=== PATIENT | male | born 1995 | race African-American/Black ===

== ENCOUNTER 2019-12-06 05:30 | Emergency (ER) | payer MEDICAID, SELFPAY ==
[2019-12-06 05:31] VITALS: BP 141/84; PULSE 118; RESP 20; TEMP 36.5; O2SAT 97; BMI 19.8
--- NOTE | 2019-12-06 05:32 | ED.VIS.GEN ---
History of Present Illness Chief Complaint: Overdose Informant: Patient Narrative: Stated he accidentally overdosed on a Percocet 30 he was given 2 doses of Narcan for agonal respirations. He then woke up and was combative. Brought in for further evaluation. Denies any other illicit drug use. Denies any alcohol usage. He is apologetic. Current severity is resolved. That was severe however. Past Medical History Primary Care Physician: NOT,DEFINED [Primary Care Provider] - Prior records reviewed: Yes Past Medical History: - - Reviewed Surgical History: - - Reviewed Alcohol: None Drugs: - - Occasional Percocet Review of Systems General: Denies: Chills, Fever, Sweats Eyes: Denies: Visual changes - bilaterally, Diplopia ENT: Denies: Rhinorrhea, Sore throat Cardiovascular: Denies: Chest pain, Palpitations Respiratory: Denies: Dyspnea, Cough, Dyspnea on exertion Gastrointestinal: Denies: Abdominal pain, Nausea, Vomiting, Diarrhea, Melena, Hematochezia Genitourinary: Denies: Dysuria, Hematuria, Frequency Musculoskeletal: Denies: Back pain, Extremity Pain Skin: Denies: Rash, Wounds Neurological: Denies: Headache, Weakness, Numbness Physical Exam General: Well nourished, Well developed, No Acute Distress Head: Normocephalic, Atraumatic Eyes: Perrl, EOMI ENT: Moist mucous membranes, No rhinorrhea Neck: Supple, Nontender Cardiovascular: Regular rate, No murmurs, Tachycardia Respiratory: No distress, CTA bilaterally, Chest nontender Abdomen: Soft, Nontender, Nondistended, Normal bowel sounds Back: Nontender, Normal Inspection Extremities: Nontender, No edema Skin: Normal color, No rash Neurological: Alert, Oriented x3, Cranial nerves II-XII grossly intact, Normal Strength, Normal Sensation Psychological: Normal affect, Normal Mood Diagnostic/Tx/Re-eval - Medical Decision Making Can reverses narcotic overdose. He will be monitored and discharged upon sobriety ED Disposition - Plan for ED Patient: Disposition: Home or Assisted Living Diagnosis: Narcotic overdose Instructions: ED Overdose Opiate Referrals: [facility] [STAFF PHYSICIAN] -
[2019-12-06 05:36] VITALS: RESP 18
[2019-12-06 05:55] VITALS: O2SAT 92
--- NOTE | 2019-12-06 05:55 | ED.RN ---
PT TELLS RN THAT HE HASN'T TAKEN ANY MEDIATIONS ONE MINUTE THEN STATES HE DIDN'T MEAN TO DO IT.
[2019-12-06 07:51] VITALS: BP 110/69; PULSE 107; RESP 18; O2SAT 95
[2019-12-06 09:18] VITALS: BP 108/62; PULSE 101; RESP 18; O2SAT 96
--- NOTE | 2019-12-06 10:53 | ED.RN ---
TALKED WITH PT MOTHER ON THE PHONE. SHE WILL BE ENROUTE TO FRONT CLERK-PT AWAKE DRINKING A POP
[2019-12-06 11:25] VITALS: BP 98/42; PULSE 100; RESP 18; O2SAT 100
== END 2019-12-06 11:27 | disposition home or self-care (01) ==
LOC: ED 10:59
PROVIDERS: Emergency Provider Emergency Medicine
DX: T40.2X1A Poisoning by other opioids, accidental (unintentional), initial encounter (principal); Y92.9 Unspecified place or not applicable
CPT/HCPCS: 99285; J7030; A4216

== ENCOUNTER → 2020-02-01 20:57 | Emergency (ER) | payer MEDICAID, SELFPAY ==
[2020-02-01 20:57] VITALS: BP 156/100; PULSE 116; RESP 28; TEMP 36.4; O2SAT 99; BMI 19.1
--- NOTE | 2020-02-01 21:02 | ED.DCSUM_ITS ---
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 Location: Unknown Current Severity: Mild Maximum Severity: Severe Worsened by: Ejected illicit drugs Relieved by: Improved with Narcan Associated Symptoms: Patient has shakes Narrative: Patient is 24-year-old male who admits to IV drug use for approximate 1 year. He denies history of HIV. He has been administered Narcan 3 times prior to today. He denies headache. Eyes visual, ocular auditory symptoms. Nuys neck pain. He denies history of rheumatic fever, heart murmur or SBE. He denies any infection at injection sites. He denies nausea, vomiting diarrhea. He was offered detox/help. He states he would think about it. Prior similar symptoms: Yes Recent Illness/Hospitalization: Yes - Past Medical History (1) Opiate abuse, continuous Status: Acute Past Medical History - Allergies and Home Meds Allergies/Adverse Reactions: Allergies No Known Allergies Allergy (Verified 02/01/20 21:03) Primary Care Physician: Care Physician,No Primary [Primary Care Provider] - Prior records reviewed: Yes Surgical History: no surgical history, - - Reviewed Lives: Alone Smoking Status: Current every day smoker Drugs: Heroin Review of Systems General: Reports: Chills, Malaise. Denies: Fever, Subjective, Sweats, Weight loss Eyes: Denies: Visual changes - bilaterally, Blurred Vision - bilaterally ENT: Denies: Rhinorrhea, Sore throat Cardiovascular: Denies: Chest pain, Palpitations Respiratory: Denies: Dyspnea, Cough, Dyspnea on exertion Gastrointestinal: Reports: Abdominal pain, Nausea. Denies: Vomiting, Diarrhea Genitourinary: Denies: Dysuria, Hematuria, Frequency Musculoskeletal: Denies: Myalgias, Arthralgias, Neck pain, Back pain, Swelling, Extremity Pain Skin: Denies: Rash, Wounds Neurological: Denies: Headache, Weakness Hematologic: Denies: Easy bruising, Easy bleeding Physical Exam Inital Vital Signs reviewed: Yes General: Well nourished, Well developed, - - Patient is restless. Head: Normocephalic, Atraumatic Eyes: Perrl, EOMI. Negative for: Pale conjunctiva, Scleral icterus ENT: Moist mucous membranes, Sinus tenderness Neck: Supple, Nontender, No lymphadenopathy Cardiovascular: Regular rate, Regular rhythm, No murmurs, Normal S1 Respiratory: No distress, CTA bilaterally, Chest nontender Rectal: Deferred Back: Nontender, Normal Inspection Extremities: Nontender, No edema Skin: Normal color, No rash Neurological: Alert, Oriented x3, Cranial nerves II-XII grossly intact, Normal Strength, Normal Sensation Psychological: Agitated Diagnostic/Tx/Re-eval - Medical Decision Making We will observe patient for 60 minutes. He will placed on the monitor. Will discuss outpatient treatment versus inpatient treatment if he is willing. I was informed by nursing staff his respirations decreased to 5. Verbal order was given for additional dose of Narcan. He did not desaturate. Will observe for an additional hour. Job either Patient was reassessed at 2310. Respiratory rate is 16. Pulse ox 100%. He was asleep. He awoke with gentle tactile stimulus. He declined detox. We will give him [facility]. ED Disposition - Plan for ED Patient: Disposition: Home or Assisted Living Diagnosis: Opiate or related narcotic overdose Instructions: ED Abuse Narcotic, ED Overdose Opiate Referrals: Care Physician,No Primary [Primary Care Provider] - [facility] [STAFF PHYSICIAN] - As soon as possible
--- NOTE | 2020-02-01 21:15 | ED.RN ---
MOTHER CALLED PER PT REQUEST, PT GAVE THIS RN PERMISSION TO TELL MOTHER REASON FOR VISIT.
[2020-02-01] MEDS: Naloxone 2 MG/2 ML Syringe NS (21:50)
== END | disposition home or self-care (01) ==
LOC: ED 23:15
PROVIDERS: Emergency Provider Emergency Medicine
DX: T40.601A Poisoning by unspecified narcotics, accidental (unintentional), initial encounter (principal); R10.9 Unspecified abdominal pain; R11.0 Nausea; Y92.9 Unspecified place or not applicable; F17.200 Nicotine dependence, unspecified, uncomplicated
CPT/HCPCS: 99283; 99285

== ENCOUNTER 2020-02-26 22:22 | Inpatient (IN) | payer MEDICAID, SELFPAY ==
[2020-02-01 20:57] VITALS: BMI 19.1
[2020-02-26 22:23] VITALS: BP 135/95; PULSE 150; RESP 15; TEMP 36.3; O2SAT 100; BMI 19.9
[2020-02-26 22:55] VITALS: BP 123/81; PULSE 143; RESP 20; TEMP 37.5; O2SAT 100
[2020-02-26] MEDS: 0.9% Normal Saline 1,000 ML 999 ML IV (23:00)
[2020-02-26] MEDS: Acetaminophen 325 MG Tablet 650 MG PO (23:10)
[2020-02-26 23:33] LABS: Absolute Lymphocyte Count 2.94 X10^3/uL (0.83-4.51); Absolute Neutrophil Count 8.4 X10^3/uL (2.0-7.7); Basophil# 0.02 X10^3/uL; Basophil% 0.2 % (0-1); Eosinophil# 0.09 X10^3/uL; Eosinophils% 0.7 % (0-5); Hemoglobin 11.4 g/dL (13.0-16.5); Lymphocyte # 2.94 X10^3/ul (4.0); Lymphocyte % 23.8 % (19-41); Mean Corp Hgb Conc 31.7 g/dL (32-36); Mean Corpuscular Hgb 26.7 pg (27.0-32.0); Mean Corpuscular Volume 84.3 fL (80-94); Monocyte# 0.75 X10^3/uL; Monocyte% 6.1 % (0-10); NRBC Flagged by Analyzer 0 % (0-5); Neutrophil # 8.42 X10^3/uL (2.7-7.7); Neutrophil % 68.1 % (47-70); Platelet Count 347 K/mm3 (150-450); RBC Distribution Width CV 13.6 % (11.6-14.6); RBC Distribution Width SD 42.3 fl (35.1-43.9); Red Blood Count 4.27 M/mm3 (4.6-6.2); White Blood Count 12.4 K/mm3 (4.4-11.0)
[2020-02-26 23:35] LABS: ALB/GLOB Ratio 0.6 RATIO (0.9-2.4); AST(SGOT) 13 U/L (15-37); Alanine Aminotransfer ALT/SGPT 25 U/L (16-61); Albumin, Serum 3.2 g/dL (3.2-5.0); Alkaline Phosphatase 108 U/L (45-117); Anion Gap 7 (5-15); BUN 12 mg/dL (7-18); BUN/Creat Ratio 10.9 RATIO (10-20); Calcium,Total 9.3 mg/dL (8.5-10.1); Chloride 99 mmol/L (98-107); EST Glomerular Filtration Rate 87 mL/min (>60); Est Glom Filt Rate - Afr Amer 105 mL/min (>60); Estimated Creatinine Clearance 89.69 ml/min; Globulin 5.1 g/dL (2.2-4.2); Glucose 129 mg/dL (74-106); Potassium 3.6 mmol/L (3.5-5.1); Protein, Total 8.3 g/dL (6.4-8.2); Sodium Level 136 mmol/L (136-145)
[2020-02-26 23:38] LABS: Lactic Acid 1.6 mmol/L (0.4-1.9)
[2020-02-26] MEDS: Vancomycin IV 1,000 MG/200 ML BAG 200 MG IV (23:51)
[2020-02-26] MEDS: HYDROmorphone 1 MG/ML Syringe IV (23:51)
[2020-02-26 23:53] VITALS: BP 126/84; PULSE 122; RESP 17; RESP 18; TEMP 37.3; O2SAT 100; O2SAT 98
[2020-02-27] VITALS (19 sets, daily range): BP systolic 91–139; BP diastolic 51–99; PULSE 64–122; RESP 14–18; TEMP 36.5–37.4; O2SAT 98–100; BMI 18.7; BMI 18.8
[2020-02-27 00:01] LABS: Prothrombin Time (Protime)PT. 13.1 SECONDS (11.7-14.9)
[2020-02-27 00:02] LABS: Partial Thromboplast Time 30.4 Seconds (24.1-36.2)
--- NOTE | 2020-02-27 00:10 | ED.DCSUM_ITS ---
History of Present Illness Chief Complaint: Abscess Narrative: Patient presenting for evaluation secondary to a right forearm abscess. Patient does have a history of IV drug abuse. Patient states that he does not inject into his right arm as he is right-handed. Patient's last injection was couple days ago. He states that over the course of the last 3 days or so he has developed an abscess on the volar portion of his right forearm. Swelling is progressively gotten worse, now it is associated with moderate pain. Pain is worse with palpation and movement. Sharp. He denies any constitutional symptoms such as fever. He denies any chest pain. Denies any shortness of breath. Review of systems otherwise negative. Past Medical History - Allergies and Home Meds Allergies/Adverse Reactions: Allergies No Known Allergies Allergy (Verified 02/26/20 22:25) Primary Care Physician: Care Physician,No Primary [Primary Care Provider] - Prior records reviewed: Yes Past Medical History: - - History of IV drug abuse Surgical History: no surgical history, - - Reviewed Lives: With Family Smoking Status: Current every day smoker Alcohol: Occasional Drugs: Heroin Review of Systems All systems negative except as indicated General: Denies: Chills, Fever, Sweats Eyes: Denies: Visual changes - bilaterally, Diplopia ENT: Denies: Rhinorrhea, Sore throat Cardiovascular: Denies: Chest pain, Palpitations Respiratory: Denies: Dyspnea, Cough, Dyspnea on exertion Gastrointestinal: Denies: Abdominal pain, Nausea, Vomiting, Diarrhea, Melena, Hematochezia Genitourinary: Denies: Dysuria, Hematuria, Frequency Musculoskeletal: Denies: Back pain, Extremity Pain Skin: Reports: - - Abscess and rash on the right forearm Neurological: Denies: Headache, Weakness, Numbness Physical Exam Vital Signs/Narrative: Vital Signs Temp Pulse Resp BP Pulse Ox 02/27/20 00:06 99.1 F 02/26/20 23:53 99.1 F 122 H 18 126/84 H 100 02/26/20 22:55 99.5 F H 143 H 20 H 123/81 H 100 02/26/20 22:23 97.4 F L 150 H 15 135/95 H 100 Inital Vital Signs reviewed: Yes Right Forearm: - - Examination of the right forearm shows a sizable area of fluctuance over the radial portion of the mid forearm with surrounding erythema. No lymphangitic streaking. Tenderness is noted in the area. Induration surrounding the fluctuance is noted. No subcutaneous emphysema. Normal range of motion Right Hand: - - Bilaterally no evidence of splinter hemorrhages, [place] nodes, or [place] lesions General: Well nourished, Well developed Head: Normocephalic, Atraumatic Eyes: Perrl, EOMI ENT: No Trauma, Moist Mucous Membranes Neck: Nontender, Full ROM Cardiovascular: Regular rhythm, Tachycardia, Murmur, - - 1 out of 6 systolic flow murmur noted. 2+ radial pulses. Respiratory: No distress, CTA bilaterally, Chest nontender Abdomen: Soft, Nontender, Nondistended, Normal bowel sounds Skin: Normal color Neurological: Alert, Oriented x3, Cranial nerves II-XII grossly intact, Normal Strength, Normal Sensation Psychological: Normal affect Diagnostic/Tx/Re-eval Laboratory Data 02/26/20 02/26/20 02/26/20 23:00 23:00 23:00 WBC 12.4 H RBC 4.27 L Hgb 11.4 L Hct 36.0 L MCV 84.3 MCH 26.7 L MCHC 31.7 L RDW Std Deviation 42.3 RDW Coeff of Sohail 13.6 Plt Count 347 MPV 10.0 Immature Gran % (Auto) 1.100 H Neut % (Auto) 68.1 Lymph % (Auto) 23.8 Fisher % (Auto) 6.1 Eos % (Auto) 0.7 Baso % (Auto) 0.2 Absolute Neuts (auto) 8.4 H Absolute Lymphs (auto) 2.94 Nucleated RBC % 0 PT INR APTT Sodium 136 Potassium 3.6 Chloride 99 Carbon Dioxide 30.0 Anion Gap 7 BUN 12 Creatinine 1.10 Estim Creat Clear Calc 89.69 Est GFR (MDRD) Af Amer 105 Est GFR (MDRD) Non-Af 87 BUN/Creatinine Ratio 10.9 Glucose 129 H Lactic Acid 1.6 Calcium 9.3 Total Bilirubin 0.20 AST 13 L ALT 25 Alkaline Phosphatase 108 Total Protein 8.3 H Albumin 3.2 Globulin 5.1 H Albumin/Globulin Ratio 0.6 L 02/26/20 23:37 WBC RBC Hgb Hct MCV MCH MCHC RDW Std Deviation RDW Coeff of Sohail Plt Count MPV Immature Gran % (Auto) Neut % (Auto) Lymph % (Auto) Fisher % (Auto) Eos % (Auto) Baso % (Auto) Absolute Neuts (auto) Absolute Lymphs (auto) Nucleated RBC % PT 13.1 INR 1.0 APTT 30.4 Sodium Potassium Chloride Carbon Dioxide Anion Gap BUN Creatinine Estim Creat Clear Calc Est GFR (MDRD) Af Amer Est GFR (MDRD) Non-Af BUN/Creatinine Ratio Glucose Lactic Acid Calcium Total Bilirubin AST ALT Alkaline Phosphatase Total Protein Albumin Globulin Albumin/Globulin Ratio - Medical Decision Making Patient presented secondary to a forearm abscess. He was profoundly tachycardic and likely septic, I was concerned for the possibility of bacteremia and possibly even endocarditis given his flow murmur, so a total of 3 blood cultures were obtained prior to the patient receiving vancomycin. Fluids and Tylenol were also ordered. Blood pressure remained stable, heart rate did decrease to the 120s. Lactic acid was negative white count was elevated 12. Patient's forearm was superficially incised and drained as noted in the procedure note. Patient will be admitted for further treatment of sepsis and potential further washout of the forearm. Procedures Procedure(s): Patient was consented for incision and drainage of the right forearm. The area was prepped with chlorhexidine was draped in sterile fashion. A total of 15 cc of 1% lidocaine was used in a field block and good anesthesia was obtained. A cruciate incision was made over top of the greatest area of fluctuance using care to not probe too deeply with the 11 blade. Copious amounts of purulent material were then expressed. Loculations were gently broken with hemostats. Wound was held open and irrigated with hemostats, and then absorbent dressing was placed over top. Patient tolerated this with minimal difficulty. ED Disposition - Plan for ED Patient: Disposition: Acute Care Hospital [facility] Diagnosis: Sepsis, Abscess of right forearm, IV drug abuse
--- NOTE | 2020-02-27 00:47 | PCM.HP.STD ---
Problem List (1) Abscess of right forearm Status: Acute (2) IV drug abuse Status: Acute (3) Sepsis Status: Acute (4) Opiate abuse, continuous Status: Acute History of Present Illness Date of Admission: 02/27/20 Chief Complaint: right forearm swelling The patient is a 24 year old M with a significant history of IV drug use and tobacco abuse who presents to the emergency department with swelling of his right forearm. His swelling developed about 2 to 3 days ago; and it has progressively been worsening. Associated with symptoms is pain around the swelling. He denies any fever or chills. At emergency department patient had an incision and drainage of the swelling. Past Medical History Medical History: Medical History (Last Reviewed 02/27/20 @ 01:[address] Edwin Lala MD) IV drug user (Acute) F19.90 Allergies No Known Allergies Allergy (Verified 02/26/20 22:25) Home Medications: Ambulatory Orders Medication Instructions Recorded NK 12/06/19 Surgical History: herniorrhaphy, - Lives: With Family Smoking Status: Current every day smoker Tobacco Use: Cigarettes Alcohol: Occasional Drugs: Heroin - *Family History Maternal History Items: - - Denies knowledge of maternal medical history Paternal History Items: - - Denies knowledge of paternal medical history Review of Systems Constitutional: Denies: Chills, Fever, Weight Change HEENT: Denies: Head Aches, Sinus Congestion, Sinus Drainage Cardiovascular: Denies: Chest Pain, Palpitations Respiratory: Denies: Cough, Shortness of breath at rest, Sputum production Gastrointestinal: Denies: Abdominal Pain, Nausea, Vomiting Genitourinary: Denies: Dysuria Musculoskeletal: Denies: Joint Pain, Joint Tenderness Skin: Denies: Rash, Wounds Neurological: Denies: Numbness, Tingling, Focal weakness Psychiatric: Denies: Anxiety, Depression, Homicidal Ideations, Suicidal Ideations Hematologic/ Lymphatic: Denies: Easy Bruising, Easy Bleeding VTE Information - Inpt Only VTE Present on Admission: No VTE Mechan Device Prophylaxis: None VTE Pharm Prophylaxis ordered?: No Reason prophylaxis not ordered:: Treatment Not Indicated - Low risk encourage ambulate. Patient Problems: Active and Suspected Problems Opiate abuse, continuous (Acute) Sepsis (Acute) Abscess of right forearm (Acute) IV drug abuse (Acute) - Physical Exam Vitals/I&O's: Vital Signs Temp Pulse Resp BP Pulse Ox 99.1 F 122 H 15 126/84 H 100 02/27/20 00:17 02/27/20 00:17 02/27/20 00:17 02/27/20 00:17 02/27/20 00:17 Oxygen Delivery Method Room Air Weight: 61.235 kg Body Mass Index (BMI) 19.9 Intake and Output for Last 24 Hours 02/25/20 02/26/20 02/27/20 23:59 23:59 23:59 Intake Total 1000 / 1000 Balance 1000 / 1000 General: Alert, Oriented x3, Cooperative HEENT: Atraumatic, PERRLA, EOMI, Normocephalic Neck: Supple, No JVD, Negative Carotid Bruits Lungs: Clear to auscultation, Normal air movement, No rhonchi, No wheeze, No rales Cardiovascular: Regular rate, No murmurs Abdomen: Bowel Sounds Present, Soft, Non Tender Extremities: No edema, Capillary Refill Less than 3 Seconds, - - Abscess to right forearm with Sanguinous drainage; tender. Skin: No rashes, No breakdown Musculoskeletal: No Tenderness to Palpation of Joints or Extremities Neurological: Cranial nerves II-XII grossly intact Psych/Mental Status: Normal Affect, Appropriate Laboratory Results 02/26/20 23:00: WBC 12.4 H, RBC 4.27 L, Hgb 11.4 L, Hct 36.0 L, MCV 84.3, MCH 26.7 L, MCHC 31.7 L, RDW Std Deviation 42.3, RDW Coeff of Sohail 13.6, Plt Count 347, MPV 10.0, Immature Gran % (Auto) 1.100 H, Neut % (Auto) 68.1, Lymph % (Auto) 23.8, [place] % (Auto) 6.1, Eos % (Auto) 0.7, Baso % (Auto) 0.2, Absolute Neuts (auto) 8.4 H, Absolute Lymphs (auto) 2.94, Nucleated RBC % 0 02/26/20 23:00: Sodium 136, Potassium 3.6, Chloride 99, Carbon Dioxide 30.0, Anion Gap 7, BUN 12, Creatinine 1.10, Estim Creat Clear Calc 89.69, Est GFR (MDRD) Af Amer 105, Est GFR (MDRD) Non-Af 87, BUN/Creatinine Ratio 10.9, Glucose 129 H, Calcium 9.3, Total Bilirubin 0.20, AST 13 L, ALT 25, Alkaline Phosphatase 108, Total Protein 8.3 H, Albumin 3.2, Globulin 5.1 H, Albumin/Globulin Ratio 0.6 L 02/26/20 23:00: Lactic Acid 1.6 02/26/20 23:37: PT 13.1, INR 1.0, APTT 30.4 Assessment/Plan All Active Problems Opiate abuse, continuous (Acute) Sepsis (Acute) Abscess of right forearm (Acute) IV drug abuse (Acute) IV drug user (Acute) Sepsis secondary to right forearm abscess Abscess was I&Ded at emergency department. However patient may need a further surgical intervention of the area. Will order CT of right forearm. Vancomycin was given at the emergency department. Will start patient on vancomycin and cefazolin Blood culture obtained at the emergency department; follow Up follow-up Gram stain and wound culture of drainage from abscess. Lactic acid was normal. Trend CBC and BMP. Plastic surgery consult. Heart murmur ED doc reported murmur on examination. Likely a flow murmur in the setting of tachycardia. However in the setting of IV drug use echocardiogram ordered. Blood culture x3 was obtained in the emergency department. IV drug use Patient shoots heroin in methamphetamine. Declined Subutex for heroin withdrawal. Tobacco abuse Counseled Declined nicotine patch DVT prophylaxis Encouraged to ambulate. Inpatient E&M: 75502 Init Hosp L3
--- NOTE | 2020-02-27 01:15 | ECHOD_ITS ---
Reason For Study: Murmur, R/O Endocarditis Procedure This was a 2D Doppler, Color Flow transthoracic echocardiogram. Exam performed portable in patient room. Left Ventricle Normal LV size. Left ventricular systolic function is lower limits of normal. The estimated ejection fraction is 53 %. No regional wall motion abnormalities noted. Right Ventricle Normal RV size. Normal systolic function. Atria Normal left atrium. Normal right atrium. Mitral Valve Normal mitral valve. Tricuspid Valve Normal tricuspid valve. Trivial tricuspid valve insufficiency. Aortic Valve Normal aortic valve. Trisinus/trileaflet aortic valve. Pulmonic Valve Normal pulmonic valve. Great Vessels Normal aortic root. The pulmonary artery is normal size. Normal inferior vena cava. Pericardium/Pleural No pericardial effusion. MMode/2D Measurements & Calculations LVIDd: 4.3 cm IVSd: 1.0 cm Ao root diam: 2.5 cm LVIDs: 2.7 cm LVPWd: 1.2 cm LA dimension: 2.7 cm RVDd: 3.5 cm FS: 36.5 % LAV(MOD-sp4): 26.3 ml LA A4 area: 12.8 cm2 RA A4 area: 13.3 cm2 Time Measurements MV dec time: 0.26 sec Doppler Measurements & Calculations MV E max bharath: 87.6 cm/sec Lat Peak E' Bharath: 16.9 cm/sec Med Peak E' Bharath: 11.4 cm/sec MV A max bharath: 65.7 cm/sec E/E' lat: 5.2 E/E' med: 7.7 MV E/A: 1.3 MV V2 max: 128.8 cm/sec MV P1/2t max bharath: 128.8 cm/sec Ao V2 max: 165.2 cm/sec MV max P.6 mmHg MV P1/2t: 75.5 msec Ao max P.9 mmHg MV V2 mean: 55.9 cm/sec MV dec slope: 499.4 cm/sec2 MV mean P.6 mmHg MVA(P1/2t): 2.9 cm2 MV V2 VTI: 35.1 cm LV V1 max: 143.4 cm/sec PA V2 max: 97.3 cm/sec LV V1 max P.2 mmHg Interpretation Summary Normal LV size. Left ventricular systolic function is lower limits of normal. The estimated ejection fraction is 53 %. Structurally normal valves. There is no evidence of a mass or vegetation. This does not rule out endocarditis. Ordering Physician: Edwin Lala Referring Physician: Edwin Lala Performed By: Vincent Wagoner RCS
--- NOTE | 2020-02-27 01:15 | CT_ITS ---
HISTORY: MID RT FOREARM CELLULITIS VS ABSCESS,PAIN RT FOREARM X 2-3 DAYSHX:HEP C,IV DRUG USE TECHNIQUE: CT of the right forearm was performed without and with 100 mL Isovue-370 contrast. 2D reformats were performed by the technologist. Number of images including paperwork: [phone]. A radiation dose optimization technique was used for this scan. COMPARISON: None FINDINGS: BONES: No acute fracture. JOINTS: No subluxation. SOFT TISSUES: Diffuse soft tissue edema. Rim-enhancing fluid collection with overlying skin defect is noted in the soft tissues of the mid forearm along the radial aspect measuring 4 x 1.7 x 3.8 cm with overlying skin defect. Adjacent skin thickening and stranding. FOREIGN BODY: No radiopaque foreign body. CT/Extremity Upper W/WO Contrast IMPRESSION: Rim-enhancing fluid collection in the radial aspect of the midforearm concerning for abscess. Surrounding skin thickening and stranding consistent with cellulitis. Diffuse soft tissue edema elsewhere in the right forearm. Individualized dose optimization techniques were used for this CT. at 0505 Reported and signed by: Sonia Bedoya MD Electronically Signed: Sonia Bedoya MD at 5:05 EST Tel , Service support ,
[2020-02-27] MEDS: 0.9% Normal Saline 1,000 ML 75 ML IV (01:40)
[2020-02-27] MEDS: Cefazolin 2 GM in 0.9% Normal Saline 100 ML IV ×4 (01:41→22:20)
--- NOTE | 2020-02-27 01:51 | PCM.RX.CS ---
Consult Pharmacy has been consulted to manage selected antiobiotic: Vancomycin Type of Consult: New start Suspected Infection: Sepsis Labs: Sodium 136 mmol/L (136-145) 02/26/20 23:00 Potassium 3.6 mmol/L (3.5-5.1) 02/26/20 23:00 Chloride 99 mmol/L (98-107) 02/26/20 23:00 Carbon Dioxide 30.0 mmol/L (21.0-32.0) 02/26/20 23:00 Anion Gap 7 (5-15) 02/26/20 23:00 BUN 12 mg/dL (7-18) 02/26/20 23:00 Creatinine 1.10 mg/dL (0.70-1.30) 02/26/20 23:00 Est GFR (MDRD) Af Amer 105 mL/min (>60) 02/26/20 23:00 Est GFR (MDRD) Non-Af 87 mL/min (>60) 02/26/20 23:00 BUN/Creatinine Ratio 10.9 RATIO (10-20) 02/26/20 23:00 Glucose 129 mg/dL (74-106) H 02/26/20 23:00 Estimated Creatinine Clearance: 84.36 Goal Trough: 10-15 mcg/mL Pharmacy Plan for Drug Dosing: Pharmacy Service will continue to monitor and adjust dosing as required. Medications Vancomycin HCl 750 mg/ Sodium (Chloride) 265 mls @ 250 mls/hr IV Q12H LAURA Discontinued Medications Vancomycin IV Pharmacy to Dose (1 ea/ Sodium Chloride) 500 mls @ 250 mls/hr IV X1 PRN; Protocol PRN Reason: Rx to Dose Follow-Up Labs: Trough Vancomycin Labs to be done on [date and time ordered]: 02/27 @ 1136
[2020-02-27 05:33] LABS: Absolute Lymphocyte Count 2.73 X10^3/uL (0.83-4.51); Absolute Neutrophil Count 6.9 X10^3/uL (2.0-7.7); Basophil# 0.02 X10^3/uL; Basophil% 0.2 % (0-1); Eosinophil# 0.14 X10^3/uL; Eosinophils% 1.3 % (0-5); Hematocrit 33.9 % (40-54); Hemoglobin 10.8 g/dL (13.0-16.5); Lymphocyte # 2.73 X10^3/ul (4.0); Lymphocyte % 25.6 % (19-41); Mean Corp Hgb Conc 31.9 g/dL (32-36); Mean Corpuscular Hgb 27.3 pg (27.0-32.0); Mean Corpuscular Volume 85.8 fL (80-94); Mean Platelet Vol. 10.1 fl (6.2-12.0); Monocyte# 0.83 X10^3/uL; Monocyte% 7.8 % (0-10); NRBC Flagged by Analyzer 0 % (0-5); Neutrophil # 6.91 X10^3/uL (2.7-7.7); Neutrophil % 64.7 % (47-70); Platelet Count 296 K/mm3 (150-450); RBC Distribution Width CV 13.6 % (11.6-14.6); RBC Distribution Width SD 43.2 fl (35.1-43.9); Red Blood Count 3.95 M/mm3 (4.6-6.2); White Blood Count 10.7 K/mm3 (4.4-11.0)
[2020-02-27 05:59] LABS: Anion Gap 6 (5-15); BUN 9 mg/dL (7-18); BUN/Creat Ratio 10.6 RATIO (10-20); Calcium,Total 8.4 mg/dL (8.5-10.1); Chloride 102 mmol/L (98-107); Creatinine, Serum 0.85 mg/dL (0.70-1.30); EST Glomerular Filtration Rate 117 mL/min (>60); Est Glom Filt Rate - Afr Amer 141 mL/min (>60); Estimated Creatinine Clearance 109.18 ml/min; Glucose 95 mg/dL (74-106); Potassium 3.9 mmol/L (3.5-5.1); Sodium Level 134 mmol/L (136-145)
--- NOTE | 2020-02-27 07:35 | PCM.PN.BLA ---
Progress Note 24-year-old male with past medical history of IV drug use, nicotine dependence who was admitted with right forearm swelling and found to have an abscess. CT of the upper extremity showed a rim-enhancing fluid collection in the radial aspect of the midforearm concerning for abscess Patient's vitals has been stable No fevers. WBC count improved from 12.4-10.7 On IV vancomycin and cefazolin Going for surgery today. STROKE Vital Signs/Narrative: Vital Signs Pulse 02/27/20 04:17 101 H
--- NOTE | 2020-02-27 09:18 | PCM.CONS.GEN ---
Reason for Consult Date of Consultation: 02/27/20 Reason for Consultation: IV drug abuse abscess right volar radial mid forearm. REFERRING PHYSICIAN: Dr. Lala. RADIOTELEGRAPHIST: Dr. Valerio. History of Present Illness: The patient is a 24 year old M with a significant history of IV drug use and tobacco abuse who presents to the emergency department with increased pain and swelling of his right forearm. His swelling developed about 2 to 3 days ago; and it has progressively been worsening. He denies any fever or chills. Patient is right hand dominant. In the ED, an incision and drainage was performed. He was placed on Vancomycin and Cefazolin. A CT was done which showed rim-enhancing fluid collection in the radial aspect of the midforearm concerning for abscess. Surrounding skin thickening and stranding consistent with cellulitis. Diffuse soft tissue edema elsewhere in the right forearm. I was asked to evaluate this patient for surgical options for treatment. Past Medical History Past Medical History (Chronic Problems): Chronic Problems Smoker (Chronic) Medical History: Medical History (Last Reviewed 02/27/20 @ 01:[address] Edwin Lala MD) IV drug user (Acute) F19.90 Allergies No Known Allergies Allergy (Verified 02/27/20 01:48) Home Medications: Ambulatory Orders Medication Instructions Recorded NK 12/06/19 Surgical History: herniorrhaphy, - Lives: With Family Smoking Status: Current every day smoker Tobacco Use: Cigarettes Alcohol: Occasional Drugs: Heroin, - - Methamphetamine - *Family History Maternal History Items: - - Denies knowledge of maternal medical history Paternal History Items: - - Denies knowledge of paternal medical history Review of Systems Comment: Constitutional: Denies: Chills, Fever, Weight Change. HEENT: Denies: Head Aches, Sinus Congestion, Sinus Drainage. Cardiovascular: Denies: Chest Pain, Palpitations. Respiratory: Denies: Cough, Shortness of breath at rest, Sputum production. Gastrointestinal: Denies: Abdominal Pain, Nausea, Vomiting. Genitourinary: Denies: Dysuria. Musculoskeletal: Denies: Joint Pain, Joint Tenderness. Skin: Denies: Rash, Wounds. Neurological: Denies: Numbness, Tingling, Focal weakness. Psychiatric: Denies: Anxiety, Depression, Homicidal Ideations, Suicidal Ideations. Hematologic/ Lymphatic: Denies: Easy Bruising, Easy Bleeding Patient Problems: Active and Suspected Problems Opiate abuse, continuous (Acute) Sepsis (Acute) Abscess of right forearm (Acute) IV drug abuse (Acute) - Physical Exam Vitals/I&O's: General: Alert, Oriented x3, Cooperative HEENT: PERRLA, EOMI. Neck: Supple, Nontender. No cervical adenopathy. Lungs: Clear to auscultation. Cardiovascular: Regular rate, regular rhythm. Abdomen: Soft, Nondistended. Extremities: Mild swelling right forearm. On the volar radial aspect mid right forearm is an area of induration and tenderness. Previous I&D noted. Purulent drainage noted. Measures 5 x 6 cm. No sensory deficits in his fingers. Radial pulses are palpable. No axillary adenopathy. Fingers are warm with good capillary refill. Patient is right hand dominant. Neurological: Cranial nerves II-XII grossly intact Psych/Mental Status: Normal Affect, Appropriate Vital Signs Temp Pulse Resp BP Pulse Ox 97.7 F L 105 H 16 91/63 100 02/27/20 08:02 02/27/20 08:30 02/27/20 08:02 02/27/20 08:02 02/27/20 08:02 Oxygen Delivery Method Room Air Weight: 126 lb 15.78 oz Body Mass Index (BMI) 18.7 Intake and Output for Last 24 Hours 02/25/20 02/26/20 02/27/20 23:59 23:59 23:59 Intake Total 1833.75 / 1833.75 Balance 1833.75 / 1833.75 Laboratory Results 02/26/20 23:00: WBC 12.4 H, RBC 4.27 L, Hgb 11.4 L, Hct 36.0 L, MCV 84.3, MCH 26.7 L, MCHC 31.7 L, RDW Std Deviation 42.3, RDW Coeff of Sohail 13.6, Plt Count 347, MPV 10.0, Immature Gran % (Auto) 1.100 H, Neut % (Auto) 68.1, Lymph % (Auto) 23.8, [place] % (Auto) 6.1, Eos % (Auto) 0.7, Baso % (Auto) 0.2, Absolute Neuts (auto) 8.4 H, Absolute Lymphs (auto) 2.94, Nucleated RBC % 0 02/26/20 23:00: Sodium 136, Potassium 3.6, Chloride 99, Carbon Dioxide 30.0, Anion Gap 7, BUN 12, Creatinine 1.10, Estim Creat Clear Calc 89.69, Est GFR (MDRD) Af Amer 105, Est GFR (MDRD) Non-Af 87, BUN/Creatinine Ratio 10.9, Glucose 129 H, Calcium 9.3, Total Bilirubin 0.20, AST 13 L, ALT 25, Alkaline Phosphatase 108, Total Protein 8.3 H, Albumin 3.2, Globulin 5.1 H, Albumin/Globulin Ratio 0.6 L 02/26/20 23:00: Lactic Acid 1.6 02/26/20 23:37: PT 13.1, INR 1.0, APTT 30.4 02/27/20 04:55: WBC 10.7, RBC 3.95 L, Hgb 10.8 L, Hct 33.9 L, MCV 85.8, MCH 27.3, MCHC 31.9 L, RDW Std Deviation 43.2, RDW Coeff of Sohail 13.6, Plt Count 296, MPV 10.1, Immature Gran % (Auto) 0.400, Neut % (Auto) 64.7, Lymph % (Auto) 25.6, [place] % (Auto) 7.8, Eos % (Auto) 1.3, Baso % (Auto) 0.2, Absolute Neuts (auto) 6.9, Absolute Lymphs (auto) 2.73, Nucleated RBC % 0 02/27/20 04:55: Sodium 134 L, Potassium 3.9, Chloride 102, Carbon Dioxide 26.0, Anion Gap 6, BUN 9, Creatinine 0.85, Estim Creat Clear Calc 109.18, Est GFR (MDRD) Af Amer 141, Est GFR (MDRD) Non-Af 117, BUN/Creatinine Ratio 10.6, Glucose 95, Calcium 8.4 L Diagnostic Data Upper Extremity CT 02/27/20 01:15 IMPRESSION: Rim-enhancing fluid collection in the radial aspect of the midforearm concerning for abscess. Surrounding skin thickening and stranding consistent with cellulitis. Diffuse soft tissue edema elsewhere in the right forearm. Individualized dose optimization techniques were used for this CT. at 0505 Reported and signed by: Sonia Bedoya MD Electronically Signed: Sonia Bedoya MD at 5:05 EST Tel , Service support , Current Medications Acetaminophen (Acetaminophen 325 Mg Tablet) 650 mg PO Q6H PRN PRN PRN Reason: Pain Score 1-10/Temp > 100.7 F Sodium Chloride () 1,000 mls @ 75 mls/hr IV .[id number] LAURA Stop: 02/27/20 14:34 Last Infusion: 02/27/20 05:59 Dose: 75 mls/hr Documented by: Vancomycin IV Pharmacy to Dose (1 ea/ Sodium Chloride) 500 mls @ 250 mls/hr IV X1 PRN; Protocol PRN Reason: Rx to Dose Cefazolin Sodium 2 gm/ Sodium (Chloride) 110 mls @ 150 mls/hr IV Q8 LAURA Last Infusion: 02/27/20 05:59 Dose: Infused Documented by: Sodium Chloride () 250 mls @ 15 mls/hr IV .[id number] PRN PRN Reason: Saline Flush Sodium Chloride () 250 mls @ 15 mls/hr IV .[id number] PRN PRN Reason: Additional IVPB Infusion Vancomycin HCl (Vancomycin) 1,000 mg in 200 mls @ 200 mls/hr IV Q12H LAURA Melatonin (Melatonin 3 Mg Tablet) 3 mg PO QHS PRN PRN PRN Reason: INSOMNIA Nutritional Formula (Lactose Free) (Ensure Enlive 120 Ml Liquid) 120 ml PO 4X/DAY [facility] Last Admin: 02/27/20 08:04 Dose: Not Given Documented by: Ondansetron HCl (Ondansetron 4 Mg/2 Ml Vial) 4 mg IV Q8H PRN PRN PRN Reason: NAUSEA/VOMITING Sodium Chloride (0.9% Saline Lock 10 Ml Syringe) 10 - 40 ml IV UD PRN PRN Reason: SALINE FLUSH Assessment/Plan All Active Problems Methamphetamine abuse (Acute) Opiate abuse, continuous (Acute) Sepsis (Acute) Abscess of right forearm (Acute) IV drug abuse (Acute) IV drug user (Acute) 1. IV drug abuse abscess right volar radial mid forearm. 2. IV drug abuse with Heroin and Methamphetamine. 3. Opiate abuse. 4. IV drug user. 5. Sepsis. 6. Smoker. CT reviewed. Presence of an abscess right forearm. There may be muscle involvement. Continue Vancomycin and Cefazolin. Recommend operative intervention urgently today with surgical preparation right volar radial mid forearm with incision and drainage and excisional debridement IV drug abuse abscess. Will send tissue to Pathology for analysis and to Microbiology for culture. A positive culture will necessitate antibiotic therapy. With possible muscle involvement, there is concern about a possible necrotizing process. And he is right hand dominant. Surgery will be done under general anesthesia. Will leave the wound open and proceed with postop wound care with the VAC. After discharge will followup at the Wound Center. If there is a plateau in the healing process, can proceed with delayed closure with skin grafting. Anticipate increased metabolic demands from the infection. Will check a Prealbumin and encourage nutritional supplementation with protein to help the healing process. Patient understands that if the surgery is delayed 1-2 days, there is increased risk of a necrotizing process with muscle involvement that would increase the risk of stiffness and functional issues in his right hand and extremity which would be problematic since he is right hand dominant. Patient was informed of the risks and complications of the procedure including alternatives to surgery. These were discussed with the patient personally. Patient voices understanding and wishes to proceed. Some of the risks and complications that were discussed included but were not inclusive of failure to diagnose including symptom relief, pain, infection, numbness, stiffness, loss of digit, RSD (CRPS), need for further surgery, contracture, and wound healing problems. Encouraged patient to stop smoking as it may have deleterious effects on wound healing. Procedure Criteria Procedure Type: Elective COVID Risk Discussion: The surgeon/proceduralist and patient have discussed in detail the risk of exposure to and/or potential harm posed by the COVID-19 virus with having a surgery/procedure at this time versus the risk of delaying the surgery/procedure. It is not possible to know either the risk of delaying the surgery or procedure or chance of getting an infection with perfect accuracy, but a joint decision was made between the patient and the surgeon/proceduralist to proceed at this time with the scheduled surgery/procedure as indicated on the consent form. Inpatient E&M: 21198 Init Hosp L3 - -57 Modifier ICD-10 - L02.413, F19.10, F11.10, F15.10, F19.90, A41.9, F17.200
--- NOTE | 2020-02-27 09:55 | CASEMGMT ---
CANDELARIO HAWLEY Face to Face with patient for initial transition planning/care coordination assessment. RN MARLEEN introduced self and role at [facility]. Patient lying in bed, alert and oriented. Patient willing to participate in assessment and is able to answer all questions appropriately. Care providers, pharmacy, and demographics verified. Patient wishes to discharge home, will monitor for need for HHC pending wound care. Patient states he has no further needs or concerns at this time. CM to follow for discharge planning needs that may arise. PCP: No PCP, list provided to patient Specialists: None Preferred Pharmacy: [facility] Insurance: [facility] Prescription Benefit: yes Living Will/HPOA: none LNOK: Mother Living Arrangements: Patient lives with mother in a 2 story home with bed and bath on first floor. Patient states he is independent at home. Transportation: mother DME/HHC: patient denies DME or previous HHC. Disposition Plan: Patient to discharge home with family support and follow-up plans in place. Will monitor for need for HHC. Marleen MALLORY, RN, CM
--- NOTE | 2020-02-27 10:34 | CASEMGMT ---
Social work Note Pt has history of IV drug use. SW in to speak with pt. SW introduced self and role at [facility]. Pt is alert and orientated x3. Pt confirms the he uses drugs. Per H+P, pt uses heroin and meth. Pt states that he stopped using about 3 days ago. SW offered resources to pt. Pt denied. Pt states that he is already linked up with [facility]. Pt denied any MH history. Pt denied additional needs or concerns at this time. Marleen Paulson VIDEO SOFTWARE ENGINEER, WEBFED OFFSET PRESS OPERATOR
[2020-02-27] MEDS: Vancomycin IV 1,000 MG/200 ML BAG 200 MG IV ×2 (12:00→23:56)
--- NOTE | 2020-02-27 12:00 | ABS_PTH ---
PATIENT: MIKEY ROCHE LOC: MS3 U#:[id number] AGE/SX: 24/M ROOM: MS311 RE02/27/[address]: Dr. Rosalia Farah MD : 1995 BED: 1 DIS: 02/29/2020 SPEC #: [id number] RECD: 02/27/20 13:14 STATUS: ELAYNE KIM #: [id number] ARIADNA: 02/27/20 12:[address]: Sebastian Valerio DEPT: SURGICAL PATHOLOGY RECD BY: Anirudh Whitney ENTERED: 02/28/20 08:42 SP TYPE: Abscess OTHR DR: MD Dr. Edwin Bailey MD No Primary Care Phys Tissues: Skin of forearm, NOS Procedures: Special Stain Group I Surgery Specimen Level III AFB Stain (control) GMS Stain (control) HEADER OPERATION: Surgical preparation right forearm with incision and drainage PRE-OP DIAGNOSIS: Abscess of right forearm TISSUE SUBMITTED: Right forearm abscess MICROSCOPIC DIAGNOSIS Right forearm abscess: Pieces of skin with underlying tissue with acute and chronic inflammation and abscess formation. Special stains for acid fast bacilli and fungi are negative for organisms; matched controls are appropriate. XUAN:monica 02/29/20 MICROSCOPIC DESCRIPTION Slides are reviewed. GROSS DESCRIPTION Received in fixative is one container labeled with the patient's name and designated right forearm abscess. The specimen consists of two pieces of skin with underlying tissue measuring 5.5 x 2.5 x 2.5 cm and 11 x 1 cm and up to 1 cm in thickness. Sections do not reveal any mass lesion. Hydrometer Calibrator sections are submitted in two cassettes. / XUAN:monica 02/28/20 TC:2 CPT: 37631,25755
--- NOTE | 2020-02-27 12:19 | PCM.OPRPT ---
Report of Operation Date of Procedure: 02/27/20 Pre-Operative Diagnosis: 1. IV drug abuse abscess right volar radial mid forearm. 2. IV drug abuse with Heroin and Methamphetamine. 3. Opiate abuse. 4. IV drug user. 5. Sepsis. 6. Smoker. Post-Operative Diagnosis: Same. Surgery/Procedure Performed:: Surgical preparation right volar radial mid forearm with incision and drainage and excisional debridement IV drug abuse abscess (44 cm2). Description of Surgical Findings:: The patient is a 24 year old M with a significant history of IV drug use and tobacco abuse who presents to the emergency department with increased pain and swelling of his right forearm. His swelling developed about 2 to 3 days ago; and it has progressively been worsening. He denies any fever or chills. Patient is right hand dominant. In the ED, an incision and drainage was performed. He was placed on Vancomycin and Cefazolin. A CT was done which showed rim-enhancing fluid collection in the radial aspect of the midforearm concerning for abscess. Surrounding skin thickening and stranding consistent with cellulitis. Diffuse soft tissue edema elsewhere in the right forearm. I was asked to evaluate this patient for surgical options for treatment. Recommend operative intervention urgently today. Patient understands that if the surgery is delayed 1-2 days, there is increased risk of a necrotizing process with muscle involvement that would increase the risk of stiffness and functional issues in his right hand and extremity which would be problematic since he is right hand dominant. Patient was informed of the risks and complications of the procedure including alternatives to surgery. These were discussed with the patient personally. Patient voices understanding and wishes to proceed. Some of the risks and complications that were discussed included but were not inclusive of failure to diagnose including symptom relief, pain, infection, numbness, stiffness, loss of digit, RSD (CRPS), need for further surgery, contracture, and wound healing problems. Encouraged patient to stop smoking as it may have deleterious effects on wound healing. Size of defect right volar radial mid forearm - 8 x 5.5 x 1 cm. folder operator: None Type of Anesthesia:: General Specimen's removed: 1. IV drug abuse abscess right volar radial mid forearm to Pathology and Microbiology. 2. MRSA Wound DNA by PCR. Drains: None. Estimated Blood Loss (mL): 50 ml. Description of Procedure: Patient was taken to OR in supine position and was placed under general anesthesia. A tourniquet was placed. Will elevate it if there are bleeding issues. The right upper extremity was prepped and draped in the usual fashion. SCD's were placed for DVT prophylaxis. Perioperative antibiotics were given intravenously. For the procedure, I wore an N95 mask and wore proper eyewear protection. Using xylocaine with epinephrine, the abscess was infiltrated to help with postoperative pain relief. Using a scalpel, an incision was made around this abscess down into the subcutaneous tissue. Pus was seen. It was thickened. A lot of induration and fat necrosis was present. The infection extended down to the muscle and involved the muscle. Some of the muscle was excised and debrided along with the induration and fat necrosis. I palpated deep to the muscle and no additional pus was noted deep to the muscle. The muscles involved with the excisional debridement were the flexor carpi radialis and brachioradialis muscles. Tissue that was debrided was sent to Pathology for analysis and to Microbiology for culture. A positive culture will necessitate antibiotic therapy. A MRSA Wound DNA by PCR was also done. The wound was irrigated with saline. Hemostasis was obtained with electrocautery. The tourniquet did not need to be elevated as there were no bleeding issues during the surgery. The size of the defect after incision and drainage and excisional debridement was 8 x 5.5 x 1 cm or 44 cm2. The wound was dressed with Mepitel nonadherent dressing followed by Betadine gauze. This was followed by dry Kerlix gauze and ABD pads and a compression pretty wrap. Patient tolerated the procedure well and was sent to PACU in satisfactory condition. Patient will be sent upstairs for continued postop care. The VAC will be applied tomorrow. After discharge, he will followup at the Wound Center. Range of motion exercises will be encouraged to minimize stiffness. OT may be needed if stiffness develops for range of motion exercises, strengthening, and edema management. He will keep his right arm elevated during the initial postoperative period. If there is a plateau in the healing process, can proceed with delayed closure with skin grafting. Grafts/Implants Used: None. - Complications None. - Admit VTE Documentation VTE Present on Admission: No VTE Mechan Device Prophylaxis: SCD's VTE Pharm Prophylaxis ordered?: No Surgery Charges CPT - 42305 ICD-10 - S51.801A, L02.413, F19.10, F11.10, F15.10, F19.90, A41.9, F17.200 74905 L02.413, F19.10, F11.10, F15.10, F19.90, S51.801A, A41.9, F17.200
[2020-02-27 14:36] LABS: M R Staph aureus DNA By PCR Negative (Negative); Probe Check PASS; Specimen Processing Control PASS; Staph aureus DNA By PCR NEGATIVE (Negative)
[2020-02-28] VITALS (8 sets, daily range): BP systolic 107–131; BP diastolic 62–74; PULSE 69–92; RESP 16; TEMP 36.7–37.2; O2SAT 99–100
[2020-02-28] MEDS: Cefazolin 2 GM in 0.9% Normal Saline 100 ML IV ×3 (05:25→20:29)
[2020-02-28 07:31] LABS: Hematocrit 37.7 % (40-54); Hemoglobin 11.8 g/dL (13.0-16.5); Mean Corp Hgb Conc 31.3 g/dL (32-36); Mean Corpuscular Hgb 26.4 pg (27.0-32.0); Mean Corpuscular Volume 84.3 fL (80-94); Mean Platelet Vol. 10.1 fl (6.2-12.0); Platelet Count 338 K/mm3 (150-450); RBC Distribution Width CV 13.6 % (11.6-14.6); RBC Distribution Width SD 42.3 fl (35.1-43.9); Red Blood Count 4.47 M/mm3 (4.6-6.2); White Blood Count 6.4 K/mm3 (4.4-11.0)
[2020-02-28 08:00] LABS: Anion Gap 6 (5-15); BUN 8 mg/dL (7-18); BUN/Creat Ratio 9.5 RATIO (10-20); Calcium,Total 9.2 mg/dL (8.5-10.1); Chloride 105 mmol/L (98-107); Creatinine, Serum 0.85 mg/dL (0.70-1.30); EST Glomerular Filtration Rate 118 mL/min (>60); Est Glom Filt Rate - Afr Amer 142 mL/min (>60); Estimated Creatinine Clearance 109.18 ml/min; Glucose 96 mg/dL (74-106); Potassium 3.9 mmol/L (3.5-5.1); Prealbumin 9.8 mg/dL (20.0-40.0); Sodium Level 139 mmol/L (136-145)
--- NOTE | 2020-02-28 10:21 | NURSING ---
Pts GF called in requesting information on when patient would be released. Pt was not listed as a contact. Spoke with Sam who stated it was ok to give her information. GF updated on patients condition.
--- NOTE | 2020-02-28 11:01 | NURSING ---
wound photo: right arm
[2020-02-28] MEDS: Vancomycin IV 1,000 MG/200 ML BAG 200 MG IV (12:14)
[2020-02-28 12:24] LABS: Vancomycin, Trough Level 5.3 ug/mL (5.0-15.0)
[2020-02-28] MEDS: Acetaminophen 325 MG Tablet 650 MG PO (12:38)
[2020-02-28] MEDS: hydrOXYzine PAM 25 MG Capsule 50 MG PO ×2 (12:38→20:26)
--- NOTE | 2020-02-28 13:15 | CASEMGMT ---
RN CM updated by wound nurse that patient will need HHC at discharge for wound vac. RN CM in to discuss options with patient and agreeable to [facility]. RN MARLEEN sent referral to [facility] and awaiting call back.
--- NOTE | 2020-02-28 13:18 | PCM.RX.CS ---
Consult Pharmacy has been consulted to manage selected antiobiotic: Vancomycin Type of Consult: Follow-up Labs: Sodium 139 mmol/L (136-145) 02/28/20 07:00 Potassium 3.9 mmol/L (3.5-5.1) 02/28/20 07:00 Chloride 105 mmol/L (98-107) 02/28/20 07:00 Carbon Dioxide 28.0 mmol/L (21.0-32.0) 02/28/20 07:00 Anion Gap 6 (5-15) 02/28/20 07:00 BUN 8 mg/dL (7-18) 02/28/20 07:00 Creatinine 0.85 mg/dL (0.70-1.30) 02/28/20 07:00 Est GFR (MDRD) Af Amer 142 mL/min (>60) 02/28/20 07:00 Est GFR (MDRD) Non-Af 118 mL/min (>60) 02/28/20 07:00 BUN/Creatinine Ratio 9.5 RATIO (10-20) L 02/28/20 07:00 Glucose 96 mg/dL (74-106) 02/28/20 07:00 Vancomycin Trough 5.3 ug/mL (5.0-15.0) 02/28/20 11:48 Microbiology: Microbiology 02/27/20 12:27 Wound Abcess - Arm Right Gram Stain - Final 02/27/20 12:27 Wound Abcess - Arm Right Wound Culture - Preliminary No growth-Final to follow 02/26/20 23:48 Wound Abcess - Right Forearm Gram Stain - Final 02/26/20 23:48 Wound Abcess - Right Forearm Wound Culture - Preliminary Streptococcus group A 02/27/20 10:20 Mucosa - Nose SARS-CoV-2 Antigen (Rapid) - Final Goal Trough: 10-15 mcg/mL Pharmacy Plan for Drug Dosing: VANCOMYCIN LEVEL RECEIVED Current Vancomycin Dose: 1000mg IV Q12hr Number of Doses Received: 4 (3 prior to trough draw) Vancomycin Level: 5.3 Hours Since Last Dose:12 hr Renal Function: 0.85 Renal Function Trend: stable Lab/Micro: WCx = strep (no sens yet) Vancomycin Plan/Comments: Patient trough resulted in a value of 5.3 (drawn ~12hrs from last administered dose). Goal trough is 10-15. Will increase dose frequency and start Vancomycin 1000mg IV Q8hr. Trough draw prior to 4th dose of new regimen. Pending Level: 02/29/20 @1930 Pharmacy Service will continue to monitor and adjust dosing as required.
--- NOTE | 2020-02-28 14:38 | PCM.PN.HOSP ---
Patient Problems: Active and Suspected Problems Opiate abuse, continuous (Acute) Sepsis (Acute) Abscess of right forearm (Acute) IV drug abuse (Acute) Reason for Visit: Follow-up on right forearm abscess Subjective: Patient was seen and examined. No acute events. Denies fever or chills. Rest of ROS is negative. Vitals/I&O's: Vital Signs Temp Pulse Resp BP Pulse Ox 98.2 F 92 16 131/74 H 100 02/28/20 12:30 02/28/20 11:35 02/28/20 12:30 02/28/20 12:30 02/28/20 12:30 Oxygen Delivery Method Room Air Weight: 57.6 kg Body Mass Index (BMI) 18.7 Intake and Output for Last 24 Hours 02/26/20 02/27/20 02/28/20 23:59 23:59 23:59 Intake Total 3990.00 / 3990.00 710 / 710 Output Total 1800 / 1800 800 / 800 Balance 2190.00 / 2190.00 -90 / -90 General: Alert, Oriented x3, Cooperative, No apparent distress HEENT: Atraumatic, PERRLA, EOMI Neck: Supple Lungs: Clear to auscultation, Normal air movement Cardiovascular: Regular rate, Regular Rhythm, Normal S1, Normal S2, No murmurs Abdomen: Bowel Sounds Present, Soft, Non Tender, Non-Distended, No Hepato-splenomegaly Extremities: No edema, Tenderness - in RLE, dressing is intact, able to move his fingers, sensation is intact Skin: No rashes Musculoskeletal: No Tenderness to Palpation of Joints or Extremities Lymphatic: No Cervical, Supraclavicular, or Inguinal Adenopathy Neurological: Cranial nerves II-XII grossly intact, Neuro grossly intact Psych/Mental Status: Normal Affect, Appropriate Microbiology Past 72 Hours 02/27/20 12:27 Wound Abcess - Arm Right Gram Stain - Final 02/27/20 12:27 Wound Abcess - Arm Right Wound Culture - Preliminary No growth-Final to follow 02/26/20 23:48 Wound Abcess - Right Forearm Gram Stain - Final 02/26/20 23:48 Wound Abcess - Right Forearm Wound Culture - Preliminary Streptococcus group A 02/27/20 10:20 Mucosa - Nose SARS-CoV-2 Antigen (Rapid) - Final Laboratory Results 02/28/20 07:00: WBC 6.4, RBC 4.47 L, Hgb 11.8 L, Hct 37.7 L, MCV 84.3, MCH 26.4 L, MCHC 31.3 L, RDW Std Deviation 42.3, RDW Coeff of Sohail 13.6, Plt Count 338, MPV 10.1 02/28/20 07:00: Sodium 139, Potassium 3.9, Chloride 105, Carbon Dioxide 28.0, Anion Gap 6, BUN 8, Creatinine 0.85, Estim Creat Clear Calc 109.18, Est GFR (MDRD) Af Amer 142, Est GFR (MDRD) Non-Af 118, BUN/Creatinine Ratio 9.5 L, Glucose 96, Calcium 9.2, Prealbumin 9.8 L 02/28/20 11:48: Vancomycin Trough 5.3 Current Medications Acetaminophen (Acetaminophen 325 Mg Tablet) 650 mg PO Q6H PRN PRN PRN Reason: Pain Score 1-10/Temp > 100.7 F Last Admin: 02/28/20 12:38 Dose: 650 mg Documented by: Clonidine (Clonidine Hcl 0.1 Mg Tablet) 0.1 mg PO Q8H PRN PRN PRN Reason: RESTLESSNESS Dicyclomine HCl (Dicyclomine 10 Mg Capsule) 20 mg PO Q6H PRN PRN PRN Reason: Abdominal Discomfort Gabapentin (Gabapentin 300 Mg Capsule) 300 mg PO Q8H PRN PRN PRN Reason: moderate to severe anxiety Hydroxyzine Pamoate (Hydroxyzine Shandra 25 Mg Capsule) 50 mg PO Q6H PRN PRN PRN Reason: mild anxiety Last Admin: 02/28/20 12:38 Dose: 50 mg Documented by: Vancomycin IV Pharmacy to Dose (1 ea/ Sodium Chloride) 500 mls @ 250 mls/hr IV X1 PRN; Protocol PRN Reason: Rx to Dose Cefazolin Sodium 2 gm/ Sodium (Chloride) 110 mls @ 150 mls/hr IV Q8 [facility] Last Infusion: 02/28/20 06:15 Dose: Infused Documented by: Sodium Chloride () 250 mls @ 15 mls/hr IV .[id number] PRN PRN Reason: Saline Flush Sodium Chloride () 250 mls @ 15 mls/hr IV .[id number] PRN PRN Reason: Additional IVPB Infusion Vancomycin HCl (Vancomycin) 1,000 mg in 200 mls @ 200 mls/hr IV Q8H [facility] Loperamide HCl (Loperamide 2 Mg Capsule) 2 mg PO Q4H PRN PRN PRN Reason: LOOSE STOOLS Melatonin (Melatonin 3 Mg Tablet) 3 mg PO QHS PRN PRN PRN Reason: INSOMNIA Methocarbamol (Methocarbamol 750 Mg Tablet) 1,500 mg PO Q6H PRN PRN PRN Reason: MUSCLE SPASM Nutritional Formula (Lactose Free) (Ensure Enlive 120 Ml Liquid) 120 ml PO 4X/DAY [facility] Last Admin: 02/28/20 08:44 Dose: 120 ml Documented by: Ondansetron HCl (Ondansetron 4 Mg/2 Ml Vial) 4 mg IV Q8H PRN PRN PRN Reason: NAUSEA/VOMITING Ondansetron HCl (Ondansetron 8 Mg Tablet) 8 mg PO Q8H PRN PRN PRN Reason: NAUSEA Oxycodone HCl (Oxycodone 5 Mg Tablet) 10 mg PO Q4H PRN PRN PRN Reason: Pain Score 6-10 Sodium Chloride (0.9% Saline Lock 10 Ml Syringe) 10 - 40 ml IV UD PRN PRN Reason: SALINE FLUSH Trazodone HCl (Trazodone 100 Mg Tablet) 100 mg PO QHS PRN PRN PRN Reason: INSOMNIA STROKE Vital Signs/Narrative: Vital Signs Temp Pulse Resp BP Pulse Ox 02/28/20 12:30 98.2 F 16 131/74 H 100 02/28/20 11:35 92 Medical Necessity - Tobacco Use Smoking Status: Current every day smoker Tobacco Use: Cigarettes Assessment/Plan All Active Problems Open wound of right forearm with complication (Acute) Methamphetamine abuse (Acute) Opiate abuse, continuous (Acute) Sepsis (Acute) Abscess of right forearm (Acute) IV drug abuse (Acute) IV drug user (Acute) 1. Sepsis secondary to right forearm abscess, status post I&D on 02/27/20 Wound cultures so far growing strep group B MRSA PCR negative. IV vancomycin and cefazolin Discontinue vancomycin, add Flagyl to cefazolin ID consult, continue on wound recommendation per plastic surgery 2. Polysubstance use disorder, advised to quit Would not start patient on buprenorphine taper because he is not ready to quit Continue on opioid withdrawal as needed medications 3. Nicotine dependence, on replacement 4. DVT prophylaxis with early ambulation Inpatient E&M: [id number] Subs Hosp L2
--- NOTE | 2020-02-28 14:39 | CASEMGMT ---
RN CM received call back from [facility] and they are able to accept the patient. CM will continue to follow this patient and plan for a safe discharge.
--- NOTE | 2020-02-28 15:45 | NURSING ---
home wound VAC approved. Had talked with Dr Valerio. probable discharge this evening. Carole, charge attendant aware that home VAC is in office with proof of delivery form for patient to sign and be faxed to [facility].
[2020-02-28] MEDS: metroNIDAZOLE 500 MG/100 ML BAG 100 MG IV ×2 (16:05→22:39)
--- NOTE | 2020-02-28 17:31 | PN.SURG_ITS ---
Patient Problems: Active and Suspected Problems Opiate abuse, continuous (Acute) Sepsis (Acute) Abscess of right forearm (Acute) IV drug abuse (Acute) Subjective: Postop #1 Patient is resting comfortably. VAC applied today. - Physical Exam Vitals/I&O's: Vital Signs Temp Pulse Resp BP Pulse Ox 98.0 F 84 16 128/72 H 100 02/28/20 15:02 02/28/20 15:02 02/28/20 15:02 02/28/20 15:02 02/28/20 15:02 Oxygen Delivery Method Room Air Weight: 126 lb 15.78 oz Body Mass Index (BMI) 18.7 Intake and Output for Last 24 Hours 02/26/20 02/27/20 02/28/20 23:59 23:59 23:59 Intake Total 3990.00 / 3990.00 1120 / 1120 Output Total 1800 / 1800 800 / 800 Balance 2190.00 / 2190.00 320 / 320 General: Alert, Oriented x3 HEENT: PERRLA, EOMI Oral: Moist Mucosa Neck: Supple Abdomen: Soft, Non-Distended Extremities: Edema - mild edema right upper extremity., Peripheral Pulses Normal, - - has good range of motion of his fingers right hand. Skin: Ulcer/ Wound - right forearm wound is stable. No active bleeding note. No residual infection noted. VAC applied. Neurological: Cranial nerves II-XII grossly intact Psych/Mental Status: Normal Affect, Appropriate Microbiology Past 72 Hours 02/27/20 12:27 Wound Abcess - Arm Right Gram Stain - Final 02/27/20 12:27 Wound Abcess - Arm Right Wound Culture - Preliminary No growth-Final to follow 02/26/20 23:48 Wound Abcess - Right Forearm Gram Stain - Final 02/26/20 23:48 Wound Abcess - Right Forearm Wound Culture - Preliminary Streptococcus group A 02/27/20 10:20 Mucosa - Nose SARS-CoV-2 Antigen (Rapid) - Final Laboratory Results 02/28/20 07:00: WBC 6.4, RBC 4.47 L, Hgb 11.8 L, Hct 37.7 L, MCV 84.3, MCH 26.4 L, MCHC 31.3 L, RDW Std Deviation 42.3, RDW Coeff of Sohail 13.6, Plt Count 338, MPV 10.1 02/28/20 07:00: Sodium 139, Potassium 3.9, Chloride 105, Carbon Dioxide 28.0, Anion Gap 6, BUN 8, Creatinine 0.85, Estim Creat Clear Calc 109.18, Est GFR (MDRD) Af Amer 142, Est GFR (MDRD) Non-Af 118, BUN/Creatinine Ratio 9.5 L, Glucose 96, Calcium 9.2, Prealbumin 9.8 L 02/28/20 11:48: Vancomycin Trough 5.3 Current Medications Acetaminophen (Acetaminophen 325 Mg Tablet) 650 mg PO Q6H PRN PRN PRN Reason: Pain Score 1-10/Temp > 100.7 F Last Admin: 02/28/20 12:38 Dose: 650 mg Documented by: Clonidine (Clonidine Hcl 0.1 Mg Tablet) 0.1 mg PO Q8H PRN PRN PRN Reason: RESTLESSNESS Dicyclomine HCl (Dicyclomine 10 Mg Capsule) 20 mg PO Q6H PRN PRN PRN Reason: Abdominal Discomfort Gabapentin (Gabapentin 300 Mg Capsule) 300 mg PO Q8H PRN PRN PRN Reason: moderate to severe anxiety Hydroxyzine Pamoate (Hydroxyzine Shandra 25 Mg Capsule) 50 mg PO Q6H PRN PRN PRN Reason: mild anxiety Last Admin: 02/28/20 12:38 Dose: 50 mg Documented by: Cefazolin Sodium 2 gm/ Sodium (Chloride) 110 mls @ 150 mls/hr IV Q8 [facility] Last Infusion: 02/28/20 16:05 Dose: Infused Documented by: Sodium Chloride () 250 mls @ 15 mls/hr IV .[id number] PRN PRN Reason: Saline Flush Sodium Chloride () 250 mls @ 15 mls/hr IV .[id number] PRN PRN Reason: Additional IVPB Infusion Metronidazole (Flagyl) 500 mg in 100 mls @ 100 mls/hr IV Q8 [facility] Last Infusion: 02/28/20 17:16 Dose: Infused Documented by: Loperamide HCl (Loperamide 2 Mg Capsule) 2 mg PO Q4H PRN PRN PRN Reason: LOOSE STOOLS Melatonin (Melatonin 3 Mg Tablet) 3 mg PO QHS PRN PRN PRN Reason: INSOMNIA Methocarbamol (Methocarbamol 750 Mg Tablet) 1,500 mg PO Q6H PRN PRN PRN Reason: MUSCLE SPASM Nutritional Formula (Lactose Free) (Ensure Enlive 120 Ml Liquid) 120 ml PO 4X/DAY [facility] Last Admin: 02/28/20 17:17 Dose: Not Given Documented by: Ondansetron HCl (Ondansetron 4 Mg/2 Ml Vial) 4 mg IV Q8H PRN PRN PRN Reason: NAUSEA/VOMITING Ondansetron HCl (Ondansetron 8 Mg Tablet) 8 mg PO Q8H PRN PRN PRN Reason: NAUSEA Oxycodone HCl (Oxycodone 5 Mg Tablet) 10 mg PO Q4H PRN PRN PRN Reason: Pain Score 6-10 Sodium Chloride (0.9% Saline Lock 10 Ml Syringe) 10 - 40 ml IV UD PRN PRN Reason: SALINE FLUSH Trazodone HCl (Trazodone 100 Mg Tablet) 100 mg PO QHS PRN PRN PRN Reason: INSOMNIA Medical Necessity - Tobacco Use Smoking Status: Current every day smoker Tobacco Use: Cigarettes Assessment/Plan All Active Problems Open wound of right forearm with complication (Acute) Methamphetamine abuse (Acute) Opiate abuse, continuous (Acute) Sepsis (Acute) Abscess of right forearm (Acute) IV drug abuse (Acute) IV drug user (Acute) 1. IV drug abuse abscess right volar radial mid forearm. 2. IV drug abuse with Heroin and Methamphetamine. 3. Opiate abuse. 4. IV drug user. 5. Sepsis. 6. Smoker. Right forearm wound stable. No active bleeding noted. VAC applied. Wound culture shows Streptococcus Group A. Continue Cefazolin. The Vancomycin was stopped. Continue Vancomycin and Cefazolin. Prealbumin was 9.8. Encourage nutritional supplementation with protein to help the healing process. After discharge will followup at the Wound Center. If there is a plateau in the healing process, can proceed with delayed closure with skin grafting. Encouraged patient to stop smoking as it may have deleterious effects on wound healing.
[2020-02-28] MEDS: MELATONIN 3 MG TABLET PO (20:26)
[2020-02-28] MEDS: traZODone 100 MG Tablet PO (20:26)
[2020-02-29] MEDS: Cefazolin 2 GM in 0.9% Normal Saline 100 ML IV (05:01)
[2020-02-29 05:06] VITALS: BP 107/64; PULSE 61; RESP 16; TEMP 36.7; O2SAT 98
[2020-02-29] MEDS: metroNIDAZOLE 500 MG/100 ML BAG 100 MG IV (06:25)
[2020-02-29 08:25] VITALS: PULSE 68
[2020-02-29 08:57] VITALS: BP 121/71; PULSE 94; RESP 14; TEMP 37; O2SAT 100
[2020-02-29 09:15] VITALS: O2SAT 100
--- NOTE | 2020-02-29 12:55 | NURSING ---
Dr. Lindsey cortexted to see what time he is coming up as pt is been anxiously waiting to go home and does not want to stay any longer.
--- NOTE | 2020-02-29 13:09 | PCM.DC ---
- Discharge Diagnoses Current Active Problems: Current Active and Chronic Problems Opiate abuse, continuous (Acute) Sepsis (Acute) Abscess of right forearm (Acute) IV drug abuse (Acute) Reason(s) for Visit for Discharge Instructions: Right forearm abscess You will use the following diet at home:: Regular Your food should be the consistency of: Regular Your liquids should be the consistency of: Regular/Thin Discharge Activity: Return to Normal Activity Additional Instructions: You are being discharged home with home health. You will have a wound vac to right forearm at 150 mmHg continuous suction. Dressing changes three(3) times a day. You are to complete antibiotics as prescribed. Continue to do range of motion to your right upper extremity, to prevent contractures. Follow-up with wound center and Dr. Valerio on 03/10/20. Allergies/Adverse Reactions: Allergies No Known Allergies Allergy (Verified 02/27/20 01:48) Medications to take at Discharge Amoxicillin 875 mg PO BID #14 tab 02/29/20 The following prescriptions were given: Amoxicillin 875 mg PO BID #14 tab Transmission Status: Received by [facility] Primary Care Physician: Care Physician,No Primary [Primary Care Provider] - Please follow up with your Primary Care Physician in: within 2 weeks Test Results: Test results from this visit will be discussed in further detail at your follow-up appointment, if applicable. Please Follow Up With: Clinic,Wound When: in 03/10/[address] Valerio Proposed Discharge Date: 02/29/20
[2020-02-29 13:29] VITALS: BP 124/84; PULSE 97; RESP 18; TEMP 36.7; O2SAT 100
--- NOTE | 2020-02-29 13:33 | PN.SURG_ITS ---
Patient Problems: Active and Suspected Problems Open wound of right forearm with complication (Acute) Opiate abuse, continuous (Acute) Sepsis (Acute) Abscess of right forearm (Acute) IV drug abuse (Acute) Subjective: post op day #2 Patient sitting up in bed. Anxious to be discharged home. - Physical Exam Vitals/I&O's: Vital Signs Temp Pulse Resp BP Pulse Ox 98.1 F 97 18 124/84 H 100 02/29/20 13:29 02/29/20 13:29 02/29/20 13:29 02/29/20 13:29 02/29/20 13:29 Oxygen Delivery Method Room Air Weight: 126 lb 15.78 oz Body Mass Index (BMI) 18.7 Intake and Output for Last 24 Hours 02/27/20 02/28/20 02/29/20 23:59 23:59 23:59 Intake Total 3990.00 / 3990.00 1330 / 1330 300.5 / 300.5 Output Total 1800 / 1800 800 / 800 Balance 2190.00 / 2190.00 530 / 530 300.5 / 300.5 General: Alert, Oriented x3, Cooperative HEENT: Atraumatic Oral: Moist Mucosa Lungs: Clear to auscultation, Normal air movement Cardiovascular: Regular rate, Regular Rhythm Abdomen: Bowel Sounds Present, Soft Extremities: Capillary Refill Less than 3 Seconds, Edema, Peripheral Pulses Normal Skin: Ulcer/ Wound - Right volar forearm ulcer stable, no active bleeding. Wound VAC dressing in place. Musculoskeletal: No Tenderness to Palpation of Joints or Extremities Neurological: Cranial nerves II-XII grossly intact Psych/Mental Status: Normal Affect, Appropriate Microbiology Past 72 Hours 02/26/20 23:48 Wound Abcess - Right Forearm Gram Stain - Final 02/26/20 23:48 Wound Abcess - Right Forearm Wound Culture - Final Streptococcus group A 02/27/20 12:27 Wound Abcess - Arm Right Gram Stain - Final 02/27/20 12:27 Wound Abcess - Arm Right Wound Culture - Preliminary No growth-Final to follow 02/27/20 12:27 Wound Abcess - Arm Right Anaerobic Culture - Preliminary No growth in 48 hours. 02/26/20 23:37 Blood Culture (Wb)#3 - Anticubital Left Blood Culture - Preliminary No growth in 48 hours. 02/26/20 23:00 Blood Culture (Wb) - Anticubital Left Blood Culture - Preliminary No growth in 48 hours. 02/26/20 22:55 Blood Culture (Wb) - Anticubital Left Blood Culture - Preliminary No growth in 48 hours. 02/27/20 10:20 Mucosa - Nose SARS-CoV-2 Antigen (Rapid) - Final Current Medications Acetaminophen (Acetaminophen 325 Mg Tablet) 650 mg PO Q6H PRN PRN PRN Reason: Pain Score 1-10/Temp > 100.7 F Last Admin: 02/28/20 12:38 Dose: 650 mg Documented by: Clonidine (Clonidine Hcl 0.1 Mg Tablet) 0.1 mg PO Q8H PRN PRN PRN Reason: RESTLESSNESS Dicyclomine HCl (Dicyclomine 10 Mg Capsule) 20 mg PO Q6H PRN PRN PRN Reason: Abdominal Discomfort Gabapentin (Gabapentin 300 Mg Capsule) 300 mg PO Q8H PRN PRN PRN Reason: moderate to severe anxiety Hydroxyzine Pamoate (Hydroxyzine Shandra 25 Mg Capsule) 50 mg PO Q6H PRN PRN PRN Reason: mild anxiety Last Admin: 02/28/20 20:26 Dose: 50 mg Documented by: Cefazolin Sodium 2 gm/ Sodium (Chloride) 110 mls @ 150 mls/hr IV Q8 [facility] Last Infusion: 02/29/20 05:45 Dose: Infused Documented by: Sodium Chloride () 250 mls @ 15 mls/hr IV .[id number] PRN PRN Reason: Saline Flush Last Infusion: 02/29/20 07:25 Dose: 15 mls/hr Documented by: Sodium Chloride () 250 mls @ 15 mls/hr IV .[id number] PRN PRN Reason: Additional IVPB Infusion Metronidazole (Flagyl) 500 mg in 100 mls @ 100 mls/hr IV Q8 [facility] Last Infusion: 02/29/20 07:25 Dose: Infused Documented by: Loperamide HCl (Loperamide 2 Mg Capsule) 2 mg PO Q4H PRN PRN PRN Reason: LOOSE STOOLS Melatonin (Melatonin 3 Mg Tablet) 3 mg PO QHS PRN PRN PRN Reason: INSOMNIA Last Admin: 02/28/20 20:26 Dose: 3 mg Documented by: Methocarbamol (Methocarbamol 750 Mg Tablet) 1,500 mg PO Q6H PRN PRN PRN Reason: MUSCLE SPASM Ondansetron HCl (Ondansetron 4 Mg/2 Ml Vial) 4 mg IV Q8H PRN PRN PRN Reason: NAUSEA/VOMITING Ondansetron HCl (Ondansetron 8 Mg Tablet) 8 mg PO Q8H PRN PRN PRN Reason: NAUSEA Oxycodone HCl (Oxycodone 5 Mg Tablet) 10 mg PO Q4H PRN PRN PRN Reason: Pain Score 6-10 Sodium Chloride (0.9% Saline Lock 10 Ml Syringe) 10 - 40 ml IV UD PRN PRN Reason: SALINE FLUSH Trazodone HCl (Trazodone 100 Mg Tablet) 100 mg PO QHS PRN PRN PRN Reason: INSOMNIA Last Admin: 02/28/20 20:26 Dose: 100 mg Documented by: Medical Necessity - Tobacco Use Smoking Status: Current every day smoker Tobacco Use: Cigarettes Assessment/Plan All Active Problems Open wound of right forearm with complication (Acute) Methamphetamine abuse (Acute) Opiate abuse, continuous (Acute) Sepsis (Acute) Abscess of right forearm (Acute) IV drug abuse (Acute) IV drug user (Acute) 1. IV drug abuse abscess right volar radial mid forearm. 2. IV drug abuse with Heroin and Methamphetamine. 3. Opiate abuse. 4. IV drug user. 5. Sepsis. 6. Smoker. Right forearm wound stable. No active bleeding noted. VAC applied yesterday. Wound culture shows Streptococcus Group A, being discharged today on Amoxicillin. Prealbumin was 9.8 from yesterday. Encourage nutritional supplementation with protein to help the healing process. After discharge will followup at the Wound Center. If there is a plateau in the healing process, can proceed with delayed closure with skin grafting. Encouraged patient to stop smoking as it may have deleterious effects on wound healing. Plan for discharge to home today.
--- NOTE | 2020-02-29 13:33 | PCM.HP.ID ---
Problem List (1) Open wound of right forearm with complication Status: Acute Reason for Consult: arm abscess Consulted by: Dr. Farah History of Present Illness: The patient is a 24 year old M with IVDU, meth and heroin, does share needles, reports neg for hiv and hepatitis 2 months ago while in group home. Does not lick needles. About 4-5 days ago, developed progressive pain, redness, and swelling of R forearm. No drainage, mild fever, no n/v/d. Is right handed. Came to ED, started on abx, taken to OR by Dr. Valerio 02/27/20. On cefazolin, wound vac in place, wants to leave the hospital urgently. Full ROS performed and neg except as noted above. - Medical History Past Medical History (Chronic Problems): Chronic Problems Smoker (Chronic) Allergies/Adverse Reactions: Allergies No Known Allergies Allergy (Verified 02/27/20 01:48) Home Medications: Ambulatory Orders Medication Instructions Recorded Amoxicillin 875 mg PO BID #14 tab 02/29/20 - Social History Drug Use: heroin Vital Signs Temp Pulse Resp BP Pulse Ox 98.1 F 97 18 124/84 H 100 02/29/20 13:29 02/29/20 13:29 02/29/20 13:29 02/29/20 13:29 02/29/20 13:29 Oxygen Delivery Method Room Air Weight: 57.6 kg Body Mass Index (BMI) 18.7 Microbiology Past 72 Hours 02/26/20 23:48 Gram Stain - Final Wound Abcess - Right Forearm Wound Culture - Final Streptococcus group A 02/27/20 12:27 Gram Stain - Final Wound Abcess - Arm Right Wound Culture - Preliminary No growth-Final to follow Anaerobic Culture - Preliminary No growth in 48 hours. 02/26/20 23:37 Blood Culture - Preliminary Blood Culture (Wb)#3 - Anticubital Left No growth in 48 hours. 02/26/20 23:00 Blood Culture - Preliminary Blood Culture (Wb) - Anticubital Left No growth in 48 hours. 02/26/20 22:55 Blood Culture - Preliminary Blood Culture (Wb) - Anticubital Left No growth in 48 hours. 02/27/20 10:20 SARS-CoV-2 Antigen (Rapid) - Final Mucosa - Nose - Other Studies Radiology: [] reviewed Other Studies: [] Route of nutrition/ use of supplements: [] Nutritional Intake: [] IV Site: [] Sullivan Catheter: [] - Physical Exam General: Alert, Oriented x3, Cooperative, No apparent distress HEENT: Atraumatic, PERRLA, EOMI Neck: Supple, No Nodes Lungs: Clear to auscultation, Normal air movement Cardiovascular: Regular rate, Regular Rhythm Abdomen: Soft, Non Tender, Non-Distended Extremities: No edema Skin: Ulcer/ Wound - reviewed photo IV Site: Peripheral, without redness Musculoskeletal: No Tenderness to Palpation of Joints or Extremities Neurological: Cranial nerves II-XII grossly intact - Assessment/Plan Antibiotics: [] Assessment/Plan: [] Active and Suspected Problems Opiate abuse, continuous (Acute) Sepsis (Acute) Abscess of right forearm (Acute) IV drug abuse (Acute) GAS R forearm abscess due to IVDU - now s/p I&D and wound vac by Dr. Valerio 02/27/20. On cefazolin. Counseled re need to stop drug use, stop sharing needles. Risks include infection and . Ok for d/c on amox for one more week. Wrote rx. Will follow as needed, thank you, d/w primary team
--- NOTE | 2020-03-01 08:56 | DS.PCM_ITS ---
Discharge Date and Diagnosis - Problem List Patient Problems: Active and Suspected Problems Open wound of right forearm with complication (Acute) Opiate abuse, continuous (Acute) Sepsis (Acute) Abscess of right forearm (Acute) IV drug abuse (Acute) Date of Admission: 02/27/20 Date of Discharge: 02/29/20 - Primary Discharge Diagnosis Acute Problems: Active Problems Sepsis secondary to right forearm group A streptococcal abscess, status post I&D on 02/27/20. Polysubstance use disorder Nicotine dependence - Secondary Discharge Diagnosis Chronic Problems: Chronic Problems Smoker (Chronic) Hospital Course and Treatment Imaging Results: Clinical Impression(s) from Imaging Studies Upper Extremity CT 02/27/20 01:15 IMPRESSION: Rim-enhancing fluid collection in the radial aspect of the midforearm concerning for abscess. Surrounding skin thickening and stranding consistent with cellulitis. Diffuse soft tissue edema elsewhere in the right forearm. Individualized dose optimization techniques were used for this CT. 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 He had denied any fever or chills. Patient had an I&D of the swelling done in the ED. His white cell count was 12.4. Not have a temperature. CT scan of the right upper extremity showed rim- enhancing fluid collection in the radial aspect of the midforearm concerning for abscess with surrounding skin thickening and stranding consistent with cellulitis. He was started on IV vancomycin and cefazolin. When his MRSA PCR came back negative, IV vancomycin was discontinued and Flagyl was added to his medication. Plastic surgery was consulted and patient underwent I & D and excisional debridement on 02/27/20. Patient was monitored subsequently and had a wound VAC placed on 03/09/20. Wound RN was following. Intraoperative wound cultures grew Streptococcus group A. He was discharged on amoxicillin for 1 week. He was counseled highly to quit using drugs. He will be followed up with home health. He will follow-up in the wound center with Dr. Valerio on 03/10/20. Patient Problems: Active and Suspected Problems Open wound of right forearm with complication (Acute) Opiate abuse, continuous (Acute) Sepsis (Acute) Abscess of right forearm (Acute) IV drug abuse (Acute) Subjective: The day of discharge, patient was seen and examined. Denied any fever or chills. No acute events overnight. He had a wound VAC placed. He will be going home with home health and wound vac in place. Objective: Physical exam: General: Alert, Oriented x3, Cooperative, No apparent distress HEENT: Atraumatic, PERRLA, EOMI Neck: Supple Lungs: Clear to auscultation, Normal air movement Cardiovascular: Regular rate, Regular Rhythm, Normal S1, Normal S2, No murmurs Abdomen: Bowel Sounds Present, Soft, Non Tender, Non-Distended, No Hepato- splenomegaly Extremities: No edema, Tenderness - in RLE, dressing is intact, able to move his fingers, sensation is intact, wound vac on Skin: No rashes Musculoskeletal: No Tenderness to Palpation of Joints or Extremities Lymphatic: No Cervical, Supraclavicular, or Inguinal Adenopathy Neurological: Cranial nerves II-XII grossly intact, Neuro grossly intact Psych/Mental Status: Normal Affect, Appropriate - Physical Exam Vitals/I&O's: Vital Signs Temp Pulse Resp BP Pulse Ox 98.1 F 97 18 124/84 H 100 02/29/20 13:29 02/29/20 13:29 02/29/20 13:29 02/29/20 13:29 02/29/20 13:29 Oxygen Delivery Method Room Air Weight: 57.6 kg Body Mass Index (BMI) 18.7 Intake and Output for Last 24 Hours 02/28/20 02/29/20 03/01/20 23:59 23:59 23:59 Intake Total 1330 / 1330 393.25 / 393.25 Output Total 800 / 800 Balance 530 / 530 393.25 / 393.25 Microbiology Past 72 Hours 02/27/20 12:27 Wound Abcess - Arm Right Gram Stain - Final 02/27/20 12:27 Wound Abcess - Arm Right Wound Culture - Final No growth aerobically. 02/27/20 12:27 Wound Abcess - Arm Right Anaerobic Culture - Preliminary No growth in 48 hours. 02/26/20 23:48 Wound Abcess - Right Forearm Gram Stain - Final 02/26/20 23:48 Wound Abcess - Right Forearm Wound Culture - Final Streptococcus group A 02/26/20 23:37 Blood Culture (Wb)#3 - Anticubital Left Blood Culture - Preliminary No growth in 48 hours. 02/26/20 23:00 Blood Culture (Wb) - Anticubital Left Blood Culture - Preliminary No growth in 48 hours. 02/26/20 22:55 Blood Culture (Wb) - Anticubital Left Blood Culture - Prel iminary No growth in 48 hours. 02/27/20 10:20 Mucosa - Nose SARS-CoV-2 Antigen (Rapid) - Final Discharge Diet: No Restrictions Discharge Activity: Return to Normal Activity Home Medications: Medications to take at Discharge Amoxicillin 875 mg PO BID #14 tab 02/29/20 Following Prescriptions Were Given to Patient: Amoxicillin 875 mg PO BID #14 tab Transmission Status: Received by [facility] Primary Care Physician: Care Physician,No Primary [Primary Care Provider] - Please follow up with your Primary Care Physician in: within 2 weeks Please Follow Up With: Clinic,Wound When: in 03/10/[address] Valerio Disposition: Home with Home Health Minutes spent on discharge:: 50 Patient Condition:: Stable Medical Necessity - Tobacco Use Smoking Status: Current every day smoker Tobacco Use: Cigarettes Meaningful Use Info Meaningful Use Diagnoses (Choose all that apply): None applicable Inpatient E&M: 81645 Disch Hosp
== END 2020-02-29 13:45 | disposition home or self-care (01) | DRG 364 ==
LOC: ED 02-27 00:17 → MS3 02-27 00:22
PROVIDERS: Surgery; Admitting Provider Hospitalist; Emergency Provider Emergency Medicine; Referring Provider Hospitalist; Visit Provider Internal Medicine
PROC: 0H9DXZZ Drainage of Right Lower Arm Skin, External Approach (ICD-10-PCS; principal; 2020-02-27 11:50)
DX: L02.413 Cutaneous abscess of right upper limb (principal); L03.113 Cellulitis of right upper limb; R01.1 Cardiac murmur, unspecified; F11.10 Opioid abuse, uncomplicated; F15.10 Other stimulant abuse, uncomplicated; F17.210 Nicotine dependence, cigarettes, uncomplicated
CPT/HCPCS: 10060; 36415; 73202; 80048; 80053; 80202; 83605; 84134; 85025; 85027; 85610; 85730; 87040; 87070; 87075; 87077; 87102; 87205; 87206; 87426; 87640; 88304; 88305; 88312; 93306; 97802; 99285; J7030; J7050; Q9967; A4216; J2405

== ENCOUNTER 2020-03-23 23:39 | Inpatient (IN) | payer MEDICAID, SELFPAY ==
[2020-02-27 01:25] VITALS: BMI 18.7
[2020-03-23 23:39] VITALS: BP 123/69; PULSE 148; RESP 25; TEMP 36.1; O2SAT 73; BMI 20.2
--- NOTE | 2020-03-23 23:40 | ED.DCSUM_ITS ---
History of Present Illness Chief Complaint: Overdose Informant: Patient Narrative: 24-year-old male with past medical history of opiate abuse presents with concern for overdose. Patient brought in by EMS after being called to their home by friends for altered mentation. Patient found to be extremely confused and lethargic with concern for respiratory depression. Patient was given 1 mg of IV Narcan and return to baseline. Patient has no complaints at this time. Does admit to injecting heroin. Denies any headache, vision change, chest pain, shortness of breath, nausea, vomiting, abdominal pain, fever, chills, cough. Past Medical History - Allergies and Home Meds Allergies/Adverse Reactions: Allergies No Known Allergies Allergy (Verified 02/27/20 01:48) Prior records reviewed: Yes Past Medical History: None Surgical History: herniorrhaphy, - Lives: With Family Smoking Status: Current every day smoker Alcohol: None Drugs: None - Family History Maternal Family History: Reports: - - Denies knowledge of maternal medical history Paternal Family History: Reports: - - Denies knowledge of paternal medical history Review of Systems General: Denies: Chills, Fever, Sweats Eyes: Denies: Visual changes - bilaterally, Diplopia ENT: Denies: Rhinorrhea, Sore throat Cardiovascular: Denies: Chest pain, Palpitations Respiratory: Denies: Dyspnea, Cough, Dyspnea on exertion Gastrointestinal: Denies: Abdominal pain, Nausea, Vomiting, Diarrhea, Melena, Hematochezia Genitourinary: Denies: Dysuria, Hematuria, Frequency Musculoskeletal: Denies: Back pain, Extremity Pain Skin: Denies: Rash, Wounds Neurological: Denies: Headache, Weakness, Numbness Physical Exam Inital Vital Signs reviewed: Yes General: Well nourished, Well developed, No Acute Distress Head: Normocephalic, Atraumatic Eyes: Perrl, EOMI ENT: Moist mucous membranes, No rhinorrhea Neck: Supple, Nontender Cardiovascular: Regular rate, Regular rhythm, No murmurs Respiratory: No distress, CTA bilaterally, Chest nontender Abdomen: Soft, Nontender, Nondistended, Normal bowel sounds Back: Nontender, Normal Inspection Extremities: Nontender, No edema Skin: Normal color, No rash Neurological: Alert, Oriented x3, Cranial nerves II-XII grossly intact, Normal Strength, Normal Sensation Psychological: Normal affect, Normal Mood Diagnostic/Tx/Re-eval Chest X-Ray - ED: 1 View, Read by ED Physician, Read by Radiologist, - - Non- cardiogenic pulmonary edema. Clinical Impression(s) from Imaging Studies Chest X-Ray 03/23/20 23:45 IMPRESSION: Diffuse bilateral airspace disease compatible with pulmonary edema, pneumonia, or some combination thereof. As correlated with the clinical history, noncardiogenic pulmonary edema is likely. at 0102 Reported and signed by: Michael Browne MD Electronically Signed: Michael Browne, at 1:01 EST Tel , Service support , Laboratory Data 03/23/20 03/23/20 03/23/20 23:50 23:50 23:50 WBC 14.5 H RBC 4.79 Hgb 13.1 Hct 41.6 MCV 86.8 MCH 27.3 MCHC 31.5 L RDW Std Deviation 46.8 H RDW Coeff of Sohail 14.7 H Plt Count 323 MPV 9.8 Immature Gran % (Auto) 0.300 Neut % (Auto) 82.2 H Lymph % (Auto) 13.3 L [place] % (Auto) 4.0 Eos % (Auto) 0.1 Baso % (Auto) 0.1 Absolute Neuts (auto) 12.0 H Absolute Lymphs (auto) 1.93 Nucleated RBC % 0 Sodium 140 Potassium 3.9 Chloride 104 Carbon Dioxide 25.0 Anion Gap 11 BUN 14 Creatinine 1.39 H Estim Creat Clear Calc 70.01 Est GFR (MDRD) Af Amer 80 Est GFR (MDRD) Non-Af 66 BUN/Creatinine Ratio 10.1 Glucose 125 H Calcium 9.2 Total Bilirubin 0.30 AST 82 H ALT 95 H Alkaline Phosphatase 141 H Troponin I < 0.015 Total Protein 8.1 Albumin 3.5 Globulin 4.6 H Albumin/Globulin Ratio 0.8 L Ethyl Alcohol < 3.0 - Rhythm Strip Rhythm Strip: Sinus Tach Ectopy: None - EKG Initial EKG Interpretation: Sinus Tachycardia - Sinus tachycardia at 132 bpm. [place] interval 158 ms. QTC of [address] changes. - Medical Decision Making Patient with signs and symptoms of acute opiate withdrawal upon arrival. Found to be significantly hypoxemic at 75% on room air. Placed on nonrebreather. Chest x-ray concerning for noncardiogenic pulmonary edema. Concerned this is secondary to Narcan administration given the patient's overdose history. Patient was given Unasyn with concern for possible aspiration as well. Patient given 40 mg of IV Lasix. Placed on noninvasive ventilation. Other lab work shows a leukocytosis. Blood cultures were drawn and are currently pending. Patient does not need acute airway intervention at this time. Patient maintaining oxygen saturation above 95% on BiPAP. Patient good urine output. Spoke with hospitalist who is agreeable with admitting patient to the intensive care unit. Patient in critical but stable condition. Impression: 1. Acute hypoxic respiratory failure 2. Noncardiogenic pulmonary edema 3. Opiate overdose 4. Tachycardia 5. Acute renal insufficiency 6. Transaminitis - Critical Care Time Critical care time (excluding procedures): 30-74 minutes, Discussing w/Patient &/or Family/Offal Icer Poultry, Discussing w/Consultants, Arranging Admission or Transfer, Performing Direct Patient Care at Bedside ED Disposition - Plan for ED Patient: Disposition: Acute Care [facility]
--- NOTE | 2020-03-23 23:45 | RAD_ITS ---
HISTORY: HYPOXIA S/P HEROIN OVERDOSE EXAMINATION/TECHNIQUE: XR Chest 1 View: Portable upright COMPARISON: None FINDINGS: Cardiac telemetry leads in place. Diffuse bilateral airspace opacities representing edema, infiltrates, or combination thereof. Normal heart size. No pneumothorax or pleural effusion. Biapical pleural thickening, worse on the left, compatible with scarring. RAD/Chest 1 View (Portable) IMPRESSION: Diffuse bilateral airspace disease compatible with pulmonary edema, pneumonia, or some combination thereof. As correlated with the clinical history, noncardiogenic pulmonary edema is likely. at 0102 Reported and signed by: Michael Browne MD Electronically Signed: Michael Browne, at 1:01 EST Tel , Service support ,
[2020-03-23 23:56] LABS: Absolute Lymphocyte Count 1.93 X10^3/uL (0.83-4.51); Basophil# 0.01 X10^3/uL; Basophil% 0.1 % (0-1); Eosinophil# 0.02 X10^3/uL; Eosinophils% 0.1 % (0-5); Hematocrit 41.6 % (40-54); Hemoglobin 13.1 g/dL (13.0-16.5); Lymphocyte # 1.93 X10^3/ul (4.0); Lymphocyte % 13.3 % (19-41); Mean Corp Hgb Conc 31.5 g/dL (32-36); Mean Corpuscular Hgb 27.3 pg (27.0-32.0); Mean Corpuscular Volume 86.8 fL (80-94); Mean Platelet Vol. 9.8 fl (6.2-12.0); Monocyte# 0.58 X10^3/uL; NRBC Flagged by Analyzer 0 % (0-5); Neutrophil # 11.95 X10^3/uL (2.7-7.7); Neutrophil % 82.2 % (47-70); Platelet Count 323 K/mm3 (150-450); RBC Distribution Width CV 14.7 % (11.6-14.6); RBC Distribution Width SD 46.8 fl (35.1-43.9); Red Blood Count 4.79 M/mm3 (4.6-6.2); White Blood Count 14.5 K/mm3 (4.4-11.0)
[2020-03-24] VITALS (39 sets, daily range): BP systolic 96–154; BP diastolic 48–104; PULSE 87–145; RESP 11–24; TEMP 36.2–37.2; O2SAT 91–100; BMI 18.6; BMI 18.7
[2020-03-24 00:14] LABS: ALB/GLOB Ratio 0.8 RATIO (0.9-2.4); AST(SGOT) 82 U/L (15-37); Alanine Aminotransfer ALT/SGPT 95 U/L (16-61); Albumin, Serum 3.5 g/dL (3.2-5.0); Alkaline Phosphatase 141 U/L (45-117); Anion Gap 11 (5-15); BUN 14 mg/dL (7-18); BUN/Creat Ratio 10.1 RATIO (10-20); Calcium,Total 9.2 mg/dL (8.5-10.1); Chloride 104 mmol/L (98-107); Creatinine, Serum 1.39 mg/dL (0.70-1.30); EST Glomerular Filtration Rate 66 mL/min (>60); Est Glom Filt Rate - Afr Amer 80 mL/min (>60); Estimated Creatinine Clearance 70.01 ml/min; Globulin 4.6 g/dL (2.2-4.2); Glucose 125 mg/dL (74-106); Potassium 3.9 mmol/L (3.5-5.1); Protein, Total 8.1 g/dL (6.4-8.2); Sodium Level 140 mmol/L (136-145)
[2020-03-24 00:18] LABS: Alcohol, Blood (Medical)-Serum < 3.0 mg/dL
[2020-03-24] MEDS: Ondansetron 4 MG/2 ML Vial IV (00:41)
[2020-03-24] MEDS: Furosemide 40 MG/4 ML Vial IV ×2 (00:51→05:13)
[2020-03-24] MEDS: Nitroglycerin (INPATIENT USE) 0.4 MG TAB.SUBL SUBLINGUAL (01:00)
--- NOTE | 2020-03-24 01:11 | ED.RN ---
hold nitro drip for now.
[2020-03-24 01:15] LABS: Blood Gas Specimen Type VEN; O2 Delivery Device NRB; VBG BASE EXCESS 3 mmol/L (-1.0-3.5); VBG Bicarbonate 29 mmol/L (22-26); VBG PO2 99 mmHg (25-40); VBG SO2 97 % (50-70); VBG TCO2 30 mmol/L (23-33); VBG pCO2 54.6 mmHg (41-51); VBG pH 7.33 (7.32-7.42)
[2020-03-24 01:40] LABS: Allen Test Positive; Base Excess 3 mmol/L (-2 to +2); Bicarbonate 28.9 mmol/L (22-26); Blood Gas Specimen Type ART; FI02 40; O2 Delivery Device BiPAP; PEEP 8; PO2 103 mmHG (75-100); RR 12; SITE R Brach; SO2 97 % (95-99); Total Carbon Dioxide 31 mmol/L; pCO2 55.5 mmHg (35-45); pH 7.33 (7.35-7.45)
[2020-03-24 01:43] LABS: Amphetamine Urine VISTA POSITIVE (<1000 ng/mL); Barbiturate Urine VISTA NEGATIVE (< 200 ng/mL); Benzodiazepine Urine VISTA NEGATIVE (< 200 ng/mL); Cocaine Urine VISTA NEGATIVE (< 300 ng/mL); Ecstacy Urine VISTA POSITIVE (< 500 ng/mL); Methadone Urine VISTA NEGATIVE (< 300 ng/mL); PCP Urine VISTA NEGATIVE (< 25 ng/mL); THC Urine VISTA POSITIVE (< 50 ng/mL); Vista UDS pH Range 5
--- NOTE | 2020-03-24 02:01 | ED.RN ---
charles peoples and pt updated mother on his status and admission.
--- NOTE | 2020-03-24 02:16 | ED.RN ---
REPORT CALLED TO JULIANNE IN ICU.
--- NOTE | 2020-03-24 02:18 | HP.PCM_ITS ---
Problem List (1) Heroin overdose Status: Acute (2) Methamphetamine abuse Status: Chronic (3) Smoker Status: Chronic (4) Opiate abuse, continuous Status: Acute (5) IV drug abuse Status: Acute (6) IV drug user Status: Acute History of Present Illness Date of Admission: 03/24/20 Chief Complaint: Overdose The patient is a 24 year old M with a significant history of IV drug use and tobacco abuse who presents to the emergency department with overdose. Patient is a heroin IV drug user. Per emergent department doctor EMS was called by friends for altered mental status. Patient was found to be lethargic and there was concern for respiratory depression. He was given Narcan by paramedics. At the time of examination patient was on BiPAP and lethargic so he could not provide history. Past Medical History Past Medical History (Chronic Problems): Chronic Problems Methamphetamine abuse (Chronic) Smoker (Chronic) Medical History: Medical History (Last Reviewed 02/27/20 @ 01:[address] Edwin Lala MD) IV drug user (Acute) F19.90 Allergies No Known Allergies Allergy (Verified 02/27/20 01:48) Home Medications: Ambulatory Orders Medication Instructions Recorded NK 03/24/20 Surgical History: herniorrhaphy, - Lives: With Family Smoking Status: Current every day smoker Tobacco Use: Cigarettes Alcohol: None Drugs: None - *Family History Maternal History Items: - - Denies knowledge of maternal medical history Paternal History Items: - - Denies knowledge of paternal medical history Review of Systems Unable to obtain accurate/complete ROS d/t: Patient with mask on and disoriented. VTE Information - Inpt Only VTE Present on Admission: No VTE Mechan Device Prophylaxis: None VTE Pharm Prophylaxis ordered?: Yes Patient Problems: Active and Suspected Problems Heroin overdose (Acute) Opiate abuse, continuous (Acute) IV drug abuse (Acute) IV drug user (Acute) - Physical Exam Vitals/I&O's: Vital Signs Temp Pulse Resp BP Pulse Ox 97.1 F L 121 H 19 H 131/84 H 97 03/24/20 02:00 03/24/20 02:00 03/24/20 02:00 03/24/20 02:00 03/24/20 02:00 Oxygen Flow Rate (L/min) 15 Oxygen Delivery Method Bi-pap Weight: 60.4 kg Body Mass Index (BMI) 20.2 Intake and Output for Last 24 Hours 03/22/20 03/23/20 03/24/20 23:59 23:59 23:59 Intake Total 112 / 112 Output Total 1000 / 1000 Balance -888 / -888 General: Disoriented, Lethargic HEENT: Atraumatic, Normocephalic Neck: Supple, Trachea Midline Lungs: Clear to auscultation, Normal air movement Cardiovascular: Regular rate, Normal S1, Normal S2 Abdomen: Bowel Sounds Present, Soft, Non Tender Extremities: No edema, Capillary Refill Less than 3 Seconds Skin: No rashes, No breakdown Musculoskeletal: No Tenderness to Palpation of Joints or Extremities Neurological: - - Patient was not following commands to appropriately examined cranial nerves. Psych/Mental Status: Normal Affect, Appropriate Laboratory Results 03/23/20 23:50: WBC 14.5 H, RBC 4.79, Hgb 13.1, Hct 41.6, MCV 86.8, MCH 27.3, MCHC 31.5 L, RDW Std Deviation 46.8 H, RDW Coeff of Sohail 14.7 H, Plt Count 323, MPV 9.8, Immature Gran % (Auto) 0.300, Neut % (Auto) 82.2 H, Lymph % (Auto) 13.3 L, [place] % (Auto) 4.0, Eos % (Auto) 0.1, Baso % (Auto) 0.1, Absolute Neuts (auto) 12.0 H, Absolute Lymphs (auto) 1.93, Nucleated RBC % 0 03/23/20 23:50: Sodium 140, Potassium 3.9, Chloride 104, Carbon Dioxide 25.0, Anion Gap 11, BUN 14, Creatinine 1.39 H, Estim Creat Clear Calc 70.01, Est GFR (MDRD) Af Amer 80, Est GFR (MDRD) Non-Af 66, BUN/Creatinine Ratio 10.1, Glucose 125 H, Calcium 9.2, Total Bilirubin 0.30, AST 82 H, ALT 95 H, Alkaline Phosphatase 141 H, Troponin I < 0.015, Total Protein 8.1, Albumin 3.5, Globulin 4.6 H, Albumin/Globulin Ratio 0.8 L 03/23/20 23:50: Ethyl Alcohol < 3.0 03/24/20 01:05: Urine Opiates Screen POSITIVE H, Urine Methadone Screen NEGATIVE, Ur Barbiturates Screen NEGATIVE, Ur Phencyclidine Scrn NEGATIVE, Ur Amphetamines Screen POSITIVE H, U Methamphetamin-MDMA POSITIVE H, U Benzodiazepines Scrn NEGATIVE, Urine Cocaine Screen NEGATIVE, U Cannabinoids Screen POSITIVE H, Ur Drug Screen Comment 03/24/20 01:11: Specimen Type ANGELA, VBG pH 7.33, VBG pO2 99 H, VBG HCO3 29 H, VBG Total CO2 30, VBG O2 Sat (Calc) 97 H, VBG Base Excess 3, POC Mix VBG pCO2 Pt Tmp 54.6 H, O2 Delivery Device NRB, Liter Flow 15.0 03/24/20 01:35: Specimen Type ART, Sample Site R Brach, pH 7.33 L, Bicarbonate Actual 28.9 H, Total CO2 31, Base Excess 3 H, O2 Saturation 97, O2 % 40, ABG pCO2 55.5 H, ABG pO2 103 H, Leonardo Test Positive, Respiration Rate 12, O2 Delivery Device BiPAP, POC PEEP 8 Current Medications Nitroglycerin/Dextrose () 250 mls @ 6 mls/hr CONT INF .[id number] FOR[facility], [facility]; Protocol Last Admin: 03/24/20 01:47 Dose: Not Given Documented by: Sodium Chloride () 250 mls @ 15 mls/hr IV .[id number] PRN PRN Reason: Saline Flush Sodium Chloride () 250 mls @ 15 mls/hr IV .[id number] PRN PRN Reason: Additional IVPB Infusion Sodium Chloride (0.9% Saline Lock 10 Ml Syringe) 10 - 40 ml IV UD PRN PRN Reason: SALINE FLUSH Assessment/Plan All Active Problems Heroin overdose (Acute) Opiate abuse, continuous (Acute) IV drug abuse (Acute) IV drug user (Acute) Acute respiratory failure Likely secondary to drug overdose. Placed on BiPAP at emergency department. Continue patient on BiPAP and admit to intensive care unit. Configuration Management Specialist consult. Drug overdose Urine drug screen was positive for opiates; methamphetamines and cannabinoids. Continue on BiPAP. Educate when appropriate. Flash pulmonary edema/aspiration pneumonia. Pressure chest x-ray by radiologist: Diffuse bilateral airspace disease compatible pulmonary edema, pneumonia or some combination thereof. Actual chest x-ray was independently interpreted. I agree with radiologist interpretation. Lasix was given at emergency department. Repeat additional 40 mg IV Lasix in a.m. check BMP. And assess further needs of Lasix. Potassium 10 mEq was ordered but patient was too lethargic to take anything by mouth. Trend BMP. Cardiogram on 02/27/2020 showed estimated EF of 53%. Echo cardiogram at that time was done to rule out endocarditis. Patient was covered with Unasyn for possible aspiration pneumonia. Unasyn continued. TAMIE On presentation his creatinine was 1.39. Baseline creatinine is normal. His creatinine improved with IV Lasix. Trend BMP. Repeat Lasix in a.m.. Consider further Lasix dose. Levator liver enzymes Check acute hepatitis panel Ultrasound of liver ordered. Tobacco abuse Counseled when appropriate DVT prophylaxis Subcutaneous Lovenox. Inpatient E&M: [id number] Init Hosp L3
[2020-03-24 03:01] LABS: Absolute Lymphocyte Count 1.17 X10^3/uL (0.83-4.51); Absolute Neutrophil Count 13.3 X10^3/uL (2.0-7.7); Basophil# 0.02 X10^3/uL; Basophil% 0.1 % (0-1); Hemoglobin 12.5 g/dL (13.0-16.5); Lymphocyte # 1.17 X10^3/ul (4.0); Lymphocyte % 7.7 % (19-41); Mean Corp Hgb Conc 32.1 g/dL (32-36); Mean Corpuscular Hgb 27.3 pg (27.0-32.0); Mean Corpuscular Volume 85.2 fL (80-94); Mean Platelet Vol. 9.7 fl (6.2-12.0); Monocyte# 0.74 X10^3/uL; Monocyte% 4.8 % (0-10); NRBC Flagged by Analyzer 0 % (0-5); Neutrophil # 13.28 X10^3/uL (2.7-7.7); Neutrophil % 86.9 % (47-70); Platelet Count 266 K/mm3 (150-450); RBC Distribution Width CV 14.7 % (11.6-14.6); RBC Distribution Width SD 45.2 fl (35.1-43.9); Red Blood Count 4.58 M/mm3 (4.6-6.2); White Blood Count 15.3 K/mm3 (4.4-11.0)
[2020-03-24 03:04] LABS: BNP,B-Type NATRIURETIC PEPTIDE 2.5 pg/mL (0-100)
[2020-03-24 03:18] LABS: ALB/GLOB Ratio 0.8 RATIO (0.9-2.4); AST(SGOT) 70 U/L (15-37); Alanine Aminotransfer ALT/SGPT 90 U/L (16-61); Albumin, Serum 3.3 g/dL (3.2-5.0); Alkaline Phosphatase 109 U/L (45-117); Anion Gap 4 (5-15); BUN 16 mg/dL (7-18); BUN/Creat Ratio 14.4 RATIO (10-20); Calcium,Total 8.8 mg/dL (8.5-10.1); Chloride 102 mmol/L (98-107); Creatinine, Serum 1.11 mg/dL (0.70-1.30); EST Glomerular Filtration Rate 86 mL/min (>60); Est Glom Filt Rate - Afr Amer 104 mL/min (>60); Estimated Creatinine Clearance 83.22 ml/min; Globulin 4.3 g/dL (2.2-4.2); Glucose 113 mg/dL (74-106); Protein, Total 7.6 g/dL (6.4-8.2); Sodium Level 136 mmol/L (136-145)
[2020-03-24] MEDS: 0.9% Saline Lock 10 ML Syringe IV (05:13)
--- NOTE | 2020-03-24 05:55 | US_ITS ---
STUDY: ABDOMINAL ULTRASOUND - RIGHT UPPER QUADRANT REASON FOR VISIT: Male, 24 years old abnormal LABS TECHNIQUE: Ultrasound evaluation of the right upper quadrant was performed with real-time and static sadler-scale imaging. TECHNICAL QUALITY: Adequate. COMPARISON: None. FINDINGS: Liver: The liver measures 15.4 cm. There is normal echogenicity of the liver. The bile ducts are within normal limits. There is hepatic color flow. The direction of portal flow is hepatopetal. There is no demonstrated mass lesion. Gallbladder: Normal distended gallbladder. The gallbladder wall measures 2.7 mm. There is a negative sonographic Kaur''s sign. There is no pericholecystic fluid. There are no gallstones. Common Bile Duct (C.B.D.): The common bile duct measures 4 mm. Pancreas: The pancreas is obscured by bowel gas. Right Kidney: Normal size of the right kidney. The right kidney measures 10.7 cm. Normal renal cortex. The right cortex measures 1.5 cm. There is no demonstrated renal mass or cyst. There is no right hydronephrosis. US/Liver IMPRESSION: Normal right upper quadrant ultrasound examination. Electronically Signed: Siria Dockery, at 13:14 EST Tel , Service support ,
--- NOTE | 2020-03-24 09:55 | ECHOL_ITS ---
Reason For Study: CHF, R/O ENDOCARDITIS Procedure This was a limited 2D transthoracic echocardiogram. Exam performed portable in ICU/CCU. Left Ventricle Normal LV size. Left ventricular systolic function is normal. The estimated ejection fraction is 60 %. No regional wall motion abnormalities noted. Right Ventricle Normal RV size. Normal systolic function. Atria Normal left atrium. Normal right atrium. Mitral Valve Normal mitral valve. Trivial mitral valve insufficiency. Tricuspid Valve Normal tricuspid valve. Mild to moderate (1-2+) tricuspid valve insufficiency. Pulmonary artery systolic pressure is 50 mmHg. Moderate pulmonary hypertension. Aortic Valve Normal aortic valve. Trisinus/trileaflet aortic valve. Pulmonic Valve Normal pulmonic valve. Great Vessels Normal aortic root. The pulmonary artery is normal size. Normal inferior vena cava. Pericardium/Pleural No pericardial effusion. MMode/2D Measurements & Calculations LVIDd: 4.4 cm IVSd: 0.90 cm LVAd ap4: 25.9 cm2 LVIDs: 2.8 cm LVPWd: 0.91 cm EDV(MOD-sp4): 76.7 ml FS: 36.8 % EDV(sp4-el): 78.2 ml LVAs ap4: 13.9 cm2 ESV(MOD-sp4): 28.6 ml ESV(sp4-el): 28.9 ml EF(MOD-sp4): 62.8 % EF(sp4-el): 63.0 % SV(MOD-sp4): 48.2 ml SV(sp4-el): 49.3 ml Doppler Measurements & Calculations TR max rolando: 341.2 cm/sec TR max P.6 mmHg Interpretation Summary Normal LV size. Left ventricular systolic function is normal. The estimated ejection fraction is 60 %. Pulmonary artery systolic pressure is 50 mmHg. Moderate pulmonary hypertension. There is no evidence of a mass or vegetation. This does not rule out endocarditis. Ordering Physician: Jarad Dela Cruz Performed By: Rebekah Wilkinson RDCS
--- NOTE | 2020-03-24 10:45 | CON.PCM_ITS ---
Problem List (1) Acute respiratory failure with hypoxia Status: Acute (2) Heroin overdose Status: Acute Qualifiers: Encounter type: initial encounter Injury intent: accidental or unintentional Qualified Code(s): T40.1X1A - Poisoning by heroin, accidental (unintentional), initial encounter (3) Open wound of right forearm with complication Status: Inactive (4) Methamphetamine abuse Status: Chronic (5) Opiate abuse, continuous Status: Acute (6) Sepsis Status: Inactive (7) IV drug abuse Status: Acute Reason for Consult Date of Consultation: 03/24/20 Reason for Consultation: Respiratory failure History of Present Illness: The patient is a 24 year old M with past medical history listed below, who presented to [facility] on 03/23/2020 secondary to concerns for overdose. Patient reportedly had EMS called on him by friends secondary to altered mentation. Patient was found confused and lethargic. Patient was given 1 mg of Narcan with improvement. Patient reportedly admitted to ER physicians that he was injecting heroin, but had no other complaints at that time. Patient has had multiple admissions to the ED recently and is left AMA several times. Patient reportedly was saturating 75% on room air and was placed on nonrebreather. In the ER, patient was noted to be hypoxic. Patient had a chest x-ray concerning for pulmonary edema. Patient was also given Unasyn for possible aspiration, along with 40 mg of Lasix. Patient was placed on BiPAP therapy. Laboratory work-up showed a significant leukocytosis of 14.5 with elevated creatinine of 1.39, slightly elevated liver enzymes and a negative alcohol level. Cultures were obtained and patient was admitted to the intensive care unit for further evaluation. Since being in the intensive care unit, patient has received an additional dose of Lasix therapy. Patient's BiPAP was down to 30% this morning on my evaluation. Patient does have a liver ultrasound currently pending, in addition to an echocardiogram. Patient is not cooperative with providing any additional history at this time, so review of systems could not be completed. Past Medical History Past Medical History (Chronic Problems): Chronic Problems Methamphetamine abuse (Chronic) Smoker (Chronic) Medical History: Medical History (Last Reviewed 02/27/20 @ 01:[address] Edwin Lala MD) IV drug user (Acute) F19.90 Allergies No Known Allergies Allergy (Verified 02/27/20 01:48) Home Medications: Ambulatory Orders Medication Instructions Recorded NK 12/07/20 Surgical History: herniorrhaphy, - Lives: With Family Smoking Status: Current every day smoker Tobacco Use: Cigarettes Alcohol: None Drugs: None - *Family History Maternal History Items: - - Denies knowledge of maternal medical history Paternal History Items: - - Denies knowledge of paternal medical history Review of Systems Unable to obtain accurate/complete ROS d/t: Patient cooperation Patient Problems: Active and Suspected Problems Heroin overdose (Acute) Opiate abuse, continuous (Acute) IV drug abuse (Acute) IV drug user (Acute) Objective: Chest x-ray showed bilateral alveolar infiltrates throughout both lung sandoval. Patient did have an echocardiogram completed last month that showed an EF of 53% with no significant valvular abnormalities or vegetations noted. Pathology of right forearm was consistent with abscess and this eventually grew Streptococcus group A. Blood cultures have not been positive in the past and no fungus was noted on pathology. - Physical Exam Vitals/I&O's: Vital Signs Temp Pulse Resp BP Pulse Ox 36.3 C L 103 H 16 116/72 94 03/24/20 08:00 03/24/20 10:00 03/24/20 10:00 03/24/20 10:00 03/24/20 10:00 Oxygen Flow Rate (L/min) 4 Oxygen Delivery Method Bi-pap Weight: 57.334 kg Body Mass Index (BMI) 18.6 Intake and Output for Last 24 Hours 03/22/20 03/23/20 03/24/20 23:59 23:59 23:59 Intake Total 224 / 224 Output Total 1550 / 1550 Balance -1326 / -1326 General: Alert, No apparent distress - On BiPAP, - - Thin build. HEENT: Atraumatic, PERRLA, EOMI, Normocephalic, - - Scleral injection without icterus Oral: No Gingival or Mucosal Lesions/ Ulcerations, Dry Mucosa Neck: Supple, No JVD, No Nodes, Trachea Midline Lungs: No rhonchi, No wheeze, No rales, Diminished, - - Symmetric expansion. Cardiovascular: Normal S1, Normal S2, No murmurs, No rub noted, No Gallop, Tachycardic Abdomen: Bowel Sounds Present, Soft, Non Tender, Non-Distended Extremities: No clubbing, No cyanosis, No edema, - - No splinter hemorrhages noted. Skin: Ulcer/ Wound - Right forearm Musculoskeletal: No Tenderness to Palpation of Joints or Extremities Lymphatic: No Cervical, Supraclavicular, or Inguinal Adenopathy Neurological: Cranial nerves II-XII grossly intact, Neuro grossly intact, Motor Exam 5/5 strength throughout Psych/Mental Status: Flat Affect Microbiology Past 72 Hours 03/24/20 06:30 Mucosa - Nasopharyngeal SARS-CoV-2 Antigen (Rapid) - Final Laboratory Results 03/23/20 23:50: WBC 14.5 H, RBC 4.79, Hgb 13.1, Hct 41.6, MCV 86.8, MCH 27.3, MCHC 31.5 L, RDW Std Deviation 46.8 H, RDW Coeff of Sohail 14.7 H, Plt Count 323, MPV 9.8, Immature Gran % (Auto) 0.300, Neut % (Auto) 82.2 H, Lymph % (Auto) 13.3 L, Hardy % (Auto) 4.0, Eos % (Auto) 0.1, Baso % (Auto) 0.1, Absolute Neuts (auto) 12.0 H, Absolute Lymphs (auto) 1.93, Nucleated RBC % 0 03/23/20 23:50: Sodium 140, Potassium 3.9, Chloride 104, Carbon Dioxide 25.0, Anion Gap 11, BUN 14, Creatinine 1.39 H, Estim Creat Clear Calc 70.01, Est GFR (MDRD) Af Amer 80, Est GFR (MDRD) Non-Af 66, BUN/Creatinine Ratio 10.1, Glucose 125 H, Calcium 9.2, Total Bilirubin 0.30, AST 82 H, ALT 95 H, Alkaline Phosphatase 141 H, Troponin I < 0.015, Total Protein 8.1, Albumin 3.5, Globulin 4.6 H, Albumin/Globulin Ratio 0.8 L 03/23/20 23:50: Ethyl Alcohol < 3.0 03/23/20 23:50: B-Natriuretic Peptide 2.5 03/24/20 01:05: Urine Opiates Screen POSITIVE H, Urine Methadone Screen NEGATIVE, Ur Barbiturates Screen NEGATIVE, Ur Phencyclidine Scrn NEGATIVE, Ur Amphetamines Screen POSITIVE H, U Methamphetamin-MDMA POSITIVE H, U Benzodiazepines Scrn NEGATIVE, Urine Cocaine Screen NEGATIVE, U Cannabinoids Screen POSITIVE H, Ur Drug Screen Comment 03/24/20 01:11: Specimen Type ANGELA, VBG pH 7.33, VBG pO2 99 H, VBG HCO3 29 H, VBG Total CO2 30, VBG O2 Sat (Calc) 97 H, VBG Base Excess 3, POC Mix VBG pCO2 Pt Tmp 54.6 H, O2 Delivery Device NRB, Liter Flow 15.0 03/24/20 01:35: Specimen Type ART, Sample Site R Brach, pH 7.33 L, Bicarbonate Actual 28.9 H, Total CO2 31, Base Excess 3 H, O2 Saturation 97, O2 % 40, ABG pCO2 55.5 H, ABG pO2 103 H, Leonardo Test Positive, Respiration Rate 12, O2 Delivery Device BiPAP, POC PEEP 8 03/24/20 03:00: WBC 15.3 H, RBC 4.58 L, Hgb 12.5 L, Hct 39.0 L, MCV 85.2, MCH 27.3, MCHC 32.1, RDW Std Deviation 45.2 H, RDW Coeff of Sohail 14.7 H, Plt Count 266, MPV 9.7, Immature Gran % (Auto) 0.500, Neut % (Auto) 86.9 H, Lymph % (Auto) 7.7 L, Hardy % (Auto) 4.8, Eos % (Auto) 0.0, Baso % (Auto) 0.1, Absolute Neuts (auto) 13.3 H, Absolute Lymphs (auto) 1.17, Nucleated RBC % 0 03/24/20 03:00: Sodium 136, Potassium 4.0, Chloride 102, Carbon Dioxide 30.0, Anion Gap 4 L, BUN 16, Creatinine 1.11, Estim Creat Clear Calc 83.22, Est GFR (MDRD) Af Amer 104, Est GFR (MDRD) Non-Af 86, BUN/Creatinine Ratio 14.4, Glucose 113 H, Calcium 8.8, Total Bilirubin 0.30, AST 70 H, ALT 90 H, Alkaline Phosphatase 109, Total Protein 7.6, Albumin 3.3, Globulin 4.3 H, Albumin/Globu gianluca Ratio 0.8 L 03/24/20 04:30: Hepatitis A IgM Ab Pending, Hep Bs Antigen Pending, Hep B Core IgM Ab Pending, Hepatitis C Ab (EIA) Pending Current Medications Heparin Sodium (Porcine) (Heparin Injection (Vial) 5,000 Unit/Ml Vial) 5,000 unit SC Q12 LAURA Sodium Chloride () 250 mls @ 15 mls/hr IV .[id number] PRN PRN Reason: Saline Flush Sodium Chloride () 250 mls @ 15 mls/hr IV .[id number] PRN PRN Reason: Additional IVPB Infusion Ampicillin Sodium/Sulbactam (Sodium 3 gm/ Sodium Chloride) 112 mls @ 150 mls/hr IV Q6 LAURA Last Infusion: 03/24/20 06:13 Dose: Infused Documented by: Sodium Chloride (0.9% Saline Lock 10 Ml Syringe) 10 - 40 ml IV UD PRN PRN Reason: SALINE FLUSH Last Admin: 03/24/20 05:13 Dose: 40 ml Documented by: Clinical Impression(s) from Imaging Studies Chest X-Ray 03/23/20 23:45 IMPRESSION: Diffuse bilateral airspace disease compatible with pulmonary edema, pneumonia, or some combination thereof. As correlated with the clinical history, noncardiogenic pulmonary edema is likely. at 0102 Reported and signed by: Michael Browne MD Electronically Signed: Michael Browne, at 1:01 EST Tel , Service support , Assessment/Plan Active and Suspected Problems Heroin overdose (Acute) Opiate abuse, continuous (Acute) IV drug abuse (Acute) IV drug user (Acute) RECOMMENDATIONS: 1. Attempt discontinuation of BiPAP therapy 2. Limited echocardiogram to evaluate for endocarditis 3. Continue empiric antibiotics for possible aspiration 4. Wound nurse to evaluate right forearm 5. Await diagnostic studies IMPRESSIONS: 1. Acute hypoxemic respiratory failure secondary to flash pulmonary edema with possible element of aspiration Patient's chest imaging is not suggestive of aspiration alone. Patient may have noncardiogenic pulmonary edema secondary to Narcan. Patient has been responsive to positive pressure and Lasix therapy. Patient did have an echocardiogram in February showing a relatively preserved ejection fraction of 53%. Patient had responded to Narcan and admitted to heroin. However, pulmonary edema from mitral regurgitation would be a concern. Patient does have an open wound that could lead to bacteremia. Will obtain a limited echocardiogram for vegetation. If patient's blood cultures are positive, eval uation by YESSENIA may be necessary. Patient does have a smoking history, but does not appear to have significant emphysema or hyperinflation on chest x-ray. We will continue with empiric antibiotics for now. 2. Illicit drug use/acute kidney injury Patient has tested positive for opiates, methamphetamines and cannabinoids. Patient reportedly has been in the ER multiple times and left AMA. Social work is aware and will attempt to meet with him before he tries to leave. 3. Acute kidney injury Patient appears to have responded to Lasix therapy. Clinical suspicion for an element of ATN secondary to hypoxia. Continue to monitor renal function. No indication for renal replacement therapy at this time. 4. Thin build/elevated liver enzymes/tobacco abuse/poor cooperation Complicates care, management, recovery and prognosis. Elevated liver enzymes may be secondary to illicit drugs, acute hepatitis or hepatic congestion. No bleeding complications have been noted at this time. These can be reevaluated in the future. Liver ultrasound has been ordered. Inpatient E&M: 12603 Init Hosp L3
--- NOTE | 2020-03-24 11:34 | CASEMGMT ---
Addendum entered by Fanny Pisano 03/24/20 14:39: SW attempted to see pt again this afternoon, pt is still sleeping and not easily waking, woke briefly, looked at SW, shut eyes. SW will attempt to speak w/pt again tomorrow. NADIA Nixon Original Note: SW participated in ICU rounds. SW attempted to speak w/patient, however he fell asleep multiple times during the conversation. Pt did confirm he is still living with his mother. When asked, pt shook head in regard to following up with [facility]. Pt also shook head in regard to wanting to harm himself. SW called [facility], as pt was set up with them for home health care on last admission. Sandy at [facility]([phone]) confirms pt is still current with them. SW will continue to follow, will attempt to speak w/pt again later today vs tomorrow regarding substance abuse and possible referral to [facility]. NADIA Nixon
--- NOTE | 2020-03-24 13:13 | NURSING ---
wound photo: right forearm
[2020-03-25] VITALS (12 sets, daily range): BP systolic 108–129; BP diastolic 71–90; PULSE 68–95; RESP 10–22; TEMP 36.8–37; O2SAT 98–100
[2020-03-25] MEDS: Heparin Injection (Vial) 5,000 UNIT/ML VIAL 5000 UNIT SC (00:52)
[2020-03-25 04:03] LABS: Absolute Neutrophil Count 5.3 X10^3/uL (2.0-7.7); Basophil# 0.02 X10^3/uL; Basophil% 0.2 % (0-1); Eosinophil# 0.21 X10^3/uL; Eosinophils% 2.2 % (0-5); Hematocrit 36.2 % (40-54); Hemoglobin 11.4 g/dL (13.0-16.5); Lymphocyte % 35.1 % (19-41); Mean Corp Hgb Conc 31.5 g/dL (32-36); Mean Corpuscular Hgb 26.8 pg (27.0-32.0); Mean Platelet Vol. 9.6 fl (6.2-12.0); Monocyte# 0.58 X10^3/uL; Monocyte% 6.2 % (0-10); NRBC Flagged by Analyzer 0 % (0-5); Neutrophil # 5.27 X10^3/uL (2.7-7.7); Platelet Count 266 K/mm3 (150-450); RBC Distribution Width CV 14.7 % (11.6-14.6); RBC Distribution Width SD 45.9 fl (35.1-43.9); Red Blood Count 4.26 M/mm3 (4.6-6.2); White Blood Count 9.4 K/mm3 (4.4-11.0)
[2020-03-25 04:20] LABS: ALB/GLOB Ratio 0.7 RATIO (0.9-2.4); AST(SGOT) 52 U/L (15-37); Alanine Aminotransfer ALT/SGPT 74 U/L (16-61); Albumin, Serum 3.1 g/dL (3.2-5.0); Alkaline Phosphatase 87 U/L (45-117); Anion Gap 3 (5-15); BUN 15 mg/dL (7-18); BUN/Creat Ratio 16.8 RATIO (10-20); Calcium,Total 9.1 mg/dL (8.5-10.1); Chloride 102 mmol/L (98-107); EST Glomerular Filtration Rate 110 mL/min (>60); Est Glom Filt Rate - Afr Amer 133 mL/min (>60); Estimated Creatinine Clearance 102.63 ml/min; Globulin 4.3 g/dL (2.2-4.2); Glucose 85 mg/dL (74-106); Potassium 3.4 mmol/L (3.5-5.1); Protein, Total 7.4 g/dL (6.4-8.2); Sodium Level 138 mmol/L (136-145)
[2020-03-25] MEDS: 0.9% Saline Lock 10 ML Syringe IV (05:45)
--- NOTE | 2020-03-25 07:06 | PN_ITS ---
Subjective: Patient did well overnight. No acute issues were reported. Patient has been off of BiPAP for most of the evening. No pressors have been required for hypotension. Patient is not reporting any pain or shortness of breath at this time. Objective: Liver ultrasound was within normal limits. Limited echo showed no vegetation, but elevated pulmonary artery pressure of 50 mmHg with preserved ejection fraction of 60%. General: Alert, Oriented x3, Cooperative, No apparent distress, - - Thin build. HEENT: Atraumatic, PERRLA, EOMI, Normocephalic, - - No scleral icterus or injection noted Oral: Moist Mucosa, No Gingival or Mucosal Lesions/ Ulcerations Neck: Supple, No JVD, No Nodes, Trachea Midline Lungs: Clear to auscultation, Normal air movement, No rhonchi, No wheeze, No rales, - - Symmetric expansion. No dullness to percussion. Cardiovascular: Regular rate, Regular Rhythm, Normal S1, Normal S2, No murmurs, No rub noted, No Gallop Abdomen: Bowel Sounds Present, Soft, Non Tender, Non-Distended, Obese Extremities: No clubbing, No cyanosis, No edema, Capillary Refill Less than 3 Seconds Skin: - - No change from previous Musculoskeletal: No Tenderness to Palpation of Joints or Extremities Lymphatic: No Cervical, Supraclavicular, or Inguinal Adenopathy Neurological: Cranial nerves II-XII grossly intact, Neuro grossly intact, Motor Exam 5/5 strength throughout Psych/Mental Status: Alert and oriented to time, place, person, mood and affect Vital Signs Temp Pulse Resp BP Pulse Ox 36.8 C 71 20 H 115/89 H 99 03/25/20 04:00 03/25/20 06:00 03/25/20 06:00 03/25/20 06:00 03/25/20 06:00 Oxygen Flow Rate (L/min) 4 Oxygen Delivery Method Room Air Weight: 57.334 kg Body Mass Index (BMI) 18.6 Intake and Output for Last 24 Hours 03/23/20 03/24/20 03/25/20 23:59 23:59 23:59 Intake Total 1048 / 1098 212 / 212 Output Total 1999 / 1999 325 / 325 Balance -952 / -902 -113 / -113 Labs (Last 48 Hours) 03/23/20 03/23/20 03/23/20 23:50 23:50 23:50 WBC 14.5 H RBC 4.79 Hgb 13.1 Hct 41.6 MCV 86.8 MCH 27.3 MCHC 31.5 L RDW Std Deviation 46.8 H RDW Coeff of Sohail 14.7 H Plt Count 323 MPV 9.8 Immature Gran % (Auto) 0.300 Neut % (Auto) 82.2 H Lymph % (Auto) 13.3 L [place] % (Auto) 4.0 Eos % (Auto) 0.1 Baso % (Auto) 0.1 Absolute Neuts (auto) 12.0 H Absolute Lymphs (auto) 1.93 Nucleated RBC % 0 Specimen Type Sample Site pH Bicarbonate Actual Total CO2 Base Excess O2 Saturation O2 % ABG pCO2 ABG pO2 Loenardo Test VBG pH VBG pO2 VBG HCO3 VBG Total CO2 VBG O2 Sat (Calc) VBG Base Excess POC Mix VBG pCO2 Pt Tmp Respiration Rate O2 Delivery Device Liter Flow POC PEEP Sodium 140 Potassium 3.9 Chloride 104 Carbon Dioxide 25.0 Anion Gap 11 BUN 14 Creatinine 1.39 H Estim Creat Clear Calc 70.01 Est GFR (MDRD) Af Amer 80 Est GFR (MDRD) Non-Af 66 BUN/Creatinine Ratio 10.1 Glucose 125 H Calcium 9.2 Total Bilirubin 0.30 AST 82 H ALT 95 H Alkaline Phosphatase 141 H Troponin I < 0.015 B-Natriuretic Peptide Total Protein 8.1 Albumin 3.5 Globulin 4.6 H Albumin/Globulin Ratio 0.8 L Urine Opiates Screen Urine Methadone Screen Ur Barbiturates Screen Ur Phencyclidine Scrn Ur Amphetamines Screen U Methamphetamin-MDMA U Benzodiazepines Scrn Urine Cocaine Screen U Cannabinoids Screen Ur Drug Screen Comment Ethyl Alcohol < 3.0 Hepatitis A IgM Ab Hep Bs Antigen Hep B Core IgM Ab Hepatitis C Ab (EIA) 03/23/20 03/24/20 03/24/20 23:50 01:05 01:11 WBC RBC Hgb Hct MCV MCH MCHC RDW Std Deviation RDW Coeff of Sohail Plt Count MPV Immature Gran % (Auto) Neut % (Auto) Lymph % (Auto) [place] % (Auto) Eos % (Auto) Baso % (Auto) Absolute Neuts (auto) Absolute Lymphs (auto) Nucleated RBC % Specimen Type ANGELA Sample Site pH Bicarbonate Actual Total CO2 Base Excess O2 Saturation O2 % ABG pCO2 ABG pO2 Leonardo Test VBG pH 7.33 VBG pO2 99 H VBG HCO3 29 H VBG Total CO2 30 VBG O2 Sat (Calc) 97 H VBG Base Excess 3 POC Mix VBG pCO2 Pt Tmp 54.6 H Respiration Rate O2 Delivery Device NRB Liter Flow 15.0 POC PEEP Sodium Potassium Chloride Carbon Dioxide Anion Gap BUN Creatinine Estim Creat Clear Calc Est GFR (MDRD) Af Amer Est GFR (MDRD) Non-Af BUN/Creatinine Ratio Glucose Calcium Total Bilirubin AST ALT Alkaline Phosphatase Troponin I B-Natriuretic Peptide 2.5 Total Protein Albumin Globulin Albumin/Globulin Ratio Urine Opiates Screen POSITIVE H Urine Methadone Screen NEGATIVE Ur Barbiturates Screen NEGATIVE Ur Phencyclidine Scrn NEGATIVE Ur Amphetamines Screen POSITIVE H U Methamphetamin-MDMA POSITIVE H U Benzodiazepines Scrn NEGATIVE Urine Cocaine Screen NEGATIVE U Cannabinoids Screen POSITIVE H Ur Drug Screen Comment Ethyl Alcohol Hepatitis A IgM Ab Hep Bs Antigen Hep B Core IgM Ab Hepatitis C Ab (EIA) 03/24/20 03/24/20 03/24/20 01:35 03:00 03:00 WBC 15.3 H RBC 4.58 L Hgb 12.5 L Hct 39.0 L MCV 85.2 MCH 27.3 MCHC 32.1 RDW Std Deviation 45.2 H RDW Coeff of Sohail 14.7 H Plt Count 266 MPV 9.7 Immature Gran % (Auto) 0.500 Neut % (Auto) 86.9 H Lymph % (Auto) 7.7 L [place] % (Auto) 4.8 Eos % (Auto) 0.0 Baso % (Auto) 0.1 Absolute Neuts (auto) 13.3 H Absolute Lymphs (auto) 1.17 Nucleated RBC % 0 Specimen Type ART Sample Site R Brach pH 7.33 L Bicarbonate Actual 28.9 H Total CO2 31 Base Excess 3 H O2 Saturation 97 O2 % 40 ABG pCO2 55.5 H ABG pO2 103 H Leonardo Test Positive VBG pH VBG pO2 VBG HCO3 VBG Total CO2 VBG O2 Sat (Calc) VBG Base Excess POC Mix VBG pCO2 Pt Tmp Respiration Rate 12 O2 Delivery Device BiPAP Liter Flow POC PEEP 8 Sodium 136 Potassium 4.0 Chloride 102 Carbon Dioxide 30.0 Anion Gap 4 L BUN 16 Creatinine 1.11 Estim Creat Clear Calc 83.22 Est GFR (MDRD) Af Amer 104 Est GFR (MDRD) Non-Af 86 BUN/Creatinine Ratio 14.4 Glucose 113 H Calcium 8.8 Total Bilirubin 0.30 AST 70 H ALT 90 H Alkaline Phosphatase 109 Troponin I B-Natriuretic Peptide Total Protein 7.6 Albumin 3.3 Globulin 4.3 H Albumin/Globulin Ratio 0.8 L Urine Opiates Screen Urine Methadone Screen Ur Barbiturates Screen Ur Phencyclidine Scrn Ur Amphetamines Screen U Methamphetamin-MDMA U Benzodiazepines Scrn Urine Cocaine Screen U Cannabinoids Screen Ur Drug Screen Comment Ethyl Alcohol Hepatitis A IgM Ab Hep Bs Antigen Hep B Core IgM Ab Hepatitis C Ab (EIA) 03/24/20 03/25/20 03/25/20 04:30 04:00 04:00 WBC 9.4 RBC 4.26 L Hgb 11.4 L Hct 36.2 L MCV 85.0 MCH 26.8 L MCHC 31.5 L RDW Std Deviation 45.9 H RDW Coeff of Sohail 14.7 H Plt Count 266 MPV 9.6 Immature Gran % (Auto) 0.300 Neut % (Auto) 56.0 Lymph % (Auto) 35.1 [place] % (Auto) 6.2 Eos % (Auto) 2.2 Baso % (Auto) 0.2 Absolute Neuts (auto) 5.3 Absolute Lymphs (auto) 3.30 Nucleated RBC % 0 Specimen Type Sample Site pH Bicarbonate Actual Total CO2 Base Excess O2 Saturation O2 % ABG pCO2 ABG pO2 Leonardo Test VBG pH VBG pO2 VBG HCO3 VBG Total CO2 VBG O2 Sat (Calc) VBG Base Excess POC Mix VBG pCO2 Pt Tmp Respiration Rate O2 Delivery Device Liter Flow POC PEEP Sodium 138 Potassium 3.4 L Chloride 102 Carbon Dioxide 33.0 H Anion Gap 3 L BUN 15 Creatinine 0.90 Estim Creat Clear Calc 102.63 Est GFR (MDRD) Af Amer 133 Est GFR (MDRD) Non-Af 110 BUN/Creatinine Ratio 16.8 Glucose 85 Calcium 9.1 Total Bilirubin 0.60 AST 52 H ALT 74 H Alkaline Phosphatase 87 Troponin I B-Natriuretic Peptide Total Protein 7.4 Albumin 3.1 L Globulin 4.3 H Albumin/Globulin Ratio 0.7 L Urine Opiates Screen Urine Methadone Screen Ur Barbiturates Screen Ur Phencyclidine Scrn Ur Amphetamines Screen U Methamphetamin-MDMA U Benzodiazepines Scrn Urine Cocaine Screen U Cannabinoids Screen Ur Drug Screen Comment Ethyl Alcohol Hepatitis A IgM Ab Pending Hep Bs Antigen Pending Hep B Core IgM Ab Pending Hepatitis C Ab (EIA) Pending Microbiology 03/24/20 06:30 Mucosa - Nasopharyngeal SARS-CoV-2 Antigen (Rapid) - Final Clinical Impression(s) from Imaging Studies Liver Ultrasound 03/24/20 05:55 IMPRESSION: Normal right upper quadrant ultrasound examination. Electronically Signed: Siria Dockery, at 13:14 EST Tel , Service support , Medical Necessity - Tobacco Use Smoking Status: Current every day smoker Tobacco Use: Cigarettes Assessment/Plan All Active Problems Heroin overdose (Acute) Acute respiratory failure with hypoxia (Acute) Opiate abuse, continuous (Acute) IV drug abuse (Acute) IV drug user (Acute) RECOMMENDATIONS: 1. Walking oximetry prior to discharge 2. Obtain discharge wound recommendations 3. Transition to p.o. antibiotics and treat for 10 days 4. Okay to discharge from a pulmonary/critical care perspective 5. Hemodynamically stable on room air. Will sign off from a critical care perspective IMPRESSIONS: 1. Acute hypoxemic respiratory failure secondary to flash pulmonary edema with possible element of aspiration Patient's chest imaging is not suggestive of aspiration alone. Patient may have noncardiogenic pulmonary edema secondary to Narcan. Patient has been responsive to positive pressure and Lasix therapy. Patient did have an echocardiogram in February showing a relatively preserved ejection fraction of 53%. Patient had responded to Narcan and admitted to heroin. Echocardiogram does not show any endocarditis. Patient does have pulmonary hypertension, but this may be secondary to illicit drug use. Patient was advised on cessation, but appears precontemplative. Likely okay to transition to p.o. antibiotics and complete a 10-day course. 2. Illicit drug use/acute kidney injury Patient has tested positive for opiates, methamphetamines and cannabinoids. Patient reportedly has been in the ER multiple times and left AMA. Renal function has normalized. 3. Acute kidney injury Patient appears to have responded to Lasix therapy. Clinical suspicion for an element of ATN secondary to hypoxia. Continue to monitor renal function. No indication for renal replacement therapy at this time. 4. Thin build/elevated liver enzymes/tobacco abuse/poor cooperation Complicates care, management, recovery and prognosis. Elevated liver enzymes may be secondary to illicit drugs, acute hepatitis or hepatic congestion. No bleeding complications have been noted at this time. Inpatient E&M: 40985 Subs Hosp L2
--- NOTE | 2020-03-25 10:19 | CASEMGMT ---
RN CM Note: anticipate discharge today for patient. Wound orders included in packet for home health- same as in hospital per wound nurse. Will fax packet when dc order and instructions are available. Consuelo SAMPSONN RN ACM
--- NOTE | 2020-03-25 10:52 | DCINST_ITS ---
- Discharge Diagnoses Current Active Problems: Current Active and Chronic Problems Heroin overdose (Acute) Acute respiratory failure with hypoxia (Acute) Methamphetamine abuse (Chronic) Smoker (Chronic) Opiate abuse, continuous (Acute) IV drug abuse (Acute) IV drug user (Acute) You will use the following diet at home:: Regular Your food should be the consistency of: Regular Discharge Activity: Return to Normal Activity Weight Bearing Status: Full weight bearing Call your doctor if you observe: Fever of 101 or Higher, Shortness of breath, Dizziness, Fainting spells, Chest pain, Increased palpitations (irregular h eartbeat), Uncontrolled pain Additional Instructions: Please follow-up with the [facility] program. Allergies/Adverse Reactions: Allergies No Known Allergies Allergy (Verified 02/27/20 01:48) Medications to take at Discharge Amox/Clavulanate Tablet [Augmentin Tablet] 875 mg PO Q12H #14 tab 03/25/20 Fluoxetine HCl 20 mg PO DAILY #30 tab 03/25/20 The following prescriptions were given: Amox/Clavulanate Tablet [Augmentin Tablet] 875 mg PO Q12H #14 tab Prescription Printed Fluoxetine HCl 20 mg PO DAILY #30 tab Prescription Printed Primary Care Physician: Care Physician,No Primary [Primary Care Provider] - Please follow up with your Primary Care Physician in: 1 week. Test Results: Test results from this visit will be discussed in further detail at your follow- up appointment, if applicable.
--- NOTE | 2020-03-25 10:53 | PCM.DC.SUM ---
Discharge Date and Diagnosis - Problem List Patient Problems: Active and Suspected Problems (Last Reviewed 02/27/20 @ 01:[address] Edwin Lala MD) Heroin overdose (Acute) Acute respiratory failure with hypoxia (Acute) Date of Admission: 03/24/20 Date of Discharge: 03/25/20 - Primary Discharge Diagnosis Acute Problems: Active Problems #1 acute hypoxic respiratory failure due to acute flash pulmonary edema. #2 multidrug overdose. #3 acute kidney injury. #4 suspected depression. - Secondary Discharge Diagnosis Chronic Problems: Chronic Problems Methamphetamine abuse (Chronic) Smoker (Chronic) Hospital Course and Treatment Imaging Results: Clinical Impression(s) from Imaging Studies Chest X-Ray 03/23/20 23:45 IMPRESSION: Diffuse bilateral airspace disease compatible with pulmonary edema, pneumonia, or some combination thereof. As correlated with the clinical history, noncardiogenic pulmonary edema is likely. at 0102 Reported and signed by: Michael Browne MD Electronically Signed: Michael Browne, at 1:01 EST Tel , Service support , Liver Ultrasound 03/24/20 05:55 IMPRESSION: Normal right upper quadrant ultrasound examination. Electronically Signed: Siria Dockery at 13:14 EST Tel , Service support , Consultations 03/24/20 06:12 Consult: Onc/Wound/hydro generation supervisor Routine Comment: Dr. Dela Cruz, critical care. Operations: - - s/p I&D of right volar radial mid forearm with excisional debridement of IV drug abuse abscess on 02/27/20 Procedures: 2-D Echocardiogram, EKG Summary of Care Provided: Patient seen and examined on the day of discharge and appeared to be stable to be discharged home. He has no more shortness of breath. He is fully alert and oriented x3. He has been on room air, other vital signs are stable. The patient is a 24 year old M presented to the emergency room because of drug overdose. He was brought by EMS after they being called by patient's friends for other mental status. Patient was found to be very confused and lethargic and he was given 1 mg of IV Narcan and he returned back to his baseline. Patient admitted using IV heroin. His initial routine blood work revealed leukocytosis and creatinine of 1.39. LFT revealed slight elevated liver transaminases. His urine drug screen was positive for opioids, amphetamines, methamphetamines and cannabinoids. Blood alcohol level was less than 3. Chest x-ray revealed diffuse bilateral airspace disease compatible with flash pulmonary edema. COVID-19 antigen were negative. Patient was treated with IV Lasix for diuresis as well as BiPAP. 2D echocardiogram revealed normal LV size and function, ejection fraction was 60%, revealed moderate pulmonary hypertension. With IV Lasix, his kidney function is improved and back to normal. He was able to come off BiPAP and he remained stable on room air. He was found to have right forearm cellulitis with chronic wound. Patient was treated with IV Unasyn. His WBC is down back to normal and he remained afebrile. Patient for the concerned that he has been depressed but he denied any suicidal ideations or intentions. Patient discharged home in a stable medical condition, discharged on Augmentin twice daily for 7 days, discharged on fluoxetine 20 mg p.o. daily for depression, plan to follow-up with [facility] as outpatient, recommended to find a primary care physician and follow-up with him/her in 1 week. Patient Problems: Active and Suspected Problems (Last Reviewed 02/27/20 @ 01:[address] Edwin Lala MD) Heroin overdose (Acute) Acute respiratory failure with hypoxia (Acute) - Physical Exam Vitals/I&O's: Vital Signs Temp Pulse Resp BP Pulse Ox 98.3 F 72 21 H 117/71 100 03/25/20 08:00 03/25/20 09:00 03/25/20 09:00 03/25/20 09:00 03/25/20 10:18 Oxygen Flow Rate (L/min) 4 Oxygen Delivery Method Room Air Weight: 126 lb 6.4 oz Body Mass Index (BMI) 18.6 Intake and Output for Last 24 Hours 03/23/20 03/24/20 03/25/20 23:59 23:59 23:59 Intake Total 1048 / 1098 452 / 452 Output Total 1999 325 / 325 Balance -952 / -902 127 / 127 General: Alert, Oriented x3, Cooperative, No apparent distress HEENT: Atraumatic, PERRLA, EOMI, Normocephalic Oral: Moist Mucosa, No Gingival or Mucosal Lesions/ Ulcerations Neck: Supple, No JVD, Negative Carotid Bruits, Trachea Midline, Thyroid Normal Size and Texture Lungs: Clear to auscultation, Normal air movement, No rhonchi, No wheeze, No rales Cardiovascular: Regular rate, Regular Rhythm, Normal S1, Normal S2, No murmurs Abdomen: Bowel Sounds Present, Soft, Non Tender, Non-Distended, No Hepato-splenomegaly Extremities: No clubbing, No cyanosis, No edema Skin: No rashes, No breakdown Lymphatic: No Cervical, Supraclavicular, or Inguinal Adenopathy Neurological: Cranial nerves II-XII grossly intact, Neuro grossly intact Psych/Mental Status: Flat Affect Microbiology Past 72 Hours 03/24/20 06:30 Mucosa - Nasopharyngeal SARS-CoV-2 Antigen (Rapid) - Final Laboratory Results 03/25/20 04:00: WBC 9.4, RBC 4.26 L, Hgb 11.4 L, Hct 36.2 L, MCV 85.0, MCH 26.8 L, MCHC 31.5 L, RDW Std Deviation 45.9 H, RDW Coeff of Sohail 14.7 H, Plt Count 266, MPV 9.6, Immature Gran % (Auto) 0.300, Neut % (Auto) 56.0, Lymph % (Auto) 35.1, Dodge % (Auto) 6.2, Eos % (Auto) 2.2, Baso % (Auto) 0.2, Absolute Neuts (auto) 5.3, Absolute Lymphs (auto) 3.30, Nucleated RBC % 0 03/25/20 04:00: Sodium 138, Potassium 3.4 L, Chloride 102, Carbon Dioxide 33.0 H, Anion Gap 3 L, BUN 15, Creatinine 0.90, Estim Creat Clear Calc 102.63, Est GFR (MDRD) Af Amer 133, Est GFR (MDRD) Non-Af 110, BUN/Creatinine Ratio 16.8, Glucose 85, Calcium 9.1, Total Bilirubin 0.60, AST 52 H, ALT 74 H, Alkaline Phosphatase 87, Total Protein 7.4, Albumin 3.1 L, Globulin 4.3 H, Albumin/Globulin Ratio 0.7 L Current Medications Heparin Sodium (Porcine) (Heparin Injection (Vial) 5,000 Unit/Ml Vial) 5,000 unit SC Q12 [facility] Last Admin: 03/25/20 00:52 Dose: 5,000 unit Documented by: Sodium Chloride () 250 mls @ 15 mls/hr IV .[id number] PRN PRN Reason: Saline Flush Sodium Chloride () 250 mls @ 15 mls/hr IV .[id number] PRN PRN Reason: Additional IVPB Infusion Ampicillin Sodium/Sulbactam (Sodium 3 gm/ Sodium Chloride) 112 mls @ 150 mls/hr IV Q6 [facility] Last Admin: 03/25/20 05:44 Dose: 150 mls/hr Documented by: Nutritional Formula (Nutritional Supplement (Zachariah) Packet) 1 packet PO BIDCM [facility] Sodium Chloride (0.9% Saline Lock 10 Ml Syringe) 10 - 40 ml IV UD PRN PRN Reason: SALINE FLUSH Last Admin: 03/25/20 05:45 Dose: 10 ml Documented by: Discharge Activity: Return to Normal Activity Weight Bearing Status: Full weight bearing Call your doctor if you observe: Fever of 101 or Higher, Shortness of breath, Dizziness, Fainting spells, Chest pain, Increased palpitations (irregular heartbeat), Uncontrolled pain Home Medications: Medications to take at Discharge Amox/Clavulanate Tablet [Augmentin Tablet] 875 mg PO Q12H #14 tab 03/25/20 Fluoxetine HCl 20 mg PO DAILY #30 tab 03/25/20 Following Prescriptions Were Given to Patient: Amox/Clavulanate Tablet [Augmentin Tablet] 875 mg PO Q12H #14 tab Prescription Printed Fluoxetine HCl 20 mg PO DAILY #30 tab Prescription Printed Primary Care Physician: Care Physician,No Primary [Primary Care Provider] - Please follow up with your Primary Care Physician in: 1 week. Disposition: Home Minutes spent on discharge:: 28 Patient Condition:: Stable Medical Necessity - Tobacco Use Smoking Status: Current every day smoker Tobacco Use: Cigarettes Meaningful Use Info Meaningful Use Diagnoses (Choose all that apply): None applicable Inpatient E&M: 59081 [facility]
[2020-03-25 12:08] LABS: HEPATITIS B SURFACE AG Negative (Negative); Hepatitis A IgM Antibody Negative (Negative); Hepatitis B Core AB IgM Negative (Negative)
--- NOTE | 2020-03-25 13:00 | CASEMGMT ---
SW did meet w/pt this morning when pt was here, about 10:30am. Pt more alert, oriented, able to speak w/SW today. Pt confirmed has no PCP, confirmed does still have home care for his arm through [facility]. Pt uses [facility] in [place] normally for scripts, but for this hospitalization used the hospital pharmacy so able to have meds when he leaves. Pt plans to return to his mother's home in [place] at discharge. Pt fully independent with all ADLS. Pt agreeable to appointment at [facility], does not have transportation. SW explained he can get transport through his insurance. SW called [facility], set up an appt for 04/01 at 12pm, set up transport through [employer]. SW gave pt the information on the appointment and transportation. SW spoke w/pt about this overdose. Pt states it was not intentional, was not trying to harm or kill himself. Pt does state has depression however and was trying to make the pain stop. Pt states being in [place] is not good for him and makes him more depressed, he has bad memories here. Pt did not elaborate. Pt denies being suicidal, denies wishing was or would not wake up. Pt states wants to live, has a son who will be born in the next few months, and wants to be there for his son when he is born. Pt plans when he leaves here to stay with his mom in [place]. We completed a safety plan, and pt identified his mother, brother, and girlfriend Belle all as supports to him and people he can call if he is in distress. Pt given a copy of the safety plan, it has the suicide hotline and the local crisis number on it as well. Pt agreeable to SW calling his mother and speaking w/her about the safety plan and appt at [facility]. SW called pt's mother, told her about the safety plan and the appointment at [facility]. SW offered support to pt's mother. No further needs, pt home with mother today with appt at [facility] and safety plan in place. NADIA Nixon
[2020-03-25 13:20] LABS: Hep C Antibodies >11.0 s/co ratio (0.0-0.9)
--- NOTE | 2020-03-25 14:26 | CASEMGMT ---
CANDELARIO CM Note: discharge instructions and summary faxed to N for resumption of care. Consuelo MALLORY RN ACM
== END 2020-03-25 12:15 | disposition home or self-care (01) | DRG 816 ==
LOC: ED 03-24 00:06 → ICU 03-24 02:06
PROVIDERS: Admitting Provider Hospitalist; Emergency Provider Emergency Medicine; Visit Provider Hospitalist
DX: T40.1X1A Poisoning by heroin, accidental (unintentional), initial encounter (principal); J96.01 Acute respiratory failure with hypoxia; J81.1 Chronic pulmonary edema; Y92.9 Unspecified place or not applicable; N17.9 Acute kidney failure, unspecified; F32.9 Major depressive disorder, single episode, unspecified; L03.113 Cellulitis of right upper limb; F15.10 Other stimulant abuse, uncomplicated; F11.10 Opioid abuse, uncomplicated; F12.90 Cannabis use, unspecified, uncomplicated; I27.20 Pulmonary hypertension, unspecified; F17.210 Nicotine dependence, cigarettes, uncomplicated
CPT/HCPCS: 36600; 71045; 76705; 80053; 80074; 80307; 80320; 82803; 83880; 84484; 85025; 87040; 87426; 93005; 93308; 94002; 99285; A4216; G0480; J0295; J1940; J2405

== ENCOUNTER 2022-07-13 04:20 | Emergency (ER) | payer MEDICAID, SELFPAY ==
[2022-07-13 04:21] VITALS: BP 152/107; PULSE 125; RESP 20; TEMP 36.2; O2SAT 96; BMI 18.9
--- NOTE | 2022-07-13 04:37 | RAD_ITS ---
EXAM: XR RIGHT HAND COMPLETE, 3 OR MORE VIEWS CLINICAL INDICATION: ? FB ? FB TECHNIQUE: Frontal, lateral and oblique views of the right hand. This report was created using Sencha report generation technology. COMPARISON: None. FINDINGS: BONES/JOINTS: There is degenerative arthrosis of the distal interphalangeal joint of the fifth finger. No acute fracture. No subluxation. Normal alignment. No sclerotic or destructive changes observed. SOFT TISSUES: There is posterior soft tissue swelling. There is a 1.3 cm curvilinear metallic density overlying soft tissues lateral and posterior to the third metacarpal head. RAD/Hand Min 3 Views IMPRESSION: 1.3 cm curvilinear metallic foreign body in soft tissues posterior and lateral to the third metacarpal head. Electronically Signed: Dayron Pereira MD at 5:45 EDT Reading Location ID and State: [facility] / [place] , Service support ,
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
[2022-07-13] MEDS: Cephalexin 250 MG Capsule 500 MG PO (06:09)
[2022-07-13] MEDS: Lidocaine 2% /Epi 1:100 (20ml) 20 ML VIAL INFILT (06:11)
[2022-07-13 06:12] VITALS: BP 140/89; PULSE 97; RESP 18; O2SAT 99
== END 2022-07-13 06:12 | disposition home or self-care (01) ==
PROVIDERS: Emergency Provider Emergency Medicine; Visit Provider Emergency Medicine
DX: S60.551A Superficial foreign body of right hand, initial encounter (principal); F19.19 Other psychoactive substance abuse with unspecified psychoactive substance-induced disorder; F17.210 Nicotine dependence, cigarettes, uncomplicated; W26.8XXA Contact with other sharp object(s), not elsewhere classified, initial encounter; W45.8XXA Other foreign body or object entering through skin, initial encounter
CPT/HCPCS: 10120; 73130; 99283

== ENCOUNTER 2024-11-11 01:55 | Emergency (ER) | payer MEDICAID, SELFPAY ==
[2024-11-11 01:56] VITALS: BP 153/69; PULSE 70; RESP 24; TEMP 36.1; O2SAT 70; BMI 18.8
--- NOTE | 2024-11-11 02:05 | CT_ITS ---
PROCEDURE: CTA CHEST W/WO CONTRAST 11/11/2024 REASON FOR EXAM: HEMOPTYSIS, HYPOXIA TECHNIQUE: CTA CHEST W/WO CONTRAST Multiplanar Sagittal and Coronal images were obtained. CONTRAST: Isovue 370 VOLUME: 96 mL One or more dose reduction techniques were used (e.g., Automated exposure control, adjustment of the mA and/or kV according to patient size, use of iterative reconstruction technique). RADIATION DOSE SUMMARY: CTDlvol: 27 mGy DLP: 276 mGycm COMPARISON: Chest x-ray 10/11/2023 FINDINGS: Unremarkable base of neck and axilla. Thoracic spine scoliosis. Normal esophagus. Mildly enlarged heart status post tricuspid valve replacement. No aortic dissection. No pulmonary embolism. Calcified mediastinal and right hilar lymph nodes. 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 On the right, there is a lower lobe aneurysm, image 115, measuring 1.7 cm. Central airways are patent. Mild biapical bullous/blebs. On the left, multifocal areas of airspace disease, some of which represents atelectasis. Additional areas of airspace infection or hemorrhage, particularly the anterior half of the left upper lobe, series 2, image 180. On the right, multiple areas of rounded airspace disease including the right lower lobe, image 89, measuring up to 4.1 cm. There are areas of cavitation in several of these rounded airspace foci.. There is a tiny right effusion. No pneumothorax. No acute upper abdominal findings. Status post median sternotomy with incomplete sternal healing. Left-sided cardiac device. 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 Bilateral areas of airspace disease, some of which may represent airspace hemor rhage. There are cavitary changes in 2 right lung regions of rounded airspace disease. No pulmonary thromboembolism. No dissection. Reading Location: [place] [id number]
--- NOTE | 2024-11-11 02:05 | EKG12_ITS ---
Test Reason : DYSRHYTHMIA Blood Pressure : */* mmHG Vent. Rate : 70 BPM Atrial Rate : 70 BPM P-R Int : 408 ms QRS Dur : 164 ms QT Int : 440 ms P-R-T Axes : 49 -64 100 degrees QTcB Int : 475 ms Atrial-sensed ventricular-paced rhythm with prolonged AV conduction Abnormal ECG Confirmed by LEONARD COLBERT, AMOS ([id number]), managing editor KESHAWN TIWARI ([id number]) on 11/12/2024 8:28:08 AM Referred By: Confirmed By: AMOS VALLE MD
--- OUTSIDE RECORDS SUMMARY | 2024-11-11 02:09 | XMS RPT_ITS | CCD ---
Author Organization [place] [facility] Care Team Providers Care Hospital Recruiter Name Role Phone PHYSICIAN, NONE Primary Care Physician Unavailab vianney CHIRINOS MD, DR ZAFAR Primary Care Physician TERRY COLBERT, JONY Huitron Attending Unavail able CANDIS COLBERT, DR ZAFAR Primary Care Unavailable CANDIS COLBERT, DR ZAFAR Primary Care Unavailable KELSEY JACKSON DO Attending Unavailable ALEXANDRIA COLBERT, DR KATY Pritchard Attending Collins CHIRINOS MD, DR ZAFAR Primary Care Unavailable CANDIS COLBERT, DR ZAFAR Primary Care Unavailable RAVEN NOLAN DO Attending Unavailable RHONDA JAVIER DO Consulting Unavailjasmin PERRIN MD, CASEY Admitting Unavailable ALEXANDRIA COLBERT, DR KATY Pritchard Consulting Collins WESTFALL MD, DR TANYA ZHOU Consulting Boyd DOMINIQUE MD, CARLIE Consulting Unavailable BRIDGET COLBERT, DR KAUR Consulting SOLOMON Cevallos MD Consulting Unavailable Unavailable Primary Care Provider Unavailjasmin e Unavailable Primary Care Provider UnavailMELISSA Brice Referring Unavailable Raphael COLBERT, Richy Grant Unavailable Sherie Zepeda Attending Unavailable Care Physician, No Primary Primary Care Unava ilable PHYSICIAN, PATIENT UNSURE Primary Care Physician Unavailable Omero Contrerasing NurseToño Unavailable ANURAG Burleson DO Attending Unavailable CANDIS COLBERT, DR ZAFAR Primary Care Unavailable ANURAG TRUJILLO DO Attending Unavailable PHYSICIAN, PATIENT UNSURE Primary Care OJSEP Jain MD Admitting Unavailable PHYSICIAN, PATIENT UNSURE Primary Care KIKA Chisholm MD Consulting Unavailable KIKA MESSINA MD Attending Unavailable KWAME LAMBERT DO Consulting Unavailable BRIDGET COLBERT, DR KAUR Consulting Collins CRABTREE MD, NICKS, JERRELL Consulting Unavailjasmin DALE MD, YORDAN Jay Consulting Unavailab Ana Maria COLBERT, SCAR Sneed Consulting Unavailable MAHSA CHONG DO Consulting Unavailable ALEXX HUYNH, DR PARSON Consulting Collins OLGUIN MD, CHINO Padilla Consulting Unavailable PHYSICIAN, PATIENT UNSURE Primary Care KIKA Chisholm MD Attending Unavailable Allergies Allergy Classification Reported Allergen(s) Allergy Type Date of Onset Reaction(s) Facility (1 source) ALLERGIES NOT ON FILE; Translations: [ALLERGIES NOT ON FILE] Propensity to adverse reactions (disorder) [facility] Repository Medications Current Medications Medication Drug Class(es) Dates Sig (Normalized) Sig (Original) acetaminophen 325 mg oral capsule (20 sources) Start: 11-01-2024 take 1 capsule by mouth every six hours Tylenol 325 mg oral capsule Dose : 650 mg =, Oral, q6h, 0 Refill(s) Start Date: 11/01/24 Status: Ordered Repeat number: 1 Start: 06-13-2023 take 2 tablets by mo uth every six hours as needed acetaminophen (TYLENOL) 325 mg tablet Take 2 tablets by mouth every 6 hours as needed (mild to moderate pain). 06/13/2023 Active Start: 06-09-2023 take 2 tablets by mo uth every six hours acetaminophen (TYLENOL) 325 mg tablet Take 2 tablets by mouth every 6 hours. 0 06/09/2023 Active Start: 05-10-2022 Tylenol 325 mg oral capsule Dose : 650 mg =, Oral, q4h, PRN Pain, scale 1-3, 0 Refill(s) Start Date: 05/10/22 Status: Ordered Comment on above: Take 2 tablets by mo uth every 6 hours. Take 2 tablets by mo uth every 6 hours as needed (mild to moderate pain). amoxicillin 875 mg / clavulanate 125 mg oral tablet (1 source) Penicillin-class Antibacterial Start: 0 take 875 mg by mouth every twelve hours Amoxicillin-Pot Clavulanate Active 875 MG PO Q12H March 25, 2020 1:00am aspirin 81 mg chewable tablet (19 sources) Platelet Aggregation Inhibitor, Nonsteroidal Anti-inflammatory Drug Start: 07-17-202 5 aspirin 81 mg oral tablet, chewable Dose : 81 mg = 1 tab(s), Oral, qDayM, 0 Refill(s) Start Date: 11/01/24 Status: Ordered Repeat number: 1 Start: 06-10-2023 take 1 tablet by isa th once daily aspirin 81 mg chewable tablet Take 1 tablet by mouth once daily. 06/10/2023 Active Comment on above: Take 1 tablet by isa th once daily. benzonatate 100 mg oral capsule (2 sources) Non-narcotic Antitussive Start: 11-01-2024 End: 11-15-2024 Tessalon Perles 100 mg oral capsule Dose : 200 mg = 2 cap(s), Oral, TID, X 14 day(s), # 84 cap(s), 0 Refill(s), 11/15/24 11:50:00 AM EDT, Pharmacy: [facility], 180, cm, 09/22/24 12:54:00 EDT, Height, kg, 09/22/24 12:54:00 EDT, Dosing Weight Start Date: 11/01/24 Stop Date: 11/15/24 Status: Ordered Quantity: 84.0 Unit: cap(s) Repeat number: 1 cephalexin 500 mg oral capsule (3 sources) Cephalosporin Antibacterial Start: 11-01-2024 End: 01-30-2025 cephalexin 500 mg oral capsule Dose : 500 mg = 1 cap(s), Oral, TID, X 90 day(s), # 270 cap(s), 0 Refill(s), 01/30/25 11:56:00 AM EDT, Pharmacy: [facility], 180, cm, 09/22/24 12:54:00 EDT, Height, 55.2, kg, 09/22/24 12:54:00 EDT, Dosing Weight Start Date: 11/01/24 Stop Date: 01/30/25 Status: Ordered Quantity: 270.0 Unit: cap(s) Repeat number: 1 Start: 07-13-2022 take 500 mg by mouth three times daily Cephalexin Active 500 MG PO THREE TIMES A DAY 05 11July 13, 2022 12:00am cyclobenzaprine hydrochloride 10 mg oral tablet (1 source) Muscle Relaxant Start: 04-06-2022 End: 04-13-2022 cyclobenzaprine 10 mg oral tablet Dose : 10 mg = 1 tab(s), Oral, TID, PRN As needed for muscle pain and spasm, X 7 day(s), # 21 tab(s), 0 Refill(s), 04/13/22 9:26:00 EST Start Date: 04/06/22 Stop Date: 04/13/22 Status: Ordered docusate sodium 50 mg / sennosides, group home 8.6 mg oral tablet (17 sources) Start: 06-09-2023 take 1 tablet by mouth every twelve hours as needed senna-docusate (SENNA-S) 8.6-50 mg per tablet Take 1 tablet by mouth two times a day as needed. 06/09/2023 Active Comment on above: Take 1 tablet by [facility] two times a day as needed. ergocalciferol 1.25 mg oral capsule (17 sources) Provitamin D2 Compound Start: 06-14-2023 take 1 capsule by mouth every week ergocalciferol 50,000 unit capsule (VITAMIN D2, DRISDOL) Take 1 capsule by mouth one time a week. 06/14/2023 Active Start: 06-14-2023 [facility] 1 [facility] ergocalciferol 50,000 unit capsule (VITAMIN D2, DRISDOL) Take 1 capsule by mouth one time a week. 0 06/14/2023 Active Comment on above: Take 1 capsule by [facility] one time a week. erythromycin 0.005 mg/mg ophthalmic ointment (1 source) Macrolide, Macrolide Antimicrobial Start: 01-15-20 End: 01-20-20 erythromycin 0.5% ophthalmic ointment Dose = 1 kendrick, Eye, left, QID, 1 kendrick = 0.5 inch, X 5 day(s), # 3.5 gram(s), 0 Refill(s) Start Date: 01/14/23 Stop Date: 01/19/23 Status: Ordered FLUoxetine 20 mg oral tablet (1 source) Serotonin Reuptake Inhibitor Start: 03-25-20 take 20 mg by mouth once daily Fluoxetine Active 20 MG PO DAILY March 25, 2020 1:00am furosemide 40 mg oral tablet (2 sources) Loop Diuretic Start: 11-02-19 End: 11-09-19 Lasix 40 mg oral tablet Dose : 40 mg = 1 tab(s), Oral, qDay, # 7 tab(s), 0 Refill(s), Pharmacy: [facility], 180, cm, 09/22/24 12:54:00 EDT, Height, kg, 09/22/24 12:54:00 EDT, Dosing Weight Start Date: 11/01/24 Stop Date: 11/08/24 Status: Ordered Quantity: 7.0 Unit: tab(s) Repeat number: 1 glecaprevir 100 mg / pibrentasvir 40 mg oral tablet (16 sources) Start: 05-12-19 End: 08-08-19 take 3 tablets by mouth once daily at mealtime glecaprevir-pibrenta svir (MAVYRET) 100-40 mg tablet Take 3 tablets by mouth once daily. Take with food. 84 tablet 1 06/10/2023 08/08/2023 Active Comment on above: [facility] 3 tablets [facility]. Take with food. Take 3 tablets by mo [facility] once daily. You will be meeting with 06/21/23. They will provide direction to you as to when to start this medication. Lopressor 25mg--USE metoprolol tartrate 25 mg oral tablet (1 source) Start: 05-04-19 Lopressor 25mg--USE metoprolol tartrate 25 mg oral tablet Dose : 25 mg = 1 tab(s), Oral, qHS Start Date: 05/04/22 Status: Ordered melatonin 3 mg oral tablet (17 sources) Start: 06-09-19 take 1 tablet by mouth once daily at bedtime melatonin 3 mg tablet Take 1 tablet by mouth daily at bedtime. 06/09/2023 Active Comment on above: Take 1 tablet by [facility] daily at bedtime. 24 hr metoprolol succinate 25 mg extended release oral tablet (20 sources) beta-Adrenergic Leidy Start: 06-10-19 take 1 tablet by mouth once daily metoprolol succinate ER (TOPROL XL) 25 mg 24 hr tablet Take 1 tablet by mouth once daily. 06/10/2023 Active Start: 05-07-2023 End: 05-07-2023 metoprolol tartrate (Lopress or) Start: 05/07/23 5:00:00 PM EST, Dose = 25 mg, = 1 tab(s), Oral, 0, 05/06/23 7:12:00 EST Start Date: 05/07/23 Stop Date: 05/07/23 Status: Completed Start: 05-07-2023 End: 05-07-2023 metoprolol tartrate (Lopress or) Start: 05/07/23 8:00:00 AM EST, Dose = 25 mg, = 1 tab(s), Oral, 0, 05/06/23 7:12:00 EST Start Date: 05/07/23 Stop Date: 05/07/23 Status: Completed Start: 05-06-2023 End: 05-06-2023 metoprolol tartrate (Lopress or) Start: 05/06/23 5:00:00 PM EST, Dose = 25 mg, = 1 tab(s), Oral, 0, 05/06/23 7:12:00 EST Start Date: 05/06/23 Stop Date: 05/06/23 Status: Completed Start: 05-09-2022 End: 05-09-2022 Metoprolol Tartrate 25 mg or al tablet Start: 05/09/22 22:00:00 EST, Dose = 25 mg, = 1 tab(s), Oral, 0, 05/04/22 23:56:00 EST Start Date: 05/09/22 Stop Date: 05/09/22 Status: Completed Start: 05-08-2022 End: 05-08-2022 Metoprolol Tartrate 25 mg or al tablet Start: 05/08/22 22:00:00 EST, Dose = 25 mg, = 1 tab(s), Oral, 0, 05/04/22 23:56:00 EST Start Date: 05/08/22 Stop Date: 05/08/22 Status: Completed Start: 05-07-2022 End: 05-07-2022 Metoprolol Tartrate 25 mg or al tablet Start: 05/07/22 22:00:00 EST, Dose = 25 mg, = 1 tab(s), Oral, 0, 05/04/22 23:56:00 EST Start Date: 05/07/22 Stop Date: 05/07/22 Status: Completed Comment on above: Take 1 tablet by isa th once daily. midodrine hydrochloride 5 mg oral tablet (2 sources) alpha-Adrenergic Agonist Start: 5 End: 5 midodrine 5 mg oral tablet Dose : 5 mg = 1 tab(s), Oral, TID, # 42 tab(s), 0 Refill(s), Pharmacy: [facility], 180, cm, 09/22/24 12:54:00 EDT, Height, kg, 09/22/24 12:54:00 EDT, Dosing Weight Start Date: 11/01/24 Stop Date: 11/15/24 Status: Ordered Quantity: 42.0 Unit: tab(s) Repeat number: 1 MULTIVITAMIN-FERROUS FUMARATE-FOLIC ACID 18 MG-400 MCG TABLET (17 sources) Start: 4 take 1 tablet by mouth once daily at breakfast MULTIVITAMIN-CEDRIC US FUMARATE-FOLIC ACID 18 MG-400 MCG TABLET Take 1 tablet by mouth daily with breakfast. 06/10/2023 Active Start: 06-10-2023 take 1 tablet by isa th once daily at breakfast MULTIVITAMIN-FERROUS FUMARATE-FOLIC ACID 18 MG-400 MCG TABLET Take 1 tablet by mouth daily with breakfast. 0 06/10/2023 Active Comment on above: Take 1 tablet by isa th daily with breakfast. nafcillin 100 mg/ml injectable solution (2 sources) Penicillin-class Antibacterial Start: 05-10-2022 End: 05-30-2022 nafcillin 10 g injection See Instructions, 12gm and 500 mL normal saline continuous infusion, treatment continues until 05/30/2022, # 1 EA, 0 Refill(s), 05/30/22 8:34:00 EST, 55 Start Date: 05/10/22 Stop Date: 05/30/22 Status: Ordered Start: 04-21-2022 End: 06-02-2022 nafcillin 2 g injection Dose : 2 gram(s) =, IV Piggyback, q4hr, 0 Refill(s), 53.8 Start Date: 04/21/22 Stop Date: 06/02/22 Status: Ordered naproxen 250 mg oral tablet (2 sources) Nonsteroidal Anti-inflammatory Drug Start: 06-09-2023 End: 06-23-2023 take 1 tablet by mouth twice daily at mealtime naproxen (NAPROSYN) 250 mg tablet Take 1 tablet by mouth two times a day with meals for 14 days. 28 tablet 0 06/09/2023 06/23/2023 Active Start: 04-06-2022 End: 04-13-2022 naproxen 500 mg oral tablet Dose : 500 mg = 1 tab(s), Oral, BID, PRN As needed for pain, X 7 day(s), # 14 tab(s), 0 Refill(s), 04/13/22 9:25:00 EST Start Date: 04/06/22 Stop Date: 04/13/22 Status: Ordered Comment on above: Take 1 tablet by isa th two times a day with meals for 14 days. 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, redo TVR using #27 CE MagnaEase, insertion of permanent epicardial wires 10/02/2024 Acute pain, 180, cm, 09/22/24 12:54:00 EDT, Height, 55.2, kg, 09/22/24 12:54:00 EDT, Dosing Weight Start Date: 11/01/24 Stop Date: 11/08/24 Status: Ordered Quantity: 105.0 Unit: mL Repeat number: 1 Indications: Pain, unspecified; Rheumatic tricuspid valve disease, unspecified; Start: 06-09-2023 End: 06-16-2023 take 1 tablet by mouth every six hours as needed for pain oxyCODONE IR (ROXICODONE) 5 mg immediate release tablet Indications: Infective endocarditis of tricuspid valve Take 1 tablet by mouth every 6 hours as needed for pain for up to 7 days. 28 tablet 0 06/09/2023 06/16/2023 Active Comment on above: Take 1 tablet by isa th every 6 hours as needed for pain for up to 7 days. pantoprazole 20 mg delayed release oral tablet ( sources) Proton Pump Inhibitor Start: 06-10-19 take 1 tablet by mouth once daily in the morning pantoprazole DR (PROTONIX) 20 mg tablet Take 1 tablet by mouth daily at 6 am. 06/10/2023 Active Comment on above: Take 1 tablet by isa th daily at 6 am. perflutren lipid microspheres 1.3 mL in NaCl (PF) 0.9% 10 mL injection (DEFINITY) (3 sources) Start: 06-09-19 End: 06-16-19 perflutren lipid microspheres 1.3 mL in NaCl (PF) 0.9% 10 mL injection (DEFINITY) potassium chloride 20 meq oral tablet (2 sources) Start: 11-02-19 End: 11-09-19 potassium chloride 20 mEq oral tablet, extended release Dose : 20 mEq = 1 tab(s), Oral, qDay, # 7 tab(s), 0 Refill(s), Pharmacy: [facility], 180, cm, 09/22/24 12:54:00 EDT, Height, kg, 09/22/24 12:54:00 EDT, Dosing Weight Start Date: 11/01/24 Stop Date: 11/08/24 Status: Ordered Quantity: 7.0 Unit: tab(s) Repeat number: 1 125 ml sodium chloride 9 mg/ml prefilled syringe (3 sources) Start: 06-09-19 End: 06-16-19 sodium chloride 0.9 % (flush) 10 mL (BD POSIFLUSH) spironolactone 25 mg oral tablet (17 sources) Aldosterone Antagonist Start: 06-10-19 take 0.5 tablet by mouth once daily spironolactone (ALDACTONE) 25 mg tablet Take 0.5 tablets by mouth once daily. 06/10/2023 Active Comment on above: Take 0.5 tablets by mouth once daily. torsemide 20 mg oral tablet (17 sources) Loop Diuretic Start: 06-14-19 take 1 tablet by mouth once daily torsemide (DEMADEX) 20 mg tablet Take 1 tablet by mouth once daily. Patient should start on June 14, 2023. 06/14/2023 Active Start: 06-10-2023 take 2 tablets by mo [facility] once daily torsemide (DEMADEX) 20 mg tablet Take 2 tablets by mouth once daily. Hold for systolic blood pressure of 95 and below 0 06/10/2023 Active Comment on above: [facility] 2 tablets [facility]. Hold for systolic blood pressure of 95 and below Take 1 tablet by [facility] once daily. Patient should start on June 14, 2023. 200 ml vancomycin 5 mg/ml injection (10 sources) Glycopeptide Antibacterial Start: End: take 1 g intravenously every twelve hours vancomycin (VANCOCIN) 1 gram/200 mL in D5W Inject 200 mL intravenously every 12 hours for 18 days. 7200 mL 0 06/09/2023 06/27/2023 Active Comment on above: Inject 200 mL intrav enously every 12 hours for 18 days. Completed/Discontinued Medications Medication Drug Class(es) Dates Sig (Normalized) Sig (Original) ferrous sulfate 140 mg extended release oral tablet (4 sources) Start: 06-10-2023 take 1 tablet by mouth once daily ferrous sulfate (SLOW FE) 140 mg (45 mg iron) TbER Take 1 tablet by mouth once daily. 0 06/10/2023 Active Comment on above: Take 1 tablet by [facility] once daily. naloxone hydrochloride 40 mg/ml nasal spray (4 sources) Opioid Antagonist Start: 05-22-2024 Narcan 4 mg/0.1 mL nasal spray Dose : 4 mg = 1 spray(s), Intranasal, AsDirected, PRN see pharmacy notes, may repeat every 2 to 3 minutes until patient responds, # 2 EA, 0 Refill(s), Accidental drug overdose Start Date: 05/22/24 Status: Ordered Quantity: 2.0 Unit: EA Repeat number: 1 Indications: Poisoning by unspecified drugs, medicaments and biological substances, accidental (unintentional), initial encounter; 2 ml ondansetron 2 mg/ml injection (1 source) Serotonin-3 Receptor Antagonist Start: 06-09-2023 take 4 mg intravenously every six hours as needed ondansetron, PF, (ZOFRAN) 4 mg/2 mL soln Inject 4 mg intravenously every 6 hours as needed for nausea/vomiting. 0 06/09/2023 Active Comment on above: Inject 4 mg intraven ously every 6 hours as needed for nausea/vomiting. Problems Active Problems Problem Classification Problem Date Documented Date Episodic/Chronic Acute and unspecified renal failure (2 sources) Acute renal failure syndrome; Translations: [Acute kidney failure, unspecified] Onset: 09-22-2024 Episodic Acute posthemorrhagic anemia (6 sources) Acute posthemorrhagic anemia; Translations: [Acute posthemorrhagic anemia] Onset: 09-22-2024 Episodic Adjustment disorders (19 sources) Adjustment disorder with mixed anxiety and depressed mood; Translations: [Adjustment disorder with mixed anxiety and depressed mood] Onset: 05-09-2023 05-30-2023 Chronic Bacterial infection; unspecified site (20 sources) Bacteremia; Translations: [Bacteremia] Onset: 04-17-2022 Episodic Cardiac arrest and ventricular fibrillation (5 sources) Cardiac arrest; Translations: [Cardiac arrest, cause unspecified] Onset: 09-22-2024 Chronic Cardiac dysrhythmias (3 sources) Unspecified atrial fibrillation; Translations: [Unspecified atrial flutter] Onset: 09-22-2024 Chronic Cardiac dysrhythmias (7 sources) Tachyarrhythmia ; Translations: [Tachycardia, unspecified] Onset: 09-22-2024 Episodic Chronic obstructive pulmonary disease and bronchiectasis (1 source) Pulmonary emphysema; Translations: [Other emphysema] Chronic Coagulation and hemorrhagic disorders (6 sources) Thrombocytopenic disorder; Translations: [Thrombocytopenia, unspecified] Onset: 09-22-2024 Chronic Complication of device; implant or graft (2 sources) Infection and inflammatory reaction due to cardiac valve prosthesis, initial encounter; Translations: [Stenosis of other cardiac prosthetic devices, implants and grafts, initial encounter] Onset: 09-22-2024 Episodic Conduction disorders (2 sources) Atrioventricular block, complete; Translations: [Other right bundle-branch block] Onset: 09-22-2024 Chronic Congestive heart failure; nonhypertensive (17 sources) Acute right-sided heart failure; Translations: [Acute right heart failure] Onset: 06-06-2023 06-06-2023 Chronic Crushing injury or internal injury (1 source) Injury of liver; Translations: [Unspecified injury of liver, initial encounter] Episodic Deficiency and other anemia (17 sources) Anemia of chronic disease; Translations: [Anemia in other chronic diseases classified elsewhere] Onset: 06-06-2023 06-06-2023 Chronic Deficiency and other anemia (1 source) Iron deficiency anemia; Translations: [Iron deficiency anemia, unspecified] Episodic Deficiency and other anemia (6 sources) Anemia; Translations: [Anemia, unspecified] Onset: 09-22-2024 Episodic Deficiency and other anemia (2 sources) Anemia, unspecified; Translations: [Anemia, unspecified] Onset: 09-22-2024 Episodic Diabetes mellitus without complication (7 sources) Hyperglycemia; Translations: [Hyperglycemia, unspecified] Onset: 05-30-2023 Resolved: 06-02-2023 Episodic Diseases of white blood cells (1 source) Leukocytosis; Translations: [Elevated white blood cell count, unspecified] Chronic Disorders of teeth and jaw (2 sources) Loss of teeth due to extraction 10-04-2024 Chronic Disorders of teeth and jaw (20 sources) Dental caries; Translations: [Dental caries, unspecified] Onset: 05-17-2023 05-17-2023 Episodic Fever of unknown origin (1 source) Fever; Translations: [Fever, unspecified] Episodic Fluid and electrolyte disorders (5 sources) Hypo-osmolality and or hyponatremia; Translations: [Hypo-osmolality and hyponatremia] Onset: 09-22-2024 Episodic Heart valve disorders (14 sources) Rheumatic disease of tricuspid valve; Translations: [Rheumatic tricuspid valve disease, unspecified] Onset: 04-17-2022 Chronic Hepatitis (20 sources) Chronic viral hepatitis C; Translations: [Chronic hepatitis C] Onset: 05-08-2023 Chronic Hepatitis (4 sources) Viral hepatitis C; Translations: [Unspecified viral hepatitis C without hepatic coma] Onset: 04-17-2022 Episodic Inflammation; infection of eye (except that caused by tuberculosis or sexually transmitteddisease) (1 source) External hordeolum; Translations: [Hordeolum externum unspecified eye, unspecified eyelid] Onset: 01-14-2023 Episodic Lymphadenitis (3 sources) Lymphadenopathy; Translations: [Enlarged lymph nodes, unspecified] Onset: 09-22-2024 Episodic Nonspecific chest pain (1 source) Chest pain; Translations: [Chest pain, unspecified] Onset: 05-05-2022 Episodic Nutritional deficiencies (20 sources) Malnutrition (calorie); Translations: [Moderate protein-calorie malnutrition] Onset: 05-27-2023 05-30-2023 Chronic Open wounds of extremities (1 source) Open wound of forearm with complication; Translations: [Unspecified open wound of right forearm, initial encounter] 03-25-2020 Episodic Other aftercare (1 source) Surgical follow-up; Translations: [Encounter for follow-up examination after completed treatment for conditions other than malignant neoplasm] 06-21-2023 Episodic Other circulatory disease (1 source) Low blood pressure; Translations: [Hypotension, unspecified] Episodic Other [employer] infection and poliomyelitis (1 source) Spinal cord abscess; 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] Episodic Other connective tissue disease (1 source) Pain in right foot; Translations: [Pain in right foot] Onset: 09-22-2024 Episodic Other connective tissue disease (1 source) Pain in left foot; Translations: [Pain in left foot] Onset: 09-22-2024 Episodic Other infections; including parasitic (1 source) H/O: infectious disease; Translations: [Personal history of other infectious and parasitic diseases] Episodic Other liver diseases (1 source) Inflammatory disease of liver; Translations: [Inflammatory liver disease, unspecified] Chronic Other liver diseases (2 sources) Increased aspartate transaminase level; Translations: [Elevation of levels of liver transaminase levels] Onset: 05-01-2023 Episodic Other liver diseases (1 source) Hepatosplenomegaly; Translations: [Hepatomegaly with splenomegaly, not elsewhere classified] Episodic Other liver diseases (1 source) Acute and subacute hepatic failure without coma; Translations: [Acute and subacute hepatic failure without coma] Onset: 09-22-2024 Episodic Other liver diseases (1 source) Hepatomegaly with splenomegaly, not elsewhere classified; Translations: [Hepatomegaly with splenomegaly, not elsewhere classified] Onset: 09-22-2024 Episodic Other lower respiratory disease (1 source) Abnormal findings on diagnostic imaging of lung; Translations: [Other nonspecific abnormal finding of lung field] Episodic Other lower respiratory disease (1 source) Tachypnea; Translations: [Tachypnea, not elsewhere classified] Episodic Other lower respiratory disease (2 sources) Respiratory tract hemorrhage; Translations: [Hemorrhage from other sites in respiratory passages] Onset: 10-10-2024 Episodic Other lower respiratory disease (1 source) Hemoptysis; Translations: [Hemoptysis] Episodic Other lower respiratory disease (2 sources) Hemorrhage from other sites in respiratory passages; Translations: [Hemorrhage from other sites in respiratory passages] Onset: 09-22-2024 Episodic Other lower respiratory disease (1 source) Hemoptysis; Translations: [Hemoptysis] Onset: 09-22-2024 Episodic Other nervous system disorders (1 source) Metabolic encephalopathy; Translations: [Metabolic encephalopathy] Chronic Other nervous system disorders (1 source) Metabolic encephalopathy; Translations: [Metabolic encephalopathy] Onset: 09-22-2024 Chronic Other nervous system disorders (1 source) Slurred speech; Translations: [Slurred speech] Onset: 09-22-2024 Episodic Barb-; endo-; and myocarditis; cardiomyopathy (except that caused by tuberculosis or sexually transmitted disease) (9 sources) Valvular endocarditis 04-17-2022 Chronic Barb-; endo-; and myocarditis; cardiomyopathy (except that caused by tuberculosis or sexually transmitted disease) (20 sources) Infective endocarditis; Translations: [Acute and subacute infective endocarditis] Onset: 05-08-2023 Episodic Pleurisy; pneumothorax; pulmonary collapse (20 sources) Pleural effusion; Translations: [Pleural effusion, not elsewhere classified] Onset: 05-05-2022 Episodic Poisoning by other medications and drugs (4 sources) Poisoning by unspecified narcotics, accidental (unintentional), initial encounter; Translations: [Overdose of opiate] Onset: 11-13-2021 Episodic Pulmonary heart disease (20 sources) Other pulmonary embolism without acute cor pulmonale; Translations: [Septic pulmonary embolism] Onset: 04-29-2023 Episodic Residual codes; unclassified (3 sources) Tobacco user; Translations: [Tobacco use] Onset: 04-17-2022 Episodic Residual codes; unclassified (1 source) Pain; Translations: [Pain, unspecified] Onset: 11-01-2024 Episodic Residual codes; unclassified (1 source) Tobacco use; Translations: [Tobacco use] Onset: 09-22-2024 Episodic Residual codes; unclassified (1 source) Pain, unspecified; Translations: [Pain, unspecified] Onset: 09-22-2024 Episodic Respiratory failure; insufficiency; arrest (adult) (3 sources) Acute respiratory failure; Translations: [Acute respiratory failure with hypoxia] Onset: 09-22-2024 03-24-2020 Episodic Septicemia (except in labor) (8 sources) Sepsis; Translations: [Sepsis, unspecified organism] Onset: 05-01-2023 Episodic Shock (2 sources) Septic shock; Translations: [Severe sepsis with septic shock] Onset: 09-22-2024 Episodic Skin and subcutaneous tissue infections (1 source) Abscess of right forearm; Translations: [Cutaneous abscess of right upper limb] 03-25-2020 Episodic Substance-related disorders (20 sources) Psychoactive substance abuse; Translations: [Other psychoactive substance abuse, uncomplicated] Onset: 04-17-2022 Chronic Superficial injury; contusion (1 source) Foreign body in hand; Translations: [Superficial foreign body of right hand, initial encounter] 07-13-2022 Episodic Unclassified (1 source) Acidosis, unspecified; Translations: [Acidosis, unspecified] Onset: 09-22-2024 Unclassified (1 source) Other pericardial effusion (noninflammatory); Translations: [Other pericardial effusion (noninflammatory)] Onset: 09-22-2024 Past or Other Problems Problem Classification Problem Date Documented Da te Episodic/Chronic Administrative/social admission (18 sources) Patient encounter status; Translations: [Persons encountering health services in other specified circumstances] Onset: 06-01-2023 06-02-2023 Episodic Nutritional deficiencies (17 sources) Iron deficiency; Translations: [Iron deficiency] Onset: 06-07-2023 06-07-2023 Episodic Other aftercare (19 sources) Long-term current use of 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; 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] Onset: 06-01-2023 06-01-2023 Episodic Other nervous system disorders (19 sources) Postoperative pain ; Translations: [Other acute postprocedural pain] Onset: 05-30-2023 05-30-2023 Episodic Phlebitis; thrombophlebitis and thromboembolism (20 sources) Venous thrombosis; Translations: [Acute embolism and thrombosis of other specified veins] Onset: 06-03-2023 06-03-2023 Episodic Residual codes; unclassified (17 sources) History of intravenous drug abuse; Translations: [Personal history of other specified conditions] Onset: 05-16-2023 05-27-2023 Episodic Residual codes; unclassified (17 sources) Problem with continuity of care; Translations: [Problem with continuity of care] Onset: 06-06-2023 06-10-2023 Episodic Residual codes; unclassified (4 sources) History of tricuspid valve repair; Translations: [Other specified postprocedural states] Onset: 08-09-2023 08-09-2023 Episodic Respiratory failure; insufficiency; arrest (adult) (5 sources) Ventilator finding; Translations: [Dependence on respirator [ventilator] status] Onset: 05-30-2023 Resolved: 06-01-2023 05-30-2023 Chronic Spondylosis; intervertebral disc disorders; other back problems (20 sources) Backache; Translations: [Dorsalgia, unspecified] Onset: 05-01-2023 Episodic Substance-related disorders (20 sources) Heroin overdose; Translations: [Poisoning by heroin, accidental (unintentional), initial encounter] Onset: 05-09-2023 03-24-2020 Episodic Unclassified (1 source) Recreational drug user; 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 Proteinuria)CKD 2 Kidney damage with mild loss 60-89 of kidney functionCKD 3a Mild to moderate loss of kidney 45-59 functionCKD 3b Moderate to severe loss of 30-44 of kindey function CKD 4 Severe loss of kidney function 15-29CKD 5 Kidney failure <15Note: (go live 2024) the eGFR calculation was updated to the KD-EPI creatinine equation without a race factor to calculate theeGFR results. Performed By: #### B MP, GFR ####[address] [address] BMPon 11-07-2024 BUN/Creatinine Ratio 20.5 ratio Normal 10.0-22.[address] [facility] Comment on above: Performed By: #### B MP, GFR ####[address] [address] Calcium [Mass/Vol] 10.1 mg/dL Normal 8.7-10.4 [facility] Comment on above: Performed By: #### B MP, GFR ####[address] [address] Chloride [Moles/Vol] 102 mmol/L Normal 98-[address] [facility] Comment on above: Performed By: #### B MP, GFR ####[address] [address] CO2 [Moles/Vol] 27 mmol/L Normal 22-32 [facility] Comment on above: Performed By: #### B MP, GFR ####[address] [address] Creatinine [Mass/Vol] 0.83 mg/dL Normal 0.60-1.[address] [facility] Comment on above: Result Comment: Test ing performed on [employer] analyzer using enzymatic creatinine methodology. Performed By: #### B MP, GFR ####[address] [address] Electrolyte Balance 11.0 mEq/L Normal 4.0-15.0 [facility] Comment on above: Performed By: #### B MP, GFR ####[address] [address] Glucose [Mass/Vol] 94 mg/dL Normal 70-110 [facility] Comment on above: Performed By: #### B MP, GFR ####[address] [address] Potassium [Moles/Vol] 4.2 mmol/L Normal 3.5-5.[address] [facility] Comment on above: Performed By: #### B MP, GFR ####[address] [address] Sodium [Moles/Vol] 140 mmol/L Normal 136-145 [facility] Comment on above: Performed By: #### B MP, GFR ####[address] [address] Urea nitrogen [Mass/Vol] 17.0 mg/dL Normal 8.0-22.0 [facility] Comment on above: Performed By: #### B MP, GFR ####[facility] [place] [address] LABORATORYOrdered By: SYSTEM SYSTEM on 11-07-2024 Calcium [Mass/Vol] 10.1 mg/dL Normal 8.7 - 10. 4 mg/dL AH ADM SS Chloride [Moles/Vol] 102 mmol/L Normal 98 - 11 0 mEq/L AH ADM SS CO2 [Moles/Vol] 27 mmol/L Normal 22 - 32 mEq/L AH ADM SS Creatinine [Mass/Vol] 0.83 mg/dL Normal 0.60 - 1.40 mg/dL AH ADM SS Comment on above: Interpretive Data: T esting performed on [employer] analyzer using enzymatic creatinine methodology. Electrolyte Balance 11.0 mEq/L Normal 4.0 - 15 .0 mEq/L AH ADM SS Estimated Glomerular Filtration Rate ml/min/1.73sqm Invalid Interpretation Code Chemistry S Comment on above: Interpretive Data: Stages of Chronic Kidney Disease (CKD) Stage Description eGFR(ml/min/1.73 sq.m.) CKD 1 Normal kidney function or >=90 normal kindney function with possible kidney damage (ex. Proteinuria) CKD 2 Kidney damage with mild loss 60-89 of kidney function CKD 3a Mild to moderate loss of kidney 45-59 function CKD 3b Moderate to severe loss of 30-44 of kindey function CKD 4 Severe loss of kidney function 15-29 CKD 5 Kidney failure <15 Note: (go live 2024) the eGFR calculation was updated to the 2020 CKD-EPI creatinine equation without a race factor to calculate the eGFR results. Glucose [Mass/Vol] 94 mg/dL Normal 70 - 110 mg/dL ADM SS Potassium [Moles/Vol] 4.2 mmol/L Normal 3.5 - 5.0 mEq/L ADM SS Sodium [Moles/Vol] 140 mmol/L Normal 136 - 145 mEq/L ADM SS Urea nitrogen [Mass/Vol] 17.0 mg/dL Normal 8.0 - 22.0 mg/dL ADM SS Urea nitrogen/Creatinine [Mass ratio] 20.5 ratio Normal 10.0 - 22.0 ratio AH ADM SS CFUNGBon 11-06-2024 CFUNGB Normal [facility] .Auto Diffon 10-31-2024 Basophil, Absolute 0.0 10 3/mcL Normal 0.0-0.[address] [facility] Comment on above: Performed By: #### B MP, GFR, ANEU, CBC, ADIFF ####[address] [address] Basophils/100 WBC (Bld) 0.5 % Normal 0.0-2.5 [facility] Comment on above: Performed By: #### B MP, GFR, ANEU, CBC, ADIFF ####[address] [address] Eosinophil, Absolute 0.1 10 3/mcL Normal 0.0-0.7 [facility] Comment on above: Performed By: #### B MP, GFR, ANEU, CBC, ADIFF ####[address] [address] Eosinophils/100 WBC (Bld) 1.3 % Normal 0.0-6.0 [facility] Comment on above: Performed By: #### B MP, GFR, ANEU, CBC, ADIFF ####[address] [address] Lymphocyte, Absolute 2.0 10 3/mcL Normal 0.9-4.3 [facility] Comment on above: Performed By: #### B MP, GFR, ANEU, CBC, ADIFF ####[address] [address] Lymphocytes/100 WBC (Bld) 24.4 % Normal 20.0-40.0 [facility] Comment on above: Performed By: #### B MP, GFR, ANEU, CBC, ADIFF ####[address] [address] Monocyte, Absolute 0.5 10 3/mcL Normal 0.1-1.[address] [facility] Comment on above: Performed By: #### B MP, GFR, ANEU, CBC, ADIFF ####[address] [address] Monocytes/100 WBC (Bld) 5.8 % Normal 2.0-13.0 [facility] Comment on above: Performed By: #### B MP, GFR, ANEU, CBC, ADIFF ####[address] [address] Neutrophils/100 WBC (Bld) 68.0 % Normal 50.0-75.0 [facility] Comment on above: Performed By: #### B MP, GFR, ANEU, CBC, ADIFF ####[place] [address] .GFRon 10-31-2024 Estimated Glomerular Filtration Rate 120 ml/min/1.73sqm Normal [facility] Comment on above: Result Comment: Stag es of Chronic Kidney Disease (CKD)Stage Description eGFR(ml/min/1.73 sq.m.)CKD 1 Normal kidney function or >=90 normal kindney function with possible kidney damage (ex. Proteinuria)CKD 2 Kidney damage with mild loss 60-89 of kidney functionCKD 3a Mild to moderate loss of kidney 45-59 functionCKD 3b Moderate to severe loss of 30-44 of kindey function CKD 4 Severe loss of kidney function 15-29CKD 5 Kidney failure <15Note: (go live 2024) the eGFR calculation was updated to the KD-EPI creatinine equation without a race factor to calculate theeGFR results. Performed By: #### B MP, GFR, ANEU, CBC, ADIFF ####[place] [address] .NEUABSon 10-31-2024 Neutrophil, Absolute 5.5 10 3/mcL Normal 2.3-8.1 [facility] Comment on above: Performed By: #### B MP, GFR, ANEU, CBC, ADIFF ####[place] [id number] BMPon 10-31-2024 BUN/Creatinine Ratio 20.9 ratio Normal 10.0-22.[address] [facility] Comment on above: Performed By: #### B MP, GFR, ANEU, CBC, ADIFF ####[place] [address] Calcium [Mass/Vol] 9.9 mg/dL Normal 8.7-10.4 [facility] Comment on above: Performed By: #### B MP, GFR, ANEU, CBC, ADIFF ####[place] [address] Chloride [Moles/Vol] 102 mmol/L Normal 98-[address] [facility] Comment on above: Performed By: #### B MP, GFR, ANEU, CBC, ADIFF ####[address] [address] CO2 [Moles/Vol] 26 mmol/L Normal 22-32 [facility] Comment on above: Performed By: #### B MP, GFR, ANEU, CBC, ADIFF ####[address] [address] Creatinine [Mass/Vol] 0.86 mg/dL Normal 0.60-1.[address] [facility] Comment on above: Result Comment: Test ing performed on [employer] analyzer using enzymatic creatinine methodology. Performed By: #### B MP, GFR, ANEU, CBC, ADIFF ####[address] [address] Electrolyte Balance 11.0 mEq/L Normal 4.0-15.0 [facility] Comment on above: Performed By: #### B MP, GFR, ANEU, CBC, ADIFF ####[address] [address] Glucose [Mass/Vol] 84 mg/dL Normal 70-110 [facility] Comment on above: Performed By: #### B MP, GFR, ANEU, CBC, ADIFF ####[address] [address] Potassium [Moles/Vol] 4.1 mmol/L Normal 3.5-5.[address] [facility] Comment on above: Performed By: #### B MP, GFR, ANEU, CBC, ADIFF ####[address] [address] Sodium [Moles/Vol] 139 mmol/L Normal 136-145 [facility] Comment on above: Performed By: #### B MP, GFR, ANEU, CBC, ADIFF ####[address] [address] Urea nitrogen [Mass/Vol] 18.0 mg/dL Normal 8.0-22.0 [facility] Comment on above: Performed By: #### B MP, GFR, ANEU, CBC, ADIFF ####[place] [address] CBCon 10-31-2024 Erythrocyte distribution width (RBC) [Ratio] 18.3 % High 11.5-15.5 [facility] Comment on above: Performed By: #### B MP, GFR, ANEU, CBC, ADIFF ####[place] [address] Hematocrit (Bld) [Volume fraction] 27.3 % Low 40.0-52.0 [facility] Comment on above: Performed By: #### B MP, GFR, ANEU, CBC, ADIFF ####[place] [address] Hgb 9.0 G/dL Low 13.0-17.5 [facility] Comment on above: Performed By: #### B MP, GFR, ANEU, CBC, ADIFF ####[place] [address] MCH (RBC) [Entitic mass] 28.9 pg Normal 27.0-33.0 [facility] Comment on above: Performed By: #### B MP, GFR, ANEU, CBC, ADIFF ####[place] [address] MCHC 33.2 G/dL Normal 32.0-36.0 [facility] Comment on above: Performed By: #### B MP, GFR, ANEU, CBC, ADIFF ####[place] [address] MCV (RBC) [Entitic vol] 87.1 fL Normal 81.0-100.0 [facility] Comment on above: Performed By: #### B MP, GFR, ANEU, CBC, ADIFF ####[place] [address] Platelet 291 10 3/mcL Normal 150-450 [facility] Comment on above: Performed By: #### B MP, GFR, ANEU, CBC, ADIFF ####[place] [address] Platelet mean volume (Bld) [Entitic vol] 7.5 fL Normal 6.4-10.5 [facility] Comment on above: Performed By: #### B MP, GFR, ANEU, CBC, ADIFF ####[place] [id number] [place] [address] RBC 3.13 10 6/mcL Low 4.50-6.00 [facility] Comment on above: Performed By: #### B MP, GFR, ANEU, CBC, ADIFF ####[place] [id number] [place] [address] WBC 8.1 10 3/mcL Normal 4.5-10.8 [facility] Comment on above: Performed By: #### B MP, GFR, ANEU, CBC, ADIFF ####[address] [address] LABORATORYOrdered By: SYSTEM SYSTEM on 10-31-2024 Basophils (Bld) [#/Vol] 0.0 103/mcL Normal 0.0 - 0.3 10^3/mcL Workflow SS Basophils/100 WBC (Bld) 0.5 % Normal 0.0 - 2.5 % Workflow SS Calcium [Mass/Vol] 9.9 mg/dL Normal 8.7 - 10. 4 mg/dL ADM SS Chloride [Moles/Vol] 102 mmol/L Normal 98 - 11 0 mEq/L ADM SS CO2 [Moles/Vol] 26 mmol/L Normal 22 - 32 mEq/L ADM SS Creatinine [Mass/Vol] 0.86 mg/dL Normal 0.60 - 1.40 mg/dL ADM SS Comment on above: Interpretive Data: T esting performed on [employer] analyzer using enzymatic creatinine methodology. Electrolyte Balance 11.0 mEq/L Normal 4.0 - 15 .0 mEq/L ADM SS Eosinophils (Bld) [#/Vol] 0.1 103/mcL Normal 0.0 - 0.7 10^3/mcL AH Workflow SS Eosinophils/100 WBC (Bld) 1.3 % Normal 0.0 - 6.0 % AH Workflow SS Erythrocyte distribution width (RBC) [Ratio] 18.3 % High 11.5 - 15.5 % AH Workflow SS Estimated Glomerular Filtration Rate 120 ml/min/1.73sqm Invalid Interpretation Code AH ADM SS Comment on above: Interpretive Data: Stages of Chronic Kidney Disease (CKD) Stage Description eGFR(ml/min/1.73 sq.m.) CKD 1 Normal kidney function or >=90 normal kindney function with possible kidney damage (ex. Proteinuria) CKD 2 Kidney damage with mild loss 60-89 of kidney function CKD 3a Mild to moderate loss of kidney 45-59 function CKD 3b Moderate to severe loss of 30-44 of kindey function CKD 4 Severe loss of kidney function 15-29 CKD 5 Kidney failure <15 Note: (go live 2024) the eGFR calculation was updated to the 2020 CKD-EPI creatinine equation without a race factor to calculate the eGFR results. Glucose [Mass/Vol] 84 mg/dL Normal 70 - 110 mg/dL AH ADM SS Hematocrit (Bld) [Volume fraction] 27.3 % Low 40.0 - 52.0 % AH Workflow SS Hemoglobin (Bld) [Mass/Vol] 9.0 G/dL Low 13.0 - 17.5 G/dL AH Workflow SS Lymphocytes (Bld) [#/Vol] 2.0 103/mcL Normal 0.9 - 4.3 10^3/mcL AH Workflow SS Lymphocytes/100 WBC (Bld) 24.4 % Normal 20.0 - 40.0 % AH Workflow SS MCH (RBC) [Entitic mass] 28.9 pg Normal 27.0 - 33.0 pg AH Workflow SS MCHC 33.2 G/dL Normal 32.0 - 36.0 G/dL AH Workflow SS MCV (RBC) [Entitic vol] 87.1 fL Normal 81.0 - 100.0 fL AH Workflow SS Monocytes (Bld) [#/Vol] 0.5 103/mcL Normal 0.1 - 1.4 10^3/mcL AH Workflow SS Monocytes/100 WBC (Bld) 5.8 % Normal 2.0 - 13.0 % AH Workflow SS Neutrophils (Bld) [#/Vol] 5.5 103/mcL Normal 2.3 - 8.1 10^3/mcL AH Workflow SS Neutrophils/100 WBC (Bld) 68.0 % Normal 50.0 - 75.0 % AH Workflow SS Platelet mean volume (Bld) [Entitic vol] 7.5 fL Normal 6.4 - 10.5 fL AH Workflow SS Platelets (Bld) [#/Vol] 291 103/mcL Normal 150 - 450 10^3/mcL Workflow SS Potassium [Moles/Vol] 4.1 mmol/L Normal 3.5 - 5.0 mEq/L ADM SS RBC (Bld) [#/Vol] 3.13 106/mcL Low 4.50 - 6.00 10^6/mcL AH Workflow SS Sodium [Moles/Vol] 139 mmol/L Normal 136 - 145 mEq/L ADM SS Urea nitrogen [Mass/Vol] 18.0 mg/dL Normal 8.0 - 22.0 mg/dL ADM SS Urea nitrogen/Creatinine [Mass ratio] 20.9 ratio Normal 10.0 - 22.0 ratio ADM SS WBC (Bld) [#/Vol] 8.1 103/mcL Normal 4.5 - 10.8 10^3/mcL Workflow SS CFUNGon 10-30-2024 CFUNG Normal [facility] XR CHEST 1 VIEWon 10-30-2024 XR CHEST 1 VIEW Normal [facility] .Auto Diffon 10-29-2024 Basophil, Absolute 0.1 10 3/mcL Normal 0.0-0.[address] [facility] Comment on above: Performed By: #### B MP, GFR, ADIFF, CBC, ANEU ####[address] [address] Eosinophil, Absolute 0.1 10 3/mcL Normal 0.0-0.7 [facility] Comment on above: Performed By: #### B MP, GFR, ADIFF, CBC, ANEU ####[address] [address] Lymphocyte, Absolute 1.9 10 3/mcL Normal 0.9-4.3 [facility] Comment on above: Performed By: #### B MP, GFR, ADIFF, CBC, ANEU ####[address] [address] Monocyte, Absolute 0.4 10 3/mcL Normal 0.1-1.[address] [facility] Comment on above: Performed By: #### B MP, GFR, ADIFF, CBC, ANEU ####[address] [address] .Auto DiffOrdered By: SYSTEM SYSTEM on 10-29-2024 Basophils/100 WBC (Bld) 0.8 % Normal 0.0-2.5 A H Workflow SS Comment on above: Performed By: #### B MP, GFR, ADIFF, CBC, ANEU ####[address] [address] Eosinophils/100 WBC (Bld) 1.3 % Normal 0.0-6.0 AH Workflow SS Comment on above: Performed By: #### B MP, GFR, ADIFF, CBC, ANEU ####[address] [address] Lymphocytes/100 WBC (Bld) 24.9 % Normal 20.0-40.0 AH Workflow SS Comment on above: Performed By: #### B MP, GFR, ADIFF, CBC, ANEU ####[address] [address] Monocytes/100 WBC (Bld) 5.9 % Normal 2.0-13.0 A H Workflow SS Comment on above: Performed By: #### B MP, GFR, ADIFF, CBC, ANEU ####[address] [address] Neutrophils/100 WBC (Bld) 67.1 % Normal 50.0-75.0 AH Workflow SS Comment on above: Performed By: #### B MP, GFR, ADIFF, CBC, ANEU ####[address] [address] .GFROrdered By: SYSTEM Movity on 10-29-2024 Estimated Glomerular Filtration Rate 114 ml/min/1.73sqm Normal AH ADM SS Comment on above: Interpretive Data: Stages of Chronic Kidney Disease (CKD) Stage Description eGFR(ml/min/1.73 sq.m.) CKD 1 Normal kidney function or >=90 normal kindney function with possible kidney damage (ex. Proteinuria) CKD 2 Kidney damage with mild loss 60-89 of kidney function CKD 3a Mild to moderate loss of kidney 45-59 function CKD 3b Moderate to severe loss of 30-44 of kindey function CKD 4 Severe loss of kidney function 15-29 CKD 5 Kidney failure <15 Note: (go live 2024) the eGFR calculation was updated to the 2020 CKD-EPI creatinine equation without a race factor to calculate the eGFR results. Result Comment: Stag es of Chronic Kidney Disease (CKD)Stage Description eGFR(ml/min/1.73 sq.m.)CKD 1 Normal kidney function or >=90 normal kindney function with possible kidney damage (ex. Proteinuria)CKD 2 Kidney damage with mild loss 60-89 of kidney functionCKD 3a Mild to moderate loss of kidney 45-59 functionCKD 3b Moderate to severe loss of 30-44 of kindey function CKD 4 Severe loss of kidney function 15-29CKD 5 Kidney failure <15Note: (go live 2024) the eGFR calculation was updated to the KD-EPI creatinine equation without a race factor to calculate theeGFR results. Performed By: #### B MP, GFR, ADIFF, CBC, ANEU ####[place] [address] .NEUABSon 10-29-2024 Neutrophil, Absolute 5.0 10 3/mcL Normal 2.3-8.1 [facility] Comment on above: Performed By: #### B MP, GFR, ADIFF, CBC, ANEU ####[place] [address] BGon 10-29-2024 Base excess Calc (Bld) [Moles/Vol] 0.1 mmol/L Normal [facility] Comment on above: Performed By: #### B G ####[place] [address] CO2 [Moles/Vol] 24.7 mmol/L Normal 22.0-30.0 [facility] Comment on above: Performed By: #### B G ####[place] [address] HCO3 (Bld) [Moles/Vol] 23.7 mmol/L Normal 21.0-29.0 [facility] Comment on above: Performed By: #### B G ####[place] [id number] Oxygen (Bld) [Partial pressure] 69.5 mm[Hg] Low 74.0-108.0 [facility] Comment on above: Performed By: #### B G ####[place] [address] Oxygen saturation in Blood 94.1 % Normal 92.0-96.0 [facility] Comment on above: Performed By: #### B G ####[place] [address] pCO2 34.5 mmHg Normal 32.0-46.0 [facility] Comment on above: Performed By: #### B G ####[place] [address] pH (Bld) 7.454 [pH] Normal 7.380-7.46 0 [facility] Comment on above: Performed By: #### B G ####[place] [address] BMPon 10-29-2024 BUN/Creatinine Ratio 20.4 ratio Normal 10.0-22.[address] [facility] Comment on above: Performed By: #### B MP, GFR, ADIFF, CBC, ANEU ####[place] [address] BMPOrdered By: SYSTEM SYSTEM on 10-29-2024 Calcium [Mass/Vol] 9.4 mg/dL Normal 8.7-10.4 ADM SS Comment on above: Performed By: #### B MP, GFR, ADIFF, CBC, ANEU ####[place] [address] Chloride [Moles/Vol] 103 mmol/L Normal 98-110 AH A DM SS Comment on above: Performed By: #### B MP, GFR, ADIFF, CBC, ANEU ####[place] [address] CO2 [Moles/Vol] 26 mmol/L Normal 22-32 AH ADM SS Comment on above: Performed By: #### B MP, GFR, ADIFF, CBC, ANEU ####[place] [address] Creatinine [Mass/Vol] 0.93 mg/dL Normal 0.60-1.40 ADM SS Comment on above: Interpretive Data: T esting performed on [employer] CH analyzer using enzymatic creatinine methodology. Result Comment: Test ing performed on [employer] CH analyzer using enzymatic creatinine methodology. Performed By: #### B MP, GFR, ADIFF, CBC, ANEU ####[address] [address] Electrolyte Balance 11.0 mEq/L Normal 4.0-15.0 AH AD M SS Comment on above: Performed By: #### B MP, GFR, ADIFF, CBC, ANEU ####[address] [address] Glucose [Mass/Vol] 79 mg/dL Normal 70-110 AH ADM SS Comment on above: Performed By: #### B MP, GFR, ADIFF, CBC, ANEU ####[place] [address] Potassium [Moles/Vol] 4.4 mmol/L Normal 3.5-5.0 AH ADM SS Comment on above: Performed By: #### B MP, GFR, ADIFF, CBC, ANEU ####[place] [address] Sodium [Moles/Vol] 140 mmol/L Normal 136-145 AH ADM SS Comment on above: Performed By: #### B MP, GFR, ADIFF, CBC, ANEU ####[place] [address] Urea nitrogen [Mass/Vol] 19.0 mg/dL Normal 8.0-22.0 AH ADM SS Comment on above: Performed By: #### B MP, GFR, ADIFF, CBC, ANEU ####[place] [address] CBCOrdered By: SYSTEM SYSTEM on 10-29-2024 Erythrocyte distribution width (RBC) [Ratio] 18.7 % High 11.5-15.5 AH Workflow SS Comment on above: Performed By: #### B MP, GFR, ADIFF, CBC, ANEU ####[address] [address] Hematocrit (Bld) [Volume fraction] 25.8 % Low 40.0-52.0 AH Workflow SS Comment on above: Performed By: #### B MP, GFR, ADIFF, CBC, ANEU ####[address] [address] MCH (RBC) [Entitic mass] 28.5 pg Normal 27.0-33.0 AH Workflow SS Comment on above: Performed By: #### B MP, GFR, ADIFF, CBC, ANEU ####[place] [address] MCHC 32.9 G/dL Normal 32.0-36.0 AH Workflow SS Comment on above: Performed By: #### B MP, GFR, ADIFF, CBC, ANEU ####[place] [address] MCV (RBC) [Entitic vol] 86.8 fL Normal 81.0-100.0 A H Workflow SS Comment on above: Performed By: #### B MP, GFR, ADIFF, CBC, ANEU ####[place] [address] Platelet mean volume (Bld) [Entitic vol] 7.4 fL Normal 6.4-10.5 AH Workflow SS Comment on above: Performed By: #### B MP, GFR, ADIFF, CBC, ANEU ####[place] [address] CBCon 10-29-2024 Hgb 8.5 G/dL Low 13.0-17.5 [facility] Comment on above: Performed By: #### B MP, GFR, ADIFF, CBC, ANEU ####[place] [address] Platelet 294 10 3/mcL Normal 150-450 [facility] Comment on above: Performed By: #### B MP, GFR, ADIFF, CBC, ANEU ####[place] [address] RBC 2.97 10 6/mcL Low 4.50-6.00 [facility] Comment on above: Performed By: #### B MP, GFR, ADIFF, CBC, ANEU ####[place] [address] WBC 7.5 10 3/mcL Normal 4.5-10.8 [facility] Comment on above: Performed By: #### B MP, GFR, ADIFF, CBC, ANEU ####[place] [address] CFUNGBon 07-14-2025 CFUNGB Normal [facility] LABORATORYOrdered By: Lisa Riggs on 10-29-2024 CO2 [Moles/Vol] 24.7 mmol/L Normal 22.0 - 30.0 mmol/L Main Rapid Comm SS HCO3 (Bld) [Moles/Vol] 23.7 mmol/L Normal 21.0 - 29.0 mmol/L Main Rapid Comm SS Oxygen (Bld) [Partial pressure] 69.5 mm[Hg] Low 74.0 - 108.0 mm Hg Main Rapid Comm SS pCO2 34.5 mm[Hg] Normal 32.0 - 46.0 mm Hg Main Rapid Comm SS pH (Bld) 7.454 [pH] Normal 7.380 - 7.460 Main Rapid Comm SS Sodium [Moles/Vol] 0.1 mmol/L Invalid Interpretation Code Main Rapid Comm SS LABORATORYOrdered By: SYSTEM SYSTEM on 10-29-2024 Basophils (Bld) [#/Vol] 0.1 103/mcL Normal 0.0 - 0.3 10^3/mcL Workflow SS Eosinophils (Bld) [#/Vol] 0.1 103/mcL Normal 0.0 - 0.7 10^3/mcL Workflow SS Hemoglobin (Bld) [Mass/Vol] 8.5 G/dL Low 13.0 - 17.5 G/dL Workflow SS Lymphocytes (Bld) [#/Vol] 1.9 103/mcL Normal 0.9 - 4.3 10^3/mcL Workflow SS Monocytes (Bld) [#/Vol] 0.4 103/mcL Normal 0.1 - 1.4 10^3/mcL Workflow SS Neutrophils (Bld) [#/Vol] 5.0 103/mcL Normal 2.3 - 8.1 10^3/mcL Workflow SS Platelets (Bld) [#/Vol] 294 103/mcL Normal 150 - 450 10^3/mcL Workflow SS RBC (Bld) [#/Vol] 2.97 106/mcL Low 4.50 - 6.00 10^6/mcL AH Workflow SS Urea nitrogen/Creatinine [Mass ratio] 20.4 ratio Normal 10.0 - 22.0 ratio ADM SS WBC (Bld) [#/Vol] 7.5 103/mcL Normal 4.5 - 10.8 10^3/mcL AH Workflow SS XR CHEST 1 VIEWon 10-29-2024 XR CHEST 1 VIEW Normal [facility] .GFRon 10-28-2024 GFR/1.73 sq M.predicted among non-blacks MDRD (S/P/Bld) [Vol rate/Area] mL/min/{1.73_m2} Normal [facility] Comment on above: Result Comment: Stag es of Chronic Kidney Disease (CKD)Stage Description eGFR(ml/min/1.73 sq.m.)CKD 1 Normal kidney function or >=90 normal kindney function with possible kidney damage (ex. Proteinuria)CKD 2 Kidney damage with mild loss 60-89 of kidney functionCKD 3a Mild to moderate loss of kidney 45-59 functionCKD 3b Moderate to severe loss of 30-44 of kindey function CKD 4 Severe loss of kidney function 15-29CKD 5 Kidney failure <15Note: (go live 2024) the eGFR calculation was updated to the KD-EPI creatinine equation without a race factor to calculate theeGFR results. Performed By: #### B MP, GFR ####[address] [address] BMPon 10-28-2024 BUN/Creatinine Ratio 21.0 ratio Normal 10.0-22.[address] [facility] Comment on above: Performed By: #### B MP, GFR ####[address] [address] Calcium [Mass/Vol] 9.5 mg/dL Normal 8.7-10.4 [facility] Comment on above: Performed By: #### B MP, GFR ####[address] [address] Chloride [Moles/Vol] 103 mmol/L Normal 98-[address] [facility] Comment on above: Performed By: #### B MP, GFR ####[address] [address] CO2 [Moles/Vol] 27 mmol/L Normal 22-32 [facility] Comment on above: Performed By: #### B MP, GFR ####[address] [address] Creatinine [Mass/Vol] 0.81 mg/dL Normal 0.60-1.[address] [facility] Comment on above: Result Comment: Test ing performed on [employer] analyzer using enzymatic creatinine methodology. Performed By: #### B MP, GFR ####[place] [address] Electrolyte Balance 8.0 mEq/L Normal 4.0-15.0 [facility] Comment on above: Performed By: #### B MP, GFR ####[address] [address] Glucose [Mass/Vol] 83 mg/dL Normal 70-110 [facility] Comment on above: Performed By: #### B MP, GFR ####[place] [address] Potassium [Moles/Vol] 4.3 mmol/L Normal 3.5-5.[address] [facility] Comment on above: Performed By: #### B MP, GFR ####[place] [address] Sodium [Moles/Vol] 138 mmol/L Normal 136-145 [facility] Comment on above: Performed By: #### B MP, GFR ####[place] [address] Urea nitrogen [Mass/Vol] 17.0 mg/dL Normal 8.0-22.0 [facility] Comment on above: Performed By: #### B MP, GFR ####[place] [address] LABORATORYOrdered By: SYSTEM SYSTEM on 10-28-2024 Calcium [Mass/Vol] 9.5 mg/dL Normal 8.7 - 10. 4 mg/dL ADM SS Chloride [Moles/Vol] 103 mmol/L Normal 98 - 11 0 mEq/L AH ADM SS CO2 [Moles/Vol] 27 mmol/L Normal 22 - 32 mEq/L AH ADM SS Creatinine [Mass/Vol] 0.81 mg/dL Normal 0.60 - 1.40 mg/dL ADM SS Comment on above: Interpretive Data: T esting performed on [employer] analyzer using enzymatic creatinine methodology. Electrolyte Balance 8.0 mEq/L Normal 4.0 - 15 .0 mEq/L AH ADM SS Estimated Glomerular Filtration Rate ml/min/1.73sqm Invalid Interpretation Code AH ADM SS Comment on above: Interpretive Data: Stages of Chronic Kidney Disease (CKD) Stage Description eGFR(ml/min/1.73 sq.m.) CKD 1 Normal kidney function or >=90 normal kindney function with possible kidney damage (ex. Proteinuria) CKD 2 Kidney damage with mild loss 60-89 of kidney function CKD 3a Mild to moderate loss of kidney 45-59 function CKD 3b Moderate to severe loss of 30-44 of kindey function CKD 4 Severe loss of kidney function 15-29 CKD 5 Kidney failure <15 Note: (go live 2024) the eGFR calculation was updated to the 2020 CKD-EPI creatinine equation without a race factor to calculate the eGFR results. Glucose [Mass/Vol] 83 mg/dL Normal 70 - 110 mg/dL AH ADM SS Potassium [Moles/Vol] 4.3 mmol/L Normal 3.5 - 5.0 mEq/L AH ADM SS Sodium [Moles/Vol] 138 mmol/L Normal 136 - 145 mEq/L AH ADM SS Urea nitrogen [Mass/Vol] 17.0 mg/dL Normal 8.0 - 22.0 mg/dL AH ADM SS Urea nitrogen/Creatinine [Mass ratio] 21.0 ratio Normal 10.0 - 22.0 ratio AH ADM SS XR CHEST 1 VIEWon 10-28-2024 XR CHEST 1 VIEW Normal [facility] .GFRon 10-26-2024 GFR/1.73 sq M.predicted among non-blacks MDRD (S/P/Bld) [Vol rate/Area] mL/min/{1.73_m2} Normal [facility] Comment on above: Result Comment: Stag es of Chronic Kidney Disease (CKD)Stage Description eGFR(ml/min/1.73 sq.m.)CKD 1 Normal kidney function or >=90 normal kindney function with possible kidney damage (ex. Proteinuria)CKD 2 Kidney damage with mild loss 60-89 of kidney functionCKD 3a Mild to moderate loss of kidney 45-59 functionCKD 3b Moderate to severe loss of 30-44 of kindey function CKD 4 Severe loss of kidney function 15-29CKD 5 Kidney failure <15Note: (go live 2024) the eGFR calculation was updated to the KD-EPI creatinine equation without a race factor to calculate theeGFR results. Performed By: #### B MP, GFR ####[address] [address] BMPon 10-26-2024 BUN/Creatinine Ratio 24.1 ratio High 10.0-22.[address] [facility] Comment on above: Performed By: #### B MP, GFR ####[place] [id number] Calcium [Mass/Vol] 9.4 mg/dL Normal 8.7-10.4 [facility] Comment on above: Performed By: #### B MP, GFR ####[place] [id number] Chloride [Moles/Vol] 102 mmol/L Normal 98-[address] [facility] Comment on above: Performed By: #### B MP, GFR ####[place] [id number] CO2 [Moles/Vol] 26 mmol/L Normal 22-32 [facility] Comment on above: Performed By: #### B MP, GFR ####[place] [address] Creatinine [Mass/Vol] 0.79 mg/dL Normal 0.60-1.[address] [facility] Comment on above: Result Comment: Test ing performed on [employer] analyzer using enzymatic creatinine methodology. Performed By: #### B MP, GFR ####[place] [address] Electrolyte Balance 12.0 mEq/L Normal 4.0-15.0 [facility] Comment on above: Performed By: #### B MP, GFR ####[place] [id number] Glucose [Mass/Vol] 81 mg/dL Normal 70-110 [facility] Comment on above: Performed By: #### B MP, GFR ####[place] [id number] Potassium [Moles/Vol] 4.4 mmol/L Normal 3.5-5.[address] [facility] Comment on above: Performed By: #### B MP, GFR ####[address] [address] Sodium [Moles/Vol] 140 mmol/L Normal 136-145 [facility] Comment on above: Performed By: #### B MP, GFR ####[address] [address] Urea nitrogen [Mass/Vol] 19.0 mg/dL Normal 8.0-22.0 [facility] Comment on above: Performed By: #### B MP, GFR ####[address] [address] .GFRon 10-24-2024 GFR/1.73 sq M.predicted among non-blacks MDRD (S/P/Bld) [Vol rate/Area] mL/min/{1.73_m2} Normal [facility] Comment on above: Result Comment: Stag es of Chronic Kidney Disease (CKD)Stage Description eGFR(ml/min/1.73 sq.m.)CKD 1 Normal kidney function or >=90 normal kindney function with possible kidney damage (ex. Proteinuria)CKD 2 Kidney damage with mild loss 60-89 of kidney functionCKD 3a Mild to moderate loss of kidney 45-59 functionCKD 3b Moderate to severe loss of 30-44 of kindey function CKD 4 Severe loss of kidney function 15-29CKD 5 Kidney failure <15Note: (go live 2024) the eGFR calculation was updated to the KD-EPI creatinine equation without a race factor to calculate theeGFR results. Performed By: #### G FR, BMP ####[address] [address] BMPon 10-24-2024 BUN/Creatinine Ratio 28.1 ratio High 10.0-22.[address] [facility] Comment on above: Performed By: #### G FR, BMP ####[address] [address] Calcium [Mass/Vol] 9.6 mg/dL Normal 8.7-10.4 [facility] Comment on above: Performed By: #### G FR, BMP ####[address] [address] Chloride [Moles/Vol] 101 mmol/L Normal 98-[address] [facility] Comment on above: Performed By: #### Mack SIERRA, BMP ####[address] [address] CO2 [Moles/Vol] 28 mmol/L Normal 22-32 [facility] Comment on above: Performed By: #### Mack SIERRA, BMP ####[address] [address] Creatinine [Mass/Vol] 0.64 mg/dL Normal 0.60-1.[address] [facility] Comment on above: Result Comment: Test ing performed on [employer] analyzer using enzymatic creatinine methodology. Performed By: #### Mack SIERRA, BMP ####[place] [address] Electrolyte Balance 9.0 mEq/L Normal 4.0-15.0 [facility] Comment on above: Performed By: #### Mack SIERRA, BMP ####[place] [address] Glucose [Mass/Vol] 85 mg/dL Normal 70-110 [facility] Comment on above: Performed By: #### Mack SIERRA, BMP ####[place] [address] Potassium [Moles/Vol] 4.2 mmol/L Normal 3.5-5.[address] [facility] Comment on above: Performed By: #### Mack SIERRA, BMP ####[place] [address] Sodium [Moles/Vol] 138 mmol/L Normal 136-145 [facility] Comment on above: Performed By: #### Mack SIERRA, BMP ####[address] [address] Urea nitrogen [Mass/Vol] 18.0 mg/dL Normal 8.0-22.0 [facility] Comment on above: Performed By: #### Mack SIERRA, BMP ####[address] [address] .GFRon 10-22-2024 GFR/1.73 sq M.predicted among non-blacks MDRD (S/P/Bld) [Vol rate/Area] mL/min/{1.73_m2} Normal [facility] Comment on above: Result Comment: Stag es of Chronic Kidney Disease (CKD)Stage Description eGFR(ml/min/1.73 sq.m.)CKD 1 Normal kidney function or >=90 normal kindney function with possible kidney damage (ex. Proteinuria)CKD 2 Kidney damage with mild loss 60-89 of kidney functionCKD 3a Mild to moderate loss of kidney 45-59 functionCKD 3b Moderate to severe loss of 30-44 of kindey function CKD 4 Severe loss of kidney function 15-29CKD 5 Kidney failure <15Note: (go live 2024) the eGFR calculation was updated to the KD-EPI creatinine equation without a race factor to calculate theeGFR results. Performed By: #### B MP, GFR ####[address] [address] BMPon 10-22-2024 BUN/Creatinine Ratio 21.1 ratio Normal 10.0-22.[address] [facility] Comment on above: Performed By: #### B MP, GFR ####[address] [address] Calcium [Mass/Vol] 9.3 mg/dL Normal 8.7-10.4 [facility] Comment on above: Performed By: #### B MP, GFR ####[address] [address] Chloride [Moles/Vol] 100 mmol/L Normal 98-[address] [facility] Comment on above: Performed By: #### B MP, GFR ####[address] [address] CO2 [Moles/Vol] 27 mmol/L Normal 22-32 [facility] Comment on above: Performed By: #### B MP, GFR ####[address] [address] Creatinine [Mass/Vol] 0.71 mg/dL Normal 0.60-1.[address] [facility] Comment on above: Result Comment: Test ing performed on [employer] analyzer using enzymatic creatinine methodology. Performed By: #### B MP, GFR ####[address] [address] Electrolyte Balance 10.0 mEq/L Normal 4.0-15.0 [facility] Comment on above: Performed By: #### B MP, GFR ####[address] [address] Glucose [Mass/Vol] 82 mg/dL Normal 70-110 [facility] Comment on above: Performed By: #### B MP, GFR ####[address] [address] Potassium [Moles/Vol] 4.9 mmol/L Normal 3.5-5.[address] [facility] Comment on above: Performed By: #### B MP, GFR ####[place] [address] Sodium [Moles/Vol] 137 mmol/L Normal 136-145 [facility] Comment on above: Performed By: #### B MP, GFR ####[place] [address] Urea nitrogen [Mass/Vol] 15.0 mg/dL Normal 8.0-22.0 [facility] Comment on above: Performed By: #### B MP, GFR ####[address] [address] CFUNGBon 10-22-2024 CFUNGB Normal [facility] XR CHEST 1 VIEWon 10-22-2024 XR CHEST 1 VIEW Normal [facility] .Auto Diffon 10-20-2024 Basophil, Absolute 0.0 10 3/mcL Normal 0.0-0.[address] [facility] Comment on above: Performed By: #### A DON WILKINSON, CBC ####[address] [address] Basophils/100 WBC (Bld) 0.7 % Normal 0.0-2.5 [facility] Comment on above: Performed By: #### A DON WILKINSON, CBC ####[address] [address] Eosinophil, Absolute 0.1 10 3/mcL Normal 0.0-0.7 [facility] Comment on above: Performed By: #### A DON WILKINSON, CBC ####[facility] [place] [address] Eosinophils/100 WBC (Bld) 1.1 % Normal 0.0-6.0 [facility] Comment on above: Performed By: #### A DON WILKINSON, CBC ####[facility] [place] [address] Lymphocyte, Absolute 1.6 10 3/mcL Normal 0.9-4.3 [facility] Comment on above: Performed By: #### A DON WILKINSON, CBC ####[address] [address] Lymphocytes/100 WBC (Bld) 21.0 % Normal 20.0-40.0 [facility] Comment on above: Performed By: #### A DON WILKINSON, CBC ####[address] [address] Monocyte, Absolute 0.7 10 3/mcL Normal 0.1-1.[address] [facility] Comment on above: Performed By: #### A DON WILKINSON, CBC ####[address] [address] Monocytes/100 WBC (Bld) 8.6 % Normal 2.0-13.0 [facility] Comment on above: Performed By: #### A DON WILKINSON, CBC ####[address] [address] Neutrophils/100 WBC (Bld) 68.6 % Normal 50.0-75.0 [facility] Comment on above: Performed By: #### A DON WILKINSON, CBC ####[address] [address] .GFRon 10-20-2024 GFR/1.73 sq M.predicted among non-blacks MDRD (S/P/Bld) [Vol rate/Area] mL/min/{1.73_m2} Normal [facility] Comment on above: Result Comment: Stag es of Chronic Kidney Disease (CKD)Stage Description eGFR(ml/min/1.73 sq.m.)CKD 1 Normal kidney function or >=90 normal kindney function with possible kidney damage (ex. Proteinuria)CKD 2 Kidney damage with mild loss 60-89 of kidney functionCKD 3a Mild to moderate loss of kidney 45-59 functionCKD 3b Moderate to severe loss of 30-44 of kindey function CKD 4 Severe loss of kidney function 15-29CKD 5 Kidney failure <15Note: (go live 2024) the eGFR calculation was updated to the KD-EPI creatinine equation without a race factor to calculate theeGFR results. Performed By: #### G FR, BMP ####[place] [address] .NEUABSon 10-20-2024 Neutrophil, Absolute 5.2 10 3/mcL Normal 2.3-8.1 [facility] Comment on above: Performed By: #### A DON WILKINSON, CBC ####[place] [address] BMPon 10-20-2024 BUN/Creatinine Ratio 22.9 ratio High 10.0-22.[address] [facility] Comment on above: Performed By: #### G FR, BMP ####[place] [address] Calcium [Mass/Vol] 9.3 mg/dL Normal 8.7-10.4 [facility] Comment on above: Performed By: #### G FR, BMP ####[place] [address] Chloride [Moles/Vol] 98 mmol/L Normal 98-[address] [facility] Comment on above: Performed By: #### G FR, BMP ####[place] [id number] CO2 [Moles/Vol] 27 mmol/L Normal 22-32 [facility] Comment on above: Performed By: #### G FR, BMP ####[place] [id number] Creatinine [Mass/Vol] 0.70 mg/dL Normal 0.60-1.[address] [facility] Comment on above: Result Comment: Test ing performed on [employer] analyzer using enzymatic creatinine methodology. Performed By: #### G FR, BMP ####[place] [address] Electrolyte Balance 10.0 mEq/L Normal 4.0-15.0 [facility] Comment on above: Performed By: #### Mack SIERRA, BMP ####[place] [address] Glucose [Mass/Vol] 97 mg/dL Normal 70-110 [facility] Comment on above: Performed By: #### Mack SIERRA, BMP ####[place] [address] Potassium [Moles/Vol] 4.6 mmol/L Normal 3.5-5.[address] [facility] Comment on above: Performed By: #### Mack SIERRA, BMP ####[place] [address] Sodium [Moles/Vol] 135 mmol/L Low 136-145 [facility] Comment on above: Performed By: #### Mack SIERRA, BMP ####[place] [address] Urea nitrogen [Mass/Vol] 16.0 mg/dL Normal 8.0-22.0 [facility] Comment on above: Performed By: #### Mack SIERRA, BMP ####[place] [address] CBCon 10-20-2024 Erythrocyte distribution width (RBC) [Ratio] 18.4 % High 11.5-15.5 [facility] Comment on above: Performed By: #### A DON WILKINSON, CBC ####[place] [address] Hematocrit (Bld) [Volume fraction] 27.7 % Low 40.0-52.0 [facility] Comment on above: Performed By: #### A DON WILKINSON, CBC ####[place] [address] Hgb 9.2 G/dL Low 13.0-17.5 [facility] Comment on above: Performed By: #### A DON WILKINSON, CBC ####[place] [address] MCH (RBC) [Entitic mass] 28.5 pg Normal 27.0-33.0 [facility] Comment on above: Performed By: #### A DON WILKINSON, CBC ####[place] [address] MCHC 33.1 G/dL Normal 32.0-36.0 [facility] Comment on above: Performed By: #### A DON WILKINSON, CBC ####[place] [address] MCV (RBC) [Entitic vol] 86.1 fL Normal 81.0-100.0 [facility] Comment on above: Performed By: #### A DON WILKINSON, CBC ####[place] [address] Platelet 369 10 3/mcL Normal 150-450 [facility] Comment on above: Performed By: #### A DON WILKINSON, CBC ####[place] [address] Platelet mean volume (Bld) [Entitic vol] 8.3 fL Normal 6.4-10.5 [facility] Comment on above: Performed By: #### A DON WILKINSON, CBC ####[place] [address] RBC 3.22 10 6/mcL Low 4.50-6.00 [facility] Comment on above: Performed By: #### A DON WILKINSON, CBC ####[place] [address] WBC 7.6 10 3/mcL Normal 4.5-10.8 [facility] Comment on above: Performed By: #### A DON WILKINSON, CBC ####[place] [address] LABORATORYOrdered By: SYSTEM SYSTEM on 10-20-2024 Basophils (Bld) [#/Vol] 0.0 103/mcL Normal 0.0 - 0.3 10^3/mcL AH Workflow SS Basophils/100 WBC (Bld) 0.7 % Normal 0.0 - 2.5 % AH Workflow SS Eosinophils (Bld) [#/Vol] 0.1 103/mcL Normal 0.0 - 0.7 10^3/mcL AH Workflow SS Eosinophils/100 WBC (Bld) 1.1 % Normal 0.0 - 6.0 % AH Workflow SS Erythrocyte distribution width (RBC) [Ratio] 18.4 % High 11.5 - 15.5 % AH Workflow SS Hematocrit (Bld) [Volume fraction] 27.7 % Low 40.0 - 52.0 % AH Workflow SS Hemoglobin (Bld) [Mass/Vol] 9.2 G/dL Low 13.0 - 17.5 G/dL AH Workflow SS Lymphocytes (Bld) [#/Vol] 1.6 103/mcL Normal 0.9 - 4.3 10^3/mcL AH Workflow SS Lymphocytes/100 WBC (Bld) 21.0 % Normal 20.0 - 40.0 % AH Workflow SS MCH (RBC) [Entitic mass] 28.5 pg Normal 27.0 - 33.0 pg AH Workflow SS MCHC 33.1 G/dL Normal 32.0 - 36.0 G/dL AH Workflow SS MCV (RBC) [Entitic vol] 86.1 fL Normal 81.0 - 100.0 fL AH Workflow SS Monocytes (Bld) [#/Vol] 0.7 103/mcL Normal 0.1 - 1.4 10^3/mcL AH Workflow SS Monocytes/100 WBC (Bld) 8.6 % Normal 2.0 - 13.0 % AH Workflow SS Neutrophils (Bld) [#/Vol] 5.2 103/mcL Normal 2.3 - 8.1 10^3/mcL AH Workflow SS Neutrophils/100 WBC (Bld) 68.6 % Normal 50.0 - 75.0 % AH Workflow SS Platelet mean volume (Bld) [Entitic vol] 8.3 fL Normal 6.4 - 10.5 fL AH Workflow SS Platelets (Bld) [#/Vol] 369 103/mcL Normal 150 - 450 10^3/mcL AH Workflow SS RBC (Bld) [#/Vol] 3.22 106/mcL Low 4.50 - 6.00 10^6/mcL AH Workflow SS WBC (Bld) [#/Vol] 7.6 103/mcL Normal 4.5 - 10.8 10^3/mcL AH Workflow SS XR CHEST 1 VIEWon 10-20-2024 XR CHEST 1 VIEW Normal [facility] .Auto Diff10-18-2024 Basophil, Absolute 0.0 10 3/mcL Normal 0.0-0.[address] [facility] Comment on above: Performed By: #### A DON WILKINSON, CBC ####[address] [address] Basophils/100 WBC (Bld) 0.6 % Normal 0.0-2.5 [facility] Comment on above: Performed By: #### A DON WILKINSON, CBC ####[address] [address] Eosinophil, Absolute 0.1 10 3/mcL Normal 0.0-0.7 [facility] Comment on above: Performed By: #### A DON WILKINSON, CBC ####[address] [address] Eosinophils/100 WBC (Bld) 1.1 % Normal 0.0-6.0 [facility] Comment on above: Performed By: #### A DON WILKINSON, CBC ####[address] [address] Lymphocyte, Absolute 1.7 10 3/mcL Normal 0.9-4.3 [facility] Comment on above: Performed By: #### A DON WILKINSON, CBC ####[address] [address] Lymphocytes/100 WBC (Bld) 20.7 % Normal 20.0-40.0 [facility] Comment on above: Performed By: #### A DON WILKINSON, CBC ####[address] [address] Monocyte, Absolute 0.7 10 3/mcL Normal 0.1-1.[address] [facility] Comment on above: Performed By: #### A MINHDON, CBC ####[address] [address] Monocytes/100 WBC (Bld) 8.1 % Normal 2.0-13.0 [facility] Comment on above: Performed By: #### A DON WILKINSON, CBC ####[address] [address] Neutrophils/100 WBC (Bld) 69.5 % Normal 50.0-75.0 [facility] Comment on above: Performed By: #### A DON WILKINSON, CBC ####[place] [address] .GFRon 10-18-2024 GFR/1.73 sq M.predicted among non-blacks MDRD (S/P/Bld) [Vol rate/Area] mL/min/{1.73_m2} Normal [facility] Comment on above: Result Comment: Stag es of Chronic Kidney Disease (CKD)Stage Description eGFR(ml/min/1.73 sq.m.)CKD 1 Normal kidney function or >=90 normal kindney function with possible kidney damage (ex. Proteinuria)CKD 2 Kidney damage with mild loss 60-89 of kidney functionCKD 3a Mild to moderate loss of kidney 45-59 functionCKD 3b Moderate to severe loss of 30-44 of kindey function CKD 4 Severe loss of kidney function 15-29CKD 5 Kidney failure <15Note: (go live 2024) the eGFR calculation was updated to the KD-EPI creatinine equation without a race factor to calculate theeGFR results. Performed By: #### Mack SIERRA BMP ####[place] [address] .NEUABSon 10-18-2024 Neutrophil, Absolute 5.8 10 3/mcL Normal 2.3-8.1 [facility] Comment on above: Performed By: #### A DON WILKINSON, CBC ####[place] [address] BMPon 10-18-2024 BUN/Creatinine Ratio 22.7 ratio High 10.0-22.[address] [facility] Comment on above: Performed By: #### Mack SIERRA, BMP ####[place] [address] Calcium [Mass/Vol] 9.5 mg/dL Normal 8.7-10.4 [facility] Comment on above: Performed By: #### Mack SIERRA, BMP ####[place] [address] Chloride [Moles/Vol] 98 mmol/L Normal 98-[address] [facility] Comment on above: Performed By: #### G FR, BMP ####[address] [address] CO2 [Moles/Vol] 29 mmol/L Normal 22-32 [facility] Comment on above: Performed By: #### G FR, BMP ####[address] [address] Creatinine [Mass/Vol] 0.75 mg/dL Normal 0.60-1.[address] [facility] Comment on above: Result Comment: Test ing performed on [employer] analyzer using enzymatic creatinine methodology. Performed By: #### G FR, BMP ####[place] [address] Electrolyte Balance 6.0 mEq/L Normal 4.0-15.0 [facility] Comment on above: Performed By: #### G FR, BMP ####[place] [address] Glucose [Mass/Vol] 95 mg/dL Normal 70-110 [facility] Comment on above: Performed By: #### G FR, BMP ####[place] [address] Potassium [Moles/Vol] 4.7 mmol/L Normal 3.5-5.[address] [facility] Comment on above: Performed By: #### G FR, BMP ####[place] [address] Sodium [Moles/Vol] 133 mmol/L Low 136-145 [facility] Comment on above: Performed By: #### G FR, BMP ####[place] [address] Urea nitrogen [Mass/Vol] 17.0 mg/dL Normal 8.0-22.0 [facility] Comment on above: Performed By: #### G FR, BMP ####[address] [address] CBCon 10-18-2024 Erythrocyte distribution width (RBC) [Ratio] 18.4 % High 11.5-15.5 [facility] Comment on above: Performed By: #### A DON WILKINSON, CBC ####[place] [address] Hematocrit (Bld) [Volume fraction] 29.5 % Low 40.0-52.0 [facility] Comment on above: Performed By: #### A DON WILKINSON, CBC ####[place] [address] Hgb 10.0 G/dL Low 13.0-17.5 [facility] Comment on above: Performed By: #### A DON WILKINSON, CBC ####[place] [address] MCH (RBC) [Entitic mass] 29.1 pg Normal 27.0-33.0 [facility] Comment on above: Performed By: #### A DON WILKINSON, CBC ####[place] [address] MCHC 34.1 G/dL Normal 32.0-36.0 [facility] Comment on above: Performed By: #### A DON WILKINSON, CBC ####[place] [address] MCV (RBC) [Entitic vol] 85.6 fL Normal 81.0-100.0 [facility] Comment on above: Performed By: #### A DON WILKINSON, CBC ####[place] [address] Platelet 411 10 3/mcL Normal 150-450 [facility] Comment on above: Performed By: #### A DON WILKINSON, CBC ####[place] [address] Platelet mean volume (Bld) [Entitic vol] 8.4 fL Normal 6.4-10.5 [facility] Comment on above: Performed By: #### A DON WILKINSON, CBC ####[place] [address] RBC 3.44 10 6/mcL Low 4.50-6.00 [facility] Comment on above: Performed By: #### A DON WILKINSON, CBC ####[place] [id number] WBC 8.3 10 3/mcL Normal 4.5-10.8 [facility] Comment on above: Performed By: #### A MINH, JAHIFF, CBC ####[address] [address] .Auto Diffon 10-16-2024 Basophil, Absolute 0.1 10 3/mcL Normal 0.0-0.[address] [facility] Comment on above: Performed By: #### C BC, BMP, ADIFF, GFR, ANEU ####[address] [address] Basophils/100 WBC (Bld) 0.6 % Normal 0.0-2.5 [facility] Comment on above: Performed By: #### C BC, BMP, ADIFF, GFR, ANEU ####[address] [address] Eosinophil, Absolute 0.1 10 3/mcL Normal 0.0-0.7 [facility] Comment on above: Performed By: #### C BC, BMP, ADIFF, GFR, ANEU ####[address] [address] Eosinophils/100 WBC (Bld) 1.0 % Normal 0.0-6.0 [facility] Comment on above: Performed By: #### C BC, BMP, ADIFF, GFR, ANEU ####[address] [address] Lymphocyte, Absolute 1.7 10 3/mcL Normal 0.9-4.3 [facility] Comment on above: Performed By: #### C BC, BMP, ADIFF, GFR, ANEU ####[address] [address] Lymphocytes/100 WBC (Bld) 17.8 % Low 20.0-40.0 [facility] Comment on above: Performed By: #### C BC, BMP, ADIFF, GFR, ANEU ####[address] [address] Monocyte, Absolute 0.7 10 3/mcL Normal 0.1-1.[address] [facility] Comment on above: Performed By: #### C BC, BMP, ADIFF, GFR, ANEU ####[facility] [place] [address] Monocytes/100 WBC (Bld) 7.4 % Normal 2.0-13.0 [facility] Comment on above: Performed By: #### C BC, BMP, ADIFF, GFR, ANEU ####[place] [id number] [address] [place] [address] Neutrophils/100 WBC (Bld) 73.2 % Normal 50.0-75.0 [facility] Comment on above: Performed By: #### C BC, BMP, ADIFF, GFR, ANEU ####[address] [address] .GFRon 10-16-2024 GFR/1.73 sq M.predicted among non-blacks MDRD (S/P/Bld) [Vol rate/Area] mL/min/{1.73_m2} Normal [facility] Comment on above: Result Comment: Stag es of Chronic Kidney Disease (CKD)Stage Description eGFR(ml/min/1.73 sq.m.)CKD 1 Normal kidney function or >=90 normal kindney function with possible kidney damage (ex. Proteinuria)CKD 2 Kidney damage with mild loss 60-89 of kidney functionCKD 3a Mild to moderate loss of kidney 45-59 functionCKD 3b Moderate to severe loss of 30-44 of kindey function CKD 4 Severe loss of kidney function 15-29CKD 5 Kidney failure <15Note: (go live 2024) the eGFR calculation was updated to the KD-EPI creatinine equation without a race factor to calculate theeGFR results. Performed By: #### C BC, BMP, ADIFF, GFR, ANEU ####[place] [id number] [address] [place] [address] .NEUABSon 10-16-2024 Neutrophil, Absolute 7.0 10 3/mcL Normal 2.3-8.1 [facility] Comment on above: Performed By: #### C BC, BMP, ADIFF, GFR, ANEU ####[address] [address] BMPon 10-16-2024 BUN/Creatinine Ratio 15.7 ratio Normal 10.0-22.[address] [facility] Comment on above: Performed By: #### C BC, BMP, ADIFF, GFR, ANEU ####[address] [address] Calcium [Mass/Vol] 9.3 mg/dL Normal 8.7-10.4 [facility] Comment on above: Performed By: #### C BC, BMP, ADIFF, GFR, ANEU ####[place] [phone] Chloride [Moles/Vol] 99 mmol/L Normal 98-[address] [facility] Comment on above: Performed By: #### C BC, BMP, ADIFF, GFR, ANEU ####[place] [phone] CO2 [Moles/Vol] 27 mmol/L Normal 22-32 [facility] Comment on above: Performed By: #### C BC, BMP, ADIFF, GFR, ANEU ####[place] [address] Creatinine [Mass/Vol] 0.70 mg/dL Normal 0.60-1.[address] [facility] Comment on above: Result Comment: Test ing performed on [employer] analyzer using enzymatic creatinine methodology. Performed By: #### C BC, BMP, ADIFF, GFR, ANEU ####[address] [address] Electrolyte Balance 11.0 mEq/L Normal 4.0-15.0 [facility] Comment on above: Performed By: #### C BC, BMP, ADIFF, GFR, ANEU ####[address] [address] Glucose [Mass/Vol] 92 mg/dL Normal 70-110 [facility] Comment on above: Performed By: #### C BC, BMP, ADIFF, GFR, ANEU ####[place] [phone] Potassium [Moles/Vol] 4.4 mmol/L Normal 3.5-5.[address] [facility] Comment on above: Performed By: #### C BC, BMP, ADIFF, GFR, ANEU ####[place] [address] Sodium [Moles/Vol] 137 mmol/L Normal 136-145 [facility] Comment on above: Performed By: #### C BC, BMP, ADIFF, GFR, ANEU ####[place] [address] Urea nitrogen [Mass/Vol] 11.0 mg/dL Normal 8.0-22.0 [facility] Comment on above: Performed By: #### C BC, BMP, ADIFF, GFR, ANEU ####[place] [address] CBCon 10-16-2024 Erythrocyte distribution width (RBC) [Ratio] 18.0 % High 11.5-15.5 [facility] Comment on above: Performed By: #### C BC, BMP, ADIFF, GFR, ANEU ####[place] [address] Hematocrit (Bld) [Volume fraction] 30.4 % Low 40.0-52.0 [facility] Comment on above: Performed By: #### C BC, BMP, ADIFF, GFR, ANEU ####[place] [address] Hgb 10.3 G/dL Low 13.0-17.5 [facility] Comment on above: Performed By: #### C BC, BMP, ADIFF, GFR, ANEU ####[place] [address] MCH (RBC) [Entitic mass] 28.7 pg Normal 27.0-33.0 [facility] Comment on above: Performed By: #### C BC, BMP, ADIFF, GFR, ANEU ####[place] [address] MCHC 33.7 G/dL Normal 32.0-36.0 [facility] Comment on above: Performed By: #### C BC, BMP, ADIFF, GFR, ANEU ####[place] [address] MCV (RBC) [Entitic vol] 85.1 fL Normal 81.0-100.0 [facility] Comment on above: Performed By: #### C BC, BMP, ADIFF, GFR, ANEU ####[address] [address] Platelet 344 10 3/mcL Normal 150-450 [facility] Comment on above: Performed By: #### C BC, BMP, ADIFF, GFR, ANEU ####[address] [address] Platelet mean volume (Bld) [Entitic vol] 8.7 fL Normal 6.4-10.5 [facility] Comment on above: Performed By: #### C BC, BMP, ADIFF, GFR, ANEU ####[address] [address] RBC 3.57 10 6/mcL Low 4.50-6.00 [facility] Comment on above: Performed By: #### C BC, BMP, ADIFF, GFR, ANEU ####[place] [address] WBC 9.5 10 3/mcL Normal 4.5-10.8 [facility] Comment on above: Performed By: #### C BC, BMP, ADIFF, GFR, ANEU ####[place] [address] XR CHEST 1 VIEWon 10-16-2024 XR CHEST 1 VIEW Normal [facility] .Auto Diffon 10-15-2024 Basophil, Absolute 0.1 10 3/mcL Normal 0.0-0.[address] [facility] Comment on above: Performed By: #### A DIFF, BMP, ANEU, CBC, GFR ####[address] [address] Basophils/100 WBC (Bld) 0.7 % Normal 0.0-2.5 [facility] Comment on above: Performed By: #### A DIFF, BMP, ANEU, CBC, GFR ####[address] [address] Eosinophil, Absolute 0.1 10 3/mcL Normal 0.0-0.7 [facility] Comment on above: Performed By: #### A DIFF, BMP, ANEU, CBC, GFR ####[address] [address] Eosinophils/100 WBC (Bld) 0.9 % Normal 0.0-6.0 [facility] Comment on above: Performed By: #### A DIFF, BMP, ANEU, CBC, GFR ####[address] [address] Lymphocyte, Absolute 1.8 10 3/mcL Normal 0.9-4.3 [facility] Comment on above: Performed By: #### A DIFF, BMP, ANEU, CBC, GFR ####[address] [address] Lymphocytes/100 WBC (Bld) 18.1 % Low 20.0-40.0 [facility] Comment on above: Performed By: #### A DIFF, BMP, ANEU, CBC, GFR ####[address] [address] Monocyte, Absolute 0.7 10 3/mcL Normal 0.1-1.[address] [facility] Comment on above: Performed By: #### A DIFF, BMP, ANEU, CBC, GFR ####[address] [address] Monocytes/100 WBC (Bld) 7.6 % Normal 2.0-13.0 [facility] Comment on above: Performed By: #### A DIFF, BMP, ANEU, CBC, GFR ####[address] [address] Neutrophils/100 WBC (Bld) 72.7 % Normal 50.0-75.0 [facility] Comment on above: Performed By: #### A DIFF, BMP, ANEU, CBC, GFR ####[address] [address] .GFRon 10-15-2024 GFR/1.73 sq M.predicted among non-blacks MDRD (S/P/Bld) [Vol rate/Area] mL/min/{1.73_m2} Normal [facility] Comment on above: Result Comment: Stag es of Chronic Kidney Disease (CKD)Stage Description eGFR(ml/min/1.73 sq.m.)CKD 1 Normal kidney function or >=90 normal kindney function with possible kidney damage (ex. Proteinuria)CKD 2 Kidney damage with mild loss 60-89 of kidney functionCKD 3a Mild to moderate loss of kidney 45-59 functionCKD 3b Moderate to severe loss of 30-44 of kindey function CKD 4 Severe loss of kidney function 15-29CKD 5 Kidney failure <15Note: (go live 2024) the eGFR calculation was updated to the KD-EPI creatinine equation without a race factor to calculate theeGFR results. Performed By: #### A DIFF, BMP, ANEU, CBC, GFR ####[address] [address] .NEUABSon 10-15-2024 Neutrophil, Absolute 7.1 10 3/mcL Normal 2.3-8.1 [facility] Comment on above: Performed By: #### A DIFF, BMP, ANEU, CBC, GFR ####[address] [address] BMPon 10-15-2024 BUN/Creatinine Ratio 12.1 ratio Normal 10.0-22.[address] [facility] Comment on above: Performed By: #### A DIFF, BMP, ANEU, CBC, GFR ####[address] [address] Calcium [Mass/Vol] 8.9 mg/dL Normal 8.7-10.4 [facility] Comment on above: Performed By: #### A DIFF, BMP, ANEU, CBC, GFR ####[address] [address] Chloride [Moles/Vol] 102 mmol/L Normal 98-[address] [facility] Comment on above: Performed By: #### A DIFF, BMP, ANEU, CBC, GFR ####[address] [address] CO2 [Moles/Vol] 29 mmol/L Normal 22-32 [facility] Comment on above: Performed By: #### A DIFF, BMP, ANEU, CBC, GFR ####[address] [address] Creatinine [Mass/Vol] 0.66 mg/dL Normal 0.60-1.[address] [facility] Comment on above: Result Comment: Test ing performed on [employer] analyzer using enzymatic creatinine methodology. Performed By: #### A DIFF, BMP, ANEU, CBC, GFR ####[place] [address] Electrolyte Balance 7.0 mEq/L Normal 4.0-15.0 [facility] Comment on above: Performed By: #### A DIFF, BMP, ANEU, CBC, GFR ####[place] [address] Glucose [Mass/Vol] 96 mg/dL Normal 70-110 [facility] Comment on above: Performed By: #### A DIFF, BMP, ANEU, CBC, GFR ####[place] [address] Potassium [Moles/Vol] 4.5 mmol/L Normal 3.5-5.[address] [facility] Comment on above: Performed By: #### A DIFF, BMP, ANEU, CBC, GFR ####[place] [address] Sodium [Moles/Vol] 138 mmol/L Normal 136-145 [facility] Comment on above: Performed By: #### A DIFF, BMP, ANEU, CBC, GFR ####[place] [address] Urea nitrogen [Mass/Vol] 8.0 mg/dL Normal 8.0-22.0 [facility] Comment on above: Performed By: #### A DIFF, BMP, ANEU, CBC, GFR ####[place] [address] CBCon 10-15-2024 Erythrocyte distribution width (RBC) [Ratio] 18.5 % High 11.5-15.5 [facility] Comment on above: Performed By: #### A DIFF, BMP, ANEU, CBC, GFR ####[place] [address] Hematocrit (Bld) [Volume fraction] 30.7 % Low 40.0-52.0 [facility] Comment on above: Performed By: #### A DIFF, BMP, ANEU, CBC, GFR ####[address] [address] Hgb 10.3 G/dL Low 13.0-17.5 [facility] Comment on above: Performed By: #### A DIFF, BMP, ANEU, CBC, GFR ####[place] [address] MCH (RBC) [Entitic mass] 28.7 pg Normal 27.0-33.0 [facility] Comment on above: Performed By: #### A DIFF, BMP, ANEU, CBC, GFR ####[place] [address] MCHC 33.4 G/dL Normal 32.0-36.0 [facility] Comment on above: Performed By: #### A DIFF, BMP, ANEU, CBC, GFR ####[place] [address] MCV (RBC) [Entitic vol] 85.7 fL Normal 81.0-100.0 [facility] Comment on above: Performed By: #### A DIFF, BMP, ANEU, CBC, GFR ####[place] [address] Platelet 314 10 3/mcL Normal 150-450 [facility] Comment on above: Performed By: #### A DIFF, BMP, ANEU, CBC, GFR ####[place] [address] Platelet mean volume (Bld) [Entitic vol] 8.8 fL Normal 6.4-10.5 [facility] Comment on above: Performed By: #### A DIFF, BMP, ANEU, CBC, GFR ####[place] [address] RBC 3.58 10 6/mcL Low 4.50-6.00 [facility] Comment on above: Performed By: #### A DIFF, BMP, ANEU, CBC, GFR ####[place] [address] WBC 9.7 10 3/mcL Normal 4.5-10.8 [facility] Comment on above: Performed By: #### A DIFF, BMP, ANEU, CBC, GFR ####[place] [address] HCQPCRon 10-15-2024 HCV Test Info Comment Normal [facility] Comment on above: Result Comment: The quantitative range of this assay is 15 IU/mL to 100million IU/mL.Performed At: [facility] [id number] Sparks MD Ph:[phone] Performed By: #### [id number] ####[place] [address] Hep C Qn Not detected Normal [facility] Comment on above: Performed By: #### 5 [id number] ####[place] [address] XR CHEST 1 VIEWon 10-15-2024 XR CHEST 1 VIEW Normal [facility] .GFRon 10-14-2024 GFR/1.73 sq M.predicted among non-blacks MDRD (S/P/Bld) [Vol rate/Area] mL/min/{1.73_m2} Normal [facility] Comment on above: Result Comment: Stag es of Chronic Kidney Disease (CKD)Stage Description eGFR(ml/min/1.73 sq.m.)CKD 1 Normal kidney function or >=90 normal kindney function with possible kidney damage (ex. Proteinuria)CKD 2 Kidney damage with mild loss 60-89 of kidney functionCKD 3a Mild to moderate loss of kidney 45-59 functionCKD 3b Moderate to severe loss of 30-44 of kindey function CKD 4 Severe loss of kidney function 15-29CKD 5 Kidney failure <15Note: (go live 2024) the eGFR calculation was updated to the KD-EPI creatinine equation without a race factor to calculate theeGFR results. Performed By: #### C BC, CMP, GFR, DIFF, MORPH ####[place] [address] .Manual Diffon 10-14-2024 Bands 1.0 % Normal 0.0-5.0 [facility] Comment on above: Performed By: #### C BC, CMP, GFR, DIFF, MORPH ####[place] [address] Basophil %, Manual 0.0 % Normal 0.0-2.5 [facility] Comment on above: Performed By: #### C BC, CMP, GFR, DIFF, MORPH ####[address] [address] Basophil, Abs Manual 0.0 10 3/mcL Normal 0.0-0.3 [facility] Comment on above: Performed By: #### C BC, CMP, GFR, DIFF, MORPH ####[address] [address] Eosinophil %, Manual 0.0 % Normal 0.0-6.[address] [facility] Comment on above: Performed By: #### C BC, CMP, GFR, DIFF, MORPH ####[place] [phone] Eosinophil, Abs Manual 0.0 10 3/mcL Normal 0.0-0.7 [facility] Comment on above: Performed By: #### C BC, CMP, GFR, DIFF, MORPH ####[place] [phone] Lymphocyte %, Manual 11.0 % Low 20.0-40.[address] [facility] Comment on above: Performed By: #### C BC, CMP, GFR, DIFF, MORPH ####[address] [address] Lymphocyte, Abs Manual 1.2 10 3/mcL Normal 0.9-4.3 [facility] Comment on above: Performed By: #### C BC, CMP, GFR, DIFF, MORPH ####[place] [phone] Metamyelocyte 1.0 % Normal [facility] Comment on above: Performed By: #### C BC, CMP, GFR, DIFF, MORPH ####[place] [address] Monocyte %, Manual 8.0 % Normal 2.0-13.0 [facility] Comment on above: Performed By: #### C BC, CMP, GFR, DIFF, MORPH ####[place] [phone] Monocyte, Abs Manual 0.8 10 3/mcL Normal 0.1-1.4 [facility] Comment on above: Performed By: #### C BC, CMP, GFR, DIFF, MORPH ####[place] [address] Neutrophil %, Manual 79.0 % High 50.0-75.[address] [facility] Comment on above: Performed By: #### C BC, CMP, GFR, DIFF, MORPH ####[place] [address] Neutrophil, Abs Manual 8.4 10 3/mcL High 2.3-8.1 [facility] Comment on above: Performed By: #### C BC, CMP, GFR, DIFF, MORPH ####[place] [address] Nucleated RBC 0.0 /100 WBC Normal [facility] Comment on above: Performed By: #### C BC, CMP, GFR, DIFF, MORPH ####[place] [address] .Morphon 10-14-2024 Platelet Estimate Normal Normal [facility] Comment on above: Performed By: #### C BC, CMP, GFR, DIFF, MORPH ####[place] [address] RBC morphology finding Nom (Bld) Normal Normal [facility] Comment on above: Performed By: #### C BC, CMP, GFR, DIFF, MORPH ####[place] [address] CBCon 10-14-2024 Erythrocyte distribution width (RBC) [Ratio] 18.5 % High 11.5-15.5 [facility] Comment on above: Performed By: #### C BC, CMP, GFR, DIFF, MORPH ####[place] [address] Hematocrit (Bld) [Volume fraction] 29.0 % Low 40.0-52.0 [facility] Comment on above: Performed By: #### C BC, CMP, GFR, DIFF, MORPH ####[place] [address] Hgb 9.8 G/dL Low 13.0-17.5 [facility] Comment on above: Performed By: #### C BC, CMP, GFR, DIFF, MORPH ####[place] [address] MCH (RBC) [Entitic mass] 28.8 pg Normal 27.0-33.0 [facility] Comment on above: Performed By: #### C BC, CMP, GFR, DIFF, MORPH ####[place] [address] MCHC 33.9 G/dL Normal 32.0-36.0 [facility] Comment on above: Performed By: #### C BC, CMP, GFR, DIFF, MORPH ####[place] [address] MCV (RBC) [Entitic vol] 85.0 fL Normal 81.0-100.0 [facility] Comment on above: Performed By: #### C BC, CMP, GFR, DIFF, MORPH ####[place] [address] Platelet 274 10 3/mcL Normal 150-450 [facility] Comment on above: Performed By: #### C BC, CMP, GFR, DIFF, MORPH ####[place] [address] Platelet mean volume (Bld) [Entitic vol] 8.7 fL Normal 6.4-10.5 [facility] Comment on above: Performed By: #### C BC, CMP, GFR, DIFF, MORPH ####[place] [address] RBC 3.42 10 6/mcL Low 4.50-6.00 [facility] Comment on above: Performed By: #### C BC, CMP, GFR, DIFF, MORPH ####[place] [address] WBC 10.5 10 3/mcL Normal 4.5-10.8 [facility] Comment on above: Performed By: #### C BC, CMP, GFR, DIFF, MORPH ####[place] [address] CMPon 10-14-2024 Albumin Level 2.2 G/dL Low 3.2-4.8 [facility] Comment on above: Performed By: #### C BC, CMP, GFR, DIFF, MORPH ####[place] [phone] Albumin/Globulin [Mass ratio] 0.4 {ratio} Low 0.9-1.6 [facility] Comment on above: Performed By: #### C BC, CMP, GFR, DIFF, MORPH ####[place] [phone] ALP [Catalytic activity/Vol] 93 U/L Normal 38-126 [facility] Comment on above: Performed By: #### C BC, CMP, GFR, DIFF, MORPH ####[place] [address] ALT/SGPT <7 Low 12-55 [facility] Comment on above: Performed By: #### C BC, CMP, GFR, DIFF, MORPH ####[place] [address] AST [Catalytic activity/Vol] 27 U/L Normal 8-34 [facility] Comment on above: Performed By: #### C BC, CMP, GFR, DIFF, MORPH ####[place] [address] Bili Total 1.00 mg/dL Normal 0.20-1.20 [facility] Comment on above: Result Comment: Use of this assay is not recommended for patients undergoing treatment with eltrombopag due to the potential for falsely elevated results. Performed By: #### C BC, CMP, GFR, DIFF, MORPH ####[place] [address] BUN/Creatinine Ratio 17.7 ratio Normal 10.0-22.[address] [facility] Comment on above: Performed By: #### C BC, CMP, GFR, DIFF, MORPH ####[place] [address] Calcium [Mass/Vol] 8.2 mg/dL Low 8.7-10.4 [facility] Comment on above: Performed By: #### C BC, CMP, GFR, DIFF, MORPH ####[address] [address] Chloride [Moles/Vol] 101 mmol/L Normal 98-[address] [facility] Comment on above: Performed By: #### C BC, CMP, GFR, DIFF, MORPH ####[address] [address] CO2 [Moles/Vol] 29 mmol/L Normal 22-32 [facility] Comment on above: Performed By: #### C BC, CMP, GFR, DIFF, MORPH ####[place] [address] Creatinine [Mass/Vol] 0.62 mg/dL Normal 0.60-1.[address] [facility] Comment on above: Result Comment: Test ing performed on [employer] analyzer using enzymatic creatinine methodology. Performed By: #### C BC, CMP, GFR, DIFF, MORPH ####[place] [address] Electrolyte Balance 8.0 mEq/L Normal 4.0-15.0 [facility] Comment on above: Performed By: #### C BC, CMP, GFR, DIFF, MORPH ####[place] [id number] Globulin 5.1 G/dL High 2.5-4.2 [facility] Comment on above: Performed By: #### C BC, CMP, GFR, DIFF, MORPH ####[place] [id number] Glucose [Mass/Vol] 109 mg/dL Normal 70-110 [facility] Comment on above: Performed By: #### C BC, CMP, GFR, DIFF, MORPH ####[place] [id number] Potassium [Moles/Vol] 3.9 mmol/L Normal 3.5-5.[address] [facility] Comment on above: Performed By: #### C BC, CMP, GFR, DIFF, MORPH ####[place] [phone] Sodium [Moles/Vol] 138 mmol/L Normal 136-145 [facility] Comment on above: Performed By: #### C BC, CMP, GFR, DIFF, MORPH ####[facility] [place] [id number] Total Protein 7.3 G/dL Normal 5.7-8.2 [facility] Comment on above: Performed By: #### C BC, CMP, GFR, DIFF, MORPH ####[address] [address] Urea nitrogen [Mass/Vol] 11.0 mg/dL Normal 8.0-22.0 [facility] Comment on above: Performed By: #### C BC, CMP, GFR, DIFF, MORPH ####[address] [address] Michi 10-14-2024 Potassium [Moles/Vol] 4.1 mmol/L Normal 3.5-5.[address] [facility] Comment on above: Performed By: #### K ####[place] [address] LABORATORYOrdered By: SYSTEM SYSTEM on 10-14-2024 Albumin BCP dye [Mass/Vol] 2.2 G/dL Low 3.2 - 4.8 G/dL ADM SS Albumin/Globulin [Mass ratio] 0.4 {ratio} Low 0.9 - 1.6 ratio ADM SS ALP [Catalytic activity/Vol] 93 U/L Normal 38 - 126 U/L ADM SS ALT No additional P-5'-P [Catalytic activity/Vol] U/L 1 Low 12 - 55 U/L ADM SS AST [Catalytic activity/Vol] 27 U/L Normal 8 - 34 U/L ADM SS Band form neutrophils/100 WBC (Bld) 1.0 % Normal 0.0 - 5.0 % Workflow SS Basophils (Bld) [#/Vol] 0.0 103/mcL Normal 0.0 - 0.3 10^3/mcL Workflow SS Basophils/100 WBC (Bld) 0.0 % Normal 0.0 - 2.5 % Workflow SS Bilirubin [Mass/Vol] 1.00 mg/dL Normal 0.20 - 1.20 mg/dL ADM SS Comment on above: Interpretive Data: U se of this assay is not recommended for patients undergoing treatment with eltrombopag due to the potential for falsely elevated results. Eosinophils (Bld) [#/Vol] 0.0 103/mcL Normal 0.0 - 0.7 10^3/mcL AH Workflow SS Eosinophils/100 WBC (Bld) 0.0 % Normal 0.0 - 6.0 % AH Workflow SS Globulin 5.1 G/dL High 2.5 - 4.2 G/dL AH ADM SS Lymphocytes (Bld) [#/Vol] 1.2 103/mcL Normal 0.9 - 4.3 10^3/mcL AH Workflow SS Lymphocytes/100 WBC (Bld) 11.0 % Low 20.0 - 40.0 % AH Workflow SS Metamyelocytes/100 WBC (Bld) 1.0 % Invalid Interpretation Code Workflow SS Monocytes (Bld) [#/Vol] 0.8 103/mcL Normal 0.1 - 1.4 10^3/mcL AH Workflow SS Monocytes/100 WBC (Bld) 8.0 % Normal 2.0 - 13.0 % AH Workflow SS Neutrophils (Bld) [#/Vol] 8.4 103/mcL High 2.3 - 8.1 10^3/mcL AH Workflow SS Neutrophils/100 WBC (Bld) 79.0 % High 50.0 - 75.0 % Workflow SS Nucleated RBC 0.0 /100 WBC Invalid Interpretation Code Workflow SS Platelets LM Ql (Bld) Normal *NA* (10/14/24 3:39 AM) Invalid Interpretation Code Workflow SS Protein [Mass/Vol] 7.3 G/dL Normal 5.7 - 8.2 G/dL ADM SS RBC morphology finding Nom (Bld) Normal *NA* (10/14/24 3:39 AM) Invalid Interpretation Code Workflow SS XR CHEST 1 VIEWon 10-14-2024 XR CHEST 1 VIEW Normal [facility] .Auto Diffon 10-13-2024 Basophil, Absolute 0.1 10 3/mcL Normal 0.0-0.[address] [facility] Comment on above: Performed By: #### A DIFF, GFR, BMP, CBC, ANEU ####[facility] [place] [address] Basophils/100 WBC (Bld) 0.8 % Normal 0.0-2.5 [facility] Comment on above: Performed By: #### A DIFF, GFR, BMP, CBC, ANEU ####[address] [address] Eosinophil, Absolute 0.1 10 3/mcL Normal 0.0-0.7 [facility] Comment on above: Performed By: #### A DIFF, GFR, BMP, CBC, ANEU ####[address] [address] Eosinophils/100 WBC (Bld) 0.7 % Normal 0.0-6.0 [facility] Comment on above: Performed By: #### A DIFF, GFR, BMP, CBC, ANEU ####[address] [address] Lymphocyte, Absolute 1.1 10 3/mcL Normal 0.9-4.3 [facility] Comment on above: Performed By: #### A DIFF, GFR, BMP, CBC, ANEU ####[address] [address] Lymphocytes/100 WBC (Bld) 11.3 % Low 20.0-40.0 [facility] Comment on above: Performed By: #### A DIFF, GFR, BMP, CBC, ANEU ####[address] [address] Monocyte, Absolute 0.6 10 3/mcL Normal 0.1-1.[address] [facility] Comment on above: Performed By: #### A DIFF, GFR, BMP, CBC, ANEU ####[address] [address] Monocytes/100 WBC (Bld) 6.4 % Normal 2.0-13.0 [facility] Comment on above: Performed By: #### A DIFF, GFR, BMP, CBC, ANEU ####[address] [address] Neutrophils/100 WBC (Bld) 80.8 % High 50.0-75.0 [facility] Comment on above: Performed By: #### A DIFF, GFR, BMP, CBC, ANEU ####[address] [address] .GFRon 10-13-2024 GFR/1.73 sq M.predicted among non-blacks MDRD (S/P/Bld) [Vol rate/Area] mL/min/{1.73_m2} Normal [facility] Comment on above: Result Comment: Stag es of Chronic Kidney Disease (CKD)Stage Description eGFR(ml/min/1.73 sq.m.)CKD 1 Normal kidney function or >=90 normal kindney function with possible kidney damage (ex. Proteinuria)CKD 2 Kidney damage with mild loss 60-89 of kidney functionCKD 3a Mild to moderate loss of kidney 45-59 functionCKD 3b Moderate to severe loss of 30-44 of kindey function CKD 4 Severe loss of kidney function 15-29CKD 5 Kidney failure <15Note: (go live 2024) the eGFR calculation was updated to the KD-EPI creatinine equation without a race factor to calculate theeGFR results. Performed By: #### A DIFF, GFR, BMP, CBC, ANEU ####[address] [address] .NEUABSon 10-13-2024 Neutrophil, Absolute 7.7 10 3/mcL Normal 2.3-8.1 [facility] Comment on above: Performed By: #### A DIFF, GFR, BMP, CBC, ANEU ####[address] [address] BMPon 10-13-2024 BUN/Creatinine Ratio 21.7 ratio Normal 10.0-22.[address] [facility] Comment on above: Performed By: #### A DIFF, GFR, BMP, CBC, ANEU ####[address] [address] Calcium [Mass/Vol] 8.4 mg/dL Low 8.7-10.4 [facility] Comment on above: Performed By: #### A DIFF, GFR, BMP, CBC, ANEU ####[address] [address] Chloride [Moles/Vol] 103 mmol/L Normal 98-[address] [facility] Comment on above: Performed By: #### A DIFF, GFR, BMP, CBC, ANEU ####[address] [address] CO2 [Moles/Vol] 29 mmol/L Normal 22-32 [facility] Comment on above: Performed By: #### A DIFF, GFR, BMP, CBC, ANEU ####[place] [address] Creatinine [Mass/Vol] 0.69 mg/dL Normal 0.60-1.[address] [facility] Comment on above: Result Comment: Test ing performed on [employer] analyzer using enzymatic creatinine methodology. Performed By: #### A DIFF, GFR, BMP, CBC, ANEU ####[place] [address] Electrolyte Balance 8.0 mEq/L Normal 4.0-15.0 [facility] Comment on above: Performed By: #### A DIFF, GFR, BMP, CBC, ANEU ####[place] [address] Glucose [Mass/Vol] 92 mg/dL Normal 70-110 [facility] Comment on above: Performed By: #### A DIFF, GFR, BMP, CBC, ANEU ####[place] [address] Potassium [Moles/Vol] 4.0 mmol/L Normal 3.5-5.[address] [facility] Comment on above: Performed By: #### A DIFF, GFR, BMP, CBC, ANEU ####[place] [address] Sodium [Moles/Vol] 140 mmol/L Normal 136-145 [facility] Comment on above: Performed By: #### A DIFF, GFR, BMP, CBC, ANEU ####[place] [address] Urea nitrogen [Mass/Vol] 15.0 mg/dL Normal 8.0-22.0 [facility] Comment on above: Performed By: #### A DIFF, GFR, BMP, CBC, ANEU ####[place] [address] CBCon 10-13-2024 Erythrocyte distribution width (RBC) [Ratio] 19.1 % High 11.5-15.5 [facility] Comment on above: Performed By: #### A DIFF, GFR, BMP, CBC, ANEU ####[address] [address] Hematocrit (Bld) [Volume fraction] 28.7 % Low 40.0-52.0 [facility] Comment on above: Performed By: #### A DIFF, GFR, BMP, CBC, ANEU ####[place] [address] Hgb 9.7 G/dL Low 13.0-17.5 [facility] Comment on above: Performed By: #### A DIFF, GFR, BMP, CBC, ANEU ####[place] [address] MCH (RBC) [Entitic mass] 28.9 pg Normal 27.0-33.0 [facility] Comment on above: Performed By: #### A DIFF, GFR, BMP, CBC, ANEU ####[place] [address] MCHC 33.7 G/dL Normal 32.0-36.0 [facility] Comment on above: Performed By: #### A DIFF, GFR, BMP, CBC, ANEU ####[place] [address] MCV (RBC) [Entitic vol] 85.5 fL Normal 81.0-100.0 [facility] Comment on above: Performed By: #### A DIFF, GFR, BMP, CBC, ANEU ####[place] [address] Platelet 221 10 3/mcL Normal 150-450 [facility] Comment on above: Performed By: #### A DIFF, GFR, BMP, CBC, ANEU ####[place] [address] Platelet mean volume (Bld) [Entitic vol] 8.9 fL Normal 6.4-10.5 [facility] Comment on above: Performed By: #### A DIFF, GFR, BMP, CBC, ANEU ####[place] [address] RBC 3.36 10 6/mcL Low 4.50-6.00 [facility] Comment on above: Performed By: #### A DIFF, GFR, BMP, CBC, ANEU ####[address] [address] WBC 9.6 10 3/mcL Normal 4.5-10.8 [facility] Comment on above: Performed By: #### A DIFF, GFR, BMP, CBC, ANEU ####[address] [address] XR CHEST 1 VIEWon 10-13-2024 XR CHEST 1 VIEW Normal [facility] XR CHEST 1 VIEW Normal [facility] .Auto Diffon 10-12-2024 Basophil, Absolute 0.1 10 3/mcL Normal 0.0-0.[address] [facility] Comment on above: Performed By: #### B MP, ADIFF, GFR, CBC, ANEU ####[address] [address] Basophils/100 WBC (Bld) 1.4 % Normal 0.0-2.5 [facility] Comment on above: Performed By: #### B MP, ADIFF, GFR, CBC, ANEU ####[address] [address] Eosinophil, Absolute 0.1 10 3/mcL Normal 0.0-0.7 [facility] Comment on above: Performed By: #### B MP, ADIFF, GFR, CBC, ANEU ####[address] [address] Eosinophils/100 WBC (Bld) 0.8 % Normal 0.0-6.0 [facility] Comment on above: Performed By: #### B MP, ADIFF, GFR, CBC, ANEU ####[address] [address] Lymphocyte, Absolute 1.1 10 3/mcL Normal 0.9-4.3 [facility] Comment on above: Performed By: #### B MP, ADIFF, GFR, CBC, ANEU ####[address] [address] Lymphocytes/100 WBC (Bld) 13.9 % Low 20.0-40.0 [facility] Comment on above: Performed By: #### B MP, ADIFF, GFR, CBC, ANEU ####[address] [address] Monocyte, Absolute 0.6 10 3/mcL Normal 0.1-1.[address] [facility] Comment on above: Performed By: #### B MP, ADIFF, GFR, CBC, ANEU ####[address] [address] Monocytes/100 WBC (Bld) 7.1 % Normal 2.0-13.0 [facility] Comment on above: Performed By: #### B MP, ADIFF, GFR, CBC, ANEU ####[address] [address] Neutrophils/100 WBC (Bld) 76.8 % High 50.0-75.0 [facility] Comment on above: Performed By: #### B MP, ADIFF, GFR, CBC, ANEU ####[address] [address] .GFRon 10-12-2024 GFR/1.73 sq M.predicted among non-blacks MDRD (S/P/Bld) [Vol rate/Area] mL/min/{1.73_m2} [facility]IN Comment on above: Result Comment: Stag es of Chronic Kidney Disease (CKD)Stage Description eGFR(ml/min/1.73 sq.m.)CKD 1 Normal kidney function or >=90 normal kindney function with possible kidney damage (ex. Proteinuria)CKD 2 Kidney damage with mild loss 60-89 of kidney functionCKD 3a Mild to moderate loss of kidney 45-59 functionCKD 3b Moderate to severe loss of 30-44 of kindey function CKD 4 Severe loss of kidney function 15-29CKD 5 Kidney failure <15Note: (go live 2024) the eGFR calculation was updated to the KD-EPI creatinine equation without a race factor to calculate theeGFR results. Performed By: #### G FR, BMP ####[address] [address] GFR/1.73 sq M.predicted among non-blacks MDRD (S/P/Bld) [Vol rate/Area] mL/min/{1.73_m2} [facility] Comment on above: Result Comment: Stag es of Chronic Kidney Disease (CKD)Stage Description eGFR(ml/min/1.73 sq.m.)CKD 1 Normal kidney function or >=90 normal kindney function with possible kidney damage (ex. Proteinuria)CKD 2 Kidney damage with mild loss 60-89 of kidney functionCKD 3a Mild to moderate loss of kidney 45-59 functionCKD 3b Moderate to severe loss of 30-44 of kindey function CKD 4 Severe loss of kidney function 15-29CKD 5 Kidney failure <15Note: (go live 2024) the eGFR calculation was updated to the KD-EPI creatinine equation without a race factor to calculate theeGFR results. Performed By: #### B MP, ADIFF, GFR, CBC, ANEU ####[place] [address] .NEUABSon 10-12-2024 Neutrophil, Absolute 6.0 10 3/mcL Normal 2.3-8.1 [facility] Comment on above: Performed By: #### B MP, ADIFF, GFR, CBC, ANEU ####[place] [address] BGon 10-12-2024 Base excess Calc (Bld) [Moles/Vol] 0.2 mmol/L Normal [facility] Comment on above: Performed By: #### B G ####[place] [address] CO2 [Moles/Vol] 25.9 mmol/L Normal 22.0-30.0 [facility] Comment on above: Performed By: #### B G ####[place] [address] HCO3 (Bld) [Moles/Vol] 24.7 mmol/L Normal 21.0-29.0 [facility] Comment on above: Performed By: #### B G ####[place] [id number] Oxygen (Bld) [Partial pressure] 141.2 mm[Hg] High 74.0-108.0 [facility] Comment on above: Performed By: #### B G ####[place] [address] Oxygen saturation in Blood 98.9 % High 92.0-96.0 [facility] Comment on above: Performed By: #### B G ####[place] [address] pCO2 39.3 mmHg Normal 32.0-46.0 [facility] Comment on above: Performed By: #### B G ####[place] [address] pH (Bld) 7.416 [pH] Normal 7.380-7.46 0 [facility] Comment on above: Performed By: #### B G ####[place] [address] BMPon 10-12-2024 BUN/Creatinine Ratio 22.2 ratio High 10.0-22.[address] [facility] Comment on above: Performed By: #### G FR, BMP ####[place] [address] Calcium [Mass/Vol] 8.3 mg/dL Low 8.7-10.4 [facility] Comment on above: Performed By: #### G FR, BMP ####[place] [address] Chloride [Moles/Vol] 104 mmol/L Normal 98-[address] [facility] Comment on above: Performed By: #### G FR, BMP ####[place] [address] CO2 [Moles/Vol] 27 mmol/L Normal 22-32 [facility] Comment on above: Performed By: #### G FR, BMP ####[place] [address] Creatinine [Mass/Vol] 0.63 mg/dL Normal 0.60-1.[address] [facility] Comment on above: Result Comment: Test ing performed on [employer] analyzer using enzymatic creatinine methodology. Performed By: #### G FR, BMP ####[place] [address] Electrolyte Balance 10.0 mEq/L Normal 4.0-15.0 [facility] Comment on above: Performed By: #### G FR, BMP ####[address] [address] Glucose [Mass/Vol] 64 mg/dL Low 70-110 [facility] Comment on above: Performed By: #### G FR, BMP ####[address] [address] Potassium [Moles/Vol] 4.3 mmol/L Normal 3.5-5.[address] [facility] Comment on above: Performed By: #### G FR, BMP ####[address] [address] Sodium [Moles/Vol] 141 mmol/L Normal 136-145 [facility] Comment on above: Performed By: #### Mack SIERRA, BMP ####[place] [address] Urea nitrogen [Mass/Vol] 14.0 mg/dL Normal 8.0-22.0 [facility] Comment on above: Performed By: #### Mack FR, BMP ####[place] [address] BUN/Creatinine Ratio 19.4 ratio Normal 10.0-22.[address] [facility] Comment on above: Performed By: #### B MP, ADIFF, GFR, CBC, ANEU ####[place] [address] Calcium [Mass/Vol] 8.0 mg/dL Low 8.7-10.4 [facility] Comment on above: Performed By: #### B MP, ADIFF, GFR, CBC, ANEU ####[address] [address] Chloride [Moles/Vol] 104 mmol/L Normal 98-[address] [facility] Comment on above: Performed By: #### B MP, ADIFF, GFR, CBC, ANEU ####[address] [address] CO2 [Moles/Vol] 24 mmol/L Normal 22-32 [facility] Comment on above: Performed By: #### B MP, ADIFF, GFR, CBC, ANEU ####[address] [address] Creatinine [Mass/Vol] 0.62 mg/dL Normal 0.60-1.[address] [facility] Comment on above: Result Comment: Test ing performed on [employer] analyzer using enzymatic creatinine methodology. Performed By: #### B MP, ADIFF, GFR, CBC, ANEU ####[place] [address] Electrolyte Balance 11.0 mEq/L Normal 4.0-15.0 [facility] Comment on above: Performed By: #### B MP, ADIFF, GFR, CBC, ANEU ####[place] [address] Glucose [Mass/Vol] 58 mg/dL Low 70-110 [facility] Comment on above: Performed By: #### B MP, ADIFF, GFR, CBC, ANEU ####[place] [address] Potassium [Moles/Vol] 3.8 mmol/L Normal 3.5-5.[address] [facility] Comment on above: Performed By: #### B MP, ADIFF, GFR, CBC, ANEU ####[place] [address] Sodium [Moles/Vol] 139 mmol/L Normal 136-145 [facility] Comment on above: Performed By: #### B MP, ADIFF, GFR, CBC, ANEU ####[place] [address] Urea nitrogen [Mass/Vol] 12.0 mg/dL Normal 8.0-22.0 [facility] Comment on above: Performed By: #### B MP, ADIFF, GFR, CBC, ANEU ####[place] [address] CBCon 10-12-2024 Erythrocyte distribution width (RBC) [Ratio] 20.5 % High 11.5-15.5 [facility] Comment on above: Performed By: #### B MP, ADIFF, GFR, CBC, ANEU ####[place] [address] Hematocrit (Bld) [Volume fraction] 25.1 % Low 40.0-52.0 [facility] Comment on above: Performed By: #### B MP, ADIFF, GFR, CBC, ANEU ####[place] [address] Hgb 8.7 G/dL Low 13.0-17.5 [facility] Comment on above: Performed By: #### B MP, ADIFF, GFR, CBC, ANEU ####[place] [address] MCH (RBC) [Entitic mass] 30.4 pg Normal 27.0-33.0 [facility] Comment on above: Performed By: #### B MP, ADIFF, GFR, CBC, ANEU ####[place] [address] MCHC 34.8 G/dL Normal 32.0-36.0 [facility] Comment on above: Performed By: #### B MP, ADIFF, GFR, CBC, ANEU ####[place] [address] MCV (RBC) [Entitic vol] 87.2 fL Normal 81.0-100.0 [facility] Comment on above: Performed By: #### B MP, ADIFF, GFR, CBC, ANEU ####[place] [address] Platelet 158 10 3/mcL Normal 150-450 [facility] Comment on above: Performed By: #### B MP, ADIFF, GFR, CBC, ANEU ####[place] [address] Platelet mean volume (Bld) [Entitic vol] 9.3 fL Normal 6.4-10.5 [facility] Comment on above: Performed By: #### B MP, ADIFF, GFR, CBC, ANEU ####[place] [address] RBC 2.87 10 6/mcL Low 4.50-6.00 [facility] Comment on above: Performed By: #### B MP, ADIFF, GFR, CBC, ANEU ####[place] [address] WBC 7.8 10 3/mcL Normal 4.5-10.8 [facility] Comment on above: Performed By: #### B MP, ADIFF, GFR, CBC, ANEU ####[place] [address] GENTTon 10-12-2024 LDose Gentamicin:(trough) See eMAR Normal [facility] Comment on above: Performed By: #### G ENTT ####[place] [address] Gentamicin Tr <0.5 Normal 0.0-2.0 [facility] Comment on above: Performed By: #### G ENTT ####[place] [address] HHon 10-12-2024 Hematocrit (Bld) [Volume fraction] 27.0 % Low 40.0-52.0 [facility] Comment on above: Performed By: #### M G, ####[place] [address] Hgb 9.1 G/dL Low 13.0-17.5 [facility] Comment on above: Performed By: #### M G, ####[place] [address] IR EMBOLIZATION ANY METHODon 10-12-2024 IR EMBOLIZATION ANY METHOD Normal [facility] LABORATORYOrdered By: SYSTEM SYSTEM on 10-12-2024 Magnesium [Mass/Vol] 2.0 mg/dL Normal 1.6 - 2 .4 mg/dL ADM SS Gentamicin trough [Mass/Vol] mcg/mL Normal 0.0 - 2.0 mcg/mL AH ADM SS Magnesium [Mass/Vol] 1.5 mg/dL Low 1.6 - 2 .4 mg/dL ADM SS LABORATORYOrdered By: LABCOR P CONTRIBUTOR_SYSTEM on 10-12-2024 HCV Test Info () Comment Invalid Interpretation Code AH Sendouts SS Comment on above: Result Comment: The quantitative range of this assay is 15 IU/mL to 100 million IU/mL. Performed At: [facility] [id number] Javed Sparks MD Ph:[phone] Hep C Qn (LC) Not detected Invalid Interpretation Code AH Sendouts SS LABORATORYOrdered By: Cecelia Chris on 10-12-2024 CO2 [Moles/Vol] 25.9 mmol/L Normal 22.0 - 30.0 mmol/L Main Rapid Comm SS HCO3 (Bld) [Moles/Vol] 24.7 mmol/L Normal 21.0 - 29.0 mmol/L AH Main Rapid Comm SS Oxygen (Bld) [Partial pressure] 141.2 mm[Hg] High 74.0 - 108.0 mm Hg AH Main Rapid Comm SS pCO2 39.3 mm[Hg] Normal 32.0 - 46.0 mm Hg AH Main Rapid Comm SS pH (Bld) 7.416 [pH] Normal 7.380 - 7.460 Main Rapid Comm SS Sodium [Moles/Vol] 0.2 mmol/L Invalid Interpretation Code Main Rapid Comm SS LABORATORYOrdered By: Chelsey merrill on 10-12-2024 LDose Gentamicin:(trough) See eMAR (10/12/24 8:15 AM) Normal Chemistry S LABORATORYOrdered By: Demetria Perez on 10-12-2024 RBC Product Ready RBC Ready for Pickup (10/12/24 7:33 AM) Normal BB Manual SS MGon 10-12-2024 Magnesium [Mass/Vol] 2.0 mg/dL Normal 1.6-2.[address] [facility] Comment on above: Performed By: #### M G, ####[address] [address] Magnesium [Mass/Vol] 1.5 mg/dL Low 1.6-2.[address] [facility] Comment on above: Performed By: #### M G ####[address] [address] RBC (Product)on 10-12-2024 RBC Product Ready RBC Ready for Pickup Normal [facility] Comment on above: Performed By: #### R BCP ####[address] [address] XR CHEST 1 VIEWon 10-12-2024 XR CHEST 1 VIEW Normal [facility] .Auto Diffon 10-11-2024 Basophil, Absolute 0.1 10 3/mcL Normal 0.0-0.[address] [facility] Comment on above: Performed By: #### A DIFF, ANEU, BMP, GFR, CBC ####[address] [address] Basophils/100 WBC (Bld) 0.7 % Normal 0.0-2.5 [facility] Comment on above: Performed By: #### A DIFF, ANEU, BMP, GFR, CBC ####[address] [address] Eosinophil, Absolute 0.0 10 3/mcL Normal 0.0-0.7 [facility] Comment on above: Performed By: #### A DIFF, ANEU, BMP, GFR, CBC ####[address] [address] Eosinophils/100 WBC (Bld) 0.5 % Normal 0.0-6.0 [facility] Comment on above: Performed By: #### A DIFF, ANEU, BMP, GFR, CBC ####[address] [address] Lymphocyte, Absolute 0.9 10 3/mcL Normal 0.9-4.3 [facility] Comment on above: Performed By: #### A DIFF, ANEU, BMP, GFR, CBC ####[address] [address] Lymphocytes/100 WBC (Bld) 10.9 % Low 20.0-40.0 [facility] Comment on above: Performed By: #### A DIFF, ANEU, BMP, GFR, CBC ####[address] [address] Monocyte, Absolute 0.5 10 3/mcL Normal 0.1-1.[address] [facility] Comment on above: Performed By: #### A DIFF, ANEU, BMP, GFR, CBC ####[address] [address] Monocytes/100 WBC (Bld) 6.1 % Normal 2.0-13.0 [facility] Comment on above: Performed By: #### A DIFF, ANEU, BMP, GFR, CBC ####[address] [address] Neutrophils/100 WBC (Bld) 81.8 % High 50.0-75.0 [facility] Comment on above: Performed By: #### A DIFF, ANEU, BMP, GFR, CBC ####[address] [address] Basophil, Absolute 0.1 10 3/mcL Normal 0.0-0.[address] [facility] Comment on above: Performed By: #### A MINH, CBC, GFR, CMP, ADIFF ####[address] [address] Basophils/100 WBC (Bld) 1.2 % Normal 0.0-2.5 [facility] Comment on above: Performed By: #### A MINH, CBC, GFR, CMP, ADIFF ####[address] [address] Eosinophil, Absolute 0.1 10 3/mcL Normal 0.0-0.7 [facility] Comment on above: Performed By: #### A MINH, CBC, GFR, CMP, ADIFF ####[address] [address] Eosinophils/100 WBC (Bld) 0.6 % Normal 0.0-6.0 [facility] Comment on above: Performed By: #### A MINH, CBC, GFR, CMP, ADIFF ####[address] [address] Lymphocyte, Absolute 1.7 10 3/mcL Normal 0.9-4.3 [facility] Comment on above: Performed By: #### A MINH, CBC, GFR, CMP, ADIFF ####[address] [address] Lymphocytes/100 WBC (Bld) 18.7 % Low 20.0-40.0 [facility] Comment on above: Performed By: #### A MINH, CBC, GFR, CMP, ADIFF ####[address] [address] Monocyte, Absolute 0.5 10 3/mcL Normal 0.1-1.[address] [facility] Comment on above: Performed By: #### A MINH, CBC, GFR, CMP, ADIFF ####[place] [id number] [place] [address] Monocytes/100 WBC (Bld) 6.0 % Normal 2.0-13.0 [facility] Comment on above: Performed By: #### A MINH, CBC, GFR, CMP, ADIFF ####[place] [id number] [place] [address] Neutrophils/100 WBC (Bld) 73.5 % Normal 50.0-75.0 [facility] Comment on above: Performed By: #### A MINH, CBC, GFR, CMP, ADIFF ####[address] [address] .GFRon 10-11-2024 GFR/1.73 sq M.predicted among non-blacks MDRD (S/P/Bld) [Vol rate/Area] mL/min/{1.73_m2} [facility] MAIN Comment on above: Result Comment: Stag es of Chronic Kidney Disease (CKD)Stage Description eGFR(ml/min/1.73 sq.m.)CKD 1 Normal kidney function or >=90 normal kindney function with possible kidney damage (ex. Proteinuria)CKD 2 Kidney damage with mild loss 60-89 of kidney functionCKD 3a Mild to moderate loss of kidney 45-59 functionCKD 3b Moderate to severe loss of 30-44 of kindey function CKD 4 Severe loss of kidney function 15-29CKD 5 Kidney failure <15Note: (go live 2024) the eGFR calculation was updated to the KD-EPI creatinine equation without a race factor to calculate theeGFR results. Performed By: #### A DIFF, ANEU, BMP, GFR, CBC ####[address] [address] GFR/1.73 sq M.predicted among non-blacks MDRD (S/P/Bld) [Vol rate/Area] mL/min/{1.73_m2} [facility] MAIN Comment on above: Result Comment: Stag es of Chronic Kidney Disease (CKD)Stage Description eGFR(ml/min/1.73 sq.m.)CKD 1 Normal kidney function or >=90 normal kindney function with possible kidney damage (ex. Proteinuria)CKD 2 Kidney damage with mild loss 60-89 of kidney functionCKD 3a Mild to moderate loss of kidney 45-59 functionCKD 3b Moderate to severe loss of 30-44 of kindey function CKD 4 Severe loss of kidney function 15-29CKD 5 Kidney failure <15Note: (go live 2024) the eGFR calculation was updated to the KD-EPI creatinine equation without a race factor to calculate theeGFR results. Performed By: #### A MINH, CBC, GFR, CMP, ADIFF ####[place] [address] .NEUABSon 10-11-2024 Neutrophil, Absolute 7.0 10 3/mcL Normal 2.3-8.1 [facility] Comment on above: Performed By: #### A DIFF, ANEU, BMP, GFR, CBC ####[place] [address] Neutrophil, Absolute 6.7 10 3/mcL Normal 2.3-8.1 [facility] Comment on above: Performed By: #### A MINH, CBC, GFR, CMP, ADIFF ####[place] [address] BGon 10-11-2024 Base excess Calc (Bld) [Moles/Vol] 2.9 mmol/L Normal [facility] Comment on above: Performed By: #### B G ####[place] [address] CO2 [Moles/Vol] 27.5 mmol/L Normal 22.0-30.0 [facility] Comment on above: Performed By: #### B G ####[place] [id number] HCO3 (Bld) [Moles/Vol] 26.4 mmol/L Normal 21.0-29.0 [facility] Comment on above: Performed By: #### B G ####[place] [address] Oxygen (Bld) [Partial pressure] 140.7 mm[Hg] High 74.0-108.0 [facility] Comment on above: Performed By: #### B G ####[address] [address] Oxygen saturation in Blood 99.3 % High 92.0-96.0 [facility] Comment on above: Performed By: #### B G ####[address] [address] pCO2 35.6 mmHg Normal 32.0-46.0 [facility] Comment on above: Performed By: #### B G ####[address] [address] pH (Bld) 7.488 [pH] High 7.380-7.46 0 [facility] Comment on above: Performed By: #### B G ####[place] [address] Base excess Calc (Bld) [Moles/Vol] 0.7 mmol/L Normal [facility] Comment on above: Performed By: #### B G ####[place] [address] CO2 [Moles/Vol] 26.7 mmol/L Normal 22.0-30.0 [facility] Comment on above: Performed By: #### B G ####[place] [address] HCO3 (Bld) [Moles/Vol] 25.5 mmol/L Normal 21.0-29.0 [facility] Comment on above: Performed By: #### B G ####[place] [phone] Oxygen (Bld) [Partial pressure] 102.9 mm[Hg] Normal 74.0-108.0 [facility] Comment on above: Performed By: #### B G ####[place] [address] Oxygen saturation in Blood 97.5 % High 92.0-96.0 [facility] Comment on above: Performed By: #### B G ####[address] [address] pCO2 41.4 mmHg Normal 32.0-46.0 [facility] Comment on above: Performed By: #### B G ####[address] [address] pH (Bld) 7.407 [pH] Normal 7.380-7.46 0 [facility] Comment on above: Performed By: #### B G ####[place] [address] Base excess Calc (Bld) [Moles/Vol] 3.8 mmol/L Normal [facility] Comment on above: Performed By: #### B G ####[place] [address] CO2 [Moles/Vol] 30.6 mmol/L High 22.0-30.0 [facility] Comment on above: Performed By: #### B G ####[place] [address] HCO3 (Bld) [Moles/Vol] 29.1 mmol/L High 21.0-29.0 [facility] Comment on above: Performed By: #### B G ####[place] [address] Oxygen (Bld) [Partial pressure] 166.1 mm[Hg] High 74.0-108.0 [facility] Comment on above: Performed By: #### Perry G ####[place] [address] Oxygen saturation in Blood 99.0 % High 92.0-96.0 [facility] Comment on above: Performed By: #### B G ####[place] [address] pCO2 47.9 mmHg High 32.0-46.0 [facility] Comment on above: Performed By: #### B G ####[place] [id number] pH (Bld) 7.402 [pH] Normal 7.380-7.46 0 [facility] Comment on above: Performed By: #### B G ####[place] [address] Base excess Calc (Bld) [Moles/Vol] 5.7 mmol/L Normal [facility] Comment on above: Performed By: #### B G ####[address] [address] CO2 [Moles/Vol] 32.0 mmol/L High 22.0-30.0 [facility] Comment on above: Performed By: #### B G ####[address] [address] HCO3 (Bld) [Moles/Vol] 30.5 mmol/L High 21.0-29.0 [facility] Comment on above: Performed By: #### B G ####[address] [address] Oxygen (Bld) [Partial pressure] 188.3 mm[Hg] High 74.0-108.0 [facility] Comment on above: Performed By: #### B G ####[place] [address] Oxygen saturation in Blood 99.3 % High 92.0-96.0 [facility] Comment on above: Performed By: #### B G ####[address] [address] pCO2 46.1 mmHg High 32.0-46.0 [facility] Comment on above: Performed By: #### B G ####[address] [address] pH (Bld) 7.439 [pH] Normal 7.380-7.46 0 [facility] Comment on above: Performed By: #### B G ####[address] [address] Base excess Calc (Bld) [Moles/Vol] 4.0 mmol/L Normal [facility] Comment on above: Performed By: #### B G ####[address] [address] CO2 [Moles/Vol] 26.8 mmol/L Normal 22.0-30.0 [facility] Comment on above: Performed By: #### B G ####[address] [address] HCO3 (Bld) [Moles/Vol] 25.9 mmol/L Normal 21.0-29.0 [facility] Comment on above: Performed By: #### B G ####[place] [phone] Oxygen (Bld) [Partial pressure] 149.7 mm[Hg] High 74.0-108.0 [facility] Comment on above: Performed By: #### B G ####[place] [phone] Oxygen saturation in Blood 99.2 % High 92.0-96.0 [facility] Comment on above: Performed By: #### B G ####[address] [address] pCO2 29.3 mmHg Low 32.0-46.0 [facility] Comment on above: Performed By: #### B G ####[place] [address] pH (Bld) 7.564 [pH] High 7.380-7.46 0 [facility] Comment on above: Performed By: #### B G ####[address] [address] Base excess Calc (Bld) [Moles/Vol] 4.3 mmol/L Normal [facility] Comment on above: Performed By: #### B G ####[place] [address] CO2 [Moles/Vol] 27.2 mmol/L Normal 22.0-30.0 [facility] Comment on above: Performed By: #### B G ####[address] [address] HCO3 (Bld) [Moles/Vol] 26.3 mmol/L Normal 21.0-29.0 [facility] Comment on above: Performed By: #### B G ####[address] [address] Oxygen (Bld) [Partial pressure] 185.3 mm[Hg] High 74.0-108.0 [facility] Comment on above: Performed By: #### B G ####[address] [place] [address] Oxygen saturation in Blood 99.5 % High 92.0-96.0 [facility] Comment on above: Performed By: #### B G ####[address] [address] pCO2 29.8 mmHg Low 32.0-46.0 [facility] Comment on above: Performed By: #### B G ####[address] [address] pH (Bld) 7.564 [pH] High 7.380-7.46 0 [facility] Comment on above: Performed By: #### B G ####[place] [address] Base excess Calc (Bld) [Moles/Vol] 4.1 mmol/L Normal [facility] Comment on above: Performed By: #### B G ####[place] [address] CO2 [Moles/Vol] 27.8 mmol/L Normal 22.0-30.0 [facility] Comment on above: Performed By: #### B G ####[place] [address] HCO3 (Bld) [Moles/Vol] 26.8 mmol/L Normal 21.0-29.0 [facility] Comment on above: Performed By: #### B G ####[place] [phone] Oxygen (Bld) [Partial pressure] 174.8 mm[Hg] High 74.0-108.0 [facility] Comment on above: Performed By: #### B G ####[place] [address] Oxygen saturation in Blood 99.5 % High 92.0-96.0 [facility] Comment on above: Performed By: #### B G ####[address] [address] pCO2 32.8 mmHg Normal 32.0-46.0 [facility] Comment on above: Performed By: #### B G ####[address] [address] pH (Bld) 7.530 [pH] High 7.380-7.46 0 [facility] Comment on above: Performed By: #### B G ####[address] [address] BMPon 10-11-2024 BUN/Creatinine Ratio 16.4 ratio Normal 10.0-22.[address] [facility] Comment on above: Performed By: #### A DIFF, ANEU, BMP, GFR, CBC ####[place] [address] Calcium [Mass/Vol] 8.3 mg/dL Low 8.7-10.4 [facility] Comment on above: Performed By: #### A DIFF, ANEU, BMP, GFR, CBC ####[place] [address] Chloride [Moles/Vol] 102 mmol/L Normal 98-[address] [facility] Comment on above: Performed By: #### A DIFF, ANEU, BMP, GFR, CBC ####[place] [address] CO2 [Moles/Vol] 28 mmol/L Normal 22-32 [facility] Comment on above: Performed By: #### A DIFF, ANEU, BMP, GFR, CBC ####[place] [address] Creatinine [Mass/Vol] 0.61 mg/dL Normal 0.60-1.[address] [facility] Comment on above: Result Comment: Test ing performed on [employer] analyzer using enzymatic creatinine methodology. Performed By: #### A DIFF, ANEU, BMP, GFR, CBC ####[place] [address] Electrolyte Balance 11.0 mEq/L Normal 4.0-15.0 [facility] Comment on above: Performed By: #### A DIFF, ANEU, BMP, GFR, CBC ####[address] [address] Glucose [Mass/Vol] 72 mg/dL Normal 70-110 [facility] Comment on above: Performed By: #### A DIFF, ANEU, BMP, GFR, CBC ####[place] [address] Potassium [Moles/Vol] 3.5 mmol/L Normal 3.5-5.[address] [facility] Comment on above: Performed By: #### A DIFF, ANEU, BMP, GFR, CBC ####[place] [address] Sodium [Moles/Vol] 141 mmol/L Normal 136-145 [facility] Comment on above: Performed By: #### A DIFF, ANEU, BMP, GFR, CBC ####[place] [address] Urea nitrogen [Mass/Vol] 10.0 mg/dL Normal 8.0-22.0 [facility] Comment on above: Performed By: #### A DIFF, ANEU, BMP, GFR, CBC ####[place] [address] CBCon 10-11-2024 Erythrocyte distribution width (RBC) [Ratio] 19.3 % High 11.5-15.5 [facility] Comment on above: Performed By: #### A DIFF, ANEU, BMP, GFR, CBC ####[place] [address] Hematocrit (Bld) [Volume fraction] 26.5 % Low 40.0-52.0 [facility] Comment on above: Performed By: #### A DIFF, ANEU, BMP, GFR, CBC ####[place] [address] Hgb 8.9 G/dL Low 13.0-17.5 [facility] Comment on above: Performed By: #### A DIFF, ANEU, BMP, GFR, CBC ####[place] [address] MCH (RBC) [Entitic mass] 28.7 pg Normal 27.0-33.0 [facility] Comment on above: Performed By: #### A DIFF, ANEU, BMP, GFR, CBC ####[place] [address] MCHC 33.6 G/dL Normal 32.0-36.0 [facility] Comment on above: Performed By: #### A DIFF, ANEU, BMP, GFR, CBC ####[place] [address] MCV (RBC) [Entitic vol] 85.4 fL Normal 81.0-100.0 [facility] Comment on above: Performed By: #### A DIFF, ANEU, BMP, GFR, CBC ####[place] [address] Platelet 163 10 3/mcL Normal 150-450 [facility] Comment on above: Performed By: #### A DIFF, ANEU, BMP, GFR, CBC ####[place] [address] Platelet mean volume (Bld) [Entitic vol] 8.7 fL Normal 6.4-10.5 [facility] Comment on above: Performed By: #### A DIFF, ANEU, BMP, GFR, CBC ####[place] [address] RBC 3.11 10 6/mcL Low 4.50-6.00 [facility] Comment on above: Performed By: #### A DIFF, ANEU, BMP, GFR, CBC ####[place] [address] WBC 8.6 10 3/mcL Normal 4.5-10.8 [facility] Comment on above: Performed By: #### A DIFF, ANEU, BMP, GFR, CBC ####[place] [address] Erythrocyte distribution width (RBC) [Ratio] 18.9 % High 11.5-15.5 [facility] Comment on above: Performed By: #### A MINH, CBC, GFR, CMP, ADIFF ####[place] [address] Hematocrit (Bld) [Volume fraction] 27.9 % Low 40.0-52.0 [facility] Comment on above: Performed By: #### A MINH, CBC, GFR, CMP, ADIFF ####[place] [address] Hgb 9.3 G/dL Low 13.0-17.5 [facility] Comment on above: Performed By: #### A MINH, CBC, GFR, CMP, ADIFF ####[place] [address] MCH (RBC) [Entitic mass] 28.3 pg Normal 27.0-33.0 [facility] Comment on above: Performed By: #### A MINH, CBC, GFR, CMP, ADIFF ####[place] [address] MCHC 33.4 G/dL Normal 32.0-36.0 [facility] Comment on above: Performed By: #### A MINH, CBC, GFR, CMP, ADIFF ####[place] [address] MCV (RBC) [Entitic vol] 84.7 fL Normal 81.0-100.0 [facility] Comment on above: Performed By: #### A MINH, CBC, GFR, CMP, ADIFF ####[place] [address] Platelet 163 10 3/mcL Normal 150-450 [facility] Comment on above: Performed By: #### A MINH, CBC, GFR, CMP, ADIFF ####[place] [address] Platelet mean volume (Bld) [Entitic vol] 8.7 fL Normal 6.4-10.5 [facility] Comment on above: Performed By: #### A MINH, CBC, GFR, CMP, ADIFF ####[place] [address] RBC 3.29 10 6/mcL Low 4.50-6.00 [facility] Comment on above: Performed By: #### A MINH, CBC, GFR, CMP, ADIFF ####[place] [address] WBC 9.1 10 3/mcL Normal 4.5-10.8 [facility] Comment on above: Performed By: #### A MINH, CBC, GFR, CMP, ADIFF ####[place] [address] CMPon 10-11-2024 Albumin Level 2.0 G/dL Low 3.2-4.8 [facility] Comment on above: Performed By: #### A MINH, CBC, GFR, CMP, ADIFF ####[place] [address] Albumin/Globulin [Mass ratio] 0.4 {ratio} Low 0.9-1.6 [facility] Comment on above: Performed By: #### A MINH, CBC, GFR, CMP, ADIFF ####[place] [id number] ALP [Catalytic activity/Vol] 80 U/L Normal 38-126 [facility] Comment on above: Performed By: #### A MINH, CBC, GFR, CMP, ADIFF ####[place] [address] ALT/SGPT <8 Low 12-55 [facility] Comment on above: Performed By: #### A MINH, CBC, GFR, CMP, ADIFF ####[place] [address] AST [Catalytic activity/Vol] 35 U/L High 8-34 [facility] Comment on above: Performed By: #### A MINH, CBC, GFR, CMP, ADIFF ####[place] [address] Bili Total 1.10 mg/dL Normal 0.20-1.20 [facility] Comment on above: Result Comment: Use of this assay is not recommended for patients undergoing treatment with eltrombopag due to the potential for falsely elevated results. Performed By: #### A MINH, CBC, GFR, CMP, ADIFF ####[place] [address] BUN/Creatinine Ratio 13.3 ratio Normal 10.0-22.[address] [facility] Comment on above: Performed By: #### A MINH, CBC, GFR, CMP, ADIFF ####[place] [id number] Calcium [Mass/Vol] 7.9 mg/dL Low 8.7-10.4 [facility] Comment on above: Performed By: #### A MINH, CBC, GFR, CMP, ADIFF ####[address] [address] Chloride [Moles/Vol] 103 mmol/L Normal 98-[address] [facility] Comment on above: Performed By: #### A MINH, CBC, GFR, CMP, ADIFF ####[address] [address] CO2 [Moles/Vol] 28 mmol/L Normal 22-32 [facility] Comment on above: Performed By: #### A MINH, CBC, GFR, CMP, ADIFF ####[address] [address] Creatinine [Mass/Vol] 0.60 mg/dL Normal 0.60-1.[address] [facility] Comment on above: Result Comment: Test ing performed on [employer] analyzer using enzymatic creatinine methodology. Performed By: #### A MINH, CBC, GFR, CMP, ADIFF ####[address] [address] Electrolyte Balance 9.0 mEq/L Normal 4.0-15.0 [facility] Comment on above: Performed By: #### A MINH, CBC, GFR, CMP, ADIFF ####[address] [address] Globulin 4.6 G/dL High 2.5-4.2 [facility] Comment on above: Performed By: #### A MINH, CBC, GFR, CMP, ADIFF ####[address] [address] Glucose [Mass/Vol] 78 mg/dL Normal 70-110 [facility] Comment on above: Performed By: #### A MINH, CBC, GFR, CMP, ADIFF ####[address] [address] Potassium [Moles/Vol] 3.8 mmol/L Normal 3.5-5.[address] [facility] Comment on above: Result Comment: Spec imen slightly hemolyzed. Performed By: #### A MINH, CBC, GFR, CMP, ADIFF ####[address] [address] Sodium [Moles/Vol] 140 mmol/L Normal 136-145 [facility] Comment on above: Performed By: #### A MINH, CBC, GFR, CMP, ADIFF ####[place] [address] Total Protein 6.6 G/dL Normal 5.7-8.2 [facility] Comment on above: Performed By: #### A MINH, CBC, GFR, CMP, ADIFF ####[place] [address] Urea nitrogen [Mass/Vol] 8.0 mg/dL Normal 8.0-22.0 [facility] Comment on above: Performed By: #### A MINH, CBC, GFR, CMP, ADIFF ####[place] [address] IR EMBOLIZATION ANY METHODon 10-11-2024 IR EMBOLIZATION ANY METHOD Normal [facility] Michi 10-11-2024 Potassium [Moles/Vol] 3.9 mmol/L Normal 3.5-5.[address] [facility] Comment on above: Performed By: #### K ####[place] [address] Potassium [Moles/Vol] 3.9 mmol/L Normal 3.5-5.[address] [facility] Comment on above: Performed By: #### K ####[place] [address] LABORATORYOrdered By: Chhaya Spicer on 10-11-2024 CO2 [Moles/Vol] 27.5 mmol/L Normal 22.0 - 30.0 mmol/L [facility] HCO3 (Bld) [Moles/Vol] 26.4 mmol/L Normal 21.0 - 29.0 mmol/L AH [facility] Oxygen (Bld) [Partial pressure] 140.7 mm[Hg] High 74.0 - 108.0 mm Hg AH [facility] pCO2 35.6 mm[Hg] Normal 32.0 - 46.0 mm Hg AH [facility] pH (Bld) 7.488 [pH] High 7.380 - 7.460 AH [facility] Sodium [Moles/Vol] 2.9 mmol/L Invalid Interpretation Code Main Rapid [facility] SS LABORATORYOrdered By: SYSTEM SYSTEM on 10-11-2024 Albumin BCP dye [Mass/Vol] 2.0 G/dL Low 3.2 - 4.8 G/dL AH ADM SS Albumin/Globulin [Mass ratio] 0.4 {ratio} Low 0.9 - 1.6 ratio AH ADM SS ALP [Catalytic activity/Vol] 80 U/L Normal 38 - 126 U/L ADM SS ALT No additional P-5'-P [Catalytic activity/Vol] U/L 1 Low 12 - 55 U/L AH ADM SS AST [Catalytic activity/Vol] 35 U/L High 8 - 34 U/L ADM SS Bilirubin [Mass/Vol] 1.10 mg/dL Normal 0.20 - 1.20 mg/dL ADM SS Comment on above: Interpretive Data: U se of this assay is not recommended for patients undergoing treatment with eltrombopag due to the potential for falsely elevated results. Globulin 4.6 G/dL High 2.5 - 4.2 G/dL ADM SS Protein [Mass/Vol] 6.6 G/dL Normal 5.7 - 8.2 G/dL ADM SS XR CHEST 1 VIEWon 10-11-2024 XR CHEST 1 VIEW Normal [facility] .Auto Diffon 10-10-2024 Basophil, Absolute 0.1 10 3/mcL Normal 0.0-0.[address] [facility] Comment on above: Performed By: #### C BC, MG, ANEU, ADIFF ####[place] [id number] [place] [address] Basophils/100 WBC (Bld) 0.9 % Normal 0.0-2.5 [facility] Comment on above: Performed By: #### C BC, MG, ANEU, ADIFF ####[facility] [place] [address] Eosinophil, Absolute 0.1 10 3/mcL Normal 0.0-0.7 [facility] Comment on above: Performed By: #### C BC, MG, ANEU, ADIFF ####[place] [id number] [place] [address] Eosinophils/100 WBC (Bld) 1.0 % Normal 0.0-6.0 [facility] Comment on above: Performed By: #### C BC, MG, ANEU, ADIFF ####[address] [address] Lymphocyte, Absolute 2.1 10 3/mcL Normal 0.9-4.3 [facility] Comment on above: Performed By: #### C BC, MG, ANEU, ADIFF ####[address] [address] Lymphocytes/100 WBC (Bld) 23.8 % Normal 20.0-40.0 [facility] Comment on above: Performed By: #### C BC, MG, ANEU, ADIFF ####[address] [address] Monocyte, Absolute 0.7 10 3/mcL Normal 0.1-1.[address] [facility] Comment on above: Performed By: #### C BC, MG, ANEU, ADIFF ####[address] [address] Monocytes/100 WBC (Bld) 8.6 % Normal 2.0-13.0 [facility] Comment on above: Performed By: #### C BC, MG, ANEU, ADIFF ####[address] [address] Neutrophils/100 WBC (Bld) 65.7 % Normal 50.0-75.0 [facility] Comment on above: Performed By: #### C BC, MG, ANEU, ADIFF ####[address] [address] .GFRon 10-10-2024 GFR/1.73 sq M.predicted among non-blacks MDRD (S/P/Bld) [Vol rate/Area] mL/min/{1.73_m2} Normal [facility] Comment on above: Result Comment: Stag es of Chronic Kidney Disease (CKD)Stage Description eGFR(ml/min/1.73 sq.m.)CKD 1 Normal kidney function or >=90 normal kindney function with possible kidney damage (ex. Proteinuria)CKD 2 Kidney damage with mild loss 60-89 of kidney functionCKD 3a Mild to moderate loss of kidney 45-59 functionCKD 3b Moderate to severe loss of 30-44 of kindey function CKD 4 Severe loss of kidney function 15-29CKD 5 Kidney failure <15Note: (go live 2024) the eGFR calculation was updated to the KD-EPI creatinine equation without a race factor to calculate theeGFR results. Performed By: #### B MP, GFR ####[place] [address] .NEUABSon 10-10-2024 Neutrophil, Absolute 5.7 10 3/mcL Normal 2.3-8.1 [facility] Comment on above: Performed By: #### C BC, MG, ANEU, ADIFF ####[place] [address] BGon 10-10-2024 Base excess Calc (Bld) [Moles/Vol] -7.0000 mmol/L Normal [facility] Comment on above: Performed By: #### B G ####[place] [address] CO2 [Moles/Vol] 22.3 mmol/L Normal 22.0-30.0 [facility] Comment on above: Performed By: #### B G ####[place] [address] HCO3 (Bld) [Moles/Vol] 20.7 mmol/L Low 21.0-29.0 [facility] Comment on above: Performed By: #### B G ####[place] [address] Oxygen (Bld) [Partial pressure] 134.3 mm[Hg] High 74.0-108.0 [facility] Comment on above: Performed By: #### B G ####[place] [address] Oxygen saturation in Blood 98.4 % High 92.0-96.0 [facility] Comment on above: Performed By: #### B G ####[place] [place] [address] pCO2 51.5 mmHg High 32.0-46.0 [facility] Comment on above: Performed By: #### B G ####[address] [address] pH (Bld) 7.222 [pH] Low 7.380-7.46 0 [facility] Comment on above: Performed By: #### B G ####[address] [address] Base excess Calc (Bld) [Moles/Vol] -1.3000 mmol/L Normal [facility] Comment on above: Performed By: #### B G ####[address] [address] CO2 [Moles/Vol] 25.3 mmol/L Normal 22.0-30.0 [facility] Comment on above: Performed By: #### B G ####[place] [id number] HCO3 (Bld) [Moles/Vol] 24.0 mmol/L Normal 21.0-29.0 [facility] Comment on above: Performed By: #### B G ####[address] [address] Oxygen (Bld) [Partial pressure] 142.1 mm[Hg] High 74.0-108.0 [facility] Comment on above: Performed By: #### B G ####[place] [id number] Oxygen saturation in Blood 99.0 % High 92.0-96.0 [facility] Comment on above: Performed By: #### B G ####[address] [address] pCO2 42.3 mmHg Normal 32.0-46.0 [facility] Comment on above: Performed By: #### B G ####[address] [address] pH (Bld) 7.371 [pH] Low 7.380-7.46 0 [facility] Comment on above: Performed By: #### B G ####[address] [address] Base excess Calc (Bld) [Moles/Vol] 2.3 mmol/L Normal [facility] Comment on above: Performed By: #### B G ####[address] [address] CO2 [Moles/Vol] 27.5 mmol/L Normal 22.0-30.0 [facility] Comment on above: Performed By: #### B G ####[address] [address] HCO3 (Bld) [Moles/Vol] 26.3 mmol/L Normal 21.0-29.0 [facility] Comment on above: Performed By: #### B G ####[place] [phone] Oxygen (Bld) [Partial pressure] 161.9 mm[Hg] High 74.0-108.0 [facility] Comment on above: Performed By: #### B G ####[place] [address] Oxygen saturation in Blood 99.5 % High 92.0-96.0 [facility] Comment on above: Performed By: #### B G ####[place] [id number] pCO2 38.5 mmHg Normal 32.0-46.0 [facility] Comment on above: Performed By: #### B G ####[address] [address] pH (Bld) 7.453 [pH] Normal 7.380-7.46 0 [facility] Comment on above: Performed By: #### B G ####[address] [address] Base excess Calc (Bld) [Moles/Vol] 1.1 mmol/L Normal [facility] Comment on above: Performed By: #### B G ####[address] [address] CO2 [Moles/Vol] 26.1 mmol/L Normal 22.0-30.0 [facility] Comment on above: Performed By: #### B G ####[address] [address] HCO3 (Bld) [Moles/Vol] 25.0 mmol/L Normal 21.0-29.0 [facility] Comment on above: Performed By: #### B G ####[place] [address] Oxygen (Bld) [Partial pressure] 129.4 mm[Hg] High 74.0-108.0 [facility] Comment on above: Performed By: #### B G ####[place] [address] Oxygen saturation in Blood 99.1 % High 92.0-96.0 [facility] Comment on above: Performed By: #### B G ####[place] [address] pCO2 36.0 mmHg Normal 32.0-46.0 [facility] Comment on above: Performed By: #### B G ####[place] [address] pH (Bld) 7.459 [pH] Normal 7.380-7.46 0 [facility] Comment on above: Performed By: #### B G ####[place] [address] BMPon 10-10-2024 BUN/Creatinine Ratio 13.8 ratio Normal 10.0-22.[address] [facility] Comment on above: Performed By: #### B MP, GFR ####[place] [address] Calcium [Mass/Vol] 8.2 mg/dL Low 8.7-10.4 [facility] Comment on above: Performed By: #### B MP, GFR ####[place] [phone] Chloride [Moles/Vol] 106 mmol/L Normal 98-[address] [facility] Comment on above: Performed By: #### B MP, GFR ####[place] [phone] CO2 [Moles/Vol] 25 mmol/L Normal 22-32 [facility] Comment on above: Performed By: #### B MP, GFR ####[place] [address] Creatinine [Mass/Vol] 0.65 mg/dL Normal 0.60-1.[address] [facility] Comment on above: Result Comment: Test ing performed on [employer] analyzer using enzymatic creatinine methodology. Performed By: #### B MP, GFR ####[place] [address] Electrolyte Balance 10.0 mEq/L Normal 4.0-15.0 [facility] Comment on above: Performed By: #### B MP, GFR ####[place] [address] Glucose [Mass/Vol] 89 mg/dL Normal 70-110 [facility] Comment on above: Performed By: #### B MP, GFR ####[place] [address] Potassium [Moles/Vol] 4.0 mmol/L Normal 3.5-5.[address] [facility] Comment on above: Performed By: #### B MP, GFR ####[place] [address] Sodium [Moles/Vol] 141 mmol/L Normal 136-145 [facility] Comment on above: Performed By: #### B MP, GFR ####[place] [address] Urea nitrogen [Mass/Vol] 9.0 mg/dL Normal 8.0-22.0 [facility] Comment on above: Performed By: #### B MP, GFR ####[place] [address] CBCon 10-10-2024 Erythrocyte distribution width (RBC) [Ratio] 22.5 % High 11.5-15.5 [facility] Comment on above: Performed By: #### C BC, MG, ANEU, ADIFF ####[place] [address] Hematocrit (Bld) [Volume fraction] 22.0 % Low 40.0-52.0 [facility] Comment on above: Performed By: #### C BC, MG, ANEU, ADIFF ####[address] [address] Hgb 7.4 G/dL Low 13.0-17.5 [facility] Comment on above: Performed By: #### C BC, MG, ANEU, ADIFF ####[address] [address] MCH (RBC) [Entitic mass] 29.0 pg Normal 27.0-33.0 [facility] Comment on above: Performed By: #### C BC, MG, ANEU, ADIFF ####[address] [address] MCHC 33.6 G/dL Normal 32.0-36.0 [facility] Comment on above: Performed By: #### C BC, MG, ANEU, ADIFF ####[place] [address] MCV (RBC) [Entitic vol] 86.3 fL Normal 81.0-100.0 [facility] Comment on above: Performed By: #### C BC, MG, ANEU, ADIFF ####[place] [address] Platelet 246 10 3/mcL Normal 150-450 [facility] Comment on above: Performed By: #### C BC, MG, ANEU, ADIFF ####[place] [address] Platelet mean volume (Bld) [Entitic vol] 8.5 fL Normal 6.4-10.5 [facility] Comment on above: Performed By: #### C BC, MG, ANEU, ADIFF ####[place] [id number] RBC 2.55 10 6/mcL Low 4.50-6.00 [facility] Comment on above: Performed By: #### C BC, MG, ANEU, ADIFF ####[address] [address] WBC 8.7 10 3/mcL Normal 4.5-10.8 [facility] Comment on above: Performed By: #### C BC, MG, ANEU, ADIFF ####[place] [address] HHon 10-10-2024 Hematocrit (Bld) [Volume fraction] 30.7 % Low 40.0-52.0 [facility] Comment on above: Performed By: #### H H ####[place] [address] Hgb 9.8 G/dL Low 13.0-17.5 [facility] Comment on above: Performed By: #### H H ####[place] [address] Hematocrit (Bld) [Volume fraction] 24.3 % Low 40.0-52.0 [facility] Comment on above: Performed By: #### H H ####[place] [address] Hgb 7.9 G/dL Low 13.0-17.5 [facility] Comment on above: Performed By: #### H H ####[place] [address] Michi 10-10-2024 Potassium [Moles/Vol] 3.7 mmol/L Normal 3.5-5.[address] [facility] Comment on above: Performed By: #### K , MG ####[place] [address] LABORATORYOrdered By: Chyna Browne on 10-10-2024 RBC Product Ready RBC Ready for Pickup (10/10/24 9:04 PM) Normal AH BB Manual SS LABORATORYOrdered By: Anup Rocha on 10-10-2024 RBC Product Ready RBC Ready for Pickup (10/10/24 2:06 PM) Normal AH BB Manual SS LABORATORYOrdered By: Etta Manley on 10-10-2024 Glucose [Mass/Vol] 104 mg/dL Normal 70 - 110 mg/dL [facility] Glucose [Mass/Vol] 80 mg/dL Normal 70 - 110 mg/dL [facility] Glucose [Mass/Vol] 76 mg/dL Normal 70 - 110 mg/dL [facility] LABORATORYOrdered By: SYSTEM SYSTEM on 10-10-2024 Magnesium [Mass/Vol] 2.0 mg/dL Normal 1.6 - 2 .4 mg/dL AH ADM SS MGon 10-10-2024 Magnesium [Mass/Vol] 2.0 mg/dL Normal 1.6-2.[address] [facility] Comment on above: Performed By: #### C BC, MG, ANEU, ADIFF ####[place] [address] Magnesium [Mass/Vol] 1.5 mg/dL Low 1.6-2.[address] [facility] Comment on above: Performed By: #### K , MG ####[place] [address] RBC (Product)on 10-10-2024 RBC Product Ready RBC Ready for [facility] Comment on above: Performed By: #### R BCP ####[place] [address] RBC Product Ready RBC Ready for [facility] MAIN Comment on above: Performed By: #### R BCP ####[place] [address] RBC Product Ready RBC Ready for [facility] MAIN Comment on above: Performed By: #### R BCP ####[place] [address] XR CHEST 1 VIEWon 10-10-2024 XR CHEST 1 VIEW Normal [facility] XR CHEST 1 VIEW Normal [facility] XR CHEST 1 VIEW Normal [facility] XR ENTERIC TUBE PLACEMENTon 10-10-2024 XR ENTERIC TUBE PLACEMENT Normal [facility] .Auto Diffon 10-09-2024 Basophil, Absolute 0.1 10 3/mcL Normal 0.0-0.[address] [facility] Comment on above: Performed By: #### C MP, ABSGEL, CBC, APTT, ANEU, GFR, ADIFF, PRO, ABOGEL, FIB ####[place] [address] Basophils/100 WBC (Bld) 0.6 % Normal 0.0-2.5 [facility] Comment on above: Performed By: #### C MP, ABSGEL, CBC, APTT, ANEU, GFR, ADIFF, PRO, ABOGEL, FIB ####[address] [address] Eosinophil, Absolute 0.1 10 3/mcL Normal 0.0-0.7 [facility] Comment on above: Performed By: #### C MP, ABSGEL, CBC, APTT, ANEU, GFR, ADIFF, PRO, ABOGEL, FIB ####[address] [address] Eosinophils/100 WBC (Bld) 0.6 % Normal 0.0-6.0 [facility] Comment on above: Performed By: #### C MP, ABSGEL, CBC, APTT, ANEU, GFR, ADIFF, PRO, ABOGEL, FIB ####[address] [address] Lymphocyte, Absolute 2.5 10 3/mcL Normal 0.9-4.3 [facility] Comment on above: Performed By: #### C MP, ABSGEL, CBC, APTT, ANEU, GFR, ADIFF, PRO, ABOGEL, FIB ####[address] [address] Lymphocytes/100 WBC (Bld) 20.5 % Normal 20.0-40.0 [facility] Comment on above: Performed By: #### C MP, ABSGEL, CBC, APTT, ANEU, GFR, ADIFF, PRO, ABOGEL, FIB ####[address] [address] Monocyte, Absolute 0.9 10 3/mcL Normal 0.1-1.[address] [facility] Comment on above: Performed By: #### C MP, ABSGEL, CBC, APTT, ANEU, GFR, ADIFF, PRO, ABOGEL, FIB ####[address] [address] Monocytes/100 WBC (Bld) 7.6 % Normal 2.0-13.0 [facility] Comment on above: Performed By: #### C MP, ABSGEL, CBC, APTT, ANEU, GFR, ADIFF, PRO, ABOGEL, FIB ####[address] [address] Neutrophils/100 WBC (Bld) 70.7 % Normal 50.0-75.0 [facility] Comment on above: Performed By: #### C MP, ABSGEL, CBC, APTT, ANEU, GFR, ADIFF, PRO, ABOGEL, FIB ####[address] [address] Basophil, Absolute 0.0 10 3/mcL Normal 0.0-0.[address] [facility] Comment on above: Performed By: #### A DIFF, CBC, PRO, ANEU, BMP, GFR ####[address] [address] Basophils/100 WBC (Bld) 0.6 % Normal 0.0-2.5 [facility] Comment on above: Performed By: #### A DIFF, CBC, PRO, ANEU, BMP, GFR ####[address] [address] Eosinophil, Absolute 0.0 10 3/mcL Normal 0.0-0.7 [facility] Comment on above: Performed By: #### A DIFF, CBC, PRO, ANEU, BMP, GFR ####[address] [address] Eosinophils/100 WBC (Bld) 0.5 % Normal 0.0-6.0 [facility] Comment on above: Performed By: #### A DIFF, CBC, PRO, ANEU, BMP, GFR ####[address] [address] Lymphocyte, Absolute 1.2 10 3/mcL Normal 0.9-4.3 [facility] Comment on above: Performed By: #### A DIFF, CBC, PRO, ANEU, BMP, GFR ####[address] [address] Lymphocytes/100 WBC (Bld) 16.7 % Low 20.0-40.0 [facility] Comment on above: Performed By: #### A DIFF, CBC, PRO, ANEU, BMP, GFR ####[address] [address] Monocyte, Absolute 0.5 10 3/mcL Normal 0.1-1.[address] [facility] Comment on above: Performed By: #### A DIFF, CBC, PRO, ANEU, BMP, GFR ####[address] [address] Monocytes/100 WBC (Bld) 7.4 % Normal 2.0-13.0 [facility] Comment on above: Performed By: #### A DIFF, CBC, PRO, ANEU, BMP, GFR ####[address] [address] Neutrophils/100 WBC (Bld) 74.8 % Normal 50.0-75.0 [facility] Comment on above: Performed By: #### A DIFF, CBC, PRO, ANEU, BMP, GFR ####[address] [address] .GFRon 10-09-2024 GFR/1.73 sq M.predicted among non-blacks MDRD (S/P/Bld) [Vol rate/Area] mL/min/{1.73_m2} [facility] MAIN Comment on above: Result Comment: Stag es of Chronic Kidney Disease (CKD)Stage Description eGFR(ml/min/1.73 sq.m.)CKD 1 Normal kidney function or >=90 normal kindney function with possible kidney damage (ex. Proteinuria)CKD 2 Kidney damage with mild loss 60-89 of kidney functionCKD 3a Mild to moderate loss of kidney 45-59 functionCKD 3b Moderate to severe loss of 30-44 of kindey function CKD 4 Severe loss of kidney function 15-29CKD 5 Kidney failure <15Note: (go live 2024) the eGFR calculation was updated to the KD-EPI creatinine equation without a race factor to calculate theeGFR results. Performed By: #### C MP, ABSGEL, CBC, APTT, ANEU, GFR, ADIFF, PRO, ABOGEL, FIB ####[address] [address] GFR/1.73 sq M.predicted among non-blacks MDRD (S/P/Bld) [Vol rate/Area] mL/min/{1.73_m2} [facility] MAIN Comment on above: Result Comment: Stag es of Chronic Kidney Disease (CKD)Stage Description eGFR(ml/min/1.73 sq.m.)CKD 1 Normal kidney function or >=90 normal kindney function with possible kidney damage (ex. Proteinuria)CKD 2 Kidney damage with mild loss 60-89 of kidney functionCKD 3a Mild to moderate loss of kidney 45-59 functionCKD 3b Moderate to severe loss of 30-44 of kindey function CKD 4 Severe loss of kidney function 15-29CKD 5 Kidney failure <15Note: (go live 2024) the eGFR calculation was updated to the KD-EPI creatinine equation without a race factor to calculate theeGFR results. Performed By: #### A DIFF, CBC, PRO, ANEU, BMP, GFR ####[place] [address] .NEUABSon 10-09-2024 Neutrophil, Absolute 8.6 10 3/mcL High 2.3-8.1 [facility]IN Comment on above: Performed By: #### C MP, ABSGEL, CBC, APTT, ANEU, GFR, ADIFF, PRO, ABOGEL, FIB ####[place] [address] Neutrophil, Absolute 5.5 10 3/mcL Normal 2.3-8.1 [facility] Comment on above: Performed By: #### A DIFF, CBC, PRO, ANEU, BMP, GFR ####[place] [address] ABO/Rh (Gel)on 10-09-2024 ABO/Rh Interp Positive Invalid Interpretation Code [facility] Comment on above: Performed By: #### C MP, ABSGEL, CBC, APTT, ANEU, GFR, ADIFF, PRO, ABOGEL, FIB ####[place] [address] ABS (Gel)on 10-09-2024 ABSC Interp (Gel) Negative Normal [facility] Comment on above: Performed By: #### C MP, ABSGEL, CBC, APTT, ANEU, GFR, ADIFF, PRO, ABOGEL, FIB ####[place] [address] APTTon 10-09-2024 aPTT Coag (Bld) [Time] 38.9 s High 25.0-35.0 [facility] MAIN Comment on above: Result Comment: For Heparin anticoagulation therapy, the recommendedtherapeutic range is: 54-77 seconds (APTT Correlationwith Anti-Xa therapeutic range of 0.3-0.7 units/ml).PLEASE REFERENCE THE PHARMACY PROTOCOL FOR DOSING. Performed By: #### C MP, ABSGEL, CBC, APTT, ANEU, GFR, ADIFF, PRO, ABOGEL, FIB ####[address] [address] BGon 10-09-2024 Base excess Calc (Bld) [Moles/Vol] 0.5 mmol/L Normal [facility] Comment on above: Performed By: #### B G ####[place] [address] CO2 [Moles/Vol] 24.7 mmol/L Normal 22.0-30.0 [facility] Comment on above: Performed By: #### B G ####[place] [address] HCO3 (Bld) [Moles/Vol] 23.7 mmol/L Normal 21.0-29.0 [facility] Comment on above: Performed By: #### B G ####[place] [address] Oxygen (Bld) [Partial pressure] 176.5 mm[Hg] High 74.0-108.0 [facility] Comment on above: Performed By: #### B G ####[place] [id number] Oxygen saturation in Blood 99.6 % High 92.0-96.0 [facility] Comment on above: Performed By: #### B G ####[place] [id number] pCO2 31.8 mmHg Low 32.0-46.0 [facility] Comment on above: Performed By: #### B G ####[place] [phone] pH (Bld) 7.490 [pH] High 7.380-7.46 0 [facility] Comment on above: Performed By: #### B G ####[address] [address] Base excess Calc (Bld) [Moles/Vol] 0.4 mmol/L Normal [facility] Comment on above: Performed By: #### B G ####[address] [address] CO2 [Moles/Vol] 26.0 mmol/L Normal 22.0-30.0 [facility] Comment on above: Performed By: #### B G ####[place] [id number] HCO3 (Bld) [Moles/Vol] 24.8 mmol/L Normal 21.0-29.0 [facility] Comment on above: Performed By: #### B G ####[place] [phone] Oxygen (Bld) [Partial pressure] 264.5 mm[Hg] High 74.0-108.0 [facility] Comment on above: Performed By: #### B G ####[place] [address] Oxygen saturation in Blood 100.0 % High 92.0-96.0 [facility] Comment on above: Performed By: #### B G ####[place] [address] pCO2 39.0 mmHg Normal 32.0-46.0 [facility] Comment on above: Performed By: #### B G ####[address] [address] pH (Bld) 7.421 [pH] Normal 7.380-7.46 0 [facility] Comment on above: Performed By: #### B G ####[address] [address] Base excess Calc (Bld) [Moles/Vol] -1.8000 mmol/L Normal [facility] Comment on above: Performed By: #### B G ####[place] [id number] CO2 [Moles/Vol] 26.1 mmol/L Normal 22.0-30.0 [facility] Comment on above: Performed By: #### B G ####[place] [address] HCO3 (Bld) [Moles/Vol] 24.5 mmol/L Normal 21.0-29.0 [facility] Comment on above: Performed By: #### B G ####[place] [address] Oxygen (Bld) [Partial pressure] 261.8 mm[Hg] High 74.0-108.0 [facility] Comment on above: Performed By: #### B G ####[place] [address] Oxygen saturation in Blood 99.8 % High 92.0-96.0 [facility] Comment on above: Performed By: #### B G ####[place] [address] pCO2 49.3 mmHg High 32.0-46.0 [facility] Comment on above: Performed By: #### B G ####[place] [address] pH (Bld) 7.315 [pH] Low 7.380-7.46 0 [facility] Comment on above: Performed By: #### B G ####[place] [address] BMPon 10-09-2024 BUN/Creatinine Ratio 16.9 ratio Normal 10.0-22.[address] [facility] MAIN Comment on above: Performed By: #### A DIFF, CBC, PRO, ANEU, BMP, GFR ####[place] [address] Calcium [Mass/Vol] 8.3 mg/dL Low 8.7-10.4 [facility] Comment on above: Performed By: #### A DIFF, CBC, PRO, ANEU, BMP, GFR ####[place] [address] Chloride [Moles/Vol] 101 mmol/L Normal 98-[address] [facility] MA[facility] Comment on above: Performed By: #### A DIFF, CBC, PRO, ANEU, BMP, GFR ####[address] [address] CO2 [Moles/Vol] 29 mmol/L Normal 22-32 [facility] Comment on above: Performed By: #### A DIFF, CBC, PRO, ANEU, BMP, GFR ####[address] [address] Creatinine [Mass/Vol] 0.71 mg/dL Normal 0.60-1.[address] [facility] MAIN Comment on above: Result Comment: Test ing performed on [employer] analyzer using enzymatic creatinine methodology. Performed By: #### A DIFF, CBC, PRO, ANEU, BMP, GFR ####[address] [address] Electrolyte Balance 7.0 mEq/L Normal 4.0-15.0 [facility] MAIN Comment on above: Performed By: #### A DIFF, CBC, PRO, ANEU, BMP, GFR ####[address] [address] Glucose [Mass/Vol] 124 mg/dL High 70-110 [facility] Comment on above: Performed By: #### A DIFF, CBC, PRO, ANEU, BMP, GFR ####[address] [address] Potassium [Moles/Vol] 4.5 mmol/L Normal 3.5-5.[address] [facility] Comment on above: Performed By: #### A DIFF, CBC, PRO, ANEU, BMP, GFR ####[address] [address] Sodium [Moles/Vol] 137 mmol/L Normal 136-145 [facility] Comment on above: Performed By: #### A DIFF, CBC, PRO, ANEU, BMP, GFR ####[address] [address] Urea nitrogen [Mass/Vol] 12.0 mg/dL Normal 8.0-22.0 [facility] Comment on above: Performed By: #### A DIFF, CBC, PRO, ANEU, BMP, GFR ####[address] [address] CBCon 10-09-2024 Erythrocyte distribution width (RBC) [Ratio] 23.2 % High 11.5-15.5 [facility] Comment on above: Performed By: #### C MP, ABSGEL, CBC, APTT, ANEU, GFR, ADIFF, PRO, ABOGEL, FIB ####[place] [address] Hematocrit (Bld) [Volume fraction] 26.8 % Low 40.0-52.0 [facility] Comment on above: Performed By: #### C MP, ABSGEL, CBC, APTT, ANEU, GFR, ADIFF, PRO, ABOGEL, FIB ####[place] [address] Hgb 8.9 G/dL Low 13.0-17.5 [facility] Comment on above: Performed By: #### C MP, ABSGEL, CBC, APTT, ANEU, GFR, ADIFF, PRO, ABOGEL, FIB ####[place] [address] MCH (RBC) [Entitic mass] 28.6 pg Normal 27.0-33.0 [facility] Comment on above: Performed By: #### C MP, ABSGEL, CBC, APTT, ANEU, GFR, ADIFF, PRO, ABOGEL, FIB ####[place] [address] MCHC 33.1 G/dL Normal 32.0-36.0 [facility] Comment on above: Performed By: #### C MP, ABSGEL, CBC, APTT, ANEU, GFR, ADIFF, PRO, ABOGEL, FIB ####[place] [address] MCV (RBC) [Entitic vol] 86.5 fL Normal 81.0-100.0 [facility] Comment on above: Performed By: #### C MP, ABSGEL, CBC, APTT, ANEU, GFR, ADIFF, PRO, ABOGEL, FIB ####[place] [address] Platelet 308 10 3/mcL Normal 150-450 [facility] Comment on above: Performed By: #### C MP, ABSGEL, CBC, APTT, ANEU, GFR, ADIFF, PRO, ABOGEL, FIB ####[place] [address] Platelet mean volume (Bld) [Entitic vol] 8.8 fL Normal 6.4-10.5 [facility] Comment on above: Performed By: #### C MP, ABSGEL, CBC, APTT, ANEU, GFR, ADIFF, PRO, ABOGEL, FIB ####[place] [address] RBC 3.10 10 6/mcL Low 4.50-6.00 [facility] Comment on above: Performed By: #### C MP, ABSGEL, CBC, APTT, ANEU, GFR, ADIFF, PRO, ABOGEL, FIB ####[place] [address] WBC 12.1 10 3/mcL High 4.5-10.8 [facility] Comment on above: Performed By: #### C MP, ABSGEL, CBC, APTT, ANEU, GFR, ADIFF, PRO, ABOGEL, FIB ####[place] [address] Erythrocyte distribution width (RBC) [Ratio] 23.6 % High 11.5-15.5 [facility] Comment on above: Performed By: #### A DIFF, CBC, PRO, ANEU, BMP, GFR ####[place] [address] Hematocrit (Bld) [Volume fraction] 24.6 % Low 40.0-52.0 [facility] Comment on above: Performed By: #### A DIFF, CBC, PRO, ANEU, BMP, GFR ####[place] [address] Hgb 8.2 G/dL Low 13.0-17.5 [facility] Comment on above: Performed By: #### A DIFF, CBC, PRO, ANEU, BMP, GFR ####[address] [place], [place] [address] MCH (RBC) [Entitic mass] 28.8 pg Normal 27.0-33.0 [facility] Comment on above: Performed By: #### A DIFF, CBC, PRO, ANEU, BMP, GFR ####[address] [address] MCHC 33.2 G/dL Normal 32.0-36.0 [facility] Comment on above: Performed By: #### A DIFF, CBC, PRO, ANEU, BMP, GFR ####[place] [address] MCV (RBC) [Entitic vol] 86.9 fL Normal 81.0-100.0 [facility] Comment on above: Performed By: #### A DIFF, CBC, PRO, ANEU, BMP, GFR ####[place] [address] Platelet 195 10 3/mcL Normal 150-450 [facility] Comment on above: Performed By: #### A DIFF, CBC, PRO, ANEU, BMP, GFR ####[place] [address] Platelet mean volume (Bld) [Entitic vol] 8.6 fL Normal 6.4-10.5 [facility] Comment on above: Performed By: #### A DIFF, CBC, PRO, ANEU, BMP, GFR ####[place] [address] RBC 2.83 10 6/mcL Low 4.50-6.00 [facility] Comment on above: Performed By: #### A DIFF, CBC, PRO, ANEU, BMP, GFR ####[place] [id number] WBC 7.4 10 3/mcL Normal 4.5-10.8 [facility] Comment on above: Performed By: #### A DIFF, CBC, PRO, ANEU, BMP, GFR ####[place] [address] CMEDon 10-09-2024 CMED Normal [facility] CMPon 10-09-2024 Albumin Level 2.1 G/dL Low 3.2-4.8 [facility] Comment on above: Performed By: #### C MP, ABSGEL, CBC, APTT, ANEU, GFR, ADIFF, PRO, ABOGEL, FIB ####[place] [address] Albumin/Globulin [Mass ratio] 0.4 {ratio} Low 0.9-1.6 [facility] Comment on above: Performed By: #### C MP, ABSGEL, CBC, APTT, ANEU, GFR, ADIFF, PRO, ABOGEL, FIB ####[place] [address] ALP [Catalytic activity/Vol] 101 U/L Normal 38-126 [facility] Comment on above: Performed By: #### C MP, ABSGEL, CBC, APTT, ANEU, GFR, ADIFF, PRO, ABOGEL, FIB ####[place] [address] ALT/SGPT <7 Low 12-55 [facility] Comment on above: Performed By: #### C MP, ABSGEL, CBC, APTT, ANEU, GFR, ADIFF, PRO, ABOGEL, FIB ####[place] [id number] AST [Catalytic activity/Vol] 26 U/L Normal 8-34 [facility] Comment on above: Performed By: #### C MP, ABSGEL, CBC, APTT, ANEU, GFR, ADIFF, PRO, ABOGEL, FIB ####[place] [id number] Bili Total 1.30 mg/dL High 0.20-1.20 [facility] Comment on above: Result Comment: Use of this assay is not recommended for patients undergoing treatment with eltrombopag due to the potential for falsely elevated results. Performed By: #### C MP, ABSGEL, CBC, APTT, ANEU, GFR, ADIFF, PRO, ABOGEL, FIB ####[place] [address] BUN/Creatinine Ratio 13.5 ratio Normal 10.0-22.[address] [facility] Comment on above: Performed By: #### C MP, ABSGEL, CBC, APTT, ANEU, GFR, ADIFF, PRO, ABOGEL, FIB ####[address] [address] Calcium [Mass/Vol] 8.3 mg/dL Low 8.7-10.4 [facility] Comment on above: Performed By: #### C MP, ABSGEL, CBC, APTT, ANEU, GFR, ADIFF, PRO, ABOGEL, FIB ####[place] [phone] Chloride [Moles/Vol] 98 mmol/L Normal 98-[address] [facility] Comment on above: Performed By: #### C MP, ABSGEL, CBC, APTT, ANEU, GFR, ADIFF, PRO, ABOGEL, FIB ####[place] [phone] CO2 [Moles/Vol] 25 mmol/L Normal 22-32 [facility] Comment on above: Performed By: #### C MP, ABSGEL, CBC, APTT, ANEU, GFR, ADIFF, PRO, ABOGEL, FIB ####[place] [phone] Creatinine [Mass/Vol] 0.74 mg/dL Normal 0.60-1.[address] [facility] Comment on above: Result Comment: Test ing performed on [employer] analyzer using enzymatic creatinine methodology. Performed By: #### C MP, ABSGEL, CBC, APTT, ANEU, GFR, ADIFF, PRO, ABOGEL, FIB ####[place] [phone] Electrolyte Balance 12.0 mEq/L Normal 4.0-15.0 [facility] Comment on above: Performed By: #### C MP, ABSGEL, CBC, APTT, ANEU, GFR, ADIFF, PRO, ABOGEL, FIB ####[place] [phone] Globulin 5.7 G/dL High 2.5-4.2 [facility] Comment on above: Performed By: #### C MP, ABSGEL, CBC, APTT, ANEU, GFR, ADIFF, PRO, ABOGEL, FIB ####[place] [phone] Glucose [Mass/Vol] 172 mg/dL High 70-110 [facility] Comment on above: Performed By: #### C MP, ABSGEL, CBC, APTT, ANEU, GFR, ADIFF, PRO, ABOGEL, FIB ####[place] [address] Potassium [Moles/Vol] 4.8 mmol/L Normal 3.5-5.[address] [facility] Comment on above: Performed By: #### C MP, ABSGEL, CBC, APTT, ANEU, GFR, ADIFF, PRO, ABOGEL, FIB ####[place] [address] Sodium [Moles/Vol] 135 mmol/L Low 136-145 [facility] Comment on above: Performed By: #### C MP, ABSGEL, CBC, APTT, ANEU, GFR, ADIFF, PRO, ABOGEL, FIB ####[place] [address] Total Protein 7.8 G/dL Normal 5.7-8.2 [facility] Comment on above: Performed By: #### C MP, ABSGEL, CBC, APTT, ANEU, GFR, ADIFF, PRO, ABOGEL, FIB ####[place] [address] Urea nitrogen [Mass/Vol] 10.0 mg/dL Normal 8.0-22.0 [facility] Comment on above: Performed By: #### C MP, ABSGEL, CBC, APTT, ANEU, GFR, ADIFF, PRO, ABOGEL, FIB ####[address] [address] [address] ANGIOGRAPHY CHEST W/CONTR Ladi 10-09-2024 CT ANGIOGRAPHY CHEST W/CONTRAST Normal [facility] CTISSon 10-09-2024 CTISS Normal [facility] DRUGSon 10-09-2024 Acetaminophen [Mass/Vol] ug/mL Low 10.0-20.0 [facility] Comment on above: Performed By: #### D RUGS ####[place] [address] Ethanol Level <10.0 Normal [facility] Comment on above: Performed By: #### Coby RUGS ####[place] [address] Salicylate Lvl (ds) <3.0 Low 10.0-25.0 [facility] Comment on above: Performed By: #### Coby RUGS ####[place] [address] Serum Drugs screened: See Below Normal [facility] Comment on above: Result Comment: This drug screen is a presumptive screening only. No confirmation will be performed unless requested.Drugs included in the serum drug screen are: ThresholdEthanol 10.0 mg/dLSalicylate 2.0 mg/dlAcetaminophen 2.0 mcg/mLTesting has been performed FOR MEDICAL PURPOSES ONLY. Performed By: #### Coby WALLISS ####[place] [address] DRUGUon 10-09-2024 Amphetamine (u) Negative Normal Negative [facility] Comment on above: Performed By: #### Coby RUGU ####[place] [address] Barbiturate (u) Negative Normal [facility] Comment on above: Performed By: #### Coby RUGU ####[place] [address] Benzodiazepine (u) Negative Normal Negative [facility] Comment on above: Performed By: #### Coby RUGU ####[place] [address] Cannabinoid (u) Negative Normal Negative [facility] Comment on above: Performed By: #### Coby RUGU ####[place] [address] Cocaine Ql (U) Negative Normal Negative [facility] Comment on above: Performed By: #### Coby RUGU ####[place] [address] Fentanyl (u) Negative Normal [facility] Comment on above: Result Comment: Test ing has been performed FOR MEDICAL PURPOSES ONLY. Performed By: #### Coby RUGU ####[place] [address] Methadone Ql (U) Negative Normal Negative [facility] Comment on above: Performed By: #### D RUGU ####[address] [address] Opiate (u) Negative Normal Negative [facility] Comment on above: Performed By: #### D RUGU ####[address] [address] Oxycodone (u) Positive Abnormal Negative [facility] Comment on above: Result Comment: Test ing has been performed FOR MEDICAL PURPOSES ONLY. Performed By: #### D RUGU ####[place] [address] PCP (u) Negative Normal Negative [facility] Comment on above: Performed By: #### D RUGU ####[place] [address] Propoxyphene (u) Negative Normal Negative [facility] Comment on above: Performed By: #### Coby RUGU ####[place] [address] U pH Drug Scrn 7.0 Normal 5.0-8.0 [facility] Comment on above: Performed By: #### Coby RUGU ####[place] [address] Urine Drugs screened: See Below Normal [facility] Comment on above: Result Comment: This drug screen is a presumptive screening only.No confirmation will be performed unless requested.Drugs screened include: ThresholdAmphetamines/Methamphetamines 1,000 ng/mLBarbiturates 200 ng/mLBenzodiazepine metabolites 200 ng/mLCannabinoids (THC metabolites) 50 ng/mLBenzoylecognine (Cocaine metab) 300 ng/mLOpiates 300 ng/mLPhencyclidine (PCP) 25 ng/mLMethadone 300 ng/mLPropoxyphene 300 ng/mLFentanyl 1.0 ng/mLOxycodone 100 ng/mLTesting has been performed FOR MEDICAL PURPOSES ONLY. Performed By: #### D RUGU ####[place] [address] FIBon 10-09-2024 Fibrinogen >700 High 250-560 [facility] Comment on above: Performed By: #### C MP, ABSGEL, CBC, APTT, ANEU, GFR, ADIFF, PRO, ABOGEL, FIB ####[place] [id number] [address] [place], [place] [id number] [facility] 10-09-2024 LDose Gentamicin:(trough) See eMAR Normal [facility] Comment on above: Performed By: #### G ENTT ####[place] [address] Gentamicin Tr 0.7 mcg/mL Normal 0.0-2.0 [facility] Comment on above: Performed By: #### G ENTT ####[place] [address] LABORATORYOrdered By: Chhaya Spicer on 10-09-2024 Acetaminophen [Mass/Vol] mcg/mL Low 10.0 - 20.0 mcg/mL ADM SS Ethanol [Mass/Vol] mg/dL Invalid Interpretation Code ADM SS Salicylates [Mass/Vol] mg/dL Low 10.0 - 25.0 mg/dL AH ADM SS Serum Drugs screened: See Below 25 (10/09/24 9:10 PM) Normal Chemistry S Comment on above: Interpretive Data: T his drug screen is a presumptive screening only. No confirmation will be performed unless requested. Drugs included in the serum drug screen are: Threshold Ethanol 10.0 mg/dL Salicylate 2.0 mg/dl Acetaminophen 2.0 mcg/mL Testing has been performed FOR MEDICAL PURPOSES ONLY. Amphetamines Screen Ql (U) Negative *NA* (10/09/24 7:33 PM) Invalid Interpretation Code Negative AH ADM SS Barbiturates Screen Ql (U) Negative *NA* (10/09/24 7:33 PM) Invalid Interpretation Code Negative AH ADM SS Benzodiazepines Ql (U) Negative *NA* (10/09/24 7:33 PM) Invalid Interpretation Code Negative AH ADM SS Benzoylecgonine Screen Ql (U) Negative *NA* (10/09/24 7:33 PM) Invalid Interpretation Code Negative AH ADM SS Cannabinoids Screen Ql (U) Negative *NA* (10/09/24 7:33 PM) Invalid Interpretation Code Negative AH ADM SS fentaNYL Screen Ql (U) Negative 1 *NA* (10/09/24 7:33 PM) Invalid Interpretation Code Negative AH ADM SS Comment on above: Interpretive Data: T esting has been performed FOR MEDICAL PURPOSES ONLY. Methadone Screen Ql (U) Negative *NA* (10/09/24 7:33 PM) Invalid Interpretation Code Negative AH ADM SS Opiates Screen Ql (U) Negative *NA* (10/09/24 7:33 PM) Invalid Interpretation Code Negative AH ADM SS oxyCODONE Ql (U) Positive 2 *ABN* (10/09/24 7:33 PM) Invalid Interpretation Code Negative AH ADM SS Comment on above: Interpretive Data: T esting has been performed FOR MEDICAL PURPOSES ONLY. pH (U) 7.0 [pH] Normal 5.0 - 8.0 AH Chemistry S Phencyclidine Ql (U) Negative *NA* (10/09/24 7:33 PM) Invalid Interpretation Code Negative AH ADM SS Propoxyphene Screen Ql (U) Negative *NA* (10/09/24 7:33 PM) Invalid Interpretation Code Negative ADM SS Urine Drugs screened: See Below 26 (10/09/24 7:33 PM) Normal Chemistry S Comment on above: Interpretive Data: T his drug screen is a presumptive screening only. No confirmation will be performed unless requested. Drugs screened include: Threshold Amphetamines/Methamphetamines 1,000 ng/mL Barbiturates 200 ng/mL Benzodiazepine metabolites 200 ng/mL Cannabinoids (THC metabolites) 50 ng/mL Benzoylecognine (Cocaine metab) 300 ng/mL Opiates 300 ng/mL Phencyclidine (PCP) 25 ng/mL Methadone 300 ng/mL Propoxyphene 300 ng/mL Fentanyl 1.0 ng/mL Oxycodone 100 ng/mL Testing has been performed FOR MEDICAL PURPOSES ONLY. LABORATORYOrdered By: SYSTEM SYSTEM on 10-09-2024 Lactate [Moles/Vol] 1.4 mmol/L Normal 0.5 - 2. 2 mmol/L AH ADM SS Albumin BCP dye [Mass/Vol] 2.1 G/dL Low 3.2 - 4.8 G/dL AH ADM SS Albumin/Globulin [Mass ratio] 0.4 {ratio} Low 0.9 - 1.6 ratio AH ADM SS ALP [Catalytic activity/Vol] 101 U/L Normal 38 - 126 U/L AH ADM SS ALT No additional P-5'-P [Catalytic activity/Vol] U/L 1 Low 12 - 55 U/L ADM SS aPTT Coag (Bld) [Time] 38.9 s High 25.0 - 35.0 seconds [facility] SS Comment on above: Interpretive Data: F or Heparin anticoagulation therapy, the recommended therapeutic range is: 54-77 seconds (APTT Correlation with Anti-Xa therapeutic range of 0.3-0.7 units/ml). PLEASE REFERENCE THE PHARMACY PROTOCOL FOR DOSING. AST [Catalytic activity/Vol] 26 U/L Normal 8 - 34 U/L ADM SS Bilirubin [Mass/Vol] 1.30 mg/dL High 0.20 - 1.20 mg/dL ADM Comment on above: Interpretive Data: U se of this assay is not recommended for patients undergoing treatment with eltrombopag due to the potential for falsely elevated results. Fibrinogen mg/dL High 250 - 560 mg/dL [facility] SS Globulin 5.7 G/dL High 2.5 - 4.2 G/dL ADM SS Protein [Mass/Vol] 7.8 G/dL Normal 5.7 - 8.2 G/dL ADM SS PT Coag (PPP) [Time] 14.9 s High 9.0 - 1 4.4 seconds [facility] Comment on above: Interpretive Data: E ffective 10/31/07, Protime results may be affected by some antibiotics (i.e. Ciprofloxacin, Azithromycin, Bactrim) which may potentiate the action of oral anticoagulants, with further increases in Protime/INR. PT International Ratio 1.3 ratio Invalid Interpretation Code [facility] Comment on above: Interpretive Data: Valeriy mccoy [employer] (CHEST, 1991, 102:312S-25S) recommended therapeutic range for oral anticoagulant therapy is: LOW RISK: Prophylaxis of venous thrombosis INR: 2.0-3.0 Treatment of pulmonary embolism 2.0-3.0 Prevention of systemic embolism 2.0-3.0 HIGH RISK: Mechanical prosthetic valves 2.5-3.5 Gentamicin trough [Mass/Vol] 0.7 mcg/mL Normal 0.0 - 2.0 mcg/mL ADM SS PT Coag (PPP) [Time] 14.5 s High 9.0 - 1 4.4 seconds [facility] Comment on above: Interpretive Data: E ffective 10/31/07, Protime results may be affected by some antibiotics (i.e. Ciprofloxacin, Azithromycin, Bactrim) which may potentiate the action of oral anticoagulants, with further increases in Protime/INR. PT International Ratio 1.3 ratio Invalid Interpretation Code [facility] SS Comment on above: Interpretive Data: [employer]iy mccoy [employer] (CHEST, 1991, 102:312S-25S) recommended therapeutic range for oral anticoagulant therapy is: LOW RISK: Prophylaxis of venous thrombosis INR: 2.0-3.0 Treatment of pulmonary embolism 2.0-3.0 Prevention of systemic embolism 2.0-3.0 HIGH RISK: Mechanical prosthetic valves 2.5-3.5 LABORATORYOrdered By: Lalito Rodas on 10-09-2024 ABO and Rh group Nom (Bld) Blood group O Rh(D) positive Invalid Interpretation Code BB Auto SS Blood group antibody screen Ql Negative ABSC (10/09/24 6:19 PM) Normal BB Auto SS LABORATORYOrdered By: Chelsey merrill on 10-09-2024 LDose Gentamicin:(trough) See eMAR (10/09/24 9:53 AM) Normal Chemistry S LACon 10-09-2024 Lactic Acid Lvl 1.4 mmol/L Normal 0.5-2.2 [facility] Comment on above: Performed By: #### L ####[place] [address] Laboratory - Microbiology an d Antimicrobial susceptibilityOrdered By: [facility]CRO[facility] on 10-09-2024 Bacteria identified Cx Nom (Bld) Culture has been received in lab and is no growth to date. Culture will be held for four weeks. [facility] Bacteria identified Cx Nom (Bld) Culture has been received in lab and is no growth to date. Culture will be held for four weeks. [facility] PROon 10-09-2024 INR Coag (PPP) [Relative time] 1.3 {INR} Normal [facility] Comment on above: Result Comment: [employer] (CHEST, 1991, 102:312S-25S)recommended therapeutic range for oral anticoagulant therapy is:LOW RISK: Prophylaxis of venous thrombosis INR: 2.0-3.0 Treatment of pulmonary embolism 2.0-3.0 Prevention of systemic embolism 2.0-3.0HIGH RISK: Mechanical prosthetic valves 2.5-3.5 Performed By: #### C MP, ABSGEL, CBC, APTT, ANEU, GFR, ADIFF, PRO, ABOGEL, FIB ####[address] [address] PT Coag (PPP) [Time] 14.9 s High 9.0-14.[address] [facility] Comment on above: Result Comment: Effe ctive 10/31/07, Protime results may be affected by some antibiotics (i.e. Ciprofloxacin, Azithromycin, Bactrim) which may potentiate the action of oral anticoagulants, with further increases in Protime/INR. Performed By: #### C MP, ABSGEL, CBC, APTT, ANEU, GFR, ADIFF, PRO, ABOGEL, FIB ####[address] [address] INR Coag (PPP) [Relative time] 1.3 {INR} Normal [facility] Comment on above: Order Comment: order ed secondary to warfarin order Result Comment: [employer] (CHEST, 1992, 102:312S-25S)recommended therapeutic range for oral anticoagulant therapy is:LOW RISK: Prophylaxis of venous thrombosis INR: 2.0-3.0 Treatment of pulmonary embolism 2.0-3.0 Prevention of systemic embolism 2.0-3.0HIGH RISK: Mechanical prosthetic valves 2.5-3.5 Performed By: #### A DIFF, CBC, PRO, ANEU, BMP, GFR ####[address] [address] PT Coag (PPP) [Time] 14.5 s High 9.0-14.[address] [facility] Comment on above: Order Comment: order ed secondary to warfarin order Result Comment: Effe ctive 10/31/07, Protime results may be affected by some antibiotics (i.e. Ciprofloxacin, Azithromycin, Bactrim) which may potentiate the action of oral anticoagulants, with further increases in Protime/INR. Performed By: #### A DIFF, CBC, PRO, ANEU, BMP, GFR ####[address] [address] XR CHEST 1 VIEWon 10-09-2024 XR CHEST 1 VIEW Normal [facility] XR CHEST 1 VIEW Normal [facility] .Auto Diffon 10-08-2024 Basophil, Absolute 0.1 10 3/mcL Normal 0.0-0.[address] [facility] Comment on above: Performed By: #### B MP, PRO, GFR, MORPH, CBC, ANEU, ADIFF ####[address] [address] Basophils/100 WBC (Bld) 0.7 % Normal 0.0-2.5 [facility] Comment on above: Performed By: #### B MP, PRO, GFR, MORPH, CBC, ANEU, ADIFF ####[address] [address] Eosinophil, Absolute 0.0 10 3/mcL Normal 0.0-0.7 [facility] Comment on above: Performed By: #### B MP, PRO, GFR, MORPH, CBC, ANEU, ADIFF ####[address] [address] Eosinophils/100 WBC (Bld) 0.3 % Normal 0.0-6.0 [facility] Comment on above: Performed By: #### B MP, PRO, GFR, MORPH, CBC, ANEU, ADIFF ####[address] [address] Lymphocyte, Absolute 1.7 10 3/mcL Normal 0.9-4.3 [facility] Comment on above: Performed By: #### B MP, PRO, GFR, MORPH, CBC, ANEU, ADIFF ####[address] [address] Lymphocytes/100 WBC (Bld) 16.6 % Low 20.0-40.0 [facility] Comment on above: Performed By: #### B MP, PRO, GFR, MORPH, CBC, ANEU, ADIFF ####[address] [address] Monocyte, Absolute 0.8 10 3/mcL Normal 0.1-1.[address] [facility] Comment on above: Performed By: #### B MP, PRO, GFR, MORPH, CBC, ANEU, ADIFF ####[place] [id number] [address] [place] [address] Monocytes/100 WBC (Bld) 8.4 % Normal 2.0-13.0 [facility] Comment on above: Performed By: #### B MP, PRO, GFR, MORPH, CBC, ANEU, ADIFF ####[place] [id number] [address] [place] [address] Neutrophils/100 WBC (Bld) 74.0 % Normal 50.0-75.0 [facility] Comment on above: Performed By: #### B MP, PRO, GFR, MORPH, CBC, ANEU, ADIFF ####[address] [address] .GFRon 10-08-2024 GFR/1.73 sq M.predicted among non-blacks MDRD (S/P/Bld) [Vol rate/Area] mL/min/{1.73_m2} Normal [facility] Comment on above: Result Comment: Stag es of Chronic Kidney Disease (CKD)Stage Description eGFR(ml/min/1.73 sq.m.)CKD 1 Normal kidney function or >=90 normal kindney function with possible kidney damage (ex. Proteinuria)CKD 2 Kidney damage with mild loss 60-89 of kidney functionCKD 3a Mild to moderate loss of kidney 45-59 functionCKD 3b Moderate to severe loss of 30-44 of kindey function CKD 4 Severe loss of kidney function 15-29CKD 5 Kidney failure <15Note: (go live 2024) the eGFR calculation was updated to the KD-EPI creatinine equation without a race factor to calculate theeGFR results. Performed By: #### B MP, PRO, GFR, MORPH, CBC, ANEU, ADIFF ####[place] [id number] [address] [place] [address] .Morphon 10-08-2024 Anisocytosis Ql (Bld) 2+ Normal [facility] Comment on above: Performed By: #### B MP, PRO, GFR, MORPH, CBC, ANEU, ADIFF ####[place] [id number] [place] [address] Platelet Estimate Normal Normal [facility] Comment on above: Performed By: #### B MP, PRO, GFR, MORPH, CBC, ANEU, ADIFF ####[address] [address] .NEUABSon 10-08-2024 Neutrophil, Absolute 7.5 10 3/mcL Normal 2.3-8.1 [facility] Comment on above: Performed By: #### B MP, PRO, GFR, MORPH, CBC, ANEU, ADIFF ####[place] [id number] BMPon 10-08-2024 BUN/Creatinine Ratio 10.9 ratio Normal 10.0-22.[address] [facility] Comment on above: Performed By: #### B MP, PRO, GFR, MORPH, CBC, ANEU, ADIFF ####[place] [address] Calcium [Mass/Vol] 8.5 mg/dL Low 8.7-10.4 [facility] Comment on above: Performed By: #### B MP, PRO, GFR, MORPH, CBC, ANEU, ADIFF ####[place] [address] Chloride [Moles/Vol] 100 mmol/L Normal 98-[address] [facility] Comment on above: Performed By: #### B MP, PRO, GFR, MORPH, CBC, ANEU, ADIFF ####[place] [address] CO2 [Moles/Vol] 25 mmol/L Normal 22-32 [facility] Comment on above: Performed By: #### B MP, PRO, GFR, MORPH, CBC, ANEU, ADIFF ####[place] [address] Creatinine [Mass/Vol] 0.64 mg/dL Normal 0.60-1.[address] [facility] Comment on above: Result Comment: Test ing performed on [employer] analyzer using enzymatic creatinine methodology. Performed By: #### B MP, PRO, GFR, MORPH, CBC, ANEU, ADIFF ####[place] [address] Electrolyte Balance 11.0 mEq/L Normal 4.0-15.0 [facility] Comment on above: Performed By: #### B MP, PRO, GFR, MORPH, CBC, ANEU, ADIFF ####[place] [address] Glucose [Mass/Vol] 110 mg/dL Normal 70-110 [facility] Comment on above: Performed By: #### B MP, PRO, GFR, MORPH, CBC, ANEU, ADIFF ####[place] [id number] Potassium [Moles/Vol] 4.5 mmol/L Normal 3.5-5.[address] [facility] Comment on above: Performed By: #### B MP, PRO, GFR, MORPH, CBC, ANEU, ADIFF ####[place] [address] Sodium [Moles/Vol] 136 mmol/L Normal 136-145 [facility] Comment on above: Performed By: #### B MP, PRO, GFR, MORPH, CBC, ANEU, ADIFF ####[place] [address] Urea nitrogen [Mass/Vol] 7.0 mg/dL Low 8.0-22.0 [facility] Comment on above: Performed By: #### B MP, PRO, GFR, MORPH, CBC, ANEU, ADIFF ####[place] [address] CBCon 10-08-2024 Erythrocyte distribution width (RBC) [Ratio] 24.4 % High 11.5-15.5 [facility] Comment on above: Performed By: #### B MP, PRO, GFR, MORPH, CBC, ANEU, ADIFF ####[place] [address] Hematocrit (Bld) [Volume fraction] 28.2 % Low 40.0-52.0 [facility] Comment on above: Performed By: #### B MP, PRO, GFR, MORPH, CBC, ANEU, ADIFF ####[place] [address] Hgb 9.4 G/dL Low 13.0-17.5 [facility] Comment on above: Performed By: #### B MP, PRO, GFR, MORPH, CBC, ANEU, ADIFF ####[place] [address] MCH (RBC) [Entitic mass] 28.8 pg Normal 27.0-33.0 [facility] Comment on above: Performed By: #### B MP, PRO, GFR, MORPH, CBC, ANEU, ADIFF ####[place] [address] MCHC 33.3 G/dL Normal 32.0-36.0 [facility] Comment on above: Performed By: #### B MP, PRO, GFR, MORPH, CBC, ANEU, ADIFF ####[place] [address] MCV (RBC) [Entitic vol] 86.6 fL Normal 81.0-100.0 [facility] Comment on above: Performed By: #### B MP, PRO, GFR, MORPH, CBC, ANEU, ADIFF ####[place] [address] Platelet 270 10 3/mcL Normal 150-450 [facility] Comment on above: Performed By: #### B MP, PRO, GFR, MORPH, CBC, ANEU, ADIFF ####[place] [address] Platelet mean volume (Bld) [Entitic vol] 8.9 fL Normal 6.4-10.5 [facility] Comment on above: Performed By: #### B MP, PRO, GFR, MORPH, CBC, ANEU, ADIFF ####[place] [address] RBC 3.26 10 6/mcL Low 4.50-6.00 [facility] Comment on above: Performed By: #### B MP, PRO, GFR, MORPH, CBC, ANEU, ADIFF ####[place] [address] WBC 10.1 10 3/mcL Normal 4.5-10.8 [facility] Comment on above: Performed By: #### B MP, PRO, GFR, MORPH, CBC, ANEU, ADIFF ####[place] [address] LABORATORYOrdered By: SYSTEM SYSTEM on 10-08-2024 Anisocytosis Ql (Bld) 2+ *NA* (10/08/24 6:25 AM) Invalid Interpretation Code Workflow SS Platelets LM Ql (Bld) Normal *NA* (10/08/24 6:25 AM) Invalid Interpretation Code AH Workflow SS PT Coag (PPP) [Time] 16.2 s High 9.0 - 1 4.4 seconds [facility] SS Comment on above: Interpretive Data: E ffective 10/31/07, Protime results may be affected by some antibiotics (i.e. Ciprofloxacin, Azithromycin, Bactrim) which may potentiate the action of oral anticoagulants, with further increases in Protime/INR. PT International Ratio 1.4 ratio Invalid Interpretation Code [facility] Comment on above: Interpretive Data: Valeriy mccoy [employer] (CHEST, 1992, 102:312S-25S) recommended therapeutic range for oral anticoagulant therapy is: LOW RISK: Prophylaxis of venous thrombosis INR: 2.0-3.0 Treatment of pulmonary embolism 2.0-3.0 Prevention of systemic embolism 2.0-3.0 HIGH RISK: Mechanical prosthetic valves 2.5-3.5 PROon 10-08-2024 INR Coag (PPP) [Relative time] 1.4 {INR} Normal [facility] Comment on above: Order Comment: order ed secondary to warfarin order Result Comment: [employer] (CHEST, 1991, 102:312S-25S)recommended therapeutic range for oral anticoagulant therapy is:LOW RISK: Prophylaxis of venous thrombosis INR: 2.0-3.0 Treatment of pulmonary embolism 2.0-3.0 Prevention of systemic embolism 2.0-3.0HIGH RISK: Mechanical prosthetic valves 2.5-3.5 Performed By: #### B MP, PRO, GFR, MORPH, CBC, ANEU, ADIFF ####[place] [address] PT Coag (PPP) [Time] 16.2 s High 9.0-14.[address] [facility] Comment on above: Order Comment: order ed secondary to warfarin order Result Comment: Effe ctive 10/31/07, Protime results may be affected by some antibiotics (i.e. Ciprofloxacin, Azithromycin, Bactrim) which may potentiate the action of oral anticoagulants, with further increases in Protime/INR. Performed By: #### B MP, PRO, GFR, MORPH, CBC, ANEU, ADIFF ####[address] [address] XR CHEST 1 VIEWon 10-08-2024 XR CHEST 1 VIEW Normal [facility] .Auto Diffon 10-07-2024 Basophil, Absolute 0.0 10 3/mcL Normal 0.0-0.[address] [facility] Comment on above: Performed By: #### G FR, ANEU, ADIFF, BMP, CBC, PRO, MORPH ####[place] [address] Basophils/100 WBC (Bld) 0.4 % Normal 0.0-2.5 [facility] Comment on above: Performed By: #### G FR, ANEU, ADIFF, BMP, CBC, PRO, MORPH ####[place] [address] Eosinophil, Absolute 0.0 10 3/mcL Normal 0.0-0.7 [facility] Comment on above: Performed By: #### G FR, ANEU, ADIFF, BMP, CBC, PRO, MORPH ####[place] [address] Eosinophils/100 WBC (Bld) 0.3 % Normal 0.0-6.0 [facility] Comment on above: Performed By: #### G FR, ANEU, ADIFF, BMP, CBC, PRO, MORPH ####[address] [address] Lymphocyte, Absolute 1.5 10 3/mcL Normal 0.9-4.3 [facility] Comment on above: Performed By: #### G FR, ANEU, ADIFF, BMP, CBC, PRO, MORPH ####[address] [address] Lymphocytes/100 WBC (Bld) 14.8 % Low 20.0-40.0 [facility] Comment on above: Performed By: #### G FR, ANEU, ADIFF, BMP, CBC, PRO, MORPH ####[address] [address] Monocyte, Absolute 1.0 10 3/mcL Normal 0.1-1.[address] [facility] Comment on above: Performed By: #### G FR, ANEU, ADIFF, BMP, CBC, PRO, MORPH ####[place] [id number] [place] [address] Monocytes/100 WBC (Bld) 9.2 % Normal 2.0-13.0 [facility] Comment on above: Performed By: #### G FR, ANEU, ADIFF, BMP, CBC, PRO, MORPH ####[address] [address] Neutrophils/100 WBC (Bld) 75.3 % High 50.0-75.0 [facility] Comment on above: Performed By: #### G FR, ANEU, ADIFF, BMP, CBC, PRO, MORPH ####[place] [address] .GFRon 10-07-2024 GFR/1.73 sq M.predicted among non-blacks MDRD (S/P/Bld) [Vol rate/Area] mL/min/{1.73_m2} Normal [facility] Comment on above: Result Comment: Stag es of Chronic Kidney Disease (CKD)Stage Description eGFR(ml/min/1.73 sq.m.)CKD 1 Normal kidney function or >=90 normal kindney function with possible kidney damage (ex. Proteinuria)CKD 2 Kidney damage with mild loss 60-89 of kidney functionCKD 3a Mild to moderate loss of kidney 45-59 functionCKD 3b Moderate to severe loss of 30-44 of kindey function CKD 4 Severe loss of kidney function 15-29CKD 5 Kidney failure <15Note: (go live 2024) the eGFR calculation was updated to the KD-EPI creatinine equation without a race factor to calculate theeGFR results. Performed By: #### G FR, ANEU, ADIFF, BMP, CBC, PRO, MORPH ####[address] [address] .Morphon 10-07-2024 Anisocytosis Ql (Bld) 2+ Normal [facility] Comment on above: Performed By: #### G FR, ANEU, ADIFF, BMP, CBC, PRO, MORPH ####[place] [id number] [place] [address] Ovalocytes 1+ Normal [facility] Comment on above: Performed By: #### G FR, ANEU, ADIFF, BMP, CBC, PRO, MORPH ####[address] [address] Platelet Estimate Normal Normal [facility] Comment on above: Performed By: #### G FR, ANEU, ADIFF, BMP, CBC, PRO, MORPH ####[place] [address] Poik 1+ Normal [facility] Comment on above: Performed By: #### G FR, ANEU, ADIFF, BMP, CBC, PRO, MORPH ####[place] [address] .NEUABSon 10-07-2024 Neutrophil, Absolute 7.8 10 3/mcL Normal 2.3-8.1 [facility] Comment on above: Performed By: #### G FR, ANEU, ADIFF, BMP, CBC, PRO, MORPH ####[place] [address] BMPon 10-07-2024 BUN/Creatinine Ratio 17.5 ratio Normal 10.0-22.[address] [facility] Comment on above: Performed By: #### G FR, ANEU, ADIFF, BMP, CBC, PRO, MORPH ####[place] [address] Calcium [Mass/Vol] 8.0 mg/dL Low 8.7-10.4 [facility] Comment on above: Performed By: #### G FR, ANEU, ADIFF, BMP, CBC, PRO, MORPH ####[place] [address] Chloride [Moles/Vol] 100 mmol/L Normal 98-[address] [facility] Comment on above: Performed By: #### G FR, ANEU, ADIFF, BMP, CBC, PRO, MORPH ####[place] [address] CO2 [Moles/Vol] 27 mmol/L Normal 22-32 [facility] Comment on above: Performed By: #### G FR, ANEU, ADIFF, BMP, CBC, PRO, MORPH ####[place] [address] Creatinine [Mass/Vol] 0.63 mg/dL Normal 0.60-1.[address] [facility] Comment on above: Result Comment: Test ing performed on [employer] analyzer using enzymatic creatinine methodology. Performed By: #### G FR, ANEU, ADIFF, BMP, CBC, PRO, MORPH ####[place] [address] Electrolyte Balance 8.0 mEq/L Normal 4.0-15.0 [facility] Comment on above: Performed By: #### G FR, ANEU, ADIFF, BMP, CBC, PRO, MORPH ####[place] [address] Glucose [Mass/Vol] 125 mg/dL High 70-110 [facility] Comment on above: Performed By: #### G FR, ANEU, ADIFF, BMP, CBC, PRO, MORPH ####[place] [address] Potassium [Moles/Vol] 3.7 mmol/L Normal 3.5-5.[address] [facility] Comment on above: Performed By: #### G FR, ANEU, ADIFF, BMP, CBC, PRO, MORPH ####[place] [address] Sodium [Moles/Vol] 135 mmol/L Low 136-145 [facility] Comment on above: Performed By: #### G FR, ANEU, ADIFF, BMP, CBC, PRO, MORPH ####[place] [address] Urea nitrogen [Mass/Vol] 11.0 mg/dL Normal 8.0-22.0 [facility] Comment on above: Performed By: #### G FR, ANEU, ADIFF, BMP, CBC, PRO, MORPH ####[place] [address] CBCon 10-07-2024 Erythrocyte distribution width (RBC) [Ratio] 25.0 % High 11.5-15.5 [facility] Comment on above: Performed By: #### G FR, ANEU, ADIFF, BMP, CBC, PRO, MORPH ####[place] [address] Hematocrit (Bld) [Volume fraction] 28.9 % Low 40.0-52.0 [facility] Comment on above: Performed By: #### G FR, ANEU, ADIFF, BMP, CBC, PRO, MORPH ####[place] [address] Hgb 9.7 G/dL Low 13.0-17.5 [facility] Comment on above: Performed By: #### G FR, ANEU, ADIFF, BMP, CBC, PRO, MORPH ####[place] [address] MCH (RBC) [Entitic mass] 28.6 pg Normal 27.0-33.0 [facility] Comment on above: Performed By: #### G FR, ANEU, ADIFF, BMP, CBC, PRO, MORPH ####[place] [address] MCHC 33.5 G/dL Normal 32.0-36.0 [facility] Comment on above: Performed By: #### G FR, ANEU, ADIFF, BMP, CBC, PRO, MORPH ####[place] [address] MCV (RBC) [Entitic vol] 85.4 fL Normal 81.0-100.0 [facility] Comment on above: Performed By: #### G FR, ANEU, ADIFF, BMP, CBC, PRO, MORPH ####[place] [address] Platelet 249 10 3/mcL Normal 150-450 [facility] Comment on above: Performed By: #### G FR, ANEU, ADIFF, BMP, CBC, PRO, MORPH ####[place] [address] Platelet mean volume (Bld) [Entitic vol] 9.0 fL Normal 6.4-10.5 [facility] Comment on above: Performed By: #### G FR, ANEU, ADIFF, BMP, CBC, PRO, MORPH ####[facility] [place] [address] RBC 3.39 10 6/mcL Low 4.50-6.00 [facility] Comment on above: Performed By: #### G FR, ANEU, ADIFF, BMP, CBC, PRO, MORPH ####[facility] [place] [address] WBC 10.4 10 3/mcL Normal 4.5-10.8 [facility] Comment on above: Performed By: #### G FR, ANEU, ADIFF, BMP, CBC, PRO, MORPH ####[place] [id number] [place] [address] LABORATORYOrdered By: SYSTEM SYSTEM on 10-07-2024 Anisocytosis Ql (Bld) 2+ *NA* (10/07/24 4:28 AM) Invalid Interpretation Code AH Workflow SS Ovalocytes LM Ql (Bld) 1+ *NA* (10/07/24 4:28 AM) Invalid Interpretation Code AH Workflow SS Platelets LM Ql (Bld) Normal *NA* (10/07/24 4:28 AM) Invalid Interpretation Code AH Workflow SS Poikilocytosis LM Ql (Bld) 1+ *NA* (10/07/24 4:28 AM) Invalid Interpretation Code AH Workflow SS PROon 10-07-2024 INR Coag (PPP) [Relative time] 1.5 {INR} Normal [facility] Comment on above: Order Comment: order ed secondary to warfarin order Result Comment: [employer] (CHEST, 1992, 102:312S-25S)recommended therapeutic range for oral anticoagulant therapy is:LOW RISK: Prophylaxis of venous thrombosis INR: 2.0-3.0 Treatment of pulmonary embolism 2.0-3.0 Prevention of systemic embolism 2.0-3.0HIGH RISK: Mechanical prosthetic valves 2.5-3.5 Performed By: #### G FR, ANEU, ADIFF, BMP, CBC, PRO, MORPH ####[facility] [place] [phone] PT Coag (PPP) [Time] 17.7 s High 9.0-14.[address] [facility] Comment on above: Order Comment: order ed secondary to warfarin order Result Comment: Effe ctive 10/31/07, Protime results may be affected by some antibiotics (i.e. Ciprofloxacin, Azithromycin, Bactrim) which may potentiate the action of oral anticoagulants, with further increases in Protime/INR. Performed By: #### G FR, ANEU, ADIFF, BMP, CBC, PRO, MORPH ####[address] [address] XR CHEST 1 VIEWon 10-07-2024 XR CHEST 1 VIEW Normal [facility] .Auto Diffon 10-06-2024 Basophil, Absolute 0.1 10 3/mcL Normal 0.0-0.[address] [facility] Comment on above: Performed By: #### A MINH, GFR, CMP, CBC, MORPH, ADIFF ####[address] [address] Basophils/100 WBC (Bld) 0.5 % Normal 0.0-2.5 [facility] Comment on above: Performed By: #### A MINH, GFR, CMP, CBC, MORPH, ADIFF ####[address] [address] Eosinophil, Absolute 0.0 10 3/mcL Normal 0.0-0.7 [facility] Comment on above: Performed By: #### A MINH, GFR, CMP, CBC, MORPH, ADIFF ####[address] [address] Eosinophils/100 WBC (Bld) 0.1 % Normal 0.0-6.0 [facility] Comment on above: Performed By: #### A MINH, GFR, CMP, CBC, MORPH, ADIFF ####[address] [address] Lymphocyte, Absolute 1.5 10 3/mcL Normal 0.9-4.3 [facility] Comment on above: Performed By: #### A MINH, GFR, CMP, CBC, MORPH, ADIFF ####[address] [address] Lymphocytes/100 WBC (Bld) 13.3 % Low 20.0-40.0 [facility] Comment on above: Performed By: #### A MINH, GFR, CMP, CBC, MORPH, ADIFF ####[facility] [place] [address] Monocyte, Absolute 0.7 10 3/mcL Normal 0.1-1.[address] [facility] Comment on above: Performed By: #### A MINH, GFR, CMP, CBC, MORPH, ADIFF ####[place] [id number] [place] [address] Monocytes/100 WBC (Bld) 6.2 % Normal 2.0-13.0 [facility] Comment on above: Performed By: #### A MINH, GFR, CMP, CBC, MORPH, ADIFF ####[place] [id number] [place] [address] Neutrophils/100 WBC (Bld) 79.9 % High 50.0-75.0 [facility] Comment on above: Performed By: #### A MINH, GFR, CMP, CBC, MORPH, ADIFF ####[address] [address] .GFRon 10-06-2024 GFR/1.73 sq M.predicted among non-blacks MDRD (S/P/Bld) [Vol rate/Area] mL/min/{1.73_m2} [facility] Comment on above: Result Comment: Stag es of Chronic Kidney Disease (CKD)Stage Description eGFR(ml/min/1.73 sq.m.)CKD 1 Normal kidney function or >=90 normal kindney function with possible kidney damage (ex. Proteinuria)CKD 2 Kidney damage with mild loss 60-89 of kidney functionCKD 3a Mild to moderate loss of kidney 45-59 functionCKD 3b Moderate to severe loss of 30-44 of kindey function CKD 4 Severe loss of kidney function 15-29CKD 5 Kidney failure <15Note: (go live 2024) the eGFR calculation was updated to the KD-EPI creatinine equation without a race factor to calculate theeGFR results. Performed By: #### A MINH, GFR, CMP, CBC, MORPH, ADIFF ####[place] [id number] [place] [address] .Morphon 10-06-2024 Anisocytosis Ql (Bld) 2+ Normal [facility] Comment on above: Performed By: #### A MINH, GFR, CMP, CBC, MORPH, ADIFF ####[place] [address] Ovalocytes 1+ Normal [facility] Comment on above: Performed By: #### A MINH, GFR, CMP, CBC, MORPH, ADIFF ####[place] [address] Platelet Estimate Normal [facility] Comment on above: Performed By: #### A MINH, GFR, CMP, CBC, MORPH, ADIFF ####[place] [address] Poik 1+ Normal [facility] Comment on above: Performed By: #### A MNIH, GFR, CMP, CBC, MORPH, ADIFF ####[place] [address] .NEUABSon 10-06-2024 Neutrophil, Absolute 9.0 10 3/mcL High 2.3-8.1 [facility] Comment on above: Performed By: #### A MINH, GFR, CMP, CBC, MORPH, ADIFF ####[place] [address] CBCon 10-06-2024 Erythrocyte distribution width (RBC) [Ratio] 26.4 % High 11.5-15.5 [facility] Comment on above: Performed By: #### A MINH, GFR, CMP, CBC, MORPH, ADIFF ####[place] [address] Hematocrit (Bld) [Volume fraction] 29.8 % Low 40.0-52.0 [facility] Comment on above: Performed By: #### A MINH, GFR, CMP, CBC, MORPH, ADIFF ####[place] [address] Hgb 10.1 G/dL Low 13.0-17.5 [facility] Comment on above: Performed By: #### A MINH, GFR, CMP, CBC, MORPH, ADIFF ####[place] [address] MCH (RBC) [Entitic mass] 29.0 pg Normal 27.0-33.0 [facility] Comment on above: Performed By: #### A MINH, GFR, CMP, CBC, MORPH, ADIFF ####[place] [address] MCHC 33.9 G/dL Normal 32.0-36.0 [facility] Comment on above: Performed By: #### A MINH, GFR, CMP, CBC, MORPH, ADIFF ####[place] [address] MCV (RBC) [Entitic vol] 85.6 fL Normal 81.0-100.0 [facility] Comment on above: Performed By: #### A MINH, GFR, CMP, CBC, MORPH, ADIFF ####[place] [address] Platelet 254 10 3/mcL Normal 150-450 [facility] Comment on above: Performed By: #### A MINH, GFR, CMP, CBC, MORPH, ADIFF ####[place] [address] Platelet mean volume (Bld) [Entitic vol] 8.8 fL Normal 6.4-10.5 [facility] Comment on above: Performed By: #### A MINH, GFR, CMP, CBC, MORPH, ADIFF ####[place] [address] RBC 3.48 10 6/mcL Low 4.50-6.00 [facility] Comment on above: Performed By: #### A MINH, GFR, CMP, CBC, MORPH, ADIFF ####[place] [address] WBC 11.2 10 3/mcL High 4.5-10.8 [facility] Comment on above: Performed By: #### A MINH, GFR, CMP, CBC, MORPH, ADIFF ####[place] [address] CMPon 10-06-2024 Albumin Level 2.0 G/dL Low 3.2-4.8 [facility] Comment on above: Performed By: #### A MINH, GFR, CMP, CBC, MORPH, ADIFF ####[place] [phone] Albumin/Globulin [Mass ratio] 0.5 {ratio} Low 0.9-1.6 [facility] Comment on above: Performed By: #### A MINH, GFR, CMP, CBC, MORPH, ADIFF ####[address] [address] ALP [Catalytic activity/Vol] 115 U/L Normal 38-126 [facility] Comment on above: Performed By: #### A MINH, GFR, CMP, CBC, MORPH, ADIFF ####[place] [phone] ALT/SGPT <8 Low 12-55 [facility] Comment on above: Performed By: #### A MINH, GFR, CMP, CBC, MORPH, ADIFF ####[place] [phone] AST [Catalytic activity/Vol] 34 U/L Normal 8-34 [facility] Comment on above: Performed By: #### A MINH, GFR, CMP, CBC, MORPH, ADIFF ####[place] [phone] Bili Total 2.00 mg/dL High 0.20-1.20 [facility] Comment on above: Result Comment: Use of this assay is not recommended for patients undergoing treatment with eltrombopag due to the potential for falsely elevated results. Performed By: #### A MINH, GFR, CMP, CBC, MORPH, ADIFF ####[place] [address] BUN/Creatinine Ratio 16.2 ratio Normal 10.0-22.[address] [facility] Comment on above: Performed By: #### A MINH, GFR, CMP, CBC, MORPH, ADIFF ####[place] [phone] Calcium [Mass/Vol] 7.6 mg/dL Low 8.7-10.4 [facility] Comment on above: Performed By: #### A MINH, GFR, CMP, CBC, MORPH, ADIFF ####[address] [address] Chloride [Moles/Vol] 101 mmol/L Normal 98-[address] [facility] Comment on above: Performed By: #### A MINH, GFR, CMP, CBC, MORPH, ADIFF ####[address] [address] CO2 [Moles/Vol] 25 mmol/L Normal 22-32 [facility] Comment on above: Performed By: #### A MINH, GFR, CMP, CBC, MORPH, ADIFF ####[address] [address] Creatinine [Mass/Vol] 0.68 mg/dL Normal 0.60-1.[address] [facility] Comment on above: Result Comment: Test ing performed on [employer] analyzer using enzymatic creatinine methodology. Performed By: #### A MINH, GFR, CMP, CBC, MORPH, ADIFF ####[place] [phone] Electrolyte Balance 9.0 mEq/L Normal 4.0-15.0 [facility] Comment on above: Performed By: #### A MINH, GFR, CMP, CBC, MORPH, ADIFF ####[address] [address] Globulin 4.3 G/dL High 2.5-4.2 [facility] Comment on above: Performed By: #### A MINH, GFR, CMP, CBC, MORPH, ADIFF ####[address] [address] Glucose [Mass/Vol] 135 mg/dL High 70-110 [facility] Comment on above: Performed By: #### A MINH, GFR, CMP, CBC, MORPH, ADIFF ####[address] [address] Potassium [Moles/Vol] 3.9 mmol/L Normal 3.5-5.[address] [facility] Comment on above: Performed By: #### A MINH, GFR, CMP, CBC, MORPH, ADIFF ####[address] [address] Sodium [Moles/Vol] 135 mmol/L Low 136-145 [facility] Comment on above: Performed By: #### A MINH, GFR, CMP, CBC, MORPH, ADIFF ####[place] [id number] [place] [address] Total Protein 6.3 G/dL Normal 5.7-8.2 [facility] Comment on above: Performed By: #### A MINH, GFR, CMP, CBC, MORPH, ADIFF ####[place] [id number] [place] [address] Urea nitrogen [Mass/Vol] 11.0 mg/dL Normal 8.0-22.0 [facility] Comment on above: Performed By: #### A MINH, GFR, CMP, CBC, MORPH, ADIFF ####[place] [address] LABORATORYOrdered By: SYSTEM SYSTEM on 10-06-2024 Anisocytosis Ql (Bld) 2+ *NA* (10/06/24 5:40 AM) Invalid Interpretation Code AH Workflow SS Ovalocytes LM Ql (Bld) 1+ *NA* (10/06/24 5:40 AM) Invalid Interpretation Code AH Workflow SS Poikilocytosis LM Ql (Bld) 1+ *NA* (10/06/24 5:40 AM) Invalid Interpretation Code AH Workflow SS PROon 10-06-2024 INR Coag (PPP) [Relative time] 1.6 {INR} Normal [facility] Comment on above: Order Comment: recol lect - qns - 10/06/2024 06:23:53 EDT Result Comment: [employer] (CHEST, 1992, 102:312S-25S)recommended therapeutic range for oral anticoagulant therapy is:LOW RISK: Prophylaxis of venous thrombosis INR: 2.0-3.0 Treatment of pulmonary embolism 2.0-3.0 Prevention of systemic embolism 2.0-3.0HIGH RISK: Mechanical prosthetic valves 2.5-3.5 Performed By: #### P RO ####[place] [address] PT Coag (PPP) [Time] 18.0 s High 9.0-14.[address] [facility] Comment on above: Order Comment: recol lect - qns - 10/06/2024 06:23:53 EDT Result Comment: Effe ctive 10/31/07, Protime results may be affected by some antibiotics (i.e. Ciprofloxacin, Azithromycin, Bactrim) which may potentiate the action of oral anticoagulants, with further increases in Protime/INR. Performed By: #### P RO ####[address] [address] XR CHEST 2 VIEWSon XR CHEST 2 VIEWS Normal [facility] .Auto Diffon 10-05-2024 Basophil, Absolute 0.1 10 3/mcL Normal 0.0-0.[address] [facility] Comment on above: Performed By: #### C BC, ADIFF, BMP, ANEU, GFR, MG ####[address] [address] Basophils/100 WBC (Bld) 0.8 % Normal 0.0-2.5 [facility] Comment on above: Performed By: #### C BC, ADIFF, BMP, ANEU, GFR, MG ####[place] [address] Eosinophil, Absolute 0.0 10 3/mcL Normal 0.0-0.7 [facility] Comment on above: Performed By: #### C BC, ADIFF, BMP, ANEU, GFR, MG ####[address] [address] Eosinophils/100 WBC (Bld) 0.1 % Normal 0.0-6.0 [facility] Comment on above: Performed By: #### C BC, ADIFF, BMP, ANEU, GFR, MG ####[address] [address] Lymphocyte, Absolute 1.4 10 3/mcL Normal 0.9-4.3 [facility] Comment on above: Performed By: #### C BC, ADIFF, BMP, ANEU, GFR, MG ####[address] [address] Lymphocytes/100 WBC (Bld) 9.0 % Low 20.0-40.0 [facility] Comment on above: Performed By: #### C BC, ADIFF, BMP, ANEU, GFR, MG ####[place] [id number] [place] [address] Monocyte, Absolute 0.9 10 3/mcL Normal 0.1-1.[address] [facility] Comment on above: Performed By: #### C BC, ADIFF, BMP, ANEU, GFR, MG ####[place] [id number] [place] [id number] Monocytes/100 WBC (Bld) 5.9 % Normal 2.0-13.0 [facility] Comment on above: Performed By: #### C BC, ADIFF, BMP, ANEU, GFR, MG ####[address] [id number] Neutrophils/100 WBC (Bld) 84.2 % High 50.0-75.0 [facility] Comment on above: Performed By: #### C BC, ADIFF, BMP, ANEU, GFR, MG ####[address] [address] .GFRon 10-05-2024 GFR/1.73 sq M.predicted among non-blacks MDRD (S/P/Bld) [Vol rate/Area] mL/min/{1.73_m2} Normal [facility] Comment on above: Result Comment: Stag es of Chronic Kidney Disease (CKD)Stage Description eGFR(ml/min/1.73 sq.m.)CKD 1 Normal kidney function or >=90 normal kindney function with possible kidney damage (ex. Proteinuria)CKD 2 Kidney damage with mild loss 60-89 of kidney functionCKD 3a Mild to moderate loss of kidney 45-59 functionCKD 3b Moderate to severe loss of 30-44 of kindey function CKD 4 Severe loss of kidney function 15-29CKD 5 Kidney failure <15Note: (go live 2024) the eGFR calculation was updated to the KD-EPI creatinine equation without a race factor to calculate theeGFR results. Performed By: #### C BC, ADIFF, BMP, ANEU, GFR, MG ####[address] [id number] .NEUABSon 10-05-2024 Neutrophil, Absolute 12.9 10 3/mcL High 2.3-8.1 [facility] Comment on above: Performed By: #### C BC, ADIFF, BMP, ANEU, GFR, MG ####[address] [address] BMPon 10-05-2024 BUN/Creatinine Ratio 18.3 ratio Normal 10.0-22.[address] [facility] Comment on above: Performed By: #### C BC, ADIFF, BMP, ANEU, GFR, MG ####[place] [address] Calcium [Mass/Vol] 7.6 mg/dL Low 8.7-10.4 [facility] Comment on above: Performed By: #### C BC, ADIFF, BMP, ANEU, GFR, MG ####[place] [address] Chloride [Moles/Vol] 105 mmol/L Normal 98-[address] [facility] Comment on above: Performed By: #### C BC, ADIFF, BMP, ANEU, GFR, MG ####[place] [address] CO2 [Moles/Vol] 24 mmol/L Normal 22-32 [facility] Comment on above: Performed By: #### C BC, ADIFF, BMP, ANEU, GFR, MG ####[place] [address] Creatinine [Mass/Vol] 0.71 mg/dL Normal 0.60-1.[address] [facility] Comment on above: Result Comment: Test ing performed on [employer] analyzer using enzymatic creatinine methodology. Performed By: #### C BC, ADIFF, BMP, ANEU, GFR, MG ####[place] [address] Electrolyte Balance 5.0 mEq/L Normal 4.0-15.0 [facility] Comment on above: Performed By: #### C BC, ADIFF, BMP, ANEU, GFR, MG ####[place] [address] Glucose [Mass/Vol] 127 mg/dL High 70-110 [facility] Comment on above: Performed By: #### C BC, ADIFF, BMP, ANEU, GFR, MG ####[place] [address] Potassium [Moles/Vol] 3.8 mmol/L Normal 3.5-5.[address] [facility] Comment on above: Performed By: #### C BC, ADIFF, BMP, ANEU, GFR, MG ####[place] [address] Sodium [Moles/Vol] 134 mmol/L Low 136-145 [facility] Comment on above: Performed By: #### C BC, ADIFF, BMP, ANEU, GFR, MG ####[place] [address] Urea nitrogen [Mass/Vol] 13.0 mg/dL Normal 8.0-22.0 [facility] Comment on above: Performed By: #### C BC, ADIFF, BMP, ANEU, GFR, MG ####[place] [address] CBCon 10-05-2024 Erythrocyte distribution width (RBC) [Ratio] 24.9 % High 11.5-15.5 [facility] Comment on above: Performed By: #### C BC, ADIFF, BMP, ANEU, GFR, MG ####[place] [address] Hematocrit (Bld) [Volume fraction] 32.0 % Low 40.0-52.0 [facility] Comment on above: Performed By: #### C BC, ADIFF, BMP, ANEU, GFR, MG ####[place] [address] Hgb 10.7 G/dL Low 13.0-17.5 [facility] Comment on above: Performed By: #### C BC, ADIFF, BMP, ANEU, GFR, MG ####[place] [address] MCH (RBC) [Entitic mass] 28.7 pg Normal 27.0-33.0 [facility] Comment on above: Performed By: #### C BC, ADIFF, BMP, ANEU, GFR, MG ####[place] [address] MCHC 33.4 G/dL Normal 32.0-36.0 [facility] Comment on above: Performed By: #### C BC, ADIFF, BMP, ANEU, GFR, MG ####[place] [address] MCV (RBC) [Entitic vol] 85.9 fL Normal 81.0-100.0 [facility] Comment on above: Performed By: #### C BC, ADIFF, BMP, ANEU, GFR, MG ####[place] [address] Platelet 242 10 3/mcL Normal 150-450 [facility] Comment on above: Performed By: #### C BC, ADIFF, BMP, ANEU, GFR, MG ####[place] [address] Platelet mean volume (Bld) [Entitic vol] 9.3 fL Normal 6.4-10.5 [facility] Comment on above: Performed By: #### C BC, ADIFF, BMP, ANEU, GFR, MG ####[place] [address] RBC 3.73 10 6/mcL Low 4.50-6.00 [facility] Comment on above: Performed By: #### C BC, ADIFF, BMP, ANEU, GFR, MG ####[place] [address] WBC 15.3 10 3/mcL High 4.5-10.8 [facility] Comment on above: Performed By: #### C BC, ADIFF, BMP, ANEU, GFR, MG ####[place] [address] Michi 10-05-2024 Potassium [Moles/Vol] 4.4 mmol/L Normal 3.5-5.[address] [facility] Comment on above: Performed By: #### K ####[place] [address] MGon 10-05-2024 Magnesium [Mass/Vol] 1.7 mg/dL Normal 1.6-2.[address] [facility] Comment on above: Performed By: #### C BC, ADIFF, BMP, ANEU, GFR, MG ####[address] [address] XR CHEST 1 VIEWon 10-05-2024 XR CHEST 1 VIEW Normal [facility] XR CHEST 1 VIEW Normal [facility] .Auto Diffon 10-04-2024 Basophil, Absolute 0.1 10 3/mcL Normal 0.0-0.[address] [facility] Comment on above: Performed By: #### A DIFF, ANEU, GFR, CBC, CMP ####[address] [address] Basophils/100 WBC (Bld) 0.4 % Normal 0.0-2.5 [facility] Comment on above: Performed By: #### A DIFF, ANEU, GFR, CBC, CMP ####[address] [address] Eosinophil, Absolute 0.1 10 3/mcL Normal 0.0-0.7 [facility] Comment on above: Performed By: #### A DIFF, ANEU, GFR, CBC, CMP ####[address] [address] Eosinophils/100 WBC (Bld) 0.3 % Normal 0.0-6.0 [facility] Comment on above: Performed By: #### A DIFF, ANEU, GFR, CBC, CMP ####[address] [address] Lymphocyte, Absolute 1.9 10 3/mcL Normal 0.9-4.3 [facility] Comment on above: Performed By: #### A DIFF, ANEU, GFR, CBC, CMP ####[address] [address] Lymphocytes/100 WBC (Bld) 10.4 % Low 20.0-40.0 [facility] Comment on above: Performed By: #### A DIFF, ANEU, GFR, CBC, CMP ####[address] [address] Monocyte, Absolute 0.8 10 3/mcL Normal 0.1-1.[address] [facility] Comment on above: Performed By: #### A DIFF, ANEU, GFR, CBC, CMP ####[address] [address] Monocytes/100 WBC (Bld) 4.5 % Normal 2.0-13.0 [facility] Comment on above: Performed By: #### A DIFF, ANEU, GFR, CBC, CMP ####[address] [address] Neutrophils/100 WBC (Bld) 84.4 % High 50.0-75.0 [facility] Comment on above: Performed By: #### A DIFF, ANEU, GFR, CBC, CMP ####[address] [address] Basophil, Absolute 0.2 10 3/mcL Normal 0.0-0.[address] [facility] Comment on above: Performed By: #### A MINH, GFR, CMP, ADIFF, CBC ####[address] [address] Basophils/100 WBC (Bld) 1.0 % Normal 0.0-2.5 [facility] Comment on above: Performed By: #### A MINH, GFR, CMP, ADIFF, CBC ####[address] [address] Eosinophil, Absolute 0.0 10 3/mcL Normal 0.0-0.7 [facility] Comment on above: Performed By: #### A MINH, GFR, CMP, ADIFF, CBC ####[address] [address] Eosinophils/100 WBC (Bld) 0.3 % Normal 0.0-6.0 [facility] Comment on above: Performed By: #### A MINH, GFR, CMP, ADIFF, CBC ####[address] [address] Lymphocyte, Absolute 1.2 10 3/mcL Normal 0.9-4.3 [facility] Comment on above: Performed By: #### A MINH, GFR, CMP, ADIFF, CBC ####[address] [address] Lymphocytes/100 WBC (Bld) 7.9 % Low 20.0-40.0 [facility] Comment on above: Performed By: #### A MINH, GFR, CMP, ADIFF, CBC ####[address] [address] Monocyte, Absolute 0.9 10 3/mcL Normal 0.1-1.[address] [facility] Comment on above: Performed By: #### A MINH, GFR, CMP, ADIFF, CBC ####[address] [address] Monocytes/100 WBC (Bld) 5.6 % Normal 2.0-13.0 [facility] Comment on above: Performed By: #### A MINH, GFR, CMP, ADIFF, CBC ####[address] [address] Neutrophils/100 WBC (Bld) 85.2 % High 50.0-75.0 [facility] Comment on above: Performed By: #### A MINH, GFR, CMP, ADIFF, CBC ####[address] [address] .GFRon 10-04-2024 GFR/1.73 sq M.predicted among non-blacks MDRD (S/P/Bld) [Vol rate/Area] mL/min/{1.73_m2} [facility] Comment on above: Result Comment: Stag es of Chronic Kidney Disease (CKD)Stage Description eGFR(ml/min/1.73 sq.m.)CKD 1 Normal kidney function or >=90 normal kindney function with possible kidney damage (ex. Proteinuria)CKD 2 Kidney damage with mild loss 60-89 of kidney functionCKD 3a Mild to moderate loss of kidney 45-59 functionCKD 3b Moderate to severe loss of 30-44 of kindey function CKD 4 Severe loss of kidney function 15-29CKD 5 Kidney failure <15Note: (go live 2024) the eGFR calculation was updated to the KD-EPI creatinine equation without a race factor to calculate theeGFR results. Performed By: #### A DIFF, ANEU, GFR, CBC, CMP ####[address] [address] GFR/1.73 sq M.predicted among non-blacks MDRD (S/P/Bld) [Vol rate/Area] mL/min/{1.73_m2} Normal [facility] Comment on above: Result Comment: Stag es of Chronic Kidney Disease (CKD)Stage Description eGFR(ml/min/1.73 sq.m.)CKD 1 Normal kidney function or >=90 normal kindney function with possible kidney damage (ex. Proteinuria)CKD 2 Kidney damage with mild loss 60-89 of kidney functionCKD 3a Mild to moderate loss of kidney 45-59 functionCKD 3b Moderate to severe loss of 30-44 of kindey function CKD 4 Severe loss of kidney function 15-29CKD 5 Kidney failure <15Note: (go live 2024) the eGFR calculation was updated to the KD-EPI creatinine equation without a race factor to calculate theeGFR results. Performed By: #### A MINH, GFR, CMP, ADIFF, CBC ####[place] [address] .NEUABSon 10-04-2024 Neutrophil, Absolute 15.4 10 3/mcL High 2.3-8.1 [facility] Comment on above: Performed By: #### A DIFF, ANEU, GFR, CBC, CMP ####[place] [address] Neutrophil, Absolute 13.3 10 3/mcL High 2.3-8.1 [facility] Comment on above: Performed By: #### A MINH, GFR, CMP, ADIFF, CBC ####[place] [address] BGon 10-04-2024 Base excess Calc (Bld) [Moles/Vol] -0.5000 mmol/L Normal [facility] Comment on above: Performed By: #### B G ####[place] [address] CO2 [Moles/Vol] 23.0 mmol/L Normal 22.0-30.0 [facility] Comment on above: Performed By: #### B G ####[place] [address] HCO3 (Bld) [Moles/Vol] 22.1 mmol/L Normal 21.0-29.0 [facility] Comment on above: Performed By: #### B G ####[place] [phone] Oxygen (Bld) [Partial pressure] 110.0 mm[Hg] High 74.0-108.0 [facility] Comment on above: Performed By: #### B G ####[place] [address] Oxygen saturation in Blood 98.4 % High 92.0-96.0 [facility] Comment on above: Performed By: #### B G ####[address] [address] pCO2 29.9 mmHg Low 32.0-46.0 [facility] Comment on above: Performed By: #### B G ####[place] [id number] pH (Bld) 7.487 [pH] High 7.380-7.46 0 [facility] Comment on above: Performed By: #### B G ####[address] [address] Base excess Calc (Bld) [Moles/Vol] -3.6000 mmol/L Normal [facility] Comment on above: Performed By: #### B G ####[place] [id number] CO2 [Moles/Vol] 19.8 mmol/L Low 22.0-30.0 [facility] Comment on above: Performed By: #### B G ####[address] [address] HCO3 (Bld) [Moles/Vol] 18.9 mmol/L Low 21.0-29.0 [facility] Comment on above: Performed By: #### B G ####[address] [address] Oxygen (Bld) [Partial pressure] 91.1 mm[Hg] Normal 74.0-108.0 [facility] Comment on above: Performed By: #### B G ####[place] [address] Oxygen saturation in Blood 97.3 % High 92.0-96.0 [facility] Comment on above: Performed By: #### B G ####[place] [address] pCO2 27.0 mmHg Low 32.0-46.0 [facility] Comment on above: Performed By: #### B G ####[place] [address] pH (Bld) 7.464 [pH] High 7.380-7.46 0 [facility] Comment on above: Performed By: #### B G ####[place] [address] CAIONon 10-04-2024 Calcium Ionized 1.11 mmol/L Low 1.12-1.32 [facility] Comment on above: Performed By: #### C AION ####[place] [address] CBCon 10-04-2024 Erythrocyte distribution width (RBC) [Ratio] 22.2 % High 11.5-15.5 [facility] Comment on above: Performed By: #### A DIFF, ANEU, GFR, CBC, CMP ####[place] [address] Hematocrit (Bld) [Volume fraction] 32.2 % Low 40.0-52.0 [facility] Comment on above: Performed By: #### A DIFF, ANEU, GFR, CBC, CMP ####[place] [address] Hgb 10.7 G/dL Low 13.0-17.5 [facility] Comment on above: Performed By: #### A DIFF, ANEU, GFR, CBC, CMP ####[place] [address] MCH (RBC) [Entitic mass] 28.3 pg Normal 27.0-33.0 [facility] Comment on above: Performed By: #### A DIFF, ANEU, GFR, CBC, CMP ####[place] [address] MCHC 33.3 G/dL Normal 32.0-36.0 [facility] Comment on above: Performed By: #### A DIFF, ANEU, GFR, CBC, CMP ####[place] [address] MCV (RBC) [Entitic vol] 85.0 fL Normal 81.0-100.0 [facility] Comment on above: Performed By: #### A DIFF, ANEU, GFR, CBC, CMP ####[place] [address] Platelet 253 10 3/mcL Normal 150-450 [facility] Comment on above: Performed By: #### A DIFF, ANEU, GFR, CBC, CMP ####[place] [address] Platelet mean volume (Bld) [Entitic vol] 9.5 fL Normal 6.4-10.5 [facility] Comment on above: Performed By: #### A DIFF, ANEU, GFR, CBC, CMP ####[place] [address] RBC 3.79 10 6/mcL Low 4.50-6.00 [facility] Comment on above: Performed By: #### A DIFF, ANEU, GFR, CBC, CMP ####[place] [address] WBC 18.3 10 3/mcL High 4.5-10.8 [facility] Comment on above: Performed By: #### A DIFF, ANEU, GFR, CBC, CMP ####[place] [address] Erythrocyte distribution width (RBC) [Ratio] 20.9 % High 11.5-15.5 [facility] Comment on above: Performed By: #### A MINH, GFR, CMP, ADIFF, CBC ####[place] [address] Hematocrit (Bld) [Volume fraction] 32.0 % Low 40.0-52.0 [facility] Comment on above: Performed By: #### A MINH, GFR, CMP, ADIFF, CBC ####[address] [address] Hgb 10.5 G/dL Low 13.0-17.5 [facility] Comment on above: Performed By: #### A MINH, GFR, CMP, ADIFF, CBC ####[place] [address] MCH (RBC) [Entitic mass] 28.3 pg Normal 27.0-33.0 [facility] Comment on above: Performed By: #### A MINH, GFR, CMP, ADIFF, CBC ####[place] [address] MCHC 32.9 G/dL Normal 32.0-36.0 [facility] Comment on above: Performed By: #### A MINH, GFR, CMP, ADIFF, CBC ####[place] [address] MCV (RBC) [Entitic vol] 86.1 fL Normal 81.0-100.0 [facility] Comment on above: Performed By: #### A MINH, GFR, CMP, ADIFF, CBC ####[place] [address] Platelet 180 10 3/mcL Normal 150-450 [facility] Comment on above: Performed By: #### A MINH, GFR, CMP, ADIFF, CBC ####[place] [address] Platelet mean volume (Bld) [Entitic vol] 10.2 fL Normal 6.4-10.5 [facility] Comment on above: Performed By: #### A MINH, GFR, CMP, ADIFF, CBC ####[place] [address] RBC 3.72 10 6/mcL Low 4.50-6.00 [facility] Comment on above: Performed By: #### A MINH, GFR, CMP, ADIFF, CBC ####[place] [address] WBC 15.6 10 3/mcL High 4.5-10.8 [facility] Comment on above: Performed By: #### A MINH, GFR, CMP, ADIFF, CBC ####[address] [address] CBLon 10-04-2024 CBL Normal [facility] CMPon 10-04-2024 Albumin Level 2.1 G/dL Low 3.2-4.8 [facility] Comment on above: Performed By: #### A DIFF, ANEU, GFR, CBC, CMP ####[place] [address] Albumin/Globulin [Mass ratio] 0.5 {ratio} Low 0.9-1.6 [facility] Comment on above: Performed By: #### A DIFF, ANEU, GFR, CBC, CMP ####[place] [address] ALP [Catalytic activity/Vol] 110 U/L Normal 38-126 [facility] Comment on above: Performed By: #### A DIFF, ANEU, GFR, CBC, CMP ####[place] [address] ALT/SGPT <7 Low 12-55 [facility] Comment on above: Performed By: #### A DIFF, ANEU, GFR, CBC, CMP ####[place] [address] AST [Catalytic activity/Vol] 39 U/L High 8-34 [facility] Comment on above: Performed By: #### A DIFF, ANEU, GFR, CBC, CMP ####[place] [address] Bili Total 2.30 mg/dL High 0.20-1.20 [facility] Comment on above: Result Comment: Use of this assay is not recommended for patients undergoing treatment with eltrombopag due to the potential for falsely elevated results. Performed By: #### A DIFF, ANEU, GFR, CBC, CMP ####[place] [address] BUN/Creatinine Ratio 23.0 ratio High 10.0-22.[address] [facility] Comment on above: Performed By: #### A DIFF, ANEU, GFR, CBC, CMP ####[place] [address] Calcium [Mass/Vol] 7.6 mg/dL Low 8.7-10.4 [facility] Comment on above: Performed By: #### A DIFF, ANEU, GFR, CBC, CMP ####[place] [phone] Chloride [Moles/Vol] 106 mmol/L Normal 98-[address] [facility] Comment on above: Performed By: #### A DIFF, ANEU, GFR, CBC, CMP ####[place] [phone] CO2 [Moles/Vol] 20 mmol/L Low 22-32 [facility] Comment on above: Performed By: #### A DIFF, ANEU, GFR, CBC, CMP ####[place] [address] Creatinine [Mass/Vol] 0.74 mg/dL Normal 0.60-1.[address] [facility] Comment on above: Result Comment: Test ing performed on [employer] analyzer using enzymatic creatinine methodology. Performed By: #### A DIFF, ANEU, GFR, CBC, CMP ####[place] [address] Electrolyte Balance 11.0 mEq/L Normal 4.0-15.0 [facility] Comment on above: Performed By: #### A DIFF, ANEU, GFR, CBC, CMP ####[place] [phone] Globulin 4.0 G/dL Normal 2.5-4.2 [facility] Comment on above: Performed By: #### A DIFF, ANEU, GFR, CBC, CMP ####[place] [address] Glucose [Mass/Vol] 106 mg/dL Normal 70-110 [facility] Comment on above: Performed By: #### A DIFF, ANEU, GFR, CBC, CMP ####[place] [address] Potassium [Moles/Vol] 4.3 mmol/L Normal 3.5-5.[address] [facility] Comment on above: Performed By: #### A DIFF, ANEU, GFR, CBC, CMP ####[address] [address] Sodium [Moles/Vol] 137 mmol/L Normal 136-145 [facility] Comment on above: Performed By: #### A DIFF, ANEU, GFR, CBC, CMP ####[address] [address] Total Protein 6.1 G/dL Normal 5.7-8.2 [facility] Comment on above: Performed By: #### A DIFF, ANEU, GFR, CBC, CMP ####[place] [phone] Urea nitrogen [Mass/Vol] 17.0 mg/dL Normal 8.0-22.0 [facility] Comment on above: Performed By: #### A DIFF, ANEU, GFR, CBC, CMP ####[place] [address] Albumin Level 2.1 G/dL Low 3.2-4.8 [facility] Comment on above: Performed By: #### A MINH, GFR, CMP, ADIFF, CBC ####[place] [phone] Albumin/Globulin [Mass ratio] 0.6 {ratio} Low 0.9-1.6 [facility] Comment on above: Performed By: #### A MINH, GFR, CMP, ADIFF, CBC ####[address] [address] ALP [Catalytic activity/Vol] 114 U/L Normal 38-126 [facility] Comment on above: Performed By: #### A MINH, GFR, CMP, ADIFF, CBC ####[address] [address] ALT/SGPT <8 Low 12-55 [facility] Comment on above: Performed By: #### A MINH, GFR, CMP, ADIFF, CBC ####[address] [address] AST [Catalytic activity/Vol] 51 U/L High 8-34 [facility] Comment on above: Performed By: #### A MINH, GFR, CMP, ADIFF, CBC ####[address] [address] Bili Total 2.00 mg/dL High 0.20-1.20 [facility] Comment on above: Result Comment: Use of this assay is not recommended for patients undergoing treatment with eltrombopag due to the potential for falsely elevated results. Performed By: #### A MINH, GFR, CMP, ADIFF, CBC ####[place] [address] BUN/Creatinine Ratio 29.5 ratio High 10.0-22.[address] [facility] Comment on above: Performed By: #### A MINH, GFR, CMP, ADIFF, CBC ####[place] [address] Calcium [Mass/Vol] 7.6 mg/dL Low 8.7-10.4 [facility] Comment on above: Performed By: #### A MINH, GFR, CMP, ADIFF, CBC ####[place] [address] Chloride [Moles/Vol] 108 mmol/L Normal 98-[address] [facility] Comment on above: Performed By: #### A MINH, GFR, CMP, ADIFF, CBC ####[place] [address] CO2 [Moles/Vol] 23 mmol/L Normal 22-32 [facility] Comment on above: Performed By: #### A MINH, GFR, CMP, ADIFF, CBC ####[place] [address] Creatinine [Mass/Vol] 0.78 mg/dL Normal 0.60-1.[address] [facility] Comment on above: Result Comment: Test ing performed on [employer] analyzer using enzymatic creatinine methodology. Performed By: #### A MINH, GFR, CMP, ADIFF, CBC ####[place] [address] Electrolyte Balance 7.0 mEq/L Normal 4.0-15.0 [facility] Comment on above: Performed By: #### A MINH, GFR, CMP, ADIFF, CBC ####[place] [phone] Globulin 3.8 G/dL Normal 2.5-4.2 [facility] Comment on above: Performed By: #### A MINH, GFR, CMP, ADIFF, CBC ####[address] [address] Glucose [Mass/Vol] 134 mg/dL High 70-110 [facility] Comment on above: Performed By: #### A MINH, GFR, CMP, ADIFF, CBC ####[address] [address] Potassium [Moles/Vol] 3.3 mmol/L Low 3.5-5.[address] [facility] Comment on above: Performed By: #### A MINH, GFR, CMP, ADIFF, CBC ####[address] [address] Sodium [Moles/Vol] 138 mmol/L Normal 136-145 [facility] Comment on above: Performed By: #### A MINH, GFR, CMP, ADIFF, CBC ####[address] [address] Total Protein 5.9 G/dL Normal 5.7-8.2 [facility] Comment on above: Performed By: #### A MINH, GFR, CMP, ADIFF, CBC ####[address] [address] Urea nitrogen [Mass/Vol] 23.0 mg/dL High 8.0-22.0 [facility] Comment on above: Performed By: #### A MINH, GFR, CMP, ADIFF, CBC ####[address] [address] Final Surgical Pathology Rep [facility] 10-04-2024 Final Surgical Pathology Report Normal [facility] Final Surgical Pathology Report Event Display: SP Gross All parts labelled with patient name and [id number] Received in formalin labelled right groin lymph nodes Are 2 portions of yellow-busby to sadler soft tissue possible lymph nodes measuring 2.5 x 2 x 1 cm and 2.4 x 1.6 x 1.3 cm. Each portion of lymph node is bisected longitudinally. A1 A2 1 possible lymph node bisected, A3 A4 1 possible lymph node bisected. TS-4 Domingo Sethi, Pathologists' Harvest Worker (ASCP) Performed by TRACY VILLANUEVA MD:VERIFY; Authored Date: [facility] Final Surgical Pathology Report Event Display: SP Micro The microscopic examination is performed, except in the case of Gross Only. TRACY HAINES MD:VERIFY; Authored Date: [facility] Final Surgical Pathology Report Event Display: SP Specimen ARIGHT GROIN LYMPH NODES TRACY HAINES MD:VERIFY; Authored Date: [id number] [facility] Final Surgical Pathology Report Event Display: SP Disclaimer If ancillary studies were utilized, the following Laboratory Developed Test (LDT) disclaimer will apply: Under CLIA requirements, [facility] is qualified to perform high complexity testing. For all ancillary stains, positive and negative controls stain appropriately. Performance characteristics of immunohistochemical and chromogenic in-situ hybridization tests have been determined by [facility]. These tests are used for clinical purposes, They should not be regarded as investigational or for research. TRACY HAINES MD:VERIFY; Authored Date: [id number] [facility] Final Surgical Pathology Report Event Display: SP Signature Pathology Report verified by [facility] TRACY HAINES Sign out Date: 10/04/2024 11:27 Performing Lab: [facility], [address] [place] [address] Pathology Dept TRACY HAINES MD:VERIFY; Authored Date: [id number] [facility] Final Surgical Pathology Report Event Display: SP Dx RIGHT GROIN LYMPH NODES: - 2 LYMPH NODES WITH REACTIVE LYMPHOID HYPERPLASIA - NEGATIVE FOR MALIGNANCY TRACY HAINES MD:VERIFY; Authored Date: [id number] [facility] Michi 10-04-2024 Potassium [Moles/Vol] 4.7 mmol/L Normal 3.5-5.[address] [facility] Comment on above: Performed By: #### K ####[address] [address] Potassium [Moles/Vol] 3.9 mmol/L Normal 3.5-5.[address] [facility] Comment on above: Performed By: #### K ####[address] [address] LABORATORYOrdered By: Cecile Canseco on 10-04-2024 Blood Glucose Testing Reason Routine (10/04/24 9:56 PM) [facility] LABORATORYOrdered By: Olinda aldridge on 10-04-2024 Blood Glucose Testing Reason Routine (10/04/24 11:19 AM) [facility] Blood Glucose Testing Reason Routine (10/04/24 8:05 AM) [facility] LABORATORYOrdered By: Lisa Riggs on 10-04-2024 Calcium Ionized 1.11 mmol/L Low 1.12 - 1.32 mmol/L Main Rapid Comm SS MGon 10-04-2024 Magnesium [Mass/Vol] 1.4 mg/dL Low 1.6-2.[address] [facility] MAIN Comment on above: Performed By: #### M G ####[address] [address] XR CHEST 1 VIEWon 10-04-2024 XR CHEST 1 VIEW Normal [facility] XR CHEST 1 VIEW Normal [facility] XR CHEST 1 VIEW Normal [facility] .Auto Diffon 10-03-2024 Basophil, Absolute 0.0 10 3/mcL Normal 0.0-0.[address] [facility] Comment on above: Performed By: #### C BC, GFR, ADIFF, CMP, ANEU ####[address] [address] Basophils/100 WBC (Bld) 0.2 % Normal 0.0-2.5 [facility] Comment on above: Performed By: #### C BC, GFR, ADIFF, CMP, ANEU ####[address] [address] Eosinophil, Absolute 0.0 10 3/mcL Normal 0.0-0.7 [facility] Comment on above: Performed By: #### C BC, GFR, ADIFF, CMP, ANEU ####[address] [address] Eosinophils/100 WBC (Bld) 0.3 % Normal 0.0-6.0 [facility] Comment on above: Performed By: #### C BC, GFR, ADIFF, CMP, ANEU ####[address] [address] Lymphocyte, Absolute 1.0 10 3/mcL Normal 0.9-4.3 [facility] Comment on above: Performed By: #### C BC, GFR, ADIFF, CMP, ANEU ####[address] [address] Lymphocytes/100 WBC (Bld) 14.9 % Low 20.0-40.0 [facility] Comment on above: Performed By: #### C BC, GFR, ADIFF, CMP, ANEU ####[address] [address] Monocyte, Absolute 0.4 10 3/mcL Normal 0.1-1.[address] [facility] Comment on above: Performed By: #### C BC, GFR, ADIFF, CMP, ANEU ####[address] [address] Monocytes/100 WBC (Bld) 5.9 % Normal 2.0-13.0 [facility] Comment on above: Performed By: #### C BC, GFR, ADIFF, CMP, ANEU ####[address] [address] Neutrophils/100 WBC (Bld) 78.7 % High 50.0-75.0 [facility] Comment on above: Performed By: #### C BC, GFR, ADIFF, CMP, ANEU ####[address] [address] .GFRon 06-18-2025 GFR/1.73 sq M.predicted among non-blacks MDRD (S/P/Bld) [Vol rate/Area] mL/min/{1.73_m2} [facility] MAIN Comment on above: Result Comment: Stag es of Chronic Kidney Disease (CKD)Stage Description eGFR(ml/min/1.73 sq.m.)CKD 1 Normal kidney function or >=90 normal kindney function with possible kidney damage (ex. Proteinuria)CKD 2 Kidney damage with mild loss 60-89 of kidney functionCKD 3a Mild to moderate loss of kidney 45-59 functionCKD 3b Moderate to severe loss of 30-44 of kindey function CKD 4 Severe loss of kidney function 15-29CKD 5 Kidney failure <15Note: ( live 05/22/2024) the eGFR calculation was updated to the KD-EPI creatinine equation without a race factor to calculate theeGFR results. Performed By: #### B MP, GFR ####[place] [address] Estimated Glomerular Filtration Rate 115 ml/min/1.73sqm Normal [facility] MAIN Comment on above: Result Comment: Stag es of Chronic Kidney Disease (CKD)Stage Description eGFR(ml/min/1.73 sq.m.)CKD 1 Normal kidney function or >=90 normal kindney function with possible kidney damage (ex. Proteinuria)CKD 2 Kidney damage with mild loss 60-89 of kidney functionCKD 3a Mild to moderate loss of kidney 45-59 functionCKD 3b Moderate to severe loss of 30-44 of kindey function CKD 4 Severe loss of kidney function 15-29CKD 5 Kidney failure <15Note: ( live 05/22/2024) the eGFR calculation was updated to the KD-EPI creatinine equation without a race factor to calculate theeGFR results. Performed By: #### C BC, GFR, ADIFF, CMP, ANEU ####[place] [address] .NEUABSon 10-03-2024 Neutrophil, Absolute 5.1 10 3/mcL Normal 2.3-8.1 [facility] MAIN Comment on above: Performed By: #### C BC, GFR, ADIFF, CMP, ANEU ####[place] [id number] BGon 10-03-2024 Base excess Calc (Bld) [Moles/Vol] -2.6000 mmol/L Normal [facility] Comment on above: Performed By: #### H GBRUPA HCTOR, BG ####[address] [address] CO2 [Moles/Vol] 22.6 mmol/L Normal 22.0-30.0 [facility] Comment on above: Performed By: #### H GBRUPA HCTOR, BG ####[place] [address] HCO3 (Bld) [Moles/Vol] 21.5 mmol/L Normal 21.0-29.0 [facility] Comment on above: Performed By: #### H GBRUPA HCTOR, BG ####[place] [address] Oxygen (Bld) [Partial pressure] 163.3 mm[Hg] High 74.0-108.0 [facility] Comment on above: Performed By: #### H GBRUPA HCTOR, BG ####[place] [address] Oxygen saturation in Blood 99.0 % High 92.0-96.0 [facility] Comment on above: Performed By: #### H GBRUPA HCTOR, BG ####[place] [address] pCO2 34.3 mmHg Normal 32.0-46.0 [facility] Comment on above: Performed By: #### H GBRUPA HCTOR, BG ####[place] [phone] pH (Bld) 7.416 [pH] Normal 7.380-7.46 0 [facility] Comment on above: Performed By: #### H GBRUPA HCTOR, BG ####[place] [phone] Base excess Calc (Bld) [Moles/Vol] -2.3000 mmol/L Normal [facility] Comment on above: Performed By: #### B G ####[address] [address] CO2 [Moles/Vol] 23.7 mmol/L Normal 22.0-30.0 [facility] Comment on above: Performed By: #### B G ####[address] [address] HCO3 (Bld) [Moles/Vol] 22.5 mmol/L Normal 21.0-29.0 [facility] Comment on above: Performed By: #### B G ####[place] [phone] Oxygen (Bld) [Partial pressure] 115.7 mm[Hg] High 74.0-108.0 [facility] Comment on above: Performed By: #### B G ####[place] [phone] Oxygen saturation in Blood 98.2 % High 92.0-96.0 [facility] Comment on above: Performed By: #### B G ####[place] [phone] pCO2 38.4 mmHg Normal 32.0-46.0 [facility] Comment on above: Performed By: #### B G ####[address] [address] pH (Bld) 7.386 [pH] Normal 7.380-7.46 0 [facility] Comment on above: Performed By: #### B G ####[address] [address] Base excess Calc (Bld) [Moles/Vol] -0.4000 mmol/L Normal [facility] Comment on above: Performed By: #### B G ####[address] [address] CO2 [Moles/Vol] 24.0 mmol/L Normal 22.0-30.0 [facility] Comment on above: Performed By: #### B G ####[address] [address] HCO3 (Bld) [Moles/Vol] 23.0 mmol/L Normal 21.0-29.0 [facility] Comment on above: Performed By: #### B G ####[address] [address] Oxygen (Bld) [Partial pressure] 275.2 mm[Hg] High 74.0-108.0 [facility] Comment on above: Performed By: #### B G ####[address] [address] Oxygen saturation in Blood 99.8 % High 92.0-96.0 [facility] Comment on above: Performed By: #### B G ####[address] [address] pCO2 32.1 mmHg Normal 32.0-46.0 [facility] Comment on above: Performed By: #### B G ####[address] [address] pH (Bld) 7.473 [pH] High 7.380-7.46 0 [facility] Comment on above: Performed By: #### B G ####[address] [address] Base excess Calc (Bld) [Moles/Vol] -1.5000 mmol/L Normal [facility] Comment on above: Performed By: #### B G ####[address] [address] CO2 [Moles/Vol] 23.0 mmol/L Normal 22.0-30.0 [facility] Comment on above: Performed By: #### B G ####[address] [address] HCO3 (Bld) [Moles/Vol] 22.1 mmol/L Normal 21.0-29.0 [facility] Comment on above: Performed By: #### B G ####[address] [address] Oxygen (Bld) [Partial pressure] 167.8 mm[Hg] High 74.0-108.0 [facility] Comment on above: Performed By: #### B G ####[place] [phone] Oxygen saturation in Blood 99.3 % High 92.0-96.0 [facility] Comment on above: Performed By: #### B G ####[address] [address] pCO2 31.8 mmHg Low 32.0-46.0 [facility] Comment on above: Performed By: #### B G ####[place] [address] pH (Bld) 7.459 [pH] Normal 7.380-7.46 0 [facility] Comment on above: Performed By: #### B G ####[address] [address] BMPon 10-03-2024 BUN/Creatinine Ratio 28.6 ratio High 10.0-22.[address] [facility] Comment on above: Order Comment: Call results to Dr. Messina Performed By: #### B MP, GFR ####[place] [address] Calcium [Mass/Vol] 8.0 mg/dL Low 8.7-10.4 [facility] MA[facility] Comment on above: Order Comment: Call results to Dr. Messina Performed By: #### B MP, GFR ####[place] [phone] Chloride [Moles/Vol] 108 mmol/L Normal 98-[address] [facility] Comment on above: Order Comment: Call results to Dr. Messina Performed By: #### B MP, GFR ####[place] [phone] CO2 [Moles/Vol] 22 mmol/L Normal 22-32 [facility] Comment on above: Order Comment: Call results to Dr. Messina Performed By: #### B MP, GFR ####[place] [phone] Creatinine [Mass/Vol] 0.84 mg/dL Normal 0.60-1.[address] [facility] MAIN Comment on above: Order Comment: Call results to Dr. Messina Result Comment: Test ing performed on [employer] analyzer using enzymatic creatinine methodology. Performed By: #### B MP, GFR ####[address] [address] Electrolyte Balance 10.0 mEq/L Normal 4.0-15.0 [facility] MAIN Comment on above: Order Comment: Call results to Dr. Messina Performed By: #### B MP, GFR ####[address] [address] Glucose [Mass/Vol] 158 mg/dL High 70-110 [facility] MA[facility] Comment on above: Order Comment: Call results to Dr. Messina Performed By: #### B MP, GFR ####[address] [address] Potassium [Moles/Vol] 3.9 mmol/L Normal 3.5-5.[address] [facility] Comment on above: Order Comment: Call results to Dr. Messina Performed By: #### B MP, GFR ####[place] [address] Sodium [Moles/Vol] 140 mmol/L Normal 136-145 [facility] Comment on above: Order Comment: Call results to Dr. Messina Performed By: #### B MP, GFR ####[place] [address] Urea nitrogen [Mass/Vol] 24.0 mg/dL High 8.0-22.0 [facility] Comment on above: Order Comment: Call results to Dr. Messina Performed By: #### B MP, GFR ####[address] [address] CAFon 10-03-2024 CAF Normal [facility] CBCon 10-03-2024 Erythrocyte distribution width (RBC) [Ratio] 19.3 % High 11.5-15.5 [facility] Comment on above: Performed By: #### C BC, GFR, ADIFF, CMP, ANEU ####[place] [address] Hematocrit (Bld) [Volume fraction] 21.6 % Low 40.0-52.0 [facility] Comment on above: Performed By: #### C BC, GFR, ADIFF, CMP, ANEU ####[address] [address] Hgb 7.2 G/dL Low 13.0-17.5 [facility] Comment on above: Performed By: #### C BC, GFR, ADIFF, CMP, ANEU ####[place] [address] MCH (RBC) [Entitic mass] 27.7 pg Normal 27.0-33.0 [facility] Comment on above: Performed By: #### C BC, GFR, ADIFF, CMP, ANEU ####[place] [address] MCHC 33.1 G/dL Normal 32.0-36.0 [facility] Comment on above: Performed By: #### C BC, GFR, ADIFF, CMP, ANEU ####[place] [address] MCV (RBC) [Entitic vol] 83.6 fL Normal 81.0-100.0 [facility] Comment on above: Performed By: #### C BC, GFR, ADIFF, CMP, ANEU ####[place] [address] Platelet 51 10 3/mcL Low 150-450 [facility] Comment on above: Performed By: #### C BC, GFR, ADIFF, CMP, ANEU ####[place] [address] Platelet mean volume (Bld) [Entitic vol] 10.2 fL Normal 6.4-10.5 [facility] Comment on above: Performed By: #### C BC, GFR, ADIFF, CMP, ANEU ####[place] [address] RBC 2.59 10 6/mcL Low 4.50-6.00 [facility] Comment on above: Performed By: #### C BC, GFR, ADIFF, CMP, ANEU ####[place] [address] WBC 6.4 10 3/mcL Normal 4.5-10.8 [facility] Comment on above: Performed By: #### C BC, GFR, ADIFF, CMP, ANEU ####[place] [phone] CMPon 10-03-2024 Albumin Level 2.4 G/dL Low 3.2-4.8 [facility] Comment on above: Performed By: #### C BC, GFR, ADIFF, CMP, ANEU ####[place] [address] Albumin/Globulin [Mass ratio] 0.8 {ratio} Low 0.9-1.6 [facility] Comment on above: Performed By: #### C BC, GFR, ADIFF, CMP, ANEU ####[place] [address] ALP [Catalytic activity/Vol] 62 U/L Normal 38-126 [facility] Comment on above: Performed By: #### C BC, GFR, ADIFF, CMP, ANEU ####[place] [address] ALT [Catalytic activity/Vol] 11 U/L Low 12-55 [facility] Comment on above: Performed By: #### C BC, GFR, ADIFF, CMP, ANEU ####[place] [address] AST [Catalytic activity/Vol] 64 U/L High 8-34 [facility] Comment on above: Performed By: #### C BC, GFR, ADIFF, CMP, ANEU ####[place] [address] Bili Total 2.60 mg/dL High 0.20-1.20 [facility] Comment on above: Result Comment: Use of this assay is not recommended for patients undergoing treatment with eltrombopag due to the potential for falsely elevated results. Performed By: #### C BC, GFR, ADIFF, CMP, ANEU ####[place] [address] BUN/Creatinine Ratio 27.2 ratio High 10.0-22.[address] [facility] Comment on above: Performed By: #### C BC, GFR, ADIFF, CMP, ANEU ####[place] [address] Calcium [Mass/Vol] 7.5 mg/dL Low 8.7-10.4 [facility] Comment on above: Performed By: #### C BC, GFR, ADIFF, CMP, ANEU ####[address] [address] Chloride [Moles/Vol] 110 mmol/L Normal 98-[address] [facility] Comment on above: Performed By: #### C BC, GFR, ADIFF, CMP, ANEU ####[address] [address] CO2 [Moles/Vol] 26 mmol/L Normal 22-32 [facility] Comment on above: Performed By: #### C BC, GFR, ADIFF, CMP, ANEU ####[place] [phone] Creatinine [Mass/Vol] 0.92 mg/dL Normal 0.60-1.[address] [facility] Comment on above: Result Comment: Test ing performed on [employer] analyzer using enzymatic creatinine methodology. Performed By: #### C BC, GFR, ADIFF, CMP, ANEU ####[address] [address] Electrolyte Balance 7.0 mEq/L Normal 4.0-15.0 [facility] Comment on above: Performed By: #### C BC, GFR, ADIFF, CMP, ANEU ####[address] [address] Globulin 3.0 G/dL Normal 2.5-4.2 [facility] Comment on above: Performed By: #### C BC, GFR, ADIFF, CMP, ANEU ####[address] [address] Glucose [Mass/Vol] 114 mg/dL High 70-110 [facility] Comment on above: Performed By: #### C BC, GFR, ADIFF, CMP, ANEU ####[address] [address] Potassium [Moles/Vol] 3.6 mmol/L Normal 3.5-5.[address] [facility] Comment on above: Performed By: #### C BC, GFR, ADIFF, CMP, ANEU ####[place] [address] Sodium [Moles/Vol] 143 mmol/L Normal 136-145 [facility] Comment on above: Performed By: #### C BC, GFR, ADIFF, CMP, ANEU ####[place] [address] Total Protein 5.4 G/dL Low 5.7-8.2 [facility] Comment on above: Performed By: #### C BC, GFR, ADIFF, CMP, ANEU ####[place] [address] Urea nitrogen [Mass/Vol] 25.0 mg/dL High 8.0-22.0 [facility] Comment on above: Performed By: #### C BC, GFR, ADIFF, CMP, ANEU ####[place] [address] HCTORon 10-03-2024 Hematocrit (Bld) [Volume fraction] 26.0 % Low 42.0-52.0 [facility] Comment on above: Performed By: #### H GBOR, HCTOR, BG ####[place] [address] HGBORon 10-03-2024 Hemoglobin OR 8.7 G/dL Low 13.0-17.5 [facility] Comment on above: Performed By: #### H GBOR, HCTOR, BG ####[place] [address] HHon 10-03-2024 Hematocrit (Bld) [Volume fraction] 21.6 % Low 40.0-52.0 [facility] Comment on above: Performed By: #### H H ####[place] [address] Hgb 7.1 G/dL Low 13.0-17.5 [facility] Comment on above: Performed By: #### H H ####[place] [address] Michi 10-03-2024 Potassium [Moles/Vol] 3.3 mmol/L Low 3.5-5.[address] [facility] Comment on above: Performed By: #### M Mack, K ####[place] [address] Potassium [Moles/Vol] 4.0 mmol/L Normal 3.5-5.[address] [facility] Comment on above: Performed By: #### K ####[place] [address] LABORATORYOrdered By: Reba Sanchez on 10-03-2024 Hematocrit (Bld) [Volume fraction] 26.0 % Low 42.0 - 52.0 % Chemistry S Hemoglobin OR 8.7 G/dL Low 13.0 - 17.5 G/dL Chemistry S MGon 10-03-2024 Magnesium [Mass/Vol] 2.4 mg/dL Normal 1.6-2.[address] [facility] Comment on above: Performed By: #### Nedra Giron ####[place] [address] Magnesium [Mass/Vol] 1.4 mg/dL Low 1.6-2.[address] [facility] Comment on above: Performed By: #### M Mack, K ####[place] [address] XR CHEST 1 VIEWon 10-03-2024 XR CHEST 1 VIEW Normal [facility] .Auto Diffon 10-02-2024 Basophil, Absolute 0.0 10 3/mcL Normal 0.0-0.[address] [facility] Comment on above: Performed By: #### A DIFF, MORPH, ANEU, CBC, TEGCK ####[address] [address] Basophils/100 WBC (Bld) 0.3 % Normal 0.0-2.5 [facility] Comment on above: Performed By: #### A DIFF, MORPH, ANEU, CBC, TEGCK ####[address] [address] Eosinophil, Absolute 0.0 10 3/mcL Normal 0.0-0.7 [facility] Comment on above: Performed By: #### A DIFF, MORPH, ANEU, CBC, TEGCK ####[address] [address] Eosinophils/100 WBC (Bld) 0.2 % Normal 0.0-6.0 [facility] Comment on above: Performed By: #### A DIFF, MORPH, ANEU, CBC, TEGCK ####[address] [address] Lymphocyte, Absolute 0.8 10 3/mcL Low 0.9-4.3 [facility] Comment on above: Performed By: #### A DIFF, MORPH, ANEU, CBC, TEGCK ####[address] [address] Lymphocytes/100 WBC (Bld) 11.9 % Low 20.0-40.0 [facility] Comment on above: Performed By: #### A DIFF, MORPH, ANEU, CBC, TEGCK ####[address] [address] Monocyte, Absolute 0.4 10 3/mcL Normal 0.1-1.[address] [facility] Comment on above: Performed By: #### A DIFF, MORPH, ANEU, CBC, TEGCK ####[address] [address] Monocytes/100 WBC (Bld) 5.3 % Normal 2.0-13.0 [facility] Comment on above: Performed By: #### A DIFF, MORPH, ANEU, CBC, TEGCK ####[address] [address] Neutrophils/100 WBC (Bld) 82.3 % High 50.0-75.0 [facility] Comment on above: Performed By: #### A DIFF, MORPH, ANEU, CBC, TEGCK ####[address] [address] Basophil, Absolute 0.0 10 3/mcL Normal 0.0-0.[address] [facility] Comment on above: Performed By: #### A MINH, CBC, ADIFF, TEGCK ####[address] [address] Basophils/100 WBC (Bld) 0.1 % Normal 0.0-2.5 [facility] Comment on above: Performed By: #### A MINH, CBC, ADIFF, TEGCK ####[address] [address] Eosinophil, Absolute 0.0 10 3/mcL Normal 0.0-0.7 [facility] Comment on above: Performed By: #### A MINH, CBC, ADIFF, TEGCK ####[address] [address] Eosinophils/100 WBC (Bld) 0.0 % Normal 0.0-6.0 [facility] Comment on above: Performed By: #### A MINH, CBC, ADIFF, TEGCK ####[address] [address] Lymphocyte, Absolute 0.8 10 3/mcL Low 0.9-4.3 [facility] Comment on above: Performed By: #### A MINH, CBC, ADIFF, TEGCK ####[address] [address] Lymphocytes/100 WBC (Bld) 6.5 % Low 20.0-40.0 [facility] Comment on above: Performed By: #### A MINH, CBC, ADIFF, TEGCK ####[address] [address] Monocyte, Absolute 0.6 10 3/mcL Normal 0.1-1.[address] [facility] Comment on above: Performed By: #### A MINH, CBC, ADIFF, TEGCK ####[address] [address] Monocytes/100 WBC (Bld) 5.0 % Normal 2.0-13.0 [facility] Comment on above: Performed By: #### A MINH, CBC, ADIFF, TEGCK ####[address] [address] Neutrophils/100 WBC (Bld) 88.4 % High 50.0-75.0 [facility] Comment on above: Performed By: #### A MINH, CBC, ADIFF, TEGCK ####[address] [address] Basophil, Absolute 0.0 10 3/mcL Normal 0.0-0.[address] [facility] Comment on above: Performed By: #### A MINH, ADIFF, CAION, BMP, CBC, GFR, PHOS, MG ####[address] [address] Basophils/100 WBC (Bld) 0.2 % Normal 0.0-2.5 [facility] Comment on above: Performed By: #### A MINH, ADIFF, CAION, BMP, CBC, GFR, PHOS, MG ####[address] [address] Eosinophil, Absolute 0.0 10 3/mcL Normal 0.0-0.7 [facility] Comment on above: Performed By: #### A MINH, ADIFF, CAION, BMP, CBC, GFR, PHOS, MG ####[address] [address] Eosinophils/100 WBC (Bld) 0.1 % Normal 0.0-6.0 [facility] Comment on above: Performed By: #### A MINH, ADIFF, CAION, BMP, CBC, GFR, PHOS, MG ####[address] [address] Lymphocyte, Absolute 1.1 10 3/mcL Normal 0.9-4.3 [facility] Comment on above: Performed By: #### A MINH, ADIFF, CAION, BMP, CBC, GFR, PHOS, MG ####[address] [address] Lymphocytes/100 WBC (Bld) 6.7 % Low 20.0-40.0 [facility] Comment on above: Performed By: #### A MINH, ADIFF, CAION, BMP, CBC, GFR, PHOS, MG ####[address] [address] Monocyte, Absolute 0.8 10 3/mcL Normal 0.1-1.[address] [facility] Comment on above: Performed By: #### A MINH, ADIFF, CAION, BMP, CBC, GFR, PHOS, MG ####[address] [address] Monocytes/100 WBC (Bld) 4.4 % Normal 2.0-13.0 [facility] Comment on above: Performed By: #### A MINH, ADIFF, CAION, BMP, CBC, GFR, PHOS, MG ####[address] [address] Neutrophils/100 WBC (Bld) 88.6 % High 50.0-75.0 [facility] Comment on above: Performed By: #### A MINH, ADIFF, CAION, BMP, CBC, GFR, PHOS, MG ####[address] [address] Basophil, Absolute 0.0 10 3/mcL Normal 0.0-0.[address] [facility] Comment on above: Performed By: #### G FR, CBC, MORPH, CMP, MG, ANEU, ADIFF ####[address] [address] Basophils/100 WBC (Bld) 0.3 % Normal 0.0-2.5 [facility] Comment on above: Performed By: #### G FR, CBC, MORPH, CMP, MG, ANEU, ADIFF ####[address] [address] Eosinophil, Absolute 0.0 10 3/mcL Normal 0.0-0.7 [facility] Comment on above: Performed By: #### G FR, CBC, MORPH, CMP, MG, ANEU, ADIFF ####[address] [address] Eosinophils/100 WBC (Bld) 0.3 % Normal 0.0-6.0 [facility] Comment on above: Performed By: #### G FR, CBC, MORPH, CMP, MG, ANEU, ADIFF ####[address] [address] Lymphocyte, Absolute 0.9 10 3/mcL Normal 0.9-4.3 [facility] Comment on above: Performed By: #### G FR, CBC, MORPH, CMP, MG, ANEU, ADIFF ####[address] [address] Lymphocytes/100 WBC (Bld) 6.7 % Low 20.0-40.0 [facility] Comment on above: Performed By: #### G FR, CBC, MORPH, CMP, MG, ANEU, ADIFF ####[place] [id number] [place] [id number] Monocyte, Absolute 0.4 10 3/mcL Normal 0.1-1.[address] [facility] Comment on above: Performed By: #### G FR, CBC, MORPH, CMP, MG, ANEU, ADIFF ####[place] [id number] [place] [id number] Monocytes/100 WBC (Bld) 2.9 % Normal 2.0-13.0 [facility] Comment on above: Performed By: #### G FR, CBC, MORPH, CMP, MG, ANEU, ADIFF ####[place] [id number] [place] [address] Neutrophils/100 WBC (Bld) 89.8 % High 50.0-75.0 [facility] Comment on above: Performed By: #### G FR, CBC, MORPH, CMP, MG, ANEU, ADIFF ####[address] [address] .GFRon 10-02-2024 Estimated Glomerular Filtration Rate 114 ml/min/1.73sqm [facility] Comment on above: Result Comment: Stag es of Chronic Kidney Disease (CKD)Stage Description eGFR(ml/min/1.73 sq.m.)CKD 1 Normal kidney function or >=90 normal kindney function with possible kidney damage (ex. Proteinuria)CKD 2 Kidney damage with mild loss 60-89 of kidney functionCKD 3a Mild to moderate loss of kidney 45-59 functionCKD 3b Moderate to severe loss of 30-44 of kindey function CKD 4 Severe loss of kidney function 15-29CKD 5 Kidney failure <15Note: (go live 2024) the eGFR calculation was updated to the KD-EPI creatinine equation without a race factor to calculate theeGFR results. Performed By: #### B MP, GFR ####[address] [address] Estimated Glomerular Filtration Rate 119 ml/min/1.73sqm [facility] MAIN Comment on above: Result Comment: Stag es of Chronic Kidney Disease (CKD)Stage Description eGFR(ml/min/1.73 sq.m.)CKD 1 Normal kidney function or >=90 normal kindney function with possible kidney damage (ex. Proteinuria)CKD 2 Kidney damage with mild loss 60-89 of kidney functionCKD 3a Mild to moderate loss of kidney 45-59 functionCKD 3b Moderate to severe loss of 30-44 of kindey function CKD 4 Severe loss of kidney function 15-29CKD 5 Kidney failure <15Note: ( live 05/22/2024) the eGFR calculation was updated to the KD-EPI creatinine equation without a race factor to calculate theeGFR results. Performed By: #### A MINH, ADIFF, CAION, BMP, CBC, GFR, PHOS, MG ####[address] [address] GFR/1.73 sq M.predicted among non-blacks MDRD (S/P/Bld) [Vol rate/Area] mL/min/{1.73_m2} [facility] MAIN Comment on above: Result Comment: Stag es of Chronic Kidney Disease (CKD)Stage Description eGFR(ml/min/1.73 sq.m.)CKD 1 Normal kidney function or >=90 normal kindney function with possible kidney damage (ex. Proteinuria)CKD 2 Kidney damage with mild loss 60-89 of kidney functionCKD 3a Mild to moderate loss of kidney 45-59 functionCKD 3b Moderate to severe loss of 30-44 of kindey function CKD 4 Severe loss of kidney function 15-29CKD 5 Kidney failure <15Note: ( live 05/22/2024) the eGFR calculation was updated to the KD-EPI creatinine equation without a race factor to calculate theeGFR results. Performed By: #### G FR, CBC, MORPH, CMP, MG, ANEU, ADIFF ####[address] [address] .Morphon 10-02-2024 Anisocytosis Ql (Bld) 1+ Normal [facility] MAIN Comment on above: Performed By: #### A DIFF, MORPH, ANEU, CBC, TEGCK ####[address] [address] Ovalocytes 1+ Normal [facility] MAIN Comment on above: Performed By: #### A DIFF, MORPH, ANEU, CBC, TEGCK ####[place] [address] Platelet Estimate Grt Decreased Normal [facility] MAIN Comment on above: Performed By: #### A DIFF, MORPH, ANEU, CBC, TEGCK ####[place] [address] Poik 1+ Normal [facility] MAIN Comment on above: Performed By: #### A DIFF, MORPH, ANEU, CBC, TEGCK ####[place] [address] Polychrom 1+ Normal [facility] MAIN Comment on above: Performed By: #### A DIFF, MORPH, ANEU, CBC, TEGCK ####[place] [address] Anisocytosis Ql (Bld) 1+ Normal [facility] MAIN Comment on above: Performed By: #### G FR, CBC, MORPH, CMP, MG, ANEU, ADIFF ####[place] [address] Platelet Estimate Decreased [facility] MAIN Comment on above: Performed By: #### G FR, CBC, MORPH, CMP, MG, ANEU, ADIFF ####[place] [address] Polychrom 1+ [facility] MAIN Comment on above: Performed By: #### G FR, CBC, MORPH, CMP, MG, ANEU, ADIFF ####[place] [address] .NEUABSon 10-02-2024 Neutrophil, Absolute 5.7 10 3/mcL Normal 2.3-8.1 [facility] MAIN Comment on above: Performed By: #### A DIFF, MORPH, ANEU, CBC, TEGCK ####[place] [address] Neutrophil, Absolute 10.8 10 3/mcL High 2.3-8.1 [facility] MAIN Comment on above: Performed By: #### A MINH, CBC, ADIFF, TEGCK ####[place] [id number] Neutrophil, Absolute 15.2 10 3/mcL High 2.3-8.1 [facility] MAIN Comment on above: Performed By: #### A MINH, ADIFF, CAION, BMP, CBC, GFR, PHOS, MG ####[place] [id number] Neutrophil, Absolute 12.2 10 3/mcL High 2.3-8.1 [facility] MAIN Comment on above: Performed By: #### G FR, CBC, MORPH, CMP, MG, ANEU, ADIFF ####[place] [address] APTTon 10-02-2024 aPTT Coag (Bld) [Time] 37.6 s High 25.0-35.0 [facility] MAIN Comment on above: Result Comment: For Heparin anticoagulation therapy, the recommendedtherapeutic range is: 54-77 seconds (APTT Correlationwith Anti-Xa therapeutic range of 0.3-0.7 units/ml).PLEASE REFERENCE THE PHARMACY PROTOCOL FOR DOSING. Performed By: #### P RO, FIB, APTT ####[place] [address] BGon 10-02-2024 Base excess Calc (Bld) [Moles/Vol] -0.3000 mmol/L Normal [facility] MAIN Comment on above: Performed By: #### B G ####[place] [address] CO2 [Moles/Vol] 25.1 mmol/L Normal 22.0-30.0 [facility] MAIN Comment on above: Performed By: #### B G ####[place] [address] HCO3 (Bld) [Moles/Vol] 24.0 mmol/L Normal 21.0-29.0 [facility] MAIN Comment on above: Performed By: #### B G ####[place] [address] Oxygen (Bld) [Partial pressure] 167.2 mm[Hg] High 74.0-108.0 [facility] MAIN Comment on above: Performed By: #### B G ####[place] [address] Oxygen saturation in Blood 99.1 % High 92.0-96.0 [facility] MAIN Comment on above: Performed By: #### B G ####[address] [address] pCO2 37.2 mmHg Normal 32.0-46.0 [facility] MAIN Comment on above: Performed By: #### B G ####[place] [phone] pH (Bld) 7.427 [pH] Normal 7.380-7.46 0 [facility] MAIN Comment on above: Performed By: #### Perry G ####[place] [address] Base excess Calc (Bld) [Moles/Vol] -2.5000 mmol/L Normal [facility] MAIN Comment on above: Performed By: #### Perry G ####[place] [address] CO2 [Moles/Vol] 22.7 mmol/L Normal 22.0-30.0 [facility] MAIN Comment on above: Performed By: #### Perry G ####[place] [address] HCO3 (Bld) [Moles/Vol] 21.6 mmol/L Normal 21.0-29.0 [facility] MAIN Comment on above: Performed By: #### Perry G ####[place] [address] Oxygen (Bld) [Partial pressure] 190.7 mm[Hg] High 74.0-108.0 [facility] MAIN Comment on above: Performed By: #### B G ####[place] [address] Oxygen saturation in Blood 99.4 % High 92.0-96.0 [facility] MAIN Comment on above: Performed By: #### Perry G ####[place] [phone] pCO2 34.6 mmHg Normal 32.0-46.0 [facility] MAIN Comment on above: Performed By: #### Perry G ####[address] [address] pH (Bld) 7.414 [pH] Normal 7.380-7.46 0 [facility] MAIN Comment on above: Performed By: #### B G ####[address] [address] Base excess Calc (Bld) [Moles/Vol] -0.5000 mmol/L Normal [facility] MAIN Comment on above: Performed By: #### B G ####[place] [phone] CO2 [Moles/Vol] 25.9 mmol/L Normal 22.0-30.0 [facility] MAIN Comment on above: Performed By: #### B G ####[place] [address] HCO3 (Bld) [Moles/Vol] 24.6 mmol/L Normal 21.0-29.0 [facility] MAIN Comment on above: Performed By: #### B G ####[place] [address] Oxygen (Bld) [Partial pressure] 318.1 mm[Hg] High 74.0-108.0 [facility] MAIN Comment on above: Performed By: #### B G ####[place] [address] Oxygen saturation in Blood 99.4 % High 92.0-96.0 [facility] MAIN Comment on above: Performed By: #### B G ####[place] [address] pCO2 42.4 mmHg Normal 32.0-46.0 [facility] MAIN Comment on above: Performed By: #### B G ####[address] [address] pH (Bld) 7.382 [pH] Normal 7.380-7.46 0 [facility] MAIN Comment on above: Performed By: #### B G ####[place] [phone] BGRPon 10-02-2024 Base Excess - POC -4.7 mmol/L Normal [facility] MAIN Comment on above: Performed By: #### C JOSH, GLURP, HGBRP, HCTRP, BGRP, CLRP, KRP, NARP ####[place] [phone] CO2 [Moles/Vol] 22.6 mmol/L Normal 22.0-30.0 [facility] MAIN Comment on above: Performed By: #### C JOSH, GLURP, HGBRP, HCTRP, BGRP, CLRP, KRP, NARP ####[place] [address] HCO3 (Bld) [Moles/Vol] 21.3 mmol/L Normal 21.0-29.0 [facility] MAIN Comment on above: Performed By: #### C JOSH, GLURP, HGBRP, HCTRP, BGRP, CLRP, KRP, NARP ####[place] [address] Oxygen saturation in Blood 99.7 % High 92.0-96.0 [facility] MAIN Comment on above: Performed By: #### C JOSH, GLURP, HGBRP, HCTRP, BGRP, CLRP, KRP, NARP ####[place] [address] PCO2 - POC 43.1 mmHg Normal 32.0-46.0 [facility] MAIN Comment on above: Performed By: #### C JOSH, GLURP, HGBRP, HCTRP, BGRP, CLRP, KRP, NARP ####[place] [address] pH (poct) - POC 7.311 Low 7.380-7.46 0 [facility] MAIN Comment on above: Performed By: #### C JOSH, GLURP, HGBRP, HCTRP, BGRP, CLRP, KRP, NARP ####[place] [phone] PO2 - POC 441.2 mmHg High 74.0-108.0 [facility] MAIN Comment on above: Performed By: #### C JOSH, GLURP, HGBRP, HCTRP, BGRP, CLRP, KRP, NARP ####[address] [address] Base Excess - POC -2.9 mmol/L Normal [facility] MAIN Comment on above: Performed By: #### K RP, HCTRP, NARP, CARP, CLRP, GLURP, BGRP, HGBRP ####[address] [address] CO2 [Moles/Vol] 24.3 mmol/L Normal 22.0-30.0 [facility] MAIN Comment on above: Performed By: #### K RP, HCTRP, NARP, CARP, CLRP, GLURP, BGRP, HGBRP ####[place] [phone] HCO3 (Bld) [Moles/Vol] 22.9 mmol/L Normal 21.0-29.0 [facility] MAIN Comment on above: Performed By: #### K RP, HCTRP, NARP, CARP, CLRP, GLURP, BGRP, HGBRP ####[place] [address] Oxygen saturation in Blood 99.6 % High 92.0-96.0 [facility] MA[facility] Comment on above: Performed By: #### K RP, HCTRP, NARP, CARP, CLRP, GLURP, BGRP, HGBRP ####[place] [phone] PCO2 - POC 45.0 mmHg Normal 32.0-46.0 [facility] MAIN Comment on above: Performed By: #### K RP, HCTRP, NARP, CARP, CLRP, GLURP, BGRP, HGBRP ####[place] [phone] pH (poct) - POC 7.325 Low 7.380-7.46 0 [facility] MAIN Comment on above: Performed By: #### K RP, HCTRP, NARP, CARP, CLRP, GLURP, BGRP, HGBRP ####[place] [phone] PO2 - POC 377.2 mmHg High 74.0-108.0 [facility] MAIN Comment on above: Performed By: #### K RP, HCTRP, NARP, CARP, CLRP, GLURP, BGRP, HGBRP ####[place] [phone] Base Excess - POC -3.3 mmol/L Normal [facility] MAIN Comment on above: Performed By: #### K RP, BGRP, CLRP, GLURP, HCTRP, NARP, HGBRP, CARP ####[place] [phone] CO2 [Moles/Vol] 23.9 mmol/L Normal 22.0-30.0 [facility] MAIN Comment on above: Performed By: #### K RP, BGRP, CLRP, GLURP, HCTRP, NARP, HGBRP, CARP ####[place] [phone] HCO3 (Bld) [Moles/Vol] 22.5 mmol/L Normal 21.0-29.0 [facility] MAIN Comment on above: Performed By: #### K RP, BGRP, CLRP, GLURP, HCTRP, NARP, HGBRP, CARP ####[place] [address] Oxygen saturation in Blood 99.6 % High 92.0-96.0 [facility] MAIN Comment on above: Performed By: #### K RP, BGRP, CLRP, GLURP, HCTRP, NARP, HGBRP, CARP ####[place] [address] PCO2 - POC 44.7 mmHg Normal 32.0-46.0 [facility] MAIN Comment on above: Performed By: #### K RP, BGRP, CLRP, GLURP, HCTRP, NARP, HGBRP, CARP ####[place] [phone] pH (poct) - POC 7.320 Low 7.380-7.46 0 [facility] MAIN Comment on above: Performed By: #### K RP, BGRP, CLRP, GLURP, HCTRP, NARP, HGBRP, CARP ####[place] [phone] PO2 - POC 494.7 mmHg High 74.0-108.0 [facility] MAIN Comment on above: Performed By: #### K RP, BGRP, CLRP, GLURP, HCTRP, NARP, HGBRP, CARP ####[place] [phone] Base Excess - POC -2.1 mmol/L Normal [facility] MAIN Comment on above: Performed By: #### H GBRP, KRP, GLURP, HCTRP, NARP, CLRP, CARP, BGRP ####[place] [phone] CO2 [Moles/Vol] 23.7 mmol/L Normal 22.0-30.0 [facility] MAIN Comment on above: Performed By: #### H GBRP, KRP, GLURP, HCTRP, NARP, CLRP, CARP, BGRP ####[place] [address] HCO3 (Bld) [Moles/Vol] 22.6 mmol/L Normal 21.0-29.0 [facility] MAIN Comment on above: Performed By: #### H GBRP, KRP, GLURP, HCTRP, NARP, CLRP, CARP, BGRP ####[place] [address] Oxygen saturation in Blood 99.7 % High 92.0-96.0 [facility] MA[facility] Comment on above: Performed By: #### H GBRP, KRP, GLURP, HCTRP, NARP, CLRP, CARP, BGRP ####[place] [address] PCO2 - POC 37.6 mmHg Normal 32.0-46.0 [facility] MA[facility] Comment on above: Performed By: #### H GBRP, KRP, GLURP, HCTRP, NARP, CLRP, CARP, BGRP ####[place] [phone] pH (poct) - POC 7.396 Normal 7.380-7.46 0 [facility] MAIN Comment on above: Performed By: #### H GBRP, KRP, GLURP, HCTRP, NARP, CLRP, CARP, BGRP ####[place] [address] PO2 - POC 507.3 mmHg High 74.0-108.0 [facility] MA[facility] Comment on above: Performed By: #### H GBRP, KRP, GLURP, HCTRP, NARP, CLRP, CARP, BGRP ####[place] [address] Base Excess - POC -0.6 mmol/L Normal [facility] MAIN Comment on above: Performed By: #### C JOSH, HCTRP, CLRP, BGRP, KRP, HGBRP, GLURP, NARP ####[place] [address] CO2 [Moles/Vol] 24.0 mmol/L Normal 22.0-30.0 [facility] MA[facility] Comment on above: Performed By: #### C JOSH, HCTRP, CLRP, BGRP, KRP, HGBRP, GLURP, NARP ####[place] [address] HCO3 (Bld) [Moles/Vol] 23.0 mmol/L Normal 21.0-29.0 [facility] MAIN Comment on above: Performed By: #### C JOSH, HCTRP, CLRP, BGRP, KRP, HGBRP, GLURP, NARP ####[place] [address] Oxygen saturation in Blood 99.7 % High 92.0-96.0 [facility] Comment on above: Performed By: #### C JOSH, HCTRP, CLRP, BGRP, KRP, HGBRP, GLURP, NARP ####[place] [address] PCO2 - POC 32.7 mmHg Normal 32.0-46.0 [facility] MA[facility] Comment on above: Performed By: #### C JOSH, HCTRP, CLRP, BGRP, KRP, HGBRP, GLURP, NARP ####[place] [address] pH (poct) - POC 7.465 High 7.380-7.46 0 [facility] MA[facility] Comment on above: Performed By: #### C JOSH, HCTRP, CLRP, BGRP, KRP, HGBRP, GLURP, NARP ####[place] [phone] PO2 - POC 524.6 mmHg High 74.0-108.0 [facility] MA[facility] Comment on above: Performed By: #### C JOSH, HCTRP, CLRP, BGRP, KRP, HGBRP, GLURP, NARP ####[place] [address] Base Excess - POC -1.6 mmol/L Normal [facility] MAIN Comment on above: Performed By: #### C JOSH, CLRP, KRP, HGBRP, NARP, BGRP, GLURP, HCTRP ####[place] [phone] CO2 [Moles/Vol] 24.3 mmol/L Normal 22.0-30.0 [facility] Comment on above: Performed By: #### C JOSH, CLRP, KRP, HGBRP, NARP, BGRP, GLURP, HCTRP ####[place] [phone] HCO3 (Bld) [Moles/Vol] 23.1 mmol/L Normal 21.0-29.0 [facility] Comment on above: Performed By: #### C JOSH, CLRP, KRP, HGBRP, NARP, BGRP, GLURP, HCTRP ####[place] [address] Oxygen saturation in Blood 99.7 % High 92.0-96.0 [facility] Comment on above: Performed By: #### C JOSH, CLRP, KRP, HGBRP, NARP, BGRP, GLURP, HCTRP ####[place] [address] PCO2 - POC 38.2 mmHg Normal 32.0-46.0 [facility] Comment on above: Performed By: #### C JOSH, CLRP, KRP, HGBRP, NARP, BGRP, GLURP, HCTRP ####[place] [phone] pH (poct) - POC 7.399 Normal 7.380-7.46 0 [facility] Comment on above: Performed By: #### C JOSH, CLRP, KRP, HGBRP, NARP, BGRP, GLURP, HCTRP ####[place] [address] PO2 - POC 511.0 mmHg High 74.0-108.0 [facility] Comment on above: Performed By: #### C JOSH, CLRP, KRP, HGBRP, NARP, BGRP, GLURP, HCTRP ####[place] [phone] Base Excess - POC -4.9 mmol/L Normal [facility] MA[facility] Comment on above: Performed By: #### G LURP, CLRP, BGRP, KRP, CARP, HGBRP, NARP, HCTRP ####[address] [address] CO2 [Moles/Vol] 23.8 mmol/L Normal 22.0-30.0 [facility] Comment on above: Performed By: #### G LURP, CLRP, BGRP, KRP, CARP, HGBRP, NARP, HCTRP ####[place] [phone] HCO3 (Bld) [Moles/Vol] 22.2 mmol/L Normal 21.0-29.0 [facility] Comment on above: Performed By: #### G LURP, CLRP, BGRP, KRP, CARP, HGBRP, NARP, HCTRP ####[place] [phone] Oxygen saturation in Blood 94.3 % Normal 92.0-96.0 [facility] Comment on above: Performed By: #### G LURP, CLRP, BGRP, KRP, CARP, HGBRP, NARP, HCTRP ####[place] [phone] PCO2 - POC 50.8 mmHg High 32.0-46.0 [facility] Comment on above: Performed By: #### G LURP, CLRP, BGRP, KRP, CARP, HGBRP, NARP, HCTRP ####[place] [phone] pH (poct) - POC 7.259 Low 7.380-7.46 0 [facility] Comment on above: Performed By: #### G LURP, CLRP, BGRP, KRP, CARP, HGBRP, NARP, HCTRP ####[place] [address] PO2 - POC 87.7 mmHg Normal 74.0-108.0 [facility] Comment on above: Performed By: #### G LURP, CLRP, BGRP, KRP, CARP, HGBRP, NARP, HCTRP ####[place] [phone] Base Excess - POC -6.2 mmol/L Normal [facility] Comment on above: Performed By: #### C JOSH, GLURP, BGRP, HCTRP, NARP, CLRP, HGBRP, KRP ####[address] [address] CO2 [Moles/Vol] 22.1 mmol/L Normal 22.0-30.0 [facility] Comment on above: Performed By: #### C JOSH, GLURP, BGRP, HCTRP, NARP, CLRP, HGBRP, KRP ####[place] [phone] HCO3 (Bld) [Moles/Vol] 20.7 mmol/L Low 21.0-29.0 [facility] Comment on above: Performed By: #### C JOSH, GLURP, BGRP, HCTRP, NARP, CLRP, HGBRP, KRP ####[place] [address] Oxygen saturation in Blood 92.8 % Normal 92.0-96.0 [facility] Comment on above: Performed By: #### C JOSH, GLURP, BGRP, HCTRP, NARP, CLRP, HGBRP, KRP ####[place] [address] PCO2 - POC 46.6 mmHg High 32.0-46.0 [facility] Comment on above: Performed By: #### C JOSH, GLURP, BGRP, HCTRP, NARP, CLRP, HGBRP, KRP ####[place] [address] pH (poct) - POC 7.265 Low 7.380-7.46 0 [facility] Comment on above: Performed By: #### C JOSH, GLURP, BGRP, HCTRP, NARP, CLRP, HGBRP, KRP ####[place] [address] PO2 - POC 80.4 mmHg Normal 74.0-108.0 [facility] Comment on above: Performed By: #### C JOSH, GLURP, BGRP, HCTRP, NARP, CLRP, HGBRP, KRP ####[place] [address] BMPon 10-02-2024 BUN/Creatinine Ratio 20.4 ratio Normal 10.0-22.[address] [facility] Comment on above: Performed By: #### B MP, GFR ####[place] [address] Calcium [Mass/Vol] 7.3 mg/dL Low 8.7-10.4 [facility] Comment on above: Performed By: #### B MP, GFR ####[place] [phone] Chloride [Moles/Vol] 108 mmol/L Normal 98-[address] [facility] Comment on above: Performed By: #### B MP, GFR ####[place] [phone] CO2 [Moles/Vol] 24 mmol/L Normal 22-32 [facility] Comment on above: Performed By: #### B MP, GFR ####[address] [address] Creatinine [Mass/Vol] 0.93 mg/dL Normal 0.60-1.[address] [facility] Comment on above: Result Comment: Test ing performed on [employer] analyzer using enzymatic creatinine methodology. Performed By: #### B MP, GFR ####[address] [address] Electrolyte Balance 12.0 mEq/L Normal 4.0-15.0 [facility] Comment on above: Performed By: #### B MP, GFR ####[address] [address] Glucose [Mass/Vol] 113 mg/dL High 70-110 [facility] Comment on above: Performed By: #### B MP, GFR ####[address] [address] Potassium [Moles/Vol] 3.7 mmol/L Normal 3.5-5.[address] [facility] Comment on above: Performed By: #### B MP, GFR ####[address] [address] Sodium [Moles/Vol] 144 mmol/L Normal 136-145 [facility] Comment on above: Performed By: #### B MP, GFR ####[address] [address] Urea nitrogen [Mass/Vol] 19.0 mg/dL Normal 8.0-22.0 [facility] Comment on above: Performed By: #### B MP, GFR ####[address] [address] BUN/Creatinine Ratio 22.7 ratio High 10.0-22.[address] [facility] Comment on above: Performed By: #### A MINH, DON, MARI, BMP, CBC, GFR, PHOS, MG ####[address] [address] Calcium [Mass/Vol] 7.3 mg/dL Low 8.7-10.4 [facility] Comment on above: Performed By: #### A MINH, ADIFF, CAION, BMP, CBC, GFR, PHOS, MG ####[address] [address] Chloride [Moles/Vol] 107 mmol/L Normal 98-[address] [facility] Comment on above: Performed By: #### A MINH, ADIFF, CAION, BMP, CBC, GFR, PHOS, MG ####[address] [address] CO2 [Moles/Vol] 24 mmol/L Normal 22-32 [facility] Comment on above: Performed By: #### A MINH, ADIFF, CAION, BMP, CBC, GFR, PHOS, MG ####[place] [phone] Creatinine [Mass/Vol] 0.88 mg/dL Normal 0.60-1.[address] [facility] Comment on above: Result Comment: Test ing performed on [employer] analyzer using enzymatic creatinine methodology. Performed By: #### A MINH, ADIFF, CAION, BMP, CBC, GFR, PHOS, MG ####[address] [address] Electrolyte Balance 14.0 mEq/L Normal 4.0-15.0 [facility] Comment on above: Performed By: #### A MINH, ADIFF, CAION, BMP, CBC, GFR, PHOS, MG ####[address] [address] Glucose [Mass/Vol] 98 mg/dL Normal 70-110 [facility] Comment on above: Performed By: #### A MINH, ADIFF, CAION, BMP, CBC, GFR, PHOS, MG ####[address] [address] Potassium [Moles/Vol] 4.0 mmol/L Normal 3.5-5.[address] [facility] Comment on above: Performed By: #### A MINH, ADIFF, CAION, BMP, CBC, GFR, PHOS, MG ####[address] [address] Sodium [Moles/Vol] 145 mmol/L Normal 136-145 [facility] Comment on above: Performed By: #### A MINH, ADIFF, CAION, BMP, CBC, GFR, PHOS, MG ####[place] [address] Urea nitrogen [Mass/Vol] 20.0 mg/dL Normal 8.0-22.0 [facility] Comment on above: Performed By: #### A MINH, ADIFF, CAION, BMP, CBC, GFR, PHOS, MG ####[place] [address] CAIONon 10-02-2024 Calcium Ionized 1.03 mmol/L Low 1.12-1.32 [facility] Comment on above: Performed By: #### A MINH, ADIFF, CAION, BMP, CBC, GFR, PHOS, MG ####[place] [address] CARPon 10-02-2024 Ionized Calcium - POC 1.10 mmol/L Low 1.12-1.32 [facility] Comment on above: Performed By: #### C JOSH, GLURP, HGBRP, HCTRP, BGRP, CLRP, KRP, NARP ####[place] [address] Ionized Calcium - POC 0.98 mmol/L Low 1.12-1.32 [facility] Comment on above: Performed By: #### K RP, HCTRP, NARP, CARP, CLRP, GLURP, BGRP, HGBRP ####[place] [address] Ionized Calcium - POC 0.99 mmol/L Low 1.12-1.32 [facility] Comment on above: Performed By: #### K RP, BGRP, CLRP, GLURP, HCTRP, NARP, HGBRP, CARP ####[place] [address] Ionized Calcium - POC 0.93 mmol/L Low 1.12-1.32 [facility] Comment on above: Performed By: #### H GBRP, KRP, GLURP, HCTRP, NARP, CLRP, CARP, BGRP ####[place] [address] Ionized Calcium - POC 0.96 mmol/L Low 1.12-1.32 [facility] Comment on above: Performed By: #### C JOSH, HCTRP, CLRP, BGRP, KRP, HGBRP, GLURP, NARP ####[place] [address] Ionized Calcium - POC 0.97 mmol/L Low 1.12-1.32 [facility] Comment on above: Performed By: #### C JOSH, CLRP, KRP, HGBRP, NARP, BGRP, GLURP, HCTRP ####[place] [address] Ionized Calcium - POC 1.03 mmol/L Low 1.12-1.32 [facility] Comment on above: Performed By: #### G LURP, CLRP, BGRP, KRP, CARP, HGBRP, NARP, HCTRP ####[place] [address] Ionized Calcium - POC 1.04 mmol/L Low 1.12-1.32 [facility] Comment on above: Performed By: #### C JOSH, GLURP, BGRP, HCTRP, NARP, CLRP, HGBRP, KRP ####[place] [address] CBCon 10-02-2024 Platelet 46 10 3/mcL Low 150-450 [facility] Comment on above: Performed By: #### A DIFF, MORPH, ANEU, CBC, TEGCK ####[place] [address] Platelet mean volume (Bld) [Entitic vol] 9.2 fL Normal 6.4-10.5 [facility] Comment on above: Performed By: #### A DIFF, MORPH, ANEU, CBC, TEGCK ####[place] [address] Erythrocyte distribution width (RBC) [Ratio] 19.2 % High 11.5-15.5 [facility] Comment on above: Performed By: #### A DIFF, MORPH, ANEU, CBC, TEGCK ####[place] [address] Hematocrit (Bld) [Volume fraction] 21.4 % Low 40.0-52.0 [facility] [facility] Comment on above: Performed By: #### A DIFF, MORPH, ANEU, CBC, TEGCK ####[place] [address] Hgb 7.1 G/dL Low 13.0-17.5 [facility] Comment on above: Performed By: #### A DIFF, MORPH, ANEU, CBC, TEGCK ####[place] [address] MCH (RBC) [Entitic mass] 27.6 pg Normal 27.0-33.0 [facility] Comment on above: Performed By: #### A DIFF, MORPH, ANEU, CBC, TEGCK ####[place] [address] MCHC 33.1 G/dL Normal 32.0-36.0 [facility] Comment on above: Performed By: #### A DIFF, MORPH, ANEU, CBC, TEGCK ####[place] [address] MCV (RBC) [Entitic vol] 83.5 fL Normal 81.0-100.0 [facility] Comment on above: Performed By: #### A DIFF, MORPH, ANEU, CBC, TEGCK ####[place] [address] RBC 2.57 10 6/mcL Low 4.50-6.00 [facility] Comment on above: Performed By: #### A DIFF, MORPH, ANEU, CBC, TEGCK ####[place] [address] WBC 6.9 10 3/mcL Normal 4.5-10.8 [facility] Comment on above: Performed By: #### A DIFF, MORPH, ANEU, CBC, TEGCK ####[place] [address] Erythrocyte distribution width (RBC) [Ratio] 20.2 % High 11.5-15.5 [facility] Comment on above: Performed By: #### A MINH, CBC, ADIFF, TEGCK ####[place] [address] Hematocrit (Bld) [Volume fraction] 19.8 % Low 40.0-52.0 [facility] Comment on above: Performed By: #### A MINH, CBC, ADIFF, TEGCK ####[place] [address] Hgb 6.4 G/dL Critically abnormal 13.0-17.5 [facility] Comment on above: Performed By: #### A MINH, CBC, ADIFF, TEGCK ####[place] [address] MCH (RBC) [Entitic mass] 27.0 pg Normal 27.0-33.0 [facility] Comment on above: Performed By: #### A MINH, CBC, ADIFF, TEGCK ####[place] [address] MCHC 32.3 G/dL Normal 32.0-36.0 [facility] Comment on above: Performed By: #### A MINH, CBC, ADIFF, TEGCK ####[place] [address] MCV (RBC) [Entitic vol] 83.3 fL Normal 81.0-100.0 [facility] Comment on above: Performed By: #### A MINH, CBC, ADIFF, TEGCK ####[place] [address] Platelet 54 10 3/mcL Low 150-450 [facility] Comment on above: Performed By: #### A MINH, CBC, ADIFF, TEGCK ####[place] [address] Platelet mean volume (Bld) [Entitic vol] 8.4 fL Normal 6.4-10.5 [facility] Comment on above: Performed By: #### A MINH, CBC, ADIFF, TEGCK ####[place] [address] RBC 2.37 10 6/mcL Low 4.50-6.00 [facility] Comment on above: Performed By: #### A MINH, CBC, ADIFF, TEGCK ####[place] [address] WBC 12.2 10 3/mcL High 4.5-10.8 [facility] Comment on above: Performed By: #### A MINH, CBC, ADIFF, TEGCK ####[place] [address] Erythrocyte distribution width (RBC) [Ratio] 19.3 % High 11.5-15.5 [facility] Comment on above: Performed By: #### A MINH, ADIFF, CAION, BMP, CBC, GFR, PHOS, MG ####[place] [address] Hematocrit (Bld) [Volume fraction] 26.7 % Low 40.0-52.0 [facility] Comment on above: Performed By: #### A MINH, ADIFF, CAION, BMP, CBC, GFR, PHOS, MG ####[place] [address] Hgb 8.5 G/dL Low 13.0-17.5 [facility] Comment on above: Performed By: #### A MINH, ADIFF, CAION, BMP, CBC, GFR, PHOS, MG ####[place] [address] MCH (RBC) [Entitic mass] 27.1 pg Normal 27.0-33.0 [facility] Comment on above: Performed By: #### A MINH, ADIFF, CAION, BMP, CBC, GFR, PHOS, MG ####[place] [address] MCHC 31.9 G/dL Low 32.0-36.0 [facility] Comment on above: Performed By: #### A MINH, ADIFF, CAION, BMP, CBC, GFR, PHOS, MG ####[place] [address] MCV (RBC) [Entitic vol] 85.1 fL Normal 81.0-100.0 [facility] Comment on above: Performed By: #### A MINH, ADIFF, CAION, BMP, CBC, GFR, PHOS, MG ####[address] [address] Platelet 72 10 3/mcL Low 150-450 [facility] Comment on above: Performed By: #### A MINH, ADIFF, CAION, BMP, CBC, GFR, PHOS, MG ####[address] [address] Platelet mean volume (Bld) [Entitic vol] 8.3 fL Normal 6.4-10.5 [facility] Comment on above: Performed By: #### A MINH, ADIFF, CAION, BMP, CBC, GFR, PHOS, MG ####[address] [address] RBC 3.14 10 6/mcL Low 4.50-6.00 [facility] Comment on above: Performed By: #### A MINH, ADIFF, CAION, BMP, CBC, GFR, PHOS, MG ####[address] [address] WBC 17.2 10 3/mcL High 4.5-10.8 [facility] Comment on above: Performed By: #### A MINH, ADIFF, CAION, BMP, CBC, GFR, PHOS, MG ####[address] [address] Platelet 54 10 3/mcL Low 150-450 [facility] Comment on above: Performed By: #### G FR, CBC, MORPH, CMP, MG, ANEU, ADIFF ####[address] [address] Platelet mean volume (Bld) [Entitic vol] 12.1 fL High 6.4-10.5 [facility] Comment on above: Performed By: #### G FR, CBC, MORPH, CMP, MG, ANEU, ADIFF ####[place] [address] Erythrocyte distribution width (RBC) [Ratio] 20.2 % High 11.5-15.5 [facility] Comment on above: Performed By: #### G FR, CBC, MORPH, CMP, MG, ANEU, ADIFF ####[place] [address] Hematocrit (Bld) [Volume fraction] 35.2 % Low 40.0-52.0 [facility] Comment on above: Performed By: #### G FR, CBC, MORPH, CMP, MG, ANEU, ADIFF ####[place] [address] Hgb 11.3 G/dL Low 13.0-17.5 [facility] Comment on above: Performed By: #### G FR, CBC, MORPH, CMP, MG, ANEU, ADIFF ####[place] [address] MCH (RBC) [Entitic mass] 27.3 pg Normal 27.0-33.0 [facility] Comment on above: Performed By: #### G FR, CBC, MORPH, CMP, MG, ANEU, ADIFF ####[place] [address] MCHC 32.1 G/dL Normal 32.0-36.0 [facility] Comment on above: Performed By: #### G FR, CBC, MORPH, CMP, MG, ANEU, ADIFF ####[place] [address] MCV (RBC) [Entitic vol] 85.0 fL Normal 81.0-100.0 [facility] Comment on above: Performed By: #### G FR, CBC, MORPH, CMP, MG, ANEU, ADIFF ####[place] [address] RBC 4.15 10 6/mcL Low 4.50-6.00 [facility] Comment on above: Performed By: #### G FR, CBC, MORPH, CMP, MG, ANEU, ADIFF ####[place] [address] WBC 13.6 10 3/mcL High 4.5-10.8 [facility] Comment on above: Performed By: #### G FR, CBC, MORPH, CMP, MG, ANEU, ADIFF ####[address] [address] CLRPon 10-02-2024 Chloride [Moles/Vol] 109 mmol/L Normal -[address] [place] [address] MAIN Comment on above: Performed By: #### C JOSH, GLURP, HGBRP, HCTRP, BGRP, CLRP, KRP, NARP ####[address] [address] Chloride [Moles/Vol] 108 mmol/L Normal 98-[address] [place] [address] MAIN Comment on above: Performed By: #### K RP, HCTRP, NARP, CARP, CLRP, GLURP, BGRP, HGBRP ####[address] [address] Chloride [Moles/Vol] 107 mmol/L Normal -[address] [place] [address] MAIN Comment on above: Performed By: #### K RP, BGRP, CLRP, GLURP, HCTRP, NARP, HGBRP, CARP ####[address] [address] Chloride [Moles/Vol] 109 mmol/L Normal [address] [place] [address] MAIN Comment on above: Performed By: #### H GBRP, KRP, GLURP, HCTRP, NARP, CLRP, CARP, BGRP ####[address] [address] Chloride [Moles/Vol] 106 mmol/L Normal 98-[address] [place] [address] MAIN Comment on above: Performed By: #### C JOSH, HCTRP, CLRP, BGRP, KRP, HGBRP, GLURP, NARP ####[address] [address] Chloride [Moles/Vol] 105 mmol/L Normal -[address] [place] [address] MAIN Comment on above: Performed By: #### C JOSH, CLRP, KRP, HGBRP, NARP, BGRP, GLURP, HCTRP ####[address] [address] Chloride [Moles/Vol] 107 mmol/L Normal 98-[address] [facility] Comment on above: Performed By: #### G LURP, CLRP, BGRP, KRP, CARP, HGBRP, NARP, HCTRP ####[address] [address] Chloride [Moles/Vol] 106 mmol/L Normal 98-[address] [facility] Comment on above: Performed By: #### C JOSH, GLURP, BGRP, HCTRP, NARP, CLRP, HGBRP, KRP ####[address] [address] CMPon 10-02-2024 Albumin Level 1.6 G/dL Low 3.2-4.8 [facility] Comment on above: Performed By: #### G FR, CBC, MORPH, CMP, MG, ANEU, ADIFF ####[address] [address] Albumin/Globulin [Mass ratio] 0.3 {ratio} Low 0.9-1.6 [facility] Comment on above: Performed By: #### G FR, CBC, MORPH, CMP, MG, ANEU, ADIFF ####[address] [address] ALP [Catalytic activity/Vol] 123 U/L Normal 38-126 [facility] Comment on above: Performed By: #### G FR, CBC, MORPH, CMP, MG, ANEU, ADIFF ####[address] [address] ALT [Catalytic activity/Vol] 40 U/L Normal 12-55 [facility] Comment on above: Performed By: #### G FR, CBC, MORPH, CMP, MG, ANEU, ADIFF ####[address] [address] AST [Catalytic activity/Vol] 111 U/L High 8-34 [facility] Comment on above: Performed By: #### G FR, CBC, MORPH, CMP, MG, ANEU, ADIFF ####[address] [address] Bili Total 2.30 mg/dL High 0.20-1.20 [facility] Comment on above: Result Comment: Use of this assay is not recommended for patients undergoing treatment with eltrombopag due to the potential for falsely elevated results. Performed By: #### G FR, CBC, MORPH, CMP, MG, ANEU, ADIFF ####[place] [address] BUN/Creatinine Ratio 19.5 ratio Normal 10.0-22.[address] [facility] Comment on above: Performed By: #### G FR, CBC, MORPH, CMP, MG, ANEU, ADIFF ####[place] [address] Calcium [Mass/Vol] 7.8 mg/dL Low 8.7-10.4 [facility] Comment on above: Performed By: #### G FR, CBC, MORPH, CMP, MG, ANEU, ADIFF ####[place] [address] Chloride [Moles/Vol] 106 mmol/L Normal 98-[address] [facility] Comment on above: Performed By: #### G FR, CBC, MORPH, CMP, MG, ANEU, ADIFF ####[place] [address] CO2 [Moles/Vol] 22 mmol/L Normal 22-32 [facility] Comment on above: Performed By: #### G FR, CBC, MORPH, CMP, MG, ANEU, ADIFF ####[place] [address] Creatinine [Mass/Vol] 0.77 mg/dL Normal 0.60-1.[address] [facility] Comment on above: Result Comment: Test ing performed on [employer] analyzer using enzymatic creatinine methodology. Performed By: #### G FR, CBC, MORPH, CMP, MG, ANEU, ADIFF ####[place] [address] Electrolyte Balance 11.0 mEq/L Normal 4.0-15.0 [facility] Comment on above: Performed By: #### G FR, CBC, MORPH, CMP, MG, ANEU, ADIFF ####[place] [id number] Globulin 5.6 G/dL High 2.5-4.2 [facility] Comment on above: Performed By: #### G FR, CBC, MORPH, CMP, MG, ANEU, ADIFF ####[address] [address] Glucose [Mass/Vol] 104 mg/dL Normal 70-110 [facility] Comment on above: Performed By: #### G FR, CBC, MORPH, CMP, MG, ANEU, ADIFF ####[place] [id number] Potassium [Moles/Vol] 3.0 mmol/L Low 3.5-5.[address] [facility] Comment on above: Performed By: #### G FR, CBC, MORPH, CMP, MG, ANEU, ADIFF ####[address] [address] Sodium [Moles/Vol] 139 mmol/L Normal 136-145 [facility] Comment on above: Performed By: #### G FR, CBC, MORPH, CMP, MG, ANEU, ADIFF ####[place] [address] Total Protein 7.2 G/dL Normal 5.7-8.2 [facility] Comment on above: Performed By: #### G FR, CBC, MORPH, CMP, MG, ANEU, ADIFF ####[place] [id number] Urea nitrogen [Mass/Vol] 15.0 mg/dL Normal 8.0-22.0 [facility] Comment on above: Performed By: #### G FR, CBC, MORPH, CMP, MG, ANEU, ADIFF ####[address] [address] Cryo (Product)on 10-02-2024 Cryo Product Ready Cryo Ready for Pickup Normal [facility] Comment on above: Performed By: #### C AUDELIA ####[address] [address] FIBon 10-02-2024 Fibrinogen 261 mg/dL Normal 250-560 [facility] Comment on above: Performed By: #### P RO, FIB, APTT ####[address] [address] GLURPon 10-02-2024 Glucose [Mass/Vol] 94 mg/dL Normal 70-110 [facility] Comment on above: Performed By: #### C JOSH, GLURP, HGBRP, HCTRP, BGRP, CLRP, KRP, NARP ####[address] [address] Glucose [Mass/Vol] 122 mg/dL High 70-110 [facility] Comment on above: Performed By: #### K RP, HCTRP, NARP, CARP, CLRP, GLURP, BGRP, HGBRP ####[address] [address] Glucose [Mass/Vol] 117 mg/dL High 70-110 [facility] Comment on above: Performed By: #### K RP, BGRP, CLRP, GLURP, HCTRP, NARP, HGBRP, CARP ####[address] [address] Glucose [Mass/Vol] 102 mg/dL Normal 70-110 [facility] Comment on above: Performed By: #### H GBRP, KRP, GLURP, HCTRP, NARP, CLRP, CARP, BGRP ####[address] [address] Glucose [Mass/Vol] 98 mg/dL Normal 70-110 [facility] Comment on above: Performed By: #### C JOSH, HCTRP, CLRP, BGRP, KRP, HGBRP, GLURP, NARP ####[address] [address] Glucose [Mass/Vol] 99 mg/dL Normal 70-110 [facility] Comment on above: Performed By: #### C JOSH, CLRP, KRP, HGBRP, NARP, BGRP, GLURP, HCTRP ####[address] [address] Glucose [Mass/Vol] 104 mg/dL Normal 70-110 [facility] Comment on above: Performed By: #### G LURP, CLRP, BGRP, KRP, CARP, HGBRP, NARP, HCTRP ####[address] [address] Glucose [Mass/Vol] 111 mg/dL High 70-110 [facility] Comment on above: Performed By: #### C JOSH, GLURP, BGRP, HCTRP, NARP, CLRP, HGBRP, KRP ####[address] [address] HCTRPon 10-02-2024 Hematocrit (Bld) [Volume fraction] 25.0 % Low 42.0-52.0 [facility] Comment on above: Performed By: #### C JOSH, GLURP, HGBRP, HCTRP, BGRP, CLRP, KRP, NARP ####[place] [address] Hematocrit (Bld) [Volume fraction] 19.0 % Low 42.0-52.0 [facility] Comment on above: Performed By: #### K RP, HCTRP, NARP, CARP, CLRP, GLURP, BGRP, HGBRP ####[place] [phone] Hematocrit (Bld) [Volume fraction] 20.0 % Low 42.0-52.0 [facility] Comment on above: Performed By: #### K RP, BGRP, CLRP, GLURP, HCTRP, NARP, HGBRP, CARP ####[address] [address] Hematocrit (Bld) [Volume fraction] 20.0 % Low 42.0-52.0 [facility] Comment on above: Performed By: #### H GBRP, KRP, GLURP, HCTRP, NARP, CLRP, CARP, BGRP ####[place] [phone] Hematocrit (Bld) [Volume fraction] 21.0 % Low 42.0-52.0 [facility] Comment on above: Performed By: #### C JOSH, HCTRP, CLRP, BGRP, KRP, HGBRP, GLURP, NARP ####[place] [address] Hematocrit (Bld) [Volume fraction] 23.0 % Low 42.0-52.0 [facility] Comment on above: Performed By: #### C JOSH, CLRP, KRP, HGBRP, NARP, BGRP, GLURP, HCTRP ####[place] [address] Hematocrit (Bld) [Volume fraction] 31.0 % Low 42.0-52.0 [facility] Comment on above: Performed By: #### G LURP, CLRP, BGRP, KRP, CARP, HGBRP, NARP, HCTRP ####[place] [address] Hematocrit (Bld) [Volume fraction] 32.0 % Low 42.0-52.0 [facility] Comment on above: Performed By: #### C JOSH, GLURP, BGRP, HCTRP, NARP, CLRP, HGBRP, KRP ####[place] [address] HGBRPon 10-02-2024 Hemoglobin (POC) 8.5 G/dL Low 13.0-17.5 [facility] Comment on above: Performed By: #### C JOSH, GLURP, HGBRP, HCTRP, BGRP, CLRP, KRP, NARP ####[place] [address] Hemoglobin (POC) 6.5 G/dL Critically abnormal 13.0-17.5 [facility] Comment on above: Performed By: #### K RP, HCTRP, NARP, CARP, CLRP, GLURP, BGRP, HGBRP ####[place] [address] Hemoglobin (POC) 6.7 G/dL Critically abnormal 13.0-17.5 [facility] Comment on above: Performed By: #### K RP, BGRP, CLRP, GLURP, HCTRP, NARP, HGBRP, CARP ####[place] [address] Hemoglobin (POC) 6.8 G/dL Critically abnormal 13.0-17.5 [facility] Comment on above: Performed By: #### H GBRP, KRP, GLURP, HCTRP, NARP, CLRP, CARP, BGRP ####[place] [address] Hemoglobin (POC) 7.3 G/dL Low 13.0-17.5 [facility] Comment on above: Performed By: #### C JOSH, HCTRP, CLRP, BGRP, KRP, HGBRP, GLURP, NARP ####[place] [address] Hemoglobin (POC) 7.7 G/dL Low 13.0-17.5 [facility] Comment on above: Performed By: #### C JOSH, CLRP, KRP, HGBRP, NARP, BGRP, GLURP, HCTRP ####[place] [address] Hemoglobin (POC) 10.6 G/dL Low 13.0-17.5 [facility] Comment on above: Performed By: #### G LURP, CLRP, BGRP, KRP, CARP, HGBRP, NARP, HCTRP ####[place] [address] Hemoglobin (POC) 10.8 G/dL Low 13.0-17.5 [facility] Comment on above: Performed By: #### C JOSH, GLURP, BGRP, HCTRP, NARP, CLRP, HGBRP, KRP ####[address] [address] KRPon 10-02-2024 Potassium [Moles/Vol] 3.3 mmol/L Low 3.5-5.0 [facility] Comment on above: Performed By: #### C JOSH, GLURP, HGBRP, HCTRP, BGRP, CLRP, KRP, NARP ####[place] [address] Potassium [Moles/Vol] 3.6 mmol/L Normal 3.5-5.0 [facility] Comment on above: Performed By: #### K RP, HCTRP, NARP, CARP, CLRP, GLURP, BGRP, HGBRP ####[address] [address] Potassium [Moles/Vol] 3.8 mmol/L Normal 3.5-5.[address] [facility] Comment on above: Performed By: #### K RP, BGRP, CLRP, GLURP, HCTRP, NARP, HGBRP, CARP ####[address] [address] Potassium [Moles/Vol] 3.7 mmol/L Normal 3.5-5.[address] [facility] Comment on above: Performed By: #### H GBRP, KRP, GLURP, HCTRP, NARP, CLRP, CARP, BGRP ####[address] [address] Potassium [Moles/Vol] 3.1 mmol/L Low 3.5-5.[address] [facility] Comment on above: Performed By: #### C JOSH, HCTRP, CLRP, BGRP, KRP, HGBRP, GLURP, NARP ####[address] [address] Potassium [Moles/Vol] 3.0 mmol/L Low 3.5-5.[address] [facility] Comment on above: Performed By: #### C JOSH, CLRP, KRP, HGBRP, NARP, BGRP, GLURP, HCTRP ####[address] [address] Potassium [Moles/Vol] 3.4 mmol/L Low 3.5-5.[address] [facility] Comment on above: Performed By: #### G LURP, CLRP, BGRP, KRP, CARP, HGBRP, NARP, HCTRP ####[address] [address] Potassium [Moles/Vol] 3.4 mmol/L Low 3.5-5.[address] [facility] Comment on above: Performed By: #### C JOSH, GLURP, BGRP, HCTRP, NARP, CLRP, HGBRP, KRP ####[place] [id number] [address] [place] [address] LABORATORYOrdered By: Yoon Calvo on 10-02-2024 Clot angle TEG (Bld) [Angle] 62.8 degrees Normal 53.0 - 72.0 degrees TEG Subsection Clot formation TEG (Bld) [Time] 2.3 minute(s) Normal 1.0 - 3.0 minute(s) TEG Subsection Clot lysis estimate TEG (Bld) [%] NT Invalid Interpretation Code 0.0 - 8.0 AH TEG Subsection Clot strength TEG (Bld) [Energy/Area] 52.3 mm Normal 50.0 - 70.0 mm TEG Subsection Clotting time TEG (Bld) 5.4 minute(s) Normal 5.0 - 10.0 minute(s) AH TEG Subsection LABORATORYOrdered By: SYSTEM SYSTEM on 10-02-2024 Ovalocytes LM Ql (Bld) 1+ *NA* (10/02/24 9:47 PM) Invalid Interpretation Code AH Workflow SS Poikilocytosis LM Ql (Bld) 1+ *NA* (10/02/24 9:47 PM) Invalid Interpretation Code AH Workflow SS Polychromasia LM Ql (Bld) 1+ *NA* (10/02/24 9:47 PM) Invalid Interpretation Code AH Workflow SS aPTT Coag (Bld) [Time] 37.6 s High 25.0 - 35.0 seconds AH [facility] SS Comment on above: Interpretive Data: F or Heparin anticoagulation therapy, the recommended therapeutic range is: 54-77 seconds (APTT Correlation with Anti-Xa therapeutic range of 0.3-0.7 units/ml). PLEASE REFERENCE THE PHARMACY PROTOCOL FOR DOSING. Fibrinogen 261 mg/dL Normal 250 - 560 mg/dL AH [facility] SS Phosphate [Mass/Vol] 6.4 mg/dL High 2.4 - 5 .1 mg/dL AH ADM SS Chloride [Moles/Vol] 109 mmol/L Normal 98 - 11 0 mEq/L AH Rapid [facility] SS CO2 [Moles/Vol] 22.6 mmol/L Normal 22.0 - 30.0 mmol/L AH Rapid Comm SS Glucose [Mass/Vol] 94 mg/dL Normal 70 - 110 mg/dL [facility] SS HCO3 (Bld) [Moles/Vol] 21.3 mmol/L Normal 21.0 - 29.0 mmol/L [facility] SS Hematocrit (Bld) [Volume fraction] 25.0 % Low 42.0 - 52.0 % Rapid [facility] SS Hemoglobin (POC) 8.5 G/dL Low 13.0 - 17.5 G/dL Rapid [facility] SS Ionized Calcium - POC 1.10 mmol/L Low 1.12 - 1.32 mmol/L Rapid [facility] SS Oxygen saturation in Blood 99.7 % High 92.0 - 96.0 % Rapid Comm SS PCO2 - POC 43.1 mm[Hg] Normal 32.0 - 46.0 mm Hg Rapid [facility] SS pH (Bld) 7.311 [pH] Low 7.380 - 7.460 Rapid [facility] SS PO2 - POC 441.2 mm[Hg] High 74.0 - 108.0 mm Hg Rapid [facility] SS Potassium [Moles/Vol] 3.3 mmol/L Low 3.5 - 5.0 mEq/L [facility] SS Sodium [Moles/Vol] -4.7000 mmol/L Invalid Interpretation Code Rapid [facility] SS Sodium [Moles/Vol] 138 mmol/L Normal 136 - 145 mEq/L [facility] SS Chloride [Moles/Vol] 108 mmol/L Normal 98 - 11 0 mEq/L [facility] SS CO2 [Moles/Vol] 24.3 mmol/L Normal 22.0 - 30.0 mmol/L Rapid [facility] SS Glucose [Mass/Vol] 122 mg/dL High 70 - 110 mg/dL [facility] SS HCO3 (Bld) [Moles/Vol] 22.9 mmol/L Normal 21.0 - 29.0 mmol/L Rapid [facility] SS Hematocrit (Bld) [Volume fraction] 19.0 % Low 42.0 - 52.0 % Rapid [facility] SS Hemoglobin (POC) 6.5 G/dL Invalid Interpretation Code 13.0 - 17.5 G/dL Rapid [facility] SS Ionized Calcium - POC 0.98 mmol/L Low 1.12 - 1.32 mmol/L Rapid [facility] SS Oxygen saturation in Blood 99.6 % High 92.0 - 96.0 % Rapid [facility] SS PCO2 - POC 45.0 mm[Hg] Normal 32.0 - 46.0 mm Hg AH Rapid Comm SS pH (Bld) 7.325 [pH] Low 7.380 - 7.460 AH Rapid Comm SS PO2 - POC 377.2 mm[Hg] High 74.0 - 108.0 mm Hg AH Rapid Comm SS Potassium [Moles/Vol] 3.6 mmol/L Normal 3.5 - 5.0 mEq/L AH Rapid Comm SS Sodium [Moles/Vol] -2.9000 mmol/L Invalid Interpretation Code Rapid [facility] SS Sodium [Moles/Vol] 137 mmol/L Normal 136 - 145 mEq/L AH Rapid Comm SS Chloride [Moles/Vol] 107 mmol/L Normal 98 - 11 0 mEq/L Rapid [facility] SS CO2 [Moles/Vol] 23.9 mmol/L Normal 22.0 - 30.0 mmol/L Rapid [facility] SS Glucose [Mass/Vol] 117 mg/dL High 70 - 110 mg/dL Rapid [facility] SS HCO3 (Bld) [Moles/Vol] 22.5 mmol/L Normal 21.0 - 29.0 mmol/L Rapid [facility] SS Hematocrit (Bld) [Volume fraction] 20.0 % Low 42.0 - 52.0 % Rapid [facility] SS Hemoglobin (POC) 6.7 G/dL Invalid Interpretation Code 13.0 - 17.5 G/dL Rapid [facility] SS Ionized Calcium - POC 0.99 mmol/L Low 1.12 - 1.32 mmol/L Rapid [facility] SS Oxygen saturation in Blood 99.6 % High 92.0 - 96.0 % Rapid [facility] SS PCO2 - POC 44.7 mm[Hg] Normal 32.0 - 46.0 mm Hg Rapid [facility] SS pH (Bld) 7.320 [pH] Low 7.380 - 7.460 Rapid [facility] SS PO2 - POC 494.7 mm[Hg] High 74.0 - 108.0 mm Hg Rapid [facility] SS Potassium [Moles/Vol] 3.8 mmol/L Normal 3.5 - 5.0 mEq/L Rapid [facility] SS Sodium [Moles/Vol] -3.3000 mmol/L Invalid Interpretation Code Rapid [facility] SS Sodium [Moles/Vol] 137 mmol/L Normal 136 - 145 mEq/L Rapid [facility] SS Polychromasia LM Ql (Bld) 1+ *NA* (10/02/24 4:39 AM) Invalid Interpretation Code AH Workflow SS LABORATORYOrdered By: Dolly Whitmore on 10-02-2024 Cryo Product Ready Cryo Ready for Picku p (10/02/24 5:25 PM) Normal BB Manual SS LABORATORYOrdered By: Todd De Luna on 10-02-2024 Platelet Product Ready Platelet Ready fo r Pickup (10/02/24 4:56 PM) Normal BB Manual SS Clot angle TEG (Bld) [Angle] 51.2 degrees Low 53.0 - 72.0 degrees TEG Subsection Clot formation TEG (Bld) [Time] 3.2 minute(s) High 1.0 - 3.0 minute(s) TEG Subsection Clot lysis estimate TEG (Bld) [%] n/a Invalid Interpretation Code 0.0 - 8.0 TEG Subsection Clot strength TEG (Bld) [Energy/Area] 48.8 mm Low 50.0 - 70.0 mm TEG Subsection Clotting time TEG (Bld) 7.2 minute(s) Normal 5.0 - 10.0 minute(s) TEG Subsection LABORATORYOrdered By: Chelsey merrill on 10-02-2024 Calcium Ionized 1.03 mmol/L Low 1.12 - 1.32 mmol/L Main Rapid Comm SS LABORATORYOrdered By: Demetria Perez on 10-02-2024 Platelet Product Ready Platelet Ready fo r Pickup (10/02/24 11:32 AM) Normal BB Manual SS LABORATORYOrdered By: Anup Rocha on 10-02-2024 Platelet Product Ready Platelet Ready fo r Pickup (10/02/24 10:42 AM) Normal BB Manual SS MGon 10-02-2024 Magnesium [Mass/Vol] 1.8 mg/dL Normal 1.6-2.[address] [facility] Comment on above: Performed By: #### A MINH, ADIFF, CAION, BMP, CBC, GFR, PHOS, MG ####[address] [address] Magnesium [Mass/Vol] 1.4 mg/dL Low 1.6-2.[address] [facility] Comment on above: Performed By: #### G FR, CBC, MORPH, CMP, MG, ANEU, ADIFF ####[address] [address] NARPon 10-02-2024 Sodium [Moles/Vol] 138 mmol/L Normal 136-145 [facility] Comment on above: Performed By: #### C JOSH, GLURP, HGBRP, HCTRP, BGRP, CLRP, KRP, NARP ####[address] [address] Sodium [Moles/Vol] 137 mmol/L Normal 136-[address] [place] [address] MAIN Comment on above: Performed By: #### K RP, HCTRP, NARP, CARP, CLRP, GLURP, BGRP, HGBRP ####[address] [address] Sodium [Moles/Vol] 137 mmol/L Normal [address] [place] [address] MAIN Comment on above: Performed By: #### K RP, BGRP, CLRP, GLURP, HCTRP, NARP, HGBRP, CARP ####[address] [address] Sodium [Moles/Vol] 137 mmol/L Normal [address] [place] [address] MAIN Comment on above: Performed By: #### H GBRP, KRP, GLURP, HCTRP, NARP, CLRP, CARP, BGRP ####[address] [address] Sodium [Moles/Vol] 137 mmol/L Normal [address] [place] [address] MAIN Comment on above: Performed By: #### C JOHS, HCTRP, CLRP, BGRP, KRP, HGBRP, GLURP, NARP ####[address] [address] Sodium [Moles/Vol] 138 mmol/L Normal [address] [place] [address] MAIN Comment on above: Performed By: #### C JOSH, CLRP, KRP, HGBRP, NARP, BGRP, GLURP, HCTRP ####[address] [address] Sodium [Moles/Vol] 138 mmol/L Normal 136-145 [facility] MAIN Comment on above: Performed By: #### G LURP, CLRP, BGRP, KRP, CARP, HGBRP, NARP, HCTRP ####[facility] [place] [address] Sodium [Moles/Vol] 138 mmol/L Normal 136-145 [facility] MAIN Comment on above: Performed By: #### C JOSH, GLURP, BGRP, HCTRP, NARP, CLRP, HGBRP, KRP ####[facility] [place] [address] No Panel Informationon 10-02 AFS Acid Fast Smear from Concentrated Specimen: Negative [facility] Culture Fungus No fungus isolated i n 4 weeks. [facility] FUNSM No fungal elements observed by calcofluor white stain. [facility] Culture Tissue No aerobes or anaero bes isolated at 7 days. [facility] GS No organisms seen. [facility] No Panel InformationOrdered By: Remy Ta on 10-02-2024 [facility] Culture No aerobes or anthony erobes isolated at 7 days. [facility] PHOSon 10-02-2024 Phosphate [Mass/Vol] 6.4 mg/dL High 2.4-5.[address] [facility] MAIN Comment on above: Performed By: #### A MINH, ADIFF, CAION, BMP, CBC, GFR, PHOS, MG ####[facility] [place] [id number] PROon 10-02-2024 INR Coag (PPP) [Relative time] 1.6 {INR} Normal [facility] MAIN Comment on above: Result Comment: [employer] (CHEST, 1992, 102:312S-25S)recommended therapeutic range for oral anticoagulant therapy is:LOW RISK: Prophylaxis of venous thrombosis INR: 2.0-3.0 Treatment of pulmonary embolism 2.0-3.0 Prevention of systemic embolism 2.0-3.0HIGH RISK: Mechanical prosthetic valves 2.5-3.5 Performed By: #### P RO, FIB, APTT ####[place] [address] PT Coag (PPP) [Time] 18.9 s High 9.0-14.[address] [facility] MAIN Comment on above: Result Comment: Effe ctive 10/31/07, Protime results may be affected by some antibiotics (i.e. Ciprofloxacin, Azithromycin, Bactrim) which may potentiate the action of oral anticoagulants, with further increases in Protime/INR. Performed By: #### P RO, FIB, APTT ####[place] [address] Platelet (Product)on 025 Platelet Product Ready Not Done [facility] MAIN Comment on above: Performed By: #### R BCP, PLTP ####[place] [address] Platelet Product Ready Platelet Ready fo r [facility] MAIN Comment on above: Performed By: #### P LTP ####[place] [address] Platelet Product Ready Platelet Ready fo r [facility] MAIN Comment on above: Performed By: #### P LTP ####[place] [address] Platelet Product Ready Platelet Ready fo r [facility] MAIN Comment on above: Performed By: #### P LTP ####[place] [address] Platelet Product Ready Platelet Ready fo r [facility] MAIN Comment on above: Order Comment: Pleas e transfuse in CVOR receiving area, the morning of 10/02/2024. Performed By: #### P LTP ####[place] [address] RBC (Product)on 10-02-2024 RBC Product Ready RBC Ready for [facility] MAIN Comment on above: Performed By: #### R BCP ####[place] [address] RBC Product Ready RBC Ready for [facility] MAIN Comment on above: Performed By: #### R BCP ####[place] [address] RBC Product Ready RBC Ready for Pickup Normal [facility] MAIN Comment on above: Performed By: #### R BCP, PLTP ####[place] [address] TEGCKon 10-02-2024 Angle TEG 62.8 degrees Normal 53.0-72.0 [facility] MAIN Comment on above: Performed By: #### A DIFF, MORPH, ANEU, CBC, TEGCK ####[place] [address] K TEG 2.3 minutes Normal 1.0-3.0 [facility] MAIN Comment on above: Performed By: #### A DIFF, MORPH, ANEU, CBC, TEGCK ####[place] [address] LY30 Lysis TEG NT Normal 0.0-8.0 [facility] MAIN Comment on above: Performed By: #### A DIFF, MORPH, ANEU, CBC, TEGCK ####[place] [address] MA Max Clot TEG 52.3 mm Normal 50.0-70.0 [facility] MAIN Comment on above: Performed By: #### A DIFF, MORPH, ANEU, CBC, TEGCK ####[place] [address] R TEG 5.4 minutes Normal 5.0-10.0 [facility] MAIN Comment on above: Performed By: #### A DIFF, MORPH, ANEU, CBC, TEGCK ####[place] [address] Angle TEG 51.2 degrees Low 53.0-72.0 [facility] MAIN Comment on above: Performed By: #### A MINH, CBC, ADIFF, TEGCK ####[place] [address] K TEG 3.2 minutes High 1.0-3.0 [facility] MAIN Comment on above: Performed By: #### A MINH, CBC, ADIFF, TEGCK ####[place] [address] LY30 Lysis TEG n/a Normal 0.0-8.0 [facility] MAIN Comment on above: Performed By: #### A MINH, CBC, ADIFF, TEGCK ####[address] [address] [place] Max Clot TEG 48.8 mm Low 50.0-70.0 [facility] MAIN Comment on above: Performed By: #### A MINH, CBC, ADIFF, TEGCK ####[address] [address] R TEG 7.2 minutes Normal 5.0-10.0 [facility] MAIN Comment on above: Performed By: #### A MINH, CBC, ADIFF, TEGCK ####[address] [address] XR CHEST 1 VIEWon 10-02-2024 XR CHEST 1 VIEW Normal [facility] XR CHEST 1 VIEW Normal [facility] XR CHEST 1 VIEW Normal [facility] .Auto Diffon 10-01-2024 Basophil, Absolute 0.1 10 3/mcL Normal 0.0-0.[address] [facility] MAIN Comment on above: Performed By: #### M ORPH, CBC, BMP, ADIFF, GFR, ANEU ####[address] [address] Basophils/100 WBC (Bld) 0.9 % Normal 0.0-2.5 [facility] MAIN Comment on above: Performed By: #### M ORPH, CBC, BMP, ADIFF, GFR, ANEU ####[address] [address] Eosinophil, Absolute 0.0 10 3/mcL Normal 0.0-0.7 [facility] MAIN Comment on above: Performed By: #### M ORPH, CBC, BMP, ADIFF, GFR, ANEU ####[address] [address] Eosinophils/100 WBC (Bld) 0.1 % Normal 0.0-6.0 [facility] MAIN Comment on above: Performed By: #### M ORPH, CBC, BMP, ADIFF, GFR, ANEU ####[address] [address] Lymphocyte, Absolute 1.3 10 3/mcL Normal 0.9-4.3 [facility] MAIN Comment on above: Performed By: #### M ORPH, CBC, BMP, ADIFF, GFR, ANEU ####[address] [address] Lymphocytes/100 WBC (Bld) 9.1 % Low 20.0-40.0 [facility] MAIN Comment on above: Performed By: #### M ORPH, CBC, BMP, ADIFF, GFR, ANEU ####[address] [address] Monocyte, Absolute 0.6 10 3/mcL Normal 0.1-1.[address] [facility] MAIN Comment on above: Performed By: #### M ORPH, CBC, BMP, ADIFF, GFR, ANEU ####[address] [address] Monocytes/100 WBC (Bld) 4.1 % Normal 2.0-13.0 [facility] MAIN Comment on above: Performed By: #### M ORPH, CBC, BMP, ADIFF, GFR, ANEU ####[address] [address] Neutrophils/100 WBC (Bld) 85.8 % High 50.0-75.0 [facility] MAIN Comment on above: Performed By: #### M ORPH, CBC, BMP, ADIFF, GFR, ANEU ####[address] [address] .GFRon 10-01-2024 Estimated Glomerular Filtration Rate 119 ml/min/1.73sqm Normal [facility] MAIN Comment on above: Result Comment: Stag es of Chronic Kidney Disease (CKD)Stage Description eGFR(ml/min/1.73 sq.m.)CKD 1 Normal kidney function or >=90 normal kindney function with possible kidney damage (ex. Proteinuria)CKD 2 Kidney damage with mild loss 60-89 of kidney functionCKD 3a Mild to moderate loss of kidney 45-59 functionCKD 3b Moderate to severe loss of 30-44 of kindey function CKD 4 Severe loss of kidney function 15-29CKD 5 Kidney failure <15Note: (go live 2024) the eGFR calculation was updated to the KD-EPI creatinine equation without a race factor to calculate theeGFR results. Performed By: #### M ORPH, CBC, BMP, ADIFF, GFR, ANEU ####[place] [address] .Morphon 10-01-2024 Anisocytosis Ql (Bld) 1+ Normal [facility] MAIN Comment on above: Performed By: #### M ORPH, CBC, BMP, ADIFF, GFR, ANEU ####[place] [address] Platelet Estimate Grt Decreased Normal [facility] MAIN Comment on above: Performed By: #### M ORPH, CBC, BMP, ADIFF, GFR, ANEU ####[place] [address] Polychrom 1+ Normal [facility] MAIN Comment on above: Performed By: #### M ORPH, CBC, BMP, ADIFF, GFR, ANEU ####[place] [address] .NEUABSon 10-01-2024 Neutrophil, Absolute 12.6 10 3/mcL High 2.3-8.1 [facility] MAIN Comment on above: Performed By: #### M ORPH, CBC, BMP, ADIFF, GFR, ANEU ####[place] [address] ABO/Rh (Gel)on 10-01-2024 ABO/Rh Interp Positive Invalid Interpretation Code [facility] MAIN Comment on above: Performed By: #### ELSY TAPIA ####[place] [address] ABS (Gel)on 10-01-2024 ABSC Interp (Gel) Negative [facility] MAIN Comment on above: Performed By: #### ELSY TAPIA ####[place] [address] APTTon 10-01-2024 aPTT Coag (Bld) [Time] 31.5 s Normal 25.0-35.0 [facility] MAIN Comment on above: Result Comment: For Heparin anticoagulation therapy, the recommendedtherapeutic range is: 54-77 seconds (APTT Correlationwith Anti-Xa therapeutic range of 0.3-0.7 units/ml).PLEASE REFERENCE THE PHARMACY PROTOCOL FOR DOSING. Performed By: #### A PTT, PLT, FIB, PRO ####[address] 10-01-2024 Base excess Calc (Bld) [Moles/Vol] -1.6000 mmol/L Normal [facility] MAIN Comment on above: Performed By: #### B G ####[place] [address] CO2 [Moles/Vol] 20.8 mmol/L Low 22.0-30.0 [facility] MAIN Comment on above: Performed By: #### B G ####[place] [address] HCO3 (Bld) [Moles/Vol] 20.1 mmol/L Low 21.0-29.0 [facility] MAIN Comment on above: Performed By: #### B G ####[place] [address] Oxygen (Bld) [Partial pressure] 50.7 mm[Hg] Low 74.0-108.0 [facility] MAIN Comment on above: Performed By: #### B G ####[place] [address] Oxygen saturation in Blood 88.5 % Low 92.0-96.0 [facility] MAIN Comment on above: Performed By: #### B G ####[place] [address] pCO2 23.1 mmHg Low 32.0-46.0 [facility] MAIN Comment on above: Performed By: #### B G ####[place] [address] pH (Bld) 7.557 [pH] High 7.380-7.46 0 [facility] MAIN Comment on above: Performed By: #### B G ####[address] 10-01-2024 BUN/Creatinine Ratio 30.3 ratio High 10.0-22.[address] [facility] MAIN Comment on above: Performed By: #### M ORPH, CBC, BMP, ADIFF, GFR, ANEU ####[address] [address] Calcium [Mass/Vol] 7.5 mg/dL Low 8.7-10.4 [facility] MAIN Comment on above: Performed By: #### M ORPH, CBC, BMP, ADIFF, GFR, ANEU ####[address] [address] Chloride [Moles/Vol] 110 mmol/L Normal 98-[address] [facility] MAIN Comment on above: Performed By: #### M ORPH, CBC, BMP, ADIFF, GFR, ANEU ####[address] [address] CO2 [Moles/Vol] 22 mmol/L Normal 22-32 [facility] MAIN Comment on above: Performed By: #### M ORPH, CBC, BMP, ADIFF, GFR, ANEU ####[place] [id number] Creatinine [Mass/Vol] 0.89 mg/dL Normal 0.60-1.[address] [facility] MAIN Comment on above: Result Comment: Test ing performed on [employer] analyzer using enzymatic creatinine methodology. Performed By: #### M ORPH, CBC, BMP, ADIFF, GFR, ANEU ####[address] [address] Electrolyte Balance 12.0 mEq/L Normal 4.0-15.0 [facility] MAIN Comment on above: Performed By: #### M ORPH, CBC, BMP, ADIFF, GFR, ANEU ####[address] [address] Glucose [Mass/Vol] 112 mg/dL High 70-110 [facility] MAIN Comment on above: Performed By: #### M ORPH, CBC, BMP, ADIFF, GFR, ANEU ####[address] [address] Potassium [Moles/Vol] 3.9 mmol/L Normal 3.5-5.[address] [facility] MAIN Comment on above: Performed By: #### M ORPH, CBC, BMP, ADIFF, GFR, ANEU ####[place] [address] Sodium [Moles/Vol] 144 mmol/L Normal 136-145 [facility] MAIN Comment on above: Performed By: #### M ORPH, CBC, BMP, ADIFF, GFR, ANEU ####[place] [address] Urea nitrogen [Mass/Vol] 27.0 mg/dL High 8.0-22.0 [facility] MAIN Comment on above: Performed By: #### M ORPH, CBC, BMP, ADIFF, GFR, ANEU ####[place] [address] CBCon 10-01-2024 Platelet 42 10 3/mcL Low 150-450 [facility] MAIN Comment on above: Performed By: #### M ORPH, CBC, BMP, ADIFF, GFR, ANEU ####[place] [address] Platelet mean volume (Bld) [Entitic vol] 10.4 fL Normal 6.4-10.5 [facility] MAIN Comment on above: Performed By: #### M ORPH, CBC, BMP, ADIFF, GFR, ANEU ####[place] [address] Erythrocyte distribution width (RBC) [Ratio] 16.6 % High 11.5-15.5 [facility] MAIN Comment on above: Performed By: #### M ORPH, CBC, BMP, ADIFF, GFR, ANEU ####[place] [address] Hematocrit (Bld) [Volume fraction] 22.3 % Low 40.0-52.0 [facility] MAIN Comment on above: Performed By: #### M ORPH, CBC, BMP, ADIFF, GFR, ANEU ####[place] [address] Hgb 7.3 G/dL Low 13.0-17.5 [facility] MAIN Comment on above: Performed By: #### M ORPH, CBC, BMP, ADIFF, GFR, ANEU ####[place] [address] MCH (RBC) [Entitic mass] 27.9 pg Normal 27.0-33.0 [facility] MAIN Comment on above: Performed By: #### M ORPH, CBC, BMP, ADIFF, GFR, ANEU ####[place] [address] MCHC 32.5 G/dL Normal 32.0-36.0 [facility] MAIN Comment on above: Performed By: #### M ORPH, CBC, BMP, ADIFF, GFR, ANEU ####[place] [address] MCV (RBC) [Entitic vol] 85.7 fL Normal 81.0-100.0 [facility] MAIN Comment on above: Performed By: #### M ORPH, CBC, BMP, ADIFF, GFR, ANEU ####[place] [address] RBC 2.60 10 6/mcL Low 4.50-6.00 [facility] MAIN Comment on above: Performed By: #### M ORPH, CBC, BMP, ADIFF, GFR, ANEU ####[place] [address] WBC 14.7 10 3/mcL High 4.5-10.8 [facility] MAIN Comment on above: Performed By: #### M ORPH, CBC, BMP, ADIFF, GFR, ANEU ####[place] [address] FIBon 10-01-2024 Fibrinogen 421 mg/dL Normal 250-560 [facility] MAIN Comment on above: Performed By: #### A PTT, PLT, FIB, PRO ####[place] [address] LABORATORYOrdered By: Ros hayward on 10-01-2024 ABO and Rh group Nom (Bld) Blood group O Rh(D) positive Invalid Interpretation Code AH BB Auto SS Blood group antibody screen Ql Negative ABSC (10/01/24 6:22 PM) Normal AH BB Auto SS LABORATORYOrdered By: SYSTEM SYSTEM on 10-01-2024 aPTT Coag (Bld) [Time] 31.5 s Normal 25.0 - 35.0 seconds AH [facility] SS Comment on above: Interpretive Data: F or Heparin anticoagulation therapy, the recommended therapeutic range is: 54-77 seconds (APTT Correlation with Anti-Xa therapeutic range of 0.3-0.7 units/ml). PLEASE REFERENCE THE PHARMACY PROTOCOL FOR DOSING. Fibrinogen 421 mg/dL Normal 250 - 560 mg/dL AH [facility] SS Polychromasia LM Ql (Bld) 1+ *NA* (10/01/24 8:21 AM) Invalid Interpretation Code AH Workflow SS PLTon 10-01-2024 Platelet 62 10 3/mcL Low 150-450 [facility] MAIN Comment on above: Performed By: #### A PTT, PLT, FIB, PRO ####[place] [address] PROon 10-01-2024 INR Coag (PPP) [Relative time] 1.7 {INR} Normal [facility] MAIN Comment on above: Result Comment: [employer] (CHEST, 1991, 102:312S-25S)recommended therapeutic range for oral anticoagulant therapy is:LOW RISK: Prophylaxis of venous thrombosis INR: 2.0-3.0 Treatment of pulmonary embolism 2.0-3.0 Prevention of systemic embolism 2.0-3.0HIGH RISK: Mechanical prosthetic valves 2.5-3.5 Performed By: #### A PTT, PLT, FIB, PRO ####[place] [address] PT Coag (PPP) [Time] 19.9 s High 9.0-14.[address] [facility] MAIN Comment on above: Result Comment: Effe ctive 10/31/07, Protime results may be affected by some antibiotics (i.e. Ciprofloxacin, Azithromycin, Bactrim) which may potentiate the action of oral anticoagulants, with further increases in Protime/INR. Performed By: #### A PTT, PLT, FIB, PRO ####[place] [address] RBC (Product)on 10-01-2024 RBC Product Ready RBC Ready for Pickup Normal [facility] MAIN Comment on above: Performed By: #### R BCP ####[place] [address] .GFRon 09-30-2024 Estimated Glomerular Filtration Rate 110 ml/min/1.73sqm Normal [facility] MAIN Comment on above: Result Comment: Stag es of Chronic Kidney Disease (CKD)Stage Description eGFR(ml/min/1.73 sq.m.)CKD 1 Normal kidney function or >=90 normal kindney function with possible kidney damage (ex. Proteinuria)CKD 2 Kidney damage with mild loss 60-89 of kidney functionCKD 3a Mild to moderate loss of kidney 45-59 functionCKD 3b Moderate to severe loss of 30-44 of kindey function CKD 4 Severe loss of kidney function 15-29CKD 5 Kidney failure <15Note: (go live 2024) the eGFR calculation was updated to the KD-EPI creatinine equation without a race factor to calculate theeGFR results. Performed By: #### C BC, MORPH, DIFF, CMP, MG, GFR ####[place] [address] .Manual Diffon 09-30-2024 Basophil %, Manual 0.0 % Normal 0.0-2.5 [facility] MAIN Comment on above: Performed By: #### C BC, MORPH, DIFF, CMP, MG, GFR ####[place] [address] Basophil, Abs Manual 0.0 10 3/mcL Normal 0.0-0.3 [facility] MAIN Comment on above: Performed By: #### C BC, MORPH, DIFF, CMP, MG, GFR ####[place] [address] Eosinophil %, Manual 0.0 % Normal 0.0-6.[address] [facility] MAIN Comment on above: Performed By: #### C BC, MORPH, DIFF, CMP, MG, GFR ####[place] [address] Eosinophil, Abs Manual 0.0 10 3/mcL Normal 0.0-0.7 [facility] MAIN Comment on above: Performed By: #### C BC, MORPH, DIFF, CMP, MG, GFR ####[place] [address] Lymphocyte %, Manual 6.0 % Low 20.0-40.[address] [facility] MAIN Comment on above: Performed By: #### C BC, MORPH, DIFF, CMP, MG, GFR ####[address] [address] Lymphocyte, Abs Manual 0.9 10 3/mcL Normal 0.9-4.3 [facility] MAIN Comment on above: Performed By: #### C BC, MORPH, DIFF, CMP, MG, GFR ####[place] [phone] Monocyte %, Manual 2.0 % Normal 2.0-13.0 [facility] MAIN Comment on above: Performed By: #### C BC, MORPH, DIFF, CMP, MG, GFR ####[address] [address] Monocyte, Abs Manual 0.3 10 3/mcL Normal 0.1-1.4 [facility] MAIN Comment on above: Performed By: #### C BC, MORPH, DIFF, CMP, MG, GFR ####[place] [id number] Neutrophil %, Manual 92.0 % High 50.0-75.[address] [facility] MAIN Comment on above: Performed By: #### C BC, MORPH, DIFF, CMP, MG, GFR ####[address] [address] Neutrophil, Abs Manual 13.9 10 3/mcL High 2.3-8.1 [facility] MAIN Comment on above: Performed By: #### C BC, MORPH, DIFF, CMP, MG, GFR ####[place] [phone] Nucleated RBC 3.0 /100 WBC Normal [facility] MAIN Comment on above: Performed By: #### C BC, MORPH, DIFF, CMP, MG, GFR ####[place] [phone] .Morphon 09-30-2024 Anisocytosis Ql (Bld) 1+ Normal [facility] MAIN Comment on above: Performed By: #### C BC, MORPH, DIFF, CMP, MG, GFR ####[place] [phone] Large Platelets Few Normal [facility] MAIN Comment on above: Performed By: #### C BC, MORPH, DIFF, CMP, MG, GFR ####[place] [address] Platelet Estimate Decreased Normal [facility] MAIN Comment on above: Performed By: #### C BC, MORPH, DIFF, CMP, MG, GFR ####[place] [phone] Polychrom 1+ Normal [facility] MAIN Comment on above: Performed By: #### C BC, MORPH, DIFF, CMP, MG, GFR ####[place] [address] BGon 09-30-2024 Base excess Calc (Bld) [Moles/Vol] -1.1000 mmol/L Normal [facility] MAIN Comment on above: Order Comment: Pre-o p assessment Performed By: #### B G ####[place] [address] CO2 [Moles/Vol] 23.2 mmol/L Normal 22.0-30.0 [facility] MAIN Comment on above: Order Comment: Pre-o p assessment Performed By: #### B G ####[place] [address] HCO3 (Bld) [Moles/Vol] 22.2 mmol/L Normal 21.0-29.0 [facility] MAIN Comment on above: Order Comment: Pre-o p assessment Performed By: #### B G ####[place] [address] Oxygen (Bld) [Partial pressure] 20.5 mm[Hg] Critically abnormal 74.0-108.0 [facility] MAIN Comment on above: Order Comment: Pre-o p assessment Performed By: #### B G ####[place] [address] Oxygen saturation in Blood 29.0 % Low 92.0-96.0 [facility] MAIN Comment on above: Order Comment: Pre-o p assessment Performed By: #### B G ####[place] [address] pCO2 31.2 mmHg Low 32.0-46.0 [facility] MAIN Comment on above: Order Comment: Pre-o p assessment Performed By: #### B G ####[place] [address] pH (Bld) 7.471 [pH] High 7.380-7.46 0 [facility] MAIN Comment on above: Order Comment: Pre-o p assessment Performed By: #### B G ####[place] [address] CBCon 09-30-2024 Platelet 74 10 3/mcL Low 150-450 [facility] MAIN Comment on above: Performed By: #### C BC, MORPH, DIFF, CMP, MG, GFR ####[place] [address] Platelet mean volume (Bld) [Entitic vol] 11.4 fL High 6.4-10.5 [facility] MAIN Comment on above: Performed By: #### C BC, MORPH, DIFF, CMP, MG, GFR ####[place] [address] Erythrocyte distribution width (RBC) [Ratio] 16.7 % High 11.5-15.5 [facility] MAIN Comment on above: Performed By: #### C BC, MORPH, DIFF, CMP, MG, GFR ####[place] [address] Hematocrit (Bld) [Volume fraction] 25.8 % Low 40.0-52.0 [facility] MAIN Comment on above: Performed By: #### C BC, MORPH, DIFF, CMP, MG, GFR ####[place] [address] Hgb 8.1 G/dL Low 13.0-17.5 [facility] MAIN Comment on above: Performed By: #### C BC, MORPH, DIFF, CMP, MG, GFR ####[place] [address] MCH (RBC) [Entitic mass] 27.4 pg Normal 27.0-33.0 [facility] Comment on above: Performed By: #### C BC, MORPH, DIFF, CMP, MG, GFR ####[place] [address] MCHC 31.5 G/dL Low 32.0-36.0 [facility] Comment on above: Performed By: #### C BC, MORPH, DIFF, CMP, MG, GFR ####[place] [address] MCV (RBC) [Entitic vol] 87.0 fL Normal 81.0-100.0 [facility] Comment on above: Performed By: #### C BC, MORPH, DIFF, CMP, MG, GFR ####[place] [address] RBC 2.97 10 6/mcL Low 4.50-6.00 [facility] Comment on above: Performed By: #### C BC, MORPH, DIFF, CMP, MG, GFR ####[place] [address] WBC 15.1 10 3/mcL High 4.5-10.8 [facility] Comment on above: Performed By: #### C BC, MORPH, DIFF, CMP, MG, GFR ####[place] [address] CMPon 09-30-2024 Albumin Level 1.7 G/dL Low 3.2-4.8 [facility] Comment on above: Performed By: #### C BC, MORPH, DIFF, CMP, MG, GFR ####[place] [address] Albumin/Globulin [Mass ratio] 0.3 {ratio} Low 0.9-1.6 [facility] Comment on above: Performed By: #### C BC, MORPH, DIFF, CMP, MG, GFR ####[place] [address] ALP [Catalytic activity/Vol] 125 U/L Normal 38-126 [facility] Comment on above: Performed By: #### C BC, MORPH, DIFF, CMP, MG, GFR ####[place] [address] ALT [Catalytic activity/Vol] 57 U/L High 12-55 [facility] Comment on above: Performed By: #### C BC, MORPH, DIFF, CMP, MG, GFR ####[address] [id number] AST [Catalytic activity/Vol] 164 U/L High 8-34 [facility] Comment on above: Performed By: #### C BC, MORPH, DIFF, CMP, MG, GFR ####[address] [address] [address] Bili Total 2.50 mg/dL High 0.20-1.20 [facility] Comment on above: Result Comment: Use of this assay is not recommended for patients undergoing treatment with eltrombopag due to the potential for falsely elevated results. Performed By: #### C BC, MORPH, DIFF, CMP, MG, GFR ####[address] [address] BUN/Creatinine Ratio 34.4 ratio High 10.0-22.[address] [facility] Comment on above: Performed By: #### C BC, MORPH, DIFF, CMP, MG, GFR ####[address] [address] Calcium [Mass/Vol] 7.9 mg/dL Low 8.7-10.4 [facility] Comment on above: Performed By: #### C BC, MORPH, DIFF, CMP, MG, GFR ####[address] [address] Chloride [Moles/Vol] 112 mmol/L High 98-[address] [facility] Comment on above: Performed By: #### C BC, MORPH, DIFF, CMP, MG, GFR ####[address] [address] CO2 [Moles/Vol] 21 mmol/L Low 22-32 [facility] Comment on above: Performed By: #### C BC, MORPH, DIFF, CMP, MG, GFR ####[address] [address] Creatinine [Mass/Vol] 0.96 mg/dL Normal 0.60-1.[address] [facility] Comment on above: Result Comment: Test ing performed on [employer] analyzer using enzymatic creatinine methodology. Performed By: #### C BC, MORPH, DIFF, CMP, MG, GFR ####[place] [id number] Electrolyte Balance 15.0 mEq/L Normal 4.0-15.0 [facility] Comment on above: Performed By: #### C BC, MORPH, DIFF, CMP, MG, GFR ####[address] [address] Globulin 6.2 G/dL High 2.5-4.2 [facility] Comment on above: Performed By: #### C BC, MORPH, DIFF, CMP, MG, GFR ####[place] [address] Glucose [Mass/Vol] 154 mg/dL High 70-110 [facility] Comment on above: Performed By: #### C BC, MORPH, DIFF, CMP, MG, GFR ####[place] [address] Potassium [Moles/Vol] 3.1 mmol/L Low 3.5-5.[address] [facility] Comment on above: Result Comment: Spec imen slightly hemolyzed. Performed By: #### C BC, MORPH, DIFF, CMP, MG, GFR ####[place] [address] Sodium [Moles/Vol] 148 mmol/L High 136-145 [facility] Comment on above: Performed By: #### C BC, MORPH, DIFF, CMP, MG, GFR ####[place] [address] Total Protein 7.9 G/dL Normal 5.7-8.2 [facility] Comment on above: Performed By: #### C BC, MORPH, DIFF, CMP, MG, GFR ####[place] [address] Urea nitrogen [Mass/Vol] 33.0 mg/dL High 8.0-22.0 [facility] Comment on above: Performed By: #### C BC, MORPH, DIFF, CMP, MG, GFR ####[place] [address] LABORATORYOrdered By: Anabel Polk on 09-30-2024 Blood Glucose Interventions Administered agent to decrease blood sugar (09/30/24 3:09 PM) [facility] LABORATORYOrdered By: SYSTEM SYSTEM on 09-30-2024 Basophils (Bld) [#/Vol] 0.0 103/mcL Normal 0.0 - 0.3 10^3/mcL Workflow SS Basophils/100 WBC (Bld) 0.0 % Normal 0.0 - 2.5 % AH Workflow SS Eosinophils (Bld) [#/Vol] 0.0 103/mcL Normal 0.0 - 0.7 10^3/mcL Workflow SS Eosinophils/100 WBC (Bld) 0.0 % Normal 0.0 - 6.0 % Workflow SS Large Platelets Few *NA* (09/30/24 7:23 AM) Invalid Interpretation Code Workflow SS Lymphocytes (Bld) [#/Vol] 0.9 103/mcL Normal 0.9 - 4.3 10^3/mcL Workflow SS Lymphocytes/100 WBC (Bld) 6.0 % Low 20.0 - 40.0 % AH Workflow SS Monocytes (Bld) [#/Vol] 0.3 103/mcL Normal 0.1 - 1.4 10^3/mcL Workflow SS Monocytes/100 WBC (Bld) 2.0 % Normal 2.0 - 13.0 % AH Workflow SS Neutrophils (Bld) [#/Vol] 13.9 103/mcL High 2.3 - 8.1 10^3/mcL Workflow SS Neutrophils/100 WBC (Bld) 92.0 % High 50.0 - 75.0 % Workflow SS Nucleated RBC 3.0 /100 WBC Invalid Interpretation Code Workflow SS MGon 09-30-2024 Magnesium [Mass/Vol] 1.9 mg/dL Normal 1.6-2.[address] [facility] Comment on above: Performed By: #### C BC, MORPH, DIFF, CMP, MG, GFR ####[facility] [place] [address] .GFRon 09-29-2024 Estimated Glomerular Filtration Rate 67 ml/min/1.73sqm Normal [facility] Comment on above: Result Comment: Stag es of Chronic Kidney Disease (CKD)Stage Description eGFR(ml/min/1.73 sq.m.)CKD 1 Normal kidney function or >=90 normal kindney function with possible kidney damage (ex. Proteinuria)CKD 2 Kidney damage with mild loss 60-89 of kidney functionCKD 3a Mild to moderate loss of kidney 45-59 functionCKD 3b Moderate to severe loss of 30-44 of kindey function CKD 4 Severe loss of kidney function 15-29CKD 5 Kidney failure <15Note: (go live 2024) the eGFR calculation was updated to the KD-EPI creatinine equation without a race factor to calculate theeGFR results. Performed By: #### G FR, MG, CBC, DIFF, MORPH, A1C, CMP ####[place] [address] .Manual Diffon 09-29-2024 Basophil %, Manual 0.0 % Normal 0.0-2.5 [facility] Comment on above: Performed By: #### G FR, MG, CBC, DIFF, MORPH, A1C, CMP ####[place] [address] Basophil, Abs Manual 0.0 10 3/mcL Normal 0.0-0.3 [facility] Comment on above: Performed By: #### G FR, MG, CBC, DIFF, MORPH, A1C, CMP ####[place] [address] Eosinophil %, Manual 0.0 % Normal 0.0-6.[address] [facility] Comment on above: Performed By: #### G FR, MG, CBC, DIFF, MORPH, A1C, CMP ####[place] [address] Eosinophil, Abs Manual 0.0 10 3/mcL Normal 0.0-0.7 [facility] Comment on above: Performed By: #### G FR, MG, CBC, DIFF, MORPH, A1C, CMP ####[place] [address] Lymphocyte %, Manual 2.0 % Low 20.0-40.[address] [facility] Comment on above: Performed By: #### G FR, MG, CBC, DIFF, MORPH, A1C, CMP ####[address] [address] Lymphocyte, Abs Manual 0.3 10 3/mcL Low 0.9-4.3 [facility] Comment on above: Performed By: #### G FR, MG, CBC, DIFF, MORPH, A1C, CMP ####[address] [address] Metamyelocyte 1.0 % Normal [facility] Comment on above: Performed By: #### G FR, MG, CBC, DIFF, MORPH, A1C, CMP ####[address] [address] Monocyte %, Manual 0.0 % Low 2.0-13.0 [facility] Comment on above: Performed By: #### G FR, MG, CBC, DIFF, MORPH, A1C, CMP ####[place] [address] Monocyte, Abs Manual 0.0 10 3/mcL Low 0.1-1.4 [facility] Comment on above: Performed By: #### G FR, MG, CBC, DIFF, MORPH, A1C, CMP ####[place] [address] Neutrophil %, Manual 97.0 % High 50.0-75.[address] [facility] Comment on above: Performed By: #### G FR, MG, CBC, DIFF, MORPH, A1C, CMP ####[address] [address] Neutrophil, Abs Manual 13.6 10 3/mcL High 2.3-8.1 [facility] Comment on above: Performed By: #### G FR, MG, CBC, DIFF, MORPH, A1C, CMP ####[place] [address] Nucleated RBC 3.0 /100 WBC Normal [facility] Comment on above: Performed By: #### G FR, MG, CBC, DIFF, MORPH, A1C, CMP ####[place] [address] .Morphon 09-29-2024 Anisocytosis Ql (Bld) 1+ Normal [facility] Comment on above: Performed By: #### G FR, MG, CBC, DIFF, MORPH, A1C, CMP ####[place] [address] Platelet Estimate Decreased Normal [facility] Comment on above: Performed By: #### G FR, MG, CBC, DIFF, MORPH, A1C, CMP ####[place] [address] Poik 1+ Normal [facility] Comment on above: Performed By: #### G FR, MG, CBC, DIFF, MORPH, A1C, CMP ####[place] [address] Polychrom 1+ Normal [facility] Comment on above: Performed By: #### G FR, MG, CBC, DIFF, MORPH, A1C, CMP ####[place] [address] Target Cell 1+ Normal [facility] Comment on above: Performed By: #### G FR, MG, CBC, DIFF, MORPH, A1C, CMP ####[place] [address] A1Con 09-29-2024 Glucose [Mass/Vol] 131 mg/dL Normal [facility] Comment on above: Result Comment: Brooke mated Average Glucose calculated by equation ((28.7xA1C)-46.7)Estimated average glucose (eAG) is a calculated value from Hemoglobin A1C and is security representative of the average blood glucose level in the last 2-3 month period.Normal range: less than 114 mg/dL Performed By: #### G FR, MG, CBC, DIFF, MORPH, A1C, CMP ####[place] [address] HbA1c (Bld) [Mass fraction] 6.2 % High 4.0-6.0 [facility] Comment on above: Performed By: #### G FR, MG, CBC, DIFF, MORPH, A1C, CMP ####[place] [address] CBCon 09-29-2024 Platelet 61 10 3/mcL Low 150-450 [facility] Comment on above: Performed By: #### G FR, MG, CBC, DIFF, MORPH, A1C, CMP ####[place] [address] Platelet mean volume (Bld) [Entitic vol] 11.6 fL High 6.4-10.5 [facility] Comment on above: Performed By: #### G FR, MG, CBC, DIFF, MORPH, A1C, CMP ####[place] [address] WBC 14.0 10 3/mcL High 4.5-10.8 [facility] Comment on above: Performed By: #### G FR, MG, CBC, DIFF, MORPH, A1C, CMP ####[place] [address] Erythrocyte distribution width (RBC) [Ratio] 16.6 % High 11.5-15.5 [facility] Comment on above: Performed By: #### G FR, MG, CBC, DIFF, MORPH, A1C, CMP ####[place] [address] Hematocrit (Bld) [Volume fraction] 22.1 % Low 40.0-52.0 [facility] Comment on above: Performed By: #### G FR, MG, CBC, DIFF, MORPH, A1C, CMP ####[place] [address] Hgb 7.2 G/dL Low 13.0-17.5 [facility] Comment on above: Performed By: #### G FR, MG, CBC, DIFF, MORPH, A1C, CMP ####[place] [address] MCH (RBC) [Entitic mass] 26.8 pg Low 27.0-33.0 [facility] Comment on above: Performed By: #### G FR, MG, CBC, DIFF, MORPH, A1C, CMP ####[place] [address] MCHC 32.4 G/dL Normal 32.0-36.0 [facility] Comment on above: Performed By: #### G FR, MG, CBC, DIFF, MORPH, A1C, CMP ####[address] [place], [place] [address] MCV (RBC) [Entitic vol] 82.7 fL Normal 81.0-100.0 [facility] Comment on above: Performed By: #### G FR, MG, CBC, DIFF, MORPH, A1C, CMP ####[facility] [place] [address] RBC 2.68 10 6/mcL Low 4.50-6.00 [facility] Comment on above: Performed By: #### G FR, MG, CBC, DIFF, MORPH, A1C, CMP ####[facility] [place] [address] CBLon 09-29-2024 CBL Normal [facility] CBL Normal [facility] CMPon 09-29-2024 Albumin Level 1.5 G/dL Low 3.2-4.8 [facility] Comment on above: Order Comment: vrb- called critical K to CANDELARIO Burr 09/29/2024 04:55:17 EDT SAS Performed By: #### G FR, MG, CBC, DIFF, MORPH, A1C, CMP ####[address] [address] Albumin/Globulin [Mass ratio] 0.3 {ratio} Low 0.9-1.6 [facility] Comment on above: Order Comment: vrb- called critical K to CANDELARIO Burr 09/29/2024 04:55:17 EDT SAS Performed By: #### G FR, MG, CBC, DIFF, MORPH, A1C, CMP ####[address] [address] ALP [Catalytic activity/Vol] 95 U/L Normal 38-126 [facility] Comment on above: Order Comment: vrb- called critical K to CANDELARIO Burr 09/29/2024 04:55:17 EDT SAS Performed By: #### G FR, MG, CBC, DIFF, MORPH, A1C, CMP ####[place] [id number] [address] [place] [address] ALT [Catalytic activity/Vol] 93 U/L High 12-55 [facility] Comment on above: Order Comment: vrb- called critical K to CANDELARIO Burr 09/29/2024 04:55:17 EDT SAS Performed By: #### G FR, MG, CBC, DIFF, MORPH, A1C, CMP ####[place] [id number] [place] [address] AST [Catalytic activity/Vol] 246 U/L High 8-34 [facility] Comment on above: Order Comment: vrb- called critical K to CANDELARIO Burr 09/29/2024 04:55:17 EDT SAS Performed By: #### G FR, MG, CBC, DIFF, MORPH, A1C, CMP ####[address] [address] Bili Total 2.70 mg/dL High 0.20-1.20 [facility] Comment on above: Order Comment: vrb- called critical K to CANDELARIO Burr 09/29/2024 04:55:17 EDT SAS Result Comment: Use of this assay is not recommended for patients undergoing treatment with eltrombopag due to the potential for falsely elevated results. Performed By: #### G FR, MG, CBC, DIFF, MORPH, A1C, CMP ####[address] [address] BUN/Creatinine Ratio 45.1 ratio High 10.0-22.[address] [facility] Comment on above: Order Comment: vrb- called critical K to CANDELARIO Burr 09/29/2024 04:55:17 EDT SAS Performed By: #### G FR, MG, CBC, DIFF, MORPH, A1C, CMP ####[address] [address] Calcium [Mass/Vol] 7.8 mg/dL Low 8.7-10.4 [facility] Comment on above: Order Comment: vrb- called critical K to CANDELARIO Burr 09/29/2024 04:55:17 EDT SAS Performed By: #### G FR, MG, CBC, DIFF, MORPH, A1C, CMP ####[place] [id number] [place] [address] Chloride [Moles/Vol] 118 mmol/L High 98-[address] [facility] Comment on above: Order Comment: vrb- called critical K to CANDELARIO Burr 09/29/2024 04:55:17 EDT SAS Performed By: #### G FR, MG, CBC, DIFF, MORPH, A1C, CMP ####[address] [address] CO2 [Moles/Vol] 24 mmol/L Normal 22-32 [facility] Comment on above: Order Comment: vrb- called critical K to CANDELARIO Burr 09/29/2024 04:55:17 EDT SAS Performed By: #### G FR, MG, CBC, DIFF, MORPH, A1C, CMP ####[address] [address] Creatinine [Mass/Vol] 1.44 mg/dL High 0.60-1.[address] [facility] Comment on above: Order Comment: vrb- called critical K to CANDELARIO Burr 09/29/2024 04:55:17 EDT SAS Result Comment: Test ing performed on [employer] analyzer using enzymatic creatinine methodology. Performed By: #### G FR, MG, CBC, DIFF, MORPH, A1C, CMP ####[address] [address] Electrolyte Balance 14.0 mEq/L Normal 4.0-15.0 [facility] Comment on above: Order Comment: vrb- called critical K to CANDELARIO Burr 09/29/2024 04:55:17 EDT SAS Performed By: #### G FR, MG, CBC, DIFF, MORPH, A1C, CMP ####[address] [address] Globulin 5.6 G/dL High 2.5-4.2 [facility] Comment on above: Order Comment: vrb- called critical K to CANDELARIO Burr 09/29/2024 04:55:17 EDT SAS Performed By: #### G FR, MG, CBC, DIFF, MORPH, A1C, CMP ####[address] [address] Glucose [Mass/Vol] 142 mg/dL High 70-110 [facility] Comment on above: Order Comment: vrb- called critical K to CANDELARIO Burr 09/29/2024 04:55:17 EDT SAS Performed By: #### G FR, MG, CBC, DIFF, MORPH, A1C, CMP ####[address] [address] Sodium [Moles/Vol] 156 mmol/L High 136-145 [facility] Comment on above: Order Comment: vrb- called critical K to CANDELARIO Burr 09/29/2024 04:55:17 EDT SAS Performed By: #### G FR, MG, CBC, DIFF, MORPH, A1C, CMP ####[address] [address] Total Protein 7.1 G/dL Normal 5.7-8.2 [facility] Comment on above: Order Comment: vrb- called critical K to CANDELARIO Burr 09/29/2024 04:55:17 EDT SAS Performed By: #### G FR, MG, CBC, DIFF, MORPH, A1C, CMP ####[place] [address] Urea nitrogen [Mass/Vol] 65.0 mg/dL High 8.0-22.0 [facility] Comment on above: Order Comment: vrb- called critical K to CANDELARIO Burr 09/29/2024 04:55:17 EDT SAS Performed By: #### G FR, MG, CBC, DIFF, MORPH, A1C, CMP ####[address] [address] Potassium [Moles/Vol] 2.7 mmol/L Critically abnormal 3.5-5.0 [facility] Comment on above: Order Comment: vrb- called critical K to CANDELARIO Burr 09/29/2024 04:55:17 EDT SAS Performed By: #### G FR, MG, CBC, DIFF, MORPH, A1C, CMP ####[address] [address] [address] MAXILLOFACIAL W/O CONTRAS Ton 09-29-2024 CT MAXILLOFACIAL W/O CONTRAST Normal [facility] CT THORAX W/O CONTRASTon CT THORAX W/O CONTRAST Normal [facility] Michi 09-29-2024 Potassium [Moles/Vol] 3.3 mmol/L Low 3.5-5.[address] [facility] Comment on above: Performed By: #### K ####[place] [id number] [place] [address] LABORATORYOrdered By: SYSTEM SYSTEM on 09-29-2024 Basophils (Bld) [#/Vol] 0.0 103/mcL Normal 0.0 - 0.3 10^3/mcL AH Workflow SS Basophils/100 WBC (Bld) 0.0 % Normal 0.0 - 2.5 % AH Workflow SS Eosinophils (Bld) [#/Vol] 0.0 103/mcL Normal 0.0 - 0.7 10^3/mcL AH Workflow SS Eosinophils/100 WBC (Bld) 0.0 % Normal 0.0 - 6.0 % AH Workflow SS Glucose [Mass/Vol] 131 mg/dL Invalid Interpretation Code AH Auto Chem SS Comment on above: Interpretive Data: E stimated average glucose (eAG) is a calculated value from Hemoglobin A1C and is security representative of the average blood glucose level in the last 2-3 month period. Normal range: less than 114 mg/dL HbA1c (Bld) [Mass fraction] 6.2 % High 4.0 - 6.0 % AH Auto Chem SS Lymphocytes (Bld) [#/Vol] 0.3 103/mcL Low 0.9 - 4.3 10^3/mcL AH Workflow SS Lymphocytes/100 WBC (Bld) 2.0 % Low 20.0 - 40.0 % AH Workflow SS Metamyelocytes/100 WBC (Bld) 1.0 % Invalid Interpretation Code AH Workflow SS Monocytes (Bld) [#/Vol] 0.0 103/mcL Low 0.1 - 1.4 10^3/mcL AH Workflow SS Monocytes/100 WBC (Bld) 0.0 % Low 2.0 - 13.0 % AH Workflow SS Neutrophils (Bld) [#/Vol] 13.6 103/mcL High 2.3 - 8.1 10^3/mcL AH Workflow SS Neutrophils/100 WBC (Bld) 97.0 % High 50.0 - 75.0 % AH Workflow SS Nucleated RBC 3.0 /100 WBC Invalid Interpretation Code AH Workflow SS Target cells LM Ql (Bld) 1+ *NA* (09/29/24 3:52 AM) Invalid Interpretation Code AH Workflow SS Laboratory - Microbiology an d Antimicrobial susceptibilityOrdered By: Hermelinda Baez on 09-29-2024 Bacteria identified Cx Nom (Bld) Blood Culture with fungus: No growth at 4 weeks. [facility] MGon 09-29-2024 Magnesium [Mass/Vol] 2.4 mg/dL Normal 1.6-2.[address] [facility] Comment on above: Performed By: #### G FR, MG, CBC, DIFF, MORPH, A1C, CMP ####[address] [address] No Panel Informationon 09-29 Microscopic examination of blood, culture Blood Culture: No Growth at 5 days. [facility] .GFRon 09-28-2024 Estimated Glomerular Filtration Rate 46 ml/min/1.73sqm Normal [facility] Comment on above: Result Comment: Stag es of Chronic Kidney Disease (CKD)Stage Description eGFR(ml/min/1.73 sq.m.)CKD 1 Normal kidney function or >=90 normal kindney function with possible kidney damage (ex. Proteinuria)CKD 2 Kidney damage with mild loss 60-89 of kidney functionCKD 3a Mild to moderate loss of kidney 45-59 functionCKD 3b Moderate to severe loss of 30-44 of kindey function CKD 4 Severe loss of kidney function 15-29CKD 5 Kidney failure <15Note: (go live 2024) the eGFR calculation was updated to the KD-EPI creatinine equation without a race factor to calculate theeGFR results. Performed By: #### G FR, CBC, MORPH, MG, DIFF, CMP, CK ####[place] [id number] [place] [address] .Manual Diffon 09-28-2024 Bands 2.0 % Normal 0.0-5.0 [facility] Comment on above: Performed By: #### G FR, CBC, MORPH, MG, DIFF, CMP, CK ####[place] [id number] [place] [address] Basophil %, Manual 0.0 % Normal 0.0-2.5 [facility] Comment on above: Performed By: #### G FR, CBC, MORPH, MG, DIFF, CMP, CK ####[address] [address] Basophil, Abs Manual 0.0 10 3/mcL Normal 0.0-0.3 [facility] Comment on above: Performed By: #### G FR, CBC, MORPH, MG, DIFF, CMP, CK ####[address] [address] Eosinophil %, Manual 0.0 % Normal 0.0-6.[address] [facility] Comment on above: Performed By: #### G FR, CBC, MORPH, MG, DIFF, CMP, CK ####[address] [address] Eosinophil, Abs Manual 0.0 10 3/mcL Normal 0.0-0.7 [facility] Comment on above: Performed By: #### G FR, CBC, MORPH, MG, DIFF, CMP, CK ####[address] [address] Lymphocyte %, Manual 6.0 % Low 20.0-40.[address] [facility] Comment on above: Performed By: #### G FR, CBC, MORPH, MG, DIFF, CMP, CK ####[address] [address] Lymphocyte, Abs Manual 1.2 10 3/mcL Normal 0.9-4.3 [facility] Comment on above: Performed By: #### G FR, CBC, MORPH, MG, DIFF, CMP, CK ####[address] [address] Monocyte %, Manual 5.0 % Normal 2.0-13.0 [facility] Comment on above: Performed By: #### G FR, CBC, MORPH, MG, DIFF, CMP, CK ####[address] [address] Monocyte, Abs Manual 1.0 10 3/mcL Normal 0.1-1.4 [facility] Comment on above: Performed By: #### G FR, CBC, MORPH, MG, DIFF, CMP, CK ####[address] [address] Neutrophil %, Manual 87.0 % High 50.0-75.[address] [facility] Comment on above: Performed By: #### G FR, CBC, MORPH, MG, DIFF, CMP, CK ####[place] [address] Neutrophil, Abs Manual 18.0 10 3/mcL High 2.3-8.1 [facility] Comment on above: Performed By: #### G FR, CBC, MORPH, MG, DIFF, CMP, CK ####[place] [address] Nucleated RBC 5.0 /100 WBC [facility] Comment on above: Performed By: #### G FR, CBC, MORPH, MG, DIFF, CMP, CK ####[place] [address] .Morphon 09-28-2024 Anisocytosis Ql (Bld) 1+ Normal [facility] Comment on above: Performed By: #### G FR, CBC, MORPH, MG, DIFF, CMP, CK ####[place] [address] Ovalocytes 1+ [facility] Comment on above: Performed By: #### G FR, CBC, MORPH, MG, DIFF, CMP, CK ####[place] [address] Platelet Estimate Decreased Normal [facility] Comment on above: Performed By: #### G FR, CBC, MORPH, MG, DIFF, CMP, CK ####[place] [address] Poik 1+ [facility] Comment on above: Performed By: #### G FR, CBC, MORPH, MG, DIFF, CMP, CK ####[place] [address] Polychrom 1+ [facility] Comment on above: Performed By: #### G FR, CBC, MORPH, MG, DIFF, CMP, CK ####[place] [address] Target Cell 1+ [facility] Comment on above: Performed By: #### G FR, CBC, MORPH, MG, DIFF, CMP, CK ####[address] [address] BGon 09-28-2024 Base excess Calc (Bld) [Moles/Vol] 0.3 mmol/L Normal [facility] Comment on above: Performed By: #### B G ####[place] [id number] CO2 [Moles/Vol] 24.1 mmol/L Normal 22.0-30.0 [facility] MAIN Comment on above: Performed By: #### B G ####[place] [id number] HCO3 (Bld) [Moles/Vol] 23.2 mmol/L Normal 21.0-29.0 [facility] MAIN Comment on above: Performed By: #### B G ####[place] [address] Oxygen (Bld) [Partial pressure] 115.4 mm[Hg] High 74.0-108.0 [facility] MAIN Comment on above: Performed By: #### B G ####[place] [address] Oxygen saturation in Blood 98.3 % High 92.0-96.0 [facility] MAIN Comment on above: Performed By: #### B G ####[place] [address] pCO2 29.9 mmHg Low 32.0-46.0 [facility] MAIN Comment on above: Performed By: #### B G ####[place] [id number] pH (Bld) 7.507 [pH] High 7.380-7.46 0 [facility] MAIN Comment on above: Performed By: #### B G ####[place] [id number] Base excess Calc (Bld) [Moles/Vol] -2.1000 mmol/L Normal [facility] MAIN Comment on above: Performed By: #### B G ####[place] [id number] CO2 [Moles/Vol] 22.3 mmol/L Normal 22.0-30.0 [facility] MAIN Comment on above: Performed By: #### B G ####[place] [address] HCO3 (Bld) [Moles/Vol] 21.4 mmol/L Normal 21.0-29.0 [facility] MAIN Comment on above: Performed By: #### B G ####[place] [address] Oxygen (Bld) [Partial pressure] 139.4 mm[Hg] High 74.0-108.0 [facility] MAIN Comment on above: Performed By: #### B G ####[place] [address] Oxygen saturation in Blood 99.1 % High 92.0-96.0 [facility] MA[facility] Comment on above: Performed By: #### B G ####[place] [address] pCO2 31.1 mmHg Low 32.0-46.0 [facility] MA[facility] Comment on above: Performed By: #### B G ####[place] [address] pH (Bld) 7.455 [pH] Normal 7.380-7.46 0 [facility] MAIN Comment on above: Performed By: #### B G ####[place] [address] CBCon 09-28-2024 WBC 20.2 10 3/mcL High 4.5-10.8 [facility] MAIN Comment on above: Performed By: #### G FR, CBC, MORPH, MG, DIFF, CMP, CK ####[place] [address] Platelet 80 10 3/mcL Low 150-450 [facility] MAIN Comment on above: Performed By: #### G FR, CBC, MORPH, MG, DIFF, CMP, CK ####[place] [address] Platelet mean volume (Bld) [Entitic vol] 11.4 fL High 6.4-10.5 [facility] MAIN Comment on above: Performed By: #### G FR, CBC, MORPH, MG, DIFF, CMP, CK ####[place] [address] Erythrocyte distribution width (RBC) [Ratio] 16.9 % High 11.5-15.5 [facility] Comment on above: Performed By: #### G FR, CBC, MORPH, MG, DIFF, CMP, CK ####[place] [address] Hematocrit (Bld) [Volume fraction] 23.8 % Low 40.0-52.0 [facility] Comment on above: Performed By: #### G FR, CBC, MORPH, MG, DIFF, CMP, CK ####[place] [address] Hgb 7.9 G/dL Low 13.0-17.5 [facility] Comment on above: Performed By: #### G FR, CBC, MORPH, MG, DIFF, CMP, CK ####[place] [address] MCH (RBC) [Entitic mass] 26.8 pg Low 27.0-33.0 [facility] Comment on above: Performed By: #### G FR, CBC, MORPH, MG, DIFF, CMP, CK ####[place] [address] MCHC 33.1 G/dL Normal 32.0-36.0 [facility] Comment on above: Performed By: #### G FR, CBC, MORPH, MG, DIFF, CMP, CK ####[place] [address] MCV (RBC) [Entitic vol] 81.0 fL Normal 81.0-100.0 [facility] Comment on above: Performed By: #### G FR, CBC, MORPH, MG, DIFF, CMP, CK ####[place] [address] RBC 2.94 10 6/mcL Low 4.50-6.00 [facility] Comment on above: Performed By: #### G FR, CBC, MORPH, MG, DIFF, CMP, CK ####[address] [address] CBLon 09-28-2024 CBL Normal [facility] CBL Normal [facility] CBL Normal [facility] CKon 09-28-2024 CK [Catalytic activity/Vol] 716 U/L High 7-185 [facility] Comment on above: Performed By: #### G FR, CBC, MORPH, MG, DIFF, CMP, CK ####[place] [address] CMPon 09-28-2024 Albumin Level 1.5 G/dL Low 3.2-4.8 [facility] Comment on above: Performed By: #### G FR, CBC, MORPH, MG, DIFF, CMP, CK ####[place] [address] Albumin/Globulin [Mass ratio] 0.2 {ratio} Low 0.9-1.6 [facility] Comment on above: Performed By: #### G FR, CBC, MORPH, MG, DIFF, CMP, CK ####[place] [address] ALP [Catalytic activity/Vol] 115 U/L Normal 38-126 [facility] Comment on above: Performed By: #### G FR, CBC, MORPH, MG, DIFF, CMP, CK ####[place] [address] ALT [Catalytic activity/Vol] 239 U/L High 12-55 [facility] Comment on above: Performed By: #### G FR, CBC, MORPH, MG, DIFF, CMP, CK ####[place] [address] AST [Catalytic activity/Vol] 603 U/L High 8-34 [facility] Comment on above: Performed By: #### G FR, CBC, MORPH, MG, DIFF, CMP, CK ####[place] [address] Bili Total 5.50 mg/dL High 0.20-1.20 [facility] Comment on above: Result Comment: Use of this assay is not recommended for patients undergoing treatment with eltrombopag due to the potential for falsely elevated results. Performed By: #### G FR, CBC, MORPH, MG, DIFF, CMP, CK ####[place] [address] BUN/Creatinine Ratio 39.1 ratio High 10.0-22.[address] [facility] Comment on above: Performed By: #### G FR, CBC, MORPH, MG, DIFF, CMP, CK ####[place] [address] Calcium [Mass/Vol] 7.5 mg/dL Low 8.7-10.4 [facility] Comment on above: Performed By: #### G FR, CBC, MORPH, MG, DIFF, CMP, CK ####[place] [address] Chloride [Moles/Vol] 116 mmol/L High 98-[address] [facility] Comment on above: Performed By: #### G FR, CBC, MORPH, MG, DIFF, CMP, CK ####[place] [address] CO2 [Moles/Vol] 23 mmol/L Normal 22-32 [facility] Comment on above: Performed By: #### G FR, CBC, MORPH, MG, DIFF, CMP, CK ####[place] [address] Creatinine [Mass/Vol] 1.97 mg/dL High 0.60-1.[address] [facility] Comment on above: Result Comment: Test ing performed on [employer] analyzer using enzymatic creatinine methodology. Performed By: #### G FR, CBC, MORPH, MG, DIFF, CMP, CK ####[place] [address] Electrolyte Balance 12.0 mEq/L Normal 4.0-15.0 [facility] Comment on above: Performed By: #### G FR, CBC, MORPH, MG, DIFF, CMP, CK ####[place] [address] Globulin 6.1 G/dL High 2.5-4.2 [facility] Comment on above: Performed By: #### G FR, CBC, MORPH, MG, DIFF, CMP, CK ####[place] [id number] [address] [place] [id number] Glucose [Mass/Vol] 201 mg/dL High 70-110 [facility] Comment on above: Performed By: #### G FR, CBC, MORPH, MG, DIFF, CMP, CK ####[address] [address] Potassium [Moles/Vol] 3.9 mmol/L Normal 3.5-5.[address] [facility] Comment on above: Performed By: #### G FR, CBC, MORPH, MG, DIFF, CMP, CK ####[address] [address] Sodium [Moles/Vol] 151 mmol/L High 136-145 [facility] Comment on above: Performed By: #### G FR, CBC, MORPH, MG, DIFF, CMP, CK ####[address] [address] Total Protein 7.6 G/dL Normal 5.7-8.2 [facility] Comment on above: Performed By: #### G FR, CBC, MORPH, MG, DIFF, CMP, CK ####[address] [address] Urea nitrogen [Mass/Vol] 77.0 mg/dL High 8.0-22.0 [facility] Comment on above: Performed By: #### G FR, CBC, MORPH, MG, DIFF, CMP, CK ####[address] [address] CRESPon 09-28-2024 CRESP Normal [facility] LABORATORYOrdered By: SYSTEM SYSTEM on 09-28-2024 Band form neutrophils/100 WBC (Bld) 2.0 % Normal 0.0 - 5.0 % AH Workflow SS CK [Catalytic activity/Vol] 716 U/L High 7 - 185 U/L AH ADM SS Target cells LM Ql (Bld) 1+ *NA* (09/28/24 3:03 AM) Invalid Interpretation Code AH Workflow SS MGon 09-28-2024 Magnesium [Mass/Vol] 2.9 mg/dL High 1.6-2.[address] [facility] Comment on above: Performed By: #### G FR, CBC, MORPH, MG, DIFF, CMP, CK ####[place] [address] US ABDOMEN LIMITEDon 025 US ABDOMEN LIMITED Normal [facility] XR CHEST 1 VIEWon 09-28-2024 XR CHEST 1 VIEW Normal [facility] .GFRon 09-27-2024 Estimated Glomerular Filtration Rate 47 ml/min/1.73sqm Normal [facility] Comment on above: Result Comment: Stag es of Chronic Kidney Disease (CKD)Stage Description eGFR(ml/min/1.73 sq.m.)CKD 1 Normal kidney function or >=90 normal kindney function with possible kidney damage (ex. Proteinuria)CKD 2 Kidney damage with mild loss 60-89 of kidney functionCKD 3a Mild to moderate loss of kidney 45-59 functionCKD 3b Moderate to severe loss of 30-44 of kindey function CKD 4 Severe loss of kidney function 15-29CKD 5 Kidney failure <15Note: (go live 2024) the eGFR calculation was updated to the KD-EPI creatinine equation without a race factor to calculate theeGFR results. Performed By: #### C MP, MG, MORPH, GFR, DIFF, CBC ####[place] [address] .Manual Diffon 09-27-2024 Bands 2.0 % Normal 0.0-5.0 [facility] Comment on above: Performed By: #### C MP, MG, MORPH, GFR, DIFF, CBC ####[place] [address] Basophil %, Manual 0.0 % Normal 0.0-2.5 [facility] Comment on above: Performed By: #### C MP, MG, MORPH, GFR, DIFF, CBC ####[place] [address] Basophil, Abs Manual 0.0 10 3/mcL Normal 0.0-0.3 [facility] Comment on above: Performed By: #### C MP, MG, MORPH, GFR, DIFF, CBC ####[place] [address] Eosinophil %, Manual 0.0 % Normal 0.0-6.[address] [facility] Comment on above: Performed By: #### C MP, MG, MORPH, GFR, DIFF, CBC ####[address] [address] Eosinophil, Abs Manual 0.0 10 3/mcL Normal 0.0-0.7 [facility] Comment on above: Performed By: #### C MP, MG, MORPH, GFR, DIFF, CBC ####[place] [address] Lymphocyte %, Manual 5.0 % Low 20.0-40.[address] [facility] Comment on above: Performed By: #### C MP, MG, MORPH, GFR, DIFF, CBC ####[place] [address] Lymphocyte, Abs Manual 1.1 10 3/mcL Normal 0.9-4.3 [facility] Comment on above: Performed By: #### C MP, MG, MORPH, GFR, DIFF, CBC ####[place] [address] Metamyelocyte 1.0 % Normal [facility] Comment on above: Performed By: #### C MP, MG, MORPH, GFR, DIFF, CBC ####[place] [address] Monocyte %, Manual 4.0 % Normal 2.0-13.0 [facility] Comment on above: Performed By: #### C MP, MG, MORPH, GFR, DIFF, CBC ####[place] [id number] Monocyte, Abs Manual 0.9 10 3/mcL Normal 0.1-1.4 [facility] Comment on above: Performed By: #### C MP, MG, MORPH, GFR, DIFF, CBC ####[place] [address] Neutrophil %, Manual 88.0 % High 50.0-75.[address] [facility] Comment on above: Performed By: #### C MP, MG, MORPH, GFR, DIFF, CBC ####[place] [id number] Neutrophil, Abs Manual 20.2 10 3/mcL High 2.3-8.1 [facility] Comment on above: Performed By: #### C MP, MG, MORPH, GFR, DIFF, CBC ####[place] [address] Nucleated RBC 5.0 /100 WBC Normal [facility] Comment on above: Performed By: #### C MP, MG, MORPH, GFR, DIFF, CBC ####[place] [address] .Morphon 09-27-2024 Anisocytosis Ql (Bld) 1+ Normal [facility] Comment on above: Performed By: #### C MP, MG, MORPH, GFR, DIFF, CBC ####[place] [address] Platelet Estimate Slt Decreased Normal [facility] Comment on above: Performed By: #### C MP, MG, MORPH, GFR, DIFF, CBC ####[place] [address] Polychrom 1+ Normal [facility] Comment on above: Performed By: #### C MP, MG, MORPH, GFR, DIFF, CBC ####[place] [address] BGon 09-27-2024 Base excess Calc (Bld) [Moles/Vol] -1.5000 mmol/L Normal [facility] Comment on above: Performed By: #### B G ####[place] [address] CO2 [Moles/Vol] 22.7 mmol/L Normal 22.0-30.0 [facility] Comment on above: Performed By: #### B G ####[place] [address] HCO3 (Bld) [Moles/Vol] 21.8 mmol/L Normal 21.0-29.0 [facility] Comment on above: Performed By: #### B G ####[place] [address] Oxygen (Bld) [Partial pressure] 171.5 mm[Hg] High 74.0-108.0 [facility] Comment on above: Performed By: #### B G ####[place] [address] Oxygen saturation in Blood 99.4 % High 92.0-96.0 [facility] Comment on above: Performed By: #### B G ####[place] [id number] pCO2 31.8 mmHg Low 32.0-46.0 [facility] Comment on above: Performed By: #### B G ####[place] [address] pH (Bld) 7.453 [pH] Normal 7.380-7.46 0 [facility] Comment on above: Performed By: #### B G ####[place] [address] CBCon 09-27-2024 WBC 22.4 10 3/mcL High 4.5-10.8 [facility] Comment on above: Order Comment: Speci men clotted. Recollect. Performed By: #### C MP, MG, MORPH, GFR, DIFF, CBC ####[place] [address] Erythrocyte distribution width (RBC) [Ratio] 16.5 % High 11.5-15.5 [facility] Comment on above: Order Comment: Speci men clotted. Recollect. Performed By: #### C MP, MG, MORPH, GFR, DIFF, CBC ####[place] [address] Hematocrit (Bld) [Volume fraction] 27.0 % Low 40.0-52.0 [facility] Comment on above: Order Comment: Speci men clotted. Recollect. Performed By: #### C MP, MG, MORPH, GFR, DIFF, CBC ####[place] [address] Hgb 8.8 G/dL Low 13.0-17.5 [facility] Comment on above: Order Comment: Speci men clotted. Recollect. Performed By: #### C MP, MG, MORPH, GFR, DIFF, CBC ####[place] [address] MCH (RBC) [Entitic mass] 26.2 pg Low 27.0-33.0 [facility] Comment on above: Order Comment: Speci men clotted. Recollect. Performed By: #### C MP, MG, MORPH, GFR, DIFF, CBC ####[place] [address] MCHC 32.7 G/dL Normal 32.0-36.0 [facility] Comment on above: Order Comment: Speci men clotted. Recollect. Performed By: #### C MP, MG, MORPH, GFR, DIFF, CBC ####[place] [address] MCV (RBC) [Entitic vol] 80.1 fL Low 81.0-100.0 [facility] Comment on above: Order Comment: Speci men clotted. Recollect. Performed By: #### C MP, MG, MORPH, GFR, DIFF, CBC ####[place] [address] Platelet 106 10 3/mcL Low 150-450 [facility] Comment on above: Order Comment: Speci men clotted. Recollect. Result Comment: Plat elet results confirmed. Specimen was checked for clot Performed By: #### C MP, MG, MORPH, GFR, DIFF, CBC ####[place] [address] Platelet mean volume (Bld) [Entitic vol] 10.8 fL High 6.4-10.5 [facility] Comment on above: Order Comment: Speci men clotted. Recollect. Performed By: #### C MP, MG, MORPH, GFR, DIFF, CBC ####[place] [address] RBC 3.37 10 6/mcL Low 4.50-6.00 [facility] Comment on above: Order Comment: Speci men clotted. Recollect. Performed By: #### C MP, MG, MORPH, GFR, DIFF, CBC ####[place] [address] CBLon 09-27-2024 CBL Normal [facility] CKon 09-27-2024 CK [Catalytic activity/Vol] 1261 U/L High 7-185 [facility] Comment on above: Performed By: #### C K ####[address] [address] CMPon 09-27-2024 Albumin Level 1.4 G/dL Low 3.2-4.8 [facility] Comment on above: Performed By: #### C MP, MG, MORPH, GFR, DIFF, CBC ####[address] [address] Albumin/Globulin [Mass ratio] 0.2 {ratio} Low 0.9-1.6 [facility] Comment on above: Performed By: #### C MP, MG, MORPH, GFR, DIFF, CBC ####[place] [address] ALP [Catalytic activity/Vol] 137 U/L High 38-126 [facility] Comment on above: Performed By: #### C MP, MG, MORPH, GFR, DIFF, CBC ####[address] [address] ALT [Catalytic activity/Vol] 333 U/L High 12-55 [facility] Comment on above: Performed By: #### C MP, MG, MORPH, GFR, DIFF, CBC ####[address] [address] AST [Catalytic activity/Vol] 994 U/L High 8-34 [facility] Comment on above: Performed By: #### C MP, MG, MORPH, GFR, DIFF, CBC ####[address] [address] Bili Total 7.70 mg/dL High 0.20-1.20 [facility] Comment on above: Result Comment: Use of this assay is not recommended for patients undergoing treatment with eltrombopag due to the potential for falsely elevated results. Performed By: #### C MP, MG, MORPH, GFR, DIFF, CBC ####[place] [address] BUN/Creatinine Ratio 43.8 ratio High 10.0-22.[address] [facility] Comment on above: Performed By: #### C MP, MG, MORPH, GFR, DIFF, CBC ####[place] [address] Calcium [Mass/Vol] 7.2 mg/dL Low 8.7-10.4 [facility] Comment on above: Performed By: #### C MP, MG, MORPH, GFR, DIFF, CBC ####[place] [address] Chloride [Moles/Vol] 115 mmol/L High 98-[address] [facility] Comment on above: Performed By: #### C MP, MG, MORPH, GFR, DIFF, CBC ####[place] [address] CO2 [Moles/Vol] 24 mmol/L Normal 22-32 [facility] Comment on above: Performed By: #### C MP, MG, MORPH, GFR, DIFF, CBC ####[place] [address] Creatinine [Mass/Vol] 1.94 mg/dL High 0.60-1.[address] [facility] Comment on above: Result Comment: Test ing performed on [employer] analyzer using enzymatic creatinine methodology. Performed By: #### C MP, MG, MORPH, GFR, DIFF, CBC ####[place] [address] Electrolyte Balance 11.0 mEq/L Normal 4.0-15.0 [facility] Comment on above: Performed By: #### C MP, MG, MORPH, GFR, DIFF, CBC ####[place] [address] Globulin 6.1 G/dL High 2.5-4.2 [facility] Comment on above: Performed By: #### C MP, MG, MORPH, GFR, DIFF, CBC ####[place] [address] Glucose [Mass/Vol] 180 mg/dL High 70-110 [facility] Comment on above: Performed By: #### C MP, MG, MORPH, GFR, DIFF, CBC ####[place] [address] Potassium [Moles/Vol] 4.5 mmol/L Normal 3.5-5.[address] [facility] Comment on above: Performed By: #### C MP, MG, MORPH, GFR, DIFF, CBC ####[place] [address] Sodium [Moles/Vol] 150 mmol/L High 136-145 [facility] Comment on above: Performed By: #### C MP, MG, MORPH, GFR, DIFF, CBC ####[place] [address] Total Protein 7.5 G/dL Normal 5.7-8.2 [facility] Comment on above: Performed By: #### C MP, MG, MORPH, GFR, DIFF, CBC ####[place] [address] Urea nitrogen [Mass/Vol] 85.0 mg/dL High 8.0-22.0 [facility] Comment on above: Performed By: #### C MP, MG, MORPH, GFR, DIFF, CBC ####[place] [address] CRESPon 09-27-2024 CRESP [facility] HCQPCRon 09-27-2024 HCV Test Info Comment [facility] Comment on above: Result Comment: The quantitative range of this assay is 15 IU/mL to 100million IU/mL.Performed At: [facility] [id number] Sparks MD Ph:[phone] Performed By: #### C MP, HEPAC, MG, [id number], RPR, CBC, MORPH, HIV, GFR, DIFF ####[place] [address] Hep C Qn Not detected [facility] Comment on above: Performed By: #### C MP, HEPAC, [place], [id number], RPR, CBC, MORPH, HIV, GFR, DIFF ####[place] [address] LABORATORYOrdered By: SYSTEM SYSTEM on 09-27-2024 Band form neutrophils/100 WBC (Bld) 2.0 % Normal 0.0 - 5.0 % AH Workflow SS Metamyelocytes/100 WBC (Bld) 1.0 % Invalid Interpretation Code AH Workflow SS CK [Catalytic activity/Vol] 1261 U/L High 7 - 185 U/L AH ADM SS Lactate [Moles/Vol] 2.3 mmol/L High 0.5 - 2. 2 mmol/L AH ADM SS Lactate [Moles/Vol] 1.8 mmol/L Normal 0.5 - 2. 2 mmol/L AH ADM SS LACon 09-27-2024 Lactic Acid Lvl 2.3 mmol/L High 0.5-2.2 [facility] Comment on above: Performed By: #### L AC ####[place] [address] Lactic Acid Lvl 1.8 mmol/L Normal 0.5-2.2 [facility] Comment on above: Performed By: #### L AC ####[place] [address] MGon 09-27-2024 Magnesium [Mass/Vol] 3.3 mg/dL High 1.6-2.[address] [facility] Comment on above: Performed By: #### C MP, MG, MORPH, GFR, DIFF, CBC ####[place] [address] No Panel Informationon 09-27 GSAER Gram Positive Cocci in [facility] GSANA Gram Positive Cocci in [facility] Microscopic examination of blood, culture Staphylococcus aureus Isolated from aerobe and anaerobe bottles. Refer to previous culture for susceptibility. [id number] [facility] XR CHEST 1 VIEWon 09-27-2024 XR CHEST 1 VIEW [facility] .GFRon 09-26-2024 Estimated Glomerular Filtration Rate 46 ml/min/1.73sqm [facility] Comment on above: Result Comment: Stag es of Chronic Kidney Disease (CKD)Stage Description eGFR(ml/min/1.73 sq.m.)CKD 1 Normal kidney function or >=90 normal kindney function with possible kidney damage (ex. Proteinuria)CKD 2 Kidney damage with mild loss 60-89 of kidney functionCKD 3a Mild to moderate loss of kidney 45-59 functionCKD 3b Moderate to severe loss of 30-44 of kindey function CKD 4 Severe loss of kidney function 15-29CKD 5 Kidney failure <15Note: (go live 2024) the eGFR calculation was updated to the KD-EPI creatinine equation without a race factor to calculate theeGFR results. Performed By: #### C MP, HEPAC, MG, [id number], RPR, CBC, MORPH, HIV, GFR, DIFF ####[place] [address] .Manual Diffon 09-26-2024 Basophil %, Manual 0.0 % Normal 0.0-2.5 [facility] Comment on above: Performed By: #### C MP, HEPAC, MG, [id number], RPR, CBC, MORPH, HIV, GFR, DIFF ####[place] [address] Basophil, Abs Manual 0.0 10 3/mcL Normal 0.0-0.3 [facility] Comment on above: Performed By: #### C MP, HEPAC, MG, [id number], RPR, CBC, MORPH, HIV, GFR, DIFF ####[place] [address] Eosinophil %, Manual 0.0 % Normal 0.0-6.[address] [facility] Comment on above: Performed By: #### C MP, HEPAC, MG, [id number], RPR, CBC, MORPH, HIV, GFR, DIFF ####[place] [address] Eosinophil, Abs Manual 0.0 10 3/mcL Normal 0.0-0.7 [facility] Comment on above: Performed By: #### C MP, HEPAC, MG, [id number], RPR, CBC, MORPH, HIV, GFR, DIFF ####[place] [address] Lymphocyte %, Manual 11.0 % Low 20.0-40.[address] [facility] Comment on above: Performed By: #### C MP, HEPAC, MG, [id number], RPR, CBC, MORPH, HIV, GFR, DIFF ####[address] [address] Lymphocyte, Abs Manual 1.9 10 3/mcL Normal 0.9-4.3 [facility] Comment on above: Performed By: #### C MP, HEPAC, MG, [id number], RPR, CBC, MORPH, HIV, GFR, DIFF ####[address] [address] Monocyte %, Manual 2.0 % Normal 2.0-13.0 [facility] Comment on above: Performed By: #### C MP, HEPAC, MG, [id number], RPR, CBC, MORPH, HIV, GFR, DIFF ####[address] [address] Monocyte, Abs Manual 0.3 10 3/mcL Normal 0.1-1.4 [facility] Comment on above: Performed By: #### C MP, HEPAC, MG, [id number], RPR, CBC, MORPH, HIV, GFR, DIFF ####[address] [address] Neutrophil %, Manual 87.0 % High 50.0-75.[address] [facility] Comment on above: Performed By: #### C MP, HEPAC, MG, [id number], RPR, CBC, MORPH, HIV, GFR, DIFF ####[address] [address] Neutrophil, Abs Manual 14.6 10 3/mcL High 2.3-8.1 [facility] Comment on above: Performed By: #### C MP, HEPAC, MG, [id number], RPR, CBC, MORPH, HIV, GFR, DIFF ####[address] [address] Nucleated RBC 0.0 /100 WBC Normal [facility] Comment on above: Performed By: #### C MP, HEPAC, MG, 907211, RPR, CBC, MORPH, HIV, GFR, DIFF ####[address] [address] .Morphon 09-26-2024 Anisocytosis Ql (Bld) 1+ Normal [facility] Comment on above: Performed By: #### C MP, HEPAC, MG, [id number], RPR, CBC, MORPH, HIV, GFR, DIFF ####[place] [address] Microcytosis 1+ Normal [facility] Comment on above: Performed By: #### C MP, HEPAC, MG, 645297, RPR, CBC, MORPH, HIV, GFR, DIFF ####[place] [address] Platelet Estimate Decreased Normal [facility] Comment on above: Performed By: #### C MP, HEPAC, [place], [id number], RPR, CBC, MORPH, HIV, GFR, DIFF ####[place] [address] Poik 1+ Normal [facility] Comment on above: Performed By: #### C MP, HEPAC, MG, 528676, RPR, CBC, MORPH, HIV, GFR, DIFF ####[place] [address] Target Cell 1+ Normal [facility] Comment on above: Performed By: #### C MP, HEPAC, MG, 499506, RPR, CBC, MORPH, HIV, GFR, DIFF ####[place] [address] Vacuolated Neutrophils 1+ Normal [facility] Comment on above: Performed By: #### C MP, HEPAC, MG, 436683, RPR, CBC, MORPH, HIV, GFR, DIFF ####[place] [address] ABO/Rh (Gel)on 09-26-2024 ABO/Rh Interp Positive Invalid Interpretation Code [facility] Comment on above: Performed By: #### A BSGEL, ABOGEL, HH ####[place] [address] ABS (Gel)on 09-26-2024 ABSC Interp (Gel) Negative Normal [facility] Comment on above: Performed By: #### A DORON MIRELES, ####[place] [address] BGon 09-26-2024 Base excess Calc (Bld) [Moles/Vol] -0.6000 mmol/L Normal [facility] Comment on above: Performed By: #### B G ####[place] [address] CO2 [Moles/Vol] 23.5 mmol/L Normal 22.0-30.0 [facility] Comment on above: Performed By: #### B G ####[place] [address] HCO3 (Bld) [Moles/Vol] 22.6 mmol/L Normal 21.0-29.0 [facility] Comment on above: Performed By: #### B G ####[place] [address] Oxygen (Bld) [Partial pressure] 95.8 mm[Hg] Normal 74.0-108.0 [facility] Comment on above: Performed By: #### B G ####[place] [address] Oxygen saturation in Blood 96.9 % High 92.0-96.0 [facility] Comment on above: Performed By: #### B G ####[place] [address] pCO2 30.7 mmHg Low 32.0-46.0 [facility] Comment on above: Performed By: #### B G ####[place] [address] pH (Bld) 7.484 [pH] High 7.380-7.46 0 [facility] Comment on above: Performed By: #### B G ####[place] [address] CBCon 09-26-2024 Erythrocyte distribution width (RBC) [Ratio] 16.6 % High 11.5-15.5 [facility] Comment on above: Performed By: #### C MP, HEPAC, MG, [id number], RPR, CBC, MORPH, HIV, GFR, DIFF ####[place] [address] Hematocrit (Bld) [Volume fraction] 18.0 % Low 40.0-52.0 [facility] Comment on above: Performed By: #### C MP, HEPAC, MG, 834871, RPR, CBC, MORPH, HIV, GFR, DIFF ####[place] [address] Hgb 6.0 G/dL Critically abnormal 13.0-17.5 [facility] Comment on above: Performed By: #### C MP, HEPAC, MG, [id number], RPR, CBC, MORPH, HIV, GFR, DIFF ####[place] [address] MCH (RBC) [Entitic mass] 26.5 pg Low 27.0-33.0 [facility] Comment on above: Performed By: #### C MP, HEPAC, MG, 162565, RPR, CBC, MORPH, HIV, GFR, DIFF ####[place] [address] MCHC 33.2 G/dL Normal 32.0-36.0 [facility] Comment on above: Performed By: #### C MP, HEPAC, MG, 985252, RPR, CBC, MORPH, HIV, GFR, DIFF ####[place] [address] MCV (RBC) [Entitic vol] 79.8 fL Low 81.0-100.0 [facility] Comment on above: Performed By: #### C MP, HEPAC, MG, 196518, RPR, CBC, MORPH, HIV, GFR, DIFF ####[place] [address] Platelet 93 10 3/mcL Low 150-450 [facility] Comment on above: Performed By: #### C MP, HEPAC, MG, 135668, RPR, CBC, MORPH, HIV, GFR, DIFF ####[place] [address] Platelet mean volume (Bld) [Entitic vol] 10.6 fL High 6.4-10.5 [facility] Comment on above: Performed By: #### C MP, HEPAC, MG, 252685, RPR, CBC, MORPH, HIV, GFR, DIFF ####[place] [id number] RBC 2.25 10 6/mcL Low 4.50-6.00 [facility] Comment on above: Performed By: #### C MP, HEPAC, MG, 514155, RPR, CBC, MORPH, HIV, GFR, DIFF ####[place] [id number] WBC 16.8 10 3/mcL High 4.5-10.8 [facility] Comment on above: Performed By: #### C MP, HEPAC, MG, 154657, RPR, CBC, MORPH, HIV, GFR, DIFF ####[place] [id number] CBLon 09-26-2024 CBL Normal [facility] Albumin Level 1.4 G/dL Low 3.2-4.8 [facility] Comment on above: Performed By: #### C MP, HEPAC, MG, 312646, RPR, CBC, MORPH, HIV, GFR, DIFF ####[place] [id number] Albumin/Globulin [Mass ratio] 0.3 {ratio} Low 0.9-1.6 [facility] Comment on above: Performed By: #### C MP, HEPAC, MG, 037567, RPR, CBC, MORPH, HIV, GFR, DIFF ####[place] [phone] ALP [Catalytic activity/Vol] 132 U/L High 38-126 [facility] Comment on above: Performed By: #### C MP, HEPAC, MG, 275825, RPR, CBC, MORPH, HIV, GFR, DIFF ####[address] [place], [place] [address] ALT [Catalytic activity/Vol] 287 U/L High 12-55 [facility] Comment on above: Performed By: #### C MP, HEPAC, MG, 817659, RPR, CBC, MORPH, HIV, GFR, DIFF ####[place] [id number] [address] [place] [address] AST [Catalytic activity/Vol] 1032 U/L High 8-34 [facility] Comment on above: Performed By: #### C MP, HEPAC, MG, 882574, RPR, CBC, MORPH, HIV, GFR, DIFF ####[address] [address] Bili Total 6.00 mg/dL High 0.20-1.20 [facility] Comment on above: Result Comment: Use of this assay is not recommended for patients undergoing treatment with eltrombopag due to the potential for falsely elevated results. Performed By: #### C MP, HEPAC, MG, 299056, RPR, CBC, MORPH, HIV, GFR, DIFF ####[address] [address] BUN/Creatinine Ratio 46.2 ratio High 10.0-22.[address] [facility] Comment on above: Performed By: #### C MP, HEPAC, MG, 086779, RPR, CBC, MORPH, HIV, GFR, DIFF ####[address] [address] Calcium [Mass/Vol] 7.4 mg/dL Low 8.7-10.4 [facility] Comment on above: Performed By: #### C MP, HEPAC, MG, 260270, RPR, CBC, MORPH, HIV, GFR, DIFF ####[place] [id number] [address] [place] [address] Chloride [Moles/Vol] 114 mmol/L High 98-[address] [facility] Comment on above: Performed By: #### C MP, HEPAC, MG, 901360, RPR, CBC, MORPH, HIV, GFR, DIFF ####[address] [address] CO2 [Moles/Vol] 24 mmol/L Normal 22-32 [facility] Comment on above: Performed By: #### C MP, HEPAC, MG, 991192, RPR, CBC, MORPH, HIV, GFR, DIFF ####[address] [address] Creatinine [Mass/Vol] 1.99 mg/dL High 0.60-1.[address] [facility] Comment on above: Result Comment: Test ing performed on [employer] analyzer using enzymatic creatinine methodology. Performed By: #### C MP, HEPAC, MG, 923376, RPR, CBC, MORPH, HIV, GFR, DIFF ####[address] [address] Electrolyte Balance 12.0 mEq/L Normal 4.0-15.0 [facility] Comment on above: Performed By: #### C MP, HEPAC, MG, 880689, RPR, CBC, MORPH, HIV, GFR, DIFF ####[address] [address] Globulin 5.5 G/dL High 2.5-4.2 [facility] Comment on above: Performed By: #### C MP, HEPAC, MG, 496251, RPR, CBC, MORPH, HIV, GFR, DIFF ####[address] [address] Glucose [Mass/Vol] 133 mg/dL High 70-110 [facility] Comment on above: Performed By: #### C MP, HEPAC, MG, 097411, RPR, CBC, MORPH, HIV, GFR, DIFF ####[address] [address] Potassium [Moles/Vol] 4.8 mmol/L Normal 3.5-5.[address] [facility] Comment on above: Performed By: #### C MP, HEPAC, MG, 482470, RPR, CBC, MORPH, HIV, GFR, DIFF ####[address] [address] Sodium [Moles/Vol] 150 mmol/L High 136-145 [facility] Comment on above: Performed By: #### C MP, HEPAC, MG, 608797, RPR, CBC, MORPH, HIV, GFR, DIFF ####[address] [address] Total Protein 6.9 G/dL Normal 5.7-8.2 [facility] Comment on above: Performed By: #### C MP, HEPAC, MG, 318523, RPR, CBC, MORPH, HIV, GFR, DIFF ####[address] [address] Urea nitrogen [Mass/Vol] 92.0 mg/dL High 8.0-22.0 [facility] Comment on above: Performed By: #### C MP, HEPAC, MG, 789685, RPR, CBC, MORPH, HIV, GFR, DIFF ####[address] [address] HEPACon 09-26-2024 Hep A IgM Ab Int See [facility] MAIN Comment on above: Result Comment: Clin ical Interpretation: No serological evidence of a current Hepatitis A infection. Performed By: #### C MP, HEPAC, MG, 894137, RPR, CBC, MORPH, HIV, GFR, DIFF ####[address] [address] Hep B Core IgM Ab Int See [facility] MAIN Comment on above: Result Comment: Clin ical Interpretation: Samples with a value < 0.80 Index are considered nonreactive (negative) for IgM antibodies to hepatitis B core antigen. Performed By: #### C MP, HEPAC, MG, 748792, RPR, CBC, MORPH, HIV, GFR, DIFF ####[address] [address] Hep C Ab Reactive Abnormal Non-Reacti ve [facility] Comment on above: Performed By: #### C MP, HEPAC, MG, 812639, RPR, CBC, MORPH, HIV, GFR, DIFF ####[address] [address] Hep C Ab Int See [facility] MAIN Comment on above: Result Comment: Clin ical Interpretation: Reactive: Samples with a value >/= 1.00 index are considered reactive for IgG antibodies to HCV. The presence of anti-HCV may be indicative of recent and/or past infection by Hepatitis C Virus. PATIENT MAY BE INFECTIOUS. PLEASE INFORM MUSHROOM PACKER. Supplemental testing for HCV RNA may detect the presence of active HCV infection. The HCV RT-PCR Quant (Non-Graph)assay (HCQPCR)has been ordered. This result is a reportable disease Infection Control has been notified. Performed By: #### C MP, HEPAC, MG, 025656, RPR, CBC, MORPH, HIV, GFR, DIFF ####[place] [address] Hep A IgM Ab Non-[facility] Comment on above: Performed By: #### C MP, HEPAC, MG, 652212, RPR, CBC, MORPH, HIV, GFR, DIFF ####[place] [address] Hep B Core IgM Ab Non-Reactive [facility] Comment on above: Performed By: #### C MP, HEPAC, MG, 204086, RPR, CBC, MORPH, HIV, GFR, DIFF ####[place] [address] Hep B Surf Ag Non-Reactive Normal [facility] Comment on above: Performed By: #### C MP, HEPAC, MG, 007891, RPR, CBC, MORPH, HIV, GFR, DIFF ####[place] [address] HHon 09-26-2024 Hematocrit (Bld) [Volume fraction] 24.9 % Low 40.0-52.0 [facility] Comment on above: Performed By: #### [facility] ####[place] [address] Hgb 8.1 G/dL Low 13.0-17.5 [facility] Comment on above: Performed By: #### [facility] ####[place] [address] HIVon 09-26-2024 HIV 1/2 Ab Non-Reactive Normal Non-Reacti ve [facility] Comment on above: Result Comment: Spec imen is negative for anti-HIV-1 and anti-HIV-2. Performed By: #### C MP, HEPAC, MG, 359608, RPR, CBC, MORPH, HIV, GFR, DIFF ####[facility] [place] [address] LABORATORYOrdered By: Raisa Jimenez on 09-26-2024 ABO and Rh group Nom (Bld) Blood group O Rh(D) positive Invalid Interpretation Code BB Auto SS Blood group antibody screen Ql Negative ABSC (09/26/24 5:42 AM) Normal BB Auto SS LABORATORYOrdered By: Eletrogóes CONTRIBUTOR_SYSTEM on 09-26-2024 HCV Test Info (LC) Comment Invalid Interpretation Code [facility] Comment on above: Result Comment: The quantitative range of this assay is 15 IU/mL to 100 million IU/mL. Performed At: [address] [id number] Javed Sparks MD Ph:[phone] Hep C Qn (LC) Not detected Invalid Interpretation Code Sendouts LABORATORYOrdered By: Cecelia Chris on 09-26-2024 Cholesterol [Mass/Vol] 95 mg/dL Normal 50 - 199 mg/dL [facility] Comment on above: Interpretive Data: C holesterol Reference Interval: Less than 200 Desirable 200-239 Borderline high risk 240 and above High risk Cholesterol in HDL [Mass/Vol] mg/dL Low 40 - 59 mg/dL [facility] Cholesterol in LDL [Mass/Vol] Unable to Calculate Invalid Interpretation Code 0 - 129 [facility] Comment on above: Result Comment: Unab le to calculate this test result accurately. Results used to calculate this test are outside the reportable range. Triglyceride [Mass/Vol] 234 mg/dL High 3 - 149 mg/dL [facility] SS LABORATORYOrdered By: Marleen Leary on 09-26-2024 HAV IgM IA Ql See Interp 33 *NA* (09/26/24 3:03 AM) Invalid Interpretation Code Chemistry S Comment on above: Result Comment: Clinical Interpretation: No serological evidence of a current Hepatitis A infection. HAV IgM IA Ql Non-Reactive (09/26/24 3:03 AM) Normal Non-Reacti ve ADM SS HBV core IgM IA Ql See Interp 32 *NA* (09/26/24 3:03 AM) Invalid Interpretation Code Chemistry S Comment on above: Result Comment: Clinical Interpretation: Samples with a value < 0.80 Index are considered nonreactive (negative) for IgM antibodies to hepatitis B core antigen. HBV core IgM IA Ql Non-Reactive (09/26/24 3:03 AM) Normal Non-Reacti ve AH ADM SS HBV surface Ag IA Ql Non-Reactive (09/26/24 3:03 AM) Normal Non-Reacti ve ADM SS HCV Ab IA Ql Reactive *ABN* (09/26/24 3:03 AM) Invalid Interpretation Code Non-Reacti ve ADM SS HCV Ab IA Ql See Interp 34 *NA* (09/26/24 3:03 AM) Invalid Interpretation Code Chemistry S Comment on above: Result Comment: Clinical Interpretation: Reactive: Samples with a value >/= 1.00 index are considered reactive for IgG antibodies to HCV. The presence of anti-HCV may be indicative of recent and/or past infection by Hepatitis C Virus. PATIENT MAY BE INFECTIOUS. PLEASE INFORM MUSHROOM PACKER. Supplemental testing for HCV RNA may detect the presence of active HCV infection. The HCV RT-PCR Quant (Non-Graph)assay (HCQPCR)has been ordered. This result is a reportable disease Infection Control has been notified. HIV 1+2 Ab IA Ql Non-Reactive (09/26/24 3:03 AM) Normal Non-Reacti ve ADM SS HIV 1+2 Ab IA Ql Negative Invalid Interpretation Code Chemistry S LABORATORYOrdered By: SYSTEM SYSTEM on 09-26-2024 Microcytes Ql (Bld) 1+ *NA* (09/26/24 3:03 AM) Invalid Interpretation Code Workflow SS Target cells LM Ql (Bld) 1+ *NA* (09/26/24 3:03 AM) Invalid Interpretation Code Workflow SS Vacuolated Neutrophils 1+ *NA* (09/26/24 3:03 AM) Invalid Interpretation Code Workflow SS LABORATORYOrdered By: Madonna Diaz on 09-26-2024 Reagin Ab RPR Ql (S) Non-Reactive 27 (09/26/24 3:03 AM) Normal Non-Reacti ve [facility] SS Comment on above: Interpretive Data: T he RPR test is a non-treponemal assay useful as an aid in the diagnosis of primary and secondary syphilis. It converts to positive generally within 2 weeks after the appearance of a lesion. This test is also useful for monitoring response to antibiotic therapy. A positive RPR screening test will be followed by the FTA ABS test. False positive RPR tests may occur in 1) patients with underlying autoimmune disorders, 2) elderly patients, 3) , and 4) other conditions with abnormal serum globulins. LACon 09-26-2024 Lactic Acid Lvl 1.8 mmol/L Normal 0.5-2.2 [facility] Comment on above: Performed By: #### L AC ####[address] [address] Lactic Acid Lvl 1.7 mmol/L Normal 0.5-2.2 [facility] Comment on above: Performed By: #### L AC ####[address] [address] Lactic Acid Lvl 2.4 mmol/L High 0.5-2.2 [facility] Comment on above: Performed By: #### L AC ####[address] [address] Lactic Acid Lvl 3.4 mmol/L High 0.5-2.2 [facility] Comment on above: Performed By: #### L AC ####[address] [address] LIPIDon 09-26-2024 Cholesterol [Mass/Vol] 95 mg/dL Normal 50-199 [facility] Comment on above: Result Comment: Chol esterol Reference Interval:Less than 200 [id number] Borderline high [id number] and above High risk Performed By: #### L IPID ####[place] [id number] [address] [place] [address] Cholesterol in HDL [Mass/Vol] mg/dL Low 40-59 [facility] Comment on above: Performed By: #### L IPID ####[address] [address] LDL Cholesterol Unable to Calculate Normal 0-129 [facility] Comment on above: Result Comment: Unab le to calculate this test result accurately. Results used to calculate this test are outside the reportable range. Performed By: #### L IPID ####[place] [id number] [place] [address] Triglyceride [Mass/Vol] 234 mg/dL High 3-149 [facility] Comment on above: Performed By: #### L IPID ####[place] [id number] [address] [place] [address] MGon 09-26-2024 Magnesium [Mass/Vol] 3.4 mg/dL High 1.6-2.[address] [facility] Comment on above: Performed By: #### C MP, HEPAC, MG, 039241, RPR, CBC, MORPH, HIV, GFR, DIFF ####[address] [address] RPRon 09-26-2024 Reagin Ab RPR Ql (S) Non-Reactive Normal Non-Hot [place] cti ve [facility] Comment on above: Result Comment: The RPR test is a non-treponemal assay useful as an aidin the diagnosis of primary and secondary syphilis. Itconverts to positive generally within 2 weeks after theappearance of a lesion. This test is also useful formonitoring response to antibiotic therapy.A positive RPR screening test will be followed by theFTA ABS test.False positive RPR tests may occur in 1) patients withunderlying autoimmune disorders, 2) elderly patients,3) , and 4) other conditions with abnormal serumglobulins. Performed By: #### C MP, HEPAC, MG, 296792, RPR, CBC, MORPH, HIV, GFR, DIFF ####[place] [id number] [place] [address] XR CHEST 1 VIEWon 09-26-2024 XR CHEST 1 VIEW Normal [facility] XR CHEST 1 VIEW Normal [facility] XR ENTERIC TUBE PLACEMENTon 09-26-2024 XR ENTERIC TUBE PLACEMENT Normal [facility] .Auto Diffon 09-25-2024 Basophil, Absolute 0.1 10 3/mcL Normal 0.0-0.[address] [facility] Comment on above: Performed By: #### C MP, GFR, MG, VANCR, ANEU, CBC, ADIFF ####[address] [address] Basophils/100 WBC (Bld) 0.3 % Normal 0.0-2.5 [facility] Comment on above: Performed By: #### C MP, GFR, MG, VANCR, ANEU, CBC, ADIFF ####[address] [address] Eosinophil, Absolute 0.4 10 3/mcL Normal 0.0-0.7 [facility] Comment on above: Performed By: #### C MP, GFR, MG, VANCR, ANEU, CBC, ADIFF ####[address] [address] Eosinophils/100 WBC (Bld) 1.6 % Normal 0.0-6.0 [facility] Comment on above: Performed By: #### C MP, GFR, MG, VANCR, ANEU, CBC, ADIFF ####[address] [address] Lymphocyte, Absolute 2.4 10 3/mcL Normal 0.9-4.3 [facility] Comment on above: Performed By: #### C MP, GFR, MG, VANCR, ANEU, CBC, ADIFF ####[address] [address] Lymphocytes/100 WBC (Bld) 10.7 % Low 20.0-40.0 [facility] Comment on above: Performed By: #### C MP, GFR, MG, VANCR, ANEU, CBC, ADIFF ####[address] [address] Monocyte, Absolute 1.3 10 3/mcL Normal 0.1-1.[address] [facility] Comment on above: Performed By: #### C MP, GFR, MG, VANCR, ANEU, CBC, ADIFF ####[address] [address] Monocytes/100 WBC (Bld) 5.8 % Normal 2.0-13.0 [facility] Comment on above: Performed By: #### C MP, GFR, MG, VANCR, ANEU, CBC, ADIFF ####[address] [address] Neutrophils/100 WBC (Bld) 81.6 % High 50.0-75.0 [facility] Comment on above: Performed By: #### C MP, GFR, MG, VANCR, ANEU, CBC, ADIFF ####[address] [address] .GFRon 09-25-2024 Estimated Glomerular Filtration Rate 56 ml/min/1.73sqm [facility] MAIN Comment on above: Result Comment: Stag es of Chronic Kidney Disease (CKD)Stage Description eGFR(ml/min/1.73 sq.m.)CKD 1 Normal kidney function or >=90 normal kindney function with possible kidney damage (ex. Proteinuria)CKD 2 Kidney damage with mild loss 60-89 of kidney functionCKD 3a Mild to moderate loss of kidney 45-59 functionCKD 3b Moderate to severe loss of 30-44 of kindey function CKD 4 Severe loss of kidney function 15-29CKD 5 Kidney failure <15Note: ( live 05/22/2024) the eGFR calculation was updated to the KD-EPI creatinine equation without a race factor to calculate theeGFR results. Performed By: #### L AC, GFR, BMP ####[address] [address] Estimated Glomerular Filtration Rate 47 ml/min/1.73sqm [facility] MAIN Comment on above: Result Comment: Stag es of Chronic Kidney Disease (CKD)Stage Description eGFR(ml/min/1.73 sq.m.)CKD 1 Normal kidney function or >=90 normal kindney function with possible kidney damage (ex. Proteinuria)CKD 2 Kidney damage with mild loss 60-89 of kidney functionCKD 3a Mild to moderate loss of kidney 45-59 functionCKD 3b Moderate to severe loss of 30-44 of kindey function CKD 4 Severe loss of kidney function 15-29CKD 5 Kidney failure <15Note: ( live 05/22/2024) the eGFR calculation was updated to the KD-EPI creatinine equation without a race factor to calculate theeGFR results. Performed By: #### C MP, GFR, MG, VANCR, ANEU, CBC, ADIFF ####[place] [id number] .NEUABSon 09-25-2024 Neutrophil, Absolute 18.2 10 3/mcL High 2.3-8.1 [facility] Comment on above: Performed By: #### C MP, GFR, MG, VANCR, ANEU, CBC, ADIFF ####[place] [address] BGon 09-25-2024 Base excess Calc (Bld) [Moles/Vol] -3.0000 mmol/L Normal [facility] Comment on above: Performed By: #### B G ####[place] [address] CO2 [Moles/Vol] 22.5 mmol/L Normal 22.0-30.0 [facility] Comment on above: Performed By: #### B G ####[place] [address] HCO3 (Bld) [Moles/Vol] 21.4 mmol/L Normal 21.0-29.0 [facility] Comment on above: Performed By: #### B G ####[place] [address] Oxygen (Bld) [Partial pressure] 145.1 mm[Hg] High 74.0-108.0 [facility] Comment on above: Performed By: #### B G ####[place] [address] Oxygen saturation in Blood 98.8 % High 92.0-96.0 [facility] Comment on above: Performed By: #### B G ####[place] [address] pCO2 35.7 mmHg Normal 32.0-46.0 [facility] Comment on above: Performed By: #### B G ####[place] [address] pH (Bld) 7.396 [pH] Normal 7.380-7.46 0 [facility] Comment on above: Performed By: #### B G ####[place] [address] Base excess Calc (Bld) [Moles/Vol] -5.5000 mmol/L Normal [facility] Comment on above: Performed By: #### B G ####[place] [address] CO2 [Moles/Vol] 21.5 mmol/L Low 22.0-30.0 [facility] Comment on above: Performed By: #### B G ####[place] [address] HCO3 (Bld) [Moles/Vol] 20.2 mmol/L Low 21.0-29.0 [facility] Comment on above: Performed By: #### B G ####[place] [address] Oxygen (Bld) [Partial pressure] 65.9 mm[Hg] Low 74.0-108.0 [facility] Comment on above: Performed By: #### B G ####[place] [address] Oxygen saturation in Blood 87.8 % Low 92.0-96.0 [facility] Comment on above: Performed By: #### B G ####[place] [address] pCO2 40.5 mmHg Normal 32.0-46.0 [facility] Comment on above: Performed By: #### B G ####[place] [address] pH (Bld) 7.316 [pH] Low 7.380-7.46 0 [facility] Comment on above: Performed By: #### B G ####[place] [address] BMPon 09-25-2024 BUN/Creatinine Ratio 48.2 ratio High 10.0-22.[address] [facility] Comment on above: Performed By: #### L AC, GFR, BMP ####[place] [address] Calcium [Mass/Vol] 7.6 mg/dL Low 8.7-10.4 [facility] Comment on above: Performed By: #### L AC, GFR, BMP ####[address] [address] Chloride [Moles/Vol] 114 mmol/L High 98-[address] [facility] Comment on above: Performed By: #### L AC, GFR, BMP ####[address] [address] CO2 [Moles/Vol] 22 mmol/L Normal 22-32 [facility] Comment on above: Performed By: #### L AC, GFR, BMP ####[address] [address] Creatinine [Mass/Vol] 1.68 mg/dL High 0.60-1.[address] [facility] Comment on above: Result Comment: Test ing performed on [employer] analyzer using enzymatic creatinine methodology. Performed By: #### L AC, GFR, BMP ####[address] [address] Electrolyte Balance 11.0 mEq/L Normal 4.0-15.0 [facility] Comment on above: Performed By: #### L AC, GFR, BMP ####[address] [address] Glucose [Mass/Vol] 72 mg/dL Normal 70-110 [facility] Comment on above: Performed By: #### L AC, GFR, BMP ####[address] [address] Potassium [Moles/Vol] 5.6 mmol/L High 3.5-5.[address] [facility] Comment on above: Performed By: #### L AC, GFR, BMP ####[address] [address] Sodium [Moles/Vol] 147 mmol/L High 136-145 [facility] Comment on above: Performed By: #### L AC, GFR, BMP ####[address] [address] Urea nitrogen [Mass/Vol] 81.0 mg/dL High 8.0-22.0 [facility] Comment on above: Performed By: #### L AC, GFR, BMP ####[place] [id number] CBCon 09-25-2024 Erythrocyte distribution width (RBC) [Ratio] 16.7 % High 11.5-15.5 [facility] Comment on above: Performed By: #### C MP, GFR, MG, VANCR, ANEU, CBC, ADIFF ####[place] [address] Hematocrit (Bld) [Volume fraction] 24.8 % Low 40.0-52.0 [facility] Comment on above: Performed By: #### C MP, GFR, MG, VANCR, ANEU, CBC, ADIFF ####[place] [address] Hgb 8.3 G/dL Low 13.0-17.5 [facility] Comment on above: Performed By: #### C MP, GFR, MG, VANCR, ANEU, CBC, ADIFF ####[place] [address] MCH (RBC) [Entitic mass] 26.5 pg Low 27.0-33.0 [facility] Comment on above: Performed By: #### C MP, GFR, MG, VANCR, ANEU, CBC, ADIFF ####[place] [address] MCHC 33.4 G/dL Normal 32.0-36.0 [facility] Comment on above: Performed By: #### C MP, GFR, MG, VANCR, ANEU, CBC, ADIFF ####[place] [address] MCV (RBC) [Entitic vol] 79.2 fL Low 81.0-100.0 [facility] Comment on above: Performed By: #### C MP, GFR, MG, VANCR, ANEU, CBC, ADIFF ####[place] [address] Platelet 110 10 3/mcL Low 150-450 [facility] Comment on above: Performed By: #### C MP, GFR, MG, VANCR, ANEU, CBC, ADIFF ####[address] [id number] Platelet mean volume (Bld) [Entitic vol] 10.7 fL High 6.4-10.5 [facility] Comment on above: Performed By: #### C MP, GFR, MG, VANCR, ANEU, CBC, ADIFF ####[place] [address] RBC 3.13 10 6/mcL Low 4.50-6.00 [facility] Comment on above: Performed By: #### C MP, GFR, MG, VANCR, ANEU, CBC, ADIFF ####[place] [address] WBC 22.3 10 3/mcL High 4.5-10.8 [facility] Comment on above: Performed By: #### C MP, GFR, MG, VANCR, ANEU, CBC, ADIFF ####[place] [address] CBLon 09-25-2024 CBL Normal [facility] CBL Normal [facility] CMPon 09-25-2024 Albumin Level 1.6 G/dL Low 3.2-4.8 [facility] Comment on above: Performed By: #### C MP, GFR, MG, VANCR, ANEU, CBC, ADIFF ####[place] [address] Albumin/Globulin [Mass ratio] 0.3 {ratio} Low 0.9-1.6 [facility] Comment on above: Performed By: #### C MP, GFR, MG, VANCR, ANEU, CBC, ADIFF ####[address] [address] ALP [Catalytic activity/Vol] 156 U/L High 38-126 [facility] Comment on above: Performed By: #### C MP, GFR, MG, VANCR, ANEU, CBC, ADIFF ####[address] [address] ALT [Catalytic activity/Vol] 247 U/L High 12-55 [facility] Comment on above: Performed By: #### C MP, GFR, MG, VANCR, ANEU, CBC, ADIFF ####[address] [address] AST [Catalytic activity/Vol] 1082 U/L High 8-34 [facility] Comment on above: Performed By: #### C MP, GFR, MG, VANCR, ANEU, CBC, ADIFF ####[address] [address] Bili Total 4.10 mg/dL High 0.20-1.20 [facility] Comment on above: Result Comment: Use of this assay is not recommended for patients undergoing treatment with eltrombopag due to the potential for falsely elevated results. Performed By: #### C MP, GFR, MG, VANCR, ANEU, CBC, ADIFF ####[address] [address] BUN/Creatinine Ratio 45.9 ratio High 10.0-22.[address] [facility] Comment on above: Performed By: #### C MP, GFR, MG, VANCR, ANEU, CBC, ADIFF ####[address] [address] Calcium [Mass/Vol] 7.6 mg/dL Low 8.7-10.4 [facility] Comment on above: Performed By: #### C MP, GFR, MG, VANCR, ANEU, CBC, ADIFF ####[address] [address] Chloride [Moles/Vol] 111 mmol/L High 98-[address] [facility] Comment on above: Performed By: #### C MP, GFR, MG, VANCR, ANEU, CBC, ADIFF ####[address] [address] CO2 [Moles/Vol] 22 mmol/L Normal 22-32 [facility] Comment on above: Performed By: #### C MP, GFR, MG, VANCR, ANEU, CBC, ADIFF ####[address] [address] Creatinine [Mass/Vol] 1.96 mg/dL High 0.60-1.[address] [facility] Comment on above: Result Comment: Test ing performed on [employer] analyzer using enzymatic creatinine methodology. Performed By: #### C MP, GFR, MG, VANCR, ANEU, CBC, ADIFF ####[address] [address] Electrolyte Balance 15.0 mEq/L Normal 4.0-15.0 [facility] Comment on above: Performed By: #### C MP, GFR, MG, VANCR, ANEU, CBC, ADIFF ####[address] [address] Globulin 5.5 G/dL High 2.5-4.2 [facility] Comment on above: Performed By: #### C MP, GFR, MG, VANCR, ANEU, CBC, ADIFF ####[address] [address] Glucose [Mass/Vol] 76 mg/dL Normal 70-110 [facility] Comment on above: Performed By: #### C MP, GFR, MG, VANCR, ANEU, CBC, ADIFF ####[address] [address] Potassium [Moles/Vol] 5.3 mmol/L High 3.5-5.[address] [facility] Comment on above: Performed By: #### C MP, GFR, MG, VANCR, ANEU, CBC, ADIFF ####[address] [address] Sodium [Moles/Vol] 148 mmol/L High 136-145 [facility] Comment on above: Performed By: #### C MP, GFR, MG, VANCR, ANEU, CBC, ADIFF ####[address] [address] Total Protein 7.1 G/dL Normal 5.7-8.2 [facility] Comment on above: Performed By: #### C MP, GFR, MG, VANCR, ANEU, CBC, ADIFF ####[address] [address] Urea nitrogen [Mass/Vol] 90.0 mg/dL High 8.0-22.0 [facility] Comment on above: Performed By: #### C MP, GFR, MG, VANCR, ANEU, CBC, ADIFF ####[place] [id number] Michi 09-25-2024 Potassium [Moles/Vol] 5.3 mmol/L High 3.5-5.[address] [facility] Comment on above: Performed By: #### K ####[place] [address] LABORATORYOrdered By: Sabina Sol on 09-25-2024 LDose Vancomycin: (random) See eMAR (09/25/24 2:36 AM) Normal Chemistry S LABORATORYOrdered By: SYSTEM SYSTEM on 09-25-2024 Vancomycin [Mass/Vol] 18.7 mcg/mL Invalid Interpretation Code AH ADM SS LACon 09-25-2024 Lactic Acid Lvl 4.1 mmol/L High 0.5-2.2 [facility] Comment on above: Performed By: #### L AC ####[place] [address] Lactic Acid Lvl 6.2 mmol/L High 0.5-2.2 [facility] Comment on above: Result Comment: No n ormals available: specimen drawn from IV arm. Performed By: #### L AC, GFR, BMP ####[place] [address] Lactic Acid Lvl 6.2 mmol/L High 0.5-2.2 [facility] Comment on above: Performed By: #### L AC ####[place] [address] MGon 09-25-2024 Magnesium [Mass/Vol] 3.6 mg/dL High 1.6-2.[address] [facility] Comment on above: Performed By: #### C MP, GFR, MG, VANCR, ANEU, CBC, ADIFF ####[place] [address] VANCRon 09-25-2024 LDose Vancomycin: (random) See eMAR Normal [facility] Comment on above: Performed By: #### C MP, GFR, MG, VANCR, ANEU, CBC, ADIFF ####[place] [address] Vancomycin Lvl (random) 18.7 mcg/mL Normal [facility] Comment on above: Performed By: #### C MP, GFR, MG, VANCR, ANEU, CBC, ADIFF ####[place] [address] XR CHEST 1 VIEWon 09-25-2024 XR CHEST 1 VIEW Normal [facility] XR CHEST 1 VIEW Normal [facility] .GFRon 09-24-2024 Estimated Glomerular Filtration Rate 47 ml/min/1.73sqm Normal [facility] Comment on above: Result Comment: Stag es of Chronic Kidney Disease (CKD)Stage Description eGFR(ml/min/1.73 sq.m.)CKD 1 Normal kidney function or >=90 normal kindney function with possible kidney damage (ex. Proteinuria)CKD 2 Kidney damage with mild loss 60-89 of kidney functionCKD 3a Mild to moderate loss of kidney 45-59 functionCKD 3b Moderate to severe loss of 30-44 of kindey function CKD 4 Severe loss of kidney function 15-29CKD 5 Kidney failure <15Note: (go live 2024) the eGFR calculation was updated to the KD-EPI creatinine equation without a race factor to calculate theeGFR results. Performed By: #### C MP, DIFF, MG, MORPH, CBC, GFR ####[place] [address] .Manual Diffon 09-24-2024 Bands 1.0 % Normal 0.0-5.0 [facility] Comment on above: Performed By: #### C MP, DIFF, MG, MORPH, CBC, GFR ####[place] [address] Basophil %, Manual 0.0 % Normal 0.0-2.5 [facility] Comment on above: Performed By: #### C MP, DIFF, MG, MORPH, CBC, GFR ####[place] [address] Basophil, Abs Manual 0.0 10 3/mcL Normal 0.0-0.3 [facility] Comment on above: Performed By: #### C MP, DIFF, MG, MORPH, CBC, GFR ####[address] [address] Eosinophil %, Manual 0.0 % Normal 0.0-6.[address] [facility] Comment on above: Performed By: #### C MP, DIFF, MG, MORPH, CBC, GFR ####[address] [address] Eosinophil, Abs Manual 0.0 10 3/mcL Normal 0.0-0.7 [facility] Comment on above: Performed By: #### C MP, DIFF, MG, MORPH, CBC, GFR ####[address] [address] Lymphocyte %, Manual 13.0 % Low 20.0-40.[address] [facility] Comment on above: Performed By: #### C MP, DIFF, MG, MORPH, CBC, GFR ####[address] [address] Lymphocyte, Abs Manual 3.7 10 3/mcL Normal 0.9-4.3 [facility] Comment on above: Performed By: #### C MP, DIFF, MG, MORPH, CBC, GFR ####[address] [address] Metamyelocyte 2.0 % Normal [facility] Comment on above: Performed By: #### C MP, DIFF, MG, MORPH, CBC, GFR ####[address] [address] Monocyte %, Manual 5.0 % Normal 2.0-13.0 [facility] Comment on above: Performed By: #### C MP, DIFF, MG, MORPH, CBC, GFR ####[address] [address] Monocyte, Abs Manual 1.4 10 3/mcL Normal 0.1-1.4 [facility] Comment on above: Performed By: #### C MP, DIFF, MG, MORPH, CBC, GFR ####[address] [address] Neutrophil %, Manual 79.0 % High 50.0-75.[address] [facility] Comment on above: Performed By: #### C MP, DIFF, MG, MORPH, CBC, GFR ####[place] [address] Neutrophil, Abs Manual 22.9 10 3/mcL High 2.3-8.1 [facility] Comment on above: Performed By: #### C MP, DIFF, MG, MORPH, CBC, GFR ####[place] [address] Nucleated RBC 0.0 /100 WBC Normal [facility] Comment on above: Performed By: #### C MP, DIFF, MG, MORPH, CBC, GFR ####[place] [address] .Morphon 09-24-2024 Anisocytosis Ql (Bld) 1+ Normal [facility] Comment on above: Performed By: #### C MP, DIFF, MG, MORPH, CBC, GFR ####[place] [address] Microcytosis 1+ Normal [facility] Comment on above: Performed By: #### C MP, DIFF, MG, MORPH, CBC, GFR ####[place] [address] Ovalocytes 1+ Normal [facility] Comment on above: Performed By: #### C MP, DIFF, MG, MORPH, CBC, GFR ####[place] [address] Platelet Estimate Slt Decreased Normal [facility] Comment on above: Performed By: #### C MP, DIFF, MG, MORPH, CBC, GFR ####[place] [address] Poik 1+ Normal [facility] Comment on above: Performed By: #### C MP, DIFF, MG, MORPH, CBC, GFR ####[place] [address] Target Cell 1+ [facility] Comment on above: Performed By: #### C MP, DIFF, MG, MORPH, CBC, GFR ####[place] [address] BGon 09-24-2024 Base excess Calc (Bld) [Moles/Vol] -1.1000 mmol/L Normal [facility] Comment on above: Performed By: #### B G ####[place] [address] CO2 [Moles/Vol] 24.0 mmol/L Normal 22.0-30.0 [facility] Comment on above: Performed By: #### B G ####[place] [address] HCO3 (Bld) [Moles/Vol] 22.9 mmol/L Normal 21.0-29.0 [facility] Comment on above: Performed By: #### B G ####[place] [address] Oxygen (Bld) [Partial pressure] 65.1 mm[Hg] Low 74.0-108.0 [facility] Comment on above: Performed By: #### B G ####[place] [address] Oxygen saturation in Blood 90.1 % Low 92.0-96.0 [facility] Comment on above: Performed By: #### B G ####[place] [address] pCO2 35.6 mmHg Normal 32.0-46.0 [facility] Comment on above: Performed By: #### B G ####[place] [address] pH (Bld) 7.427 [pH] Normal 7.380-7.46 0 [facility] Comment on above: Performed By: #### B G ####[place] [address] CBCon 09-24-2024 Erythrocyte distribution width (RBC) [Ratio] 16.1 % High 11.5-15.5 [facility] Comment on above: Performed By: #### C MP, DIFF, MG, MORPH, CBC, GFR ####[place] [address] Hematocrit (Bld) [Volume fraction] 26.2 % Low 40.0-52.0 [facility] Comment on above: Performed By: #### C MP, DIFF, MG, MORPH, CBC, GFR ####[place] [address] Hgb 8.8 G/dL Low 13.0-17.5 [facility] Comment on above: Performed By: #### C MP, DIFF, MG, MORPH, CBC, GFR ####[place] [address] MCH (RBC) [Entitic mass] 26.2 pg Low 27.0-33.0 [facility] Comment on above: Performed By: #### C MP, DIFF, MG, MORPH, CBC, GFR ####[place] [address] MCHC 33.4 G/dL Normal 32.0-36.0 [facility] Comment on above: Performed By: #### C MP, DIFF, MG, MORPH, CBC, GFR ####[place] [address] MCV (RBC) [Entitic vol] 78.3 fL Low 81.0-100.0 [facility] Comment on above: Performed By: #### C MP, DIFF, MG, MORPH, CBC, GFR ####[place] [address] Platelet 101 10 3/mcL Low 150-450 [facility] Comment on above: Performed By: #### C MP, DIFF, MG, MORPH, CBC, GFR ####[place] [address] Platelet mean volume (Bld) [Entitic vol] 11.1 fL High 6.4-10.5 [facility] Comment on above: Performed By: #### C MP, DIFF, MG, MORPH, CBC, GFR ####[place] [address] RBC 3.34 10 6/mcL Low 4.50-6.00 [facility] Comment on above: Performed By: #### C MP, DIFF, MG, MORPH, CBC, GFR ####[place] [address] WBC 28.6 10 3/mcL High 4.5-10.8 [facility] Comment on above: Performed By: #### C MP, DIFF, MG, MORPH, CBC, GFR ####[place] [address] CMPon 09-24-2024 Albumin Level 1.7 G/dL Low 3.2-4.8 [facility] Comment on above: Performed By: #### C MP, DIFF, MG, MORPH, CBC, GFR ####[place] [address] Albumin/Globulin [Mass ratio] 0.3 {ratio} Low 0.9-1.6 [facility] Comment on above: Performed By: #### C MP, DIFF, MG, MORPH, CBC, GFR ####[place] [address] ALP [Catalytic activity/Vol] 181 U/L High 38-126 [facility] Comment on above: Performed By: #### C MP, DIFF, MG, MORPH, CBC, GFR ####[place] [address] ALT [Catalytic activity/Vol] 88 U/L High 12-55 [facility] Comment on above: Performed By: #### C MP, DIFF, MG, MORPH, CBC, GFR ####[place] [address] AST [Catalytic activity/Vol] 219 U/L High 8-34 [facility] Comment on above: Performed By: #### C MP, DIFF, MG, MORPH, CBC, GFR ####[place] [address] Bili Total 3.90 mg/dL High 0.20-1.20 [facility] Comment on above: Result Comment: Use of this assay is not recommended for patients undergoing treatment with eltrombopag due to the potential for falsely elevated results. Performed By: #### C MP, DIFF, MG, MORPH, CBC, GFR ####[place] [address] BUN/Creatinine Ratio 46.9 ratio High 10.0-22.[address] [facility] Comment on above: Performed By: #### C MP, DIFF, MG, MORPH, CBC, GFR ####[address] [address] Calcium [Mass/Vol] 7.7 mg/dL Low 8.7-10.4 [facility] Comment on above: Performed By: #### C MP, DIFF, MG, MORPH, CBC, GFR ####[address] [address] Chloride [Moles/Vol] 108 mmol/L Normal 98-[address] [facility] Comment on above: Performed By: #### C MP, DIFF, MG, MORPH, CBC, GFR ####[address] [address] CO2 [Moles/Vol] 24 mmol/L Normal 22-32 [facility] Comment on above: Performed By: #### C MP, DIFF, MG, MORPH, CBC, GFR ####[place] [address] Creatinine [Mass/Vol] 1.94 mg/dL High 0.60-1.[address] [facility] Comment on above: Result Comment: Test ing performed on [employer] analyzer using enzymatic creatinine methodology. Performed By: #### C MP, DIFF, MG, MORPH, CBC, GFR ####[place] [address] Electrolyte Balance 13.0 mEq/L Normal 4.0-15.0 [facility] Comment on above: Performed By: #### C MP, DIFF, MG, MORPH, CBC, GFR ####[address] [address] Globulin 5.1 G/dL High 2.5-4.2 [facility] Comment on above: Performed By: #### C MP, DIFF, MG, MORPH, CBC, GFR ####[address] [address] Glucose [Mass/Vol] 103 mg/dL Normal 70-110 [facility] Comment on above: Performed By: #### C MP, DIFF, MG, MORPH, CBC, GFR ####[place] [id number] Potassium [Moles/Vol] 4.7 mmol/L Normal 3.5-5.[address] [facility] Comment on above: Performed By: #### C MP, DIFF, MG, MORPH, CBC, GFR ####[place] [id number] [address] [place] [address] Sodium [Moles/Vol] 145 mmol/L Normal 136-145 [facility] Comment on above: Performed By: #### C MP, DIFF, MG, MORPH, CBC, GFR ####[place] [address] Total Protein 6.8 G/dL Normal 5.7-8.2 [facility] Comment on above: Performed By: #### C MP, DIFF, MG, MORPH, CBC, GFR ####[address] [address] Urea nitrogen [Mass/Vol] 91.0 mg/dL High 8.0-22.0 [facility] Comment on above: Performed By: #### C MP, DIFF, MG, MORPH, CBC, GFR ####[place] [address] LABORATORYOrdered By: SYSTEM SYSTEM on 09-24-2024 Microcytes Ql (Bld) 1+ *NA* (09/24/24 7:15 AM) Invalid Interpretation Code AH Workflow SS MGon 09-24-2024 Magnesium [Mass/Vol] 3.7 mg/dL High 1.6-2.[address] [facility] Comment on above: Performed By: #### C MP, DIFF, MG, MORPH, CBC, GFR ####[place] [address] XR CHEST 1 VIEWon 09-24-2024 XR CHEST 1 VIEW Normal [facility] XR CHEST 1 VIEW Normal [facility] XR CHEST 1 VIEW Normal [facility] .GFRon 09-23-2024 Estimated Glomerular Filtration Rate 70 ml/min/1.73sqm Normal [facility] Comment on above: Result Comment: Stag es of Chronic Kidney Disease (CKD)Stage Description eGFR(ml/min/1.73 sq.m.)CKD 1 Normal kidney function or >=90 normal kindney function with possible kidney damage (ex. Proteinuria)CKD 2 Kidney damage with mild loss 60-89 of kidney functionCKD 3a Mild to moderate loss of kidney 45-59 functionCKD 3b Moderate to severe loss of 30-44 of kindey function CKD 4 Severe loss of kidney function 15-29CKD 5 Kidney failure <15Note: ( live 05/22/2024) the eGFR calculation was updated to the KD-EPI creatinine equation without a race factor to calculate theeGFR results. Performed By: #### L AC, GFR, MORPH, CBC, CMP, DIFF ####[place] [address] Estimated Glomerular Filtration Rate 89 ml/min/1.73sqm Normal [facility] Comment on above: Result Comment: Stag es of Chronic Kidney Disease (CKD)Stage Description eGFR(ml/min/1.73 sq.m.)CKD 1 Normal kidney function or >=90 normal kindney function with possible kidney damage (ex. Proteinuria)CKD 2 Kidney damage with mild loss 60-89 of kidney functionCKD 3a Mild to moderate loss of kidney 45-59 functionCKD 3b Moderate to severe loss of 30-44 of kindey function CKD 4 Severe loss of kidney function 15-29CKD 5 Kidney failure <15Note: ( live 05/22/2024) the eGFR calculation was updated to the KD-EPI creatinine equation without a race factor to calculate theeGFR results. Performed By: #### C MP, LAC, TROPHS, GFR ####[place] [address] .Manual Diffon 09-23-2024 Bands 2.0 % Normal 0.0-5.0 [facility] Comment on above: Performed By: #### L AC, GFR, MORPH, CBC, CMP, DIFF ####[place] [address] Basophil %, Manual 0.0 % Normal 0.0-2.5 [facility] Comment on above: Performed By: #### L AC, GFR, MORPH, CBC, CMP, DIFF ####[place] [address] Basophil, Abs Manual 0.0 10 3/mcL Normal 0.0-0.3 [facility] Comment on above: Performed By: #### L AC, GFR, MORPH, CBC, CMP, DIFF ####[address] [address] Eosinophil %, Manual 0.0 % Normal 0.0-6.[address] [facility] Comment on above: Performed By: #### L AC, GFR, MORPH, CBC, CMP, DIFF ####[address] [address] Eosinophil, Abs Manual 0.0 10 3/mcL Normal 0.0-0.7 [facility] Comment on above: Performed By: #### L AC, GFR, MORPH, CBC, CMP, DIFF ####[address] [address] Lymphocyte %, Manual 4.0 % Low 20.0-40.[address] [facility] Comment on above: Performed By: #### L AC, GFR, MORPH, CBC, CMP, DIFF ####[address] [address] Lymphocyte, Abs Manual 1.1 10 3/mcL Normal 0.9-4.3 [facility] Comment on above: Performed By: #### L AC, GFR, MORPH, CBC, CMP, DIFF ####[address] [address] Metamyelocyte 1.0 % Normal [facility] Comment on above: Performed By: #### L AC, GFR, MORPH, CBC, CMP, DIFF ####[address] [address] Monocyte %, Manual 4.0 % Normal 2.0-13.0 [facility] Comment on above: Performed By: #### L AC, GFR, MORPH, CBC, CMP, DIFF ####[address] [address] Monocyte, Abs Manual 1.1 10 3/mcL Normal 0.1-1.4 [facility] Comment on above: Performed By: #### L AC, GFR, MORPH, CBC, CMP, DIFF ####[address] [address] Neutrophil %, Manual 89.0 % High 50.0-75.[address] [facility] Comment on above: Performed By: #### L AC, GFR, MORPH, CBC, CMP, DIFF ####[place] [address] Neutrophil, Abs Manual 25.1 10 3/mcL High 2.3-8.1 [facility] Comment on above: Performed By: #### L AC, GFR, MORPH, CBC, CMP, DIFF ####[place] [address] Nucleated RBC 0.0 /100 WBC Normal [facility] Comment on above: Performed By: #### L AC, GFR, MORPH, CBC, CMP, DIFF ####[place] [address] .Morphon 09-23-2024 Anisocytosis Ql (Bld) 1+ Normal [facility] Comment on above: Performed By: #### L AC, GFR, MORPH, CBC, CMP, DIFF ####[place] [address] Large Platelets Few Normal [facility] Comment on above: Performed By: #### L AC, GFR, MORPH, CBC, CMP, DIFF ####[place] [address] Microcytosis 1+ Normal [facility] Comment on above: Performed By: #### L AC, GFR, MORPH, CBC, CMP, DIFF ####[place] [address] Ovalocytes 1+ Normal [facility] Comment on above: Performed By: #### L AC, GFR, MORPH, CBC, CMP, DIFF ####[place] [address] Platelet Estimate Decreased Normal [facility] Comment on above: Performed By: #### L AC, GFR, MORPH, CBC, CMP, DIFF ####[place] [address] Poik 1+ Normal [facility] Comment on above: Performed By: #### L AC, GFR, MORPH, CBC, CMP, DIFF ####[place] [address] BCIDon 09-23-2024 Acinetobacter kimberly-baumanii complex Not detected Normal Not Detected [facility] Comment on above: Order Comment: reenaveronica robledoanthony CARREON rn. report GSx6, bcid. vrb 09/22/2024 18:40:22 EDT SLR Performed By: #### Mack SIERRA, BMP #### [place] [address] Bacteroides fragilis Not detected Normal Not Detected [facility] Comment on above: Order Comment: kwesi flores LOYU rn. report GSx6, bcid. vrb 09/22/2024 18:40:22 EDT SLR Performed By: #### Mack SIERRA, BMP #### [place] [address] BCID Comment See Comment Normal [facility] Comment on above: Order Comment: elidalázaro robledoanthony CARREON rn. report GSx6, bcid. vrb 09/22/2024 18:40:22 EDT SLR Result Comment: Anti microbial resistance can occur via multiple mechanisms. A Not Detected result for antimicrobial resistance gene(s) does not indicate antimicrobial susceptibility. Culture identification and susceptibility results to follow. All BIOFIRE BCID2 Panel results are intended to be interpreted in conjunction with the Gram stain results. In some cases, the Gram stain result and the BIOFIRE BCID2 Panel result may be discrepant. In these cases, the BIOFIRE BCID2 Panel results should be confirmed by culture or other laboratory, epidemiological, or clinical findings. Blood culture media may contain non-viable organisms and/or nucleic acids that may lead to false positive BIOFIRE BCID2 Panel results. Typically, these false positives present with more than one positive result from the BIOFIRE BCID2 Panel. If BCID panel was negative (Not Detected) for all targets, this does not exclude a blood stream infection. Our blood culture system detected growth. Culture identification and susceptibility testing (if appropriate) to follow. Performed By: #### Mack SIERRA, BMP #### [place] [id number] Julio albicans Not detected Normal Not Detected [facility] Comment on above: Order Comment: kwesi CARREON rn. report GSx6, bcid. vrb 09/22/2024 18:40:22 EDT SLR Performed By: #### G FR, BMP #### [address] [address] Julio auris Not detected Normal Not Detected [facility] Comment on above: Order Comment: kwesi CARREON rn. report GSx6, bcid. vrb 09/22/2024 18:40:22 EDT SLR Performed By: #### G FR, BMP #### [address] [address] Julio glabrata Not detected Normal Not Detected [facility] Comment on above: Order Comment: kwesi CARREON rn. report GSx6, bcid. vrb 09/22/2024 18:40:22 EDT SLR Performed By: #### G , BMP #### [address] [address] Julio krusei Not detected Normal Not Detected [facility] Comment on above: Order Comment: kwesi CARREON rn. report GSx6, bcid. vrb 09/22/2024 18:40:22 EDT SLR Performed By: #### G FR, BMP #### [place] [id number] Julio parapsilosis Not detected Normal Not Detected [facility] Comment on above: Order Comment: kwesi CARREON rn. report GSx6, bcid. vrb 09/22/2024 18:40:22 EDT SLR Performed By: #### G FR, BMP #### [address] [address] Julio tropicalis Not detected Normal Not Detected [facility] Comment on above: Order Comment: kwesi CARREON rn. report GSx6, bcid. vrb 09/22/2024 18:40:22 EDT SLR Performed By: #### G FR, BMP #### [address] [address] Cryptococcus neoformans-gattii Not detected Normal Not Detected [facility] Comment on above: Order Comment: kwesi CARREON rn. report GSx6, bcid. vrb 09/22/2024 18:40:22 EDT SLR Performed By: #### G FR, BMP #### [place] [address] CTX-M (ESBL) Not Applicable Normal Not Detected [facility] Comment on above: Order Comment: kwesi CARREON rn. report GSx6, bcid. vrb 09/22/2024 18:40:22 EDT SLR Performed By: #### Mack SIERRA, BMP #### [place] [address] E. Coli Not detected Normal Not Detected [facility] Comment on above: Order Comment: kwesi CARREON rn. report GSx6, bcid. vrb 09/22/2024 18:40:22 EDT SLR Performed By: #### G , BMP #### [place] [address] Enterobacter cloacae Complex Not detected Normal Not Detected [facility] Comment on above: Order Comment: kwesi CARREON rn. report GSx6, bcid. vrb 09/22/2024 18:40:22 EDT SLR Performed By: #### G FR, BMP #### [place] [address] Enterobacterales Not detected Normal Not Detected [facility] Comment on above: Order Comment: kwesi CARREON rn. report GSx6, bcid. vrb 09/22/2024 18:40:22 EDT SLR Performed By: #### G FR, BMP #### [address] [address] Enterococcus faecalis Not detected Normal Not Detected [facility] Comment on above: Order Comment: kwesi CARREON rn. report GSx6, karold. vrb 09/22/2024 18:40:22 EDT SLR Performed By: #### G FR, BMP #### [address] [address] Enterococcus faecium Not detected Normal Not Detected [facility] Comment on above: Order Comment: kwesi CARREON rn. report GSx6, karold. vrb 09/22/2024 18:40:22 EDT SLR Performed By: #### G FR, BMP #### [address] [address] Haemophilus influenzae Not detected Normal Not Detected [facility] Comment on above: Order Comment: kwesi CARREON rn. report GSx6, karold. vrb 09/22/2024 18:40:22 EDT SLR Performed By: #### G FR, BMP #### [place] [address] IMP (Carbapenemase) Not Applicable Normal Not Detected [facility] Comment on above: Order Comment: kwesi CARREON rn. report GSx6, karold. vrb 09/22/2024 18:40:22 EDT SLR Performed By: #### G FR, BMP #### [address] [address] Klebsiella aerogenes Not detected Normal Not Detected [facility] Comment on above: Order Comment: kwesi CARREON rn. report GSx6, karold. vrb 09/22/2024 18:40:22 EDT SLR Performed By: #### G FR, BMP #### [place] [id number] Klebsiella oxytoca Not detected Normal Not Detected [facility] Comment on above: Order Comment: kwesi CARREON rn. report GSx6, bcid. vrb 09/22/2024 18:40:22 EDT SLR Performed By: #### G FR, BMP #### [address] [address] Klebsiella pneumoniae group Not detected Normal Not Detected [facility] Comment on above: Order Comment: kwesi CARREON rn. report GSx6, karold. vrb 09/22/2024 18:40:22 EDT SLR Performed By: #### G , BMP #### [place] [address] KPC (Carbapenemase) Not Applicable Normal Not Detected [facility] Comment on above: Order Comment: kwesi CARREON rn. report GSx6, bcid. vrb 09/22/2024 18:40:22 EDT SLR Performed By: #### G FR, BMP #### [address] [address] Listeria monocytogenes Not detected Normal Not Detected [facility] Comment on above: Order Comment: kwesi CARREON rn. report GSx6, bcid. vrb 09/22/2024 18:40:22 EDT SLR Performed By: #### G FR, BMP #### [place] [address] MCR-1 (Colistin Resistance) Not Applicable Normal Not Detected [facility] Comment on above: Order Comment: kwesi CARREON rn. report GSx6, bcid. vrb 09/22/2024 18:40:22 EDT SLR Performed By: #### G FR, BMP #### [place] [address] Mec A/C Not Applicable Normal Not Detected [facility] Comment on above: Order Comment: kwesi CARREON rn. report GSx6, bcid. vrb 09/22/2024 18:40:22 EDT SLR Performed By: #### G , BMP #### [address] [address] Mec A/C-MREJ (MRSA) Not detected Normal Not Detected [facility] Comment on above: Order Comment: kwesi CARREON rn. report GSx6, bcid. vrb 09/22/2024 18:40:22 EDT SLR Performed By: #### G , BMP #### [address] [address] NDM (Carbapenemase) Not Applicable Normal Not Detected [facility] Comment on above: Order Comment: kwesi CARREON rn. report GSx6, bcid. vrb 09/22/2024 18:40:22 EDT SLR Performed By: #### G , BMP #### [address] [address] Neisseria meningitidis (Encapsalated) Not detected Normal Not Detected [facility] Comment on above: Order Comment: kwesi CARREON rn. report GSx6, bcid. vrb 09/22/2024 18:40:22 EDT SLR Performed By: #### G , BMP #### [place] [address] OXA-48 like (Carbapenemase) Not Applicable Normal Not Detected [facility] Comment on above: Order Comment: kwesi CARREON rn. report GSx6, bcid. vrb 09/22/2024 18:40:22 EDT SLR Performed By: #### G FR, BMP #### [address] [address] Proteus Not detected Normal Not Detected [facility] Comment on above: Order Comment: kwesi CARREON rn. report GSx6, bcid. vrb 09/22/2024 18:40:22 EDT SLR Performed By: #### G FR, BMP #### [address] [address] Pseudomonas aeruginosa Not detected Normal Not Detected [facility] Comment on above: Order Comment: kwesi CARREON rn. report GSx6, bcid. vrb 09/22/2024 18:40:22 EDT SLR Performed By: #### G , BMP #### [address] [address] S. agalactiae Org specific cx Ql (Vag fld) Not detected Normal Not Detected [facility] Comment on above: Order Comment: kwesi CARREON rn. report GSx6, karold. vrb 09/22/2024 18:40:22 EDT SLR Performed By: #### G , BMP #### [address] [address] Salmonella species Not detected Normal Not Detected [facility] Comment on above: Order Comment: kwesi CARREON rn. report GSx6, karold. vrb 09/22/2024 18:40:22 EDT SLR Performed By: #### G , BMP #### [address] [address] Serratia marcescens Not detected Normal Not Detected [facility] Comment on above: Order Comment: kwesi CARREON rn. report GSx6, karold. vrb 09/22/2024 18:40:22 EDT SLR Performed By: #### G FR, BMP #### [address] [address] Staphylococcus Detected Abnormal Not Detected [facility] Comment on above: Order Comment: kwesi CARREON rn. report GSx6, karold. vrb 09/22/2024 18:40:22 EDT SLR Performed By: #### Mack SIERRA, BMP #### [address] [address] Staphylococcus aureus Detected Abnormal Not Detected [facility] Comment on above: Order Comment: kwesi CARREON rn. report GSx6, bcid. vrb 09/22/2024 18:40:22 EDT SLR Result Comment: If S taphylococcus aureus is Detected, an Infectious Disease physician consult is required on identification. Performed By: #### Mack SIERRA, BMP #### [place] [address] Staphylococcus epidermidis Not detected Normal Not Detected [facility] Comment on above: Order Comment: kwesi CARREON rn. report GSx6, bcid. vrb 09/22/2024 18:40:22 EDT SLR Performed By: #### Mack SIERRA, BMP #### [place] [address] Staphylococcus lugdunensis Not detected Normal Not Detected [facility] Comment on above: Order Comment: kwesi CARREON rn. report GSx6, bcid. vrb 09/22/2024 18:40:22 EDT SLR Performed By: #### Mack SIERRA, BMP #### [place] [address] Stenotrophomonas maltophilia Not detected Normal Not Detected [facility] Comment on above: Order Comment: kwesi CARREON rn. report GSx6, bcid. vrb 09/22/2024 18:40:22 EDT SLR Performed By: #### Mack SIERRA, BMP #### [place] [address] Streptococcus Detected Abnormal Not Detected [facility] Comment on above: Order Comment: kwesi CARREON rn. report GSx6, bcid. vrb 09/22/2024 18:40:22 EDT SLR Performed By: #### Mack SIERRA, BMP #### [address] [address] Streptococcus pneumoniae Not detected Normal Not Detected [facility] Comment on above: Order Comment: kwesi CARREON rn. report GSx6, bcid. vrb 09/22/2024 18:40:22 EDT SLR Performed By: #### Mack SIERRA, BMP #### [address] [address] Streptococcus pyogenes Not detected Normal Not Detected [facility] Comment on above: Order Comment: kwesi CARREON rn. report GSx6, bcid. vrb 09/22/2024 18:40:22 EDT SLR Performed By: #### Mack SIERRA, BMP #### [address] [address] Van A/B Not Applicable Normal Not Detected [facility] Comment on above: Order Comment: kwesi CARREON rn. report GSx6, bcid. vrb 09/22/2024 18:40:22 EDT SLR Performed By: #### Mack SIERRA, BMP #### [address] [address] VIM (Carbapenemase) Not Applicable Normal Not Detected [facility] Comment on above: Order Comment: kwesi CARREON rn. report GSx6, bcid. vrb 09/22/2024 18:40:22 EDT SLR Performed By: #### Mack SIERRA, BMP #### [address] [address] BGon 09-23-2024 Base excess Calc (Bld) [Moles/Vol] -5.9000 mmol/L Normal [facility] Comment on above: Performed By: #### B G ####[address] [address] CO2 [Moles/Vol] 19.8 mmol/L Low 22.0-30.0 [facility] Comment on above: Performed By: #### B G ####[address] [address] HCO3 (Bld) [Moles/Vol] 18.7 mmol/L Low 21.0-29.0 [facility] Comment on above: Performed By: #### B G ####[address] [address] Oxygen (Bld) [Partial pressure] 77.3 mm[Hg] Normal 74.0-108.0 [facility] Comment on above: Performed By: #### B G ####[place] [phone] Oxygen saturation in Blood 93.3 % Normal 92.0-96.0 [facility] Comment on above: Performed By: #### B G ####[place] [address] pCO2 33.4 mmHg Normal 32.0-46.0 [facility] Comment on above: Performed By: #### B G ####[place] [phone] pH (Bld) 7.367 [pH] Low 7.380-7.46 0 [facility] Comment on above: Performed By: #### B G ####[place] [id number] Base excess Calc (Bld) [Moles/Vol] -10.25964 mmol/L [facility] Comment on above: Performed By: #### B G ####[place] [phone] CO2 [Moles/Vol] 15.5 mmol/L Low 22.0-30.0 [facility] Comment on above: Performed By: #### B G ####[address] [address] HCO3 (Bld) [Moles/Vol] 14.5 mmol/L Low 21.0-29.0 [facility] Comment on above: Performed By: #### B G ####[place] [phone] Oxygen (Bld) [Partial pressure] 80.0 mm[Hg] Normal 74.0-108.0 [facility] Comment on above: Performed By: #### B G ####[address] [address] Oxygen saturation in Blood 93.1 % Normal 92.0-96.0 [facility] Comment on above: Performed By: #### B G ####[address] [address] pCO2 30.3 mmHg Low 32.0-46.0 [facility] Comment on above: Performed By: #### B G ####[address] [address] pH (Bld) 7.299 [pH] Low 7.380-7.46 0 [facility] Comment on above: Performed By: #### B G ####[place] [phone] Base excess Calc (Bld) [Moles/Vol] -11.46700 mmol/L Normal [facility] Comment on above: Performed By: #### B G ####[address] [address] CO2 [Moles/Vol] 15.3 mmol/L Low 22.0-30.0 [facility] Comment on above: Performed By: #### B G ####[address] [address] HCO3 (Bld) [Moles/Vol] 14.4 mmol/L Low 21.0-29.0 [facility] Comment on above: Performed By: #### B G ####[address] [address] Oxygen (Bld) [Partial pressure] 155.1 mm[Hg] High 74.0-108.0 [facility] Comment on above: Performed By: #### B G ####[place] [id number] [address] [place] [address] Oxygen saturation in Blood 98.6 % High 92.0-96.0 [facility] Comment on above: Performed By: #### B G ####[address] [address] pCO2 30.6 mmHg Low 32.0-46.0 [facility] Comment on above: Performed By: #### B G ####[place] [address] pH (Bld) 7.290 [pH] Low 7.380-7.46 0 [facility] Comment on above: Performed By: #### B G ####[place] [address] Base excess Calc (Bld) [Moles/Vol] -9.2000 mmol/L Normal [facility] Comment on above: Performed By: #### B G ####[place] [address] CO2 [Moles/Vol] 19.5 mmol/L Low 22.0-30.0 [facility] Comment on above: Performed By: #### B G ####[place] [address] HCO3 (Bld) [Moles/Vol] 18.1 mmol/L Low 21.0-29.0 [facility] Comment on above: Performed By: #### B G ####[place] [address] Oxygen (Bld) [Partial pressure] 70.0 mm[Hg] Low 74.0-108.0 [facility] Comment on above: Performed By: #### B G ####[place] [address] Oxygen saturation in Blood 87.6 % Low 92.0-96.0 [facility] Comment on above: Performed By: #### B G ####[place] [address] pCO2 45.6 mmHg Normal 32.0-46.0 [facility] Comment on above: Performed By: #### B G ####[place] [phone] pH (Bld) 7.217 [pH] Low 7.380-7.46 0 [facility] Comment on above: Performed By: #### B G ####[place] [address] CBCon 09-23-2024 Platelet 51 10 3/mcL Low 150-450 [facility] Comment on above: Performed By: #### L AC, GFR, MORPH, CBC, CMP, DIFF ####[place] [address] Platelet mean volume (Bld) [Entitic vol] 11.9 fL High 6.4-10.5 [facility] Comment on above: Performed By: #### L AC, GFR, MORPH, CBC, CMP, DIFF ####[place] [address] Erythrocyte distribution width (RBC) [Ratio] 16.3 % High 11.5-15.5 [facility] Comment on above: Performed By: #### L AC, GFR, MORPH, CBC, CMP, DIFF ####[place] [address] Hematocrit (Bld) [Volume fraction] 30.1 % Low 40.0-52.0 [facility] Comment on above: Performed By: #### L AC, GFR, MORPH, CBC, CMP, DIFF ####[place] [address] Hgb 10.0 G/dL Low 13.0-17.5 [facility] Comment on above: Performed By: #### L AC, GFR, MORPH, CBC, CMP, DIFF ####[place] [address] MCH (RBC) [Entitic mass] 26.5 pg Low 27.0-33.0 [facility] Comment on above: Performed By: #### L AC, GFR, MORPH, CBC, CMP, DIFF ####[place] [address] MCHC 33.2 G/dL Normal 32.0-36.0 [facility] Comment on above: Performed By: #### L AC, GFR, MORPH, CBC, CMP, DIFF ####[place] [address] MCV (RBC) [Entitic vol] 79.9 fL Low 81.0-100.0 [facility] Comment on above: Performed By: #### L AC, GFR, MORPH, CBC, CMP, DIFF ####[address] [address] RBC 3.77 10 6/mcL Low 4.50-6.00 [facility] Comment on above: Performed By: #### L AC, GFR, MORPH, CBC, CMP, DIFF ####[place] [address] WBC 27.6 10 3/mcL High 4.5-10.8 [facility] Comment on above: Performed By: #### L AC, GFR, MORPH, CBC, CMP, DIFF ####[place] [address] CKon 09-23-2024 CK [Catalytic activity/Vol] 91 U/L Normal 7-185 [facility] Comment on above: Performed By: #### C K, LD ####[place] [address] CMPon 09-23-2024 Albumin Level 1.8 G/dL Low 3.2-4.8 [facility] Comment on above: Performed By: #### L AC, GFR, MORPH, CBC, CMP, DIFF ####[place] [address] Albumin/Globulin [Mass ratio] 0.4 {ratio} Low 0.9-1.6 [facility] Comment on above: Performed By: #### L AC, GFR, MORPH, CBC, CMP, DIFF ####[place] [address] ALP [Catalytic activity/Vol] 243 U/L High 38-126 [facility] Comment on above: Performed By: #### L AC, GFR, MORPH, CBC, CMP, DIFF ####[place] [address] ALT [Catalytic activity/Vol] 92 U/L High 12-55 [facility] Comment on above: Performed By: #### L AC, GFR, MORPH, CBC, CMP, DIFF ####[place] [address] AST [Catalytic activity/Vol] 140 U/L High 8-34 [facility] Comment on above: Performed By: #### L AC, GFR, MORPH, CBC, CMP, DIFF ####[address] [address] Bili Total 5.00 mg/dL High 0.20-1.20 [facility] Comment on above: Result Comment: Use of this assay is not recommended for patients undergoing treatment with eltrombopag due to the potential for falsely elevated results. Performed By: #### L AC, GFR, MORPH, CBC, CMP, DIFF ####[place] [address] BUN/Creatinine Ratio 35.7 ratio High 10.0-22.[address] [facility] Comment on above: Performed By: #### L AC, GFR, MORPH, CBC, CMP, DIFF ####[address] [address] Calcium [Mass/Vol] 8.3 mg/dL Low 8.7-10.4 [facility] Comment on above: Performed By: #### L AC, GFR, MORPH, CBC, CMP, DIFF ####[place] [address] Chloride [Moles/Vol] 103 mmol/L Normal 98-[address] [facility] Comment on above: Performed By: #### L AC, GFR, MORPH, CBC, CMP, DIFF ####[place] [address] CO2 [Moles/Vol] 17 mmol/L Low 22-32 [facility] Comment on above: Performed By: #### L AC, GFR, MORPH, CBC, CMP, DIFF ####[address] [address] Creatinine [Mass/Vol] 1.40 mg/dL Normal 0.60-1.[address] [facility] Comment on above: Result Comment: Test ing performed on [employer] analyzer using enzymatic creatinine methodology. Performed By: #### L AC, GFR, MORPH, CBC, CMP, DIFF ####[place] [address] Electrolyte Balance 20.0 mEq/L High 4.0-15.0 [facility] Comment on above: Performed By: #### L AC, GFR, MORPH, CBC, CMP, DIFF ####[address] [address] Globulin 5.0 G/dL High 2.5-4.2 [facility] Comment on above: Performed By: #### L AC, GFR, MORPH, CBC, CMP, DIFF ####[address] [address] Glucose [Mass/Vol] 116 mg/dL High 70-110 [facility] Comment on above: Performed By: #### L AC, GFR, MORPH, CBC, CMP, DIFF ####[address] [address] Potassium [Moles/Vol] 4.8 mmol/L Normal 3.5-5.[address] [facility] Comment on above: Performed By: #### L AC, GFR, MORPH, CBC, CMP, DIFF ####[address] [address] Sodium [Moles/Vol] 140 mmol/L Normal 136-145 [facility] Comment on above: Performed By: #### L AC, GFR, MORPH, CBC, CMP, DIFF ####[address] [address] Total Protein 6.8 G/dL Normal 5.7-8.2 [facility] Comment on above: Performed By: #### L AC, GFR, MORPH, CBC, CMP, DIFF ####[address] [address] Urea nitrogen [Mass/Vol] 50.0 mg/dL High 8.0-22.0 [facility] Comment on above: Performed By: #### L AC, GFR, MORPH, CBC, CMP, DIFF ####[address] [address] Potassium [Moles/Vol] 5.0 mmol/L Normal 3.5-5.[address] [facility] Comment on above: Performed By: #### C MP, LAC, TROPHS, GFR ####[address] [address] Albumin Level 1.9 G/dL Low 3.2-4.8 [facility] Comment on above: Performed By: #### C MP, LAC, TROPHS, GFR ####[address] [address] Albumin/Globulin [Mass ratio] 0.4 {ratio} Low 0.9-1.6 [facility] Comment on above: Performed By: #### C MP, LAC, TROPHS, GFR ####[address] [address] ALP [Catalytic activity/Vol] 264 U/L High 38-126 [facility] Comment on above: Performed By: #### C MP, LAC, TROPHS, GFR ####[address] [address] ALT [Catalytic activity/Vol] 100 U/L High 12-55 [facility] Comment on above: Performed By: #### C MP, LAC, TROPHS, GFR ####[address] [address] AST [Catalytic activity/Vol] 157 U/L High 8-34 [facility] Comment on above: Performed By: #### C MP, LAC, TROPHS, GFR ####[address] [address] Bili Total 5.20 mg/dL High 0.20-1.20 [facility] Comment on above: Result Comment: Use of this assay is not recommended for patients undergoing treatment with eltrombopag due to the potential for falsely elevated results. Performed By: #### C MP, LAC, TROPHS, GFR ####[address] [address] BUN/Creatinine Ratio 43.0 ratio High 10.0-22.[address] [facility] Comment on above: Performed By: #### C MP, LAC, TROPHS, GFR ####[address] [address] Calcium [Mass/Vol] 8.0 mg/dL Low 8.7-10.4 [facility] Comment on above: Performed By: #### C MP, LAC, TROPHS, GFR ####[address] [address] Chloride [Moles/Vol] 106 mmol/L Normal 98-[address] [facility] Comment on above: Performed By: #### C MP, LAC, TROPHS, GFR ####[address] [address] CO2 [Moles/Vol] 16 mmol/L Low 22-32 [facility] Comment on above: Performed By: #### C MP, LAC, TROPHS, GFR ####[address] [address] Creatinine [Mass/Vol] 1.14 mg/dL Normal 0.60-1.[address] [facility] Comment on above: Result Comment: Test ing performed on [employer] analyzer using enzymatic creatinine methodology. Performed By: #### C MP, LAC, TROPHS, GFR ####[address] [address] Electrolyte Balance 17.0 mEq/L High 4.0-15.0 [facility] Comment on above: Performed By: #### C MP, LAC, TROPHS, GFR ####[address] [address] Globulin 5.4 G/dL High 2.5-4.2 [facility] Comment on above: Performed By: #### C MP, LAC, TROPHS, GFR ####[address] [address] Glucose [Mass/Vol] 148 mg/dL High 70-110 [facility] Comment on above: Performed By: #### C MP, LAC, TROPHS, GFR ####[address] [address] Sodium [Moles/Vol] 139 mmol/L Normal 136-145 [facility] Comment on above: Performed By: #### C MP, LAC, TROPHS, GFR ####[place] [id number] Total Protein 7.3 G/dL Normal 5.7-8.2 [facility] Comment on above: Performed By: #### C MP, LAC, TROPHS, GFR ####[place] [address] Urea nitrogen [Mass/Vol] 49.0 mg/dL High 8.0-22.0 [facility] Comment on above: Performed By: #### C MP, LAC, TROPHS, GFR ####[place] [address] CT HEAD OR BRAIN W/O CONTRAS Ton 09-23-2024 CT HEAD OR BRAIN W/O CONTRAST Normal [facility] LABORATORYOrdered By: Luis Enrique Santiago on 09-23-2024 LDose Vancomycin:(trough) See eMAR (09/23/24 3:16 PM) Normal Chemistry S LABORATORYOrdered By: SYSTEM SYSTEM on 09-23-2024 Vancomycin trough [Mass/Vol] 34.4 ug/mL Invalid Interpretation Code 10.0 - 20.0 mcg/mL ADM SS CK [Catalytic activity/Vol] 91 U/L Normal 7 - 185 U/L ADM SS LDH Lactate to pyruvate reaction [Catalytic activity/Vol] 636 1 High 120 - 246 U/L ADM SS Large Platelets Few *NA* (09/23/24 2:30 AM) Invalid Interpretation Code Workflow SS Microcytes Ql (Bld) 1+ *NA* (09/23/24 2:30 AM) Invalid Interpretation Code Workflow SS Troponin I.cardiac DL <= 0.01 ng/mL [Mass/Vol] 29 ng/L Normal 0 - 54 ng/L ADM SS Comment on above: Interpretive Data: High Sensitive Troponin I Reference Ranges: Female: 0-34 ng/L Male: 0-54 ng/L Testing performed on [employer] analyzer using direct chemiluminescent technology. LACon 09-23-2024 Lactic Acid Lvl 7.7 mmol/L High 0.5-2.2 [facility] Comment on above: Performed By: #### L AC ####[place] [address] Lactic Acid Lvl 13.4 mmol/L High 0.5-2.2 [facility] Comment on above: Performed By: #### L AC ####[place] [address] Lactic Acid Lvl 10.4 mmol/L High 0.5-2.2 [facility] Comment on above: Performed By: #### L AC, GFR, MORPH, CBC, CMP, DIFF ####[place] [address] Lactic Acid Lvl 8.2 mmol/L High 0.5-2.2 [facility] Comment on above: Performed By: #### C MP, LAC, TROPHS, GFR ####[place] [address] LDHon 09-23-2024 LDH 636 U/L High 120-246 [facility] Comment on above: Performed By: #### C K, LD ####[place] [address] MGon 09-23-2024 Magnesium [Mass/Vol] 3.4 mg/dL High 1.6-2.[address] [facility] Comment on above: Performed By: #### M G ####[place] [address] TROPHSon 09-23-2024 High Sensitivity Troponin I 29 ng/L Normal 0-54 [facility] Comment on above: Result Comment: High Sensitive Troponin I Reference Ranges:Female: 0-34 ng/LMale: 0-54 ng/LTesting performed on [employer] IM analyzer using direct chemiluminescent technology. Performed By: #### C MP, LAC, TROPHS, GFR ####[place] [address] VANCTon 09-23-2024 Vancomycin Tr 34.4 mcg/mL Critically abnormal 10.0-20.0 [facility] Comment on above: Performed By: #### V ANCT ####[place] [address] LDose Vancomycin:(trough) See eMAR Normal [facility] Comment on above: Performed By: #### V ANCT ####[place] [place] [address] .Auto Diffon 09-22-2024 Basophil, Absolute 0.0 10 3/mcL Normal 0.0-0.3 [facility] Comment on above: Performed By: #### G FR, BMP #### [address] [address] Basophils/100 WBC (Bld) 0.1 % Normal 0.0-2.5 [facility] Comment on above: Performed By: #### G FR, BMP #### [address] [address] Eosinophil, Absolute 0.3 10 3/mcL Normal 0.0-0.7 [facility] Comment on above: Performed By: #### G FR, BMP #### [address] [address] Eosinophils/100 WBC (Bld) 1.6 % Normal 0.0-6.0 [facility] Comment on above: Performed By: #### G FR, BMP #### [address] [address] Lymphocyte, Absolute 0.8 10 3/mcL Low 0.9-4.3 [facility] Comment on above: Performed By: #### G FR, BMP #### [address] [address] Lymphocytes/100 WBC (Bld) 3.7 % Low 20.0-40.0 [facility] Comment on above: Performed By: #### G FR, BMP #### [address] [address] Monocyte, Absolute 0.4 10 3/mcL Normal 0.1-1.4 [facility] Comment on above: Performed By: #### G FR, BMP #### [address] [address] Monocytes/100 WBC (Bld) 1.9 % Low 2.0-13.0 [facility] Comment on above: Performed By: #### G FR, BMP #### [address] [address] Neutrophils/100 WBC (Bld) 92.7 % High 50.0-75.0 [facility] Comment on above: Performed By: #### G FR, BMP #### [address] [address] .GFRon 09-22-2024 Estimated Glomerular Filtration Rate 96 ml/min/1.73sqm [facility] Comment on above: Result Comment: Stag es of Chronic Kidney Disease (CKD)Stage Description eGFR(ml/min/1.73 sq.m.)CKD 1 Normal kidney function or >=90 normal kindney function with possible kidney damage (ex. Proteinuria)CKD 2 Kidney damage with mild loss 60-89 of kidney functionCKD 3a Mild to moderate loss of kidney 45-59 functionCKD 3b Moderate to severe loss of 30-44 of kindey function CKD 4 Severe loss of kidney function 15-29CKD 5 Kidney failure <15Note: (go live 2024) the eGFR calculation was updated to the KD-EPI creatinine equation without a race factor to calculate theeGFR results. Performed By: #### C MP, GFR, LAC, APTT, CBC, MG, TROPHS, PRO, DIFF, MORPH ####[place] [address] Estimated Glomerular Filtration Rate 91 ml/min/1.73sqm Normal [facility] Comment on above: Result Comment: Stages of Chronic Kidney Disease (CKD) Stage Description eGFR(ml/min/1.73 sq.m.) CKD 1 Normal kidney function or >=90 normal kindney function with possible kidney damage (ex. Proteinuria) CKD 2 Kidney damage with mild loss 60-89 of kidney function CKD 3a Mild to moderate loss of kidney 45-59 function CKD 3b Moderate to severe loss of 30-44 of kindey function CKD 4 Severe loss of kidney function 15-29 CKD 5 Kidney failure <15 Note: (go live 2024) the eGFR calculation was updated to the 2020 CKD-EPI creatinine equation without a race factor to calculate the eGFR results. Performed By: #### P RO, MORPH, ADIFF, ANEU, TROPHS, MDW, APTT, GFR, CBC, PBNP, CMP, LAC #### [place] [address] [place], [place] [address] .MDWon 09-22-2024 Monocyte Distribution Width 47.56 High 0.00-20.00 [facility] Comment on above: Result Comment: For adults in ED, MDW>20.0 may be associated with a higher risk of sepsis during the first 12hrs of hospital admission Performed By: #### G JANNIE SIERRA #### [facility] [address] [place], [place] [address] .Manual Diffon 09-22-2024 Basophil %, Manual 0.0 % Normal 0.0-2.5 [facility] Comment on above: Performed By: #### C MP, GFR, LAC, APTT, CBC, MG, TROPHS, PRO, DIFF, MORPH ####[address] [address] Basophil, Abs Manual 0.0 10 3/mcL Normal 0.0-0.3 [facility] Comment on above: Performed By: #### C MP, GFR, LAC, APTT, CBC, MG, TROPHS, PRO, DIFF, MORPH ####[address] [address] Eosinophil %, Manual 0.0 % Normal 0.0-6.[address] [facility] Comment on above: Performed By: #### C MP, GFR, LAC, APTT, CBC, MG, TROPHS, PRO, DIFF, MORPH ####[address] [address] Eosinophil, Abs Manual 0.0 10 3/mcL Normal 0.0-0.7 [facility] Comment on above: Performed By: #### C MP, GFR, LAC, APTT, CBC, MG, TROPHS, PRO, DIFF, MORPH ####[address] [address] Lymphocyte %, Manual 2.0 % Low 20.0-40.[address] [facility] Comment on above: Performed By: #### C MP, GFR, LAC, APTT, CBC, MG, TROPHS, PRO, DIFF, MORPH ####[address] [address] Lymphocyte, Abs Manual 0.5 10 3/mcL Low 0.9-4.3 [facility] Comment on above: Performed By: #### C MP, GFR, LAC, APTT, CBC, MG, TROPHS, PRO, DIFF, MORPH ####[place] [id number] Monocyte %, Manual 7.0 % Normal 2.0-13.0 [facility] Comment on above: Performed By: #### C MP, GFR, LAC, APTT, CBC, MG, TROPHS, PRO, DIFF, MORPH ####[place] [id number] Monocyte, Abs Manual 1.9 10 3/mcL High 0.1-1.4 [facility] Comment on above: Performed By: #### C MP, GFR, LAC, APTT, CBC, MG, TROPHS, PRO, DIFF, MORPH ####[place] [address] Neutrophil %, Manual 91.0 % High 50.0-75.[address] [facility] Comment on above: Performed By: #### C MP, GFR, LAC, APTT, CBC, MG, TROPHS, PRO, DIFF, MORPH ####[place] [address] Neutrophil, Abs Manual 24.3 10 3/mcL High 2.3-8.1 [facility] Comment on above: Performed By: #### C MP, GFR, LAC, APTT, CBC, MG, TROPHS, PRO, DIFF, MORPH ####[place] [address] Nucleated RBC 0.0 /100 WBC Normal [facility] Comment on above: Performed By: #### C MP, GFR, LAC, APTT, CBC, MG, TROPHS, PRO, DIFF, MORPH ####[address] [address] .Morphon 09-22-2024 Large Platelets Few Normal [facility] Comment on above: Performed By: #### C MP, GFR, LAC, APTT, CBC, MG, TROPHS, PRO, DIFF, MORPH ####[place] [address] Platelet Estimate Grt Decreased Normal [facility] Comment on above: Performed By: #### C MP, GFR, LAC, APTT, CBC, MG, TROPHS, PRO, DIFF, MORPH ####[place] [address] Anisocytosis Ql (Bld) 1+ Normal [facility] Comment on above: Performed By: #### C MP, GFR, LAC, APTT, CBC, MG, TROPHS, PRO, DIFF, MORPH ####[place] [address] Dohle Bodies 1+ Normal [facility] Comment on above: Performed By: #### C MP, GFR, LAC, APTT, CBC, MG, TROPHS, PRO, DIFF, MORPH ####[place] [address] Microcytosis 2+ Normal [facility] Comment on above: Performed By: #### C MP, GFR, LAC, APTT, CBC, MG, TROPHS, PRO, DIFF, MORPH ####[place] [address] Ovalocytes 1+ Normal [facility] Comment on above: Performed By: #### C MP, GFR, LAC, APTT, CBC, MG, TROPHS, PRO, DIFF, MORPH ####[place] [address] Poik 1+ [facility] Comment on above: Performed By: #### C MP, GFR, LAC, APTT, CBC, MG, TROPHS, PRO, DIFF, MORPH ####[place] [address] Large Platelets Few Normal [facility] Comment on above: Performed By: #### G FR, BMP #### [address] [address] Platelet Estimate Decreased Normal [facility] Comment on above: Performed By: #### G FR, BMP #### [address] [address] Schistocyte 1+ Normal [facility] Comment on above: Performed By: #### G FR, BMP #### [address] [address] Toxic Gran 1+ Normal [facility] Comment on above: Performed By: #### G FR, BMP #### [address] [address] .NEUABSon 09-22-2024 Neutrophil, Absolute 20.5 10 3/mcL High 2.3-8.1 [facility] Comment on above: Performed By: #### G FR, BMP #### [place] [id number] ACETAon 09-22-2024 Acetaminophen [Mass/Vol] 0.0 ug/mL Low 10.0-30.0 [facility] Comment on above: Performed By: #### G FR, BMP #### [place] [id number] Rory 09-22-2024 Ethanol Level <3 Normal [facility] Comment on above: Performed By: #### G FR, BMP #### [place] [id number] APTTon 09-22-2024 aPTT Coag (Bld) [Time] 34.3 s Normal 25.0-35.0 [facility] Comment on above: Result Comment: For Heparin anticoagulation therapy, the recommendedtherapeutic range is: 54-77 seconds (APTT Correlationwith Anti-Xa therapeutic range of 0.3-0.7 units/ml).PLEASE REFERENCE THE PHARMACY PROTOCOL FOR DOSING. Performed By: #### C MP, GFR, LAC, APTT, CBC, MG, TROPHS, PRO, DIFF, MORPH ####[address] [address] aPTT Coag (Bld) [Time] 35.8 s High 25.0-35.0 [facility] Comment on above: Result Comment: For Heparin anticoagulation therapy, the recommended therapeutic range is: 45.4-75.9 seconds. Patients on heparin therapy may have an extreme result. Performed By: #### P RO, MORPH, ADIFF, ANEU, TROPHS, MDW, APTT, GFR, CBC, PBNP, CMP, LAC #### [address] [address] BGon 09-22-2024 Base excess Calc (Bld) [Moles/Vol] -14.42329 mmol/L Normal [facility] Comment on above: Performed By: #### B G ####[place] [phone] CO2 [Moles/Vol] 17.6 mmol/L Low 22.0-30.0 [facility] Comment on above: Performed By: #### B G ####[place] [phone] HCO3 (Bld) [Moles/Vol] 15.8 mmol/L Low 21.0-29.0 [facility] Comment on above: Performed By: #### B G ####[place] [address] Oxygen (Bld) [Partial pressure] 140.3 mm[Hg] High 74.0-108.0 [facility] Comment on above: Performed By: #### B G ####[place] [address] Oxygen saturation in Blood 97.5 % High 92.0-96.0 [facility] Comment on above: Performed By: #### B G ####[place] [phone] pCO2 58.4 mmHg High 32.0-46.0 [facility] Comment on above: Performed By: #### B G ####[place] [phone] pH (Bld) 7.051 [pH] Critically abnormal 7.380-7.46 0 [facility] Comment on above: Performed By: #### B G ####[address] [address] Base excess Calc (Bld) [Moles/Vol] -2.6000 mmol/L [facility] Comment on above: Performed By: #### B G ####[place] [phone] CO2 [Moles/Vol] 19.3 mmol/L Low 22.0-30.0 [facility] Comment on above: Performed By: #### B G ####[place] [address] HCO3 (Bld) [Moles/Vol] 18.6 mmol/L Low 21.0-29.0 [facility] Comment on above: Performed By: #### B G ####[place] [address] Oxygen (Bld) [Partial pressure] 59.2 mm[Hg] Low 74.0-108.0 [facility] Comment on above: Performed By: #### B G ####[place] [address] Oxygen saturation in Blood 90.5 % Low 92.0-96.0 [facility] Comment on above: Performed By: #### B G ####[place] [address] pCO2 22.1 mmHg Low 32.0-46.0 [facility] Comment on above: Performed By: #### B G ####[place] [address] pH (Bld) 7.543 [pH] High 7.380-7.46 0 [facility] Comment on above: Performed By: #### B G ####[place] [address] CBCon 09-22-2024 Platelet 47 10 3/mcL Low 150-450 [facility] Comment on above: Performed By: #### C MP, GFR, LAC, APTT, CBC, MG, TROPHS, PRO, DIFF, MORPH ####[place] [address] Platelet mean volume (Bld) [Entitic vol] 15.5 fL High 6.4-10.5 [facility] Comment on above: Performed By: #### C MP, GFR, LAC, APTT, CBC, MG, TROPHS, PRO, DIFF, MORPH ####[place] [address] Erythrocyte distribution width (RBC) [Ratio] 15.4 % Normal 11.5-15.5 [facility] Comment on above: Performed By: #### C MP, GFR, LAC, APTT, CBC, MG, TROPHS, PRO, DIFF, MORPH ####[place] [address] Hematocrit (Bld) [Volume fraction] 26.7 % Low 40.0-52.0 [facility] Comment on above: Performed By: #### C MP, GFR, LAC, APTT, CBC, MG, TROPHS, PRO, DIFF, MORPH ####[place] [address] Hgb 8.9 G/dL Low 13.0-17.5 [facility] Comment on above: Performed By: #### C MP, GFR, LAC, APTT, CBC, MG, TROPHS, PRO, DIFF, MORPH ####[place] [address] MCH (RBC) [Entitic mass] 25.9 pg Low 27.0-33.0 [facility] Comment on above: Performed By: #### C MP, GFR, LAC, APTT, CBC, MG, TROPHS, PRO, DIFF, MORPH ####[place] [address] MCHC 33.2 G/dL Normal 32.0-36.0 [facility] Comment on above: Performed By: #### C MP, GFR, LAC, APTT, CBC, MG, TROPHS, PRO, DIFF, MORPH ####[place] [address] MCV (RBC) [Entitic vol] 77.9 fL Low 81.0-100.0 [facility] Comment on above: Performed By: #### C MP, GFR, LAC, APTT, CBC, MG, TROPHS, PRO, DIFF, MORPH ####[place] [address] RBC 3.43 10 6/mcL Low 4.50-6.00 [facility] Comment on above: Performed By: #### C MP, GFR, LAC, APTT, CBC, MG, TROPHS, PRO, DIFF, MORPH ####[place] [address] WBC 26.7 10 3/mcL High 4.5-10.8 [facility] Comment on above: Performed By: #### C MP, GFR, LAC, APTT, CBC, MG, TROPHS, PRO, DIFF, MORPH ####[facility] [place] [address] Platelet 40 10 3/mcL Low 150-450 [facility] Comment on above: Performed By: #### G , BMP #### [address] [address] Platelet mean volume (Bld) [Entitic vol] 13.0 fL High 6.4-10.5 [facility] Comment on above: Performed By: #### Mack SIERRA, BMP #### [address] [address] Erythrocyte distribution width (RBC) [Ratio] 15.9 % High 11.5-15.5 [facility] Comment on above: Performed By: #### Mack SIERRA, BMP #### [address] [address] Hematocrit (Bld) [Volume fraction] 33.3 % Low 40.0-52.0 [facility] Comment on above: Performed By: #### Mack SIERRA, BMP #### [address] [address] Hgb 11.3 G/dL Low 13.0-17.5 [facility] Comment on above: Performed By: #### Mack SIERRA, BMP #### [address] [address] MCH (RBC) [Entitic mass] 26.5 pg Low 27.0-33.0 [facility] Comment on above: Performed By: #### Mack FR, BMP #### [address] [address] MCHC 33.8 G/dL Normal 32.0-36.0 [facility] Comment on above: Performed By: #### G FR, BMP #### [address] [address] MCV (RBC) [Entitic vol] 78.3 fL Low 81.0-100.0 [facility] Comment on above: Performed By: #### G , BMP #### [address] [address] RBC 4.25 10 6/mcL Low 4.50-6.00 [facility] Comment on above: Performed By: #### G , BMP #### [place] [address] [address] WBC 22.1 10 3/mcL High 4.5-10.8 [facility] Comment on above: Performed By: #### G , BMP #### [address] [address] CMPon 09-22-2024 Albumin Level 2.0 G/dL Low 3.2-4.8 [facility] Comment on above: Performed By: #### C MP, GFR, LAC, APTT, CBC, MG, TROPHS, PRO, DIFF, MORPH ####[address] [address] Albumin/Globulin [Mass ratio] 0.4 {ratio} Low 0.9-1.6 [facility] Comment on above: Performed By: #### C MP, GFR, LAC, APTT, CBC, MG, TROPHS, PRO, DIFF, MORPH ####[address] [address] ALP [Catalytic activity/Vol] 204 U/L High 38-126 [facility] Comment on above: Performed By: #### C MP, GFR, LAC, APTT, CBC, MG, TROPHS, PRO, DIFF, MORPH ####[address] [address] ALT [Catalytic activity/Vol] 115 U/L High 12-55 [facility] Comment on above: Performed By: #### C MP, GFR, LAC, APTT, CBC, MG, TROPHS, PRO, DIFF, MORPH ####[address] [address] AST [Catalytic activity/Vol] 220 U/L High 8-34 [facility] Comment on above: Performed By: #### C MP, GFR, LAC, APTT, CBC, MG, TROPHS, PRO, DIFF, MORPH ####[address] [address] Bili Total 6.10 mg/dL High 0.20-1.20 [facility] Comment on above: Result Comment: Use of this assay is not recommended for patients undergoing treatment with eltrombopag due to the potential for falsely elevated results. Performed By: #### C MP, GFR, LAC, APTT, CBC, MG, TROPHS, PRO, DIFF, MORPH ####[address] [address] BUN/Creatinine Ratio 55.1 ratio High 10.0-22.[address] [facility] Comment on above: Performed By: #### C MP, GFR, LAC, APTT, CBC, MG, TROPHS, PRO, DIFF, MORPH ####[address] [address] Calcium [Mass/Vol] 8.0 mg/dL Low 8.7-10.4 [facility] Comment on above: Performed By: #### C MP, GFR, LAC, APTT, CBC, MG, TROPHS, PRO, DIFF, MORPH ####[address] [address] Chloride [Moles/Vol] 100 mmol/L Normal 98-[address] [facility] Comment on above: Performed By: #### C MP, GFR, LAC, APTT, CBC, MG, TROPHS, PRO, DIFF, MORPH ####[address] [address] CO2 [Moles/Vol] 16 mmol/L Low 22-32 [facility] Comment on above: Performed By: #### C MP, GFR, LAC, APTT, CBC, MG, TROPHS, PRO, DIFF, MORPH ####[address] [address] Creatinine [Mass/Vol] 1.07 mg/dL Normal 0.60-1.[address] [facility] Comment on above: Result Comment: Test ing performed on [employer] analyzer using enzymatic creatinine methodology. Performed By: #### C MP, GFR, LAC, APTT, CBC, MG, TROPHS, PRO, DIFF, MORPH ####[address] [address] Electrolyte Balance 18.0 mEq/L High 4.0-15.0 [facility] Comment on above: Performed By: #### C MP, GFR, LAC, APTT, CBC, MG, TROPHS, PRO, DIFF, MORPH ####[address] [address] Globulin 4.9 G/dL High 2.5-4.2 [facility] Comment on above: Performed By: #### C MP, GFR, LAC, APTT, CBC, MG, TROPHS, PRO, DIFF, MORPH ####[place] [phone] Glucose [Mass/Vol] 115 mg/dL High 70-110 [facility] Comment on above: Performed By: #### C MP, GFR, LAC, APTT, CBC, MG, TROPHS, PRO, DIFF, MORPH ####[address] [address] Potassium [Moles/Vol] 3.7 mmol/L Normal 3.5-5.[address] [facility] Comment on above: Performed By: #### C MP, GFR, LAC, APTT, CBC, MG, TROPHS, PRO, DIFF, MORPH ####[address] [address] Sodium [Moles/Vol] 134 mmol/L Low 136-145 [facility] Comment on above: Performed By: #### C MP, GFR, LAC, APTT, CBC, MG, TROPHS, PRO, DIFF, MORPH ####[place] [id number] Total Protein 6.9 G/dL Normal 5.7-8.2 [facility] Comment on above: Performed By: #### C MP, GFR, LAC, APTT, CBC, MG, TROPHS, PRO, DIFF, MORPH ####[place] [phone] Urea nitrogen [Mass/Vol] 59.0 mg/dL High 8.0-22.0 [facility] Comment on above: Performed By: #### C MP, GFR, LAC, APTT, CBC, MG, TROPHS, PRO, DIFF, MORPH ####[facility] [place] [address] Albumin Level 1.9 G/dL Low 3.5-5.0 [facility] Comment on above: Performed By: #### P RO, MORPH, ADIFF, ANEU, TROPHS, MDW, APTT, GFR, CBC, PBNP, CMP, LAC #### [address] [address] Albumin/Globulin [Mass ratio] 0.3 {ratio} Low 1.1-2.5 [facility] Comment on above: Performed By: #### P RO, MORPH, ADIFF, ANEU, TROPHS, MDW, APTT, GFR, CBC, PBNP, CMP, LAC #### [address] [address] ALP [Catalytic activity/Vol] 305 U/L High 40-135 [facility] Comment on above: Performed By: #### P RO, MORPH, ADIFF, ANEU, TROPHS, MDW, APTT, GFR, CBC, PBNP, CMP, LAC #### [address] [address] ALT [Catalytic activity/Vol] 142 U/L High 16-63 [facility] Comment on above: Performed By: #### P RO, MORPH, ADIFF, ANEU, TROPHS, MDW, APTT, GFR, CBC, PBNP, CMP, LAC #### [address] [address] AST [Catalytic activity/Vol] 316 U/L High 10-40 [facility] Comment on above: Performed By: #### P RO, MORPH, ADIFF, ANEU, TROPHS, MDW, APTT, GFR, CBC, PBNP, CMP, LAC #### [address] [address] Bili Total 8.2 mg/dL High 0.2-1.0 [facility] Comment on above: Result Comment: Use of this assay is not recommended for patients undergoing treatment with eltrombopag due to the potential for falsely elevated results. Performed By: #### P RO, MORPH, ADIFF, ANEU, TROPHS, MDW, APTT, GFR, CBC, PBNP, CMP, LAC #### [address] [address] BUN/Creatinine Ratio 57 ratio High 7-27 [facility] Comment on above: Performed By: #### P RO, MORPH, ADIFF, ANEU, TROPHS, MDW, APTT, GFR, CBC, PBNP, CMP, LAC #### [address] [address] Calcium [Mass/Vol] 8.7 mg/dL Normal 8.4-10.2 [facility] Comment on above: Performed By: #### P RO, MORPH, ADIFF, ANEU, TROPHS, MDW, APTT, GFR, CBC, PBNP, CMP, LAC #### [address] [address] Chloride [Moles/Vol] 94 mmol/L Low 98-107 [facility] Comment on above: Performed By: #### P RO, MORPH, ADIFF, ANEU, TROPHS, MDW, APTT, GFR, CBC, PBNP, CMP, LAC #### [address] [address] CO2 [Moles/Vol] 17 mmol/L Low 22-29 [facility] Comment on above: Performed By: #### P RO, MORPH, ADIFF, ANEU, TROPHS, MDW, APTT, GFR, CBC, PBNP, CMP, LAC #### [address] [address] Creatinine [Mass/Vol] 1.12 mg/dL Normal 0.67-1.17 [facility] Comment on above: Performed By: #### P RO, MORPH, ADIFF, ANEU, TROPHS, MDW, APTT, GFR, CBC, PBNP, CMP, LAC #### [address] [address] Electrolyte Balance 19.0 mEq/L High 4.0-15.0 [facility] Comment on above: Performed By: #### P RO, MORPH, ADIFF, ANEU, TROPHS, MDW, APTT, GFR, CBC, PBNP, CMP, LAC #### [address] [address] Globulin 6.4 G/dL High 2.7-4.4 [facility] Comment on above: Performed By: #### P RO, MORPH, ADIFF, ANEU, TROPHS, MDW, APTT, GFR, CBC, PBNP, CMP, LAC #### [address] [address] Glucose [Mass/Vol] 111 mg/dL High 70-105 [facility] Comment on above: Performed By: #### P RO, MORPH, ADIFF, ANEU, TROPHS, MDW, APTT, GFR, CBC, PBNP, CMP, LAC #### [address] [address] Potassium [Moles/Vol] 3.6 mmol/L Normal 3.5-5.1 [facility] Comment on above: Performed By: #### P RO, MORPH, ADIFF, ANEU, TROPHS, MDW, APTT, GFR, CBC, PBNP, CMP, LAC #### [address] [address] Sodium [Moles/Vol] 130 mmol/L Low 136-145 [facility] Comment on above: Performed By: #### P RO, MORPH, ADIFF, ANEU, TROPHS, MDW, APTT, GFR, CBC, PBNP, CMP, LAC #### [address] [id number] Total Protein 8.3 G/dL High 6.4-8.2 [facility] Comment on above: Performed By: #### P RO, MORPH, ADIFF, ANEU, TROPHS, MDW, APTT, GFR, CBC, PBNP, CMP, LAC #### [id number] [place], [place] [address] Urea nitrogen [Mass/Vol] 64 mg/dL High 7-18 [facility] Comment on above: Performed By: #### P RO, MORPH, ADIFF, ANEU, TROPHS, MDW, APTT, GFR, CBC, PBNP, CMP, LAC #### [facility] [address] [place], [place] [address] CT ANGIOGRAPHY CHEST W/CONTR Ladi 09-22-2024 CT ANGIOGRAPHY CHEST W/CONTRAST ORIGINAL EXAMINATION: CTA OF THE CHEST09/22/2024 8:22 am TECHNIQUE: CTA of the chest was performed after the administration of intravenous contrast. Multiplanar reformatted images are provided for review. MIP images are provided for review. Automated exposure control, iterative reconstruction, and/or weight based adjustment of the mA/kV was utilized to reduce the radiation dose to as low as reasonably achievable. COMPARISON: 04/29/2023 HISTORY: ORDERING SYSTEM PROVIDED HISTORY: Reason for Exam: pt arrived to the ED with c/o SOB with productive cough x2 days. pt sts pain when coughing in chest & back; sts previous heart valve replacement approx 2 yrs ago. Chest pain, nonspecific FINDINGS: The exam is significantly degraded by patient motion and beam hardening artifact. There is adequate contrast opacification of the proximal pulmonary arterial vasculature. There is no large central filling defect or vessel cutoff to indicate pulmonary embolus. The segmental branches are not well evaluated. The thoracic aorta is normal in caliber. There are calcified right hilar and subcarinal lymph nodes. The heart is normal in size. No pericardial effusion or thickening. The trachea is normal. There is no lymphadenopathy. The lungs are emphysematous. There are numerous persistent cavitary nodules bilaterally, which are decreased in size from the previous exam. A security representative nodule measures 2.4 cm. There is no new consolidation.. No pneumothorax or pleural fluid. The visualized osseous structures are intact. Limited images of the upper abdomen are noncontributory. Sternotomy wires are present. IMPRESSION: No large central pulmonary emboli within the limits of this exam. Exam severely degraded by patient motion and beam hardening artifact due to positioning. Numerous persistent cavitary pulmonary nodules which are decreased in size from the previous exam. This has a wide differential diagnosis including sequela of septic emboli, pulmonary infarct, vasculitis, or metastatic disease. Emphysema. Interpreted by: Yazmin Costa MD Preliminary Report By: Yazmin Costa MD Electronically signed By Yazmin Costa MD Dictated Date: 09/22/2024 8:27:55 AM Prelim Date: 09/22/2024 8:42:32 AM Sign Date: 09/22/2024 8:42:32 AM Ordering Provider: ANURAG TRUJILLO [facility] CVFLURVon 09-22-2024 FLU A PCR Negative Normal Negative [facility] Comment on above: Performed By: #### G FR, BMP #### [place] [address] FLU B PCR Negative Normal Negative [facility] Comment on above: Performed By: #### G FR, BMP #### [place] [address] RSV PCR Negative Normal Negative [facility] Comment on above: Performed By: #### G FR, BMP #### [place] [address] SARS-CoV-2 (COVID-19) RNA BRAD+probe Ql (Unsp spec) Negative Normal Negative [facility] Comment on above: Result Comment: Resu lts from the Xpert Xpress CoV-2/Flu/RSV plus test should be correlated with the clinical history, epidemiological data, and other data available to the clinical evaluating the patient. Performance of the Xpert Xpress CoV-2/Flu/RSV plus test has only been established in nasopharyngeal swab specimen. Erroneous test results might occur from improper specimen collection, failure to follow the recommended sample collection, handling and storage procedures, technical error, or sample mix-up. False negative results may occur if a virus is present at a level below the analytical limit of detection. Viral nucleic acid may persist in vivo, independent of virus viability. Detection of analyte target(s) does not imply that the corresponding virus(es) are infectious or are the causative agents for clinical symptoms. Recent patient exposure to FluMist or other live attenuated influenza vaccines may cause inaccurate positive results. Performed By: #### G FR, BMP #### [place] [address] LABORATORYOrdered By: Zheng Suárez on 09-22-2024 Appearance (U) Clear (09/22/24 5:59 PM) Normal Clear AH Auto Urine SS Bilirubin Ql (U) Moderate 8 *ABN* (09/22/24 5:59 PM) Invalid Interpretation Code Neg-Trace AH Auto Urine SS Comment on above: Result Comment: Sugg est correlation with serum bilirubin and clinical findings if medically necessary. Color (U) Dark Yellow (09/22/24 5:59 PM) Normal AH Auto Urine SS Glucose Test strip (U) [Mass/Vol] Negative Normal Negative AH Auto Urine SS Hemoglobin Auto test strip (U) [Mass/Vol] Negative (09/22/24 5:59 PM) Normal Neg-Trace AH Auto Urine SS Ketones Ql (U) Negative Normal Neg-Trace AH Auto Ur ine SS UA Leuk Est Negative (09/22/24 5:59 PM) Normal Negative AH Auto Urine SS UA Nitrite Negative (09/22/24 5:59 PM) Normal Negative AH Auto Urine SS UA pH 5.5 (09/22/24 5:59 PM) Normal 5.0 - 8.0 AH Auto Urine SS UA Protein 30 mg/dL Normal Negative AH Auto Urine SS UA Spec Grav >=1.030 *ABN* (09/22/24 5:59 PM) Invalid Interpretation Code 1.006-1.02 9 AH Auto Urine SS UA Specimen Type Clean Catch (09/22/24 5:59 PM) Normal AH Auto Urine SS UA Urobilinogen 1.0 E.U./dL Normal 0.2-1.0 AH Auto Urine SS LABORATORYOrdered By: SYSTEM SYSTEM on 09-22-2024 Dohle body LM Ql (Bld) 1+ *NA* (09/22/24 12:15 PM) Invalid Interpretation Code AH Workflow SS Large Platelets Few *NA* (09/22/24 12:15 PM) Invalid Interpretation Code AH Workflow SS Troponin I.cardiac DL <= 0.01 ng/mL [Mass/Vol] 50 ng/L Normal 0 - 54 ng/L AH ADM SS Comment on above: Interpretive Data: High Sensitive Troponin I Reference Ranges: Female: 0-34 ng/L Male: 0-54 ng/L Testing performed on [employer] analyzer using direct chemiluminescent technology. Lactate [Moles/Vol] 7.3 mmol/L Invalid Interpretation Code 0.4 - 2.0 mmol/L AO ADM SS Albumin BCP dye [Mass/Vol] 1.9 G/dL Low 3.5 - 5.0 G/dL AO ADM SS Albumin/Globulin [Mass ratio] 0.3 {ratio} Low 1.1 - 2.5 ratio AO ADM SS ALP [Catalytic activity/Vol] 305 U/L High 40 - 135 U/L AO ADM SS ALT With P-5'-P [Catalytic activity/Vol] 142 U/L High 16 - 63 U/L AO ADM SS aPTT Coag (PPP) [Time] 35.8 s High 25.0 - 35.0 seconds AO HemoHub SS Comment on above: Interpretive Data: F or Heparin anticoagulation therapy, the recommended therapeutic range is: 45.4-75.9 seconds. Patients on heparin therapy may have an extreme result. AST With P-5'-P [Catalytic activity/Vol] 316 U/L High 10 - 40 U/L AO ADM SS Basophils (Bld) [#/Vol] 0.0 103/mcL Normal 0.0 - 0.3 10^3/mcL AO Workflow SS Basophils/100 WBC (Bld) 0.1 % Normal 0.0 - 2.5 % AO Workflow SS Bilirubin [Mass/Vol] 8.2 mg/dL High 0.2 - 1 .0 mg/dL AO ADM SS Comment on above: Interpretive Data: U se of this assay is not recommended for patients undergoing treatment with eltrombopag due to the potential for falsely elevated results. Calcium [Mass/Vol] 8.7 mg/dL Normal 8.4 - 10. 2 mg/dL AO ADM SS Chloride [Moles/Vol] 94 mmol/L Low 98 - 10 7 mmol/L AO ADM SS CO2 [Moles/Vol] 17 mmol/L Low 22 - 29 mmol/L AO ADM SS Creatinine [Mass/Vol] 1.12 mg/dL Normal 0.67 - 1.17 mg/dL AO ADM SS Electrolyte Balance 19.0 mEq/L High 4.0 - 15 .0 mEq/L AO ADM SS Eosinophil, Absolute 0.3 103/mcL Normal 0.0 - 0 .7 10^3/mcL AO Workflow SS Eosinophils/100 WBC (Bld) 1.6 % Normal 0.0 - 6.0 % AO Workflow SS Erythrocyte distribution width (RBC) [Ratio] 15.9 % High 11.5 - 15.5 % AO Workflow SS Estimated Glomerular Filtration Rate 91 ml/min/1.73sqm Invalid Interpretation Code AO Chemistry S Comment on above: Interpretive Data: Stages of Chronic Kidney Disease (CKD) Stage Description eGFR(ml/min/1.73 sq.m.) CKD 1 Normal kidney function or >=90 normal kindney function with possible kidney damage (ex. Proteinuria) CKD 2 Kidney damage with mild loss 60-89 of kidney function CKD 3a Mild to moderate loss of kidney 45-59 function CKD 3b Moderate to severe loss of 30-44 of kindey function CKD 4 Severe loss of kidney function 15-29 CKD 5 Kidney failure <15 Note: (go live 2024) the eGFR calculation was updated to the 2020 CKD-EPI creatinine equation without a race factor to calculate the eGFR results. Globulin 6.4 G/dL High 2.7 - 4.4 G/dL AO ADM SS Glucose [Mass/Vol] 111 mg/dL High 70 - 105 mg/dL AO ADM SS Hematocrit (Bld) [Volume fraction] 33.3 % Low 40.0 - 52.0 % AO Workflow SS Hemoglobin (Bld) [Mass/Vol] 11.3 G/dL Low 13.0 - 17.5 G/dL AO Workflow SS INR Coag (PPP) [Relative time] 1.7 {INR} Invalid Interpretation Code AO HemoHub SS Comment on above: Interpretive Data: Valeriy mccoy [employer] (CHEST, 1992, 102:[id number]) recommended therapeutic range for oral anticoagulant therapy is: LOW RISK: Prophylaxis of venous thrombosis INR: 2.0-3.0 Treatment of pulmonary embolism 2.0-3.0 Prevention of systemic embolism 2.0-3.0 HIGH RISK: Mechanical prosthetic valves 2.5-3.5 Lactate [Moles/Vol] 8.5 mmol/L Invalid Interpretation Code 0.4 - 2.0 mmol/L AO ADM SS Large Platelets Few *NA* (09/22/24 7:19 AM) Invalid Interpretation Code AO Workflow SS Lymphocytes (Bld) [#/Vol] 0.8 103/mcL Low 0.9 - 4.3 10^3/mcL AO Workflow SS Lymphocytes/100 WBC (Bld) 3.7 % Low 20.0 - 40.0 % AO Workflow SS MCH (RBC) [Entitic mass] 26.5 pg Low 27.0 - 33.0 pg AO Workflow SS MCHC 33.8 G/dL Normal 32.0 - 36.0 G/dL AO Workflow SS MCV (RBC) [Entitic vol] 78.3 fL Low 81.0 - 100.0 fL AO Workflow SS Monocyte distribution width Auto (Bld) [Entitic vol] 47.56 1 High 0.00 - 20.00 AO Workflow SS Comment on above: Result Comment: For adults in ED, MDW>20.0 may be associated with a higher risk of sepsis during the first 12hrs of hospital admission Monocytes (Bld) [#/Vol] 0.4 103/mcL Normal 0.1 - 1.4 10^3/mcL AO Workflow SS Monocytes/100 WBC (Bld) 1.9 % Low 2.0 - 13.0 % AO Workflow SS Natriuretic peptide.B prohormone N-Terminal [Mass/Vol] 8566 pg/mL High 0 - 125 pg/mL AO ADM SS Comment on above: Interpretive Data: N T-proBNP results of less than 300 pg/mL effectively rules out acute congestive heart failure with 99% negative predictive value. Neutrophils (Bld) [#/Vol] 20.5 103/mcL High 2.3 - 8.1 10^3/mcL AO Workflow SS Neutrophils/100 WBC (Bld) 92.7 % High 50.0 - 75.0 % AO Workflow SS Platelet mean volume (Bld) [Entitic vol] 13.0 fL High 6.4 - 10.5 fL AO Workflow SS Platelets (Bld) [#/Vol] 40 103/mcL Low 150 - 450 10^3/mcL AO Workflow SS Platelets LM Ql (Bld) Decreased *NA* (09/22/24 7:19 AM) Invalid Interpretation Code AO Workflow SS Potassium [Moles/Vol] 3.6 mmol/L Normal 3.5 - 5.1 mmol/L AO ADM SS Protein [Mass/Vol] 8.3 G/dL High 6.4 - 8.2 G/dL AO ADM SS PT Coag (PPP) [Time] 19.6 s High 9.0 - 1 4.4 seconds AO HemoHub SS RBC (Bld) [#/Vol] 4.25 106/mcL Low 4.50 - 6.00 10^6/mcL AO Workflow SS Schistocytes LM Ql (Bld) 1+ *NA* (09/22/24 7:19 AM) Invalid Interpretation Code AO Workflow SS Sodium [Moles/Vol] 130 mmol/L Low 136 - 145 mmol/L AO ADM SS Toxic granules LM Ql (Bld) 1+ *NA* (09/22/24 7:19 AM) Invalid Interpretation Code AO Workflow SS Troponin I.cardiac DL <= 0.01 ng/mL [Mass/Vol] 56 ng/L Normal 0 - 76 ng/L AO ADM SS Comment on above: Interpretive Data: H igh Sensitive Troponin I Reference Ranges: Female: 0-51 ng/L Male: 0-76 ng/L Testing performed on [employer] using a homogeneous sandwich chemiluminescent immunoassay based on [employer] technology. Urea nitrogen [Mass/Vol] 64 mg/dL High 7 - 18 mg/dL AO ADM SS Urea nitrogen/Creatinine [Mass ratio] 57 ratio High 7 - 27 ratio AO ADM SS WBC (Bld) [#/Vol] 22.1 103/mcL High 4.5 - 10.8 10^3/mcL AO Workflow SS LABORATORYOrdered By: Rehana Kaur on 09-22-2024 Amphetamines Screen Ql (U) Positive *ABN* (09/22/24 8:35 AM) Invalid Interpretation Code Negative AO ADM SS Appearance (U) Clear (09/22/24 8:35 AM) Normal Clear AO Auto Urine SS Bacteria LM.HPF (Urine sed) [#/Area] Trace /HPF Invalid Interpretation Code Negative AO Auto Urine SS Barbiturates Screen Ql (U) Negative *NA* (09/22/24 8:35 AM) Invalid Interpretation Code Negative AO ADM SS Benzodiazepines Ql (U) Negative *NA* (09/22/24 8:35 AM) Invalid Interpretation Code Negative AO ADM SS Benzoylecgonine Screen Ql (U) Negative *NA* (09/22/24 8:35 AM) Invalid Interpretation Code Negative AO ADM SS Bilirubin Ql (U) Moderate *ABN* (09/22/24 8:35 AM) Invalid Interpretation Code Negative AO Auto Urine SS Cannabinoids Screen Ql (U) Positive *ABN* (09/22/24 8:35 AM) Invalid Interpretation Code Negative AO ADM SS Color (U) Yellow (09/22/24 8:35 AM) Normal AO Auto Urine SS Crystals.amorphous LM.HPF (Urine sed) [#/Area] 2 /[HPF] Normal AO Auto Urine SS Glucose Test strip (U) [Mass/Vol] Negative Normal Negative AO Auto Urine SS Hemoglobin Auto test strip (U) [Mass/Vol] Small *ABN* (09/22/24 8:35 AM) Invalid Interpretation Code Negative AO Auto Urine SS Ketones Ql (U) Negative Normal Negative AO Auto Ur ine SS Methadone Screen Ql (U) Negative *NA* (09/22/24 8:35 AM) Invalid Interpretation Code Negative AO ADM SS Opiates Screen Ql (U) Negative *NA* (09/22/24 8:35 AM) Invalid Interpretation Code Negative AO ADM SS Phencyclidine Ql (U) Negative *NA* (09/22/24 8:35 AM) Invalid Interpretation Code Negative AO ADM SS UA Leuk Est Negative (09/22/24 8:35 AM) Normal Negative AO Auto Urine SS UA Nitrite Negative (09/22/24 8:35 AM) Normal Negative AO Auto Urine SS UA pH 6.0 (09/22/24 8:35 AM) Normal 5.0 - 8.0 AO Auto Urine SS UA Protein 30 mg/dL Normal Negative AO Auto Urine SS UA RBC 0-2 /HPF Normal 0-2 AO Auto Urine SS UA Spec Grav 1.020 (09/22/24 8:35 AM) Normal 1.015-1.02 5 AO Auto Urine SS UA Specimen Type Not Given (09/22/24 8:35 AM) Normal AO Auto Urine SS UA Squam Epithelial 3-5 /HPF Normal 0-20 AO Au to Urine SS UA Urobilinogen 2.0 E.U./dL Invalid Interpretation Code 0.2-1.0 AO Auto Urine SS Urine Drugs screened: See Below 7 (09/22/24 8:35 AM) Normal AO Chemistry S Comment on above: Interpretive Data: T his drug screen is a presumptive screening only. No confirmation will be performed unless requested. Drugs screened include: Threshold Amphetamines/Methamphetamines 1,000 ng/mL Barbiturates 200 ng/mL Benzodiazepine metabolites 200 ng/mL Cannabinoids (THC metabolites) 50 ng/mL Cocaine 300 ng/mL Opiates 300 ng/mL Methadone 300 ng/mL Phencyclidine (PCP) 25 ng/mL Testing has been performed FOR MEDICAL PURPOSES ONLY. WBC LM.HPF (Urine sed) [#/Area] 5-10 /HPF Invalid Interpretation Code 0-5 AO Auto Urine SS Acetaminophen [Mass/Vol] 0.0 ug/mL Low 10.0 - 30.0 mcg/mL AO Chemistry S Ethanol [Mass/Vol] mg/dL Invalid Interpretation Code AO Chemistry S FLUAV RNA BRAD+probe Ql (Resp) Negative (09/22/24 7:19 AM) Normal Negative AO Auto Urine SS FLUBV RNA BRAD+probe Ql (Resp) Negative (09/22/24 7:19 AM) Normal Negative AO Auto Urine SS RSV RNA BRAD+probe Ql (Resp) Negative (09/22/24 7:19 AM) Normal Negative AO Auto Urine SS Salicylates [Mass/Vol] mg/dL Low 2.8 - 20.0 mg/dL AO Chemistry S SARS-CoV-2 (COVID-19) RNA BRAD+probe Ql (Resp) Negative 9 (09/22/24 7:19 AM) Normal Negative AO Auto Urine SS Comment on above: Interpretive Data: R esults from the Xpert Xpress CoV-2/Flu/RSV plus test should be correlated with the clinical history, epidemiological data, and other data available to the clinical evaluating the patient. Performance of the Xpert Xpress CoV-2/Flu/RSV plus test has only been established in nasopharyngeal swab specimen. Erroneous test results might occur from improper specimen collection, failure to follow the recommended sample collection, handling and storage procedures, technical error, or sample mix-up. False negative results may occur if a virus is present at a level below the analytical limit of detection. Viral nucleic acid may persist in vivo, independent of virus viability. Detection of analyte target(s) does not imply that the corresponding virus(es) are infectious or are the causative agents for clinical symptoms. Recent patient exposure to FluMist or other live attenuated influenza vaccines may cause inaccurate positive results. Suzy 09-22-2024 Lactic Acid Lvl 5.1 mmol/L High 0.5-2.2 [facility] Comment on above: Performed By: #### L AC ####[place] [id number] [place] [address] Lactic Acid Lvl 4.8 mmol/L High 0.5-2.2 [facility] Comment on above: Performed By: #### L AC ####[place] [address] Lactic Acid Lvl 6.2 mmol/L High 0.5-2.2 [facility] Comment on above: Order Comment: Order ed secondary to Lactic Acid result greater than or equal to 2.0 Performed By: #### L AC ####[place] [address] Lactic Acid Lvl 7.0 mmol/L High 0.5-2.2 [facility] Comment on above: Performed By: #### C MP, GFR, LAC, APTT, CBC, MG, TROPHS, PRO, DIFF, MORPH ####[place] [address] Lactic Acid Lvl 7.3 mmol/L Critically abnormal 0.4-2.0 [facility] Comment on above: Order Comment: Colle cted wrong one by mistake BRM Performed By: #### G FR, BMP #### [address] [address] Lactic Acid Lvl 8.5 mmol/L Critically abnormal 0.4-2.0 [facility] Comment on above: Performed By: #### P RO, MORPH, ADIFF, ANEU, TROPHS, MDW, APTT, GFR, CBC, PBNP, CMP, LAC #### [address] [address] MGon 09-22-2024 Magnesium [Mass/Vol] 2.9 mg/dL High 1.6-2.[address] [facility] Comment on above: Performed By: #### C MP, GFR, LAC, APTT, CBC, MG, TROPHS, PRO, DIFF, MORPH ####[address] [address] No Panel Informationon 09-22 GSAER Gram Positive [facility] GSANA Gram Positive [facility] Microscopic examination of blood, culture Culture has been received in lab and is no growth to date. Routine cultures are held for 5 days. [facility] GSAER Gram Positive [facility] GSANA Gram Positive [facility] Microscopic examination of blood, culture Culture has been received in lab and is no growth to date. Routine cultures are held for 5 days. [facility] PBNPon 09-22-2024 Natriuretic peptide B (Bld) [Mass/Vol] 8566 pg/mL High 0-125 [facility] Comment on above: Result Comment: NT-p roBNP results of less than 300 pg/mL effectively rules out acute congestive heart failure with 99% negative predictive value. Performed By: #### P RO, MORPH, ADIFF, ANEU, TROPHS, MDW, APTT, GFR, CBC, PBNP, CMP, LAC #### [facility] [address] [place], [place] [address] PROon 09-22-2024 INR Coag (PPP) [Relative time] 1.8 {INR} Normal [facility] Comment on above: Result Comment: [employer] (CHEST, 1992, 102:312S-25S)recommended therapeutic range for oral anticoagulant therapy is:LOW RISK: Prophylaxis of venous thrombosis INR: 2.0-3.0 Treatment of pulmonary embolism 2.0-3.0 Prevention of systemic embolism 2.0-3.0HIGH RISK: Mechanical prosthetic valves 2.5-3.5 Performed By: #### C MP, GFR, LAC, APTT, CBC, MG, TROPHS, PRO, DIFF, MORPH ####[facility] [place] [id number] PT Coag (PPP) [Time] 20.6 s High 9.0-14.[address] [facility] Comment on above: Result Comment: Effe ctive 10/31/07, Protime results may be affected by some antibiotics (i.e. Ciprofloxacin, Azithromycin, Bactrim) which may potentiate the action of oral anticoagulants, with further increases in Protime/INR. Performed By: #### C MP, GFR, LAC, APTT, CBC, MG, TROPHS, PRO, DIFF, MORPH ####[address] [address] PT Coag (PPP) [Time] 19.6 s High 9.0-14.4 [facility] Comment on above: Performed By: #### P RO, MORPH, ADIFF, ANEU, TROPHS, MDW, APTT, GFR, CBC, PBNP, CMP, LAC #### [address] [address] PT International Ratio 1.7 Normal [facility] Comment on above: Result Comment: [employer] (CHEST, 1992, 102:312S-25S) recommended therapeutic range for oral anticoagulant therapy is: LOW RISK: Prophylaxis of venous thrombosis INR: 2.0-3.0 Treatment of pulmonary embolism 2.0-3.0 Prevention of systemic embolism 2.0-3.0 HIGH RISK: Mechanical prosthetic valves 2.5-3.5 Performed By: #### P RO, MORPH, ADIFF, ANEU, TROPHS, MDW, APTT, GFR, CBC, PBNP, CMP, LAC #### [address] [address] SALon 09-22-2024 Salicylate Level <0.2 Low 2.8-20.0 [facility] Comment on above: Performed By: #### G FR, BMP #### [address] [address] TROPHSon 09-22-2024 High Sensitivity Troponin I 50 ng/L Normal 0-54 [facility] Comment on above: Result Comment: High Sensitive Troponin I Reference Ranges:Female: 0-34 ng/LMale: 0-54 ng/LTesting performed on [employer] IM analyzer using direct chemiluminescent technology. Performed By: #### C MP, GFR, LAC, APTT, CBC, MG, TROPHS, PRO, DIFF, MORPH ####[address] [address] High Sensitivity Troponin I 56 ng/L Normal 0-76 [facility] Comment on above: Result Comment: High Sensitive Troponin I Reference Ranges: Female: 0-51 ng/L Male: 0-76 ng/L Testing performed on [employer] using a homogeneous sandwich chemiluminescent immunoassay based on [employer] technology. Performed By: #### P RO, MORPH, ADIFF, ANEU, TROPHS, MDW, APTT, GFR, CBC, PBNP, CMP, LAC #### [place] [id number] [place], [place] [address] UAon 09-22-2024 Color (U) Dark Yellow Normal [facility] Comment on above: Performed By: #### U A ####[place] [address] Glucose (U) [Mass/Vol] Negative Normal Negative [facility] Comment on above: Performed By: #### U A ####[place] [address] Ketones Ql (U) Negative Normal Neg-Trace [facility] Comment on above: Performed By: #### U A ####[place] [address] UA Appear Clear Normal Clear [facility] Comment on above: Performed By: #### U A ####[place] [address] UA Bili Moderate Abnormal Neg-Trace [facility] Comment on above: Result Comment: Sugg est correlation with serum bilirubin and clinical findings if medically necessary. Performed By: #### U A ####[place] [address] UA Blood Negative Normal Neg-Trace [facility] Comment on above: Performed By: #### U A ####[place] [address] UA Leuk Est Negative Normal Negative [facility] Comment on above: Performed By: #### U A ####[place] [address] UA Nitrite Negative Normal Negative [facility] Comment on above: Performed By: #### U A ####[place] [address] UA pH 5.5 Normal 5.0 - 8.0 [facility] Comment on above: Performed By: #### U A ####[address] [address] UA Protein 30 mg/dL Normal Negative [facility] Comment on above: Performed By: #### U A ####[address] [address] UA Spec Grav >=1.030 Abnormal 1.006-1.02 9 [facility] Comment on above: Performed By: #### U A ####[place] [address] UA Specimen Type Clean Catch Normal [facility] Comment on above: Performed By: #### U A ####[place] [address] UA Urobilinogen 1.0 E.U./dL Normal 0.2-1.0 [facility] Comment on above: Performed By: #### U A ####[place] [address] Color (U) Yellow Normal [facility] Comment on above: Performed By: #### G FR, BMP #### [address] [address] Glucose (U) [Mass/Vol] Negative Normal Negative [facility] Comment on above: Performed By: #### G FR, BMP #### [address] [address] Ketones Ql (U) Negative Normal Negative [facility] Comment on above: Performed By: #### G FR, BMP #### [address] [address] UA Appear Clear Normal Clear [facility] Comment on above: Performed By: #### G FR, BMP #### [address] [address] UA Bili Moderate Abnormal Negative [facility] Comment on above: Performed By: #### G FR, BMP #### [address] [address] UA Blood Small Abnormal Negative [facility] Comment on above: Performed By: #### G FR, BMP #### [address] [address] UA Leuk Est Negative Normal Negative [facility] Comment on above: Performed By: #### G FR, BMP #### [address] [address] UA Nitrite Negative Normal Negative [facility] Comment on above: Performed By: #### G FR, BMP #### [place] [id number] UA pH 6.0 Normal 5.0 - 8.0 [facility] Comment on above: Performed By: #### G FR, BMP #### [address] [address] UA Protein 30 mg/dL Normal Negative [facility] Comment on above: Performed By: #### G FR, BMP #### [place] [address] UA Spec Grav 1.020 Normal 1.015-1.02 5 [facility] Comment on above: Performed By: #### G FR, BMP #### [address] [address] UA Specimen Type Not Given Normal [facility] Comment on above: Performed By: #### G FR, BMP #### [address] [address] UA Urobilinogen 2.0 E.U./dL Abnormal 0.2-1.0 [facility] Comment on above: Performed By: #### G FR, BMP #### [address] [address] UAMICon 09-22-2024 UA Amorphus 2+ /hpf Normal [facility] Comment on above: Performed By: #### G FR, BMP #### [address] [address] UA Bacteria Trace Abnormal Negative [facility] Comment on above: Performed By: #### G FR, BMP #### [place] [address] UA RBC 0-2 Normal 0-2 [facility] Comment on above: Performed By: #### G FR, BMP #### [address] [address] UA Squam Epithelial 3-5 Normal 0-20 [facility] Comment on above: Performed By: #### G FR, BMP #### [address] [address] UA WBC 5-10 Abnormal 0-5 [facility] Comment on above: Performed By: #### G FR, BMP #### [address] [address] UDRUGon 09-22-2024 Amphetamine (u) Positive Abnormal Negative [facility] Comment on above: Performed By: #### U DRUG #### [address] [address] Barbiturate (u) Negative Normal Negative [facility] [facility] Comment on above: Performed By: #### U DRUG #### [address] [address] Benzodiazepine (u) Negative Normal Negative [facility] Comment on above: Performed By: #### U DRUG #### [address] [address] Cannabinoid (u) Positive Abnormal Negative [facility] Comment on above: Performed By: #### U DRUG #### [address] [address] Cocaine Ql (U) Negative Normal Negative [facility] Comment on above: Performed By: #### U DRUG #### [address] [address] Methadone Ql (U) Negative Normal Negative [facility] Comment on above: Performed By: #### U DRUG #### [address] [address] Opiate (u) Negative Normal Negative [facility] Comment on above: Performed By: #### U DRUG #### [address] [address] PCP (u) Negative Normal Negative [facility] Comment on above: Performed By: #### U DRUG #### [address] [address] Urine Drugs screened: See Below Normal [facility] Comment on above: Result Comment: This drug screen is a presumptive screening only. No confirmation will be performed unless requested. Drugs screened include: Threshold Amphetamines/Methamphetamines 1,000 ng/mL Barbiturates 200 ng/mL Benzodiazepine metabolites 200 ng/mL Cannabinoids (THC metabolites) 50 ng/mL Cocaine 300 ng/mL Opiates 300 ng/mL Methadone 300 ng/mL Phencyclidine (PCP) 25 ng/mL Testing has been performed FOR MEDICAL PURPOSES ONLY. Performed By: #### U DRUG #### [address] [address] XR CHEST 1 VIEWon 09-22-2024 XR CHEST 1 VIEW Normal [facility] XR CHEST 1 VIEW Normal [facility] XR CHEST 1 VIEW Normal [facility] XR ENTERIC TUBE PLACEMENTon 09-22-2024 XR ENTERIC TUBE PLACEMENT Normal [facility] .GFRon 05-22-2024 Estimated Glomerular Filtration Rate 82 ml/min/1.73sqm Normal [facility] Comment on above: Result Comment: Stages of Chronic Kidney Disease (CKD) Stage Description eGFR(ml/min/1.73 sq.m.) CKD 1 Normal kidney function or >=90 normal kindney function with possible kidney damage (ex. Proteinuria) CKD 2 Kidney damage with mild loss 60-89 of kidney function CKD 3a Mild to moderate loss of kidney 45-59 function CKD 3b Moderate to severe loss of 30-44 of kindey function CKD 4 Severe loss of kidney function 15-29 CKD 5 Kidney failure <15 Note: (go live 2024) the eGFR calculation was updated to the 2020 CKD-EPI creatinine equation without a race factor to calculate the eGFR results. Performed By: #### G FR BMP #### [address] [address] BMPon 05-22-2024 BUN/Creatinine Ratio 12 ratio Normal 7-27 [facility] Comment on above: Performed By: #### G , BMP #### [address] [address] Calcium [Mass/Vol] 9.4 mg/dL Normal 8.4-10.2 [facility] Comment on above: Performed By: #### Mack SIERRA, BMP #### [address] [address] Chloride [Moles/Vol] 100 mmol/L Normal 98-107 [facility] Comment on above: Performed By: #### Mack SIERRA, BMP #### [address] [address] CO2 [Moles/Vol] 30 mmol/L High 22-29 [facility] Comment on above: Performed By: #### Mack SIERRA, BMP #### [address] [address] Creatinine [Mass/Vol] 1.22 mg/dL Normal 0.70-1.30 [facility] Comment on above: Result Comment: Test ing performed on Siemens Dimension EXL analyzer using a modified kinetic Cam technique. Performed By: #### Mack SIERRA, BMP #### [address] [address] Electrolyte Balance 10.0 mEq/L Normal 4.0-15.0 [facility] Comment on above: Performed By: #### Mack SIERRA, BMP #### [address] [address] Glucose [Mass/Vol] 149 mg/dL High 70-105 [facility] Comment on above: Performed By: #### Mack SIERRA, BMP #### [address] [address] Potassium [Moles/Vol] 3.2 mmol/L Low 3.5-5.1 [facility] Comment on above: Performed By: #### Mack SIERRA, BMP #### [address] [address] Sodium [Moles/Vol] 140 mmol/L Normal 136-145 [facility] Comment on above: Performed By: #### Mack SIERRA, BMP #### [address] [address] Urea nitrogen [Mass/Vol] 15 mg/dL Normal 7-18 [facility] Comment on above: Performed By: #### G , [facility] #### [facility] [address] [place], [place] [address] LABORATORYOrdered By: SYSTEM SYSTEM on 05-22-2024 Calcium [Mass/Vol] 9.4 mg/dL Normal 8.4 - 10. 2 mg/dL AO ADM SS Chloride [Moles/Vol] 100 mmol/L Normal 98 - 10 7 mmol/L AO ADM SS CO2 [Moles/Vol] 30 mmol/L High 22 - 29 mmol/L AO ADM SS Creatinine [Mass/Vol] 1.22 mg/dL Normal 0.70 - 1.30 mg/dL AO ADM SS Comment on above: Interpretive Data: T esting performed on [employer] (formerly [employer]) Dimension EXL analyzer using a modified kinetic Cam technique. Electrolyte Balance 10.0 mEq/L Normal 4.0 - 15 .0 mEq/L AO ADM SS Estimated Glomerular Filtration Rate 82 ml/min/1.73sqm Invalid Interpretation Code AO Chemistry S Comment on above: Interpretive Data: Stages of Chronic Kidney Disease (CKD) Stage Description eGFR(ml/min/1.73 sq.m.) CKD 1 Normal kidney function or >=90 normal kindney function with possible kidney damage (ex. Proteinuria) CKD 2 Kidney damage with mild loss 60-89 of kidney function CKD 3a Mild to moderate loss of kidney 45-59 function CKD 3b Moderate to severe loss of 30-44 of kindey function CKD 4 Severe loss of kidney function 15-29 CKD 5 Kidney failure <15 Note: (go live 2024) the eGFR calculation was updated to the 2020 CKD-EPI creatinine equation without a race factor to calculate the eGFR results. Glucose [Mass/Vol] 149 mg/dL High 70 - 105 mg/dL AO ADM SS Potassium [Moles/Vol] 3.2 mmol/L Low 3.5 - 5.1 mmol/L AO ADM SS Sodium [Moles/Vol] 140 mmol/L Normal 136 - 145 mmol/L AO ADM SS Urea nitrogen [Mass/Vol] 15 mg/dL Normal 7 - 18 mg/dL AO ADM SS Urea nitrogen/Creatinine [Mass ratio] 12 ratio Normal 7 - 27 ratio AO ADM SS 12 Lead EKGon 10-11-2023 12 Lead EKG [facility] [address] [place] [address] 12 Lead EKG 10/11/23 2233 MR#: [id number] Acct: [id number] Name: SAM JIMENEZ Rep #: [id number] : 1995 28 From: Mahsa Hammond MD Attending Dr: Dr. Sherie Zepeda MD Status: RE G REF Ordering Dr: Sherie Zepeda MD Date: 10/11/23 Location: EDREF Sex: M AA Admitted: Test Reason : CP Blood Pressure : / mmHG Vent. Rate : 126 BPM Atrial Rate : 126 BPM P-R Int : 126 ms QRS Dur : 092 ms QT Int : 330 ms P-R-T Axes : 063 041 007 degrees QTc Int : 477 ms Sinus tachycardia Possible Left atrial enlargement Borderline ECG Confirmed by Mahsa Hammond ([id number]), acquisition editor CONCEPCIÓN ZHOU ([id number]) on 10/13/2023 11:16:53 AM Referred By: ADDISON Confirmed By:Mahsa Hammond 10/13/23 1116 Date Mahsa Hammond MD CC: Dr. Sherie Zepeda MD; No Primary Care Physician Signed Normal [facility] Basic Metabolic Profile (BMP )on 10-11-2023 BUN/CRE 12.8 RATIO Normal 10-20 [facility] Comment on above: Order Comment: 'TROP ' Serial specimen #1, #2 or #3: 1 Performed By: #### L 500.2500, L501.4020, L100.0100 #### [facility] [address], [address] CA,Total 10.5 mg/dL High 8.5-10.1 [facility] Comment on above: Order Comment: 'TROP ' Serial specimen #1, #2 or #3: 1 Performed By: #### L 500.2500, L501.4020, L100.0100 #### [facility] [address] [place], [address] Chloride [Moles/Vol] 99 mmol/L Normal 98-107 [facility] Comment on above: Order Comment: 'TROP ' Serial specimen #1, #2 or #3: 1 Performed By: #### L 500.2500, L501.4020, L100.0100 #### [facility] [address] [place], [address] CO2 [Moles/Vol] 26.0 mmol/L Normal 21.0-32.0 [facility] Comment on above: Order Comment: 'TROP ' Serial specimen #1, #2 or #3: 1 Performed By: #### L 500.2500, L501.4020, L100.0100 #### [facility] [address] [place], [address] Creatinine [Mass/Vol] 1.25 mg/dL Normal 0.70-1.[address] [facility] Comment on above: Order Comment: 'TROP ' Serial specimen #1, #2 or #3: 1 Result Comment: The validity of the calculated GFR GFRAA in patients over 70 years has not been determined. Clinical correlation is essential. Performed By: #### L 500.2500, L501.4020, L100.0100 #### [facility] [address] [place], [address] ECRCL 69.81 ml/min Normal [facility] Comment on above: Order Comment: 'TROP ' Serial specimen #1, #2 or #3: 1 Performed By: #### L 500.2500, L501.4020, L100.0100 #### [facility] [address] [place], [address] EST GFR - AA 88 mL/min Normal >60 [facility] Comment on above: Order Comment: 'TROP ' Serial specimen #1, #2 or #3: 1 Result Comment: Afri can Bahamian GFR Calc Performed By: #### L 500.2500, L501.4020, L100.0100 #### [facility] [address] [place], [address] GAP 11 Normal 5-15 [facility] Comment on above: Order Comment: 'TROP ' Serial specimen #1, #2 or #3: 1 Performed By: #### L 500.2500, L501.4020, L100.0100 #### [facility] [address] [place], [address] GFR/1.73 sq M.predicted among non-blacks MDRD (S/P/Bld) [Vol rate/Area] 73 mL/min/{1.73_m2} Normal >60 [facility] Comment on above: Order Comment: 'TROP ' Serial specimen #1, #2 or #3: 1 Result Comment: Non- GFR Calc Performed By: #### L 500.2500, L501.4020, L100.0100 #### [facility] [address] [place], [address] Glucose [Mass/Vol] 99 mg/dL Normal 74-106 [facility] Comment on above: Order Comment: 'TROP ' Serial specimen #1, #2 or #3: 1 Performed By: #### L 500.2500, L501.4020, L100.0100 #### [facility] [address] [place], [address] Potassium [Moles/Vol] 4.1 mmol/L Normal 3.5-5.[address] [facility] Comment on above: Order Comment: 'TROP ' Serial specimen #1, #2 or #3: 1 Performed By: #### L 500.2500, L501.4020, L100.0100 #### [facility] [address] [place], [address] Sodium [Moles/Vol] 136 mmol/L Normal 136-145 [facility] Comment on above: Order Comment: 'TROP ' Serial specimen #1, #2 or #3: 1 Performed By: #### L 500.2500, L501.4020, L100.0100 #### [facility] [address] [place], [address] Urea nitrogen [Mass/Vol] 16 mg/dL Normal 7-18 [facility] Comment on above: Order Comment: 'TROP ' Serial specimen #1, #2 or #3: 1 Performed By: #### L 500.2500, L501.4020, L100.0100 #### [facility] [address] [place], [address] CBC W/Diff, Automatedon 09-17-2023 Absolute Lymph 1.91 X10 3/uL Normal 0.83-4.51 [facility] Comment on above: Performed By: #### L 500.2500, L501.4020, L100.0100 #### [facility] [address] [place], [address] Absolute Neut 4.4 X10 3/uL Normal 2.0-7.7 [facility] Comment on above: Performed By: #### L 500.2500, L501.4020, L100.0100 #### [facility] [address] [place], [address] Basophils/100 WBC (Bld) 0.4 % Normal 0-1 [facility] Comment on above: Performed By: #### L 500.2500, L501.4020, L100.0100 #### [facility] [address] [place], [address] Eosinophils/100 WBC (Bld) 0.8 % Normal 0-5 [facility] Comment on above: Performed By: #### L 500.2500, L501.4020, L100.0100 #### [facility] [address] [place], [address] Erythrocyte distribution width (RBC) [Ratio] 13.2 % Normal 11.6-14.6 [facility] Comment on above: Performed By: #### L 500.2500, L501.4020, L100.0100 #### [facility] [address] [place], [address] Hematocrit (Bld) [Volume fraction] 46.8 % Normal 40-54 [facility] Comment on above: Performed By: #### L 500.2500, L501.4020, L100.0100 #### [facility] [address] [place], [address] Hemoglobin (Bld) [Mass/Vol] 15.3 g/dL Normal 13.0-16.5 [facility] Comment on above: Performed By: #### L 500.2500, L501.4020, L100.0100 #### [facility] [address] [place], [address] IG% 0.100 Normal 0.0-0.9 [facility] Comment on above: Result Comment: IG% - Immature Granulocytes (promyelocytes, myelocytes and metamyelocytes) > 1% indicates that a LEFT SHIFT is Present. Performed By: #### L 500.2500, L501.4020, L100.0100 #### [facility] [address] [place], [address] Lymphocytes/100 WBC (Bld) 26.9 % Normal 19-41 [facility] Comment on above: Performed By: #### L 500.2500, L501.4020, L100.0100 #### [facility] [address] [place], [address] MCH (RBC) [Entitic mass] 27.2 pg Normal 27.0-32.0 [facility] Comment on above: Performed By: #### L 500.2500, L501.4020, L100.0100 #### [facility] [address] [place], [address] MCHC (RBC) [Mass/Vol] 32.7 g/dL Normal 32-[address] [facility] Comment on above: Performed By: #### L 500.2500, L501.4020, L100.0100 #### [facility] [address] [place], [address] MCV (RBC) [Entitic vol] 83.3 fL Normal 80-94 [facility] Comment on above: Performed By: #### L 500.2500, L501.4020, L100.0100 #### [facility] [address] [place], [address] Monocytes/100 WBC (Bld) 9.7 % Normal 0-10 [facility] Comment on above: Performed By: #### L 500.2500, L501.4020, L100.0100 #### [facility] [address] [place], [address] Neutrophils/100 WBC (Bld) 62.1 % Normal 47-70 [facility] Comment on above: Performed By: #### L 500.2500, L501.4020, L100.0100 #### [facility] [address] [place], [address] Nucleated RBC (Bld) [#/Vol] 0 10*3/uL Normal 0-5 [facility] Comment on above: Performed By: #### L 500.2500, L501.4020, L100.0100 #### [facility] [address] [place], [address] Platelet mean volume (Bld) [Entitic vol] 10.0 fL Normal 6.2-12.0 [facility] Comment on above: Performed By: #### L 500.2500, L501.4020, L100.0100 #### [facility] [address] [place], [address] Platelets (Bld) [#/Vol] 360 10*3/uL Normal 150-450 [facility] Comment on above: Performed By: #### L 500.2500, L501.4020, L100.0100 #### [facility] [address] [place], [address] RBC (Bld) [#/Vol] 5.62 10*6/uL Normal 4.6-6.2 [facility] Comment on above: Performed By: #### L 500.2500, L501.4020, L100.0100 #### [facility] [address] [place], [address] RDW SD 40.4 fl Normal 35.1-43.9 [facility] Comment on above: Performed By: #### L 500.2500, L501.4020, L100.0100 #### [facility] [address] [place], [address] WBC (Bld) [#/Vol] 7.1 10*3/uL Normal 4.4-11.0 [facility] Comment on above: Performed By: #### L 500.2500, L501.4020, L100.0100 #### [facility] [address] [place], [address] Chest 1 View (Portable)on Chest 1 View (Portable) [facility] Imaging Services [address] [place] [address] Chest 1 View (Portable) MR#: [id number] Acct: [id number] Name: SAM JIMENEZ Rep #: [id number] : 1995 M 28 From: Joe mccarthy DO PCP: Care Physician,No Primary Status: REG ER Study: Chest 1 View (Portable) Date of Exam: 10/11/23 Exam# [id number] Ordering Dr: Sherie Zepeda MD [id number] EXAM: XR CHEST, 1 VIEW CLINICAL INDICATION: cp TECHNIQUE: Frontal view of the chest. COMPARISON: 03/23/2020 FINDINGS: LUNGS AND PLEURAL SPACES: No significant abnormality. No consolidation or edema. No pneumothorax. No effusion. HEART: Cardiac valve replacement/repair. MEDIASTINUM: Central airways and mediastinal contour are unremarkable. BONES/JOINTS: Status post median sternotomy. No acute fracture. SOFT TISSUES: No significant abnormality. RAD/Chest 1 View (Portable) IMPRESSION: Cardiac valve replacement/repair. No additional evidence of acute findings. Electronically Signed: Joe Baldwin DO at 23:24 EDT , CC: Dr. Sherie Zepeda MD; No Primary Care Physician Broker In Charge: Signed Normal [facility] Emergency Department Summary on 10-11-2023 Emergency Department Summary [facility] Medical Records Department [address] [place] [id number] Emergency Department Summary 10/11/23 MR#: [id number] Acct: [id number] Name: SAM JIMENEZ Rep #: [id number] : 1995 28 From: Sherie Zepeda MD PCP: Care Physician,No Primary Status:REG REF Location: EDREF HPI History of Present Illness Chief Complaint: Chest Pain Informant: patient Onset/Context/Timing Onset: Today Narrative Narrative: [facility] from [facility] secondary to chest pain. Patient states that he was getting worked up and anxious, started breathing fast and his heart started racing. He developed chest pain so he was brought in for evaluation. Patient does have a large scarred on the center of his chest. He states he had surgery because of an infection in his heart valve in the past. [facility] Medical History (Updated 10/12/23 @ 01:[address] Sherie Zepeda MD) Endocarditis Home Medications ???Medication ???Instructions ???Recorded ???Last Taken ???Type fluoxetine 20 mg tablet 20 mg PO DAILY #30 tabs 03/25/20 Unknown Rx Allergy/AdvReac Type Severity Reaction Status Date / Time No Known Allergies Allergy Verified 10/11/23 22:46 Surgical History Heart valve replaced Social History Smoking Status: Current every day smoker tobacco type: cigarettes ROS ROS ED Constitutional Constitutional ED: Denies chills or fever(s) Eyes Eyes: Denies discharge from eye(s) ENT ENT ED: Denies discharge from eye(s), rhinorrhea or sore throat Cardiovascular Cardiovascular: Reports chest pain and racing heartbeat Respiratory/Chest Respiratory/Chest: Reports dyspnea; Denies cough Gastrointestinal Gastrointestinal: Denies abdominal pain, nausea or vomiting Musculoskeletal Musculoskeletal: Denies back pain or extremity pain Integumentary Denies Abrasions or rash Neurologic Neurologic: Denies headache(s) or weakness Psychiatric Psychiatric: Reports anxiety; Denies depression Allergic/Immunologic Allergic/Immunologic ED: Denies lip swelling or urticaria EXAM Physical Exam Const Vital Signs: 10/11/23 22:31 10/11/23 22:38 10/11/23 22:43 Temperature 98.1 F Temperature Source Temporal Pulse Rate 124 H 122 H Respiratory Rate 26 H 28 H Respiratory Effort Normal Blood Pressure 161/126 H Blood Pressure Mean 137 Pulse Ox 100 95 Oxygen Delivery Method Room Air Room Air 10/11/23 23:03 10/12/23 00:00 Temperature Temperature Source Pulse Rate 102 H 93 Respiratory Rate 17 13 Respiratory Effort Blood Pressure 120/91 H 111/89 H Blood Pressure Mean 100 96 Pulse Ox 99 100 Oxygen Delivery Method Room Air Room Air Positive well nourished and well developed General Appearance ED: well developed HEENT Reports moist mucous membranes Chest Wall palpation of chest normal Chest Narrative: Old midline surgical scar. Resp Resp Narrative: Patient tachypneic but lungs are clear bilaterally. Cardio Rate: tachycardic GI soft to palpation and non-tender Extremity normal to inspection Neuro oriented x3 Psych Mood Affect: anxious and tearful MDM MDM MDM Narrative Medical decision making narrative: Patient placed on environmental monitoring technician. IV line initiated. Labwork obtained to evaluate for leukocytosis, anemia, and electrolyte derangement. Chest x-ray obtained to evaluate for acute lung pathology, cardiac size, or mediastinal abnormality. EKG obtained to evaluate for cardiac arrhythmia/ischemia. Patient given 0.5 mg of IV Ativan for anxiety. History Record Review Discussion w/independent historian: Patient Lab Data Attestation: I reviewed the patient's lab results. Labs: Laboratory Results - last 24 hr 10/11/23 22:45 WBC 7.1 RBC 5.62 Hgb 15.3 Hct 46.8 MCV 83.3 MCH 27.2 MCHC 32.7 RDW Std Deviation 40.4 RDW Coeff of Sohail 13.2 Plt Count 360 MPV 10.0 Immature Gran % (Auto) 0.100 Neut % (Auto) 62.1 Lymph % (Auto) 26.9 [place] % (Auto) 9.7 Eos % (Auto) 0.8 Baso % (Auto) 0.4 Absolute Neuts (auto) 4.4 Absolute Lymphs (auto) 1.91 Nucleated RBC % 0 Sodium 136 Potassium 4.1 Chloride 99 Carbon Dioxide 26.0 Anion Gap 11 BUN 16 Creatinine 1.25 Estim Creat Clear Calc 69.81 Est GFR (MDRD) Af Amer 88 Est GFR (MDRD) Non-Af 73 BUN/Creatinine Ratio 12.8 Glucose 99 Calcium 10.5 H Troponin I High Sens 4 Radiography Chest X-Ray - ED: 1 View, Read by ED Physician, Chronic Changes and No Infiltrates Diagnostic Testing: Clinical Impression(s) from Imaging Studies Chest X-Ray 10/11/23 22:45 IMPRESSION: Cardiac valve replacem (more content not included)... Normal [facility] L501.4020on 10-11-2023 TROPONIN-I HS 4 pg/mL Normal 3.0-78.0 [facility] Comment on above: Order Comment: 'TROP ' Serial specimen #1, #2 or #3: 1 Result Comment: Plea se Note: New Test Units and Gender Specific Reference Ranges. For more information see Policy Stat Procedure [place] High Sensitivity Troponin (TNIH) and attachments. Performed By: #### L 500.2500, L501.4020, L100.0100 #### [facility] [address] [place], [address] IR CVC REMOVALon 07-08-2023 IR CVC REMOVAL Interpreted By: Ata Snyder ud, STUDY: IR CVC REMOVAL; 07/08/2023 10:49 am INDICATION: Signs/Symptoms:Tunneled picc removal. COMPARISON: None. ACCESSION NUMBER(S): [id number] ORDERING CLINICIAN: MELISSA COPE TECHNIQUE: INTERVENTIONALIST(S): Ata Alvarez MD The history and physical exam pertinent to the procedure were reviewed and no updates were made. CONSENT: The patient/patient's POA/next of kin was informed of the nature of the proposed procedure. The purposes, alternatives, risks, and benefits were explained and discussed. All questions were answered and consent was obtained. RADIATION EXPOSURE: None SEDATION: None MEDICATION/CONTRAST: No additional TIME OUT: A time out was performed immediately prior to procedure start with the interventional team, correctly identifying the patient name, date of , MRN, procedure, anatomy (including marking of site and side), patient position, procedure consent form, relevant laboratory and imaging test results, antibiotic administration, safety precautions, and procedure-specific equipment needs. COMPLICATIONS: No immediate adverse events identified. FINDINGS: The rightneck and chest were prepped and draped in a sterile fashion. Retaining sutures of the indwelling tunneled small bore catheter were cut. Then using gentle pressure, the cuff was freed. The entirety of the catheter was then removed during suspended breathing. Patient tolerated the procedure well. The exit site was covered with sterile bandage. IMPRESSION: Technically successful removal of right IJ tunneled small bore catheter. I was present for and/or performed the critical portions of the procedure and immediately available throughout the entire procedure. I personally reviewed the image(s)/study and interpretation. I agree with the findings as stated. Performed and dictated at [facility]. MACRO: None Signed by: Ata Alvarez 07/13/2023 1:59 PM Dictation workstation: [id number] [facility] Stella 07[facility]05[facility]20[facility] -------- SAM JIMENEZ ([id number]) 1995 M Date Time Provider Department 07/05/23 DOMINGO DON GASTA5 During your visit today, we recorded the following information about you: Purnima Roca RN 07/05/2023 12:43 PM Signed Received VM from Alphonso social work assistant at [facility]. Stated that pt is getting discharge from facility and will require an additional prescription for Mavyret, as he will not complete the course prior to discharge. Pt has two weeks remaining of medication. Will send message to speciality pharmacy to determine if they can utilize the refill on file to be sent to his home address. Purnima Roca RN July 05, 2023 12:41 PM Allergies As of Date: 07/05/2023 (No Known Allergies) Date Reviewed: 06/21/2023 Reviewed by: Cassandra Godoy LPN - Fully Assessed Prescriptions as of 07/06/2023 - acetaminophen (TYLENOL) 325 mg tablet Take 2 tablets by mouth every 6 hours as needed (mild to moderate pain). - torsemide (DEMADEX) 20 mg tablet Take 1 tablet by mouth once daily. Patient should start on June 14, 2023. - glecaprevir-pibrentasvir (MAVYRET) 100-40 mg tablet Take 3 tablets by mouth once daily. Take with food. - aspirin 81 mg chewable tablet Take 1 tablet by mouth once daily. - ergocalciferol 50,000 unit capsule (VITAMIN D2, DRISDOL) Take 1 capsule by mouth one time a week. - melatonin 3 mg tablet Take 1 tablet by mouth daily at bedtime. - metoprolol succinate ER (TOPROL XL) 25 mg 24 hr tablet Take 1 tablet by mouth once daily. - MULTIVITAMIN-FERROUS FUMARATE-FOLIC ACID 18 MG-400 MCG TABLET Take 1 tablet by mouth daily with breakfast. - pantoprazole DR (PROTONIX) 20 mg tablet Take 1 tablet by mouth daily at 6 am. - senna-docusate (SENNA-S) 8.6-50 mg per tablet Take 1 tablet by mouth two times a day as needed. - spironolactone (ALDACTONE) 25 mg tablet Take 0.5 tablets by mouth once daily. 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 MRSA bacteremia [R78.81, B95.62] 05/08/2023 Acute septic pulmonary embolism (HCC) [I26.90] 05/08/2023 Acute midline thoracic back pain [M54.6] 05/08/2023 Intravenous drug abuse (HCC) [F19.10] 05/08/2023 Chronic hepatitis C without hepatic coma (HCC) *05/08/2023 Adjustment disorder with mixed anxiety and depr*05/09/2023 Opioid use disorder [F11.90] 05/09/2023 Cannabis use disorder [F12.90] 05/09/2023 History of intravenous drug use in remission [Z*05/16/2023 Substance abuse (HCC) [F19.10] 05/16/2023 Dental decay [K02.9] 05/17/2023 Malnutrition of moderate degree (HCC) [E44.0] 05/27/2023 Post-op pain [G89.18] 05/30/2023 On mechanically assisted ventilation (HCC) [Z99*05/30/2023 06/01/2023 Stress hyperglycemia [R73.9] 05/30/2023 06/02/2023 Acute pneumothorax [J93.83] 05/31/2023 USP (current) use of antibiotics [Z79.2] 06/01/2023 Encounter for support and coordination of trans*06/01/2023 Jugular vein thrombosis, 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] 06/03/2023 Superficial thrombophlebitis of left upper extr*06/03/2023 Summary [Z91.199] 06/06/2023 Anemia of chronic disease [D63.8] 06/06/2023 Acute right-sided heart failure (HCC) [I50.811] 06/06/2023 Iron deficiency [E61.1] 06/07/2023 Hypovitaminosis D [E55.9] 06/07/2023 Encounter Status:Closed by PURNIMA ROCA on 07/06/23 [facility] and L[facility] CBC W Auto Differential pane l (Bld)on 06-20-2023 Abs Neut (ANC) 3.80 K/uL 1.5 - 7.6 K/uL [facility] Eosinophils/100 WBC (Bld) 5.1 % 0 - 8 [facility] Hematocrit (Bld) [Volume fraction] 35.0 % Abnormal 42 - 54 % [facility] Hemoglobin (Bld) [Mass/Vol] 11.8 g/dL Abnormal 14 - 18 g/dL [facility] Neutrophils/100 WBC (Bld) 45.4 % 40 - 80 [facility] Platelets (Bld) [#/Vol] 382 10*3/uL 150 - 450 K/uL [facility] WBC (Bld) [#/Vol] 8.3 10*3/uL 4.5 - 10.8 K/uL [facility] Comprehensive metabolic 2000 panelon 06-20-2023 Creatinine [Mass/Vol] 0.9 mg/dL 0.6 - 1.2 MG/DL [facility] VANCOMYCIN PRE DOSEon 2023 Vancomycin Pre 13.5 10 - 20 [facility] .Auto Diffon 05-06-2023 Basophil, Absolute 0.0 10 3/mcL Normal 0.0-0.3 [facility] ([place]) Comment on above: Performed By: #### B ALMA #### [address] [address] Basophils/100 WBC (Bld) 0.2 % Normal 0.0-2.5 A [facility] ([place]) Comment on above: Performed By: #### B ALMA #### [address] [address] Eosinophil, Absolute 0.1 10 3/mcL Normal 0.0-0.7 [facility] ([place]) Comment on above: Performed By: #### B ALMA #### [address] [address] Eosinophils/100 WBC (Bld) 0.5 % Normal 0.0-6.0 [facility] ([place]) Comment on above: Performed By: #### B ALMA #### [address] [address] Lymphocyte, Absolute 2.5 10 3/mcL Normal 0.9-4.3 [facility] ([place]) Comment on above: Performed By: #### B ALMA #### [address] [address] Lymphocytes/100 WBC (Bld) 18.4 % Low 20.0-40.0 [facility] ([place]) Comment on above: Performed By: #### B ALMA #### [address] [address] Monocyte, Absolute 0.5 10 3/mcL Normal 0.1-1.4 [facility] ([place]) Comment on above: Performed By: #### B ALMA #### [address] [address] Monocytes/100 WBC (Bld) 3.4 % Normal 2.0-13.0 A [facility] ([place]) Comment on above: Performed By: #### B ALMA #### [address] [address] Neutrophils/100 WBC (Bld) 77.5 % High 50.0-75.0 [facility] ([place]) Comment on above: Performed By: #### B ALMA #### [address] [address] .GFRon 05-06-2023 GFR >[address] [facility] ([place]) Comment on above: Result Comment: GFR Population mean for , Non- Americans Ages 20-29 = 116 mL/min/1.73 sq.m. Ages 30-39 = 107 mL/min/1.73 sq.m. Ages 40-49 = 99 mL/min/1.73 sq.m. Ages 50-59 = 93 mL/min/1.73 sq.m. Ages 60-69 = 85 mL/min/1.73 sq.m. Ages 70+ = 75 mL/min/1.73 sq.m. Chronic Kidney Disease: Less than 60 mL/min/1.73 square meters End Stage Renal Disease: Less than 15 mL/min/1.73 square meters Performed By: #### B ALMA #### [address] [address] GFR Non- >60 Normal [facility] ([place]) Comment on above: Result Comment: GFR Population mean for , Non- Americans Ages 20-29 = 116 mL/min/1.73 sq.m. Ages 30-39 = 107 mL/min/1.73 sq.m. Ages 40-49 = 99 mL/min/1.73 sq.m. Ages 50-59 = 93 mL/min/1.73 sq.m. Ages 60-69 = 85 mL/min/1.73 sq.m. Ages 70+ = 75 mL/min/1.73 sq.m. Chronic Kidney Disease: Less than 60 mL/min/1.73 square meters End Stage Renal Disease: Less than 15 mL/min/1.73 square meters Performed By: #### B ALMA #### [address] [address] .NEUABSon 05-06-2023 Neutrophil, Absolute 10.8 10 3/mcL High 2.3-8.1 [facility] ([place]) Comment on above: Performed By: #### B ALMA #### [address] [address] BMPon 05-06-2023 BUN/Creatinine Ratio 12.8 ratio Normal 10.0-22.0 [facility] ([place]) Comment on above: Performed By: #### B ALMA #### [address] [address] Calcium [Mass/Vol] 7.9 mg/dL Low 8.7-10.4 [facility] ([place]) Comment on above: Performed By: #### B ALMA #### [address] [address] Chloride [Moles/Vol] 109 mmol/L Normal 98-110 [facility] ([place]) Comment on above: Performed By: #### B ALMA #### [address] [address] CO2 [Moles/Vol] 27 mmol/L Normal 22-32 [facility] ([place]) Comment on above: Performed By: #### B ALMA #### [address] [address] Creatinine [Mass/Vol] 0.78 mg/dL Normal 0.60-1.40 [facility] ([place]) Comment on above: Performed By: #### B ALMA #### [address] [address] Electrolyte Balance 1.0 mEq/L Low 4.0-15.0 [facility] ([place]) Comment on above: Performed By: #### B ALMA #### [address] [address] Glucose [Mass/Vol] 80 mg/dL Normal 70-110 [facility] ([place]) Comment on above: Performed By: #### B ALMA #### [address] [address] Potassium [Moles/Vol] 4.6 mmol/L Normal 3.5-5.0 [facility] ([place]) Comment on above: Performed By: #### B ALMA #### [address] [address] Sodium [Moles/Vol] 137 mmol/L Normal 136-145 [facility] ([place]) Comment on above: Performed By: #### B ALMA #### [place] [address] Urea nitrogen [Mass/Vol] 10.0 mg/dL Normal 8.0-22.0 [facility] ([place]) Comment on above: Performed By: #### B ALMA #### [address] [address] CBCon 05-06-2023 Erythrocyte distribution width (RBC) [Ratio] 14.5 % Normal 11.5-15.5 [facility] ([place]) Comment on above: Performed By: #### B ALMA #### [address] [address] Hematocrit (Bld) [Volume fraction] 25.2 % Low 40.0-52.0 [facility] ([place]) Comment on above: Performed By: #### B ALMA #### [address] [address] Hgb 8.3 G/dL Low 13.0-17.5 [facility] ([place]) Comment on above: Performed By: #### B ALMA #### [place] [id number] MCH (RBC) [Entitic mass] 26.8 pg Low 27.0-33.0 [facility] ([place]) Comment on above: Performed By: #### B ALMA #### [place] [id number] MCHC 32.9 G/dL Normal 32.0-36.0 [facility] ([place]) Comment on above: Performed By: #### B ALMA #### [place] [address] MCV (RBC) [Entitic vol] 81.3 fL Normal 81.0-100.0 [facility] ([place]) Comment on above: Performed By: #### B ALMA #### [place] [address] Platelet 345 10 3/mcL Normal 150-450 [facility] ([place]) Comment on above: Performed By: #### B ALMA #### [place] [address] Platelet mean volume (Bld) [Entitic vol] 9.2 fL Normal 6.4-10.5 [facility] ([place]) Comment on above: Performed By: #### B ALMA #### [place] [address] RBC 3.09 10 6/mcL Low 4.50-6.00 [facility] ([place]) Comment on above: Performed By: #### B ALMA #### [place] [address] WBC 13.9 10 3/mcL High 4.5-10.8 [facility] ([place]) Comment on above: Performed By: #### B ALMA #### [place] [address] LABORATORYOrdered By: SYSTEM SYSTEM on 05-06-2023 Basophils (Bld) [#/Vol] 0.0 103/mcL Normal 0.0 - 0.3 10^3/mcL AH Workflow SS Basophils/100 WBC (Bld) 0.2 % Normal 0.0 - 2.5 % AH Workflow SS Calcium [Mass/Vol] 7.9 mg/dL Low 8.7 - 10. 4 mg/dL AH ADM SS Chloride [Moles/Vol] 109 mmol/L Normal 98 - 11 0 mEq/L AH ADM SS CO2 [Moles/Vol] 27 mmol/L Normal 22 - 32 mEq/L ADM SS Creatinine [Mass/Vol] 0.78 mg/dL Normal 0.60 - 1.40 mg/dL ADM SS Electrolyte Balance 1.0 mEq/L Low 4.0 - 15 .0 mEq/L ADM SS Eosinophils (Bld) [#/Vol] 0.1 103/mcL Normal 0.0 - 0.7 10^3/mcL Workflow SS Eosinophils/100 WBC (Bld) 0.5 % Normal 0.0 - 6.0 % Workflow SS Erythrocyte distribution width (RBC) [Ratio] 14.5 % Normal 11.5 - 15.5 % Workflow SS GFR/1.73 sq M.predicted among blacks MDRD (S/P/Bld) [Vol rate/Area] ml/min/1.73sqm Invalid Interpretation Code [employer] Chemistry S Comment on above: Interpretive Data: GFR Population mean for , Non- Americans Ages 20-29 = 116 mL/min/1.73 sq.m. Ages 30-39 = 107 mL/min/1.73 sq.m. Ages 40-49 = 99 mL/min/1.73 sq.m. Ages 50-59 = 93 mL/min/1.73 sq.m. Ages 60-69 = 85 mL/min/1.73 sq.m. Ages 70+ = 75 mL/min/1.73 sq.m. Chronic Kidney Disease: Less than 60 mL/min/1.73 square meters End Stage Renal Disease: Less than 15 mL/min/1.73 square meters GFR/1.73 sq M.predicted among non-blacks MDRD (S/P/Bld) [Vol rate/Area] ml/min/1.73sqm Invalid Interpretation Code [employer] Chemistry S Comment on above: Interpretive Data: GFR Population mean for , Non- Americans Ages 20-29 = 116 mL/min/1.73 sq.m. Ages 30-39 = 107 mL/min/1.73 sq.m. Ages 40-49 = 99 mL/min/1.73 sq.m. Ages 50-59 = 93 mL/min/1.73 sq.m. Ages 60-69 = 85 mL/min/1.73 sq.m. Ages 70+ = 75 mL/min/1.73 sq.m. Chronic Kidney Disease: Less than 60 mL/min/1.73 square meters End Stage Renal Disease: Less than 15 mL/min/1.73 square meters Glucose [Mass/Vol] 80 mg/dL Normal 70 - 110 mg/dL ADM SS Hematocrit (Bld) [Volume fraction] 25.2 % Low 40.0 - 52.0 % AH Workflow SS Hemoglobin (Bld) [Mass/Vol] 8.3 G/dL Low 13.0 - 17.5 G/dL AH Workflow SS Lymphocytes (Bld) [#/Vol] 2.5 103/mcL Normal 0.9 - 4.3 10^3/mcL AH Workflow SS Lymphocytes/100 WBC (Bld) 18.4 % Low 20.0 - 40.0 % AH Workflow SS MCH (RBC) [Entitic mass] 26.8 pg Low 27.0 - 33.0 pg AH Workflow SS MCHC 32.9 G/dL Normal 32.0 - 36.0 G/dL AH Workflow SS MCV (RBC) [Entitic vol] 81.3 fL Normal 81.0 - 100.0 fL AH Workflow SS Monocytes (Bld) [#/Vol] 0.5 103/mcL Normal 0.1 - 1.4 10^3/mcL AH Workflow SS Monocytes/100 WBC (Bld) 3.4 % Normal 2.0 - 13.0 % AH Workflow SS Neutrophils (Bld) [#/Vol] 10.8 103/mcL High 2.3 - 8.1 10^3/mcL AH Workflow SS Neutrophils/100 WBC (Bld) 77.5 % High 50.0 - 75.0 % AH Workflow SS Platelet mean volume (Bld) [Entitic vol] 9.2 fL Normal 6.4 - 10.5 fL AH Workflow SS Platelets (Bld) [#/Vol] 345 103/mcL Normal 150 - 450 10^3/mcL AH Workflow SS Potassium [Moles/Vol] 4.6 mmol/L Normal 3.5 - 5.0 mEq/L AH ADM SS RBC (Bld) [#/Vol] 3.09 106/mcL Low 4.50 - 6.00 10^6/mcL AH Workflow SS Sodium [Moles/Vol] 137 mmol/L Normal 136 - 145 mEq/L ADM SS Urea nitrogen [Mass/Vol] 10.0 mg/dL Normal 8.0 - 22.0 mg/dL ADM SS Urea nitrogen/Creatinine [Mass ratio] 12.8 ratio Normal 10.0 - 22.0 ratio AH ADM SS WBC (Bld) [#/Vol] 13.9 103/mcL High 4.5 - 10.8 10^3/mcL AH Workflow SS .Auto Diffon 05-05-2023 Basophil, Absolute 0.0 10 3/mcL Normal 0.0-0.3 [facility] ([place]) Comment on above: Performed By: #### B ALMA #### [address] [address] Basophils/100 WBC (Bld) 0.2 % Normal 0.0-2.5 A [facility] ([place]) Comment on above: Performed By: #### B ALMA #### [address] [address] Eosinophil, Absolute 0.2 10 3/mcL Normal 0.0-0.7 [facility] ([place]) Comment on above: Performed By: #### B ALMA #### [address] [address] Eosinophils/100 WBC (Bld) 0.9 % Normal 0.0-6.0 [facility] ([place]) Comment on above: Performed By: #### B ALMA #### [address] [address] Lymphocyte, Absolute 2.9 10 3/mcL Normal 0.9-4.3 [facility] ([place]) Comment on above: Performed By: #### B ALMA #### [address] [address] Lymphocytes/100 WBC (Bld) 17.6 % Low 20.0-40.0 [facility] ([place]) Comment on above: Performed By: #### B ALMA #### [address] [address] Monocyte, Absolute 0.7 10 3/mcL Normal 0.1-1.4 [facility] ([place]) Comment on above: Performed By: #### B ALMA #### [address] [address] Monocytes/100 WBC (Bld) 4.4 % Normal 2.0-13.0 [facility] ([place]) Comment on above: Performed By: #### B ALMA #### [address] [address] Neutrophils/100 WBC (Bld) 76.9 % High 50.0-75.0 [facility] ([place]) Comment on above: Performed By: #### B ALMA #### [address] [address] .GFRon 05-05-2023 GFR Non- >60 Normal [facility] ([place]) Comment on above: Result Comment: GFR Population mean for , Non- Americans Ages 20-29 = 116 mL/min/1.73 sq.m. Ages 30-39 = 107 mL/min/1.73 sq.m. Ages 40-49 = 99 mL/min/1.73 sq.m. Ages 50-59 = 93 mL/min/1.73 sq.m. Ages 60-69 = 85 mL/min/1.73 sq.m. Ages 70+ = 75 mL/min/1.73 sq.m. Chronic Kidney Disease: Less than 60 mL/min/1.73 square meters End Stage Renal Disease: Less than 15 mL/min/1.73 square meters Performed By: #### B ALMA #### [address] [address] GFR >[address] [facility] ([place]) Comment on above: Result Comment: GFR Population mean for , Non- Americans Ages 20-29 = 116 mL/min/1.73 sq.m. Ages 30-39 = 107 mL/min/1.73 sq.m. Ages 40-49 = 99 mL/min/1.73 sq.m. Ages 50-59 = 93 mL/min/1.73 sq.m. Ages 60-69 = 85 mL/min/1.73 sq.m. Ages 70+ = 75 mL/min/1.73 sq.m. Chronic Kidney Disease: Less than 60 mL/min/1.73 square meters End Stage Renal Disease: Less than 15 mL/min/1.73 square meters Performed By: #### B ALMA #### [address] [address] .NEUABSon 05-05-2023 Neutrophil, Absolute 12.8 10 3/mcL High 2.3-8.1 [facility] ([place]) Comment on above: Performed By: #### B ALMA #### [address] [address] CBCon 05-05-2023 Erythrocyte distribution width (RBC) [Ratio] 14.5 % Normal 11.5-15.5 [facility] ([place]) Comment on above: Performed By: #### C BC, GFR, BMP, ANEU, ADIFF #### [place] [address] Hematocrit (Bld) [Volume fraction] 25.7 % Low 40.0-52.0 [facility] ([place]) Comment on above: Performed By: #### C BC, GFR, BMP, ANEU, ADIFF #### [place] [address] Hgb 8.6 G/dL Low 13.0-17.5 [facility] ([place]) Comment on above: Performed By: #### C BC, GFR, BMP, ANEU, ADIFF #### [place] [address] MCH (RBC) [Entitic mass] 27.7 pg Normal 27.0-33.0 [facility] ([place]) Comment on above: Performed By: #### C BC, GFR, BMP, ANEU, ADIFF #### [place] [address] MCHC 33.7 G/dL Normal 32.0-36.0 [facility] ([place]) Comment on above: Performed By: #### C BC, GFR, BMP, ANEU, ADIFF #### [place] [address] MCV (RBC) [Entitic vol] 82.3 fL Normal 81.0-100.0 [facility] ([place]) Comment on above: Performed By: #### C BC, GFR, BMP, ANEU, ADIFF #### [place] [address] Platelet 292 10 3/mcL Normal 150-450 [facility] ([place]) Comment on above: Performed By: #### C BC, GFR, BMP, ANEU, ADIFF #### [address] [address] Platelet mean volume (Bld) [Entitic vol] 8.9 fL Normal 6.4-10.5 [facility] ([place]) Comment on above: Performed By: #### C BC, GFR, BMP, ANEU, ADIFF #### [place] [address] RBC 3.12 10 6/mcL Low 4.50-6.00 [facility] ([place]) Comment on above: Performed By: #### C BC, GFR, BMP, ANEU, ADIFF #### [place] [id number] WBC 16.7 10 3/mcL High 4.5-10.8 [facility] ([place]) Comment on above: Performed By: #### C BC, GFR, BMP, ANEU, ADIFF #### [place] [address] CMPon 05-05-2023 Albumin Level 1.8 G/dL Low 3.2-4.8 [facility] ([place] Comment on above: Performed By: #### B ALMA #### [place] [id number] Albumin/Globulin [Mass ratio] 0.4 {ratio} Low 0.9-1.6 [facility] ([place]) Comment on above: Performed By: #### B ALMA #### [place] [id number] ALP [Catalytic activity/Vol] 72 U/L Normal 38-126 [facility] ([place]) Comment on above: Performed By: #### B ALMA #### [place] [id number] ALT [Catalytic activity/Vol] 13 U/L Normal 12-55 [facility] ([place]) Comment on above: Performed By: #### B ALMA #### [place] [address] AST [Catalytic activity/Vol] 16 U/L Normal 8-34 [facility] ([place]) Comment on above: Performed By: #### B ALMA #### [place] [id number] Bili Total 0.20 mg/dL Normal 0.20-1.20 [facility] ([place]) Comment on above: Result Comment: Use of this assay is not recommended for patients undergoing treatment with eltrombopag due to the potential for falsely elevated results. Performed By: #### B ALMA #### [place] [id number] BUN/Creatinine Ratio 14.5 ratio Normal 10.0-22.0 [facility] ([place]) Comment on above: Performed By: #### B ALMA #### [place] [id number] Calcium [Mass/Vol] 7.8 mg/dL Low 8.7-10.4 [facility] ([place]) Comment on above: Performed By: #### B ALMA #### [place] [id number] Chloride [Moles/Vol] 109 mmol/L Normal 98-110 [facility] ([place]) Comment on above: Performed By: #### B ALMA #### [place] [id number] CO2 [Moles/Vol] 25 mmol/L Normal 22-32 [facility] ([place]) Comment on above: Performed By: #### B ALMA #### [place] [id number] Creatinine [Mass/Vol] 0.83 mg/dL Normal 0.60-1.40 [facility] ([place]) Comment on above: Performed By: #### B ALMA #### [place] [id number] Electrolyte Balance 5.0 mEq/L Normal 4.0-15.0 [facility] ([place]) Comment on above: Performed By: #### B ALMA #### [place] [id number] Globulin 4.2 G/dL High 1.5-3.8 [facility] ([place]) Comment on above: Performed By: #### B ALMA #### [address] [address] Glucose [Mass/Vol] 80 mg/dL Normal 70-110 [facility] ([place]) Comment on above: Performed By: #### B ALMA #### [address] [address] Potassium [Moles/Vol] 4.4 mmol/L Normal 3.5-5.0 [facility] ([place]) Comment on above: Performed By: #### B ALMA #### [address] [address] Sodium [Moles/Vol] 139 mmol/L Normal 136-145 [facility] ([place]) Comment on above: Performed By: #### B ALMA #### [address] [address] Total Protein 6.0 G/dL Normal 5.7-8.2 [facility] ([place]) Comment on above: Result Comment: No te - New Reference Range in effect 19 Performed By: #### B ALMA #### [address] [address] Urea nitrogen [Mass/Vol] 12.0 mg/dL Normal 8.0-22.0 [facility] ([place]) Comment on above: Performed By: #### B ALMA #### [address] [address] LABORATORYOrdered By: SYSTEM SYSTEM on 05-05-2023 Albumin BCP dye [Mass/Vol] 1.8 G/dL Low 3.2 - 4.8 G/dL ADM SS Albumin/Globulin [Mass ratio] 0.4 {ratio} Low 0.9 - 1.6 ratio AH ADM SS ALP [Catalytic activity/Vol] 72 U/L Normal 38 - 126 U/L ADM SS ALT No additional P-5'-P [Catalytic activity/Vol] 13 U/L Normal 12 - 55 U/L ADM SS AST [Catalytic activity/Vol] 16 U/L Normal 8 - 34 U/L ADM SS Basophils (Bld) [#/Vol] 0.0 103/mcL Normal 0.0 - 0.3 10^3/mcL AH Workflow SS Basophils/100 WBC (Bld) 0.2 % Normal 0.0 - 2.5 % Workflow SS Bilirubin [Mass/Vol] 0.20 mg/dL Normal 0.20 - 1.20 mg/dL ADM SS Comment on above: Interpretive Data: U se of this assay is not recommended for patients undergoing treatment with eltrombopag due to the potential for falsely elevated results. Calcium [Mass/Vol] 7.8 mg/dL Low 8.7 - 10. 4 mg/dL ADM SS Chloride [Moles/Vol] 109 mmol/L Normal 98 - 11 0 mEq/L ADM SS CO2 [Moles/Vol] 25 mmol/L Normal 22 - 32 mEq/L ADM SS Creatinine [Mass/Vol] 0.83 mg/dL Normal 0.60 - 1.40 mg/dL ADM SS Electrolyte Balance 5.0 mEq/L Normal 4.0 - 15 .0 mEq/L ADM SS Eosinophils (Bld) [#/Vol] 0.2 103/mcL Normal 0.0 - 0.7 10^3/mcL Workflow SS Eosinophils/100 WBC (Bld) 0.9 % Normal 0.0 - 6.0 % Workflow SS Erythrocyte distribution width (RBC) [Ratio] 14.5 % Normal 11.5 - 15.5 % Workflow SS GFR/1.73 sq M.predicted among blacks MDRD (S/P/Bld) [Vol rate/Area] ml/min/1.73sqm Invalid Interpretation Code Chemistry S Comment on above: Interpretive Data: GFR Population mean for , Non- Americans Ages 20-29 = 116 mL/min/1.73 sq.m. Ages 30-39 = 107 mL/min/1.73 sq.m. Ages 40-49 = 99 mL/min/1.73 sq.m. Ages 50-59 = 93 mL/min/1.73 sq.m. Ages 60-69 = 85 mL/min/1.73 sq.m. Ages 70+ = 75 mL/min/1.73 sq.m. Chronic Kidney Disease: Less than 60 mL/min/1.73 square meters End Stage Renal Disease: Less than 15 mL/min/1.73 square meters GFR/1.73 sq M.predicted among non-blacks MDRD (S/P/Bld) [Vol rate/Area] ml/min/1.73sqm Invalid Interpretation Code Chemistry S Comment on above: Interpretive Data: GFR Population mean for , Non- Americans Ages 20-29 = 116 mL/min/1.73 sq.m. Ages 30-39 = 107 mL/min/1.73 sq.m. Ages 40-49 = 99 mL/min/1.73 sq.m. Ages 50-59 = 93 mL/min/1.73 sq.m. Ages 60-69 = 85 mL/min/1.73 sq.m. Ages 70+ = 75 mL/min/1.73 sq.m. Chronic Kidney Disease: Less than 60 mL/min/1.73 square meters End Stage Renal Disease: Less than 15 mL/min/1.73 square meters Globulin 4.2 G/dL High 1.5 - 3.8 G/dL ADM SS Glucose [Mass/Vol] 80 mg/dL Normal 70 - 110 mg/dL ADM SS Hematocrit (Bld) [Volume fraction] 25.7 % Low 40.0 - 52.0 % AH Workflow SS Hemoglobin (Bld) [Mass/Vol] 8.6 G/dL Low 13.0 - 17.5 G/dL AH Workflow SS Lymphocytes (Bld) [#/Vol] 2.9 103/mcL Normal 0.9 - 4.3 10^3/mcL AH Workflow SS Lymphocytes/100 WBC (Bld) 17.6 % Low 20.0 - 40.0 % AH Workflow SS Magnesium [Mass/Vol] 2.0 mg/dL Normal 1.6 - 2 .4 mg/dL ADM SS MCH (RBC) [Entitic mass] 27.7 pg Normal 27.0 - 33.0 pg AH Workflow SS MCHC 33.7 G/dL Normal 32.0 - 36.0 G/dL AH Workflow SS MCV (RBC) [Entitic vol] 82.3 fL Normal 81.0 - 100.0 fL Workflow SS Monocytes (Bld) [#/Vol] 0.7 103/mcL Normal 0.1 - 1.4 10^3/mcL AH Workflow SS Monocytes/100 WBC (Bld) 4.4 % Normal 2.0 - 13.0 % AH Workflow SS Neutrophils (Bld) [#/Vol] 12.8 103/mcL High 2.3 - 8.1 10^3/mcL AH Workflow SS Neutrophils/100 WBC (Bld) 76.9 % High 50.0 - 75.0 % AH Workflow SS Platelet mean volume (Bld) [Entitic vol] 8.9 fL Normal 6.4 - 10.5 fL AH Workflow SS Platelets (Bld) [#/Vol] 292 103/mcL Normal 150 - 450 10^3/mcL AH Workflow SS Potassium [Moles/Vol] 4.4 mmol/L Normal 3.5 - 5.0 mEq/L AH ADM SS Protein [Mass/Vol] 6.0 G/dL Normal 5.7 - 8.2 G/dL AH ADM SS Comment on above: Interpretive Data: * *Note - New Reference Range in effect 19 RBC (Bld) [#/Vol] 3.12 106/mcL Low 4.50 - 6.00 10^6/mcL Workflow SS Sodium [Moles/Vol] 139 mmol/L Normal 136 - 145 mEq/L ADM SS Urea nitrogen [Mass/Vol] 12.0 mg/dL Normal 8.0 - 22.0 mg/dL ADM SS Urea nitrogen/Creatinine [Mass ratio] 14.5 ratio Normal 10.0 - 22.0 ratio ADM SS WBC (Bld) [#/Vol] 16.7 103/mcL High 4.5 - 10.8 10^3/mcL Workflow SS MGon 05-05-2023 Magnesium [Mass/Vol] 2.0 mg/dL Normal 1.6-2.4 [facility] ([place]) Comment on above: Performed By: #### B ALMA #### [place] [address] MRI SPINE CERVICAL W/ + W/O CONTRASTon 05-05-2023 MRI SPINE CERVICAL W/ + W/O CONTRAST ORIGINAL INDICATION:ORDERING SYSTEM PROVIDED HISTORY: Reason for Exam: MRSA bacteremia, back pain, drug use TECHNIQUE: MRI of the cervical spine was performed without followed by with the administration of intravenous contrast, according to standard protocol. COMPARISON: Knee previous cervical spine examinations. Correlated with CT chest 04/29/2023 FINDINGS: ALIGNMENT: The vertebral bodies are anatomically aligned. VERTEBRAE: No acute/recent fracture, significant chronic height loss, or focal osseous lesion. ENHANCEMENT: No evidence of an epidural abscess. DISCS: Mild disc height loss at C5-C6. CORD: No intramedullary pathologic signal. PARAVERTEBRAL SOFT TISSUES: No soft tissue abscess. EVALUATION OF INDIVIDUAL LEVELS DEMONSTRATES: C2-C3 through C7-T1: No disc herniation, central canal, or significant foraminal stenosis. ADDITIONAL COMMENTS: 6 mm cyst within the right nasopharynx likely reflecting a mucous retention cyst. IMPRESSION: No osteomyelitis, discitis, or epidural abscess. Interpreted by: Domingo Rordiguez MD Preliminary Report By: Domingo Rodriguez MD Electronically signed By Domingo Rodriguez MD Dictated Date: 05/05/2023 11:50:41 AM Prelim Date: 05/05/2023 12:13:20 PM Sign Date: 05/05/2023 12:13:20 PM Ordering Provider: RAVEN NOLAN [facility] ([place]) MRI SPINE THORACIC W/ CONTRA STon 05-05-2023 MRI SPINE THORACIC W/ CONTRAST ORIGINAL EXAMINATION: MR Thoracic Spine Without and With Contrast TECHNIQUE: Sagittal T2 and postcontrast fat saturation sagittal and axial images of the thoracic spine COMPARISON: Noncontrast MRI thoracic spine 05/03/2023, CT chest 04/29/2023 HISTORY: ORDERING SYSTEM PROVIDED HISTORY: Reason for Exam: Back pain and IV drug use FINDINGS: Alignment: A moderate upper thoracic rotary levoscoliosis is centered about the T3 vertebral body. Vertebral bodies: No acute/recent fracture, significant chronic height loss, or a focal osseous lesion. No evidence of osteomyelitis. Bone marrow: Normal. Discs: Mild disc height loss involving the upper thoracic spine. Spinal canal: No epidural abscess or hematoma. Spinal cord: No pathologic signal. The spinal cord is located in the right half of the canal at the upper thoracic level secondary to a moderate upper thoracic levoscoliosis. Paraspinal musculature: No paraspinal abscess or drainable fluid collection. Visualized chest and abdomen: Small bilateral pleural effusion and multiple pulmonary nodules some demonstrating cavitation as seen on the CT chest of reference. IMPRESSION: 1. No evidence of osteomyelitis, discitis or an epidural/soft tissue abscess. 2. Moderate upper thoracic rotary levoscoliosis. 3. Bilateral pleural effusions multiple pulmonary nodules. Refer to CT chest of 04/29/2023 for full details. Interpreted by: Domingo Rodriguez MD Preliminary Report By: Domingo Rodriguez MD Electronically signed By Domingo Rodriguez MD Dictated Date: 05/05/2023 12:13:32 PM Prelim Date: 05/05/2023 12:23:34 PM Sign Date: 05/05/2023 12:23:34 PM Ordering Provider: RAVEN Olvera [facility] ([place]) .Auto Diffon 05-04-2023 Basophil, Absolute 0.1 10 3/mcL Normal 0.0-0.3 [facility] ([place]) Comment on above: Performed By: #### A MINH, GFR, CBC, ADIFF, BMP ####[address] [address] Basophils/100 WBC (Bld) 0.3 % Normal 0.0-2.5 A [facility] ([place]) Comment on above: Performed By: #### A MINH, GFR, CBC, ADIFF, BMP ####[address] [address] Eosinophil, Absolute 0.2 10 3/mcL Normal 0.0-0.7 [facility] ([place]) Comment on above: Performed By: #### A MINH, GFR, CBC, ADIFF, BMP ####[address] [address] Eosinophils/100 WBC (Bld) 0.9 % Normal 0.0-6.0 [facility] ([place]) Comment on above: Performed By: #### A MINH, GFR, CBC, ADIFF, BMP ####[address] [address] Lymphocyte, Absolute 2.4 10 3/mcL Normal 0.9-4.3 [facility] ([place]) Comment on above: Performed By: #### A MINH, GFR, CBC, ADIFF, BMP ####[address] [address] Lymphocytes/100 WBC (Bld) 13.7 % Low 20.0-40.0 [facility] ([place]) Comment on above: Performed By: #### A MINH, GFR, CBC, ADIFF, BMP ####[address] [address] Monocyte, Absolute 0.8 10 3/mcL Normal 0.1-1.4 [facility] ([place]) Comment on above: Performed By: #### A MINH, GFR, CBC, ADIFF, BMP ####[address] [address] Monocytes/100 WBC (Bld) 4.3 % Normal 2.0-13.0 A [facility] ([place]) Comment on above: Performed By: #### A MINH, GFR, CBC, ADIFF, BMP ####[address] [address] Neutrophils/100 WBC (Bld) 80.8 % High 50.0-75.0 [facility] ([place]) Comment on above: Performed By: #### A MINH, GFR, CBC, ADIFF, BMP ####[address] [address] .GFRon 05-04-2023 GFR Non- >60 Normal [facility] ([place]) Comment on above: Result Comment: GFR Population mean for , Non- Americans Ages 20-29 = 116 mL/min/1.73 sq.m. Ages 30-39 = 107 mL/min/1.73 sq.m. Ages 40-49 = 99 mL/min/1.73 sq.m. Ages 50-59 = 93 mL/min/1.73 sq.m. Ages 60-69 = 85 mL/min/1.73 sq.m. Ages 70+ = 75 mL/min/1.73 sq.m. Chronic Kidney Disease: Less than 60 mL/min/1.73 square meters End Stage Renal Disease: Less than 15 mL/min/1.73 square meters Performed By: #### A MINH, GFR, CBC, ADIFF, BMP ####[address] [address] GFR >[address] [facility] ([place]) Comment on above: Result Comment: GFR Population mean for , Non- Americans Ages 20-29 = 116 mL/min/1.73 sq.m. Ages 30-39 = 107 mL/min/1.73 sq.m. Ages 40-49 = 99 mL/min/1.73 sq.m. Ages 50-59 = 93 mL/min/1.73 sq.m. Ages 60-69 = 85 mL/min/1.73 sq.m. Ages 70+ = 75 mL/min/1.73 sq.m. Chronic Kidney Disease: Less than 60 mL/min/1.73 square meters End Stage Renal Disease: Less than 15 mL/min/1.73 square meters Performed By: #### A MINH, GFR, CBC, ADIFF, BMP ####[address] [address] .NEUABSon 05-04-2023 Neutrophil, Absolute 14.1 10 3/mcL High 2.3-8.1 A [facility] ([place]) Comment on above: Performed By: #### A MINH, GFR, CBC, ADIFF, BMP ####[address] [address] BMPon 05-04-2023 BUN/Creatinine Ratio 17.1 ratio Normal 10.0-22.0 [facility] ([place]) Comment on above: Performed By: #### A MINH, GFR, CBC, ADIFF, BMP ####[address] [address] Calcium [Mass/Vol] 7.7 mg/dL Low 8.7-10.4 [facility] ([place]) Comment on above: Performed By: #### A MINH, GFR, CBC, ADIFF, BMP ####[address] [address] Chloride [Moles/Vol] 110 mmol/L Normal 98-110 [facility] ([place]) Comment on above: Performed By: #### A MINH, GFR, CBC, ADIFF, BMP ####[address] [address] CO2 [Moles/Vol] 19 mmol/L Low 22-32 [facility] ([place]) Comment on above: Performed By: #### A MINH, GFR, CBC, ADIFF, BMP ####[address] [address] Creatinine [Mass/Vol] 0.76 mg/dL Normal 0.60-1.40 [facility] ([place]) Comment on above: Performed By: #### A MINH, GFR, CBC, ADIFF, BMP ####[place] [address] Electrolyte Balance 8.0 mEq/L Normal 4.0-15.0 [facility] ([place]) Comment on above: Performed By: #### A MINH, GFR, CBC, ADIFF, BMP ####[place] [address] Glucose [Mass/Vol] 87 mg/dL Normal 70-110 [facility] ([place]) Comment on above: Performed By: #### A MINH, GFR, CBC, ADIFF, BMP ####[place] [address] Potassium [Moles/Vol] 3.9 mmol/L Normal 3.5-5.0 [facility] ([place]) Comment on above: Performed By: #### A MINH, GFR, CBC, ADIFF, BMP ####[place] [address] Sodium [Moles/Vol] 137 mmol/L Normal 136-145 [facility] ([place]) Comment on above: Performed By: #### A MINH, GFR, CBC, ADIFF, BMP ####[place] [address] Urea nitrogen [Mass/Vol] 13.0 mg/dL Normal 8.0-22.0 [facility] ([place]) Comment on above: Performed By: #### A MINH, GFR, CBC, ADIFF, BMP ####[place] [address] CBCon 05-04-2023 Erythrocyte distribution width (RBC) [Ratio] 14.2 % Normal 11.5-15.5 [facility] ([place]) Comment on above: Performed By: #### A MINH, GFR, CBC, ADIFF, BMP ####[place] [address] Hematocrit (Bld) [Volume fraction] 27.1 % Low 40.0-52.0 [facility] ([place]) Comment on above: Performed By: #### A MINH, GFR, CBC, ADIFF, BMP ####[place] [address] Hgb 9.0 G/dL Low 13.0-17.5 [facility] ([place]) Comment on above: Performed By: #### A MINH, GFR, CBC, ADIFF, BMP ####[place] [address] MCH (RBC) [Entitic mass] 27.3 pg Normal 27.0-33.0 [facility] ([place]) Comment on above: Performed By: #### A MINH, GFR, CBC, ADIFF, BMP ####[place] [address] MCHC 33.4 G/dL Normal 32.0-36.0 [facility] ([place]) Comment on above: Performed By: #### A MINH, GFR, CBC, ADIFF, BMP ####[place] [address] MCV (RBC) [Entitic vol] 81.6 fL Normal 81.0-100.0 A [facility] ([place]) Comment on above: Performed By: #### A MINH, GFR, CBC, ADIFF, BMP ####[place] [address] Platelet 241 10 3/mcL Normal 150-450 [facility] ([place]) Comment on above: Performed By: #### A MINH, GFR, CBC, ADIFF, BMP ####[place] [address] Platelet mean volume (Bld) [Entitic vol] 9.6 fL Normal 6.4-10.5 [facility] ([place]) Comment on above: Performed By: #### A MINH, GFR, CBC, ADIFF, BMP ####[place] [address] RBC 3.32 10 6/mcL Low 4.50-6.00 [facility] ([place]) Comment on above: Performed By: #### A MINH, GFR, CBC, ADIFF, BMP ####[place] [address] WBC 17.4 10 3/mcL High 4.5-10.8 [facility] ([place]) Comment on above: Performed By: #### A MINH, GFR, CBC, ADIFF, BMP ####[place] [id number] [address] [place] [address] LABORATORYOrdered By: SYSTEM SYSTEM on 05-04-2023 Basophils (Bld) [#/Vol] 0.1 103/mcL Normal 0.0 - 0.3 10^3/mcL Workflow SS Basophils/100 WBC (Bld) 0.3 % Normal 0.0 - 2.5 % AH Workflow SS Calcium [Mass/Vol] 7.7 mg/dL Low 8.7 - 10. 4 mg/dL ADM SS Chloride [Moles/Vol] 110 mmol/L Normal 98 - 11 0 mEq/L ADM SS CO2 [Moles/Vol] 19 mmol/L Low 22 - 32 mEq/L ADM SS Creatinine [Mass/Vol] 0.76 mg/dL Normal 0.60 - 1.40 mg/dL ADM SS Electrolyte Balance 8.0 mEq/L Normal 4.0 - 15 .0 mEq/L ADM SS Eosinophils (Bld) [#/Vol] 0.2 103/mcL Normal 0.0 - 0.7 10^3/mcL AH Workflow SS Eosinophils/100 WBC (Bld) 0.9 % Normal 0.0 - 6.0 % AH Workflow SS Erythrocyte distribution width (RBC) [Ratio] 14.2 % Normal 11.5 - 15.5 % AH Workflow SS GFR/1.73 sq M.predicted among blacks MDRD (S/P/Bld) [Vol rate/Area] ml/min/1.73sqm Invalid Interpretation Code Chemistry S Comment on above: Interpretive Data: GFR Population mean for , Non- Americans Ages 20-29 = 116 mL/min/1.73 sq.m. Ages 30-39 = 107 mL/min/1.73 sq.m. Ages 40-49 = 99 mL/min/1.73 sq.m. Ages 50-59 = 93 mL/min/1.73 sq.m. Ages 60-69 = 85 mL/min/1.73 sq.m. Ages 70+ = 75 mL/min/1.73 sq.m. Chronic Kidney Disease: Less than 60 mL/min/1.73 square meters End Stage Renal Disease: Less than 15 mL/min/1.73 square meters GFR/1.73 sq M.predicted among non-blacks MDRD (S/P/Bld) [Vol rate/Area] ml/min/1.73sqm Invalid Interpretation Code Chemistry S Comment on above: Interpretive Data: GFR Population mean for , Non- Americans Ages 20-29 = 116 mL/min/1.73 sq.m. Ages 30-39 = 107 mL/min/1.73 sq.m. Ages 40-49 = 99 mL/min/1.73 sq.m. Ages 50-59 = 93 mL/min/1.73 sq.m. Ages 60-69 = 85 mL/min/1.73 sq.m. Ages 70+ = 75 mL/min/1.73 sq.m. Chronic Kidney Disease: Less than 60 mL/min/1.73 square meters End Stage Renal Disease: Less than 15 mL/min/1.73 square meters Glucose [Mass/Vol] 87 mg/dL Normal 70 - 110 mg/dL ADM SS Hematocrit (Bld) [Volume fraction] 27.1 % Low 40.0 - 52.0 % AH Workflow SS Hemoglobin (Bld) [Mass/Vol] 9.0 G/dL Low 13.0 - 17.5 G/dL AH Workflow SS Lymphocytes (Bld) [#/Vol] 2.4 103/mcL Normal 0.9 - 4.3 10^3/mcL AH Workflow SS Lymphocytes/100 WBC (Bld) 13.7 % Low 20.0 - 40.0 % AH Workflow SS MCH (RBC) [Entitic mass] 27.3 pg Normal 27.0 - 33.0 pg AH Workflow SS MCHC 33.4 G/dL Normal 32.0 - 36.0 G/dL AH Workflow SS MCV (RBC) [Entitic vol] 81.6 fL Normal 81.0 - 100.0 fL AH Workflow SS Monocytes (Bld) [#/Vol] 0.8 103/mcL Normal 0.1 - 1.4 10^3/mcL AH Workflow SS Monocytes/100 WBC (Bld) 4.3 % Normal 2.0 - 13.0 % AH Workflow SS Neutrophils (Bld) [#/Vol] 14.1 103/mcL High 2.3 - 8.1 10^3/mcL AH Workflow SS Neutrophils/100 WBC (Bld) 80.8 % High 50.0 - 75.0 % AH Workflow SS Platelet mean volume (Bld) [Entitic vol] 9.6 fL Normal 6.4 - 10.5 fL AH Workflow SS Platelets (Bld) [#/Vol] 241 103/mcL Normal 150 - 450 10^3/mcL AH Workflow SS Potassium [Moles/Vol] 3.9 mmol/L Normal 3.5 - 5.0 mEq/L ADM SS RBC (Bld) [#/Vol] 3.32 106/mcL Low 4.50 - 6.00 10^6/mcL AH Workflow SS Sodium [Moles/Vol] 137 mmol/L Normal 136 - 145 mEq/L ADM SS Urea nitrogen [Mass/Vol] 13.0 mg/dL Normal 8.0 - 22.0 mg/dL ADM SS Urea nitrogen/Creatinine [Mass ratio] 17.1 ratio Normal 10.0 - 22.0 ratio ADM SS WBC (Bld) [#/Vol] 17.4 103/mcL High 4.5 - 10.8 10^3/mcL Workflow SS .Auto Diffon 05-03-2023 Basophil, Absolute 0.1 10 3/mcL Normal 0.0-0.3 [facility] ([place]) Comment on above: Performed By: #### C BC, ANEU, ADIFF, BMP, MG, GFR ####[address] [address] Basophils/100 WBC (Bld) 0.5 % Normal 0.0-2.5 A [facility] ([place]) Comment on above: Performed By: #### C BC, ANEU, ADIFF, BMP, MG, GFR ####[address] [address] Eosinophil, Absolute 0.1 10 3/mcL Normal 0.0-0.7 [facility] ([place]) Comment on above: Performed By: #### C BC, ANEU, ADIFF, BMP, MG, GFR ####[address] [address] Eosinophils/100 WBC (Bld) 0.5 % Normal 0.0-6.0 [facility] ([place]) Comment on above: Performed By: #### C BC, ANEU, ADIFF, BMP, MG, GFR ####[address] [address] Lymphocyte, Absolute 1.6 10 3/mcL Normal 0.9-4.3 [facility] ([place]) Comment on above: Performed By: #### C BC, ANEU, ADIFF, BMP, MG, GFR ####[address] [address] Lymphocytes/100 WBC (Bld) 8.3 % Low 20.0-40.0 [facility] ([place]) Comment on above: Performed By: #### C BC, ANEU, ADIFF, BMP, MG, GFR ####[address] [address] Monocyte, Absolute 0.7 10 3/mcL Normal 0.1-1.4 [facility] ([place]) Comment on above: Performed By: #### C BC, ANEU, ADIFF, BMP, MG, GFR ####[address] [address] Monocytes/100 WBC (Bld) 3.7 % Normal 2.0-13.0 [facility] ([place]) Comment on above: Performed By: #### C BC, ANEU, ADIFF, BMP, MG, GFR ####[address] [address] Neutrophils/100 WBC (Bld) 87.0 % High 50.0-75.0 [facility] ([place]) Comment on above: Performed By: #### C BC, ANEU, ADIFF, BMP, MG, GFR ####[address] [address] .GFRon 05-03-2023 GFR >[address] [facility] ([place]) Comment on above: Result Comment: GFR Population mean for , Non- Americans Ages 20-29 = 116 mL/min/1.73 sq.m. Ages 30-39 = 107 mL/min/1.73 sq.m. Ages 40-49 = 99 mL/min/1.73 sq.m. Ages 50-59 = 93 mL/min/1.73 sq.m. Ages 60-69 = 85 mL/min/1.73 sq.m. Ages 70+ = 75 mL/min/1.73 sq.m. Chronic Kidney Disease: Less than 60 mL/min/1.73 square meters End Stage Renal Disease: Less than 15 mL/min/1.73 square meters Performed By: #### C BC, ANEU, ADIFF, BMP, MG, GFR ####[address] [address] GFR Non- >60 Normal [facility] ([place]) Comment on above: Result Comment: GFR Population mean for , Non- Americans Ages 20-29 = 116 mL/min/1.73 sq.m. Ages 30-39 = 107 mL/min/1.73 sq.m. Ages 40-49 = 99 mL/min/1.73 sq.m. Ages 50-59 = 93 mL/min/1.73 sq.m. Ages 60-69 = 85 mL/min/1.73 sq.m. Ages 70+ = 75 mL/min/1.73 sq.m. Chronic Kidney Disease: Less than 60 mL/min/1.73 square meters End Stage Renal Disease: Less than 15 mL/min/1.73 square meters Performed By: #### C BC, ANEU, ADIFF, BMP, MG, GFR ####[place] [id number] GFR Non- >60 Normal [facility] ([place]) Comment on above: Result Comment: GFR Population mean for , Non- Americans Ages 20-29 = 116 mL/min/1.73 sq.m. Ages 30-39 = 107 mL/min/1.73 sq.m. Ages 40-49 = 99 mL/min/1.73 sq.m. Ages 50-59 = 93 mL/min/1.73 sq.m. Ages 60-69 = 85 mL/min/1.73 sq.m. Ages 70+ = 75 mL/min/1.73 sq.m. Chronic Kidney Disease: Less than 60 mL/min/1.73 square meters End Stage Renal Disease: Less than 15 mL/min/1.73 square meters Performed By: #### C BC, GFR, BMP, ANEU, ADIFF #### [facility] [address] [place], [place] [address] GFR >[address] [facility] ([place]) Comment on above: Result Comment: GFR Population mean for , Non- Americans Ages 20-29 = 116 mL/min/1.73 sq.m. Ages 30-39 = 107 mL/min/1.73 sq.m. Ages 40-49 = 99 mL/min/1.73 sq.m. Ages 50-59 = 93 mL/min/1.73 sq.m. Ages 60-69 = 85 mL/min/1.73 sq.m. Ages 70+ = 75 mL/min/1.73 sq.m. Chronic Kidney Disease: Less than 60 mL/min/1.73 square meters End Stage Renal Disease: Less than 15 mL/min/1.73 square meters Performed By: #### C BC, GFR, BMP, ANEU, ADIFF #### [address] [address] .NEUABSon 05-03-2023 Neutrophil, Absolute 16.6 10 3/mcL High 2.3-8.1 [facility] ([place]) Comment on above: Performed By: #### C BC, ANEU, ADIFF, BMP, MG, GFR ####[place] [address] BMPon 05-03-2023 BUN/Creatinine Ratio 20.5 ratio Normal 10.0-22.0 [facility] ([place]) Comment on above: Performed By: #### C BC, ANEU, ADIFF, BMP, MG, GFR ####[address] [address] Calcium [Mass/Vol] 7.5 mg/dL Low 8.7-10.4 [facility] ([place]) Comment on above: Performed By: #### C BC, ANEU, ADIFF, BMP, MG, GFR ####[address] [address] Chloride [Moles/Vol] 109 mmol/L Normal 98-110 [facility] ([place]) Comment on above: Performed By: #### C BC, ANEU, ADIFF, BMP, MG, GFR ####[place] [address] CO2 [Moles/Vol] 20 mmol/L Low 22-32 [facility] ([place]) Comment on above: Performed By: #### C BC, ANEU, ADIFF, BMP, MG, GFR ####[place] [address] Creatinine [Mass/Vol] 0.73 mg/dL Normal 0.60-1.40 [facility] ([place]) Comment on above: Performed By: #### C BC, ANEU, ADIFF, BMP, MG, GFR ####[place] [address] Electrolyte Balance 8.0 mEq/L Normal 4.0-15.0 [facility] ([place]) Comment on above: Performed By: #### C BC, ANEU, ADIFF, BMP, MG, GFR ####[place] [address] Glucose [Mass/Vol] 131 mg/dL High 70-110 [facility] ([place]) Comment on above: Performed By: #### C BC, ANEU, ADIFF, BMP, MG, GFR ####[place] [address] Potassium [Moles/Vol] 4.1 mmol/L Normal 3.5-5.0 [facility] ([place]) Comment on above: Performed By: #### C BC, ANEU, ADIFF, BMP, MG, GFR ####[place] [address] Sodium [Moles/Vol] 137 mmol/L Normal 136-145 [facility] ([place]) Comment on above: Performed By: #### C BC, ANEU, ADIFF, BMP, MG, GFR ####[place] [address] Urea nitrogen [Mass/Vol] 15.0 mg/dL Normal 8.0-22.0 [facility] ([place]) Comment on above: Performed By: #### C BC, ANEU, ADIFF, BMP, MG, GFR ####[place] [address] CBCon 05-03-2023 Erythrocyte distribution width (RBC) [Ratio] 14.4 % Normal 11.5-15.5 [facility] ([place]) Comment on above: Performed By: #### C BC, ANEU, ADIFF, BMP, MG, GFR ####[place] [address] Hematocrit (Bld) [Volume fraction] 28.0 % Low 40.0-52.0 [facility] ([place]) Comment on above: Performed By: #### C BC, ANEU, ADIFF, BMP, MG, GFR ####[place] [address] Hgb 9.2 G/dL Low 13.0-17.5 [facility] ([place]) Comment on above: Performed By: #### C BC, ANEU, ADIFF, BMP, MG, GFR ####[place] [address] MCH (RBC) [Entitic mass] 26.7 pg Low 27.0-33.0 [facility] ([place]) Comment on above: Performed By: #### C BC, ANEU, ADIFF, BMP, MG, GFR ####[place] [address] MCHC 32.9 G/dL Normal 32.0-36.0 [facility] ([place]) Comment on above: Performed By: #### C BC, ANEU, ADIFF, BMP, MG, GFR ####[place] [address] MCV (RBC) [Entitic vol] 81.2 fL Normal 81.0-100.0 A [facility] ([place]) Comment on above: Performed By: #### C BC, ANEU, ADIFF, BMP, MG, GFR ####[place] [address] Platelet 226 10 3/mcL Normal 150-450 Formerly [facility], [facility] ([place]) Comment on above: Performed By: #### C BC, ANEU, ADIFF, BMP, MG, GFR ####[place] [address] Platelet mean volume (Bld) [Entitic vol] 9.4 fL Normal 6.4-10.5 Formerly [facility], [facility] ([place]) Comment on above: Performed By: #### C BC, ANEU, ADIFF, BMP, MG, GFR ####[address] [id number] RBC 3.44 10 6/mcL Low 4.50-6.00 Formerly [facility], [facility] ([place]) Comment on above: Performed By: #### C BC, ANEU, ADIFF, BMP, MG, GFR ####[address] [address] WBC 19.1 10 3/mcL High 4.5-10.8 Formerly [facility], [facility] ([place]) Comment on above: Performed By: #### C BC, ANEU, ADIFF, BMP, MG, GFR ####[address] [address] [address] CMPon 05-03-2023 Albumin Level 2.1 G/dL Low 3.2-4.8 [facility]ly [facility] ([place]) Comment on above: Order Comment: [place] [phone]. Venipuncture Tech did not answer. @05/02/2023 18:41:46 EST Performed By: #### C BC, GFR, BMP, ANEU, ADIFF #### [address] [address] Albumin/Globulin [Mass ratio] 0.5 {ratio} Low 0.9-1.6 [facility] ([place]) Comment on above: Order Comment: [place] [phone]. Venipuncture Tech did not answer. @05/02/2023 18:41:46 EST Performed By: #### C BC, GFR, BMP, ANEU, ADIFF #### [address] [address] ALP [Catalytic activity/Vol] 96 U/L Normal 38-126 [facility] ([place]) Comment on above: Order Comment: [place] [phone]. Venipuncture Tech did not answer. @05/02/2023 18:41:46 EST Performed By: #### C BC, GFR, BMP, ANEU, ADIFF #### [address] [address] ALT [Catalytic activity/Vol] 27 U/L Normal 12-55 [facility] ([place]) Comment on above: Order Comment: [place] [phone]. Venipuncture Tech did not answer. @05/02/2023 18:41:46 EST Performed By: #### C BC, GFR, BMP, ANEU, ADIFF #### [address] [address] AST [Catalytic activity/Vol] 21 U/L Normal 8-34 [facility] ([place]) Comment on above: Order Comment: [place] [address]. Venipuncture Tech did not answer. @05/02/2023 18:41:46 EST Performed By: #### C BC, GFR, BMP, ANEU, ADIFF #### [address] [address] Bili Total 0.40 mg/dL Normal 0.20-1.20 [facility] ([place]) Comment on above: Order Comment: [place] [address]. Venipuncture Tech did not answer. @05/02/2023 18:41:46 EST Result Comment: Use of this assay is not recommended for patients undergoing treatment with eltrombopag due to the potential for falsely elevated results. Performed By: #### C BC, GFR, BMP, ANEU, ADIFF #### [address] [address] BUN/Creatinine Ratio 21.3 ratio Normal 10.0-22.0 [facility] ([place]) Comment on above: Order Comment: [place] [phone]. Venipuncture Tech did not answer. @05/02/2023 18:41:46 EST Performed By: #### C BC, GFR, BMP, ANEU, ADIFF #### [address] [address] Calcium [Mass/Vol] 8.0 mg/dL Low 8.7-10.4 [facility] ([place]) Comment on above: Order Comment: [place] [address]. Venipuncture Tech did not answer. @05/02/2023 18:41:46 EST Performed By: #### C BC, GFR, BMP, ANEU, ADIFF #### [place] [address] Chloride [Moles/Vol] 108 mmol/L Normal 98-110 [facility] ([place]) Comment on above: Order Comment: [place] [address]. Venipuncture Tech did not answer. @05/02/2023 18:41:46 EST Performed By: #### C BC, GFR, BMP, ANEU, ADIFF #### [place] [address] CO2 [Moles/Vol] 21 mmol/L Low 22-32 [facility] ([place]) Comment on above: Order Comment: [place] [address]. Venipuncture Tech did not answer. @05/02/2023 18:41:46 EST Performed By: #### C BC, GFR, BMP, ANEU, ADIFF #### [place] [address] Creatinine [Mass/Vol] 0.94 mg/dL Normal 0.60-1.40 [facility] ([place]) Comment on above: Order Comment: [place] [address]. Venipuncture Tech did not answer. @05/02/2023 18:41:46 EST Performed By: #### C BC, GFR, BMP, ANEU, ADIFF #### [place] [address] Electrolyte Balance 8.0 mEq/L Normal 4.0-15.0 [facility]ly [facility] ([place]) Comment on above: Order Comment: [place] [address]. Venipuncture Tech did not answer. @05/02/2023 18:41:46 EST Performed By: #### C BC, GFR, BMP, ANEU, ADIFF #### [place] [address] Globulin 4.3 G/dL High 1.5-3.8 [facility] ([place]) Comment on above: Order Comment: [place] [address]. Venipuncture Tech did not answer. @05/02/2023 18:41:46 EST Performed By: #### C BC, GFR, BMP, ANEU, ADIFF #### [address] [address] Glucose [Mass/Vol] 117 mg/dL High 70-110 [facility] ([place]) Comment on above: Order Comment: [place] [address]. Venipuncture Tech did not answer. @05/02/2023 18:41:46 EST Performed By: #### C BC, GFR, BMP, ANEU, ADIFF #### [address] [address] Potassium [Moles/Vol] 4.0 mmol/L Normal 3.5-5.0 [facility] ([place]) Comment on above: Order Comment: [place] [address]. Venipuncture Tech did not answer. @05/02/2023 18:41:46 EST Performed By: #### C BC, GFR, BMP, ANEU, ADIFF #### [address] [address] Sodium [Moles/Vol] 137 mmol/L Normal 136-145 [facility] ([place]) Comment on above: Order Comment: [place] [address]. Venipuncture Tech did not answer. @05/02/2023 18:41:46 EST Performed By: #### C BC, GFR, BMP, ANEU, ADIFF #### [address] [address] Total Protein 6.4 G/dL Normal 5.7-8.2 [facility] ([place]) Comment on above: Order Comment: [place] [address]. Venipuncture Tech did not answer. @05/02/2023 18:41:46 EST Result Comment: No te - New Reference Range in effect 19 Performed By: #### C BC, GFR, BMP, ANEU, ADIFF #### [address] [address] Urea nitrogen [Mass/Vol] 20.0 mg/dL Normal 8.0-22.0 [facility] ([place]) Comment on above: Order Comment: [place] [address]. Venipuncture Tech did not answer. @05/02/2023 18:41:46 EST Performed By: #### C BC, GFR, BMP, ANEU, ADIFF #### [place] [address] HCQPCRon 05-03-2023 HCV log10 5.906 log10 IU/mL Normal [facility] ([place]) Comment on above: Performed By: #### C BC, GFR, BMP, ANEU, ADIFF #### [place] [address] HCV Test Info Comment Normal [facility] ([place]) Comment on above: Result Comment: The quantitative range of this assay is 15 IU/mL to 100 million IU/mL. Performed At: [facility] [id number] Javed Sparks MD Ph:[phone] Performed By: #### C BC, GFR, BMP, ANEU, ADIFF #### [place] [address] Hep C Qn 332519 IU/mL Normal [facility] ([place]) Comment on above: Performed By: #### C BC, GFR, BMP, ANEU, ADIFF #### [place] [address] LABORATORYOrdered By: SYSTEM SYSTEM on 05-03-2023 Magnesium [Mass/Vol] 2.0 mg/dL Normal 1.6 - 2 .4 mg/dL [facility] SS MGon 05-03-2023 Magnesium [Mass/Vol] 2.0 mg/dL Normal 1.6-2.4 [facility] ([place]) Comment on above: Performed By: #### C BC, ANEU, ADIFF, BMP, MG, GFR ####[place] [address] Magnesium [Mass/Vol] 2.0 mg/dL Normal 1.6-2.4 [facility] ([place]) Comment on above: Performed By: #### C BC, GFR, BMP, ANEU, ADIFF #### [place] [id number] MRI SPINE LUMBAR W/O CONTRAS Ton 05-03-2023 MRI SPINE LUMBAR W/O CONTRAST ORIGINAL HISTORY: Bacteremia, back pain, drug use COMPARISON: No TECHNIQUE: 1. Sagittal T1-weighted images. 2. Sagittal T2-weighted images with and without fat saturation. 3. Axial T1-weighted images. 4. Axial T2-weighted images. FINDINGS: The study is degraded by motion. There are 5 lumbar type vertebral bodies for the purpose of this dictation. There is straightening of the normal lumbar lordosis. The individual vertebral bodies are intact. Disc spaces are maintained. The spinal cord is only slightly visualized and poorly evaluated due to motion. There is no definite stenosis. There are no abnormal intra or extra-axial fluid collections. The paraspinous tissues are grossly unremarkable. IMPRESSION: Limited by motion, otherwise unremarkable. Interpreted by: Alphonso Schuler MD Preliminary Report By: Alphonso Schuler MD Electronically signed By Alphonso Schuler MD Dictated Date: 05/03/2023 2:37:38 PM Prelim Date: 05/03/2023 2:39:19 PM Sign Date: 05/03/2023 2:39:19 PM Ordering Provider: RAVEN NOLAN [facility] ([place]) MRI SPINE THORACIC W/O CONTR Ladi 05-03-2023 MRI SPINE THORACIC W/O CONTRAST ORIGINAL HISTORY: Bacteremia, back pain, drug use COMPARISON: Chest CT 4 days previously TECHNIQUE: 1. Sagittal T1-weighted images. 2. Sagittal T2-weighted images with and without fat saturation. 3. Axial T1-weighted images. 4. Axial T2-weighted images. FINDINGS: The study is limited by motion. There is mild left convex scoliosis of the thoracic spine. The individual vertebral bodies are intact. Disc spaces are maintained. There is no abnormal signal within the thoracic spinal cord. There is asymmetric epidural fluid in the left upper thoracic canal. There is mild displacement of the thecal sac to the right in the upper thoracic region. There is bilateral consolidation and there are small pleural effusions. IMPRESSION: Limited due to motion, but there is an apparent epidural abscess or hematoma in the upper thoracic canal, most prominently at the T2-T3 level. Bilateral consolidation and pleural effusions. Interpreted by: Alphonso Schuler MD Preliminary Report By: Alphonso Schuler MD Electronically signed By Alphonso Schuler MD Dictated Date: 05/03/2023 2:15:11 PM Prelim Date: 05/03/2023 2:22:19 PM Sign Date: 05/03/2023 2:22:19 PM Ordering Provider: RAVEN Olvera [facility] ([place]) .Auto Diffon 05-02-2023 Basophil, Absolute 0.1 10 3/mcL Normal 0.0-0.3 [facility] ([place]) Comment on above: Performed By: #### C BC, GFR, BMP, ANEU, ADIFF #### [address] [address] Basophils/100 WBC (Bld) 0.4 % Normal 0.0-2.5 [facility] ([place]) Comment on above: Performed By: #### C BC, GFR, BMP, ANEU, ADIFF #### [address] [address] Eosinophil, Absolute 0.1 10 3/mcL Normal 0.0-0.7 [facility] ([place]) Comment on above: Performed By: #### C BC, GFR, BMP, ANEU, ADIFF #### [address] [address] Eosinophils/100 WBC (Bld) 0.4 % Normal 0.0-6.0 [facility] ([place]) Comment on above: Performed By: #### C BC, GFR, BMP, ANEU, ADIFF #### [address] [address] Lymphocyte, Absolute 1.7 10 3/mcL Normal 0.9-4.3 [facility] ([place]) Comment on above: Performed By: #### C BC, GFR, BMP, ANEU, ADIFF #### [address] [address] Lymphocytes/100 WBC (Bld) 10.3 % Low 20.0-40.0 [facility] ([place]) Comment on above: Performed By: #### C BC, GFR, BMP, ANEU, ADIFF #### [address] [address] Monocyte, Absolute 0.7 10 3/mcL Normal 0.1-1.4 [facility] ([place]) Comment on above: Performed By: #### C BC, GFR, BMP, ANEU, ADIFF #### [address] [address] Monocytes/100 WBC (Bld) 4.4 % Normal 2.0-13.0 [facility] ([place]) Comment on above: Performed By: #### C BC, GFR, BMP, ANEU, ADIFF #### [address] [address] Neutrophils/100 WBC (Bld) 84.5 % High 50.0-75.0 [facility] ([place]) Comment on above: Performed By: #### C BC, GFR, BMP, ANEU, ADIFF #### [address] [address] .GFRon 05-02-2023 GFR >[address] [facility] ([place]) Comment on above: Result Comment: GFR Population mean for , Non- Americans Ages 20-29 = 116 mL/min/1.73 sq.m. Ages 30-39 = 107 mL/min/1.73 sq.m. Ages 40-49 = 99 mL/min/1.73 sq.m. Ages 50-59 = 93 mL/min/1.73 sq.m. Ages 60-69 = 85 mL/min/1.73 sq.m. Ages 70+ = 75 mL/min/1.73 sq.m. Chronic Kidney Disease: Less than 60 mL/min/1.73 square meters End Stage Renal Disease: Less than 15 mL/min/1.73 square meters Performed By: #### C BC, GFR, BMP, ANEU, ADIFF #### [address] [address] GFR Non- >60 Normal [facility] ([place]) Comment on above: Result Comment: GFR Population mean for , Non- Americans Ages 20-29 = 116 mL/min/1.73 sq.m. Ages 30-39 = 107 mL/min/1.73 sq.m. Ages 40-49 = 99 mL/min/1.73 sq.m. Ages 50-59 = 93 mL/min/1.73 sq.m. Ages 60-69 = 85 mL/min/1.73 sq.m. Ages 70+ = 75 mL/min/1.73 sq.m. Chronic Kidney Disease: Less than 60 mL/min/1.73 square meters End Stage Renal Disease: Less than 15 mL/min/1.73 square meters Performed By: #### C BC, GFR, BMP, ANEU, ADIFF #### [address] [address] .NEUABSon 05-02-2023 Neutrophil, Absolute 13.5 10 3/mcL High 2.3-8.1 [facility] ([place]) Comment on above: Performed By: #### C BC, GFR, BMP, ANEU, ADIFF #### [place] [address] BUNon 05-02-2023 Urea nitrogen [Mass/Vol] 15.0 mg/dL Normal 8.0-22.0 [facility] ([place]) Comment on above: Performed By: #### C BC, GFR, BMP, ANEU, ADIFF #### [place] [address] CBCon 05-02-2023 Erythrocyte distribution width (RBC) [Ratio] 14.4 % Normal 11.5-15.5 [facility] ([place]) Comment on above: Performed By: #### C BC, GFR, BMP, ANEU, ADIFF #### [place] [address] Hematocrit (Bld) [Volume fraction] 27.9 % Low 40.0-52.0 [facility] ([place] Comment on above: Performed By: #### C BC, GFR, BMP, ANEU, ADIFF #### [place] [address] Hgb 9.0 G/dL Low 13.0-17.5 [facility] ([place] Comment on above: Performed By: #### C BC, GFR, BMP, ANEU, ADIFF #### [place] [address] MCH (RBC) [Entitic mass] 26.6 pg Low 27.0-33.0 [facility] ([place]) Comment on above: Performed By: #### C BC, GFR, BMP, ANEU, ADIFF #### [place] [address] MCHC 32.4 G/dL Normal 32.0-36.0 [facility] ([place] Comment on above: Performed By: #### C BC, GFR, BMP, ANEU, ADIFF #### [place] [address] MCV (RBC) [Entitic vol] 82.2 fL Normal 81.0-100.0 [facility] ([place]) Comment on above: Performed By: #### C BC, GFR, BMP, ANEU, ADIFF #### [place] [address] Platelet 159 10 3/mcL Normal 150-450 [facility] ([place]) Comment on above: Performed By: #### C BC, GFR, BMP, ANEU, ADIFF #### [place] [address] Platelet mean volume (Bld) [Entitic vol] 10.2 fL Normal 6.4-10.5 [facility] ([place] Comment on above: Performed By: #### C BC, GFR, BMP, ANEU, ADIFF #### [place] [address] RBC 3.40 10 6/mcL Low 4.50-6.00 [facility] ([place] Comment on above: Performed By: #### C BC, GFR, BMP, ANEU, ADIFF #### [place] [address] WBC 16.0 10 3/mcL High 4.5-10.8 [facility] ([place] Comment on above: Performed By: #### C BC, GFR, BMP, ANEU, ADIFF #### [place] [address] CREon 05-02-2023 Creatinine [Mass/Vol] 0.81 mg/dL Normal 0.60-1.40 [facility] ([place]) Comment on above: Performed By: #### C BC, GFR, BMP, ANEU, ADIFF #### [place] [address] HCQPCRon 05-02-2023 HCV log10 5.728 log10 IU/mL Normal [facility] ([place]) Comment on above: Performed By: #### C BC, GFR, BMP, ANEU, ADIFF #### [place] [id number] [address] [place] [address] HCV Test Info Comment Normal [facility] ([place]) Comment on above: Result Comment: The quantitative range of this assay is 15 IU/mL to 100 million IU/mL. Performed At: [address] [id number] Javed Sparks MD Ph:[phone] Performed By: #### C BC, GFR, BMP, ANEU, ADIFF #### [place] [address] Hep C Qn 282808 IU/mL Normal [facility] ([place] Comment on above: Performed By: #### C BC, GFR, BMP, ANEU, ADIFF #### [place] [address] LABORATORYOrdered By: SYSTEM SYSTEM on 05-02-2023 Albumin BCP dye [Mass/Vol] 2.1 G/dL Low 3.2 - 4.8 G/dL ADM SS Albumin/Globulin [Mass ratio] 0.5 {ratio} Low 0.9 - 1.6 ratio AH ADM SS ALP [Catalytic activity/Vol] 96 U/L Normal 38 - 126 U/L ADM SS ALT No additional P-5'-P [Catalytic activity/Vol] 27 U/L Normal 12 - 55 U/L ADM SS AST [Catalytic activity/Vol] 21 U/L Normal 8 - 34 U/L ADM SS Bilirubin [Mass/Vol] 0.40 mg/dL Normal 0.20 - 1.20 mg/dL AH ADM SS Comment on above: Interpretive Data: U se of this assay is not recommended for patients undergoing treatment with eltrombopag due to the potential for falsely elevated results. Globulin 4.3 G/dL High 1.5 - 3.8 G/dL AH ADM SS Magnesium [Mass/Vol] 2.0 mg/dL Normal 1.6 - 2 .4 mg/dL AH ADM SS Protein [Mass/Vol] 6.4 G/dL Normal 5.7 - 8.2 G/dL AH ADM SS Comment on above: Interpretive Data: * *Note - New Reference Range in effect 19 RPRon 05-02-2023 Reagin Ab RPR Ql (S) Non-Reactive Normal Non-Hot [place] cti ve [facility] ([place]) Comment on above: Result Comment: The RPR test is a non-treponemal assay useful as an aid in the diagnosis of primary and secondary syphilis. It converts to positive generally within 2 weeks after the appearance of a lesion. This test is also useful for monitoring response to antibiotic therapy. A positive RPR screening test will be followed by the FTA ABS test. False positive RPR tests may occur in 1) patients with underlying autoimmune disorders, 2) elderly patients, 3) , and 4) other conditions with abnormal serum globulins. Performed By: #### C BC, GFR, BMP, ANEU, ADIFF #### [address] [address] .Auto Diffon 05-01-2023 Basophil, Absolute 0.0 10 3/mcL Normal 0.0-0.3 [facility] ([place]) Comment on above: Performed By: #### C BC, GFR, BMP, ANEU, ADIFF #### [address] [address] Basophils/100 WBC (Bld) 0.2 % Normal 0.0-2.5 [facility] ([place]) Comment on above: Performed By: #### C BC, GFR, BMP, ANEU, ADIFF #### [address] [address] Eosinophil, Absolute 0.1 10 3/mcL Normal 0.0-0.7 [facility] ([place]) Comment on above: Performed By: #### C BC, GFR, BMP, ANEU, ADIFF #### [address] [address] Eosinophils/100 WBC (Bld) 0.5 % Normal 0.0-6.0 [facility] ([place]) Comment on above: Performed By: #### C BC, GFR, BMP, ANEU, ADIFF #### [address] [address] Lymphocyte, Absolute 1.7 10 3/mcL Normal 0.9-4.3 [facility] ([place]) Comment on above: Performed By: #### C BC, GFR, BMP, ANEU, ADIFF #### [address] [address] Lymphocytes/100 WBC (Bld) 14.9 % Low 20.0-40.0 [facility] ([place]) Comment on above: Performed By: #### C BC, GFR, BMP, ANEU, ADIFF #### [address] [address] Monocyte, Absolute 0.9 10 3/mcL Normal 0.1-1.4 [facility] ([place]) Comment on above: Performed By: #### C BC, GFR, BMP, ANEU, ADIFF #### [address] [address] Monocytes/100 WBC (Bld) 7.3 % Normal 2.0-13.0 [facility] ([place]) Comment on above: Performed By: #### C BC, GFR, BMP, ANEU, ADIFF #### [address] [address] Neutrophils/100 WBC (Bld) 77.1 % High 50.0-75.0 [facility] ([place]) Comment on above: Performed By: #### C BC, GFR, BMP, ANEU, ADIFF #### [address] [address] .GFRon 05-01-2023 GFR >[address] [facility] ([place]) Comment on above: Result Comment: GFR Population mean for , Non- Americans Ages 20-29 = 116 mL/min/1.73 sq.m. Ages 30-39 = 107 mL/min/1.73 sq.m. Ages 40-49 = 99 mL/min/1.73 sq.m. Ages 50-59 = 93 mL/min/1.73 sq.m. Ages 60-69 = 85 mL/min/1.73 sq.m. Ages 70+ = 75 mL/min/1.73 sq.m. Chronic Kidney Disease: Less than 60 mL/min/1.73 square meters End Stage Renal Disease: Less than 15 mL/min/1.73 square meters Performed By: #### C BC, GFR, BMP, ANEU, ADIFF #### [address] [address] GFR Non- >60 Normal [facility] ([place]) Comment on above: Result Comment: GFR Population mean for , Non- Americans Ages 20-29 = 116 mL/min/1.73 sq.m. Ages 30-39 = 107 mL/min/1.73 sq.m. Ages 40-49 = 99 mL/min/1.73 sq.m. Ages 50-59 = 93 mL/min/1.73 sq.m. Ages 60-69 = 85 mL/min/1.73 sq.m. Ages 70+ = 75 mL/min/1.73 sq.m. Chronic Kidney Disease: Less than 60 mL/min/1.73 square meters End Stage Renal Disease: Less than 15 mL/min/1.73 square meters Performed By: #### C BC, GFR, BMP, ANEU, ADIFF #### [address] [address] .NEUABSon 05-01-2023 Neutrophil, Absolute 9.1 10 3/mcL High 2.3-8.1 [facility] ([place]) Comment on above: Performed By: #### C BC, GFR, BMP, ANEU, ADIFF #### [address] [address] CBCon 05-01-2023 Erythrocyte distribution width (RBC) [Ratio] 14.2 % Normal 11.5-15.5 [facility] ([place]) Comment on above: Performed By: #### C BC, GFR, BMP, ANEU, ADIFF #### [address] [address] Hematocrit (Bld) [Volume fraction] 26.8 % Low 40.0-52.0 [facility] ([place] Comment on above: Performed By: #### C BC, GFR, BMP, ANEU, ADIFF #### [address] [address] Hgb 8.9 G/dL Low 13.0-17.5 [facility] ([place]) Comment on above: Performed By: #### C BC, GFR, BMP, ANEU, ADIFF #### [place] [address] MCH (RBC) [Entitic mass] 26.9 pg Low 27.0-33.0 [facility] ([place] Comment on above: Performed By: #### C BC, GFR, BMP, ANEU, ADIFF #### [place] [address] MCHC 33.3 G/dL Normal 32.0-36.0 [facility] ([place] Comment on above: Performed By: #### C BC, GFR, BMP, ANEU, ADIFF #### [place] [address] MCV (RBC) [Entitic vol] 80.7 fL Low 81.0-100.0 [facility] ([place] Comment on above: Performed By: #### C BC, GFR, BMP, ANEU, ADIFF #### [place] [address] Platelet 117 10 3/mcL Low 150-450 [facility] ([place] Comment on above: Performed By: #### C BC, GFR, BMP, ANEU, ADIFF #### [place] [address] Platelet mean volume (Bld) [Entitic vol] 10.5 fL Normal 6.4-10.5 [facility] ([place] Comment on above: Performed By: #### C BC, GFR, BMP, ANEU, ADIFF #### [place] [address] RBC 3.32 10 6/mcL Low 4.50-6.00 [facility] ([place] Comment on above: Performed By: #### C BC, GFR, BMP, ANEU, ADIFF #### [place] [address] WBC 11.7 10 3/mcL High 4.5-10.8 [facility] ([place] Comment on above: Performed By: #### C BC, GFR, BMP, ANEU, ADIFF #### [address] [address] CMPon 05-01-2023 Albumin Level 2.3 G/dL Low 3.2-4.8 [facility] ([place] Comment on above: Performed By: #### C BC, GFR, BMP, ANEU, ADIFF #### [place] [id number] Albumin/Globulin [Mass ratio] 0.7 {ratio} Low 0.9-1.6 [facility] ([place] Comment on above: Performed By: #### C BC, GFR, BMP, ANEU, ADIFF #### [place] [id number] ALP [Catalytic activity/Vol] 95 U/L Normal 38-126 [facility] ([place] Comment on above: Performed By: #### C BC, GFR, BMP, ANEU, ADIFF #### [place] [id number] ALT [Catalytic activity/Vol] 26 U/L Normal 12-55 [facility] ([place] Comment on above: Performed By: #### C BC, GFR, BMP, ANEU, ADIFF #### [place] [id number] AST [Catalytic activity/Vol] 19 U/L Normal 8-34 [facility] ([place] Comment on above: Performed By: #### C BC, GFR, BMP, ANEU, ADIFF #### [place] [id number] Bili Total 0.60 mg/dL Normal 0.20-1.20 [facility] ([place] Comment on above: Result Comment: Use of this assay is not recommended for patients undergoing treatment with eltrombopag due to the potential for falsely elevated results. Performed By: #### C BC, GFR, BMP, ANEU, ADIFF #### [place] [address] BUN/Creatinine Ratio 17.9 ratio Normal 10.0-22.0 [facility] ([place]) Comment on above: Performed By: #### C BC, GFR, BMP, ANEU, ADIFF #### [address] [address] Calcium [Mass/Vol] 8.0 mg/dL Low 8.7-10.4 [facility] ([place]) Comment on above: Performed By: #### C BC, GFR, BMP, ANEU, ADIFF #### [address] [address] Chloride [Moles/Vol] 111 mmol/L High 98-110 [facility] ([place]) Comment on above: Performed By: #### C BC, GFR, BMP, ANEU, ADIFF #### [address] [address] CO2 [Moles/Vol] 21 mmol/L Low 22-32 [facility] ([place]) Comment on above: Performed By: #### C BC, GFR, BMP, ANEU, ADIFF #### [address] [address] Creatinine [Mass/Vol] 0.84 mg/dL Normal 0.60-1.40 [facility] ([place]) Comment on above: Performed By: #### C BC, GFR, BMP, ANEU, ADIFF #### [address] [address] Electrolyte Balance 8.0 mEq/L Normal 4.0-15.0 [facility]ly [facility] ([place]) Comment on above: Performed By: #### C BC, GFR, BMP, ANEU, ADIFF #### [address] [address] Globulin 3.5 G/dL Normal 1.5-3.8 [facility] ([place]) Comment on above: Performed By: #### C BC, GFR, BMP, ANEU, ADIFF #### [address] [address] Glucose [Mass/Vol] 98 mg/dL Normal 70-110 [facility] ([place]) Comment on above: Performed By: #### C BC, GFR, BMP, ANEU, ADIFF #### [address] [address] Potassium [Moles/Vol] 3.8 mmol/L Normal 3.5-5.0 [facility] ([place]) Comment on above: Performed By: #### C BC, GFR, BMP, ANEU, ADIFF #### [facility] [address] [place] [address] Sodium [Moles/Vol] 140 mmol/L Normal 136-145 [facility] ([place]) Comment on above: Performed By: #### C BC, GFR, BMP, ANEU, ADIFF #### [facility] [address] [place] [address] Total Protein 5.8 G/dL Normal 5.7-8.2 [facility] ([place]) Comment on above: Result Comment: No te - New Reference Range in effect 19 Performed By: #### C BC, GFR, BMP, ANEU, ADIFF #### [facility] [address] [place] [address] Urea nitrogen [Mass/Vol] 15.0 mg/dL Normal 8.0-22.0 [facility] ([place]) Comment on above: Performed By: #### C BC, GFR, BMP, ANEU, ADIFF #### [facility] [address] [place] [address] LABORATORYOrdered By: SYSTEM SYSTEM on 05-01-2023 Albumin BCP dye [Mass/Vol] 2.3 G/dL Low 3.2 - 4.8 G/dL ADM SS Albumin/Globulin [Mass ratio] 0.7 {ratio} Low 0.9 - 1.6 ratio AH ADM SS ALP [Catalytic activity/Vol] 95 U/L Normal 38 - 126 U/L ADM SS ALT No additional P-5'-P [Catalytic activity/Vol] 26 U/L Normal 12 - 55 U/L AH ADM SS AST [Catalytic activity/Vol] 19 U/L Normal 8 - 34 U/L ADM SS Bilirubin [Mass/Vol] 0.60 mg/dL Normal 0.20 - 1.20 mg/dL AH ADM SS Comment on above: Interpretive Data: U se of this assay is not recommended for patients undergoing treatment with eltrombopag due to the potential for falsely elevated results. Globulin 3.5 G/dL Normal 1.5 - 3.8 G/dL ADM SS Protein [Mass/Vol] 5.8 G/dL Normal 5.7 - 8.2 G/dL AH ADM SS Comment on above: Interpretive Data: * *Note - New Reference Range in effect 19 MGon 05-01-2023 Magnesium [Mass/Vol] 1.9 mg/dL Normal 1.6-2.4 [facility] ([place]) Comment on above: Performed By: #### C BC, GFR, BMP, ANEU, ADIFF #### [place] [address] US ABDOMEN LIMITEDon 024 US ABDOMEN LIMITED ORIGINAL EXAMINATION: RIGHT UPPER QUADRANT ULTRASOUND 04/30/2023 1:04 pm COMPARISON: CT abdomen and pelvis on 04/29/2023 HISTORY: ORDERING SYSTEM PROVIDED HISTORY: Reason for Exam: gall bladder eval. See CT report FINDINGS: LIVER: The liver demonstrates normal echogenicity without evidence of intrahepatic biliary ductal dilatation. The liver is normal in size with long axis of 16 cm. BILIARY SYSTEM: The gallbladder is contracted. There is gallbladder wall thickening measuring 4 mm. There is also complex pericholecystic fluid that measures 15 mm in diameter that surrounds the gallbladder circumferentially. The patient is not tender in the region of the gallbladder. No gallstones are detected. Common bile duct is within normal limits measuring 2 mm. RIGHT KIDNEY: The right kidney is grossly unremarkable without evidence of hydronephrosis. The right kidney measures 11.1 x 4.4 x 5.4 cm PANCREAS: Visualized portions of the pancreas are unremarkable. OTHER: No evidence of right upper quadrant ascites. IMPRESSION: The gallbladder is contracted with gallbladder wall thickening and pericholecystic fluid. No gallstones are detected. The patient is not tender in the region of the gallbladder. Differential diagnosis includes acute or chronic cholecystitis. No biliary ductal dilatation. The liver and right kidney are unremarkable. RECOMMENDATIONS: Nuclear medicine hepatobiliary scan should be considered. Interpreted by: Willy Fernandes MD Preliminary Report By: Willy Fernandes MD Electronically signed By Willy Fernandes MD Dictated Date: 05/01/2023 12:21:00 AM Prelim Date: 05/01/2023 12:24:48 AM Sign Date: 05/01/2023 12:24:48 AM Ordering Provider: RAVEN Olvera [facility] ([place]) .Auto Diffon 04-30-2023 Basophil, Absolute 0.0 10 3/mcL Normal 0.0-0.3 [facility] ([place]) Comment on above: Performed By: #### C BC, GFR, BMP, ANEU, ADIFF #### [address] [address] Basophils/100 WBC (Bld) 0.3 % Normal 0.0-2.5 [facility] ([place]) Comment on above: Performed By: #### C BC, GFR, BMP, ANEU, ADIFF #### [address] [address] Eosinophil, Absolute 0.0 10 3/mcL Normal 0.0-0.7 [facility] ([place]) Comment on above: Performed By: #### C BC, GFR, BMP, ANEU, ADIFF #### [address] [address] Eosinophils/100 WBC (Bld) 0.2 % Normal 0.0-6.0 [facility] ([place]) Comment on above: Performed By: #### C BC, GFR, BMP, ANEU, ADIFF #### [address] [address] Lymphocyte, Absolute 2.0 10 3/mcL Normal 0.9-4.3 [facility] ([place]) Comment on above: Performed By: #### C BC, GFR, BMP, ANEU, ADIFF #### [address] [address] Lymphocytes/100 WBC (Bld) 12.0 % Low 20.0-40.0 [facility] ([place] Comment on above: Performed By: #### C BC, GFR, BMP, ANEU, ADIFF #### [address] [address] Monocyte, Absolute 1.0 10 3/mcL Normal 0.1-1.4 [facility] ([place]) Comment on above: Performed By: #### C BC, GFR, BMP, ANEU, ADIFF #### [address] [address] Monocytes/100 WBC (Bld) 6.0 % Normal 2.0-13.0 [facility] ([place]) Comment on above: Performed By: #### C BC, GFR, BMP, ANEU, ADIFF #### [address] [address] Neutrophils/100 WBC (Bld) 81.5 % High 50.0-75.0 [facility] ([place]) Comment on above: Performed By: #### C BC, GFR, BMP, ANEU, ADIFF #### [address] [address] .GFRon 04-30-2023 GFR >[address] [facility] ([place]) Comment on above: Result Comment: GFR Population mean for , Non- Americans Ages 20-29 = 116 mL/min/1.73 sq.m. Ages 30-39 = 107 mL/min/1.73 sq.m. Ages 40-49 = 99 mL/min/1.73 sq.m. Ages 50-59 = 93 mL/min/1.73 sq.m. Ages 60-69 = 85 mL/min/1.73 sq.m. Ages 70+ = 75 mL/min/1.73 sq.m. Chronic Kidney Disease: Less than 60 mL/min/1.73 square meters End Stage Renal Disease: Less than 15 mL/min/1.73 square meters Performed By: #### C BC, GFR, BMP, ANEU, ADIFF #### [address] [address] GFR Non- >60 Normal [facility] ([place]) Comment on above: Result Comment: GFR Population mean for , Non- Americans Ages 20-29 = 116 mL/min/1.73 sq.m. Ages 30-39 = 107 mL/min/1.73 sq.m. Ages 40-49 = 99 mL/min/1.73 sq.m. Ages 50-59 = 93 mL/min/1.73 sq.m. Ages 60-69 = 85 mL/min/1.73 sq.m. Ages 70+ = 75 mL/min/1.73 sq.m. Chronic Kidney Disease: Less than 60 mL/min/1.73 square meters End Stage Renal Disease: Less than 15 mL/min/1.73 square meters Performed By: #### C BC, GFR, BMP, ANEU, ADIFF #### [address] [address] .NEUABSon 04-30-2023 Neutrophil, Absolute 13.4 10 3/mcL High 2.3-8.1 [facility] ([place]) Comment on above: Performed By: #### C BC, GFR, BMP, ANEU, ADIFF #### [address] [address] APTTon 04-30-2023 aPTT Coag (Bld) [Time] 47.9 s High 25.0-35.0 [facility] ([place]) Comment on above: Result Comment: For Heparin anticoagulation therapy, the recommended therapeutic range is: 54-77 seconds (APTT Correlation with Anti-Xa therapeutic range of 0.3-0.7 units/ml). PLEASE REFERENCE THE PHARMACY PROTOCOL FOR DOSING. Heparin dose (APTT) Heparin IV Normal [facility] ([place]) aPTT Coag (Bld) [Time] 51.7 s High 25.0-35.0 [facility] ([place]) Comment on above: Result Comment: For Heparin anticoagulation therapy, the recommended therapeutic range is: 54-77 seconds (APTT Correlation with Anti-Xa therapeutic range of 0.3-0.7 units/ml). PLEASE REFERENCE THE PHARMACY PROTOCOL FOR DOSING. Heparin dose (APTT) Heparin IV Normal [facility] ([place]) CBCon 04-30-2023 Erythrocyte distribution width (RBC) [Ratio] 14.3 % Normal 11.5-15.5 [facility] ([place]) Comment on above: Performed By: #### C BC, GFR, BMP, ANEU, ADIFF #### [address] [address] Hematocrit (Bld) [Volume fraction] 32.1 % Low 40.0-52.0 [facility] ([place]) Comment on above: Performed By: #### C BC, GFR, BMP, ANEU, ADIFF #### [address] [address] Hgb 10.5 G/dL Low 13.0-17.5 [facility] ([place]) Comment on above: Performed By: #### C BC, GFR, BMP, ANEU, ADIFF #### [place] [address] MCH (RBC) [Entitic mass] 26.7 pg Low 27.0-33.0 [facility] ([place] Comment on above: Performed By: #### C BC, GFR, BMP, ANEU, ADIFF #### [place] [address] MCHC 32.8 G/dL Normal 32.0-36.0 [facility] ([place] Comment on above: Performed By: #### C BC, GFR, BMP, ANEU, ADIFF #### [place] [address] MCV (RBC) [Entitic vol] 81.4 fL Normal 81.0-100.0 [facility] ([place]) Comment on above: Performed By: #### C BC, GFR, BMP, ANEU, ADIFF #### [place] [address] Platelet 107 10 3/mcL Low 150-450 [facility] ([place]) Comment on above: Performed By: #### C BC, GFR, BMP, ANEU, ADIFF #### [place] [address] Platelet mean volume (Bld) [Entitic vol] 10.5 fL Normal 6.4-10.5 [facility] ([place] Comment on above: Performed By: #### C BC, GFR, BMP, ANEU, ADIFF #### [place] [address] RBC 3.94 10 6/mcL Low 4.50-6.00 [facility] ([place] Comment on above: Performed By: #### C BC, GFR, BMP, ANEU, ADIFF #### [place] [address] WBC 16.5 10 3/mcL High 4.5-10.8 [facility] ([place] Comment on above: Performed By: #### C BC, GFR, BMP, ANEU, ADIFF #### [address] [address] CMPon 04-30-2023 BUN/Creatinine Ratio 17.9 ratio Normal 10.0-22.0 [facility] ([place]) Comment on above: Performed By: #### C BC, GFR, BMP, ANEU, ADIFF #### [address] [address] Calcium [Mass/Vol] 8.3 mg/dL Low 8.7-10.4 [facility] ([place]) Comment on above: Performed By: #### C BC, GFR, BMP, ANEU, ADIFF #### [place] [id number] Chloride [Moles/Vol] 110 mmol/L Normal 98-110 [facility] ([place] Comment on above: Performed By: #### C BC, GFR, BMP, ANEU, ADIFF #### [place] [id number] CO2 [Moles/Vol] 21 mmol/L Low 22-32 [facility] ([place]) Comment on above: Performed By: #### C BC, GFR, BMP, ANEU, ADIFF #### [place] [id number] Creatinine [Mass/Vol] 0.78 mg/dL Normal 0.60-1.40 [facility] ([place]) Comment on above: Performed By: #### C BC, GFR, BMP, ANEU, ADIFF #### [place] [id number] Electrolyte Balance 8.0 mEq/L Normal 4.0-15.0 [facility] ([place]) Comment on above: Performed By: #### C BC, GFR, BMP, ANEU, ADIFF #### [address] [address] Glucose [Mass/Vol] 93 mg/dL Normal 70-110 [facility] ([place]) Comment on above: Performed By: #### C BC, GFR, BMP, ANEU, ADIFF #### [place] [id number] Potassium [Moles/Vol] 3.8 mmol/L Normal 3.5-5.0 [facility] ([place]) Comment on above: Performed By: #### C BC, GFR, BMP, ANEU, ADIFF #### [place] [id number] [place] [address] Sodium [Moles/Vol] 139 mmol/L Normal 136-145 [facility] ([place]) Comment on above: Performed By: #### C BC, GFR, BMP, ANEU, ADIFF #### [address] [address] Urea nitrogen [Mass/Vol] 14.0 mg/dL Normal 8.0-22.0 [facility] ([place] Comment on above: Performed By: #### C BC, GFR, BMP, ANEU, ADIFF #### [address] [address] [address] ABDOMEN/PELVIS W/CONTRAST on 04-30-2023 CT ABDOMEN/PELVIS W/CONTRAST ORIGINAL EXAMINATION: CT OF THE CHEST WITH CONTRAST; CT OF THE ABDOMEN AND PELVIS WITH CONTRAST 04/29/2023 10:18 pm TECHNIQUE: CT of the chest, abdomen, and pelvis was performed with the administration of intravenous contrast. Multiplanar reformatted images are provided for review. Automated exposure control, iterative reconstruction, and/or weight based adjustment of the mA/kV was utilized to reduce the radiation dose to as low as reasonably achievable.; CT of the abdomen and pelvis was performed with the administration of intravenous contrast. Multiplanar reformatted images are provided for review. Automated exposure control, iterative reconstruction, and/or weight based adjustment of the mA/kV was utilized to reduce the radiation dose to as low as reasonably achievable. COMPARISON: CT chest on 04/13/2022.. CT chest on 04/28/2023. CT abdomen and pelvis on 04/18/2022 HISTORY: ORDERING SYSTEM PROVIDED HISTORY: Reason for Exam: CHEST PAIN MID SOB Infection with bacteremia FINDINGS: Mediastinum: There is no mediastinal mass or lymph node enlargement. Mild cardiomegaly is stable. There is no pericardial fluid. The thoracic aorta is nonaneurysmal. The small left upper lobe pulmonary thromboembolism was better demonstrated on the CT angiogram of the chest on the prior day. No large pulmonary emboli are seen at this time. Main pulmonary artery is normal in size. Lungs/pleura: Small bilateral pleural effusions are new compared with CT scan on the prior day. There are numerous bilateral lung nodules. Some of which show cavitation. The largest right lung nodule is in the right lower lobe and measures 3.8 cm. Largest left lung nodule is 3.5 cm. 1.2 cm left hilar lymph node is present. Calcified lymph nodes are present in the right hilar region. There is no pneumothorax. Abdomen: The liver is enlarged with right lobe having a long axis of 20 cm. The spleen is also enlarged with AP diameter of 14.5 cm. Similar hepatosplenomegaly was seen on 04/18/2022. Gallbladder is contracted and there is pericholecystic fluid with mild gallbladder wall thickening. Bile ducts are not dilated. The pancreas, adrenal glands, and kidneys show no sign of abnormality. There is no intestinal obstruction or inflammation. No abnormal fluid or gas collection is seen in the abdomen. There is no retroperitoneal lymph node enlargement. Abdominal aorta is normal in diameter. Pelvis: The urinary bladder is normal in size. There is no pelvic mass or abnormal fluid collection. No lymph node enlargement is present. Soft Tissues/Bones: No acute findings. IMPRESSION: Numerous bilateral lung nodules, some of which show cavitation. Differential diagnosis includes septic emboli, metastatic disease, and vasculitis. New small bilateral pleural effusions. Stable mild cardiomegaly. Stable hepatosplenomegaly. Contracted gallbladder with pericholecystic fluid and mild gallbladder wall thickening. This could be due to hypoproteinemia or cholecystitis. Correlate clinically and consider gallbladder ultrasound for further evaluation. Interpreted by: Willy Fernandes MD Preliminary Report By: Willy Fernandes MD Electronically signed By Willy Fernandes MD Dictated Date: 04/30/2023 1:03:17 AM Prelim Date: 04/30/2023 1:15:47 AM Sign Date: 04/30/2023 1:15:47 AM Ordering Provider: RAVEN NOLAN [facility] ([place]) CT HEAD OR BRAIN W/ CONTRAST on 04-30-2023 CT HEAD OR BRAIN W/ CONTRAST ORIGINAL EXAMINATION: CT OF THE HEAD WITH CONTRAST 04/29/2023 10:19 pm TECHNIQUE: CT of the head/brain was performed with the administration of intravenous contrast. Multiplanar reformatted images are provided for review. Automated exposure control, iterative reconstruction, and/or weight based adjustment of the mA/kV was utilized to reduce the radiation dose to as low as reasonably achievable. COMPARISON: None. HISTORY: ORDERING SYSTEM PROVIDED HISTORY: Reason for Exam: HEADACHE GENERAL PAIN EVERYWHERE MRSA bacteremia, rule out embolic lesions FINDINGS: BRAIN/VENTRICLES: There is no acute intracranial hemorrhage, mass effect or midline shift. No abnormal extra-axial fluid collection. The sadler-white differentiation is maintained without evidence of an acute infarct. There is no evidence of hydrocephalus. ORBITS: The visualized portion of the orbits demonstrate no acute abnormality. SINUSES: Mild mucosal thickening in the right sphenoid sinus, some of the ethmoid air cells and opacification of right frontoethmoidal recess. Otherwise the visualized paranasal sinuses and mastoid air cells demonstrate no acute abnormality. SOFT TISSUES/SKULL: No acute abnormality of the visualized skull or soft tissues. IMPRESSION: No acute intracranial abnormality or abnormal enhancement. Interpreted by: Ronny Ramirez Preliminary Report By: Ronny Ramirez Electronically signed By Ronny Ramirez Dictated Date: 04/29/2023 10:47:19 PM Prelim Date: 04/29/2023 10:53:01 PM Sign Date: 04/29/2023 10:53:01 PM Ordering Provider: RAVEN NOLAN [facility] ([place]) CT THORAX W/ CONTRASTon 04-18 CT THORAX W/ CONTRAST ORIGINAL EXAMINATION: CT OF THE CHEST WITH CONTRAST; CT OF THE ABDOMEN AND PELVIS WITH CONTRAST 04/29/2023 10:18 pm TECHNIQUE: CT of the chest, abdomen, and pelvis was performed with the administration of intravenous contrast. Multiplanar reformatted images are provided for review. Automated exposure control, iterative reconstruction, and/or weight based adjustment of the mA/kV was utilized to reduce the radiation dose to as low as reasonably achievable.; CT of the abdomen and pelvis was performed with the administration of intravenous contrast. Multiplanar reformatted images are provided for review. Automated exposure control, iterative reconstruction, and/or weight based adjustment of the mA/kV was utilized to reduce the radiation dose to as low as reasonably achievable. COMPARISON: CT chest on 04/13/2022.. CT chest on 04/28/2023. CT abdomen and pelvis on 04/18/2022 HISTORY: ORDERING SYSTEM PROVIDED HISTORY: Reason for Exam: CHEST PAIN MID SOB Infection with bacteremia FINDINGS: Mediastinum: There is no mediastinal mass or lymph node enlargement. Mild cardiomegaly is stable. There is no pericardial fluid. The thoracic aorta is nonaneurysmal. The small left upper lobe pulmonary thromboembolism was better demonstrated on the CT angiogram of the chest on the prior day. No large pulmonary emboli are seen at this time. Main pulmonary artery is normal in size. Lungs/pleura: Small bilateral pleural effusions are new compared with CT scan on the prior day. There are numerous bilateral lung nodules. Some of which show cavitation. The largest right lung nodule is in the right lower lobe and measures 3.8 cm. Largest left lung nodule is 3.5 cm. 1.2 cm left hilar lymph node is present. Calcified lymph nodes are present in the right hilar region. There is no pneumothorax. Abdomen: The liver is enlarged with right lobe having a long axis of 20 cm. The spleen is also enlarged with AP diameter of 14.5 cm. Similar hepatosplenomegaly was seen on 04/18/2022. Gallbladder is contracted and there is pericholecystic fluid with mild gallbladder wall thickening. Bile ducts are not dilated. The pancreas, adrenal glands, and kidneys show no sign of abnormality. There is no intestinal obstruction or inflammation. No abnormal fluid or gas collection is seen in the abdomen. There is no retroperitoneal lymph node enlargement. Abdominal aorta is normal in diameter. Pelvis: The urinary bladder is normal in size. There is no pelvic mass or abnormal fluid collection. No lymph node enlargement is present. Soft Tissues/Bones: No acute findings. IMPRESSION: Numerous bilateral lung nodules, some of which show cavitation. Differential diagnosis includes septic emboli, metastatic disease, and vasculitis. New small bilateral pleural effusions. Stable mild cardiomegaly. Stable hepatosplenomegaly. Contracted gallbladder with pericholecystic fluid and mild gallbladder wall thickening. This could be due to hypoproteinemia or cholecystitis. Correlate clinically and consider gallbladder ultrasound for further evaluation. Interpreted by: Willy Fernandes MD Preliminary Report By: Willy Fernandes MD Electronically signed By Willy Fernandes MD Dictated Date: 04/30/2023 1:03:17 AM Prelim Date: 04/30/2023 1:15:47 AM Sign Date: 04/30/2023 1:15:47 AM Ordering Provider: TANYA WESTFALL [facility] ([place]) HEPACon 04-30-2023 Hep A IgM Ab Int [facility]) Comment on above: Result Comment: No s erological evidence of a current Hepatitis A infection. See Interp Performed By: #### C BC, GFR, BMP, ANEU, ADIFF #### [address] [address] Hep B Core IgM Ab Int Normal [facility] ([place]) Comment on above: Result Comment: Samp les with a value < 0.80 Index are considered nonreactive (negative) for IgM antibodies to hepatitis B core antigen. See Interp Performed By: #### C BC, GFR, BMP, ANEU, ADIFF #### [address] [address] Hep C Ab Reactive Abnormal Non-Reacti [facility] ([place]) Comment on above: Performed By: #### C BC, GFR, BMP, ANEU, ADIFF #### [address] [address] Hep C Ab Int [facility] ([place]) Comment on above: Result Comment: Reac tive: Samples with a value >/= 1.00 index are considered reactive for IgG antibodies to HCV. The presence of anti-HCV may be indicative of recent and/or past infection by Hepatitis C Virus. PATIENT MAY BE INFECTIOUS. PLEASE INFORM MUSHROOM PACKER. Supplemental testing for HCV RNA may detect the presence of active HCV infection. The HCV RT-PCR Quant (Non-Graph)assay (HCQPCR)has been ordered. This result is a reportable disease Infection Control has been notified. See Interp Performed By: #### C BC, GFR, BMP, ANEU, ADIFF #### [address] [address] Hep A IgM Ab Non-Reactive Normal Non-Reacti [facility] ([place]) Comment on above: Performed By: #### C BC, GFR, BMP, ANEU, ADIFF #### [address] [address] Hep B Core IgM Ab Non-Reactive Normal Non-Reacti [facility] ([place]) Comment on above: Performed By: #### C BC, GFR, BMP, ANEU, ADIFF #### [address] [address] Hep B Surf Ag Non-Reactive Normal Non-Reacti ve [facility] ([place]) Comment on above: Performed By: #### C BC, GFR, BMP, ANEU, ADIFF #### [address] [address] HFPon 04-30-2023 Bili Indirect 0.2 mg/dL Normal 0.1-10.0 [facility] ([place]) Comment on above: Performed By: #### C BC, GFR, BMP, ANEU, ADIFF #### [place] [address] Albumin Level 2.3 G/dL Low 3.2-4.8 [facility] ([place]) Comment on above: Performed By: #### C BC, GFR, BMP, ANEU, ADIFF #### [place] [id number] Albumin/Globulin [Mass ratio] 0.6 {ratio} Low 0.9-1.6 [facility] ([place]) Comment on above: Performed By: #### C BC, GFR, BMP, ANEU, ADIFF #### [address] [address] ALP [Catalytic activity/Vol] 125 U/L Normal 38-126 [facility] ([place]) Comment on above: Performed By: #### C BC, GFR, BMP, ANEU, ADIFF #### [address] [address] ALT [Catalytic activity/Vol] 38 U/L Normal 12-55 [facility] ([place]) Comment on above: Performed By: #### C BC, GFR, BMP, ANEU, ADIFF #### [address] [address] AST [Catalytic activity/Vol] 23 U/L Normal 8-34 Formerly [facility] ([place]) Comment on above: Performed By: #### C BC, GFR, BMP, ANEU, ADIFF #### [address] [address] Bili Direct 0.3 mg/dL Normal 0.0-0.4 Formerly [facility] ([place]) Comment on above: Result Comment: Use of this assay is not recommended for patients undergoing treatment with eltrombopag due to the potential for falsely elevated results. Performed By: #### C BC, GFR, BMP, ANEU, ADIFF #### [place] [address] Bili Total 0.50 mg/dL Normal 0.20-1.20 Formerly [facility] ([place]) Comment on above: Result Comment: Use of this assay is not recommended for patients undergoing treatment with eltrombopag due to the potential for falsely elevated results. Performed By: #### C BC, GFR, BMP, ANEU, ADIFF #### [place] [address] Globulin 3.7 G/dL Normal 1.5-3.8 [facility]ly [facility] ([place]) Comment on above: Performed By: #### C BC, GFR, BMP, ANEU, ADIFF #### [place] [address] Total Protein 6.0 G/dL Normal 5.7-8.2 Formerly [facility] ([place]) Comment on above: Result Comment: No te - New Reference Range in effect 19 Performed By: #### C BC, GFR, BMP, ANEU, ADIFF #### [place] [address] HIVon 04-30-2023 HIV 1/2 Ab Non-Reactive Normal Non-Reacti ve [facility]ly [facility] ([place]) Comment on above: Result Comment: Spec imen is negative for anti-HIV-1 and anti-HIV-2. Performed By: #### C BC, GFR, BMP, ANEU, ADIFF #### [place] [address] LABORATORYOrdered By: Chelsey merrill on 04-30-2023 LDose Vancomycin:(trough) See eMAR (04/30/23 11:07 AM) Normal AH Chemistry S LABORATORYOrdered By: SYSTEM SYSTEM on 04-30-2023 Vancomycin trough [Mass/Vol] 14.3 ug/mL Normal 5.0 - 20.0 mcg/mL AH ADM SS Bili Indirect 0.2 mg/dL Normal 0.1 - 10.0 mg/dL Chemistry S Bilirubin.conjugated [Mass/Vol] 0.3 mg/dL Normal 0.0 - 0.4 mg/dL ADM SS Comment on above: Interpretive Data: U se of this assay is not recommended for patients undergoing treatment with eltrombopag due to the potential for falsely elevated results. HAV IgM IA Ql Non-Reactive (04/30/23 8:46 AM) Normal Non-Reacti ve ADM SS HBV core IgM IA Ql Non-Reactive (04/30/23 8:46 AM) Normal Non-Reacti ve ADM SS HBV surface Ag IA Ql Non-Reactive (04/30/23 8:46 AM) Normal Non-Reacti ve ADM SS HIV 1/2 Ab Non-Reactive (04/30/23 8:46 AM) Normal Non-Reacti ve ADM SS Vancomycin trough [Mass/Vol] 13.5 ug/mL Normal 5.0 - 20.0 mcg/mL ADM LABORATORYOrdered By: Bethany Miles on 04-30-2023 aPTT Coag (Bld) [Time] 47.9 s High 25.0 - 35.0 seconds [facility] SS Comment on above: Interpretive Data: F or Heparin anticoagulation therapy, the recommended therapeutic range is: 54-77 seconds (APTT Correlation with Anti-Xa therapeutic range of 0.3-0.7 units/ml). PLEASE REFERENCE THE PHARMACY PROTOCOL FOR DOSING. Heparin dose (APTT) Heparin IV (04/30/23 8:46 AM) Normal Coagulation S LABORATORYOrdered By: Reba Sanchez on 04-30-2023 HAV IgM IA Ql No serological evide nce of a current Hepatitis A infection. Invalid Interpretation Code Chemistry S HBV core IgM IA Ql Samples with a value < 0.80 Index are considered nonreactive (negative) for IgM antibodies to hepatitis B core antigen. Invalid Interpretation Code Chemistry S HCV Ab IA Ql Reactive *ABN* (04/30/23 8:46 AM) Invalid Interpretation Code Non-Reacti ve ADM SS HCV Ab IA Ql Reactive: Samples wi th a value >/= 1.00 index are considered reactive for IgG antibodies to HCV. The presence of anti-HCV may be indicative of recent and/or past infection by Hepatitis C Virus. PATIENT MAY BE INFECTIOUS. PLEASE INFORM MUSHROOM PACKER. Supplemental testing for HCV RNA may detect the presence of active HCV infection. The HCV RT-PCR Quant (Non-Graph)assay (HCQPCR)has been ordered. This result is a reportable disease Infection Control has been notified. Invalid Interpretation Code Chemistry S HIV 1+2 Ab IA Ql Negative Invalid Interpretation Code Chemistry S LABORATORYOrdered By: Reed Zapata on 04-30-2023 Reagin Ab RPR Ql (S) Non-Reactive 14 (04/30/23 8:46 AM) Normal Non-Reacti ve Man Viro/Sero SS Comment on above: Interpretive Data: T he RPR test is a non-treponemal assay useful as an aid in the diagnosis of primary and secondary syphilis. It converts to positive generally within 2 weeks after the appearance of a lesion. This test is also useful for monitoring response to antibiotic therapy. A positive RPR screening test will be followed by the FTA ABS test. False positive RPR tests may occur in 1) patients with underlying autoimmune disorders, 2) elderly patients, 3) , and 4) other conditions with abnormal serum globulins. LABORATORYOrdered By: Postdeck P CONTRIBUTOR_SYSTEM on 04-30-2023 HCV log10 (LC) 5.906 1 Invalid Interpretation Code Sendouts HCV Test Info (LC) Comment Invalid Interpretation Code Sendouts Comment on above: Result Comment: The quantitative range of this assay is 15 IU/mL to 100 million IU/mL. Performed At: [facility] [id number] Javed Sparks MD Ph:[phone] Hep C Qn () [id number] Int unit/mL Invalid Interpretation Code Sendouts SS LABORATORYOrdered By: Aaliyah Finney on 04-30-2023 aPTT Coag (Bld) [Time] 51.7 s High 25.0 - 35.0 seconds [facility] SS Comment on above: Interpretive Data: F or Heparin anticoagulation therapy, the recommended therapeutic range is: 54-77 seconds (APTT Correlation with Anti-Xa therapeutic range of 0.3-0.7 units/ml). PLEASE REFERENCE THE PHARMACY PROTOCOL FOR DOSING. Heparin dose (APTT) Heparin IV (04/30/23 12:57 AM) Normal Coagulation S LABORATORYOrdered By: Lisa Riggs on 04-30-2023 LDose Vancomycin:(trough) Unknown (04/30/23 12:57 AM) Normal Chemistry S MGon 04-30-2023 Magnesium [Mass/Vol] 2.0 mg/dL Normal 1.6-2.4 [facility] ([place]) Comment on above: Performed By: #### C BC, GFR, BMP, ANEU, ADIFF #### [place] [address] No Panel Informationon 04-30 Microscopic examination of blood, culture Blood Culture: No Growth at 5 days. [facility] 04-30-2023 LDose Vancomycin:(trough) See eMAR Normal [facility]ly [facility] ([place]) Comment on above: Performed By: #### V ANCT ####[place] [address] Vancomycin Tr 14.3 mcg/mL Normal 5.0-20.0 Formerly [facility] ([place]) Comment on above: Performed By: #### V ANCT ####[place] [address] LDose Vancomycin:(trough) Unknown Normal [facility] ([place]) Comment on above: Performed By: #### V ANCT ####[place] [address] Vancomycin Tr 13.5 mcg/mL Normal 5.0-20.0 [facility]ly [facility] ([place]) Comment on above: Performed By: #### V ANCT ####[place] [address] .Auto Diffon 04-29-2023 Basophil, Absolute 0.0 10 3/mcL Normal 0.0-0.3 [facility] ([place]) Comment on above: Performed By: #### C BC, GFR, BMP, ANEU, ADIFF #### [place] [address] Basophils/100 WBC (Bld) 0.1 % Normal 0.0-2.5 A [facility] ([place]) Comment on above: Performed By: #### C BC, GFR, BMP, ANEU, ADIFF #### [address] [address] Eosinophil, Absolute 0.1 10 3/mcL Normal 0.0-0.7 [facility] ([place]) Comment on above: Performed By: #### C BC, GFR, BMP, ANEU, ADIFF #### [address] [address] Eosinophils/100 WBC (Bld) 0.3 % Normal 0.0-6.0 [facility] ([place]) Comment on above: Performed By: #### C BC, GFR, BMP, ANEU, ADIFF #### [address] [address] Lymphocyte, Absolute 1.0 10 3/mcL Normal 0.9-4.3 [facility] ([place]) Comment on above: Performed By: #### C BC, GFR, BMP, ANEU, ADIFF #### [address] [address] Lymphocytes/100 WBC (Bld) 6.2 % Low 20.0-40.0 [facility] ([place]) Comment on above: Performed By: #### C BC, GFR, BMP, ANEU, ADIFF #### [address] [address] Monocyte, Absolute 0.9 10 3/mcL Normal 0.1-1.4 [facility] ([place]) Comment on above: Performed By: #### C BC, GFR, BMP, ANEU, ADIFF #### [address] [address] Monocytes/100 WBC (Bld) 5.2 % Normal 2.0-13.0 [facility] ([place]) Comment on above: Performed By: #### C BC, GFR, BMP, ANEU, ADIFF #### [address] [address] Neutrophils/100 WBC (Bld) 88.2 % High 50.0-75.0 [facility] ([place]) Comment on above: Performed By: #### C BC, GFR, BMP, ANEU, ADIFF #### [address] [address] .GFRon 04-29-2023 GFR Non- >60 Normal Formerly [facility] ([place]) Comment on above: Result Comment: GFR Population mean for , Non- Americans Ages 20-29 = 116 mL/min/1.73 sq.m. Ages 30-39 = 107 mL/min/1.73 sq.m. Ages 40-49 = 99 mL/min/1.73 sq.m. Ages 50-59 = 93 mL/min/1.73 sq.m. Ages 60-69 = 85 mL/min/1.73 sq.m. Ages 70+ = 75 mL/min/1.73 sq.m. Chronic Kidney Disease: Less than 60 mL/min/1.73 square meters End Stage Renal Disease: Less than 15 mL/min/1.73 square meters Performed By: #### C BC, GFR, BMP, ANEU, ADIFF #### [place] [address] GFR >[address] [facility] ([place]) Comment on above: Result Comment: GFR Population mean for , Non- Americans Ages 20-29 = 116 mL/min/1.73 sq.m. Ages 30-39 = 107 mL/min/1.73 sq.m. Ages 40-49 = 99 mL/min/1.73 sq.m. Ages 50-59 = 93 mL/min/1.73 sq.m. Ages 60-69 = 85 mL/min/1.73 sq.m. Ages 70+ = 75 mL/min/1.73 sq.m. Chronic Kidney Disease: Less than 60 mL/min/1.73 square meters End Stage Renal Disease: Less than 15 mL/min/1.73 square meters Performed By: #### C BC, GFR, BMP, ANEU, ADIFF #### [place] [address] .NEUABSon 04-29-2023 Neutrophil, Absolute 14.7 10 3/mcL High 2.3-8.1 A [facility] ([place]) Comment on above: Performed By: #### C BC, GFR, BMP, ANEU, ADIFF #### [place] [id number] APTTon 04-29-2023 aPTT Coag (Bld) [Time] 41.3 s High 25.0-35.0 Au [facility] ([place]) Comment on above: Result Comment: For Heparin anticoagulation therapy, the recommended therapeutic range is: 54-77 seconds (APTT Correlation with Anti-Xa therapeutic range of 0.3-0.7 units/ml). PLEASE REFERENCE THE PHARMACY PROTOCOL FOR DOSING. Heparin dose (APTT) Heparin IV Normal [facility] ([place]) aPTT Coag (Bld) [Time] 38.5 s High 25.0-35.0 Au [facility] ([place]) Comment on above: Result Comment: For Heparin anticoagulation therapy, the recommended therapeutic range is: 54-77 seconds (APTT Correlation with Anti-Xa therapeutic range of 0.3-0.7 units/ml). PLEASE REFERENCE THE PHARMACY PROTOCOL FOR DOSING. Heparin dose (APTT) Heparin IV Normal [facility]) aPTT Coag (Bld) [Time] 56.2 s High 25.0-35.0 Au [facility]) Comment on above: Result Comment: For Heparin anticoagulation therapy, the recommended therapeutic range is: 54-77 seconds (APTT Correlation with Anti-Xa therapeutic range of 0.3-0.7 units/ml). PLEASE REFERENCE THE PHARMACY PROTOCOL FOR DOSING. Performed By: #### C BC, GFR, BMP, ANEU, ADIFF #### [address] [address] Heparin dose (APTT) Heparin IV Normal [facility] ([place]) Comment on above: Performed By: #### C BC, GFR, BMP, ANEU, ADIFF #### [address] [address] aPTT Coag (Bld) [Time] 36.9 s High 25.0-35.0 [facility] ([place]) Comment on above: Result Comment: For Heparin anticoagulation therapy, the recommended therapeutic range is: 54-77 seconds (APTT Correlation with Anti-Xa therapeutic range of 0.3-0.7 units/ml). PLEASE REFERENCE THE PHARMACY PROTOCOL FOR DOSING. Heparin dose (APTT) Heparin IV Normal [facility] ([place]) Florentino 04-29-2023 Acinetobacter kimberly-baumanii complex Not detected Normal Not Detected Formerly [facility] ([place]) Comment on above: Performed By: #### B ALMA #### [place] [address] Bacteroides fragilis Not detected Normal Not Detected [facility] ([place]) Comment on above: Performed By: #### B ALMA #### [place] [address] BCID Comment See Comment Normal [facility] ([place]) Comment on above: Result Comment: Anti microbial resistance can occur via multiple mechanisms. A Not Detected result for antimicrobial resistance gene(s) does not indicate antimicrobial susceptibility. Culture identification and susceptibility results to follow. If BCID panel was negative (Not Detected) for all targets, this does not exclude a blood stream infection. Our blood culture system detected growth. Culture identification and susceptibility testing (if appropriate) to follow. Performed By: #### B ALMA #### [place] [address] Julio albicans Not detected Normal Not Detected [facility] ([place]) Comment on above: Performed By: #### B ALMA #### [place] [address] Julio auris Not detected Normal Not Detected [facility] ([place] Comment on above: Performed By: #### B ALMA #### [place] [address] Julio glabrata Not detected Normal Not Detected [facility] ([place] Comment on above: Performed By: #### B ALMA #### [place] [address] Julio krusei Not detected Normal Not Detected [facility] ([place] Comment on above: Performed By: #### B ALMA #### [place] [id number] Julio parapsilosis Not detected Normal Not Detected [facility] ([place] Comment on above: Performed By: #### B ALMA #### [place] [address] Julio tropicalis Not detected Normal Not Detected [facility] ([place]) Comment on above: Performed By: #### B ALMA #### [facility] [address] [place], [place] [id number] Cryptococcus neoformans-gattii Not detected Normal Not Detected [facility] ([place]) Comment on above: Performed By: #### B ALMA #### [facility] [address] [place] [address] CTX-M (ESBL) Not Applicable Normal Not Detected [facility] ([place]) Comment on above: Performed By: #### B ALMA #### [place] [address] E. Coli Not detected Normal Not Detected [facility] ([place] Comment on above: Performed By: #### B ALMA #### [place] [address] Enterobacter cloacae Complex Not detected Normal Not Detected [facility] ([place] Comment on above: Performed By: #### B ALMA #### [place] [address] Enterobacterales Not detected Normal Not Detected [facility] ([place] Comment on above: Performed By: #### B ALMA #### [place] [address] Enterococcus faecalis Not detected Normal Not Detected [facility] ([place] Comment on above: Performed By: #### B ALMA #### [place] [address] Enterococcus faecium Not detected Normal Not Detected [facility] ([place] Comment on above: Performed By: #### B ALMA #### [place] [address] Haemophilus influenzae Not detected Normal Not Detected [facility] ([place] Comment on above: Performed By: #### B ALMA #### [place] [address] IMP (Carbapenemase) Not Applicable Normal Not Detected [facility] ([place] Comment on above: Performed By: #### B ALMA #### [place] [address] Klebsiella aerogenes Not detected Normal Not Detected [facility] ([place] Comment on above: Performed By: #### B ALMA #### [place] [address] Klebsiella oxytoca Not detected Normal Not Detected [facility] ([place] Comment on above: Performed By: #### B ALMA #### [place] [address] Klebsiella pneumoniae group Not detected Normal Not Detected [facility] ([place] Comment on above: Performed By: #### B ALMA #### [place] [address] KPC (Carbapenemase) Not Applicable Normal Not Detected [facility] ([place] Comment on above: Performed By: #### B ALMA #### [place] [address] Listeria monocytogenes Not detected Normal Not Detected [facility] ([place] Comment on above: Performed By: #### B ALMA #### [place] [address] MCR-1 (Colistin Resistance) Not Applicable Normal Not Detected [facility] ([place] Comment on above: Performed By: #### B ALMA #### [place] [address] Mec A/C Not Applicable Normal Not Detected [facility] ([place] Comment on above: Performed By: #### B ALMA #### [place] [address] Mec A/C-MREJ (MRSA) Detected Abnormal Not Detected [facility] ([place] Comment on above: Performed By: #### B ALMA #### [place] [address] NDM (Carbapenemase) Not Applicable Normal Not Detected [facility] ([place] Comment on above: Performed By: #### B ALMA #### [place] [phone] Neisseria meningitidis (Encapsalated) Not detected Normal Not Detected [facility] ([place] Comment on above: Performed By: #### B ALMA #### [place] [address] OXA-48 like (Carbapenemase) Not Applicable Normal Not Detected [facility] ([place] Comment on above: Performed By: #### B ALMA #### [address] [address] Proteus Not detected Normal Not Detected [facility] ([place] Comment on above: Performed By: #### B ALMA #### [facility] [address] [place] [address] Pseudomonas aeruginosa Not detected Normal Not Detected [facility] ([place] Comment on above: Performed By: #### B ALMA #### [address] [address] S. agalactiae Org specific cx Ql (Vag fld) Not detected Normal Not Detected [facility] ([place]) Comment on above: Performed By: #### B ALMA #### [address] [address] Salmonella species Not detected Normal Not Detected [facility] ([place] Comment on above: Performed By: #### B ALMA #### [address] [address] Serratia marcescens Not detected Normal Not Detected [facility] ([place] Comment on above: Performed By: #### B ALMA #### [address] [address] Staphylococcus Detected Abnormal Not Detected [facility] ([place] Comment on above: Performed By: #### B ALMA #### [address] [address] Staphylococcus aureus Detected Abnormal Not Detected [facility] ([place]) Comment on above: Result Comment: If S taphylococcus aureus is Detected, an Infectious Disease physician consult is required on identification. Performed By: #### B ALMA #### [address] [address] Staphylococcus epidermidis Not detected Normal Not Detected [facility] ([place]) Comment on above: Performed By: #### B ALMA #### [address] [address] Staphylococcus lugdunensis Not detected Normal Not Detected [facility] ([place] Comment on above: Performed By: #### B ALMA #### [address] [address] Stenotrophomonas maltophilia Not detected Normal Not Detected [facility] ([place] Comment on above: Performed By: #### B ALMA #### [place] [address] Streptococcus Not detected Normal Not Detected [facility] ([place] Comment on above: Performed By: #### B ALMA #### [place] [address] Streptococcus pneumoniae Not detected Normal Not Detected [facility] ([place] Comment on above: Performed By: #### B ALMA #### [place] [address] Streptococcus pyogenes Not detected Normal Not Detected [facility] ([place] Comment on above: Performed By: #### B ALMA #### [place] [address] Van A/B Not Applicable Normal Not Detected [facility] ([place] Comment on above: Performed By: #### B ALMA #### [place] [address] VIM (Carbapenemase) Not Applicable Normal Not Detected [facility] ([place] Comment on above: Performed By: #### B ALMA #### [place] [address] BMPon 04-29-2023 BUN/Creatinine Ratio 19.4 ratio Normal 10.0-22.0 [facility] ([place]) Comment on above: Order Comment: Routi ne for 0501 the morning of patient admission. Performed By: #### C BC, GFR, BMP, ANEU, ADIFF #### [place] [address] Calcium [Mass/Vol] 7.8 mg/dL Low 8.7-10.4 [facility] ([place]) Comment on above: Order Comment: Routi ne for 0501 the morning of patient admission. Performed By: #### C BC, GFR, BMP, ANEU, ADIFF #### [place] [address] Chloride [Moles/Vol] 112 mmol/L High 98-110 [facility] ([place]) Comment on above: Order Comment: Routi ne for 0501 the morning of patient admission. Performed By: #### C BC, GFR, BMP, ANEU, ADIFF #### [address] [address] CO2 [Moles/Vol] 21 mmol/L Low 22-32 [facility] ([place]) Comment on above: Order Comment: Routi ne for 0501 the morning of patient admission. Performed By: #### C BC, GFR, BMP, ANEU, ADIFF #### [place] [phone] Creatinine [Mass/Vol] 0.72 mg/dL Normal 0.60-1.40 [facility] ([place]) Comment on above: Order Comment: Routi ne for 0501 the morning of patient admission. Performed By: #### C BC, GFR, BMP, ANEU, ADIFF #### [place] [address] Electrolyte Balance 6.0 mEq/L Normal 4.0-15.0 [facility] ([place]) Comment on above: Order Comment: Routi ne for 0501 the morning of patient admission. Performed By: #### C BC, GFR, BMP, ANEU, ADIFF #### [place] [phone] Glucose [Mass/Vol] 161 mg/dL High 70-110 [facility] ([place]) Comment on above: Order Comment: Routi ne for 0501 the morning of patient admission. Performed By: #### C BC, GFR, BMP, ANEU, ADIFF #### [place] [phone] Potassium [Moles/Vol] 3.9 mmol/L Normal 3.5-5.0 [facility] ([place]) Comment on above: Order Comment: Routi ne for 0501 the morning of patient admission. Performed By: #### C BC, GFR, BMP, ANEU, ADIFF #### [place] [id number] Sodium [Moles/Vol] 139 mmol/L Normal 136-145 [facility] ([place]) Comment on above: Order Comment: Routi ne for 0501 the morning of patient admission. Performed By: #### C BC, GFR, BMP, ANEU, ADIFF #### [address] [address] Urea nitrogen [Mass/Vol] 14.0 mg/dL Normal 8.0-22.0 [facility] ([place] Comment on above: Order Comment: Routi ne for 0501 the morning of patient admission. Performed By: #### C BC, GFR, BMP, ANEU, ADIFF #### [place] [address] CBCon 04-29-2023 Erythrocyte distribution width (RBC) [Ratio] 14.2 % Normal 11.5-15.5 [facility] ([place] Comment on above: Order Comment: Routi ne for 0501 the morning of patient admission. Performed By: #### C BC, GFR, BMP, ANEU, ADIFF #### [place] [address] Hematocrit (Bld) [Volume fraction] 31.5 % Low 40.0-52.0 [facility] ([place] Comment on above: Order Comment: Routi ne for 0501 the morning of patient admission. Performed By: #### C BC, GFR, BMP, ANEU, ADIFF #### [place] [address] Hgb 10.5 G/dL Low 13.0-17.5 [facility] ([place] Comment on above: Order Comment: Routi ne for 0501 the morning of patient admission. Performed By: #### C BC, GFR, BMP, ANEU, ADIFF #### [place] [id number] MCH (RBC) [Entitic mass] 26.8 pg Low 27.0-33.0 Formerly [facility] ([place]) Comment on above: Order Comment: Routi ne for 0501 the morning of patient admission. Performed By: #### C BC, GFR, BMP, ANEU, ADIFF #### [place] [address] MCHC 33.3 G/dL Normal 32.0-36.0 Formerly [facility] ([place]) Comment on above: Order Comment: Routi ne for 0501 the morning of patient admission. Performed By: #### C BC, GFR, BMP, ANEU, ADIFF #### [place] [id number] MCV (RBC) [Entitic vol] 80.6 fL Low 81.0-100.0 A [facility] ([place]) Comment on above: Order Comment: Routi ne for 0501 the morning of patient admission. Performed By: #### C BC, GFR, BMP, ANEU, ADIFF #### [place] [id number] Platelet 86 10 3/mcL Low 150-450 [facility]ly [facility] ([place]) Comment on above: Order Comment: Routi ne for 0501 the morning of patient admission. Performed By: #### C BC, GFR, BMP, ANEU, ADIFF #### [place] [id number] Platelet mean volume (Bld) [Entitic vol] 10.3 fL Normal 6.4-10.5 [facility]ly [facility] ([place]) Comment on above: Order Comment: Routi ne for 0501 the morning of patient admission. Performed By: #### C BC, GFR, BMP, ANEU, ADIFF #### [place] [id number] RBC 3.90 10 6/mcL Low 4.50-6.00 Formerly [facility] ([place]) Comment on above: Order Comment: Routi ne for 0501 the morning of patient admission. Performed By: #### C BC, GFR, BMP, ANEU, ADIFF #### [place] [id number] WBC 16.7 10 3/mcL High 4.5-10.8 [facility]ly [facility] ([place]) Comment on above: Order Comment: Routi ne for 0501 the morning of patient admission. Performed By: #### C BC, GFR, BMP, ANEU, ADIFF #### [place] [address] LABORATORYOrdered By: Geraldo Coleman on 04-29-2023 aPTT Coag (Bld) [Time] 41.3 s High 25.0 - 35.0 seconds AH [facility] SS Comment on above: Interpretive Data: F or Heparin anticoagulation therapy, the recommended therapeutic range is: 54-77 seconds (APTT Correlation with Anti-Xa therapeutic range of 0.3-0.7 units/ml). PLEASE REFERENCE THE PHARMACY PROTOCOL FOR DOSING. Heparin dose (APTT) Heparin IV (04/29/23 4:23 PM) Normal Coagulation S LABORATORYOrdered By: LABCOR P CONTRIBUTOR_SYSTEM on 04-29-2023 HCV log10 (LC) 5.728 1 Invalid Interpretation Code Sendouts SS HCV Test Info () Comment Invalid Interpretation Code AH Sendouts SS Comment on above: Result Comment: The quantitative range of this assay is 15 IU/mL to 100 million IU/mL. Performed At: Lab[address] [id number] Javed Sparks MD Ph:[phone] Hep C Qn () [id number] Int unit/mL Invalid Interpretation Code Sendouts SS LABORATORYOrdered By: Marleen Leary on 04-29-2023 Lactate [Moles/Vol] 1.9 mmol/L Normal 0.2 - 2. 0 mmol/L Auto Chem SS Lactate [Moles/Vol] 2.3 mmol/L High 0.2 - 2. 0 mmol/L Auto Chem SS LABORATORYOrdered By: Pamela Jones on 04-29-2023 MRSA (PCR) Detected 1 *ABN* (04/29/23 12:40 AM) Invalid Interpretation Code Not Detected Auto Viro/Sero SS Comment on above: Result Comment: [place] [id number] MRSA PCR Int Staph aureus DNA detected by Real-Time Polymerase Chain Reaction (PCR). Organism viability can not be determined since free bacterial DNA may persist in the absence of viable organisms.As with all PCR based in vitro diagnostic tests, extremely low levels of target below the limit of detection of the assay may be detected, but results may not be reproducible, and the clinical significance unknown.Infection control will be notified. Invalid Interpretation Code Auto Viro/Sero SS LACon 04-29-2023 Lactic Acid Lvl 1.9 mmol/L Normal 0.2-2.0 [facility]ly [facility] ([place]) Comment on above: Order Comment: Order ed secondary to Lactic Acid result greater than or equal to 2.0 Performed By: #### L AC ####[place] [address] Lactic Acid Lvl 2.3 mmol/L High 0.2-2.0 Formerly [facility] ([place]) Comment on above: Performed By: #### C BC, GFR, BMP, ANEU, ADIFF #### [address] [address] MRSAPCRon 04-29-2023 MRSA (PCR) Detected Abnormal Not Detected [facility] ([place]) Comment on above: Order Comment: caryl salazar rn vrb 04/29/2023 02:21:56 EST dmm Result Comment: [place] [id number] Performed By: #### C BC, GFR, BMP, ANEU, ADIFF #### [facility] [address] [place] [id number] MRSA PCR Int Normal [facility] ([place]) Comment on above: Order Comment: caryl salazar rn vrb 04/29/2023 02:21:56 EST dmm Result Comment: Stap h aureus DNA detected by Real-Time Polymerase Chain Reaction (PCR). Organism viability can not be determined since free bacterial DNA may persist in the absence of viable organisms. As with all PCR based in vitro diagnostic tests, extremely low levels of target below the limit of detection of the assay may be detected, but results may not be reproducible, and the clinical significance unknown. Infection control will be notified. See Below Performed By: #### C BC, GFR, BMP, ANEU, ADIFF #### [address] [address] .GFRon 04-28-2023 GFR 92 ml/min/1.73sqm Normal [facility] ([place]) Comment on above: Result Comment: GFR Population mean for , Non- Americans Ages 20-29 = 116 mL/min/1.73 sq.m. Ages 30-39 = 107 mL/min/1.73 sq.m. Ages 40-49 = 99 mL/min/1.73 sq.m. Ages 50-59 = 93 mL/min/1.73 sq.m. Ages 60-69 = 85 mL/min/1.73 sq.m. Ages 70+ = 75 mL/min/1.73 sq.m. Chronic Kidney Disease: Less than 60 mL/min/1.73 square meters End Stage Renal Disease: Less than 15 mL/min/1.73 square meters Performed By: #### C AMANDA SERRANO, MORPH, GFR, TROPHS, DIFF, CMP, DIMER ####[address] [place], [place] [address] GFR Non- 76 ml/min/1.73sqm Normal [facility]ly [facility] ([place]) Comment on above: Result Comment: GFR Population mean for , Non- Americans Ages 20-29 = 116 mL/min/1.73 sq.m. Ages 30-39 = 107 mL/min/1.73 sq.m. Ages 40-49 = 99 mL/min/1.73 sq.m. Ages 50-59 = 93 mL/min/1.73 sq.m. Ages 60-69 = 85 mL/min/1.73 sq.m. Ages 70+ = 75 mL/min/1.73 sq.m. Chronic Kidney Disease: Less than 60 mL/min/1.73 square meters End Stage Renal Disease: Less than 15 mL/min/1.73 square meters Performed By: #### C AMANDA SERRANO, MORPH, GFR, TROPHS, DIFF, CMP, DIMER ####[address] [place], [place] [address] .MDWon 04-28-2023 Monocyte Distribution Width 33.19 High 0.00-20.00 Formerly [facility] ([place]) Comment on above: Result Comment: For adults in ED, MDW>20.0 may be associated with a higher risk of sepsis during the first 12hrs of hospital admission The predictive value of MDW for identifying sepsis in patients with hematological abnormalities has not been established Performed By: #### C AMANDA SERRANO, MORPH, GFR, TROPHS, DIFF, CMP, DIMER ####[address] [place], [place] [address] .Manual Diffon 04-28-2023 Bands 12.0 % High 0.0-5.0 Formerly [facility] ([place]) Comment on above: Performed By: #### C MD ZACHW, MORPH, GFR, TROPHS, DIFF, CMP, DIMER ####[address] [place], [place] [address] Basophil %, Manual 0.0 % Normal 0.0-2.5 [facility] ([place]) Comment on above: Performed By: #### C AMANDA SERRANO, MORPH, GFR, TROPHS, DIFF, CMP, DIMER ####[address] [place], [place] [address] Basophil, Abs Manual 0.0 10 3/mcL Normal 0.0-0.2 [facility] ([place]) Comment on above: Performed By: #### C AMANDA SERRANO, MORPH, GFR, TROPHS, DIFF, CMP, DIMER ####[address] [place], [place] [address] Eosinophil %, Manual 0.0 % Normal 0.0-7.0 [facility] ([place]) Comment on above: Performed By: #### C AMANDA SERRANO, MORPH, GFR, TROPHS, DIFF, CMP, DIMER ####[address] [place], [place] [address] Eosinophil, Abs Manual 0.0 10 3/mcL Normal 0.0-0.4 [facility] ([place]) Comment on above: Performed By: #### C AMANDA SERRANO, MORPH, GFR, TROPHS, DIFF, CMP, DIMER ####[address] [place], [place] [address] Lymphocyte %, Manual 5.0 % Low 10.0-50.0 [facility] ([place]) Comment on above: Performed By: #### AMANDA ELAINE, MORPH, GFR, TROPHS, DIFF, CMP, DIMER ####[address] [place], [place] [address] Lymphocyte, Abs Manual 1.2 10 3/mcL Normal 0.8-3.9 [facility] ([place]) Comment on above: Performed By: #### C AMANDA SERRANO, MORPH, GFR, TROPHS, DIFF, CMP, DIMER ####[address] [place], [place] [address] Monocyte %, Manual 0.0 % Low 1.7-13.0 [facility] ([place]) Comment on above: Performed By: #### AMANDA ELAINE, MORPH, GFR, TROPHS, DIFF, CMP, DIMER ####[address] [place], [place] [address] Monocyte, Abs Manual 0.0 10 3/mcL Low 0.2-1.0 [facility] ([place]) Comment on above: Performed By: #### C AMANDA SERRANO, MORPH, GFR, TROPHS, DIFF, CMP, DIMER ####[address] [place], [place] [address] Neutrophil %, Manual 83.0 % High 37.0-80.0 [facility] ([place]) Comment on above: Performed By: #### AMANDA ELAINE, MORPH, GFR, TROPHS, DIFF, CMP, DIMER ####[address] [place], [place] [address] Neutrophil, Abs Manual 20.2 10 3/mcL High 2.9-6.2 [facility] ([place]) Comment on above: Performed By: #### AMANDA ELAINE, MORPH, GFR, TROPHS, DIFF, CMP, DIMER ####[address] [place], [place] [address] Nucleated RBC 0.0 /100 WBC Normal [facility] ([place]) Comment on above: Performed By: #### AMANDA ELAINE, MORPH, GFR, TROPHS, DIFF, CMP, DIMER ####[address] [place], [place] [address] .Morphon 04-28-2023 Echinocytes 1+ Normal [facility] ([place]) Comment on above: Performed By: #### AMANDA ELAINE, MORPH, GFR, TROPHS, DIFF, CMP, DIMER ####[address] [place], [place] [address] Platelet Estimate Slt Decreased Normal [facility] ([place]) Comment on above: Performed By: #### AMANDA ELAINE, MORPH, GFR, TROPHS, DIFF, CMP, DIMER ####[address] [place], [place] [address] Vacuolated Neutrophils 1+ Normal [facility] ([place]) Comment on above: Performed By: #### AMANDA ELAINE, MORPH, GFR, TROPHS, DIFF, CMP, DIMER ####[address] [place], [place] [address] APTTon 04-28-2023 aPTT Coag (Bld) [Time] 44.7 s High 25.0-35.0 [facility] ([place]) Comment on above: Result Comment: For Heparin anticoagulation therapy, the recommended therapeutic range is: 50.6-87.4 seconds. Patients on heparin therapy may have an extreme result. Heparin dose (APTT) Unknown Normal [facility] ([place]) aPTT Coag (Bld) [Time] 34.0 s Normal 25.0-35.0 [facility] ([place]) Comment on above: Result Comment: For Heparin anticoagulation therapy, the recommended therapeutic range is: 50.6-87.4 seconds. Patients on heparin therapy may have an extreme result. Performed By: #### P RO ####[address] [place], [place] [address] Heparin dose (APTT) Unknown Normal [facility] ([place]) Comment on above: Performed By: #### P RO ####[address] [place], [place] [address] CBCon 04-28-2023 Erythrocyte distribution width (RBC) [Ratio] 14.1 % Normal 11.5-14.5 [facility] ([place]) Comment on above: Performed By: #### C AMANDA SERRANO, KURTIS, GFR, TROPHS, DIFF, CMP, DIMER ####[address] [place], [place] [address] Hematocrit (Bld) [Volume fraction] 39.0 % Low 42.0-52.0 [facility] ([place] Comment on above: Performed By: #### C AMANDA SERRANO, KURTIS, GFR, TROPHS, DIFF, CMP, DIMER ####[address] [place], [place] [address] Hgb 13.2 G/dL Low 14.0-18.0 [facility] ([place] Comment on above: Performed By: #### C AMANDA SERRANO, KURTIS, GFR, TROPHS, DIFF, CMP, DIMER ####[address] [place], [place] [address] MCH (RBC) [Entitic mass] 27.0 pg Normal 27.0-31.2 [facility] ([place] Comment on above: Performed By: #### AMANDA ELAINE, KURTIS, GFR, TROPHS, DIFF, CMP, DIMER ####[address] [place], [place] [address] MCHC 33.8 G/dL Normal 31.8-35.4 [facility] ([place] Comment on above: Performed By: #### AMANDA ELAINE, MORPH, GFR, TROPHS, DIFF, CMP, DIMER ####[address] [place], [place] [address] MCV (RBC) [Entitic vol] 79.9 fL Low 80.0-94.0 A [facility] ([place]) Comment on above: Performed By: #### AMANDA ELAINE, KURTIS, GFR, TROPHS, DIFF, CMP, DIMER ####[address] [place], [place] [address] Platelet 130 10 3/mcL Normal 130-400 [facility] ([place] Comment on above: Performed By: #### AMANDA ELAINE, KURTIS, GFR, TROPHS, DIFF, CMP, DIMER ####[address] [place], [place] [address] Platelet mean volume (Bld) [Entitic vol] 8.7 fL Normal 7.4-10.4 [facility] ([place] Comment on above: Performed By: #### AMANDA ELAINE, KURTIS, GFR, TROPHS, DIFF, CMP, DIMER ####[address] [place], [place] [address] RBC 4.88 10 6/mcL Normal 4.04-6.13 [facility] ([place] Comment on above: Performed By: #### AMANDA ELAINE, KURTIS, GFR, TROPHS, DIFF, CMP, DIMER ####[address] [place], [place] [address] WBC 24.3 10 3/mcL High 4.6-10.8 [facility] ([place] Comment on above: Performed By: #### AMANDA ELAINE, MORPH, GFR, TROPHS, DIFF, CMP, DIMER ####[address] [place], [place] [address] CMPon 04-28-2023 Albumin Level 2.6 G/dL Low 3.5-5.0 [facility] ([place] Comment on above: Performed By: #### C AMANDA SERRANO, MORPH, GFR, TROPHS, DIFF, CMP, DIMER ####[address] [place], [place] [address] Albumin/Globulin [Mass ratio] 0.5 {ratio} Low 1.1-2.5 [facility] ([place] Comment on above: Performed By: #### C AMANDA SERRANO, MORPH, GFR, TROPHS, DIFF, CMP, DIMER ####[address] [place], [place] [address] ALP [Catalytic activity/Vol] 176 U/L High 40-135 [facility] ([place] Comment on above: Performed By: #### C AMANDA SERRANO, MORPH, GFR, TROPHS, DIFF, CMP, DIMER ####[address] [place], [place] [address] ALT [Catalytic activity/Vol] 74 U/L High 16-63 [facility] ([place] Comment on above: Performed By: #### AMANDA ELAINE, MORPH, GFR, TROPHS, DIFF, CMP, DIMER ####[address] [place], [place] [address] AST [Catalytic activity/Vol] 43 U/L High 10-40 [facility] ([place] Comment on above: Performed By: #### C AMANDA SERRANO, MORPH, GFR, TROPHS, DIFF, CMP, DIMER ####[address] [place], [place] [address] Bili Total 0.6 mg/dL Normal 0.2-1.0 [facility] ([place]) Comment on above: Result Comment: Use of this assay is not recommended for patients undergoing treatment with eltrombopag due to the potential for falsely elevated results. Performed By: #### C AMANDA SERRANO, MORPH, GFR, TROPHS, DIFF, CMP, DIMER ####[address] [place], [place] [address] BUN/Creatinine Ratio 17 ratio Normal 7-27 [facility] ([place]) Comment on above: Performed By: #### AMANDA ELAINE, MORPH, GFR, TROPHS, DIFF, CMP, DIMER ####[address] [place], [place] [address] Calcium [Mass/Vol] 8.9 mg/dL Normal 8.4-10.2 [facility] ([place]) Comment on above: Performed By: #### AMANDA ELAINE, MORPH, GFR, TROPHS, DIFF, CMP, DIMER ####[address] [place], [place] [address] Chloride [Moles/Vol] 96 mmol/L Low 98-107 [facility] ([place]) Comment on above: Performed By: #### AMANDA ELAINE, KURTIS, GFR, TROPHS, DIFF, CMP, DIMER ####[address] [place], [place] [address] CO2 [Moles/Vol] 25 mmol/L Normal 22-29 [facility] ([place] Comment on above: Performed By: #### AMANDA ELAINE, KURTIS, GFR, TROPHS, DIFF, CMP, DIMER ####[address] [place], [place] [address] Creatinine [Mass/Vol] 1.15 mg/dL Normal 0.70-1.30 [facility] ([place]) Comment on above: Performed By: #### AMANDA ELAINE, KURTIS, GFR, TROPHS, DIFF, CMP, DIMER ####[address] [place], [place] [address] Electrolyte Balance 11.0 mEq/L Normal 4.0-15.0 [facility] ([place]) Comment on above: Performed By: #### AMANDA ELAINE, MORPH, GFR, TROPHS, DIFF, CMP, DIMER ####[address] [place], [place] [address] Globulin 5.1 G/dL Normal [facility] ([place] Comment on above: Performed By: #### AMANDA ELAINE, MORPH, GFR, TROPHS, DIFF, CMP, DIMER ####[address] [place], [place] [address] Glucose [Mass/Vol] 126 mg/dL High 70-105 [facility] ([place]) Comment on above: Performed By: #### AMANDA ELAINE, MORPH, GFR, TROPHS, DIFF, CMP, DIMER ####[address] [place], [place] [address] Potassium [Moles/Vol] 4.1 mmol/L Normal 3.5-5.1 [facility] ([place]) Comment on above: Performed By: #### AMANDA ELAINE, KURTIS, GFR, TROPHS, DIFF, CMP, DIMER ####[address] [place], [place] [address] Sodium [Moles/Vol] 132 mmol/L Low 136-145 [facility] ([place]) Comment on above: Performed By: #### AMANDA ELAINE, KURTIS, GFR, TROPHS, DIFF, CMP, DIMER ####[address] [place], [place] [address] Total Protein 7.7 G/dL Normal 6.4-8.2 [facility] ([place] Comment on above: Performed By: #### AMANDA ELAINE, KURTIS, GFR, TROPHS, DIFF, CMP, DIMER ####[address] [place], [place] [address] Urea nitrogen [Mass/Vol] 20 mg/dL High 7-18 [facility] ([place] Comment on above: Performed By: #### AMANDA ELAINE, KURTIS, GFR, TROPHS, DIFF, CMP, DIMER ####[address] [place], [place] [address] [id number] 04-28-2023 SARS-CoV-2 (COVID-19) RNA BRAD+probe Ql (Unsp spec) Negative Normal Negative [facility] ([place]) Comment on above: Performed By: #### C ZACH, GFR, BMP, ANEU, ADIFF #### [address] [address] SARS-CoV-2 (COVID-19) RNA BRAD+probe Ql (Unsp spec) Normal [facility] ([place]) Comment on above: Result Comment: Nega tive results do not preclude SARS-CoV-2 infection and should not be used as the sole basis for patient management decisions. Negative results must be combined with clinical observations, patient history, and epidemiological information. There is a risk of false negative values resulting from improperly collected, transported, or handled specimens. There is a risk of false negative values due to the presence of sequence variants in the pathogen targets of the assay, procedural errors, amplification inhibitors in specimens, or inadequate numbers of organisms for amplification. [employer] SARS-CoV-2 Assay is a Real-Time reverse-transcriptase polymerase chain reaction (RT-PCR) based qualitative in vitro diagnostic test intended for the qualitative detection of nucleic acid from the SARS-CoV-2 in nasopharyngeal swab specimens collected from individuals suspected of COVID-19 by their healthcare provider. Testing is limited to laboratories certified under the Clinical Laboratory Improvement Amendments of 1988 (CLIA), 42 U.S.C. ?263a, to perform moderate and high complexity tests. COVID-19 Int Performed By: #### C BC, GFR, BMP, ANEU, ADIFF #### [place] [address] CT ANGIOGRAPHY CHEST W/CONTR Ladi 04-28-2023 CT ANGIOGRAPHY CHEST W/CONTRAST ORIGINAL EXAMINATION: CTA OF THE CHEST 04/28/2023 9:22 am TECHNIQUE: CTA of the chest was performed after the administration of intravenous contrast. Multiplanar reformatted images are provided for review. MIP images are provided for review. Automated exposure control, iterative reconstruction, and/or weight based adjustment of the mA/kV was utilized to reduce the radiation dose to as low as reasonably achievable. COMPARISON: April 13, 2022 HISTORY: ORDERING SYSTEM PROVIDED HISTORY: Reason for Exam: chest pain; suspect PE FINDINGS: Paraseptal emphysema is evident especially at the apices, right greater than left. Multiple bilateral pulmonary nodules are identified and these are more numerous than on the prior exam. Multiple cavitary lesions are also identified. Some of these have resolved since the prior exam and some are new. Focal consolidation previously identified within the lingula laterally is no longer visible. No free pleural fluid is visible. Multiple calcified right hilar and subcarinal lymph nodes are present, similar in appearance to the previous study. Diffuse anasarca is also evident. This exam is positive for a single small segmental pulmonary embolism at the left upper lobe. No other pulmonary artery defects are identified. There are no indicators of right heart strain. No additional contributory abnormality seen. IMPRESSION: 1. Paraseptal emphysema, apical predominant. 2. Single segmental left upper lobe pulmonary embolism. No evidence for right heart strain. 3. Multiple bilateral pulmonary nodules, many of which are cavitated. Some previous nodules have resolved and some are new. Septic emboli and atypical infectious or inflammatory etiologies are the leading considerations. 4. Diffuse anasarca. Interpreted by: Mahsa Cole MD Preliminary Report By: Mahsa Cole MD Electronically signed By Mahsa Cole MD Dictated Date: 04/28/2023 9:27:28 AM Prelim Date: 04/28/2023 9:33:40 AM Sign Date: 04/28/2023 9:33:40 AM Ordering Provider: JONY Olvera [facility] ([place]) DIMERon 04-28-2023 D-Dimer 2831 ng/mL D-DU High 0-230 [facility] ([place]) Comment on above: Result Comment: Resu lts reported in D-DU ng/mL. Positive for D-dimer. A positive D-Dimer may occur in the following: DVT, PE, DIC, Trauma, Cancer, Sepsis, , Rheumatoid arthritis, Myocardial infarction and Cirrhosis. The presence of Rheumatoid Factor and HAMA (human mouse antibody) produces an overestimation of test results. The result of the D-Dimer test should be evaluated in the context of all the clinical and laboratory data available. In those instances where the laboratory result does not agree with the clinical evaluation, additional tests should be performed accordingly. If the D-Dimer result is used to exclude DVT or PE, the recommended cutoff value is less than 230 ng/mL. The D-Dimer result should not be used alone to rule in DVT/PE, but should be used in conjunction with a clinical pretest probability (PTP)assessment model to exclude venous thromboembolism (VTE) in outpatients suspected of deep venous thrombosis (DVT) and pulmonary embolism (PE). Performed By: #### C ZACH, W, MORPH, GFR, TROPHS, DIFF, CMP, DIMER ####[address] [place], [place] [address] FLURSVon 04-28-2023 Flu A PCR (AO) Negative Normal Negative [facility] ([place]) Comment on above: Result Comment: Posi tive Results: Positive Flu A/B or RSV for by PCR. Positive test results do not rule out bacterial infection or co-infection with other pathogens. Test results should be interpreted in conjunction with other laboratory and clinical data. Negative Results: Negative for by PCR. Negative test results do not preclude influenza virus or RSV infection and should not be used as the sole basis for diagnosis, treatment, or other management decisions. There is a risk of false negative RSV results when at low concentration and in the presence of co-infection with high concentration of influenza A. Invalid Results: An Invalid result (INV) was obtained. The test was repeated with similar results. REPEAT COLLECTION AND TESTING IS RECOMMENDED. The [employer] Flu A/B & RSV Assay is a real-time polymerase chain reaction (PCR) based qualitative in vitro diagnostic test for the direct detection and differentiation of influenza A virus, influenza B virus, and respiratory syncytial virus (RSV) nucleic acid in nasopharyngeal swab (INVESTOR RELATIONS COORDINATOR) specimens from patients with signs and symptoms of respiratory infection in conjunction with clinical and laboratory findings. The test is intended for use as an aid in the differential diagnosis of influenza A virus, influenza B virus, and RSV in humans and is not intended to detect influenza C. Performed By: #### C BC, GFR, BMP, ANEU, ADIFF #### [place] [address] Flu B PCR (AO) Negative Normal Negative Formerly [facility], [facility] ([place]) Comment on above: Result Comment: Posi tive Results: Positive Flu A/B or RSV for by PCR. Positive test results do not rule out bacterial infection or co-infection with other pathogens. Test results should be interpreted in conjunction with other laboratory and clinical data. Negative Results: Negative for by PCR. Negative test results do not preclude influenza virus or RSV infection and should not be used as the sole basis for diagnosis, treatment, or other management decisions. There is a risk of false negative RSV results when at low concentration and in the presence of co-infection with high concentration of influenza A. Invalid Results: An Invalid result (INV) was obtained. The test was repeated with similar results. REPEAT COLLECTION AND TESTING IS RECOMMENDED. The [employer] Flu A/B & RSV Assay is a real-time polymerase chain reaction (PCR) based qualitative in vitro diagnostic test for the direct detection and differentiation of influenza A virus, influenza B virus, and respiratory syncytial virus (RSV) nucleic acid in nasopharyngeal swab (INVESTOR RELATIONS COORDINATOR) specimens from patients with signs and symptoms of respiratory infection in conjunction with clinical and laboratory findings. The test is intended for use as an aid in the differential diagnosis of influenza A virus, influenza B virus, and RSV in humans and is not intended to detect influenza C. Performed By: #### C BC, GFR, BMP, ANEU, ADIFF #### [address] [address] RSV PCR (AO) Negative Normal Negative Formerly [facility], [facility] ([place]) Comment on above: Result Comment: Posi tive Results: Positive Flu A/B or RSV for by PCR. Positive test results do not rule out bacterial infection or co-infection with other pathogens. Test results should be interpreted in conjunction with other laboratory and clinical data. Negative Results: Negative for by PCR. Negative test results do not preclude influenza virus or RSV infection and should not be used as the sole basis for diagnosis, treatment, or other management decisions. There is a risk of false negative RSV results when at low concentration and in the presence of co-infection with high concentration of influenza A. Invalid Results: An Invalid result (INV) was obtained. The test was repeated with similar results. REPEAT COLLECTION AND TESTING IS RECOMMENDED. The [employer] Flu A/B & RSV Assay is a real-time polymerase chain reaction (PCR) based qualitative in vitro diagnostic test for the direct detection and differentiation of influenza A virus, influenza B virus, and respiratory syncytial virus (RSV) nucleic acid in nasopharyngeal swab (INVESTOR RELATIONS COORDINATOR) specimens from patients with signs and symptoms of respiratory infection in conjunction with clinical and laboratory findings. The test is intended for use as an aid in the differential diagnosis of influenza A virus, influenza B virus, and RSV in humans and is not intended to detect influenza C. Performed By: #### C BC, GFR, BMP, ANEU, ADIFF #### [address] [address] LABORATORYOrdered By: Andrei Ayala on 04-28-2023 aPTT Coag (PPP) [Time] 44.7 s High 25.0 - 35.0 seconds AO [facility] SS Comment on above: Interpretive Data: F or Heparin anticoagulation therapy, the recommended therapeutic range is: 50.6-87.4 seconds. Patients on heparin therapy may have an extreme result. Heparin dose (APTT) Unknown (04/28/23 3:54 PM) Normal AO Coagulation S aPTT Coag (PPP) [Time] 34.0 s Normal 25.0 - 35.0 seconds AO [facility] SS Comment on above: Interpretive Data: F or Heparin anticoagulation therapy, the recommended therapeutic range is: 50.6-87.4 seconds. Patients on heparin therapy may have an extreme result. Heparin dose (APTT) Unknown (04/28/23 9:46 AM) Normal AO Coagulation S INR Coag (PPP) [Relative time] 1.3 {INR} Invalid Interpretation Code AO [facility] SS Comment on above: Interpretive Data: Valeriy mccoy [employer] (CHEST, 1992, [id number]) recommended therapeutic range for oral anticoagulant therapy is: LOW RISK: Prophylaxis of venous thrombosis INR: 2.0-3.0 Treatment of pulmonary embolism 2.0-3.0 Prevention of systemic embolism 2.0-3.0 HIGH RISK: Mechanical prosthetic valves 2.5-3.5 PT Coag (PPP) [Time] 15.1 s High 9.0 - 1 4.2 seconds AO [facility] SS LABORATORYOrdered By: Pamela Jones on 04-28-2023 ACINETOBACTER CALCOACETICUS-BAUMANNII COMPLEX DNA:PRTHR:PT:BLD.POS GROWTH:ORD:NON-PROBE.AM P.TAR Not Detected *NA* (04/28/23 7:16 AM) Invalid Interpretation Code Not Detected AH Auto Microbiology GL SS BACTERIAL METHICILLIN RESISTANCE MECA+MECC GENES+SCCMEC+ORFX JUNCTION:PRTHR:PT:ISOLA TE/SPECIMEN:ORD:MOLGEN Detected *ABN* (04/28/23 7:16 AM) Invalid Interpretation Code Not Detected AH Auto Microbiology GL SS BACTEROIDES FRAGILIS DNA:PRTHR:PT:BLD.POS GROWTH:ORD:NON-PROBE.AM P.TAR Not Detected *NA* (04/28/23 7:16 AM) Invalid Interpretation Code Not Detected AH Auto Microbiology GL SS BCID Comment See Comment 2 (04/28/23 7:16 AM) Normal AH Auto Microbiology GL SS Comment on above: Interpretive Data: A ntimicrobial resistance can occur via multiple mechanisms. A Not Detected result for antimicrobial resistance gene(s) does not indicate antimicrobial susceptibility. Culture identification and susceptibility results to follow. If BCID panel was negative (Not Detected) for all targets, this does not exclude a blood stream infection. Our blood culture system detected growth. Culture identification and susceptibility testing (if appropriate) to follow. C. albicans DNA BRAD+non-probe Ql (Pos bld culture) Not Detected *NA* (04/28/23 7:16 AM) Invalid Interpretation Code Not Detected AH Auto Microbiology GL SS C. glabrata DNA BRAD+non-probe Ql (Pos bld culture) Not Detected *NA* (04/28/23 7:16 AM) Invalid Interpretation Code Not Detected AH Auto Microbiology GL SS C. krusei DNA BRAD+non-probe Ql (Pos bld culture) Not Detected *NA* (04/28/23 7:16 AM) Invalid Interpretation Code Not Detected AH Auto Microbiology GL SS C. parapsilosis DNA BRAD+non-probe Ql (Pos bld culture) Not Detected *NA* (04/28/23 7:16 AM) Invalid Interpretation Code Not Detected AH Auto Microbiology GL SS C. tropicalis DNA BRAD+non-probe Ql (Pos bld culture) Not Detected *NA* (04/28/23 7:16 AM) Invalid Interpretation Code Not Detected AH Auto Microbiology GL SS JULIO AURIS DNA:PRTHR:PT:BLD.POS GROWTH:ORD:NON-PROBE.AM P.TAR Not Detected *NA* (04/28/23 7:16 AM) Invalid Interpretation Code Not Detected AH Auto Microbiology GL SS Carbapenem resistance antonina OXA-48-like gene Molgen Ql (Islt/Spec) Not Applicable *NA* (04/28/23 7:16 AM) Invalid Interpretation Code Not Detected AH Auto Microbiology GL SS Carbapenem resistance blaIMP gene Molgen Ql (Islt/Spec) Not Applicable *NA* (04/28/23 7:16 AM) Invalid Interpretation Code Not Detected AH Auto Microbiology GL SS Carbapenem resistance blaKPC gene Molgen Ql (Islt/Spec) Not Applicable *NA* (04/28/23 7:16 AM) Invalid Interpretation Code Not Detected AH Auto Microbiology GL SS Carbapenem resistance blaNDM gene Molgen Ql (Islt/Spec) Not Applicable *NA* (04/28/23 7:16 AM) Invalid Interpretation Code Not Detected AH Auto Microbiology GL SS Carbapenem resistance blaVIM gene Molgen Ql (Islt/Spec) Not Applicable *NA* (04/28/23 7:16 AM) Invalid Interpretation Code Not Detected AH Auto Microbiology GL SS Cephalosporin resistance antonina(CTX-M) gene Molgen Ql (Islt/Spec) Not Applicable *NA* (04/28/23 7:16 AM) Invalid Interpretation Code Not Detected AH Auto Microbiology GL SS Colistin resistance mcr-1 gene Molgen Ql (Islt/Spec) Not Applicable *NA* (04/28/23 7:16 AM) Invalid Interpretation Code Not Detected AH Auto Microbiology GL SS CRYPTOCOCCUS GATTII+NEOFORMANS DNA:PRTHR:PT:BLD.POS GROWTH:ORD:NON-PROBE.AM P.TAR Not Detected *NA* (04/28/23 7:16 AM) Invalid Interpretation Code Not Detected AH Auto Microbiology GL SS E. cloacae complex DNA BRAD+non-probe Ql (Pos bld culture) Not Detected *NA* (04/28/23 7:16 AM) Invalid Interpretation Code Not Detected AH Auto Microbiology GL SS E. coli DNA BRAD+non-probe Ql (Pos bld culture) Not Detected *NA* (04/28/23 7:16 AM) Invalid Interpretation Code Not Detected AH Auto Microbiology GL SS ENTEROBACTERALES DNA:PRTHR:PT:BLD.POS GROWTH:ORD:NON-PROBE.AM P.TAR Not Detected *NA* (04/28/23 7:16 AM) Invalid Interpretation Code Not Detected AH Auto Microbiology GL SS ENTEROCOCCUS FAECALIS DNA:PRTHR:PT:BLD.POS GROWTH:ORD:NON-PROBE.AM P.TAR Not Detected *NA* (04/28/23 7:16 AM) Invalid Interpretation Code Not Detected AH Auto Microbiology GL SS ENTEROCOCCUS FAECIUM DNA:PRTHR:PT:BLD.POS GROWTH:ORD:NON-PROBE.AM P.TAR Not Detected *NA* (04/28/23 7:16 AM) Invalid Interpretation Code Not Detected AH Auto Microbiology GL SS H. influenzae DNA BRAD+non-probe Ql (Pos bld culture) Not Detected *NA* (04/28/23 7:16 AM) Invalid Interpretation Code Not Detected AH Auto Microbiology GL SS K. oxytoca DNA BRAD+non-probe Ql (Pos bld culture) Not Detected *NA* (04/28/23 7:16 AM) Invalid Interpretation Code Not Detected AH Auto Microbiology GL SS KLEBSIELLA AEROGENES DNA:PRTHR:PT:BLD.POS GROWTH:ORD:NON-PROBE.AM P.TAR Not Detected *NA* (04/28/23 7:16 AM) Invalid Interpretation Code Not Detected AH Auto Microbiology GL SS KLEBSIELLA PNEUMONIAE+KLEBSIELLA VARIICOLA+KLEBSIELLA QUASIPNEUMONIAE DNA:PRTHR:PT:BLD.POS GROWTH:ORD:NON-PROBE.AM P.TAR Not Detected *NA* (04/28/23 7:16 AM) Invalid Interpretation Code Not Detected AH Auto Microbiology GL SS L. monocytogenes DNA BRAD+non-probe Ql (Pos bld culture) Not Detected *NA* (04/28/23 7:16 AM) Invalid Interpretation Code Not Detected AH Auto Microbiology GL SS Methicillin resistance mecA+mecC genes Molgen Ql (Islt/Spec) Not Applicable *NA* (04/28/23 7:16 AM) Invalid Interpretation Code Not Detected AH Auto Microbiology GL SS N. meningitidis DNA BRAD+non-probe Ql (Pos bld culture) Not Detected *NA* (04/28/23 7:16 AM) Invalid Interpretation Code Not Detected AH Auto Microbiology GL SS P. aeruginosa DNA BRAD+non-probe Ql (Pos bld culture) Not Detected *NA* (04/28/23 7:16 AM) Invalid Interpretation Code Not Detected AH Auto Microbiology GL SS Proteus sp DNA BRAD+non-probe Ql (Pos bld culture) Not Detected *NA* (04/28/23 7:16 AM) Invalid Interpretation Code Not Detected AH Auto Microbiology GL SS S. agalactiae DNA BRAD+non-probe Ql (Pos bld culture) Not Detected *NA* (04/28/23 7:16 AM) Invalid Interpretation Code Not Detected AH Auto Microbiology GL SS S. aureus DNA BRAD+non-probe Ql (Pos bld culture) Detected 3 *ABN* (04/28/23 7:16 AM) Invalid Interpretation Code Not Detected AH Auto Microbiology GL SS Comment on above: Interpretive Data: I f Staphylococcus aureus is Detected, an Infectious Disease physician consult is required on identification. S. marcescens DNA BRAD+non-probe Ql (Pos bld culture) Not Detected *NA* (04/28/23 7:16 AM) Invalid Interpretation Code Not Detected AH Auto Microbiology GL SS S. pneumoniae DNA BRAD+non-probe Ql (Pos bld culture) Not Detected *NA* (04/28/23 7:16 AM) Invalid Interpretation Code Not Detected AH Auto Microbiology GL SS S. pyogenes DNA BRAD+non-probe Ql (Pos bld culture) Not Detected *NA* (04/28/23 7:16 AM) Invalid Interpretation Code Not Detected AH Auto Microbiology GL SS SALMONELLA SP DNA:PRTHR:PT:BLD.POS GROWTH:ORD:NON-PROBE.AM P.TAR Not Detected *NA* (04/28/23 7:16 AM) Invalid Interpretation Code Not Detected AH Auto Microbiology GL SS STAPHYLOCOCCUS EPIDERMIDIS DNA:PRTHR:PT:BLD.POS GROWTH:ORD:NON-PROBE.AM P.TAR Not Detected *NA* (04/28/23 7:16 AM) Invalid Interpretation Code Not Detected AH Auto Microbiology GL SS STAPHYLOCOCCUS LUGDUNENSIS DNA:PRTHR:PT:BLD.POS GROWTH:ORD:NON-PROBE.AM P.TAR Not Detected *NA* (04/28/23 7:16 AM) Invalid Interpretation Code Not Detected AH Auto Microbiology GL SS Staphylococcus sp DNA BRAD+non-probe Ql (Pos bld culture) Detected *ABN* (04/28/23 7:16 AM) Invalid Interpretation Code Not Detected AH Auto Microbiology GL SS STENOTROPHOMONAS MALTOPHILIA DNA:PRTHR:PT:BLD.POS GROWTH:ORD:NON-PROBE.AM P.TAR Not Detected *NA* (04/28/23 7:16 AM) Invalid Interpretation Code Not Detected AH Auto Microbiology GL SS Streptococcus sp DNA BRAD+non-probe Ql (Pos bld culture) Not Detected *NA* (04/28/23 7:16 AM) Invalid Interpretation Code Not Detected AH Auto Microbiology GL SS Vancomycin resistance Lori + vanB genes Molgen Ql (Islt/Spec) Not Applicable *NA* (04/28/23 7:16 AM) Invalid Interpretation Code Not Detected AH Auto Microbiology GL SS LABORATORYOrdered By: SYSTEM SYSTEM on 04-28-2023 Albumin BCP dye [Mass/Vol] 2.6 G/dL Low 3.5 - 5.0 G/dL AO ADM SS Albumin/Globulin [Mass ratio] 0.5 {ratio} Low 1.1 - 2.5 ratio AO ADM SS ALP [Catalytic activity/Vol] 176 U/L High 40 - 135 U/L AO ADM SS ALT With P-5'-P [Catalytic activity/Vol] 74 U/L High 16 - 63 U/L AO ADM SS AST With P-5'-P [Catalytic activity/Vol] 43 U/L High 10 - 40 U/L AO ADM SS Bands 12.0 % High 0.0 - 5.0 % AO Workflow SS Basophil %, Manual 0.0 % Normal 0.0 - 2.5 % AO Workflow SS Basophil, Abs Manual 0.0 103/mcL Normal 0.0 - 0 .2 10^3/mcL AO Workflow SS Bilirubin [Mass/Vol] 0.6 mg/dL Normal 0.2 - 1 .0 mg/dL AO ADM SS Comment on above: Interpretive Data: U se of this assay is not recommended for patients undergoing treatment with eltrombopag due to the potential for falsely elevated results. Jamel cells LM Ql (Bld) 1+ *NA* (04/28/23 7:16 AM) Invalid Interpretation Code AO Workflow SS Calcium [Mass/Vol] 8.9 mg/dL Normal 8.4 - 10. 2 mg/dL AO ADM SS Chloride [Moles/Vol] 96 mmol/L Low 98 - 10 7 mmol/L AO ADM SS CO2 [Moles/Vol] 25 mmol/L Normal 22 - 29 mmol/L AO ADM SS Creatinine [Mass/Vol] 1.15 mg/dL Normal 0.70 - 1.30 mg/dL AO ADM SS Electrolyte Balance 11.0 mEq/L Normal 4.0 - 15 .0 mEq/L AO ADM SS Eosinophil %, Manual 0.0 % Normal 0.0 - 7 .0 % AO Workflow SS Eosinophils (Bld) [#/Vol] 0.0 103/mcL Normal 0.0 - 0.4 10^3/mcL AO Workflow SS Erythrocyte distribution width (RBC) [Ratio] 14.1 % Normal 11.5 - 14.5 % AO Workflow SS GFR/1.73 sq M.predicted among blacks MDRD (S/P/Bld) [Vol rate/Area] 92 ml/min/1.73sqm Invalid Interpretation Code AO Chemistry S Comment on above: Interpretive Data: GFR Population mean for , Non- Americans Ages 20-29 = 116 mL/min/1.73 sq.m. Ages 30-39 = 107 mL/min/1.73 sq.m. Ages 40-49 = 99 mL/min/1.73 sq.m. Ages 50-59 = 93 mL/min/1.73 sq.m. Ages 60-69 = 85 mL/min/1.73 sq.m. Ages 70+ = 75 mL/min/1.73 sq.m. Chronic Kidney Disease: Less than 60 mL/min/1.73 square meters End Stage Renal Disease: Less than 15 mL/min/1.73 square meters GFR/1.73 sq M.predicted among non-blacks MDRD (S/P/Bld) [Vol rate/Area] 76 ml/min/1.73sqm Invalid Interpretation Code AO Chemistry S Comment on above: Interpretive Data: GFR Population mean for , Non- Americans Ages 20-29 = 116 mL/min/1.73 sq.m. Ages 30-39 = 107 mL/min/1.73 sq.m. Ages 40-49 = 99 mL/min/1.73 sq.m. Ages 50-59 = 93 mL/min/1.73 sq.m. Ages 60-69 = 85 mL/min/1.73 sq.m. Ages 70+ = 75 mL/min/1.73 sq.m. Chronic Kidney Disease: Less than 60 mL/min/1.73 square meters End Stage Renal Disease: Less than 15 mL/min/1.73 square meters Globulin 5.1 G/dL Invalid Interpretation Code AO ADM SS Glucose [Mass/Vol] 126 mg/dL High 70 - 105 mg/dL AO ADM SS Hematocrit (Bld) [Volume fraction] 39.0 % Low 42.0 - 52.0 % AO Workflow SS Hemoglobin (Bld) [Mass/Vol] 13.2 G/dL Low 14.0 - 18.0 G/dL AO Workflow SS Lymphocyte %, Manual 5.0 % Low 10.0 - 50.0 % AO Workflow SS Lymphocyte, Abs Manual 1.2 103/mcL Normal 0.8 - 3.9 10^3/mcL AO Workflow SS MCH (RBC) [Entitic mass] 27.0 pg Normal 27.0 - 31.2 pg AO Workflow SS MCHC 33.8 G/dL Normal 31.8 - 35.4 G/dL AO Workflow SS MCV (RBC) [Entitic vol] 79.9 fL Low 80.0 - 94.0 fL AO Workflow SS Monocyte %, Manual 0.0 % Low 1.7 - 13. 0 % AO Workflow SS Monocyte distribution width Auto (Bld) [Entitic vol] 33.19 1 High 0.00 - 20.00 AO Workflow SS Comment on above: Result Comment: For adults in ED, MDW>20.0 may be associated with a higher risk of sepsis during the first 12hrs of hospital admission The predictive value of MDW for identifying sepsis in patients with hematological abnormalities has not been established Monocyte, Abs Manual 0.0 103/mcL Low 0.2 - 1 .0 10^3/mcL AO Workflow SS Neutrophil %, Manual 83.0 % High 37.0 - 80.0 % AO Workflow SS Neutrophil, Abs Manual 20.2 103/mcL High 2.9 - 6.2 10^3/mcL AO Workflow SS Nucleated RBC 0.0 /100 WBC Invalid Interpretation Code AO Workflow SS Platelet Estimate Slt Decreased *NA* (04/28/23 7:16 AM) Invalid Interpretation Code AO Workflow SS Platelet mean volume (Bld) [Entitic vol] 8.7 fL Normal 7.4 - 10.4 fL AO Workflow SS Platelets (Bld) [#/Vol] 130 103/mcL Normal 130 - 400 10^3/mcL AO Workflow SS Potassium [Moles/Vol] 4.1 mmol/L Normal 3.5 - 5.1 mmol/L AO ADM SS Protein [Mass/Vol] 7.7 G/dL Normal 6.4 - 8.2 G/dL AO ADM SS RBC (Bld) [#/Vol] 4.88 106/mcL Normal 4.04 - 6.13 10^6/mcL AO Workflow SS Sodium [Moles/Vol] 132 mmol/L Low 136 - 145 mmol/L AO ADM SS Troponin I.cardiac DL <= 0.01 ng/mL [Mass/Vol] ng/L Normal 0.0 - 76.2 ng/L AO ADM SS Urea nitrogen [Mass/Vol] 20 mg/dL High 7 - 18 mg/dL AO ADM SS Urea nitrogen/Creatinine [Mass ratio] 17 ratio Normal 7 - 27 ratio AO ADM SS Vacuolated Neutrophils 1+ *NA* (04/28/23 7:16 AM) Invalid Interpretation Code AO Workflow SS WBC (Bld) [#/Vol] 24.3 103/mcL High 4.6 - 10.8 10^3/mcL AO Workflow SS LABORATORYOrdered By: Raisa Martinez on 04-28-2023 Amphetamines Screen Ql (U) Positive *ABN* (04/28/23 7:16 AM) Invalid Interpretation Code Negative AO ADM SS Barbiturates Screen Ql (U) Negative *NA* (04/28/23 7:16 AM) Invalid Interpretation Code Negative AO ADM SS Benzodiazepines Ql (U) Negative *NA* (04/28/23 7:16 AM) Invalid Interpretation Code Negative AO ADM SS Benzoylecgonine Screen Ql (U) Negative *NA* (04/28/23 7:16 AM) Invalid Interpretation Code Negative AO ADM SS Cannabinoids Screen Ql (U) Positive *ABN* (04/28/23 7:16 AM) Invalid Interpretation Code Negative AO ADM SS FLUAV RNA BRAD+probe Ql (Upper resp) Negative 13 (04/28/23 7:16 AM) Normal Negative AO Auto Urine SS Comment on above: Interpretive Data: P ositive Results: Positive Flu A/B or RSV for by PCR. Positive test results do not rule out bacterial infection or co-infection with other pathogens. Test results should be interpreted in conjunction with other laboratory and clinical data. Negative Results: Negative for by PCR. Negative test results do not preclude influenza virus or RSV infection and should not be used as the sole basis for diagnosis, treatment, or other management decisions. There is a risk of false negative RSV results when at low concentration and in the presence of co-infection with high concentration of influenza A. Invalid Results: An Invalid result (INV) was obtained. The test was repeated with similar results. REPEAT COLLECTION AND TESTING IS RECOMMENDED. The [employer] Flu A/B & RSV Assay is a real-time polymerase chain reaction (PCR) based qualitative in vitro diagnostic test for the direct detection and differentiation of influenza A virus, influenza B virus, and respiratory syncytial virus (RSV) nucleic acid in nasopharyngeal swab (INVESTOR RELATIONS COORDINATOR) specimens from patients with signs and symptoms of respiratory infection in conjunction with clinical and laboratory findings. The test is intended for use as an aid in the differential diagnosis of influenza A virus, influenza B virus, and RSV in humans and is not intended to detect influenza C. FLUBV RNA BRAD+probe Ql (Upper resp) Negative 14 (04/28/23 7:16 AM) Normal Negative AO Auto Urine SS Comment on above: Interpretive Data: P ositive Results: Positive Flu A/B or RSV for by PCR. Positive test results do not rule out bacterial infection or co-infection with other pathogens. Test results should be interpreted in conjunction with other laboratory and clinical data. Negative Results: Negative for by PCR. Negative test results do not preclude influenza virus or RSV infection and should not be used as the sole basis for diagnosis, treatment, or other management decisions. There is a risk of false negative RSV results when at low concentration and in the presence of co-infection with high concentration of influenza A. Invalid Results: An Invalid result (INV) was obtained. The test was repeated with similar results. REPEAT COLLECTION AND TESTING IS RECOMMENDED. The [employer] Flu A/B & RSV Assay is a real-time polymerase chain reaction (PCR) based qualitative in vitro diagnostic test for the direct detection and differentiation of influenza A virus, influenza B virus, and respiratory syncytial virus (RSV) nucleic acid in nasopharyngeal swab (INVESTOR RELATIONS COORDINATOR) specimens from patients with signs and symptoms of respiratory infection in conjunction with clinical and laboratory findings. The test is intended for use as an aid in the differential diagnosis of influenza A virus, influenza B virus, and RSV in humans and is not intended to detect influenza C. Methadone Screen Ql (U) Negative *NA* (04/28/23 7:16 AM) Invalid Interpretation Code Negative AO ADM SS Opiates Screen Ql (U) Positive *ABN* (04/28/23 7:16 AM) Invalid Interpretation Code Negative AO ADM SS Phencyclidine Ql (U) Negative *NA* (04/28/23 7:16 AM) Invalid Interpretation Code Negative AO ADM SS RSV RNA BRAD+probe Ql (Upper resp) Negative 15 (04/28/23 7:16 AM) Normal Negative AO Auto Urine SS Comment on above: Interpretive Data: P ositive Results: Positive Flu A/B or RSV for by PCR. Positive test results do not rule out bacterial infection or co-infection with other pathogens. Test results should be interpreted in conjunction with other laboratory and clinical data. Negative Results: Negative for by PCR. Negative test results do not preclude influenza virus or RSV infection and should not be used as the sole basis for diagnosis, treatment, or other management decisions. There is a risk of false negative RSV results when at low concentration and in the presence of co-infection with high concentration of influenza A. Invalid Results: An Invalid result (INV) was obtained. The test was repeated with similar results. REPEAT COLLECTION AND TESTING IS RECOMMENDED. The [employer] Flu A/B & RSV Assay is a real-time polymerase chain reaction (PCR) based qualitative in vitro diagnostic test for the direct detection and differentiation of influenza A virus, influenza B virus, and respiratory syncytial virus (RSV) nucleic acid in nasopharyngeal swab (INVESTOR RELATIONS COORDINATOR) specimens from patients with signs and symptoms of respiratory infection in conjunction with clinical and laboratory findings. The test is intended for use as an aid in the differential diagnosis of influenza A virus, influenza B virus, and RSV in humans and is not intended to detect influenza C. SARS-CoV-2 (COVID-19) RNA BRAD+probe Ql (Resp) Negative results do not preclude SARS-CoV-2 infection and should not be used as the sole basis for patient management decisions. Negative results must be combined with clinical observations, patient history, and epidemiological information.There is a risk of false negative values resulting from improperly collected, transported, or handled specimens.There is a risk of false negative values due to the presence of sequence variants in the pathogen targets of the assay, procedural errors, amplification inhibitors in specimens, or inadequate numbers of organisms for amplification.[employer] SARS-CoV-2 Assay is a Real-Time reverse-transcriptase polymerase chain reaction (RT-PCR) based qualitative in vitro diagnostic test intended for the qualitative detection of nucleic acid from the SARS-CoV-2 in nasopharyngeal swab specimens collected from individuals suspected of COVID-19 by their healthcare provider. Testing is limited to laboratories certified under the Clinical Laboratory Improvement Amendments of 1988 (CLIA), 42 U.S.C. 263a, to perform moderate and high complexity tests. Invalid Interpretation Code AO Auto Urine SS Urine Drugs screened: See Below 10 (04/28/23 7:16 AM) Normal AO Chemistry S Comment on above: Interpretive Data: T his drug screen is a presumptive screening only. No confirmation will be performed unless requested. Drugs screened include: Threshold Amphetamines/Methamphetamines 1,000 ng/mL Barbiturates 200 ng/mL Benzodiazepine metabolites 200 ng/mL Cannabinoids (THC metabolites) 50 ng/mL Cocaine 300 ng/mL Opiates 300 ng/mL Methadone 300 ng/mL Phencyclidine (PCP) 25 ng/mL Testing has been performed FOR MEDICAL PURPOSES ONLY. LABORATORYOrdered By: Todd De Luna on 04-28-2023 Fibrin D-dimer DDU (PPP) [Mass/Vol] 2831 ng/mL D-DU High 0 - 230 ng/mL D-DU AO [facility] SS Comment on above: Result Comment: Resu lts reported in D-DU ng/mL. Positive for D-dimer. A positive D-Dimer may occur in the following: DVT, PE, DIC, Trauma, Cancer, Sepsis, , Rheumatoid arthritis, Myocardial infarction and Cirrhosis. The presence of Rheumatoid Factor and HAMA (human mouse antibody) produces an overestimation of test results. Interpretive Data: T he result of the D-Dimer test should be evaluated in the context of all the clinical and laboratory data available. In those instances where the laboratory result does not agree with the clinical evaluation, additional tests should be performed accordingly. If the D-Dimer result is used to exclude DVT or PE, the recommended cutoff value is less than 230 ng/mL. The D-Dimer result should not be used alone to rule in DVT/PE, but should be used in conjunction with a clinical pretest probability (PTP)assessment model to exclude venous thromboembolism (VTE) in outpatients suspected of deep venous thrombosis (DVT) and pulmonary embolism (PE). No Panel Informationon 04-28 GSAER Gram Positive Cocci in clusters [facility] Microscopic examination of blood, culture Culture has been received in lab and is no growth to date. Routine cultures are held for 5 days. [facility] PROon 04-28-2023 PT Coag (PPP) [Time] 15.1 s High 9.0-14.2 [facility] ([place]) Comment on above: Performed By: #### P RO ####[address] [place], [place] [address] PT International Ratio 1.3 Normal [facility] ([place]) Comment on above: Result Comment: The [employer] (CHEST, 1992, [id number]) recommended therapeutic range for oral anticoagulant therapy is: LOW RISK: Prophylaxis of venous thrombosis INR: 2.0-3.0 Treatment of pulmonary embolism 2.0-3.0 Prevention of systemic embolism 2.0-3.0 HIGH RISK: Mechanical prosthetic valves 2.5-3.5 Performed By: #### P RO ####[address] [place], [place] [address] TROPHSon 04-28-2023 Troponin I High Sensitivity <4.0 Normal 0.0-76.2 [facility] ([place]) Comment on above: Performed By: #### C BC, MDW, MORPH, GFR, TROPHS, DIFF, CMP, DIMER ####[address] [place], [place] [address] UDRUGon 04-28-2023 Amphetamine (u) Positive Abnormal Negative [facility] ([place]) Comment on above: Performed By: #### C BC, GFR, BMP, ANEU, ADIFF #### [place] [address] Barbiturate (u) Negative Normal Negative [facility] ([place]) Comment on above: Performed By: #### C BC, GFR, BMP, ANEU, ADIFF #### [place] [id number] Benzodiazepine (u) Negative Normal Negative [facility] ([place]) Comment on above: Performed By: #### C BC, GFR, BMP, ANEU, ADIFF #### [address] [address] Cannabinoid (u) Positive Abnormal Negative [facility] ([place]) Comment on above: Performed By: #### C BC, GFR, BMP, ANEU, ADIFF #### [place] [id number] Cocaine Ql (U) Negative Normal Negative [facility] ([place]) Comment on above: Performed By: #### C BC, GFR, BMP, ANEU, ADIFF #### [address] [address] Methadone Ql (U) Negative Normal Negative [facility] ([place]) Comment on above: Performed By: #### C BC, GFR, BMP, ANEU, ADIFF #### [place] [id number] Opiate (u) Positive Abnormal Negative [facility] ([place]) Comment on above: Performed By: #### C BC, GFR, BMP, ANEU, ADIFF #### [address] [address] PCP (u) Negative Normal Negative [facility] ([place]) Comment on above: Performed By: #### C BC, GFR, BMP, ANEU, ADIFF #### [place] [address] Urine Drugs screened: See Below Normal [facility] ([place]) Comment on above: Result Comment: This drug screen is a presumptive screening only. No confirmation will be performed unless requested. Drugs screened include: Threshold Amphetamines/Methamphetamines 1,000 ng/mL Barbiturates 200 ng/mL Benzodiazepine metabolites 200 ng/mL Cannabinoids (THC metabolites) 50 ng/mL Cocaine 300 ng/mL Opiates 300 ng/mL Methadone 300 ng/mL Phencyclidine (PCP) 25 ng/mL Testing has been performed FOR MEDICAL PURPOSES ONLY. Performed By: #### C BC, GFR, BMP, ANEU, ADIFF #### [place] [id number] XR CHEST 2 VIEWSon 4 XR CHEST 2 VIEWS ORIGINAL EXAMINATION: TWO XRAY VIEWS OF THE CHEST 04/28/2023 8:24 am COMPARISON: Prior chest x-ray dated 05/08/2022. Prior CTA chest dated 04/13/2022. HISTORY: ORDERING SYSTEM PROVIDED HISTORY: Reason for Exam: SOB/Cough/Fever FINDINGS: The cardiomediastinal silhouette is normal in appearance. There are new diffuse patchy nodular opacities seen throughout the lungs bilaterally. A stable cavitary lesion is seen of the right upper lobe. Prior CTA chest showed multiple cavitary nodules suggestive of septic emboli or inflammatory process. There is no pleural effusion or pneumothorax. IMPRESSION: - New diffuse patchy nodular opacities throughout the lungs bilaterally. - Stable cavitary lesion of the right upper lobe. Interpreted by: Sharif Nelson MD Preliminary Report By: Sharif Nelson MD Electronically signed By Sharif Nelson MD Dictated Date: 04/28/2023 8:26:16 AM Prelim Date: 04/28/2023 8:28:33 AM Sign Date: 04/28/2023 8:28:33 AM Ordering Provider: JONY Olvera [facility] ([place]) LABORATORYOrdered By: Raisa Good on 05-10-2022 FLUAV RNA BRAD+probe Ql (Resp) Negative 5 (05/10/22 11:30 AM) Invalid Interpretation Code Negative AH Auto Viro/Sero SS Comment on above: Result Comment: [place] [id number] FLUBV RNA BRAD+probe Ql (Resp) Negative 6 (05/10/22 11:30 AM) Invalid Interpretation Code Negative AH Auto Viro/Sero SS Comment on above: Result Comment: [place] [id number] RSV PCR Negative 7 (05/10/22 11:30 AM) Invalid Interpretation Code Negative AH Auto Viro/Sero SS Comment on above: Result Comment: [place] s [id number] SARS-CoV-2 (COVID-19) RNA BRAD+probe Ql (Resp) Negative 4 (05/10/22 11:30 AM) Invalid Interpretation Code Negative AH Auto Viro/Sero SS Comment on above: Result Comment: [place] [id number] LABORATORYOrdered By: SYSTEM SYSTEM on 05-10-2022 Calcium [Mass/Vol] 9.9 mg/dL Invalid Interpretation Code 8.7 - 10.4 mg/dL AH ADM SS Chloride [Moles/Vol] 102 mmol/L Invalid Interpretation Code 98 - 110 mEq/L ADM SS CO2 [Moles/Vol] 29 mmol/L Invalid Interpretation Code 22 - 32 mEq/L AH ADM SS Creatinine [Mass/Vol] 0.63 mg/dL Invalid Interpretation Code 0.60 - 1.40 mg/dL AH ADM SS Electrolyte Balance 7.0 mEq/L Invalid Interpretation Code 4.0 - 15.0 mEq/L AH ADM SS GFR/1.73 sq M.predicted among blacks MDRD (S/P/Bld) [Vol rate/Area] ml/min/1.73sqm Invalid Interpretation Code Chemistry S GFR/1.73 sq M.predicted among non-blacks MDRD (S/P/Bld) [Vol rate/Area] ml/min/1.73sqm Invalid Interpretation Code Chemistry S Glucose [Mass/Vol] 101 mg/dL Invalid Interpretation Code 70 - 110 mg/dL AH ADM SS Potassium [Moles/Vol] 4.4 mmol/L Invalid Interpretation Code 3.5 - 5.0 mEq/L AH ADM SS Sodium [Moles/Vol] 138 mmol/L Invalid Interpretation Code 136 - 145 mEq/L AH ADM SS Urea nitrogen [Mass/Vol] 12.0 mg/dL Invalid Interpretation Code 8.0 - 22.0 mg/dL ADM SS Urea nitrogen/Creatinine [Mass ratio] 19.0 ratio Invalid Interpretation Code 10.0 - 22.0 ratio ADM SS LABORATORYOrdered By: SYSTEM SYSTEM on 05-09-2022 Basophils (Bld) [#/Vol] 0.1 103/mcL Invalid Interpretation Code 0.0 - 0.3 10^3/mcL Workflow SS Basophils/100 WBC (Bld) 1.5 % Invalid Interpretation Code 0.0 - 2.5 % Workflow SS Calcium [Mass/Vol] 9.9 mg/dL Invalid Interpretation Code 8.7 - 10.4 mg/dL ADM SS Chloride [Moles/Vol] 106 mmol/L Invalid Interpretation Code 98 - 110 mEq/L ADM SS CO2 [Moles/Vol] 28 mmol/L Invalid Interpretation Code 22 - 32 mEq/L ADM SS Creatinine [Mass/Vol] 0.63 mg/dL Invalid Interpretation Code 0.60 - 1.40 mg/dL ADM SS Electrolyte Balance 4.0 mEq/L Invalid Interpretation Code 4.0 - 15.0 mEq/L ADM SS Eosinophils (Bld) [#/Vol] 0.3 103/mcL Invalid Interpretation Code 0.0 - 0.7 10^3/mcL Workflow SS Eosinophils/100 WBC (Bld) 4.5 % Invalid Interpretation Code 0.0 - 6.0 % Workflow SS Erythrocyte distribution width (RBC) [Ratio] 20.0 % Invalid Interpretation Code 11.5 - 15.5 % Workflow SS GFR/1.73 sq M.predicted among blacks MDRD (S/P/Bld) [Vol rate/Area] ml/min/1.73sqm Invalid Interpretation Code Chemistry S GFR/1.73 sq M.predicted among non-blacks MDRD (S/P/Bld) [Vol rate/Area] ml/min/1.73sqm Invalid Interpretation Code Chemistry S Glucose [Mass/Vol] 92 mg/dL Invalid Interpretation Code 70 - 110 mg/dL ADM SS Hematocrit (Bld) [Volume fraction] 32.7 % Invalid Interpretation Code 40.0 - 52.0 % Workflow SS Hemoglobin (Bld) [Mass/Vol] 10.5 G/dL Invalid Interpretation Code 13.0 - 17.5 G/dL AH Workflow SS Lymphocytes (Bld) [#/Vol] 2.0 103/mcL Invalid Interpretation Code 0.9 - 4.3 10^3/mcL AH Workflow SS Lymphocytes/100 WBC (Bld) 31.3 % Invalid Interpretation Code 20.0 - 40.0 % AH Workflow SS MCH (RBC) [Entitic mass] 27.3 pg Invalid Interpretation Code 27.0 - 33.0 pg AH Workflow SS MCHC 32.0 G/dL Invalid Interpretation Code 32.0 - 36.0 G/dL AH Workflow SS MCV (RBC) [Entitic vol] 85.2 fL Invalid Interpretation Code 81.0 - 100.0 fL AH Workflow SS Monocytes (Bld) [#/Vol] 0.6 103/mcL Invalid Interpretation Code 0.1 - 1.4 10^3/mcL AH Workflow SS Monocytes/100 WBC (Bld) 8.6 % Invalid Interpretation Code 2.0 - 13.0 % AH Workflow SS Neutrophils (Bld) [#/Vol] 3.5 103/mcL Invalid Interpretation Code 2.3 - 8.1 10^3/mcL AH Workflow SS Neutrophils/100 WBC (Bld) 54.1 % Invalid Interpretation Code 50.0 - 75.0 % AH Workflow SS Platelet mean volume (Bld) [Entitic vol] 7.7 fL Invalid Interpretation Code 6.4 - 10.5 fL AH Workflow SS Platelets (Bld) [#/Vol] 335 103/mcL Invalid Interpretation Code 150 - 450 10^3/mcL AH Workflow SS Potassium [Moles/Vol] 4.4 mmol/L Invalid Interpretation Code 3.5 - 5.0 mEq/L AH ADM SS RBC (Bld) [#/Vol] 3.83 106/mcL Invalid Interpretation Code 4.50 - 6.00 10^6/mcL AH Workflow SS Sodium [Moles/Vol] 138 mmol/L Invalid Interpretation Code 136 - 145 mEq/L AH ADM SS Urea nitrogen [Mass/Vol] 10.0 mg/dL Invalid Interpretation Code 8.0 - 22.0 mg/dL AH ADM SS Urea nitrogen/Creatinine [Mass ratio] 15.9 ratio Invalid Interpretation Code 10.0 - 22.0 ratio AH ADM SS WBC (Bld) [#/Vol] 6.5 103/mcL Invalid Interpretation Code 4.5 - 10.8 10^3/mcL AH Workflow SS LABORATORYOrdered By: SYSTEM SYSTEM on 05-08-2022 Calcium [Mass/Vol] 9.2 mg/dL Invalid Interpretation Code 8.7 - 10.4 mg/dL ADM SS Chloride [Moles/Vol] 106 mmol/L Invalid Interpretation Code 98 - 110 mEq/L ADM SS CO2 [Moles/Vol] 29 mmol/L Invalid Interpretation Code 22 - 32 mEq/L ADM SS Creatinine [Mass/Vol] 0.67 mg/dL Invalid Interpretation Code 0.60 - 1.40 mg/dL ADM SS Electrolyte Balance 2.0 mEq/L Invalid Interpretation Code 4.0 - 15.0 mEq/L ADM SS GFR/1.73 sq M.predicted among blacks MDRD (S/P/Bld) [Vol rate/Area] ml/min/1.73sqm Invalid Interpretation Code Chemistry S GFR/1.73 sq M.predicted among non-blacks MDRD (S/P/Bld) [Vol rate/Area] ml/min/1.73sqm Invalid Interpretation Code Chemistry S Glucose [Mass/Vol] 131 mg/dL Invalid Interpretation Code 70 - 110 mg/dL ADM SS Potassium [Moles/Vol] 4.0 mmol/L Invalid Interpretation Code 3.5 - 5.0 mEq/L ADM SS Sodium [Moles/Vol] 137 mmol/L Invalid Interpretation Code 136 - 145 mEq/L ADM SS Urea nitrogen [Mass/Vol] 10.0 mg/dL Invalid Interpretation Code 8.0 - 22.0 mg/dL ADM SS Urea nitrogen/Creatinine [Mass ratio] 14.9 ratio Invalid Interpretation Code 10.0 - 22.0 ratio ADM SS LABORATORYOrdered By: SYSTEM SYSTEM on 05-07-2022 Basophils (Bld) [#/Vol] 0.1 103/mcL Invalid Interpretation Code 0.0 - 0.3 10^3/mcL Workflow SS Basophils/100 WBC (Bld) 1.8 % Invalid Interpretation Code 0.0 - 2.5 % Workflow SS Eosinophils (Bld) [#/Vol] 0.3 103/mcL Invalid Interpretation Code 0.0 - 0.7 10^3/mcL Workflow SS Eosinophils/100 WBC (Bld) 6.1 % Invalid Interpretation Code 0.0 - 6.0 % Workflow SS Erythrocyte distribution width (RBC) [Ratio] 19.7 % Invalid Interpretation Code 11.5 - 15.5 % AH Workflow SS Hematocrit (Bld) [Volume fraction] 30.2 % Invalid Interpretation Code 40.0 - 52.0 % AH Workflow SS Hemoglobin (Bld) [Mass/Vol] 10.0 G/dL Invalid Interpretation Code 13.0 - 17.5 G/dL AH Workflow SS Lymphocytes (Bld) [#/Vol] 1.7 103/mcL Invalid Interpretation Code 0.9 - 4.3 10^3/mcL AH Workflow SS Lymphocytes/100 WBC (Bld) 31.6 % Invalid Interpretation Code 20.0 - 40.0 % AH Workflow SS MCH (RBC) [Entitic mass] 28.0 pg Invalid Interpretation Code 27.0 - 33.0 pg AH Workflow SS MCHC 33.1 G/dL Invalid Interpretation Code 32.0 - 36.0 G/dL AH Workflow SS MCV (RBC) [Entitic vol] 84.6 fL Invalid Interpretation Code 81.0 - 100.0 fL AH Workflow SS Monocytes (Bld) [#/Vol] 0.5 103/mcL Invalid Interpretation Code 0.1 - 1.4 10^3/mcL Workflow SS Monocytes/100 WBC (Bld) 9.6 % Invalid Interpretation Code 2.0 - 13.0 % Workflow SS Neutrophils (Bld) [#/Vol] 2.7 103/mcL Invalid Interpretation Code 2.3 - 8.1 10^3/mcL Workflow SS Neutrophils/100 WBC (Bld) 50.9 % Invalid Interpretation Code 50.0 - 75.0 % Workflow SS Platelet mean volume (Bld) [Entitic vol] 7.2 fL Invalid Interpretation Code 6.4 - 10.5 fL AH Workflow SS Platelets (Bld) [#/Vol] 332 103/mcL Invalid Interpretation Code 150 - 450 10^3/mcL Workflow SS RBC (Bld) [#/Vol] 3.57 106/mcL Invalid Interpretation Code 4.50 - 6.00 10^6/mcL AH Workflow SS WBC (Bld) [#/Vol] 5.3 103/mcL Invalid Interpretation Code 4.5 - 10.8 10^3/mcL AH Workflow SS LABORATORYOrdered By: SYSTEM SYSTEM on 05-06-2022 Basophils (Bld) [#/Vol] 0.1 103/mcL Invalid Interpretation Code 0.0 - 0.3 10^3/mcL AH Workflow SS Basophils/100 WBC (Bld) 1.2 % Invalid Interpretation Code 0.0 - 2.5 % AH Workflow SS Eosinophils (Bld) [#/Vol] 0.3 103/mcL Invalid Interpretation Code 0.0 - 0.7 10^3/mcL AH Workflow SS Eosinophils/100 WBC (Bld) 5.5 % Invalid Interpretation Code 0.0 - 6.0 % AH Workflow SS Erythrocyte distribution width (RBC) [Ratio] 20.2 % Invalid Interpretation Code 11.5 - 15.5 % AH Workflow SS Hematocrit (Bld) [Volume fraction] 30.0 % Invalid Interpretation Code 40.0 - 52.0 % AH Workflow SS Hemoglobin (Bld) [Mass/Vol] 9.9 G/dL Invalid Interpretation Code 13.0 - 17.5 G/dL AH Workflow SS Lymphocytes (Bld) [#/Vol] 1.5 103/mcL Invalid Interpretation Code 0.9 - 4.3 10^3/mcL AH Workflow SS Lymphocytes/100 WBC (Bld) 28.8 % Invalid Interpretation Code 20.0 - 40.0 % AH Workflow SS MCH (RBC) [Entitic mass] 27.8 pg Invalid Interpretation Code 27.0 - 33.0 pg AH Workflow SS MCHC 33.0 G/dL Invalid Interpretation Code 32.0 - 36.0 G/dL AH Workflow SS MCV (RBC) [Entitic vol] 84.3 fL Invalid Interpretation Code 81.0 - 100.0 fL AH Workflow SS Monocytes (Bld) [#/Vol] 0.5 103/mcL Invalid Interpretation Code 0.1 - 1.4 10^3/mcL AH Workflow SS Monocytes/100 WBC (Bld) 9.3 % Invalid Interpretation Code 2.0 - 13.0 % AH Workflow SS Neutrophils (Bld) [#/Vol] 2.8 103/mcL Invalid Interpretation Code 2.3 - 8.1 10^3/mcL AH Workflow SS Neutrophils/100 WBC (Bld) 55.2 % Invalid Interpretation Code 50.0 - 75.0 % AH Workflow SS Platelet mean volume (Bld) [Entitic vol] 7.5 fL Invalid Interpretation Code 6.4 - 10.5 fL AH Workflow SS Platelets (Bld) [#/Vol] 335 103/mcL Invalid Interpretation Code 150 - 450 10^3/mcL AH Workflow SS RBC (Bld) [#/Vol] 3.56 106/mcL Invalid Interpretation Code 4.50 - 6.00 10^6/mcL AH Workflow SS WBC (Bld) [#/Vol] 5.0 103/mcL Invalid Interpretation Code 4.5 - 10.8 10^3/mcL AH Workflow SS LABORATORYOrdered By: Luis Enrique Santiago on 05-05-2022 pH (Body fld) 7.5 [pH] Invalid Interpretation Code AH Auto Chem SS pH BF Type Pleural fluid (05/05/22 10:00 AM) Invalid Interpretation Code AH Auto Chem SS Amylase BF Type Pleural fluid (05/05/22 9:00 AM) Invalid Interpretation Code AH Chemistry S Glucose Body Fluid Spec Type Pleural fluid (05/05/22 9:00 AM) Invalid Interpretation Code AH Chemistry S LDH Body Fluid Spec Type Pleural fluid (05/05/22 9:00 AM) Invalid Interpretation Code AH Chemistry S Protein BF Type Pleural fluid (05/05/22 9:00 AM) Invalid Interpretation Code AH Chemistry S LABORATORYOrdered By: SYSTEM SYSTEM on 05-05-2022 Amylase [Catalytic activity/Vol] 50 U/L Invalid Interpretation Code AH ADM SS Glucose (Body fld) [Mass/Vol] 96.0 mg/dL Invalid Interpretation Code AH ADM SS LDH (Body fld) [Catalytic activity/Vol] 228.0 1 Invalid Interpretation Code AH ADM SS Protein (Body fld) [Mass/Vol] 6.7 G/dL Invalid Interpretation Code AH ADM SS Magnesium [Mass/Vol] 1.7 mg/dL Invalid Interpretation Code 1.6 - 2.4 mg/dL AH ADM SS Troponin I.cardiac DL <= 0.01 ng/mL [Mass/Vol] ng/L Invalid Interpretation Code 0.00 - 54.00 ng/L AH ADM SS LABORATORYOrdered By: Anurag Sandra on 05-05-2022 Cells Counted Total (Unsp spec) [#] 100 Invalid Interpretation Code AH Manual Heme SS Comment BF See Below 2 (05/05/22 9:00 AM) Invalid Interpretation Code AH Manual Heme SS Comment on above: Result Comment: This specimen will be reviewed by the pathologist and an additional report will be issued under the prefix OR and cross-referenced to the Cytology specimen, if appropriate. Eosinophils/100 WBC (Body fld) 10 % Invalid Interpretation Code AH Manual Heme SS Lymphocytes/100 WBC (Body fld) 5 % Invalid Interpretation Code Manual Heme SS Monocytes+Macrophages/1 00 WBC (Body fld) 56 1 Invalid Interpretation Code AH Manual Heme SS Neutrophils/100 WBC (Body fld) 29 % Invalid Interpretation Code AH Manual Heme SS LABORATORYOrdered By: Bethany Miles on 05-05-2022 Nucleated RBC/100 WBC (Bld) [Ratio] 4494 % Invalid Interpretation Code AH Manual Heme SS Comment on above: Result Comment: This specimen will be reviewed by the pathologist and an additional report will be issued under the prefix OR and cross-referenced to the Cytology specimen, if appropriate. Specimen source Nom (Body fld) Pleural fluid (05/05/22 9:00 AM) Invalid Interpretation Code Manual Heme SS LABORATORYOrdered By: Reba Golden on 05-04-2022 Natriuretic peptide.B prohormone N-Terminal [Mass/Vol] 66 pg/mL Invalid Interpretation Code 0 - 450 pg/mL Auto Chem SS LABORATORYOrdered By: [employer] on 05-04-2022 Albumin BCP dye [Mass/Vol] 2.7 G/dL Invalid Interpretation Code 3.2 - 4.8 G/dL ADM SS Albumin/Globulin [Mass ratio] 0.4 {ratio} Invalid Interpretation Code 0.9 - 1.6 ratio AH ADM SS ALP [Catalytic activity/Vol] 88 U/L Invalid Interpretation Code 38 - 126 U/L ADM SS ALT No additional P-5'-P [Catalytic activity/Vol] 9 U/L Invalid Interpretation Code 12 - 55 U/L ADM SS AST [Catalytic activity/Vol] 21 U/L Invalid Interpretation Code 8 - 34 U/L ADM SS Bilirubin [Mass/Vol] 0.30 mg/dL Invalid Interpretation Code 0.20 - 1.20 mg/dL ADM SS CRP [Mass/Vol] 6.8 mg/dL Invalid Interpretation Code 0.0 - 1.0 mg/dL ADM SS Globulin 6.1 G/dL Invalid Interpretation Code 1.5 - 3.8 G/dL ADM SS Monocyte distribution width Auto (Bld) [Entitic vol] 19.52 Invalid Interpretation Code 0.00 - 20.00 Workflow SS Comment on above: Result Comment: For ED adult patients suspected of sepsis, MDW<=20.0 does not rule out sepsis or risk of sepsis Protein [Mass/Vol] 8.8 G/dL Invalid Interpretation Code 5.7 - 8.2 G/dL ADM SS Troponin I.cardiac DL <= 0.01 ng/mL [Mass/Vol] ng/L Invalid Interpretation Code 0.00 - 54.00 ng/L ADM SS LABORATORYOrdered By: Connie Burns on 05-04-2022 ESR 15 minute reading (Bld) [Velocity] mm/hr Invalid Interpretation Code 0 - 15 mm/hr Manual Heme SS No Panel Informationon 05-04 Culture Body Fluid Culture: No Growth a t 5 days. [facility] GS Sedimented 4+ Polymorphonuclear cells 4+ Mononuclear cells No organisms seen. [facility] Microscopic examination of blood, culture Blood Culture: No Growth at 5 days. [facility] LABORATORYOrdered By: SYSTEM SYSTEM on 04-19-2022 Basophils (Bld) [#/Vol] 0.0 103/mcL Invalid Interpretation Code 0.0 - 0.3 10^3/mcL Workflow SS Basophils/100 WBC (Bld) 0.3 % Invalid Interpretation Code 0.0 - 2.5 % Workflow SS Calcium [Mass/Vol] 8.7 mg/dL Invalid Interpretation Code 8.7 - 10.4 mg/dL ADM SS Chloride [Moles/Vol] 106 mmol/L Invalid Interpretation Code 98 - 110 mEq/L ADM SS CO2 [Moles/Vol] 27 mmol/L Invalid Interpretation Code 22 - 32 mEq/L ADM SS Creatinine [Mass/Vol] 0.66 mg/dL Invalid Interpretation Code 0.60 - 1.40 mg/dL ADM SS Electrolyte Balance 7.0 mEq/L Invalid Interpretation Code 4.0 - 15.0 mEq/L ADM SS Eosinophils (Bld) [#/Vol] 0.2 103/mcL Invalid Interpretation Code 0.0 - 0.7 10^3/mcL AH Workflow SS Eosinophils/100 WBC (Bld) 1.2 % Invalid Interpretation Code 0.0 - 6.0 % Workflow SS Erythrocyte distribution width (RBC) [Ratio] 13.8 % Invalid Interpretation Code 11.5 - 15.5 % Workflow SS GFR/1.73 sq M.predicted among blacks MDRD (S/P/Bld) [Vol rate/Area] ml/min/1.73sqm Invalid Interpretation Code Chemistry S GFR/1.73 sq M.predicted among non-blacks MDRD (S/P/Bld) [Vol rate/Area] ml/min/1.73sqm Invalid Interpretation Code Chemistry S Glucose [Mass/Vol] 84 mg/dL Invalid Interpretation Code 70 - 110 mg/dL ADM SS Hematocrit (Bld) [Volume fraction] 26.8 % Invalid Interpretation Code 40.0 - 52.0 % AH Workflow SS Hemoglobin (Bld) [Mass/Vol] 8.7 G/dL Invalid Interpretation Code 13.0 - 17.5 G/dL AH Workflow SS Lymphocytes (Bld) [#/Vol] 2.8 103/mcL Invalid Interpretation Code 0.9 - 4.3 10^3/mcL AH Workflow SS Lymphocytes/100 WBC (Bld) 20.1 % Invalid Interpretation Code 20.0 - 40.0 % AH Workflow SS Magnesium [Mass/Vol] 2.0 mg/dL Invalid Interpretation Code 1.6 - 2.4 mg/dL ADM SS MCH (RBC) [Entitic mass] 26.1 pg Invalid Interpretation Code 27.0 - 33.0 pg AH Workflow SS MCHC 32.5 G/dL Invalid Interpretation Code 32.0 - 36.0 G/dL AH Workflow SS MCV (RBC) [Entitic vol] 80.4 fL Invalid Interpretation Code 81.0 - 100.0 fL AH Workflow SS Monocytes (Bld) [#/Vol] 0.8 103/mcL Invalid Interpretation Code 0.1 - 1.4 10^3/mcL AH Workflow SS Monocytes/100 WBC (Bld) 6.0 % Invalid Interpretation Code 2.0 - 13.0 % AH Workflow SS Neutrophils (Bld) [#/Vol] 10.0 103/mcL Invalid Interpretation Code 2.3 - 8.1 10^3/mcL AH Workflow SS Neutrophils/100 WBC (Bld) 72.4 % Invalid Interpretation Code 50.0 - 75.0 % AH Workflow SS Platelet mean volume (Bld) [Entitic vol] 8.9 fL Invalid Interpretation Code 6.4 - 10.5 fL AH Workflow SS Platelets (Bld) [#/Vol] 339 103/mcL Invalid Interpretation Code 150 - 450 10^3/mcL AH Workflow SS Potassium [Moles/Vol] 4.6 mmol/L Invalid Interpretation Code 3.5 - 5.0 mEq/L AH ADM SS RBC (Bld) [#/Vol] 3.34 106/mcL Invalid Interpretation Code 4.50 - 6.00 10^6/mcL AH Workflow SS Sodium [Moles/Vol] 140 mmol/L Invalid Interpretation Code 136 - 145 mEq/L AH ADM SS Urea nitrogen [Mass/Vol] 7.0 mg/dL Invalid Interpretation Code 8.0 - 22.0 mg/dL AH ADM SS Urea nitrogen/Creatinine [Mass ratio] 10.6 ratio Invalid Interpretation Code 10.0 - 22.0 ratio AH ADM SS WBC (Bld) [#/Vol] 13.9 103/mcL Invalid Interpretation Code 4.5 - 10.8 10^3/mcL Workflow SS Laboratory - Microbiology an d Antimicrobial susceptibilityOrdered By: [facility] MICRO[facility] on 04-19-2022 Bacteria identified Cx Nom (Bld) Culture has been received in lab and is no growth to date. Culture will be held for four weeks. [facility] No Panel Informationon 04-19 Microscopic examination of blood, culture Culture has been received in lab and is no growth to date. Routine cultures are held for 5 days. [facility] LABORATORYOrdered By: SYSTEM SYSTEM on 04-18-2022 Basophils (Bld) [#/Vol] 0.1 103/mcL Invalid Interpretation Code 0.0 - 0.3 10^3/mcL Workflow SS Basophils/100 WBC (Bld) 0.3 % Invalid Interpretation Code 0.0 - 2.5 % Workflow SS Calcium [Mass/Vol] 8.3 mg/dL Invalid Interpretation Code 8.7 - 10.4 mg/dL ADM SS Chloride [Moles/Vol] 109 mmol/L Invalid Interpretation Code 98 - 110 mEq/L ADM SS CO2 [Moles/Vol] 27 mmol/L Invalid Interpretation Code 22 - 32 mEq/L AH ADM SS Creatinine [Mass/Vol] 0.62 mg/dL Invalid Interpretation Code 0.60 - 1.40 mg/dL AH ADM SS Electrolyte Balance -2.0 mEq/L Invalid Interpretation Code 4.0 - 15.0 mEq/L AH ADM SS Eosinophils (Bld) [#/Vol] 0.1 103/mcL Invalid Interpretation Code 0.0 - 0.7 10^3/mcL AH Workflow SS Eosinophils/100 WBC (Bld) 0.6 % Invalid Interpretation Code 0.0 - 6.0 % AH Workflow SS Erythrocyte distribution width (RBC) [Ratio] 14.1 % Invalid Interpretation Code 11.5 - 15.5 % AH Workflow SS GFR/1.73 sq M.predicted among blacks MDRD (S/P/Bld) [Vol rate/Area] ml/min/1.73sqm Invalid Interpretation Code Chemistry S GFR/1.73 sq M.predicted among non-blacks MDRD (S/P/Bld) [Vol rate/Area] ml/min/1.73sqm Invalid Interpretation Code Chemistry S Glucose [Mass/Vol] 92 mg/dL Invalid Interpretation Code 70 - 110 mg/dL ADM SS Hematocrit (Bld) [Volume fraction] 24.8 % Invalid Interpretation Code 40.0 - 52.0 % AH Workflow SS Hemoglobin (Bld) [Mass/Vol] 8.1 G/dL Invalid Interpretation Code 13.0 - 17.5 G/dL AH Workflow SS Lymphocytes (Bld) [#/Vol] 2.7 103/mcL Invalid Interpretation Code 0.9 - 4.3 10^3/mcL AH Workflow SS Lymphocytes/100 WBC (Bld) 16.1 % Invalid Interpretation Code 20.0 - 40.0 % AH Workflow SS Magnesium [Mass/Vol] 1.9 mg/dL Invalid Interpretation Code 1.6 - 2.4 mg/dL ADM SS MCH (RBC) [Entitic mass] 25.7 pg Invalid Interpretation Code 27.0 - 33.0 pg AH Workflow SS MCHC 32.5 G/dL Invalid Interpretation Code 32.0 - 36.0 G/dL AH Workflow SS MCV (RBC) [Entitic vol] 78.9 fL Invalid Interpretation Code 81.0 - 100.0 fL AH Workflow SS Monocytes (Bld) [#/Vol] 1.0 103/mcL Invalid Interpretation Code 0.1 - 1.4 10^3/mcL AH Workflow SS Monocytes/100 WBC (Bld) 6.2 % Invalid Interpretation Code 2.0 - 13.0 % AH Workflow SS Neutrophils (Bld) [#/Vol] 13.0 103/mcL Invalid Interpretation Code 2.3 - 8.1 10^3/mcL AH Workflow SS Neutrophils/100 WBC (Bld) 76.8 % Invalid Interpretation Code 50.0 - 75.0 % Workflow SS Platelet mean volume (Bld) [Entitic vol] 8.8 fL Invalid Interpretation Code 6.4 - 10.5 fL Workflow SS Platelets (Bld) [#/Vol] 309 103/mcL Invalid Interpretation Code 150 - 450 10^3/mcL AH Workflow SS Potassium [Moles/Vol] 4.0 mmol/L Invalid Interpretation Code 3.5 - 5.0 mEq/L ADM SS RBC (Bld) [#/Vol] 3.14 106/mcL Invalid Interpretation Code 4.50 - 6.00 10^6/mcL Workflow SS Sodium [Moles/Vol] 134 mmol/L Invalid Interpretation Code 136 - 145 mEq/L ADM SS Urea nitrogen [Mass/Vol] 6.0 mg/dL Invalid Interpretation Code 8.0 - 22.0 mg/dL ADM SS Urea nitrogen/Creatinine [Mass ratio] 9.7 ratio Invalid Interpretation Code 10.0 - 22.0 ratio ADM SS WBC (Bld) [#/Vol] 16.9 103/mcL Invalid Interpretation Code 4.5 - 10.8 10^3/mcL Workflow SS LABORATORYOrdered By: Zheng padilla Jose Armando on 04-17-2022 Natriuretic peptide.B prohormone N-Terminal [Mass/Vol] 1001 pg/mL Invalid Interpretation Code 0 - 450 pg/mL Auto Chem SS LABORATORYOrdered By: SYSTEM SYSTEM on 04-17-2022 Calcium [Mass/Vol] 8.4 mg/dL Invalid Interpretation Code 8.7 - 10.4 mg/dL ADM SS Chloride [Moles/Vol] 102 mmol/L Invalid Interpretation Code 98 - 110 mEq/L ADM SS CO2 [Moles/Vol] 24 mmol/L Invalid Interpretation Code 22 - 32 mEq/L ADM SS Creatinine [Mass/Vol] 0.62 mg/dL Invalid Interpretation Code 0.60 - 1.40 mg/dL ADM SS Electrolyte Balance 8.0 mEq/L Invalid Interpretation Code 4.0 - 15.0 mEq/L ADM SS GFR/1.73 sq M.predicted among blacks MDRD (S/P/Bld) [Vol rate/Area] ml/min/1.73sqm Invalid Interpretation Code Chemistry S GFR/1.73 sq M.predicted among non-blacks MDRD (S/P/Bld) [Vol rate/Area] ml/min/1.73sqm Invalid Interpretation Code Chemistry S Glucose [Mass/Vol] 109 mg/dL Invalid Interpretation Code 70 - 110 mg/dL AH ADM SS Potassium [Moles/Vol] 3.8 mmol/L Invalid Interpretation Code 3.5 - 5.0 mEq/L AH ADM SS Sodium [Moles/Vol] 134 mmol/L Invalid Interpretation Code 136 - 145 mEq/L AH ADM SS Urea nitrogen [Mass/Vol] 6.0 mg/dL Invalid Interpretation Code 8.0 - 22.0 mg/dL AH ADM SS Urea nitrogen/Creatinine [Mass ratio] 9.7 ratio Invalid Interpretation Code 10.0 - 22.0 ratio AH ADM SS No Panel Informationon 04-17 Microscopic examination of blood, culture Culture has been received in lab and is no growth to date. Routine cultures are held for 5 days. [facility] LABORATORYOrdered By: SYSTEM SYSTEM on 04-16-2022 Basophils (Bld) [#/Vol] 0.0 103/mcL Invalid Interpretation Code 0.0 - 0.3 10^3/mcL Workflow SS Basophils/100 WBC (Bld) 0.3 % Invalid Interpretation Code 0.0 - 2.5 % Workflow SS Eosinophils (Bld) [#/Vol] 0.1 103/mcL Invalid Interpretation Code 0.0 - 0.7 10^3/mcL Workflow SS Eosinophils/100 WBC (Bld) 0.4 % Invalid Interpretation Code 0.0 - 6.0 % Workflow SS Erythrocyte distribution width (RBC) [Ratio] 14.3 % Invalid Interpretation Code 11.5 - 15.5 % Workflow SS Hematocrit (Bld) [Volume fraction] 24.7 % Invalid Interpretation Code 40.0 - 52.0 % Workflow SS Hemoglobin (Bld) [Mass/Vol] 8.2 G/dL Invalid Interpretation Code 13.0 - 17.5 G/dL Workflow SS Lymphocytes (Bld) [#/Vol] 2.3 103/mcL Invalid Interpretation Code 0.9 - 4.3 10^3/mcL Workflow SS Lymphocytes/100 WBC (Bld) 15.4 % Invalid Interpretation Code 20.0 - 40.0 % AH Workflow SS Magnesium [Mass/Vol] 1.5 mg/dL Invalid Interpretation Code 1.6 - 2.4 mg/dL AH ADM SS MCH (RBC) [Entitic mass] 25.9 pg Invalid Interpretation Code 27.0 - 33.0 pg AH Workflow SS MCHC 33.2 G/dL Invalid Interpretation Code 32.0 - 36.0 G/dL AH Workflow SS MCV (RBC) [Entitic vol] 78.1 fL Invalid Interpretation Code 81.0 - 100.0 fL AH Workflow SS Monocytes (Bld) [#/Vol] 1.4 103/mcL Invalid Interpretation Code 0.1 - 1.4 10^3/mcL AH Workflow SS Monocytes/100 WBC (Bld) 9.5 % Invalid Interpretation Code 2.0 - 13.0 % AH Workflow SS Neutrophils (Bld) [#/Vol] 10.9 103/mcL Invalid Interpretation Code 2.3 - 8.1 10^3/mcL AH Workflow SS Neutrophils/100 WBC (Bld) 74.4 % Invalid Interpretation Code 50.0 - 75.0 % AH Workflow SS Platelet mean volume (Bld) [Entitic vol] 9.3 fL Invalid Interpretation Code 6.4 - 10.5 fL AH Workflow SS Platelets (Bld) [#/Vol] 227 103/mcL Invalid Interpretation Code 150 - 450 10^3/mcL AH Workflow SS RBC (Bld) [#/Vol] 3.16 106/mcL Invalid Interpretation Code 4.50 - 6.00 10^6/mcL AH Workflow SS WBC (Bld) [#/Vol] 14.6 103/mcL Invalid Interpretation Code 4.5 - 10.8 10^3/mcL AH Workflow SS LABORATORYOrdered By: SYSTEM SYSTEM on 04-15-2022 HAV IgM IA Ql Non-Reactive (04/15/22 4:49 AM) Invalid Interpretation Code Non-Reacti ve [facility] SS HBV core IgM IA Ql Non-Reactive (04/15/22 4:49 AM) Invalid Interpretation Code Non-Reacti ve [facility] SS HBV surface Ag IA Ql Non-Reactive (04/15/22 4:49 AM) Invalid Interpretation Code Non-Reacti ve [facility] SS HIV 1/2 Ab Non-Reactive (04/15/22 4:49 AM) Invalid Interpretation Code Non-Reacti ve [facility] SS LABORATORYOrdered By: Luis Enrique Santiago on 04-15-2022 HAV IgM IA Ql No serological evide nce of a current Hepatitis A infection. Invalid Interpretation Code Chemistry S HBV core IgM IA Ql Samples with a value < 0.80 Index are considered nonreactive (negative) for IgM antibodies to hepatitis B core antigen. Invalid Interpretation Code Chemistry S HCV Ab IA Ql Reactive *ABN* (04/15/22 4:49 AM) Invalid Interpretation Code Non-Reacti ve ADM SS HCV Ab IA Ql Reactive: Samples wi th a value >/= 1.00 index are considered reactive for IgG antibodies to HCV. The presence of anti-HCV may be indicative of recent and/or past infection by Hepatitis C Virus. PATIENT MAY BE INFECTIONS. PLEASE INFORM MUSHROOM PACKER. Supplemental testing for HCV RNA may detect the presence of active HCV infection. This result is a reportable disease Infection Control has been notified. Invalid Interpretation Code Chemistry S HIV 1+2 Ab IA Ql Negative Invalid Interpretation Code Chemistry S LABORATORYOrdered By: Pamela Jones on 04-15-2022 Reagin Ab RPR Ql (S) Non-Reactive (04/15/22 4:49 AM) Invalid Interpretation Code Non-Reacti ve Man Viro/Sero SS LABORATORYOrdered By: Yoon Robertson on 04-14-2022 Lactate [Moles/Vol] 1.7 mmol/L Invalid Interpretation Code 0.2 - 2.0 mmol/L Auto Chem SS LABORATORYOrdered By: SYSTEM SYSTEM on 04-14-2022 Albumin BCP dye [Mass/Vol] 1.5 G/dL Invalid Interpretation Code 3.2 - 4.8 G/dL ADM SS Albumin/Globulin [Mass ratio] 0.3 {ratio} Invalid Interpretation Code 0.9 - 1.6 ratio ADM SS ALP [Catalytic activity/Vol] 154 U/L Invalid Interpretation Code 38 - 126 U/L ADM SS ALT No additional P-5'-P [Catalytic activity/Vol] 78 U/L Invalid Interpretation Code 12 - 55 U/L ADM SS AST [Catalytic activity/Vol] 53 U/L Invalid Interpretation Code 8 - 34 U/L ADM SS Bilirubin [Mass/Vol] 0.70 mg/dL Invalid Interpretation Code 0.20 - 1.20 mg/dL ADM SS Ferritin [Mass/Vol] 594.0 ng/mL Invalid Interpretation Code 26.0 - 388.0 ng/mL ADM SS Globulin 5.1 G/dL Invalid Interpretation Code 1.5 - 3.8 G/dL ADM SS Iron [Mass/Vol] 15 ug/dL Invalid Interpretation Code 65 - 175 mcg/dL ADM SS Iron binding capacity [Mass/Vol] 189 mcg/dL Invalid Interpretation Code 250 - 500 mcg/dL ADM SS Iron saturation [Mass fraction] 8 1 Invalid Interpretation Code ADM SS Protein [Mass/Vol] 6.6 G/dL Invalid Interpretation Code 5.7 - 8.2 G/dL ADM SS Troponin I.cardiac DL <= 0.01 ng/mL [Mass/Vol] 2.69 ng/L Invalid Interpretation Code 0.00 - 54.00 ng/L ADM SS LABORATORYOrdered By: Marleen Leary on 04-14-2022 INR Coag (PPP) [Relative time] 1.5 {INR} Invalid Interpretation Code Auto Coag SS PT Coag (PPP) [Time] 18.2 s Invalid Interpretation Code 9.0 - 14.9 seconds Auto Coag SS LABORATORYOrdered By: Luis Enrique Santiago on 04-14-2022 Lactate [Moles/Vol] 0.9 mmol/L Invalid Interpretation Code 0.2 - 2.0 mmol/L Auto Chem SS LABORATORYOrdered By: Jarad Stern on 04-14-2022 M. pneumoniae IgM IA Ql (S) Negative (04/14/22 5:08 AM) Invalid Interpretation Code Man Viro/Sero SS LABORATORYOrdered By: Reed Zapata on 04-14-2022 Mycoplasma IgG Negative Invalid Interpretation Code Auto Viro/Sero SS No Panel Informationon 04-14 GSANA Gram Positive Cocci in clusters [facility] Microscopic examination of blood, culture Staphylococcus aureus Isolated from anaerobe bottle only. Refer to previous culture for susceptibility. [id number] collected 04/13/2022 Staphylococcus aureus #2 Isolated from anaerobe bottle only. Refer to previous culture for susceptibility. [id number] collected 04/13/2022 [facility] Microscopic examination of blood, culture Blood Culture: No Growth at 5 days. [facility] No Panel Informationon 04-13 Legionella Urine Ag Presumptive negative for L. pneumophila serogroup 1 antigen in urine, suggesting no recent or current infection. Legionnaire's disease cannot be ruled out since other serogroups and species may also cause disease. [facility] Miscellaneous Micro Complete reference l ab report scanned to EMR. Streptococcus pneumoniae Antigen Urine= Negative Testing performed at: [place] [address] Chisel Grinder:Jf Colón III, MD [facility] Vital Signs Date Time Vital Sign Value Performing Clinician Facility 10-29-2024 22:58-0400 SaO2% (BldA) [Mass fraction] 94.1 % JOSEP DESHPANDE MD [facility] 10-12-2024 08:15-0400 SaO2% (BldA) [Mass fraction] 98.9 % JOSEP DESHPANDE MD [facility] 10-11-2024 17:54-0400 SaO2% (BldA) [Mass fraction] 99.3 % JOSEP DESHPANDE MD [facility] 05-22-2024 16:47-0500 Diastolic Blood Pressure Non-Invasive 88 mm[Hg] ANURAG TRUJILLO DO [facility] 05-22-2024 16:47-0500 Heart rate 100 /min ANURAG TRUJILLO DO [facility] 05-22-2024 16:47-0500 Respiratory rate 16 /min ANURAG TRUJILLO DO [facility] 05-22-2024 16:47-0500 Systolic Blood Pressure Non-Invasive 124 mm[Hg] ANURAG TRUJILLO DO [facility] 05-22-2024 16:31-0500 Diastolic Blood Pressure Non-Invasive 92 mm[Hg] ANURAG TRUJILLO DO [facility] 05-22-2024 16:31-0500 Heart rate 98 /min ANURAG CASSANDRA DO [facility] 05-22-2024 16:31-0500 Respiratory rate 16 /min ANURAG CASSANDRA DO [facility] 05-22-2024 16:31-0500 Systolic Blood Pressure Non-Invasive 132 mm[Hg] ANURAGHIREN TRUJILLO DO [facility] 05-22-2024 16:00-0500 Diastolic Blood Pressure Non-Invasive 90 mm[Hg] ANURAG CASSANDRA DO [facility] 05-22-2024 16:00-0500 Heart rate 103 /min ANURAGHIREN TRUJILLO DO [facility] 05-22-2024 16:00-0500 Respiratory rate 14 /min ANURAG TRUJILLO DO [facility] 05-22-2024 16:00-0500 Systolic Blood Pressure Non-Invasive 127 mm[Hg] ANURAG CASSANDRA DO [facility] 05-22-2024 14:57-0500 Body height 180 cm ANURAGHIREN TRUJILLO DO [facility] 05-22-2024 14:57-0500 Body temperature 98.6 [degF] ANURAGHIREN TRUJILLO DO [facility] 05-22-2024 14:57-0500 Body weight 68.4 kg ANURAG CASSANDRA DO [facility] 06-21-2023 13:59-0500 Body height 175.3 cm Soham Landaverde MD Work Phone: [facility] 06-21-2023 13:59-0500 Body temperature 97.5 [degF] Soham Landaverde MD Work Phone: [facility] 06-21-2023 13:59-0500 Body weight 55.5 kg Soham Landaverde MD Work Phone: [facility] 06-21-2023 13:59-0500 Diastolic blood pressure 70 mm[Hg] Soham Landaverde MD Work Phone: [facility] 06-21-2023 13:59-0500 Heart rate 100 /min Soham Landaverde MD Work Phone: [facility] 06-21-2023 13:59-0500 SaO2% (BldA) [Mass fraction] 99 % Soham Landaverde MD Work Phone: [facility] 06-21-2023 13:59-0500 Systolic blood pressure 110 mm[Hg] Soham Landaverde MD Work Phone: [facility] 05-07-2023 23:14-0500 Body temperature 98.78 [degF] CASEY PERRIN MD [facility] 05-07-2023 23:14-0500 Diastolic Blood Pressure Non-Invasive 99 mm[Hg] CASEY PERRIN MD [facility] 05-07-2023 23:14-0500 Heart rate 99 /min CASEY PERRIN MD [facility] 05-07-2023 23:14-0500 Reason For Taking VItal Signs CASEY PERRIN MD [facility] 05-07-2023 23:14-0500 Respiratory rate 18 /min CASEY PERRIN MD [facility] 05-07-2023 23:14-0500 Systolic Blood Pressure Non-Invasive 141 mm[Hg] CASEY PERRIN MD [facility] 05-07-2023 19:58-0500 Blood Pressure Cuff Size CASEY PERRIN MD [facility] 05-07-2023 19:58-0500 Blood Pressure Location CASEY PERRIN MD [address] [place] [address] 05-07-2023 19:58-0500 Blood Pressure Method CASEY PERRIN MD [address] [place] [address] 05-07-2023 19:58-0500 Body temperature 98.96 [degF] CASEY PERRIN MD [address] [place] [address] 05-07-2023 19:58-0500 Diastolic Blood Pressure Non-Invasive 100 mm[Hg] CASEY PERRIN MD [address] [place] [address] 05-07-2023 19:58-0500 Heart rate 98 /min CASEY PERRIN MD [address] [place] [address] 05-07-2023 19:58-0500 Mean blood pressure 112 mm[Hg] CASEY PERRIN MD [address] [place] [address] 05-07-2023 19:58-0500 Reason For Taking VItal Signs CASEY PERRIN MD [address] [place] [address] 05-07-2023 19:58-0500 Respiratory rate 18 /min CASEY PERRIN MD [address] [place] [address] 05-07-2023 19:58-0500 Systolic Blood Pressure Non-Invasive 142 mm[Hg] CASEY PERRIN MD [address] [place] [address] 05-07-2023 17:20-0500 Heart rate 98 /min CASEY PERRIN MD [address] [place] [address] 05-07-2023 15:08-0500 Body temperature 98.78 [degF] CASEY PERRIN MD [address] [place] [address] 05-07-2023 15:08-0500 Diastolic Blood Pressure Non-Invasive 90 mm[Hg] CASEY PERRIN MD [address] [place] [address] 05-07-2023 15:08-0500 Heart rate 98 /min CASEY PERRIN MD [address] [place] [address] 05-07-2023 15:08-0500 Respiratory rate 18 /min CASEY PERRIN MD [address] [place] [address] 05-07-2023 15:08-0500 Systolic Blood Pressure Non-Invasive 141 mm[Hg] CASEY PERRIN MD [address] [place] [address] 05-07-2023 13:15-0500 Heart rate 98 /min CASEY PERRIN MD [address] 05-07-2023 12:15-0500 Heart rate 90 /min CASEY PERRIN MD [address] [place] [address] 05-07-2023 09:05-0500 Heart rate 102 /min CASEY PERRIN MD [address] [place] [address] 05-07-2023 02:54-0500 Heart rate 99 /min CASEY PERRIN MD [address] [place] [address] 05-07-2023 02:54-0500 Reason For Taking VItal Signs CASEY PERRIN MD [address] [place] [address] 05-06-2023 16:47-0500 Heart rate 100 /min CASEY PERRIN MD [address] [place] [address] 05-05-2023 19:03-0500 Mean blood pressure 100 mm[Hg] CASEY PERRIN MD [address] [place] [address] 05-05-2023 15:22-0500 Mean blood pressure 107 mm[Hg] CASEY PERRIN MD [address] [place] [address] 05-03-2023 22:49-0500 Blood Pressure Cuff Size CASEY PERRIN MD [address] [place] [address] 05-03-2023 22:49-0500 Blood Pressure Location CASEY PERRIN MD [address] [place] [address] 05-03-2023 22:49-0500 Blood Pressure Method CASEY PERRIN MD [facility] 05-03-2023 19:07-0500 Blood Pressure Cuff Size CASEY PERRIN MD [facility] 05-03-2023 19:07-0500 Blood Pressure Location CASEY PERRIN MD [facility] 05-03-2023 19:07-0500 Blood Pressure Method CASEY PERRIN MD [address] [place] [address] 04-28-2023 22:08-0500 Body height 175.3 cm CASEY PERRIN MD [address] [place] [address] 04-28-2023 22:08-0500 Body weight 59.1 kg CASEY PERRIN MD [address] [place] [address] 04-28-2023 22:08-0500 Body weight 19.23 kg/m2 CASEY PERRIN MD [facility] 04-28-2023 20:50-0500 Diastolic Blood Pressure Non-Invasive 72 mm[Hg] KELSEY REICHFIELD DO [facility] 04-28-2023 20:50-0500 Heart rate 121 /min KELSEY REICHClinked DO [facility] 04-28-2023 20:50-0500 Reason For Taking VItal Signs KELSEY REICHFIELD DO [facility] 04-28-2023 20:50-0500 Respiratory rate 20 /min KELSEY REICHFIELD DO [facility] 04-28-2023 20:50-0500 Systolic Blood Pressure Non-Invasive 99 mm[Hg] KELSEY REICHFIELD DO [facility] 04-28-2023 20:24-0500 Diastolic Blood Pressure Non-Invasive 80 mm[Hg] KELSEY REICHFIELD DO [facility] 04-28-2023 20:24-0500 Heart rate 122 /min KELSEY REICHFIELD DO [facility] 04-28-2023 20:24-0500 Reason For Taking VItal Signs KELSEY REICHFIELD DO [facility] 04-28-2023 20:24-0500 Respiratory rate 22 /min KELSEY REICHFIELD DO [facility] 04-28-2023 20:24-0500 Systolic Blood Pressure Non-Invasive 103 mm[Hg] KELSEY REICHFIELD DO [facility] 04-28-2023 19:59-0500 Diastolic Blood Pressure Non-Invasive 77 mm[Hg] KELSEY REICHFIELD DO [facility] 04-28-2023 19:59-0500 Heart rate 121 /min KELSEY REICHFIELD DO [facility] 04-28-2023 19:59-0500 Reason For Taking VItal Signs KELSEY REICHFIELD DO [facility] 04-28-2023 19:59-0500 Respiratory rate 20 /min KELSEY REICHFIELD DO [facility] 04-28-2023 19:59-0500 Systolic Blood Pressure Non-Invasive 91 mm[Hg] KELSEY REICHFIELD DO [facility] 04-28-2023 18:17-0500 Heart rate 114 /min KELSEY REICHFIELD DO [facility] 04-28-2023 18:12-0500 Heart rate 117 /min KELSEY REICHFIELD DO [facility] 04-28-2023 16:54-0500 Body temperature 98.78 [degF] KELSEY REICHFIELD DO [facility] 04-28-2023 16:54-0500 Heart rate 114 /min KELSEY REICHFIELD DO [facility] 04-28-2023 11:54-0500 Body temperature 100.58 [degF] KELSEY REICHFIELD DO [facility] 04-28-2023 07:02-0500 Body temperature 98.24 [degF] KELSEY REICHFIELD DO [facility] 04-28-2023 06:50-0500 Blood Pressure Cuff Size KELSEY REICHFIELD DO [facility] 04-28-2023 06:50-0500 Blood Pressure Location KELSEY REICHFIELD DO [facility] 04-28-2023 06:50-0500 Blood Pressure Method KELSEY REICHFIELD DO [facility] 04-28-2023 06:50-0500 Body height 175.3 cm KELSEY REICHFIELD DO [facility] 04-28-2023 06:50-0500 Body weight 59.1 kg KELSEY REICHFIELD DO [facility] 01-14-2023 02:22-0400 Blood Pressure Cuff Size KELSEY REICHFIELD DO [facility] 01-14-2023 02:22-0400 Blood Pressure Location KELSEY REICHFIELD DO [facility] 01-14-2023 02:22-0400 Blood Pressure Method KELSEY REICHFIELD DO [facility] 01-14-2023 02:22-0400 Body height 175.3 cm KELSEY JACKSON DO [facility] 01-14-2023 02:22-0400 Body temperature 98.78 [degF] [facility] 01-14-2023 02:22-0400 Body weight 59.1 kg [facility] 01-14-2023 02:22-0400 Diastolic Blood Pressure Non-Invasive 105 1 [facility] 01-14-2023 02:22-0400 Heart rate 77 /min [facility]TACO [facility] 01-14-2023 02:22-0400 Reason For Taking VItal Signs [facility] 01-14-2023 02:22-0400 Respiratory rate 18 /min [facility] 01-14-2023 02:22-0400 Systolic Blood Pressure Non-Invasive 142 1 [facility] 07-13-2022 06:12-0400 Diastolic blood pressure 89 mm[Hg] [facility] 07-13-2022 06:12-0400 Heart rate 97 /min [facility] 07-13-2022 06:12-0400 Respiratory rate 18 /min [facility] 07-13-2022 06:12-0400 SaO2% (BldA) [Mass fraction] 99 % [facility] 07-13-2022 06:12-0400 Systolic blood pressure 140 mm[Hg] [facility] 07-13-2022 04:21-0400 Body height 175.26 cm [facility] 07-13-2022 04:21-0400 Body mass index (BMI) [Ratio] 18.9 kg/m2 [facility] 07-13-2022 04:21-0400 Body temperature 97.1 [degF] [facility] 07-13-2022 04:21-0400 Body weight 58.2 kg [facility] 05-10-2022 16:23-0500 Body temperature 97.88 [degF] DR SHARIF HERBERT MD [address] [place] [address] 05-10-2022 16:23-0500 Diastolic Blood Pressure Non-Invasive [address] SHARIF HERBERT MD [address] [place] [address] 05-10-2022 16:23-0500 Heart rate 97 /min DR SHARIF HERBERT MD [address] [place] [address] 05-10-2022 16:23-0500 Respiratory rate 16 /min DR SHARIF HERBERT MD [address] [place] [address] 05-10-2022 16:23-0500 Systolic Blood Pressure Non-Invasive [address] SHARIF HERBERT MD [address] 05-10-2022 07:24-0500 Body temperature 97.88 [degF] DR SHARIF HERBERT MD [address] 05-10-2022 07:24-0500 Diastolic Blood Pressure Non-Invasive [address] SHARIF HERBERT MD [address] [place] [address] 05-10-2022 07:24-0500 Heart rate 80 /min DR SHARIF HERBERT MD [address] [place] [address] 05-10-2022 07:24-0500 Respiratory rate 16 /min DR SHARIF HERBERT MD [address] [place] [address] 05-10-2022 07:24-0500 Systolic Blood Pressure Non-Invasive [address] SHARIF HERBERT MD [address] [place] [address] 05-09-2022 21:07-0500 Heart rate 104 /min DR SHARIF HERBERT MD [address] [place] [address] 05-09-2022 20:36-0500 Body temperature 98.6 [degF] DR SHARIF HERBERT MD [address] [place] [address] 05-09-2022 20:36-0500 Diastolic Blood Pressure Non-Invasive [address] SHRAIF HERBERT MD [address] [place] [address] 05-09-2022 20:36-0500 Heart rate 111 /min DR SHARIF HERBERT MD [address] [place] [address] 05-09-2022 20:36-0500 Respiratory rate 16 /min DR SHARIF HERBERT MD [address] [place] [address] 05-09-2022 20:36-0500 Systolic Blood Pressure Non-Invasive [address] SHARIF HERBERT MD [address] [place] [address] 05-09-2022 08:06-0500 Heart rate 106 /min DR SHARIF HERBERT MD [address] [place] [address] 05-08-2022 21:46-0500 Heart rate 104 /min DR SHARIF HERBERT MD [address] [place] [address] 05-08-2022 17:25-0500 Reason For Taking VItal Signs DR SHARIF HERBERT MD [address] [place] [address] 05-08-2022 05:42-0500 Reason For Taking VItal Signs DR SHARIF HERBERT MD [address] [place] [address] 05-07-2022 21:42-0500 Reason For Taking VItal Signs DR SHARIF HERBERT MD [address] [place] [address] 05-07-2022 21:24-0500 Heart rate 104 /min DR SHARIF HERBERT MD [address] [place] [address] 05-05-2022 02:20-0500 Body height 175.[address] SHARIF HERBERT MD [address] [place] [address] 05-05-2022 02:20-0500 Body weight [address] SHARIF HERBERT MD [address] [place] [address] 05-05-2022 02:20-0500 Body weight 17.9 kg/m2 DR SHARIF HERBERT MD [address] [place] [address] 05-05-2022 00:17-0500 Heart rate 100 /min DR SHARIF HERBERT MD [address] [place] [address] 05-04-2022 11:27-0500 Body weight [address] SHARIF HERBERT MD [address] [place] [address] 04-21-2022 11:11-0500 Body temperature 98.42 [degF] LONNIE BARBER MD [address] [place] [address] 04-21-2022 11:11-0500 Diastolic Blood Pressure Non-Invasive 96 1 LONNIE BARBER MD [address] [place] [address] 04-21-2022 11:11-0500 Heart rate 106 /min LONNIE BARBER MD [address] [place] [address] 04-21-2022 11:11-0500 Systolic Blood Pressure Non-Invasive 137 1 LONNIE BARBER MD [address] [place] [address] 04-21-2022 06:47-0500 Body temperature 98.78 [degF] LONNIE BARBER MD [address] [place] [address] 04-21-2022 06:47-0500 Diastolic Blood Pressure Non-Invasive 89 1 LONNIE BARBER MD [address] [place] [address] 04-21-2022 06:47-0500 Heart rate 92 /min LONNIE BARBER MD [address] [place] [address] 04-21-2022 06:47-0500 Respiratory rate 16 /min LONNIE BARBER MD [address] [place] [address] 04-21-2022 06:47-0500 Systolic Blood Pressure Non-Invasive 133 1 LONNIE BARBER MD [address] [place] [address] 04-21-2022 05:05-0500 Body temperature 98.24 [degF] LONNIE BARBER MD [address] [place] [address] 04-21-2022 05:05-0500 Diastolic Blood Pressure Non-Invasive 82 1 LONNIE BARBER MD [address] [place] [address] 04-21-2022 05:05-0500 Heart rate 90 /min LONNIE BARBER MD [address] [place] [address] 04-21-2022 05:05-0500 Reason For Taking VItal Signs LONNIE BARBER MD [address] [place] [address] 04-21-2022 05:05-0500 Respiratory rate 16 /min LONNIE BARBER MD [address] [place] [address] 04-21-2022 05:05-0500 Systolic Blood Pressure Non-Invasive 127 1 LNONIE BARBER MD [address] [place] [address] 04-21-2022 00:25-0500 Reason For Taking VItal Signs LONNIE BARBER MD [address] [place] [address] 04-21-2022 00:25-0500 Respiratory rate 18 /min LONNIE BARBER MD [address] [place] [address] 04-20-2022 18:24-0500 Reason For Taking VItal Signs LONNIE BARBER MD [address] 04-20-2022 07:10-0500 Body temperature 98.96 [degF] LONNIE BARBER MD [address] [place] [address] 04-20-2022 04:41-0500 Blood Pressure Location LONNIE BARBER MD [address] [place] [address] 04-20-2022 04:41-0500 Blood Pressure Method LONNIE BARBER MD [address] 04-20-2022 04:41-0500 Body temperature 98.24 [degF] LONNIE BARBER MD [address] 04-20-2022 04:41-0500 Heart rate 88 /min LONNIE BARBER MD [address] [place] [address] 04-20-2022 04:41-0500 Mean blood pressure 103 mm[Hg] LONNIE BARBER MD [address] [place] [address] 04-19-2022 22:58-0500 Heart rate 106 /min LONNIE BARBER MD [address] [place] [address] 04-19-2022 19:04-0500 Heart rate 97 /min ANS ELISABETH COLBERT [address] [place] [address] 04-19-2022 16:40-0500 Heart rate 108 /min ANS ELISABETH COLBERT [address] [place] [address] 04-19-2022 03:57-0500 Heart rate 89 /min ANS ELISABETH COLBERT [address] [place] [address] 04-18-2022 23:01-0500 Heart rate 112 /min ANS ELISABETH COLBERT [address] [place] [address] 04-18-2022 12:16-0500 Blood Pressure Cuff Size ANS ELISABETH COLBERT [address] [place] [address] 04-18-2022 12:16-0500 Blood Pressure Location ANS ELISABETH COLBERT [address] [place] [address] 04-18-2022 12:16-0500 Blood Pressure Method LONNIE BARBER MD [address] [place] [address] 04-18-2022 12:16-0500 Mean blood pressure 98 mm[Hg] LONNIE BARBER MD [address] [place] [address] 04-18-2022 07:38-0500 Blood Pressure Location LONNIE BARBER MD [address] [place] [address] 04-18-2022 07:38-0500 Blood Pressure Method LONNIE BARBER MD [address] [place] [address] 04-17-2022 12:54-0500 Blood Pressure Cuff Size LONNIE BARBER MD [address] [place] [address] 04-17-2022 12:54-0500 Mean blood pressure 100 mm[Hg] LONNIE BARBER MD [address] [place] [address] 04-13-2022 21:31-0500 Body height 175.3 cm LONNIE BARBER MD [facility] 04-13-2022 21:31-0500 Body weight 53.8 kg LONNIE BARBER MD [facility] 04-13-2022 21:31-0500 Body weight 17.51 kg/m2 ANS ELISABETH COLBERT [facility] 04-06-2022 09:13-0500 Blood Pressure Location NEGRITA THOMAS MD [facility] 04-06-2022 09:13-0500 Blood Pressure Method NEGRITA THOMAS MD [facility] 04-06-2022 09:13-0500 Body temperature 99.32 [degF] NEGRITA THOMAS MD [facility] 04-06-2022 09:13-0500 Diastolic Blood Pressure Non-Invasive 65 1 NEGRITA THOMAS MD [facility] 04-06-2022 09:13-0500 Heart rate 130 /min NEGRITA THOMAS MD [facility] 04-06-2022 09:13-0500 Respiratory rate 25 /min NEGRITA THOMAS MD [facility] 04-06-2022 09:13-0500 Systolic Blood Pressure Non-Invasive 108 1 NEGRITA THOMAS MD [facility] 11-14-2021 02:19-0400 Diastolic blood pressure 86 mm[Hg] JS MIRANDA MD [facility] 11-14-2021 02:19-0400 Heart rate 82 /min JS MIRANDA MD [facility] 11-14-2021 02:19-0400 Respiratory rate 16 /min JS MIRANDA MD [facility] 11-14-2021 02:19-0400 Systolic blood pressure 133 mm[Hg] JS MIRANDA MD [facility] 11-14-2021 01:18-0400 Diastolic blood pressure 73 mm[Hg] JS MIRANDA MD [facility] 11-14-2021 01:18-0400 Heart rate 95 /min JS MIRANDA MD [facility] 11-14-2021 01:18-0400 Respiratory rate 15 /min JS MIRANDA MD [facility] 11-14-2021 01:18-0400 Systolic blood pressure 119 mm[Hg] JS MIRANDA MD [facility] 11-14-2021 00:14-0400 Diastolic blood pressure 80 mm[Hg] JS MIRANDA MD [facility] 11-14-2021 00:14-0400 Heart rate 95 /min JS MIRANDA MD [facility] 11-14-2021 00:14-0400 Respiratory rate 16 /min JS MIRANDA MD [facility] 11-14-2021 00:14-0400 Systolic blood pressure 118 mm[Hg] JS MIRANDA MD [facility] 11-13-2021 23:44-0400 Body temperature 97.34 [degF] JS MIRANDA MD [facility] 11-13-2021 23:44-0400 Heart rate 96 /min JS MIRANDA MD [facility] Encounters Encounter Date Encounter Type Care Provider Facility Start: 11-07-2024 End: 11-07-2024 ambulatory PATIENT UNSURE PHYSICIAN Facility:A Start: 11-07-2024 End: 11-07-2024 Patient encounter procedure KIKA MESSINA MD [facility] Start: 09-22-2024 End: 11-01-2024 Evaluation and management of inpatient JOSEP DESHPANDE MD [facility] Start: 09-22-2024 End: 09-22-2024 Emergency department patient visit JONY STEWART MD [facility] Start: 06-30-2024 End: 06-30-2024 ambulatory Roman Yee MD Work Phone: Cardiology Start: 06-23-2024 End: 06-23-2024 ambulatory Roman Yee MD Work Phone: Cardiology Start: 06-23-2024 End: 06-23-2024 Follow-up encounter Roman Yee MD Work Phone: Cardiology Comment on above: [facility] follow up Start: 05-22-2024 End: 05-22-2024 Emergency department patient visit ANURAG TRUJILLO [facility] Start: 10-11-2023 ambulatory Sherie Zepeda Facility :[facility] Start: 09-17-2023 ambulatory Roman Tenorio Work Phone: Cardiology Start: 09-17-2023 Follow-up encounter Roman goodman MD Work Phone: Cardiology Comment on above: [facility] follow up Start: 09-10-2023 ambulatory Roman Tenorio Work Phone: Cardiology Start: 09-10-2023 Follow-up encounter Roman goodman MD Work Phone: Cardiology Comment on above: [facility] follow up Start: 07-22-2023 ambulatory Troy tsory MD Work Phone: [facility] Start: 07-22-2023 Patient encounter procedure Troy Gomez MD Work Phone: Infectious Disease Comment on above: CoPat Stop; Appointm ent Cancelled Start: 07-08-2023 End: 07-09-2023 ambulatory MELISSA eLnnon [facility] Start: 07-08-2023 End: 07-08-2023 Subsequent hospital visit by physician Par Ir 1 [facility] Comment on above: Acute and subacute e ndocarditis, unspecified Start: 07-05-2023 Specialty Pharmacy [facility] Comment on above: SPP Hepatology - Med ication Refill ([facility] final fill) Start: 06-25-2023 ambulatory Roman Tenorio Work Phone: [facility] Start: 06-25-2023 Follow-up encounter Roman goodman MD Work Phone: Cardiology Comment on above: [facility] follow up Start: 06-24-2023 ambulatory Anurag Bonita [facility] Infecti ous Disease Comment on above: [facility] Management Start: 06-24-2023 Telephone encounter Troy flood MD Work Phone: Infectious Disease Comment on above: Release Of Medical R ecords Start: 06-21-2023 End: 06-21-2023 Patient encounter procedure Soham Landaverde MD Work Phone: Gastroenterology Comment on above: Chronic hepatitis C without hepatic coma (HCC) (Primary Dx) Start: 06-21-2023 End: 06-21-2023 Subsequent hospital visit by physician Xr Chest Main J1 Work Phone: Radiology Comment on above: Surgery follow-up [Z 09] Start: 06-20-2023 ambulatory Troy story MD Work Phone: Infectious Disease Comment on above: Outside Lab Results Start: 06-14-2023 ambulatory Troy story MD Work Phone: Infectious Disease Comment on above: [facility] Agency Opened In Error [facility] Intake Start: 06-10-2023 Orders Only Snehal baker MD Work Phone: Gastroenterology Start: 06-03-2023 Orders Only Richy Lim MD Work Phone: Cardiology Comment on above: 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 Start: 01-14-2023 End: 01-14-2023 Emergency department patient visit DR REBA CHIRINOS MD Facility:B Start: 01-14-2023 End: 01-14-2023 [facility] Start: 07-13-2022 End: 07-13-2022 Emergency department patient visit [facility] Start: 06-25-[address] KATY IBRAHIM MD Facility:B Start: 05-04-2022 End: 05-10-2022 Evaluation and management of inpatient DR SHARIF HERBERT MD [facility] Start: 04-13-2022 End: 04-21-2022 Evaluation and management of inpatient ANS ELISABETH COLBERT [facility] Start: 04-06-2022 End: 04-06-2022 Emergency department patient visit NEGRITA THOMAS MD [facility] Start: 11-13-2021 End: 11-14-2021 Emergency department patient visit JS MIRANDA MD [facility] Procedures Date Procedure Procedure Detail Performing Clinician Start: 10-05-2024 Implantation of card iac pacemaker JOSEP DESHPANDE MD Comment on above: 10/05/24 [place] [facility] at[facility] left chest [id number] 10/05/24 [place] RA 8760 - [id number] 10/05/24 [place] RV 0435 - [id number] Start: 07-08-2023 IR CVC REMOVAL MELISSA DA VIS Start: 06-21-2023 Radiologic exam ches t 2 views Roman Yee MD Work Phone: Start: 06-20-2023 CBC + DIFF Troy flood MD Work Phone: Start: 06-20-2023 Comprehensive metabo lic 2000 panel - Serum or Plasma Troy Gomez MD Work Phone: Start: 06-20-2023 VANCOMYCIN PRE DOSE Sixto misty Gomez MD Work Phone: Start: 07-13-2022 Plain x-ray of hand Start: 05-05-2022 Thoracentesis KELSEY [facility] DO Start: 04-20-2022 Transesophageal echocardiography [facility] Comment on above: 1. Left ventricle: T he cavity size is normal. Wall thickness is normal. Systolic function is normal. 2. Aortic valve: There is no evidence of a vegetation. 3. Mitral valve: There is no evidence of vegetation. 4. Left atrium: There is no evidence of a thrombus in the atrial cavity or appendage. 5. Pulmonic valve: There is no evidence of a vegetation. 6. Tricuspid valve: There is a large, 0.7 cm (W) x 1.1 cm (L), mobile vegetation on the right atrial aspect of the anterior leaflet. There is a slightly smaller mobile vegetation of the RA aspect of the posterior leaflet as well. 7. Right atrium: There is no evidence of a thrombus in the atrial cavity or appendage. 8. Atrial septum: No defect or patent foramen ovale is identified. Echo contrast study following an increase in RA pressure induced by provocative maneuvers, shows no [id number] atrial level shunt. [id number] Start: 04-14-2022 Echocardiography [employer] Comment on above: 1. Left ventricle: T he cavity size is normal. Wall thickness is normal. Systolic function is normal. The estimated ejection fraction is 50-55%. Mild hypokinesis of the anteroseptal and anterior myocardium. 2. Right ventricle: The RV systolic pressure by Doppler is 27 mm Hg. 3. Tricuspid valve: There is a vegetation. There is mild regurgitation. Start: 04-13-2022 CT angiography of ch est with contrast [employer] Comment on above: 1. No evidence of pu lmonary embolus or right ventricular strain. 2. Interval development of multiple nodules, predominantly cavitary, suggestive of septic emboli or inflammatory process, with malignancy felt to be much less likely. 3. Emphysema. Start: 12-06-2019 CT angiography of ch est with contrast [employer] Comment on above: No pulmonary emboli or dissection. Diffuse central and perihilar groundglass opacities which are nonspecific, however may correlate to drug-induced lung disease or vaping. Evidence of prior granulomatous disease and areas of subpleural emphysema. No pulmonary emboli or dissection. Diffuse central and perihilar groundglass opacities which are nonspecific, however may correlate to drug-induced lung disease or vaping. Evidence of prior granulomatous disease and areas of subpleural emphysema. Hernia of abdominal cavity (disorder) JS MIRANDA MD Plan of Treatment Date Care Activity Detail Author Start: 2045 Zoster Vaccines (1 of 2) Zoste r Vaccines (1 of 2) [facility] Start: 12-18-2023 Covid-19 Vaccine ( season) Covid-19 Vaccine ( season) [facility] Start: 12-18-2023 Influenza vaccination [facility] Start: 11-13-2023 End: 02-12-2024 Hepatitis C virus RNA [Units/volume] (viral load) in Serum or Plasma by BRAD with probe detection HCV QUANT RNA BY PCR Lab Timed Chronic hepatitis C without hepatic coma (HCC) Expected: 11/13/2023, Expires: 02/12/2024 [facility] Work Phone: Comment on above: Expected: 11/13/2023 , Expires: 02/12/2024 Start: 11-01-2023 End: 11-01-2023 ambulatory 11/01/2023 3:00 PM EDT Specialty Pharmacy [facility] [address] [place], [place] [id number] [place] [address] Pharmacist, [facility] [address] [place] [address] SVR12- [facility] Comment on above: SVR12- [facility] Start: 08-14-2023 End: 11-13-2023 Hepatitis C virus RNA [Units/volume] (viral load) in Serum or Plasma by BRAD with probe detection HCV QUANT RNA BY PCR Lab Timed Chronic hepatitis C without hepatic coma (HCC) Expected: 08/14/2023, Expires: 11/13/2023 [facility] Work Phone: Comment on above: Expected: 08/14/2023 , Expires: 11/13/2023 Start: 06-21-2023 End: 09-20-2023 CBC panel - Blood by Automated count CBC Lab Routine Chronic hepatitis C without hepatic coma (HCC) Expected: 06/21/2023, Expires: 09/20/2023 [facility] Work Phone: Comment on above: Expected: 06/21/2023 , Expires: 09/20/2023 Start: 06-21-2023 End: 09-20-2023 Comprehensive metabolic 2000 panel - Serum or Plasma COMP METABOLIC PANEL Lab Routine Chronic hepatitis C without hepatic coma (HCC) Expected: 06/21/2023, Expires: 09/20/2023 [facility] Work Phone: Comment on above: Expected: 06/21/2023 , Expires: 09/20/2023 Start: 06-21-2023 End: 09-20-2023 Hepatitis C virus RNA [Units/volume] (viral load) in Serum or Plasma by BRAD with probe detection HCV QUANT RNA BY PCR Lab Routine Chronic hepatitis C without hepatic coma (HCC) Expected: 06/21/2023, Expires: 09/20/2023 [facility] Work Phone: Comment on above: Expected: 06/21/2023 , Expires: 09/20/2023 Start: 06-21-2023 End: 09-20-2023 LIVER FIBROSIS AND ACTIVITY LIVER FIBROSIS AND ACTIVITY Lab Routine Chronic hepatitis C without hepatic coma (HCC) Expected: 06/21/2023, Expires: 09/20/2023 [facility] Work Phone: Comment on above: Expected: 06/21/2023 , Expires: 09/20/2023 Start: 06-21-2023 End: 09-20-2023 PT panel - Platelet poor plasma by Coagulation assay PROTHROMBIN TIME/PT Lab Routine Chronic hepatitis C without hepatic coma (HCC) Expected: 06/21/2023, Expires: 09/20/2023 [facility] Work Phone: Comment on above: Expected: 06/21/2023 , Expires: 09/20/2023 Start: 04-18-2023 Behavioral Health Screening Behavioral Health Screening [facility] Start: 04-18-2023 Depression Assessment Depression Ass essment [facility] Start: 12-17-2022 Covid-19 Vaccine () Covid-19 Vaccine () [facility] Start: 12-17-2022 Influenza vaccination Influenza Vacc ine (#1) [facility] Start: 2017 DTaP/Tdap/Td Vaccine s (1 - Tdap) DTaP/Tdap/Td Vaccines (1 - Tdap) [facility] Start: 2014 Hepatitis A Vaccine (1 of 2 - Risk 2-dose series) Hepatitis A Vaccine (1 of 2 - Risk 2-dose series) [facility] Start: 2014 Hepatitis A Vaccines (1 of 2 - Risk 2-dose series) Hepatitis A Vaccines (1 of 2 - Risk 2-dose series) [facility] Start: 2014 Pneumococcal vaccination Pneum ococcal Vaccine (1 of 2 - PCV) [facility] Start: 2014 Urine microalbumin profile DTa P,Tdap,Td Vaccine (1 - Tdap) [facility] Start: 2013 Anxiety Screening Anxiety Screening [facility] Start: 2013 Depression Screening Depression Scre ening [facility] Start: 2013 Diabetes mellitus screening Diabetes Screening [facility] Start: 2001 Pneumococcal vaccination Pneum ococcal Vaccine (1 of 2 - PCV) [facility] Start: 2001 Pneumococcal Vaccine : Pediatrics (0 to 5 Years) and At-Risk Patients (6 to 64 Years) (1 - PCV) Pneumococcal Vaccine: Pediatrics (0 to 5 Years) and At-Risk Patients (6 to 64 Years) (1 - PCV) [facility] Start: 06-23-2000 Hepatitis B Vaccines (2 of 3 - 3-dose series) Hepatitis B Vaccines (2 of 3 - 3-dose series) [facility] Start: 1996 MMR Vaccines (1 of 1 - Standard series) MMR Vaccines (1 of 1 - Standard series) [facility] Start: 1996 Varicella vaccination Varicell a Vaccines (1 of 2 - 2-dose childhood series) [facility] Start: 1995 Covid-19 Vaccine (#1) Covid-19 Vacci ne (#1) [facility] Start: 1995 HIV screening HIV Screening [facility] Start: 1995 Lipid panel Lipid Panel [facility] Start: 1995 Yearly Adult Physical Yearly Adult P hysical [facility] End: 06-03-2024 ECG COMPLETE ECG COMPLETE ECG Routine Infective endocarditis of tricuspid valve 1 Occurrences starting 06/03/2023 until 06/03/2024 [facility] Work Phone: Comment on above: 1 Occurrences starti ng 06/03/2023 until 06/03/2024 End: 06-03-2024 Echocardiography ECHO Cardiology Routine Infective endocarditis of tricuspid valve 1 Occurrences starting 06/03/2023 until 06/03/2024 [facility] Work Phone: Comment on above: 1 Occurrences starti ng 06/03/2023 until 06/03/2024 End: 07-08-2023 Guidance for removal of CV catheter with port from Chest [facility] Service Area Work Phone: Comment on above: Once for 1 Occurrenc es starting 07/08/2023 until 07/08/2023 Patient Education ED Foreign Bod y Soft Tissue [facility] Work Phone: Patient referral [facility] Work Phone: [facility] Immunizations Immunization Date Immunization Notes Care Provider Dalton alarcon 05-26-2000 hepatitis B pediatri c vaccine CASEY PERRIN MD [facility] Payers Date Payer Category Payer Self-pay [id number] 2022 Unknown [id number] 2022 Medicaid [id number] 2022 Private Health Insurance [id number] 1995 Unknown [id number] 2.16.8 [id number] 1995 Unknown [id number] 2.16.8 [id number] 1995 Unknown [id number] 2.16.8 [id number] 1995 Unknown [id number] 2.16.8 [id number] 1995 Unknown [id number] 2.16.84 [id number] 1995 Unknown [id number] 2.16. [id number] 1995 Unknown [id number] 2.16.8 [id number] 1995 Unknown [id number] 2.16. [id number] 1995 Unknown [id number] 2.16. [id number] Unknown [id number] 2.16.8 [id number] Social History Date Type Detail Facility Start: 02-18-2019 End: 11-07-2024 Tobacco smoking status Heavy tobacco smoker (finding) [facility] Assigned At [facility] Start: 07-13-2022 Tobacco smoking status WAIS Unknown if ever smoked [facility] Start: 03-23-2020 None [facility] Start: 03-23-2020 With Family [facility] Start: 03-24-2020 Cigarettes [facility] Start: 1995 Sex Assigned At Male [facility] Start: 05-08-2023 Tobacco smoking status WAIS Smokes tobacco daily [facility] Work Phone: History of tobacco use Cigarette Smoker [facility] Work Phone: Start: 05-08-2023 End: 06-21-2023 History of Social function [facility] Start: 05-08-2023 End: 06-21-2023 Tobacco use panel [facility] National Score (1-100), lower number is lower risk 87 [facility] Start: 1995 Sex Assigned At Not on file [facility] Start: 06-28-2023 End: 07-08-2023 Exposure to SARS-CoV-2 (event) Not sure [facility] Start: 12-25-2015 Sex Male (finding) [facility] Medical Equipment Procedure Code Equipment Code Equipment Original Text Equipment Identifier Dates [place] Thk1.65mm P tfe 4x.5in Cardiovascular Sterile - [id number] Start: 05-30-2023 Ring Cuellar Mc3 28mm Titanium Silicone Rubber Polyester Annuloplasty 1 - [id number] Start: 05-30-2023 Patch Thk.5mm Jin vine Pericardial 65m85bc Cardiovascular Resilience Durable - [id number] Start: 05-30-2023 Tray Powerline S urecuff 5fr Polyurethane Catheter 1 Lumen Microintroducer - [id number] Start: 06-05-2023 Goals Date Patient Goal Desired Activity /State Personal health goal Functional Status Date Assessment Result Facility 05-22-2024 Functional Status Independent [facility] 05-22-2024 Functional Status Up to bathroom [facility] 06-13-2023 Are you deaf, or do you have serious difficulty hearing No 06/13/2023 2:40 PM Salud Guido RN No [facility] 06-13-2023 Are you blind, or do you have serious difficulty seeing, even when wearing glasses No 06/13/2023 2:40 PM Salud Guido RN No [facility] 06-13-2023 Do you have serious difficulty walking or climbing stairs No 06/13/2023 2:40 PM Salud Guido RN No [facility] 06-13-2023 Do you have difficul ty dressing or bathing No 06/13/2023 2:40 PM Salud Guido RN No [facility] 06-13-2023 Because of a physica l, mental, or emotional condition, do you have difficulty doing errands alone such as visiting a physician's office or shopping No 06/13/2023 2:40 PM Salud Guido RN No [facility] 05-07-2023 Functional Status Room check performed [facility] 05-07-2023 Functional Status [facility] 05-07[facility]23 [facility] 05-07[facility]2023 [facility] 05-07-2023 Functional [facility] 05-07-2023 Functional Status [facility] 05[facility]06-2023 Functional Status [facility] 05-05-2023 Functional Status [facility] 05-04-2023 Functional Status [facility] 05-03-2023 Functional Status [facility] 05-03-2023 Functional Status [facility] 05-02-2023 Functional Status [facility] 05-02-2023 Functional Status Bath cloths [facility] 05-02-2023 Functional Status NPO Status [facility] 04-29-2023 [facility] Functional Status Single level home [facility] 04-29-2023 Functional Status [facility] Functional Status Nena [facility] 04-28-2023 Functional Status Room check performed [facility] 04-28-2023 Functional Status Nena [facility] 04-28-2023 Functional Status Afternoon Snack Percent 75 [facility] 04-28-2023 Functional Status Nena [facility] 04-28-2023 Functional Status Nena [facility] 01-14-2023 Functional Status Awake, Resting [facility] 05-10-2022 Functional Status Room check performed [facility] 05-10-2022 Functional Status [facility]en[facility]ohn [facility] 05-10-2022 Functional Status [facility] 05-10-2022 Functional Status [facility] 05-09-2022 Functional Status [facility] 05-08-2022 Functional Status [facility] 05-08-2022 Functional Status Lunch Percent 100 [facility] 05-08-2022 Functional Status Breakfast Percent 100 A [facility] 05-08-2022 Functional Status Independent [facility] 05-07-2022 Functional Status Dinner Percent 75 [facility] 05-07-2022 Functional Status bilateral knee high [facility] 05-07-2022 Functional Status [facility] bed [facility] 05-[facility] 05-05-2022 Functional Status [facility] 05-05-2022 Functional Status [facility] 04-21-2022 Functional Status Room check performed [facility] 04-21-2022 Functional Status [facility] 04-19-2022 Functional Status Hospital bed [facility] 04-19-2022 Functional Status [facility] 04-17-2022 Functional Status [facility] 04-16-2022 Functional Status Done [facility] 04-14-2022 Functional Status [facility] 04-06-2022 Functional Status Standard Safet y Visitor at bedside, Safety level maintained [facility] 11-14-2021 Functional Status Independent [facility] 11-13-2021 Functional Status Standard Safet y ID band on, Call device within reach, Bed in low position, Wheels locked [facility] Mental Status Date Assessment Result Facility 05-22-2024 Mental Status Orientation Oriented x 4 [facility] 05-22-2024 Mental Status [facility] 06-13-2023 Because of a physica l, mental, or emotional condition, do you have serious difficulty concentrating, remembering, or making decisions No 06/13/2023 2:40 PM Salud Guido RN No [facility] 05-07-2023 Mental Status Orientation Oriented x 4 [facility] 05-07-2023 Mental Status [facility] 05-07-2023 Mental Status [facility] 05-05-2023 Mental Status [facility] 04-28-2023 Mental Status Orientation Oriented x 4 [facility] 04-28-2023 Mental Status [facility] 04-28-2023 Mental Status [facility] 01-14-2023 Mental Status Oriented x 4 [facility] 05-10-2022 Mental Status Orientation Oriented x 4 [facility] 05-10-2022 Mental Status [facility] 05-09-2022 Mental Status [facility] 04-21-2022 Mental Status Orientation Oriented x 4 [facility] 04-21-2022 Mental Status [facility] 04-20-2022 Mental Status [facility] 04-18-2022 Mental Status Orientation Asse ssment Oriented x 4 [facility] 04-17-2022 Mental Status [facility] 04-17-2022 Mental Status [facility] 04-06-2022 Mental Status Orientation Oriented x 4 [facility] 11-14-2021 Mental Status Orientation Oriented x 4 [facility] 11-13-2021 Mental Status [facility] Clinical Notes 11-14-2021 to 11-01-2024 Note Date & Type Note Facility 11-01-2024 Hospital Discharge instructions Patient Education 11/01/2024 12:41:46 Incision Care, Adult, [id number] Incision Care, Adult An incision is a cut that a doctor makes in your skin for surgery (for a procedure). Most times, these cuts are closed after surgery. Your cut from surgery may be closed with stitches (sutures), joel, skin glue, or skin tape (adhesive strips). You may need to return to your doctor to have stitches or joel taken out. This may happen many days or many weeks after your surgery. The cut needs to be well cared for so it does not get infected. How to care for your cut Cut care Follow instructions from your doctor about how to take care of your cut. Make sure you: ?Wash your hands with soap and water before you change your bandage (dressing). If you cannot use soap and water, use hand seamer operator. ?Change your bandage as told by your doctor. ?Leave stitches, skin glue, or skin tape in place. They may need to stay in place for 2 weeks or longer. If tape strips get loose and curl up, you may trim the loose edges. Do not remove tape strips completely unless your doctor says it is okay. Check your cut area every day for signs of infection. Check for: ?More redness, swelling, or pain. ?More fluid or blood. ?Warmth. ?Pus or a bad smell. Ask your doctor how to clean the cut. This may include: ?Using mild soap and water. ?Using a clean towel to pat the cut dry after you clean it. ?Putting a cream or ointment on the cut. Do this only as told by your doctor. ?Covering the cut with a clean bandage. Ask your doctor when you can leave the cut uncovered. Do not take baths, swim, or use a hot tub until your doctor says it is okay. Ask your doctor if you can take showers. You may only be allowed to take sponge baths for bathing. Medicines If you were prescribed an antibiotic medicine, cream, or ointment, take the antibiotic or put it on the cut as told by your doctor. Do not stop taking or putting on the antibiotic even if your condition gets better. Take mmlj-ydp-muhoapj and prescription medicines only as told by your doctor. General instructions Limit movement around your cut. This helps healing. ?Avoid straining, lifting, or exercise for the first month, or for as long as told by your doctor. ?Follow instructions from your doctor about going back to your normal activities. ?Ask your doctor what activities are safe. Protect your cut from the sun when you are outside for the first 6 months, or for as long as told by your doctor. Put on sunscreen around the scar or cover up the scar. Keep all follow-up visits as told by your doctor. This is important. Contact a doctor if: Your have more redness, swelling, or pain around the cut. You have more fluid or blood coming from the cut. Your cut feels warm to the touch. You have pus or a bad smell coming from the cut. You have a fever or shaking chills. You feel sick to your stomach (nauseous) or you throw up (vomit). You are dizzy. Your stitches or joel come undone. Get help right away if: You have a red streak coming from your cut. Your cut bleeds through the bandage and the bleeding does not stop with gentle pressure. The edges of your cut open up and separate. You have very bad (severe) pain. You have a rash. You are confused. You pass out (faint). You have trouble breathing and you have a fast heartbeat. This information is not intended to replace advice given to you by your health care provider. Make sure you discuss any questions you have with your health care provider. Document Released: 06/26/2012 Document Revised: 08/22/2017 Document Reviewed: 12/10/2016 [employer] Patient Education 2020 [employer]. 11/01/2024 12:41:46 8- Open Heart Surgery (Bypass or Valve) 05/2019 (Custom) OPEN HEART SURGERY (Bypass or Valve Surgery) General Guidelines for Care After Surgery Please read the instructions below and refer to it during the next few weeks. Recovering from surgery is different for everyone. Some people feel great after 3 or 4 weeks and others take longer depending on their condition before the surgery. These are general guidelines on how to care for yourself but always follow your doctor s instructions. If you have questions or problems after you go home, please call your doctor. MEDICINES You have the list of medicine you need to take at home. Be sure you understand this list and keep a copy with you at all times. Never add or stop medicine unless you check with your doctor first. Call the doctor if you have any of the following problems: If you start throwing up or have stomach pain or diarrhea If you feel dizzy or lightheaded when you stand up If you are confused or have trouble walking If you feel like your heart is racing and beating fast or if you feel like it is beating too slow If you get a rash If you notice bleeding or lots of bruising If you are taking a blood thinner such as warfarin after having valve surgery, please read the handout that has been given to you by the nurse. PAIN AFTER SURGERY You might feel some pain after your heart surgery. Please take your pain medicine if you need it following the directions on the bottle. If your pain becomes worse or if you are having trouble breathing, call your surgeon. As you heal and the pain begins to go away, take your pain medicine less often Pain medicine will sometimes cause you to become constipated. It is OK to take an over the counter stool softener. Eating lots of fruit and vegetables can also help with constipation. CARE OF YOUR INCISIONS Pay attention to your incisions and shower every day after you go home. Some swelling, bruising or redness is normal and will get better with time. Do not take a bath until all of your incisions are healed. Wash the incisions gently with antibacterial soap and water in the shower Use a clean washcloth every day Wash your chest incision first, then wash any arm incision, and last wash leg incisions Wash the rest of your body after cleaning all of your incisions Never use any cream or lotion on your incisions until they are healed all the way. Keep your incisions clean and dry Do not cover the incision with a dressing unless you are having drainage If you have joel, they will be taken out at the office visit You might notice some swelling or a lump at the top of the chest incision, but this is normal. Call your surgeon right away if you notice clicking in your chest. Your legs might swell after your surgery so follow these tips: Keep legs elevated when sitting. As a rule, it is best to elevate them above the level of your heart. For instance, if you are lying flat on a sofa, place your legs up on the arm of the sofa. Do not cross your legs. Wear your elastic stockings during the day for 4 weeks. Put them on before you get out of bed in the morning and then take them off at night. These will help keep your legs from swelling. ACTIVITY It is important to keep moving after heart surgery, but you will need to take rest periods throughout the day. Every day, increase your activity as you are able. Walk as much as possible, and gradually increase your distance every day. It will be normal to be sore for a couple of weeks after surgery. Get medical attention if your condition seems to be getting worse instead of better No heavy housework or heavy work outdoors You may use the stairs as tolerated Avoid lifting anything greater than 10 pounds Avoid any pushing or pulling with your arms. Avoid overexertion and take rest periods when you get tired Do not drive until your doctor tells you it is OK, typically 4 weeks. It is fine to go upstairs but take it slow and do not pull yourself up with the handrail. Avoid opening windows and opening tight jar lids. Do not bear down with bowel movements and do not hold your breath. Check with the surgeon before returning to work. Waiting 1-3 weeks is recommended for sexual intercourse. When you can walk briskly or climb 2 flights of stairs without pain or shortness of breath, you may be ready for sex. WEIGHT Weigh yourself every morning and write it down on paper. Use the same scale and weigh at the same time each day. Tell your doctor if you gain 2 pounds or more in one day. EATING HEALTHY Your doctor wants you to follow a heart healthy diet which is low in salt and low in fat. Your nurse has given you a book all about the diet you will need to follow. If you are diabetic or overweight, you will be given a calorie restriction too. If constipation is a problem, add more bran or fiber to your diet and you may take a mild nuin-kwb-jiwhmzj laxative like Milk of Magnesia . CARDIAC REHABILITATION Getting involved in cardiac rehab after your heart surgery is the best thing that you can do to feel better and stronger at a faster rate. The program is medically supervised to help patients recover and improve mental and physical function. It also helps reduce stress and can decrease your risk of having more heart problems. Your doctor will let you know when you can begin the program. SMOKING Give up smoking after heart surgery or it may cancel out the value of having your surgery. It may also delay the healing process. If you need help to quit, please call your surgeon or your heart doctor. [facility] also has a free stop smoking program called Give it Up and if you want to attend, please call [phone] ([phone]). Call the Surgeon If your incisions are red, oozing pus, or bleeding or if the edges are Call if there is a clicking in your sternum. Call if you are more short of breath. Call if you have dizziness Call if you have a fever of 101 or higher. Call if you have more ankle swelling, pain in your leg, or pain in your calf. Call the Heart Doctor (Clinical Data Management Manager) If your heart beats are irregular or are fast. If you have any questions about your medicine. If you gain 2 or more pounds in one day. If you feel dizzy or lightheaded when you first stand up. If you have any questions about getting help at home after you are discharged. If you have painful, frequent or bloody urination. GET IMMEDIATE MEDICAL HELP IF YOU HAVE: Chest pain, jaw pain, sweating, dizziness or severe shortness of breath, you could be having a heart attack. Please dial [phone]-- immediately. 11/01/2024 12:41:46 Pacemaker Implantation, Adult, Care After Pacemaker Implantation, Adult, Care After This sheet gives you information about how to care for yourself after your procedure. Your health care provider may also give you more specific instructions. If you have problems or questions, contact your health care provider. What can I expect after the procedure? After the procedure, it is common to have: Mild pain. Slight bruising. Some swelling over the incision. A slight bump over the skin where the device was placed. Sometimes, it is possible to feel the device under the skin. This is normal. Follow these instructions at home: Medicines Take trwi-lqj-jcznkaj and prescription medicines only as told by your health care provider. If you were prescribed an antibiotic medicine, take it as told by your health care provider. Do not stop taking the antibiotic even if you start to feel better. Wound care Do not remove the bandage on your chest until directed to do so by your health care provider. After your bandage is removed, you may see pieces of tape called skin adhesive strips over the area where the cut was made (incision site). Let them fall off on their own. Check the incision site every day to make sure it is not infected, bleeding, or starting to pull apart. Do not use lotions or ointments near the incision site unless directed to do so. Keep the incision area clean and dry for 2 3 days after the procedure or as directed by your health care provider. It takes several weeks for the incision site to completely heal. Do not take baths, swim, or use a hot tub for 7 10 days or as otherwise directed by your health care provider. Activity Do not drive or use heavy machinery while taking prescription pain medicine. Do not drive for 24 hours if you were given a medicine to help you relax (sedative). Check with your health care provider before you start to drive or play sports. Avoid sudden jerking, pulling, or chopping movements that pull your upper arm far away from your body. Avoid these movements for at least 6 weeks or as long as told by your health care provider. Do not lift your upper arm above your shoulders for at least 6 weeks or as long as told by your health care provider. This means no tennis, golf, or swimming. You may go back to work when your health care provider says it is okay. Pacemaker care You may be shown how to transfer data from your pacemaker through the phone to your health care provider. Always let all health care providers know about your pacemaker before you have any medical procedures or tests. Wear a medical ID bracelet or necklace stating that you have a pacemaker. Carry a pacemaker ID card with you at all times. Your pacemaker battery will last for 5 15 years. Routine checks by your health care provider will let the health care provider know when the battery is starting to run down. The pacemaker will need to be replaced when the battery starts to run down. Do not use amateur radio equipment or electric welding torches. Other electrical devices are safe to use, including power tools, lawn mowers, and speakers. If you are unsure of whether something is safe to use, ask your health care provider. When using your cell phone, hold it to the ear opposite the pacemaker. Do not leave your cell phone in a pocket over the pacemaker. Avoid places or objects that have a strong electric or magnetic field, including: ?Airport security dozier. When at the airport, let officials know that you have a pacemaker. ?Power plants. ?Large electrical generators. ?Radiofrequency transmission towers, such as cell phone and radio towers. General instructions Weigh yourself every day. If you suddenly gain weight, fluid may be building up in your body. Keep all follow-up visits as told by your health care provider. This is important. Contact a health care provider if: You gain weight suddenly. Your legs or feet swell. It feels like your heart is fluttering or skipping beats (heart palpitations). You have chills or a fever. You have more redness, swelling, or pain around your incisions. You have more fluid or blood coming from your incisions. Your incisions feel warm to the touch. You have pus or a bad smell coming from your incisions. Get help right away if: You have chest pain. You have trouble breathing or are short of breath. You become extremely tired. You are light-headed or you faint. This information is not intended to replace advice given to you by your health care provider. Make sure you discuss any questions you have with your health care provider. Document Released: 10/22/2005 Document Revised: 03/17/2018 Document Reviewed: 01/14/2017 [email or web address] Patient Education 2020 [employer]. Follow Up Care 09/22/2024 09:48:10 With:KIKA MESSINA MD, Thoracic Service, Vascular Service Address: [address] [place] [address] [address] [facility] [place] [address]- [phone] When:11/07/2024 14:15:00 With:[facility] Address: [address] [place] [address] [id number] [place] [address]- [phone] When:01/07/2025 13:15:00 Comments:This is your hospital follow up in the [facility]. [facility] 11-01-2024 Note Discharge Instructions Thank you for allowing [facility] to assist you with your healthcare needs. The following is important discharge information regarding your hospital visit. 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 Atrial fibrillation Bacteremia Endocarditis of tricuspid valve s/p Redo sternotomy, redo TVR using #27 CE MagnaEase, insertion of permanent epicardial wires 10/02/2024 History of tooth extraction 09/30/2024 IV drug abuse Pleural effusion on right Pulmonary hemorrhage Right groin Enlarged lymph node s/p Excision 10/02/24 S/P TVR (tricuspid valve replacement) 2023 Septic pulmonary embolism Sinus tachycardia Staphylococcus aureus bacteremia Thrombocytopenia Tobacco use What to do next Scheduled Follow-Up Appointments Appointment Type When With Where Contact Information StatusCTS OV Post Op 11/07/2024 02:00 PM EDT [facility] Confirmed CV Office Procedure PPM 01/07/2025 01:15 PM EDT [facility] Confirmed CV Remote Procedure HM 04/08/2025 05:30 PM EST [facility] Confirmed Follow Up Appointments Follow Up with KIKA MESSINA MD, Thoracic Service, Vascular Service When:11/07/2024 02:15 PM EDT Where:[address] [facility] [address] [facility] [place] [address]- [phone] Follow Up with [facility] When:01/07/2025 01:15 PM EDT Where:[address] [facility] [id number] [place] [address]- [phone] Additional Information: This is your hospital follow up in the [facility]. The Following Activity and Diet Have Been Ordered for You Discharge Activity - Ordered -- Lifting Restricted less than 10 pounds May Shower, NO DRIVING FOR 2 WEEKS, 11/01/24 11:39:00 EDT Discharge Activity - Ordered -- NO activity restrictions, Additional instructions include: Incentive spirometer 10 breaths every hour, Acapella 10 breaths every hour, 11/01/24 11:39:00 EDT Discharge Activity - Ordered -- Other, You are to call Dr. Messina DAILY to let him know how you are doing, 11/01/24 11:46:00 EDT Discharge Diet - Ordered -- Type of Diet: Regular, Diet Restrictions: Cardiac diet Low cholesterol, 11/01/24 11:39:00 EDT The Following Equipment Has Been Ordered for You Discharge Home Equipment Discharge Wound Care - Ordered -- Wash your chest incision daily with soap and water, 11/01/24 11:39:00 EDT The Following Treatments Have Been Ordered for You Discharge Labs No qualifying data available. Discharge Radiology No qualifying data available. Other Therapies No qualifying data available. Post Acute Orders No qualifying data available. Someone Will Contact You Regarding These Home Health Referrals No home referrals have been ordered for you. No one will call you. Allergies [facility] Medications Please ask your primary doctor or pharmacist before taking any other medication not listed, including over the counter drugs, herbal medications, vitamins and or supplements as they may interact with your home medications. What How Much When Why Instructions Last Dose New acetaminophen (Tylenol 325 mg oral capsule) 650 Milligram by mouth Every 6 hours New aspirin (aspirin 81 mg oral tablet, chewable) 1 tab(s) by mouth Once a day with a meal New benzonatate (Tessalon Perles 100 mg oral capsule) 2 cap by mouth Three (3) times a day Duration: 14 Days Pickup at [facility] New cephalexin (cephalexin 500 mg oral capsule) 1 cap by mouth Three (3) times a day Duration: 90 Days Pickup at [facility] New furosemide (Lasix 40 mg oral tablet) 1 tab(s) by mouth Once a day Duration: 7 Days Pickup at [facility] New midodrine (midodrine 5 mg oral tablet) 1 tab(s) by mouth Three (3) times a day Duration: 14 Days Pickup at [facility] New oxyCODONE (oxyCODONE 20 mg/ mL oral concentrate) 0.25 Milliliter by mouth Every 8 hours as needed for Pain, scale 7-10 Endocarditis of tricuspid valve s/p Redo sternotomy, redo TVR using #27 CE MagnaEase, insertion of permanent epicardial wires 10/02/2024 Acute pain Duration: 7 Days Pickup at [facility] New potassium chloride (potassium chloride 20 mEq oral tablet, extended release) 1 tab(s) by mouth Once a day Duration: 7 Days Pickup at [facility] Unchanged naloxone (Narcan 4 mg/ 0.1 mL nasal spray) 1 spray(s) Intranasal As Directed as needed for see pharmacy notes Accidental drug overdose may repeat every 2 to 3 minutes until patient responds Pharmacy Information [facility]: [address] [place] [address] [phone] Please take this list to your next doctor s visit. Bring all medications you take, including over the counter medications, herbals and other supplements with you to your doctor s visit. Patients and families are reminded to discard old lists and to update any records with all medication providers or retail pharmacies. Medication Leaflets furosemide (oral/injection) (fur [place] se mide) Furoscix, Lasix What is the most important information I should know about furosemide? You should not use this medicine if you are unable to urinate. Using more than your recommended dose will not make this medicine more effective. High doses of furosemide may cause irreversible hearing loss. Tell your doctor about all your other medicines. Some drugs should not be used with furosemide. What is furosemide? Furosemide is used to treat fluid retention (edema) in people with congestive heart failure, liver disease, or a kidney disorder such as nephrotic syndrome. Furosemide is also used to treat high blood pressure (hypertension). The Furoscix brand of furosemide is only used in adults. Furosemide may also be used for purposes not listed in this medication guide. What should I discuss with my healthcare provider before using furosemide? You should not use furosemide if you are allergic to it, if you are unable to urinate or have hepatic cirrhosis. You should not use Furoscix if you have ascites or have allergies to medical adhesives. Tell your doctor if you have ever had: an electrolyte imbalance (such as low levels of potassium or magnesium in your blood); enlarged prostate, bladder obstruction, or other urination problems; gout; lupus; diabetes; an allergy to sulfa drugs; kidney disease; or cirrhosis or other liver disease. Tell your doctor if you have an MRI (magnetic resonance imaging) or any type of scan using a radioactive dye that is injected into a vein. Contrast dyes and furosemide can harm your kidneys. It is not known if furosemide will harm an unborn baby. Tell your doctor if you are or plan to become . It may not be safe to breastfeed while using this medicine. Ask your doctor about any risk. Furosemide may slow breast milk production. How should I use furosemide? Follow all directions on your prescription label and read all medication guides or instruction sheets. Use the medicine exactly as directed. Furosemide oral is taken by mouth. Furosemide injection is given in a muscle, under the skin, or in a vein. A healthcare provider will give you this injection if you are unable to take the medicine by mouth. Furoscix infusion lasts about 5 hours. Furoscix should not get wet. Do not bathe, shower, swim or exercise while wearing the infusor. Also do not apply any products such as lotions or creams in the area where the infusor is placed. It is not recommended to travel by car or airplane while using Furoscix. Also do not use the infusor within 12 inches of mobile phones, tablets, computers, or wireless accessories such as remote control, or [employer] devices. Do not reuse a needle, syringe or cartridge. Place them in a puncture-proof 'sharps' container and dispose of it following state or local laws. Keep out of the reach of children and pets. You may receive your first dose in a hospital or clinic setting if you have severe liver disease. Do not use more than your recommended dose. High doses of furosemide may cause irreversible hearing loss. Measure liquid medicine with the supplied measuring device (not a kitchen spoon). Doses are based on weight in children and teenagers. Your child's dose may change if the child gains or loses weight. Furosemide will make you urinate more often and you may get dehydrated easily. Follow your doctor's instructions about using potassium supplements or getting enough salt and potassium in your diet. This medicine can affect the results of certain medical tests. Tell any doctor who treats you that you are using furosemide. Your blood pressure will need to be checked often and you may need other medical tests. If you have high blood pressure, keep using this medicine even if you feel well. High blood pressure often has no symptoms. If you need surgery, tell the surgeon ahead of time that you are using furosemide. Store at room temperature away from moisture, heat, and light. Throw away any unused oral liquid after 90 days. What happens if I miss a dose? Furosemide is sometimes used only once, if you are not on a dosing schedule. If you are using the medication regularly, use the medicine as soon as you can, but skip the missed dose if it is almost time for your next dose. Do not use two doses at one time. What happens if I overdose? Seek emergency medical attention or call the Poison Help line at . Overdose symptoms may include feeling very thirsty or hot, heavy sweating, hot and dry skin, extreme weakness, or fainting. What should I avoid while using furosemide? Avoid getting up too fast from a sitting or lying position, or you may feel dizzy. Avoid becoming dehydrated. Follow your doctor's instructions about the type and amount of liquids you should drink while you are using furosemide. Drinking alcohol with this medicine can cause side effects. Furosemide could make you sunburn more easily. Avoid sunlight or tanning beds. Wear protective clothing and use sunscreen (SPF 30 or higher) when you are outdoors. If you have high blood pressure, ask a doctor or pharmacist before taking any medicines that can raise your blood pressure, such as diet pills or xpite-pzj-wmxn medicine. What are the possible side effects of furosemide? Get emergency medical help if you have signs of an allergic reaction (hives, difficult breathing, swelling in your face or throat) or a severe skin reaction (fever, sore throat, burning eyes, skin pain, red or purple skin rash with blistering and peeling). Call your doctor at once if you have: a light-headed feeling, like you might pass out; ringing in your ears, hearing loss; muscle spasms or contractions; pale skin, easy bruising, unusual bleeding; high blood sugar--increased thirst, increased urination, dry mouth, fruity breath odor; kidney problems--swelling, urinating less, feeling tired or short of breath; signs of liver or pancreas problems--loss of appetite, upper stomach pain (that may spread to your back), nausea or vomiting, dark urine, jaundice (yellowing of the skin or eyes); or signs of an electrolyte imbalance--increased thirst or urination, constipation, muscle weakness, leg cramps, numbness or tingling, feeling jittery, fluttering in your chest. Common side effects may include: diarrhea, constipation, loss of appetite; numbness or tingling; headache, dizziness; or blurred vision. This is not a complete list of side effects and others may occur. Call your doctor for medical advice about side effects. You may report side effects to FDA at 3-345-TDG-6234. What other drugs will affect furosemide? Sometimes it is not safe to use certain medicines at the same time. Some drugs can affect your blood levels of other drugs you use, which may increase side effects or make the medicines less effective If you also take sucralfate, take your furosemide dose 2 hours before or 2 hours after you take sucralfate. Tell your doctor about all your other medicines, especially: another diuretic, especially ethacrynic acid; methotrexate; chloral hydrate; lithium; phenytoin; an antibiotic; cancer medicine, such as cisplatin; heart or blood pressure medicine; or NSAIDs (nonsteroidal anti-inflammatory drugs)--aspirin, ibuprofen (Advil, Motrin), naproxen (Aleve), celecoxib, diclofenac, indomethacin, meloxicam, and others. This list is not complete. Other drugs may affect furosemide, including prescription and rfld-eun-orojhcy medicines, vitamins, and herbal products. Not all possible drug interactions are listed here. Where can I get more information? Your doctor or pharmacist can provide more information about furosemide. Remember, keep this and all other medicines out of the reach of children, never share your medicines with others, and use this medication only for the indication prescribed. Every effort has been made to ensure that the information provided by [employer] is accurate, up-to-date, and complete, but no guarantee is made to that effect. Drug information contained herein may be time sensitive. [employer] information has been compiled for use by healthcare practitioners and consumers in the [place] and therefore [employer] does not warrant that uses outside of the [place] are appropriate, unless specifically indicated otherwise. [employer]'s drug information does not endorse drugs, diagnose patients or recommend therapy. [employer] drug information is an informational resource designed to assist licensed healthcare practitioners in caring for their patients and/or to serve consumers viewing this service as a supplement to, and not a substitute for, the expertise, skill, knowledge and judgment of healthcare practitioners. The absence of a warning for a given drug or drug combination in no way should be construed to indicate that the drug or drug combination is safe, effective or appropriate for any given patient. [employer] does not assume any responsibility for any aspect of healthcare administered with the aid of information [employer] provides. The information contained herein is not intended to cover all possible uses, directions, precautions, warnings, drug interactions, allergic reactions, or adverse effects. If you have questions about the drugs you are taking, check with your doctor, nurse or pharmacist. Copyright 9451-8326 [employer]. Version: 20.. Revision Date: 09/27/2023. benzonatate (bienvenido whittaker) What is the most important information I should know about benzonatate? Never suck or chew on a benzonatate capsule. Swallow the pill whole. Sucking or chewing the capsule may cause serious side effects. Benzonatate is not approved for use by anyone younger than 10 years old. An overdose of benzonatate can be fatal to a young child. What is benzonatate? Benzonatate is used to relieve coughing. Benzonatate is a non-narcotic cough medicine that numbs the throat and lungs, making the cough reflex less active. Benzonatate may also be used for purposes not listed in this medication guide. What should I discuss with my healthcare provider before taking benzonatate? You should not use this medicine if you are allergic to benzonatate or topical numbing medicines such as tetracaine or procaine (found in some insect bite and sunburn creams). Tell your doctor if you are or . Benzonatate is not approved for use by anyone younger than 10 years old. An overdose of benzonatate can be fatal, especially to a young child who has accidentally swallowed the medicine. How should I take benzonatate? Follow all directions on your prescription label and read all medication guides or instruction sheets. Use the medicine exactly as directed. Never suck or chew on a benzonatate capsule. Swallow the pill whole. Sucking or chewing the capsule may cause serious side effects. Store at room temperature away from moisture, heat, and light. What happens if I miss a dose? Skip the missed dose and use your next dose at the regular time. Do not use two doses at one time. What happens if I overdose? Seek emergency medical attention or call the Poison Help line at . An overdose of benzonatate can be fatal, especially to a child. Accidental has occurred in children under 10 years old. Overdose symptoms may include tremors, feeling restless, seizure (convulsions), slow heart rate, weak pulse, fainting, and slow breathing (breathing may stop). What should I avoid while taking benzonatate? Avoid eating or drinking anything while you feel numbness or tingling in your mouth or throat. What are the possible side effects of benzonatate? Stop taking this medicine and get emergency medical help if you have signs of an allergic reaction: hives; difficult breathing; swelling of your face, lips, tongue, or throat. Call your doctor at once if you have: severe drowsiness or dizziness; confusion, hallucinations. ongoing numbness or tingling in your mouth, throat, or face; numbness in your chest; a choking feeling; chills; or burning in your eyes. Some of these side effects may result from chewing or sucking on a benzonatate capsule. Common side effects may include: headache, dizziness; nausea, upset stomach; constipation; itching, rash; or stuffy nose. This is not a complete list of side effects and others may occur. Call your doctor for medical advice about side effects. You may report side effects to FDA at 4-546-GGE-5349. What other drugs will affect benzonatate? Using benzonatate with other drugs that make you drowsy can worsen this effect. Ask your doctor before using opioid medication, a sleeping pill, a muscle relaxer, or medicine for anxiety or seizures. Other drugs may affect benzonatate, including prescription and gthd-rge-nzcbpsd medicines, vitamins, and herbal products. Tell your doctor about all your current medicines and any medicine you start or stop using. Where can I get more information? Your pharmacist can provide more information about benzonatate. Remember, keep this and all other medicines out of the reach of children, never share your medicines with others, and use this medication only for the indication prescribed. Every effort has been made to ensure that the information provided by [employer] is accurate, up-to-date, and complete, but no guarantee is made to that effect. Drug information contained herein may be time sensitive. [employer] information has been compiled for use by healthcare practitioners and consumers in the [place] and therefore [employer] does not warrant that uses outside of the [place] are appropriate, unless specifically indicated otherwise. [employer] drug information does not endorse drugs, diagnose patients or recommend therapy. [employer] drug information is an informational resource designed to assist licensed healthcare practitioners in caring for their patients and/or to serve consumers viewing this service as a supplement to, and not a substitute for, the expertise, skill, knowledge and judgment of healthcare practitioners. The absence of a warning for a given drug or drug combination in no way should be construed to indicate that the drug or drug combination is safe, effective or appropriate for any given patient. [employer] does not assume any responsibility for any aspect of healthcare administered with the aid of information [employer] provides. The information contained herein is not intended to cover all possible uses, directions, precautions, warnings, drug interactions, allergic reactions, or adverse effects. If you have questions about the drugs you are taking, check with your doctor, nurse or pharmacist. Copyright [id number] [employer]. Version: .. Revision Date: 11/18/2022. oxycodone (ox i KOE done) Oxaydo, OxyCONTIN, Roxicodone, RoxyBond, Xtampza ER What is the most important information I should know about oxycodone? MISUSE OF OPIOID MEDICINE CAN CAUSE ADDICTION, OVERDOSE, OR . Fatal side effects may occur if you also drink alcohol or use other drugs that cause drowsiness or slow breathing. Using opioid medicine during may cause life-threatening withdrawal symptoms in the . What is oxycodone? Oxycodone is an opioid pain medication used to treat moderate to severe pain. Oxycodone is usually given after other treatments did not work or were not tolerated. Extended-release oxycodone is for flyujf-tyi-cizhj treatment of severe and chronic pain that requires longer treatment. This medicine is not for use on an as-needed basis. Oxycodone may also be used for purposes not listed in this medication guide. What should I discuss with my healthcare provider before taking oxycodone? You should not use oxycodone if you are allergic to it, or if you have severe asthma, breathing problems or a stomach or bowel obstruction (including paralytic ileus). Tell your doctor if you have ever had: other breathing problems, sleep apnea (breathing that stops during sleep); a head injury, brain tumor, high pressure inside the skull, or seizures, drug or alcohol addiction, or mental illness; if you have used an MAO inhibitor in the past 14 days, such as isocarboxazid, linezolid, methylene blue injection, phenelzine, or tranylcypromine; urination problems, problems with your gallbladder, pancreas, thyroid, or adrenal gland; or liver or kidney disease. Most forms of oxycodone are not approved for use in people under 18 years old. The extended-release tablets should not be given to a child younger than 11 years old. Tell your doctor if you also use stimulant medicine, opioid medicine, herbal products, or medicine for depression, mental illness, Parkinson's disease, migraine headaches, serious infections, or prevention of nausea and vomiting. An interaction with oxycodone could cause a serious condition called serotonin syndrome. May harm an unborn baby. Tell your doctor if you are or plan to become . If you use oxycodone during , your baby could be born with life-threatening withdrawal symptoms, and may need medical treatment for several weeks. Do not breastfeed. Oxycodone in breast milk can cause life-threatening side effects in a nursing baby. Long-term oxycodone may affect fertility in men or women. could be harder to achieve while either parent is using this medicine. How should I take oxycodone? Follow the directions on your prescription label and read all medication guides or instruction sheets. Never use oxycodone in larger amounts, or for longer than prescribed. Tell your doctor if you feel an increased urge to use more of this medicine. Never share opioid medicine with another person, especially someone with a history of drug addiction. MISUSE CAN CAUSE ADDICTION, OVERDOSE, OR . Keep the medicine where others cannot get to it. Selling or giving away this medicine is against the law. Never crush a pill or use the liquid to inhale the mixture or inject it into your vein. This could result in . Your dose needs may change if you switch to a different brand, strength, or form of this medicine. Avoid medication errors by using exactly as directed on the label, or as prescribed by your doctor. Stop taking all other vwrolk-rds-dearu opioid pain medicines when you start taking extended-release oxycodone. Swallow the extended-release forms whole to avoid exposure to a potentially fatal overdose. Do not crush, chew, break, open, or dissolve. Take the extended-release capsules with food. Read and carefully follow the instructions for use on how to prepare and take this medicine if you cannot swallow extended release capsules whole or you use a feeding tube. Ask your doctor or pharmacist if you don't understand these instructions. Measure liquid medicine with the supplied measuring device (not a kitchen spoon). You may be given other medications to help prevent or treat certain side effects. You may have withdrawal symptoms if you stop using oxycodone suddenly. Ask your doctor before stopping the medicine. Store at room temperature away from moisture and heat. Keep your medicine in a place where no one can use it improperly. Do not keep leftover medicine. Just one dose can cause in someone using it accidentally or improperly. Ask your pharmacist about a drug take-back program, or flush the unused medicine down the toilet. What happens if I miss a dose? Since oxycodone is used for pain, you are not likely to miss a dose. Skip any missed dose if it is almost time for your next dose. Do not use two doses at one time. What happens if I overdose? Seek emergency medical attention or call the Poison Help line at . An overdose can be fatal, especially in a child or person using opioid medicine without a prescription. Your doctor may recommend you get naloxone (a medicine to reverse an opioid overdose) and keep it with you at all times. A person caring for you can give the naloxone if you stop breathing or don't wake up. Your caregiver must still get emergency medical help and may need to perform CPR (cardiopulmonary resuscitation) on you while waiting for help to arrive. Anyone can buy naloxone from a pharmacy or local health department. Make sure any person caring for you knows where you keep naloxone and how to use it. What should I avoid while taking oxycodone? Do not drink alcohol or any products that contain alcohol. Dangerous side effects or could occur. Avoid driving or hazardous activity until you know how this medicine will affect you. Dizziness or drowsiness can causing falls, accidents, or severe injuries. Also avoid getting up too fast from a sitting or lying position, or you may feel dizzy. What are the possible side effects of oxycodone? Get emergency medical help if you have signs of an allergic reaction: hives, difficult breathing, swelling of your face, lips, tongue, or throat. Opioid medicine can slow or stop your breathing, and may occur, especially if you drink alcohol or use other drugs that cause drowsiness or slow breathing. A person caring for you should give naloxone and/or seek emergency medical attention if you have slow breathing with long pauses, blue colored lips, or if you are hard to wake up. Call your doctor at once if you have: slow heart rate, weak pulse, fainting, slow breathing (breathing may stop); chest pain, fast or pounding heartbeats; a seizure, extreme drowsiness; or decreased adrenal gland hormones--nausea, vomiting, stomach pain, loss of appetite, feeling tired or light-headed, muscle or joint pain, skin discoloration, craving salty foods. Serious breathing problems may be more likely in older adults and in those who are debilitated or have wasting syndrome or chronic breathing disorders. Seek medical attention right away if you have symptoms of serotonin syndrome, such as: agitation, hallucinations, fever, sweating, shivering, fast heart rate, muscle stiffness, twitching, loss of coordination, nausea, vomiting, or diarrhea. Common side effects may include: sleep problems (insomnia), itching; drowsiness, headache, dizziness, tiredness; or constipation, stomach pain, nausea, vomiting. This is not a complete list of side effects and others may occur. Call your doctor for medical advice about side effects. You may report side effects to FDA at 2-619-VTY-5246. What other drugs will affect oxycodone? You may have a fatal oxycodone overdose if you start or stop using certain medicines. Tell your doctor about all your medications. Tell your doctor about all your medications especially if you use medicine to treat HIV, antibiotic, antifungal medication, or seizure medication. Many other drugs can be dangerous when used with opioid medicine. Tell your doctor if you also use: medicine for allergies, asthma, blood pressure, motion sickness, irritable bowel, or overactive bladder; other opioid medicines, a benzodiazepine sedative like Valium, Klonopin, or Xanax; sleep medicine, muscle relaxers, or other drugs that make you drowsy; or drugs that affect serotonin, such as antidepressants, stimulants, or medicine for migraines or Parkinson's disease. This list is not complete and many other drugs may affect oxycodone. This includes prescription and ombt-vys-dkkxvny medicines, vitamins, and herbal products. Not all possible drug interactions are listed here. Where can I get more information? Your doctor or pharmacist can provide more information about oxycodone. Remember, keep this and all other medicines out of the reach of children, never share your medicines with others, and use this medication only for the indication prescribed. Every effort has been made to ensure that the information provided by [employer]. [employer]') is accurate, up-to-date, and complete, but no guarantee is made to that effect. Drug information contained herein may be time sensitive. [employer] information has been compiled for use by healthcare practitioners and consumers in the [place] and therefore [employer] does not warrant that uses outside of the [place] are appropriate, unless specifically indicated otherwise. [employer] drug information does not endorse drugs, diagnose patients or recommend therapy. [employer] drug information is an informational resource designed to assist licensed healthcare practitioners in caring for their patients and/or to serve consumers viewing this service as a supplement to, and not a substitute for, the expertise, skill, knowledge and judgment of healthcare practitioners. The absence of a warning for a given drug or drug combination in no way should be construed to indicate that the drug or drug combination is safe, effective or appropriate for any given patient. [employer] does not assume any responsibility for any aspect of healthcare administered with the aid of information [employer] provides. The information contained herein is not intended to cover all possible uses, directions, precautions, warnings, drug interactions, allergic reactions, or adverse effects. If you have questions about the drugs you are taking, check with your doctor, nurse or pharmacist. Copyright 4308-0400 [employer]. Version: 17.. Revision Date: 05/10/2023. potassium chloride (oral/injection) (rogerio TAS ee um KLOR freya) Boby Potassium 99, Klor-Con, Pokonza, Potassium Chloride Proamp What is the most important information I should know about potassium chloride? You should not use this medicine if you have high levels of potassium in your blood (hyperkalemia) or if you also take a potassium-sparing diuretic such as amiloride, eplerenone, spironolactone, or triamterene. What is potassium chloride? Potassium chloride is used in people to treat or prevent low blood levels of potassium (hypokalemia). Potassium levels can be low as a result of a diet, disease, taking certain medicines, or after a prolonged illness with diarrhea or vomiting. Potassium chloride may also be used for purposes not listed in this medication guide. What should I discuss with my healthcare provider before using potassium chloride? You should not use potassium chloride if you are allergic to it, or if you have: high blood levels of potassium (hyperkalemia); or if you take a potassium-sparing diuretic such as amiloride, eplerenone, spironolactone, or triamterene. Tell your doctor if you have or have ever had: heart problems such as congestive heart failure or 'AV block'; a large tissue injury such as a severe burn; an electrolyte imbalance (such as low levels of sodium or high levels of chloride in your blood); too much acid in your body (acidosis); trouble swallowing; stomach disorder; bleeding, ulcer, obstruction, or perforation (a hole or tear) in your stomach or intestines; severe dehydration; cirrhosis or other liver disease; or kidney disease. Ask a doctor before using this medicine if you are or . Do not give this medicine to a child without medical advice. Some forms of potassium chloride are not approved for use by anyone younger than 18 years old. How should I use potassium chloride? Follow all directions on your prescription label and read all medication guides or instruction sheets. Your doctor may occasionally change your dose. Use the medicine exactly as directed. Your dose needs may change if you switch to a different brand, strength, or form of this medicine. Avoid medication errors by using exactly as directed on the label, or as prescribed by your doctor. Potassium chloride oral is taken by mouth. Potassium chloride injection is given as an infusion into a vein. A healthcare provider will give you this injection when you have severely low potassium levels or if you are unable to take medicine by mouth. Tell your medical caregivers if you feel any burning or pain when potassium chloride injection is injected. Take oral potassium chloride with food if the medicine upsets your stomach. Take the tablet or capsule with a full glass of water or other liquid. Do not take the medicine on an empty stomach. Swallow the extended-release tablet or capsule whole and do not crush, chew, break, or suck on it. If you are unable to swallow a tablet or capsule whole, read and carefully follow the instructions provided to you on how to prepare and take this medicine. Ask a doctor or pharmacist if you do not understand these instructions. Measure liquid medicine with the supplied measuring device (not a kitchen spoon). Mix the oral solution, powder, or granules with least 4 ounces of cold water before taking it. Doses are based on weight in children and teenagers. Your child's dose may change if the child gains or loses weight. You may need to follow a special diet. Follow all instructions of your doctor or dietitian. Learn about the foods you should eat or avoid. You may need frequent medical tests, even if you have no symptoms. Your heart function may need to be checked using an electrocardiograph or ECG (sometimes called an EKG). Part of an extended-release tablet shell may appear in your stool, but this will not make the medicine less effective. Store at room temperature away from moisture, heat, and light. Keep the liquid medicine bottle tightly closed and away from light when not in use. What happens if I miss a dose? Take the medicine as soon as you can, but skip the missed dose if it is almost time for your next dose. Do not take two doses at one time. What happens if I overdose? Seek emergency medical attention or call the Poison Help line at . What should I avoid while using potassium chloride? Do not take potassium supplements, use salt substitutes, or other products that contain potassium unless your doctor has told you to. What are the possible side effects of potassium chloride? Get emergency medical help if you have signs of an allergic reaction: hives, difficult breathing, swelling of your face, lips, tongue, or throat. Some side effects may occur during the injection. Tell your medical caregiver if you feel dizzy, nauseated, light-headed, itchy, sweaty, or have a headache, chest tightness, back pain, trouble breathing, or swelling in your face. Call your doctor at once if you have: chest pain, trouble breathing; skin rash; headache, nausea, tiredness, seizure; severe vomiting, stomach pain or irritation, bloating; high blood potassium--nausea, weakness, tingly feeling, chest pain, irregular heartbeats, loss of movement; signs of an electrolyte imbalance--increased thirst or urination, constipation, muscle weakness, leg cramps, numbness or tingling, feeling jittery, fluttering in your chest; fluid retention--shortness of breath (even while lying down), swelling, rapid weight gain (especially in your face and midsection); or signs of stomach bleeding--bloody or tarry stools, coughing up blood or vomit that looks like coffee grounds. Common side effects may include: nausea, vomiting, diarrhea; or gas, stomach pain or discomfort. This is not a complete list of side effects and others may occur. Call your doctor for medical advice about side effects. You may report side effects to FDA at 0-836-MGJ-5479. What other drugs will affect potassium chloride? Tell your doctor about all your other medicines, especially: medicine to prevent organ transplant rejection; anticonvulsants (antiepileptics); a diuretic or 'water pill'; heart or blood pressure medication; or NSAIDs (nonsteroidal anti-inflammatory drugs)--aspirin, ibuprofen (Advil, Motrin), naproxen (Aleve), celecoxib, diclofenac, indomethacin, meloxicam, and others. This list is not complete. Other drugs may affect potassium chloride, including prescription and gjns-xni-yudqebc medicines, vitamins, and herbal products. Not all possible drug interactions are listed here. Where can I get more information? Your doctor or pharmacist can provide more information about potassium chloride. Remember, keep this and all other medicines out of the reach of children, never share your medicines with others, and use this medication only for the indication prescribed. Every effort has been made to ensure that the information provided by [employer] is accurate, up-to-date, and complete, but no guarantee is made to that effect. Drug information contained herein may be time sensitive. [employer] information has been compiled for use by healthcare practitioners and consumers in the [place] and therefore [employer] does not warrant that uses outside of the [place] are appropriate, unless specifically indicated otherwise. [employer] drug information does not endorse drugs, diagnose patients or recommend therapy. [employer] drug information is an informational resource designed to assist licensed healthcare practitioners in caring for their patients and/or to serve consumers viewing this service as a supplement to, and not a substitute for, the expertise, skill, knowledge and judgment of healthcare practitioners. The absence of a warning for a given drug or drug combination in no way should be construed to indicate that the drug or drug combination is safe, effective or appropriate for any given patient. [employer] does not assume any responsibility for any aspect of healthcare administered with the aid of information [employer] provides. The information contained herein is not intended to cover all possible uses, directions, precautions, warnings, drug interactions, allergic reactions, or adverse effects. If you have questions about the drugs you are taking, check with your doctor, nurse or pharmacist. Copyright 7757-1032 [employer]. Version: 17.. Revision Date: 09/17/2024. cephalexin (sef a GIGI in) What is the most important information I should know about cephalexin? You should not use this medicine if you are allergic to cephalexin or to similar antibiotics, such as Ceftin, Cefzil, Omnicef, and others. Tell your doctor if you are allergic to any drugs, especially penicillins or other antibiotics. What is cephalexin? Cephalexin is a cephalosporin (SEF a low spor in) antibiotic that is used to treat bacterial infections of the lungs, ear, skin, bones, bladder, and kidneys. Cephalexin is used to treat infections in adults and children who are at least 1 year old. Cephalexin may also be used for purposes not listed in this medication guide. What should I discuss with my healthcare provider before taking cephalexin? You should not use this medicine if you are allergic to cephalexin or any other cephalosporin antibiotic (cefdinir, cefadroxil, cefoxitin, cefprozil, ceftriaxone, cefuroxime, Omnicef, and others). Tell your doctor if you have ever had: an allergy to any drug (especially penicillin); liver or kidney disease; or intestinal problems, such as colitis. The liquid form of cephalexin may contain sugar. This may affect you if you have diabetes. Tell your doctor if you are or breast-feeding. How s (more content not included)... [facility] 11-01-2024 Note Date of Service 11/01/24 Reason for Consultation Admission From: Home Follow up Skin Team Findings Vitals and Measurements T: 37.2 C (Oral) TMIN: 36.7 C (Oral) TMAX: 37.2 C (Oral) HR: 71 (Monitored) RR: 16 BP: 102/73 SpO2: 99% WT: 51.7 kg Pressure Area Details ------Pressure Area------ Pressure ulcers resolving pink pigmentation scar tissue noted. No complications. Assessments and Recommendations ------Assessments------ Current Skin/Wound Interventions: Low air loss mattress, Transparent silicone dressing, Turn and reposition every 2 hours Present For Wound Observation: Nurse ------Recommendations------ Recommended Skin/Wound Interventions: Low air loss mattress, Seat cushion, Heel protectors, Pressure relief ankle/foot boot, Turn and position system, Barrier cream, Turn and reposition every 2 hours, Consult Dietitian, Proposed orders sent to physician, Other: calmoseptine, turn side to side sagar, venelex to heel protection, monitor lip ulcers & addjust respiratory device PRN Education No qualifying data available. 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 CTA of the chest was obtained that showed numerous persistent cavitary pulmonary nodules that were questionable for septic emboli. He was transferred to [facility] for further evaluation. On arrival, he was somnolent and difficult to arouse and was intubated. Toxicology screen was positive for amphetamines and cannabinoids. Blood cultures returned positive for Staph aureus. Echocardiogram showed a large mobile vegetation on the anterior leaflet of the tricuspid valve measuring 0.6 cm x 1.6 cm along with severe tricuspid stenosis and severe tricuspid regurgitation. Cardiothoracic surgery was consulted for tricuspid valve replacement. He was eventually liberated from mechanical ventilation. Dental extraction completed on 09/30/2024. Preoperatively he was transfused with RBCs and platelets. He underwent a redo sternotomy, redo tricuspid valve replacement using #27 Magna Ease with a warm beating heart and insertion of permanent epicardial pacemaker leads per Dr. Messina on 10/02/2024. Received DDAVP, Kcentra, and RBCs for coagulopathy. Chest tubes remain to have increased output and he received cryoprecipitate, platelets, and NovoSeven. Required the use of vasopressin for hemodynamic and blood pressure support. While on mechanical ventilation required ketamine, Precedex and propofol. One-to-one AV paced secondary to severe bradycardia. EP was consulted postop day #2 for evaluation for permanent pacer insertion. He he was extubated and transition to nasal cannula postop day #2. Chest tubes discontinued. PICC line inserted 10/04/2024. Diuresed. Postop day #3 required insertion of temporary pacemaker wire per cardiology secondary to loss of capture per temporary pacemaker. Antibiotics continue per ID. Transfer to stepdown. Permanent pacemaker inserted per cardiology on 10/05/2024. On postop day #7 he had acute hemoptysis, coughing up approximately 3 to 400 mL bright red blood. He was emergently intubated, bronchoscopy was performed, and then was sent for a CT of the chest which revealed multiple new/worse areas of consolidation that could represent areas of pulmonary hemorrhage, or new infectious or inflammatory processes. Bleeding resolved. Right chest tube inserted for pleural effusion. On postop day #9 he again developed acute hemoptysis. Rapid response was called. IR completed embolization to near complete occlusion of right bronchial artery using Gelfoam pledget. He remained on mechanical ventilation. The following day, while attempting to liberate from mechanical ventilation he began to cough up and suctioned for bright red blood from endotracheal tube. IR embolization was repeated on 10/12/2024. He was extubated later in the afternoon on postop day #11. Chest tubes discontinued. Postop day #13 he was transferred back to the [facility]. Cough productive of just light pink to clear sputum. Antibiotics are continued. The last several postop days treatment has been continued with diuresis, antibiotics, and ambulation has been encouraged. No further hemoptysis has been noted. He remains to require a significant amount of scheduled pain medication to control his postoperative pain. Postop day #18. All repeat surgical cultures are negative to date. Continue current antibiotic with an end date of 11/13/2024. Continue diuresis. Continue midodrine to help support blood pressure. H&H has been stable. Continued 1:1 paced. POD #21/10/23/2024 continue current treatment, continue antibiotics as per infectious disease. Pain is still an issue for the patient despite scheduled oxycodone 10 mg every 4 hours. Increase activity. Discussed with patient today regarding slowly weaning the Oxy. He is agreeable. Oxy changed to q 6 hrs. POD #22 7 01/05/2025 continue current treatment, continue cefazolin as per infectious disease plan. Patient did well overnight with oxycodone every 6 hours instead of every 4 hours along with scheduled Tylenol every 6 hours. He has been ambulating well. POD #23 no current changes in medical therapy, continue to encourage activity and ambulation, continue IV antibiotics as per ID, discharge plan pending POD#24: Infectious disease provided a paper script for PO Keflex at time of discharge. Oxycodone frequency decreased to Q8h. No further changes to medical therapy. POD #25: Patient did well with decreasing oxycodone frequency. No other changes to current medical therapy. POD #26: Continue antibiotics. No changes to current medical therapy. POD #27-no new changes, continue current antibiotics, continue to encourage ambulation and pulmonary hygiene Postop day #28. Nursing reports coughing up 130 mL of fresh blood with clots last night. No further episodes noted chest x-ray stable Continue to monitor for now Currently his cough is productive of clear sputum with slight red tinge. POD#29: No acute issues noted, paced rhythm. Stable labs and vitals. Subjective Afebrile, HR paced at 70, BP stable on RA. Patient lying in bed, awakens to voice. No complaints, denies any new bloody sputum. Pain tolerable. Objective Vitals and Measurements T: 36.7 C (Oral) TMIN: 36.7 C (Oral) TMAX: 37.1 C (Oral) HR: 70 (Monitored) RR: 16 BP: 105/50 SpO2: 97% Intake and Output 7AM Yesterday to 7AM Today Intake and Output (Last 24 hours) Intake Oral Intake 360.00 Supplement Intake 100.00 Output Urine Voided 1000.00 Stool Count 0.00 Urine Count 3.00 Total Summary Total Intake 460.00 Total Output 1000.00 Fluid Balance -540.00 Physical Exam Neuro: Awakens to voice, answers questions appropriately. Pulmonary: On RA, slightly diminished in bases, no rhonchi, crackles, or wheezes. Cardiac: Paced rhythm, HR 70, no murmur or rub heard. Abdomen: Flat, soft, non tender, bowel sounds present. Extremities: Warm, well perfused, no swelling noted. Skin: Surgical incisions well approximated, healing well. No swelling, warmth or drainage. Psych: Flat affect, calm, cooperative. Weight Current Weight Dosing Weight: 50.2 kg (10/24/24) Current Weight: 51.7 kg (10/30/24) Dosing Weight: 49.8 kg (10/20/24) Current Weight: 52.7 kg (10/29/24) Medications Medications (36) Active Scheduled: (15) acetaminophen 325 mg Tablet 650 mg 2 tab(s), Oral, q6h aspirin 81 mg Chewable 81 mg 1 tab(s), Oral, qDayM balsam Mahendra-castor oil topical 87 mg-788 mg/g UD packet oint 5g 1 kendrick, Topical, BID benzonatate 100 mg Capsule 200 mg 2 cap(s), Oral, TID ceFAZolin syringe 2 gram(s) 20 mL, IV Push (INT), q8h docusate sodium 100 mg Capsule 100 mg 1 cap(s), Oral, q12h enoxaparin 40 mg/ 0.4mL syringe 40 mg 0.4 mL, Subcutaneous, qDay furosemide 40 mg tablet 40 mg 1 tab(s), Oral, qDay menthol-zinc oxide topical ointment 4oz 1 kendrick, Topical, amhs midodrine 5 mg tablet 5 mg 1 tab(s), Oral, TID multivitamin (Chromagen Forte) with iron Vitamin B Complex with C, Folic Acid and Iron tablet 1 tab(s), Oral, qDay No metformin for 48 hrs post contrast 1 EA, Miscellaneous, Unscheduled oxycodone 5 mg/0.25 mL ORAL syringe 5 mg 0.25 mL, Oral, q8hr pantoprazole 40 mg EC tablet 40 mg 1 tab(s), Oral, qDayAC potassium chloride 20 mEq ER tablet 20 mEq 1 tab(s), Oral, qDay Continuous: (0) PRN: (21) acetaminophen 160 mg/5 mL Suspension 650 mg 20.31 mL, Oral, q6hr acetaminophen 325 mg Tablet 650 mg 2 tab(s), Oral, q4h acetaminophen 325 mg Tablet 650 mg 2 tab(s), Oral, q4h Al hydrox/Mg hydrox/simethicone 200-200-20 mg/5 mL Susp UD 30 mL, Oral, q2h albuterol 0.5% Milagro UD (2.5 mg/0.5 mL) 2.5 mg 0.5 mL, Inhalation, QIDRT benzocaine-menthol (Cepacol Sore Throat) 15 mg-3.6mg lozenge 1 lozenge(s), Oral, q2h bisacodyl 10 mg Suppository 10 mg 1 supp, Rectal, qDay dextrose 50% Solution Disp syringe 50 mL 25 gram(s) 50 mL, IV Push, AsDirected docusate sodium 100 mg Capsule 100 mg 1 cap(s), Oral, BID hydrocodone-homatropine (Hycodan Oral Syringe) 5 mg-1.5 mg/5 mL Syrup 5 mL, Oral, q6hr hydromorphone 2 mg tablet 1 mg 0.5 tab(s), Oral, q4h magnesium gluconate 500 mg tablet 500 mg 1 tab(s), Oral, BID magnesium hydroxide 8% Suspension 30 mL UD 30 mL, Oral, qDay magnesium sulfate PMX 2 gram(s) 50 mL, IV Piggyback, AsDirected menthol-zinc oxide topical ointment 4oz 1 kendrick, Topical, BID ondansetron 2 mg/ 1 mL 2 mL INJ 4 mg 2 mL, IV Push, q4h phenol topical 1.4% Spr 1 spray(s), Topical, q1h polyethylene glycol 3350 - UD packet 17 gram(s) 15 mL, Oral, qDay potassium chloride (PMX) 20 mEq/100 mL 20 mEq 100 mL, IV Piggyback, AsDirected potassium chloride (PMX) 20 mEq/100 mL 40 mEq 200 mL, IV Piggyback, AsDirected potassium chloride 10 mEq ER capsule 20 mEq 2 cap(s), Oral, AsDirected Lab Results 10/31 05:05 WBC: 8.1 Hgb: 9.0 L Hct: 27.3 L Platelet: 291 Neutrophil %: 68.0 Glucose Level: 84 Sodium Level: 139 Potassium Level: 4.1 BUN: 18.0 Creatinine Lvl (s): 0.86 Imaging Results and Diagnostics (10/30/2024 08:19 EDT XR Chest 1 View) IMPRESSION: Bilateral lung infiltrates there are stable from prior exam. Improvement in small left pleural effusion.. [1] Assessment/Plan 1. Endocarditis of tricuspid valve s/p Redo sternotomy, redo TVR using #27 CE MagnaEase, insertion of permanent epicardial wires 10/02/2024 On IV cefazolin for total of 6 weeks with end date of 11/13/2024. PICC in place, will remove prior to DC and place on PO ABX. 2. Staphylococcus aureus bacteremia Last blood cultures obtained 10/09/24 without growth. 3. Asystole - S/P PPM 10/05/2024 V-paced at 70, occasional AV paced beat. 4. Pulmonary hemorrhage Reportedly coughing up bloody sputum and clots on 10/29/24. Per patient, no episodes since. 5. Acute blood loss anemia Hgb 10.0->9.2->8.5->9.0. 6. Thrombocytopenia Resolved, platelets 291 on last check. 7. Pleural effusion on right CXR on 10/30/24 showed improvement. 8. S/P TVR (tricuspid valve replacement) 2023 9. IV drug abuse Patient was given a list of outpatient drug rehab resources per our medical case manager, patient has refused to do that as they are not close to where he lives per him. States that he will be going to a facility and [place]. 10. Tobacco use Encourage complete cessation. Plan: Cefazolin 2g q8h->transition to PO prior to DC. Scheduled acetaminophen and oxycodone for pain control. Lasix 40mg IV daily with scheduled K repletion. Aspirin. Midodrine 5mg TID. Progressive PT/OT. Encourage PO intake. IS and acapella. Patient seen and discussed with Dr. Messina. 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 CTA of the chest was obtained that showed numerous persistent cavitary pulmonary nodules that were questionable for septic emboli. He was transferred to [facility] for further evaluation. On arrival, he was somnolent and difficult to arouse and was intubated. Toxicology screen was positive for amphetamines and cannabinoids. Blood cultures returned positive for Staph aureus. Echocardiogram showed a large mobile vegetation on the anterior leaflet of the tricuspid valve measuring 0.6 cm x 1.6 cm along with severe tricuspid stenosis and severe tricuspid regurgitation. Cardiothoracic surgery was consulted for tricuspid valve replacement. He was eventually liberated from mechanical ventilation. Dental extraction completed on 09/30/2024. Preoperatively he was transfused with RBCs and platelets. He underwent a redo sternotomy, redo tricuspid valve replacement using #27 Magna Ease with a warm beating heart and insertion of permanent epicardial pacemaker leads per Dr. Messina on 10/02/2024. Received DDAVP, Kcentra, and RBCs for coagulopathy. Chest tubes remain to have increased output and he received cryoprecipitate, platelets, and NovoSeven. Required the use of vasopressin for hemodynamic and blood pressure support. While on mechanical ventilation required ketamine, Precedex and propofol. One-to-one AV paced secondary to severe bradycardia. EP was consulted postop day #2 for evaluation for permanent pacer insertion. He he was extubated and transition to nasal cannula postop day #2. Chest tubes discontinued. PICC line inserted 10/04/2024. Diuresed. Postop day #3 required insertion of temporary pacemaker wire per cardiology secondary to loss of capture per temporary pacemaker. Antibiotics continue per ID. Transfer to stepdown. Permanent pacemaker inserted per cardiology on 10/05/2024. On postop day #7 he had acute hemoptysis, coughing up approximately 3 to 400 mL bright red blood. He was emergently intubated, bronchoscopy was performed, and then was sent for a CT of the chest which revealed multiple new/worse areas of consolidation that could represent areas of pulmonary hemorrhage, or new infectious or inflammatory processes. Bleeding resolved. Right chest tube inserted for pleural effusion. On postop day #9 he again developed acute hemoptysis. Rapid response was called. IR completed embolization to near complete occlusion of right bronchial artery using Gelfoam pledget. He remained on mechanical ventilation. The following day, while attempting to liberate from mechanical ventilation he began to cough up and suctioned for bright red blood from endotracheal tube. IR embolization was repeated on 10/12/2024. He was extubated later in the afternoon on postop day #11. Chest tubes discontinued. Postop day #13 he was transferred back to the stepdown. Cough productive of just light pink to clear sputum. Antibiotics are continued. The last several postop days treatment has been continued with diuresis, antibiotics, and ambulation has been encouraged. No further hemoptysis has been noted. He remains to require a significant amount of scheduled pain medication to control his postoperative pain. Postop day #18. All repeat surgical cultures are negative to date. Continue current antibiotic with an end date of 11/13/2024. Continue diuresis. Continue midodrine to help support blood pressure. H&H has been stable. Continued 1:1 paced. POD #21/10/23/2024 continue current treatment, continue antibiotics as per infectious disease. Pain is still an issue for the patient despite scheduled oxycodone 10 mg every 4 hours. Increase activity. Discussed with patient today regarding slowly weaning the Oxy. He is agreeable. Oxy changed to q 6 hrs. POD #22 7 01/05/2025 continue current treatment, continue cefazolin as per infectious disease plan. Patient did well overnight with oxycodone every 6 hours instead of every 4 hours along with scheduled Tylenol every 6 hours. He has been ambulating well. POD #23 no current changes in medical therapy, continue to encourage activity and ambulation, continue IV antibiotics as per ID, discharge plan pending POD#24: Infectious disease provided a paper script for PO Keflex at time of discharge. Oxycodone frequency decreased to Q8h. No further changes to medical therapy. POD #25: Patient did well with decreasing oxycodone frequency. No other changes to current medical therapy. POD #26: Continue antibiotics. No changes to current medical therapy. POD #27-no new changes, continue current antibiotics, continue to encourage ambulation and pulmonary hygiene Postop day #28. Nursing reports coughing up 130 mL of fresh blood with clots last night. No further episodes noted chest x-ray stable Continue to monitor for now Currently his cough is productive of clear sputum with slight red tinge. Subjective Up and about in the room without complaints Objective Vitals and Measurements T: 36.8 C (Oral) TMIN: 36.8 C (Oral) TMAX: 37.2 C (Oral) HR: 70 (Monitored) RR: 14 BP: 109/66 SpO2: 100% WT: 51.7 kg Intake and Output 7AM Yesterday to 7AM Today Intake and Output (Last 24 hours) Intake Oral Intake 84.00 Output Urine Voided 1325.00 Urine Count 1.00 Total Summary Total Intake 84.00 Total Output 1325.00 Fluid Balance -1241.00 Physical Exam Lungs: Bilateral, clear, respirations easy regular nonlabored, on room air with SaO2 of 100% Cough this morning is productive of clear mucus with slight pink tinge Heart: Regular S1-S2, monitor 1:1 V paced with occasional AV paced Midsternal incision and left anterior chest incisions, right groin incision healed Abdomen: Soft, nontender, bowel sounds present Neurological: Intact Extremities: Well-perfused PICC line in place Discharge plan: Home with mother Weight Current Weight Dosing Weight: 50.2 kg (10/24/24) Current Weight: 51.7 kg (10/30/24) Dosing Weight: 49.8 kg (10/20/24) Current Weight: 52.7 kg (10/29/24) Medications Medications (36) Active Scheduled: (15) acetaminophen 325 mg Tablet 650 mg 2 tab(s), Oral, q6h aspirin 81 mg Chewable 81 mg 1 tab(s), Oral, qDayM balsam [place]-castor oil topical 87 mg-788 mg/g UD packet oint 5g 1 kendrick, Topical, BID benzonatate 100 mg Capsule 200 mg 2 cap(s), Oral, TID ceFAZolin syringe 2 gram(s) 20 mL, IV Push (INT), q8h docusate sodium 100 mg Capsule 100 mg 1 cap(s), Oral, q12h enoxaparin 40 mg/ 0.4mL syringe 40 mg 0.4 mL, Subcutaneous, qDay furosemide 40 mg tablet 40 mg 1 tab(s), Oral, qDay menthol-zinc oxide topical ointment 4oz 1 kendrick, Topical, amhs midodrine 5 mg tablet 5 mg 1 tab(s), Oral, TID multivitamin (Chromagen Forte) with iron Vitamin B Complex with C, Folic Acid and Iron tablet 1 tab(s), Oral, qDay No metformin for 48 hrs post contrast 1 EA, Miscellaneous, Unscheduled oxycodone 5 mg/0.25 mL ORAL syringe 5 mg 0.25 mL, Oral, q8hr pantoprazole 40 mg EC tablet 40 mg 1 tab(s), Oral, qDayAC potassium chloride 20 mEq ER tablet 20 mEq 1 tab(s), Oral, qDay Continuous: (0) PRN: (21) acetaminophen 160 mg/5 mL Suspension 650 mg 20.31 mL, Oral, q6hr acetaminophen 325 mg Tablet 650 mg 2 tab(s), Oral, q4h acetaminophen 325 mg Tablet 650 mg 2 tab(s), Oral, q4h Al hydrox/Mg hydrox/simethicone 200-200-20 mg/5 mL Susp UD 30 mL, Oral, q2h albuterol 0.5% Milagro UD (2.5 mg/0.5 mL) 2.5 mg 0.5 mL, Inhalation, QIDRT benzocaine-menthol (Cepacol Sore Throat) 15 mg-3.6mg lozenge 1 lozenge(s), Oral, q2h bisacodyl 10 mg Suppository 10 mg 1 supp, Rectal, qDay dextrose 50% Solution Disp syringe 50 mL 25 gram(s) 50 mL, IV Push, AsDirected docusate sodium 100 mg Capsule 100 mg 1 cap(s), Oral, BID hydrocodone-homatropine (Hycodan Oral Syringe) 5 mg-1.5 mg/5 mL Syrup 5 mL, Oral, q6hr hydromorphone 2 mg tablet 1 mg 0.5 tab(s), Oral, q4h magnesium gluconate 500 mg tablet 500 mg 1 tab(s), Oral, BID magnesium hydroxide 8% Suspension 30 mL UD 30 mL, Oral, qDay magnesium sulfate PMX 2 gram(s) 50 mL, IV Piggyback, AsDirected menthol-zinc oxide topical ointment 4oz 1 kendrick, Topical, BID ondansetron 2 mg/ 1 mL 2 mL INJ 4 mg 2 mL, IV Push, q4h phenol topical 1.4% Spr 1 spray(s), Topical, q1h polyethylene glycol 3350 - UD packet 17 gram(s) 15 mL, Oral, qDay potassium chloride (PMX) 20 mEq/100 mL 20 mEq 100 mL, IV Piggyback, AsDirected potassium chloride (PMX) 20 mEq/100 mL 40 mEq 200 mL, IV Piggyback, AsDirected potassium chloride 10 mEq ER capsule 20 mEq 2 cap(s), Oral, AsDirected Lab Results 10/29 04:00 WBC: 7.5 Hgb: 8.5 L Hct: 25.8 L Platelet: 294 Neutrophil %: 67.1 Glucose Level: 79 Sodium Level: 140 Potassium Level: 4.4 BUN: 19.0 Creatinine Lvl (s): 0.93 Imaging Results and Diagnostics (10/30/2024 08:19 EDT XR Chest 1 View) ORIGINAL EXAMINATION: ONE XRAY VIEW OF THE CHEST10/30/2024 8:19 am COMPARISON: Chest x-ray 10/29/2024 HISTORY: ORDERING SYSTEM PROVIDED HISTORY: Reason for Exam: abnormal lung sounds FINDINGS: Cardiomediastinal contours are stable from prior exam. Sternotomy wires are visualized. Prosthetic heart valve is visualized. Pacemaker projects over the left thorax and leads are in stable position without evidence of lead fracture. There is a right PICC line terminates in the superior vena cava in stable position prior exam. Bilateral mixed alveolar and interstitial infiltrates stable from prior exam. No pneumothorax visualized. Improvement in left small pleural effusion. Small right pleural effusion is stable.. No acute osseous abnormalities. IMPRESSION: Bilateral lung infiltrates there are stable from prior exam. Improvement in small left pleural effusion. [1] Assessment/Plan 1. Endocarditis of tricuspid valve s/p Redo sternotomy, redo TVR using #27 CE MagnaEase, insertion of permanent epicardial wires 10/02/2024 On IV cefazolin for total of 6 weeks with end date of 11/13/2024 Oral antibiotic at time of discharge per ID -prescription has been left He will not go home with a PICC line 2. Asystole - S/P PPM 10/05/2024 1:1 V paced 3. Pulmonary hemorrhage Nursing reports coughing up 130 mL of fresh blood with clots last night Chest x-ray stable We will continue to monitor for now Currently his cough is productive of clear sputum with slight red tinge 4. Pleural effusion on right 5. Acute blood loss anemia 6. Thrombocytopenia 8. Staphylococcus aureus bacteremia 9. Septic pulmonary embolism S/P IR embolization on 10/10 and 10/12 10. IV drug abuse Patient was given a list of outpatient drug rehab resources per our medical case manager, patient has refused to do that as they are not close to where he lives per him States that he will be going to a facility and [place] 11. Tobacco use 12. S/P TVR (tricuspid valve replacement) 2023 13. History of tooth extraction 09/30/2024 Continue current treatment plan No further hemoptysis noted but will continue to monitor Scheduled oxycodone doses decreased to 5mg every 8 hours CBC and BMP in a.m. Chest x-ray today Continue to ambulate CBC, BMP in a.m. Patient seen and discussed with Dr. Messina [1] XR Chest 1 View; ALPHONSO SCHULER MD 10/30/2024 08:19 EDT Digitally Signed by CHEVY IYER on 10/30/2024 11:48 AM [facility] 10-30-2024 Note Exam Date Time Procedure Performing Provider Status 10/30/24 8:19 AM XR Chest 1 View ALPHONSO SCHULER MD; Aut h (Verified) [id number] ORIGINAL EXAMINATION: ONE XRAY VIEW OF THE CHEST10/30/2024 8:19 am COMPARISON: Chest x-ray 10/29/2024 HISTORY: ORDERING SYSTEM PROVIDED HISTORY: Reason for Exam: abnormal lung sounds FINDINGS: Cardiomediastinal contours are stable from prior exam. Sternotomy wires are visualized. Prosthetic heart valve is visualized. Pacemaker projects over the left thorax and leads are in stable position without evidence of lead fracture. There is a right PICC line terminates in the superior vena cava in stable position prior exam. Bilateral mixed alveolar and interstitial infiltrates stable from prior exam. No pneumothorax visualized. Improvement in left small pleural effusion. Small right pleural effusion is stable.. No acute osseous abnormalities. IMPRESSION: Bilateral lung infiltrates there are stable from prior exam. Improvement in small left pleural effusion.. I have personally reviewed the images of this examination and agree with the resident's findings and interpretation. Interpreted by: Alphonso Schuler MD Preliminary Report By: Yazmin Jovel Electronically signed By Alphonso Schuler MD Dictated Date: 10/30/2024 8:32:23 AM Prelim Date: 10/30/2024 8:50:43 AM Sign Date: 10/30/2024 8:50:43 AM Ordering Provider: [facility] IYER [id number] Note* Exam Date Time Procedure Performing Provider Status 10/29/24 10:29 PM XR Chest 1 View TYREL WIN MD; Auth (Verified) [id number] ORIGINAL EXAMINATION: ONE XRAY VIEW OF THE CHEST 10/29/2024 10:29 pm COMPARISON: Radiograph of the chest October 28, 2024 HISTORY: ORDERING SYSTEM PROVIDED HISTORY: Reason for Exam: hemoptysis FINDINGS: Given differences in patient positioning, mild increased hazy opacity in the left upper lung field. Otherwise no significant change from prior exam. IMPRESSION: Given differences in patient positioning, mild increased hazy opacity in the left upper lung field. Otherwise no significant change from prior exam. Interpreted by: Tyrel Win Preliminary Report By: Tyrel Win Electronically signed By Tyrel Win Dictated Date: 10/29/2024 11:57:12 PM Prelim Date: 10/29/2024 11:58:21 PM Sign Date: 10/29/2024 11:58:21 PM Ordering Provider: KIKA MESSINA [id number] Note Date of Service 10/29/2024 Chief Complaint POD #27 This is a 29-year-old male with past medical history of IV drug abuse, tricuspid valve endocarditisstatus post tricuspid valve replacement in 2023 at the [facility], MRSA bacteremiain the past who presented to [facility] emergency department with shortness of breath and chest pain on 09/22/2024. CTA of the chest was obtained that showed numerous persistent cavitary pulmonary nodules that were questionable for septic emboli. He was transferred to [facility] for further evaluation. On arrival, he was somnolent and difficult to arouse and was intubated. Toxicologyscreen was positive for amphetamines and cannabinoids. Blood cultures returned positive for Staph au reus. Echocardiogram showed a large mobile vegetation on the anterior leaflet of the tricuspid valve measuring 0.6 cm x 1.6 cm along with severe tricuspid stenosis and severe tricuspid regurgitation.Cardiothoracic surgery was consulted for tricuspid valve replacement. He was eventually liberated from mechanical ventilation. Dental extraction completed on 09/30/2024. Preoperatively he was transfused with RBCs and platelets. He underwent a redo sternotomy, redo tricuspid valve replacement using #27 Magna Ease with a warm beating heart and insertion of permanent epicardial pacemaker leads per Dr. Messina on 10/02/2024. Received DDAVP, Kcentra, and RBCs for coagulopathy. Chest tubes remain to have increased output and he received cryoprecipitate, platelets, and NovoSeven. Required the use of vasopressin for hemodynamic and blood pressure support. While on mechanical ventilation required ketamine, Precedex and propofol. One-to-one AV paced secondary to severe bradycardia. EP was consulted postop day #2 for evaluation for permanent pacer insertion. He he was extubated and transition to nasal cannula postop day #2. Chest tubes discontinued. PICC line inserted 10/04/2024. Diuresed. Postop day #3 required insertion of temporary pacemaker wire per cardiology secondary to loss of capture per temporary pacemaker. Antibiotics continue per ID. Transfer to stepdown. Permanent pacemaker inserted per cardiology on 10/05/2024. On postop day #7 he had acute hemoptysis, coughing up approximately 3 to 400 mL bright red blood. He was emergently intubated, bronchoscopy was performed, and then was sent for a CT of the chest which revealed multiple new/worse areas of consolidation that could represent areas of pulmonary hemorrhage, or new infectious or inflammatory processes. Bleeding resolved. Right chest tube inserted for pleural effusion. On postop day #9 he again developed acute hemoptysis. Rapid response was called. IR completed embolization to near complete occlusion of right bronchialartery using Gelfoam pledget. He remained on mechanical ventilation. The following day, while attempting to liberate from mechanical ventilation he began to cough up and suctioned for bright red blood from endotracheal tube. IR embolization was repeated on 10/12/2024. He was extubated later in the afternoon on postop day #11. Chest tubes discontinued. Postop day #13 he was transferred back to the [facility]. Cough productive of just light pink to clear sputum. Antibiotics are continued. The last several postop days treatment has been continued with diuresis, antibiotics, and ambulation has been encouraged. No further hemoptysis has been noted. He remains to require a significant amount of scheduled pain medication to control his postoperative pain. Postop day #18. All repeat surgical cultures are negative to date. Continue current antibiotic withan end date of 11/13/2024. Continue diuresis. Continue midodrine to help support blood pressure. H&H has been stable. Continued 1:1 paced. [1] POD #21/10/23/2024 continue current treatment, continue antibiotics as per infectious disease. Pain is still an issue for the patient despite scheduled oxycodone 10 mg every 4 hours. Increase activity.Discussed with patient today regarding slowly weaning the Oxy. He is agreeable. Oxy changed to q 6 hrs. [1] POD #22 7 01/05/2025 continue current treatment, continue cefazolin as per infectious disease plan. Patient did well overnight with oxycodone every 6 hours instead of every 4 hours along with scheduled Tylenol every 6 hours. He has been ambulating well. [1] POD #23 no current changes in medical therapy, continue to encourage activity and ambulation, continue IV antibiotics as per ID, discharge plan pending [1] POD#24: Infectious disease provided a paper script for PO Keflex at time of discharge. Oxycodone frequency decreased to Q8h. No further changes to medical therapy. [1] POD #25: Patient did well with decreasing oxycodone frequency. No other changes to current medical therapy. Continue to encourage ambulation and p.o. intake. POD #26: Continue antibiotics. No changes to current medical therapy. [1] POD #27-no new changes, continue current antibiotics, continue to encourage ambulation and pulmonary hygiene Subjective Sitting up in bed, watching TV, no new complaints Objective Vitals and Measurements T: 36.7 C (Oral) TMIN: 36.6 C (Oral) TMAX: 36.8 C (Oral) HR: 70 (Monitored) RR: 22 BP: 109/68 SpO2:98% WT: 52.7 kg Intake and Output 7AM Yesterday to 7AM Today Intake and Output (Last 24 hours) Intake Oral Intake 820.00 Supplement Intake 0.00 Output Urine Voided 1475.00 Total Summary Total Intake 820.00 Total Output 1475.00 Fluid Balance -655.00 Physical Exam Neuro oriented x 3, appropriate Lungs clear bilaterally anterior and posterior, room air SaO2 98% Heart S1 and S2, one-to-one AV paced at 70 Abdomen flat soft nontender bowel sounds present, positive bowel movement Extremities well-perfused no edema pedal pulses +2/3 Skin midsternal chest incision open to air well-approximated and well-healed, left anterior upper chest incision/permanent pacemaker site open to air well- approximated and no drainage Right upper arm PICC line intact Weight Current Weight Dosing Weight: 50.2 kg (10/24/24) Current Weight: 52.7 kg (10/29/24) Dosing Weight: 49.8 kg (10/20/24) Current Weight: 52.9 kg (10/27/24) Medications Medications (37) Active Scheduled: (15) acetaminophen 325 mg Tablet 650 mg 2 tab(s), Oral, q6h aspirin 81 mg Chewable 81 mg 1 tab(s), Oral, qDayM balsam [place]-castor oil topical 87 mg-788 mg/g UD packet oint 5g 1 kendrick, Topical, BID benzonatate 100 mg Capsule 200 mg 2 cap(s), Oral, TID ceFAZolin syringe 2 gram(s) 20 mL, IV Push (INT), q8h docusate sodium 100 mg Capsule 100 mg 1 cap(s), Oral, q12h enoxaparin 40 mg/ 0.4mL syringe 40 mg 0.4 mL, Subcutaneous, qDay furosemide 40 mg tablet 40 mg 1 tab(s), Oral, qDay menthol-zinc oxide topical ointment 4oz 1 kendrick, Topical, amhs midodrine 5 mg tablet 5 mg 1 tab(s), Oral, TID multivitamin (Chromagen Forte) with iron Vitamin B Complex with C, Folic Acid and Iron tablet 1 tab(s), Oral, qDay No metformin for 48 hrs post contrast 1 EA, Miscellaneous, Unscheduled oxycodone 5 mg/0.25 mL ORAL syringe 10 mg 0.5 mL, Oral, q8hr pantoprazole 40 mg EC tablet 40 mg 1 tab(s), Oral, qDayAC potassium chloride 20 mEq ER tablet 20 mEq 1 tab(s), Oral, qDay Continuous: (0) PRN: (22) acetaminophen 160 mg/5 mL Suspension 650 mg 20.31 mL, Oral, q6hr acetaminophen 325 mg Tablet 650 mg 2 tab(s), Oral, q4h acetaminophen 325 mg Tablet 650 mg 2 tab(s), Oral, q4h Al hydrox/Mg hydrox/simethicone 200-200-20 mg/5 mL Susp UD 30 mL, Oral, q2h albuterol 0.5% Milagro UD (2.5 mg/0.5 mL) 2.5 mg 0.5 mL, Inhalation, QIDRT benzocaine-menthol (Cepacol Sore Throat) 15 mg-3.6mg lozenge 1 lozenge(s), Oral, q2h bisacodyl 10 mg Suppository 10 mg 1 supp, Rectal, qDay dextrose 50% Solution Disp syringe 50 mL 25 gram(s) 50 mL, IV Push, AsDirected docusate sodium 100 mg Capsule 100 mg 1 cap(s), Oral, BID hydrocodone-homatropine (Hycodan Oral Syringe) 5 mg-1.5 mg/5 mL Syrup 5 mL, Oral, q6hr hydromorphone 2 mg tablet 1 mg 0.5 tab(s), Oral, q4h magnesium gluconate 500 mg tablet 500 mg 1 tab(s), Oral, BID magnesium hydroxide 8% Suspension 30 mL UD 30 mL, Oral, qDay magnesium sulfate PMX 2 gram(s) 50 mL, IV Piggyback, AsDirected menthol-zinc oxide topical ointment 4oz 1 kendrick, Topical, BID ondansetron 2 mg/ 1 mL 2 mL INJ 4 mg 2 mL, IV Push, q4h phenol topical 1.4% Spr 1 spray(s), Topical, q1h phenylephrine 10 mg/mL 1mL vial 100 mcg 0.01 mL, IV Push, AsDirected polyethylene glycol 3350 - UD packet 17 gram(s) 15 mL, Oral, qDay potassium chloride (PMX) 20 mEq/100 mL 20 mEq 100 mL, IV Piggyback, AsDirected potassium chloride (PMX) 20 mEq/100 mL 40 mEq 200 mL, IV Piggyback, AsDirected potassium chloride 10 mEq ER capsule 20 mEq 2 cap(s), Oral, AsDirected Lab Results 10/29 04:00 WBC: 7.5 Hgb: 8.5 L Hct: 25.8 L Platelet: 294 Neutrophil %: 67.1 Glucose Level: 79 Sodium Level: 140 Potassium Level: 4.4 BUN: 19.0 Creatinine Lvl (s): 0.93 10/28 04:19 Glucose Level: 83 Sodium Level: 138 Potassium Level: 4.3 BUN: 17.0 Creatinine Lvl (s): 0.81 EKG No qualifying data available. Assessment/Plan 1. Endocarditis of tricuspid valve s/p Redo sternotomy, redo TVR using #27 CE MagnaEase, insertion of permanent epicardial wires 10/02/2024 One-to-one AV paced via permanent pacemaker Currently on cefazolin for total 6 weeks with an end date of 11/13/2024, ID has left prescription for oral antibiotics at time of discharge as patient will be going home and cannot be discharged with PICC line 2. Asystole - S/P PPM 10/05/2024 One-to-one V paced at 70 3. Pulmonary hemorrhage Resolved 4. Pleural effusion on right 5. Acute blood loss anemia 6. Thrombocytopenia 7. Staphylococcus aureus bacteremia On cefazolin, ID is signed off and left prescription for p.o. Keflex at time of discharge as patient will be going home with his mom 8. IV drug abuse Patient was given a list of outpatient drug rehab resources per our medical case manager, patient has refused to do that as they are not close to where he lives per him States that he will be going to a facility and [place] 9. S/P TVR (tricuspid valve replacement) 2023 One-to-one AV paced at 70 10. Septic pulmonary embolism 11. Sinus tachycardia 12. Right groin Enlarged lymph node s/p Excision 10/02/24 13. History of tooth extraction 09/30/2024 Plan: Continue current medication regimen, no new complaints from patient, he is ambulating well inthe hallway and anxious to go home which we are planning in a few days Discussed patient with Dr. Messina, no new orders [1] Progress Note; ROSA ISELA CORONA PA-C 10/28/2024 15:36 EDT Digitally Signed by ALVARO CARRILLO on 10/29/2024 10:02 AM [id number]* Exam Date Time Procedure Performing Provider Status 10/28/24 5:25 AM XR Chest 1 View SHANNA HAYWOOD MD; [facility] (Verified) [id number] ORIGINAL EXAMINATION: ONE XRAY VIEW OF THE CHEST 10/28/2024 5:25 am COMPARISON: None. HISTORY: ORDERING SYSTEM PROVIDED HISTORY: Reason for Exam: decreased breath sounds IMPRESSION: Left-sided cardiac pacer device. Sternotomy wires are present the chest wall. Right subclavian central venous catheter tube terminates near the cavoatrial junction. Interstitial and alveolar haziness throughout the lungs bilaterally. Small right effusion. No pneumothorax. Stable airspace disease at the right lung base. Interpreted by: Shanna Haywood MD Preliminary Report By: Shanna Haywood MD Electronically signed By Shanna Haywood MD Dictated Date: 10/28/2024 6:32:41 AM Prelim Date: 10/28/2024 6:33:11 AM Sign Date: 10/28/2024 6:33:11 AM Ordering Provider: ROSA ISELA CORONA [id number] Note Date of Service 10/25/24 Reason for Consultation Admission From: Home Follow up Skin Team Findings Vitals and Measurements T: 36.7 C (Oral) TMIN: 36.7 C (Oral) TMAX: 37 C (Oral) HR: 71 (Monitored) RR: 18 BP: 110/65 SpO2: 97% Pressure Area Details ------Pressure Area------ Buttock Right - Pressure Area Description: Closed/Resurfaced, Epithelialization hypopigmentation noted Lip Outer, Upper - Pressure Area Depth: 0.1 cm Lip Outer, Upper - Pressure Area Description: Brown, Crusting 100% Lip Outer, Upper - Pressure Area Drainage: None Lip Outer, Upper - Pressure Area Dressing Activity: Assessed Lip Outer, Upper - Pressure Area Dressing Description: Open to Air Lip Outer, Upper - Pressure Area Due to Church Organist: ET tube sotelo Lip Outer, Upper - Pressure Area Length: 0.2 cm Lip Outer, Upper - Pressure Area Surrounding Tissue: Pigmentation decreased Lip Outer, Upper - Pressure Area Width: 0.4 cm Lip Outer, Upper - Pressure Ulcer Present On Admission: No Lip Outer, Upper - Pressure Ulcer Stage: Mucosal membrane injury Lip Outer, Upper - Status: Improving ------Pressure Area Measurements------ Lip Outer, Upper - Pressure Area Depth: 0.1 cm Lip Outer, Upper - Pressure Area Length: 0.2 cm Lip Outer, Upper - Pressure Area Width: 0.4 cm Assessments and Recommendations ------Assessments------ Current Skin/Wound Interventions: Low air loss mattress, Transparent silicone dressing, Turn and reposition every 2 hours Present For Wound Observation: Nurse ------Recommendations------ Recommended Skin/Wound Interventions: Low air loss mattress, Seat cushion, Heel protectors, Pressure relief ankle/foot boot, Turn and position system, Barrier cream, Turn and reposition every 2 hours, Consult Dietitian, Proposed orders sent to physician, Other: calmoseptine, turn side to side sagra, venelex to heel protection, monitor lip ulcers & addjust respiratory device PRN 10/25: No lunger intubated. Patient up & walking around. Continue calmoseptine or foam for protection on buttocks Education Individuals Taught: Patient Learning Readiness: Willing to learn Barriers to Learning: None evident Teaching Method: Explanation Problem List/Past Medical History Ongoing Acute blood loss anemia Anemia Asystole Bacteremia Coagulopathy Endocarditis of tricuspid valve History of tooth extraction IV drug abuse Septic pulmonary embolism Sinus tachycardia Historical History of MRSA infection Digitally Signed by CANDELARIO Ha on 10/25/2024 08:57 AM [id number] Note* Exam Date Time Procedure Performing Provider Status 10/22/24 5:20 AM XR Chest 1 View WILLY FERNANDES MD; A [facility] (Verified) [id number] ORIGINAL EXAMINATION: ONE XRAY VIEW OF THE CHEST 10/22/2024 5:20 am COMPARISON: Chest x-ray on 10/20/2024 HISTORY: ORDERING SYSTEM PROVIDED HISTORY: Reason for Exam: decreased breath sounds FINDINGS: Right arm PICC line tip is in the superior vena cava. Epicardial pacemaker is unchanged. Mild cardiomegaly is stable with prosthetic mitral valve in place. Small bilateral pleural effusions are unchanged with patchy multifocal bilateral airspace disease. There is no pneumothorax. No new abnormality has developed. IMPRESSION: Stable chest with small bilateral pleural effusions and multifocal bilateral infiltrates. Interpreted by: Willy Fernandes MD Preliminary Report By: Willy Fernandes MD Electronically signed By Willy Fernandes MD Dictated Date: 10/22/2024 5:45:34 AM Prelim Date: 10/22/2024 5:46:48 AM Sign Date: 10/22/2024 5:46:48 AM Ordering Provider: MAYLIN FIELDS Interpreted by: Willy Fernandes MD Preliminary Report By: Willy Fernandes MD Electronically signed By Willy Fernandes MD Dictated Date: 10/22/2024 5:45:34 AM Prelim Date: 10/22/2024 5:46:48 AM Sign Date: 10/22/2024 5:46:48 AM Ordering Provider: MAYLIN FIELDS [facility] [id number] Note* Exam Date Time Procedure Performing Provider Status 10/20/24 5:37 AM XR Chest 1 View WILLY FERNANDES MD; A [facility] (Verified) [id number] ORIGINAL EXAMINATION: ONE XRAY VIEW OF THE CHEST 10/20/2024 5:38 am COMPARISON: Chest x-ray on 10/16/2024 HISTORY: ORDERING SYSTEM PROVIDED HISTORY: Reason for Exam: decreased breath sounds FINDINGS: Right arm PICC line tip is in the superior vena cava. Left sided epicardial pacemaker is unchanged. Cardiomegaly stable with prosthetic heart valve in place. There are widespread heterogeneous lung infiltrates bilaterally. There is mild improvement in right mid and lower lung zone since prior exam. There is a small amount of pleural fluid bilaterally that is stable. No pneumothorax is present. IMPRESSION: Persistent widespread bilateral lung infiltrates with mild improvement in right mid and lower lung zone. Small bilateral pleural effusions. Interpreted by: Willy Fernandes MD Preliminary Report By: Willy Fernandes MD Electronically signed By Willy Fernandes MD Dictated Date: 10/20/2024 5:48:00 AM Prelim Date: 10/20/2024 5:49:30 AM Sign Date: 10/20/2024 5:49:30 AM Ordering Provider: MAYLIN FIELDS Interpreted by: Willy Fernandes MD Preliminary Report By: Willy Fernandes MD Electronically signed By Willy Fernandes MD Dictated Date: 10/20/2024 5:48:00 AM Prelim Date: 10/20/2024 5:49:30 AM Sign Date: 10/20/2024 5:49:30 AM Ordering Provider: MAYLIN FIELDS [id number] Note Date of Service 10/18/24 Reason for Consultation Admission From: Home Follow up Skin Team Findings Vitals and Measurements T: 37.1 C (Oral) TMIN: 37.1 C (Oral) TMAX: 37.8 C (Oral) HR: 71 (Monitored) RR: 18 BP: 115/62 SpO2:96% WT: 49.8 kg Pressure Area Details ------Pressure Area------ Buttock Right - Pressure Area Depth: 0.1 cm Buttock Right - Pressure Area Description: Dermal tissue 75%, Epithelialization (healed bridge now with 2 areas measured together) Buttock Right - Pressure Area Drainage: Scant, Serosanguineous Buttock Right - Pressure Area Dressing Activity: Assessed Buttock Right - Pressure Area Epithelialization %: 25 % Buttock Right - Pressure Area Length: 4.2 cm Buttock Right - Pressure Area Surrounding Tissue: Normal skin tone Buttock Right - Pressure Area Width: 3 cm Buttock Right - Pressure Area Wound Edges: Attached Buttock Right - Pressure Ulcer Present On Admission: No Buttock Right - Pressure Ulcer Stage: Stage 3 Buttock Right - Status: Improving Lip Outer, Upper - Pressure Area Depth: 0.1 cm Lip Outer, Upper - Pressure Area Description: Brown, Crusting Lip Outer, Upper - Pressure Area Drainage: None Lip Outer, Upper - Pressure Area Dressing Description: Open to Air Lip Outer, Upper - Pressure Area Due to Church Organist: ET tube sotelo (no longer intubated) Lip Outer, Upper - Pressure Area Length: 0.5 cm Lip Outer, Upper - Pressure Area Surrounding Tissue: Normal skin tone Lip Outer, Upper - Pressure Area Width: 1.5 cm Lip Outer, Upper - Pressure Area Wound Edges: Attached Lip Outer, Upper - Pressure Ulcer Present On Admission: No Lip Outer, Upper - Pressure Ulcer Stage: Mucosal membrane injury Lip Outer, Upper - Status: Improving inner lip resolve ------Pressure Area Measurements------ Buttock Right - Pressure Area Depth: 0.1 cm Buttock Right - Pressure Area Length: 4.2 cm Buttock Right - Pressure Area Width: 3 cm Lip Outer, Upper - Pressure Area Depth: 0.1 cm Lip Outer, Upper - Pressure Area Length: 0.5 cm Lip Outer, Upper - Pressure Area Width: 1.5 cm Assessments and Recommendations ------Assessments------ Current Skin/Wound Interventions: Low air loss mattress, Transparent silicone dressing, Turn and reposition every 2 hours Present For Wound Observation: Nurse ------Recommendations------ Recommended Skin/Wound Interventions: Low air loss mattress, Seat cushion, Heel protectors, Pressure relief ankle/foot boot, Turn and position system, Barrier cream, Turn and reposition every 2 hours, Consult Dietitian, Proposed orders sent to physician, Other: calmoseptine, turn side to side sagar, venelex to heel protection, monitor lip ulcers & adjust respiratory device PRN 10/18 Continue treatment Education No qualifying data available. 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 in 2023, hepatitis C, thrombocytopenia, tobacco use. Patient presented to [facility] ED with febrile illness, dyspneaand chest pain on 09/22. He was transferred to [place] and subsequently intubated for acute hypoxemicrespiratory failure in setting of septic shock, recurrent endocarditis and bacteremia (strep, staphaureus). Patient was treated for septic shock and TAMIE in MICU. Extubated /. Presents to ICU today s/p redo sternotomy for redo tricuspid valve replacement with Dr. Messina. Arrives intubated and sedated. Received plt, DDAVP, k-centra, cell-saver intra-op. Arrives on no vasoactive gtts. POD#1: No acute events overnight. Remains intubated and sedated. HDS. Bleeding has stopped. CXR stable. No vasoactive gtts. Giving 1 PRBC and calcium chloride this morning. Starting diuresis. POD#2: No acute events overnight. Now on room air. Awake, alert, HDS. Pain controlled. POD#3: Late yesterday evening, epicardial wires failed. Patient underwent temp pacing wire placement in cath lab technologist. Scheduled for PPM today. Awake, alert, HDS. Strong cough. Tolerating diet. POD#4: No events overnight. Awake, alert, HDS. Breathing comfortably on room air. POD#5: No acute events overnight. Complains of bilateral foot pain. Awake, alert, breathing comfortably on room air. OOB to chair. tolerating diet. POD#6: No acute events overnight. Requesting IV fentanyl of surgical incision pain. Sitting up in wheelchair, watching TV. Having BMs per patient. POD#7: No acute events overnight. Later in the evening patient had acute episode of hemoptysis (350-400mls bright red blood, no clots). Emergently intubated and sent for CT angio imaging. POD#8: Remained intubated and sedated overnight. Bronch showed blood in right lung without significant refilling. On pressors. Right chest tube placed at bedside this morning. 300mls drained into atrium upon placement. CT concerning for pulmonary hemorrhage with possible infectious underlying process POD#9: Extubated yesterday. Coughing episode in early evening resulted in gross hemoptysis requiring re-intubation. Taken to IR for embolization. No active bleed seen but right bronchial artery embolized which appeared to correlate with cavitary process in right mid-lung. Weaned pressors overnight. POD#10: Ongoing episodes of bright red blood in ETT when coughing. Awake, nodding appropriately. Onand off pressors. Organizing return to IR POD#11: Extubated yesterday afternoon. Episode of hemoptysis. Advised low threshold for intubation/trach placement. IR yesterday with additional embolizations POD#12: Ongoing productive coughing with clots last night. Bright red with fibrous tissue present during coughing episode this morning. Remains 2L O2 NC. Tolerating diet. POD#13: Noted to have powder at bedside and concern for inhaling medications. Ongoing cough with brown, dark blood and mucus. POD#14: Ambulating. On abx. POD#15: Doing well. Assessment: -TVIE s/p redo tricuspid valve replacement with Dr. Messina on 10/02/24 -ABLA -Pulmonary hemorrhage -Septic emboli -Consumptive coagulopathy -Thrombocytopenia -Leukocytosis -Stress hyperglycemia -Hx IVDU -Hepatitis C Plan: -IR 10/11 and 10/12 with right bronchial artery embolizations -S/p PPM placement 10/05. Device interrogation requested. EP adjusted pace maker. DCCV on hold -IR removed femoral sheath on 10/13 -Bronchoscopy on 10/11 removed stringy mucoid bloody secretions -Diuresis ongoing -On midodrine -Continue rishi bowel reg -Continue abx, ID following. PICC placed 10/04 -No insulin requirement -Continue multi-modal pain regimen -Discussed with CTS on unit -CCM will follow -Awaiting discharge planning Allergies: NKA Objective: Vitals Signs(Last 24 hrs)__ Last Charted Minimum Maximum Temp H 37.8(OCT 17 15:53) 36.7(OCT 17 11:06) H 37.5(OCT 16 19:04) Heart Rate 71(OCT 17 15:53) 70(OCT 16 19:04) 71(OCT 16 23:33) SBP 123(OCT 17 15:53) 110(OCT 16 23:33) 125(OCT 17 11:06) DBP 66(OCT 17 15:53) 66(OCT 17 15:53) 74(OCT 17 07:45) Intake and Output (Last 24 hours) Intake Oral Intake 1315.00 Supplement Intake 0.00 Output Urine Voided 3800.00 Stool Count 0.00 Total Summary Total Intake 1315.00 Total Output 3800.00 Fluid Balance -2485.00 PHYSICAL EXAM: GENERAL: Thin female in no respiratory distress SKIN: warm and dry, no rashes noted HEENT: atraumatic normocephalic.oral mucus membranes moist HEART: PAced 70 LUNGS: clear to auscultation bilaterally ABDOMEN: soft,, non tender,, bowel sounds normal MUSCULOSKELETAL: Spontaneously moves all extremities x 4. VASCULAR: Bilateral pedal and radial pulses are palpable +2 and symmetric. 1+ edema noted NEURO: Alert. Oriented to person, place, and time. Follows commands. Labs: No qualifying data. Imaging: XR Chest 1 View Result Date: October 16, 2024 Verified By: WILLY FERNANDES MD CLINICAL STATEMENT: IMPRESSION: Unchanged bilateral lung infiltrates and small bilateral pleural effusions. Pertinent Reviewed: Allergies, Medications, Labs, Imaging, and Physician and Nursing Notes. Critical Care services I provided [id number] 25 minutes. The time involved in the performance of this care was exclusive of separately billable procedures, teaching time, and treating other patients. The time was spent personally by myself for the following activities: examination of the patient, ordering and/or performing treatment, reviewing the laboratory and radiographic studies and if applicable,ventilator management and blood gas interpretation. Patient treatment plan of care discussed with Dr. Messina. 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 in 2023, hepatitis C, thrombocytopenia, tobacco use. Patient presented to [facility] ED with febrile illness, dyspneaand chest pain on 09/22. He was transferred to [place] and subsequently intubated for acute hypoxemicrespiratory failure in setting of septic shock, recurrent endocarditis and bacteremia (strep, staphaureus). Patient was treated for septic shock and TAMIE in MICU. Extubated 09/29. Presents to ICU today s/p redo sternotomy for redo tricuspid valve replacement with Dr. Messina. Arrives intubated and sedated. Received plt, DDAVP, k-centra, cell-saver intra-op. Arrives on no vasoactive gtts. POD#1: No acute events overnight. Remains intubated and sedated. HDS. Bleeding has stopped. CXR stable. No vasoactive gtts. Giving 1 PRBC and calcium chloride this morning. Starting diuresis. POD#2: No acute events overnight. Now on room air. Awake, alert, HDS. Pain controlled. POD#3: Late yesterday evening, epicardial wires failed. Patient underwent temp pacing wire placement in cath lab technologist. Scheduled for PPM today. Awake, alert, HDS. Strong cough. Tolerating diet. POD#4: No events overnight. Awake, alert, HDS. Breathing comfortably on room air. POD#5: No acute events overnight. Complains of bilateral foot pain. Awake, alert, breathing comfortably on room air. OOB to chair. tolerating diet. POD#6: No acute events overnight. Requesting IV fentanyl of surgical incision pain. Sitting up in wheelchair, watching TV. Having BMs per patient. POD#7: No acute events overnight. Later in the evening patient had acute episode of hemoptysis (350-400mls bright red blood, no clots). Emergently intubated and sent for CT angio imaging. POD#8: Remained intubated and sedated overnight. Bronch showed blood in right lung without significant refilling. On pressors. Right chest tube placed at bedside this morning. 300mls drained into atrium upon placement. CT concerning for pulmonary hemorrhage with possible infectious underlying process POD#9: Extubated yesterday. Coughing episode in early evening resulted in gross hemoptysis requiring re-intubation. Taken to IR for embolization. No active bleed seen but right bronchial artery embolized which appeared to correlate with cavitary process in right mid-lung. Weaned pressors overnight. POD#10: Ongoing episodes of bright red blood in ETT when coughing. Awake, nodding appropriately. Onand off pressors. Organizing return to IR POD#11: Extubated yesterday afternoon. Episode of hemoptysis. Advised low threshold for intubation/trach placement. IR yesterday with additional embolizations POD#12: Ongoing productive coughing with clots last night. Bright red with fibrous tissue present during coughing episode this morning. Remains 2L O2 NC. Tolerating diet. POD#13: Noted to have powder at bedside and concern for inhaling medications. Ongoing cough with brown, dark blood and mucus. POD#14: Ambulating. On abx. Assessment: -TVIE s/p redo tricuspid valve replacement with Dr. Messina on 10/02/24 -ABLA -Pulmonary hemorrhage -Septic emboli -Consumptive coagulopathy -Thrombocytopenia -Leukocytosis -Stress hyperglycemia -Hx IVDU -Hepatitis C Plan: -IR 10/11 and 10/12 with right bronchial artery embolizations -S/p PPM placement 10/05. Device interrogation requested. EP adjusted pace maker. DCCV on hold -IR removed femoral sheath on 10/13 -Bronchoscopy on 10/11 removed stringy mucoid bloody secretions -Diuresis ongoing -Decreased midodrine dose -Continue rishi bowel reg -Continue abx, ID following. PICC placed 10/04 -No insulin requirement -Continue multi-modal pain regimen -Discussed with CTS on unit -CCM will follow Allergies: NKA Objective: Vitals Signs(Last 24 hrs)__ Last Charted Minimum Maximum Temp H 37.8(OCT 16 11:15) 36.9(OCT 16 03:33) 37.1(OCT 15 19:04) Heart Rate 71(OCT 16 11:15) 70(OCT 15 19:04) 72(OCT 16 07:19) SBP 118(OCT 16 11:15) 114(OCT 15 22:46) 135(OCT 15 19:04) DBP 78(OCT 16 11:15) 64(OCT 16 03:33) H 94(OCT 15 19:04) Intake and Output (Last 24 hours) Intake Oral Intake 480.00 Supplement Intake 0.00 Output Urine Voided 3650.00 Stool Count 1.00 Total Summary Total Intake 480.00 Total Output 3650.00 Fluid Balance -3170.00 PHYSICAL EXAM: GENERAL: Thin male in no respiratory distress, resting peacefully in bed. SKIN: warm and dry, no rashes noted HEENT: atraumatic normocephalic. HEART: Paced at 70 LUNGS: Equal chest rise. normal RR MUSCULOSKELETAL: Spontaneously moves all extremities x 4. Labs: Event Name Event Result Date/Time WBC 9.5 10^3/mcL 10/16/24 03:46:00 Hgb 10.3 G/dL Low 10/16/24 03:46:00 Hct 30.4 % Low 10/16/24 03:46:00 Platelet 344 10^3/mcL 10/16/24 03:46:00 Glucose Level 92 mg/dL 10/16/24 03:46:00 Sodium Level 137 mEq/L 10/16/24 03:46:00 Potassium Level 4.4 mEq/L 10/16/24 03:46:00 Chloride 99 mEq/L 10/16/24 03:46:00 CO2 27 mEq/L 10/16/24 03:46:00 BUN 11 mg/dL 10/16/24 03:46:00 Creatinine Lvl (s) 0.7 mg/dL 10/16/24 03:46:00 Imaging: XR Chest 1 View Result Date: October 16, 2024 Verified By: WILLY FERNANDES MD CLINICAL STATEMENT: IMPRESSION: Unchanged bilateral lung infiltrates and small bilateral pleural effusions. Pertinent Reviewed: Allergies, Medications, Labs, Imaging, and Physician and Nursing Notes. Critical Care services I provided [id number] 25 minutes. The time involved in the performance of this care was exclusive of separately billable procedures, teaching time, and treating other patients. The time was spent personally by myself for the following activities: examination of the patient, ordering and/or performing treatment, reviewing the laboratory and radiographic studies and if applicable,ventilator management and blood gas interpretation. Patient treatment plan of care discussed with CTS KENDRICK. Dayna Deleon MD Cardiac Critical Care Digitally Signed by DAYNA DELEON MD on 10/16/2024 04:15 PM [facility] [id number] Note* Exam Date Time Procedure Performing Provider Status 10/16/24 5:37 AM XR Chest 1 View WILLY FERNANDES MD; [facility] (Verified) [id number] ORIGINAL EXAMINATION: ONE XRAY VIEW OF THE CHEST 10/16/2024 5:37 am COMPARISON: Chest x-ray on 10/15/2024 HISTORY: ORDERING SYSTEM PROVIDED HISTORY: Reason for Exam: decreased breath sounds FINDINGS: Right arm PICC line tip is in the superior vena cava. Epicardial pacemaker is unchanged. Cardiomegaly is stable with prosthetic heart valve in place. Widespread bilateral lung infiltrates with mixed interstitial and airspace opacities are unchanged. Small bilateral pleural effusions are stable. There is no pneumothorax. IMPRESSION: Unchanged bilateral lung infiltrates and small bilateral pleural effusions. Interpreted by: Willy Fernandes MD Preliminary Report By: Willy Fernandes MD Electronically signed By Willy Fernandes MD Dictated Date: 10/16/2024 5:45:39 AM Prelim Date: 10/16/2024 5:47:05 AM Sign Date: 10/16/2024 5:47:05 AM Ordering Provider: MAYLIN FIELDS Interpreted by: Willy Fernandes MD Preliminary Report By: Willy Fernandes MD Electronically signed By Willy Fernandes MD Dictated Date: 10/16/2024 5:45:39 AM Prelim Date: 10/16/2024 5:47:05 AM Sign Date: 10/16/2024 5:47:05 AM Ordering Provider: MAYLIN FIELDS [id number] Note IR Procedure Record Summary Primary Physician: MAHSA CHONG DO Finalized Date/Time: 10/15/24 16:28:47 Pt. Name: SAM JIMENEZ /Sex: 1995 Male Med Rec #: [id number] Physician: JOSEP DESHPANDE MD Financial #: [id number] Pt. Type: I Room/Bed: [facility]/ Admit/Disch: 09/22/24 11:34:00 - Institution: Allergies identified in patient's electronic medical record at time of printing on 10/15/24 Entry 1 Substance NKA Reaction Type Allergy Last Modified By: CANDELARIO Whyte 12/25/15 09:20:06 Case Attendance- IR Entry 1 Entry 2 Entry 3 Case Attendee MAHSA CHONG, RN Rivera Morgan Role Performed Primary Surgeon Procedure Nurse Circulating Technologist Details Time In 10/12/24 11:26:00 10/12/24 11:12:00 10/12/24 11:12:00 Time Out 10/12/24 12:48:00 10/12/24 13:02:00 10/12/24 13:02:00 Procedure/Preference IR Embolization Any IR Embolization Any IR Embolization Any Card Method SN Method SN Method SN Last Modified By: Rivera Baez Brandon L Leggett, Brandon L 10/12/24 13:04:09 10/12/24 13:04:09 10/12/24 13:04:09 Entry 4 Case Attendee Escobar Chávez Role Performed Scrub Technologist Details Time In 10/12/24 11:12:00 Time Out 10/12/24 13:02:00 Procedure/Preference IR Embolization Any Card Method SN Last Modified By: Rivera Baez 10/12/24 13:04:09 Radiology Procedures- IR Entry 1 Procedure/Preference IR Embolization Any Actual Procedure Embo Card Method SN Primary Procedure Yes Primary Surgeon MAHSA CHONG DO Anesthesia/Sedation None Type Additional Procedure Times Start 10/12/24 11:26:00 Stop 10/12/24 12:48:00 Specialty Service SN Radiology Procedure EBL 2 mL Last Modified By: Rivera Baez 10/12/24 13:04:15 Radiology Procedure Details - IR Entry 1 Radiology Sedation Case Times Sedation Total Time 0 min Radiology - Fluid/Drainage Radiology Contrast Contrast Used? Yes Dose 112 mL Medication CONTRAST ISOVUE 370/500ML IBP 6/CA 449207 Radiology Flouroscopy Fluoroscopy Used? Yes Fluoro Dose (mGy) 369.01 Fluoro Time 19.9 Radiology Local Local Used? No Radiology Procedure Site Site/Location lt groin Site Condition No complications Dressing Type Bioclusive 4 X 5, Gauze sponge 4 X 4 Last Modified By: Rivera Baez 10/12/24 13:03:35 General Case Data - IR Entry 1 Case Information Room IR 18 Case Level IR Level 4 Wound Class None Specialty SN Radiology Procedure ASA Class None Diagnosis Preop Diagnosis sepsis Postop Same As Preop Yes Postop Diagnosis sepsis Last Modified By: Rivera Baez 10/12/24 11:25:09 Procedure Case Times- IR Entry 1 Patient In Procedure Patient In OR 10/12/24 11:12:00 Patient Out of OR 10/12/24 13:02:00 Procedure Start/Stop Procedure Start Time 10/12/24 11:26:00 Procedure Stop Time 10/12/24 12:48:00 Last Modified By: Rivera Baez 10/12/24 13:04:00 Immediate Post OP Note - IR Entry 1 Immediate Post Yes Procedure Note displayed for Physician to review Closure Technique Closure Technique Other than Primary Last Modified By: Rivera Baez 10/12/24 11:24:49 Immediate Post OP Note - IR Signed By: MAHSA CHONG DO 10/12/24 13:00 Allergy Information- IR Entry 1 Allergies Reviewed? Yes Allergies Reviewed Medical Record With Last Modified By: Rivera Baez 10/12/24 11:22:58 Radiology Protocols/Time Out- IR Entry 1 Preprocedure Clinician Verifies Correct patient ID When Clinically Confirmation of correct using name & date Indicated side(s) and site(s), or MRN, Accurate Correct diagnostic and procedure, complete radiology tests Informed Consent, H & P available, Required update immediately blood products, prior to procedure, if implants, devices applicable, Anesthesia and/or special personnel completed equipment available assessment of allergies, airway, and aspiration risk. OR/Procedure Room/Bedside Time 10/12/24 11:26:00 Clinician Verifies Correct patient identity including EMR & records using name and date or medical record number, Accurate procedure consent form, Correct patient position, Necessary equipment is available, Anticipated non-routine events with surgical team (case duration, estimated blood loss, patient specific concerns)., Levy patient factors for recovery and management identified with surgical team. When Applicable Confirmation correct Team Members MAHSA CHONG DO, side and site marked, Present for Time Out CANDELARIO Paige, Relevant images and Rivera Baez, results are properly Escobar Chávez labeled and L appropriately displayed, Alcohol based prep dry, Double verification of sterility indicators complete Instrument Sterility Team Members Escobar Chávez Verifying Sterility L Procedure IR Embolization Any Method SN Last Modified By: Rivera Baez 10/12/24 11:27:10 Skin Prep- IR Entry 1 Procedure IR Embolization Any Method SN Skin Prep Prep Area Groin Side Left By Escobar Chávez Prep Agents Chloraprep L Hair Removal Method N/A Last Modified By: Rivera Baez 10/12/24 11:27:22 Patient Positioning- IR Entry 1 Procedure IR Embolization Any Body Position OP Supine Method SN Feet Uncrossed? n/a Pressure Points n/a Checked Last Modified By: Rivera Baez 10/12/24 11:24:45 Radiology Procedure Plan - IR Entry 1 Radiology - Nursing Care Plan Outcome Statement The patient Outcome Statement The patient receives demonstrates knowledge Cont. appropriate of the expected medication(s), safely responses to the administered during the operative/invasive perioperative/invasive procedure., The period., The patient is patient's value system, free from signs and lifestyle, ethnicity, symptoms of injury and culture are caused by extraneous considered, respected, objects (equipment, and incorporated in the instrumentation, perioperative plan of sponges, or sharps). care., The patient is free from signs and symptoms of infection., The patient is free from signs and symptoms of injury related to positioning. Radiology - Action Plan Outcomes Met? 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 in 2023, hepatitis C, thrombocytopenia, tobacco use. Patient presented to [facility] ED with febrile illness, dyspneaand chest pain on 09/22. He was transferred to [place] and subsequently intubated for acute hypoxemicrespiratory failure in setting of septic shock, recurrent endocarditis and bacteremia (strep, staphaureus). Patient was treated for septic shock and TAMIE in MICU. Extubated 09/29. Presents to ICU today s/p redo sternotomy for redo tricuspid valve replacement with Dr. Messina. Arrives intubated and sedated. Received plt, DDAVP, k-centra, cell-saver intra-op. Arrives on no vasoactive gtts. POD#1: No acute events overnight. Remains intubated and sedated. HDS. Bleeding has stopped. CXR stable. No vasoactive gtts. Giving 1 PRBC and calcium chloride this morning. Starting diuresis. POD#2: No acute events overnight. Now on room air. Awake, alert, HDS. Pain controlled. POD#3: Late yesterday evening, epicardial wires failed. Patient underwent temp pacing wire placement in cath lab technologist. Scheduled for PPM today. Awake, alert, HDS. Strong cough. Tolerating diet. POD#4: No events overnight. Awake, alert, HDS. Breathing comfortably on room air. POD#5: No acute events overnight. Complains of bilateral foot pain. Awake, alert, breathing comfortably on room air. OOB to chair. tolerating diet. POD#6: No acute events overnight. Requesting IV fentanyl of surgical incision pain. Sitting up in wheelchair, watching TV. Having BMs per patient. POD#7: No acute events overnight. Later in the evening patient had acute episode of hemoptysis (350-400mls bright red blood, no clots). Emergently intubated and sent for CT angio imaging. POD#8: Remained intubated and sedated overnight. Bronch showed blood in right lung without significant refilling. On pressors. Right chest tube placed at bedside this morning. 300mls drained into atrium upon placement. CT concerning for pulmonary hemorrhage with possible infectious underlying process POD#9: Extubated yesterday. Coughing episode in early evening resulted in gross hemoptysis requiring re-intubation. Taken to IR for embolization. No active bleed seen but right bronchial artery embolized which appeared to correlate with cavitary process in right mid-lung. Weaned pressors overnight. POD#10: Ongoing episodes of bright red blood in ETT when coughing. Awake, nodding appropriately. Onand off pressors. Organizing return to IR POD#11: Extubated yesterday afternoon. Episode of hemoptysis. Advised low threshold for intubation/trach placement. IR yesterday with additional embolizations POD#12: Ongoing productive coughing with clots last night. Bright red with fibrous tissue present during coughing episode this morning. Remains 2L O2 NC. Tolerating diet. POD#13: Noted to have powder at bedside and concern for inhaling medications. Ongoing cough with brown, dark blood and mucus. Assessment: -TVIE s/p redo tricuspid valve replacement with Dr. Messina on 10/02/24 -ABLA -Pulmonary hemorrhage -Septic emboli -Consumptive coagulopathy -Thrombocytopenia -Leukocytosis -Stress hyperglycemia -Hx IVDU -Hepatitis C Plan: -IR 10/11 and 10/12 with right bronchial artery embolizations -S/p PPM placement 10/05. Device interrogation requested. EP adjusted pace maker. DCCV on hold -IR removed femoral sheath on 10/13 -Bronchoscopy on 10/11 removed stringy mucoid bloody secretions -Diuresis ongoing -Remains on midodrine TID -Groin staple removal today -Continue rishi bowel reg -Continue abx, ID following. PICC placed 10/04 -No insulin requirement -Continue multi-modal pain regimen, adding Toradol -Discussed with CTS on unit -CCM will follow -Transfer to stepdown Allergies: NKA Objective: Vitals Signs(Last 24 hrs)__ Last Charted Minimum Maximum Temp 37.1(OCT 15 07:29) 36.8(OCT 14 15:15) 37.2(OCT 14 23:58) Heart Rate 71(OCT 15 07:29) 70(OCT 14 12:30) 71(OCT 14 23:58) SBP 126(OCT 15 07:29) 125(OCT 14 15:15) H 144(OCT 15 03:28) DBP 80(OCT 15 07:29) 67(OCT 15 02:00) H 91(OCT 15 03:28) Intake and Output (Last 24 hours) Intake Oral Intake 690.00 Output Urine Voided 5100.00 Stool Count 1.00 Total Summary Total Intake 690.00 Total Output 5100.00 Fluid Balance -4410.00 PHYSICAL EXAM: GENERAL: Thin young male in no respiratory distress SKIN: warm and dry, no rashes noted HEENT: atraumatic normocephalic. oral mucus membranes moist HEART: Paced at 70 LUNGS: Coarse but improving compared to past few days ABDOMEN: soft, MUSCULOSKELETAL: Spontaneously moves all extremities x 4. VASCULAR: Bilateral pedal and radial pulses are palpable +2 and symmetric. trace edema noted NEURO: Alert. Oriented to person, place, and time. Follows commands. Labs: Event Name Event Result Date/Time WBC 9.7 10^3/mcL 10/15/24 03:47:00 Hgb 10.3 G/dL Low 10/15/24 03:47:00 Hct 30.7 % Low 10/15/24 03:47:00 Platelet 314 10^3/mcL 10/15/24 03:47:00 Glucose Level 96 mg/dL 10/15/24 03:47:00 Sodium Level 138 mEq/L 10/15/24 03:47:00 Potassium Level 4.5 mEq/L 10/15/24 03:47:00 Chloride 102 mEq/L 10/15/24 03:47:00 CO2 29 mEq/L 10/15/24 03:47:00 BUN 8 mg/dL 10/15/24 03:47:00 Creatinine Lvl (s) 0.66 mg/dL 10/15/24 03:47:00 Imaging: XR Chest 1 View Result Date: October 15, 2024 Verified By: WILLY FERNANDES MD CLINICAL STATEMENT: IMPRESSION: Stable diffuse bilateral lung infiltrates and small bilateral pleuraleffusions. Pertinent Reviewed: Allergies, Medications, Labs, Imaging, and Physician and Nursing Notes. Critical Care services I provided [id number] 45 minutes. The time involved in the performance of this care was exclusive of separately billable procedures, teaching time, and treating other patients. The time was spent personally by myself for the following activities: examination of the patient, ordering and/or performing treatment, reviewing the laboratory and radiographic studies and if applicable,ventilator management and blood gas interpretation. Patient treatment plan of care discussed with Dr. Messina and CTS team. Dayna Deleon MD Cardiac Critical Care Digitally Signed by DAYNA DELEON MD on 10/15/2024 04:56 PM [id number] Interventional radiology Progress note Interventional Radiology Progress Note IR Procedure Selective catheterization, angiography and embolization of right bronchial artery - 10/10/2024 Selective catheterization, angiogram and embolization Right bronchial arteries - 10/12/2024 Subjective 29-year old male with history of IVDU, tricuspid valve replacement, MRSA bacteremia, hospitalized with septic pulmonary emboli/ endocarditis s/p redo tricuspid valve and redo sternotomy on 10/02/2024.Required multiple intubations for airway protection due to hemoptysis s/p pulmonary artery embolization on 10/10/24 with repeat embolization on 10/12/24. Hgb has remains stable, Letf groin sheath removed on 10/14/24. Patient seen sitting bedside eating breakfast. Denies complaints of the Left groin. Physical Exam Vitals: Hkjeaoyrsst92.1 (07:29) Systolic Blood Sdvwxgtl471 (07:29) Diastolic Blood Indiuwsj88 (07:29) Pulse71 (07:29) YgT704 (07:29) Respiratory RateNo result General: Alert, sitting at his bedside eating breakfast. Left groin: Dressing is minimally tinged with serosanguineous fluid. No signs of swelling, ecchymosis, or bleeding. No tenderness to palpation. Lower extremities both warm and equal in sensation and movement. The remainder of the physical exam is noncontributory. Labs Relevant labs reviewed. Complete Blood Count WBC: 9.7 10^3/mcL (10/15/24 03:47:00) RBC: 3.58 10^6/mcL Low (10/15/24 03:47:00) Hgb: 10.3 G/dL Low (10/15/24 03:47:00) Hct: 30.7 % Low (10/15/24 03:47:00) MCV: 85.7 fL (10/15/24 03:47:00) MCH: 28.7 pg (10/15/24 03:47:00) MCHC: 33.4 G/dL (10/15/24 03:47:00) RDW: 18.5 % High (10/15/24 03:47:00) Platelet: 314 10^3/mcL (10/15/24 03:47:00) MPV: 8.8 fL (10/15/24 03:47:00) Assessment/Treatment Plan Last blood transfusion on 10/12/24 at 0900. Hgb has been stable/ improving since then. Remains extubated. Left femoral sheath removed 10/13/24 and site healing well. IR Follow Up Plan IR to sign off Time Spent: 15 minutes was spent evaluating the patient and discussing the findings and recommendations as above. Mildred Beck PA-C Interventional Radiology IR Dept [id number] Available on [employer]Up Digitally Signed by MILDRED BECK PA-C on 10/15/2024 08:58 AM Digitally Signed by MAHSA CHONG DO on 10/16/2024 10:05 AM [id number] Note* Exam Date Time Procedure Performing Provider Status 10/15/24 6:08 AM XR Chest 1 View WILLY FERNANDES MD; Auth (Verified) [id number] ORIGINAL EXAMINATION: ONE XRAY VIEW OF THE CHEST 10/15/2024 6:08 am COMPARISON: Chest x-ray on 10/14/2024 HISTORY: ORDERING SYSTEM PROVIDED HISTORY: Reason for Exam: pleural effusions FINDINGS: Right arm PICC line tip is in the superior vena cava. Epicardial pacemaker is unchanged. Cardiomegaly is stable with prosthetic heart valve in place. Diffuse heterogeneous bilateral lung infiltrates are stable. There is a small amount of pleural fluid bilaterally that is unchanged. There is no visible pneumothorax. IMPRESSION: Stable diffuse bilateral lung infiltrates and small bilateral pleural effusions. Interpreted by: Willy Fernandes MD Preliminary Report By: Willy Fernandes MD Electronically signed By Willy Fernandes MD Dictated Date: 10/15/2024 6:14:49 AM Prelim Date: 10/15/2024 6:15:34 AM Sign Date: 10/15/2024 6:15:34 AM Ordering Provider: ROSA ISELA CORONA Interpreted by: Willy Fernandes MD Preliminary Report By: Willy Fernandes MD Electronically signed By Willy Fernandes MD Dictated Date: 10/15/2024 6:14:49 AM Prelim Date: 10/15/2024 6:15:34 AM Sign Date: 10/15/2024 6:15:34 AM Ordering Provider: ROSA ISELA CORONA [id number] Nurse Progress note I walked into the patient's room to do an assessment around 1pm and noticed a small amount of whitepowder on his upper chest. I did not know what the powder was at the time. I went into the patient's room later around 445pm, and found half of a plastic straw which had pink residue in it. The oxycodone we are giving the patient is pink. I notified the PA Rosa Isela Corona. No further instructions weregiven at this time regarding any safety measures that need to be taken or interventions that need done. Digitally Signed by CANDELARIO King on 10/14/2024 05:31 PM [facility] [id number] Note* Exam Date Time Procedure Performing Provider Status 10/14/24 5:43 AM XR Chest 1 View WILLY FERNANDES MD; Auth (Verified) [id number] ORIGINAL EXAMINATION: ONE XRAY VIEW OF THE CHEST 10/14/2024 5:43 am COMPARISON: Chest x-ray on 10/13/2024 HISTORY: ORDERING SYSTEM PROVIDED HISTORY: Reason for Exam: abnormal lung sounds FINDINGS: Right arm PICC line tip is in the superior vena cava. Pacemaker is unchanged. Cardiomegaly is stable with prosthetic heart valve in place. Widespread heterogeneous bilateral lung infiltrates are unchanged. Small bilateral pleural effusions are stable. Emphysematous bulla are noted at the lung apices, greater on the right than the left. There is no pneumothorax. IMPRESSION: Stable bilateral lung infiltrates and small bilateral pleural effusions. Interpreted by: Willy Fernandes MD Preliminary Report By: Willy Fernandes MD Electronically signed By Willy Fernandes MD Dictated Date: 10/14/2024 6:10:19 AM Prelim Date: 10/14/2024 6:12:25 AM Sign Date: 10/14/2024 6:12:25 AM Ordering Provider: ROSA ISELA CORONA Interpreted by: Willy Fernandes MD Preliminary Report By: Willy Fernandes MD Electronically signed By Willy Fernandes MD Dictated Date: 10/14/2024 6:10:19 AM Prelim Date: 10/14/2024 6:12:25 AM Sign Date: 10/14/2024 6:12:25 AM Ordering Provider: ROSA ISELA CORONA [id number] Note* Exam Date Time Procedure Performing Provider Status 10/13/24 1:31 PM XR Chest 1 View MAHSA COLE MD; Aut h (Verified) [id number] ORIGINAL EXAMINATION: ONE XRAY VIEW OF THE CHEST 10/13/2024 1:31 pm COMPARISON: Same day chest x-ray and CT thorax 10/09/2024 HISTORY: ORDERING SYSTEM PROVIDED HISTORY: Reason for Exam: CT removal FINDINGS: Interval removal of the right lung base chest tube. Stable position of the right upper extremity PICC. Stable position of the epicardial pacer leads. Lucency at the right lung apex is favored to represent multiple bullae better appreciated on the CT chest from 10/09/2024. No significant interval change in multifocal lung consolidations and bilateral pleural effusions. IMPRESSION: Interval removal of the right lung base chest tube. Otherwise, no significant interval change in multifocal lung consolidations bilateral pleural effusions. I have personally reviewed the images of this examination and agree with the resident's finding and interpretation. Interpreted by: Mahsa Cole MD Preliminary Report By: David Mccracken Electronically signed By Mahsa Cole MD Dictated Date: 10/13/2024 1:53:59 PM Prelim Date: 10/13/2024 1:57:09 PM Sign Date: 10/13/2024 1:58:25 PM Ordering Provider: KIKA MESSINA Interpreted by: Mahsa Cole MD Preliminary Report By: David Mccracken Electronically signed By Mahsa Cole MD Dictated Date: 10/13/2024 1:53:59 PM Prelim Date: 10/13/2024 1:57:09 PM Sign Date: 10/13/2024 1:58:25 PM Ordering Provider: KIKA MESSINA [id number] Procedure note Date of Service INTERVENTIONAL RADIOLOGY POST PROCEDURE NOTE Pre-Procedure Diagnosis: [previously placed left common femoral artery sheath for bronchial artery angio and embolization ] Post Procedure Diagnosis: Same. Audio Specialist: Dr. Mahsa Chong DO Procedure: [removal of previously placed left common femoral artery sheath ] Anesthesia: [1% lidocaine without epinephrine] Findings: [ sheath removed in tact/in total with local sterile field. direct manual pressure applied for 40 min until hemostasis achieved. site observed for 15 min to ensure hemostasis. dressing appliedl] Estimated Blood Loss: Minimal (Less Than 10 mL). [ ] Specimen: None. Complications: None. Full report with procedural details to follow and will become available under the Radiology tab of Results Review. Please contact for any questions or concerns. _ Digitally Signed by MAHSA CHONG DO on 10/13/2024 12:48 PM [facility] [id number] Note* Exam Date Time Procedure Performing Provider Status 10/13/24 5:51 AM XR Chest 1 View WILLY FERNANDES MD; Auth (Verified) [id number] ORIGINAL EXAMINATION: ONE XRAY VIEW OF THE CHEST 10/13/2024 5:52 am COMPARISON: Chest x-ray on 10/12/2024 HISTORY: ORDERING SYSTEM PROVIDED HISTORY: Reason for Exam: decreased breath sounds FINDINGS: The endotracheal tube and the enteric tube have been removed. Right arm PICC line tip is in the superior vena cava. Right chest tube is unchanged with side port outside of the pleural space. Epicardial pacemaker is unchanged. Cardiomegaly stable with prosthetic heart valve present. Widespread bilateral lung infiltrates with mixed interstitial and airspace opacities are not changed. Small bilateral pleural effusions are stable. IMPRESSION: 1. Endotracheal tube and enteric tube have been removed. 2. No change in bilateral lung infiltrates and small bilateral pleural effusions. Interpreted by: Willy Fernandes MD Preliminary Report By: Willy Fernandes MD Electronically signed By Willy Fernandes MD Dictated Date: 10/13/2024 6:14:21 AM Prelim Date: 10/13/2024 6:15:42 AM Sign Date: 10/13/2024 6:15:42 AM Ordering Provider: MAYLIN FIELDS Interpreted by: Willy Fernandes MD Preliminary Report By: Willy Fernandes MD Electronically signed By Willy Fernandes MD Dictated Date: 10/13/2024 6:14:21 AM Prelim Date: 10/13/2024 6:15:42 AM Sign Date: 10/13/2024 6:15:42 AM Ordering Provider: MAYLIN FIELDS [id number] Procedure note Date of Service INTERVENTIONAL RADIOLOGY POST PROCEDURE NOTE Pre-Procedure Diagnosis: [hemoptysis ] Post Procedure Diagnosis: Same. Audio Specialist: Dr. Mahsa Chong DO Procedure: [selective catheterization, angiogram and embolization right bronchial arteries with 500-700 micron embospheres ] Anesthesia: [1% lidocaine without epinephrine] Findings: [hyperemia of terminal pulmonary parenchymal branches of right bronchial arteries. no residual parenchymal blush of catheterized and embolized right pulmonary artery branches. no complication suggested ] Estimated Blood Loss: Minimal (Less Than 10 mL). [ ] Specimen: None. Complications: None. Full report with procedural details to follow and will become available under the Radiology tab of Results Review. Please contact for any questions or concerns. _ Digitally Signed by MAHSA CHONG DO on 10/12/2024 12:53 PM [facility] [id number] Interventional radiology Progress note Multiple attempts to contact pt mother Marily Jimenez ([phone]) for consent at [phone] with no answer. will continue to try to contact mother for consent. Digitally Signed by Escobar Patterson on 10/12/2024 08:28 AM [facility] [id number] Note IR Procedure Record Summary Primary Physician: Finalized Date/Time: 10/11/24 15:55:39 Pt. Name: SAM JIMENEZ Coby /Sex: 1995 Male Med Rec #: [id number] Physician: JOSEP DESHPANDE MD Financial #: [id number] Pt. Type: I Room/Bed: [facility]/A Admit/Disch: 09/22/24 11:34:00 - Institution: Allergies identified in patient's electronic medical record at time of printing on 10/11/24 Entry 1 Substance NKA Reaction Type Allergy Last Modified By: CANDELARIO Whyte 12/25/15 09:20:06 Case Attendance- IR Entry 1 Entry 2 Entry 3 Case Attendee MAHSA CHONG Brittaney RN Ritchey, Logan Role Performed Radiologist Procedure Procedure Nurse Scrub Technologist Details Time In 10/10/24 20:52:00 10/10/24 20:39:00 10/10/24 20:39:00 Time Out 10/10/24 21:38:00 10/10/24 21:38:00 10/10/24 21:38:00 Procedure/Preference IR Embolization Any IR Embolization Any IR Embolization Any Card Method SN Method SN Method SN Last Modified By: Jacqui Brock RN, Brittaney RN Magee, Brittaney RN 10/10/24 21:44:57 10/10/24 21:44:57 10/10/24 21:44:57 Entry 4 Entry 5 Entry 6 Case Attendee Rivera Baez Kayla RN Pirie, Carson E RN Role Performed Circulating Technologist Other Primary Care Nurse Details CVSICU nurse Time In 10/10/24 20:39:00 10/10/24 20:39:00 10/10/24 20:39:00 Time Out 10/10/24 21:38:00 10/10/24 21:38:00 10/10/24 21:38:00 Procedure/Preference IR Embolization Any IR Embolization Any IR Embolization Any Card Method SN Method SN Method SN Last Modified By: Jacqui Brock RN, Brittaney RN Magee, Brittaney RN 10/10/24 21:44:57 10/10/24 21:44:57 10/10/24 21:44:57 Entry 7 Entry 8 Entry 9 Case Attendee Mari Garcia RN, Cora D RRT ZEHRER, TARA K MD Role Performed Other Respiratory Therapist Other Details charge CVSICU nurse intensivest Time In 10/10/24 20:39:00 10/10/24 20:39:00 10/10/24 20:39:00 Time Out 10/10/24 21:38:00 10/10/24 21:38:00 10/10/24 21:38:00 Procedure/Preference IR Embolization Any IR Embolization Any IR Embolization Any Card Method SN Method SN Method SN Last Modified By: Jacqui Brock RN, Brittaney RN Magee, Brittaney RN 10/10/24 21:44:57 10/10/24 21:44:57 10/10/24 21:44:57 Radiology Procedures- IR Entry 1 Procedure/Preference IR Embolization Any Actual Procedure ir embolization any Card Method SN method Primary Procedure Yes Primary Surgeon MAHSA CHONG DO Anesthesia/Sedation Local Type Additional Procedure Times Start 10/10/24 20:52:00 Stop 10/10/24 21:25:00 Specialty Service SN Radiology Procedure EBL 3 mL Last Modified By: Jacqui Brock RN 10/10/24 21:45:55 Radiology Procedure Details - IR Entry 1 Radiology Sedation Case Times Sedation Total Time 0 Radiology - Fluid/Drainage Radiology Contrast Contrast Used? Yes Dose 52 mL Medication CONTRAST ISOVUE 370/100ML 10/CA 068704 Radiology Flouroscopy Fluoroscopy Used? Yes Fluoro Dose (mGy) 330.84 Fluoro Time 12.6 min Radiology Local Local Used? Yes Local Type: lidocaine Local Dose 10 cc Radiology Procedure Site Site/Location left groin Site Condition No complications Dressing Type Tagaderm Technologist Notes 2-0 silk used, gel foam used Last Modified By: Jacqui Brock RN 10/10/24 21:52:44 General Case Data - IR Entry 1 Case Information Room AH IR 17 Case Level IR Level 4 Wound Class None Specialty SN Radiology Procedure ASA Class None Diagnosis Preop Diagnosis pulmonary bleed Postop Same As Preop Yes Postop Diagnosis pulmonary bleed Last Modified By: Jacqui Brock RN 10/10/24 21:18:43 Procedure Case Times- IR Entry 1 Patient In Procedure Patient In OR 10/10/24 20:39:00 Patient Out of OR 10/10/24 21:38:00 Procedure Start/Stop Procedure Start Time 10/10/24 20:52:00 Procedure Stop Time 10/10/24 21:25:00 Last Modified By: Jacqui Brock RN 10/10/24 21:44:56 Immediate Post OP Note - IR Entry 1 Immediate Post Yes Procedure Note displayed for Physician to review Closure Technique Closure Technique Primary Last Modified By: Jacqui Brock RN 10/10/24 21:18:03 Immediate Post OP Note - IR Signed By: MAHSA CHONG DO 10/10/24 21:45 Allergy Information- IR Entry 1 Allergies Reviewed? Yes Allergies Reviewed Medical Record With Last Modified By: Jacqui Brock RN 10/10/24 21:11:04 Radiology Protocols/Time Out- IR Entry 1 Preprocedure Clinician Verifies Correct patient ID When Clinically Confirmation of correct using name & date Indicated side(s) and site(s), or MRN, Accurate Correct diagnostic and procedure, complete radiology tests Informed Consent, H & P available, Required update immediately blood products, prior to procedure, if implants, devices applicable and/or special equipment available OR/Procedure Room/Bedside Time 10/10/24 20:52:00 Clinician Verifies Correct patient identity including EMR & records using name and date or medical record number, Accurate procedure consent form, Correct patient position, Necessary equipment is available When Applicable Confirmation correct Team Members MAHSA CHONG DO, side and site marked, Present for Time Out Jacqui Brock RN, Relevant images and Ayo Kenney, results are properly Nicasio, Rivera Pritchard, labeled and Adelaida Paula RN, appropriately Mahendra Valdes RN, displayed, Alcohol Izabella Saavedra based prep dry SALES STOCK ASSOCIATE, Mari Garcia RN, DAYNA DELEON MD Instrument Sterility Procedure IR Embolization Any Method SN Last Modified By: Jacqui Brock RN 10/10/24 21:17:53 Skin Prep- IR Entry 1 Procedure IR Embolization Any Method SN Skin Prep Prep Area Groin Side Left By Ayo Kenney Prep Agents Chloraprep Hair Removal Method N/A Last Modified By: Jacqui Brock RN 10/10/24 21:20:24 Patient Positioning- IR Entry 1 Procedure IR Embolization Any Body Position OP Supine Method SN Feet Uncrossed? Yes Pressure Points Yes Checked Last Modified By: Jacqui Brock RN 10/10/24 21:18:00 Radiology Procedure Plan - IR Entry 1 Radiology - Nursing Care Plan Outcome Statement The patient Outcome Statement The patient receives demonstrates knowledge Cont. appropriate of the expected medication(s), safely responses to the administered during the operative/invasive perioperative/invasive procedure., The period., The patient is patient's value system, free from signs and lifestyle, ethnicity, symptoms of injury and culture are caused by extraneous considered, respected, objects (equipment, and incorporated in the instrumentation, perioperative plan of sponges, or sharps). care., The patient is free from signs and symptoms of infection. Radiology - Action Plan Outcomes Met? Yes Hospital Recruiter Jacqui Brock RN Completing Procedure Plan Last Modified By: Jacqui Brock RN 10/10/24 21:18:15 Case Comments Finalized By: Tram Howard Document Signatures Signed By: Jacqui Brock RN 10/10/24 21:53 Trma Howard 10/11/24 15:55 Unfinalized History Date/Time Username Reason for Unfinalizing Freetext Reason for Unfinalizing 10/11/24 15:53 04516 Chart Audit [id number] Interventional radiology Progress note Interventional Radiology Progress Note IR Procedure Selective catheterization, angiography and embolization of right bronchial artery - 10/10/2024 Subjective 29-year old male with history of IVDU, tricuspid valve replacement, MRSA bacteremia, and pulmonary hemorrhage is day 1 post bronchial artery embolization. Patient presented to [facility] ED on 09/22/24 with SOB and chest pain. 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 Echo from 09/23 showed large vegetations of the tricuspid valve. CT surgery consulted for valve replacement. Patient required intubation and mechanical ventilation for increased work of breathing. Patient was liberated from this and on 10/02 underwent redo tricuspid valve and redo sternotomy. Patient required platelets preoperatively and DDAVP, Kcentra, and 2 units PRBCs operatively. Chest tube post-operatively with large output. Patient remained intubated at that time as well but was liberatedon 10/04 and had chest tubes discontinued. Patient recovering until POD #7 where patient developed hemoptysis with 300-400mL bright red blood. He was intubated and bronchoscopy/CTA revealed likely pulmonary hemorrhage. Chest tube inserted and patient extubated same morning as bleeding resolved. Patient redeveloped bleeding on 10/10 in the evening and was again intubated. IR consulted for embolization. Patient presented to IR on 10/10 and underwent bronchial artery embolization. Patient seen this morning undergoing bronchoscopy. Patient seen with Dr. Chong. He remains intubated, planned for possible extubation today. Bronchoscopy with no active bleeding appreciated. Physical Exam Vitals: Ifekfnrzatm52.8 (07:34) Systolic Blood Rhqufdgt818 (09:06) Diastolic Blood Upvmqgiq84 (09:06) Pulse70 (09:06) NjZ1530 (:06) Respiratory RateNo result General: Vented, sedated LEFT groin: 4Fr sheath in place. No bruising or hematoma noted. No bleeding/drainage at the site. Soft. LLE: Extremity is normal coloration and temperature. Pulses present 2+, Doppler. The remainder of the physical exam is noncontributory. Imaging XR Chest 1 View Result Date: October 11, 2024 Verified By: DOM COLBERT, WILLY Pritchard CLINICAL STATEMENT: IMPRESSION: 1. Stable bilateral lung infiltrates.2. Small bilateral pleural effusions.3. Right chest tube side port is outside of the pleural space. IR Embolization Any Method Result Date: October 10, 2024 Verified By: MAHSA CHONG DO CLINICAL STATEMENT: IMPRESSION: Selective catheterization, angiography and embolization to occlusion/nearcomplete occlusion of right bronchial artery with single Gel-Foam pledgetproducing complete/near complete occlusion of vessel supplying asymmetric,abnormal focus of hyperemia corresponding to dominant cavitary proce ss rightmidlung seen on chest CT scan 10/09/2024. No complication suggested. CT Angiography Chest w/ Contrast Result Date: October 09, 2024 Verified By: RAJNI COPE DO CLINICAL STATEMENT: IMPRESSION: Multiple new/worse areas of consolidation present bilaterally could representareas of pulmonary hemorrhage, a new infectious or inflammatory process, orworsening patient's chronic abnormality. Relatively stable numerous bilateral cavitary nodules which could representthe sequela of septic emboli, pulmonary infarct, vasculitis, or metastaticdisease. New moderate pericardial effusion ispossibly secondary to recent cardiacprocedure. No CT evidence of cardiac tamponade although consider correlationwith echocardiogram. Severe dilatation of the inferior vena cava with reflux contrast into theinferior vena cava and hepatic veins is not significantly changed and isconcerning for right h eart strain. I have reviewed the resident's preliminary report and agree with findings andimpression. CT Thorax w/o Contrast Result Date: September 28, 2024 Verified By: AGATA GABRIEL MD CLINICAL STATEMENT: IMPRESSION: Increased number and size of numerous bilateral cavitary nodules withworsening consolidative opacities in the bibasilar lungs since the prior CTexam on 09/22/2024. Small right pleural effusion. I have personally reviewed the images of this examination and agree with theresident's findings and interpretation. Labs Relevant labs reviewed. Complete Blood Count WBC: 9.1 10^3/mcL (10/11/24 04:20:00) RBC: 3.29 10^6/mcL Low (10/11/24 04:20:00) Hgb: 9.3 G/dL Low (10/11/24 04:20:00) Hgb: 9.8 G/dL Low (10/10/24 19:16:00) Hgb: 7.9 G/dL Low (10/10/24 12:59:00) Hct: 27.9 % Low (10/11/24 04:20:00) Hct: 30.7 % Low (10/10/24 19:16:00) Hct: 24.3 % Low (10/10/24 12:59:00) MCV: 84.7 fL (10/11/24 04:20:00) MCH: 28.3 pg (10/11/24 04:20:00) MCHC: 33.4 G/dL (10/11/24 04:20:00) RDW: 18.9 % High (10/11/24 04:20:00) Platelet: 163 10^3/mcL (10/11/24 04:20:00) MPV: 8.7 fL (10/11/24 04:20:00) Assessment/Treatment Plan 29-year old male with history of IVDU, tricuspid valve replacement, MRSA bacteremia, and pulmonary hemorrhage is day 1 post bronchial artery embolization. Bronchoscopy completed this morning, no active bleeding appreciated, some thin mucous clot suctioned. Hb stable at this time, patient did receive 1 unit PRBC's post embolization. Patient is planned for possible extubation today. LEFT groin sheath remains in place. IR Follow Up Plan - IR to sign off - Please contact IR with any concerns for rebleeding - Contact IR for eventual sheath removal Francisco Albarado PA-C Interventional Radiology Pager: [phone] IR dept: [phone] Available on [employer] Digitally Signed by FRANCISCO ALBARADO PA-C on 10/11/2024 09:36 AM Digitally Signed by MAHSA CHONG DO on 10/11/2024 10:33 AM [id number] Critical care medicine procedure note [facility] Cardiac Critical Care 10/11/2024 08:34:49 Procedure: Fiberoptic Bronchoscopy Indications: Hemoptysis Consent: Other Personal Protective Equipment: N95/PAPR, face shield/protective goggles, gown, and gloves. Timeout performed. Correct patient. Correct procedure. Correct site. Availability of necessary equipment. See nurse documentation for participants. Access to airway: ETT (size 8) Topical anesthesia (1% lidocaine): no Bronchoscopy: Disposable Bronchoscopy procedures: Bronchoalveolar (wedged) Lavage (BAL): LLL, WAI, Lingula, RLL, RML, RUL 60 ml saline instilled and 45 ml recovered. Findings: Stringy mixed mucus/blood mostly from right side. No active bleeding appreciated. Patientcoughing throughout Impression: No active bleed Complications: None immediately observed. Patient tolerated procedure well. Patient did cough throughout Attestation:I performed entire procedure. Dayna Deleon MD [facility] Cardiac Critical Care [id number] Diagnostic bronchoscopy with bronchial lavage (BAL) Digitally Signed by DAYNA DELEON MD on 10/11/2024 08:40 AM [facility] [id number] Procedure note Date of Service INTERVENTIONAL RADIOLOGY POST PROCEDURE NOTE Pre-Procedure Diagnosis: [hemoptysis from right lung per bronchoscopy ] Post Procedure Diagnosis: Same. Audio Specialist: Dr. Mahsa Chong DO Procedure: [selective catheterization, angio and embolization of bronchial artery preferentially perfusing right lung with one gel foam pledget to near occlusion ] Anesthesia: [1% lidocaine without epinephrine] Findings: [bronchial artery preferentially perfusing the right lung embolilzed to near occlusion with one gel foam pledget ] Estimated Blood Loss: Minimal (Less Than 10 mL). [ ] Specimen: None. Complications: None. Full report with procedural details to follow and will become available under the Radiology tab of Results Review. Please contact for any questions or concerns. _ Digitally Signed by MAHSA CHONG DO on 10/10/2024 09:33 PM [facility] [id number] Anesthesiology Consult note Patient is a complex 29-year-old gentleman who underwent surgery multiple times for sepsis. CODE WILL was called due to excessive hemoptysis, and need for airway securing. Patient was awake, and alert, but in distress due to significant hemoptysis. I did explain to him the plan for induction and int ubation to which she verbally agreed. Patient was extubated this morning. Following administration of 16 mg of etomidate followed by 100 mg of succinylcholine, using a video laryngoscope, a grade 1 view of his laryngeal aperture was appreciated and an 8.0 endotracheal tube was placed atraumatically through his vocal cords. It was placed to a depth of 22 cm at his lips. Breath sounds were equal bilaterally, color change was appreciated on portable CO2 detector, tube was secured and care was leftin the hands of the ICU team. Chest x-ray to be obtained and evaluated by the ICU team. Patient tolerated procedure well, he was hypoxic at the start of the procedure, and improved following intubation. Digitally Signed by SCAR HOPKINS MD on 10/10/2024 07:35 PM [facility] [id number] Note* Exam Date Time Procedure Performing Provider Status 10/09/24 10:44 PM Echocardiogram, Adult - CV PODUGU, RA VISHNU COLBERT; Auth (Verified) [facility] [id number] Cardiology Progress note Date of Service 10/09/2024 13:29:10 Chief Complaint afib/aflutter Subjective This is a 29-year-old male status post redo sternotomy and tricuspid valve with implantation of permanent epicardial wires on October 02, 2024. Post procedure the patient's rhythm was CHB/asystole. PMH: 1. Endocarditis 2. Status post redo sternotomy redo tricuspid valve repair utilizing a 27 CE Magna Ease with permanent epicardial wires completed by Dr. Messina October 02, 2024 3. Asystole/complete heart block 4. Staph aureus bacteremia infectious disease following 5. Septic pulmonary embolism Dr. Olguin connected/implanted the pacemaker to the wires on 10/05/2024. Pacemaker functioning adequately. 10/09/24 patient is currently on diltiazem drip at 30 mg, Lovenox 40 mg Lasix 20 mg IV, and Lopressor 75 mg. His heart rate is still elevated above 100 consistently. The patient is more cooperative and comfortable today. He is complaining of swollen feet. Objective Vitals and Measurements T: 37.4 C (Oral) TMIN: 36.6 C (Oral) TMAX: 37.4 C (Oral) HR: 125 (Monitored) RR: 20 BP: 127/85 SpO2: 95% WT: 60.2 kg Intake and Output 7AM Yesterday to 7AM Today Intake and Output (Last 24 hours) Intake Oral Intake 1740.00 Output Urine Voided 4125.00 Stool Count 4.00 Total Summary Total Intake 1740.00 Total Output 4125.00 Fluid Balance -2385.00 Physical Exam General Appearance: No acute distress, appears nourished and groomed Head: normocephalic, atraumatic EENT: mucous membranes moist, PERRLA Neck: trachea midline, no JVD noted, no carotid bruit Cardiac: sinus tachycardia -CERTIFIED FAMILY MEDIATOR, S1 WNL, no significant gallop/rub noted, _ Lungs: CTAB, respirations easy and unlabored on room air Abdomen: flat, soft, nontender, bowel sounds present x4 Extremities: DRIVER x4, PPPx4, +3 BLE edema in the feet Neurological: alert and oriented x4, CN intact Skin: warm, dry, no rashes, IV track mejia noted on both arms Psychiatric: calm, cooperative, normal affect Weight Current Weight Dosing Weight: 55.2 kg (09/22/24) Current Weight: 60.2 kg (10/09/24) Current Weight: 62 kg (10/08/24) Medications Medications (39) Active Scheduled: (18) apixaban 5 mg tablet 5 mg 1 tab(s), Oral, BID aspirin 81 mg EC 81 mg 1 tab(s), Oral, qDayM balsam Mahendra-castor oil topical 87 mg-788 mg/g UD packet oint 5g 1 kendrick, Topical, BID ceFAZolin syringe 2 gram(s) 20 mL, IV Push (INT), q8h docusate-senna (Senokot S) 50 mg-8.6 mg Tablet 1 tab(s), Oral, BID furosemide 20 mg/2 mL vial 20 mg 2 mL, IV Push, q8h gentamicin 160 mg 4 mL, IV Piggyback, q24h menthol-zinc oxide topical ointment 4oz 1 kendrick, Topical, amhs metoprolol tartrate 25 mg tablet 75 mg 3 tab(s), Oral, BIDM Misc communication order 1 EA, Miscellaneous, Daily Misc communication order 1 EA, Miscellaneous, Daily multivitamin (Chromagen Forte) with iron Vitamin B Complex with C, Folic Acid and Iron tablet 1 tab(s), Oral, qDay No metformin for 48 hrs post contrast 1 EA, Miscellaneous, Unscheduled oxyCODONE 10 mg Tab (Immediate Release) 10 mg 1 tab(s), Oral, q4h pantoprazole 40 mg EC tablet 40 mg 1 tab(s), Oral, qDayAC potassium chloride 20 mEq ER tablet 20 mEq 1 tab(s), Oral, TID rifampin 300 mg capsule 300 mg 1 cap(s), Oral, q8h vancomycin in NS PMX 1,000 mg 250 mL, IV Piggyback, PREOP pharm Continuous: (1) diltiazem 125 mg [10 mg/hr] + Dextrose 5% in Water 100 mL 100 mL, Intravenous, 10 mL/hr PRN: (20) acetaminophen 160 mg/5 mL Suspension 650 mg 20.31 mL, Oral, q6hr acetaminophen 325 mg Tablet 650 mg 2 tab(s), Oral, q4h acetaminophen 325 mg Tablet 650 mg 2 tab(s), Oral, q4h Al hydrox/Mg hydrox/simethicone 200-200-20 mg/5 mL Susp UD 30 mL, Oral, q2h albuterol 0.5% Milagro UD (2.5 mg/0.5 mL) 2.5 mg 0.5 mL, Inhalation, QIDRT benzocaine-menthol (Cepacol Sore Throat) 15 mg-3.6mg lozenge 1 lozenge(s), Oral, q2h bisacodyl 10 mg Suppository 10 mg 1 supp, Rectal, qDay dextrose 50% Solution Disp syringe 50 mL 25 gram(s) 50 mL, IV Push, AsDirected docusate sodium 100 mg Capsule 100 mg 1 cap(s), Oral, BID hydromorphone 2 mg tablet 1 mg 0.5 tab(s), Oral, q4h magnesium gluconate 500 mg tablet 500 mg 1 tab(s), Oral, BID magnesium hydroxide 8% Suspension 30 mL UD 30 mL, Oral, qDay magnesium sulfate PMX 2 gram(s) 50 mL, IV Piggyback, AsDirected menthol-zinc oxide topical ointment 4oz 1 kendrick, Topical, BID ondansetron 2 mg/ 1 mL 2 mL INJ 4 mg 2 mL, IV Push, q4h phenol topical 1.4% Spr 1 spray(s), Topical, q1h polyethylene glycol 3350 - UD packet 17 gram(s) 15 mL, Oral, qDay potassium chloride (PMX) 20 mEq/100 mL 20 mEq 100 mL, IV Piggyback, AsDirected potassium chloride (PMX) 20 mEq/100 mL 40 mEq 200 mL, IV Piggyback, AsDirected potassium chloride 10 mEq ER capsule 20 mEq 2 cap(s), Oral, AsDirected Lab Results 10/09 03:50 WBC: 7.4 Hgb: 8.2 L Hct: 24.6 L Platelet: 195 Neutrophil %: 74.8 Protime: 14.5 H PT International Ratio: 1.3 Glucose Level: 124 H Sodium Level: 137 Potassium Level: 4.5 BUN: 12.0 Creatinine Lvl (s): 0.71 10/08 06:25 WBC: 10.1 Hgb: 9.4 L Hct: 28.2 L Platelet: 270 Neutrophil %: 74.0 Protime: 16.2 H PT International Ratio: 1.4 Glucose Level: 110 Sodium Level: 136 Potassium Level: 4.5 BUN: 7.0 L Creatinine Lvl (s): 0.64 EKG No qualifying data available. Assessment/Plan 1. Sinus tachycardia He is currently on diltiazem drip at 30 mg, Lovenox 40 mg Lasix 20 mg IV, and Lopressor 75 mg. His heart rate is still elevated above 100 consistently. Upon device interrogation patient was found to have a 2-1 atrial tachycardia. Pace termination was attempted multiple times without success. The patient went into atrial fibrillation/atrial flutter. A decision was made to put the patient into DDIR at a rate of 70. At this time we will stop Lovenox and begin Eliquis 5 mg BID tonight. Plan for direct cardioversiontomorrow. Orders placed. 2. 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 see above 4. IV drug abuse Noted. It has been explained in detail that the patient needs to restrain from IV drug use and remain sober. Encouraged patient to seek out sobriety housing due to unstable family/housing. Orders: apixaban(Eliquis), 5 mg= 1 tab(s), Oral, BID Cardioversion (CV)(DCC (CV)), 10/10/24 13:26:00 EDT, 10/10/24 13:26:00 EDT, CHINO OLGUIN MD, afib/aflutter, Consent Required, DCC tomorrow, CVSD, Atrial fibrillation This is a split/shared visit with Dr. Olguin. Please see his addendum for further information or plan of care. I have reviewed and agree with any documentation taken by the nursing staff. I have reviewed all available EKGs, echocardiograms, stress test and cardiac catheterizations. Relevant laboratory data have also been reviewed. This dictation was created using voice recognition software. Phonetic and/or grammatical errors mayexist. Digitally Signed by DOLLY BOOTH PA-C on 10/09/2024 01:31 PM [facility] [id number] Cardiology Progress note Date of Service 10/09/2024 13:29:10 Chief Complaint afib/aflutter Subjective This is a 29-year-old male status post redo sternotomy and tricuspid valve with implantation of permanent epicardial wires on October 02, 2024. Post procedure the patient's rhythm was CHB/asystole. PMH: 1. Endocarditis 2. Status post redo sternotomy redo tricuspid valve repair utilizing a 27 CE Magna Ease with permanent epicardial wires completed by Dr. Messina October 02, 2024 3. Asystole/complete heart block 4. Staph aureus bacteremia infectious disease following 5. Septic pulmonary embolism Dr. Olguin connected/implanted the pacemaker to the wires on 10/05/2024. Pacemaker functioning adequately. 10/09/24 patient is currently on diltiazem drip at 30 mg, Lovenox 40 mg Lasix 20 mg IV, and Lopressor 75 mg. His heart rate is still elevated above 100 consistently. The patient is more cooperative and comfortable today. He is complaining of swollen feet. Objective Vitals and Measurements T: 37.4 C (Oral) TMIN: 36.6 C (Oral) TMAX: 37.4 C (Oral) HR: 125 (Monitored) RR: 20 BP: 127/85 SpO2: 95% WT: 60.2 kg Intake and Output 7AM Yesterday to 7AM Today Intake and Output (Last 24 hours) Intake Oral Intake 1740.00 Output Urine Voided 4125.00 Stool Count 4.00 Total Summary Total Intake 1740.00 Total Output 4125.00 Fluid Balance -2385.00 Physical Exam General Appearance: No acute distress, appears nourished and groomed Head: normocephalic, atraumatic EENT: mucous membranes moist, PERRLA Neck: trachea midline, no JVD noted, no carotid bruit Cardiac: sinus tachycardia -CERTIFIED FAMILY MEDIATOR, S1 WNL, no significant gallop/rub noted, _ Lungs: CTAB, respirations easy and unlabored on room air Abdomen: flat, soft, nontender, bowel sounds present x4 Extremities: DRIVER x4, PPPx4, +3 BLE edema in the feet Neurological: alert and oriented x4, CN intact Skin: warm, dry, no rashes, IV track mejia noted on both arms Psychiatric: calm, cooperative, normal affect Weight Current Weight Dosing Weight: 55.2 kg (09/22/24) Current Weight: 60.2 kg (10/09/24) Current Weight: 62 kg (10/08/24) Medications Medications (39) Active Scheduled: (18) apixaban 5 mg tablet 5 mg 1 tab(s), Oral, BID aspirin 81 mg EC 81 mg 1 tab(s), Oral, qDayM balsam [place]-castor oil topical 87 mg-788 mg/g UD packet oint 5g 1 kendrick, Topical, BID ceFAZolin syringe 2 gram(s) 20 mL, IV Push (INT), q8h docusate-senna (Senokot S) 50 mg-8.6 mg Tablet 1 tab(s), Oral, BID furosemide 20 mg/2 mL vial 20 mg 2 mL, IV Push, q8h gentamicin 160 mg 4 mL, IV Piggyback, q24h menthol-zinc oxide topical ointment 4oz 1 kendrick, Topical, amhs metoprolol tartrate 25 mg tablet 75 mg 3 tab(s), Oral, BIDM Misc communication order 1 EA, Miscellaneous, Daily Misc communication order 1 EA, Miscellaneous, Daily multivitamin (Chromagen Forte) with iron Vitamin B Complex with C, Folic Acid and Iron tablet 1 tab(s), Oral, qDay No metformin for 48 hrs post contrast 1 EA, Miscellaneous, Unscheduled oxyCODONE 10 mg Tab (Immediate Release) 10 mg 1 tab(s), Oral, q4h pantoprazole 40 mg EC tablet 40 mg 1 tab(s), Oral, qDayAC potassium chloride 20 mEq ER tablet 20 mEq 1 tab(s), Oral, TID rifampin 300 mg capsule 300 mg 1 cap(s), Oral, q8h vancomycin in NS PMX 1,000 mg 250 mL, IV Piggyback, PREOP pharm Continuous: (1) diltiazem 125 mg [10 mg/hr] + Dextrose 5% in Water 100 mL 100 mL, Intravenous, 10 mL/hr PRN: (20) acetaminophen 160 mg/5 mL Suspension 650 mg 20.31 mL, Oral, q6hr acetaminophen 325 mg Tablet 650 mg 2 tab(s), Oral, q4h acetaminophen 325 mg Tablet 650 mg 2 tab(s), Oral, q4h Al hydrox/Mg hydrox/simethicone 200-200-20 mg/5 mL Susp UD 30 mL, Oral, q2h albuterol 0.5% Milagro UD (2.5 mg/0.5 mL) 2.5 mg 0.5 mL, Inhalation, QIDRT benzocaine-menthol (Cepacol Sore Throat) 15 mg-3.6mg lozenge 1 lozenge(s), Oral, q2h bisacodyl 10 mg Suppository 10 mg 1 supp, Rectal, qDay dextrose 50% Solution Disp syringe 50 mL 25 gram(s) 50 mL, IV Push, AsDirected docusate sodium 100 mg Capsule 100 mg 1 cap(s), Oral, BID hydromorphone 2 mg tablet 1 mg 0.5 tab(s), Oral, q4h magnesium gluconate 500 mg tablet 500 mg 1 tab(s), Oral, BID magnesium hydroxide 8% Suspension 30 mL UD 30 mL, Oral, qDay magnesium sulfate PMX 2 gram(s) 50 mL, IV Piggyback, AsDirected menthol-zinc oxide topical ointment 4oz 1 kendrick, Topical, BID ondansetron 2 mg/ 1 mL 2 mL INJ 4 mg 2 mL, IV Push, q4h phenol topical 1.4% Spr 1 spray(s), Topical, q1h polyethylene glycol 3350 - UD packet 17 gram(s) 15 mL, Oral, qDay potassium chloride (PMX) 20 mEq/100 mL 20 mEq 100 mL, IV Piggyback, AsDirected potassium chloride (PMX) 20 mEq/100 mL 40 mEq 200 mL, IV Piggyback, AsDirected potassium chloride 10 mEq ER capsule 20 mEq 2 cap(s), Oral, AsDirected Lab Results 10/09 03:50 WBC: 7.4 Hgb: 8.2 L Hct: 24.6 L Platelet: 195 Neutrophil %: 74.8 Protime: 14.5 H PT International Ratio: 1.3 Glucose Level: 124 H Sodium Level: 137 Potassium Level: 4.5 BUN: 12.0 Creatinine Lvl (s): 0.71 10/08 06:25 WBC: 10.1 Hgb: 9.4 L Hct: 28.2 L Platelet: 270 Neutrophil %: 74.0 Protime: 16.2 H PT International Ratio: 1.4 Glucose Level: 110 Sodium Level: 136 Potassium Level: 4.5 BUN: 7.0 L Creatinine Lvl (s): 0.64 EKG No qualifying data available. Assessment/Plan 1. Sinus tachycardia He is currently on diltiazem drip at 30 mg, Lovenox 40 mg Lasix 20 mg IV, and Lopressor 75 mg. His heart rate is still elevated above 100 consistently. Upon device interrogation patient was found to have a 2-1 atrial tachycardia. Pace termination was attempted multiple times without success. The patient went into atrial fibrillation/atrial flutter. A decision was made to put the patient into DDIR at a rate of 70. At this time we will stop Lovenox and begin Eliquis 5 mg BID tonight. Plan for direct cardioversiontomorrow. Orders placed. 2. 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 see above 4. IV drug abuse Noted. It has been explained in detail that the patient needs to restrain from IV drug use and remain sober. Encouraged patient to seek out sobriety housing due to unstable family/housing. Orders: apixaban(Eliquis), 5 mg= 1 tab(s), Oral, BID Cardioversion (CV)(DCC (CV)), 10/10/24 13:26:00 EDT, 10/10/24 13:26:00 EDT, CHINO OLGUIN MD, afib/aflutter, Consent Required, DCC tomorrow, CVSD, Atrial fibrillation This is a split/shared visit with Dr. Olguin. Please see his addendum for further information or plan of care. I have reviewed and agree with any documentation taken by the nursing staff. I have reviewed all available EKGs, echocardiograms, stress test and cardiac catheterizations. Relevant laboratory data have also been reviewed. This dictation was created using voice recognition software. Phonetic and/or grammatical errors mayexist. Digitally Signed by DOLLY BOOTH PA-C on 10/09/2024 01:31 PM [id number] Critical care medicine procedure note [facility] Cardiac Critical Care Procedure Note 10/09/2024 18:54:43 Procedure: Arterial Cannula Placement Indication: Acute Respiratory Failure Consent: Emergent Procedure (Consent Implied) Timeout performed. Correct patient. Correct procedure. Correct site. Availability of necessary equipment. See nurse documentation for participants. Technique: Audio Specialist Preparation: Mask, Cap, Handwashing, Sterile gown and sterile gloves. Site Preparation: Chlorhexidine, Local sterile drape. Site: New Right Radial Anesthesia: 1% lidocaine Ultrasound: Ultrasound guidance throughout procedure (vessel identification, needle puncture, guidewire, confirmed catheter in vessel) Seldinger technique Catheter: 20 Gauge Arrow arterial cannula Biopatch Clear dressing per institution protocol Complications: None immediately observed. Patient tolerated the procedure well. Attestation: I performed entire procedure. Dayna Deleon MD [facility] Cardiac Critical Care CPT: 56410 CPT: 10454 (Ultrasound-guided vascular access) Digitally Signed by DAYNA DELEON MD on 10/09/2024 06:55 PM [id number] Critical care medicine procedure note [facility] Cardiac Critical Care 10/09/2024 18:52:08 Procedure: Fiberoptic Bronchoscopy Indications: Hemoptysis Consent: Emergent Procedure (Consent implied) Personal Protective Equipment: N95/PAPR, face shield/protective goggles, gown, and gloves. Timeout performed. Correct patient. Correct procedure. Correct site. Availability of necessary equipment. See nurse documentation for participants. Access to airway: ETT (size 8) Topical anesthesia (1% lidocaine): no Bronchoscopy: Disposable Bronchoscopy procedures: Findings: Bright red blood throughout with significantly less on left side versus right. No active bleed appreciated. Impression: No acute bleed appreciated. Significant blood noted. Complications: None immediately observed. Patient tolerated procedure well. Attestation:I performed entire procedure. Dayna Deleon MD [facility] Cardiac Critical Care [id number] Diagnostic bronchoscopy with or without washing Digitally Signed by DAYNA DELEON MD on 10/09/2024 06:54 PM [id number] Cardiology Progress note Date of Service 10/09/2024 13:29:10 Chief Complaint afib/aflutter Subjective This is a 29-year-old male status post redo sternotomy and tricuspid valve with implantation of permanent epicardial wires on October 02, 2024. Post procedure the patient's rhythm was CHB/asystole. PMH: 1. Endocarditis 2. Status post redo sternotomy redo tricuspid valve repair utilizing a 27 CE Magna Ease with permanent epicardial wires completed by Dr. Messina October 02, 2024 3. Asystole/complete heart block 4. Staph aureus bacteremia infectious disease following 5. Septic pulmonary embolism Dr. Olguin connected/implanted the pacemaker to the wires on 10/05/2024. Pacemaker functioning adequately. 10/09/24 patient is currently on diltiazem drip at 30 mg, Lovenox 40 mg Lasix 20 mg IV, and Lopressor 75 mg. His heart rate is still elevated above 100 consistently. The patient is more cooperative and comfortable today. He is complaining of swollen feet. Objective Vitals and Measurements T: 37.4 C (Oral) TMIN: 36.6 C (Oral) TMAX: 37.4 C (Oral) HR: 125 (Monitored) RR: 20 BP: 127/85 SpO2: 95% WT: 60.2 kg Intake and Output 7AM Yesterday to 7AM Today Intake and Output (Last 24 hours) Intake Oral Intake 1740.00 Output Urine Voided 4125.00 Stool Count 4.00 Total Summary Total Intake 1740.00 Total Output 4125.00 Fluid Balance -2385.00 Physical Exam General Appearance: No acute distress, appears nourished and groomed Head: normocephalic, atraumatic EENT: mucous membranes moist, PERRLA Neck: trachea midline, no JVD noted, no carotid bruit Cardiac: sinus tachycardia -CERTIFIED FAMILY MEDIATOR, S1 WNL, no significant gallop/rub noted, _ Lungs: CTAB, respirations easy and unlabored on room air Abdomen: flat, soft, nontender, bowel sounds present x4 Extremities: DRIVER x4, PPPx4, +3 BLE edema in the feet Neurological: alert and oriented x4, CN intact Skin: warm, dry, no rashes, IV track mejia noted on both arms Psychiatric: calm, cooperative, normal affect Weight Current Weight Dosing Weight: 55.2 kg (09/22/24) Current Weight: 60.2 kg (10/09/24) Current Weight: 62 kg (10/08/24) Medications Medications (39) Active Scheduled: (18) apixaban 5 mg tablet 5 mg 1 tab(s), Oral, BID aspirin 81 mg EC 81 mg 1 tab(s), Oral, qDayM balsam Mahen[place]-castor oil topical 87 mg-788 mg/g UD packet oint 5g 1 kendrick, Topical, BID ceFAZolin syringe 2 gram(s) 20 mL, IV Push (INT), q8h docusate-senna (Senokot S) 50 mg-8.6 mg Tablet 1 tab(s), Oral, BID furosemide 20 mg/2 mL vial 20 mg 2 mL, IV Push, q8h gentamicin 160 mg 4 mL, IV Piggyback, q24h menthol-zinc oxide topical ointment 4oz 1 kendrick, Topical, amhs metoprolol tartrate 25 mg tablet 75 mg 3 tab(s), Oral, BIDM Misc communication order 1 EA, Miscellaneous, Daily Misc communication order 1 EA, Miscellaneous, Daily multivitamin (Chromagen Forte) with iron Vitamin B Complex with C, Folic Acid and Iron tablet 1 tab(s), Oral, qDay No metformin for 48 hrs post contrast 1 EA, Miscellaneous, Unscheduled oxyCODONE 10 mg Tab (Immediate Release) 10 mg 1 tab(s), Oral, q4h pantoprazole 40 mg EC tablet 40 mg 1 tab(s), Oral, qDayAC potassium chloride 20 mEq ER tablet 20 mEq 1 tab(s), Oral, TID rifampin 300 mg capsule 300 mg 1 cap(s), Oral, q8h vancomycin in NS PMX 1,000 mg 250 mL, IV Piggyback, PREOP pharm Continuous: (1) diltiazem 125 mg [10 mg/hr] + Dextrose 5% in Water 100 mL 100 mL, Intravenous, 10 mL/hr PRN: (20) acetaminophen 160 mg/5 mL Suspension 650 mg 20.31 mL, Oral, q6hr acetaminophen 325 mg Tablet 650 mg 2 tab(s), Oral, q4h acetaminophen 325 mg Tablet 650 mg 2 tab(s), Oral, q4h Al hydrox/Mg hydrox/simethicone 200-200-20 mg/5 mL Susp UD 30 mL, Oral, q2h albuterol 0.5% Milagro UD (2.5 mg/0.5 mL) 2.5 mg 0.5 mL, Inhalation, QIDRT benzocaine-menthol (Cepacol Sore Throat) 15 mg-3.6mg lozenge 1 lozenge(s), Oral, q2h bisacodyl 10 mg Suppository 10 mg 1 supp, Rectal, qDay dextrose 50% Solution Disp syringe 50 mL 25 gram(s) 50 mL, IV Push, AsDirected docusate sodium 100 mg Capsule 100 mg 1 cap(s), Oral, BID hydromorphone 2 mg tablet 1 mg 0.5 tab(s), Oral, q4h magnesium gluconate 500 mg tablet 500 mg 1 tab(s), Oral, BID magnesium hydroxide 8% Suspension 30 mL UD 30 mL, Oral, qDay magnesium sulfate PMX 2 gram(s) 50 mL, IV Piggyback, AsDirected menthol-zinc oxide topical ointment 4oz 1 kendrick, Topical, BID ondansetron 2 mg/ 1 mL 2 mL INJ 4 mg 2 mL, IV Push, q4h phenol topical 1.4% Spr 1 spray(s), Topical, q1h polyethylene glycol 3350 - UD packet 17 gram(s) 15 mL, Oral, qDay potassium chloride (PMX) 20 mEq/100 mL 20 mEq 100 mL, IV Piggyback, AsDirected potassium chloride (PMX) 20 mEq/100 mL 40 mEq 200 mL, IV Piggyback, AsDirected potassium chloride 10 mEq ER capsule 20 mEq 2 cap(s), Oral, AsDirected Lab Results 10/09 03:50 WBC: 7.4 Hgb: 8.2 L Hct: 24.6 L Platelet: 195 Neutrophil %: 74.8 Protime: 14.5 H PT International Ratio: 1.3 Glucose Level: 124 H Sodium Level: 137 Potassium Level: 4.5 BUN: 12.0 Creatinine Lvl (s): 0.71 10/08 06:25 WBC: 10.1 Hgb: 9.4 L Hct: 28.2 L Platelet: 270 Neutrophil %: 74.0 Protime: 16.2 H PT International Ratio: 1.4 Glucose Level: 110 Sodium Level: 136 Potassium Level: 4.5 BUN: 7.0 L Creatinine Lvl (s): 0.64 EKG No qualifying data available. Assessment/Plan 1. Sinus tachycardia He is currently on diltiazem drip at 30 mg, Lovenox 40 mg Lasix 20 mg IV, and Lopressor 75 mg. His heart rate is still elevated above 100 consistently. Upon device interrogation patient was found to have a 2-1 atrial tachycardia. Pace termination was attempted multiple times without success. The patient went into atrial fibrillation/atrial flutter. A decision was made to put the patient into DDIR at a rate of 70. At this time we will stop Lovenox and begin Eliquis 5 mg BID tonight. Plan for direct cardioversiontomorrow. Orders placed. 2. 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 see above 4. IV drug abuse Noted. It has been explained in detail that the patient needs to restrain from IV drug use and remain sober. Encouraged patient to seek out sobriety housing due to unstable family/housing. Orders: apixaban(Eliquis), 5 mg= 1 tab(s), Oral, BID Cardioversion (CV)(DCC (CV)), 10/10/24 13:26:00 EDT, 10/10/24 13:26:00 EDT, CHINO OLGUIN MD, afib/aflutter, Consent Required, DCC tomorrow, CVSD, Atrial fibrillation This is a split/shared visit with Dr. Olguin. Please see his addendum for further information or plan of care. I have reviewed and agree with any documentation taken by the nursing staff. I have reviewed all available EKGs, echocardiograms, stress test and cardiac catheterizations. Relevant laboratory data have also been reviewed. This dictation was created using voice recognition software. Phonetic and/or grammatical errors mayexist. Digitally Signed by DOLLY BOOTH PA-C on 10/09/2024 01:31 PM [id number] Cardiology Progress note Date of Service 10/08/2024 12:11:49 Chief Complaint CHB post TV/MV repair. status post PPM Subjective This is a 29-year-old male status post redo sternotomy and tricuspid valve with implantation of permanent epicardial wires on October 02, 2024. Post procedure the patient's rhythm was CHB/asystole. PMH: 1. Endocarditis 2. Status post redo sternotomy redo tricuspid valve repair utilizing a 27 CE Magna Ease with permanent epicardial wires completed by Dr. Messina October 02, 2024 3. Asystole/complete heart block 4. Staph aureus bacteremia infectious disease following 5. Septic pulmonary embolism Dr. Olguin connected/implanted the pacemaker to the wires on 10/05/2024. The patient is in immense pain this morning. Difficult to evaluate. Objective Vitals and Measurements T: 37.2 C (Oral) TMIN: 36.9 C (Oral) TMAX: 37.6 C (Oral) HR: 122 (Monitored) RR: 18 BP: 126/78 SpO2: 94% WT: 62.0 kg Intake and Output 7AM Yesterday to 7AM Today Intake and Output (Last 24 hours) Intake Oral Intake 1080.00 Output Urine Voided 5450.00 Stool Count 1.00 Total Summary Total Intake 1080.00 Total Output 5450.00 Fluid Balance -4370.00 Physical Exam General Appearance: patient writhing in pain, appears nourished Head: normocephalic, atraumatic EENT: mucous membranes moist, PERRLA Neck: trachea midline, no JVD noted, no carotid bruit Cardiac: sinus tachycardia, S1 WNL, no significant gallop/rub noted, _ Lungs: CTAB, respirations easy and unlabored on room air Abdomen: flat, soft, nontender, bowel sounds present x4 Extremities: DRIVER x4, PPPx4, no edema noted Neurological: alert and oriented x4, CN intact Skin: warm, dry, no rashes or wounds noted Psychiatric: uncooperative due to the patient's perceived pain. crying out in pain on examination Weight Current Weight Dosing Weight: 55.2 kg (09/22/24) Current Weight: 62 kg (10/08/24) Current Weight: 67.5 kg (10/06/24) Medications Medications (42) Active Scheduled: (23) aspirin 81 mg EC 81 mg 1 tab(s), Oral, qDayM balsam [place]-castor oil topical 87 mg-788 mg/g UD packet oint 5g 1 kendrick, Topical, BID ceFAZolin syringe 2 gram(s) 20 mL, IV Push (INT), q8h docusate sodium 100 mg Capsule 100 mg 1 cap(s), Oral, BID docusate-senna (Senokot S) 50 mg-8.6 mg Tablet 1 tab(s), Oral, BID enoxaparin 40 mg/ 0.4mL syringe 40 mg 0.4 mL, Subcutaneous, qDay furosemide 20 mg tablet 20 mg 1 tab(s), Oral, BID gentamicin 160 mg 4 mL, IV Piggyback, q24h gentamicin trough level Gentamicin - TROUGH reminder, Miscellaneous, Once guaifenesin 600 mg ER 600 mg 1 tab(s), Oral, BID ketorolac 30 mg/mL (1 mL) vial 30 mg 1 mL, IV Push, q6h menthol-zinc oxide topical ointment 4oz 1 kendrick, Topical, amhs metoprolol tartrate 25 mg tablet 75 mg 3 tab(s), Oral, BIDM Misc communication order 1 EA, Miscellaneous, Daily Misc communication order 1 EA, Miscellaneous, Daily multivitamin (Chromagen Forte) with iron Vitamin B Complex with C, Folic Acid and Iron tablet 1 tab(s), Oral, qDay No metformin for 48 hrs post contrast 1 EA, Miscellaneous, Unscheduled oxyCODONE 10 mg Tab (Immediate Release) 10 mg 1 tab(s), Oral, q4h pantoprazole 40 mg EC tablet 40 mg 1 tab(s), Oral, qDayAC potassium chloride 20 mEq ER tablet 20 mEq 1 tab(s), Oral, BID rifampin 300 mg capsule 300 mg 1 cap(s), Oral, q8h sodium chloride 3% Inhalation Soln 4 mL 75 mg 2.5 mL, Inhalation, q6hRT vancomycin in NS PMX 1,000 mg 250 mL, IV Piggyback, PREOP pharm Continuous: (0) PRN: (19) acetaminophen 160 mg/5 mL Suspension 650 mg 20.31 mL, Oral, q6hr acetaminophen 325 mg Tablet 650 mg 2 tab(s), Oral, q4h acetaminophen 325 mg Tablet 650 mg 2 tab(s), Oral, q4h Al hydrox/Mg hydrox/simethicone 200-200-20 mg/5 mL Susp UD 30 mL, Oral, q2h albuterol 0.5% Milagro UD (2.5 mg/0.5 mL) 2.5 mg 0.5 mL, Inhalation, QIDRT benzocaine-menthol (Cepacol Sore Throat) 15 mg-3.6mg lozenge 1 lozenge(s), Oral, q2h bisacodyl 10 mg Suppository 10 mg 1 supp, Rectal, qDay dextrose 50% Solution Disp syringe 50 mL 25 gram(s) 50 mL, IV Push, AsDirected hydromorphone 2 mg tablet 1 mg 0.5 tab(s), Oral, q4h magnesium gluconate 500 mg tablet 500 mg 1 tab(s), Oral, BID magnesium hydroxide 8% Suspension 30 mL UD 30 mL, Oral, qDay magnesium sulfate PMX 2 gram(s) 50 mL, IV Piggyback, AsDirected menthol-zinc oxide topical ointment 4oz 1 kendrick, Topical, BID ondansetron 2 mg/ 1 mL 2 mL INJ 4 mg 2 mL, IV Push, q4h phenol topical 1.4% Spr 1 spray(s), Topical, q1h polyethylene glycol 3350 - UD packet 17 gram(s) 15 mL, Oral, qDay potassium chloride (PMX) 20 mEq/100 mL 20 mEq 100 mL, IV Piggyback, AsDirected potassium chloride (PMX) 20 mEq/100 mL 40 mEq 200 mL, IV Piggyback, AsDirected potassium chloride 10 mEq ER capsule 20 mEq 2 cap(s), Oral, AsDirected Lab Results 10/08 06:25 WBC: 10.1 Hgb: 9.4 L Hct: 28.2 L Platelet: 270 Neutrophil %: 74.0 Protime: 16.2 H PT International Ratio: 1.4 Glucose Level: 110 Sodium Level: 136 Potassium Level: 4.5 BUN: 7.0 L Creatinine Lvl (s): 0.64 10/07 04:28 WBC: 10.4 Hgb: 9.7 L Hct: 28.9 L Platelet: 249 Neutrophil %: 75.3 H Protime: 17.7 H PT International Ratio: 1.5 Glucose Level: 125 H Sodium Level: 135 L Potassium Level: 3.7 BUN: 11.0 Creatinine Lvl (s): 0.63 EKG No qualifying data available. Assessment/Plan Asystole - S/P PPM 10/05/2024 Pacemaker implanted/connected to epicardial wires on 10/02/[address] Olguin. Pacemaker found to be functioning adequately. Underlying complete heart block/asystole. On telemetry this morning patient was in sinus tachycardia likely due to to withdrawal. Once the patient is cleared from the hospital he will require to eat site check in a 90-day follow-up. EP will sign off. Patient is stable from an EP standpoint. Thank you. IV drug abuse Noted. It has been explained in detail that the patient needs to restrain from IV drug use and remain sober. Encouraged patient to seek out sobriety housing. Sinus tachycardia Likely due to withdrawal. Pacemaker functioning adequately. [1] EP Consult Note; BRENTON MOREL 10/03/2024 14:10 EDT Digitally Signed by DOLLY BOOTH PA-C on 10/08/2024 12:21 PM [id number] Cardiology Progress note Date of Service 10/08/2024 12:11:49 Chief Complaint CHB post TV/MV repair. status post PPM Subjective This is a 29-year-old male status post redo sternotomy and tricuspid valve with implantation of permanent epicardial wires on October 02, 2024. Post procedure the patient's rhythm was CHB/asystole. PMH: 1. Endocarditis 2. Status post redo sternotomy redo tricuspid valve repair utilizing a 27 CE Magna Ease with permanent epicardial wires completed by Dr. Messina October 02, 2024 3. Asystole/complete heart block 4. Staph aureus bacteremia infectious disease following 5. Septic pulmonary embolism Dr. Olguin connected/implanted the pacemaker to the wires on 10/05/2024. The patient is in immense pain this morning. Difficult to evaluate. Objective Vitals and Measurements T: 37.2 C (Oral) TMIN: 36.9 C (Oral) TMAX: 37.6 C (Oral) HR: 122 (Monitored) RR: 18 BP: 126/78 SpO2: 94% WT: 62.0 kg Intake and Output 7AM Yesterday to 7AM Today Intake and Output (Last 24 hours) Intake Oral Intake 1080.00 Output Urine Voided 5450.00 Stool Count 1.00 Total Summary Total Intake 1080.00 Total Output 5450.00 Fluid Balance -4370.00 Physical Exam General Appearance: patient writhing in pain, appears nourished Head: normocephalic, atraumatic EENT: mucous membranes moist, PERRLA Neck: trachea midline, no JVD noted, no carotid bruit Cardiac: sinus tachycardia, S1 WNL, no significant gallop/rub noted, _ Lungs: CTAB, respirations easy and unlabored on room air Abdomen: flat, soft, nontender, bowel sounds present x4 Extremities: DRIVER x4, PPPx4, no edema noted Neurological: alert and oriented x4, CN intact Skin: warm, dry, no rashes or wounds noted Psychiatric: uncooperative due to the patient's perceived pain. crying out in pain on examination Weight Current Weight Dosing Weight: 55.2 kg (09/22/24) Current Weight: 62 kg (10/08/24) Current Weight: 67.5 kg (10/06/24) Medications Medications (42) Active Scheduled: (23) aspirin 81 mg EC 81 mg 1 tab(s), Oral, qDayM balsam Mahendra-castor oil topical 87 mg-788 mg/g UD packet oint 5g 1 kendrick, Topical, BID ceFAZolin syringe 2 gram(s) 20 mL, IV Push (INT), q8h docusate sodium 100 mg Capsule 100 mg 1 cap(s), Oral, BID docusate-senna (Senokot S) 50 mg-8.6 mg Tablet 1 tab(s), Oral, BID enoxaparin 40 mg/ 0.4mL syringe 40 mg 0.4 mL, Subcutaneous, qDay furosemide 20 mg tablet 20 mg 1 tab(s), Oral, BID gentamicin 160 mg 4 mL, IV Piggyback, q24h gentamicin trough level Gentamicin - TROUGH reminder, Miscellaneous, Once guaifenesin 600 mg ER 600 mg 1 tab(s), Oral, BID ketorolac 30 mg/mL (1 mL) vial 30 mg 1 mL, IV Push, q6h menthol-zinc oxide topical ointment 4oz 1 kendrick, Topical, amhs metoprolol tartrate 25 mg tablet 75 mg 3 tab(s), Oral, BIDM Misc communication order 1 EA, Miscellaneous, Daily Misc communication order 1 EA, Miscellaneous, Daily multivitamin (Chromagen Forte) with iron Vitamin B Complex with C, Folic Acid and Iron tablet 1 tab(s), Oral, qDay No metformin for 48 hrs post contrast 1 EA, Miscellaneous, Unscheduled oxyCODONE 10 mg Tab (Immediate Release) 10 mg 1 tab(s), Oral, q4h pantoprazole 40 mg EC tablet 40 mg 1 tab(s), Oral, qDayAC potassium chloride 20 mEq ER tablet 20 mEq 1 tab(s), Oral, BID rifampin 300 mg capsule 300 mg 1 cap(s), Oral, q8h sodium chloride 3% Inhalation Soln 4 mL 75 mg 2.5 mL, Inhalation, q6hRT vancomycin in NS PMX 1,000 mg 250 mL, IV Piggyback, PREOP pharm Continuous: (0) PRN: (19) acetaminophen 160 mg/5 mL Suspension 650 mg 20.31 mL, Oral, q6hr acetaminophen 325 mg Tablet 650 mg 2 tab(s), Oral, q4h acetaminophen 325 mg Tablet 650 mg 2 tab(s), Oral, q4h Al hydrox/Mg hydrox/simethicone 200-200-20 mg/5 mL Susp UD 30 mL, Oral, q2h albuterol 0.5% Milagro UD (2.5 mg/0.5 mL) 2.5 mg 0.5 mL, Inhalation, QIDRT benzocaine-menthol (Cepacol Sore Throat) 15 mg-3.6mg lozenge 1 lozenge(s), Oral, q2h bisacodyl 10 mg Suppository 10 mg 1 supp, Rectal, qDay dextrose 50% Solution Disp syringe 50 mL 25 gram(s) 50 mL, IV Push, AsDirected hydromorphone 2 mg tablet 1 mg 0.5 tab(s), Oral, q4h magnesium gluconate 500 mg tablet 500 mg 1 tab(s), Oral, BID magnesium hydroxide 8% Suspension 30 mL UD 30 mL, Oral, qDay magnesium sulfate PMX 2 gram(s) 50 mL, IV Piggyback, AsDirected menthol-zinc oxide topical ointment 4oz 1 kendrick, Topical, BID ondansetron 2 mg/ 1 mL 2 mL INJ 4 mg 2 mL, IV Push, q4h phenol topical 1.4% Spr 1 spray(s), Topical, q1h polyethylene glycol 3350 - UD packet 17 gram(s) 15 mL, Oral, qDay potassium chloride (PMX) 20 mEq/100 mL 20 mEq 100 mL, IV Piggyback, AsDirected potassium chloride (PMX) 20 mEq/100 mL 40 mEq 200 mL, IV Piggyback, AsDirected potassium chloride 10 mEq ER capsule 20 mEq 2 cap(s), Oral, AsDirected Lab Results 10/08 06:25 WBC: 10.1 Hgb: 9.4 L Hct: 28.2 L Platelet: 270 Neutrophil %: 74.0 Protime: 16.2 H PT International Ratio: 1.4 Glucose Level: 110 Sodium Level: 136 Potassium Level: 4.5 BUN: 7.0 L Creatinine Lvl (s): 0.64 10/07 04:28 WBC: 10.4 Hgb: 9.7 L Hct: 28.9 L Platelet: 249 Neutrophil %: 75.3 H Protime: 17.7 H PT International Ratio: 1.5 Glucose Level: 125 H Sodium Level: 135 L Potassium Level: 3.7 BUN: 11.0 Creatinine Lvl (s): 0.63 EKG No qualifying data available. Assessment/Plan Asystole - S/P PPM 10/05/2024 Pacemaker implanted/connected to epicardial wires on 10/02/[address] Olguin. Pacemaker found to be functioning adequately. Underlying complete heart block/asystole. On telemetry this morning patient was in sinus tachycardia likely due to to withdrawal. Once the patient is cleared from the hospital he will require to eat site check in a 90-day follow-up. EP will sign off. Patient is stable from an EP standpoint. Thank you. IV drug abuse Noted. It has been explained in detail that the patient needs to restrain from IV drug use and remain sober. Encouraged patient to seek out sobriety housing. Sinus tachycardia Likely due to withdrawal. Pacemaker functioning adequately. [1] EP Consult Note; BRENTON MOREL 10/03/2024 14:10 EDT Digitally Signed by DOLLY BOOTH PA-C on 10/08/2024 12:21 PM [id number] Note* Exam Date Time Procedure Performing Provider Status 10/05/24 1:41 PM Electrocardiogram - EKG - CV MONSERRAT PINEDA MD; Auth (Verified) ECG Final Report SINUS TACHYCARDIA LEFT BUNDLE BRANCH BLOCK Electronic Signature: AUDREY PINEDA MD 10/06/2024 22:11:58 [id number] Note* Exam Date Time Procedure Performing Provider Status 10/05/24 10:35 AM Permanent Pacemaker - CV PNIEDA OLGUIN MD; Auth (Verified) [id number] Infectious disease Progress note Date of Service 10/05/2024 Objective Vitals and Measurements T: 37 C (Oral) TMIN: 36.7 C (Oral) TMAX: 37 C (Oral) HR: 80 (Monitored) RR: 28 BP: 132/68(Line) SpO2: 100% Physical Exam ID CONSULTATION REASON: Tricuspid Endocarditis ANTIBIOTICS Past Antibiotics: Zosyn 3.375g IV Q8h 09/22 09/24 Rifampin 300mg IV Q12h 09/24 - 09/25 Rocephin 2g IV Q24h 09/24 - 09/25 Vanco Dosing IV Q24h 09/22 - 09/25 Daptomycin 700mg IV Q24h 09/25 - 09/27 Nafcillin 2g IV Q4h 09/25 - 09/27 Teflaro 600mg IV Q12h 09/25 - 09/27 Vanco 1g IV x1 PreOP 10/02 Flagyl 500mg IV Q8h 09/30 - 10/04 Rifampin 300mg IV Q12h 10/02 - 10/04 Current Antibiotics: Cefazolin 2g IV Q8h 09/27 - 11/13 Flagyl 500mg PO TID 10/04 - 10/05 Rifampin 300mg PO Q8h 10/04 - Gentamicin 160mg IV Q24h 10/04 - 10/18 Problem List High-grade MSSA bacteremia with sepsis Endocarditis of tricuspid valve, history of tricuspid valve replacement last year IV drug use Septic pulmonary emboli lactic acidosis sepsis TAMIE October 01, 2024 ID Physician Impression: Patient with prosthetic valve endocarditis with MSSA without unequivocal signs of metastatic infection to joints or back but history makes it very difficult to determine the significance of the back pain MSSA PVE is usually treated with cefazolin or nafcillin plus rifampin together with gentamicin for the first 2 to 3 weeks Watch for complications of an large lung abscess or empyema and metastatic infection as well as complications of PVE I would add rifampin and low-dose 3 mg/per kilogram gentamicin but first discuss with critical caremedicine Additionally the patient is such a poor historian I would probably MRI his entire spine to be sure were not missing anything I will leave him on Flagyl for a few more days but I believe his infected molar was removed Probable hepatitis C as well October 02, 2024 ID Physician Impression: As above source control should be achieved with the removal of the infected prosthetic valve and vegetations-presumably the antibiotics had decreased the quantitative amount of bacteria along the prosthetic valve but I would think it is quite unlikely to have sterilized the valve Appears he was clearing the infection with cefazolin alone but I think with the new prosthetic valve in I would prefer to use the multidrug regimen which includes rifampin and low-dose gentamicin--patient's renal function is remaining normal. I will still hold the gentamicin until tomorrow and see if his renal function remains stable postoperatively but I will start rifampin today-review medications for drug drug interactions Drug-Drug Interactions D Propofol RifAMPin C Ketamine RifAMPin (CY Inducers (Strong)) Depends on Route C Ketamine (MOID MIDDLE SCHOOL TEACHER Depressants) Propofol (MOID MIDDLE SCHOOL TEACHER Depressants) C Ondansetron Propofol (QT-prolonging Miscellaneous Agents (Moderate Risk)) Depends on Route C Ondansetron RifAMPin (CY Inducers (Strong)) C Propofol (Bradycardia-Causing Agents) Vasopressin (Bradycardia-Causing Agents) B MetroNIDAZOLE (Systemic) (QT-prolonging Agents (Indeterminate Risk - Caution)) Ondansetron Depends on Route B MetroNIDAZOLE (Systemic) (QT-prolonging Agents (Indeterminate Risk - Caution)) Propofol (QT-prolonging Agents (Moderate Risk)) Variety of QT prolonging interactions. Also rifampin may increase ketamine metabolism especially when given orally but this should be IV given in the ICU the sedation should be able to be titrated I think without problems and the QT monitor Supportive care through cardiovascular surgery October 03, 2024 ID Physician Impression: As above-patient much improved today. Off the ventilator, almost off the sedation, no fever, white blood cell count normalized Blood cultures from September 29 have remained negative after 3 to 4 days looks like clearance is being achieved even prior to source control Added rifampin to his regimen yesterday and would like to add gentamicin and low dose of 3 mg/per kilogram per day-recommend check his urine output over the day And if it becomes better and his creatinine stays normal as it has then possibly started later today or tomorrow. As we dispense with some of the agents that may interact with the rifampin such as propofol and ketamine which are now discontinued the possibility of drug interactions becomes less also I think the ondansetron is only being used occasionally I would prefer the permanent pacemaker be performed on Tuesday but if needed given that he will be 3days postoperative with a source controlled and almost a week since the last positive blood cultures if the pacemaker has to be placed on Tuesday if the temporary pacemaker was placed do not replace with another temporary pacer October 04, 2024 ID Physician Impression: As above Patient continues to improve postoperatively hopefully remove all his devices as soon as possible with the temporary pacer once the permanent pacer is placed which will probably be Tuesday. Given the prosthetic valve endocarditis I think a regimen for 6 weeks of cefazolin or nafcillin andrifampin with low-dose gentamicin (for 2 weeks) is indicated. ICU pharmacy is helping adjust his antibiotics. Watch closely for any aminoglycoside toxicity such as nephrotoxicity (his creatinine is improving) or ototoxicity but I think this is of low likelihoodgiven the patient's age, low dose of aminoglycoside, and only 2-week duration October 05, 2024 ID Physician Impression: Patient seems to be improving tremendously and seems to be responding to source control, valve replacement and antibiotic therapy to control his infection. Patient needs to receive 6 weeks of antibiotic therapy at an institutional setting Agree with the enhanced timetable for pacemaker placement given that instability the risk outweighsthe benefit of waiting a number of days longer Infectious Disease Recommendations As below Will Sign off Home-going or Institutional instructions for Home Intravenous Antibiotic Therapy 1. Antibiotics: 1.1 Ancef 2 g IV every 8 hours for 6 weeks (10/02 - 11/13) 1.2 Rifampin 300 mg p.o. every 8 hours (10/03 - 11/13) 1.3 Gentamicin 3 Mg/Kg/Day Every 12 Hours for 2 Weeks (10/04 - 10/18) 2. PICC line 3. Follow-up PICC line closely for drainage, infection, dysfunction, bleeding 4. CBC and CMP and sed rate weekly while on IV antibiotics. Tobra trough levels every 5 days while on tobramycin- When discharged FAX lab results to Dr Westfall at [phone] 5. Watch closely for antibiotic side effects Gastrointestinal side effects including nausea vomiting and diarrhea Rash or other allergic phenomenon Ototoxicity (hearing or balance) and nephrotoxicity especially from the aminoglycoside- discussed with patient to notify healthcare providers if he develops any new problems with this 6. Watch for severe diarrhea possible C. difficile 7. Close follow-up with the infectious disease service Dr. Tanya Westfall 8. If any severe complications as above needs to follow-up immediately with infectious disease service Infectious Disease Attending: Reviewed case with [employer] AUDITOR TAX (Singh) and with the ICU pharmacist (Purnima) Some instability of the pacemaker wire which required a new pacer to be placed and hasten the placement of the permanent place maker which will be done today I also discussed with the patient the need for prophylaxis in the future with any invasive procedure in the house that of continued IV drug use with possible bacterial contamination Patient is having some cough he is off oxygen he is not short of breath his review of systems is negative for all his systems except he does still have some loose bowel movements but otherwise his skin, joints, , GI, pulmonary review of systems is unremarkable Chart reviewed, patient examined. Patient appears alert and oriented x3, can be difficult to understand his speech at times, off of sedation, resting in bed with bedside RN present. No c/o NVD, patient with 0 documented BMs in the last 24 hours. Denies SO although RR noted to be increased at rest, reports loose cough-Yankauer present at bedside. Reports chest discomfort, denies dysuria, denies chills/sweats at this time. No new complaints this AM. Respirations increased at rest, 100% on RA withcontinuous pulse oximeter in place. Patient has remained afebrile for the last 24 hours. He is not requiring Pressor Support at this time. Per documentation, last evening patient had loss of capture on pacemaker. He had episode of coughing followed by loss of capture. Increased V ma to 25 without effect, changed generator without effect. Underlying rate 45. Remained hemodynamically stable. Placed pads in case patient became unstable requiring transcutaneous pacing. aquatic laborer activated for temp pacing wire. Per bedside RN today, patient to have pacer placed today rather than Tuesday due to events last evening. FOCUSED ASSESSMENT: Infectious Disease Attending: Temporary pacemaker in place PICC placed Sternal wound healing well Agree with rest of physical examination as below CVS: One-to-one V paced - temporary pacemaker in place now to left femoral site LUNGS: Clear diminished bilaterally, denies SOB, loose cough-Yankauer present, increased RR at rest, on RA with continuous pulse oximeter in place ABDOMEN: Rounded, semifirm, nontender, + bowel sounds, passing gas, 0 documented BMs in the last 24hours SKIN: Scattered scarring noted, scattered tattoos noted, midline chest procedure site approximated and EMILY without drainage nor erythema noted, old chest tube insertion sites/old temporary pacer- site covered in gauze dressing INCISIONS/DRESSINGS: Old Chest Tube sites/old temporary pacer site gauze dressing appears clean andintact, right groin dressing appears clean and intact, left chest dressings intact EXTREMITIES: +1-2 BLE/ankle edema noted, +1-2 generalized edema, generalized weakness-ongoing LINES/TUBES/DRAINS: KEON PICC Line dressing dry & intact, no drainage or erythema at site. JORGE L IV dressing dry & intact, no drainage or erythema at site. Left Brachial-line dressing dry & intact, no drainage or erythema at site. Left femoral temporary pacer site dressing dry & intact, no drainage or erythema at site. Weight Dosing Weight: 55.2 kg (09/22/24) Medications Medications (39) Active Scheduled: (16) aspirin 81 mg EC 81 mg 1 tab(s), Oral, qDayM balsam Mahendra-castor oil topical 87 mg-788 mg/g UD packet oint 5g 1 kendrick, Topical, BID ceFAZolin syringe 2 gram(s) 20 mL, IV Push (INT), q8h docusate-senna (Senokot S) 50 mg-8.6 mg Tablet 1 tab(s), Oral, BID enoxaparin 40 mg/ 0.4mL syringe 40 mg 0.4 mL, Subcutaneous, qDay furosemide 20 mg/2 mL vial 20 mg 2 mL, IV Push, q8h gentamicin 160 mg 4 mL, IV Piggyback, q24h menthol-zinc oxide topical ointment 4oz 1 kendrick, Topical, amhs metronidazole 500 mg Tablet 500 mg 1 tab(s), Oral, TID Misc communication order 1 EA, Miscellaneous, Daily mupirocin 2% Ointment 22 Gram(s) tube 1 kendrick, Nostril, each, q12h oxyCODONE 10 mg Tab (Immediate Release) 10 mg 1 tab(s), Oral, q4h pantoprazole 40 mg EC tablet 40 mg 1 tab(s), Oral, qDayAC potassium chloride 20 mEq ER tablet 20 mEq 1 tab(s), Oral, TIDM rifampin 300 mg capsule 300 mg 1 cap(s), Oral, q8h sodium chloride 3% Inhalation Soln 4 mL 75 mg 2.5 mL, Inhalation, q6hRT Continuous: (3) dexmedetomidine 400 mcg [0.2 mcg/kg/hr] + Sodium Chloride 0.9% 96 mL 96 mL, Intravenous, 2.76 mL/hr NS (0.9% nacl) 1,000 mL 1,000 mL, Intravenous, 20 mL/hr NS (0.9% nacl) 500 mL 500 mL, Intravenous, 20 mL/hr PRN: (20) acetaminophen 160 mg/5 mL Suspension 650 mg 20.31 mL, Oral, q6hr acetaminophen 325 mg Tablet 650 mg 2 tab(s), Oral, q4h albumin human 5% 12.5 gram(s) 250 mL, IV Piggyback (MED), AsDirected albuterol 0.5% Milagro UD (2.5 mg/0.5 mL) 2.5 mg 0.5 mL, Inhalation, QIDRT calcium chloride 1,000 mg 10 mL, IV Piggyback, AsDirected calcium chloride 400 mg 4 mL, IV Piggyback, AsDirected dextrose 50% Solution Disp syringe 50 mL 25 gram(s) 50 mL, IV Push, AsDirected hydromorphone 2 mg tablet 1 mg 0.5 tab(s), Oral, q4h magnesium sulfate 4g/50mL PMX 4 g 50 mL, IV Piggyback, AsDirected magnesium sulfate PMX 2 g 50 mL, IV Piggyback, AsDirected menthol-zinc oxide topical ointment 4oz 1 kendrick, Topical, BID nitroglycerin 100 mcg/1 mL 10 mL VIAL 100 mcg 1 mL, IV Push, AsDirected ondansetron 2 mg/ 1 mL 2 mL INJ 4 mg 2 mL, IV Push, q4h ondansetron 2 mg/ 1 mL 2 mL INJ 4 mg 2 mL, IV Push, q4h potassium chloride (PMX) 10 mEq 50 mL, IV Piggyback, AsDirected potassium chloride (PMX) 20 mEq 50 mL, IV Piggyback, AsDirected potassium chloride (PMX) 40 mEq 100 mL, IV Piggyback, AsDirected potassium chloride (PMX) 60 mEq 150 mL, IV Piggyback, AsDirected protamine 10 mg/mL (50 mg/5 mL) vial 50 mg 5 mL, IV Push, Once sodium phosphate 13.8 mmol 4.6 mL, IV Piggyback, AsDirected Lab Results 10/05 03:31 WBC: 15.3 H Hgb: 10.7 L Hct: 32.0 L Platelet: 242 Neutrophil %: 84.2 H Glucose Level: 127 H Sodium Level: 134 L Potassium Level: 3.8 BUN: 13.0 Creatinine Lvl (s): 0.71 Labs: CPK 716 BC ID PCR, Staphylococcus, Staphylococcus Aureus, Streptococcus detected 09/22/2024 SARS COVID negative Flu A/B negative RSV negative Hepatitis A/B nonreactive Hepatitis C reactive 09/26/2024 HCV PCR not detected HIV 1/2 nonreactive RPR nonreactive SGOT 39, SGPT <7 Total Bili 2.3 RIGHT GROIN LYMPH NODES: - 2 LYMPH NODES WITH REACTIVE LYMPHOID HYPERPLASIA- NEGATIVE FOR MALIGNANCY CULTURE RESULTS/LOY: 09/22 Blood Cultures -F 04/20 Bottle: Staphylococcus aureus & Staphylococcus aureus #2 05/21 Bottle: Staphylococcus aureus & Staphylococcus aureus #2 & Streptococcus mitis/oralis group 09/23 Blood Cultures 05/20 -F Staphylococcus aureus & Staphylococcus aureus #2 09/24 Blood Cultures -F 04/21 Bottle: Staphylococcus aureus 06/19 Bottle: Staphylococcus aureus & Staphylococcus aureus #2 09/25 Respiratory Culture -F Normal respiratory cathy present at 48 hours 09/26 Blood Cultures 2/2 -F Staphylococcus aureus 09/26 Respiratory Culture -F Normal respiratory cathy present at 48 hours 09/27 Blood Cultures 2/2 -F Staphylococcus aureus 09/29 Blood Cultures 05/20 no growth to date -P 10/02 Church Organist -P No growth to date 10/02 Culture Tissue (tricuspid valve) -P No growth to date 10/02 AFB Culture -P Acid Fast Smear from Concentrated Specimen: Negative 10/02 Fungal Culture -P No fungus isolated to date Imaging Results and Diagnostics XR Chest 1 View Result Date: October 05, 2024 Verified By: SHANNA HAYWOOD MD CLINICAL STATEMENT: IMPRESSION: No significant interval change. XR Chest 1 View Result Date: October 04, 2024 Verified By: RONNY ZENG DO CLINICAL STATEMENT: IMPRESSION: Interval placement of right-sided PICC with tip terminating at the cavoatrialjunction. Interval removal of mediastinal drain and left sided chest tube. No evidenceof pneumothorax. No significant change in bilateral lung aeration with widespread bilateralmixed interstitial and alveolar airspace disease and scattered cavitarylesions. Stable moderate right and trace left pleural effusions. CT Maxillofacial w/o Contrast Result Date: September 28, 2024 Verified By: AGATA GABRIEL MD CLINICAL STATEMENT: IMPRESSION: Right periapical molar tooth abscess, with cortical breakthrough on themedial aspect ofthe mandible and associated periostitis which limits theinfection to the bone. No discrete sublingual abscess, the lack of contrastsomewhat limits evaluation. CT Thorax w/o Contrast Result Date: September 28, 2024 Verified By: AGATA GABRIEL MD CLINICAL STATEMENT: IMPRESSION: Increased number and size of numerous bilateral cavitary nodules withworsening consolidative opacities in the bibasilar lungs since the prior CTexam on 09/22/2024. Small right pleural effusion. I have personally reviewed the images of this examination and agree with theresident's findings and interpretation. US Abdomen Limited Result Date: September 27, 2024 Verified By: YAZMIN COSTA MD CLINICAL STATEMENT: IMPRESSION: Starry night appearance of the liver can be seen with acute hepatitis. Gallbladder sludge with gallbladder wall thickening. The gallbladder wallthickening can be seen secondary to hepatitis. Sonographic Kaur signcannot be assessed to evaluate for evidence of acute cholecystitis. Smallamount of ascites. Increased cortical echogenicity of the right kidney suggests medical renaldisease. CT Head or Brain w/o Contrast Result Date: September 23, 2024 Verified By: RONNY RAMIREZ MD CLINICAL STATEMENT: IMPRESSION: No acute intracranial abnormality. 09/23 TTE Summary: 1. Left ventricle: The cavity size is normal. Wall thickness is mildly increased. Systolic functionis normal. The estimated ejection fraction is 55%. Although no diagnostic regional wall motion abnormality is identified, this possibility cannot be completely excluded on the basis of this study. Unable to assess diastolic function. 2. Ventricular septum: Thickness is mildly increased. 3. Right ventricle: The cavity size is moderately increased. Systolic function is mildly reduced. The RV systolic pressure by Doppler is 68 mm Hg. 4. Tricuspid valve: A bioprosthetic valve is present. There is a large, 0.6 cm (W) x 1.6 cm (L), mobile vegetation on the anterior leaflet. The findings are consistent with severe stenosis. MG 14 mm Hg @ HR of 115. There is severe regurgitation. 5. Right atrium: The atrium is severely dilated. The estimated right atrial pressure is 15 mm Hg. 6. Atrial septum: There is a possible patent foramen ovale. Echo contrast study and agitated salinein the baseline state, shows a small [id number] atrial level shunt. Recommendations: 1. TV prosthesis endocarditis. Large vegetation. Incompletely visualized. At least 16 x 6 mm. 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 TS gradient likely overestimates stenosis severity due to concomittant severe TR and HR of 115. 2. Consider YESSENIA for further evaluation of TV prosthetic endocarditis. 09/27/2024 YESSENIA Summary: 1. Left ventricle: The cavity size is normal. Wall thickness is normal. Systolic function is normal. 2. Ventricular septum: There is no evidence of a ventricular septal defect. 3. Aortic valve: There is no evidence of a vegetation. There is trivial regurgitation. 4. Mitral valve: There is no evidence of vegetation. 5. Left atrium: There is no evidence of a thrombus in the atrial cavity or appendage. No spontaneous echo contrast is observed. 6. Pulmonic valve: There is no evidence of a vegetation. 7. Tricuspid valve: There is a large, mobile vegetation on the right atrial aspect of the . There is moderate-severe regurgitation. 8. Right atrium: There is no evidence of a thrombus in the atrial cavity or appendage. 10/02 YESSENIA in [facility] Summary: 1. Left ventricle: The cavity size is normal. There is concentric hypertrophy. Systolic function isnormal by visual assessment. 2. Ventricular septum: There is no evidence of a ventricular septal defect. 3. Tricuspid valve: There is a vegetation. Large mobile vegetations noted on all valve leaflets c/wendocarditis, vs mass, vs thrombus. Clinical correlation necessary, but in context, most likely endocarditis. There is wide-open regurgitation. 4. Right atrium: The atrium is moderately to severely dilated. There is no evidence of a thrombus in the atrial cavity or appendage. 5. Atrial septum: A patent foramen ovale cannot be excluded. Recommendations: This is a limited intra-operative transesophageal echocardiogram, limited in scopeto management of the anesthetic needs of the patient and assistance to the surgeon for operative management. Findings were shared with surgeon in real time. Digitally Signed by Parvin Burns RN on 10/05/2024 10:06 AM Digitally Signed by NONI OCNN MD on 10/05/2024 10:58 AM [id number] Note* Exam Date Time Procedure Performing Provider Status 10/04/24 8:07 PM Temporary Pacemaker Insertion - CV Modified [id number] Note* Exam Date Time Procedure Performing Provider Status 10/04/24 5:55 PM Electrocardiogram - EKG - CV SUKUMAR ARCE MD; Auth (Verified) ECG Final Report A-V DUAL-PACED RHYTHM WITH SOME INHIBITION Electronic Signature: MEY ARCE MD 10/05/2024 22:40:48 [facility] [id number] Note Date of Service October 04, 2024 Shared/Split visit with Dr. Olguin Chief Complaint CHB Subjective This is a 29-year-old male status post redo sternotomy and tricuspid valve with implantation of permanent epicardial wires on October 02, 2024. At this time we are awaiting clearance from infectious disease. Who believes he will be ready for pacemaker implant on Tuesday, October 08, 2024. Past medical history is significant for 1. Endocarditis 2. Status post redo sternotomy redo tricuspid valve repair utilizing a 27 CE Magna Ease with permanent epicardial wires completed by Dr. Messina October 02, 2024 3. Asystole/complete heart block 4. Staph aureus bacteremia infectious disease following 5. Septic pulmonary embolism Patient originally presented to [facility] emergency room on September 22, 2024. A CTA demonstratednumerous persistent cavitary pulmonary nodules that were questionable for septic emboli. Patient was then admitted to [facility] and eventually once stable underwent tricuspid valve replacement. During the procedure there was concern for asystole. EP has now been consulted for further evaluation. The patient is still demonstrating complete heart block. Will move forward with implantation of a device. Will need clearance from infectious disease. Echocardiogram completed September 23, 2024 demonstrates a preserved EF at 55%. RVSP elevated at 68 mmHg Tricuspid valve bioprosthetic valve is present with large mobile vegetation on the anterior leafletconsistent with severe stenosis with severe regurgitation Critical finding with endocarditis. Transesophageal echocardiogram completed September 27, 2024 demonstrates normal systolic function Tricuspid valve has large mobile vegetation on the right atrial aspect. Moderate severe regurgitation. Today, the patient is resting upright in bedside chair. He is tired and fatigued. But is doing muchbetter today. He understands the importance of moving forward with pacemaker implant. Once again all risk first benefit was explained. Patient is understanding agreeable. Objective Vitals and Measurements T: 36.7 C (Oral) TMIN: 36.7 C (Oral) TMAX: 36.8 C (Oral) HR: 96 (Monitored) RR: 30 BP: 130/79(Line)SpO2: 98% Physical Exam General - 29 yr old male s/p redo open heart HEENT - head normocephalic, atraumatic. Pupils equal reactive to light. Nose patent bilaterally. Oropharynx without erythema or exudate. Neck -supple, full range of motion. No carotid bruits noted. Cardiovascular - Regular rate and rhythm. No significant murmurs appreciated. Lungs - clear to auscultation bilaterally. Abdomen - soft, nontender. Bowel sounds present in all 4 quadrants. Musculoskeletal -full weightbearing. Full range of motion in all extremities. Skin -intact, no lesions or rashes noted. Neurological - cranial nerves grossly intact. Mood and affect appropriate to situation. Peripheral vascular - No pitting edema Weight Dosing Weight: 55.2 kg (09/22/24) Medications Medications (42) Active Scheduled: (18) aspirin 81 mg EC 81 mg 1 tab(s), Oral, qDayM balsam Mahendra-castor oil topical 87 mg-788 mg/g UD packet oint 5g 1 kendrick, Topical, BID ceFAZolin syringe 2 gram(s) 20 mL, IV Push (INT), q8h docusate-senna (Senokot S) 50 mg-8.6 mg Tablet 1 tab(s), Oral, BID enoxaparin 40 mg/ 0.4mL syringe 40 mg 0.4 mL, Subcutaneous, qDay furosemide 20 mg/2 mL vial 20 mg 2 mL, IV Push, q8h gentamicin 160 mg 4 mL, IV Piggyback, q24h insulin lispro 100 units/mL Soln (3 mL) Give 0-5 units/dose, Subcutaneous, achs lidocaine 1% (MPF) 2 mL vial pf 30 mg 3 mL, Intradermal, prep pharm menthol-zinc oxide topical ointment 4oz 1 kendrick, Topical, amhs metronidazole 500 mg Tablet 500 mg 1 tab(s), Oral, TID Misc communication order 1 EA, Miscellaneous, Daily mupirocin 2% Ointment 22 Gram(s) tube 1 kendrick, Nostril, each, q12h oxyCODONE 10 mg Tab (Immediate Release) 10 mg 1 tab(s), Oral, q4h pantoprazole 40 mg EC tablet 40 mg 1 tab(s), Oral, qDayAC potassium chloride 20 mEq ER tablet 20 mEq 1 tab(s), Oral, TIDM rifampin 300 mg capsule 300 mg 1 cap(s), Oral, q8h sodium chloride 3% Inhalation Soln 4 mL 75 mg 2.5 mL, Inhalation, q6hRT Continuous: (3) dexmedetomidine 400 mcg [0.2 mcg/kg/hr] + Sodium Chloride 0.9% 96 mL 96 mL, Intravenous, 2.76 mL/hr NS (0.9% nacl) 1,000 mL 1,000 mL, Intravenous, 20 mL/hr NS (0.9% nacl) 500 mL 500 mL, Intravenous, 20 mL/hr PRN: (21) acetaminophen 160 mg/5 mL Suspension 650 mg 20.31 mL, Oral, q6hr acetaminophen 325 mg Tablet 650 mg 2 tab(s), Oral, q4h albumin human 5% 12.5 gram(s) 250 mL, IV Piggyback (MED), AsDirected calcium chloride 1,000 mg 10 mL, IV Piggyback, AsDirected calcium chloride 400 mg 4 mL, IV Piggyback, AsDirected dextrose 50% Solution Disp syringe 50 mL 25 gram(s) 50 mL, IV Push, AsDirected dextrose 50% Solution Disp syringe 50 mL 12.5 g 25 mL, IV Push, AsDirected glucagon recombinant 1 mg 1 mg 1 mL, Intramuscular, AsDirected HYDROmorphone 0.5 mg/0.5 mL syringe 0.5 mg 0.5 mL, IV Push, q1h magnesium sulfate 4g/50mL PMX 4 g 50 mL, IV Piggyback, AsDirected magnesium sulfate PMX 2 g 50 mL, IV Piggyback, AsDirected menthol-zinc oxide topical ointment 4oz 1 kendrick, Topical, BID nitroglycerin 100 mcg/1 mL 10 mL VIAL 100 mcg 1 mL, IV Push, AsDirected ondansetron 2 mg/ 1 mL 2 mL INJ 4 mg 2 mL, IV Push, q4h ondansetron 2 mg/ 1 mL 2 mL INJ 4 mg 2 mL, IV Push, q4h potassium chloride (PMX) 10 mEq 50 mL, IV Piggyback, AsDirected potassium chloride (PMX) 20 mEq 50 mL, IV Piggyback, AsDirected potassium chloride (PMX) 40 mEq 100 mL, IV Piggyback, AsDirected potassium chloride (PMX) 60 mEq 150 mL, IV Piggyback, AsDirected protamine 10 mg/mL (50 mg/5 mL) vial 50 mg 5 mL, IV Push, Once sodium phosphate 13.8 mmol 4.6 mL, IV Piggyback, AsDirected Lab Results 10/04 14:12 Potassium Level: 4.7 10/04 08:01 Potassium Level: 3.9 10/04 03:05 WBC: 15.6 H Hgb: 10.5 L Hct: 32.0 L Platelet: 180 Neutrophil %: 85.2 H Glucose Level: 134 H Sodium Level: 138 Potassium Level: 3.3 L BUN: 23.0 H Creatinine Lvl (s): 0.78 10/03 17:56 Glucose Level: 158 H Sodium Level: 140 Potassium Level: 3.9 BUN: 24.0 H Creatinine Lvl (s): 0.84 10/03 12:28 Potassium Level: 3.3 L 10/03 06:48 Potassium Level: 4.0 EKG No qualifying data available. 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 Patient is still demonstrating underlying complete heart block. Per chart review the patient will continue with IV antibiotics. And reevaluate this weekend. If the patient is stable we will plan for pacemaker implant on Tuesday - October 08, 2024 IV drug abuse Noted. It explained in detail that the patient needs to restrain from IV drug use and remain sober. Digitally Signed by BRENTON MOREL on 10/04/2024 04:11 PM [id number] Note Date of Service October 04, 2024 Shared/Split visit with Dr. Olguin Chief Complaint CHB Subjective This is a 29-year-old male status post redo sternotomy and tricuspid valve with implantation of permanent epicardial wires on October 02, 2024. At this time we are awaiting clearance from infectious disease. Who believes he will be ready for pacemaker implant on Tuesday, October 08, 2024. Past medical history is significant for 1. Endocarditis 2. Status post redo sternotomy redo tricuspid valve repair utilizing a 27 CE Magna Ease with permanent epicardial wires completed by Dr. Messina October 02, 2024 3. Asystole/complete heart block 4. Staph aureus bacteremia infectious disease following 5. Septic pulmonary embolism Patient originally presented to [facility] emergency room on September 22, 2024. A CTA demonstratednumerous persistent cavitary pulmonary nodules that were questionable for septic emboli. Patient was then admitted to [facility] and eventually once stable underwent tricuspid valve replacement. During the procedure there was concern for asystole. EP has now been consulted for further evaluation. The patient is still demonstrating complete heart block. Will move forward with implantation of a device. Will need clearance from infectious disease. Echocardiogram completed September 23, 2024 demonstrates a preserved EF at 55%. RVSP elevated at 68 mmHg Tricuspid valve bioprosthetic valve is present with large mobile vegetation on the anterior leafletconsistent with severe stenosis with severe regurgitation Critical finding with endocarditis. Transesophageal echocardiogram completed September 27, 2024 demonstrates normal systolic function Tricuspid valve has large mobile vegetation on the right atrial aspect. Moderate severe regurgitation. Today, the patient is resting upright in bedside chair. He is tired and fatigued. But is doing muchbetter today. He understands the importance of moving forward with pacemaker implant. Once again all risk first benefit was explained. Patient is understanding agreeable. Objective Vitals and Measurements T: 36.7 C (Oral) TMIN: 36.7 C (Oral) TMAX: 36.8 C (Oral) HR: 96 (Monitored) RR: 30 BP: 130/79(Line)SpO2: 98% Physical Exam General - 29 yr old male s/p redo open heart HEENT - head normocephalic, atraumatic. Pupils equal reactive to light. Nose patent bilaterally. Oropharynx without erythema or exudate. Neck -supple, full range of motion. No carotid bruits noted. Cardiovascular - Regular rate and rhythm. No significant murmurs appreciated. Lungs - clear to auscultation bilaterally. Abdomen - soft, nontender. Bowel sounds present in all 4 quadrants. Musculoskeletal -full weightbearing. Full range of motion in all extremities. Skin -intact, no lesions or rashes noted. Neurological - cranial nerves grossly intact. Mood and affect appropriate to situation. Peripheral vascular - No pitting edema Weight Dosing Weight: 55.2 kg (09/22/24) Medications Medications (42) Active Scheduled: (18) aspirin 81 mg EC 81 mg 1 tab(s), Oral, qDayM balsam [place]-castor oil topical 87 mg-788 mg/g UD packet oint 5g 1 kendrick, Topical, BID ceFAZolin syringe 2 gram(s) 20 mL, IV Push (INT), q8h docusate-senna (Senokot S) 50 mg-8.6 mg Tablet 1 tab(s), Oral, BID enoxaparin 40 mg/ 0.4mL syringe 40 mg 0.4 mL, Subcutaneous, qDay furosemide 20 mg/2 mL vial 20 mg 2 mL, IV Push, q8h gentamicin 160 mg 4 mL, IV Piggyback, q24h insulin lispro 100 units/mL Soln (3 mL) Give 0-5 units/dose, Subcutaneous, achs lidocaine 1% (MPF) 2 mL vial pf 30 mg 3 mL, Intradermal, prep pharm menthol-zinc oxide topical ointment 4oz 1 kendrick, Topical, amhs metronidazole 500 mg Tablet 500 mg 1 tab(s), Oral, TID Misc communication order 1 EA, Miscellaneous, Daily mupirocin 2% Ointment 22 Gram(s) tube 1 kendrick, Nostril, each, q12h oxyCODONE 10 mg Tab (Immediate Release) 10 mg 1 tab(s), Oral, q4h pantoprazole 40 mg EC tablet 40 mg 1 tab(s), Oral, qDayAC potassium chloride 20 mEq ER tablet 20 mEq 1 tab(s), Oral, TIDM rifampin 300 mg capsule 300 mg 1 cap(s), Oral, q8h sodium chloride 3% Inhalation Soln 4 mL 75 mg 2.5 mL, Inhalation, q6hRT Continuous: (3) dexmedetomidine 400 mcg [0.2 mcg/kg/hr] + Sodium Chloride 0.9% 96 mL 96 mL, Intravenous, 2.76 mL/hr NS (0.9% nacl) 1,000 mL 1,000 mL, Intravenous, 20 mL/hr NS (0.9% nacl) 500 mL 500 mL, Intravenous, 20 mL/hr PRN: (21) acetaminophen 160 mg/5 mL Suspension 650 mg 20.31 mL, Oral, q6hr acetaminophen 325 mg Tablet 650 mg 2 tab(s), Oral, q4h albumin human 5% 12.5 gram(s) 250 mL, IV Piggyback (MED), AsDirected calcium chloride 1,000 mg 10 mL, IV Piggyback, AsDirected calcium chloride 400 mg 4 mL, IV Piggyback, AsDirected dextrose 50% Solution Disp syringe 50 mL 25 gram(s) 50 mL, IV Push, AsDirected dextrose 50% Solution Disp syringe 50 mL 12.5 g 25 mL, IV Push, AsDirected glucagon recombinant 1 mg 1 mg 1 mL, Intramuscular, AsDirected HYDROmorphone 0.5 mg/0.5 mL syringe 0.5 mg 0.5 mL, IV Push, q1h magnesium sulfate 4g/50mL PMX 4 g 50 mL, IV Piggyback, AsDirected magnesium sulfate PMX 2 g 50 mL, IV Piggyback, AsDirected menthol-zinc oxide topical ointment 4oz 1 kendrick, Topical, BID nitroglycerin 100 mcg/1 mL 10 mL VIAL 100 mcg 1 mL, IV Push, AsDirected ondansetron 2 mg/ 1 mL 2 mL INJ 4 mg 2 mL, IV Push, q4h ondansetron 2 mg/ 1 mL 2 mL INJ 4 mg 2 mL, IV Push, q4h potassium chloride (PMX) 10 mEq 50 mL, IV Piggyback, AsDirected potassium chloride (PMX) 20 mEq 50 mL, IV Piggyback, AsDirected potassium chloride (PMX) 40 mEq 100 mL, IV Piggyback, AsDirected potassium chloride (PMX) 60 mEq 150 mL, IV Piggyback, AsDirected protamine 10 mg/mL (50 mg/5 mL) vial 50 mg 5 mL, IV Push, Once sodium phosphate 13.8 mmol 4.6 mL, IV Piggyback, AsDirected Lab Results 10/04 14:12 Potassium Level: 4.7 10/04 08:01 Potassium Level: 3.9 10/04 03:05 WBC: 15.6 H Hgb: 10.5 L Hct: 32.0 L Platelet: 180 Neutrophil %: 85.2 H Glucose Level: 134 H Sodium Level: 138 Potassium Level: 3.3 L BUN: 23.0 H Creatinine Lvl (s): 0.78 10/03 17:56 Glucose Level: 158 H Sodium Level: 140 Potassium Level: 3.9 BUN: 24.0 H Creatinine Lvl (s): 0.84 10/03 12:28 Potassium Level: 3.3 L 10/03 06:48 Potassium Level: 4.0 EKG No qualifying data available. 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 Patient is still demonstrating underlying complete heart block. Per chart review the patient will continue with IV antibiotics. And reevaluate this weekend. If the patient is stable we will plan for pacemaker implant on Tuesday - October 08, 2024 IV drug abuse Noted. It explained in detail that the patient needs to restrain from IV drug use and remain sober. Digitally Signed by BRENTON MOREL on 10/04/2024 04:11 PM [id number] NoteEvent Display: SP Clin Info Procedure: REDO-RESTERNOTOMY, TRICUSPID VALVE REPLACEMENT USING SIZE 27mm CUELLAR MAGNA EASE MITRALVALVE, INSERTION OF PERMENANT EPICARDIAL PACING WIRES Preoperative diagnosis: REDO STERNOTOMY/VALVE Postoperative diagnosis: REDO STERNOTOMY/VALVE TRACY HAINES MD:VERIFY; Authored Date: [id number] [facility] 06-19-2025 Infectious disease Progress note Date of Service 10/04/2024 Objective Vitals and Measurements T: 36.8 C (Oral) TMIN: 36.1 C (Bladder) TMAX: 36.8 C (Oral) HR: 107 (Monitored) RR: 28 BP: 115/75 BP: 125/72(Line) SpO2: 98% Physical Exam ID CONSULTATION REASON: Tricuspid Endocarditis ANTIBIOTICS Past Antibiotics: Zosyn 3.375g IV Q8h 09/22 09/24 Rifampin 300mg IV Q12h 09/24 - 09/25 Rocephin 2g IV Q24h 09/24 - 09/25 Vanco Dosing IV Q24h 09/22 - 09/25 Daptomycin 700mg IV Q24h 09/25 - 09/27 Nafcillin 2g IV Q4h 09/25 - 09/27 Teflaro 600mg IV Q12h 09/25 - 09/27 Vanco 1g IV x1 PreOP 10/02 Flagyl 500mg IV Q8h 09/30 - 10/04 Rifampin 300mg IV Q12h 10/02 - 10/04 Current Antibiotics: Cefazolin 2g IV Q8h 09/27 - 11/13 Flagyl 500mg PO TID 10/04 - 10/05 Rifampin 300mg PO Q8h 10/04 - Gentamicin 160mg IV Q24h 10/04 - 10/18 Problem List High-grade MSSA bacteremia with sepsis Endocarditis of tricuspid valve, history of tricuspid valve replacement last year IV drug use Septic pulmonary emboli lactic acidosis sepsis TAMIE October 01, 2024 ID Physician Impression: Patient with prosthetic valve endocarditis with MSSA without unequivocal signs of metastatic infection to joints or back but history makes it very difficult to determine the significance of the back pain MSSA PVE is usually treated with cefazolin or nafcillin plus rifampin together with gentamicin for the first 2 to 3 weeks Watch for complications of an large lung abscess or empyema and metastatic infection as well as complications of PVE I would add rifampin and low-dose 3 mg/per kilogram gentamicin but first discuss with critical caremedicine Additionally the patient is such a poor historian I would probably MRI his entire spine to be sure were not missing anything I will leave him on Flagyl for a few more days but I believe his infected molar was removed Probable hepatitis C as well October 02, 2024 ID Physician Impression: As above source control should be achieved with the removal of the infected prosthetic valve and vegetations-presumably the antibiotics had decreased the quantitative amount of bacteria along the prosthetic valve but I would think it is quite unlikely to have sterilized the valve Appears he was clearing the infection with cefazolin alone but I think with the new prosthetic valve in I would prefer to use the multidrug regimen which includes rifampin and low-dose gentamicin--patient's renal function is remaining normal. I will still hold the gentamicin until tomorrow and see if his renal function remains stable postoperatively but I will start rifampin today-review medications for drug drug interactions Drug-Drug Interactions D Propofol RifAMPin C Ketamine RifAMPin (CY Inducers (Strong)) Depends on Route C Ketamine (MOID MIDDLE SCHOOL TEACHER Depressants) Propofol (MOID MIDDLE SCHOOL TEACHER Depressants) C Ondansetron Propofol (QT-prolonging Miscellaneous Agents (Moderate Risk)) Depends on Route C Ondansetron RifAMPin (CY Inducers (Strong)) C Propofol (Bradycardia-Causing Agents) Vasopressin (Bradycardia-Causing Agents) B MetroNIDAZOLE (Systemic) (QT-prolonging Agents (Indeterminate Risk - Caution)) Ondansetron Depends on Route B MetroNIDAZOLE (Systemic) (QT-prolonging Agents (Indeterminate Risk - Caution)) Propofol (QT-prolonging Agents (Moderate Risk)) Variety of QT prolonging interactions. Also rifampin may increase ketamine metabolism especially when given orally but this should be IV given in the ICU the sedation should be able to be titrated I think without problems and the QT monitor Supportive care through cardiovascular surgery October 03, 2024 ID Physician Impression: As above-patient much improved today. Off the ventilator, almost off the sedation, no fever, white blood cell count normalized Blood cultures from September 29 have remained negative after 3 to 4 days looks like clearance is being achieved even prior to source control Added rifampin to his regimen yesterday and would like to add gentamicin and low dose of 3 mg/per kilogram per day-recommend check his urine output over the day And if it becomes better and his creatinine stays normal as it has then possibly started later today or tomorrow. As we dispense with some of the agents that may interact with the rifampin such as propofol and ketamine which are now discontinued the possibility of drug interactions becomes less also I think the ondansetron is only being used occasionally I would prefer the permanent pacemaker be performed on Tuesday but if needed given that he will be 3days postoperative with a source controlled and almost a week since the last positive blood cultures if the pacemaker has to be placed on Tuesday if the temporary pacemaker was placed do not replace with another temporary pacer October 04, 2024 ID Physician Impression: As above Patient continues to improve postoperatively hopefully remove all his devices as soon as possible with the temporary pacer once the permanent pacer is placed which will probably be Tuesday. Given the prosthetic valve endocarditis I think a regimen for 6 weeks of cefazolin or nafcillin andrifampin with low-dose gentamicin (for 2 weeks) is indicated. ICU pharmacy is helping adjust his antibiotics. Watch closely for any aminoglycoside toxicity such as nephrotoxicity (his creatinine is improving) or ototoxicity but I think this is of low likelihoodgiven the patient's age, low dose of aminoglycoside, and only 2-week duration Review of systems performed with [employer]S AUDITOR TAX (Olinda) and ICU pharmacist (Purnima) As below patient with few complaints except for pain meds which she is using frequently. He is on just a very low-dose of Precedex off pressors on 2 L nasal cannula oxygen with good urine output Patient is recovering well postsurgery Chart reviewed, patient examined. Patient appears alert and oriented x3, can be difficult to understand his speech at times, sedated on Precedex, FSC, resting in bed with bedside RN present. No c/o NV, patient with 0 documented BMs in the last 24 hours. Reports loose cough, RR noted to be increasedat rest. Reports feeling cold this morning-blankets adjusted for patient comfort. No new complaintsthis AM, patient is preparing for breakfast. Respirations increased at rest, 98% on NC2L with continuous pulse oximeter in place. Patient has remained afebrile for the last 24 hours. Patient was extubated yesterday, he is not requiring Pressor Support at this time. FOCUSED ASSESSMENT: Infectious Disease Attending: Physical examination as below plan to remove devices as soon as possible CVS: One-to-one AV paced - temporary pacemaker in place LUNGS: Clear diminished bilaterally, increased RR at rest, on NC2L continuous pulse oximeter in place ABDOMEN: Rounded, semifirm, nontender, + bowel sounds, 0 documented BMs in the last 24 hours SKIN: Scattered scarring noted, scattered tattoos noted, midline chest procedure site approximated and NURSING EDUCATION CONSULTANT without drainage nor erythema noted, old chest tube insertion sites/temporary pacer-covered in gauze dressing INCISIONS/DRESSINGS: Temporary Pacer gauze dressing appears clean and intact, right groin dressing appears clean and intact EXTREMITIES: +1-2 BLE/ankle edema noted, +2 generalized edema, generalized weakness LINES/TUBES/DRAINS: Left Chest TL dressing dry & intact, no drainage or erythema at site. JORGE L IV dressing dry & intact, no drainage or erythema at site. Left Brachial-line dressing dry & intact, no drainage or erythema at site. Sullivan with lela/orange urine noted to tubing. Weight Dosing Weight: 55.2 kg (09/22/24) Medications Medications (40) Active Scheduled: (15) aspirin 81 mg EC 81 mg 1 tab(s), Oral, qDayM balsam Mahendra-castor oil topical 87 mg-788 mg/g UD packet oint 5g 1 kendrick, Topical, BID ceFAZolin syringe 2 gram(s) 20 mL, IV Push (INT), q8h furosemide 20 mg/2 mL vial 20 mg 2 mL, IV Push, q8h gentamicin 160 mg 4 mL, IV Piggyback, q24h insulin lispro 100 units/mL Soln (3 mL) Give 0-5 units/dose, Subcutaneous, achs menthol-zinc oxide topical ointment 4oz 1 kendrick, Topical, amhs metronidazole 500 mg Tablet 500 mg 1 tab(s), Oral, TID Misc communication order 1 EA, Miscellaneous, Daily mupirocin 2% Ointment 22 Gram(s) tube 1 kendrick, Nostril, each, q12h oxyCODONE 10 mg Tab (Immediate Release) 10 mg 1 tab(s), Oral, q4h pantoprazole 40 mg VIAL 40 mg, IV Push, qDayAC potassium chloride 20 mEq ER tablet 20 mEq 1 tab(s), Oral, TIDM rifampin 300 mg capsule 300 mg 1 cap(s), Oral, q8h sodium chloride 3% Inhalation Soln 4 mL 75 mg 2.5 mL, Inhalation, q6hRT Continuous: (4) dexmedetomidine 400 mcg [0.2 mcg/kg/hr] + Sodium Chloride 0.9% 96 mL 96 mL, Intravenous, 2.76 mL/hr Dextrose 5% with 0.45% NACL 1,000 mL 1,000 mL, Intravenous, 20 mL/hr NS (0.9% nacl) 1,000 mL 1,000 mL, Intravenous, 20 mL/hr NS (0.9% nacl) 500 mL 500 mL, Intravenous, 20 mL/hr PRN: (21) acetaminophen 160 mg/5 mL Suspension 650 mg 20.31 mL, Oral, q6hr acetaminophen 325 mg Tablet 650 mg 2 tab(s), Oral, q4h albumin human 5% 12.5 gram(s) 250 mL, IV Piggyback (MED), AsDirected calcium chloride 1,000 mg 10 mL, IV Piggyback, AsDirected calcium chloride 400 mg 4 mL, IV Piggyback, AsDirected dextrose 50% Solution Disp syringe 50 mL 25 gram(s) 50 mL, IV Push, AsDirected dextrose 50% Solution Disp syringe 50 mL 12.5 g 25 mL, IV Push, AsDirected glucagon recombinant 1 mg 1 mg 1 mL, Intramuscular, AsDirected HYDROmorphone 0.5 mg/0.5 mL syringe 0.5 mg 0.5 mL, IV Push, q1h magnesium sulfate 4g/50mL PMX 4 g 50 mL, IV Piggyback, AsDirected magnesium sulfate PMX 2 g 50 mL, IV Piggyback, AsDirected menthol-zinc oxide topical ointment 4oz 1 kendrick, Topical, BID nitroglycerin 100 mcg/1 mL 10 mL VIAL 100 mcg 1 mL, IV Push, AsDirected ondansetron 2 mg/ 1 mL 2 mL INJ 4 mg 2 mL, IV Push, q4h ondansetron 2 mg/ 1 mL 2 mL INJ 4 mg 2 mL, IV Push, q4h potassium chloride (PMX) 10 mEq 50 mL, IV Piggyback, AsDirected potassium chloride (PMX) 20 mEq 50 mL, IV Piggyback, AsDirected potassium chloride (PMX) 40 mEq 100 mL, IV Piggyback, AsDirected potassium chloride (PMX) 60 mEq 150 mL, IV Piggyback, AsDirected protamine 10 mg/mL (50 mg/5 mL) vial 50 mg 5 mL, IV Push, Once sodium phosphate 13.8 mmol 4.6 mL, IV Piggyback, AsDirected Lab Results 10/04 03:05 WBC: 15.6 H Hgb: 10.5 L Hct: 32.0 L Platelet: 180 Neutrophil %: 85.2 H Glucose Level: 134 H Sodium Level: 138 Potassium Level: 3.3 L BUN: 23.0 H Creatinine Lvl (s): 0.78 Labs: CPK 716 BC ID PCR, Staphylococcus, Staphylococcus Aureus, Streptococcus detected 09/22/2024 SARS COVID negative Flu A/B negative RSV negative Hepatitis A/B nonreactive Hepatitis C reactive 09/26/2024 HCV PCR not detected HIV 04/19 nonreactive RPR nonreactive SGOT 51, SGPT <7 Total Bili 2 Tricuspid Ring Pathology pending Right Groin Lymph Node Pathology pending CULTURE RESULTS/LOY: 09/22 Blood Cultures -F 04/20 Bottle: Staphylococcus aureus & Staphylococcus aureus #2 05/21 Bottle: Staphylococcus aureus & Staphylococcus aureus #2 & Streptococcus mitis/oralis group 09/23 Blood Cultures 05/20 -F Staphylococcus aureus & Staphylococcus aureus #2 09/24 Blood Cultures -F 04/21 Bottle: Staphylococcus aureus 06/19 Bottle: Staphylococcus aureus & Staphylococcus aureus #2 09/25 Respiratory Culture -F Normal respiratory cathy present at 48 hours 09/26 Blood Cultures 05/20 -F Staphylococcus aureus 09/26 Respiratory Culture -F Normal respiratory cathy present at 48 hours 09/27 Blood Cultures 05/20 -F Staphylococcus aureus 09/29 Blood Cultures 05/20 no growth to date -P 10/02 Church Organist -P No growth to date 10/02 Culture Tissue (tricuspid valve) -P No growth to date 10/02 AFB Culture -P Acid Fast Smear from Concentrated Specimen: Negative 10/02 Fungal Culture -P No fungal elements observed by calcofluor white stain Imaging Results and Diagnostics XR Chest 1 View Result Date: October 04, 2024 Verified By: SHANNA HAYWOOD MD CLINICAL STATEMENT: IMPRESSION: Moderate bilateral effusions with interstitial and alveolar hazinessthroughout the lungs bilaterally. Cavitary region in the right mid lung isredemonstrated, other smaller cavitations aresuspected. XR Chest 1 View Result Date: October 03, 2024 Verified By: SHANNA HAYWOOD MD CLINICAL STATEMENT: IMPRESSION: Suspected cavitary like lesions throughout the lungs bilaterally withadjacent consolidation. CT Maxillofacial w/o Contrast Result Date: September 28, 2024 Verified By: AGATA GABRIEL MD CLINICAL STATEMENT: IMPRESSION: Right periapical molar tooth abscess, with cortical breakthrough on themedial aspect ofthe mandible and associated periostitis which limits theinfection to the bone. No discrete sublingual abscess, the lack of contrastsomewhat limits evaluation. CT Thorax w/o Contrast Result Date: September 28, 2024 Verified By: AGATA GABRIEL MD CLINICAL STATEMENT: IMPRESSION: Increased number and size of numerous bilateral cavitary nodules withworsening consolidative opacities in the bibasilar lungs since the prior CTexam on 09/22/2024. Small right pleural effusion. I have personally reviewed the images of this examination and agree with theresident's findings and interpretation. US Abdomen Limited Result Date: September 27, 2024 Verified By: YAZMIN COSTA MD CLINICAL STATEMENT: IMPRESSION: Starry night appearance of the liver can be seen with acute hepatitis. Gallbladder sludge with gallbladder wall thickening. The gallbladder wallthickening can be seen secondary to hepatitis. Sonographic Kaur signcannot be assessed to evaluate for evidence of acute cholecystitis. Smallamount of ascites. Increased cortical echogenicity of the right kidney suggests medical renaldisease. CT Head or Brain w/o Contrast Result Date: September 23, 2024 Verified By: RONNY RAMIREZ MD CLINICAL STATEMENT: IMPRESSION: No acute intracranial abnormality. 09/23 TTE Summary: 1. Left ventricle: The cavity size is normal. Wall thickness is mildly increased. Systolic functionis normal. The estimated ejection fraction is 55%. Although no diagnostic regional wall motion abnormality is identified, this possibility cannot be completely excluded on the basis of this study. Unable to assess diastolic function. 2. Ventricular septum: Thickness is mildly increased. 3. Right ventricle: The cavity size is moderately increased. Systolic function is mildly reduced. The RV systolic pressure by Doppler is 68 mm Hg. 4. Tricuspid valve: A bioprosthetic valve is present. There is a large, 0.6 cm (W) x 1.6 cm (L), mobile vegetation on the anterior leaflet. The findings are consistent with severe stenosis. MG 14 mm Hg @ HR of 115. There is severe regurgitation. 5. Right atrium: The atrium is severely dilated. The estimated right atrial pressure is 15 mm Hg. 6. Atrial septum: There is a possible patent foramen ovale. Echo contrast study and agitated salinein the baseline state, shows a small [id number] atrial level shunt. Recommendations: 1. TV prosthesis endocarditis. Large vegetation. Incompletely visualized. At least 16 x 6 mm. 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 TS gradient likely overestimates stenosis severity due to concomittant severe TR and HR of 115. 2. Consider YESSENIA for further evaluation of TV prosthetic endocarditis. 09/27/2024 YESSENIA Summary: 1. Left ventricle: The cavity size is normal. Wall thickness is normal. Systolic function is normal. 2. Ventricular septum: There is no evidence of a ventricular septal defect. 3. Aortic valve: There is no evidence of a vegetation. There is trivial regurgitation. 4. Mitral valve: There is no evidence of vegetation. 5. Left atrium: There is no evidence of a thrombus in the atrial cavity or appendage. No spontaneous echo contrast is observed. 6. Pulmonic valve: There is no evidence of a vegetation. 7. Tricuspid valve: There is a large, mobile vegetation on the right atrial aspect of the . There is moderate-severe regurgitation. 8. Right atrium: There is no evidence of a thrombus in the atrial cavity or appendage. 10/02 YESSENIA in [facility] Summary: 1. Left ventricle: The cavity size is normal. There is concentric hypertrophy. Systolic function isnormal by visual assessment. 2. Ventricular septum: There is no evidence of a ventricular septal defect. 3. Tricuspid valve: There is a vegetation. Large mobile vegetations noted on all valve leaflets c/wendocarditis, vs mass, vs thrombus. Clinical correlation necessary, but in context, most likely endocarditis. There is wide-open regurgitation. 4. Right atrium: The atrium is moderately to severely dilated. There is no evidence of a thrombus in the atrial cavity or appendage. 5. Atrial septum: A patent foramen ovale cannot be excluded. Recommendations: This is a limited intra-operative transesophageal echocardiogram, limited in scopeto management of the anesthetic needs of the patient and assistance to the surgeon for operative management. Findings were shared with surgeon in real time. Digitally Signed by Parvin Burns RN on 10/04/2024 10:46 AM Digitally Signed by NONI CONN MD on 10/04/2024 11:09 AM [id number] Note Date of Service October 03, 2024 Shared/Split visit with Dr. Olguin Reason for Consultation [facility] Referring Physician Dr. Messina History of Present Illness This is a 29-year-old male with history of endocarditis status post repair resulting in complete heart block. EP has been consulted for evaluation of permanent pacemaker. Device check today with significant underlying conduction system disease. We will plan for permanent pacemaker once clinically stable. Past medical history is significant for 1. Endocarditis 2. Status post redo sternotomy redo tricuspid valve repair utilizing a 27 CE Magna Ease with permanent epicardial wires completed by Dr. Messina October 02, 2024 3. Asystole/complete heart block 4. Staph aureus bacteremia infectious disease following 5. Septic pulmonary embolism Patient originally presented to [facility] emergency room on September 22, 2024. A CTA demonstratednumerous persistent cavitary pulmonary nodules that were questionable for septic emboli. Patient was then admitted to [facility] and eventually once stable underwent tricuspid valve replacement. During the procedure there was concern for asystole. EP has now been consulted for further evaluation. The patient is still demonstrating complete heart block. Will move forward with implantation of a device. Will need clearance from infectious disease. Echocardiogram completed September 23, 2024 demonstrates a preserved EF at 55%. RVSP elevated at 68 mmHg Tricuspid valve bioprosthetic valve is present with large mobile vegetation on the anterior leafletconsistent with severe stenosis with severe regurgitation Critical finding with endocarditis. Transesophageal echocardiogram completed September 27, 2024 demonstrates normal systolic function Tricuspid valve has large mobile vegetation on the right atrial aspect. Moderate severe regurgitation. Today, the patient is lying in his bed. He does have great concerns about moving forward with pacemaker. and would like to discuss with his mom. All risk first benefit of permanent pacemaker was discussed. Once we have infectious disease clearance we will move forward with device implantation. Review of Systems Limited review of systems. Pertinent positives per HPI all other systems reviewed and negative. Physical Exam Vitals and Measurements T: 36.7 C (Bladder) TMIN: 34.0 C (Bladder) TMAX: 37.1 C (Bladder) HR: 90 (Monitored) RR: 35 BP: 115/75 BP: 109/64(Line) SpO2: 100% Weight Dosing Weight: 55.2 kg (09/22/24) General -29-year-old male status post open heart surgery for tricuspid valve replacement (limited PE) HEENT - head normocephalic, atraumatic. Pupils equal reactive to light. Nose patent bilaterally. Oropharynx without erythema or exudate. Neck -supple, full range of motion. No carotid bruits noted. Cardiovascular -paced rhythm secondary to temporary pacemaker Lungs - clear to auscultation bilaterally. Lab Results 10/03 12:28 Potassium Level: 3.3 L 10/03 06:48 Potassium Level: 4.0 10/03 03:45 WBC: 6.4 Hgb: 7.2 L Hct: 21.6 L Platelet: 51 L Neutrophil %: 78.7 H Glucose Level: 114 H Sodium Level: 143 Potassium Level: 3.6 BUN: 25.0 H Creatinine Lvl (s): 0.92 10/03 01:22 Hgb: 7.1 L Hct: 21.6 L 10/02 21:47 WBC: 6.9 Hgb: 7.1 L Hct: 21.4 L Platelet: 46 L Neutrophil %: 82.3 H 10/02 15:33 WBC: 12.2 H Hgb: 6.4 C Hct: 19.8 L Platelet: 54 L Neutrophil %: 88.4 H Glucose Level: 113 H Sodium Level: 144 Potassium Level: 3.7 BUN: 19.0 Creatinine Lvl (s): 0.93 10/02 12:35 WBC: 17.2 H Hgb: 8.5 L Hct: 26.7 L Platelet: 72 L Neutrophil %: 88.6 H Protime: 18.9 H PT International Ratio: 1.6 Glucose Level: 98 Sodium Level: 145 Potassium Level: 4.0 BUN: 20.0 Creatinine Lvl (s): 0.88 10/02 04:39 WBC: 13.6 H Hgb: 11.3 L Hct: 35.2 L Platelet: 54 L Neutrophil %: 89.8 H Glucose Level: 104 Sodium Level: 139 Potassium Level: 3.0 L BUN: 15.0 Creatinine Lvl (s): 0.77 Assessment/Plan Endocarditis of tricuspid valve s/p Redo sternotomy, redo TVR using #27 CE MagnaEase, insertion of permanent epicardial wires 10/02/2024 Status post repair. Underlying complete heart block/asystole. Patient will require implantation of a dual-chamber/left bundle permanent pacemaker. Will await clearance from infectious disease. All risk first benefit was explained to the patient. However, will need to discuss case with his mother once she presents to the hospital. Once the patient is cleared from the hospital he will require to eat site check in a 90-day follow-up. IV drug abuse Noted. It explained in detail that the patient needs to restrain from IV drug use and remain sober. Problem List/Past Medical History Ongoing Acute blood loss anemia Anemia Asystole Bacteremia Coagulopathy Endocarditis of tricuspid valve IV drug abuse Septic pulmonary embolism Sinus tachycardia Historical History of MRSA infection Procedure/Surgical History Thoracentesis: 05/05/22 Transesophageal echocardiogram: 04/20/22 Echocardiogram: 04/14/22 CT angiography of chest with contrast: 04/13/22 CT angiography of chest with contrast: 12/06/19 Medications Inpatient acetaminophen, 650 mg= 2 tab(s), Oral, q4h, PRN acetaminophen, 650 mg= 20.31 mL, Oral, q6hr, PRN albumin human 5% intravenous solution, 12.5 gram(s)= 250 mL, IV Piggyback (MED), AsDirected, PRN aspirin 81 mg oral delayed release tablet, 81 mg= 1 tab(s), Oral, qDayM Calcium Chloride Calcium Chloride Calmoseptine or equivalent topical ointment, 1 kendrick, Topical, BID, PRN Calmoseptine or equivalent topical ointment, 1 kendrick, Topical, amhs ceFAZolin, 2 gram(s)= 20 mL, IV Push (INT), q8h Communication PHARMACY Order, 1 EA, Miscellaneous, Daily Dexmedetomidine for IV 400 mcg [0.2 mcg/kg/hr] + sodium chloride 0.9% IV solution (T) 96 mL Dextrose, 12.5 gram(s)= 25 mL, IV Push, AsDirected, PRN Dextrose 5% with 0.45% NaCl intravenous solution 1,000 mL, 1000 mL, Intravenous Dextrose 50% IV Push, 25 gram(s)= 50 mL, IV Push, AsDirected, PRN epinephrine for IV 4 mg [2 mcg/min] + sodium chloride 0.9% IV solution (T) 250 mL Flagyl IVPB, 500 mg= 100 mL, IV Piggyback, q8h GlucaGen, 1 mg= 1 mL, Intramuscular, AsDirected, PRN HumaLOG 100 units/mL subcutaneous solution, Give 0-5 units/dose, Subcutaneous, achs HYDROmorphone, 0.5 mg= 0.5 mL, IV Push, q1h, PRN Hypertonic Sodium Chloride 3% (Inhalation), 75 mg= 2.5 mL, Inhalation, q6hRT ketamine for IV 1,000 mg [0.5 mg/kg/hr] + sodium chloride 0.9% IV solution (T) 90 mL magnesium sulfate, 2 gram(s)= 50 mL, IV Piggyback, AsDirected, PRN magnesium sulfate, 4 gram(s)= 50 mL, IV Piggyback, AsDirected, PRN mupirocin 2% topical ointment, 1 kendrick, Nostril, each, q12h Nitroglycerin 100 mcg/mL injection, 100 mcg= 1 mL, IV Push, AsDirected, PRN nitroGLYcerin for IV 50 mg [5 mcg/min] + Dextrose Premix titrate 250 mL nitroprusside for IV 50 mg [0.2 mcg/kg/min] + NS PMX titrate 100 mL Norepinephrine for IV 8 mg [2 mcg/min] + NS PMX titrate 250 mL Ofirmev IVPB, 1000 mg= 100 mL, IV Piggyback, q6hr ondansetron, 4 mg= 2 mL, IV Push, q4h, PRN oxyCODONE 5 mg oral tablet ( IMMEDIATE release ), 5 mg= 1 tab(s), Oral, q4h pantoprazole IV Push, 40 mg, IV Push, qDayAC potassium chloride bolus, 10 mEq= 50 mL, IV Piggyback, AsDirected, PRN potassium chloride bolus, 20 mEq= 50 mL, IV Piggyback, AsDirected, PRN potassium chloride bolus (10/20), 40 mEq= 100 mL, IV Piggyback, AsDirected, PRN potassium chloride bolus (10/20), 60 mEq= 150 mL, IV Piggyback, AsDirected, PRN protamine, 50 mg= 5 mL, IV Push, Once, PRN rifAMPin Sodium Chloride 0.9% intravenous solution 1,000 mL, 1000 mL, Intravenous Sodium Chloride 0.9% intravenous solution 500 mL, 500 mL, Intravenous Sodium Phosphate for IVPB Bolus vasopressin for IV 20 unit(s) [0.01 unit(s)/min] + Dextrose Premix titrate 100 mL Venelex UD packet, 1 kendrick, Topical, BID Zofran, 4 mg= 2 mL, IV Push, q4h, PRN Home Narcan 4 mg/0.1 mL nasal spray, 4 mg= 1 spray(s), Intranasal, AsDirected, PRN Allergies NKA Social History Smoking Status - 12/25/2015 Current every day smoker Alcohol Use: Never., 06/16/2022 Nutrition/Health Caffeine intake amount: 1 serving daily., 06/16/2022 Substance Abuse Use: Past., 06/16/2022 Use: Current. Type: Heroin. Frequency: 1-2 times per week. Previous treatment: None. Started at age: 20 Years. IV drug use; Yes. Has drug use interfered with your work or home life? No. Ready to change: Yes. Concerns about substance abuse in household: No., 12/06/2019 Tobacco Tobacco Use: 10 or more cigarettes (1/2 pack or more)/day in last 30 days., 02/18/2019 Family History Family history is unknown Immunizations hepatitis B pediatric vaccine: 0 unknown unit (05/26/00) Digitally Signed by BRENTON MOREL on 10/03/2024 02:14 PM [id number] Note Date of Service October 03, 2024 Shared/Split visit with Dr. Olguin Reason for Consultation [facility] Referring Physician Dr. Messina History of Present Illness This is a 29-year-old male with history of endocarditis status post repair resulting in complete heart block. EP has been consulted for evaluation of permanent pacemaker. Device check today with significant underlying conduction system disease. We will plan for permanent pacemaker once clinically stable. Past medical history is significant for 1. Endocarditis 2. Status post redo sternotomy redo tricuspid valve repair utilizing a 27 CE Magna Ease with permanent epicardial wires completed by Dr. Messina October 02, 2024 3. Asystole/complete heart block 4. Staph aureus bacteremia infectious disease following 5. Septic pulmonary embolism Patient originally presented to [facility] emergency room on September 22, 2024. A CTA demonstratednumerous persistent cavitary pulmonary nodules that were questionable for septic emboli. Patient was then admitted to [facility] and eventually once stable underwent tricuspid valve replacement. During the procedure there was concern for asystole. EP has now been consulted for further evaluation. The patient is still demonstrating complete heart block. Will move forward with implantation of a device. Will need clearance from infectious disease. Echocardiogram completed September 23, 2024 demonstrates a preserved EF at 55%. RVSP elevated at 68 mmHg Tricuspid valve bioprosthetic valve is present with large mobile vegetation on the anterior leafletconsistent with severe stenosis with severe regurgitation Critical finding with endocarditis. Transesophageal echocardiogram completed September 27, 2024 demonstrates normal systolic function Tricuspid valve has large mobile vegetation on the right atrial aspect. Moderate severe regurgitation. Today, the patient is lying in his bed. He does have great concerns about moving forward with pacemaker. and would like to discuss with his mom. All risk first benefit of permanent pacemaker was discussed. Once we have infectious disease clearance we will move forward with device implantation. Review of Systems Limited review of systems. Pertinent positives per HPI all other systems reviewed and negative. Physical Exam Vitals and Measurements T: 36.7 C (Bladder) TMIN: 34.0 C (Bladder) TMAX: 37.1 C (Bladder) HR: 90 (Monitored) RR: 35 BP: 115/75 BP: 109/64(Line) SpO2: 100% Weight Dosing Weight: 55.2 kg (09/22/24) General -29-year-old male status post open heart surgery for tricuspid valve replacement (limited PE) HEENT - head normocephalic, atraumatic. Pupils equal reactive to light. Nose patent bilaterally. Oropharynx without erythema or exudate. Neck -supple, full range of motion. No carotid bruits noted. Cardiovascular -paced rhythm secondary to temporary pacemaker Lungs - clear to auscultation bilaterally. Lab Results 10/03 12:28 Potassium Level: 3.3 L 10/03 06:48 Potassium Level: 4.0 10/03 03:45 WBC: 6.4 Hgb: 7.2 L Hct: 21.6 L Platelet: 51 L Neutrophil %: 78.7 H Glucose Level: 114 H Sodium Level: 143 Potassium Level: 3.6 BUN: 25.0 H Creatinine Lvl (s): 0.92 10/03 01:22 Hgb: 7.1 L Hct: 21.6 L 10/02 21:47 WBC: 6.9 Hgb: 7.1 L Hct: 21.4 L Platelet: 46 L Neutrophil %: 82.3 H 10/02 15:33 WBC: 12.2 H Hgb: 6.4 C Hct: 19.8 L Platelet: 54 L Neutrophil %: 88.4 H Glucose Level: 113 H Sodium Level: 144 Potassium Level: 3.7 BUN: 19.0 Creatinine Lvl (s): 0.93 10/02 12:35 WBC: 17.2 H Hgb: 8.5 L Hct: 26.7 L Platelet: 72 L Neutrophil %: 88.6 H Protime: 18.9 H PT International Ratio: 1.6 Glucose Level: 98 Sodium Level: 145 Potassium Level: 4.0 BUN: 20.0 Creatinine Lvl (s): 0.88 10/02 04:39 WBC: 13.6 H Hgb: 11.3 L Hct: 35.2 L Platelet: 54 L Neutrophil %: 89.8 H Glucose Level: 104 Sodium Level: 139 Potassium Level: 3.0 L BUN: 15.0 Creatinine Lvl (s): 0.77 Assessment/Plan Endocarditis of tricuspid valve s/p Redo sternotomy, redo TVR using #27 CE MagnaEase, insertion of permanent epicardial wires 10/02/2024 Status post repair. Underlying complete heart block/asystole. Patient will require implantation of a dual-chamber/left bundle permanent pacemaker. Will await clearance from infectious disease. All risk first benefit was explained to the patient. However, will need to discuss case with his mother once she presents to the hospital. Once the patient is cleared from the hospital he will require to eat site check in a 90-day follow-up. IV drug abuse Noted. It explained in detail that the patient needs to restrain from IV drug use and remain sober. Problem List/Past Medical History Ongoing Acute blood loss anemia Anemia Asystole Bacteremia Coagulopathy Endocarditis of tricuspid valve IV drug abuse Septic pulmonary embolism Sinus tachycardia Historical History of MRSA infection Procedure/Surgical History Thoracentesis: 05/05/22 Transesophageal echocardiogram: 04/20/22 Echocardiogram: 04/14/22 CT angiography of chest with contrast: 04/13/22 CT angiography of chest with contrast: 12/06/19 Medications Inpatient acetaminophen, 650 mg= 2 tab(s), Oral, q4h, PRN acetaminophen, 650 mg= 20.31 mL, Oral, q6hr, PRN albumin human 5% intravenous solution, 12.5 gram(s)= 250 mL, IV Piggyback (MED), AsDirected, PRN aspirin 81 mg oral delayed release tablet, 81 mg= 1 tab(s), Oral, qDayM Calcium Chloride Calcium Chloride Calmoseptine or equivalent topical ointment, 1 kendrick, Topical, BID, PRN Calmoseptine or equivalent topical ointment, 1 kendrick, Topical, amhs ceFAZolin, 2 gram(s)= 20 mL, IV Push (INT), q8h Communication PHARMACY Order, 1 EA, Miscellaneous, Daily Dexmedetomidine for IV 400 mcg [0.2 mcg/kg/hr] + sodium chloride 0.9% IV solution (T) 96 mL Dextrose, 12.5 gram(s)= 25 mL, IV Push, AsDirected, PRN Dextrose 5% with 0.45% NaCl intravenous solution 1,000 mL, 1000 mL, Intravenous Dextrose 50% IV Push, 25 gram(s)= 50 mL, IV Push, AsDirected, PRN epinephrine for IV 4 mg [2 mcg/min] + sodium chloride 0.9% IV solution (T) 250 mL Flagyl IVPB, 500 mg= 100 mL, IV Piggyback, q8h GlucaGen, 1 mg= 1 mL, Intramuscular, AsDirected, PRN HumaLOG 100 units/mL subcutaneous solution, Give 0-5 units/dose, Subcutaneous, achs HYDROmorphone, 0.5 mg= 0.5 mL, IV Push, q1h, PRN Hypertonic Sodium Chloride 3% (Inhalation), 75 mg= 2.5 mL, Inhalation, q6hRT ketamine for IV 1,000 mg [0.5 mg/kg/hr] + sodium chloride 0.9% IV solution (T) 90 mL magnesium sulfate, 2 gram(s)= 50 mL, IV Piggyback, AsDirected, PRN magnesium sulfate, 4 gram(s)= 50 mL, IV Piggyback, AsDirected, PRN mupirocin 2% topical ointment, 1 kendrick, Nostril, each, q12h Nitroglycerin 100 mcg/mL injection, 100 mcg= 1 mL, IV Push, AsDirected, PRN nitroGLYcerin for IV 50 mg [5 mcg/min] + Dextrose Premix titrate 250 mL nitroprusside for IV 50 mg [0.2 mcg/kg/min] + NS PMX titrate 100 mL Norepinephrine for IV 8 mg [2 mcg/min] + NS PMX titrate 250 mL Ofirmev IVPB, 1000 mg= 100 mL, IV Piggyback, q6hr ondansetron, 4 mg= 2 mL, IV Push, q4h, PRN oxyCODONE 5 mg oral tablet ( IMMEDIATE release ), 5 mg= 1 tab(s), Oral, q4h pantoprazole IV Push, 40 mg, IV Push, qDayAC potassium chloride bolus, 10 mEq= 50 mL, IV Piggyback, AsDirected, PRN potassium chloride bolus, 20 mEq= 50 mL, IV Piggyback, AsDirected, PRN potassium chloride bolus (10/20), 40 mEq= 100 mL, IV Piggyback, AsDirected, PRN potassium chloride bolus (10/20), 60 mEq= 150 mL, IV Piggyback, AsDirected, PRN protamine, 50 mg= 5 mL, IV Push, Once, PRN rifAMPin Sodium Chloride 0.9% intravenous solution 1,000 mL, 1000 mL, Intravenous Sodium Chloride 0.9% intravenous solution 500 mL, 500 mL, Intravenous Sodium Phosphate for IVPB Bolus vasopressin for IV 20 unit(s) [0.01 unit(s)/min] + Dextrose Premix titrate 100 mL Venelex UD packet, 1 kendrick, Topical, BID Zofran, 4 mg= 2 mL, IV Push, q4h, PRN Home Narcan 4 mg/0.1 mL nasal spray, 4 mg= 1 spray(s), Intranasal, AsDirected, PRN Allergies NKA Social History Smoking Status - 12/25/2015 Current every day smoker Alcohol Use: Never., 06/16/2022 Nutrition/Health Caffeine intake amount: 1 serving daily., 06/16/2022 Substance Abuse Use: Past., 06/16/2022 Use: Current. Type: Heroin. Frequency: 1-2 times per week. Previous treatment: None. Started at age: 20 Years. IV drug use; Yes. Has drug use interfered with your work or home life? No. Ready to change: Yes. Concerns about substance abuse in household: No., 12/06/2019 Tobacco Tobacco Use: 10 or more cigarettes (1/2 pack or more)/day in last 30 days., 02/18/2019 Family History Family history is unknown Immunizations hepatitis B pediatric vaccine: 0 unknown unit (05/26/00) Digitally Signed by BRENTON MOREL on 10/03/2024 02:14 PM [id number] Infectious disease Progress note Date of Service 10/03/2024 Objective Vitals and Measurements T: 37.1 C (Bladder) TMIN: 34.0 C (Bladder) TMAX: 38.37 C (Bladder) HR: 90 (Monitored) RR: 42 BP: 101/67 BP: 104/65(Line) SpO2: 100% Physical Exam ID CONSULTATION REASON: Tricuspid Endocarditis ANTIBIOTICS Past Antibiotics: Zosyn 3.375g IV Q8h 09/22 09/24 Rifampin 300mg IV Q12h 09/24 - 09/25 Rocephin 2g IV Q24h 09/24 - 09/25 Vanco Dosing IV Q24h 09/22 - 09/25 Daptomycin 700mg IV Q24h 09/25 - 09/27 Nafcillin 2g IV Q4h 09/25 - 09/27 Teflaro 600mg IV Q12h 09/25 - 09/27 Vanco 1g IV x1 PreOP 10/02 Current Antibiotics: Cefazolin 2g IV Q8h 09/27 - present Flagyl 500mg IV Q8h 09/30 - present Rifampin 300mg IV Q12h 10/02 - present Problem List High-grade MSSA bacteremia with sepsis Endocarditis of tricuspid valve, history of tricuspid valve replacement last year IV drug use Septic pulmonary emboli lactic acidosis sepsis TAMIE October 01, 2024 ID Physician Impression: Patient with prosthetic valve endocarditis with MSSA without unequivocal signs of metastatic infection to joints or back but history makes it very difficult to determine the significance of the back pain MSSA PVE is usually treated with cefazolin or nafcillin plus rifampin together with gentamicin for the first 2 to 3 weeks Watch for complications of an large lung abscess or empyema and metastatic infection as well as complications of PVE I would add rifampin and low-dose 3 mg/per kilogram gentamicin but first discuss with critical caremedicine Additionally the patient is such a poor historian I would probably MRI his entire spine to be sure were not missing anything I will leave him on Flagyl for a few more days but I believe his infected molar was removed Probable hepatitis C as well October 02, 2024 ID Physician Impression: As above source control should be achieved with the removal of the infected prosthetic valve and vegetations-presumably the antibiotics had decreased the quantitative amount of bacteria along the prosthetic valve but I would think it is quite unlikely to have sterilized the valve Appears he was clearing the infection with cefazolin alone but I think with the new prosthetic valve in I would prefer to use the multidrug regimen which includes rifampin and low-dose gentamicin--patient's renal function is remaining normal. I will still hold the gentamicin until tomorrow and see if his renal function remains stable postoperatively but I will start rifampin today-review medications for drug drug interactions Drug-Drug Interactions D Propofol RifAMPin C Ketamine RifAMPin (CY Inducers (Strong)) Depends on Route C Ketamine (MOID [employer]ER Depressants) Propofol (MOID [employer] TE[employer]ER Depressants) C Ondansetron Propofol (QT-prolonging Miscellaneous Agents (Moderate Risk)) Depends on Route C Ondansetron RifAMPin (CY Inducers (Strong)) C Propofol (Bradycardia-Causing Agents) Vasopressin (Bradycardia-Causing Agents) B MetroNIDAZOLE (Systemic) (QT-prolonging Agents (Indeterminate Risk - Caution)) Ondansetron Depends on Route B MetroNIDAZOLE (Systemic) (QT-prolonging Agents (Indeterminate Risk - Caution)) Propofol (QT-prolonging Agents (Moderate Risk)) Variety of QT prolonging interactions. Also rifampin may increase ketamine metabolism especially when given orally but this should be IV given in the ICU the sedation should be able to be titrated I think without problems and the QT monitor Supportive care through cardiovascular surgery October 03, 2024 ID Physician Impression: As above-patient much improved today. Off the ventilator, almost off the sedation, no fever, white blood cell count normalized Blood cultures from September 29 have remained negative after 3 to 4 days looks like clearance is being achieved even prior to source control Added rifampin to his regimen yesterday and would like to add gentamicin and low dose of 3 mg/per kilogram per day-recommend check his urine output over the day And if it becomes better and his creatinine stays normal as it has then possibly started later today or tomorrow. As we dispense with some of the agents that may interact with the rifampin such as propofol and ketamine which are now discontinued the possibility of drug interactions becomes less also I think the ondansetron is only being used occasionally I would prefer the permanent pacemaker be performed on Tuesday but if needed given that he will be 3days postoperative with a source controlled and almost a week since the last positive blood cultures if the pacemaker has to be placed on Tuesday if the temporary pacemaker was placed do not replace with another temporary pacer Extensive review of systems done with CVS AUDITOR TAX (Yoon) Low-dose of Precedex but the patient is awake and responsive Very low-dose of vasopressin 0.01 On high flow oxygen but off ventilator coughing up some yellow blood-kevin with brownish sputum Swallow eval pending No further bleeding No rashes No swollen joints Slight irritation on his backside Left triple-lumen catheter and temporary pacer-patient appears fully pacer dependent Urine output is marginal to receive diuretics later and packed red blood cell transfusion I believe Chart reviewed, patient examined. Patient is arousable with stimulation, appears to [facility] for Respiratory Therapy adjusting ETT, sedated on Ketamine and Precedex although appears to become rather restless with stimulation, resting in bed on ETT to Vent. Vent Settings: PSV 14, PEEP 5, FiO2 40% with saturation of 100% on continuous pulse oximeter in place. Respirations are increased with stimulation with Vent. Patient with 0 documented BMs in the last 24 hours. Tmax of 38.37 bladder temperature in the last 24 hours. Vasopressin @0.02unit/minute FOCUSED ASSESSMENT: CVS: One-to-one AV paced -asystole under temporary pacemaker in place LUNGS: Crackles bilaterally, ETT to Vent on PSV, increased RR with stimulation, continuous pulse oximeter in place ABDOMEN: Rounded, semifirm, hypoactive bowel sounds, OG in place, 0 documented BMs in the last 24 hours SKIN: Scattered scarring noted, scattered tattoos noted, midline chest procedure site-covered in dressing, chest tube insertion sites-covered in gauze dressing INCISIONS/DRESSINGS: Midline chest dressing appears clean and intact, Chest Tube gauze dressing appears clean and intact EXTREMITIES: +1-2 BLE/ankle edema noted LINES/TUBES/DRAINS: Left Chest TL dressing dry & intact, no drainage or erythema at site. JORGE L IV dressing dry & intact, no drainage or erythema at site. Left Brachial-line dressing dry & intact, no drainage or erythema at site. Sullivan with darker yellow/lela urine noted to tubing. ChestTubes with red output noted to tubing. OG to LIS with bile noted to tubing. Weight Dosing Weight: 55.2 kg (09/22/24) Medications Medications (48) Active Scheduled: (15) acetaminophen PMX 1,000 mg 100 mL, IV Piggyback, q6hr aspirin 81 mg EC 81 mg 1 tab(s), Oral, qDayM calcium chloride 1,000 mg 10 mL, IV Piggyback, Once ceFAZolin syringe 2 gram(s) 20 mL, IV Push (INT), q8h chlorhexidine topical 0.12% Liquid (60 mL) 15 mL, Swish & Spit, QID enoxaparin 40 mg/ 0.4mL syringe 40 mg 0.4 mL, Subcutaneous, qDay furosemide 20 mg/2 mL vial 20 mg 2 mL, IV Push, Once metronidazole PMX 500 mg 100 mL, IV Piggyback, q8h [facility] communication order 1 EA, Miscellaneous, Daily mupirocin 2% Ointment 22 Gram(s) tube 1 kendrick, Nostril, each, q12h ocular lubricant - Ointment 3.5 gram(s) 1 kendrick, Eyes, both, q8h ocular lubricant preserved Soln 15 mL 1 drop(s), Eyes, both, q8h pantoprazole 40 mg VIAL 40 mg, IV Push, qDayAC rifampin 300 mg, IV Piggyback, q12h sodium chloride 3% Inhalation Soln 4 mL 75 mg 2.5 mL, Inhalation, q6hRT Continuous: (13) dexmedetomidine 400 mcg [0.2 mcg/kg/hr] + Sodium Chloride 0.9% 96 mL 96 mL, Intravenous, 2.76 mL/hr Dextrose 5% with 0.45% NACL 1,000 mL 1,000 mL, Intravenous, 20 mL/hr epinephrine 4 mg [2 mcg/min] + Sodium Chloride 0.9% 250 mL 250 mL, Intravenous, 7.5 mL/hr insulin regular 100 unit(s) + NS Premix Diluent 100 mL 100 mL, Intravenous ketamine 1,000 mg [0.5 mg/kg/hr] + Sodium Chloride 0.9% 90 mL 90 mL, Intravenous, 2.76 mL/hr nitroglycerin 50 mg/250 mL D5W 50 mg [5 mcg/min] + Dextrose 5% Premix Diluent 250 mL 250 mL, Intravenous, 1.5 mL/hr nitroprusside 50 mg [0.2 mcg/kg/min] + NS Premix Diluent 100 mL 100 mL, Intravenous, 1.32 mL/hr norepinephrine 8 mg [2 mcg/min] + NS Premix Diluent 250 mL 250 mL, Intravenous, 3.75 mL/hr NS (0.9% nacl) 1,000 mL 1,000 mL, Intravenous, 20 mL/hr NS (0.9% nacl) 500 mL 500 mL, Intravenous, 20 mL/hr propofol 1,000 mg [10 mcg/kg/min] + IV Premix Diluent 100 mL 100 mL, Intravenous, 3.31 mL/hr Sodium Chloride 0.9% 250 mL 250 mL, Intravenous, 20 mL/hr vasopressin 20 unit(s) [0.01 unit(s)/min] + Dextrose 5% Premix Diluent 100 mL 100 mL, Intravenous, 3 mL/hr PRN: (20) albumin human 5% 12.5 gram(s) 250 mL, IV Piggyback (MED), AsDirected calcium chloride 1,000 mg 10 mL, IV Piggyback, AsDirected calcium chloride 400 mg 4 mL, IV Piggyback, AsDirected dextrose 50% Solution Disp syringe 50 mL 25 gram(s) 50 mL, IV Push, AsDirected dextrose 50% Solution Disp syringe 50 mL 25 g 50 mL, IV Push, AsDirected fentaNYL 50 mcg/mL (1mL) Soln 50 mcg 1 mL, IV Push, q15min insulin regular human recombinant 100 units/ml (10 mL) Solution 10 unit(s) 0.1 mL, IV Push, q1h magnesium sulfate 4g/50mL PMX 4 g 50 mL, IV Piggyback, AsDirected magnesium sulfate PMX 2 g 50 mL, IV Piggyback, AsDirected nitroglycerin 100 mcg/1 mL 10 mL VIAL 100 mcg 1 mL, IV Push, AsDirected ocular lubricant - Ointment 3.5 gram(s) 1 kendrick, Eyes, both, AsDirected ocular lubricant preserved Soln 15 mL 1 drop(s), Eyes, both, AsDirected ondansetron 2 mg/ 1 mL 2 mL INJ 4 mg 2 mL, IV Push, q4h ondansetron 2 mg/ 1 mL 2 mL INJ 4 mg 2 mL, IV Push, q4h potassium chloride (PMX) 10 mEq 50 mL, IV Piggyback, AsDirected potassium chloride (PMX) 20 mEq 50 mL, IV Piggyback, AsDirected potassium chloride (PMX) 40 mEq 100 mL, IV Piggyback, AsDirected potassium chloride (PMX) 60 mEq 150 mL, IV Piggyback, AsDirected protamine 10 mg/mL (50 mg/5 mL) vial 50 mg 5 mL, IV Push, Once sodium phosphate 13.8 mmol 4.6 mL, IV Piggyback, AsDirected Lab Results 10/03 06:48 Potassium Level: 4.0 10/03 03:45 WBC: 6.4 Hgb: 7.2 L Hct: 21.6 L Platelet: 51 L Neutrophil %: 78.7 H Glucose Level: 114 H Sodium Level: 143 Potassium Level: 3.6 BUN: 25.0 H Creatinine Lvl (s): 0.92 10/03 01:22 Hgb: 7.1 L Hct: 21.6 L Labs: CPK 716 BC ID PCR, Staphylococcus, Staphylococcus Aureus, Streptococcus detected 09/22/2024 SARS COVID negative Flu A/B negative RSV negative Hepatitis A/B nonreactive Hepatitis C reactive 09/26/2024 HCV PCR not detected HIV 1/2 nonreactive RPR nonreactive SGOT 64, SGPT 11 Total Bili 2.6 Tricuspid Ring Pathology pending Right Groin Lymph Node Pathology pending CULTURE RESULTS/LOY: 09/22 Blood Cultures -F 04/20 Bottle: Staphylococcus aureus & Staphylococcus aureus #2 05/21 Bottle: Staphylococcus aureus & Staphylococcus aureus #2 & Streptococcus mitis/oralis group 09/23 Blood Cultures 05/20 -F Staphylococcus aureus & Staphylococcus aureus #2 09/24 Blood Cultures -F 04/21 Bottle: Staphylococcus aureus 06/19 Bottle: Staphylococcus aureus & Staphylococcus aureus #2 09/25 Respiratory Culture -F Normal respiratory cathy present at 48 hours 09/26 Blood Cultures 2/2 -F Staphylococcus aureus 09/26 Respiratory Culture -F Normal respiratory cathy present at 48 hours 09/27 Blood Cultures / -F Staphylococcus aureus 09/29 Blood Cultures 05/20 no growth to date -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 CT Maxillofacial w/o Contrast Result Date: September 28, 2024 Verified By: AGATA GABRIEL MD CLINICAL STATEMENT: IMPRESSION: Right periapical molar tooth abscess, with cortical breakthrough on themedial aspect ofthe mandible and associated periostitis which limits theinfection to the bone. No discrete sublingual abscess, the lack of contrastsomewhat limits evaluation. CT Thorax w/o Contrast Result Date: September 28, 2024 Verified By: AGATA GABRIEL MD CLINICAL STATEMENT: IMPRESSION: Increased number and size of numerous bilateral cavitary nodules withworsening consolidative opacities in the bibasilar lungs since the prior CTexam on 09/22/2024. Small right pleural effusion. I have personally reviewed the images of this examination and agree with theresident's findings and interpretation.. US Abdomen Limited Result Date: September 27, 2024 Verified By: YAZMIN COSTA MD CLINICAL STATEMENT: IMPRESSION: Starry night appearance of the liver can be seen with acute hepatitis. Gallbladder sludge with gallbladder wall thickening. The gallbladder wallthickening can be seen secondary to hepatitis. Sonographic Kaur signcannot be assessed to evaluate for evidence of acute cholecystitis. Smallamount of ascites. Increased cortical echogenicity of the right kidney suggests medical renaldisease. CT Head or Brain w/o Contrast Result Date: September 23, 2024 Verified By: RONNY RAMIREZ MD CLINICAL STATEMENT: IMPRESSION: No acute intracranial abnormality. 09/23 TTE Summary: 1. Left ventricle: The cavity size is normal. Wall thickness is mildly increased. Systolic functionis normal. The estimated ejection fraction is 55%. Although no diagnostic regional wall motion abnormality is identified, this possibility cannot be completely excluded on the basis of this study. Unable to assess diastolic function. 2. Ventricular septum: Thickness is mildly increased. 3. Right ventricle: The cavity size is moderately increased. Systolic function is mildly reduced. The RV systolic pressure by Doppler is 68 mm Hg. 4. Tricuspid valve: A bioprosthetic valve is present. There is a large, 0.6 cm (W) x 1.6 cm (L), mobile vegetation on the anterior leaflet. The findings are consistent with severe stenosis. MG 14 mm Hg @ HR of 115. There is severe regurgitation. 5. Right atrium: The atrium is severely dilated. The estimated right atrial pressure is 15 mm Hg. 6. Atrial septum: There is a possible patent foramen ovale. Echo contrast study and agitated salinein the baseline state, shows a small [id number] atrial level shunt. Recommendations: 1. TV prosthesis endocarditis. Large vegetation. Incompletely visualized. At least 16 x 6 mm. 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 TS gradient likely overestimates stenosis severity due to concomittant severe TR and HR of 115. 2. Consider YESSENIA for further evaluation of TV prosthetic endocarditis. 09/27/2024 YESSENIA Summary: 1. Left ventricle: The cavity size is normal. Wall thickness is normal. Systolic function is normal. 2. Ventricular septum: There is no evidence of a ventricular septal defect. 3. Aortic valve: There is no evidence of a vegetation. There is trivial regurgitation. 4. Mitral valve: There is no evidence of vegetation. 5. Left atrium: There is no evidence of a thrombus in the atrial cavity or appendage. No spontaneous echo contrast is observed. 6. Pulmonic valve: There is no evidence of a vegetation. 7. Tricuspid valve: There is a large, mobile vegetation on the right atrial aspect of the . There is moderate-severe regurgitation. 8. Right atrium: There is no evidence of a thrombus in the atrial cavity or appendage. 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 in 2023, hepatitis C, thrombocytopenia, tobacco use. Patient presented to [place] ED with febrile illness, dyspnea and chest pain on 09/22. He was transferred to [place] and subsequently intubated for acute hypoxemic respiratory failure in setting of septic shock, recurrent endocarditis and bacteremia (strep, staph aureus). Patient was treated for septic shock and TAMIE in MICU. Extubated 09/29. Presents to ICU today s/p redo sternotomy for redo tricuspid valve replacement with Dr. Messina. Arrives intubated andsedated. Received plt, DDAVP, k-centra, cell-saver intra-op. Arrives on no vasoactive gtts. Review of Systems: Patient unable to participate in ROS due to sedation and intubation. Allergies: ALLERGIES Past Medical History: History of MRSA infection: 10/01/24 Past Surgical History: Thoracentesis: 05/05/22 Transesophageal echocardiogram: 04/20/22 Echocardiogram: 04/14/22 CT angiography of chest with contrast: 04/13/22 CT angiography of chest with contrast: 12/06/19 Social History: Alcohol Details: Use: Never. Nutrition/Health Details: Caffeine intake amount: 1 serving daily. Substance Abuse Details: Use: Past.; Comment(s): Currently not doing Heroin Details: Use: Current. Type: Heroin. Frequency: 1-2 times per week. Previous treatment: None. Started at age: 20 Years. IV drug use; Yes. Has drug use interfered with your work or home life? No. Ready to change: Yes. Concerns about substance abuse in household: No. Tobacco Details: Tobacco Use: 10 or more cigarettes (1/2 pack or more)/day in last 30 days. Family History: No family history recorded. Medications: naloxone: 4 mg = 1 spray(s), Intranasal, AsDirected, PRN (see pharmacy notes), may repeat every 2 to 3 minutes until patient responds Objective: Vitals Signs(Last 24 hrs)__ Last Charted Minimum Maximum Temp 36.7(OCT 02 19:33) 36.7(OCT 02 19:33) H 38.6(OCT 02 06:58) Heart Rate 90(OCT 02 19:33) 0(OCT 02 08:05) H 124(OCT 01 20:21) SBP 102(OCT 02 19:33) L 74(OCT 02 15:26) H 150(OCT 02 07:15) DBP 64(OCT 02 19:33) C 36(OCT 02 15:26) 108(OCT 02 07:15) Intake and Output (Last 24 hours) Intake Autotransfusion Amt 675.00 Red Blood Cells Amount Transfused 1059.00 Platelets Amount Transfused 1898.00 Administration Information 1170.61 Oral Intake 0.00 Supplement Intake 0.00 Output Chest Tube Output: 700.00 Urine Voided 750.00 Urinary Catheter Output: 575.00 Negative CPB 600.00 Intra-Op Urine Catheter 400.00 Intra-Op EBL 600.00 Stool Count 1.00 Total Summary Total Intake 4802.61 Total Output 3625.00 Fluid Balance 1177.61 PHYSICAL EXAM: GENERAL: Male intubated and sedated. SKIN: warm and dry. No rashes noted. Midsternal surgical site bandaged without evidence of acute bleeding. HEENT: PERRL. Mucous membranes moist. HEART: S1/S2 regular rate and rhythm. No murmurs, gallops, or clicks. Chest tubes in place, on suction and draining _. LUNGS: Intubated, clear to auscultation bilaterally, no use of accessory muscles, no wheezes or rhonchi. ABDOMEN: Soft, non-distended. Bowel sounds present. GENITOURINARY: Sullivan present. Draining _. MUSCULOSKELETAL: Spontaneously moves all extremities x 4. VASCULAR: Bilateral pedal pulses are palpable +2. No edema. Labs: 36hr Labs 10/02 1725 Cryo Product Re See Flowsheet 10/02 1656 Platelet Produc See Flowsheet 10/02 1610 RBC Product Hot [place] See Flowsheet 10/02 1533 CO2 Totl 25.1 pH 7.427 Base Excess -0.3 pCO2 37.2 O2 Sat 99.1 H pO2 167.2 H HCO3 24.0 Creatinine Lvl (s) 0.93 CO2 24 Chloride 108 Calcium Lvl 7.3 L Electrolyte Balance 12.0 Glucose Level 113 H BUN/Creatinine Ratio 20.4 Estimated Glomerular Filtrat 114 Sodium Level 144 BUN 19.0 Potassium Level 3.7 K TEG 3.2 H Angle TEG 51.2 L R TEG 7.2 MA Max Clot TEG 48.8 L LY30 Lysis TEG See Flowsheet Monocyte % 5.0 Eosinophil, Absolute 0.0 Hgb 6.4 C RDW 20.2 H Eosinophil % 0.0 Basophil, Absolute 0.0 Hct 19.8 L Platelet 54 L Neutrophil, Absolute 10.8 H Basophil % 0.1 MCV 83.3 Neutrophil % 88.4 H MPV 8.4 Lymphocyte, Absolute 0.8 L WBC 12.2 H MCH 27.0 Lymphocyte % 6.5 L Monocyte, Absolute 0.6 RBC 2.37 L MCHC 32.3 10/02 1530 Blood Glucose, Capillary 113 H Blood Glucose, Capillary 113 H 10/02 1420 Blood Glucose, Capillary 107 Blood Glucose, Capillary 107 10/02 1413 CO2 Totl 22.7 pH 7.414 Base Excess -2.5 pCO2 34.6 O2 Sat 99.4 H pO2 190.7 H HCO3 21.6 10/02 1320 Blood Glucose, Capillary 106 Blood Glucose, Capillary 106 10/02 1235 HCO3 24.6 CO2 Totl 25.9 pH 7.382 Base Excess -0.5 pCO2 42.4 O2 Sat 99.4 H pO2 318.1 H BUN/Creatinine Ratio 22.7 H Glucose Level 98 BUN 20.0 Sodium Level 145 Creatinine Lvl (s) 0.88 Magnesium Lvl 1.8 Potassium Level 4.0 Calcium Lvl 7.3 L Calcium Ionized 1.03 L Chloride 107 Estimated Glomerular Filtrat 119 Electrolyte Balance 14.0 Phosphorus 6.4 H CO2 24 APTT 37.6 H Protime 18.9 H Fibrinogen 261 PT International Ratio 1.6 Monocyte % 4.4 Eosinophil, Absolute 0.0 WBC 17.2 H MCH 27.1 RDW 19.3 H Eosinophil % 0.1 Basophil, Absolute 0.0 RBC 3.14 L Platelet 72 L Basophil % 0.2 Hgb 8.5 L Neutrophil % 88.6 H MPV 8.3 Lymphocyte, Absolute 1.1 Neutrophil, Absolute 15.2 H Hct 26.7 L Lymphocyte % 6.7 L Monocyte, Absolute 0.8 MCV 85.1 MCHC 31.9 L 10/02 1220 Blood Glucose, Capillary 89 Blood Glucose, Capillary 89 Blood Glucose T See Flowsheet 10/02 1132 Platelet Produc See Flowsheet 10/02 1131 Total CO2 - POC 22.6 Chloride - POC 109 pH (poct) - POC 7.311 L Base Excess - POC -4.7 PCO2 - POC 43.1 Hematocrit (POC) 25.0 L O2 Saturation - POC 99.7 H Glucose - POC 94 PO2 - POC 441.2 H Hemoglobin (POC) 8.5 L Sodium - POC 138 Bicarbonate - POC 21.3 Ionized Calcium - POC 1.10 L Potassium - POC 3.3 L 10/02 1054 Potassium - POC 3.6 Hematocrit (POC) 19.0 L Glucose - POC 122 H Total CO2 - POC 24.3 Chloride - POC 108 Ionized Calcium - POC 0.98 L pH (poct) - POC 7.325 L Base Excess - POC -2.9 PCO2 - POC 45.0 Sodium - POC 137 Hemoglobin (POC) 6.5 C PO2 - POC 377.2 H O2 Saturation - POC 99.6 H Bicarbonate - POC 22.9 10/02 1042 Platelet Produc See Flowsheet 10/02 1041 Total CO2 - POC 23.9 Sodium - POC 137 pH (poct) - POC 7.320 L Base Excess - POC -3.3 Potassium - POC 3.8 PCO2 - POC 44.7 Chloride - POC 107 O2 Saturation - POC 99.6 H PO2 - POC 494.7 H Hematocrit (POC) 20.0 L Bicarbonate - POC 22.5 Hemoglobin (POC) 6.7 C Glucose - POC 117 H Ionized Calcium - POC 0.99 L 10/02 1020 Bicarbonate - POC 22.6 Sodium - POC 137 Hemoglobin (POC) 6.8 C Glucose - POC 102 Total CO2 - POC 23.7 Potassium - POC 3.7 pH (poct) - POC 7.396 Ionized Calcium - POC 0.93 L Base Excess - POC -2.1 Chloride - POC 109 PCO2 - POC 37.6 Hematocrit (POC) 20.0 L O2 Saturation - POC 99.7 H PO2 - POC 507.3 H 10/02 1000 Culture Tissue See Flowsheet 10/02 0947 Bicarbonate - POC 23.0 Hemoglobin (POC) 7.3 L Potassium - POC 3.1 L pH (poct) - POC 7.465 H Sodium - POC 137 Chloride - POC 106 PCO2 - POC 32.7 Total CO2 - POC 24.0 Ionized Calcium - POC 0.96 L Base Excess - POC -0.6 Glucose - POC 98 Hematocrit (POC) 21.0 L PO2 - POC 524.6 H O2 Saturation - POC 99.7 H 10/02 0923 pH (poct) - POC 7.399 Base Excess - POC -1.6 Hematocrit (POC) 23.0 L PCO2 - POC 38.2 Chloride - POC 105 O2 Saturation - POC 99.7 H Glucose - POC 99 PO2 - POC 511.0 H Bicarbonate - POC 23.1 Hemoglobin (POC) 7.7 L Sodium - POC 138 Potassium - POC 3.0 L Total CO2 - POC 24.3 Ionized Calcium - POC 0.97 L 10/02 0849 pH (poct) - POC 7.259 L Ionized Calcium - POC 1.03 L Potassium - POC 3.4 L Bicarbonate - POC 22.2 Glucose - POC 104 PCO2 - POC 50.8 H Total CO2 - POC 23.8 Hemoglobin (POC) 10.6 L PO2 - POC 87.7 Base Excess - POC -4.9 Hematocrit (POC) 31.0 L Sodium - POC 138 O2 Saturation - POC 94.3 Chloride - POC 107 10/02 0813 O2 Saturation - POC 92.8 Sodium - POC 138 PO2 - POC 80.4 Glucose - POC 111 H Bicarbonate - POC 20.7 L Chloride - POC 106 Potassium - POC 3.4 L Ionized Calcium - POC 1.04 L Total CO2 - POC 22.1 pH (poct) - POC 7.265 L Hematocrit (POC) 32.0 L Base Excess - POC -6.2 Hemoglobin (POC) 10.8 L PCO2 - POC 46.6 H 10/02 0725 RBC Product Rox See Flowsheet 10/02 0654 RBC Product Rox See Flowsheet 10/02 0439 Calcium Lvl 7.8 L AST/SGOT 111 H Magnesium Lvl 1.4 L A/G Ratio 0.3 L Chloride 106 Estimated Glomerular Filtrat >120 Total Protein 7.2 ALT/SGPT 40 CO2 22 Albumin Level 1.6 L Electrolyte Balance 11.0 Glucose Level 104 BUN 15.0 Bili Total 2.30 H BUN/Creatinine Ratio 19.5 Sodium Level 139 Creatinine Lvl (s) 0.77 Alk Phos 123 Globulin 5.6 H Potassium Level 3.0 L MCV 85.0 Basophil % 0.3 WBC 13.6 H Neutrophil % 89.8 H Neutrophil, Absolute 12.2 H RBC 4.15 L Lymphocyte % 6.7 L MCHC 32.1 Monocyte, Absolute 0.4 Hgb 11.3 L Monocyte % 2.9 RDW 20.2 H Platelet 54 L Eosinophil, Absolute 0.0 Hct 35.2 L Eosinophil % 0.3 MPV 12.1 H Basophil, Absolute 0.0 MCH 27.3 Lymphocyte, Absolute 0.9 Platelet Estima See Flowsheet Anisocytosis See Flowsheet Polychrom See Flowsheet 10/01 1822 ABO/Rh Interp See Flowsheet ABSC Interp (Ge See Flowsheet Crossmatch, Imm See Flowsheet Crossmatch, Imm See Flowsheet Crossmatch, Imm See Flowsheet Crossmatch, Imm See Flowsheet Crossmatch, Imm See Flowsheet Crossmatch, Imm See Flowsheet Crossmatch, Imm See Flowsheet Crossmatch, Imm See Flowsheet Fibrinogen 421 APTT 31.5 Protime 19.9 H PT International Ratio 1.7 Platelet 62 L 10/01 1655 HCO3 20.1 L CO2 Totl 20.8 L pH 7.557 H Base Excess -1.6 pCO2 23.1 L O2 Sat 88.5 L pO2 50.7 L 10/01 1559 Platelet Produc See Flowsheet 10/01 1554 RBC Product Hot [place] See Flowsheet 10/01 1100 Blood Glucose T See Flowsheet 10/01 0821 BUN 27.0 H Sodium Level 144 Creatinine Lvl (s) 0.89 Estimated Glomerular Filtrat 119 Potassium Level 3.9 Calcium Lvl 7.5 L Chloride 110 Electrolyte Balance 12.0 CO2 22 BUN/Creatinine Ratio 30.3 H Glucose Level 112 H MCHC 32.5 MPV 10.4 Eosinophil % 0.1 RBC 2.60 L Basophil, Absolute 0.1 RDW 16.6 H Hgb 7.3 L WBC 14.7 H Basophil % 0.9 Neutrophil % 85.8 H Lymphocyte, Absolute 1.3 Hct 22.3 L MCV 85.7 Neutrophil, Absolute 12.6 H Lymphocyte % 9.1 L Monocyte, Absolute 0.6 Platelet 42 L MCH 27.9 Monocyte % 4.1 Eosinophil, Absolute 0.0 Platelet Estima See Flowsheet Anisocytosis See Flowsheet Polychrom See Flowsheet Assessment: -TVIE s/p redo tricuspid valve replacement. -ABLA -Consumptive coagulopathy -Thrombocytopenia -Leukocytosis -Stress hyperglycemia -Hx IVDU -Hepatitis C Plan: -Continue lung protective ventilation. Patient tachypnic and breath stacking with weaning of sedation. required multiple sedatives in MICU while intubated. Will add ketamine, continue precedex and propofol gtts. Prn fentanyl pushes. RASS goal -1-1. -Check TEG. Replace as indicated. Target Plt > 50 if not actively bleeding -Continue DDD pacing, complete heart block underlying -Monitor chest tube output. Maintain on wall suction -Continue abx, ID following -s/p Tyson-seven for refractory bleeding -Monitor UOP and renal function closely. Recent TAMIE -Replete calcium -Continue insulin gtt per protocol -If needing vasopressor support, favor vasopressin -Discussed with CTS on unit -CCM will follow Critical Care Time Attestation: [id number] I personally provided direct, [id number] critical care services to this patient totaling at least60 minutes of critical care time. During this period, I evaluated the patient s condition, implemented appropriate management strategies, and made time-sensitive decisions in line with accepted critical care guidelines. All services provided were in accordance with institutional protocols and current regulatory standards. Provider Attestation: By electronically signing this note, I certify that the above documentation accurately reflects my delivery of critical care services during the stated period. Manuel Martin MD Digitally Signed by MANUEL MARTIN MD on 10/02/2024 07:59 PM [id number] An[facility] Consult note Patient: SAM JIMENEZ Age: 29 years Sex: Male : 1995 Associated Diagnoses: None Author: YORDAN DALE MD Postoperative Information Post Operative Info: Post op day: Post Anesthesia Care Unit. Patient location: PACU. Assessment Postanesthesia assessment Vitals: Vital signs from flowsheet : Vital Signs 10/02/2024 19:33 EDT Heart Rate Monitored 90 bpm Systolic Blood Pressure Invasive 102 mmHg Diastolic Blood Pressure Invasive 64 mmHg Mean Arterial Pressure (Line) 80 mmHg 10/02/2024 19:33 EDT Temperature Oral 36.7 DegC Respiratory Rate 21 br/min HI Reason For Taking VItal Signs 1 hour post transfusion Signs/Symptoms Transfusion Reaction No 10/02/2024 19:26 EDT Temperature Oral 36.7 DegC Peripheral Pulse Rate 90 bpm Respiratory Rate 19 br/min Systolic Blood Pressure 109 mmHg Diastolic Blood Pressure 73 mmHg 10/02/2024 19:24 EDT Signs/Symptoms Transfusion Reaction No 10/02/2024 18:47 EDT Heart Rate Monitored 90 bpm Systolic Blood Pressure Invasive 105 mmHg Diastolic Blood Pressure Invasive 63 mmHg Mean Arterial Pressure (Line) 80 mmHg 10/02/2024 18:47 EDT Temperature Oral 36.7 DegC Respiratory Rate 21 br/min HI Reason For Taking VItal Signs 1 hour post transfusion Signs/Symptoms Transfusion Reaction No 10/02/2024 18:36 EDT Heart Rate Monitored 90 bpm Systolic Blood Pressure Invasive 106 mmHg Diastolic Blood Pressure Invasive 63 mmHg Mean Arterial Pressure (Line) 80 mmHg 10/02/2024 18:36 EDT Peripheral Pulse Rate 90 bpm Respiratory Rate 24 br/min HI 10/02/2024 18:34 EDT Temperature Oral 36.7 DegC Peripheral Pulse Rate 90 bpm Respiratory Rate 24 br/min HI Systolic Blood Pressure 104 mmHg Diastolic Blood Pressure 62 mmHg 10/02/2024 18:33 EDT Signs/Symptoms Transfusion Reaction No 10/02/2024 18:17 EDT Heart Rate Monitored 89 bpm Systolic Blood Pressure Invasive 107 mmHg Diastolic Blood Pressure Invasive 66 mmHg Mean Arterial Pressure (Line) 83 mmHg 10/02/2024 18:17 EDT Temperature Oral 36.5 DegC Respiratory Rate 26 br/min HI Reason For Taking VItal Signs 15 min post start of transfusion Signs/Symptoms Transfusion Reaction No 10/02/2024 17:48 EDT Heart Rate Monitored 90 bpm Systolic Blood Pressure Invasive 123 mmHg Diastolic Blood Pressure Invasive 81 mmHg Mean Arterial Pressure (Line) 99 mmHg 10/02/2024 17:47 EDT Heart Rate Monitored 90 bpm Systolic Blood Pressure Invasive 124 mmHg Diastolic Blood Pressure Invasive 82 mmHg Mean Arterial Pressure (Line) 100 mmHg 10/02/2024 17:47 EDT Signs/Symptoms Transfusion Reaction No 10/02/2024 17:47 EDT Temperature Oral 36.5 DegC Peripheral Pulse Rate 90 bpm Respiratory Rate 26 br/min HI Systolic Blood Pressure 123 mmHg Diastolic Blood Pressure 82 mmHg Reason For Taking VItal Signs Intervention follow-up 10/02/2024 17:40 EDT Heart Rate Monitored 90 bpm Systolic Blood Pressure Invasive 133 mmHg Diastolic Blood Pressure Invasive 87 mmHg Mean Arterial Pressure (Line) 106 mmHg 10/02/2024 17:40 EDT Reason For Taking VItal Signs Change in patient condition 10/02/2024 17:38 EDT Heart Rate Monitored 90 bpm Systolic Blood Pressure Invasive 129 mmHg Diastolic Blood Pressure Invasive 85 mmHg Mean Arterial Pressure (Line) 103 mmHg 10/02/2024 17:31 EDT Temperature Oral 36.5 DegC Heart Rate Monitored 90 bpm Respiratory Rate 35 br/min >HHI Systolic Blood Pressure Invasive 115 mmHg Diastolic Blood Pressure Invasive 74 mmHg Mean Arterial Pressure (Line) 91 mmHg Reason For Taking VItal Signs 15 min post start of transfusion Signs/Symptoms Transfusion Reaction No 10/02/2024 16:45 EDT Heart Rate Monitored 90 bpm Systolic Blood Pressure Invasive 100 mmHg Diastolic Blood Pressure Invasive 58 mmHg LOW Mean Arterial Pressure (Line) 72 mmHg 10/02/2024 16:45 EDT Temperature Oral 36.5 DegC Respiratory Rate 24 br/min HI Reason For Taking VItal Signs Pre-transfusion 10/02/2024 16:05 EDT Heart Rate Monitored 90 bpm Systolic Blood Pressure Invasive 101 mmHg Diastolic Blood Pressure Invasive 58 mmHg LOW Mean Arterial Pressure (Line) 73 mmHg 10/02/2024 16:05 EDT Temperature Oral 36.5 DegC Respiratory Rate 22 br/min HI Reason For Taking VItal Signs Procedure post-care 10/02/2024 15:58 EDT Heart Rate Monitored 89 bpm Systolic Blood Pressure Invasive 102 mmHg Diastolic Blood Pressure Invasive 57 mmHg LOW Mean Arterial Pressure (Line) 73 mmHg 10/02/2024 15:55 EDT Heart Rate Monitored 90 bpm Systolic Blood Pressure Invasive 103 mmHg Diastolic Blood Pressure Invasive 58 mmHg LOW Mean Arterial Pressure (Line) 73 mmHg 10/02/2024 15:55 EDT Peripheral Pulse Rate 90 bpm Respiratory Rate 35 br/min >HHI Reason For Taking VItal Signs Intervention follow-up 10/02/2024 15:30 EDT Heart Rate Monitored 89 bpm Systolic Blood Pressure Invasive 90 mmHg Diastolic Blood Pressure Invasive 53 mmHg LOW Mean Arterial Pressure (Line) 66 mmHg 10/02/2024 15:30 EDT Respiratory Rate 24 br/min HI Reason For Taking VItal Signs Intervention follow-up 10/02/2024 15:26 EDT Heart Rate Monitored 90 bpm Respiratory Rate 24 br/min HI Systolic Blood Pressure Invasive 74 mmHg LOW Diastolic Blood Pressure Invasive 36 mmHg Mean Arterial Pressure (Line) 49 mmHg 10/02/2024 15:26 EDT Reason For Taking VItal Signs Intervention follow-up 10/02/2024 15:20 EDT Heart Rate Monitored 90 bpm Respiratory Rate 22 br/min HI Systolic Blood Pressure Invasive 80 mmHg LOW Diastolic Blood Pressure Invasive 41 mmHg Mean Arterial Pressure (Line) 54 mmHg 10/02/2024 15:20 EDT Reason For Taking VItal Signs Intervention follow-up 10/02/2024 15:18 EDT Heart Rate Monitored 90 bpm Respiratory Rate 22 br/min HI Systolic Blood Pressure Invasive 77 mmHg LOW Diastolic Blood Pressure Invasive 38 mmHg Mean Arterial Pressure (Line) 51 mmHg 10/02/2024 15:18 EDT Reason For Taking VItal Signs Change in patient condition 10/02/2024 15:16 EDT Heart Rate Monitored 90 bpm Respiratory Rate 33 br/min >HHI Systolic Blood Pressure Invasive 77 mmHg LOW Diastolic Blood Pressure Invasive 38 mmHg Mean Arterial Pressure (Line) 51 mmHg 10/02/2024 15:16 EDT Reason For Taking VItal Signs Change in patient condition 10/02/2024 15:13 EDT Heart Rate Monitored 90 bpm Respiratory Rate 40 br/min >HHI Systolic Blood Pressure Invasive 82 mmHg LOW Diastolic Blood Pressure Invasive 41 mmHg Mean Arterial Pressure (Line) 54 mmHg 10/02/2024 15:13 EDT Reason For Taking VItal Signs Change in patient condition 10/02/2024 15:05 EDT Heart Rate Monitored 92 bpm Respiratory Rate 45 br/min >HHI Systolic Blood Pressure Invasive 97 mmHg Diastolic Blood Pressure Invasive 53 mmHg LOW Mean Arterial Pressure (Line) 67 mmHg 10/02/2024 15:05 EDT Reason For Taking VItal Signs Procedure post-care 10/02/2024 14:50 EDT Heart Rate Monitored 90 bpm Respiratory Rate 22 br/min HI Systolic Blood Pressure Invasive 94 mmHg Diastolic Blood Pressure Invasive 48 mmHg Mean Arterial Pressure (Line) 63 mmHg 10/02/2024 14:35 EDT Heart Rate Monitored 90 bpm Systolic Blood Pressure Invasive 99 mmHg Diastolic Blood Pressure Invasive 56 mmHg LOW Mean Arterial Pressure (Line) 69 mmHg 10/02/2024 14:35 EDT Reason For Taking VItal Signs Procedure post-care 10/02/2024 14:20 EDT Heart Rate Monitored 90 bpm Systolic Blood Pressure Invasive 103 mmHg Diastolic Blood Pressure Invasive 58 mmHg LOW Mean Arterial Pressure (Line) 72 mmHg 10/02/2024 14:20 EDT Temperature Oral 36.7 DegC Respiratory Rate 22 br/min HI Reason For Taking VItal Signs Intervention follow-up (Modified) 10/02/2024 14:05 EDT Heart Rate Monitored 92 bpm Systolic Blood Pressure Invasive 128 mmHg Diastolic Blood Pressure Invasive 84 mmHg Mean Arterial Pressure (Line) 101 mmHg 10/02/2024 14:05 EDT Respiratory Rate 34 br/min >HHI Reason For Taking VItal Signs Procedure post-care 10/02/2024 13:50 EDT Heart Rate Monitored 90 bpm Systolic Blood Pressure Invasive 106 mmHg Diastolic Blood Pressure Invasive 64 mmHg Mean Arterial Pressure (Line) 78 mmHg 10/02/2024 13:50 EDT Respiratory Rate 35 br/min >HHI Reason For Taking VItal Signs Intervention follow-up 10/02/2024 13:35 EDT Heart Rate Monitored 91 bpm Respiratory Rate 17 br/min Systolic Blood Pressure Invasive 97 mmHg Diastolic Blood Pressure Invasive 60 mmHg Mean Arterial Pressure (Line) 72 mmHg 10/02/2024 13:35 EDT Reason For Taking VItal Signs Procedure post-care 10/02/2024 13:30 EDT Heart Rate Monitored 91 bpm Systolic Blood Pressure Invasive 93 mmHg Diastolic Blood Pressure Invasive 57 mmHg LOW Mean Arterial Pressure (Line) 69 mmHg 10/02/2024 13:30 EDT Respiratory Rate 17 br/min Reason For Taking VItal Signs 1 hour post transfusion Signs/Symptoms Transfusion Reaction No 10/02/2024 13:20 EDT Heart Rate Monitored 91 bpm Systolic Blood Pressure Invasive 100 mmHg Diastolic Blood Pressure Invasive 62 mmHg Mean Arterial Pressure (Line) 74 mmHg 10/02/2024 13:20 EDT Reason For Taking VItal Signs Intervention follow-up 10/02/2024 13:17 EDT Heart Rate Monitored 91 bpm Systolic Blood Pressure Invasive 112 mmHg Diastolic Blood Pressure Invasive 73 mmHg Mean Arterial Pressure (Line) 86 mmHg 10/02/2024 13:05 EDT Heart Rate Monitored 91 bpm Systolic Blood Pressure Invasive 126 mmHg Diastolic Blood Pressure Invasive 77 mmHg Mean Arterial Pressure (Line) 93 mmHg 10/02/2024 13:05 EDT Reason For Taking VItal Signs Procedure post-care 10/02/2024 12:50 EDT Heart Rate Monitored 91 bpm Systolic Blood Pressure Invasive 124 mmHg Diastolic Blood Pressure Invasive 82 mmHg Mean Arterial Pressure (Line) 98 mmHg 10/02/2024 12:50 EDT Reason For Taking VItal Signs Procedure post-care 10/02/2024 12:39 EDT Heart Rate Monitored 91 bpm Systolic Blood Pressure Invasive 127 mmHg Diastolic Blood Pressure Invasive 84 mmHg Mean Arterial Pressure (Line) 101 mmHg 10/02/2024 12:39 EDT Temperature Oral 36.8 DegC Respiratory Rate 14 br/min Reason For Taking VItal Signs 1 hour post transfusion Signs/Symptoms Transfusion Reaction No 10/02/2024 12:35 EDT Heart Rate Monitored 91 bpm Systolic Blood Pressure Invasive 131 mmHg Diastolic Blood Pressure Invasive 88 mmHg Mean Arterial Pressure (Line) 105 mmHg 10/02/2024 12:35 EDT Reason For Taking VItal Signs Procedure post-care 10/02/2024 12:32 EDT Temperature Oral 36.8 DegC Peripheral Pulse Rate 91 bpm Respiratory Rate 14 br/min Systolic Blood Pressure 130 mmHg Diastolic Blood Pressure 80 mmHg 10/02/2024 12:30 EDT Signs/Symptoms Transfusion Reaction No 10/02/2024 12:22 EDT Heart Rate Monitored 91 bpm Respiratory Rate 14 br/min (Modified) Systolic Blood Pressure Invasive 133 mmHg Diastolic Blood Pressure Invasive 90 mmHg HI Mean Arterial Pressure (Line) 110 mmHg 10/02/2024 12:20 EDT Temperature Oral 36.8 DegC Heart Rate Monitored 91 bpm Respiratory Rate 14 br/min Systolic Blood Pressure Invasive 117 mmHg Diastolic Blood Pressure Invasive 72 mmHg Mean Arterial Pressure (Line) 85 mmHg Reason For Taking VItal Signs Procedure post-care 10/02/2024 12:15 EDT Respiratory Rate - Anes 15 br/min br/min 10/02/2024 12:13 EDT Temperature (Route Not Specified) 36.22 DegC DegC 10/02/2024 12:10 EDT Heart Rate Monitored 91 bpm bpm Respiratory Rate - Anes 17 br/min br/min 10/02/2024 12:05 EDT Temperature Bladder 36.63 DegC DegC Heart Rate Monitored 91 bpm bpm Respiratory Rate - Anes 17 br/min br/min 10/02/2024 12:00 EDT Temperature Bladder 36.75 DegC DegC Temperature (Route Not Specified) 36.25 DegC DegC Heart Rate Monitored 91 bpm bpm Respiratory Rate - Anes 17 br/min br/min 10/02/2024 11:55 EDT Temperature Bladder 36.72 DegC DegC Temperature (Route Not Specified) 36.17 DegC DegC Heart Rate Monitored 91 bpm bpm Respiratory Rate - Anes 17 br/min br/min 10/02/2024 11:50 EDT Temperature Bladder 36.76 DegC DegC Temperature (Route Not Specified) 36.13 DegC DegC Heart Rate Monitored 91 bpm bpm Respiratory Rate - Anes 17 br/min br/min 10/02/2024 11:45 EDT Temperature Bladder 36.82 DegC DegC Temperature (Route Not Specified) 36.21 DegC DegC Heart Rate Monitored 91 bpm bpm Respiratory Rate - Anes 17 br/min br/min 10/02/2024 11:40 EDT Temperature Bladder 36.88 DegC DegC Temperature (Route Not Specified) 36.35 DegC DegC Heart Rate Monitored 84 bpm bpm Respiratory Rate - Anes 17 br/min br/min 10/02/2024 11:39 EDT Signs/Symptoms Transfusion Reaction No 10/02/2024 11:35 EDT Temperature Bladder 36.92 DegC DegC Temperature (Route Not Specified) 36.48 DegC DegC Heart Rate Monitored 91 bpm bpm Respiratory Rate - Anes 17 br/min br/min 10/02/2024 11:30 EDT Temperature Bladder 36.92 DegC DegC Temperature (Route Not Specified) 36.6 DegC DegC Heart Rate Monitored 91 bpm bpm Respiratory Rate - Anes 17 br/min br/min 10/02/2024 11:25 EDT Temperature Bladder 37 DegC DegC Temperature (Route Not Specified) 36.73 DegC DegC Heart Rate Monitored 91 bpm bpm Respiratory Rate - Anes 17 br/min br/min 10/02/2024 11:20 EDT Temperature Bladder 37.07 DegC DegC Temperature (Route Not Specified) 36.89 DegC DegC Heart Rate Monitored 91 bpm bpm Respiratory Rate - Anes 17 br/min br/min 10/02/2024 11:15 EDT Temperature Bladder 37.11 DegC DegC Temperature (Route Not Specified) 37.05 DegC DegC Heart Rate Monitored 91 bpm bpm Respiratory Rate - Anes 17 br/min br/min 10/02/2024 11:12 EDT Signs/Symptoms Transfusion Reaction No 10/02/2024 11:10 EDT Temperature Bladder 37.14 DegC DegC Temperature (Route Not Specified) 37.21 DegC DegC Heart Rate Monitored 91 bpm bpm Respiratory Rate - Anes 16 br/min br/min 10/02/2024 11:05 EDT Temperature Bladder 37.18 DegC DegC Temperature (Route Not Specified) 37.38 DegC DegC Heart Rate Monitored 90 bpm bpm Respiratory Rate - Anes 16 br/min br/min 10/02/2024 11:00 EDT Temperature Bladder 37.28 DegC DegC Temperature (Route Not Specified) 37.5 DegC DegC Heart Rate Monitored 80 bpm bpm Respiratory Rate - Anes 16 br/min br/min 10/02/2024 10:55 EDT Temperature Bladder 37.29 DegC DegC Temperature (Route Not Specified) 37.58 DegC DegC Heart Rate Monitored 86 bpm bpm Respiratory Rate - Anes 16 br/min br/min 10/02/2024 10:50 EDT Temperature Bladder 37.29 DegC DegC Temperature (Route Not Specified) 37.62 DegC DegC Heart Rate Monitored 85 bpm bpm Respiratory Rate - Anes 16 br/min br/min 10/02/2024 10:45 EDT Temperature Bladder 37.27 DegC DegC Temperature (Route Not Specified) 37.62 DegC DegC Heart Rate Monitored 88 bpm bpm Respiratory Rate - Anes 16 br/min br/min 10/02/2024 10:40 EDT Temperature Bladder 37.26 DegC DegC Temperature (Route Not Specified) 37.57 DegC DegC Heart Rate Monitored 30 bpm bpm 10/02/2024 10:35 EDT Temperature Bladder 37.23 DegC DegC Temperature (Route Not Specified) 37.49 DegC DegC Heart Rate Monitored 34 bpm bpm 10/02/2024 10:30 EDT Temperature Bladder 37.18 DegC DegC Temperature (Route Not Specified) 37.36 DegC DegC Heart Rate Monitored 35 bpm bpm 10/02/2024 10:25 EDT Temperature Bladder 37.25 DegC DegC Temperature (Route Not Specified) 37.23 DegC DegC Heart Rate Monitored 32 bpm bpm 10/02/2024 10:20 EDT Temperature Bladder 37.17 DegC DegC Temperature (Route Not Specified) 37.29 DegC DegC Heart Rate Monitored 36 bpm bpm 10/02/2024 10:15 EDT Temperature Bladder 37.11 DegC DegC Temperature (Route Not Specified) 37.27 DegC DegC Heart Rate Monitored 39 bpm bpm 10/02/2024 10:10 EDT Temperature Bladder 37.04 DegC DegC Temperature (Route Not Specified) 37.12 DegC DegC Heart Rate Monitored 72 bpm bpm 10/02/2024 10:05 EDT Temperature Bladder 36.96 DegC DegC Temperature (Route Not Specified) 36.79 DegC DegC Heart Rate Monitored 55 bpm bpm 10/02/2024 10:00 EDT Temperature Bladder 36.97 DegC DegC Temperature (Route Not Specified) 36.69 DegC DegC Heart Rate Monitored 56 bpm bpm 10/02/2024 9:55 EDT Temperature Bladder 37.04 DegC DegC Temperature (Route Not Specified) 36.72 DegC DegC Heart Rate Monitored 68 bpm bpm 10/02/2024 9:50 EDT Temperature Bladder 37.1 DegC DegC Temperature (Route Not Specified) 36.74 DegC DegC Heart Rate Monitored 42 bpm bpm 10/02/2024 9:45 EDT Temperature Bladder 37.15 DegC DegC Temperature (Route Not Specified) 36.76 DegC DegC Heart Rate Monitored 80 bpm bpm 10/02/2024 9:40 EDT Temperature Bladder 37.22 DegC DegC Temperature (Route Not Specified) 36.77 DegC DegC Heart Rate Monitored 80 bpm bpm 10/02/2024 9:35 EDT Temperature Bladder 37.31 DegC DegC Temperature (Route Not Specified) 36.78 DegC DegC Heart Rate Monitored 77 bpm bpm 10/02/2024 9:30 EDT Temperature Bladder 37.48 DegC DegC Temperature (Route Not Specified) 36.79 DegC DegC Heart Rate Monitored 78 bpm bpm 10/02/2024 9:25 EDT Temperature Bladder 37.55 DegC DegC Temperature (Route Not Specified) 36.8 DegC DegC Heart Rate Monitored 86 bpm bpm 10/02/2024 9:20 EDT Temperature Bladder 37.63 DegC DegC Temperature (Route Not Specified) 36.78 DegC DegC Heart Rate Monitored 93 bpm bpm 10/02/2024 9:15 EDT Temperature Bladder 37.7 DegC DegC Temperature (Route Not Specified) 36.8 DegC DegC Heart Rate Monitored 98 bpm bpm 10/02/2024 9:10 EDT Temperature Bladder 37.75 DegC DegC Temperature (Route Not Specified) 36.88 DegC DegC Heart Rate Monitored 100 bpm bpm 10/02/2024 9:05 EDT Temperature Bladder 37.88 DegC DegC Temperature (Route Not Specified) 37.18 DegC DegC Heart Rate Monitored 96 bpm bpm 10/02/2024 9:00 EDT Temperature Bladder 37.96 DegC DegC Temperature (Route Not Specified) 37.15 DegC DegC Heart Rate Monitored 104 bpm bpm 10/02/2024 8:55 EDT Temperature Bladder 38.02 DegC DegC Temperature (Route Not Specified) 37.18 DegC DegC Heart Rate Monitored 111 bpm bpm Respiratory Rate - Anes 3 br/min br/min 10/02/2024 8:50 EDT Temperature Bladder 38.11 DegC DegC Temperature (Route Not Specified) 37.43 DegC DegC Heart Rate Monitored 116 bpm bpm Respiratory Rate - Anes 16 br/min br/min 10/02/2024 8:45 EDT Temperature Bladder 38.18 DegC DegC Temperature (Route Not Specified) 37.43 DegC DegC Heart Rate Monitored 117 bpm bpm Respiratory Rate - Anes 16 br/min br/min 10/02/2024 8:40 EDT Temperature Bladder 38.24 DegC DegC Temperature (Route Not Specified) 37.46 DegC DegC Heart Rate Monitored 116 bpm bpm Respiratory Rate - Anes 16 br/min br/min 10/02/2024 8:35 EDT Temperature Bladder 38.3 DegC DegC Temperature (Route Not Specified) 37.51 DegC DegC Heart Rate Monitored 113 bpm bpm Respiratory Rate - Anes 16 br/min br/min 10/02/2024 8:30 EDT Temperature Bladder 38.36 DegC DegC Temperature (Route Not Specified) 37.54 DegC DegC Heart Rate Monitored 109 bpm bpm Respiratory Rate - Anes 15 br/min br/min 10/02/2024 8:25 EDT Temperature Bladder 38.37 DegC DegC Temperature (Route Not Specified) 37.56 DegC DegC Heart Rate Monitored 109 bpm bpm Respiratory Rate - Anes 15 br/min br/min 10/02/2024 8:20 EDT Temperature Bladder 38.37 DegC DegC Heart Rate Monitored 117 bpm bpm Respiratory Rate - Anes 15 br/min br/min 10/02/2024 8:15 EDT Temperature Bladder 38.31 DegC DegC Heart Rate Monitored 118 bpm bpm Respiratory Rate - Anes 12 br/min br/min 10/02/2024 8:14 EDT Signs/Symptoms Transfusion Reaction No 10/02/2024 8:10 EDT Temperature Bladder 38.18 DegC DegC Heart Rate Monitored 116 bpm bpm Respiratory Rate - Anes 12 br/min br/min 10/02/2024 8:05 EDT Temperature Bladder 37.89 DegC DegC Heart Rate Monitored 0 bpm bpm Respiratory Rate - Anes 12 br/min br/min 10/02/2024 8:00 EDT Temperature Bladder 37.64 DegC DegC Heart Rate Monitored 113 bpm bpm Respiratory Rate - Anes 11 br/min br/min 10/02/2024 7:55 EDT Heart Rate Monitored 109 bpm bpm Respiratory Rate - Anes 11 br/min br/min 10/02/2024 7:50 EDT Heart Rate Monitored 94 bpm bpm Respiratory Rate - Anes 9 br/min br/min 10/02/2024 7:45 EDT Heart Rate Monitored 109 bpm bpm 10/02/2024 7:40 EDT Heart Rate Monitored 109 bpm bpm 10/02/2024 7:17 EDT Temperature Oral 38.2 DegC HI Apical Heart Rate 109 bpm HI Respiratory Rate 28 br/min HI Systolic Blood Pressure Non-Invasive 148 mmHg HI Diastolic Blood Pressure Non-Invasive 102 mmHg >HHI Mean Arterial Pressure (NBP) 115 mmHg Reason For Taking VItal Signs 15 min post start of transfusion Signs/Symptoms Transfusion Reaction No 10/02/2024 7:15 EDT Temperature Temporal Artery - Anes 38.3 DegC HI Peripheral Pulse Rate 105 bpm HI Respiratory Rate 22 br/min HI Systolic Blood Pressure 150 mmHg HI Diastolic Blood Pressure 108 mmHg CRIT 10/02/2024 7:13 EDT Signs/Symptoms Transfusion Reaction No 10/02/2024 6:58 EDT Temperature Oral 38.6 DegC HI Heart Rate Monitored 117 bpm HI Respiratory Rate 28 br/min HI Systolic Blood Pressure Non-Invasive 148 mmHg HI Diastolic Blood Pressure Non-Invasive 95 mmHg HI Mean Arterial Pressure (NBP) 114 mmHg Reason For Taking VItal Signs Pre-transfusion 10/02/2024 6:17 EDT Apical Heart Rate 113 bpm [place] 10/02/2024 4:48 EDT Apical Heart Rate 112 bpm [place] 10/02/2024 4:30 EDT Respiratory Rate 39 br/min >HHI 10/02/2024 4:30 EDT Temperature Oral 37.4 DegC HI Systolic Blood Pressure Non-Invasive 143 mmHg HI Diastolic Blood Pressure Non-Invasive 103 mmHg >HHI Mean Arterial Pressure (NBP) 114 mmHg Reason For Taking VItal Signs Routine 10/02/2024 2:25 EDT Heart Rate Monitored 109 bpm HI Respiratory Rate 27 br/min [place] 10/02/2024 1:30 EDT Heart Rate Monitored 107 bpm [place] 10/02/2024 1:30 EDT Temperature Oral 37 DegC Respiratory Rate 24 br/min HI Systolic Blood Pressure Non-Invasive 135 mmHg Diastolic Blood Pressure Non-Invasive 98 mmHg HI Reason For Taking VItal Signs 1 hour post transfusion Signs/Symptoms Transfusion Reaction No 10/02/2024 0:33 EDT Temperature Oral 36.9 DegC Peripheral Pulse Rate 109 bpm HI Respiratory Rate 24 br/min HI Systolic Blood Pressure 123 mmHg Diastolic Blood Pressure 103 mmHg CRIT 10/02/2024 0:31 EDT Systolic Blood Pressure Non-Invasive 123 mmHg Diastolic Blood Pressure Non-Invasive 103 mmHg >HHI Mean Arterial Pressure (NBP) 110 mmHg 10/02/2024 0:31 EDT Heart Rate Monitored 111 bpm HI Respiratory Rate 23 br/min [place] 10/02/2024 0:30 EDT Signs/Symptoms Transfusion Reaction No 10/02/2024 0:30 EDT Heart Rate Monitored 110 bpm [place] 10/02/2024 0:30 EDT Temperature Oral 36.9 DegC Respiratory Rate 24 br/min HI Systolic Blood Pressure Non-Invasive 123 mmHg Diastolic Blood Pressure Non-Invasive 103 mmHg >HHI 10/02/2024 0:15 EDT Temperature Oral 37.1 DegC Heart Rate Monitored 115 bpm HI Respiratory Rate 22 br/min HI Systolic Blood Pressure Non-Invasive 137 mmHg Diastolic Blood Pressure Non-Invasive 106 mmHg >HHI Mean Arterial Pressure (NBP) 116 mmHg Signs/Symptoms Transfusion Reaction No 10/02/2024 0:09 EDT Respiratory Rate 26 br/min [place] 10/02/2024 0:09 EDT Temperature Oral 37.1 DegC Heart Rate Monitored 115 bpm HI Systolic Blood Pressure Non-Invasive 137 mmHg Diastolic Blood Pressure Non-Invasive 106 mmHg >HHI Mean Arterial Pressure (NBP) 116 mmHg Reason For Taking VItal Signs 1 hour post transfusion Signs/Symptoms Transfusion Reaction No 10/02/2024 0:08 EDT Heart Rate Monitored 115 bpm HI Systolic Blood Pressure Non-Invasive 139 mmHg Diastolic Blood Pressure Non-Invasive 107 mmHg >HHI Mean Arterial Pressure (NBP) 118 mmHg 10/02/2024 0:08 EDT Respiratory Rate 22 br/min HI 10/02/2024 0:01 EDT Heart Rate Monitored 115 bpm HI Respiratory Rate 25 br/min HI 10/02/2024 0:00 EDT Peripheral Pulse Rate 114 bpm HI Reason For Taking VItal Signs Routine Signs/Symptoms Transfusion Reaction No Signs/Symptoms Transfusion Reaction No 10/01/2024 23:50 EDT Temperature Oral In Error DegC (In Error) Respiratory Rate In Error br/min (In Error) Systolic Blood Pressure Non-Invasive In Error mmHg (In Error) Diastolic Blood Pressure Non-Invasive In Error mmHg (In Error) Mean Arterial Pressure (NBP) In Error mmHg (In Error) Reason For Taking VItal Signs In Error (In Error) Signs/Symptoms Transfusion Reaction No 10/01/2024 23:45 EDT Temperature Oral 36.8 DegC Respiratory Rate 12 br/min LOW Systolic Blood Pressure Non-Invasive 142 mmHg HI Diastolic Blood Pressure Non-Invasive 96 mmHg HI Mean Arterial Pressure (NBP) 110 mmHg Reason For Taking VItal Signs 15 min post start of transfusion 10/01/2024 23:12 EDT Temperature Oral 36.8 DegC Respiratory Rate 19 br/min Systolic Blood Pressure Non-Invasive 142 mmHg HI Diastolic Blood Pressure Non-Invasive 100 mmHg >HHI Mean Arterial Pressure (NBP) 113 mmHg Blood Pressure Method Automatic Blood Pressure Location Left arm Blood Pressure Cuff Size Medium Reason For Taking VItal Signs Pre-transfusion 10/01/2024 23:10 EDT Temperature Oral 37.0 DegC Peripheral Pulse Rate 113 bpm HI Respiratory Rate 20 br/min Systolic Blood Pressure 143 mmHg HI Diastolic Blood Pressure 106 mmHg CRIT 10/01/2024 23:09 EDT Signs/Symptoms Transfusion Reaction No 10/01/2024 23:01 EDT Signs/Symptoms Transfusion Reaction No 10/01/2024 22:31 EDT Signs/Symptoms Transfusion Reaction No 10/01/2024 22:01 EDT Signs/Symptoms Transfusion Reaction No 10/01/2024 21:58 EDT Temperature Oral 36.8 DegC Respiratory Rate 19 br/min Systolic Blood Pressure Non-Invasive 133 mmHg Diastolic Blood Pressure Non-Invasive 101 mmHg >HHI 10/01/2024 21:46 EDT Temperature Oral 37.1 DegC Heart Rate Monitored 121 bpm HI Respiratory Rate 20 br/min Systolic Blood Pressure Non-Invasive 133 mmHg Diastolic Blood Pressure Non-Invasive 101 mmHg >HHI Mean Arterial Pressure (NBP) 110 mmHg Blood Pressure Method Automatic Reason For Taking VItal Signs 15 min post start of transfusion Signs/Symptoms Transfusion Reaction No 10/01/2024 21:10 EDT Temperature Oral 37.1 DegC Respiratory Rate 20 br/min Systolic Blood Pressure Non-Invasive 142 mmHg HI Diastolic Blood Pressure Non-Invasive 97 mmHg HI Mean Arterial Pressure (NBP) 110 mmHg Blood Pressure Method Automatic Blood Pressure Location Left arm Blood Pressure Cuff Size Medium Reason For Taking VItal Signs Pre-transfusion 10/01/2024 20:21 EDT Temperature Oral 37.0 DegC Heart Rate Monitored 124 bpm HI Respiratory Rate 24 br/min HI Systolic Blood Pressure Non-Invasive 135 mmHg Diastolic Blood Pressure Non-Invasive 99 mmHg HI Reason For Taking VItal Signs Admission 10/01/2024 19:53 EDT Heart Rate Monitored 119 bpm HI Respiratory Rate 35 br/min >HHI 10/01/2024 19:53 EDT Systolic Blood Pressure Non-Invasive 139 mmHg Diastolic Blood Pressure Non-Invasive 101 mmHg >HHI Reason For Taking VItal Signs Routine 10/01/2024 19:52 EDT Heart Rate Monitored 119 bpm HI Respiratory Rate 32 br/min >HHI 10/01/2024 18:25 EDT Respiratory Rate 25 br/min [place] 10/01/2024 18:25 EDT Peripheral Pulse Rate 111 bpm [place] 10/01/2024 18:24 EDT Respiratory Rate 21 br/min [place] 10/01/2024 15:45 EDT Heart Rate Monitored 104 bpm HI Respiratory Rate 32 br/min >HHI 10/01/2024 15:45 EDT Temperature Oral 36.9 DegC Systolic Blood Pressure Non-Invasive 133 mmHg Diastolic Blood Pressure Non-Invasive 102 mmHg >HHI Reason For Taking VItal Signs Routine 10/01/2024 15:44 EDT Heart Rate Monitored 104 bpm HI Respiratory Rate 27 br/min [place] 10/01/2024 13:00 EDT Heart Rate Monitored 107 bpm [place] 10/01/2024 13:00 EDT Temperature Oral 36.9 DegC Respiratory Rate 33 br/min >[facility] Systolic Blood Pressure Non-Invasive 143 mmHg HI Diastolic Blood Pressure Non-Invasive 89 mmHg Mean Arterial Pressure (NBP) 111 mmHg Reason For Taking VItal Signs Routine 10/01/2024 12:59 EDT Heart Rate Monitored 107 bpm HI Respiratory Rate 32 br/min >HHI 10/01/2024 12:53 EDT Heart Rate Monitored 104 bpm HI Respiratory Rate 35 br/min >I 10/01/2024 11:00 EDT Heart Rate Monitored 110 bpm HI Respiratory Rate 26 br/min [place] 10/01/2024 11:00 EDT Temperature Oral 37.1 DegC Systolic Blood Pressure Non-Invasive 125 mmHg Diastolic Blood Pressure Non-Invasive 92 mmHg HI Mean Arterial Pressure (NBP) 101 mmHg Reason For Taking VItal Signs Routine 10/01/2024 9:00 EDT Heart Rate Monitored 106 bpm HI Respiratory Rate 42 br/min >I 10/01/2024 9:00 EDT Temperature Oral 37.2 DegC Systolic Blood Pressure Non-Invasive 149 mmHg HI Diastolic Blood Pressure Non-Invasive 102 mmHg >[facility] Mean Arterial Pressure (NBP) 114 mmHg Reason For Taking VItal Signs Routine 10/01/2024 8:52 EDT Heart Rate Monitored 107 bpm HI Respiratory Rate 41 br/min >I 10/01/2024 7:00 EDT Heart Rate Monitored 103 bpm HI Respiratory Rate 36 br/min >[facility] 10/01/2024 7:00 EDT Temperature Oral 37.6 DegC HI Systolic Blood Pressure Non-Invasive 141 mmHg HI Diastolic Blood Pressure Non-Invasive 85 mmHg Mean Arterial Pressure (NBP) 100 mmHg Reason For Taking VItal Signs Routine 10/01/2024 6:59 EDT Peripheral Pulse Rate 104 bpm HI Respiratory Rate 25 br/min [place] 10/01/2024 6:58 EDT Respiratory Rate 39 br/min >I 10/01/2024 5:30 EDT Heart Rate Monitored 95 bpm Respiratory Rate 41 br/min >[facility] 10/01/2024 5:30 EDT Systolic Blood Pressure Non-Invasive 137 mmHg Diastolic Blood Pressure Non-Invasive 92 mmHg HI Mean Arterial Pressure (NBP) 104 mmHg Reason For Taking VItal Signs Routine 10/01/2024 5:00 EDT Heart Rate Monitored 98 bpm Respiratory Rate 29 br/min [place] 10/01/2024 5:00 EDT Systolic Blood Pressure Non-Invasive 117 mmHg Diastolic Blood Pressure Non-Invasive 99 mmHg HI Mean Arterial Pressure (NBP) 106 mmHg 10/01/2024 4:30 EDT Heart Rate Monitored 94 bpm Respiratory Rate 31 br/min >HHI 10/01/2024 4:30 EDT Systolic Blood Pressure Non-Invasive 135 mmHg Diastolic Blood Pressure Non-Invasive 85 mmHg Mean Arterial Pressure (NBP) 98 mmHg 10/01/2024 4:00 EDT Heart Rate Monitored 91 bpm Respiratory Rate 39 br/min >HHI 10/01/2024 4:00 EDT Temperature Oral 36.5 DegC Systolic Blood Pressure Non-Invasive 141 mmHg HI Diastolic Blood Pressure Non-Invasive 101 mmHg >HHI Mean Arterial Pressure (NBP) 111 mmHg Reason For Taking VItal Signs Routine 10/01/2024 3:30 EDT Heart Rate Monitored 90 bpm Respiratory Rate 36 br/min >HHI 10/01/2024 3:30 EDT Systolic Blood Pressure Non-Invasive 144 mmHg HI Diastolic Blood Pressure Non-Invasive 97 mmHg HI Mean Arterial Pressure (NBP) 109 mmHg 10/01/2024 3:00 EDT Heart Rate Monitored 88 bpm Respiratory Rate 38 br/min >HHI 10/01/2024 3:00 EDT Systolic Blood Pressure Non-Invasive 139 mmHg Diastolic Blood Pressure Non-Invasive 94 mmHg HI Mean Arterial Pressure (NBP) 106 mmHg 10/01/2024 2:30 EDT Heart Rate Monitored 88 bpm Respiratory Rate 39 br/min >HHI 10/01/2024 2:30 EDT Systolic Blood Pressure Non-Invasive 138 mmHg Diastolic Blood Pressure Non-Invasive 90 mmHg HI Mean Arterial Pressure (NBP) 103 mmHg 10/01/2024 2:00 EDT Heart Rate Monitored 94 bpm Respiratory Rate 41 br/min >HHI 10/01/2024 2:00 EDT Systolic Blood Pressure Non-Invasive 129 mmHg Diastolic Blood Pressure Non-Invasive 82 mmHg Mean Arterial Pressure (NBP) 96 mmHg Reason For Taking VItal Signs Routine 10/01/2024 1:30 EDT Heart Rate Monitored 98 bpm Respiratory Rate 34 br/min >HHI 10/01/2024 1:30 EDT Systolic Blood Pressure Non-Invasive 126 mmHg Diastolic Blood Pressure Non-Invasive 79 mmHg Mean Arterial Pressure (NBP) 92 mmHg 10/01/2024 1:00 EDT Heart Rate Monitored 84 bpm Respiratory Rate 38 br/min >HHI 10/01/2024 1:00 EDT Systolic Blood Pressure Non-Invasive 129 mmHg Diastolic Blood Pressure Non-Invasive 81 mmHg Mean Arterial Pressure (NBP) 95 mmHg 10/01/2024 0:30 EDT Heart Rate Monitored 87 bpm Respiratory Rate 38 br/min >I 10/01/2024 0:30 EDT Systolic Blood Pressure Non-Invasive 125 mmHg Diastolic Blood Pressure Non-Invasive 82 mmHg Mean Arterial Pressure (NBP) 95 mmHg 10/01/2024 0:00 EDT Heart Rate Monitored 85 bpm Respiratory Rate 38 br/min >I 10/01/2024 0:00 EDT Systolic Blood Pressure Non-Invasive 133 mmHg Diastolic Blood Pressure Non-Invasive 83 mmHg Mean Arterial Pressure (NBP) 97 mmHg Reason For Taking VItal Signs Routine , Oxygen Therapy : Oxygen Therapy & Oxygenation Information 10/02/2024 19:33 EDT Oxygen Saturation 100 % 10/02/2024 19:26 EDT Oxygen Saturation 100 % 10/02/2024 18:47 EDT Oxygen Saturation 100 % 10/02/2024 18:36 EDT FiO2 40 % Oxygen Therapy Ventilator Oxygen Saturation 100 % 10/02/2024 18:35 EDT Oxygen Saturation 100 % 10/02/2024 18:34 EDT Oxygen Saturation 100 % 10/02/2024 18:17 EDT Oxygen Saturation 100 % 10/02/2024 18:17 EDT FiO2 50 % Oxygen Therapy Ventilator 10/02/2024 17:48 EDT Oxygen Saturation 100 % 10/02/2024 17:48 EDT FiO2 50 % Oxygen Therapy Ventilator HME (Heat & Moisture Exchanger) Installed 10/02/2024 17:47 EDT Oxygen Saturation 100 % 10/02/2024 17:38 EDT Oxygen Saturation 100 % 10/02/2024 17:31 EDT Oxygen Saturation 100 % 10/02/2024 16:45 EDT Oxygen Saturation 100 % 10/02/2024 16:05 EDT FiO2 40 % Oxygen Therapy Ventilator Oxygen Saturation 97 % 10/02/2024 15:58 EDT Oxygen Saturation 93 % 10/02/2024 15:55 EDT Oxygen Saturation 98 % 10/02/2024 15:52 EDT Oxygen Saturation 100 % 10/02/2024 15:30 EDT Oxygen Saturation 100 % 10/02/2024 15:26 EDT Oxygen Saturation 100 % 10/02/2024 15:20 EDT Oxygen Saturation 100 % 10/02/2024 15:18 EDT Oxygen Saturation 100 % 10/02/2024 15:16 EDT Oxygen Saturation 100 % 10/02/2024 15:13 EDT Oxygen Saturation 100 % 10/02/2024 15:05 EDT Oxygen Saturation 93 % 10/02/2024 14:56 EDT FiO2 40 % 10/02/2024 14:50 EDT Oxygen Saturation 100 % 10/02/2024 14:20 EDT FiO2 70 % Oxygen Therapy Ventilator Oxygen Saturation 100 % 10/02/2024 14:05 EDT Oxygen Saturation 90 % LOW 10/02/2024 13:50 EDT Oxygen Saturation 100 % 10/02/2024 13:35 EDT FiO2 70 % Oxygen Therapy Ventilator 10/02/2024 13:30 EDT Oxygen Saturation 100 % 10/02/2024 13:17 EDT Oxygen Saturation 100 % 10/02/2024 12:39 EDT Oxygen Saturation 100 % 10/02/2024 12:35 EDT Oxygen Saturation 100 % 10/02/2024 12:32 EDT Oxygen Saturation 100 % 10/02/2024 12:22 EDT FiO2 100 % HME (Heat & Moisture Exchanger) Installed 10/02/2024 12:20 EDT FiO2 100 % Oxygen Therapy Ventilator Oxygen Saturation 100 % 10/02/2024 12:00 EDT Oxygen Saturation 97.3 % % 10/02/2024 11:55 EDT Oxygen Saturation 100 % % 10/02/2024 11:50 EDT Oxygen Saturation 98.8 % % 10/02/2024 11:45 EDT Oxygen Saturation 98.5 % % 10/02/2024 11:40 EDT Oxygen Saturation 98 % % 10/02/2024 11:20 EDT Oxygen Saturation 100 % % 10/02/2024 11:15 EDT Oxygen Saturation 100 % % 10/02/2024 10:50 EDT Oxygen Saturation 100 % % 10/02/2024 10:45 EDT Oxygen Saturation 100 % % 10/02/2024 10:15 EDT Oxygen Saturation 100 % % 10/02/2024 10:10 EDT Oxygen Saturation 100 % % 10/02/2024 10:05 EDT Oxygen Saturation 100 % % 10/02/2024 9:40 EDT Oxygen Saturation 100 % % 10/02/2024 9:35 EDT Oxygen Saturation 100 % % 10/02/2024 9:30 EDT Oxygen Saturation 100 % % 10/02/2024 9:25 EDT Oxygen Saturation 100 % % 10/02/2024 9:20 EDT Oxygen Saturation 100 % % 10/02/2024 9:15 EDT Oxygen Saturation 100 % % 10/02/2024 9:10 EDT Oxygen Saturation 100 % % 10/02/2024 9:05 EDT Oxygen Saturation 100 % % 10/02/2024 9:00 EDT Oxygen Saturation 100 % % 10/02/2024 8:55 EDT Oxygen Saturation 100 % % 10/02/2024 8:50 EDT Oxygen Saturation 97.8 % % 10/02/2024 8:45 EDT Oxygen Saturation 97 % % 10/02/2024 8:40 EDT Oxygen Saturation 96.4 % % 10/02/2024 8:35 EDT Oxygen Saturation 96.6 % % 10/02/2024 8:30 EDT Oxygen Saturation 96.4 % % 10/02/2024 8:25 EDT Oxygen Saturation 96.4 % % 10/02/2024 8:20 EDT Oxygen Saturation 96.4 % % 10/02/2024 8:15 EDT Oxygen Saturation 96.9 % % 10/02/2024 8:10 EDT Oxygen Saturation 97.3 % % 10/02/2024 8:05 EDT Oxygen Saturation 97.6 % % 10/02/2024 8:00 EDT Oxygen Saturation 97.5 % % 10/02/2024 7:55 EDT Oxygen Saturation 97.8 % % 10/02/2024 7:50 EDT Oxygen Saturation 92 % % 10/02/2024 7:45 EDT Oxygen Saturation 96.7 % % 10/02/2024 7:40 EDT Oxygen Saturation 100 % % 10/02/2024 7:17 EDT Oxygen Therapy Nasal cannula 0L-6L Oxygen Saturation 97 % Oxygen Flow Rate 2 L/min 10/02/2024 7:15 EDT Oxygen Saturation 97 % 10/02/2024 6:58 EDT Oxygen Therapy Nasal cannula 0L-6L Oxygen Saturation 97 % Oxygen Flow Rate 2 L/min 10/02/2024 4:30 EDT Oxygen Therapy Nasal cannula 0L-6L Oxygen Saturation 96 % Oxygen Flow Rate 1 L/min 10/02/2024 1:30 EDT Oxygen Therapy Nasal cannula 0L-6L Oxygen Saturation 97 % Oxygen Flow Rate 1 L/min 10/02/2024 0:33 EDT Oxygen Saturation 96 % 10/02/2024 0:30 EDT Oxygen Therapy Nasal cannula 0L-6L Oxygen Flow Rate 1 L/min 10/02/2024 0:15 EDT Oxygen Saturation 100 % 10/02/2024 0:09 EDT Oxygen Saturation 100 % 10/02/2024 0:08 EDT Oxygen Saturation 98 % 10/02/2024 0:00 EDT Oxygen Therapy Nasal cannula 0L-6L Oxygen Flow Rate 1 L/min 10/01/2024 23:50 EDT Oxygen Saturation In Error % (In Error) 10/01/2024 23:45 EDT Oxygen Saturation 99 % 10/01/2024 23:12 EDT Oxygen Therapy Nasal cannula 0L-6L Oxygen Saturation 99 % Oxygen Flow Rate 1 L/min 10/01/2024 23:10 EDT Oxygen Saturation 98 % 10/01/2024 21:58 EDT Oxygen Saturation 95 % 10/01/2024 21:46 EDT Oxygen Saturation 98 % 10/01/2024 21:10 EDT Oxygen Therapy Nasal cannula 0L-6L Oxygen Saturation 99 % Oxygen Flow Rate 1 L/min 10/01/2024 20:21 EDT Oxygen Therapy Nasal cannula 0L-6L Oxygen Saturation 96 % Oxygen Flow Rate 2 L/min 10/01/2024 19:53 EDT Oxygen Saturation 96 % 10/01/2024 19:52 EDT Oxygen Saturation 92 % LOW 10/01/2024 18:25 EDT Oxygen Saturation 99 % 10/01/2024 18:24 EDT Oxygen Saturation 94 % 10/01/2024 16:55 EDT Oxygen Therapy Room air Blood Gas Drawn From Left Brachial Artery Site Held by RT 10/01/2024 15:45 EDT Oxygen Therapy Humidification, Nasal cannula 0L-6L Oxygen Saturation 99 % Oxygen Flow Rate 2 L/min 10/01/2024 15:44 EDT Oxygen Saturation 100 % 10/01/2024 13:00 EDT Oxygen Therapy Humidification, Nasal cannula 0L-6L (Modified) Oxygen Saturation 98 % Oxygen Flow Rate 2 L/min 10/01/2024 12:53 EDT Oxygen Saturation 86 % 10/01/2024 11:00 EDT Oxygen Saturation 100 % 10/01/2024 11:00 EDT Oxygen Therapy Room air 10/01/2024 10:52 EDT Oxygen Flow Rate 3 L/min 10/01/2024 9:00 EDT Oxygen Therapy Nasal cannula 0L-6L Oxygen Saturation 98 % Oxygen Flow Rate 2 L/min 10/01/2024 8:52 EDT Oxygen Saturation 88 % 10/01/2024 7:00 EDT Oxygen Saturation 96 % 10/01/2024 7:00 EDT Oxygen Therapy Nasal cannula 0L-6L Oxygen Activity Oxygen On Oxygen Flow Rate 2 L/min 10/01/2024 6:59 EDT Oxygen Saturation 99 % 10/01/2024 6:58 EDT Oxygen Saturation 98 % 10/01/2024 5:30 EDT Oxygen Saturation 99 % 10/01/2024 5:30 EDT Oxygen Therapy Nasal cannula 0L-6L Oxygen Flow Rate 2 L/min 10/01/2024 5:00 EDT Oxygen Saturation 100 % 10/01/2024 4:30 EDT Oxygen Saturation 100 % 10/01/2024 4:00 EDT Oxygen Saturation 98 % 10/01/2024 4:00 EDT Oxygen Therapy Nasal cannula 0L-6L Oxygen Flow Rate 2 L/min 10/01/2024 3:30 EDT Oxygen Saturation 99 % 10/01/2024 3:00 EDT Oxygen Saturation 99 % 10/01/2024 2:30 EDT Oxygen Saturation 98 % 10/01/2024 2:00 EDT Oxygen Saturation 97 % 10/01/2024 2:00 EDT Oxygen Therapy Nasal cannula 0L-6L Oxygen Flow Rate 2 L/min 10/01/2024 1:30 EDT Oxygen Saturation 97 % 10/01/2024 1:00 EDT Oxygen Saturation 97 % 10/01/2024 0:30 EDT Oxygen Saturation 96 % 10/01/2024 0:00 EDT Oxygen Saturation 96 % 10/01/2024 0:00 EDT Oxygen Therapy Nasal cannula 0L-6L Oxygen Flow Rate 2 L/min . Mental status: Continued sedation for medical necessity. Respiratory function. Respiratory support: airway in place oral airway in place, ventilator Ventilator settings from flowsheet. CV function: Stable. Cardiovascular support: none. Pain: Sedated. Nausea status: Not Assessed. Postoperative hydration status: within normal limits. Notes: Continued sedation for medical necessity.. Digitally Signed by YORDAN DALE MD on 10/02/2024 07:56 PM [id number] Note* Exam Date Time Procedure Performing Provider Status 10/02/24 10:02 AM YESSENIA in [facility] YORDAN DALE MD; Auth (Verified) [id number] Progress note Date of Service 10/01/2024 Subjective Sam states that he is just feeling very stiff this morning. Denies any chest pain or shortness of breath. States he is having difficulty moving and does not understand why. When I try to discuss his tricuspid valve surgery due to endocarditis and informed him that Dr. Messina discussed with his mother this weekend about having the procedure done tomorrow to have his tricuspid valve replaced and that his mom was okay with that he stated what ever mom wants, she gets. Denies any other complaints today. Objective Vitals and Measurements T: 37.1 C (Oral) TMIN: 36.5 C (Oral) TMAX: 37.6 C (Oral) HR: 110 (Monitored) RR: 26 BP: 125/92 SpO2: 100% Intake and Output 7AM Yesterday to 7AM Today Intake and Output (Last 24 hours) Intake Oral Intake 3130.00 Administration Information 2613.15 Supplement Intake 0.00 Output Urinary Catheter Output: 1050.00 Stool Count 0.00 Urine Count 5.00 Diaper Count 5.00 Total Summary Total Intake 5743.15 Total Output 1050.00 Fluid Balance 4693.15 Physical Exam General: alert, cooperative, pleasant, lying in bed, no acute distress HEENT: Normocephalic, atraumatic, hearing grossly intact, no scleral icterus, mucosal membranes moist Neck: Supple, trachea midline, no carotid bruit Pulm: Clear to auscultation bilaterally, coarse lung sounds bilateral bases, no rhonchi, rales or wheeze, no accessory muscle use Heart: +S1/S2, regular rate and rhythm, systolic murmur best heard left lower sternal border, no rubs or gallops Abdomen: Soft, nontender, no distention Extremities: Nontender, no edema, clubbing or cyanosis, freely moving all 4 extremities Neurological: Alert awake oriented 3, able to follow commands and answers questions appropriately.,CN II-XII grossly intact Skin: warm, dry, intact, no signs of ecchymosis, hemorrhage or breakage in skin Weight Dosing Weight: 55.2 kg (09/22/24) Medications Medications (21) Active Scheduled: (9) albuterol 0.083% Soln UD (2.5mg/3 mL) 2.5 mg 3 mL, Inhalation, BIDRT ceFAZolin syringe 2 gram(s) 20 mL, IV Push (INT), q8hr metronidazole PMX 500 mg 100 mL, IV Piggyback, q8hr mupirocin 2% Ointment 22 Gram(s) tube 1 kendrick, Nostril, each, BID No prasugrel (Effient) 7 days before surgery 1 EA, Miscellaneous, Daily NO vitamin E, clopidogrel (Plavix) 5 days before surgery 1 EA, Miscellaneous, Daily pantoprazole 40 mg VIAL 40 mg, IV Push, qDayAC polyethylene glycol 3350 - UD packet 17 gram(s) 15 mL, Oral, qDay senna 8.6 mg Tablet 8.6 mg 1 tab(s), Oral, qDay Continuous: (5) dexmedetomidine 1,000 mcg [0.4 mcg/kg/hr] + Sodium Chloride 0.9% 240 mL 240 mL, Intravenous, 5.52 mL/hr Dextrose 5% in Water 1,000 mL 1,000 mL, Intravenous, 75 mL/hr insulin regular 100 unit(s) + NS Premix Diluent 100 mL 100 mL, Intravenous ketamine 1,000 mg [1 mg/kg/hr] + Sodium Chloride 0.9% 90 mL 90 mL, Intravenous, 5.52 mL/hr norepinephrine 8 mg [5 mcg/min] + NS Premix Diluent 250 mL 250 mL, Intravenous, 9.38 mL/hr PRN: (7) acetaminophen 325 mg Tablet 650 mg 2 tab(s), Oral, q4h acetaminophen 500 mg Tablet 500 mg 1 tab(s), Oral, q6h albuterol 0.083% Soln UD (2.5mg/3 mL) 2.5 mg 3 mL, Inhalation, q2hRT dextrose 50% Solution Disp syringe 50 mL 25 g 50 mL, IV Push, AsDirected insulin regular human recombinant 100 units/ml (10 mL) Solution sliding scale insulin, Subcutaneous, q4h oxycodone 5 mg tablet (immediate release) 5 mg 1 tab(s), Oral, q4h sodium chloride 3% Inhalation Soln 4 mL 75 mg 2.5 mL, Inhalation, BIDRT Lab Results 10/01 08:21 WBC: 14.7 H Hgb: 7.3 L Hct: 22.3 L Platelet: 42 L Neutrophil %: 85.8 H Glucose Level: 112 H Sodium Level: 144 Potassium Level: 3.9 BUN: 27.0 H Creatinine Lvl (s): 0.89 09/30 07:23 WBC: 15.1 H Hgb: 8.1 L Hct: 25.8 L Platelet: 74 L Glucose Level: 154 H Sodium Level: 148 H Potassium Level: 3.1 L BUN: 33.0 H Creatinine Lvl (s): 0.96 EKG No qualifying data available. Assessment/Plan Anemia Bacteremia Endocarditis of tricuspid valve IV drug abuse S/P TVR (tricuspid valve replacement) Septic pulmonary embolism Sinus tachycardia Staphylococcus aureus bacteremia Thrombocytopenia Tobacco use 1. Tricuspid valve endocarditis secondary to IV drug use 2. History of tricuspid valve endocarditis with tricuspid valve replacement currently with endocarditis 3. Septic pulmonary embolus 4. Staph aureus bacteremia 5. Tobacco abuse 6. Acute respiratory failure status post ventilator with extubation and currently on supplemental O2 Plan: 1. Antibiotics per primary team. 2. Question whether or not patient is going to have tricuspid valve replacement redo surgery tomorrow versus being transferred to [facility] for vegectomy. CT surgery to discuss with patient today in greater detail. 3. Will reevaluate postoperatively if he has procedure here to determine if patient needs any antihypertensive. Blood pressure 149/102 today. Question whether this is due to actual hypotension or pain. Will continue to monitor Digitally Signed by SANJAY FERNANDEZ PA-C on 10/01/2024 03:49 PM [id number] Anesthesiology Consult note Patient: SAM JIMENEZ Age: 29 years Sex: Male : 1995 Associated Diagnoses: None Author: YORDAN DALE MD Preoperative Information Greater than 8 hours for solids Anesthesia history Patient's history: negative. Family's history: negative. History of Present Illness The patient presents for preanesthesia evaluation with tricuspid valve endocarditis. Review of Systems Ear/Nose/Mouth/Throat Respiratory Cardiovascular Gastrointestinal Genitourinary Endocrine Musculoskeletal Integumentary Neurologic Health Status Allergies: Allergic Reactions (Selected) NKA, Allergies (1) ActiveSeverityReaction NKANone Documented Current medications: (Selected) Inpatient Medications Ordered Adrenalin 4 mg + Normal Saline 250 mL: Infuse as directed for CVOR, Intravenous, Stop: 10/02/24 22:59:00 EDT Cardioplegic [place]: 1,052.8 mL, 0 mL/hr, Miscellaneous, Once D5W 1,000 mL: 75 mL/hr, Intravenous Dextrose 50% IV Push: 25 gram(s), 50 mL, IV Push, AsDirected, PRN: Low blood sugar Flagyl IVPB: 500 mg, 100 mL, 100 mL/hr, IV Piggyback, q8hr Heparin 10,000 units/mL: 10,000 unit(s), 1 mL, mL/hr, Miscellaneous, PREOP pharm Hypertonic Sodium Chloride 3% (Inhalation): 75 mg, 2.5 mL, Inhalation, BIDRT, PRN: Respiratory distress Kefzol: 2 gram(s), 20 mL, 240 mL/hr, IV Push (INT), PREOP pharm Miralax Powder Packet: 17 gram(s), 15 mL, Oral, qDay NS Irrigation Bottle 500 mL + cefuroxime 1.5 gram(s): As Directed in CVOR, Topical (CONT), Stop: 10/03/24 5:59:00 EDT No Vitamin E,clopidogrel (Plavix), 5 days before surgery: 1 EA, Miscellaneous, Daily No prasugrel (Effient) 7 days before surgery: 1 EA, Miscellaneous, Daily PHARMACY TO DOSE: 1 EA, Miscellaneous, Daily Peridex 0.12% oral rinse liquid: 15 mL, Oral, BID Tylenol: 500 mg, 1 tab(s), Oral, q6h, PRN: Fever Tylenol: 650 mg, 2 tab(s), Oral, q4h, PRN: Pain, non-cardiac albuterol 2.5 mg/3 mL (0.083%) inhalation solution: 2.5 mg, 3 mL, Inhalation, BIDRT albuterol 2.5 mg/3 mL (0.083%) inhalation solution: 2.5 mg, 3 mL, Inhalation, q2hRT, PRN: Shortnessof breath or wheezing ceFAZolin: 2 gram(s), 20 mL, 240 mL/hr, IV Push (INT), q8hr insulin regular 100 unit(s) + Normal Saline 100 mL: Infuse as directed for CVOR, Intravenous, Stop:10/02/24 22:59:00 EDT mupirocin 2% topical ointment: 1 kendrick, Nostril, each, BID norepinephrine 8 mg + Normal Saline 250 mL: Infuse as directed for CVOR, Intravenous, Stop: 10/02/24 22:59:00 EDT oxyCODONE 5 mg oral tablet ( IMMEDIATE release ): 5 mg, 1 tab(s), Oral, q4h, PRN: Pain, scale 7-10 senna (sennosides) 8.6 mg oral tablet: 8.6 mg, 1 tab(s), Oral, qDay tranexamic acid 1 gram(s): As directed in CVOR, IV Piggyback, Stop: 10/02/24 23:59:00 EDT tranexamic acid 1 gram(s): As directed in CVOR, IV Piggyback, Stop: 10/02/24 23:59:00 EDT tranexamic acid 1 gram(s): As directed in CVOR, IV Piggyback, Stop: 10/02/24 23:59:00 EDT vancomycin IVPB: 1,000 mg, 250 mL, 250 mL/hr, IV Piggyback, PREOP pharm vancomycin: 10 gram(s), 100 mL, Miscellaneous, prep pharm Prescriptions Prescribed Narcan 4 mg/0.1 mL nasal spray: 4 mg, 1 spray(s), Intranasal, AsDirected, may repeat every 2 to 3 minutes until patient responds, PRN: see pharmacy notes, 2 EA, 0 Refill(s), Medications (29) Active Scheduled: (15) albuterol 0.083% Soln UD (2.5mg/3 mL) 2.5 mg 3 mL, Inhalation, BIDRT cardioplegic [place] formula 1,052.8 mL, Miscellaneous, Once ceFAZolin syringe 2 gram(s) 20 mL, IV Push (INT), PREOP pharm ceFAZolin syringe 2 gram(s) 20 mL, IV Push (INT), q8hr chlorhexidine topical 0.12% Liquid (60 mL) 15 mL, Oral, BID heparin 10,000 unit(s) 1 mL, Miscellaneous, PREOP pharm metronidazole PMX 500 mg 100 mL, IV Piggyback, q8hr mupirocin 2% Ointment 22 Gram(s) tube 1 kendrick, Nostril, each, BID No prasugrel (Effient) 7 days before surgery 1 EA, Miscellaneous, Daily NO vitamin E, clopidogrel (Plavix) 5 days before surgery 1 EA, Miscellaneous, Daily Pharmacy To Dose 1 EA, Miscellaneous, Daily polyethylene glycol 3350 - UD packet 17 gram(s) 15 mL, Oral, qDay senna 8.6 mg Tablet 8.6 mg 1 tab(s), Oral, qDay vancomycin 10 g REC (100 mg/1 mL dilution) 10 gram(s) 100 mL, Miscellaneous, prep pharm vancomycin in NS PMX 1,000 mg 250 mL, IV Piggyback, PREOP pharm Continuous: (8) Dextrose 5% in Water 1,000 mL 1,000 mL, Intravenous, 75 mL/hr epinephrine 4 mg + Sodium Chloride 0.9% 250 mL 250 mL, Intravenous insulin regular 100 unit(s) + Sodium Chloride 0.9% 100 mL 100 mL, Intravenous norepinephrine 8 mg + Sodium Chloride 0.9% 250 mL 250 mL, Intravenous Sodium Chloride 0.9% IRR 500 mL + cefuroxime 1.5 gram(s) 500 mL, Topical (CONT) tranexamic acid PMX 1 gram(s) , IV Piggyback tranexamic acid PMX 1 gram(s) , IV Piggyback tranexamic acid PMX 1 gram(s) , IV Piggyback PRN: (6) acetaminophen 325 mg Tablet 650 mg 2 tab(s), Oral, q4h acetaminophen 500 mg Tablet 500 mg 1 tab(s), Oral, q6h albuterol 0.083% Soln UD (2.5mg/3 mL) 2.5 mg 3 mL, Inhalation, q2hRT dextrose 50% Solution Disp syringe 50 mL 25 gram(s) 50 mL, IV Push, AsDirected oxycodone 5 mg tablet (immediate release) 5 mg 1 tab(s), Oral, q4h sodium chloride 3% Inhalation Soln 4 mL 75 mg 2.5 mL, Inhalation, BIDRT Problem list: Medical Anemia / SNOMED CT 785319146 / Confirmed Bacteremia / SNOMED CT 36340510 / Confirmed IV drug abuse / SNOMED CT 099495034 / Confirmed Septic pulmonary embolism / SNOMED CT 1420611595 / Confirmed Sinus tachycardia / SNOMED CT 81938146 / Confirmed Endocarditis of tricuspid valve / SNOMED CT 822223957 / Confirmed, Active Problems (9) Anemia Bacteremia Endocarditis of tricuspid valve Hepatitis C IV drug abuse Overdose Septic pulmonary embolism Sinus tachycardia Tobacco use Histories Past Medical History: Resolved History of MRSA infection ([id number]): Onset on 04/28/2023 at 28 years. Resolved on 10/01/2024 at 29years. Comments: 10/01/2024 EDT 8:57 RICHARD - CANDELARIO De Luna Removed MRSA disease alert from 2023 per infection control protocol 10/01/24. Family History: History is unknown. Procedure history: Thoracentesis ([id number]) on 05/05/2022 at 27 Years. Transesophageal echocardiogram ([id number]) on 04/20/2022 at 27 Years. Comments: 06/14/2022 14:41 Lisa Andre MA (ABR-OE) 1. Left ventricle: The cavity size is normal. Wall thickness is normal. Systolic function is normal. 2. Aortic valve: There is no evidence of a vegetation. 3. Mitral valve: There is no evidence of vegetation. 4. Left atrium: There is no evidence of a thrombus in the atrial cavity or appendage. 5. Pulmonic valve: There is no evidence of a vegetation. 6. Tricuspid valve: There is a large, 0.7 cm (W) x 1.1 cm (L), mobile vegetation on the right atrial aspect of the anterior leaflet. There is a slightly smaller mobile vegetation of the RA aspect of the posterior leaflet aswell. 7. Right atrium: There is no evidence of a thrombus in the atrial cavity or appendage. 8. Atrial septum: No defect or patent foramen ovale is identified. Echo contrast study following anincrease in RA pressure induced by provocative maneuvers, shows no [id number] atrial level shunt. [id number] Echocardiogram ([id number]) on 04/14/2022 at 27 Years. Comments: 06/14/2022 14:44 Lisa Andre MA (ABR-OE) 1. Left ventricle: The cavity size is normal. Wall thickness is normal. Systolic function is normal. The estimated ejection fraction is 50-55%. Mild hypokinesis of the anteroseptal and anterior myocardium. 2. Right ventricle: The RV systolic pressure by Doppler is 27 mm Hg. 3. Tricuspid valve: There is a vegetation. There is mild regurgitation. CT angiography of chest with contrast ([id number]) on 04/13/2022 at 27 Years. Comments: 06/14/2022 14:44 Lisa Andre MA (ABR-OE) 1. No evidence of pulmonary embolus or right ventricular strain. 2. Interval development of multiple nodules, predominantly cavitary, suggestive of septic emboli or inflammatory process, with malignancy felt to be much less likely. 3. Emphysema. CT angiography of chest with contrast ([id number]) on 12/06/2019 at 24 Years. Comments: 06/14/2022 14:47 Lisa Andre MA (ABR-OE) No pulmonary emboli or dissection. Diffuse central and perihilar groundglass opacities which are nonspecific, however may correlate todrug-induced lung disease or vaping. Evidence of prior granulomatous disease and areas of subpleural emphysema. Hernia ([id number]). Social History: Social & Psychosocial Habits Alcohol 09/22/2024 Use: Never Substance Abuse 09/22/2024 Use: Current Type: Heroin Frequency: 1-2 times per week Previous treatment: None Started at age: 20 Years IV drug use: Yes Has drug use interfered with your work or home life: No Ready to change: Yes Concerns about substance abuse in household: No 09/22/2024 Use: Past Comment: Currently not doing Heroin - 06/16/2022 14:36 - Lisa Leary Tobacco 09/22/2024 Tobacco Use: 10 or more cigarettes (1/ Nutrition/Health 09/22/2024 Caffeine intake amount: 1 serving daily Physical Examination Vital Signs 10/02/2024 6:17 EDT Apical Heart Rate 113 bpm HI 10/02/2024 4:48 EDT Apical Heart Rate 112 bpm [place] 10/02/2024 4:30 EDT Respiratory Rate 39 br/min >HHI 10/02/2024 4:30 EDT Temperature Oral 37.4 DegC HI Systolic Blood Pressure Non-Invasive 143 mmHg HI Diastolic Blood Pressure Non-Invasive 103 mmHg >HHI Mean Arterial Pressure (NBP) 114 mmHg Reason For Taking VItal Signs Routine 10/02/2024 2:25 EDT Heart Rate Monitored 109 bpm HI Respiratory Rate 27 br/min [place] 10/02/2024 1:30 EDT Heart Rate Monitored 107 bpm [place] 10/02/2024 1:30 EDT Temperature Oral 37 DegC Respiratory Rate 24 br/min HI Systolic Blood Pressure Non-Invasive 135 mmHg Diastolic Blood Pressure Non-Invasive 98 mmHg HI Reason For Taking VItal Signs 1 hour post transfusion Signs/Symptoms Transfusion Reaction No 10/02/2024 0:33 EDT Temperature Oral 36.9 DegC Peripheral Pulse Rate 109 bpm HI Respiratory Rate 24 br/min HI Systolic Blood Pressure 123 mmHg Diastolic Blood Pressure 103 mmHg CRIT 10/02/2024 0:31 EDT Systolic Blood Pressure Non-Invasive 123 mmHg Diastolic Blood Pressure Non-Invasive 103 mmHg >HHI Mean Arterial Pressure (NBP) 110 mmHg 10/02/2024 0:31 EDT Heart Rate Monitored 111 bpm HI Respiratory Rate 23 br/min [place] 10/02/2024 0:30 EDT Signs/Symptoms Transfusion Reaction No 10/02/2024 0:30 EDT Heart Rate Monitored 110 bpm [place] 10/02/2024 0:30 EDT Temperature Oral 36.9 DegC Respiratory Rate 24 br/min HI Systolic Blood Pressure Non-Invasive 123 mmHg Diastolic Blood Pressure Non-Invasive 103 mmHg >HHI 10/02/2024 0:15 EDT Temperature Oral 37.1 DegC Heart Rate Monitored 115 bpm HI Respiratory Rate 22 br/min HI Systolic Blood Pressure Non-Invasive 137 mmHg Diastolic Blood Pressure Non-Invasive 106 mmHg >HHI Mean Arterial Pressure (NBP) 116 mmHg Signs/Symptoms Transfusion Reaction No 10/02/2024 0:09 EDT Respiratory Rate 26 br/min [place] 10/02/2024 0:09 EDT Temperature Oral 37.1 DegC Heart Rate Monitored 115 bpm HI Systolic Blood Pressure Non-Invasive 137 mmHg Diastolic Blood Pressure Non-Invasive 106 mmHg >HHI Mean Arterial Pressure (NBP) 116 mmHg Reason For Taking VItal Signs 1 hour post transfusion Signs/Symptoms Transfusion Reaction No 10/02/2024 0:08 EDT Heart Rate Monitored 115 bpm HI Systolic Blood Pressure Non-Invasive 139 mmHg Diastolic Blood Pressure Non-Invasive 107 mmHg >HHI Mean Arterial Pressure (NBP) 118 mmHg 10/02/2024 0:08 EDT Respiratory Rate 22 br/min HI 10/02/2024 0:01 EDT Heart Rate Monitored 115 bpm HI Respiratory Rate 25 br/min HI 10/02/2024 0:00 EDT Peripheral Pulse Rate 114 bpm HI Reason For Taking VItal Signs Routine Signs/Symptoms Transfusion Reaction No Signs/Symptoms Transfusion Reaction No 10/01/2024 23:50 EDT Temperature Oral In Error DegC (In Error) Respiratory Rate In Error br/min (In Error) Systolic Blood Pressure Non-Invasive In Error mmHg (In Error) Diastolic Blood Pressure Non-Invasive In Error mmHg (In Error) Mean Arterial Pressure (NBP) In Error mmHg (In Error) Reason For Taking VItal Signs In Error (In Error) Signs/Symptoms Transfusion Reaction No 10/01/2024 23:45 EDT Temperature Oral 36.8 DegC Respiratory Rate 12 br/min LOW Systolic Blood Pressure Non-Invasive 142 mmHg HI Diastolic Blood Pressure Non-Invasive 96 mmHg HI Mean Arterial Pressure (NBP) 110 mmHg Reason For Taking VItal Signs 15 min post start of transfusion 10/01/2024 23:12 EDT Temperature Oral 36.8 DegC Respiratory Rate 19 br/min Systolic Blood Pressure Non-Invasive 142 mmHg HI Diastolic Blood Pressure Non-Invasive 100 mmHg >HHI Mean Arterial Pressure (NBP) 113 mmHg Blood Pressure Method Automatic Blood Pressure Location Left arm Blood Pressure Cuff Size Medium Reason For Taking VItal Signs Pre-transfusion 10/01/2024 23:10 EDT Temperature Oral 37.0 DegC Peripheral Pulse Rate 113 bpm HI Respiratory Rate 20 br/min Systolic Blood Pressure 143 mmHg HI Diastolic Blood Pressure 106 mmHg CRIT 10/01/2024 23:09 EDT Signs/Symptoms Transfusion Reaction No 10/01/2024 23:01 EDT Signs/Symptoms Transfusion Reaction No 10/01/2024 22:31 EDT Signs/Symptoms Transfusion Reaction No 10/01/2024 22:01 EDT Signs/Symptoms Transfusion Reaction No 10/01/2024 21:58 EDT Temperature Oral 36.8 DegC Respiratory Rate 19 br/min Systolic Blood Pressure Non-Invasive 133 mmHg Diastolic Blood Pressure Non-Invasive 101 mmHg >HHI 10/01/2024 21:46 EDT Temperature Oral 37.1 DegC Heart Rate Monitored 121 bpm HI Respiratory Rate 20 br/min Systolic Blood Pressure Non-Invasive 133 mmHg Diastolic Blood Pressure Non-Invasive 101 mmHg >HHI Mean Arterial Pressure (NBP) 110 mmHg Blood Pressure Method Automatic Reason For Taking VItal Signs 15 min post start of transfusion Signs/Symptoms Transfusion Reaction No 10/01/2024 21:10 EDT Temperature Oral 37.1 DegC Respiratory Rate 20 br/min Systolic Blood Pressure Non-Invasive 142 mmHg HI Diastolic Blood Pressure Non-Invasive 97 mmHg HI Mean Arterial Pressure (NBP) 110 mmHg Blood Pressure Method Automatic Blood Pressure Location Left arm Blood Pressure Cuff Size Medium Reason For Taking VItal Signs Pre-transfusion 10/01/2024 20:21 EDT Temperature Oral 37.0 DegC Heart Rate Monitored 124 bpm HI Respiratory Rate 24 br/min HI Systolic Blood Pressure Non-Invasive 135 mmHg Diastolic Blood Pressure Non-Invasive 99 mmHg HI Reason For Taking VItal Signs Admission 10/01/2024 19:53 EDT Heart Rate Monitored 119 bpm HI Respiratory Rate 35 br/min >HHI 10/01/2024 19:53 EDT Systolic Blood Pressure Non-Invasive 139 mmHg Diastolic Blood Pressure Non-Invasive 101 mmHg >HHI Reason For Taking VItal Signs Routine 10/01/2024 19:52 EDT Heart Rate Monitored 119 bpm HI Respiratory Rate 32 br/min >HHI 10/01/2024 18:25 EDT Respiratory Rate 25 br/min [place] 10/01/2024 18:25 EDT Peripheral Pulse Rate 111 bpm [place] 10/01/2024 18:24 EDT Respiratory Rate 21 br/min [place] 10/01/2024 15:45 EDT Heart Rate Monitored 104 bpm HI Respiratory Rate 32 br/min >HHI 10/01/2024 15:45 EDT Temperature Oral 36.9 DegC Systolic Blood Pressure Non-Invasive 133 mmHg Diastolic Blood Pressure Non-Invasive 102 mmHg >HHI Reason For Taking VItal Signs Routine 10/01/2024 15:44 EDT Heart Rate Monitored 104 bpm HI Respiratory Rate 27 br/min [place] 10/01/2024 13:00 EDT Heart Rate Monitored 107 bpm [place] 10/01/2024 13:00 EDT Temperature Oral 36.9 DegC Respiratory Rate 33 br/min >[facility] Systolic Blood Pressure Non-Invasive 143 mmHg HI Diastolic Blood Pressure Non-Invasive 89 mmHg Mean Arterial Pressure (NBP) 111 mmHg Reason For Taking VItal Signs Routine 10/01/2024 12:59 EDT Heart Rate Monitored 107 bpm HI Respiratory Rate 32 br/min >HHI 10/01/2024 12:53 EDT Heart Rate Monitored 104 bpm HI Respiratory Rate 35 br/min >I 10/01/2024 11:00 EDT Heart Rate Monitored 110 bpm HI Respiratory Rate 26 br/min [place] 10/01/2024 11:00 EDT Temperature Oral 37.1 DegC Systolic Blood Pressure Non-Invasive 125 mmHg Diastolic Blood Pressure Non-Invasive 92 mmHg HI Mean Arterial Pressure (NBP) 101 mmHg Reason For Taking VItal Signs Routine 10/01/2024 9:00 EDT Heart Rate Monitored 106 bpm HI Respiratory Rate 42 br/min >I 10/01/2024 9:00 EDT Temperature Oral 37.2 DegC Systolic Blood Pressure Non-Invasive 149 mmHg HI Diastolic Blood Pressure Non-Invasive 102 mmHg >[facility] Mean Arterial Pressure (NBP) 114 mmHg Reason For Taking VItal Signs Routine 10/01/2024 8:52 EDT Heart Rate Monitored 107 bpm HI Respiratory Rate 41 br/min >I 10/01/2024 7:00 EDT Heart Rate Monitored 103 bpm HI Respiratory Rate 36 br/min >[facility] 10/01/2024 7:00 EDT Temperature Oral 37.6 DegC HI Systolic Blood Pressure Non-Invasive 141 mmHg HI Diastolic Blood Pressure Non-Invasive 85 mmHg Mean Arterial Pressure (NBP) 100 mmHg Reason For Taking VItal Signs Routine 10/01/2024 6:59 EDT Peripheral Pulse Rate 104 bpm HI Respiratory Rate 25 br/min [place] 10/01/2024 6:58 EDT Respiratory Rate 39 br/min >I 10/01/2024 5:30 EDT Heart Rate Monitored 95 bpm Respiratory Rate 41 br/min >[facility] 10/01/2024 5:30 EDT Systolic Blood Pressure Non-Invasive 137 mmHg Diastolic Blood Pressure Non-Invasive 92 mmHg HI Mean Arterial Pressure (NBP) 104 mmHg Reason For Taking VItal Signs Routine 10/01/2024 5:00 EDT Heart Rate Monitored 98 bpm Respiratory Rate 29 br/min [place] 10/01/2024 5:00 EDT Systolic Blood Pressure Non-Invasive 117 mmHg Diastolic Blood Pressure Non-Invasive 99 mmHg HI Mean Arterial Pressure (NBP) 106 mmHg 10/01/2024 4:30 EDT Heart Rate Monitored 94 bpm Respiratory Rate 31 br/min >HHI 10/01/2024 4:30 EDT Systolic Blood Pressure Non-Invasive 135 mmHg Diastolic Blood Pressure Non-Invasive 85 mmHg Mean Arterial Pressure (NBP) 98 mmHg 10/01/2024 4:00 EDT Heart Rate Monitored 91 bpm Respiratory Rate 39 br/min >HHI 10/01/2024 4:00 EDT Temperature Oral 36.5 DegC Systolic Blood Pressure Non-Invasive 141 mmHg HI Diastolic Blood Pressure Non-Invasive 101 mmHg >HHI Mean Arterial Pressure (NBP) 111 mmHg Reason For Taking VItal Signs Routine 10/01/2024 3:30 EDT Heart Rate Monitored 90 bpm Respiratory Rate 36 br/min >HHI 10/01/2024 3:30 EDT Systolic Blood Pressure Non-Invasive 144 mmHg HI Diastolic Blood Pressure Non-Invasive 97 mmHg HI Mean Arterial Pressure (NBP) 109 mmHg 10/01/2024 3:00 EDT Heart Rate Monitored 88 bpm Respiratory Rate 38 br/min >HHI 10/01/2024 3:00 EDT Systolic Blood Pressure Non-Invasive 139 mmHg Diastolic Blood Pressure Non-Invasive 94 mmHg HI Mean Arterial Pressure (NBP) 106 mmHg 10/01/2024 2:30 EDT Heart Rate Monitored 88 bpm Respiratory Rate 39 br/min >HHI 10/01/2024 2:30 EDT Systolic Blood Pressure Non-Invasive 138 mmHg Diastolic Blood Pressure Non-Invasive 90 mmHg HI Mean Arterial Pressure (NBP) 103 mmHg 10/01/2024 2:00 EDT Heart Rate Monitored 94 bpm Respiratory Rate 41 br/min >HHI 10/01/2024 2:00 EDT Systolic Blood Pressure Non-Invasive 129 mmHg Diastolic Blood Pressure Non-Invasive 82 mmHg Mean Arterial Pressure (NBP) 96 mmHg Reason For Taking VItal Signs Routine 10/01/2024 1:30 EDT Heart Rate Monitored 98 bpm Respiratory Rate 34 br/min >HHI 10/01/2024 1:30 EDT Systolic Blood Pressure Non-Invasive 126 mmHg Diastolic Blood Pressure Non-Invasive 79 mmHg Mean Arterial Pressure (NBP) 92 mmHg 10/01/2024 1:00 EDT Heart Rate Monitored 84 bpm Respiratory Rate 38 br/min >HHI 10/01/2024 1:00 EDT Systolic Blood Pressure Non-Invasive 129 mmHg Diastolic Blood Pressure Non-Invasive 81 mmHg Mean Arterial Pressure (NBP) 95 mmHg 10/01/2024 0:30 EDT Heart Rate Monitored 87 bpm Respiratory Rate 38 br/min >I 10/01/2024 0:30 EDT Systolic Blood Pressure Non-Invasive 125 mmHg Diastolic Blood Pressure Non-Invasive 82 mmHg Mean Arterial Pressure (NBP) 95 mmHg 10/01/2024 0:00 EDT Heart Rate Monitored 85 bpm Respiratory Rate 38 br/min >I 10/01/2024 0:00 EDT Systolic Blood Pressure Non-Invasive 133 mmHg Diastolic Blood Pressure Non-Invasive 83 mmHg Mean Arterial Pressure (NBP) 97 mmHg Reason For Taking VItal Signs Routine Vital Signs (last 24 hrs) Last Charted Temp OralH 37.4 DegC (OCT 02 04:30) Heart Rate ApicalH 113 bpm (OCT 02 06:17) SBPH 143 mmHg (OCT 02 04:30) DBPC 103mmHg (OCT 02 04:30) General: Alert and oriented. Airway: Normal temporomandibular joint mobility, Normal mouth, Normal throat, Normal neck range of motion, Trachea midline. Mallampati classification: II (soft palate, fauces, uvula visible). Dentition Evaluation: Intact. Neck: Full range of motion. Respiratory: Lungs are clear to auscultation, Breath sounds are equal. Cardiovascular: Normal rate, Regular rhythm, No murmur. Heart Sounds: Normal. Neurologic: Alert, Oriented. Review / Management Results review: Labs (Last four charted values) WBC H 13.6(SEP 17)H 14.7(SEP 16)H 15.1(SEP 15)H 14.0(SEP 14) Hgb L 11.3(SEP 17)L 7.3(JOES ENRIQUE 16)L 8.1(JOSE ENRIQUE 15)L 7.2(JOSE ENRIQUE 14) Hct L 35.2(JOSE ENRIQUE 17)L 22.3(JOSE ENRIQUE 16)L 25.8(JOSE ENRIQUE 15)L 22.1(JOSE ENRIQUE 14) Plt L 54(JOSE ENRIQUE 17)L 62(JOSE ENRIQUE 16)L 42(JOSE ENRIQUE 16)L 74(SEP 15) Na 139(SEP 17)144(JOSE ENRIQUE 16)H 148(JOSE ENRIQUE 15)H 156(JOSE ENRIQUE 14) K L 3.0(JOSE ENRIQUE 17)3.9(JOSE ENRIQUE 16)L 3.1(JOSE ENRIQUE 15)L 3.3(JOSE ENRIQUE 14) CO2 22(JOSE ENRIQUE 17)22(JOSE ENRIQUE 16)L 21(JOSE ENRIQUE 15)24(JOSE ENRIQUE 14) Cl 106(JOSE ENRIQUE 17)110(JOSE ENRIQUE 16)H 112(JOSE ENRIQUE 15)H 118(JOSE ENRIQUE 14) Cr 0.77(JOSE ENRIQUE 17)0.89(JOSE ENRIQUE 16)0.96(JOSE ENRIQUE 15)H 1.44(JOSE ENRIQUE 14) BUN 15.0(JOSE ENRIQUE 17)H 27.0(JOSE ENRIQUE 16)H 33.0(JOSE ENRIQUE 15)H 65.0(JOSE ENRIQUE 14) Glucose 104(JOSE ENRIQUE 17)H 112(JOSE ENRIQUE 16)H 154(JOSE ENRIQUE 15)H 142(JOSE ENRIQUE 14) Mg L 1.4(JOSE ENRIQUE 17)1.9(JOSE ENRIQUE 15)2.4(JOSE ENRIQUE 14)H 2.9(JOSE ENRIQUE 13) Ca L 7.8(JOSE ENRIQUE 17)L 7.5(JOSE ENRIQUE 16)L 7.9(JOSE ENRIQUE 15)L 7.8(JOSE ENRIQUE 14) PT H 19.9(JOSE ENRIQUE 16)H 20.6(SEP 07) INR 1.7(JOSE ENRIQUE 16)1.8(SEP 07) PTT 31.5(JOSE ENRIQUE 16)34.3(SEP 07) Total CK H 716(SEP 13)H 1261(SEP 12)91(SEP 08) . Documentation reviewed: Current records. Assessment and Plan [place] [employer] (ASA) physical status classification: Class III. Anesthetic Preoperative Plan Premedication: intravenous. Anesthetic technique: General. Induction: intravenously. Maintenance airway: Oral endotracheal tube. Special techniques. Special Monitoring: Arterial line, Central venous catheter, Continuous transesophageal echocardiogram. Postoperative pain management: Per surgeon. Risks discussed. Informed consent: signed by patient. Beta Leidy Digitally Signed by YORDAN DALE MD on 10/02/2024 07:07 [id number] Progress note Date of Service 10/01/2024 Kym Vargas states that he is just feeling very stiff this morning. Denies any chest pain or shortness of breath. States he is having difficulty moving and does not understand why. When I try to discuss his tricuspid valve surgery due to endocarditis and informed him that Dr. Anastasi discussed with his mother this weekend about having the procedure done tomorrow to have his tricuspid valve replaced and that his mom was okay with that he stated what ever mom wants, she gets. Denies any other complaints today. Objective Vitals and Measurements T: 37.1 C (Oral) TMIN: 36.5 C (Oral) TMAX: 37.6 C (Oral) HR: 110 (Monitored) RR: 26 BP: 125/92 SpO2: 100% Intake and Output 7AM Yesterday to 7AM Today Intake and Output (Last 24 hours) Intake Oral Intake 3130.00 Administration Information 2613.15 Supplement Intake 0.00 Output Urinary Catheter Output: 1050.00 Stool Count 0.00 Urine Count 5.00 Diaper Count 5.00 Total Summary Total Intake 5743.15 Total Output 1050.00 Fluid Balance 4693.15 Physical Exam General: alert, cooperative, pleasant, lying in bed, no acute distress HEENT: Normocephalic, atraumatic, hearing grossly intact, no scleral icterus, mucosal membranes moist Neck: Supple, trachea midline, no carotid bruit Pulm: Clear to auscultation bilaterally, coarse lung sounds bilateral bases, no rhonchi, rales or wheeze, no accessory muscle use Heart: +S1/S2, regular rate and rhythm, systolic murmur best heard left lower sternal border, no rubs or gallops Abdomen: Soft, nontender, no distention Extremities: Nontender, no edema, clubbing or cyanosis, freely moving all 4 extremities Neurological: Alert awake oriented 3, able to follow commands and answers questions appropriately.,CN II-XII grossly intact Skin: warm, dry, intact, no signs of ecchymosis, hemorrhage or breakage in skin Weight Dosing Weight: 55.2 kg (09/22/24) Medications Medications (21) Active Scheduled: (9) albuterol 0.083% Soln UD (2.5mg/3 mL) 2.5 mg 3 mL, Inhalation, BIDRT ceFAZolin syringe 2 gram(s) 20 mL, IV Push (INT), q8hr metronidazole PMX 500 mg 100 mL, IV Piggyback, q8hr mupirocin 2% Ointment 22 Gram(s) tube 1 kendrick, Nostril, each, BID No prasugrel (Effient) 7 days before surgery 1 EA, Miscellaneous, Daily NO vitamin E, clopidogrel (Plavix) 5 days before surgery 1 EA, Miscellaneous, Daily pantoprazole 40 mg VIAL 40 mg, IV Push, qDayAC polyethylene glycol 3350 - UD packet 17 gram(s) 15 mL, Oral, qDay senna 8.6 mg Tablet 8.6 mg 1 tab(s), Oral, qDay Continuous: (5) dexmedetomidine 1,000 mcg [0.4 mcg/kg/hr] + Sodium Chloride 0.9% 240 mL 240 mL, Intravenous, 5.52 mL/hr Dextrose 5% in Water 1,000 mL 1,000 mL, Intravenous, 75 mL/hr insulin regular 100 unit(s) + NS Premix Diluent 100 mL 100 mL, Intravenous ketamine 1,000 mg [1 mg/kg/hr] + Sodium Chloride 0.9% 90 mL 90 mL, Intravenous, 5.52 mL/hr norepinephrine 8 mg [5 mcg/min] + NS Premix Diluent 250 mL 250 mL, Intravenous, 9.38 mL/hr PRN: (7) acetaminophen 325 mg Tablet 650 mg 2 tab(s), Oral, q4h acetaminophen 500 mg Tablet 500 mg 1 tab(s), Oral, q6h albuterol 0.083% Soln UD (2.5mg/3 mL) 2.5 mg 3 mL, Inhalation, q2hRT dextrose 50% Solution Disp syringe 50 mL 25 g 50 mL, IV Push, AsDirected insulin regular human recombinant 100 units/ml (10 mL) Solution sliding scale insulin, Subcutaneous, q4h oxycodone 5 mg tablet (immediate release) 5 mg 1 tab(s), Oral, q4h sodium chloride 3% Inhalation Soln 4 mL 75 mg 2.5 mL, Inhalation, BIDRT Lab Results 10/01 08:21 WBC: 14.7 H Hgb: 7.3 L Hct: 22.3 L Platelet: 42 L Neutrophil %: 85.8 H Glucose Level: 112 H Sodium Level: 144 Potassium Level: 3.9 BUN: 27.0 H Creatinine Lvl (s): 0.89 09/30 07:23 WBC: 15.1 H Hgb: 8.1 L Hct: 25.8 L Platelet: 74 L Glucose Level: 154 H Sodium Level: 148 H Potassium Level: 3.1 L BUN: 33.0 H Creatinine Lvl (s): 0.96 EKG No qualifying data available. Assessment/Plan Anemia Bacteremia Endocarditis of tricuspid valve IV drug abuse S/P TVR (tricuspid valve replacement) Septic pulmonary embolism Sinus tachycardia Staphylococcus aureus bacteremia Thrombocytopenia Tobacco use 1. Tricuspid valve endocarditis secondary to IV drug use 2. History of tricuspid valve endocarditis with tricuspid valve replacement currently with endocarditis 3. Septic pulmonary embolus 4. Staph aureus bacteremia 5. Tobacco abuse 6. Acute respiratory failure status post ventilator with extubation and currently on supplemental O2 Plan: 1. Antibiotics per primary team. 2. Question whether or not patient is going to have tricuspid valve replacement redo surgery tomorrow versus being transferred to [facility] for vegectomy. CT surgery to discuss with patient today in greater detail. 3. Will reevaluate postoperatively if he has procedure here to determine if patient needs any antihypertensive. Blood pressure 149/102 today. Question whether this is due to actual hypotension or pain. Will continue to monitor Digitally Signed by SANJAY FERNANDEZ PA-C on 10/01/2024 03:49 PM [id number] Nurse Progress note All student nurse charting was reviewed and agreed with by Alexander Thornton RN. Digitally Signed by Alexander Thornton RN on 09/28/2024 02:18 PM [id number] Nurse Progress note reviewed and discussed nursing students charting. Digitally Signed by Salima Tran Silversmith Apprentice on 09/28/2024 12:26 PM [id number] Cardiothoracic surgery Consult note Date of Service 09/26/2024 Reason for Consultation Tricuspid valve endocarditis Referring Physician Dr. Deshapnde History of Present Illness This is a split shared visit with Dr. Messina This is a 29-year-old male with past medical history of IV drug use, tricuspid valve endocarditis status post tricuspid valve replacement in 2023 at the [facility], MRSA bacteremia in the past who presented to [facility] emergency department with shortness of breath and chestpain on 09/22/2024. CTA of the chest was obtained that showed numerous persistent cavitary pulmonary nodules that were questionable for septic emboli although look decreased in size from his previous CT in April 2023. He was treated with 3 L of IV fluid and antibiotics were initiated. He was transferred here for further evaluation and upon arrival here was somnolent having slurred speech and was d ifficult to arouse. He was intubated. Currently on a ketamine drip. His WBC count was up to 22,000 and later peaked at 28,000. His toxicology screen was positive for amphetamines and cannabinoids. Lactic acid was 8.5, later as high as 13.4. Today lactic acid down to 1.7.Blood cultures from 09/22/2024through 09/24/2024 positive for Staph aureus. An echocardiogram on 09/23/2024 showed a large mobile vegetation on the anterior leaflet of the tricuspid valve measuring 0.6 cm x 1.6 cm along with severe tricuspid stenosis and severe tricuspid regurgitation. YESSENIA is pending. We are being asked to evaluate patient for tricuspid valve endocarditis CT of the head was negative for any acute findings 04/23/2024 CT of the abdomen is pending STS risk calculation Operative Mortality 12.1% Morbidity & Mortality 65.8% Stroke 3.51% Renal Failure 34.2% Reoperation 16.6% Prolonged Ventilation 63% Deep Sternal Wound Infection 0.545% Long Hospital Stay (>14 days) 77.6% Short Hospital Stay (<6 days)* 1.69% Review of Systems Unable to perform review of systems as patient is sedated and intubated. Pertinent positives noted in the HPI above were obtained from the patient's chart and medical history Physical Exam Vitals and Measurements T: 36.8 C (Oral) TMIN: 36.8 C (Oral) TMAX: 38.2 C (Oral) HR: 111 (Monitored) RR: 18 BP: 126/82 SpO2: 95% Weight Dosing Weight: 55.2 kg (09/22/24) Mentation sedated on dopamine drip, opens eyes occasionally to verbal and tactile stimuli does not follow commands at present HEENT head is atraumatic, normocephalic, dentition poor, no carotid bruit audible, trachea is midline Heart S1 and S2 sinus tachycardia in the low 100s, 3 to 4+/6 diastolic murmur audible at the fifth intercostal space. Lungs diminished on expiration, oral endotracheal tube to the vent, assist- control of 18, respiratory rate 22, tidal volume 500, FiO2 30%, 5 cm of PEEP Abdomen flat soft nontender bowel sounds present, hyperactive. Orogastric tube with tube feeds infusing at 25 mL an hour external catheter draining dark lela cloudy Extremities are perfused, brisk capillary refill bilateral great toes Neuro occasional movement of the left arm to painful stimuli Skin no rashes skin intact Lab Results 09/26 05:42 Hgb: 8.1 L Hct: 24.9 L 09/26 03:03 WBC: 16.8 H Hgb: 6.0 C Hct: 18.0 L Platelet: 93 L Glucose Level: 133 H Sodium Level: 150 H Potassium Level: 4.8 BUN: 92.0 H Creatinine Lvl (s): 1.99 H 09/25 11:44 Glucose Level: 72 Sodium Level: 147 H Potassium Level: 5.6 H BUN: 81.0 H Creatinine Lvl (s): 1.68 H 09/25 07:05 Potassium Level: 5.3 H Assessment/Plan 1. Endocarditis of tricuspid valve 2. Staphylococcus aureus bacteremia 3. IV drug abuse 4. S/P TVR (tricuspid valve replacement) 5. Septic pulmonary embolism 6. Thrombocytopenia 7. Sinus tachycardia Plan: Surgical evaluation to follow per Dr. Messina Apparently transfer to [facility] is pending secondary to patient being on mechanical ventilation (per the [facility]) Problem List/Past Medical History Ongoing Anemia Bacteremia Endocarditis of tricuspid valve IV drug abuse Septic pulmonary embolism Sinus tachycardia Procedure/Surgical History Thoracentesis: 05/05/22 Transesophageal echocardiogram: 04/20/22 Echocardiogram: 04/14/22 CT angiography of chest with contrast: 04/13/22 CT angiography of chest with contrast: 12/06/19 Medications Inpatient albuterol 2.5 mg/3 mL (0.083%) inhalation solution, 2.5 mg= 3 mL, Inhalation, q2hRT, PRN albuterol 2.5 mg/3 mL (0.083%) inhalation solution, 2.5 mg= 3 mL, Inhalation, q6hRT D5W 1,000 mL, 1000 mL, Intravenous DAPTOmycin Dextrose, 25 gram(s)= 50 mL, IV Push, AsDirected, PRN fentaNYL for IV 1,250 mcg [25 mcg/hr] + NS PMX titrate 250 mL HumuLIN R, sliding scale insulin, Subcutaneous, q4h, PRN Hypertonic Sodium Chloride 3% (Inhalation), 75 mg= 2.5 mL, Inhalation, q6hRT Insulin Regular for IV 100 unit(s) + NS Premix Diluent 100 mL ketamine for IV 1,000 mg [1 mg/kg/hr] + sodium chloride 0.9% IV solution (T) 90 mL nafcillin Norepinephrine for IV 8 mg [5 mcg/min] + NS PMX titrate 250 mL Peridex 0.12% oral rinse liquid, 15 mL, Swish & Spit, QID Propofol for IV 1,000 mg [10 mcg/kg/min] + IV Premix Diluent titrate 100 mL Protonix, 40 mg, IV Push, qDayAC Puralube ophth solution, 1 drop(s), Eyes, both, q8h Puralube ophth solution, 1 drop(s), Eyes, both, AsDirected, PRN Puralube ophthalmic ointment, 1 kendrick, Eyes, both, q8h Puralube ophthalmic ointment, 1 kendrick, Eyes, both, AsDirected, PRN Sublimaze, 25 mcg= 0.5 mL, IV Push, q15min, PRN Teflaro IVPB Home Narcan 4 mg/0.1 mL nasal spray, 4 mg= 1 spray(s), Intranasal, AsDirected, PRN Allergies NKA Social History Smoking Status - 12/25/2015 Current every day smoker Alcohol Use: Never., 06/16/2022 Nutrition/Health Caffeine intake amount: 1 serving daily., 06/16/2022 Substance Abuse Use: Past., 06/16/2022 Use: Current. Type: Heroin. Frequency: 1-2 times per week. Previous treatment: None. Started at age: 20 Years. IV drug use; Yes. Has drug use interfered with your work or home life? No. Ready to change: Yes. Concerns about substance abuse in household: No., 12/06/2019 Tobacco Tobacco Use: 10 or more cigarettes (1/2 pack or more)/day in last 30 days., 02/18/2019 Family History Family history is unknown Immunizations hepatitis B pediatric vaccine: 0 unknown unit (05/26/00) Digitally Signed by ALVARO CARRILLO on 09/26/2024 03:37 PM [facility] [id number] Note* Exam Date Time Procedure Performing Provider Status 09/27/24 3:12 PM Transesophageal Echo cardiogram - CV DEJA DOW MD; Auth (Verified) [facility] [id number] Cardiothoracic surgery Consult note Date of Service 09/26/2024 Reason for Consultation Tricuspid valve endocarditis Referring Physician Dr. Deshpande History of Present Illness This is a split shared visit with Dr. Messina This is a 29-year-old male with past medical history of IV drug use, tricuspid valve endocarditis status post tricuspid valve replacement in 2023 at the [facility], MRSA bacteremia in the past who presented to [facility] emergency department with shortness of breath and chestpain on 09/22/2024. CTA of the chest was obtained that showed numerous persistent cavitary pulmonary nodules that were questionable for septic emboli although look decreased in size from his previous CT in April 2023. He was treated with 3 L of IV fluid and antibiotics were initiated. He was transferred here for further evaluation and upon arrival here was somnolent having slurred speech and was d ifficult to arouse. He was intubated. Currently on a ketamine drip. His WBC count was up to 22,000and later peaked at 28,000. His toxicology screen was positive for amphetamines and cannabinoids. Lactic acid was 8.5, later as high as 13.4. Today lactic acid down to 1.7.Blood cultures from 09/22/2024 through 09/24/2024 positive for Staph aureus. An echocardiogram on 09/23/2024 showed a large mobile vegetation on the anterior leaflet of the tricuspid valve measuring 0.6 cm x 1.6 cm along with severe tricuspid stenosis and severe tricuspid regurgitation. YESSENIA is pending. We are being asked to evaluate patient for tricuspid valve endocarditis CT of the head was negative for any acute findings 04/23/2024 CT of the abdomen is pending STS risk calculation Operative Mortality 12.1% Morbidity & Mortality 65.8% Stroke 3.51% Renal Failure 34.2% Reoperation 16.6% Prolonged Ventilation 63% Deep Sternal Wound Infection 0.545% Long Hospital Stay (>14 days) 77.6% Short Hospital Stay (<6 days)* 1.69% Review of Systems Unable to perform review of systems as patient is sedated and intubated. Pertinent positives noted in the HPI above were obtained from the patient's chart and medical history Physical Exam Vitals and Measurements T: 36.8 C (Oral) TMIN: 36.8 C (Oral) TMAX: 38.2 C (Oral) HR: 111 (Monitored) RR: 18 BP: 126/82 SpO2: 95% Weight Dosing Weight: 55.2 kg (09/22/24) Mentation sedated on dopamine drip, opens eyes occasionally to verbal and tactile stimuli does not follow commands at present HEENT head is atraumatic, normocephalic, dentition poor, no carotid bruit audible, trachea is midline Heart S1 and S2 sinus tachycardia in the low 100s, 3 to 4+/6 diastolic murmur audible at the fifth intercostal space. Lungs diminished on expiration, oral endotracheal tube to the vent, assist- control of 18, respiratory rate 22, tidal volume 500, FiO2 30%, 5 cm of PEEP Abdomen flat soft nontender bowel sounds present, hyperactive. Orogastric tube with tube feeds infusing at 25 mL an hour external catheter draining dark lela cloudy Extremities are perfused, brisk capillary refill bilateral great toes Neuro occasional movement of the left arm to painful stimuli Skin no rashes skin intact Lab Results 09/26 05:42 Hgb: 8.1 L Hct: 24.9 L 09/26 03:03 WBC: 16.8 H Hgb: 6.0 C Hct: 18.0 L Platelet: 93 L Glucose Level: 133 H Sodium Level: 150 H Potassium Level: 4.8 BUN: 92.0 H Creatinine Lvl (s): 1.99 H 09/25 11:44 Glucose Level: 72 Sodium Level: 147 H Potassium Level: 5.6 H BUN: 81.0 H Creatinine Lvl (s): 1.68 H 09/25 07:05 Potassium Level: 5.3 H Assessment/Plan 1. Endocarditis of tricuspid valve 2. Staphylococcus aureus bacteremia 3. IV drug abuse 4. S/P TVR (tricuspid valve replacement) 5. Septic pulmonary embolism 6. Thrombocytopenia 7. Sinus tachycardia Plan: Surgical evaluation to follow per Dr. Messina Apparently transfer to [facility] is pending secondary to patient being on mechanical ventilation (per the [facility]) Problem List/Past Medical History Ongoing Anemia Bacteremia Endocarditis of tricuspid valve IV drug abuse Septic pulmonary embolism Sinus tachycardia Procedure/Surgical History Thoracentesis: 05/05/22 Transesophageal echocardiogram: 04/20/22 Echocardiogram: 04/14/22 CT angiography of chest with contrast: 04/13/22 CT angiography of chest with contrast: 12/06/19 Medications Inpatient albuterol 2.5 mg/3 mL (0.083%) inhalation solution, 2.5 mg= 3 mL, Inhalation, q2hRT, PRN albuterol 2.5 mg/3 mL (0.083%) inhalation solution, 2.5 mg= 3 mL, Inhalation, q6hRT D5W 1,000 mL, 1000 mL, Intravenous DAPTOmycin Dextrose, 25 gram(s)= 50 mL, IV Push, AsDirected, PRN fentaNYL for IV 1,250 mcg [25 mcg/hr] + NS PMX titrate 250 mL HumuLIN R, sliding scale insulin, Subcutaneous, q4h, PRN Hypertonic Sodium Chloride 3% (Inhalation), 75 mg= 2.5 mL, Inhalation, q6hRT Insulin Regular for IV 100 unit(s) + NS Premix Diluent 100 mL ketamine for IV 1,000 mg [1 mg/kg/hr] + sodium chloride 0.9% IV solution (T) 90 mL nafcillin Norepinephrine for IV 8 mg [5 mcg/min] + NS PMX titrate 250 mL Peridex 0.12% oral rinse liquid, 15 mL, Swish & Spit, QID Propofol for IV 1,000 mg [10 mcg/kg/min] + IV Premix Diluent titrate 100 mL Protonix, 40 mg, IV Push, qDayAC Puralube ophth solution, 1 drop(s), Eyes, both, q8h Puralube ophth solution, 1 drop(s), Eyes, both, AsDirected, PRN Puralube ophthalmic ointment, 1 kendrick, Eyes, both, q8h Puralube ophthalmic ointment, 1 kendrick, Eyes, both, AsDirected, PRN Sublimaze, 25 mcg= 0.5 mL, IV Push, q15min, PRN Teflaro IVPB Home Narcan 4 mg/0.1 mL nasal spray, 4 mg= 1 spray(s), Intranasal, AsDirected, PRN Allergies NKA Social History Smoking Status - 12/25/2015 Current every day smoker Alcohol Use: Never., 06/16/2022 Nutrition/Health Caffeine intake amount: 1 serving daily., 06/16/2022 Substance Abuse Use: Past., 06/16/2022 Use: Current. Type: Heroin. Frequency: 1-2 times per week. Previous treatment: None. Started at age: 20 Years. IV drug use; Yes. Has drug use interfered with your work or home life? No. Ready to change: Yes. Concerns about substance abuse in household: No., 12/06/2019 Tobacco Tobacco Use: 10 or more cigarettes (1/2 pack or more)/day in last 30 days., 02/18/2019 Family History Family history is unknown Immunizations hepatitis B pediatric vaccine: 0 unknown unit (05/26/00) Digitally Signed by ALVARO CARRILLO APRN-[employer] TE[employer]ER on 09/26/2024 03:37 PM [facility] [id number] Note* Exam Date Time Procedure Performing Provider Status 09/26/24 1:36 PM Electrocardiogram - EKG - CV LIBIA BELCHER MD; Auth (Verified) ECG Final Report Sinus tachycardia Consider right ventricular hypertrophy Electronic Signature: LIBIA BELCHER MD 09/27/2024 14:33:53 [facility] [id number] Note. MICRO - Microbiology PROCEDURE: Blood Culture (bacterial) [*1] SOURCE: Blood BODY SITE: COLLECTED DATE/TIME: 09/22/2024 07:19 EDT RECEIVED DATE/TIME: 09/22/2024 11:53 EDT START DATE/TIME: 09/22/2024 11:54 EDT FREE TEXT SOURCE: FINAL REPORTS Final Report [] Verified Date/Time/Personnel: 09/26/2024 10:47 EDT Staphylococcus aureus Isolated from aerobe and anaerobe bottles. Refer to previous culture for susceptibility. [phone] Staphylococcus aureus #2 Isolated from aerobe and anaerobe bottles. Refer to previous culture for susceptibility. [id number] Streptococcus mitis/oralis group Isolated from aerobe and anaerobe bottles. Refer to previous culture for susceptibility. [id number] PRELIMINARY REPORTS Preliminary Report [] Verified Date/Time/Personnel: 09/25/2024 11:50 EDT Staphylococcus aureus Isolated from aerobe and anaerobe bottles. Refer to previous culture for susceptibility. [id number] Staphylococcus aureus #2 Isolated from aerobe and anaerobe bottles. Refer to previous culture for susceptibility. [id number] Streptococcus mitis/oralis group Isolated from aerobe and anaerobe bottles. Final report to follow. Preliminary Report [] Verified Date/Time/Personnel: 09/25/2024 08:51 EDT Staphylococcus aureus Isolated from aerobe and anaerobe bottles. Refer to previous culture for susceptibility. [id number] Staphylococcus aureus #2 Isolated from aerobe and anaerobe bottles. Refer to previous culture for susceptibility. [phone] Final report to follow. Preliminary Report [] Verified Date/Time/Personnel: 09/24/2024 11:28 EDT Staphylococcus aureus Isolated from aerobe and anaerobe bottles. Refer to previous culture for susceptibility. [id number] Staphylococcus aureus #2 Isolated from aerobe and anaerobe bottles. Final report to follow. Preliminary Report [] Verified Date/Time/Personnel: 09/22/2024 12:59 EDT Culture has been received in lab and is no growth to date. Routine cultures are held for 5 days. STAINS GSANA [] Verified Date/Time/Personnel: 09/22/2024 18:36 EDT Gram Positive Cocci GSAER [] Verified Date/Time/Personnel: 09/22/2024 17:15 EDT Gram Positive Cocci MICRO - Microbiology SUSCEPTIBILITY RESULTS Streptococcus mitis/oralis group Antibiotic LOY Dilut LOY Inter ID Panel Not Not Applicable Applicable Performing Locations *1: This test was performed at: [address], [facility] , [facility]06-11-2025 Note. MICRO - Microbiology PROCEDURE: Blood Culture (bacterial) [*1] SOURCE: Blood BODY SITE: COLLECTED DATE/TIME: 09/22/2024 07:19 EDT RECEIVED DATE/TIME: 09/22/2024 11:53 EDT START DATE/TIME: 09/22/2024 11:54 EDT FREE TEXT SOURCE: FINAL REPORTS Final Report [] Verified Date/Time/Personnel: 09/26/2024 10:46 EDT Staphylococcus aureus Isolated from aerobe and anaerobe bottles. Staphylococcus aureus #2 Isolated from aerobe and anaerobe bottles. Streptococcus mitis/oralis group Isolated from anaerobe bottle only. PRELIMINARY REPORTS Preliminary Report [] Verified Date/Time/Personnel: 09/25/2024 11:49 EDT Staphylococcus aureus Isolated from aerobe and anaerobe bottles. Staphylococcus aureus #2 Isolated from aerobe and anaerobe bottles. Streptococcus mitis/oralis group Isolated from anaerobe bottle only. LOY to follow Preliminary Report [] Verified Date/Time/Personnel: 09/25/2024 08:49 EDT Staphylococcus aureus Isolated from aerobe and anaerobe bottles. Staphylococcus aureus #2 Isolated from aerobe and anaerobe bottles. Final report to follow. Preliminary Report [] Verified Date/Time/Personnel: 09/24/2024 09:39 EDT Staphylococcus aureus Isolated from aerobe and anaerobe bottles. Staphylococcus aureus #2 Isolated from aerobe and anaerobe bottles. LOY to follow Preliminary Report [] Verified Date/Time/Personnel: 09/23/2024 09:25 EDT Staphylococcus aureus Isolated from aerobe and anaerobe bottles. LOY to follow Preliminary Report [] Verified Date/Time/Personnel: 09/22/2024 12:59 EDT Culture has been received in lab and is no growth to date. Routine cultures are held for 5 days. STAINS GSANA [] Verified Date/Time/Personnel: 09/22/2024 18:36 EDT Gram Positive Cocci GSAER [] Verified Date/Time/Personnel: 09/22/2024 16:57 EDT Gram Positive Cocci SUSCEPTIBILITY RESULTS Staphylococcus aureus Antibiotic LOY Dilut LOY Inter Ampicillin/ <=8/4 Susceptible Sulbactam Azithromycin <=2 Susceptible MICRO - Microbiology SUSCEPTIBILITY RESULTS Staphylococcus aureus Antibiotic LOY Dilut LOY Inter Cefazolin <=8 Susceptible Ceftriaxone <=4 Susceptible Ciprofloxacin <=1 Susceptible Clindamycin <=0.25 Susceptible Erythromycin <=0.25 Susceptible ID Panel Not Not Applicable Applicable Levofloxacin <=1 Susceptible Oxacillin <=0.25 Susceptible Penicillin <=0.03 Susceptible Tetracycline <=4 Susceptible Trimethoprim/ <=0.5/9.5 Susceptible Sulfa Vancomycin 0.5 Susceptible Staphylococcus aureus #2 Antibiotic LOY Dilut LOY Inter Ampicillin/ <=8/4 Susceptible Sulbactam Azithromycin <=2 Susceptible Cefazolin <=8 Susceptible Ceftriaxone <=4 Susceptible Ciprofloxacin <=1 Susceptible Clindamycin <=0.25 Susceptible Erythromycin <=0.25 Susceptible Levofloxacin <=1 Susceptible Oxacillin <=0.25 Susceptible Penicillin <=0.03 Susceptible Tetracycline <=4 Susceptible Trimethoprim/ <=0.5/9.5 Susceptible Sulfa Vancomycin 0.5 Susceptible Streptococcus mitis/oralis group Antibiotic LYO Dilut LOY Inter Ampicillin 0.12 Susceptible Azithromycin <=0.25 Susceptible Ceftriaxone <=0.25 Susceptible Clindamycin <=0.06 Susceptible ID Panel Not Not Applicable Applicable Levofloxacin 1 Susceptible Meropenem <=0.06 Susceptible Penicillin 0.12 Susceptible Tetracycline 1 Susceptible Vancomycin 1 Susceptible Performing Locations *1: This test was performed at: [facility], [address] [place] [address], [facility] , [facility]06-10-2025 Infectious disease Consult note Date of Service 09/25/24 Reason for Consultation Prosthetic tricuspid valve endocarditis Referring Physician Dr. Mccall History of Present Illness This patient is 29 [id number] male with prior history of IV drug use and Staph aureus endocarditis of prosthetic valve 2023. He is status post tricuspid valve replacement at [facility] last year. He presented emergency room with complaints of fevers, generalized weakness and fatigue. Radiographic workup was concerning for numerous persistent cavitary pulmonary nodules.Initial labs on presentation with elevated white count of 22,000, transaminase elevation, lactic of 8.5. The patient required intubation due to increased work of breathing and required initiation of pressor support. During this admission, he was noted to have high- grade MSSA bacteremia and abnormal echocardiogram that revealed a large mobile vegetation on the anterior leaflet of tricuspid valve. ID was consulted for antimicrobial management Review of Systems Nonverbal, intubated, 10 point review of system was unobtainable Physical Exam Vitals and Measurements T: 38.9 C (Oral) TMIN: 36.5 C (Oral) TMAX: 38.9 C (Oral) HR: 118 (Monitored) RR: 24 BP: 136/74 SpO2: 86% Weight Dosing Weight: 55.2 kg (09/22/24) General Appearance: Intubated, nonverbal HEENT: Normocephaly. No acute new musculoskeletal findings of infection Neck: Normal without lymphadenopathy Cardiac: Heart regular rhythm Lungs: Clear Abdomen: Soft, non-tender, non-distended Extremities:Warm without clubbing, cyanosis or edema. Neurological: No deficits Skin: Warm, dry, intact. No rashes Psychiatric: No abnormal behaviors Lab Results 09/25 11:44 Glucose Level: 72 Sodium Level: 147 H Potassium Level: 5.6 H BUN: 81.0 H Creatinine Lvl (s): 1.68 H 09/25 07:05 Potassium Level: 5.3 H 09/25 02:36 WBC: 22.3 H Hgb: 8.3 L Hct: 24.8 L Platelet: 110 L Neutrophil %: 81.6 H Glucose Level: 76 Sodium Level: 148 H Potassium Level: 5.3 H BUN: 90.0 H Creatinine Lvl (s): 1.96 H 09/24 07:15 WBC: 28.6 H Hgb: 8.8 L Hct: 26.2 L Platelet: 101 L Glucose Level: 103 Sodium Level: 145 Potassium Level: 4.7 BUN: 91.0 H Creatinine Lvl (s): 1.94 H Imaging Results and Diagnostics XR Chest 1 View Result Date: September 25, 2024 Verified By: YAZMIN COSTA MD CLINICAL STATEMENT: IMPRESSION: Diffuse ground-glass opacities and cavitary nodular lesions with slightlyworsening right lower lobe consolidative changes. Support devices described above. I have personally reviewed the images of this examination and agree with theresident's findings and interpretation. XR Chest 1 View Result Date: September 24, 2024 Verified By: LIDIA BOYKIN MD CLINICAL STATEMENT: IMPRESSION: The endotracheal tube tip has been advanced and is now approximately 5.6 cmabove the jv. The exam is otherwise stable. There is confirmation of left retrocardiacatelectasis or consolidation suspected on the earlier study. This seems carmita an interval change from a radiograph of 615 a.m. earlier today. I have personally reviewed the images of this examination and agree with theresident's findings and interpretation. XR Chest 1 View Result Date: September 24, 2024 Verified By: LIDIA BOYKIN MD CLINICAL STATEMENT: IMPRESSION: No significant interval change in bilateral lung infiltrates. Questionincreasing left retrocardiac/lower lobe density, artifact versus increasingatelectasis. Endotracheal tube is fairly high in position, consider advancing by about 3cm with reimaging for better positioning. XR Chest 1 View Result Date: September 24, 2024 Verified By: WILLY FERNANDES MD CLINICAL STATEMENT: IMPRESSION: 1. Mild improvement in bilateral lung infiltrates.2. Endotracheal tube and enteric tubein satisfactory position. CT Head or Brain w/o Contrast Result Date: September 23, 2024 Verified By: RONNY RAMIREZ MD CLINICAL STATEMENT: IMPRESSION: No acute intracranial abnormality. XR Enteric Tube Placement Result Date: September 22, 2024 Verified By: TYREL WIN MD CLINICAL STATEMENT: IMPRESSION: Enteric tube side port and distal tip projects over the mid stomach. XR Chest 1 View Result Date: September 22, 2024 Verified By: RONNY RAMIREZ MD CLINICAL STATEMENT: IMPRESSION: Endotracheal tube terminates 4.1 cm above the jv. No significant change in lung aeration. I have personally reviewed the images of this examination and agree with theresident's findings and interpretation. XR Chest 1 View Result Date: September 22, 2024 Verified By: RONNY RAMIREZ MD CLINICAL STATEMENT: IMPRESSION: Stable bilateral airspace opacities with cavitation. XR Chest 1 View Result Date: September 22, 2024 Verified By: JUNI DIXON MD CLINICAL STATEMENT: IMPRESSION: 1. Increasing diffuse mixed interstitial and airspace opacities. peripheralmore triangular shaped airspace opacity in the right middle lobe. Findingsmay be related to multifocal pneumonia, pulmonary edema and/or ARDS.2. Multiple rounded lucent lesions most likely related to known cavitarynodules. Assessment/Plan High-grade MSSA bacteremia with sepsis Endocarditis of tricuspid valve, history of tricuspid valve replacement last year IV drug use Septic pulmonary emboli lactic acidosis sepsis TAMIE This patient is 29 [id number]-lyd male with prior history of IV drug use and Staph aureus endocarditis of prosthetic valve 2023. He is status post tricuspid valve replacement at [facility] last year. He presented emergency room with complaints of fevers, generalized weakness and fatigue. Radiographic workup was concerning for numerous persistent cavitary pulmonary nodules.Initial labs on presentation with elevated white count of 22,000, transaminase elevation, lactic of 8.5. The patient required intubation due to increased work of breathing and required initiation of pressor support. During this admission, he was noted to have high- grade MSSA bacteremia and abnormal echocardiogram that revealed a large mobile vegetation on the anterior leaflet of tricuspid valve. ID was consulted for antimicrobial management Over the past 24 hours, patient remains on mechanical ventilation in medical ICU. He is febrile andtachycardic. Has persistent bacteremia with last blood cultures on 09/24 that are positive. Lactic level is elevated at 6.2. White count is trending down to 22,000 compared to 28,000 and patient developed TAMIE yesterday with a creatinine 1.9. CT scan of head with no acute intracranial abnormalities CTA chest with no large central pulmonary emboli however did reveal numerous persistent cavitary pulmonary nodules with wide differential diagnosis including sequela of septic emboli, pulmonary infarcts, vasculitis and metastatic disease. Echocardiogram confirms large 0.6 cm into 1.6 cm mobile vegetation on the anterior leaflet of the tricuspid valve, severe tricuspid stenosis . Institute Scientist team did contact [facility] and they will reevaluate the patient for transfer once he is off pressors and extubated. No plans for YESSENIA as patient is a large vegetation noted on TTE with bacteremia. Also recommend CT surgical consultation, In light of the high-grade Staph aureus bacteremia, we will repeat blood cultures in the morning and adjust antibiotics to Teflaro, nafcillin and daptomycin. Will need to monitor CPK levels closely while on daptomycin. Obtain HIV, RPR and acute hepatitis panel, discussed with staff Recommend CT scan of the abdomen pelvis once more stable Patient will require YESSENIA to rule out abscess formation Agree with transfer to [facility] Prognosis is poor, patient remains critically ill with high risk of morbidity and mortality and monitored by the ICU team Thank you for allowing us to see this patient in consultation I was present for Aurora Fox LPN , and personally directed, all components of the patient's complete evaluation and management documented by the scribe today. I have personally examined the patient and reviewed all diagnostic data. I have reviewed all of this documentation by the scribe. It documents the history obtained, examination performed, diagnostic testing results compiled by him/her,and discharge information. We provided service elements including disease transmission risk assessment and mitigation, public health investigation, analysis and testing, and complex antimicrobial therapy counseling and treatment. We discussed ways of infection control and prevention. Risks and benefits of complex antimicrobial therapy was discussed at length with patient and staff. Problem List/Past Medical History Ongoing Anemia Bacteremia Endocarditis of tricuspid valve IV drug abuse Septic pulmonary embolism Sinus tachycardia Procedure/Surgical History Thoracentesis: 05/05/22 Transesophageal echocardiogram: 04/20/22 Echocardiogram: 04/14/22 CT angiography of chest with contrast: 04/13/22 CT angiography of chest with contrast: 12/06/19 Medications Inpatient 0.45S 1,000 mL, 1000 mL, Intravenous albuterol 2.5 mg/3 mL (0.083%) inhalation solution, 2.5 mg= 3 mL, Inhalation, q2hRT, PRN albuterol 2.5 mg/3 mL (0.083%) inhalation solution, 2.5 mg= 3 mL, Inhalation, q6hRT DAPTOmycin Dextrose, 25 gram(s)= 50 mL, IV Push, AsDirected, PRN fentaNYL for IV 1,250 mcg [25 mcg/hr] + NS PMX titrate 250 mL HumuLIN R, sliding scale insulin, Subcutaneous, q4h, PRN Hypertonic Sodium Chloride 3% (Inhalation), 75 mg= 2.5 mL, Inhalation, q6hRT Insulin Regular for IV 100 unit(s) + NS Premix Diluent 100 mL ketamine for IV 1,000 mg [1 mg/kg/hr] + sodium chloride 0.9% IV solution (T) 90 mL nafcillin Norepinephrine for IV 8 mg [5 mcg/min] + NS PMX titrate 250 mL Peridex 0.12% oral rinse liquid, 15 mL, Swish & Spit, QID Propofol for IV 1,000 mg [10 mcg/kg/min] + IV Premix Diluent titrate 100 mL Protonix, 40 mg, IV Push, qDayAC Puralube ophth solution, 1 drop(s), Eyes, both, q8h Puralube ophth solution, 1 drop(s), Eyes, both, AsDirected, PRN Puralube ophthalmic ointment, 1 kendrick, Eyes, both, q8h Puralube ophthalmic ointment, 1 kendrick, Eyes, both, AsDirected, PRN Sublimaze, 25 mcg= 0.5 mL, IV Push, q15min, PRN Teflaro IVPB Home Narcan 4 mg/0.1 mL nasal spray, 4 mg= 1 spray(s), Intranasal, AsDirected, PRN Allergies NKA Social History Smoking Status - 12/25/2015 Current every day smoker Alcohol Use: Never., 06/16/2022 Nutrition/Health Caffeine intake amount: 1 serving daily., 06/16/2022 Substance Abuse Use: Past., 06/16/2022 Use: Current. Type: Heroin. Frequency: 1-2 times per week. Previous treatment: None. Started at age: 20 Years. IV drug use; Yes. Has drug use interfered with your work or home life? No. Ready to change: Yes. Concerns about substance abuse in household: No., 12/06/2019 Tobacco Tobacco Use: 10 or more cigarettes (1/2 pack or more)/day in last 30 days., 02/18/2019 Family History Family history is unknown Immunizations hepatitis B pediatric vaccine: 0 unknown unit (05/26/00) Digitally Signed by TANYA WESTFALL BA, MD on 09/25/2024 05:37 PM Digitally Signed by Aurora Fox Licensed Scribe on 09/25/2024 02:47 PM [id number]. MICRO - Microbiology PROCEDURE: Blood Culture (bacterial) [*1] SOURCE: Blood BODY SITE: COLLECTED DATE/TIME: 09/22/2024 07:41 EDT RECEIVED DATE/TIME: 09/22/2024 11:53 EDT START DATE/TIME: 09/22/2024 11:54 EDT FREE TEXT SOURCE: FINAL REPORTS Final Report [] Verified Date/Time/Personnel: 09/25/2024 13:56 EDT Staphylococcus aureus Isolated from aerobe and anaerobe bottles. Refer to previous culture for susceptibility. [id number] Staphylococcus aureus #2 Isolated from aerobe and anaerobe bottles. Refer to previous culture for susceptibility. [id number] PRELIMINARY REPORTS Preliminary Report [] Verified Date/Time/Personnel: 09/25/2024 08:51 EDT Staphylococcus aureus Isolated from aerobe and anaerobe bottles. Refer to previous culture for susceptibility. [id number] Staphylococcus aureus #2 Isolated from aerobe and anaerobe bottles. Refer to previous culture for susceptibility. [id number] Final report to follow. Preliminary Report [] Verified Date/Time/Personnel: 09/24/2024 11:33 EDT Staphylococcus aureus Isolated from aerobe and anaerobe bottles. Refer to previous culture for susceptibility. [id number] Staphylococcus aureus #2 Isolated from aerobe and anaerobe bottles. Final report to follow. Preliminary Report [] Verified Date/Time/Personnel: 09/22/2024 12:59 EDT Culture has been received in lab and is no growth to date. Routine cultures are held for 5 days. STAINS GSANA [] Verified Date/Time/Personnel: 09/22/2024 18:37 EDT Gram Positive Cocci GSAER [] Verified Date/Time/Personnel: 09/22/2024 17:53 EDT Gram Positive Cocci Performing Locations *1: This test was performed at: [facility], [address] [place] [address], [id number] , [facility]06-08-2025 Note* Exam Date Time Procedure Performing Provider Status 09/23/24 7:01 PM Echocardiogram, Adul t with Bubble Study- PRINCE BIGGS MD; Auth (Verified) [id number] Note Date of Service 09/22/24 Chief Complaint SOB, CP Subjective HO IV drug use, history of tricuspid endocarditis s/p tricuspid valve replacement in 2023, MRSA bacteremia presented to [facility] Emergency Department for shortness of breath and chest pain. Workup at [place] reveals evidence of sepsis secondary to tricuspid endocarditis with septic emboli t hroughout the lungs. He was given vancomycin and Zosyn as well as nearly 3 L of IV normal saline. Apparently was awake and talking at [place] but on arrival here is somnolent, slurred speech, difficult to arouse. At [place] he reported last IV drug use 3 days ago. He does have positive blood cultures for MRSA over 1 year ago. Workup at [place] also revealed elevated white blood cell count at 22,000, platelets low at 40, urinalysis showed no evidence of infection urine drug screen positive for amphetamines and cannabinoids Lactic acid was elevated at 8.5, is downtrending. Nasal swab negative for COVID flu and RSV. LFTs also elevated to the 200s-300s. Troponin 56, 50 ntprobnp 8566 LFTs abnormal - improving Here during my interview woke up for painful stimuli , knows place. No bleeding issues CTA CHEST W CONTRAST 09/22/24 No large central pulmonary emboli within the limits of this exam. Exam severely degraded by patient motion and beam hardening artifact due to positioning. Numerous persistent cavitary pulmonary nodules which are decreased in size from the previous exam. This has a wide differential diagnosis including sequela of septic emboli, pulmonary infarct, vasculitis, or metastatic disease. Emphysema. 09/22/24 SINUS TACHYCARDIA, VR 116 BPM, INCOMPLETE RBBB CXR 09/22/24 1. Increasing diffuse mixed interstitial and airspace opacities. peripheral more triangular shaped airspace opacity in the right middle lobe. Findings may be related to multifocal pneumonia, pulmonary edema and/or ARDS. 2. Multiple rounded lucent lesions most likely related to known cavitary nodules. Objective Vitals and Measurements T: 37.0 C (Oral) TMIN: 36.2 C (Axillary) TMAX: 37.0 C (Oral) HR: 140 (Monitored) RR: 22 BP: 142/86 SpO2: 100% HT: 180 cm WT: 55.2 kg BMI: 17.04 JVP NML, CLEAR LUNGS, NML S1 AND S2 WITHOUT S3; ABD SOFT, NML BOWEL SOUNDS, NO ORGANOMEGALY Intake and Output 7AM Yesterday to 7AM Today Intake and Output (Last 24 hours) Intake Oral Intake 0.00 Administration Information 125.00 Output Urine Voided 550.00 Urinary Catheter Output: 0.00 Stool Count 0.00 Urine Count 1.00 Total Summary Total Intake 125.00 Total Output 550.00 Fluid Balance -425.00 Physical Exam HEENT: No JVD or thyromegaly or cervical adenopathy Respiratory: Clear lungs without rhonchi or crackles, normal equal bilateral breath sounds Cardiac: Normal S1, S2 without murmur, rub, gallop Abdomen: Soft, normal bowel sounds, no organomegaly Neuro: 5 x 5 power all 4 extremities, no facial droop Skin: No rashes or ulcers Psychiatric: Good judgment and insight Musculoskeletal: Good range of motion of both elbows and wrists Extremities: No leg edema, varicose veins, good pedal pulses Weight Dosing Weight: 55.2 kg (09/22/24) Medications Medications (17) Active Scheduled: (8) chlorhexidine topical 0.12% Liquid (60 mL) 15 mL, Swish & Spit, QID Misc communication order 1 EA, Miscellaneous, Daily Misc communication order 1 EA, Miscellaneous, Daily ocular lubricant - Ointment 3.5 gram(s) 1 kendrick, Eyes, both, q8h ocular lubricant preserved Soln 15 mL 1 drop(s), Eyes, both, q8h pantoprazole 40 mg VIAL 40 mg, IV Push, qDayAC piperacillin-tazobactam PMX 3.375 g 70 mL, IV Piggyback, q8h vancomycin in NS PMX 1,000 mg 250 mL, IV Piggyback, q12h Continuous: (3) insulin regular 100 unit(s) + NS Premix Diluent 100 mL 100 mL, Intravenous Lactated Ringers 1,000 mL 1,000 mL, Intravenous, 100 mL/hr propofol 1,000 mg [10 mcg/kg/min] + IV Premix Diluent 100 mL 100 mL, Intravenous, 3.31 mL/hr PRN: (6) dextrose 50% Solution Disp syringe 50 mL 25 g 50 mL, IV Push, AsDirected dextrose 50% Solution Disp syringe 50 mL 25 gram(s) 50 mL, IV Push, AsDirected fentaNYL 50 mcg/mL (1mL) Soln 25 mcg 0.5 mL, IV Push, q15min insulin regular human recombinant 100 units/ml (10 mL) Solution sliding scale insulin, Subcutaneous, q4h ocular lubricant - Ointment 3.5 gram(s) 1 kendrick, Eyes, both, AsDirected ocular lubricant preserved Soln 15 mL 1 drop(s), Eyes, both, AsDirected Lab Results 09/22 12:15 WBC: 26.7 H Hgb: 8.9 L Hct: 26.7 L Platelet: 47 L Protime: 20.6 H PT International Ratio: 1.8 Glucose Level: 115 H Sodium Level: 134 L Potassium Level: 3.7 BUN: 59.0 H Creatinine Lvl (s): 1.07 EKG Electrocardiogram - InProcess -- 09/22/24 11:46:00 EDT, Now Assessment/Plan 1. Sinus tachycardia MONITOR 2. Endocarditis of tricuspid valve ANTIBIOTIC ONCE PLTS>40122 AND WHEN PATIENT AWAKE AND IF NO CI THEN WILL PLAN YESSENIA 3. Septic pulmonary embolism PER CT ANGIO SUSPICION FOR SUCH EXISTS 4. Bacteremia ABX YESSENIA ONCE PLT >29155 AND IF NO CI NOTED AND PATIENT AGREEABLE 5. IV drug abuse 6. Tobacco use COUNSELLED CESSATION 7. Anemia IRON STORES 8. ENCEPHALOPATHY: got ativan before coming here, also from infection? Digitally Signed by VINCENT GILL MD on 09/22/2024 11:25 PM [id number] Note Date of Service 09/22/24 Chief Complaint SOB, CP Subjective HO IV drug use, history of tricuspid endocarditis s/p tricuspid valve replacement in 2023, MRSA bacteremia presented to [facility] Emergency Department for shortness of breath and chest pain. Workup at [place] reveals evidence of sepsis secondary to tricuspid endocarditis with septic emboli t hroughout the lungs. He was given vancomycin and Zosyn as well as nearly 3 L of IV normal saline. Apparently was awake and talking at [place] but on arrival here is somnolent, slurred speech, difficult to arouse. At [place] he reported last IV drug use 3 days ago. He does have positive blood cultures for MRSA over 1 year ago. Workup at [place] also revealed elevated white blood cell count at 22,000, platelets low at 40, urinalysis showed no evidence of infection urine drug screen positive for amphetamines and cannabinoids Lactic acid was elevated at 8.5, is downtrending. Nasal swab negative for COVID flu and RSV. LFTs also elevated to the 200s-300s. Troponin 56, 50 ntprobnp 8566 LFTs abnormal - improving Here during my interview woke up for painful stimuli , knows place. No bleeding issues CTA CHEST W CONTRAST 09/22/24 No large central pulmonary emboli within the limits of this exam. Exam severely degraded by patient motion and beam hardening artifact due to positioning. Numerous persistent cavitary pulmonary nodules which are decreased in size from the previous exam. This has a wide differential diagnosis including sequela of septic emboli, pulmonary infarct, vasculitis, or metastatic disease. Emphysema. 09/22/24 SINUS TACHYCARDIA, VR 116 BPM, INCOMPLETE RBBB CXR 09/22/24 1. Increasing diffuse mixed interstitial and airspace opacities. peripheral more triangular shaped airspace opacity in the right middle lobe. Findings may be related to multifocal pneumonia, pulmonary edema and/or ARDS. 2. Multiple rounded lucent lesions most likely related to known cavitary nodules. Objective Vitals and Measurements T: 37.0 C (Oral) TMIN: 36.2 C (Axillary) TMAX: 37.0 C (Oral) HR: 140 (Monitored) RR: 22 BP: 142/86 SpO2: 100% HT: 180 cm WT: 55.2 kg BMI: 17.04 JVP NML, CLEAR LUNGS, NML S1 AND S2 WITHOUT S3; ABD SOFT, NML BOWEL SOUNDS, NO ORGANOMEGALY Intake and Output 7AM Yesterday to 7AM Today Intake and Output (Last 24 hours) Intake Oral Intake 0.00 Administration Information 125.00 Output Urine Voided 550.00 Urinary Catheter Output: 0.00 Stool Count 0.00 Urine Count 1.00 Total Summary Total Intake 125.00 Total Output 550.00 Fluid Balance -425.00 Physical Exam HEENT: No JVD or thyromegaly or cervical adenopathy Respiratory: Clear lungs without rhonchi or crackles, normal equal bilateral breath sounds Cardiac: Normal S1, S2 without murmur, rub, gallop Abdomen: Soft, normal bowel sounds, no organomegaly Neuro: 5 x 5 power all 4 extremities, no facial droop Skin: No rashes or ulcers Psychiatric: Good judgment and insight Musculoskeletal: Good range of motion of both elbows and wrists Extremities: No leg edema, varicose veins, good pedal pulses Weight Dosing Weight: 55.2 kg (09/22/24) Medications Medications (17) Active Scheduled: (8) chlorhexidine topical 0.12% Liquid (60 mL) 15 mL, Swish & Spit, QID Misc communication order 1 EA, Miscellaneous, Daily Misc communication order 1 EA, Miscellaneous, Daily ocular lubricant - Ointment 3.5 gram(s) 1 kendrick, Eyes, both, q8h ocular lubricant preserved Soln 15 mL 1 drop(s), Eyes, both, q8h pantoprazole 40 mg VIAL 40 mg, IV Push, qDayAC piperacillin-tazobactam PMX 3.375 g 70 mL, IV Piggyback, q8h vancomycin in NS PMX 1,000 mg 250 mL, IV Piggyback, q12h Continuous: (3) insulin regular 100 unit(s) + NS Premix Diluent 100 mL 100 mL, Intravenous Lactated Ringers 1,000 mL 1,000 mL, Intravenous, 100 mL/hr propofol 1,000 mg [10 mcg/kg/min] + IV Premix Diluent 100 mL 100 mL, Intravenous, 3.31 mL/hr PRN: (6) dextrose 50% Solution Disp syringe 50 mL 25 g 50 mL, IV Push, AsDirected dextrose 50% Solution Disp syringe 50 mL 25 gram(s) 50 mL, IV Push, AsDirected fentaNYL 50 mcg/mL (1mL) Soln 25 mcg 0.5 mL, IV Push, q15min insulin regular human recombinant 100 units/ml (10 mL) Solution sliding scale insulin, Subcutaneous, q4h ocular lubricant - Ointment 3.5 gram(s) 1 kendrick, Eyes, both, AsDirected ocular lubricant preserved Soln 15 mL 1 drop(s), Eyes, both, AsDirected Lab Results 09/22 12:15 WBC: 26.7 H Hgb: 8.9 L Hct: 26.7 L Platelet: 47 L Protime: 20.6 H PT International Ratio: 1.8 Glucose Level: 115 H Sodium Level: 134 L Potassium Level: 3.7 BUN: 59.0 H Creatinine Lvl (s): 1.07 EKG Electrocardiogram - InProcess -- 09/22/24 11:46:00 EDT, Now Assessment/Plan 1. Sinus tachycardia MONITOR 2. Endocarditis of tricuspid valve ANTIBIOTIC ONCE PLTS>99291 AND WHEN PATIENT AWAKE AND IF NO CI THEN WILL PLAN YESSENIA 3. Septic pulmonary embolism PER CT ANGIO SUSPICION FOR SUCH EXISTS 4. Bacteremia ABX YESSENIA ONCE PLT >81524 AND IF NO CI NOTED AND PATIENT AGREEABLE 5. IV drug abuse 6. Tobacco use COUNSELLED CESSATION 7. Anemia IRON STORES 8. ENCEPHALOPATHY: got ativan before coming here, also from infection? Digitally Signed by VINCENT GILL MD on 09/22/2024 11:25 PM [id number] History and physical note Date of Service 09/22/2024 History of Present Illness 29-year-old male with past medical history of IV drug use, history of tricuspid endocarditis s/p tricuspid valve replacement in 2023, MRSA bacteremia presented to [facility] Emergency Department for shortness of breath and chest pain. Workup at [place] reveals evidence of sepsis secondary totricuspid endocarditis with septic emboli throughout the lungs. He was given vancomycin and Zosyn as well as nearly 3 L of IV normal saline. Apparently was awake and talking at [place] but on arrival here is somnolent, slurred speech, difficult to arouse. At [place] he reported last IV drug use 3days ago. He does have positive blood cultures for MRSA over 1 year ago. Workup at [place] also revealed elevated white blood cell count at 22,000, platelets low at 40, urinalysis showed no evidence of infection, urine drug screen positive for amphetamines and cannabinoids, CT scan of the chest revealed tricuspid vegetations and cavitary lesions throughout the lungs consistent with septic emboli. Lactic acid was elevated at 8.5, is downtrending. Nasal swab negative for COVID flu and RSV. LFTs also elevated to the 200s-300s. Troponin 56. Review of Systems Unable to obtain due to patient mental status. Physical Exam Vitals and Measurements T: 36.4 C (Axillary) HR: 110 (Monitored) RR: 36 BP: 111/76 SpO2: 100% HT: 180 cm WT: 55.2 kg BMI: 17.04 Weight Dosing Weight: 55.2 kg (09/22/24) General: Somnolent, difficult to arouse, oriented x 2 HEENT: Normocephalic, atraumatic, PERRL, EOMI Neck: Trachea midline, soft, no meningeal signs Cardiovascular: Tachycardic, regular rhythm, no audible murmurs Pulmonary: Tachypneic, clear to auscultation bilaterally Abdomen: Soft, nontender, nondistended Musculoskeletal: No obvious deformities, able to move limbs freely, no signs of redness or swelling Extremities: Peripheral pulses intact, no significant lower extremity edema Neurologic: Cranial nerves II through XII grossly intact, moves all extremities equally Skin: Warm, dry, multiple well-healing scars and lesions, track mejia present on bilateral upper extremities Psych: somnolent, difficult to arouse Lab Results 09/22 12:15 WBC: 26.7 H Hgb: 8.9 L Hct: 26.7 L Platelet: 47 L Protime: 20.6 H PT International Ratio: 1.8 Glucose Level: 115 H Sodium Level: 134 L Potassium Level: 3.7 BUN: 59.0 H Creatinine Lvl (s): 1.07 Imaging Results and Diagnostics XR Chest 1 View Result Date: September 22, 2024 Verified By: JUNI DIXON MD CLINICAL STATEMENT: IMPRESSION: 1. Increasing diffuse mixed interstitial and airspace opacities. peripheralmore triangular shaped airspace opacity in the right middle lobe. Findingsmay be related to multifocal pneumonia, pulmonary edema and/or ARDS.2. Multiple rounded lucent lesions most likely related to known cavitarynodules. Assessment/Plan Assessment: 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 Metabolic encephalopathy secondary to above Lactic acidosis Anemia Thrombocytopenia Acute liver injury History of tricuspid endocarditis s/p valve replacement History of IV drug use History of MRSA bacteremia DVT prophylaxis GI prophylaxis CODE STATUS Plan: Continue Vancomycin and Zosyn, monitor blood cultures Cardiology consulted, echo ordered Monitor lactic acid every 6 until normalized, maintenance LR at 100 mL/h SCDs for DVT prophylaxis, hold anticoagulation in the setting of thrombocytopenia NPO until mental status improves, protonix IC for GI ppx Monitor for signs of withdrawal, airway compromise FULL CODE Plan of care discussed with Dr. Deshpande Problem List/Past Medical History Ongoing Bacteremia Endocarditis of tricuspid valve IV drug abuse Procedure/Surgical History Thoracentesis: 05/05/22 Transesophageal echocardiogram: 04/20/22 Echocardiogram: 04/14/22 CT angiography of chest with contrast: 04/13/22 CT angiography of chest with contrast: 12/06/19 Medications Home Medications (1) Active Narcan 4 mg/0.1 mL nasal spray 4 mg = 1 spray(s), PRN, Intranasal, AsDirected Allergies NKA Social History Smoking Status - 12/25/2015 Current every day smoker Alcohol Use: Never., 06/16/2022 Nutrition/Health Caffeine intake amount: 1 serving daily., 06/16/2022 Substance Abuse Use: Past., 06/16/2022 Use: Current. Type: Heroin. Frequency: 1-2 times per week. Previous treatment: None. Started at age: 20 Years. IV drug use; Yes. Has drug use interfered with your work or home life? No. Ready to change: Yes. Concerns about substance abuse in household: No., 12/06/2019 Tobacco Tobacco Use: 10 or more cigarettes (1/2 pack or more)/day in last 30 days., 02/18/2019 Family History Family history is unknown Immunizations hepatitis B pediatric vaccine: 0 unknown unit (05/26/00) Code Status Code Status - Ordered -- 09/22/24 11:47:00 EDT, Full Code, Constant Order Digitally Signed by NAVDEEP CHOPRA MD on 09/22/2024 04:29 PM [id number] + Plan note Diagnostic Tests Pending * Blood Culture ID Panel by PCR 09/22/24 [facility] 06-07-2025 Evaluation + Plan noteExtracted from: Title:MICU History and Physical Author:NAVDEEP CHOPRA MD Date:09/22/24 Assessment: 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 Metabolic encephalopathy secondary to above Lactic acidosis Anemia Thrombocytopenia Acute liver injury History of tricuspid endocarditis s/p valve replacement History of IV drug use History of MRSA bacteremia DVT prophylaxis GI prophylaxis CODE STATUS Plan: Continue Vancomycin and Zosyn, monitor blood cultures Cardiology consulted, echo ordered Monitor lactic acid every 6 until normalized, maintenance LR at 100 mL/h SCDs for DVT prophylaxis, hold anticoagulation in the setting of thrombocytopenia NPO until mental status improves, protonix IC for GI ppx Monitor for signs of withdrawal, airway compromise FULL CODE Plan of care discussed with Dr. Deshpande Addendum by JOSEP DESHPANDE MD on September 22, 2024 23:12:46 EDT The patient was seen and examined and discussed with housestaff History and physical reviewed History present illness, past medical history, social history, review of systems, and medications reviewed. Physical examination performed. Impression: 1. Febrile illness in an IV drug user with prosthetic tricuspid valve post prior endocarditis. Suspected vegetation visible consistent with prosthetic TC valve endocarditis 2. History of tricuspid valve endocarditis due to IV drug abuse status post tricuspid valve replacement in [place] 1 year ago 3. Acute respiratory failure and increased work of breathing due to bilateral infiltrates and cavitations consistent with multiple septic emboli 4. Acute kidney injury and acute liver injury 5. Septic shock and lactic acidosis 6. Hepatosplenomegaly consistent with endocarditis 7. Metabolic encephalopathy 8. Tox screen positive for amphetamine and cannabinoids Plan: 1. Blood cultures have been obtained. Preliminary results show gram-positive cocci 2. Start vancomycin and Zosyn broad-spectrum antibiotics 3. Echocardiogram 4. Low threshold for intubation 5. May need pressors 6. Will likely need transplant due to hospital in [place] where he had his valve replaced for reevaluation. 8. GI DVT prophylaxis Prognosis very guarded to poor Josep Deshpande MD [facility] Future Appointments Appointment Date:11/07/2024 02:00:00 PM Scheduled Provider:KIKA MESSINA MD Location:[facility] Appointment Type:[facility] OV Post Op Appointment Date:01/07/2025 01:15:00 PM Scheduled Provider: Location:[facility] Appointment Type:CV Office Procedure PPM Appointment Date:04/08/2025 05:30:00 PM Scheduled Provider: Location:[facility] Appointment Type:CV Remote Procedure Future Scheduled Tests Laboratory* Basic Metabolic Panel 11/14/24 Radiology* XR Chest 2 Views (PA & Lateral) 11/14/24 [facility] 06-07-2025 History and physical note Date of Service 09/22/2024 History of Present Illness 29-year-old male with past medical history of IV drug use, history of tricuspid endocarditis s/p tricuspid valve replacement in 2023, MRSA bacteremia presented to [facility] Emergency Department for shortness of breath and chest pain. Workup at [place] reveals evidence of sepsis secondary totricuspid endocarditis with septic emboli throughout the lungs. He was given vancomycin and Zosyn as well as nearly 3 L of IV normal saline. Apparently was awake and talking at [place] but on arrival here is somnolent, slurred speech, difficult to arouse. At [place] he reported last IV drug use 3days ago. He does have positive blood cultures for MRSA over 1 year ago. Workup at [place] also revealed elevated white blood cell count at 22,000, platelets low at 40, urinalysis showed no evidence of infection, urine drug screen positive for amphetamines and cannabinoids, CT scan of the chest revealed tricuspid vegetations and cavitary lesions throughout the lungs consistent with septic emboli. Lactic acid was elevated at 8.5, is downtrending. Nasal swab negative for COVID flu and RSV. LFTs also elevated to the 200s-300s. Troponin 56. Review of Systems Unable to obtain due to patient mental status. Physical Exam Vitals and Measurements T: 36.4 C (Axillary) HR: 110 (Monitored) RR: 36 BP: 111/76 SpO2: 100% HT: 180 cm WT: 55.2 kg BMI: 17.04 Weight Dosing Weight: 55.2 kg (09/22/24) General: Somnolent, difficult to arouse, oriented x 2 HEENT: Normocephalic, atraumatic, PERRL, EOMI Neck: Trachea midline, soft, no meningeal signs Cardiovascular: Tachycardic, regular rhythm, no audible murmurs Pulmonary: Tachypneic, clear to auscultation bilaterally Abdomen: Soft, nontender, nondistended Musculoskeletal: No obvious deformities, able to move limbs freely, no signs of redness or swelling Extremities: Peripheral pulses intact, no significant lower extremity edema Neurologic: Cranial nerves II through XII grossly intact, moves all extremities equally Skin: Warm, dry, multiple well-healing scars and lesions, track mejia present on bilateral upper extremities Psych: somnolent, difficult to arouse Lab Results 09/22 12:15 WBC: 26.7 H Hgb: 8.9 L Hct: 26.7 L Platelet: 47 L Protime: 20.6 H PT International Ratio: 1.8 Glucose Level: 115 H Sodium Level: 134 L Potassium Level: 3.7 BUN: 59.0 H Creatinine Lvl (s): 1.07 Imaging Results and Diagnostics XR Chest 1 View Result Date: September 22, 2024 Verified By: JUNI DIXON MD CLINICAL STATEMENT: IMPRESSION: 1. Increasing diffuse mixed interstitial and airspace opacities. peripheralmore triangular shaped airspace opacity in the right middle lobe. Findingsmay be related to multifocal pneumonia, pulmonary edema and/or ARDS.2. Multiple rounded lucent lesions most likely related to known cavitarynodules. Assessment/Plan Assessment: 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 Metabolic encephalopathy secondary to above Lactic acidosis Anemia Thrombocytopenia Acute liver injury History of tricuspid endocarditis s/p valve replacement History of IV drug use History of MRSA bacteremia DVT prophylaxis GI prophylaxis CODE STATUS Plan: Continue Vancomycin and Zosyn, monitor blood cultures Cardiology consulted, echo ordered Monitor lactic acid every 6 until normalized, maintenance LR at 100 mL/h SCDs for DVT prophylaxis, hold anticoagulation in the setting of thrombocytopenia NPO until mental status improves, protonix IC for GI ppx Monitor for signs of withdrawal, airway compromise FULL CODE Plan of care discussed with Dr. Deshpande Problem List/Past Medical History Ongoing Bacteremia Endocarditis of tricuspid valve IV drug abuse Procedure/Surgical History Thoracentesis: 05/05/22 Transesophageal echocardiogram: 04/20/22 Echocardiogram: 04/14/22 CT angiography of chest with contrast: 04/13/22 CT angiography of chest with contrast: 12/06/19 Medications Home Medications (1) Active Narcan 4 mg/0.1 mL nasal spray 4 mg = 1 spray(s), PRN, Intranasal, AsDirected Allergies NKA Social History Smoking Status - 12/25/2015 Current every day smoker Alcohol Use: Never., 06/16/2022 Nutrition/Health Caffeine intake amount: 1 serving daily., 06/16/2022 Substance Abuse Use: Past., 06/16/2022 Use: Current. Type: Heroin. Frequency: 1-2 times per week. Previous treatment: None. Started at age: 20 Years. IV drug use; Yes. Has drug use interfered with your work or home life? No. Ready to change: Yes. Concerns about substance abuse in household: No., 12/06/2019 Tobacco Tobacco Use: 10 or more cigarettes (1/2 pack or more)/day in last 30 days., 02/18/2019 Family History Family history is unknown Immunizations hepatitis B pediatric vaccine: 0 unknown unit (05/26/00) Code Status Code Status - Ordered -- 09/22/24 11:47:00 EDT, Full Code, Constant Order Digitally Signed by NAVDEEP CHOPRA MD on 09/22/2024 04:29 PM [id number]* Exam Date Time Procedure Performing Provider Status 09/22/24 12:41 PM Electrocardiogram - EKG - CV VINCENT CHAVES MD; Auth (Verified) ECG Final Report Sinus tachycardia ST elev, probable normal early repol pattern Borderline prolonged QT interval Electronic Signature: VINCENT GILL MD 09/23/2024 13:26:34 [id number]* Exam Date Time Procedure Performing Provider Status 09/22/24 8:[address] Angiography Chest w/ Contrast YAZMIN COSTA MD; Auth (Verified) [id number] ORIGINAL EXAMINATION: CTA OF THE CHEST09/22/2024 8:22 am TECHNIQUE: CTA of the chest was performed after the administration of intravenous contrast. Multiplanar reformatted images are provided for review. MIP images are provided for review. Automated exposure control, iterative reconstruction, and/or weight based adjustment of the mA/kV was utilized to reduce the radiation dose to as low as reasonably achievable. COMPARISON: 04/29/2023 HISTORY: ORDERING SYSTEM PROVIDED HISTORY: Reason for Exam: pt arrived to the ED with c/o SOB with productive cough x2 days. pt sts pain when coughing in chest & back; sts previous heart valve replacement approx 2 yrs ago. Chest pain, nonspecific FINDINGS: The exam is significantly degraded by patient motion and beam hardening artifact. There is adequate contrast opacification of the proximal pulmonary arterial vasculature. There is no large central filling defect or vessel cutoff to indicate pulmonary embolus. The segmental branches are not well evaluated. The thoracic aorta is normal in caliber. There are calcified right hilar and subcarinal lymph nodes. The heart is normal in size. No pericardial effusion or thickening. The trachea is normal. There is no lymphadenopathy. The lungs are emphysematous. There are numerous persistent cavitary nodules bilaterally, which are decreased in size from the previous exam. A security representative nodule measures 2.4 cm. There is no new consolidation.. No pneumothorax or pleural fluid. The visualized osseous structures are intact. Limited images of the upper abdomen are noncontributory. Sternotomy wires are present. IMPRESSION: No large central pulmonary emboli within the limits of this exam. Exam severely degraded by patient motion and beam hardening artifact due to positioning. Numerous persistent cavitary pulmonary nodules which are decreased in size from the previous exam. This has a wide differential diagnosis including sequela of septic emboli, pulmonary infarct, vasculitis, or metastatic disease. Emphysema. Interpreted by: Yazmin Costa MD Preliminary Report By: Yazmin Costa MD Electronically signed By Yazmin Costa MD Dictated Date: 09/22/2024 8:27:55 AM Prelim Date: 09/22/2024 8:42:32 AM Sign Date: 09/22/2024 8:42:32 AM Ordering Provider: ANURAG TRUJILLO [facility]06-07-2025 Note* Exam Date Time Procedure Performing Provider Status 09/22/24 6:22 AM EKG [ED AOH] - CV ANURAG TRUJILLO DO; Aut h (Verified) ECG Final Report Sinus tachycardia Probable left atrial enlargement Probable right ventricular hypertrophy Prolonged QT interval Artifact in lead(s) I,II,III,aVR,aVL,aVF,V1,V3,V5,V6 Electronic Signature: ANURAG TRUJILLO DO 09/22/2024 06:42:36 [facility]03-15-2025 NoteHNO ID: [id number] Author: ALEXANDRA ROMERO RN Service: ? Author Type: Registered Nurse Type: Progress Notes Filed: 06/30/2024 11:47 Note Text: AMB [facility]: En[place] in [employer]: Completed Date of Enrollment: 05/08/2023 Call Attempt: 2nd Attempt Call Status: Left message Date Call Completed: 06/30/2024 Contact states patient is feeling: N/A Patient understands plan of care: N/A Patient is taking Antibiotics: N/A Is patient sober at this time: N/A Have you had trouble with drugs since your hospitalization: NA Have you followed up with psych since your hospitalization: NA Do you need any additional information or resources: N/A Do you feel you have a good support system from family and/or friends: N/A Do you want someone from peer support to contact you: N/A Patient is taking medication assisted therapy: N/A Did patient complete any type of inpatient rehabilitation: N/A Follow up appointment made: N/A Barriers to making appointments: N/A Re-Hospitalized since DC: N/A Where is patient living: NA Date of discharge: 06/13/2023 Spoke with pt's mother, who will give pt the message to call [facility] Resource Nurse [phone].[facility]03-15-2025 History of Present illness Narrative* Alexandra Romero RN - 06/30/2024 11:42 AM EDT AMB [facility]: En[place] in [employer]: Completed Date of Enrollment: 05/08/2023 Call Attempt: 2nd Attempt Call Status: Left message Date Call Completed: 06/30/2024 Contact states patient is feeling: N/A Patient understands plan of care: N/A Patient is taking Antibiotics: N/A Is patient sober at this time: N/A Have you had trouble with drugs since your hospitalization: NA Have you followed up with psych since your hospitalization: NA Do you need any additional information or resources: N/A Do you feel you have a good support system from family and/or friends: N/A Do you want someone from peer support to contact you: N/A Patient is taking medication assisted therapy: N/A Did patient complete any type of inpatient rehabilitation: N/A Follow up appointment made: N/A Barriers to making appointments: N/A Re-Hospitalized since DC: N/A Where is patient living: NA Date of discharge: 06/13/2023 Spoke with pt's mother, who will give pt the message to call [facility] Resource Nurse [phone]. [facility] NotePatient Outreach ([facility]VICTR) SAM JIMENEZ ([id number]) 1995 M Date Time Provider Department 06/30/24 ROMAN YEE [facility] During your visit today, we recorded the following information about you: Alexandra Romero RN 06/30/2024 11:47 AM Signed AMB [facility] MOSAIC: [place] in [employer]: Completed Date of Enrollment: 05/08/2023 Call Attempt: 2nd Attempt Call Status: Left message Date Call Completed: 06/30/2024 Contact states patient is feeling: N/A Patient understands plan of care: N/A Patient is taking Antibiotics: N/A Is patient sober at this time: N/A Have you had trouble with drugs since your hospitalization: NA Have you followed up with psych since your hospitalization: NA Do you need any additional information or resources: N/A Do you feel you have a good support system from family and/or friends: N/A Do you want someone from peer support to contact you: N/A Patient is taking medication assisted therapy: N/A Did patient complete any type of inpatient rehabilitation: N/A Follow up appointment made: N/A Barriers to making appointments: N/A Re-Hospitalized since DC: N/A Where is patient living: NA Date of discharge: 06/13/2023 Spoke with pt's mother, who will give pt the message to call [facility] Resource Nurse [phone]. Allergies As of Date: 06/30/2024 (No Known Allergies) Date Reviewed: 06/21/2023 Reviewed by: Cassandra Godoy LPN - Fully Assessed Prescriptions as of 06/30/2024 - acetaminophen (TYLENOL) 325 mg tablet Take 2 tablets by mouth every 6 hours as needed (mild to moderate pain). - torsemide (DEMADEX) 20 mg tablet Take 1 tablet by mouth once daily. Patient should start on June 14, 2023. - aspirin 81 mg chewable tablet Take 1 tablet by mouth once daily. - ergocalciferol 50,000 unit capsule (VITAMIN D2, DRISDOL) Take 1 capsule by mouth one time a week. - melatonin 3 mg tablet Take 1 tablet by mouth daily at bedtime. - metoprolol succinate ER (TOPROL XL) 25 mg 24 hr tablet Take 1 tablet by mouth once daily. - MULTIVITAMIN-FERROUS FUMARATE-FOLIC ACID 18 MG-400 MCG TABLET Take 1 tablet by mouth daily with breakfast. - pantoprazole DR (PROTONIX) 20 mg tablet Take 1 tablet by mouth daily at 6 am. - senna-docusate (SENNA-S) 8.6-50 mg per tablet Take 1 tablet by mouth two times a day as needed. - spironolactone (ALDACTONE) 25 mg tablet Take 0.5 tablets by mouth once daily. 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 MRSA bacteremia [R78.81, B95.62] 05/08/2023 Acute septic pulmonary embolism (HCC) [I26.90] 05/08/2023 Acute midline thoracic back pain [M54.6] 05/08/2023 Intravenous drug abuse (HCC) [F19.10] 05/08/2023 Chronic hepatitis C without hepatic coma (HCC) *05/08/2023 Adjustment disorder with mixed anxiety and depr*05/09/2023 Opioid use disorder [F11.90] 05/09/2023 Cannabis use disorder [F12.90] 05/09/2023 History of intravenous drug use in remission [Z*05/16/2023 Substance abuse (HCC) [F19.10] 05/16/2023 Dental decay [K02.9] 05/17/2023 Malnutrition of moderate degree (HCC) [E44.0] 05/27/2023 Post-op pain [G89.18] 05/30/2023 On mechanically assisted ventilation (HCC) [Z99*05/30/2023 06/01/2023 Stress hyperglycemia [R73.9] 05/30/2023 06/02/2023 Acute pneumothorax [J93.83] 05/31/2023 USP (current) use of antibiotics [Z79.2] 06/01/2023 Encounter for support and coordination of trans*06/01/2023 Jugular vein thrombosis, 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] 06/03/2023 Superficial thrombophlebitis of left upper extr*06/03/2023 Summary [Z91.199] 06/06/2023 Anemia of chronic disease [D63.8] 06/06/2023 Acute right-sided heart failure (HCC) [I50.811] 06/06/2023 Iron deficiency [E61.1] 06/07/2023 Hypovitaminosis D [E55.9] 06/07/2023 S/P TVR (tricuspid valve repair) [Z98.890] 08/09/2023 Endocarditis of tricuspid valve [I07.9] 08/09/2023 Primary spontaneous pneumothorax [J93.11] 08/17/2023 Encounter Status:Closed by ALEXANDRA ROMERO on 06/30/24[facility] NoteHNO ID: [id number] Author: ALEXANDRA ROMERO RN Service: ? Author Type: Registered Nurse Type: Progress Notes Filed: 06/23/2024 19:08 Note Text: AMB [facility]: En[place] in [employer]: Yes Date of Enrollment: 05/08/2023 Call Attempt: 1st Attempt Call Status: Unable to contact patient Date Call Completed: 06/23/2024 Date of discharge: 06/13/2023 Next Call follow up date: 06/24/2024 Spoke to pt's mother, she will pass along the message, to call the [facility] Resource Iyhbn=[phone].[facility]03-08-2025 History of Present illness Narrative* Alexandra Romero RN - 06/23/2024 7:04 PM EST AMB [facility]: En[place] in [place]: Yes Date of Enrollment: 05/08/2023 Call Attempt: 1st Attempt Call Status: Unable to contact patient Date Call Completed: 06/23/2024 Date of discharge: 06/13/2023 Next Call follow up date: 06/24/2024 Spoke to pt's mother, she will pass along the message, to call the [facility] Resource Cgwep=[phone]. documented in [facility]Ad[facility] NotePatient Outreach (HVICTR) SAM JIMENEZ ([id number]) 1995 M Date Time Provider Department 06/23/24 ROMAN YEE [facility] During your visit today, we recorded the following information about you: Alexandra Romero RN 06/23/2024 7:08 PM Signed AMB [facility] MOSAIC: Enrolled in [employer]: Yes Date of Enrollment: 05/08/2023 Call Attempt: 1st Attempt Call Status: Unable to contact patient Date Call Completed: 06/23/2024 Date of discharge: 06/13/2023 Next Call follow up date: 06/24/2024 Spoke to pt's mother, she will pass along the message, to call the [facility] Resource Ethnz=[phone]. Allergies As of Date: 06/23/2024 (No Known Allergies) Date Reviewed: 06/21/2023 Reviewed by: Cassandra Godoy LPN - Fully Assessed Reason for Visit: MOSAIC follow up [Other] Prescriptions as of 06/23/2024 - acetaminophen (TYLENOL) 325 mg tablet Take 2 tablets by mouth every 6 hours as needed (mild to moderate pain). - torsemide (DEMADEX) 20 mg tablet Take 1 tablet by mouth once daily. Patient should start on June 14, 2023. - aspirin 81 mg chewable tablet Take 1 tablet by mouth once daily. - ergocalciferol 50,000 unit capsule (VITAMIN D2, DRISDOL) Take 1 capsule by mouth one time a week. - melatonin 3 mg tablet Take 1 tablet by mouth daily at bedtime. - metoprolol succinate ER (TOPROL XL) 25 mg 24 hr tablet Take 1 tablet by mouth once daily. - MULTIVITAMIN-FERROUS FUMARATE-FOLIC ACID 18 MG-400 MCG TABLET Take 1 tablet by mouth daily with breakfast. - pantoprazole DR (PROTONIX) 20 mg tablet Take 1 tablet by mouth daily at 6 am. - senna-docusate (SENNA-S) 8.6-50 mg per tablet Take 1 tablet by mouth two times a day as needed. - spironolactone (ALDACTONE) 25 mg tablet Take 0.5 tablets by mouth once daily. 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.*05/08/2023 MRSA bacteremia [R78.81, B95.62] 05/08/2023 Acute septic pulmonary embolism (HCC) [I26.90] 05/08/2023 Acute midline thoracic back pain [M54.6] 05/08/2023 Intravenous drug abuse (HCC) [F19.10] 05/08/2023 Chronic hepatitis C without hepatic coma (HCC) *05/08/2023 Adjustment disorder with mixed anxiety and depr*05/09/2023 Opioid use disorder [F11.90] 05/09/2023 Cannabis use disorder [F12.90] 05/09/2023 History of intravenous drug use in remission [Z*05/16/2023 Substance abuse (HCC) [F19.10] 05/16/2023 Dental decay [K02.9] 05/17/2023 Malnutrition of moderate degree (HCC) [E44.0] 05/27/2023 Post-op pain [G89.18] 05/30/2023 On mechanically assisted ventilation (HCC) [Z99*05/30/2023 06/01/2023 Stress hyperglycemia [R73.9] 05/30/2023 06/02/2023 Acute pneumothorax [J93.83] 05/31/2023 oil heaterman (current) use of antibiotics [Z79.2] 06/01/2023 Encounter for support and coordination of trans*06/01/2023 Jugular vein thrombosis, 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] 06/03/2023 Superficial thrombophlebitis of left upper extr*06/03/2023 Summary [Z91.199] 06/06/2023 Anemia of chronic disease [D63.8] 06/06/2023 Acute right-sided heart failure (HCC) [I50.811] 06/06/2023 Iron deficiency [E61.1] 06/07/2023 Hypovitaminosis D [E55.9] 06/07/2023 S/P TVR (tricuspid valve repair) [Z98.890] 08/09/2023 Endocarditis of tricuspid valve [I07.9] 08/09/2023 Primary spontaneous pneumothorax [J93.11] 08/17/2023 Encounter Status:Closed by ALEXANDRA ROMERO on 06/23/24[facility] 05-22-20[facility] Hospital Discharge instructions Patient Education 05/22/2024 15:25:35 Overdose, Accidental (Adult) Accidental Ingestion: Nontoxic (Adult) You have been evaluated and treated for accidentally taking too much of a medicine or swallowing a chemical product. There is no sign of toxic effect at this time. It's not likely that any new symptoms will appear. But, to be safe, watch for symptoms during the next 24 hours (see below). The symptoms will depend on what was swallowed. Home care If liquid charcoal was given to neutralize what was swallowed, Your stool may be black for 1 to 2 days. Usually, a laxative is given with charcoal. This speeds the removal of any toxins from the intestines. This may cause diarrhea for up to 24 hours. If you have been given charcoal but no laxative, you may become constipated. If this occurs, you may take an [id number] laxative. Prevention Keep medicines, pesticides, and other household chemicals in their original containers. Clearly benedict all harmful products if a different bottle is used. Keep all substances in a safe place. In the future, if you or someone you know takes something possibly harmful, and you are not sure what to do, call the [employer] [facility]. The phone number is [phone].The phone line is staffed 24 hours a day. If you call, you will be connected to the poison control center closest to you. Follow-up care Follow up with your healthcare provider, or as advised. Call 911 Call 911 if any of these occur. Trouble breathing or swallowing, wheezing Severe confusion Extreme drowsiness or trouble awakening Fainting or loss of consciousness Rapid heart rate Very slow heart rate Very low or very high blood pressure Vomiting blood, or large amounts of blood in stool Seizure When to seek medical advice Call your healthcare provider right away if any of these occur. Shakiness Fast breathing (over 25 breaths per minute) or slow breathing (less than 8 breaths per minute) Shortness of breath Fever of 100.4 F (38 C) or higher, or as directed by your healthcare provider Vomiting or diarrhea for more than 24 hours Abdominal pain Dizziness or weakness [id number] [employer] [place] [address]. All rights reserved. This information is not intended as a substitute for professional medical care. Always follow yourhealthcare professional's instructions. 05/22/2024 15:25:22 Naloxone nasal spray Naloxone nasal spray What is this medicine? NALOXONE (nal OX one) is a narcotic leidy. It is used to treat narcotic drug overdose. How should I use this medicine? This medicine is for use in the nose. Lay the person on their back. Support their neck with your hand and allow the head to tilt back before giving the medicine. The nasal spray should be given into 1 nostril. After giving the medicine, move the person onto their side. Do not remove or test the nasal spray until ready to use. Get emergency medical help right away after giving the first dose of this medicine, even if the person wakes up. You should be familiar with how to recognize the signs and symptoms of a narcotic overdose. If more doses are needed, give the additional dose in the other nostril. Talk to your client care manager regarding the use of this medicine in children. While this drug may be prescribed for children as young as newborns for selected conditions, precautions do apply. What side effects may I notice from receiving this medicine? Side effects that you should report to your doctor or health patient care provider as soon as possible: allergic reactions like skin rash, itching or hives, swelling of the face, lips, or tongue breathing problems fast, irregular heartbeat high blood pressure pain that was controlled by narcotic pain medicine seizures Side effects that usually do not require medical attention (report to your doctor or health patient care provider if they continue or are bothersome): anxious chills diarrhea fever headache muscle pain nausea, vomiting nose irritation like dryness, congestion, and swelling sweating What may interact with this medicine? This medicine is only used during an emergency. No interactions are expected during emergency use. What if I miss a dose? This does not apply. Where should I keep my medicine? Keep out of the reach of children. Store between 4 and 40 degrees C (39 and 104 degrees F). Do not freeze. Throw away any unused medicine after the expiration date. Keep in original box until ready to use. What should I tell my health care provider before I take this medicine? They need to know if you have any of these conditions: drug abuse or addiction heart disease an unusual or allergic reaction to naloxone, other medicines, foods, dyes, or preservatives or trying to get breast-feeding What should I watch for while using this medicine? Keep this medicine ready for use in the case of a narcotic overdose. Make sure that you have the phone number of your doctor or health patient care provider and local hospital ready. You may need to haveadditional doses of this medicine. Each nasal spray contains a single dose. Some emergencies may require additional doses. After use, bring the treated person to the nearest hospital or call 911. Make sure the treating health patient care provider knows that the person has received an injection of this medicine. You will receive additional instructions on what to do during and after use of this medicine before an emergencyoccurs. NOTE:This sheet is a summary. It may not cover all possible information. If you have questions about this medicine, talk to your doctor, pharmacist, or health care provider. Copyright 2019 Elsevier Follow Up Care 05/22/2024 14:37:57 With:Go to emergency room if symptoms worsen Address:Unknown When:2-4 days With:REBA CHIRINOS MD Address: [address] [place] [phone]- [phone] When:Within 1 Day(s) [facility] 02-04-2025 Note Discharge Instructions Thank you for allowing [facility] to assist you with your healthcare needs. The following is importantdischarge information regarding your hospital visit. What to Do Next Instructions from Your Care Team Please follow-up with your primary care provider in the next 1 day. If it anytime you would like resources provided for drug addiction or overdose, please return to the emergency department. No qualifying data available. Post Acute Orders No qualifying data available. You Need to Schedule the Following Appointments Follow Up with REBA CHIRINOS MD When:In 1 day Where:[address] [place] [address]- [phone] Allergies NKA Medications Please ask your primary doctor or pharmacist before taking any other medication not listed, including over the counter drugs, herbal medications, vitamins and or supplements as they may interact withyour home medications. Please take this list to your next doctor s visit. Bring all medications you take, including over the counter medications, herbals and other supplements with you to your doctor s visit. Patients and families are reminded to discard old lists and to update any records with all medication providers or retail pharmacies. Education Materials Accidental Ingestion: Nontoxic (Adult) You have been evaluated and treated for accidentally taking too much of a medicine or swallowing a chemical product. There is no sign of toxic effect at this time. It's not likely that any new symptoms will appear. But, to be safe, watch for symptoms during the next 24 hours (see below). The symptoms will depend on what was swallowed. Home care If liquid charcoal was given to neutralize what was swallowed, Your stool may be black for 1 to 2 days. Usually, a laxative is given with charcoal. This speeds the removal of any toxins from the intestines. This may cause diarrhea for up to 24 hours. If you have been given charcoal but no laxative, you may become constipated. If this occurs, you may take an xtuy-hvo-iavgbjf laxative. Prevention Keep medicines, pesticides, and other household chemicals in their original containers. Clearly benedict all harmful products if a different bottle is used. Keep all substances in a safe place. In the future, if you or someone you know takes something possibly harmful, and you are not sure what to do, call the [place] [facility]. The phone number is [phone].The phone line is staffed 24 hours a day. If you call, you will be connected to the poison control center closest to you. Follow-up care Follow up with your healthcare provider, or as advised. Call 911 Call 911 if any of these occur. Trouble breathing or swallowing, wheezing Severe confusion Extreme drowsiness or trouble awakening Fainting or loss of consciousness Rapid heart rate Very slow heart rate Very low or very high blood pressure Vomiting blood, or large amounts of blood in stool Seizure When to seek medical advice Call your healthcare provider right away if any of these occur. Shakiness Fast breathing (over 25 breaths per minute) or slow breathing (less than 8 breaths per minute) Shortness of breath Fever of 100.4 F (38 C) or higher, or as directed by your healthcare provider Vomiting or diarrhea for more than 24 hours Abdominal pain Dizziness or weakness [phone] [employer]. [address] [place] [address]. All rights reserved. This information is not intended as a substitute for professional medical care. Always follow yourhealthcare professional's instructions. Naloxone nasal spray What is this medicine? NALOXONE (nal OX one) is a narcotic leidy. It is used to treat narcotic drug overdose. How should I use this medicine? This medicine is for use in the nose. Lay the person on their back. Support their neck with your hand and allow the head to tilt back before giving the medicine. The nasal spray should be given into 1 nostril. After giving the medicine, move the person onto their side. Do not remove or test the nasal spray until ready to use. Get emergency medical help right away after giving the first dose of this medicine, even if the person wakes up. You should be familiar with how to recognize the signs and symptoms of a narcotic overdose. If more doses are needed, give the additional dose in the other nostril. Talk to your client care manager regarding the use of this medicine in children. While this drug may be prescribed for children as young as newborns for selected conditions, precautions do apply. What side effects may I notice from receiving this medicine? Side effects that you should report to your doctor or health patient care provider as soon as possible: allergic reactions like skin rash, itching or hives, swelling of the face, lips, or tongue breathing problems fast, irregular heartbeat high blood pressure pain that was controlled by narcotic pain medicine seizures Side effects that usually do not require medical attention (report to your doctor or health patient care provider if they continue or are bothersome): anxious chills diarrhea fever headache muscle pain nausea, vomiting nose irritation like dryness, congestion, and swelling sweating What may interact with this medicine? This medicine is only used during an emergency. No interactions are expected during emergency use. What if I miss a dose? This does not apply. Where should I keep my medicine? Keep out of the reach of children. Store between 4 and 40 degrees C (39 and 104 degrees F). Do not freeze. Throw away any unused medicine after the expiration date. Keep in original box until ready to use. What should I tell my health care provider before I take this medicine? They need to know if you have any of these conditions: drug abuse or addiction heart disease an unusual or allergic reaction to naloxone, other medicines, foods, dyes, or preservatives or trying to get breast-feeding What should I watch for while using this medicine? Keep this medicine ready for use in the case of a narcotic overdose. Make sure that you have the phone number of your doctor or health patient care provider and local hospital ready. You may need to haveadditional doses of this medicine. Each nasal spray contains a single dose. Some emergencies may require additional doses. After use, bring the treated person to the nearest hospital or call 911. Make sure the treating health patient care provider knows that the person has received an injection of this medicine. You will receive additional instructions on what to do during and after use of this medicine before an emergencyoccurs. NOTE:This sheet is a summary. It may not cover all possible information. If you have questions about this medicine, talk to your doctor, pharmacist, or health care provider. Copyright 2019 Elsevier Additional Information VACCINATE! IT SAVES LIVES! Members of the community who have not yet received the COVID-19 vaccine and would like to receive it can visit one of [facility] vaccine clinics. There are many vaccine clinic locations within the [facility]. For locations and available times, please visit www.[email or web address].[email or web address]/. It is important to note that some COVID mobile vaccine clinics are held outdoors and may be canceled in rainy or stormy conditions. To learn more about pediatric vaccinations (ages 5-11), we invite you to visit the [facility] webpage. [email or web address]/[email or web address]-Adlvk-[email or web address] [email or web address] learn more about the COVID-19 vaccine, we invite you to visit the CDC website for a list of frequently asked questions. https://www.cdc.gov/coronavirus/2019-ncov/vaccines/faq.html [facility] Patient Portal Access Instructions: Stay connected with your healthcare team and access your personal medical information anytime with the [facility] Patient Portal. If you would like a full copy of your medical records please contact the [facility] Medical Records Department Tuesday through Tuesday between 8a.m. and 4:30p.m. Please follow the directions below to access the portal: 1.Access the email account you provided upon registration to the [facility].2.Look for an invitation email from [facility].3.Open the email and access the invitation link: Accept Invitation to [facility]4.Fill in the required sandoval to create your account. Sign into [email or web address] with your username and password that you created in the above steps to stay up to date. You can then view a summary of results, a summary of your visits, and the ability to download your summaries to your computer or send the information securely to a physician. Remember that your healthcare information is confidential, so carefully consider who you will allow to register on the [facility] Patient Portal for access to your information. You can also access the [facility] Patient Portal on the [facility] kendrick. Simply click on Health Records under Datav[employer] and then click on the Nena logo. HOW TO SAFELY DISPOSE OF PRESCRIPTION MEDICATIONS Please use one of the following methods to safely dispose of your unused medications. 1.Use a drug disposal kit: the drug disposal pouch allows you to safely discard your old and unuseddrugs. Ask your nurse to give you one when you are discharged.2.Visit a local take-back location: Many local pharmacies and police departments have programs that collect old and unwanted prescriptiondrugs. Call your local pharmacy or go to http://bit.e(ye)BRAIN/7Q3Ik1l to find one close to you.3.Make use of household items: Use cat litter or old coffee grounds to dispose medications if other options arenot available. Mix your drugs with these household products, seal them in an airtight container andthrow it into the garbage. Call [facility]: [phone] to be sure your drugs can be disposed of in this way. Some medicines may require a different approach.4.Never flush your medications down the toilet. IF YOU HAVE BEEN PRESCRIBED AN OPIOIDS FOR PAIN If you have been prescribed an opioid (such as hydrocodone, oxycodone or morphine), it is critical to understand the possible side effects and risks of opioid pain medications. Even when taken as directed, opioids can have several side effects including: Tolerance, meaning you might need to take more of a medication for the same pain relief. Nausea, vomiting and/or constipation. Sleepiness, dizziness, dry mouth, confusion, depression or itching. Physical dependence, meaning you have withdrawal symptoms when a medication is stopped ? this can develop within a few days. KNOW YOUR RESPONSIBILITIES It is important to know exactly how much and how often to take the opioid pain medications you are prescribed. Never take opioids in higher amounts or more often than prescribed. Do not combine opioids with alcohol or other drugs that cause drowsiness, such as benzodiazepines, also known as benzos,including diazepam and alprazolam, muscle relaxants or sleep aids. Never sell or share prescriptionopioids. This is illegal. Store opioids in a secure place and out of reach of others (including children, family, friends and visitors). The last page(s) of this document has been signed and retained as a CHART COPY Signatures Patient Education Materials Overdose, Accidental (Adult) Naloxone nasal spray Medication Leaflets My discharge plan and instructions have been reviewed and explained to me and I,SAM JIMENEZ understand my current condition and have read and understand these discharge instructions. I have received a written copy of the plan/instructions. If I have questions, I am aware that I should contact my doctor. Patient/Leave Specialist Signature: Date/Time: Relationship to Patient: Witness Name/Signature: Date/Time: [facility] [id number] Note* Exam Date Time Procedure Performing Provider Status 05/22/24 3:08 PM EKG [ED AOH] - CV ANURAG TRUJILLO DO; Aut h (Verified) ECG Final Report Sinus tachycardia RSR' in V1 or V2, right VCD or RVH Borderline T abnormalities, inferior leads Electronic Signature: ANURAG TRUJILLO DO 05/22/2024 15:15:19 [facility]06-01-2024 NoteHNO ID: [id number] Author: ALEXANDRA ROMERO RN Service: ? Author Type: Registered Nurse Type: Progress Notes Filed: 09/17/2023 18:13 Note Text: AMB [facility] MOSAIC: Enrolled in [place]: Yes Date of Enrollment: 05/08/2023 Call Attempt: 2nd Attempt Call Status: Left message Date Call Completed: 09/17/2023 Contact states patient is feeling: N/A Patient understands plan of care: N/A Patient is taking Antibiotics: N/A Is patient sober at this time: N/A Have you had trouble with drugs since your hospitalization: NA Have you followed up with psych since your hospitalization: NA Do you need any additional information or resources: N/A Do you feel you have a good support system from family and/or friends: N/A Do you want someone from peer support to contact you: N/A Patient is taking medication assisted therapy: N/A Did patient complete any type of inpatient rehabilitation: N/A Follow up appointment made: N/A Barriers to making appointments: N/A Re-Hospitalized since DC: N/A Where is patient living: NA Date of discharge: 06/13/2023 Next Call follow up date: 12/12/2023 Attempted to contact pt's home number, it rings and rings. I then attempted to contact pt's mother. I reached her VMX. Left message requesting a return phone call to the [facility] Resource Nurse [phone].[facility]06-[facility] History of Present illness Narrative* Alexandra Romero RN - 09/17/2023 6:08 PM EDT AMB [facility]: En[place] in [place]: Yes Date of Enrollment: 05/08/2023 Call Attempt: 2nd Attempt Call Status: Left message Date Call Completed: 09/17/2023 Contact states patient is feeling: N/A Patient understands plan of care: N/A Patient is taking Antibiotics: N/A Is patient sober at this time: N/A Have you had trouble with drugs since your hospitalization: NA Have you followed up with psych since your hospitalization: NA Do you need any additional information or resources: N/A Do you feel you have a good support system from family and/or friends: N/A Do you want someone from peer support to contact you: N/A Patient is taking medication assisted therapy: N/A Did patient complete any type of inpatient rehabilitation: N/A Follow up appointment made: N/A Barriers to making appointments: N/A Re-Hospitalized since DC: N/A Where is patient living: NA Date of discharge: 06/13/2023 Next Call follow up date: 12/12/2023 Attempted to contact pt's home number, it rings and rings. I then attempted to contact pt's mother. I reached her VMX. Left message requesting a return phone call to the [facility] Resource Nurse [phone]. [facility] NotePatient Outreach ([facility]VICTR) SAM JIMENEZ ([id number]) 1995 M Date Time Provider Department 09/17/23 ROMAN YEE HVICTR During your visit today, we recorded the following information about you: Alexandra Romero RN 09/17/2023 6:13 PM Signed AMB [facility] MOSAIC: Enrolled in [place]: Yes Date of Enrollment: 05/08/2023 Call Attempt: 2nd Attempt Call Status: Left message Date Call Completed: 09/17/2023 Contact states patient is feeling: N/A Patient understands plan of care: N/A Patient is taking Antibiotics: N/A Is patient sober at this time: N/A Have you had trouble with drugs since your hospitalization: NA Have you followed up with psych since your hospitalization: NA Do you need any additional information or resources: N/A Do you feel you have a good support system from family and/or friends: N/A Do you want someone from peer support to contact you: N/A Patient is taking medication assisted therapy: N/A Did patient complete any type of inpatient rehabilitation: N/A Follow up appointment made: N/A Barriers to making appointments: N/A Re-Hospitalized since DC: N/A Where is patient living: NA Date of discharge: 06/13/2023 Next Call follow up date: 12/12/2023 Attempted to contact pt's home number, it rings and rings. I then attempted to contact pt's mother. I reached her X. Left message requesting a return phone call to the [facility] Resource Nurse [phone]. Allergies As of Date: 09/17/2023 (No Known Allergies) Date Reviewed: 06/21/2023 Reviewed by: Cassandra Godoy LPN - Fully Assessed Reason for Visit: MOSAIC follow up [Other] Prescriptions as of 09/17/2023 - acetaminophen (TYLENOL) 325 mg tablet Take 2 tablets by mouth every 6 hours as needed (mild to moderate pain). - torsemide (DEMADEX) 20 mg tablet Take 1 tablet by mouth once daily. Patient should start on June 14, 2023. - aspirin 81 mg chewable tablet Take 1 tablet by mouth once daily. - ergocalciferol 50,000 unit capsule (VITAMIN D2, DRISDOL) Take 1 capsule by mouth one time a week. - melatonin 3 mg tablet Take 1 tablet by mouth daily at bedtime. - metoprolol succinate ER (TOPROL XL) 25 mg 24 hr tablet Take 1 tablet by mouth once daily. - MULTIVITAMIN-FERROUS FUMARATE-FOLIC ACID 18 MG-400 MCG TABLET Take 1 tablet by mouth daily with breakfast. - pantoprazole DR (PROTONIX) 20 mg tablet Take 1 tablet by mouth daily at 6 am. - senna-docusate (SENNA-S) 8.6-50 mg per tablet Take 1 tablet by mouth two times a day as needed. - spironolactone (ALDACTONE) 25 mg tablet Take 0.5 tablets by mouth once daily. 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.*05/08/2023 MRSA bacteremia [R78.81, B95.62] 05/08/2023 Acute septic pulmonary embolism (HCC) [I26.90] 05/08/2023 Acute midline thoracic back pain [M54.6] 05/08/2023 Intravenous drug abuse (HCC) [F19.10] 05/08/2023 Chronic hepatitis C without hepatic coma (HCC) *05/08/2023 Adjustment disorder with mixed anxiety and depr*05/09/2023 Opioid use disorder [F11.90] 05/09/2023 Cannabis use disorder [F12.90] 05/09/2023 History of intravenous drug use in remission [Z*05/16/2023 Substance abuse (HCC) [F19.10] 05/16/2023 Dental decay [K02.9] 05/17/2023 Malnutrition of moderate degree (HCC) [E44.0] 05/27/2023 Post-op pain [G89.18] 05/30/2023 On mechanically assisted ventilation (HCC) [Z99*05/30/2023 06/01/2023 Stress hyperglycemia [R73.9] 05/30/2023 06/02/2023 Acute pneumothorax [J93.83] 05/31/2023 USP (current) use of antibiotics [Z79.2] 06/01/2023 Encounter for support and coordination of trans*06/01/2023 Jugular vein thrombosis, 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] 06/03/2023 Superficial thrombophlebitis of left upper extr*06/03/2023 Summary [Z91.199] 06/06/2023 Anemia of chronic disease [D63.8] 06/06/2023 Acute right-sided heart failure (HCC) [I50.811] 06/06/2023 Iron deficiency [E61.1] 06/07/2023 Hypovitaminosis D [E55.9] 06/07/2023 S/P TVR (tricuspid valve repair) [Z98.890] 08/09/2023 Endocarditis of tricuspid valve [I07.9] 08/09/2023 Primary spontaneous pneumothorax [J93.11] 08/17/2023 Encounter Status:Closed by ALEXANDRA ROMERO on 09/17/23[facility] NoteHNO ID: [id number] Author: ALEXANDRA ROMERO RN Service: ? Author Type: Registered Nurse Type: Progress Notes Filed: 09/10/2023 18:57 Note Text: AMB [facility]: En[place] in [employer]: Yes Date of Enrollment: 05/08/2023 Call Attempt: 1st Attempt Call Status: Left message Date Call Completed: 09/10/2023 Date of discharge: 06/13/2023 Next Call follow up date: 09/11/2023 Attempted to contact pt and the phone rings and rings. I then attempted to call pt's mother and reached her VMX. I left message requesting a return phone call to the [facility] Resource Nurse at [phone]. [facility]05-[facility] History of Present illness Narrative* Alexandra Romero RN - 09/10/2023 6:53 PM EDT AMB [facility]AIC: Enrolled in [place]: Yes Date of Enrollment: 05/08/2023 Call Attempt: 1st Attempt Call Status: Left message Date Call Completed: 09/10/2023 Date of discharge: 06/13/2023 Next Call follow up date: 09/11/2023 Attempted to contact pt and the phone rings and rings. I then attempted to call pt's mother and reached her VMX. I left message requesting a return phone call to the [facility] Resource Nurse at [phone]. documented in this encounterAd[facility] NotePatient Outreach (HVICTR) SAM JIMENEZ ([id number]) 1995 M Date Time Provider Department 09/10/23 RICHY, XIAOYING HVICTR During your visit today, we recorded the following information about you: Alexandra Romero RN 09/10/2023 6:57 PM Signed AMB [facility]: Enrolled in [place]: Yes Date of Enrollment: 05/08/2023 Call Attempt: 1st Attempt Call Status: Left message Date Call Completed: 09/10/2023 Date of discharge: 06/13/2023 Next Call follow up date: 09/11/2023 Attempted to contact pt and the phone rings and rings. I then attempted to call pt's mother and reached her VMX. I left message requesting a return phone call to the TI Resource Nurse at [phone]. Allergies As of Date: 09/10/2023 (No Known Allergies) Date Reviewed: 06/21/2023 Reviewed by: Cassandra Godoy LPN - Fully Assessed Reason for Visit: MOSAIC follow up [Other] Prescriptions as of 09/10/2023 - acetaminophen (TYLENOL) 325 mg tablet Take 2 tablets by mouth every 6 hours as needed (mild to moderate pain). - torsemide (DEMADEX) 20 mg tablet Take 1 tablet by mouth once daily. Patient should start on June 14, 2023. - aspirin 81 mg chewable tablet Take 1 tablet by mouth once daily. - ergocalciferol 50,000 unit capsule (VITAMIN D2, DRISDOL) Take 1 capsule by mouth one time a week. - melatonin 3 mg tablet Take 1 tablet by mouth daily at bedtime. - metoprolol succinate ER (TOPROL XL) 25 mg 24 hr tablet Take 1 tablet by mouth once daily. - MULTIVITAMIN-FERROUS FUMARATE-FOLIC ACID 18 MG-400 MCG TABLET Take 1 tablet by mouth daily with breakfast. - pantoprazole DR (PROTONIX) 20 mg tablet Take 1 tablet by mouth daily at 6 am. - senna-docusate (SENNA-S) 8.6-50 mg per tablet Take 1 tablet by mouth two times a day as needed. - spironolactone (ALDACTONE) 25 mg tablet Take 0.5 tablets by mouth once daily. 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.*05/08/2023 MRSA bacteremia [R78.81, B95.62] 05/08/2023 Acute septic pulmonary embolism (HCC) [I26.90] 05/08/2023 Acute midline thoracic back pain [M54.6] 05/08/2023 Intravenous drug abuse (HCC) [F19.10] 05/08/2023 Chronic hepatitis C without hepatic coma (HCC) *05/08/2023 Adjustment disorder with mixed anxiety and depr*05/09/2023 Opioid use disorder [F11.90] 05/09/2023 Cannabis use disorder [F12.90] 05/09/2023 History of intravenous drug use in remission [Z*05/16/2023 Substance abuse (HCC) [F19.10] 05/16/2023 Dental decay [K02.9] 05/17/2023 Malnutrition of moderate degree (HCC) [E44.0] 05/27/2023 Post-op pain [G89.18] 05/30/2023 On mechanically assisted ventilation (HCC) [Z99*05/30/2023 06/01/2023 Stress hyperglycemia [R73.9] 05/30/2023 06/02/2023 Acute pneumothorax [J93.83] 05/31/2023 oil heaterman (current) use of antibiotics [Z79.2] 06/01/2023 Encounter for support and coordination of trans*06/01/2023 Jugular vein thrombosis, 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] 06/03/2023 Superficial thrombophlebitis of left upper extr*06/03/2023 Summary [Z91.199] 06/06/2023 Anemia of chronic disease [D63.8] 06/06/2023 Acute right-sided heart failure (HCC) [I50.811] 06/06/2023 Iron deficiency [E61.1] 06/07/2023 Hypovitaminosis D [E55.9] 06/07/2023 S/P TVR (tricuspid valve repair) [Z98.890] 08/09/2023 Endocarditis of tricuspid valve [I07.9] 08/09/2023 Primary spontaneous pneumothorax [J93.11] 08/17/2023 Encounter Status:Closed by ALEXANDRA ROMERO on 09/10/23[facility]23 NoteHNO ID: [id number] Author: ?, ?, ? Service: ? Author Type: ? Type: Progress Notes Filed: 07/22/2023 10:15 Note Text: [place] copat stop date [facility] History of Present illness Narrative* Patricio Adm Cordon Dino Grandea - 07/22/2023 10:15 AM EDT [place] copat stop date Patient cancelled follow up appointment documented [facility]Ad[facility] NoteHNO ID: [id number] Author: ALEXANDRA ROMERO RN Service: ? Author Type: Registered Nurse Type: Progress Notes Filed: 07/16/2023 10:07 Note Text: [facility]B [facility]: Enrolled in [place]: Yes Date of Enrollment: 05/08/2023 Call Attempt: 2nd Attempt Call Status: Left message Date Call Completed: 07/16/2023 Contact states patient is feeling: N/A Patient understands plan of care: N/A Patient is taking Antibiotics: N/A Is patient sober at this time: N/A Have you had trouble with drugs since your hospitalization: NA Have you followed up with psych since your hospitalization: NA Do you need any additional information or resources: N/A Do you feel you have a good support system from family and/or friends: N/A Do you want someone from peer support to contact you: N/A Patient is taking medication assisted therapy: N/A Did patient complete any type of inpatient rehabilitation: N/A Follow up appointment made: Yes Barriers to making appointments: N/A Re-Hospitalized since DC: N/A Where is patient living: NA Date of discharge: 06/13/2023 Next Call follow up date: 09/11/2023 Contacted:[facility] . Unable to speak with someone. I then attempted to contact pt's mother. Her home number rings and rings. I then called her mobile and reached her X. I left a message requesting a return phone call to the [facility] Resource Nurse [phone]. I also reminded her of pt's upcoming appts.[facility]03[facility] NotePatient Outreach (HVICTR) JIMENEZSAM ([id number]) 1995 M Date Time Provider Department 07/16/23 ROMAN YEE HVICTR During your visit today, we recorded the following information about you: Alexandra Romero RN 07/16/2023 10:07 AM Signed AMB [facility]: Enrolled in [place]: Yes Date of Enrollment: 05/08/2023 Call Attempt: 2nd Attempt Call Status: Left message Date Call Completed: 07/16/2023 Contact states patient is feeling: N/A Patient understands plan of care: N/A Patient is taking Antibiotics: N/A Is patient sober at this time: N/A Have you had trouble with drugs since your hospitalization: NA Have you followed up with psych since your hospitalization: NA Do you need any additional information or resources: N/A Do you feel you have a good support system from family and/or friends: N/A Do you want someone from peer support to contact you: N/A Patient is taking medication assisted therapy: N/A Did patient complete any type of inpatient rehabilitation: N/A Follow up appointment made: Yes Barriers to making appointments: N/A Re-Hospitalized since DC: N/A Where is patient living: NA Date of discharge: 06/13/2023 Next Call follow up date: 09/11/2023 Contacted:[facility] . Unable to speak with someone. I then attempted to contact pt's mother. Her home number rings and rings. I then called her mobile and reached her X. I left a message requesting a return phone call to the TI Resource Nurse [phone]. I also reminded her of pt's upcoming appts. Allergies As of Date: 07/16/2023 (No Known Allergies) Date Reviewed: 06/21/2023 Reviewed by: Cassandra Godoy LPN - Fully Assessed Reason for Visit: MOSAIC follow up [Other] Prescriptions as of 07/16/2023 - acetaminophen (TYLENOL) 325 mg tablet Take 2 tablets by mouth every 6 hours as needed (mild to moderate pain). - torsemide (DEMADEX) 20 mg tablet Take 1 tablet by mouth once daily. Patient should start on June 14, 2023. - glecaprevir-pibrentasvir (MAVYRET) 100-40 mg tablet Take 3 tablets by mouth once daily. Take with food. - aspirin 81 mg chewable tablet Take 1 tablet by mouth once daily. - ergocalciferol 50,000 unit capsule (VITAMIN D2, DRISDOL) Take 1 capsule by mouth one time a week. - melatonin 3 mg tablet Take 1 tablet by mouth daily at bedtime. - metoprolol succinate ER (TOPROL XL) 25 mg 24 hr tablet Take 1 tablet by mouth once daily. - MULTIVITAMIN-FERROUS FUMARATE-FOLIC ACID 18 MG-400 MCG TABLET Take 1 tablet by mouth daily with breakfast. - pantoprazole DR (PROTONIX) 20 mg tablet Take 1 tablet by mouth daily at 6 am. - senna-docusate (SENNA-S) 8.6-50 mg per tablet Take 1 tablet by mouth two times a day as needed. - spironolactone (ALDACTONE) 25 mg tablet Take 0.5 tablets by mouth once daily. 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.*05/08/2023 MRSA bacteremia [R78.81, B95.62] 05/08/2023 Acute septic pulmonary embolism (HCC) [I26.90] 05/08/2023 Acute midline thoracic back pain [M54.6] 05/08/2023 Intravenous drug abuse (HCC) [F19.10] 05/08/2023 Chronic hepatitis C without hepatic coma (HCC) *05/08/2023 Adjustment disorder with mixed anxiety and depr*05/09/2023 Opioid use disorder [F11.90] 05/09/2023 Cannabis use disorder [F12.90] 05/09/2023 History of intravenous drug use in remission [Z*05/16/2023 Substance abuse (HCC) [F19.10] 05/16/2023 Dental decay [K02.9] 05/17/2023 Malnutrition of moderate degree (HCC) [E44.0] 05/27/2023 Post-op pain [G89.18] 05/30/2023 On mechanically assisted ventilation (HCC) [Z99*05/30/2023 06/01/2023 Stress hyperglycemia [R73.9] 05/30/2023 06/02/2023 Acute pneumothorax [J93.83] 05/31/2023 oil heaterman (current) use of antibiotics [Z79.2] 06/01/2023 Encounter for support and coordination of trans*06/01/2023 Jugular vein thrombosis, 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] 06/03/2023 Superficial thrombophlebitis of left upper extr*06/03/2023 Summary [Z91.199] 06/06/2023 Anemia of chronic disease [D63.8] 06/06/2023 Acute right-sided heart failure (HCC) [I50.811] 06/06/2023 Iron deficiency [E61.1] 06/07/2023 Hypovitaminosis D [E55.9] 06/07/2023 Encounter Status:Closed by ALEXANDRA ROMERO on 07/16/23[facility] NoteHNO ID: [id number] Author: ALEXANDRA ROMERO RN Service: ? Author Type: Registered Nurse Type: Progress Notes Filed: 07/14/2023 20:03 Note Text: [facility]B [facility]: Enrolled in [place]: Yes Date of Enrollment: 05/08/2023 Call Attempt: 1st Attempt Call Status: Left message Date Call Completed: 07/14/2023 Date of discharge: 06/13/2023 Next Call follow up date: 07/15/2023 Attempted to contact pt at his mother's phone numbers. The home number rings and rings. I then called her cell and left a VMX requesting a return call to the [facility] Resource Nurse [phone]. [facility] and [phone]. Unable to get through.[facility]03-[facility] Note Patient Outreach (HVICTR) SAM JIMENEZ ([id number]) 1995 M Date Time Provider Department 07/14/23 ROMAN YEE During your visit today, we recorded the following information about you: Alexandra Romero RN 07/14/2023 8:03 PM Signed AMB [facility]: Enrolled in [place]: Yes Date of Enrollment: 05/08/2023 Call Attempt: 1st Attempt Call Status: Left message Date Call Completed: 07/14/2023 Date of discharge: 06/13/2023 Next Call follow up date: 07/15/2023 Attempted to contact pt at his mother's phone numbers. The home number rings and rings. I then called her cell and left a VMX requesting a return call to the [facility] Resource Nurse [phone]. [facility] and [phone]. Unable to get through. Allergies As of Date: 07/14/2023 (No Known Allergies) Date Reviewed: 06/21/2023 Reviewed by: Cassandra Godoy LPN - Fully Assessed Reason for Visit: MOSAIC follow up [Other] Prescriptions as of 07/14/2023 - acetaminophen (TYLENOL) 325 mg tablet Take 2 tablets by mouth every 6 hours as needed (mild to moderate pain). - torsemide (DEMADEX) 20 mg tablet Take 1 tablet by mouth once daily. Patient should start on June 14, 2023. - glecaprevir-pibrentasvir (MAVYRET) 100-40 mg tablet Take 3 tablets by mouth once daily. Take with food. - aspirin 81 mg chewable tablet Take 1 tablet by mouth once daily. - ergocalciferol 50,000 unit capsule (VITAMIN D2, DRISDOL) Take 1 capsule by mouth one time a week. - melatonin 3 mg tablet Take 1 tablet by mouth daily at bedtime. - metoprolol succinate ER (TOPROL XL) 25 mg 24 hr tablet Take 1 tablet by mouth once daily. - MULTIVITAMIN-FERROUS FUMARATE-FOLIC ACID 18 MG-400 MCG TABLET Take 1 tablet by mouth daily with breakfast. - pantoprazole DR (PROTONIX) 20 mg tablet Take 1 tablet by mouth daily at 6 am. - senna-docusate (SENNA-S) 8.6-50 mg per tablet Take 1 tablet by mouth two times a day as needed. - spironolactone (ALDACTONE) 25 mg tablet Take 0.5 tablets by mouth once daily. Problem List As Of Date 07/14/2023 Noted Resolved Infective endocarditis of tricuspid valve [I33.*05/08/2023 MRSA bacteremia [R78.81, B95.62] 05/08/2023 Acute septic pulmonary embolism (HCC) [I26.90] 05/08/2023 Acute midline thoracic back pain [M54.6] 05/08/2023 Intravenous drug abuse (HCC) [F19.10] 05/08/2023 Chronic hepatitis C without hepatic coma (HCC) *05/08/2023 Adjustment disorder with mixed anxiety and depr*05/09/2023 Opioid use disorder [F11.90] 05/09/2023 Cannabis use disorder [F12.90] 05/09/2023 History of intravenous drug use in remission [Z*05/16/2023 Substance abuse (HCC) [F19.10] 05/16/2023 Dental decay [K02.9] 05/17/2023 Malnutrition of moderate degree (HCC) [E44.0] 05/27/2023 Post-op pain [G89.18] 05/30/2023 On mechanically assisted ventilation (HCC) [Z99*05/30/2023 06/01/2023 Stress hyperglycemia [R73.9] 05/30/2023 06/02/2023 Acute pneumothorax [J93.83] 05/31/2023 USP (current) use of antibiotics [Z79.2] 06/01/2023 Encounter for support and coordination of trans*06/01/2023 Jugular vein thrombosis, 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] 06/03/2023 Superficial thrombophlebitis of left upper extr*06/03/2023 Summary [Z91.199] 06/06/2023 Anemia of chronic disease [D63.8] 06/06/2023 Acute right-sided heart failure (HCC) [I50.811] 06/06/2023 Iron deficiency [E61.1] 06/07/2023 Hypovitaminosis D [E55.9] 06/07/2023 Encounter Status:Closed by ALEXANDRA ROMERO on 07/14/23[facility] History of Present illness Narrative* Maria Del Carmen Randolph RPh - 07/05/2023 12:58 PM EDT Patient started on Mavyret as SNF resident. Plan Name Shraddha PHELPS reference number: [id number] Approval Dates: 05/20/23-07/14/23 Received VM from social tayler Cortes at [facility]. Stated that pt is getting discharge from facility and will require an additional prescription for Mavyret, as he will not complete the course prior to discharge. Pt has two weeks remaining of medication. Will send message to speciality pharmacy to determine if they can utilize the refill on file carmita sent to his home address. Purnima Roca RN Medication(s): Mavyret Total duration of treatment: 8 weeks Estimated Start Date: 06/20/23 Estimated Completion Date: 08/15/23 SVR12 11/07/23 Maria Del Carmen Randolph RPh documented in this encounterAdams [facility]03-19-2024 NoteHNO ID: [id number] Author: GUERLINE PIRES RPh Service: ? Author Type: Pharmacist Type: Progress Notes Filed: 07/11/2023 12:02 Note Text: [facility] received prescription(s) for Mavyret from Dr. Marina's office. Benefits investigation was conducted, indicating that a prior authorization is required. LEINN was approved with details listed below: Plan Name: Lucy LENIN reference number: [id number] Approval Dates: 05-20-23 to 07-14-23 Pt's copay is $0. Shipment has been arranged, and pt will receive medication(s) on 07-12-23. Upon receipt of the prescription, it was determined that patient is not new to medication but is new to [facility]. Therefore, a full drug interaction review was conducted, based on medication list provided in [facility]. No drug interactions were identified. At the time patient was contacted to set up delivery, pharmacy staff reviewed [facility] services and provided contact information for the pharmacy. Additionally, pharmacy staff confirmed medication name and current dose with patient. An offer was then extended for an opportunity to speak with a pharmacist regarding questions/concerns before the call was completed. S/he expressed understanding of the information provided. Initial shipment will include a handout detailing drug information including injection technique (if applicable), side effects and proper storage/handling requirements. PAST MEDICAL HISTORY Diagnosis Date HCV (hepatitis C virus) Infective endocarditis IVDU (intravenous drug user) ALLERGIES No Known Allergies Problem List Noted Noted By Resolved Resolved By Summary 06/06/2023 Edwin Galvan APRN.TRAVIS No Priority: Very Severe Overview Addendum 06/13/2023 9:00 AM by Edwin Galvan APRN.MIGRATION AGENT Indication for Surgery: IE Preop LVEF: 47%, LVH RVF: Low normal. 4+TR. Triv pc EKG: NSR Cards: Brualen Postop LVEF: Normal RVF: Moderate Important/Relevant PMH/PSH: 28 y/o male who presented for an opinion regarding treatment options for tricuspid insufficiency in the setting of Infectious Endocarditis. PMHx IVDU (used for 5 yrs up until 2022), Hep C, IE (MSSA bacteremia 05/10 - 0.7 cm vegetation on valve. Now with MRSA bacteremia 2.8 cm TV vegetation. Preoperative Hospital Course: Originally 04/20/22 patient had a YESSENIA which showed large vegetation 0.7x1.1 cm on right atrial aspect of the anterior leaflet of the tricuspid valve. He also had multiple pulmonary septic emboli with cavitary lesions. He underwent 6 weeks of IV nafcillin at nursing facility 05/10/22-05/30/22. Most recently he went to [facility] 04/28 with SOB. Found to have sepsis with MRSA bacteremia. CT chest showing PE and multiple pulmonary nodules with cavities. YESSENIA was done 05/02/23 showing 2.8 cm vegetation on TV leaflet with severe regurgitation. Tox screen positive for opiates, amphetamines, and cannabinoids. Patient denties any drug use in the past year. Patient did complain of back pain in which MRI lumbar was done with no evidence of osteomyelitis and possible abscess concern in the thoracic region which no surgical intervention was recommended per ortho. Airway Difficulty: No, Grade 1 VL Pacing Wires: Ventricular pulled 06/03/2023 Surgery: 05/30/2023: TVr, Prosthetic Ring (MC3 #28) Transfer to SDU on 06/01/2023 (pod 2) A/Plan: No wires or tubes -s/p TVr: ASA. Surg path AND echo reviewed (noting residual TR). Diuresed AND repeat echo 06/08 with +3-[address] 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 Continue IV lasix (in house) AND added aldactone. Cont Toprol -Incidental finding of RIJ thrombus vs. fibrin sheath. Seen by VM - rec repeat US in 5-7 days- no need for systemic AC at this time. Corrine placed instead of PICC. Repeated US- Negative for propagation of known superficial thrombophlebitis in the basilic vein axillary vein junction - continue supportive care. -Hep C (untreated). Seen by Hepatology. Sent treatment labs (genotype, HBsAg/Ab and core Ab, HIV, urine tox). Submited to specialty pharmacy prescription (Mavyret for 8 week course of therapy). Hepatology notified. Follow up appointment 06/21/23 - patient aware. -History of IVDU: Started on Clonidine prophylactically in ICU - tapered off 06/06. Tox Screen positive for fentanyl, amphetamines, cannabinoids. Evaluated by Psych pre-op. [employer] following AND have provided info with regard to local chemical dependency resources. Continue adjunct pain meds with opiate as needed. Consulted social work to revisit. -Seen by psych pre-op re: Adjustment disorder/depressed mood. Pharmacological Rx not indicated - advised to seek supportive care after discharge. Reconsulted psych on 06/07 for post-op re-eval (?role for Rx of depressi (more content not included)...[facility]03-19-2024 NoteHNO ID: [id number] Author: MARIA DEL CARMEN RANDOLPH RPh Service: ? Author Type: Pharmacist Type: Progress Notes Filed: 07/05/2023 13:03 Note Text: Patient started on Mavyret as SNF resident. Plan Name Shraddha PHELPS reference number: [id number] Approval Dates: 05/20/23-07/14/23 Received VM from social tayler Cortes at [facility]. Stated that pt is getting discharge from facility and will require an additional prescription for Mavyret, as he will not complete the course prior to discharge. Pt has two weeks remaining of medication. Will send message to speciality pharmacy to determine if they can utilize the refill on file to be sent to his home address. Purnima Roca RN Medication(s): Mavyret Total duration of treatment: 8 weeks Estimated Start Date: 06/20/23 Estimated Completion Date: 08/15/23 SVR12 11/07/23 Maria Del Carmen Randolph RPAdams County Hospital03-19-2024 NoteHNO ID: [id number] Author: GUERLINE PIRES RPh Service: ? Author Type: Pharmacist Type: Progress Notes Filed: 07/11/2023 12:08 Note Text: [facility] Visit Assessment - Hepatology: Is pre-assessment?: No Is initial or refill assessment?: No Is post-assessment?: Yes Vaccination Assessment: Annual influenza vaccination reminder: Yes Date of influenza vaccination reminder: 07/11/2023 Vaccination assessment completed: Yes Date of most recent vaccination assessment: 07/11/2023 End of Treatment Assessment: Treatment end date: 08/15/2023 Estimated date SVR12 should be drawn: 11/07/2023 The patient was reminded to follow-up with his/her provider regarding future tests. Guerline Pires [facility]03-19-2024 NoteHNO ID: [id number] Author: MARIA DEL CARMEN RANDOLPH RPh Service: ? Author Type: Pharmacist Type: Progress Notes Filed: 03/06/2024 15:01 Note Text: [facility] Discontinuation Assessment: Disease group: Hepatology Medication: MAVYRET 100 MG-40 MG TABLET Is this for hepatitis C treatment: Yes Did patient complete SVR-12: No Discontinue reason: Completed full course of therapy SVR-12 not complete reason: Lost to follow up Unable to get final blood test, patient is incarcerated. Maria Del Carmen Randolph, [facility]03-19-2024 Miscellaneous Notes* Telephone Encounter - Purnima Roca RN - 07/05/2023 12:36 PM EDT Received VM from Alphonso social work assistant at [facility]. Stated that pt is getting discharge from facility and will require an additional prescription for Mavyret, as he will not complete the course prior to discharge. Pt has two weeks remaining of medication. Will send message to speciality pharmacy to determine if they can utilize the refill on file carmita sent to his home address. Purnima Roca RN July 05, 2023 12:41 PM documented in this encounterAdams [facility] Hospital03-09-2024 History of Present illness Narrative* Alexandra Romero RN - 06/25/2023 5:13 PM EST AMB [facility]: En[place] in [place]: Yes Date of Enrollment: 05/08/2023 Call Attempt: 1st Attempt Call Status: Complete Date Call Completed: 06/25/2023 Source of Contact: Medical Professional (Judith PALOMINO) Contact states patient is feeling: N/A Patient understands plan of care: N/A Patient is taking Antibiotics: Yes Is patient sober at this time: Yes What helped them achieve this: NA Have you had trouble with drugs since your hospitalization: NA Have you followed up with psych since your hospitalization: NA Do you need any additional information or resources: N/A Do you feel you have a good support system from family and/or friends: N/A Do you want someone from peer support to contact you: N/A Patient is taking medication assisted therapy: No Did patient complete any type of inpatient rehabilitation: Unsure Follow up appointment made: Yes Barriers to making appointments: No Re-Hospitalized since DC: No Where is patient living: SNF Date of discharge: 06/13/2023 Next Call follow up date: 07/12/2023 Contacted [facility] [phone]. Provided Judith PALOMINO information with pt's upcoming appts on 08/11/23. documented in this encounterAdams County Hospital03-08-2024 Miscellaneous Notes* Telephone Encounter - Aleyda Echevarria HUC - 06/24/2023 3:14 PM EST [employer] requesting release of medical dates on pt for dates 05/31/23 - 06/03/23 Faxed to [phone] VALERIE Woods documented in this encounterAdams County Hospital03-08-2024 History of Present illness Narrative* Anurag Mesa RPh - 06/24/2023 12:04 PM EST Weekly OPAT labs reviewed. CBC stable. Scr 1.02 mg/dL - stable. Please see below for additional vancomycin recommendations. [facility] OPAT PHARMACIST VANCOMYCIN DOSING NOTE Patient Name: Sam Jimenez Date of Consult: 06/24/2023 Time of Consult: 12:05 PM Indication: Endocarditis Goal Range: 10-20 mcg/mL RECOMMENDATIONS/PLAN: Pharmacy consulted for vancomycin dosing for Sam Jimenez, a 28 year old male. 1. Patient is currently ordered vancomycin 1 g IV q12h. 2. The most recent vancomycin level was 13.5 mcg/mL drawn on 06/20/23. 3. The present dose of vancomycin is the recommended dosage for this patient at this time. Continuetherapy as prescribed. 4. The next vancomycin level will be collected Tuesday unless clinically indicated sooner. We will follow patient renal function, vancomycin levels and doses with you during the course of therapy. Additional recommendations will appear in follow up notes. If you have any questions, please contact Anurag Mesa RPh at [phone]. Age: [age] year old Allergies: ALLERGIES No Known Allergies Last 3 Encounter Wt Readings: Date: Wt: 06/21/2023 54.2 kg (119 lb 8 oz) 06/21/2023 55.5 kg (122 lb 5.7 oz) 05/03/2023 54.8 kg (120 lb 13 oz) Last 1 Encounter Ht Readings: Date: Ht: 06/21/2023 175.3 cm (5' 9) CrCl: 83.6 mL/min Labs BUN (mg/dL) Date Value 06/21/2023 26 (H) 06/13/2023 37 (H) 06/12/2023 35 (H) Creatinine Date Value 06/21/2023 1.02 mg/dL 06/20/2023 0.9 MG/DL 06/13/2023 1.04 mg/dL WBC Date Value 06/21/2023 9.29 k/uL 06/20/2023 8.3 K/uL 06/13/2023 8.55 k/uL Vancomycin Levels: Vancomycin (ug/mL) Date Value 06/11/2023 14.9 06/08/2023 31.0 (H) Anurag Mesa RPh documented [facility] Instructions* Patient Instructions* Soham Landaverde MD - 06/21/2023 2:34 PM EST To Do: - Please repeat your blood tests in 4weeks (around July 17) - Please get your blood tests done again in August 16 and then in October 16. documented in this encounterAd[facility] History of Present illness Narrative* Domingo Don MD - 06/21/2023 2:12 PM EST Hepatology Staff I saw and examined the patient. I agree with the fellow's findings and plan of care. 28 yo man referred for further evaluation of chronic HCV by Dr. Devries Remainder of past medical history is significant for: -h/o IVDU -h/o polysubstance abuse (marijuana, opioids and amphetamines) -h/o tobacco abuse -h/o MSSA bacteremia c/b IE 04/2022 -s/p IV abx w 6 weeks of IV nafcillin at nursing facility 05/10/22-05/30/22 -h/o MRSA bacteremia c/b large TV vegetation- c/b septic pulmonary emboli and possible epidural abscess vs hematoma. -h/o severe 4+ TR -s/p tricuspid valve repair 05/30/2023 Liver history is significant for the dx of chronic HCV ~ 2 yrs ago - G3 - reportedly offered treatment with an 8 week course, but not able to start it at the time. -s/p ultrasound elastography done 05/12/2023 IMPRESSION: No hepatic lesion. Borderline splenomegaly. The liver stiffness assessment was 9.49 kPa, suggestive of compensated advanced chronic liver disease but need further test for confirmation. -started on Rx w Mavyret for planned 8 week course Current Outpatient Medications on File Prior to Visit Medication Sig acetaminophen (TYLENOL) 325 mg tablet Take 2 tablets by mouth every 6 hours as needed (mild to moderate pain). torsemide (DEMADEX) 20 mg tablet Take 1 tablet by mouth once daily. Patient should start on June 14, 2023. glecaprevir-pibrentasvir (MAVYRET) 100-40 mg tablet Take 3 tablets by mouth once daily. Take with food. aspirin 81 mg chewable tablet Take 1 tablet by mouth once daily. ergocalciferol 50,000 unit capsule (VITAMIN D2, DRISDOL) Take 1 capsule by mouth one time a week. melatonin 3 mg tablet Take 1 tablet by mouth daily at bedtime. metoprolol succinate ER (TOPROL XL) 25 mg 24 hr tablet Take 1 tablet by mouth once daily. MULTIVITAMIN-FERROUS FUMARATE-FOLIC ACID 18 MG-400 MCG TABLET Take 1 tablet by mouth daily with breakfast. pantoprazole DR (PROTONIX) 20 mg tablet Take 1 tablet by mouth daily at 6 am. senna-docusate (SENNA-S) 8.6-50 mg per tablet Take 1 tablet by mouth two times a day as needed. spironolactone (ALDACTONE) 25 mg tablet Take 0.5 tablets by mouth once daily. vancomycin (VANCOCIN) 1 gram/200 mL in D5W Inject 200 mL intravenously every 12 hours for 18 days. No current facility-administered medications on file prior to visit. O/E BP 110/70 (BP Site: Right Arm, BP Position: Sitting, BP Cuff Size: Regular Adult) Pulse 100 Temp 36.4 C (97.5 F) (Temporal) Ht 175.3 cm (5' 9) Wt 55.5 kg (122 lb 5.7 oz) SpO2 99% BMI 18.07 kg/m Body mass index is 18.07 kg/m . skin: w+d HEENT: nc/at Chest: clear to A+P, port in place CVS: rrr Abd: soft, nt, nd. no masses, no palp hsm Ext: no c/c/e A/p 28 yo man with a history of previous IVDU, MRSA infective endocarditis, ultimately culminating in tricuspid valve replacement after presentation with septic pulmonary emboli,? Epidural abscess 05/30/2023 Had previously been diagnosed with chronic hepatitis C, genotype 3-no prior treatment till recent admission As an inpatient, underwent ultrasound acoustic radiation force impulse imaging- with suggestion of some fibrosis at baseline, with ultrasound suggestive of borderline splenomegaly Long discussion today re issues, including the natural history of hepatitis C, likelihood of progression, complications of liver disease, as well as specific treatment options, including the side effect profile of therapy, probability of response, and the evaluation necessary before embarking on therapy. Suggested: - Continue Mavyret as prescribed (planned course of ~8 weeks) - Labs, including FibroSure - Repeat HCVRNA by PCR, per protocol Follow-up in liver clinic in ~5-6 months (2 correlate with timing of repeat labs to document SVR). Domingo Don MD * Soham Landaverde MD - 06/21/2023 1:49 PM EST Images from the original note were not included. The [facility] [address] [place], [place] [address] Department of Gastroenterology and Hepatology Hepatology Clinic Note Consultation requested for an opinion regarding HCV. My final recommendations will be communicated back to the requesting physician by way of shared Medical record or letter to requesting physician via US mail. Chief Complaint: chronic HCV Referring Provider/PCP: Jay Jay Devries MD Last Clinic Visit: New patient HPI: Sam Jimenez is a 28 y/o with a hx of IVDU, endocarditis s/p TV resection, and HCV infection who presents for post-hospital follow up. He was previously seen in hospital by the hepatology consult team. He underwent TV resection for a large vegetation currently on vancomycin til the 06/26 and residing in a nursing facility. He started his medication Mayvret on 06/18 (prescribed 06/16 per JUN) and reports compliance right now. Denies any issues with taking the medications. Endorses some chest pain from his surgery, but otherwise feels well. PAST MEDICAL HISTORY Diagnosis Date HCV (hepatitis C virus) Infective endocarditis IVDU (intravenous drug user) PAST SURGICAL HISTORY Procedure Laterality Date HEART VALVE REPAIR tricuspid resection for endocarditis No family history on file. Social History Tobacco Use Smoking status: Every Day Types: Cigarettes Substance Use Topics Drug use: Yes Types: Amphetamines, Marijuana, Opiates Current Outpatient Medications on File Prior to Visit Medication Sig acetaminophen (TYLENOL) 325 mg tablet Take 2 tablets by mouth every 6 hours as needed (mild to moderate pain). torsemide (DEMADEX) 20 mg tablet Take 1 tablet by mouth once daily. Patient should start on June 14, 2023. glecaprevir-pibrentasvir (MAVYRET) 100-40 mg tablet Take 3 tablets by mouth once daily. Take with food. aspirin 81 mg chewable tablet Take 1 tablet by mouth once daily. ergocalciferol 50,000 unit capsule (VITAMIN D2, DRISDOL) Take 1 capsule by mouth one time a week. melatonin 3 mg tablet Take 1 tablet by mouth daily at bedtime. metoprolol succinate ER (TOPROL XL) 25 mg 24 hr tablet Take 1 tablet by mouth once daily. MULTIVITAMIN-FERROUS FUMARATE-FOLIC ACID 18 MG-400 MCG TABLET Take 1 tablet by mouth daily with breakfast. pantoprazole DR (PROTONIX) 20 mg tablet Take 1 tablet by mouth daily at 6 am. senna-docusate (SENNA-S) 8.6-50 mg per tablet Take 1 tablet by mouth two times a day as needed. spironolactone (ALDACTONE) 25 mg tablet Take 0.5 tablets by mouth once daily. vancomycin (VANCOCIN) 1 gram/200 mL in D5W Inject 200 mL intravenously every 12 hours for 18 days. No current facility-administered medications on file prior to visit. ROS: (Reviewed and Negative Unless Underlined) General: Fatigue, Weight loss, Chills, Fevers Neuro: Confusion, headache, dizziness, numbness Eyes: Double vision, blurred vision, pain, discharge, yellowing Mouth: Sores, pain, dryness Cardiovascular: Palpitations, chest pain, shortness of breath, MSK wall pain Lungs: Cough, difficulty breathing, sputum Abd: Swelling, pain, nausea, vomiting, diarrhea, constipation, bleeding Extremities: Swelling, bruising, rash Skin: Yellowing, itching, lesions Psych: Depression, anxiety, hallucinations OBJECTIVE: BP 110/70 (BP Site: Right Arm, BP Position: Sitting, BP Cuff Size: Regular Adult) Pulse 100 Temp 36.4 C (97.5 F) (Temporal) Ht 175.3 cm (5' 9) Wt 55.5 kg (122 lb 5.7 oz) SpO2 99% BMI 18.07 kg/m GENERAL: Thin, No distress, Cooperative SKIN: Skin color, texture, turgor normal. No rashes or lesions. HEENT: PERRL, EOMI, and normal dentition JVD: No jugulovenous distention CARDIAC: Healed sternotomy scar. Normal S1 and S2; no rubs, murmurs, or gallops LUNGS: Lungs clear to auscultation. Good diaphragmatic excursion. ABDOMEN: Abdomen soft, non-tender. BS normal. No masses or organomegaly. EXTREMITIES: Extremities normal. No deformities, edema, clubbing or skin discoloration. NEURO: Cranial nerves II-XII intact, Gait normal. Reflexes normal and symmetric. Sensation grossly intact. PULSES: 2+ radial : not examined/not indicated. WBC (k/uL) Date Value 06/13/2023 8.55 RBC (m/uL) Date Value 06/13/2023 4.43 Hemoglobin (g/dL) Date Value 06/13/2023 12.0 (L) Hematocrit (%) Date Value 06/13/2023 38.0 (L) MCV (fL) Date Value 06/13/2023 85.8 MCH (pg) Date Value 06/13/2023 27.1 MCHC (g/dL) Date Value 06/13/2023 31.6 RDW-CV (%) Date Value 06/13/2023 15.1 (H) Platelet Count (k/uL) Date Value 06/13/2023 494 (H) MPV (fL) Date Value 06/13/2023 9.3 Glucose (mg/dL) Date Value 06/13/2023 87 BUN (mg/dL) Date Value 06/13/2023 37 (H) Creatinine (mg/dL) Date Value 06/13/2023 1.04 Sodium (mmol/L) Date Value 06/13/2023 135 (L) Potassium (mmol/L) Date Value 06/13/2023 4.6 Chloride (mmol/L) Date Value 06/13/2023 98 CO2 (mmol/L) Date Value 06/13/2023 26 Protein, Total (g/dL) Date Value 06/13/2023 8.8 (H) Albumin (g/dL) Date Value 06/13/2023 4.2 Calcium, Total (mg/dL) Date Value 06/13/2023 10.4 (H) Alkaline Phosphatase (U/L) Date Value 06/13/2023 131 (H) Bilirubin, Total (mg/dL) Date Value 06/13/2023 0.3 AST (U/L) Date Value 06/13/2023 46 (H) ALT (U/L) Date Value 06/13/2023 89 (H) INR (no units) Date Value 05/08/2023 1.2 MELD 3.0: 9 at 05/10/2023 1:39 PM MELD-Na: 8 at 05/10/2023 1:39 PM Calculated from: Serum Creatinine: 0.92 mg/dL (Using min of 1 mg/dL) at 05/10/2023 1:39 PM Serum Sodium: 136 mmol/L at 05/10/2023 1:39 PM Total Bilirubin: 0.2 mg/dL (Using min of 1 mg/dL) at 05/10/2023 1:39 PM Serum Albumin: 3.0 g/dL at 05/10/2023 1:39 PM INR(ratio): 1.2 at 05/08/2023 4:01 AM Age at listing (hypothetical): 28 years Sex: Male at 05/10/2023 1:39 PM Disclaimer: The MELD Calculator cannot calculate MELD scores for patients on dialysis. FIB-4 Calculation: 0.28 at 06/13/2023 5:40 AM Calculated from: SGOT/AST: 46 U/L at 06/13/2023 5:40 AM SGPT/ALT: 89 U/L at 06/13/2023 5:40 AM Platelets: 494 k/uL at 06/13/2023 5:40 AM Age: 28 years Imaging: RUQ US (06/01/2023): IMPRESSION: No hepatic lesion. Gallbladder sludge. No cholelithiasis. No biliary dilatation. No splenomegaly. Elastography 05/12/2023: IMPRESSION: No hepatic lesion. Borderline splenomegaly. The liver stiffness assessment was 9.49 kPa, suggestive of compensated advanced chronic liver disease but need further test for confirmation. Note: Acoustic radiation force impulse (ARFI) liver stiffness assessment has been validated in patients with viral hepatitis and non-alcoholic fatty liver disease (NAFLD). Values may be elevated in clinical situations other than fibrosis, such as active hepatic inflammation, cholestasis, hepatic congestion (cardiac failure), infiltrative diseases or in the post-prandial state. Endoscopies: None Assessment and Plan: 28 y/o with a hx of IVDU, endocarditis s/p TV resection, and HCV infection who presents for post-hospital follow up. He was started on Mayvret for 8weeks of treatment (began 06/18? Per patient). No issues with the medications at this time. Stressed the importance of adhering to the treatment. He did have an elastography which showed an increased kPA of 9.49, but his Fib4 does not suggest fibrosis. He has no obvious signs of liver disease at present. # Chronic HCV infection: - Repeat labs in 4 weeks to monitor treatment response - Will obtain VL SVR labs at end treatment and 12wks post treatment - Will plan to repeat fibrosis staging at the conclusion of the treatment to monitor Patient discussed with the staff instrument technologist, Dr. Don. Soham Landaverde MD, PhD Transplant Hepatology Fellow documented in this encounterAd[facility]03-[facility] History of Present illness Narrative* Alexandra Williamson, RT(R) - 06/21/2023 12:15 PM EST Radiology Service Progress Note PATIENT NAME: Sam Jimenez DATE OF SERVICE: June 21, 2023 TIME: 12:17 PM PATIENT IDENTITY VERIFICATION COMPLETED USING TWO (2) IDENTIFIERS: Name and Date of confirmedby patient verbally. FALL SCREENING: Has the patient had 2 falls in the last year or 1 fall with injury or currently using an Ambulatory Assistive Device (Walker, Cane, Wheelchair, Crutches, etc.)? No PATIENT GENDER DATA: Male PATIENT RELEVANT IMPLANT DATA REVIEWED: Not Applicable PATIENT PRESENTS WITH AN IMPLANTABLE OR ATTACHED SPINNER FRAME: No RADIOLOGY DEPARTMENT: General X-ray: Exam(s) Completed: Chest X-Ray PERIPHERAL IV DATA: Not applicable SIGNED BY: RT Yung(R) June 21, 2023 12:17 PM documented in this encounterAd[facility]02-27-2024 History of Present illness Narrative* Alexandra Romero RN - 06/14/2023 7:50 PM EST AMB [facility] INTAKE [facility]: Date of Admission: 05/08/2023 Living Status Prior to Surgery: Family Member (Mother) Substance Use Disorder: Opiates, Amphetamines and Marijuana (Fentanyl and cannibas, pt denies any drug use except marijuana) Medical issues: Tricuspid Surgery performed: Tricuspid Valve Repair (MC3 #28) Date of Surgery: 05/30/2023 Surgeon: Roman Yee MD Does the patient have infective endocarditis: Yes Treatment Plan: Surgical Prior medication assisted treatment: No Inpatient Psych evaluation: Yes Before admission: No During admission: Yes Accepted project [facility] inpatient: Yes Discharge Destination: SNF Discharge on MAT: No Enrolled in [facility] Program: Needs follow up Next call follow up date: 06/20/2023 Date of Discharge: 06/13/2023 05/10/23 Psyche note We were consulted for substance use disorder 04/28: Utox from OSH + opiates, cannabinoids, amphetamines 05/08 Fentanyl Urine: Positive. He did not receive fentanyl in medical facilty per report. He denies any use of any drugs except smoking cannabis, despite discussion recent UTOX finding. Pt discharged to: New accepting SNF: [facility] , [address], [place] documented in this encounterAd[facility]02-12-[facility]24 History of Past illness Narrative* Problem Noted Date Diagnosed Date Resolved Date On mechanically assisted ventilation 05/30/2023 06/01/2023 Stress hyperglycemia 05/30/2023 024 documented as of this encounter (statuses as of 06/03/2023) [address]12-2024 History of Past illness Narrative* Problem Noted Date Diagnosed Date Resolved Date On mechanically assisted ventilation 05/30/2023 06/01/2023 Stress hyperglycemia 05/30/2023 024 documented as of this encounter (statuses as of 06/10/2023) [facility] of Past illness Narrative* Problem Noted Date Diagnosed Date Resolved Date On mechanically assisted ventilation 05/30/2023 06/01/2023 Stress hyperglycemia 05/30/2023 024 documented as of this encounter (statuses as of 06/14/2023) [facility] History of Past illness Narrative* Problem Noted Date Diagnosed Date Resolved Date On mechanically assisted ventilation 05/30/2023 06/01/2023 Stress hyperglycemia 05/30/2023 024 documented as of this encounter (statuses as of 06/15/2023) [facility] of Past illness Narrative* Problem Noted Date Diagnosed Date Resolved Date On mechanically assisted ventilation 05/30/2023 06/01/2023 Stress hyperglycemia 05/30/2023 024 documented as of this encounter (statuses as of 06/15/2023) [facility] of Past illness Narrative* Problem Noted Date Diagnosed Date Resolved Date On mechanically assisted ventilation 05/30/2023 06/01/2023 Stress hyperglycemia 05/30/2023 024 documented as of this encounter (statuses as of 06/22/2023) [facility] of Past illness Narrative* Problem Noted Date Diagnosed Date Resolved Date On mechanically assisted ventilation 05/30/2023 06/01/2023 Stress hyperglycemia 05/30/2023 024 documented as of this encounter (statuses as of 06/24/2023) [facility] of Past illness Narrative* Problem Noted Date Diagnosed Date Resolved Date On mechanically assisted ventilation 05/30/2023 06/01/2023 Stress hyperglycemia 05/30/2023 024 documented as of this encounter (statuses as of 06/24/2023) [facility] of Past illness Narrative* Problem Noted Date Diagnosed Date Resolved Date On mechanically assisted ventilation 05/30/2023 06/01/2023 Stress hyperglycemia 05/30/2023 024 documented as of this encounter (statuses as of 06/25/2023) [facility] of Past illness Narrative* Problem Noted Date Diagnosed Date Resolved Date On mechanically assisted ventilation 05/30/2023 06/01/2023 Stress hyperglycemia 05/30/2023 024 documented as of this encounter (statuses as of 07/05/2023) [facility] of Past illness Narrative* Problem Noted Date Diagnosed Date Resolved Date On mechanically assisted ventilation 05/30/2023 06/01/2023 Stress hyperglycemia 05/30/2023 024 documented as of this encounter (statuses as of 07/06/2023) [facility] of Past illness Narrative* Problem Noted Date Diagnosed Date Resolved Date On mechanically assisted ventilation 05/30/2023 06/01/2023 Stress hyperglycemia 05/30/2023 024 documented as of this encounter (statuses as of 07/22/2023) [facility] History of Present illness Narrative* Troy Gomez MD - 05/12/2023 7:55 AM EST From my 06/01/23 inpt ID consult progress note Component Latest Ref Rng & Units 05/12/2023 HIV 12 Combo (Ag/Ab) Nonreactive Nonreactive HIV Interpretation Negative Hepatitis A IgG Positive (IMMUNE) Hep B Surface Ab, Qual Positive (IMMUNE) Hep B Surf Ab Quant mIU/mL 421.37 Hep B Surface Ag Negative Negative Hep B Core Ab, Total Negative Negative Microbiology data: reviewed to date - see below for recent significant data - select data provided 05/30 nares - NO Staph aureus 05/30 - TV tissue: All smears and culture negative so far. Following endocarditis protocol. 2/6 nares - NO Staph aureus - AFTER Mupirocin decolonization 05/13 - hepatitis C genotype: Genotype 3 05/12-HIV 04/19 screening-nonreactive 05/12-hepatitis B -hepatitis B surface antibody positive consistent with vaccine immunity 05/12 hepatitis A IgG positive consistent with immunity 05/[id number]-[id number] colonization 05/08-blood culture- Negative -FINAL 05/08 HCV RNA quant -777,000 Recent HIV OS 04/30/23 non reactive Syphilis - negative [facility] Microbiology 04/28/23 Blood culture: Methicillin-Resistant Staphylococcus aureus SUSCEPTIBILITY RESULTS Methicillin-Resistant Staphylococcus aureus Antibiotic Tetracycline <=4 Susceptible Trimethoprim/ Sulfa <=0.5/9.5 Susceptible Vancomycin 1 Susceptible Ampicillin/ Sulbactam <=8/4 Resistant Azithromycin >4 Resistant Cefepime 8 Resistant Cefotaxime <=8 Resistant Ceftaroline <=0.5 Susceptible Ceftriaxone <=4 Resistant Ciprofloxacin <=1 Susceptible Clindamycin <=0.25 Susceptible Daptomycin <=0.5 Susceptible Erythromycin >4 Resistant Imipenem <=4 Resistant Levofloxacin <=1 Susceptible Linezolid 2 Susceptible Meropenem <=2 Resistant Oxacillin >2 Resistant Penicillin >2 Resistant Rifampin <=1 Susceptible Imaging personally reviewed radiology and other relevant imaging 05/14 CT BRAIN; CHEST; A/P - no signif change in Chest CT -- otherwise unremarkable - see full reports for details 05/14 LIVER US US Elastography liver: No hepatic lesion. Borderline splenomegaly. The liver stiffness assessment was 9.49 kPa, suggestive of compensated advanced chronic liver disease but need further test for confirmation. 05/13 - Dental Panorex - done Multiple signs of significant dental decay Examination of oral cavity & dentition reveals retained root tips, generalized caries, and teeth with radiographic and clinical signs/symptoms of apical periodontitis. ECHO: YESSENIA (05/02/2023) Left ventricle: The cavity size is normal wall thickness is normal systolic function is normal withestimated ejection fraction is 50 to 55%. Aortic valve: There is no evidence of a vegetation. Mitral valve: There is no evidence of vegetation. Left atrium: There is no evidence of thrombus in the atrial cavity or appendage. Pulmonic valve: There is no evidence of a vegetation. Tricuspid valve: There is a 2.8 cm sized vegetation on the septal leaflet. There is severe regurgitation. Right atrium: The atrium is dilated. Atrial septum: No defect or patent foramen ovale is identified. ECHO: YESSENIA (04/20/2022) - in part ... 6. Tricuspid valve: There is a large, 0.7 cm (W) x 1.1 cm (L), mobile vegetation on the right atrial aspect of the anterior leaflet. There is a slightly smaller mobile vegetation of the RA aspect of the posterior leaflet as well. 7. Right atrium: There is no evidence of a thrombus in the atrial cavity or appendage. 8. Atrial septum: No defect or patent foramen ovale is identified. Echo contrast study following anincrease in RA pressure induced by provocative maneuvers, shows no [id number] atrial level shunt. MRI SPINE: more recent than 05/03/2023 (comparison) IMPRESSION: No osteomyelitis, discitis, or epidural abscess. MRI spine thoracic w/o contrast 05/03/2023: Epidural abscess or hematoma in the upper thoracic canal, most prominent at the T2-T3 level. Bilateral consolidation and pleural effusions. MRI spine lumbar w/o contrast: 05/03/2023 unremarkable. 04/29/2023 CT chest Visualized chest and abdomen: Small bilateral pleural effusion and multiple pulmonary nodules some demonstrating cavitation as seen on the CT chest of reference. 05/01/23 US ABDO The gallbladder is contracted with gallbladder wall thickening and pericholecystic fluid. No gallstones are detected. The patient is not tender in the region of the gallbladder. Differential diagnosis includes acute or chronic cholecystitis. Imaging ~ 1 year ago 04/18/2022 CT Abdomen/Pelvis w/Contrast OSH Nena: IMPRESSION: 1. Question mild areas of hypoenhancement within right kidney, which maybe within wide range of normal. If concern for pyelonephritis,correlate with urinalysis. 2. Borderline splenomegaly. 3. Interval development of small left pleural effusion with underlyingatelectasis. 4. Redemonstration of cavitary and non cavitary lung nodules. DATA: Diagnostic Tests Reviewed for Today's Visit: Most recent labs and imaging results. Impression/Recommendations 28 yo M from [facility] [place] valve (TV) Infective Endocarditis (MRSA) Episode now #19 Apr 2022 -- MSSA bacteremia & TV endocarditis [ONE YEAR ago @ [facility]] - Rx'd Nafcillin 05/10/22-05/30/22 (No surgery at that time) Infection Type: community acquired Activity: Active Rx: Daptomycin + Ceftaroline at [facility] prior to transfer to [facility] --> Transition to IV Vanco c/b LARGE TV vegetation (05/02/23 est 2.8cm) c/b Acute septic pulmonary emboli 05/30/23 - TRICUSPID VALVE PROCEDURE: TV Repair Type: Annuloplasty. Type: Prosthetic Ring. Ring/BandType: MC3. MC3 Size: 28 Pannus/Thrombus Removal ([place] Valve) Location: Septal. Leaflet Patch Augmentation: Location: Septal. [place]ord: Location: Septal Adjustment disorder with mixed anxiety and depressed mood Opioid use disorder - incl Oxycodone & Fentenyl urine - prelim positive this admit Cannabis use disorder Hx Intravenous drug abuse (Pt states last Apr 2022 - while recent UTox positive - Pt states not using via IV route) - Social work has referred patient to [facility] THIS ADMIT; a peer mentor from [employer] willvisit pt at bedside or contact via phone Chronic hepatitis C --- Not previously treated. Viremic now 777,000 IU/mL -- Genotype 3. - Hepatology planning to Rx after recovery from TV repair surgery Hepatitis A & hepatitis B both showing immune serology testing. Helpful to indicate patient does NOT need vaccination against hepatitis A or hepatitis B ASYMPTOMATIC -- US 05/01/23 showing gallbladder is contracted with gallbladder wall thickening and pericholecystic fluid. No prior fatty food intolerance in the past - Of note surgical comment on prior recent abdo CT w/contracted GB and pericholecystitis fluid and mild GB wall thickening. Surgery at OSH deferred to OP setting but recommended gram negative coverage to prevent GB worsening. Plan: -Elective cholecystectomy OP; will need follow up scheduled Per Cardiology team notes: OK for surgery Per CTS request: Dental Clearance - (05/23) Extracted: Teeth #1, 4, 12, 14, 16, 17, 18, 19, 28, 29, 30, 32. PFTs - 05/16/23. FEV1 = 52%; FVC = 55%; FEF 25-75 = 47%; DLCO = 46% -see full report for details FINISHED Mupirocin nares BID x 5 days 05/13 --> 05/18/23 RECOMMENDATIONS: CONTINUE IV Vancomycin. Aim for pre-dose level 10-25. 05/30/2023 TV repair ... - Lung cavitary lesions almost certainly septic pulmonary emboli which should respond over time to current assertive antibiotic therapy - Dental extractions (05/23/23). Extraction site healing - With viremic HCV - appreciate Hepatology input. . Rx options to be done in future after recovery from OHSurgery. OPD follow up scheduled for 06/01/23 - PER Hepatology genotype 3 does not change their recommendations. - Consensus is to start treatment for hepatitis C after recovery from tricuspid valve surgery NO current ID contraindications to proceed with any necessary procedures including open heart surgery and TV repair or Replacement at this time. Will plan on COPAT IV Vanco post procedure ... After TVR could reimage RUQ and see status of GB to help decide if additional GNB coverage warranted OK for PICC line if needs for IV access. Prefer to not place tunneled line prior to surgery. Please reconsult if further ID input is needed, or new ID issues arise, or when pt has had TVR surgery -- as he will likely need COPAT following surgery - cannot write COPAT prior to surgery, as surgical findings impact the nature and duration of COPAT - also, After TVR favor reimage RUQ to see status of GB to help decide if additional GNB coveragewarranted. [facility] Progress note Date of Service 05/07/2023 ID following for MRSA bacteremia in the setting of tricuspid valve endocarditis. Stay has been further complicated by acute cholecystitis, now ruled out osteomyelitis/discitis with epidural abscess. Awaiting transfer to [facility]. Continue present antibiotics. ID to continue to follow. Digitally Signed by MITCH PAIGE on 05/07/2023 01:56 PM [id number] Note Date of Service 05/07/2023 Chief Complaint Tricuspid valve endocarditis Subjective Complains of some back pain unchanged mild in severity. Denies any change in vision or focal deficits. Awaiting transfer to [facility]. Objective Vitals and Measurements T: 37.1 C (Oral) TMIN: 36.7 C (Oral) TMAX: 37.7 C (Oral) HR: 90(Monitored) RR: 18 BP: 125/95 SpO2: 93% Intake and Output 7AM Yesterday to 7AM Today Intake and Output (Last 24 hours) Intake Oral Intake 2160.00 Output Urine Voided 725.00 Stool Count 1.00 Urine Count 9.00 Total Summary Total Intake 2160.00 Total Output 725.00 Fluid Balance 1435.00 Physical Exam Constitutional: no distress, appears stated age, thin ENT: No thyroid masses Respiratory: Clear to auscultation, no adventitious sounds Cardiovascular: RRR, S1 and S2, systolic murmur in the left lower sternal border, JVP 8-10 cm H2O, no pedal edema GI: Soft, nondistended, bowel sounds present Musculoskeletal: no deformity Skin: Warm to touch, dry Neurological: Alert and oriented Weight Dosing Weight: 59.1 kg (04/28/23) Medications Medications (17) Active Scheduled: (8) ceftaroline 600 mg 20 mL, IV Piggyback, q12hr DAPTOmycin 500 mg 10 mL, IV Piggyback, qDay docusate-senna (Senokot S) 50 mg-8.6 mg Tablet 2 tab(s), Oral, qHS enoxaparin 60 mg/ 0.6 mL syringe 60 mg 0.6 mL, Subcutaneous, q12h metoprolol tartrate 25 mg tablet 25 mg 1 tab(s), Oral, BIDM metronidazole PMX 500 mg 100 mL, IV Piggyback, q8h oxyCODONE 10 mg ER tablet 20 mg 2 tab(s), Oral, q12h polyethylene glycol 3350 - UD packet 17 gram(s) 15 mL, Oral, qDay Continuous: (0) PRN: (9) acetaminophen 325 mg Tablet 650 mg 2 tab(s), Oral, q6hWA acetaminophen 325 mg Tablet 650 mg 2 tab(s), Oral, q4h dextrose 50% Solution Disp syringe 50 mL 12.5 gram(s) 25 mL, IV Push, AsDirected diazepam 5 mg/mL 2mL SYRINGE 2.5 mg 0.5 mL, IV Push, q6hr hydromorphone 2 mg tablet 1 mg 0.5 tab(s), Oral, q6hr melatonin 3 mg tablet 3 mg 1 tab(s), Oral, qHS melatonin 3 mg tablet 3 mg 1 tab(s), Oral, qHS ondansetron 2 mg/ 1 mL 2 mL INJ 4 mg 2 mL, IV Push, q4h ondansetron 4 mg DIS tablet 4 mg 1 tab(s), Oral, q6h Lab Results 05/06 05:45 WBC: 13.9 H Hgb: 8.3 L Hct: 25.2 L Platelet: 345 Neutrophil %: 77.5 H Glucose Level: 80 Sodium Level: 137 Potassium Level: 4.6 BUN: 10.0 Creatinine Lvl (s): 0.78 EKG No qualifying data available. Assessment/Plan Back pain Endocarditis of tricuspid valve IV drug abuse MRSA bacteremia Pulmonary emboli Septic embolism Transaminitis Sepsis present on admission MRSA bacteremia Thoracic canal epidural abscess Endocarditis, tricuspid valve, 2.8 cm Bilateral cavitary nodules, septic emboli. Pulmonary emboli, left upper lobe Active hepatitis C Transaminitis Polysubstance abuse Hyponatremia Hyperglycemia -> Heart rate controlled -> ID following, Patient is on Flagyl, ceftaroline, daptomycin. (MRSA plus gallbladder concerns,hence gram-negative coverage). Surgery recommends against gallbladder removal at this time. Should be completed as an outpatient after bacteremia/endocarditis is controlled. -> Pending transfer to [facility] for consideration of surgery. -> Continue pain control with oxycodone/Dilaudid. -> Lovenox twice daily for PE. -> Continue bowel regimen to prevent constipation given opiate use DVT therapeutic Lovenox Full code Dispo: Pending transfer to [facility] Digitally Signed by MASHA NUR MD on 05/07/2023 12:30 PM [id number] Note Date of Service 05/06/23 Chief Complaint Patient is a 28-year-old male with past medical history of prior endocarditis with septic emboli, prior IV drug use, tobacco use, self-reported hepatitis C, who presented from [place] emergency department on 04/28/2023 with a chief complaint of shortness of breath. In the emergency department patient was tachycardic at 136, hypotensive at 92/58, tachypneic at 22.CBC showed leukocytosis of 24.3, Hgb 13.2. D-dimer elevated at 2831. CMP showed sodium 132, slight transaminitis noted. Toxicology screen was positive for opiates, cannabinoids, amphetamines. Patientis flu/COVID/RSV negative. CT angiography shows paraseptal emphysema, left upper lobe pulmonary embolism (started on Lovenox twice daily), multiple bilateral pulmonary nodules many of which are cavitated. Some are new. Septic emboli/atypical infectious process possible. Patient was started on ceftriaxone/Levaquin/fluids. After admission, infectious disease was consulted. Patient's blood culture ended up growing MRSA. Therefore he was transitioned to Dapto and ceftaroline. CT of the head did not show any acute abnormality. CT of the abdomen showed contracted gallbladder with pericholecystic fluid and mild gallbladder wall thickening possibly due to cholecystitis/hypoproteinemia. Given these gallbladder findings, ultrasound was ordered and surgery was consulted. Echo was completed showing large tricuspid vegetation. Cardiology consulted for YESSENIA. YESSENIA was completed on 05/02/2023 showing a 2.8 cm sized vegetation on the septal leaflet of the tricuspid valve with associated severe regurgitation. Due to continued back pain, MRI lumbar and thorax was completed. This showed a possible epidural abscess or hematoma in the upper thoracic canal most prominently in the T2/T3 level. He has bilateral consolidation and pleural effusions. Initial MRI was unable to be completed with contrast so repeat MRI was attempted. Thiswas completed and showed that the previous lesion is actually thoracic rotary levoscoliosis. No sign of discitis on MRI. [facility] reviewed case. No significant findings necessitating urgent surgery prior to transfer. Due to concern for long-term sequelae secondary to large vegetation/severe tricuspid damage, CT surgery was consulted. After review of the above information, they recommended transfer to the [facility] which is the closest [place] that has a comprehensive program for endocarditiswhich includes drug rehabilitation. Simply performing surgery would otherwise be meaningless. Therefore transfer was initiated on 05/03/2023. Dr. Mahsa Grigsby, cardiology has accepted. -> With regards to patient's gallbladder, surgery recommended holding off on any surgical intervention given significant sepsis/endocarditis. They recommend including gram-negative coverage with antibiotics to prevent worsening of gallbladder. Patient should have gallbladder removed on an elective basis. -> Hepatitis C positive, hepatitis C quantification 534,000. Will need outpatient GI follow-up for treatment. Subjective Patient seen and examined. No new acute complaints or concerns. Heart rate noted to be slightly elevated. Metoprolol increased. Otherwise patient is eating and drinking, acidosis is resolved, electrolyte abnormalities have resolved. Believes he is slowly improving. Objective Vitals and Measurements T: 36.8 C (Oral) TMIN: 36.8 C (Oral) TMAX: 37.5 C (Oral) HR: 108(Monitored) RR: 18 BP: 122/87 SpO2:96% Intake and Output 7AM Yesterday to 7AM Today Intake and Output (Last 24 hours) Intake Output Urine Voided 1000.00 Total Summary Total Intake 0.00 Total Output 1000.00 Fluid Balance -1000.00 Physical Exam Constitutional -thin, alert oriented, no gross deformities Head - atraumatic, normocephalic Eyes - Pupils equal, round, reactive to light, no conjunctival injection, extra ocular movements grossly intact, no scleral icterus Ears, Nose, and Throat - trachea midline no lesions Respiratory - Clear to auscultation without rales, rhonchi, wheezing or diminished breath sounds Cardiovascular -tachycardic, murmur present Gastrointestinal (Abdomen) - Bowel sounds present Musculoskeletal - gait normal, no obvious deformity, swelling, or clubbing. Skin: Skin normal color, texture and turgor with no lesions or eruptions Weight Dosing Weight: 59.1 kg (04/28/23) Medications Medications (17) Active Scheduled: (8) ceftaroline 600 mg 20 mL, IV Piggyback, q12hr DAPTOmycin 500 mg 10 mL, IV Piggyback, qDay docusate-senna (Senokot S) 50 mg-8.6 mg Tablet 2 tab(s), Oral, qHS enoxaparin 60 mg/ 0.6 mL syringe 60 mg 0.6 mL, Subcutaneous, q12h metoprolol tartrate 25 mg tablet 25 mg 1 tab(s), Oral, BIDM metronidazole PMX 500 mg 100 mL, IV Piggyback, q8h oxyCODONE 10 mg ER tablet 20 mg 2 tab(s), Oral, q12h polyethylene glycol 3350 - UD packet 17 gram(s) 15 mL, Oral, qDay Continuous: (0) PRN: (9) acetaminophen 325 mg Tablet 650 mg 2 tab(s), Oral, q6hWA acetaminophen 325 mg Tablet 650 mg 2 tab(s), Oral, q4h dextrose 50% Solution Disp syringe 50 mL 12.5 gram(s) 25 mL, IV Push, AsDirected diazepam 5 mg/mL 2mL SYRINGE 2.5 mg 0.5 mL, IV Push, q6hr hydromorphone 2 mg tablet 1 mg 0.5 tab(s), Oral, q6hr melatonin 3 mg tablet 3 mg 1 tab(s), Oral, qHS melatonin 3 mg tablet 3 mg 1 tab(s), Oral, qHS ondansetron 2 mg/ 1 mL 2 mL INJ 4 mg 2 mL, IV Push, q4h ondansetron 4 mg DIS tablet 4 mg 1 tab(s), Oral, q6h Lab Results 05/06 05:45 WBC: 13.9 H Hgb: 8.3 L Hct: 25.2 L Platelet: 345 Neutrophil %: 77.5 H Glucose Level: 80 Sodium Level: 137 Potassium Level: 4.6 BUN: 10.0 Creatinine Lvl (s): 0.78 05/05 05:21 WBC: 16.7 H Hgb: 8.6 L Hct: 25.7 L Platelet: 292 Neutrophil %: 76.9 H Glucose Level: 80 Sodium Level: 139 Potassium Level: 4.4 BUN: 12.0 Creatinine Lvl (s): 0.83 Imaging Results and Diagnostics MRI Spine Thoracic w/ Contrast Result Date: May 05, 2023 Verified By: DOMINGO RODRIGUEZ MD CLINICAL STATEMENT: IMPRESSION: 1. No evidence of osteomyelitis, discitis or an epidural/soft tissue abscess.2. Moderate upper thoracic rotary levoscoliosis.3. Bilateral pleural effusions multiple pulmonary nodules. Refer to CT chestof 04/29/2023 for full details. MRI Spine Cervical w/ + w/o Contrast Result Date: May 05, 2023 Verified By: DOMINGO RODRIGUEZ MD CLINICAL STATEMENT: IMPRESSION: No osteomyelitis, discitis, or epidural abscess. MRI Spine Thoracic w/o Contrast Result Date: May 03, 2023 Verified By: ALPHONSO SCHULER MD CLINICAL STATEMENT: IMPRESSION: Limited due to motion, but there is an apparent epidural abscess or hematomain the upper thoracic canal, most prominently at the T2-T3 level. Bilateral consolidation and pleural effusions. MRI Spine Lumbar w/o Contrast Result Date: May 03, 2023 Verified By: ALPHONSO SCHULER MD CLINICAL STATEMENT: IMPRESSION: Limited by motion, otherwise unremarkable. US Abdomen Limited Result Date: April 30, 2023 Verified By: WILLY FERNANDES MD CLINICAL STATEMENT: IMPRESSION: The gallbladder is contracted with gallbladder wall thickening andpericholecystic fluid. No gallstones are detected. The patient is not tenderin the region of the gallbladder. Differential diagnosis includes acute orchronic cholecystitis. No biliary ductal dilatation. The liver and right kidney are unremarkable. RECOMMENDATIONS:Nuclear medicine hepatobiliary scan should be considered. CT Head or Brain w/ Contrast Result Date: April 29, 2023 Verified By: RONNY RAMIREZ MD CLINICAL STATEMENT: IMPRESSION: No acute intracranial abnormality or abnormal enhancement. CT Abdomen/Pelvis w/Contrast Result Date: April 29, 2023 Verified By: WILLY FERNANDES MD CLINICAL STATEMENT: IMPRESSION: Numerous bilateral lung nodules, some of which show cavitation. Differentialdiagnosis includes septic emboli, metastatic disease, and vasculitis. New small bilateral pleural effusions. Stable mild cardiomegaly. Stable hepatosplenomegaly. Contracted gallbladder with pericholecystic fluidand mild gallbladder wallthickening. This could be due to hypoproteinemia or cholecystitis. Correlateclinically and consider gallbladder ultrasound for further evaluation. CT Thorax w/ Contrast Result Date: April 29, 2023 Verified By: WILLY FERNANDES MD CLINICAL STATEMENT: IMPRESSION: Numerous bilateral lung nodules, some of which show cavitation. Differentialdiagnosis includes septic emboli, metastatic disease, and vasculitis. New small bilateral pleural effusions. Stable mild cardiomegaly. Stable hepatosplenomegaly. Contracted gallbladder with pericholecystic fluidand mild gallbladder wallthickening. This could be due to hypoproteinemia or cholecystitis. Correlateclinically and consider gallbladder ultrasound for further evaluation. EKG No qualifying data available. Assessment/Plan Sepsis present on admission MRSA bacteremia Thoracic canal epidural abscess Endocarditis, tricuspid valve, 2.8 cm Bilateral cavitary nodules, septic emboli. Pulmonary emboli, left upper lobe Active hepatitis C Transaminitis Polysubstance abuse Hyponatremia Hyperglycemia -> Patient is eating and drinking. No need for fluids. Did increase metoprolol today to prevent longstanding tachycardia. Goal less than 115. -> ID following, Patient is on Flagyl, ceftaroline, daptomycin. (MRSA plus gallbladder concerns,hence gram-negative coverage). Surgery recommends against gallbladder removal at this time. Should be completed as an outpatient after bacteremia/endocarditis is controlled. -> Pending transfer to [facility] for consideration of surgery. -> Continue pain control with oxycodone/Dilaudid. -> Lovenox twice daily for PE. -> Continue bowel regimen to prevent constipation given opiate use DVT Lovenox Full code Dispo: Pending transfer to [facility] Digitally Signed by RAVEN NOLAN DO on 05/06/2023 11:37 AM [id number] Infectious disease Progress note Date of Service 05/06/2023 Chief Complaint Back pain Subjective Patient evaluated at the bedside. He is resting in bed comfortably in no acute distress. Complains of low back pain. Appears drowsy today. No new complaints. Objective Vitals and Measurements T: 36.8 C (Oral) TMIN: 36.8 C (Oral) TMAX: 37.5 C (Oral) HR: 108(Monitored) RR: 18 BP: 122/87 SpO2:96% Intake and Output 7AM Yesterday to 7AM Today Intake and Output (Last 24 hours) Intake Oral Intake 250.00 Output Urine Voided 1400.00 Stool Count 0.00 Emesis Count 0.00 Total Summary Total Intake 250.00 Total Output 1400.00 Fluid Balance -1150.00 Physical Exam General: Awake, alert in no acute distress Skin: No rash. Warm, Dry, Intact Lungs: Bilaterally clear breath sounds with no crepitation or wheeze. Cardiovascular: Heart is regular rhythm, S1S2, no murmur Abdomen: Abdomen is soft, nontender and rounded. Bowel sounds positive all four quadrants. Extremities: No clubbing, cyanosis or edema. Peripheral pulses palpable. Adequate peripheral circulation. Neurological: The patient is awake, oriented to person, place and time. Following simple commands, moving all extremities. Weight Dosing Weight: 59.1 kg (04/28/23) Medications Medications (17) Active Scheduled: (8) ceftaroline 600 mg 20 mL, IV Piggyback, q12hr DAPTOmycin 500 mg 10 mL, IV Piggyback, qDay docusate-senna (Senokot S) 50 mg-8.6 mg Tablet 2 tab(s), Oral, qHS enoxaparin 60 mg/ 0.6 mL syringe 60 mg 0.6 mL, Subcutaneous, q12h metoprolol tartrate 25 mg tablet 25 mg 1 tab(s), Oral, BIDM metronidazole PMX 500 mg 100 mL, IV Piggyback, q8h oxyCODONE 10 mg ER tablet 20 mg 2 tab(s), Oral, q12h polyethylene glycol 3350 - UD packet 17 gram(s) 15 mL, Oral, qDay Continuous: (0) PRN: (9) acetaminophen 325 mg Tablet 650 mg 2 tab(s), Oral, q6hWA acetaminophen 325 mg Tablet 650 mg 2 tab(s), Oral, q4h dextrose 50% Solution Disp syringe 50 mL 12.5 gram(s) 25 mL, IV Push, AsDirected diazepam 5 mg/mL 2mL SYRINGE 2.5 mg 0.5 mL, IV Push, q6hr hydromorphone 2 mg tablet 1 mg 0.5 tab(s), Oral, q6hr melatonin 3 mg tablet 3 mg 1 tab(s), Oral, qHS melatonin 3 mg tablet 3 mg 1 tab(s), Oral, qHS ondansetron 2 mg/ 1 mL 2 mL INJ 4 mg 2 mL, IV Push, q4h ondansetron 4 mg DIS tablet 4 mg 1 tab(s), Oral, q6h Lab Results 05/06 05:45 WBC: 13.9 H Hgb: 8.3 L Hct: 25.2 L Platelet: 345 Neutrophil %: 77.5 H Glucose Level: 80 Sodium Level: 137 Potassium Level: 4.6 BUN: 10.0 Creatinine Lvl (s): 0.78 05/05 05:21 WBC: 16.7 H Hgb: 8.6 L Hct: 25.7 L Platelet: 292 Neutrophil %: 76.9 H Glucose Level: 80 Sodium Level: 139 Potassium Level: 4.4 BUN: 12.0 Creatinine Lvl (s): 0.83 Imaging Results and Diagnostics MRI Spine Thoracic w/ Contrast Result Date: May 05, 2023 Verified By: DOMINGO RODRIGUEZ MD CLINICAL STATEMENT: IMPRESSION: 1. No evidence of osteomyelitis, discitis or an epidural/soft tissue abscess.2. Moderate upper thoracic rotary levoscoliosis.3. Bilateral pleural effusions multiple pulmonary nodules. Refer to CT chestof 04/29/2023 for full details. MRI Spine Cervical w/ + w/o Contrast Result Date: May 05, 2023 Verified By: DOMINGO RODRIGUEZ MD CLINICAL STATEMENT: IMPRESSION: No osteomyelitis, discitis, or epidural abscess. MRI Spine Thoracic w/o Contrast Result Date: May 03, 2023 Verified By: ALPHONSO SCHULER MD CLINICAL STATEMENT: IMPRESSION: Limited due to motion, but there is an apparent epidural abscess or hematomain the upper thoracic canal, most prominently at the T2-T3 level. Bilateral consolidation and pleural effusions. MRI Spine Lumbar w/o Contrast Result Date: May 03, 2023 Verified By: ALPHONSO SCHULER MD CLINICAL STATEMENT: IMPRESSION: Limited by motion, otherwise unremarkable. US Abdomen Limited Result Date: April 30, 2023 Verified By: WILLY FERNANDES MD CLINICAL STATEMENT: IMPRESSION: The gallbladder is contracted with gallbladder wall thickening andpericholecystic fluid. No gallstones are detected. The patient is not tenderin the region of the gallbladder. Differential diagnosis includes acute orchronic cholecystitis. No biliary ductal dilatation. The liver and right kidney are unremarkable. RECOMMENDATIONS:Nuclear medicine hepatobiliary scan should be considered. CT Head or Brain w/ Contrast Result Date: April 29, 2023 Verified By: RONNY RAMIREZ MD CLINICAL STATEMENT: IMPRESSION: No acute intracranial abnormality or abnormal enhancement. CT Abdomen/Pelvis w/Contrast Result Date: April 29, 2023 Verified By: WILLY FERNANDES MD CLINICAL STATEMENT: IMPRESSION: Numerous bilateral lung nodules, some of which show cavitation. Differentialdiagnosis includes septic emboli, metastatic disease, and vasculitis. New small bilateral pleural effusions. Stable mild cardiomegaly. Stable hepatosplenomegaly. Contracted gallbladder with pericholecystic fluidand mild gallbladder wallthickening. This could be due to hypoproteinemia or cholecystitis. Correlateclinically and consider gallbladder ultrasound for further evaluation. CT Thorax w/ Contrast Result Date: April 29, 2023 Verified By: WILLY FERNANDES MD CLINICAL STATEMENT: IMPRESSION: Numerous bilateral lung nodules, some of which show cavitation. Differentialdiagnosis includes septic emboli, metastatic disease, and vasculitis. New small bilateral pleural effusions. Stable mild cardiomegaly. Stable hepatosplenomegaly. Contracted gallbladder with pericholecystic fluidand mild gallbladder wallthickening. This could be due to hypoproteinemia or cholecystitis. Correlateclinically and consider gallbladder ultrasound for further evaluation. EKG No qualifying data available. Assessment/Plan 1. Sepsis 2. Tricuspid valve endocarditis 3. MRSA bacteremia 4. History of endocarditis and MSSA bacteremia 5. IV drug use 6. Large PE 7. Septic emboli 8. Acute cholecystitis 9. Hepatitis C 28-year-old male with history of endocarditis, septic emboli, MSSA bacteremia with infective endocarditis presents to [facility] as a transfer from [place] for chest pain and shortness of breath left-sided back pain. Found to be tachycardic, hypertensive and tachypneic with leukocytosis 25,000. IDhas been following for septic emboli, bacteremia. MRSA bacteremia with source of infection and tricuspid valve endocarditis with large vegetation andconcern for valvular disease. Underwent repeat MRI of the thoracic and cervical spine which were negative for osteomyelitis/discitis or epidural abscess. Less likely to be infectious at this time. Additionally has acute cholecystitis with surgical plans to evaluate once recovery from multiple comorbidities. Leukocytosis trending downward to 13,900 and remains afebrile. Plan to transfer to [facility] once bed is available. Continue present antibiotics. ID will follow peripherally. Plan of care discussed in depth with patient. All questions answered. Patient verbalized understanding and is agreeable to plan of care. Discussed with my collaborating physician Dr. Solomon Mills. Any changes to the plan will be added to end as an addendum. Time Spent I spent a total of 38 minutes reviewing the patient s diagnostic labs/tests, seeing and examining the patient and documenting in the medical record, see assessment for further detail. Digitally Signed by MITCH PAIGE on 05/06/2023 12:26 PM [id number] Note Date of Service 05/05/23 Chief Complaint shortness of breath, found to have infective endocarditis with severe tricuspid valve regurgitation, CT surgery recommended transfer to [facility]. Patient has been accepted and is pending transfer. Subjective Patient examined. No new acute changes overnight. Continues to have intermittent tachycardia. Tolerating diet. Continues to complain of pain. Objective Vitals and Measurements T: 37.2 C (Oral) TMIN: 37.2 C (Oral) TMAX: 38.1 C (Oral) HR: 105 RR: 18 BP: 133/94 SpO2: 94% Intake and Output 7AM Yesterday to 7AM Today Intake and Output (Last 24 hours) Intake Oral Intake 490.00 Output Urine Voided 1350.00 Stool Count 0.00 Urine Count 1.00 Emesis Count 0.00 Total Summary Total Intake 490.00 Total Output 1350.00 Fluid Balance -860.00 Physical Exam Constitutional -thin, alert oriented, no gross deformities Head - atraumatic, normocephalic Eyes - Pupils equal, round, reactive to light, no conjunctival injection, extra ocular movements grossly intact, no scleral icterus Ears, Nose, and Throat - trachea midline no lesions Respiratory - Clear to auscultation without rales, rhonchi, wheezing or diminished breath sounds Cardiovascular -tachycardic, murmur present Gastrointestinal (Abdomen) - Bowel sounds present Musculoskeletal - gait normal, no obvious deformity, swelling, or clubbing. Skin: Skin normal color, texture and turgor with no lesions or eruptions Weight Dosing Weight: 59.1 kg (04/28/23) Medications Medications (17) Active Scheduled: (8) ceftaroline 600 mg 20 mL, IV Piggyback, q12hr DAPTOmycin 500 mg 10 mL, IV Piggyback, qDay docusate-senna (Senokot S) 50 mg-8.6 mg Tablet 2 tab(s), Oral, qHS enoxaparin 60 mg/ 0.6 mL syringe 60 mg 0.6 mL, Subcutaneous, q12h metoprolol tartrate 12.5 mg ( HALF-TAB ) 12.5 mg 1 EA, Oral, BIDM metronidazole PMX 500 mg 100 mL, IV Piggyback, q8h oxyCODONE 10 mg ER tablet 20 mg 2 tab(s), Oral, q12h polyethylene glycol 3350 - UD packet 17 gram(s) 15 mL, Oral, qDay Continuous: (0) PRN: (9) acetaminophen 325 mg Tablet 650 mg 2 tab(s), Oral, q6hWA acetaminophen 325 mg Tablet 650 mg 2 tab(s), Oral, q4h dextrose 50% Solution Disp syringe 50 mL 12.5 gram(s) 25 mL, IV Push, AsDirected diazepam 5 mg/mL 2mL SYRINGE 2.5 mg 0.5 mL, IV Push, q6hr hydromorphone 2 mg tablet 1 mg 0.5 tab(s), Oral, q6hr melatonin 3 mg tablet 3 mg 1 tab(s), Oral, qHS melatonin 3 mg tablet 3 mg 1 tab(s), Oral, qHS ondansetron 2 mg/ 1 mL 2 mL INJ 4 mg 2 mL, IV Push, q4h ondansetron 4 mg DIS tablet 4 mg 1 tab(s), Oral, q6h Lab Results 05/05 05:21 WBC: 16.7 H Hgb: 8.6 L Hct: 25.7 L Platelet: 292 Neutrophil %: 76.9 H Glucose Level: 80 Sodium Level: 139 Potassium Level: 4.4 BUN: 12.0 Creatinine Lvl (s): 0.83 EKG No qualifying data available. Assessment/Plan Sepsis present on admission MRSA bacteremia Thoracic canal epidural abscess, ruled out Endocarditis, tricuspid valve, 2.8 cm Bilateral cavitary nodules, septic emboli. Pulmonary emboli, left upper lobe Active hepatitis C Transaminitis Polysubstance abuse Hyponatremia Hyperglycemia Infectious disease consulted given complex presentation. Initial blood cultures revealing MRSA. Status post YESSENIA. Large vegetation confirmed with significant valvular disease. CT surgery consulted. Given drug use, they are recommending transfer to [facility]. Dr. Mahsa Grigsby, cardiology has accepted. CT abdomen showing cholecystic fluid. Surgery consulted, talked with surgery personally. Gallbladder does appear to be dysfunctional. Not a surgical candidate at this time. Recommending gram-negativecoverage with outpatient follow-up for elective gallbladder removal. Currently on vancomycin/ceftaroline. Antibiotics per infectious disease. CT head negative HIV, RPR neg. Hepatitis C positive, hepatitis C quantification 534,000 [facility] has reviewed case. No significant findings necessitating urgent surgery prior to transfer. Bowel regimen to prevent constipation Continue Lovenox given PE. Hyponatremia resolved. Continue to monitor/replace electrolytes DVT heparin by weight Patient is full code. Disposition: Pending transfer to [facility]. Excepted by Dr. Mahsa Grigsby. Waiting on bed. Digitally Signed by RAVEN NOLAN DO on 05/05/2023 04:46 PM [id number] Note. MICRO - Microbiology PROCEDURE: Blood Culture (bacterial) [*1] SOURCE: Blood BODY SITE: COLLECTED DATE/TIME: 04/30/2023 08:46 EST RECEIVED DATE/TIME: 04/30/2023 10:02 EST START DATE/TIME: 04/30/2023 10:02 EST FREE TEXT SOURCE: FINAL REPORTS Final Report [] Verified Date/Time/Personnel: 05/05/2023 10:59 EST Blood Culture: No Growth at 5 days. PRELIMINARY REPORTS Preliminary Report [] Verified Date/Time/Personnel: 04/30/2023 10:59 EST Culture has been received in lab and is no growth to date. Routine cultures are held for 5 days. Performing Locations *1: This test was performed at: [address], [address] [place], [place] [id number] Note. MICRO - Microbiology PROCEDURE: Blood Culture (bacterial) [*1] SOURCE: Blood BODY SITE: COLLECTED DATE/TIME: 04/30/2023 08:46 EST RECEIVED DATE/TIME: 04/30/2023 09:48 EST START DATE/TIME: 04/30/2023 09:48 EST FREE TEXT SOURCE: FINAL REPORTS Final Report [] Verified Date/Time/Personnel: 05/05/2023 09:59 EST Blood Culture: No Growth at 5 days. PRELIMINARY REPORTS Preliminary Report [] Verified Date/Time/Personnel: 04/30/2023 10:59 EST Culture has been received in lab and is no growth to date. Routine cultures are held for 5 days. Performing Locations *1: This test was performed at: [address], [address] [place], [place] [id number] Infectious disease Progress note Date of Service 05/05/2023 Chief Complaint Tricuspid valve endocarditis, MRSA bacteremia Subjective Patient evaluated at the bedside. He is resting in bed comfortably in no acute distress. Appears carmita drowsy today after his MRI. His back pain is controlled with pain medicine. No new complaints. Objective Vitals and Measurements T: 37.2 C (Oral) TMIN: 37.0 C (Oral) TMAX: 38.1 C (Oral) HR: 94(Monitored) RR: 18 BP: 132/89 SpO2: 93% Intake and Output 7AM Yesterday to 7AM Today Intake and Output (Last 24 hours) Intake Oral Intake 720.00 Output Urine Voided 725.00 Urine Count 1.00 Total Summary Total Intake 720.00 Total Output 725.00 Fluid Balance -5.00 Physical Exam General: Awake, alert in no acute distress Skin: No rash. Warm, Dry, Intact Lungs: Bilaterally clear breath sounds with no crepitation or wheeze. Cardiovascular: Heart is regular rhythm, S1S2, no murmur Abdomen: Abdomen is soft, nontender and rounded. Bowel sounds positive all four quadrants. Extremities: No clubbing, cyanosis or edema. Peripheral pulses palpable. Adequate peripheral circulation. Neurological: The patient is awake, oriented to person, place and time. Following simple commands, moving all extremities. Weight Dosing Weight: 59.1 kg (04/28/23) Medications Medications (17) Active Scheduled: (8) ceftaroline 600 mg 20 mL, IV Piggyback, q12hr DAPTOmycin 500 mg 10 mL, IV Piggyback, qDay docusate-senna (Senokot S) 50 mg-8.6 mg Tablet 2 tab(s), Oral, qHS enoxaparin 60 mg/ 0.6 mL syringe 60 mg 0.6 mL, Subcutaneous, q12h metoprolol tartrate 12.5 mg ( HALF-TAB ) 12.5 mg 1 EA, Oral, BIDM metronidazole PMX 500 mg 100 mL, IV Piggyback, q8h oxyCODONE 10 mg ER tablet 20 mg 2 tab(s), Oral, q12h polyethylene glycol 3350 - UD packet 17 gram(s) 15 mL, Oral, qDay Continuous: (0) PRN: (9) acetaminophen 325 mg Tablet 650 mg 2 tab(s), Oral, q6hWA acetaminophen 325 mg Tablet 650 mg 2 tab(s), Oral, q4h dextrose 50% Solution Disp syringe 50 mL 12.5 gram(s) 25 mL, IV Push, AsDirected diazepam 5 mg/mL 2mL SYRINGE 2.5 mg 0.5 mL, IV Push, q6hr hydromorphone 2 mg tablet 1 mg 0.5 tab(s), Oral, q6hr melatonin 3 mg tablet 3 mg 1 tab(s), Oral, qHS melatonin 3 mg tablet 3 mg 1 tab(s), Oral, qHS ondansetron 2 mg/ 1 mL 2 mL INJ 4 mg 2 mL, IV Push, q4h ondansetron 4 mg DIS tablet 4 mg 1 tab(s), Oral, q6h Lab Results 05/05 05:21 WBC: 16.7 H Hgb: 8.6 L Hct: 25.7 L Platelet: 292 Neutrophil %: 76.9 H Glucose Level: 80 Sodium Level: 139 Potassium Level: 4.4 BUN: 12.0 Creatinine Lvl (s): 0.83 05/04 03:46 WBC: 17.4 H Hgb: 9.0 L Hct: 27.1 L Platelet: 241 Neutrophil %: 80.8 H Glucose Level: 87 Sodium Level: 137 Potassium Level: 3.9 BUN: 13.0 Creatinine Lvl (s): 0.76 Imaging Results and Diagnostics MRI Spine Thoracic w/o Contrast Result Date: May 03, 2023 Verified By: ALPHONSO SCHULER MD CLINICAL STATEMENT: IMPRESSION: Limited due to motion, but there is an apparent epidural abscess or hematomain the upper thoracic canal, most prominently at the T2-T3 level. Bilateral consolidation and pleural effusions. MRI Spine Lumbar w/o Contrast Result Date: May 03, 2023 Verified By: ALPHONSO SCHULER MD CLINICAL STATEMENT: IMPRESSION: Limited by motion, otherwise unremarkable. US Abdomen Limited Result Date: April 30, 2023 Verified By: WILLY FERNANDES MD CLINICAL STATEMENT: IMPRESSION: The gallbladder is contracted with gallbladder wall thickening andpericholecystic fluid. No gallstones are detected. The patient is not tenderin the region of the gallbladder. Differential diagnosis includes acute orchronic cholecystitis. No biliary ductal dilatation. The liver and right kidney are unremarkable. RECOMMENDATIONS:Nuclear medicine hepatobiliary scan should be considered. CT Head or Brain w/ Contrast Result Date: April 29, 2023 Verified By: RONNY RAMIREZ MD CLINICAL STATEMENT: IMPRESSION: No acute intracranial abnormality or abnormal enhancement. CT Abdomen/Pelvis w/Contrast Result Date: April 29, 2023 Verified By: WILLY FERNANDES MD CLINICAL STATEMENT: IMPRESSION: Numerous bilateral lung nodules, some of which show cavitation. Differentialdiagnosis includes septic emboli, metastatic disease, and vasculitis. New small bilateral pleural effusions. Stable mild cardiomegaly. Stable hepatosplenomegaly. Contracted gallbladder with pericholecystic fluidand mild gallbladder wallthickening. This could be due to hypoproteinemia or cholecystitis. Correlateclinically and consider gallbladder ultrasound for further evaluation. CT Thorax w/ Contrast Result Date: April 29, 2023 Verified By: WILLY FERNANDES MD CLINICAL STATEMENT: IMPRESSION: Numerous bilateral lung nodules, some of which show cavitation. Differentialdiagnosis includes septic emboli, metastatic disease, and vasculitis. New small bilateral pleural effusions. Stable mild cardiomegaly. Stable hepatosplenomegaly. Contracted gallbladder with pericholecystic fluidand mild gallbladder wallthickening. This could be due to hypoproteinemia or cholecystitis. Correlateclinically and consider gallbladder ultrasound for further evaluation. EKG No qualifying data available. Assessment/Plan 1. Sepsis 2. Tricuspid valve endocarditis 3. MRSA bacteremia 4. History of endocarditis and MSSA bacteremia 5. IV drug use 6. Large PE 7. Septic emboli 8. Acute cholecystitis 9. Hepatitis C 10. Osteomyelitis/discitis with epidural abscess 28-year-old male with history of endocarditis, septic emboli, MSSA bacteremia with infective endocarditis 1 year ago and IV drug use presents to [facility] as a transfer from [place] for chest pain and shortness of breath with left-sided back pain. Found to be tachycardic, hypertensive and tachypneic with leukocytosis of 25,000. ID has been following for septic emboli, bacteremia. MRSA bacteremia with source of infection as tricuspid valve endocarditis with large vegetation and concerns for valvular disease. CT surgery is recommending transfer to [facility] for further surgical evaluation. Underwent MRI of his lumbar and thoracic spine with concerns for epidural abscess. Underwent thoracic and cervical spine MRI today. Neurosurgery evaluating, no plans for urgent intervention at this time. Additionally has acute cholecystitis with surgical plans to evaluate once recovered from multiple acute problems. His leukocytosis is trending downward to 16,700 and was febrile overnight. Plan Waiting transfer to [facility] once bed is available. Will follow MRI results from cervical and thoracic spine. Continue present antibiotics. Plan of care discussed in depth with patient. All questions answered. Patient verbalized understanding and is agreeable to plan of care. Discussed with my collaborating physician Dr. Solomon Mills. Any changes to the plan will be added to end as an addendum. Time Spent I spent a total of 36 minutes reviewing the patient s diagnostic labs/tests, seeing and examining the patient and documenting in the medical record, see assessment for further detail. Digitally Signed by MITCH PAIGE on 05/05/2023 12:08 PM [id number] Note ORIGINAL EXAMINATION: MR Thoracic Spine Without and With Contrast TECHNIQUE: Sagittal T2 and postcontrast fat saturation sagittal and axial images of the thoracic spine COMPARISON: Noncontrast MRI thoracic spine 05/03/2023, CT chest 04/29/2023 HISTORY: ORDERING SYSTEM PROVIDED HISTORY: Reason for Exam: Back pain and IV drug use FINDINGS: Alignment: A moderate upper thoracic rotary levoscoliosis is centered about the T3 vertebral body. Vertebral bodies: No acute/recent fracture, significant chronic height loss, or a focal osseous lesion. No evidence of osteomyelitis. Bone marrow: Normal. Discs: Mild disc height loss involving the upper thoracic spine. Spinal canal: No epidural abscess or hematoma. Spinal cord: No pathologic signal. The spinal cord is located in the right half of the canal at the upper thoracic level secondary to a moderate upper thoracic levoscoliosis. Paraspinal musculature: No paraspinal abscess or drainable fluid collection. Visualized chest and abdomen: Small bilateral pleural effusion and multiple pulmonary nodules some demonstrating cavitation as seen on the CT chest of reference. IMPRESSION: 1. No evidence of osteomyelitis, discitis or an epidural/soft tissue abscess. 2. Moderate upper thoracic rotary levoscoliosis. 3. Bilateral pleural effusions multiple pulmonary nodules. Refer to CT chest of 04/29/2023 for full details. Interpreted by: Domingo Rodriguez MD Preliminary Report By: Domingo Rodriguez MD Electronically signed By Domingo Rodriguez MD Dictated Date: 05/05/2023 12:13:32 PM Prelim Date: 05/05/2023 12:23:34 PM Sign Date: 05/05/2023 12:23:34 PM Ordering Provider: [facility]01-18-2024 Note ORIGINAL INDICATION:ORDERING SYSTEM PROVIDED HISTORY: Reason for Exam: MRSA bacteremia, back pain, drug use TECHNIQUE: MRI of the cervical spine was performed without followed by with the administration of intravenous contrast, according to standard protocol. COMPARISON: Knee previous cervical spine examinations. Correlated with CT chest 04/29/2023 FINDINGS: ALIGNMENT: The vertebral bodies are anatomically aligned. VERTEBRAE: No acute/recent fracture, significant chronic height loss, or focal osseous lesion. ENHANCEMENT: No evidence of an epidural abscess. DISCS: Mild disc height loss at C5-C6. CORD: No intramedullary pathologic signal. PARAVERTEBRAL SOFT TISSUES: No soft tissue abscess. EVALUATION OF INDIVIDUAL LEVELS DEMONSTRATES: C2-C3 through C7-T1: No disc herniation, central canal, or significant foraminal stenosis. ADDITIONAL COMMENTS: 6 mm cyst within the right nasopharynx likely reflecting a mucous retention cyst. IMPRESSION: No osteomyelitis, discitis, or epidural abscess. Interpreted by: Domingo Rodriguez MD Preliminary Report By: Domingo Rodriguez MD Electronically signed By Domingo Rodriguez MD Dictated Date: 05/05/2023 11:50:41 AM Prelim Date: 05/05/2023 12:13:20 PM Sign Date: 05/05/2023 12:13:20 PM Ordering Provider: [facility]01-17-2024 Orthopaedic surgery Consult note Date of Service 05/03/2023 Reason for Consultation Osteomyelitis, discitis, epidural abscess Referring Physician Hospitalist History of Present Illness This is a 28-year-old male with past medical history significant for prior endocarditis with septicemboli, IV drug use with last use allegedly 1 year ago, tobacco use who was [facility] 04/[facility]/2023 for PE. During the hospital stay, patient complained of back pain, an MRI of thoracic and lumbar spine demonstrated a T2-T3 epidural abscess, and orthopedic surgery was consulted for evaluation and treatment. Patient seen and examined at bedside. He states that he used to use heroin and methamphetamine, but has not used IV drugs in 1 year. He is complaining of upper back pain, but denies weakness, numbness, tingling. He has been febrile and overall feeling unwell. Of note, patient is being transferred to [facility] tomorrow for higher level of care. Review of Systems None other than what is seen above HPI Physical Exam Vitals and Measurements T: 36.9 C (Oral) TMIN: 36.7 C (Oral) TMAX: 37.4 C (Oral) HR: 112 RR: 18 BP: 127/88 SpO2: 94% Weight Dosing Weight: 59.1 kg (04/28/23) General: Alert and oriented x 3, not in acute distress Spine exam: Midline tenderness to palpation about the upper thoracic spine. No obvious deformities or step-offs noted. 5 out of 5 muscle strength in bilateral upper extremities. Sensation grossly intact in C5-T1 nerve distribution. Brisk capillary refills. Negative Laura's bilaterally. 5 out of 5 muscle strength in bilateral lower extremities. Sensation grossly intact in L3-S2 nerve distribution. Brisk capillary refills. 2+ patellar reflexes bilaterally. Negative clonus. Downgoing Babinski. Lab Results 05/03 14:19 WBC: 19.1 H Hgb: 9.2 L Hct: 28.0 L Platelet: 226 Neutrophil %: 87.0 H Glucose Level: 131 H Sodium Level: 137 Potassium Level: 4.1 BUN: 15.0 Creatinine Lvl (s): 0.73 05/02 23:12 Glucose Level: 117 H Sodium Level: 137 Potassium Level: 4.0 BUN: 20.0 Creatinine Lvl (s): 0.94 05/02 15:58 WBC: 16.0 H Hgb: 9.0 L Hct: 27.9 L Platelet: 159 Neutrophil %: 84.5 H Imaging Results and Diagnostics MRI thoracic and lumbar spine demonstrating a fluid collection, likely epidural abscess, near [id number] Assessment/Plan Back pain 28-year-old male with upper thoracic epidural abscess Patient is neurologically intact and there is no evidence of spinal cord involvement on MRI. No indication for acute orthopedic surgical intervention Patient may ambulate as tolerated Continue IV antibiotics per primary team Pain control primary team PT/OT as tolerated Will discuss with attending Endocarditis of tricuspid valve IV drug abuse MRSA bacteremia Pulmonary emboli Septic embolism Transaminitis Problem List/Past Medical History Ongoing Bacteremia Endocarditis of tricuspid valve IV drug abuse Historical No qualifying data Procedure/Surgical History Thoracentesis: 05/05/22 Transesophageal echocardiogram: 04/20/22 Echocardiogram: 04/14/22 CT angiography of chest with contrast: 04/13/22 CT angiography of chest with contrast: 12/06/19 Medications Inpatient acetaminophen, 650 mg= 2 tab(s), Oral, q6hWA, PRN DAPTOmycin Dextrose 50% IV Push, 12.5 gram(s)= 25 mL, IV Push, AsDirected, PRN Dilaudid 2 mg oral tablet, 1 mg= 0.5 tab(s), Oral, q6hr, PRN docusate-senna 50 mg-8.6 mg oral tablet, 2 tab(s), Oral, qHS Flagyl IVPB, 500 mg= 100 mL, IV Piggyback, q8h Lovenox, 60 mg= 0.6 mL, 1 mg/kg, Subcutaneous, q12h melatonin, 3 mg= 1 tab(s), Oral, qHS, PRN melatonin, 3 mg= 1 tab(s), Oral, qHS, PRN metoprolol tartrate (Lopressor), 12.5 mg= 1 EA, Oral, BIDM Miralax Powder Packet, 17 gram(s)= 15 mL, Oral, qDay oxyCODONE 10 mg oral tablet, ( extended release ), 20 mg= 2 tab(s), Oral, q12h Teflaro IVPB Tylenol, 650 mg= 2 tab(s), Oral, q4h, PRN Valium, 2.5 mg= 0.5 mL, IV Push, q6hr, PRN Zofran, 4 mg= 2 mL, IV Push, q4h, PRN Zofran ODT, 4 mg= 1 tab(s), Oral, q6h, PRN Home Tylenol 325 mg oral capsule, 650 mg, Oral, q4h, PRN Allergies NKA Social History Smoking Status - 12/25/2015 Current every day smoker Alcohol Use: Never., 06/16/2022 Nutrition/Health Caffeine intake amount: 1 serving daily., 06/16/2022 Substance Abuse Use: Past., 06/16/2022 Use: Current. Type: Heroin. Frequency: 1-2 times per week. Previous treatment: None. Started at age: 20 Years. IV drug use; Yes. Has drug use interfered with your work or home life? No. Ready to change: Yes. Concerns about substance abuse in household: No., 12/06/2019 Tobacco Tobacco Use: 10 or more cigarettes (1/2 pack or more)/day in last 30 days., 02/18/2019 Family History Family history is unknown Immunizations hepatitis B pediatric vaccine: 0 unknown unit (05/26/00) Digitally Signed by CAROL ANN DOWELL DO on 05/03/2023 11:09 PM [id number] Orthopaedic surgery Consult note Date of Service 05/03/2023 Reason for Consultation Osteomyelitis, discitis, epidural abscess Referring Physician Hospitalist History of Present Illness This is a 28-year-old male with past medical history significant for prior endocarditis with septicemboli, IV drug use with last use allegedly 1 year ago, tobacco use who was admitted to [facility] on 04/28/2023 for PE. During the hospital stay, patient complained of back pain, an MRI of thoracic and lumbar spine demonstrated a T2-T3 epidural abscess, and orthopedic surgery was consulted for evaluation and treatment. Patient seen and examined at bedside. He states that he used to use heroin and methamphetamine, but has not used IV drugs in 1 year. He is complaining of upper back pain, but denies weakness, numbness, tingling. He has been febrile and overall feeling unwell. Of note, patient is being transferred to [facility] tomorrow for higher level of care. Review of Systems None other than what is seen above HPI Physical Exam Vitals and Measurements T: 36.9 C (Oral) TMIN: 36.7 C (Oral) TMAX: 37.4 C (Oral) HR: 112 RR: 18 BP: 127/88 SpO2: 94% Weight Dosing Weight: 59.1 kg (04/28/23) General: Alert and oriented x 3, not in acute distress Spine exam: Midline tenderness to palpation about the upper thoracic spine. No obvious deformities or step-offs noted. 5 out of 5 muscle strength in bilateral upper extremities. Sensation grossly intact in C5-T1 nerve distribution. Brisk capillary refills. Negative Laura's bilaterally. 5 out of 5 muscle strength in bilateral lower extremities. Sensation grossly intact in L3-S2 nerve distribution. Brisk capillary refills. 2+ patellar reflexes bilaterally. Negative clonus. Downgoing Babinski. Lab Results 05/03 14:19 WBC: 19.1 H Hgb: 9.2 L Hct: 28.0 L Platelet: 226 Neutrophil %: 87.0 H Glucose Level: 131 H Sodium Level: 137 Potassium Level: 4.1 BUN: 15.0 Creatinine Lvl (s): 0.73 05/02 23:12 Glucose Level: 117 H Sodium Level: 137 Potassium Level: 4.0 BUN: 20.0 Creatinine Lvl (s): 0.94 05/02 15:58 WBC: 16.0 H Hgb: 9.0 L Hct: 27.9 L Platelet: 159 Neutrophil %: 84.5 H Imaging Results and Diagnostics MRI thoracic and lumbar spine demonstrating a fluid collection, likely epidural abscess, near [id number] Assessment/Plan Back pain 28-year-old male with upper thoracic epidural abscess Patient is neurologically intact and there is no evidence of spinal cord involvement on MRI. No indication for acute orthopedic surgical intervention Patient may ambulate as tolerated Continue IV antibiotics per primary team Pain control primary team PT/OT as tolerated Will discuss with attending Endocarditis of tricuspid valve IV drug abuse MRSA bacteremia Pulmonary emboli Septic embolism Transaminitis Problem List/Past Medical History Ongoing Bacteremia Endocarditis of tricuspid valve IV drug abuse Historical No qualifying data Procedure/Surgical History Thoracentesis: 05/05/22 Transesophageal echocardiogram: 04/20/22 Echocardiogram: 04/14/22 CT angiography of chest with contrast: 04/13/22 CT angiography of chest with contrast: 12/06/19 Medications Inpatient acetaminophen, 650 mg= 2 tab(s), Oral, q6hWA, PRN DAPTOmycin Dextrose 50% IV Push, 12.5 gram(s)= 25 mL, IV Push, AsDirected, PRN Dilaudid 2 mg oral tablet, 1 mg= 0.5 tab(s), Oral, q6hr, PRN docusate-senna 50 mg-8.6 mg oral tablet, 2 tab(s), Oral, qHS Flagyl IVPB, 500 mg= 100 mL, IV Piggyback, q8h Lovenox, 60 mg= 0.6 mL, 1 mg/kg, Subcutaneous, q12h melatonin, 3 mg= 1 tab(s), Oral, qHS, PRN melatonin, 3 mg= 1 tab(s), Oral, qHS, PRN metoprolol tartrate (Lopressor), 12.5 mg= 1 EA, Oral, BIDM Miralax Powder Packet, 17 gram(s)= 15 mL, Oral, qDay oxyCODONE 10 mg oral tablet, ( extended release ), 20 mg= 2 tab(s), Oral, q12h Teflaro IVPB Tylenol, 650 mg= 2 tab(s), Oral, q4h, PRN Valium, 2.5 mg= 0.5 mL, IV Push, q6hr, PRN Zofran, 4 mg= 2 mL, IV Push, q4h, PRN Zofran ODT, 4 mg= 1 tab(s), Oral, q6h, PRN Home Tylenol 325 mg oral capsule, 650 mg, Oral, q4h, PRN Allergies NKA Social History Smoking Status - 12/25/2015 Current every day smoker Alcohol Use: Never., 06/16/2022 Nutrition/Health Caffeine intake amount: 1 serving daily., 06/16/2022 Substance Abuse Use: Past., 06/16/2022 Use: Current. Type: Heroin. Frequency: 1-2 times per week. Previous treatment: None. Started at age: 20 Years. IV drug use; Yes. Has drug use interfered with your work or home life? No. Ready to change: Yes. Concerns about substance abuse in household: No., 12/06/2019 Tobacco Tobacco Use: 10 or more cigarettes (1/2 pack or more)/day in last 30 days., 02/18/2019 Family History Family history is unknown Immunizations hepatitis B pediatric vaccine: 0 unknown unit (05/26/00) Digitally Signed by CAROL ANN DOWELL DO on 05/03/2023 11:09 PM [id number] Note ORIGINAL HISTORY: Bacteremia, back pain, drug use COMPARISON: No TECHNIQUE: 1. Sagittal T1-weighted images. 2. Sagittal T2-weighted images with and without fat saturation. 3. Axial T1-weighted images. 4. Axial T2-weighted images. FINDINGS: The study is degraded by motion. There are 5 lumbar type vertebral bodies for the purpose of this dictation. There is straightening of the normal lumbar lordosis. The individual vertebral bodies are intact. Disc spaces are maintained. The spinal cord is only slightly visualized and poorly evaluated due to motion. There is no definite stenosis. There are no abnormal intra or extra-axial fluid collections. The paraspinous tissues are grossly unremarkable. IMPRESSION: Limited by motion, otherwise unremarkable. Interpreted by: Alphonso Schuler MD Preliminary Report By: Alphonso Schuler MD Electronically signed By Alphonso Schuler MD Dictated Date: 05/03/2023 2:37:38 PM Prelim Date: 05/03/2023 2:39:19 PM Sign Date: 05/03/2023 2:39:19 PM Ordering Provider: [facility]01-16-2024 Note ORIGINAL HISTORY: Bacteremia, back pain, drug use COMPARISON: Chest CT 4 days previously TECHNIQUE: 1. Sagittal T1-weighted images. 2. Sagittal T2-weighted images with and without fat saturation. 3. Axial T1-weighted images. 4. Axial T2-weighted images. FINDINGS: The study is limited by motion. There is mild left convex scoliosis of the thoracic spine. The individual vertebral bodies are intact. Disc spaces are maintained. There is no abnormal signal within the thoracic spinal cord. There is asymmetric epidural fluid in the left upper thoracic canal. There is mild displacement of the thecal sac to the right in the upper thoracic region. There is bilateral consolidation and there are small pleural effusions. IMPRESSION: Limited due to motion, but there is an apparent epidural abscess or hematoma in the upper thoracic canal, most prominently at the T2-T3 level. Bilateral consolidation and pleural effusions. Interpreted by: Alphonso Schuler MD Preliminary Report By: Alphonso Schuler MD Electronically signed By Alphonso Schuler MD Dictated Date: 05/03/2023 2:15:11 PM Prelim Date: 05/03/2023 2:22:19 PM Sign Date: 05/03/2023 2:22:19 PM Ordering Provider: [facility]01-15-2024 Cardiothoracic surgery Consult note Date of Service I saw this now 28-year-old gentleman almost exactly 1 year ago for evaluation of tricuspid valve endocarditis secondary to intravenous drug abuse, at which time I suggested he be enrolled in an intensive drug rehabilitation program. He is now readmitted with MSSA sepsis with severe tricuspid valve regurgitation and possible aortic valve involvement as well as possible spinal involvement. He will almost certainly need operative intervention in order to survive this episode, but this would be meaningless without treating the underlying issue of ongoing drug abuse. Obviously if we had needed to perform surgery 1 year ago he would now be in even worse shape with an infected prosthesis, and at a significantly higher risk of mortality. On physical exam he is not conversive and not cooperative. Laying on his side wrapped up in blankets I really could not do any kind of meaningful examination of his heart and lungs. I would strongly recommend transfer to the [facility] which is the closest [place] that has a comprehensive program for endocarditis which includes drug rehabilitation. Simply performing surgery would otherwise be meaningless. One can survive with severe tricuspid valve regurgitation for some period of time, and as long as his aortic valve is not destroyed, antibiotic therapy should be able to hold him over until he can get proper care, but I would recommend immediate transfer to the [facility]. Apparently a transesophageal echocardiogram was performed today but there is no result available in the computer as yet. Digitally Signed by YAZMIN FERNANDEZ MD on 05/02/2023 04:42 PM [id number] Cardiology Progress note Date of Service 05/02/[address] Dr[address] Gill who underwent YESSENIA earlier this morning. Patient has a 1.5 cm vegetation of the tricuspid valve with severe TR. No vegetations noted on other valves. Digitally Signed by BELKIS ZUNIGA MD on 05/02/2023 04:11 PM [id number] Note* Exam Date Time Procedure Performing Provider Status 05/02/23 12:49 PM Transesophageal Echo cardiogram - CV Auth (Verified) [facility] 01-14-2024 Cardiothoracic surgery Consult note Date of Service 05/01/2023 Reason for Consultation Tricuspid valve endocarditis Referring Physician Dr. Wing History of Present Illness This is a split shared visit with Dr. Fernandez This is a 28-year-old male with a past medical history of tricuspid valve endocarditis, septic emboli, MSSA bacteremia and IV drug use. He was originally seen by our service April of last year. At that time there was no indication for surgery and he was instructed to follow through for the full 6-week course of IV antibiotics. Patient states that he did that last year when he was discharged to a [facility]. He was then discharged home to his mom's house. He states that he has not used IV drugs for a year. Drug screen on admission 04/28/2023 was positive for amphetamines positive for cannabinoid and positive for opiates. He was transferred here from [facility] secondary to chest pain and shortness of breath. He also endorses having left upper back pain for about 6 days.He endorses coughing and hemoptysis. Patient describes the chest pain as a pressure, that especially hurts when he coughs. Anytime he sits up or moves around he has to cough. He had a CTA of the chest that was positive for a pulmonary emboli in his left upper lobe. His CT of the chest without contrast reported numerous bilateral lung nodules some of which are cavitary and possible septic emboli. Blood cultures from on 03/07/2024 positive for MRSA. He has been febrile. Repeat blood cultures 04/30/2023 no growth thus far. Echocardiogram 04/29/2023 demonstrates normal systolic LV function with an EF of 50 to 55%, a large vegetation on the tricuspid valve, severe tricuspid regurgitation and the report states that they cannot rule out vegetation of the aortic valve. YESSENIA is pending on 05/02/2023. We are being asked to see this patient again for tricuspid valve endocarditis. Review of Systems Constitutional see the HPI HEENT denies headache has his own teeth that are in fair condition, does not wear glasses, denies any visual problems Respiratory denies shortness of breath, does have a cough that he states is productive of bloody sputum Cardiovascular see the HPI Vascular he denies any nonhealing ulcers or history of DVT GI denies abdominal pain constipation diarrhea nausea or vomiting denies any pain or burning with urination Neuro denies weakness of EXTR extremities denies numbness or tingling of his extremities Endocrine no polyuria polydipsia polyphagia Hematology no bruising issues or bleeding Musculoskeletal complaining of back pain for the past 6 days Psychological denies anxiety or depression Physical Exam Vitals and Measurements T: 39 C (Oral) TMIN: 36.9 C (Oral) TMAX: 39.5 C (Oral) HR: 120(Apical) RR: 18 BP: 122/56 SpO2: 95% Weight Dosing Weight: 59.1 kg (04/28/23) General appearance -[place] male lying in bed in no acute distress until I asked him to situp second listen to his lungs and he began to cough. Cough is moist but nonproductive at the moment Mentation alert oriented x 3, appropriate, pleasant HEENT head is atraumatic, normocephalic, dentition is fair, hearing intact, trachea midline Heart S1 and S2, sinus tachycardia in the 1 teens to 120s, difficult to assess for murmur as he wascoughing very frequently Lungs clear posteriorly, room air SaO2 95 to 96% Abdomen is soft small nontender bowel sounds present Extremities are perfused pedal pulses +2/3, no edema Neuro moves all of his extremities equally they are strong bilaterally Skin no rashes. Several scabbed areas noted along his arms, 2 scabbed areas noted on his back 1 towards his lower spine. No open sores. Lab Results 05/01 04:12 WBC: 11.7 H Hgb: 8.9 L Hct: 26.8 L Platelet: 117 L Neutrophil %: 77.1 H Glucose Level: 98 Sodium Level: 140 Potassium Level: 3.8 BUN: 15.0 Creatinine Lvl (s): 0.84 04/30 08:46 WBC: 16.5 H Hgb: 10.5 L Hct: 32.1 L Platelet: 107 L Neutrophil %: 81.5 H Glucose Level: 93 Sodium Level: 139 Potassium Level: 3.8 BUN: 14.0 Creatinine Lvl (s): 0.78 Assessment/Plan 1. Endocarditis of tricuspid valve Echocardiogram 04/29/2023 reports a large vegetation of the tricuspid valve, severe tricuspid regurgitation and aortic valve vegetation cannot be ruled out YESSENIA is pending for tomorrow 05/02/2023 ID following, on ceftaroline, daptomycin, Flagyl 2. MRSA bacteremia blood cultures this admission are positive for MRSA PCR also positive for MRSA 3. Septic embolism Noted on CTA and CT of the chest 4. IV drug abuse Patient states he last used about a year ago Drug screen this admission positive 5. Pulmonary emboli Left upper lobe pulmonary emboli on CTA of the chest On Lovenox 6. Transaminitis 7. Back pain MRI of the spine pending Plan: Surgical evaluation to follow per Dr. Fernandez Await YESSENIA results tomorrow Problem List/Past Medical History Ongoing Bacteremia Endocarditis of tricuspid valve IV drug abuse Historical No qualifying data Procedure/Surgical History Thoracentesis: 05/05/22 Transesophageal echocardiogram: 04/20/22 Echocardiogram: 04/14/22 CT angiography of chest with contrast: 04/13/22 CT angiography of chest with contrast: 12/06/19 Medications Inpatient acetaminophen, 650 mg= 2 tab(s), Oral, q6hWA, PRN DAPTOmycin Dextrose 50% IV Push, 12.5 gram(s)= 25 mL, IV Push, AsDirected, PRN docusate-senna 50 mg-8.6 mg oral tablet, 2 tab(s), Oral, qHS Flagyl IVPB, 500 mg= 100 mL, IV Piggyback, q8h Lovenox, 60 mg= 0.6 mL, 1 mg/kg, Subcutaneous, q12h melatonin, 3 mg= 1 tab(s), Oral, qHS, PRN melatonin, 3 mg= 1 tab(s), Oral, qHS, PRN metoprolol tartrate (Lopressor), 12.5 mg= 1 EA, Oral, BIDM Miralax Powder Packet, 17 gram(s)= 15 mL, Oral, qDay oxyCODONE 10 mg oral tablet, ( extended release ), 20 mg= 2 tab(s), Oral, q12h Teflaro IVPB Tylenol, 650 mg= 2 tab(s), Oral, q4h, PRN Valium, 2.5 mg= 0.5 mL, IV Push, q6hr, PRN Vancomycin - TROUGH reminder, 1 EA, Miscellaneous, q12hr Zofran, 4 mg= 2 mL, IV Push, q4h, PRN Zofran ODT, 4 mg= 1 tab(s), Oral, q6h, PRN Home Tylenol 325 mg oral capsule, 650 mg, Oral, q4h, PRN Allergies NKA Social History Smoking Status - 12/25/2015 Current every day smoker Alcohol Use: Never., 06/16/2022 Nutrition/Health Caffeine intake amount: 1 serving daily., 06/16/2022 Substance Abuse Use: Past., 06/16/2022 Use: Current. Type: Heroin. Frequency: 1-2 times per week. Previous treatment: None. Started at age: 20 Years. IV drug use; Yes. Has drug use interfered with your work or home life? No. Ready to change: Yes. Concerns about substance abuse in household: No., 12/06/2019 Tobacco Tobacco Use: 10 or more cigarettes (1/2 pack or more)/day in last 30 days., 02/18/2019 Family History Family history is unknown Immunizations No qualifying data available. Digitally Signed by ALVARO CARRILLO on 05/01/2023 05:09 PM [id number] Note* Exam Date Time Procedure Performing Provider Status 05/01/23 10:22 AM VL Venous US/Doppler Both Legs(for DVT) Auth (Verified) [facility] 01-14-2024 Surgery Hospital Progress note Date of Service 05/01/2023 Subjective Patient resting in bed seems to be much more comfortable compared to prior. Still endorses significant mount of back pain denies any abdominal pain tolerating diet denies nausea or vomiting. Objective Vitals and Measurements T: 37.9 C (Oral) TMIN: 36.9 C (Oral) TMAX: 39.5 C (Oral) HR: 118(Apical) RR: 22 BP: 109/62 SpO2: 93% Intake and Output 7AM Yesterday to 7AM Today Intake and Output (Last 24 hours) Intake Oral Intake 1100.00 Output Urine Voided 950.00 Stool Count 0.00 Total Summary Total Intake 1100.00 Total Output 950.00 Fluid Balance 150.00 Physical Exam No acute distress Nonlabored breathing Abdomen soft nontender nondistended no guarding rigidity Moves all extremities Weight Dosing Weight: 59.1 kg (04/28/23) Medications Medications (14) Active Scheduled: (6) ceftaroline 600 mg 20 mL, IV Piggyback, q12hr enoxaparin 60 mg/ 0.6 mL syringe 60 mg 0.6 mL, Subcutaneous, q12h metoprolol tartrate 12.5 mg ( HALF-TAB ) 12.5 mg 1 EA, Oral, BIDM oxyCODONE 10 mg ER tablet 20 mg 2 tab(s), Oral, q12h vancomycin PMX 1,250 mg 250 mL, IV Piggyback, q12hr vancomycin trough level 1 EA, Miscellaneous, q12hr Continuous: (0) PRN: (8) acetaminophen 325 mg Tablet 650 mg 2 tab(s), Oral, q6hWA acetaminophen 325 mg Tablet 650 mg 2 tab(s), Oral, q4h dextrose 50% Solution Disp syringe 50 mL 12.5 gram(s) 25 mL, IV Push, AsDirected diazepam 5 mg/mL 2mL SYRINGE 2.5 mg 0.5 mL, IV Push, q6hr melatonin 3 mg tablet 3 mg 1 tab(s), Oral, qHS melatonin 3 mg tablet 3 mg 1 tab(s), Oral, qHS ondansetron 2 mg/ 1 mL 2 mL INJ 4 mg 2 mL, IV Push, q4h ondansetron 4 mg DIS tablet 4 mg 1 tab(s), Oral, q6h Lab Results 05/01 04:12 WBC: 11.7 H Hgb: 8.9 L Hct: 26.8 L Platelet: 117 L Neutrophil %: 77.1 H Glucose Level: 98 Sodium Level: 140 Potassium Level: 3.8 BUN: 15.0 Creatinine Lvl (s): 0.84 04/30 08:46 WBC: 16.5 H Hgb: 10.5 L Hct: 32.1 L Platelet: 107 L Neutrophil %: 81.5 H Glucose Level: 93 Sodium Level: 139 Potassium Level: 3.8 BUN: 14.0 Creatinine Lvl (s): 0.78 EKG No qualifying data available. Assessment/Plan 28-year-old male Currently being treated for left upper lobe PE with concern for endocarditis givenprior history. Patient continues to tolerate diet without difficulty. I personally viewed the patient's CT scan only from this admission but from a year ago in comparison the CT still shows a very contracted gallbladder as it was approximately a year ago but now shows a very thick wall. Ultrasoundsconcerning for some pericholecystic fluid as well which is concerning for either acute or chronic cholecystitis. Given the fact that the patient is very asymptomatic from this due to no abdominal pain or tenderness and tolerating a regular diet without any difficulty it is difficult to say how this fits into the patient's bigger picture. Patient seems to be improving overall and I do not believe a cholecystostomy tube would make him better any faster and would likely add on the layer of complexity to the patient's future care for the next 2 months I would treat him conservatively. I appreciate infectious disease input but would make sure the patient has good gram-negative coverage for at least the next 2 weeks. He can follow-up with me in the office in approximately 2 to 3 months or sooner if something changes but would let his endocarditis and MRSA bacteremia settle out and improved before considering any elective cholecystectomy. This was also discussed with the patient and the [facility] team. Will sign off at this time please call with question concerns or change in patient status. Digitally Signed by CLARIBEL LINARES DO on 05/01/2023 09:23 AM [id number] Note ORIGINAL EXAMINATION: RIGHT UPPER QUADRANT ULTRASOUND 04/30/2023 1:04 pm COMPARISON: CT abdomen and pelvis on 04/29/2023 HISTORY: ORDERING SYSTEM PROVIDED HISTORY: Reason for Exam: gall bladder eval. See CT report FINDINGS: LIVER: The liver demonstrates normal echogenicity without evidence of intrahepatic biliary ductal dilatation. The liver is normal in size with long axis of 16 cm. BILIARY SYSTEM: The gallbladder is contracted. There is gallbladder wall thickening measuring 4 mm. There is also complex pericholecystic fluid that measures 15 mm in diameter that surrounds the gallbladder circumferentially. The patient is not tender in the region of the gallbladder. No gallstones are detected. Common bile duct is within normal limits measuring 2 mm. RIGHT KIDNEY: The right kidney is grossly unremarkable without evidence of hydronephrosis. The right kidney measures 11.1 x 4.4 x 5.4 cm PANCREAS: Visualized portions of the pancreas are unremarkable. OTHER: No evidence of right upper quadrant ascites. IMPRESSION: The gallbladder is contracted with gallbladder wall thickening and pericholecystic fluid. No gallstones are detected. The patient is not tender in the region of the gallbladder. Differential diagnosis includes acute or chronic cholecystitis. No biliary ductal dilatation. The liver and right kidney are unremarkable. RECOMMENDATIONS: Nuclear medicine hepatobiliary scan should be considered. Interpreted by: Willy Fernandes MD Preliminary Report By: Willy Fernandes MD Electronically signed By Willy Fernandes MD Dictated Date: 05/01/2023 12:21:00 AM Prelim Date: 05/01/2023 12:24:48 AM Sign Date: 05/01/2023 12:24:48 AM Ordering Provider: [facility]01-13-2024 Surgery Consult note Date of Service April 30, 2023 Reason for Consultation Concerns for cholecystitis Referring Physician Hospitalist History of Present Illness Split shared visit between myself and Dr. Linares. 28-year-old male who presented [facility] emergency department with complaints of shortness of breath and upper back pain. Patient was found to have left upper lobe pulmonary embolus without heart strain and multiple bilateral pulmonary nodules. Patient was transferred to the main hospital for further care. Patient does have a past medical history significant for; IV drug abuse, prior endocarditis with septic emboli, and tobacco use. General surgery was consulted secondary to findings of contracted gallbladder with pericholecystic fluid and mild gallbladder wall thickening noted on CT abdomen/pelvis. Awaiting further ultrasound. Patient did have a white blood cell count of 16.5, and liver function tests are within normal limits. Blood cultures did show MRSA bacteremia. On exam, the patient denies having pain after eating. He states the majority of his pain is locatedin his back. He denies any nausea or vomiting. Review of Systems All pertinent positives and negatives are stated in the HPI above. All other review of systems are considered negative unless otherwise stated above. Physical Exam Vitals and Measurements T: 37 C (Oral) TMIN: 36.8 C (Oral) TMAX: 39.2 C (Oral) HR: 122 RR: 24 BP: 115/88 SpO2: 95% Weight Dosing Weight: 59.1 kg (04/28/23) General Appearance: No acute distress. Head: Normocephalic, atraumatic. EENT: HEENT exam is unremarkable. Neck: Supple. Lungs: Chest rise symmetrical. Abdomen: Soft, nontender. Nondistended, no guarding or rigidity noted. Neurological: Alert and oriented, follows simple commands. Skin: Normal for ethnicity. No jaundice, pallor, or diaphoresis noted. Psychiatric: Calm and cooperative. Lab Results 04/30 08:46 WBC: 16.5 H Hgb: 10.5 L Hct: 32.1 L Platelet: 107 L Neutrophil %: 81.5 H Glucose Level: 93 Sodium Level: 139 Potassium Level: 3.8 BUN: 14.0 Creatinine Lvl (s): 0.78 04/29 03:42 WBC: 16.7 H Hgb: 10.5 L Hct: 31.5 L Platelet: 86 L Neutrophil %: 88.2 H Glucose Level: 161 H Sodium Level: 139 Potassium Level: 3.9 BUN: 14.0 Creatinine Lvl (s): 0.72 Assessment/Plan 28-year-old male who presented to [facility] emergency department last evening with complaints of shortness of breath and upper back pain. Patient is currently being treated for left upper lobepulmonary embolus and will be undergoing a YESSENIA with cardiology to evaluate for endocarditis. General surgery has been consulted due to concerns of cholecystitis found on CT abdomen/pelvis. We will better evaluate the gallbladder via abdominal ultrasound that is to be completed later today. At this time, there is no plan for urgent surgical intervention as the patient is having no symptoms of abdominal pain, nausea, or vomiting. Due to his complex medical course, we will recommend some conservative treatment at this time. We will continue to follow along. Case discussed with Dr. Linares. Addendum to follow. Problem List/Past Medical History Ongoing Bacteremia Endocarditis of tricuspid valve IV drug abuse Historical No qualifying data Procedure/Surgical History Thoracentesis: 05/05/22 Transesophageal echocardiogram: 04/20/22 Echocardiogram: 04/14/22 CT angiography of chest with contrast: 04/13/22 CT angiography of chest with contrast: 12/06/19 Medications Inpatient acetaminophen, 650 mg= 2 tab(s), Oral, q6hWA, PRN albumin human 25% intravenous solution, 25 gram(s)= 100 mL, IV Piggyback (MED), q6h Dextrose 50% IV Push, 12.5 gram(s)= 25 mL, IV Push, AsDirected, PRN Lovenox, 60 mg= 0.6 mL, 1 mg/kg, Subcutaneous, q12h melatonin, 3 mg= 1 tab(s), Oral, qHS, PRN melatonin, 3 mg= 1 tab(s), Oral, qHS, PRN oxyCODONE 10 mg oral tablet, ( extended release ), 20 mg= 2 tab(s), Oral, q12h Teflaro IVPB Tylenol, 650 mg= 2 tab(s), Oral, q4h, PRN Valium, 2.5 mg= 0.5 mL, IV Push, q6hr, PRN vancomycin, 1250 mg= 250 mL, IV Piggyback, q12hr Zofran, 4 mg= 2 mL, IV Push, q4h, PRN Zofran ODT, 4 mg= 1 tab(s), Oral, q6h, PRN Home Tylenol 325 mg oral capsule, 650 mg, Oral, q4h, PRN Allergies NKA Social History Smoking Status - 12/25/2015 Current every day smoker Alcohol Use: Never., 06/16/2022 Nutrition/Health Caffeine intake amount: 1 serving daily., 06/16/2022 Substance Abuse Use: Past., 06/16/2022 Use: Current. Type: Heroin. Frequency: 1-2 times per week. Previous treatment: None. Started at age: 20 Years. IV drug use; Yes. Has drug use interfered with your work or home life? No. Ready to change: Yes. Concerns about substance abuse in household: No., 12/06/2019 Tobacco Tobacco Use: 10 or more cigarettes (1/2 pack or more)/day in last 30 days., 02/18/2019 Family History Family history is unknown Immunizations No qualifying data available. Digitally Signed by SANJAY MAURO on 04/30/2023 12:31 PM [id number] Surgery Consult note Date of Service April 30, 2023 Reason for Consultation Concerns for cholecystitis Referring Physician Hospitalist History of Present Illness Split shared visit between myself and Dr. Linares. 28-year-old male who presented [facility] emergency department with complaints of shortness of breath and upper back pain. Patient was found to have left upper lobe pulmonary embolus without heart strain and multiple bilateral pulmonary nodules. Patient was transferred to the main hospital for further care. Patient does have a past medical history significant for; IV drug abuse, prior endocarditis with septic emboli, and tobacco use. General surgery was consulted secondary to findings of contracted gallbladder with pericholecystic fluid and mild gallbladder wall thickening noted on CT abdomen/pelvis. Awaiting further ultrasound. Patient did have a white blood cell count of 16.5, and liver function tests are within normal limits. Blood cultures did show MRSA bacteremia. On exam, the patient denies having pain after eating. He states the majority of his pain is locatedin his back. He denies any nausea or vomiting. Review of Systems All pertinent positives and negatives are stated in the HPI above. All other review of systems are considered negative unless otherwise stated above. Physical Exam Vitals and Measurements T: 37 C (Oral) TMIN: 36.8 C (Oral) TMAX: 39.2 C (Oral) HR: 122 RR: 24 BP: 115/88 SpO2: 95% Weight Dosing Weight: 59.1 kg (04/28/23) General Appearance: No acute distress. Head: Normocephalic, atraumatic. EENT: HEENT exam is unremarkable. Neck: Supple. Lungs: Chest rise symmetrical. Abdomen: Soft, nontender. Nondistended, no guarding or rigidity noted. Neurological: Alert and oriented, follows simple commands. Skin: Normal for ethnicity. No jaundice, pallor, or diaphoresis noted. Psychiatric: Calm and cooperative. Lab Results 04/30 08:46 WBC: 16.5 H Hgb: 10.5 L Hct: 32.1 L Platelet: 107 L Neutrophil %: 81.5 H Glucose Level: 93 Sodium Level: 139 Potassium Level: 3.8 BUN: 14.0 Creatinine Lvl (s): 0.78 04/29 03:42 WBC: 16.7 H Hgb: 10.5 L Hct: 31.5 L Platelet: 86 L Neutrophil %: 88.2 H Glucose Level: 161 H Sodium Level: 139 Potassium Level: 3.9 BUN: 14.0 Creatinine Lvl (s): 0.72 Assessment/Plan 28-year-old male who presented to [facility] emergency department last evening with complaints of shortness of breath and upper back pain. Patient is currently being treated for left upper lobepulmonary embolus and will be undergoing a YESSENIA with cardiology to evaluate for endocarditis. General surgery has been consulted due to concerns of cholecystitis found on CT abdomen/pelvis. We will better evaluate the gallbladder via abdominal ultrasound that is to be completed later today. At this time, there is no plan for urgent surgical intervention as the patient is having no symptoms of abdominal pain, nausea, or vomiting. Due to his complex medical course, we will recommend some conservative treatment at this time. We will continue to follow along. Case discussed with Dr. Linares. Addendum to follow. Problem List/Past Medical History Ongoing Bacteremia Endocarditis of tricuspid valve IV drug abuse Historical No qualifying data Procedure/Surgical History Thoracentesis: 05/05/22 Transesophageal echocardiogram: 04/20/22 Echocardiogram: 04/14/22 CT angiography of chest with contrast: 04/13/22 CT angiography of chest with contrast: 12/06/19 Medications Inpatient acetaminophen, 650 mg= 2 tab(s), Oral, q6hWA, PRN albumin human 25% intravenous solution, 25 gram(s)= 100 mL, IV Piggyback (MED), q6h Dextrose 50% IV Push, 12.5 gram(s)= 25 mL, IV Push, AsDirected, PRN Lovenox, 60 mg= 0.6 mL, 1 mg/kg, Subcutaneous, q12h melatonin, 3 mg= 1 tab(s), Oral, qHS, PRN melatonin, 3 mg= 1 tab(s), Oral, qHS, PRN oxyCODONE 10 mg oral tablet, ( extended release ), 20 mg= 2 tab(s), Oral, q12h Teflaro IVPB Tylenol, 650 mg= 2 tab(s), Oral, q4h, PRN Valium, 2.5 mg= 0.5 mL, IV Push, q6hr, PRN vancomycin, 1250 mg= 250 mL, IV Piggyback, q12hr Zofran, 4 mg= 2 mL, IV Push, q4h, PRN Zofran ODT, 4 mg= 1 tab(s), Oral, q6h, PRN Home Tylenol 325 mg oral capsule, 650 mg, Oral, q4h, PRN Allergies NKA Social History Smoking Status - 12/25/2015 Current every day smoker Alcohol Use: Never., 06/16/2022 Nutrition/Health Caffeine intake amount: 1 serving daily., 06/16/2022 Substance Abuse Use: Past., 06/16/2022 Use: Current. Type: Heroin. Frequency: 1-2 times per week. Previous treatment: None. Started at age: 20 Years. IV drug use; Yes. Has drug use interfered with your work or home life? No. Ready to change: Yes. Concerns about substance abuse in household: No., 12/06/2019 Tobacco Tobacco Use: 10 or more cigarettes (1/2 pack or more)/day in last 30 days., 02/18/2019 Family History Family history is unknown Immunizations No qualifying data available. Digitally Signed by SANJAY MAURO on 04/30/2023 12:31 PM [id number]. MICRO - Microbiology PROCEDURE: Blood Culture (bacterial) [*1] SOURCE: Blood BODY SITE: COLLECTED DATE/TIME: 04/28/2023 07:16 EST RECEIVED DATE/TIME: 04/28/2023 16:00 EST START DATE/TIME: 04/28/2023 16:01 EST FREE TEXT SOURCE: FINAL REPORTS Final Report [] Verified Date/Time/Personnel: 04/30/2023 08:40 EST Methicillin-Resistant Staphylococcus aureus Isolated from aerobe and anaerobe bottles. Refer to previous culture for susceptibility. [id number] collected 04/28/23 PRELIMINARY REPORTS Preliminary Report [] Verified Date/Time/Personnel: 04/28/2023 16:59 EST Culture has been received in lab and is no growth to date. Routine cultures are held for 5 days. STAINS GSANA [] Verified Date/Time/Personnel: 04/29/2023 11:05 EST Gram Positive Cocci GSAER [] Verified Date/Time/Personnel: 04/29/2023 00:57 EST Gram Positive Cocci in clusters Performing Locations *1: This test was performed at: [facility], [address] [place] [address], [id number] , [facility] ([place])04-30-2023 Note. MICRO - Microbiology PROCEDURE: Blood Culture (bacterial) [*1] SOURCE: Blood BODY SITE: COLLECTED DATE/TIME: 04/28/2023 07:16 EST RECEIVED DATE/TIME: 04/28/2023 16:00 EST START DATE/TIME: 04/28/2023 16:01 EST FREE TEXT SOURCE: AMENDED REPORTS Amended Report [] Verified Date/Time/Personnel: 04/30/2023 08:39 EST Methicillin-Resistant Staphylococcus aureus Isolated from aerobe and anaerobe bottles. This staphylococci does not demonstrate inducible clindamycin resistance in vitro. FINAL REPORTS Final Report [] Verified Date/Time/Personnel: 04/30/2023 07:47 EST Methicillin-Resistant Staphylococcus aureus Isolated from aerobe bottle only. This staphylococci does not demonstrate inducible clindamycin resistance in vitro. PRELIMINARY REPORTS Preliminary Report [] Verified Date/Time/Personnel: 04/29/2023 12:32 EST Staphylococcus aureus Isolated from aerobe bottle only. LOY to follow Preliminary Report [] Verified Date/Time/Personnel: 04/28/2023 16:59 EST Culture has been received in lab and is no growth to date. Routine cultures are held for 5 days. STAINS GSANA [] Verified Date/Time/Personnel: 04/29/2023 13:41 EST Gram Positive Cocci GSAER [] Verified Date/Time/Personnel: 04/28/2023 23:46 EST Gram Positive Cocci in clusters SUSCEPTIBILITY RESULTS Methicillin-Resistant Staphylococcus aureus Antibiotic LOY Dilut LOY Inter Ampicillin/ <=8/4 Resistant Sulbactam Azithromycin >4 Resistant Cefepime 8 Resistant Cefotaxime <=8 Resistant Ceftaroline <=0.5 Susceptible Ceftriaxone <=4 Resistant Ciprofloxacin <=1 Susceptible Clindamycin <=0.25 Susceptible Daptomycin <=0.5 Susceptible Erythromycin >4 Resistant Imipenem <=4 Resistant Levofloxacin <=1 Susceptible Linezolid 2 Susceptible Meropenem <=2 Resistant Oxacillin >2 Resistant Penicillin >2 Resistant Rifampin <=1 Susceptible MICRO - Microbiology SUSCEPTIBILITY RESULTS Methicillin-Resistant Staphylococcus aureus Antibiotic LOY Dilut LOY Inter Tetracycline <=4 Susceptible Trimethoprim/ <=0.5/9.5 Susceptible Sulfa Vancomycin 1 Susceptible Performing Locations *1: This test was performed at: [facility], [address] [place] [address], [facility] , [facility] ([place])04-29-2023 Note ORIGINAL EXAMINATION: CT OF THE HEAD WITH CONTRAST 04/29/2023 10:19 pm TECHNIQUE: CT of the head/brain was performed with the administration of intravenous contrast. Multiplanar reformatted images are provided for review. Automated exposure control, iterative reconstruction, and/or weight based adjustment of the mA/kV was utilized to reduce the radiation dose to as low as reasonably achievable. COMPARISON: None. HISTORY: ORDERING SYSTEM PROVIDED HISTORY: Reason for Exam: HEADACHE GENERAL PAIN EVERYWHERE MRSA bacteremia, rule out embolic lesions FINDINGS: BRAIN/VENTRICLES: There is no acute intracranial hemorrhage, mass effect or midline shift. No abnormal extra-axial fluid collection. The sadler-white differentiation is maintained without evidence of an acute infarct. There is no evidence of hydrocephalus. ORBITS: The visualized portion of the orbits demonstrate no acute abnormality. SINUSES: Mild mucosal thickening in the right sphenoid sinus, some of the ethmoid air cells and opacification of right frontoethmoidal recess. Otherwise the visualized paranasal sinuses and mastoid air cells demonstrate no acute abnormality. SOFT TISSUES/SKULL: No acute abnormality of the visualized skull or soft tissues. IMPRESSION: No acute intracranial abnormality or abnormal enhancement. Interpreted by: Ronny Ramriez Preliminary Report By: Ronny Ramirez Electronically signed By Ronny Ramirez Dictated Date: 04/29/2023 10:47:19 PM Prelim Date: 04/29/2023 10:53:01 PM Sign Date: 04/29/2023 10:53:01 PM Ordering Provider: [facility]01-12-2024 Note ORIGINAL EXAMINATION: CT OF THE CHEST WITH CONTRAST; CT OF THE ABDOMEN AND PELVIS WITH CONTRAST 04/29/2023 10:18 pm TECHNIQUE: CT of the chest, abdomen, and pelvis was performed with the administration of intravenous contrast. Multiplanar reformatted images are provided for review. Automated exposure control, iterative reconstruction, and/or weight based adjustment of the mA/kV was utilized to reduce the radiation dose to as low as reasonably achievable.; CT of the abdomen and pelvis was performed with the administration of intravenous contrast. Multiplanar reformatted images are provided for review. Automated exposure control, iterative reconstruction, and/or weight based adjustment of the mA/kV was utilized to reduce the radiation dose to as low as reasonably achievable. COMPARISON: CT chest on 04/13/2022.. CT chest on 04/28/2023. CT abdomen and pelvis on 04/18/2022 HISTORY: ORDERING SYSTEM PROVIDED HISTORY: Reason for Exam: CHEST PAIN MID SOB Infection with bacteremia FINDINGS: Mediastinum: There is no mediastinal mass or lymph node enlargement. Mild cardiomegaly is stable. There is no pericardial fluid. The thoracic aorta is nonaneurysmal. The small left upper lobe pulmonary thromboembolism was better demonstrated on the CT angiogram of the chest on the prior day. No large pulmonary emboli are seen at this time. Main pulmonary artery is normal in size. Lungs/pleura: Small bilateral pleural effusions are new compared with CT scan on the prior day. There are numerous bilateral lung nodules. Some of which show cavitation. The largest right lung nodule is in the right lower lobe and measures 3.8 cm. Largest left lung nodule is 3.5 cm. 1.2 cm left hilar lymph node is present. Calcified lymph nodes are present in the right hilar region. There is no pneumothorax. Abdomen: The liver is enlarged with right lobe having a long axis of 20 cm. The spleen is also enlarged with AP diameter of 14.5 cm. Similar hepatosplenomegaly was seen on 04/18/2022. Gallbladder is contracted and there is pericholecystic fluid with mild gallbladder wall thickening. Bile ducts are not dilated. The pancreas, adrenal glands, and kidneys show no sign of abnormality. There is no intestinal obstruction or inflammation. No abnormal fluid or gas collection is seen in the abdomen. There is no retroperitoneal lymph node enlargement. Abdominal aorta is normal in diameter. Pelvis: The urinary bladder is normal in size. There is no pelvic mass or abnormal fluid collection. No lymph node enlargement is present. Soft Tissues/Bones: No acute findings. IMPRESSION: Numerous bilateral lung nodules, some of which show cavitation. Differential diagnosis includes septic emboli, metastatic disease, and vasculitis. New small bilateral pleural effusions. Stable mild cardiomegaly. Stable hepatosplenomegaly. Contracted gallbladder with pericholecystic fluid and mild gallbladder wall thickening. This could be due to hypoproteinemia or cholecystitis. Correlate clinically and consider gallbladder ultrasound for further evaluation. Interpreted by: Willy Fernandes MD Preliminary Report By: Willy Fernandes MD Electronically signed By Willy Fernandes MD Dictated Date: 04/30/2023 1:03:17 AM Prelim Date: 04/30/2023 1:15:47 AM Sign Date: 04/30/2023 1:15:47 AM Ordering Provider: [facility]01-12-2024 Note ORIGINAL EXAMINATION: CT OF THE CHEST WITH CONTRAST; CT OF THE ABDOMEN AND PELVIS WITH CONTRAST 04/29/2023 10:18 pm TECHNIQUE: CT of the chest, abdomen, and pelvis was performed with the administration of intravenous contrast. Multiplanar reformatted images are provided for review. Automated exposure control, iterative reconstruction, and/or weight based adjustment of the mA/kV was utilized to reduce the radiation dose to as low as reasonably achievable.; CT of the abdomen and pelvis was performed with the administration of intravenous contrast. Multiplanar reformatted images are provided for review. Automated exposure control, iterative reconstruction, and/or weight based adjustment of the mA/kV was utilized to reduce the radiation dose to as low as reasonably achievable. COMPARISON: CT chest on 04/13/2022.. CT chest on 04/28/2023. CT abdomen and pelvis on 04/18/2022 HISTORY: ORDERING SYSTEM PROVIDED HISTORY: Reason for Exam: CHEST PAIN MID SOB Infection with bacteremia FINDINGS: Mediastinum: There is no mediastinal mass or lymph node enlargement. Mild cardiomegaly is stable. There is no pericardial fluid. The thoracic aorta is nonaneurysmal. The small left upper lobe pulmonary thromboembolism was better demonstrated on the CT angiogram of the chest on the prior day. No large pulmonary emboli are seen at this time. Main pulmonary artery is normal in size. Lungs/pleura: Small bilateral pleural effusions are new compared with CT scan on the prior day. There are numerous bilateral lung nodules. Some of which show cavitation. The largest right lung nodule is in the right lower lobe and measures 3.8 cm. Largest left lung nodule is 3.5 cm. 1.2 cm left hilar lymph node is present. Calcified lymph nodes are present in the right hilar region. There is no pneumothorax. Abdomen: The liver is enlarged with right lobe having a long axis of 20 cm. The spleen is also enlarged with AP diameter of 14.5 cm. Similar hepatosplenomegaly was seen on 04/18/2022. Gallbladder is contracted and there is pericholecystic fluid with mild gallbladder wall thickening. Bile ducts are not dilated. The pancreas, adrenal glands, and kidneys show no sign of abnormality. There is no intestinal obstruction or inflammation. No abnormal fluid or gas collection is seen in the abdomen. There is no retroperitoneal lymph node enlargement. Abdominal aorta is normal in diameter. Pelvis: The urinary bladder is normal in size. There is no pelvic mass or abnormal fluid collection. No lymph node enlargement is present. Soft Tissues/Bones: No acute findings. IMPRESSION: Numerous bilateral lung nodules, some of which show cavitation. Differential diagnosis includes septic emboli, metastatic disease, and vasculitis. New small bilateral pleural effusions. Stable mild cardiomegaly. Stable hepatosplenomegaly. Contracted gallbladder with pericholecystic fluid and mild gallbladder wall thickening. This could be due to hypoproteinemia or cholecystitis. Correlate clinically and consider gallbladder ultrasound for further evaluation. Interpreted by: Willy Fernandes MD Preliminary Report By: Willy Fernandes MD Electronically signed By Willy Fernandes MD Dictated Date: 04/30/2023 1:03:17 AM Prelim Date: 04/30/2023 1:15:47 AM Sign Date: 04/30/2023 1:15:47 AM Ordering Provider: [facility]01-12-2024 Cardiology Consult note Date of Service 04/29/2023 Reason for Consultation YESSENIA evaluation History of Present Illness 28-year-old male with past medical history of prior endocarditis with septic emboli, prior IV drug use, tobacco use presented with a complaint of shortness of breath and back pain. Patient was noted to have new onset pulmonary embolism as well as MRSA bacteremia. Cardiology team was consulted for YESSENIA evaluation. Patient's 2 blood cultures have noted to be staff aureus positive Review of Systems Reviewed and negative except mentioned HPI Physical Exam Vitals and Measurements T: 36.8 C (Oral) TMIN: 36.5 C (Oral) TMAX: 36.9 C (Oral) HR: 130 RR: 28 BP: 100/56 SpO2: 96% HT: 175.3 cm WT: 59.1 kg BMI: 19.23 Weight Dosing Weight: 59.1 kg (04/28/23) General Appearance: Comfortable, not in acute distress HEENT:Bilateral normal eye movements, normal oral cavity Neck: No JVD noted Cardiac: S1, S2, no murmurs, regular rhythm, normal rate, Lungs: No wheezes, normal chest expansion. Abdomen: No tenderness, no distention, normal bowel sounds. Musculoskeletal: No signs of acute synovitis. Neurological: Alert and oriented x3, no focal neurological deficits grossly. Extremities: no lower extremity edema, Psychiatric: Appropriate, normal mood. Lab Results 04/29 03:42 WBC: 16.7 H Hgb: 10.5 L Hct: 31.5 L Platelet: 86 L Neutrophil %: 88.2 H Glucose Level: 161 H Sodium Level: 139 Potassium Level: 3.9 BUN: 14.0 Creatinine Lvl (s): 0.72 Assessment/Plan # YESSENIA evaluation # MRSA bacteremia # History of IV drug use # Left upper lobe pulmonary embolism # Multiple bilateral pulmonary nodules/concern for septic emboli Plan 2D echocardiogram is in progress Patient denied any history of difficulty swallowing or GERD. He denied any loose teeth. Mallampati score is 2. Will proceed with YESSENIA. N.p.o. after midnight Tuesday Rest of the medical management as per primary team Thank you for the consult. Problem List/Past Medical History Ongoing Bacteremia Endocarditis of tricuspid valve IV drug abuse Historical No qualifying data Procedure/Surgical History Thoracentesis: 05/05/22 Transesophageal echocardiogram: 04/20/22 Echocardiogram: 04/14/22 CT angiography of chest with contrast: 04/13/22 CT angiography of chest with contrast: 12/06/19 Medications Inpatient acetaminophen, 650 mg= 2 tab(s), Oral, q6hWA, PRN Dextrose 50% IV Push, 12.5 gram(s)= 25 mL, IV Push, AsDirected, PRN Heparin for IV 25,000 unit(s) [18 unit(s)/kg/hr] + Dextrose 5% Premix Diluent 250 mL Heparin HBW Bolus 5000 units/mL, 4137 unit(s)= 0.83 mL, 70 unit(s)/kg, IV Push, q6h, PRN Heparin HBW Bolus 5000 units/mL, 2364 unit(s)= 0.47 mL, 40 unit(s)/kg, IV Push, q6h, PRN LR 1,000 mL, 1000 mL, Intravenous melatonin, 3 mg= 1 tab(s), Oral, qHS, PRN melatonin, 3 mg= 1 tab(s), Oral, qHS, PRN vancomycin, 750 mg= 250 mL, IV Piggyback, q8h Vancomycin - TROUGH reminder, 1 EA, Miscellaneous, q12hr Zofran, 4 mg= 2 mL, IV Push, q4h, PRN Zofran ODT, 4 mg= 1 tab(s), Oral, q6h, PRN Home Tylenol 325 mg oral capsule, 650 mg, Oral, q4h, PRN Allergies NKA Social History Smoking Status - 12/25/2015 Current every day smoker Alcohol Use: Never., 06/16/2022 Nutrition/Health Caffeine intake amount: 1 serving daily., 06/16/2022 Substance Abuse Use: Past., 06/16/2022 Use: Current. Type: Heroin. Frequency: 1-2 times per week. Previous treatment: None. Started at age: 20 Years. IV drug use; Yes. Has drug use interfered with your work or home life? No. Ready to change: Yes. Concerns about substance abuse in household: No., 12/06/2019 Tobacco Tobacco Use: 10 or more cigarettes (1/2 pack or more)/day in last 30 days., 02/18/2019 Family History Family history is unknown Immunizations No qualifying data available. Digitally Signed by TORSTEN BARBER MD on 04/29/2023 05:20 PM [id number] Infectious disease Consult note Date of Service 04/29/2022 Reason for Consultation Concern for septic emboli; hx of endocarditis Referring Physician Dr Mcmullen History of Present Illness This is a 28 year-old male with PMHx prior endocarditis with septic emboli, prior IVDU with last use over 1 year ago per patient, tobacco use presents to the hospital as a transfer from [place] ED for CP, SOB. History obtained by patient, ED physician, chart review. Patient was admitted a year agofor septic emboli. Treated with outpatient nafcillin for MSSA and completed 6-week course. Over thepast 3 days he has been having significant left-sided back pain, shortness of breath. He denies anyrecent prolonged immobilization. No prior history of blood clots per patient. Endorses a history ofhepatitis. No significant alcohol use. On presentation to the emergency room, patient was tachycardic, hypotensive and tachypneic. CBC revealed cytosis of 25,300. D-dimer was elevated. Transaminase levels mildly elevated.CT angiography shows paraseptal emphysema. Left upper lobe pulmonary embolism.No evidence of right heart strain. Multiple bilateral pulmonary nodules. Many of which are cavitated. Some previous have resolved and some are new. Septic emboli and atypical infectious or inflammatory etiologies are leading considerations. ECG shows sinus tachycardia.He was given ceftriaxone, Levaquin, IV fluids, pain control. ID has been consulted for antimicrobial management. Review of Systems Complains of fatigue and lower back pain but no acute deficits otherwise 10 point review of systemsnegative, denied recent IV drug use when I discussed with him this afternoon Physical Exam Vitals and Measurements T: 36.8 C (Oral) TMIN: 36.5 C (Oral) TMAX: 36.9 C (Oral) HR: 130 RR: 28 BP: 100/56 SpO2: 96% HT: 175.3 cm WT: 59.1 kg BMI: 19.23 Weight Dosing Weight: 59.1 kg (04/28/23) General Appearance: Sleepy but arousable, oriented when awakened HEENT: Normocephaly. No acute findings Neck: Normal without lymphadenopathy Cardiac: Heart regular rhythm Lungs: Clear Abdomen: Soft, non-tender, non-distended Extremities:Warm without clubbing, cyanosis or edema. Old healed skin lesions Neurological: No deficits Skin: Warm, dry, intact. No rashes Psychiatric: No abnormal behaviors Lab Results 04/29 03:42 WBC: 16.7 H Hgb: 10.5 L Hct: 31.5 L Platelet: 86 L Neutrophil %: 88.2 H Glucose Level: 161 H Sodium Level: 139 Potassium Level: 3.9 BUN: 14.0 Creatinine Lvl (s): 0.72 Imaging Results and Diagnostics Imaging was reviewed from [place] Assessment/Plan Sepsis MRSA bacteremia History of endocarditis History of IV drug use Left upper lobe pulmonary embolism Multiple bilateral pulmonary nodules some which are cavitated and concerning for septic emboli This is a 28 year-old male with PMHx prior endocarditis with septic emboli, prior IVDU with last use over 1 year ago per patient, tobacco use presents to the hospital as a transfer from [place] ED for CP, SOB. History obtained by patient, ED physician, chart review. Patient was admitted a year agofor septic emboli. Treated with outpatient nafcillin for MSSA and completed 6-week course. Over thepast 3 days he has been having significant left-sided back pain, shortness of breath. He denies anyrecent prolonged immobilization. No prior history of blood clots per patient. Endorses a history ofhepatitis. No significant alcohol use. On presentation to the emergency room, patient was tachycardic, hypotensive and tachypneic. CBC revealed cytosis of 25,300. D-dimer was elevated. Transaminase levels mildly elevated.CT angiography shows paraseptal emphysema. Left upper lobe pulmonary embolism.No evidence of right heart strain. Multiple bilateral pulmonary nodules. Many of which are cavitated. Some previous have resolved and some are new. Septic emboli and atypical infectious or inflammatory etiologies are leading considerations. ECG shows sinus tachycardia.He was given ceftriaxone, Levaquin, IV fluids, pain control. ID has been consulted for antimicrobial management. MRSA PCR was positive Flu COVID, RSV was negative Toxicology screen was notable for amphetamines, cannabinoids and opiates Over the past 24 hours, patient has remained afebrile. He continues to have persistent tachycardia and tachypneic at times. Saturating on a 95% on room air today patient's white count has decreased to 60,700 compared to 24,300. Transaminase levels are mildly elevated and lactic is now within normallimits. Blood pressure has been soft since admission Initial blood cultures x 2 sets on 04/28 positive for MRSA per blood PCR. Repeat blood cultures havebeen ordered showing no growth to date. Will obtain echocardiogram to rule vegetations however if repeat blood cultures are positive the patient will need YESSENIA given his history of endocarditis and IVdrug use. Given the concern of septic emboli and cavitary lung nodules in the setting of MRSA bacteremia, thepatient will require full workup with CT scan of the abdomen and pelvis and thorax and CT scan of head to rule out further embolic processes Also the patient will require MRI of the lumbar and thoracic spine given his back pain Obtain HIV, RPR and acute hepatitis panel Adjust antimicrobial therapy to vancomycin and imaging studies as above will be ordered Thank you for this consultation, will follow I was present for Aurora Fox LPN , and personally directed, all components of the patient's complete evaluation and management documented by the scribe today. I have personally examined the patient and reviewed all diagnostic data. I have reviewed all of this documentation by the scribe. It documents the history obtained, examination performed, diagnostic testing results compiled by him/her,and discharge information. Problem List/Past Medical History Ongoing Bacteremia Endocarditis of tricuspid valve IV drug abuse Historical No qualifying data Procedure/Surgical History Thoracentesis: 05/05/22 Transesophageal echocardiogram: 04/20/22 Echocardiogram: 04/14/22 CT angiography of chest with contrast: 04/13/22 CT angiography of chest with contrast: 12/06/19 Medications Inpatient acetaminophen, 650 mg= 2 tab(s), Oral, q6hWA, PRN Dextrose 50% IV Push, 12.5 gram(s)= 25 mL, IV Push, AsDirected, PRN Heparin for IV 25,000 unit(s) [18 unit(s)/kg/hr] + Dextrose 5% Premix Diluent 250 mL Heparin HBW Bolus 5000 units/mL, 4137 unit(s)= 0.83 mL, 70 unit(s)/kg, IV Push, q6h, PRN Heparin HBW Bolus 5000 units/mL, 2364 unit(s)= 0.47 mL, 40 unit(s)/kg, IV Push, q6h, PRN melatonin, 3 mg= 1 tab(s), Oral, qHS, PRN melatonin, 3 mg= 1 tab(s), Oral, qHS, PRN vancomycin, 750 mg= 250 mL, IV Piggyback, q8h Vancomycin - TROUGH reminder, 1 EA, Miscellaneous, q12hr Zofran, 4 mg= 2 mL, IV Push, q4h, PRN Zofran ODT, 4 mg= 1 tab(s), Oral, q6h, PRN Home Tylenol 325 mg oral capsule, 650 mg, Oral, q4h, PRN Allergies NKA Social History Smoking Status - 12/25/2015 Current every day smoker Alcohol Use: Never., 06/16/2022 Nutrition/Health Caffeine intake amount: 1 serving daily., 06/16/2022 Substance Abuse Use: Past., 06/16/2022 Use: Current. Type: Heroin. Frequency: 1-2 times per week. Previous treatment: None. Started at age: 20 Years. IV drug use; Yes. Has drug use interfered with your work or home life? No. Ready to change: Yes. Concerns about substance abuse in household: No., 12/06/2019 Tobacco Tobacco Use: 10 or more cigarettes (1/2 pack or more)/day in last 30 days., 02/18/2019 Family History Family history is unknown Immunizations No qualifying data available. Digitally Signed by Aurora Fox on 04/29/2023 12:25 PM Digitally Signed by TANYA WESTFALL BA, MD on 04/29/2023 03:25 PM [id number]* Exam Date Time Procedure Performing Provider Status 04/29/23 3:12 PM Echocardiogram, Adult - CV Auth (Verified) [facility] 01-12-2024 Cardiology Consult note Date of Service 04/29/2023 Reason for Consultation YESSENIA evaluation History of Present Illness 28-year-old male with past medical history of prior endocarditis with septic emboli, prior IV drug use, tobacco use presented with a complaint of shortness of breath and back pain. Patient was noted to have new onset pulmonary embolism as well as MRSA bacteremia. Cardiology team was consulted for YESSENIA evaluation. Patient's 2 blood cultures have noted to be staff aureus positive Review of Systems Reviewed and negative except mentioned HPI Physical Exam Vitals and Measurements T: 36.8 C (Oral) TMIN: 36.5 C (Oral) TMAX: 36.9 C (Oral) HR: 130 RR: 28 BP: 100/56 SpO2: 96% HT: 175.3 cm WT: 59.1 kg BMI: 19.23 Weight Dosing Weight: 59.1 kg (04/28/23) General Appearance: Comfortable, not in acute distress HEENT:Bilateral normal eye movements, normal oral cavity Neck: No JVD noted Cardiac: S1, S2, no murmurs, regular rhythm, normal rate, Lungs: No wheezes, normal chest expansion. Abdomen: No tenderness, no distention, normal bowel sounds. Musculoskeletal: No signs of acute synovitis. Neurological: Alert and oriented x3, no focal neurological deficits grossly. Extremities: no lower extremity edema, Psychiatric: Appropriate, normal mood. Lab Results 04/29 03:42 WBC: 16.7 H Hgb: 10.5 L Hct: 31.5 L Platelet: 86 L Neutrophil %: 88.2 H Glucose Level: 161 H Sodium Level: 139 Potassium Level: 3.9 BUN: 14.0 Creatinine Lvl (s): 0.72 Assessment/Plan # YESSENIA evaluation # MRSA bacteremia # History of IV drug use # Left upper lobe pulmonary embolism # Multiple bilateral pulmonary nodules/concern for septic emboli Plan 2D echocardiogram is in progress Patient denied any history of difficulty swallowing or GERD. He denied any loose teeth. Mallampati score is 2. Will proceed with YESSENIA. N.p.o. after midnight Tuesday Rest of the medical management as per primary team Thank you for the consult. Problem List/Past Medical History Ongoing Bacteremia Endocarditis of tricuspid valve IV drug abuse Historical No qualifying data Procedure/Surgical History Thoracentesis: 05/05/22 Transesophageal echocardiogram: 04/20/22 Echocardiogram: 04/14/22 CT angiography of chest with contrast: 04/13/22 CT angiography of chest with contrast: 12/06/19 Medications Inpatient acetaminophen, 650 mg= 2 tab(s), Oral, q6hWA, PRN Dextrose 50% IV Push, 12.5 gram(s)= 25 mL, IV Push, AsDirected, PRN Heparin for IV 25,000 unit(s) [18 unit(s)/kg/hr] + Dextrose 5% Premix Diluent 250 mL Heparin HBW Bolus 5000 units/mL, 4137 unit(s)= 0.83 mL, 70 unit(s)/kg, IV Push, q6h, PRN Heparin HBW Bolus 5000 units/mL, 2364 unit(s)= 0.47 mL, 40 unit(s)/kg, IV Push, q6h, PRN LR 1,000 mL, 1000 mL, Intravenous melatonin, 3 mg= 1 tab(s), Oral, qHS, PRN melatonin, 3 mg= 1 tab(s), Oral, qHS, PRN vancomycin, 750 mg= 250 mL, IV Piggyback, q8h Vancomycin - TROUGH reminder, 1 EA, Miscellaneous, q12hr Zofran, 4 mg= 2 mL, IV Push, q4h, PRN Zofran ODT, 4 mg= 1 tab(s), Oral, q6h, PRN Home Tylenol 325 mg oral capsule, 650 mg, Oral, q4h, PRN Allergies NKA Social History Smoking Status - 12/25/2015 Current every day smoker Alcohol Use: Never., 06/16/2022 Nutrition/Health Caffeine intake amount: 1 serving daily., 06/16/2022 Substance Abuse Use: Past., 06/16/2022 Use: Current. Type: Heroin. Frequency: 1-2 times per week. Previous treatment: None. Started at age: 20 Years. IV drug use; Yes. Has drug use interfered with your work or home life? No. Ready to change: Yes. Concerns about substance abuse in household: No., 12/06/2019 Tobacco Tobacco Use: 10 or more cigarettes (1/2 pack or more)/day in last 30 days., 02/18/2019 Family History Family history is unknown Immunizations No qualifying data available. Digitally Signed by TORSTEN BARBER MD on 04/29/2023 05:20 PM [id number] Infectious disease Consult note Date of Service 04/29/2022 Reason for Consultation Concern for septic emboli; hx of endocarditis Referring Physician Dr Mcmullen History of Present Illness This is a 28 year-old male with PMHx prior endocarditis with septic emboli, prior IVDU with last use over 1 year ago per patient, tobacco use presents to the hospital as a transfer from [place] ED for CP, SOB. History obtained by patient, ED physician, chart review. Patient was admitted a year agofor septic emboli. Treated with outpatient nafcillin for MSSA and completed 6-week course. Over thepast 3 days he has been having significant left-sided back pain, shortness of breath. He denies anyrecent prolonged immobilization. No prior history of blood clots per patient. Endorses a history ofhepatitis. No significant alcohol use. On presentation to the emergency room, patient was tachycardic, hypotensive and tachypneic. CBC revealed cytosis of 25,300. D-dimer was elevated. Transaminase levels mildly elevated.CT angiography shows paraseptal emphysema. Left upper lobe pulmonary embolism.No evidence of right heart strain. Multiple bilateral pulmonary nodules. Many of which are cavitated. Some previous have resolved and some are new. Septic emboli and atypical infectious or inflammatory etiologies are leading considerations. ECG shows sinus tachycardia.He was given ceftriaxone, Levaquin, IV fluids, pain control. ID has been consulted for antimicrobial management. Review of Systems Complains of fatigue and lower back pain but no acute deficits otherwise 10 point review of systemsnegative, denied recent IV drug use when I discussed with him this afternoon Physical Exam Vitals and Measurements T: 36.8 C (Oral) TMIN: 36.5 C (Oral) TMAX: 36.9 C (Oral) HR: 130 RR: 28 BP: 100/56 SpO2: 96% HT: 175.3 cm WT: 59.1 kg BMI: 19.23 Weight Dosing Weight: 59.1 kg (04/28/23) General Appearance: Sleepy but arousable, oriented when awakened HEENT: Normocephaly. No acute findings Neck: Normal without lymphadenopathy Cardiac: Heart regular rhythm Lungs: Clear Abdomen: Soft, non-tender, non-distended Extremities:Warm without clubbing, cyanosis or edema. Old healed skin lesions Neurological: No deficits Skin: Warm, dry, intact. No rashes Psychiatric: No abnormal behaviors Lab Results 04/29 03:42 WBC: 16.7 H Hgb: 10.5 L Hct: 31.5 L Platelet: 86 L Neutrophil %: 88.2 H Glucose Level: 161 H Sodium Level: 139 Potassium Level: 3.9 BUN: 14.0 Creatinine Lvl (s): 0.72 Imaging Results and Diagnostics Imaging was reviewed from [place] Assessment/Plan Sepsis MRSA bacteremia History of endocarditis History of IV drug use Left upper lobe pulmonary embolism Multiple bilateral pulmonary nodules some which are cavitated and concerning for septic emboli This is a 28 year-old male with PMHx prior endocarditis with septic emboli, prior IVDU with last use over 1 year ago per patient, tobacco use presents to the hospital as a transfer from [place] ED for CP, SOB. History obtained by patient, ED physician, chart review. Patient was admitted a year agofor septic emboli. Treated with outpatient nafcillin for MSSA and completed 6-week course. Over thepast 3 days he has been having significant left-sided back pain, shortness of breath. He denies anyrecent prolonged immobilization. No prior history of blood clots per patient. Endorses a history ofhepatitis. No significant alcohol use. On presentation to the emergency room, patient was tachycardic, hypotensive and tachypneic. CBC revealed cytosis of 25,300. D-dimer was elevated. Transaminase levels mildly elevated.CT angiography shows paraseptal emphysema. Left upper lobe pulmonary embolism.No evidence of right heart strain. Multiple bilateral pulmonary nodules. Many of which are cavitated. Some previous have resolved and some are new. Septic emboli and atypical infectious or inflammatory etiologies are leading considerations. ECG shows sinus tachycardia.He was given ceftriaxone, Levaquin, IV fluids, pain control. ID has been consulted for antimicrobial management. MRSA PCR was positive Flu COVID, RSV was negative Toxicology screen was notable for amphetamines, cannabinoids and opiates Over the past 24 hours, patient has remained afebrile. He continues to have persistent tachycardia and tachypneic at times. Saturating on a 95% on room air today patient's white count has decreased to 60,700 compared to 24,300. Transaminase levels are mildly elevated and lactic is now within normallimits. Blood pressure has been soft since admission Initial blood cultures x 2 sets on 04/28 positive for MRSA per blood PCR. Repeat blood cultures havebeen ordered showing no growth to date. Will obtain echocardiogram to rule vegetations however if repeat blood cultures are positive the patient will need YESSENIA given his history of endocarditis and IVdrug use. Given the concern of septic emboli and cavitary lung nodules in the setting of MRSA bacteremia, thepatient will require full workup with CT scan of the abdomen and pelvis and thorax and CT scan of head to rule out further embolic processes Also the patient will require MRI of the lumbar and thoracic spine given his back pain Obtain HIV, RPR and acute hepatitis panel Adjust antimicrobial therapy to vancomycin and imaging studies as above will be ordered Thank you for this consultation, will follow I was present for Aurora Fox LPN , and personally directed, all components of the patient's complete evaluation and management documented by the scribe today. I have personally examined the patient and reviewed all diagnostic data. I have reviewed all of this documentation by the scribe. It documents the history obtained, examination performed, diagnostic testing results compiled by him/her,and discharge information. Problem List/Past Medical History Ongoing Bacteremia Endocarditis of tricuspid valve IV drug abuse Historical No qualifying data Procedure/Surgical History Thoracentesis: 05/05/22 Transesophageal echocardiogram: 04/20/22 Echocardiogram: 04/14/22 CT angiography of chest with contrast: 04/13/22 CT angiography of chest with contrast: 12/06/19 Medications Inpatient acetaminophen, 650 mg= 2 tab(s), Oral, q6hWA, PRN Dextrose 50% IV Push, 12.5 gram(s)= 25 mL, IV Push, AsDirected, PRN Heparin for IV 25,000 unit(s) [18 unit(s)/kg/hr] + Dextrose 5% Premix Diluent 250 mL Heparin HBW Bolus 5000 units/mL, 4137 unit(s)= 0.83 mL, 70 unit(s)/kg, IV Push, q6h, PRN Heparin HBW Bolus 5000 units/mL, 2364 unit(s)= 0.47 mL, 40 unit(s)/kg, IV Push, q6h, PRN melatonin, 3 mg= 1 tab(s), Oral, qHS, PRN melatonin, 3 mg= 1 tab(s), Oral, qHS, PRN vancomycin, 750 mg= 250 mL, IV Piggyback, q8h Vancomycin - TROUGH reminder, 1 EA, Miscellaneous, q12hr Zofran, 4 mg= 2 mL, IV Push, q4h, PRN Zofran ODT, 4 mg= 1 tab(s), Oral, q6h, PRN Home Tylenol 325 mg oral capsule, 650 mg, Oral, q4h, PRN Allergies NKA Social History Smoking Status - 12/25/2015 Current every day smoker Alcohol Use: Never., 06/16/2022 Nutrition/Health Caffeine intake amount: 1 serving daily., 06/16/2022 Substance Abuse Use: Past., 06/16/2022 Use: Current. Type: Heroin. Frequency: 1-2 times per week. Previous treatment: None. Started at age: 20 Years. IV drug use; Yes. Has drug use interfered with your work or home life? No. Ready to change: Yes. Concerns about substance abuse in household: No., 12/06/2019 Tobacco Tobacco Use: 10 or more cigarettes (1/2 pack or more)/day in last 30 days., 02/18/2019 Family History Family history is unknown Immunizations No qualifying data available. Digitally Signed by Aurora Fox Scribe on 04/29/2023 12:25 PM Digitally Signed by TANYA WESTFALL BA, MD on 04/29/2023 03:25 PM [id number] History and physical note Date of Service 04/28/23 Chief Complaint Back pain, shortness of breath History of Present Illness 28-year-old male with PMHx prior endocarditis with septic emboli, prior IVDU with last use over 1 year ago per patient, tobacco use presents to the hospital as a transfer from [place] ED for CP, SOB. History obtained by patient, ED physician, chart review. Patient was admitted a year ago for septic emboli. Treated with outpatient nafcillin for MSSA and completed 6-week course. Over the past 3 days he has been having significant left-sided back pain, shortness of breath. He denies any recent prolonged immobilization. No prior history of blood clots per patient. Endorses a history of hepatitis. No significant alcohol use. Patient has had tachycardia at 136, BP low at 92/58 and as low as 81/49. Currently 91/56. Tachycardic at 22. CBC demonstrates leukocytosis of 24.3. Hemoglobin 13.2. D-dimer was elevated 2831. CMP with sodium 132, glucose 126. AST 43, ALT 74, alk phos 176. This is new since 05/04/2022. Toxicology screen is positive for opiates, cannabinoids, amphetamines. Flu COVID RSV negative. CT angiography shows paraseptal emphysema. Left upper lobe pulmonary embolism. No evidence of rightheart strain. Multiple bilateral pulmonary nodules. Many of which are cavitated. Some previous haveresolved and some are new. Septic emboli and atypical infectious or inflammatory etiologies are leading considerations. ECG shows sinus tachycardia. He was given ceftriaxone, Levaquin, IV fluids, pain control. Review of Systems Pertinent review of systems are included in the HPI. All other systems were reviewed and are negative for acute changes from the patient's baseline. Physical Exam Vitals and Measurements T: 36.5 C (Oral) HR: 126(Monitored) RR: 22 BP: 91/56 SpO2: 99% HT: 175.3 cm WT: 59.1 kg BMI: 19.23 Weight Dosing Weight: 59.1 kg (04/28/23) GA: Alert and oriented x3, mild painful distress. Abd: Not distended HEENT: NCAT, sclera anicteric, oral mucosa moist Pulmonary: Mildly tachypneic. No focal crackles. MSK: No gross deformities Cardiovascular: Notably tachycardic. Skin: Warm and dry Neuro: Spontaneous movement of all extremities, cranial nerves II through XII grossly normal Psychiatric: Thought content, associations, attention are all normal. Lab Results WBC: 24.3 10^3/mcL High (04/28/23 07:16:00) RBC: 4.88 10^6/mcL (04/28/23 07:16:00) Hgb: 13.2 G/dL Low (04/28/23 07:16:00) Hct: 39 % Low (04/28/23 07:16:00) MCV: 79.9 fL Low (04/28/23 07:16:00) MCH: 27 pg (04/28/23 07:16:00) MCHC: 33.8 G/dL (04/28/23 07:16:00) RDW: 14.1 % (04/28/23 07:16:00) Platelet: 130 10^3/mcL (04/28/23 07:16:00) MPV: 8.7 fL (04/28/23 07:16:00) Monocyte Distribution Width: 33.19 High (04/28/23 07:16:00) Neutrophil %, Manual: 83 % High (04/28/23 07:16:00) Lymphocyte %, Manual: 5 % Low (04/28/23 07:16:00) Monocyte %, Manual: 0 % Low (04/28/23 07:16:00) Eosinophil %, Manual: 0 % (04/28/23 07:16:00) Basophil %, Manual: 0 % (04/28/23 07:16:00) Bands: 12 % High (04/28/23 07:16:00) Nucleated RBC: 0 /100 WBC (04/28/23 07:16:00) Neutrophil, Abs Manual: 20.2 10^3/mcL High (04/28/23 07:16:00) Lymphocyte, Abs Manual: 1.2 10^3/mcL (04/28/23 07:16:00) Monocyte, Abs Manual: 0 10^3/mcL Low (04/28/23 07:16:00) Eosinophil, Abs Manual: 0 10^3/mcL (04/28/23 07:16:00) Basophil, Abs Manual: 0 10^3/mcL (04/28/23 07:16:00) Platelet Estimate: Slight Decreased (04/28/23 07:16:00) Echinocytes: 1+ (04/28/23 07:16:00) Vacuolated Neutrophils: 1+ (04/28/23 07:16:00) Heparin dose (APTT): Unknown (04/28/23 15:54:00) APTT: 44.7 seconds High (04/28/23 15:54:00) Protime: 15.1 seconds High (04/28/23 09:46:00) PT International Ratio: 1.3 (04/28/23 09:46:00) D-Dimer: 2831 ng/mL D-DU High (04/28/23 07:16:00) Glucose Level: 126 mg/dL High (04/28/23 07:16:00) Sodium Level: 132 mmol/L Low (04/28/23 07:16:00) Potassium Level: 4.1 mmol/L (04/28/23 07:16:00) Chloride: 96 mmol/L Low (04/28/23 07:16:00) CO2: 25 mmol/L (04/28/23 07:16:00) Electrolyte Balance: 11 mEq/L (04/28/23 07:16:00) BUN: 20 mg/dL High (04/28/23 07:16:00) Creatinine Lvl (s): 1.15 mg/dL (04/28/23 07:16:00) BUN/Creatinine Ratio: 17 ratio (04/28/23 07:16:00) Calcium Lvl: 8.9 mg/dL (04/28/23 07:16:00) Total Protein: 7.7 G/dL (04/28/23 07:16:00) Albumin Level: 2.6 G/dL Low (04/28/23 07:16:00) Globulin: 5.1 G/dL (04/28/23 07:16:00) A/G Ratio: 0.5 ratio Low (04/28/23 07:16:00) Bili Total: 0.6 mg/dL (04/28/23 07:16:00) Alk Phos: 176 U/L High (04/28/23 07:16:00) AST/SGOT: 43 U/L High (04/28/23 07:16:00) ALT/SGPT: 74 U/L High (04/28/23 07:16:00) GFR Non-: 76 ml/min/1.73sqm (04/28/23 07:16:00) GFR : 92 ml/min/1.73sqm (04/28/23 07:16:00) Troponin I High Sensitivity: <4.0 (04/28/23 07:16:00) Amphetamine (u): Positive DSX Abnormal (04/28/23 07:16:00) Barbiturate (u): Negative EXL (04/28/23 07:16:00) Cannabinoid (u): Positive DSX Abnormal (04/28/23 07:16:00) Cocaine (u): Negative EXL (04/28/23 07:16:00) Benzodiazepine (u): Negative EXL (04/28/23 07:16:00) Methadone (u): Negative EXL (04/28/23 07:16:00) Opiate (u): Positive DSX Abnormal (04/28/23 07:16:00) PCP (u): Negative EXL (04/28/23 07:16:00) Urine Drugs screened: See Below (04/28/23 07:16:00) COVID-19 Result: Negative. (04/28/23 07:16:00) COVID-19 Int: COVID-19 Int (04/28/23 07:16:00) Flu A PCR (AO): Negative.1 (04/28/23 07:16:00) Flu B PCR (AO): Negative.1 (04/28/23 07:16:00) RSV PCR (AO): Negative.1 (04/28/23 07:16:00) Assessment/Plan Bilateral cavitary nodules, septic emboli. Patient with history of previous MSSA infective endocarditis completing a course of outpatient antibiotics; he denied any IVDU but toxicology screen is positive for opiates, amphetamines, cannabinoids.. Patient with leukocytosis at 24.3. Tachycardia, tachypnea, hypotension as low as 81/49. CTA showing resolution of some old cavitary nodules and appearance of some new. Concerning for severe sepsis in the setting of suspected bacterial endocarditis. He received ceftriaxone and fluoroquinolones in [place]. His BP is soft but currently stable. If we areable to maintain his systolic greater than 100, may consider additional pain control with opioids, o therwise will give Tylenol. Considering his ongoing tachycardia and low blood pressure, will monitor on stepdown. Escalate antibiotics to Vanc, Meropenem 1 L NS bolus, observe response Check lactic acid Consult ID Follow-up blood cultures. Left upper lobe pulmonary embolism. He was placed on heparin by weight at [place]. Continue heparin by weight. Transaminitis. AST 43, ALT 74, alk phos 176. The patient reports that he does have a history of hepatitis but does not recall the type. Appreciate ID input. Polysubstance use. Encourage cessation Hyponatremia. Mild. Sodium 132. NS for fluids, will recheck. Hyperglycemia. Glucose 126. Suspect acute distress. Monitor. DVT prophylaxis: On HBW Note dictated using voice recognition software and may contain typographical errors. Problem List/Past Medical History Ongoing Bacteremia Endocarditis of tricuspid valve IV drug abuse Historical No qualifying data Procedure/Surgical History Thoracentesis: 05/05/22 Transesophageal echocardiogram: 04/20/22 Echocardiogram: 04/14/22 CT angiography of chest with contrast: 04/13/22 CT angiography of chest with contrast: 12/06/19 Medications Home Medications (1) Active Tylenol 325 mg oral capsule 650 mg, PRN, Oral, q4h Allergies NKA Social History Smoking Status - 12/25/2015 Current every day smoker Alcohol Use: Never., 06/16/2022 Nutrition/Health Caffeine intake amount: 1 serving daily., 06/16/2022 Substance Abuse Use: Past., 06/16/2022 Use: Current. Type: Heroin. Frequency: 1-2 times per week. Previous treatment: None. Started at age: 20 Years. IV drug use; Yes. Has drug use interfered with your work or home life? No. Ready to change: Yes. Concerns about substance abuse in household: No., 12/06/2019 Tobacco Tobacco Use: 10 or more cigarettes (1/2 pack or more)/day in last 30 days., 02/18/2019 Family History Family history is unknown Immunizations No qualifying data available. Code Status Code Status - Ordered -- 04/28/23 23:17:00 EST, Full Code, Constant Order Digitally Signed by YOSSI MCMULLEN MD on 04/28/2023 11:35 PM [id number] Evaluation + Plan noteExtracted from: Title:History and Physical Author:BIRDIE MCMULLEN MD Date:04/28/23 Bilateral cavitary nodules, septic emboli. Patient with history of previous MSSA infective endocarditis completing a course of outpatient antibiotics; he denied any IVDU but toxicology screen is positive for opiates, amphetamines, cannabinoids.. Patient with leukocytosis at 24.3. Tachycardia, tachypnea, hypotension as low as 81/49. CTA showing resolution of some old cavitary nodules and appearance of some new. Concerning for severe sepsis in the setting of suspected bacterial endocarditis. He received ceftriaxone and fluoroquinolones in [place]. His BP is soft but currently stable. If we are able to maintain his systolic greater than 100, may consider additional pain control with opioids, otherwise will give Tylenol. Considering his ongoing tachycardia and low blood pressure, will monitor on stepdown. Escalate antibiotics to Vanc, Meropenem 1 L NS bolus, observe response Check lactic acid Consult ID Follow-up blood cultures. Left upper lobe pulmonary embolism. He was placed on heparin by weight at [place]. Continue heparin by weight. Transaminitis. AST 43, ALT 74, alk phos 176. The patient reports that he does have a history of hepatitis but does not recall the type. Appreciate ID input. Polysubstance use. Encourage cessation Hyponatremia. Mild. Sodium 132. NS for fluids, will recheck. Hyperglycemia. Glucose 126. Suspect acute distress. Monitor. DVT prophylaxis: On HBW Note dictated using voice recognition software and may contain typographical errors. Diagnostic Tests Pending * Complete Blood Count 05/08/23 * Basic Metabolic Panel 05/08/23 [facility] 01-11-2024 Note ORIGINAL EXAMINATION: CTA OF THE CHEST 04/28/2023 9:22 am TECHNIQUE: CTA of the chest was performed after the administration of intravenous contrast. Multiplanar reformatted images are provided for review. MIP images are provided for review. Automated exposure control, iterative reconstruction, and/or weight based adjustment of the mA/kV was utilized to reduce the radiation dose to as low as reasonably achievable. COMPARISON: April 13, 2022 HISTORY: ORDERING SYSTEM PROVIDED HISTORY: Reason for Exam: chest pain; suspect PE FINDINGS: Paraseptal emphysema is evident especially at the apices, right greater than left. Multiple bilateral pulmonary nodules are identified and these are more numerous than on the prior exam. Multiple cavitary lesions are also identified. Some of these have resolved since the prior exam and some are new. Focal consolidation previously identified within the lingula laterally is no longer visible. No free pleural fluid is visible. Multiple calcified right hilar and subcarinal lymph nodes are present, similar in appearance to the previous study. Diffuse anasarca is also evident. This exam is positive for a single small segmental pulmonary embolism at the left upper lobe. No other pulmonary artery defects are identified. There are no indicators of right heart strain. No additional contributory abnormality seen. IMPRESSION: 1. Paraseptal emphysema, apical predominant. 2. Single segmental left upper lobe pulmonary embolism. No evidence for right heart strain. 3. Multiple bilateral pulmonary nodules, many of which are cavitated. Some previous nodules have resolved and some are new. Septic emboli and atypical infectious or inflammatory etiologies are the leading considerations. 4. Diffuse anasarca. Interpreted by: Mahsa Cole MD Preliminary Report By: Mahsa Cole MD Electronically signed By Mahsa Cole MD Dictated Date: 04/28/2023 9:27:28 AM Prelim Date: 04/28/2023 9:33:40 AM Sign Date: 04/28/2023 9:33:40 AM Ordering Provider: JONY [facility]01[facility]24 Note ORIGINAL EXAMINATION: TWO XRAY VIEWS OF THE CHEST 04/28/2023 8:24 am COMPARISON: Prior chest x-ray dated 05/08/2022. Prior CTA chest dated 04/13/2022. HISTORY: ORDERING SYSTEM PROVIDED HISTORY: Reason for Exam: SOB/Cough/Fever FINDINGS: The cardiomediastinal silhouette is normal in appearance. There are new diffuse patchy nodular opacities seen throughout the lungs bilaterally. A stable cavitary lesion is seen of the right upper lobe. Prior CTA chest showed multiple cavitary nodules suggestive of septic emboli or inflammatory process. There is no pleural effusion or pneumothorax. IMPRESSION: - New diffuse patchy nodular opacities throughout the lungs bilaterally. - Stable cavitary lesion of the right upper lobe. Interpreted by: Sharif Nelson MD Preliminary Report By: Sharif Nelson MD Electronically signed By Sharif Nelson MD Dictated Date: 04/28/2023 8:26:16 AM Prelim Date: 04/28/2023 8:28:33 AM Sign Date: 04/28/2023 8:28:33 AM [facility]ing [facility] SARS-CoV-2 (COVID-19) RNA BRAD+probe Ql (Nph)Negative *NA* (04/28/23 7:16 AM)AO Auto Urine [id number] NoteSinus tachycardia Ventricular premature complex Probable left atrial enlargement ST elev, probable normal early repol pattern Electronic Signature: JONY STEWART MD 04/28/2023 07:14:25[facility] 09-29-2023 Hospital Discharge instructions Patient Education 01/14/2023 02:31:42 Sty Sty (or Stye) A sty is an infection of the oil gland of the eyelid. It may develop into a small pocket of pus (anabscess). This can cause pain, redness, and swelling. In early stages, a sty is treated with antibiotic cream, eye drops, or a small towel soaked in warm water (a warm compress). More severe cases may need to be opened and drained by a healthcare provider. Home care Eye drops or ointment are usually prescribed to treat the infection. Use these as directed. Artificial tears may also be used to lubricate the eye and make it more comfortable. You can buy these over the counter without a prescription. Talk with your healthcare provider before using any ahey-oin-dgcytyt treatment for a sty. Apply a warm, damp towel to the affected eye for at least 5 minutes, 3 to 4 times a day for a week.Warm compresses open the pores and speed the healing. But if the compresses are too hot, they may burn your eyelid. Sometimes the sty will drain with this treatment alone. If this happens, keep using the antibiotic until all the redness and swelling are gone. Wash your hands before and after touching the infected eyelid to avoid spreading the infection. Don t squeeze or try to break open the sty. Follow-up care Follow up with your healthcare provider, or as advised. When to seek medical advice Call your healthcare provider right away if any of these occur: Increase in swelling or redness around the eyelid after 48 to 72 hours Increase in eye pain or the eyelid blisters Increase in warmth the eyelid feels hot Drainage of blood or thick pus from the sty Blister on the eyelid Inability to open the eyelid due to swelling Fever of 100.4 F (38 C) or above, or as directed by your provider Vision changes Headache or stiff neck The sty comes back [phone] [employer]. [address] [place] [address]. All rights reserved. This information is not intended as a substitute for professional medical care. Always follow yourhealthcare professional's instructions. Follow Up Care 01/14/2023 02:20:56 With:[facility] Address: [address] [place] [phone] [facility] (1) When:2-4 days With:Go to emergency room if symptoms worsen Address:Unknown When:2-4 days With:REBA CHIRINOS MD Address: [address] [place] [phone] When:2-4 days [facility] 09-29-2023 Note Discharge Instructions Thank you for allowing [facility] to assist you with your healthcare needs. The following is importantdischarge information regarding your hospital visit. Diagnosis from Today's Visit Eye problem Stye What to Do Next Instructions from Your Care Team Use erythromycin ointment as prescribed. Follow-up with [facility] or neuro psych sales specialist prudence arroyo. Use warm compresses. Return the emergency department if you have worsening symptoms or any other care concern. Follow-up with your primary care provider. No qualifying data available. Post Acute Orders No qualifying data available. You Need to Schedule the Following Appointments Follow Up with [facility] When Within 2-4 days Where: [address] [place] [phone]- [facility] (1) Follow Up with Go to emergency room if symptoms worsen When Within 2-4 days Follow Up with REBA CHIRINOS MD When Within 2-4 days Where: [address] [place] [phone] Allergies NKA Medications Please ask your primary doctor or pharmacist before taking any other medication not listed, including over the counter drugs, herbal medications, vitamins and or supplements as they may interact withyour home medications. What How Much When Instructions Last Dose New erythromycin ophthalmic (erythromycin 0.5% ophthalmicointment) 1 application Left eye Four (4) times a day Duration: 5 Days 1 kendrick = 0.5 inch Printed Prescription Unchanged acetaminophen (Tylenol 325 mg oral capsule) 650 Milligram by mouth Every 4 hours as needed for Pain, scale 1-3 Please take this list to your next doctor s visit. Bring all medications you take, including over the counter medications, herbals and other supplements with you to your doctor s visit. Patients and families are reminded to discard old lists and to update any records with all medication providers or retail pharmacies. Medication Leaflets erythromycin ophthalmic (e KEY LINK sin off THAL nancy) Eyemycin What is the most important information I should know about erythromycin ophthalmic? Follow all directions on your medicine label and package. Tell each of your healthcare providers about all your medical conditions, allergies, and all medicines you use. What is erythromycin ophthalmic? Erythromycin is an antibiotic that fights bacteria. Erythromycin ophthalmic (for the eyes) is used to treat bacterial infections of the eyes. Erythromycin ophthalmic may also be used for purposes not listed in this medication guide. What should I discuss with my healthcare provider before using erythromycin ophthalmic? You should not use this medicine if you are allergic to erythromycin. a viral or fungal infection in your eye. It is not known whether this medicine will harm an unborn baby. Tell your doctor if you are or plan to become . It may not be safe to breast-feed while using this medicine. Ask your doctor about any risk. How should I use erythromycin ophthalmic? Follow all directions on your prescription label and read all medication guides or instruction sheets. Use the medicine exactly as directed. Wash your hands before using eye medication. To apply the ointment: Tilt your head back slightly and pull down your lower eyelid to create a small pocket. Hold the ointment tube with the tip pointing toward this pocket. Look up and away from the tip. Squeeze out a ribbon of ointment into the lower eyelid pocket without touching the tip of the tube to your eye. Blink your eye gently and then keep it closed for 1 or 2 minutes. Use a tissue to wipe excess ointment from your eyelashes. After opening your eyes, you may have blurred vision for a short time. Avoid driving or doing anything that requires you to be able to see clearly. Do not touch the tip of the ointment tube or place it directly on your eye. A contaminated tube tipcan infect your eye, which could lead to serious vision problems. Use this medicine for the full prescribed length of time, even if your symptoms quickly improve. Skipping doses can increase your risk of infection that is resistant to medication. Erythromycin ophthalmic will not treat a viral or fungal eye infection. Store at room temperature away from moisture and heat. Keep the tube tightly closed when not in use. What happens if I miss a dose? Use the medicine as soon as you can, but skip the missed dose if it is almost time for your next dose. Do not use two doses at one time. What happens if I overdose? Seek emergency medical attention or call the Poison Help line at . What should I avoid while using erythromycin ophthalmic? This medicine may cause blurred vision and may impair your reactions. Avoid driving or hazardous activity until you know how this medicine will affect you. Do not use other eye medications unless your doctor tells you to. What are the possible side effects of erythromycin ophthalmic? Get emergency medical help if you have signs of an allergic reaction: hives; difficult breathing; swelling of your face, lips, tongue, or throat. Stop using erythromycin ophthalmic and call your doctor at once if you have: severe burning, stinging, or irritation after using this medicine; or signs of eye infection--pain, swelling, severe discomfort, crusting or drainage, eyes more sensitive to light. Common side effects may include: eye redness; or mild eye irritation. This is not a complete list of side effects and others may occur. Call your doctor for medical advice about side effects. You may report side effects to FDA at 6-492-RCB-3745. What other drugs will affect erythromycin ophthalmic? Medicine used in the eyes is not likely to be affected by other drugs you use. But many drugs can interact with each other. Tell each of your healthcare providers about all medicines you use, including prescription and tnjg-ozt-gpbdusi medicines, vitamins, and herbal products. Where can I get more information? Your pharmacist can provide more information about erythromycin ophthalmic. Remember, keep this and all other medicines out of the reach of children, never share your medicines with others, and use this medication only for the indication prescribed. Every effort has been made to ensure that the information provided by [employer]. ('[employer]') is accurate, up-to-date, and complete, but no guarantee is made to that effect. Drug information contained herein may be time sensitive. [employer] information has been compiled for use by healthcare practitioners and consumers in the [place] and therefore [employer] does not warrant that uses outside of the [place] are appropriate, unless specifically indicated otherwise. [employer]'s drug information does not endorse drugs, diagnose patients or recommend therapy. [employer] drug information isan informational resource designed to assist licensed healthcare practitioners in caring for their p atients and/or to serve consumers viewing this service as a supplement to, and not a substitute for, the expertise, skill, knowledge and judgment of healthcare practitioners. The absence of a warningfor a given drug or drug combination in no way should be construed to indicate that the drug or drug combination is safe, effective or appropriate for any given patient. [employer] does not assume any responsibility for any aspect of healthcare administered with the aid of information [employer] provides. The information contained herein is not intended to cover all possible uses, directions, precautions, warnings, drug interactions, allergic reactions, or adverse effects. If you have questions about the drugs you are taking, check with your doctor, nurse or pharmacist. Copyright 6196-5914 [employer]. Version: 7.01. Revision Date: 12/14/2017. Education Materials Sty (or Stye) A sty is an infection of the oil gland of the eyelid. It may develop into a small pocket of pus (anabscess). This can cause pain, redness, and swelling. In early stages, a sty is treated with antibiotic cream, eye drops, or a small towel soaked in warm water (a warm compress). More severe cases may need to be opened and drained by a healthcare provider. Home care Eye drops or ointment are usually prescribed to treat the infection. Use these as directed. Artificial tears may also be used to lubricate the eye and make it more comfortable. You can buy these over the counter without a prescription. Talk with your healthcare provider before using any vduz-hgs-plzvxik treatment for a sty. Apply a warm, damp towel to the affected eye for at least 5 minutes, 3 to 4 times a day for a week.Warm compresses open the pores and speed the healing. But if the compresses are too hot, they may burn your eyelid. Sometimes the sty will drain with this treatment alone. If this happens, keep using the antibiotic until all the redness and swelling are gone. Wash your hands before and after touching the infected eyelid to avoid spreading the infection. Don t squeeze or try to break open the sty. Follow-up care Follow up with your healthcare provider, or as advised. When to seek medical advice Call your healthcare provider right away if any of these occur: Increase in swelling or redness around the eyelid after 48 to 72 hours Increase in eye pain or the eyelid blisters Increase in warmth the eyelid feels hot Drainage of blood or thick pus from the sty Blister on the eyelid Inability to open the eyelid due to swelling Fever of 100.4 F (38 C) or above, or as directed by your provider Vision changes Headache or stiff neck The sty comes back [phone] [employer]. [address] [place] [address]. All rights reserved. This information is not intended as a substitute for professional medical care. Always follow yourhealthcare professional's instructions. Additional Information VACCINATE! IT SAVES LIVES! Members of the community who have not yet received the COVID-19 vaccine and would like to receive it can visit one of [facility] vaccine clinics. There are many vaccine clinic locations within the [facility]. For locations and available times, please visit [email or web address]/. It is important to note that some COVID mobile vaccine clinics are held outdoors and may be canceled in rainy or stormy conditions. To learn more about pediatric vaccinations (ages 5-11), we invite you to visit the [facility] webpage. https://www.[email or web address]/pages/9290-Ziywf-Rjrnczgyatl-Dlbnkckrrl-Cxvvc-Oot stions.htmlTo learn more about the COVID-19 vaccine, we invite you to visit the CDC website for a list of frequently asked questions. https://www.cdc.gov/coronavirus/2019-ncov/vaccines/faq.html [facility] Patient Portal Access Instructions: Stay connected with your healthcare team and access your personal medical information anytime with the [facility] Patient Portal. If you would like a full copy of your medical records please contact the [facility] Medical Records Department Tuesday through Tuesday between 8a.m. and 4:30p.m. Please follow the directions below to access the portal: 1.Access the email account you provided upon registration to the [facility].2.Look for an invitation email from [facility].3.Open the email and access the invitation link: Accept Invitation to [facility]4.Fill in the required sandoval to create your account. Sign into [email or web address] with your username and password that you created in the above steps to stay up to date. You can then view a summary of results, a summary of your visits, and the ability to download your summaries to your computer or send the information securely to a physician. Remember that your healthcare information is confidential, so carefully consider who you will allow to register on the [facility] Patient Portal for access to your information. You can also access the [facility] Patient Portal on the [employer]. Simply click on Health Records under [employer] and then click on the [facility] logo. HOW TO SAFELY DISPOSE OF PRESCRIPTION MEDICATIONS Please use one of the following methods to safely dispose of your unused medications. 1.Use a drug disposal kit: the drug disposal pouch allows you to safely discard your old and unuseddrugs. Ask your nurse to give you one when you are discharged.2.Visit a local take-back location: Many local pharmacies and police departments have programs that collect old and unwanted prescriptiondrugs. Call your local pharmacy or go to http://Givit.e(ye)BRAIN/8K8Km8t to find one close to you.3.Make use of household items: Use cat litter or old coffee grounds to dispose medications if other options arenot available. Mix your drugs with these household products, seal them in an airtight container andthrow it into the garbage. Call [facility]: [phone] to be sure your drugs can be disposed of in this way. Some medicines may require a different approach.4.Never flush your medications down the toilet. IF YOU HAVE BEEN PRESCRIBED AN OPIOIDS FOR PAIN If you have been prescribed an opioid (such as hydrocodone, oxycodone or morphine), it is critical to understand the possible side effects and risks of opioid pain medications. Even when taken as directed, opioids can have several side effects including: Tolerance, meaning you might need to take more of a medication for the same pain relief. Nausea, vomiting and/or constipation. Sleepiness, dizziness, dry mouth, confusion, depression or itching. Physical dependence, meaning you have withdrawal symptoms when a medication is stopped ? this can develop within a few days. KNOW YOUR RESPONSIBILITIES It is important to know exactly how much and how often to take the opioid pain medications you are prescribed. Never take opioids in higher amounts or more often than prescribed. Do not combine opioids with alcohol or other drugs that cause drowsiness, such as benzodiazepines, also known as benzos,including diazepam and alprazolam, muscle relaxants or sleep aids. Never sell or share prescriptionopioids. This is illegal. Store opioids in a secure place and out of reach of others (including children, family, friends and visitors). The last page(s) of this document has been signed and retained as a CHART COPY Signatures Patient Education Materials Sty Medication Leaflets erythromycin ophthalmic My discharge plan and instructions have been reviewed and explained to me and I,SAM JIMENEZ understand my current condition and have read and understand these discharge instructions. I have received a written copy of the plan/instructions. If I have questions, I am aware that I should contact my doctor. Patient/Leave Specialist Signature: Date/Time: Relationship to Patient: Witness Name/Signature: Date/Time: [facility]01-23-2023 Discharge summary Date of Service 05/10/2022 Discharge Diagnosis 1. Moderate left pleural effusion status post thoracocentesis where 350 mL were removed 2. Atypical chest pain. 3. Subacute bacterial endocarditis with MSSA bacteremia. 4. Chronic anemia. 5. Tobacco use. 6. History of IV drug abuse. 7. Hep C. 1. Pleural effusion (J90 - ICD-10-CM) 2. Chest pain (R07.9 - ICD-10-CM) Pleural effusion, not elsewhere classified (J90 - ICD-10-CM) Acute and subacute infective endocarditis (I33.0 - ICD-10-CM) Septic arterial embolism (I76 - ICD-10-CM) Bacteremia (R78.81 - ICD-10-CM) Anemia, unspecified (D64.9 - ICD-10-CM) Unspecified viral hepatitis C without hepatic coma (B19.20 - ICD-10-CM) Tobacco use (Z72.0 - ICD-10-CM) Methicillin susceptible Staphylococcus aureus infection, unspecified site (A49.01 - ICD-10-CM) Abnormal diagnostic test ([id number] - PNED) Rib/trunk pain-swelling ([id number] - PNED) Additional Orders: Other status: BMP,05/10/22 5:01:00 EST, Next AM Draw (one day only), Blood, Once, Stop date 05/10/22 4:00:00 EST(Complete) Ordered: Tylenol 325 mg oral capsule,Dose : 650 mg =, Oral, q4h, PRN TEMP greater than 38.6 degreesCelsius, 0 Refill(s) Ordered: Tylenol 325 mg oral capsule,Dose : 650 mg =, Oral, q4h, PRN Pain, scale 1-3, 0 Refill(s) Discontinued: ceFAZolin 2 g/50 hC-zyo-snosrrv dextrose intravenous solution,Dose : 2 gram(s) =, Intramuscular, TID Ordered: nafcillin 10 g injection,See Instructions, 12gm and 500 mL normal saline continuous infusion, treatment continues until 05/30/2022, # 1 EA, 0 Refill(s), 05/30/22 8:34:00 EST, 55 Hospital Course 27-year-old male with multiple medical problems including microcytic anemia, history of IV drug abuse, smoking, HCV, recent discharged from [facility] on 04/21/2022 after he was treated for sepsis and subacute bacterial endocarditis and MSSA bacteremia, patient was discharged with 6 weeks of IV nafcillin to nursing facility, patient returns to the hospital for chest pain, was found to have left pleural effusion, and thoracocentesis was done, the fluid analysis was sent for microbiology and the cultures remains negative so far. Infectious disease team evaluated the patient during the hospital stay, they recommended to continue with IV antibiotics which is currently in the form of continuous infusion, patient was feeling better, repeated chest x-ray is showing decreased in the amount of the left pleural effusion, and patient's blood test has been stable. Infectious disease team gave us recommendations regarding the antibiotics which is to continue withnafcillin continues to infusion for total of 6 weeks. Patient was examined and evaluated by me today he was awake alert and, denying any chest pain or shortness of breath, no abdominal pain nausea or vomiting, no headache lightness or dizziness, patientwill be discharged to nursing facility today, patient understood his discharge plan, all his questions were answered, he declined my offer to call his mother, stating that he will call her and updateher about the discharge. Allergies NKA Procedures Left thoracocentesis Consults Consult to Physician (Physician Consult) - Ordered -- 05/06/22 8:21:00 EST, DAVID GUERRA, TANYA ZHOU MD, Routine, Left pleural effusion, recent endocarditis Imaging Results and Diagnostics Please see Adele Objective Vitals and Measurements T: 36.6 C (Oral) TMIN: 36.6 C (Oral) TMAX: 37.0 C (Oral) HR: 80 RR: 16 BP: 93/61 SpO2: 100% Weight Dosing Weight: 55 kg (05/05/22) Dosing Weight: 55 kg (05/04/22) Head: atraumatic normocephalic Neck: supple no JVD Lungs: clear to auscultation bilaterally, no wheezes no accessory muscle use. Heart: S1-S2 regular rate and rhythm, no murmurs Abdomen: soft nontender nondistended, bowel sounds are present all 4 quadrants Lower extremities: no cyanosis, no chronic skin changes, pulse palpable +1 bilaterally, no edema Skin: showed no rash Neurological: patient is awake alert and oriented 3, no focal neurological deficit Pending Labs and Studies CBC, BMP, weekly for long-term antibiotics Code Status Code Status - Ordered -- 05/04/22 23:44:00 EST, Full Code, Constant Order Admission Date 05/04/2022 Discharge Date 05/10/2022 Medications New Prescription acetaminophen (Tylenol 325 mg oral capsule)650 Milligram by mouth every 4 hours as needed TEMP greater than 38.6 degrees Celsius. acetaminophen (Tylenol 325 mg oral capsule)650 Milligram by mouth every 4 hours as needed Pain, scale 1-3. Changed nafcillin (nafcillin 10 g injection)12gm and 500 mL normal saline continuous infusion, treatment continues until 05/30/2022. Refills: 0. Unchanged metoprolol (Lopressor 25mg--USE metoprolol tartrate 25 mg oral tablet)1 tab(s) by mouth daily at bedtime. Discontinued ceFAZolin (ceFAZolin 2 g/50 bN-bxy-qllvpzp dextrose intravenous solution)2 gram(s) Intramuscular three (3) times a day. Follow Up Follow Up with [facility], When Where: Follow Up with TANYA WESTFALL BA, MD, Infectious Disease, Infectious Disease Group When Only if needed Where: [facility] [place] [address] [place] [address]- Follow Up with REBA CHIRINOS MD When Why: Call for a follow up appointment within 1 week Where: [address] [place] [address]- [phone] Follow Up Appointments No qualifying data available. Follow Up Labs/Studies Discharge Labs Transfer of Care Labwork - Ordered -- cbc,cmp, intermediate designer Abx, follow-up within: 1 week, Results Notify to: TANYA WESTFALL BA, MD, repeat every Tuesday, 05/10/22 11:17:00 EST Discharge Studies No Follow-up Studies Discharge Diet Transfer of Care Diet - Ordered -- Type of Diet: Regular Diet, 05/10/22 11:17:00 EST Discharge Activity Transfer of Care Activity - Ordered -- Activity As Tolerated, 05/10/22 11:17:00 EST Condition on Discharge Stable Readmission Risk/Palliative Score No qualifying data available. Discharge Disposition Rehab Time Spent 32 minutes Digitally Signed by LUDIVINA ANDRADE MD on 05/10/2022 02:27 PM [id number] Discharge Instructions Thank you for allowing [facility] to assist you with your healthcare needs. The following is importantdischarge information regarding your hospital visit. Your Care Team REBA CHIRINOS MD Your Diagnosis Pleural effusion Chest pain Abnormal diagnostic test Rib/trunk pain-swelling What to do next Follow Up Appointments Follow Up with [facility], When Where: Follow Up with TANYA WESTFALL BA, MD, Infectious Disease, Infectious Disease Group When Only if needed Where: [facility] [place] [address] [place] [address]- Follow Up with REBA CHIRINOS MD When Why: Call for a follow up appointment within 1 week Where: [address] [place] [address]- [phone] The Following Activity and Diet Have Been Ordered for You Transfer of Care Activity - Ordered -- Activity As Tolerated, 05/10/22 11:17:00 EST Transfer of Care Diet - Ordered -- Type of Diet: Regular Diet, 05/10/22 11:17:00 EST The Following Equipment Has Been Ordered for You Discharge Home Equipment Transfer of Care IV/PICC - Ordered -- Routine care per facility guidelines., 05/10/22 11:17:31 EST The Following Treatments Have Been Ordered for You Discharge Labs Transfer of Care Labwork - Ordered -- cbc,cmp, intermediate designer Abx, follow-up within: 1 week, Results Notify to: TANYA WESTFALL BA, MD, repeat every Tuesday, 05/10/22 11:17:00 EST Discharge Radiology No qualifying data available. Other Therapies No qualifying data available. Post Acute Orders Transfer of Care Code Status - Ordered -- Full Code, Constant Order Transfer of Care IV/PICC - Ordered -- Routine care per facility guidelines., 05/10/22 11:17:31 EST Transfer of Care Labwork - Ordered -- cbc,cmp, intermediate designer Abx, follow-up within: 1 week, Results Notify to: TANYA WESTFALL BA, MD, repeat every Tuesday, 05/10/22 11:17:00 EST Transfer of Care Orders Electronically Signed By - Ordered -- 05/10/22 11:17:00 EST, LUDIVINA ANDRADE MD Transfer of Care Prognosis - Ordered -- Fair, Patient Aware: Yes Transfer of Care Rehab Potential - Ordered -- Rehab potential fair, 05/10/22 11:17:31 EST Someone Will Contact You Regarding These Home Health Referrals No home referrals have been ordered for you. No one will call you. Allergies NKA Medications Please ask your primary doctor or pharmacist before taking any other medication not listed, including over the counter drugs, herbal medications, vitamins and or supplements as they may interact withyour home medications. What How Much When Instructions Last Dose New acetaminophen (Tylenol 325 mg oral capsule) 650 Milligram by mouth Every 4 hours as needed for TEMP greater than 38.6 degrees Celsius New acetaminophen (Tylenol 325 mg oral capsule) 650 Milligram by mouth Every 4 hours as needed for Pain, scale 1-3 Changed nafcillin (nafcillin 10 g injection) See instructions 12gm and 500 mL normal saline continuous infusion, treatment continues until 2022 Printed Prescription Unchanged metoprolol (Lopressor 25mg--USE metoprolol tartrate 25 mg oral tablet) 1 tab(s) by mouth Daily at bedtime What How Much When Comments Stop Taking ceFAZolin (ceFAZolin 2 g/ 50 hW-clf-nmheubz dextrose intravenous solution) 2 gram(s) Intramuscular Three (3) times a day Please take this list to your next doctor s visit. Bring all medications you take, including over the counter medications, herbals and other supplements with you to your doctor s visit. Patients and families are reminded to discard old lists and to update any records with all medication providers or retail pharmacies. Additional Information VACCINATE! IT SAVES LIVES! Members of the community who have not yet received the COVID-19 vaccine and would like to receive it can visit one of [facility] vaccine clinics. There are many vaccine clinic locations within the [facility]. For locations and available times, please visit [email or web address] It is important to note that some COVID mobile vaccine clinics are held outdoors and may be canceled in rainy or stormy conditions. To learn more about pediatric vaccinations (ages 5-11), we invite you to visit the [facility] webpage. https://www.[facility].org/pages/4898-Dgkbb-Ggffaroxejf-Sgdqfwkavi-Tjqoj-Shr stions.htmlTo learn more about the COVID-19 vaccine, we invite you to visit the [employer] website for a list of frequently asked questions. [email or web address] _[email or web address].pdf [facility] [employer] Patient Portal Access Instructions: Stay connected with your healthcare team and access your personal medical information anytime with the [facility] Patient Portal.If you would like a full copy of your medical records, please contact the [facility] Medical Records Department, Tuesday through Tuesday between 8a.m. and 4:30p.m. Please follow the directions below to access the portal: 1.Access the email account you provided upon registration to the [facility].2.Look for an invitation email from [facility].3.Open the email and access the invitation link: Accept Invitation to [facility]4.Fill in the required sandoval to create your account. Sign into www.[email or web address] with your username and password that you created in the above steps to stay up to date. You can then view a summary of results, a summary of your visits, and the ability to download your summaries to your computer or send the information securely to a physician. Remember that your healthcare information is confidential, so carefully consider who you will allow to register on the [facility] [employer] Patient Portal for access to your information. You can also access the [facility] Patient Portal on the [facility]. Simply click on Health Records under [employer] and then click on the [facility] logo. HOW TO SAFELY DISPOSE OF PRESCRIPTION MEDICATIONS Please use one of the following methods to safely dispose of your unused medications. 1.Use a drug disposal kit: the drug disposal pouch allows you to safely discard your old and unuseddrugs. Ask your nurse to give you one when you are discharged.2.Visit a local take-back location: Many local pharmacies and police departments have programs that collect old and unwanted prescriptiondrugs. Call your local pharmacy or go to http://bit.e(ye)BRAIN/0E7Ci1w to find one close to you.3.Make use of household items: Use cat litter or old coffee grounds to dispose medications if other options arenot available. Mix your drugs with these household products, seal them in an airtight container andthrow it into the garbage. Call [facility]: [phone] to be sure your drugs can be disposed of in this way. Some medicines may require a different approach.4.Never flush your medications down the toilet. IF YOU HAVE BEEN PRESCRIBED AN OPIOID FOR PAIN If you have been prescribed an opioid (such as hydrocodone, oxycodone or morphine), it is critical to understand the possible side effects and risks of opioid pain medications. Even when taken as directed, opioids can have several side effects including: Tolerance, meaning you might need to take more of a medication for the same pain relief. Nausea, vomiting and/or constipation. Sleepiness, dizziness, dry mouth, confusion, depression or itching. Physical dependence, meaning you have withdrawal symptoms when a medication is stopped, can develop within a few days. KNOW YOUR RESPONSIBILITIES It is important to know exactly how much and how often to take the opioid pain medications you are prescribed. Never take opioids in higher amounts or more often than prescribed. Do not combine opioids with alcohol or other drugs that cause drowsiness, such as benzodiazepines, also known as benzos, including diazepam and alprazolam, muscle relaxants or sleep aids. Never sell or share prescription opioids. This is illegal. Store opioids in a secure place and out of reach of others (including children, family, friends and visitors). The last page of this document has been signed and retained as a CHART COPY. Signatures Patient Education Materials Medication Leaflets My discharge plan and instructions have been reviewed and explained to me and I,SAM JIMENEZ understand my current condition and have read and understand these discharge instructions. I have received a written copy of the plan/instructions. If I have questions, I am aware that I should contact my doctor. Patient/Leave Specialist Signature: Date/Time: Relationship to Patient: Witness Name/Signature: Date/Time: [id number] Note Discharge Instructions Thank you for allowing [facility] to assist you with your healthcare needs. The following is importantdischarge information regarding your hospital visit. Your Care Team CANDIS, REBA MD Your Diagnosis Pleural effusion Chest pain Abnormal diagnostic test Rib/trunk pain-swelling What to do next Follow Up Appointments Follow Up with [facility], When Where: Follow Up with TANYA WESTFALL BA, MD, Infectious Disease, Infectious Disease Group When Only if needed Where: [facility] [place] [address] [place] [address]- Follow Up with REBA CHIRINOS MD When Why: Call for a follow up appointment within 1 week Where: [address] [place] [address]- [phone] The Following Activity and Diet Have Been Ordered for You Transfer of Care Activity - Ordered -- Activity As Tolerated, 05/10/22 11:17:00 EST Transfer of Care Diet - Ordered -- Type of Diet: Regular Diet, 05/10/22 11:17:00 EST The Following Equipment Has Been Ordered for You Discharge Home Equipment Transfer of Care IV/PICC - Ordered -- Routine care per facility guidelines., 05/10/22 11:17:31 EST The Following Treatments Have Been Ordered for You Discharge Labs Transfer of Care Labwork - Ordered -- cbc,cmp, intermediate designer Abx, follow-up within: 1 week, Results Notify to: TANYA WESTFALL BA, MD, repeat every Tuesday, 05/10/22 11:17:00 EST Discharge Radiology No qualifying data available. Other Therapies No qualifying data available. Post Acute Orders Transfer of Care Code Status - Ordered -- Full Code, Constant Order Transfer of Care IV/PICC - Ordered -- Routine care per facility guidelines., 05/10/22 11:17:31 EST Transfer of Care Labwork - Ordered -- cbc,cmp, mcfp Abx, follow-up within: 1 week, Results Notify to: TANYA WESTFALL BA, MD, repeat every Tuesday, 05/10/22 11:17:00 EST Transfer of Care Orders Electronically Signed By - Ordered -- 05/10/22 11:17:00 EST, LUDIVINA ANDRADE MD Transfer of Care Prognosis - Ordered -- Fair, Patient Aware: Yes Transfer of Care Rehab Potential - Ordered -- Rehab potential fair, 05/10/22 11:17:31 EST Someone Will Contact You Regarding These Home Health Referrals No home referrals have been ordered for you. No one will call you. Allergies NKA Medications Please ask your primary doctor or pharmacist before taking any other medication not listed, including over the counter drugs, herbal medications, vitamins and or supplements as they may interact withyour home medications. What How Much When Instructions Last Dose New acetaminophen (Tylenol 325 mg oral capsule) 650 Milligram by mouth Every 4 hours as needed for TEMP greater than 38.6 degrees Celsius New acetaminophen (Tylenol 325 mg oral capsule) 650 Milligram by mouth Every 4 hours as needed for Pain, scale 1-3 Changed nafcillin (nafcillin 10 g injection) See instructions 12gm and 500 mL normal saline continuous infusion, treatment continues until 2022 Printed Prescription Unchanged metoprolol (Lopressor 25mg--USE metoprolol tartrate 25 mg oral tablet) 1 tab(s) by mouth Daily at bedtime What How Much When Comments Stop Taking ceFAZolin (ceFAZolin 2 g/ 50 qV-snf-jyzutfy dextrose intravenous solution) 2 gram(s) Intramuscular Three (3) times a day Please take this list to your next doctor s visit. Bring all medications you take, including over the counter medications, herbals and other supplements with you to your doctor s visit. Patients and families are reminded to discard old lists and to update any records with all medication providers or retail pharmacies. Additional Information VACCINATE! IT SAVES LIVES! Members of the community who have not yet received the COVID-19 vaccine and would like to receive it can visit one of [facility] vaccine clinics. There are many vaccine clinic locations within the [facility]. For locations and available times, please visit [email or web address] It is important to note that some COVID mobile vaccine clinics are held outdoors and may be canceled in rainy or stormy conditions. To learn more about pediatric vaccinations (ages 5-11), we invite you to visit the [facility] webpage. https://www.[facility].org/pages/9941-Cyiyw-Nnocbaowocj-Twwdjwueph-Uzpsz-Qxe stions.htmlTo learn more about the COVID-19 vaccine, we invite you to visit the [employer] website for a list of frequently asked questions. [email or web address] _[email or web address]-Questions.pdf [facility] [employer] Patient Portal Access Instructions: Stay connected with your healthcare team and access your personal medical information anytime with the [facility] Patient Portal.If you would like a full copy of your medical records, please contact the [facility] Medical Records Department, Tuesday through Tuesday between 8a.m. and 4:30p.m. Please follow the directions below to access the portal: 1.Access the email account you provided upon registration to the [facility].2.Look for an invitation email from [facility].3.Open the email and access the invitation link: Accept Invitation to [facility]4.Fill in the required sandoval to create your account. Sign into [email or web address] with your username and password that you created in the above steps to stay up to date. You can then view a summary of results, a summary of your visits, and the ability to download your summaries to your computer or send the information securely to a physician. Remember that your healthcare information is confidential, so carefully consider who you will allow to register on the [facility] Patient Portal for access to your information. You can also access the [facility] Patient Portal on the [facility]. Simply click on Health Records under [employer]Data and then click on the [facility] logo. HOW TO SAFELY DISPOSE OF PRESCRIPTION MEDICATIONS Please use one of the following methods to safely dispose of your unused medications. 1.Use a drug disposal kit: the drug disposal pouch allows you to safely discard your old and unuseddrugs. Ask your nurse to give you one when you are discharged.2.Visit a local take-back location: Many local pharmacies and police departments have programs that collect old and unwanted prescriptiondrugs. Call your local pharmacy or go to http://bit.ly/0J6Lc4q to find one close to you.3.Make use of household items: Use cat litter or old coffee grounds to dispose medications if other options arenot available. Mix your drugs with these household products, seal them in an airtight container andthrow it into the garbage. Call [facility]: [phone] to be sure your drugs can be disposed of in this way. Some medicines may require a different approach.4.Never flush your medications down the toilet. IF YOU HAVE BEEN PRESCRIBED AN OPIOID FOR PAIN If you have been prescribed an opioid (such as hydrocodone, oxycodone or morphine), it is critical to understand the possible side effects and risks of opioid pain medications. Even when taken as directed, opioids can have several side effects including: Tolerance, meaning you might need to take more of a medication for the same pain relief. Nausea, vomiting and/or constipation. Sleepiness, dizziness, dry mouth, confusion, depression or itching. Physical dependence, meaning you have withdrawal symptoms when a medication is stopped, can develop within a few days. KNOW YOUR RESPONSIBILITIES It is important to know exactly how much and how often to take the opioid pain medications you are prescribed. Never take opioids in higher amounts or more often than prescribed. Do not combine opioids with alcohol or other drugs that cause drowsiness, such as benzodiazepines, also known as benzos, including diazepam and alprazolam, muscle relaxants or sleep aids. Never sell or share prescription opioids. This is illegal. Store opioids in a secure place and out of reach of others (including children, family, friends and visitors). The last page of this document has been signed and retained as a CHART COPY. Signatures Patient Education Materials Medication Leaflets My discharge plan and instructions have been reviewed and explained to me and I,SAM JIMENEZ understand my current condition and have read and understand these discharge instructions. I have received a written copy of the plan/instructions. If I have questions, I am aware that I should contact my doctor. Patient/Leave Specialist Signature: Date/Time: Relationship to Patient: Witness Name/Signature: Date/Time: [id number] Infectious disease Progress note Date of Service 05/09/2022 Chief Complaint Pleural effusion, pleuritic type chest pain Subjective Patient afebrile overnight. Patient does not report any cough or pleuritic type chest pain. Objective Vitals and Measurements T: 36.7 C (Oral) TMIN: 36.6 C (Oral) TMAX: 36.8 C (Oral) HR: 106(Monitored) RR: 16 BP: 128/84 SpO2:100% Intake and Output 7AM Yesterday to 7AM Today Intake and Output (Last 24 hours) Intake Administration Information 333.28 Oral Intake 480.00 Output Stool Count 0.00 Urine Count 6.00 Total Summary Total Intake 813.28 Total Output 0.00 Fluid Balance 813.28 Physical Exam Patient noted to be laying in the bed not in any distress alert awake oriented x3 able to speak in full sentences, patient is in no respiratory distress. Weight Dosing Weight: 55 kg (05/05/22) Dosing Weight: 55 kg (05/04/22) Medications Medications (10) Active Scheduled: (1) metoprolol tartrate 25 mg tablet 25 mg 1 tab(s), Oral, qHS Continuous: (1) NS (0.9% nacl) 500 mL + nafcillin 12 gram(s) 500 mL, Intravenous, 20.83 mL/hr PRN: (8) acetaminophen 325 mg Tablet 650 mg 2 tab(s), Oral, q4h acetaminophen 325 mg Tablet 650 mg 2 tab(s), Oral, q4h albuterol - ipratropium 2.5 mg-0.5 mg/3 mL Inhal Milagro UD 3 mL, Inhalation, q4hRT guaifenesin 100 mg/5 mL 120 mL liquid 200 mg 10 mL, Oral, q4h melatonin 3 mg tablet 3 mg 1 tab(s), Oral, qHS ondansetron 2 mg/ 1 mL 2 mL INJ 4 mg 2 mL, IV Push, q4h polyethylene glycol 3350 - UD packet 17 gram(s) 15 mL, Oral, qDay tramadol 50 mg Tablet 50 mg 1 tab(s), Oral, q6h Lab Results 05/09 05:31 WBC: 6.5 Hgb: 10.5 L Hct: 32.7 L Platelet: 335 Neutrophil %: 54.1 Glucose Level: 92 Sodium Level: 138 Potassium Level: 4.4 BUN: 10.0 Creatinine Lvl (s): 0.63 05/08 04:52 Glucose Level: 131 H Sodium Level: 137 Potassium Level: 4.0 BUN: 10.0 Creatinine Lvl (s): 0.67 Imaging Results and Diagnostics XR Chest 2 Views Result Date: May 08, 2022 Verified By: YAZMIN KUMAR DO CLINICAL STATEMENT: IMPRESSION: Mild interval decrease of left basilar atelectasis with trace residualpleural effusion.Slight interval improvement of multifocal nodular opacities. XR Chest 1 View Result Date: May 05, 2022 Verified By: LIDIA BOYKIN MD CLINICAL STATEMENT: IMPRESSION: No pneumothorax. Interval decrease in left-sided pleural effusion followingthoracentesis. Other lung findings are probably unchanged. I have personally reviewed the images of this examination and agree with theresident's findings and interpretations. US Drainage Lung Left Result Date: May 05, 2022 Verified By: ALPHONSO AMBROCIO MD, Ph.D CLINICAL STATEMENT: IMPRESSION: Successful ultrasound guided thoracentesis This procedure was performed by Mildred Beck PA-C XR Chest 2 Views Result Date: May 04, 2022 Verified By: SHARIF NELSON MD CLINICAL STATEMENT: IMPRESSION: Interval development of a moderate left pleural effusion. Redemonstration of nodular opacities as seen on prior CTA chest. EKG No qualifying data available. Assessment/Plan 1. Pleural effusion 2. Chest pain Patient is a 27-year-old male with history of IV drug use, tricuspid valve endocarditis, MSSA bacteremia, chronic hepatitis C, septic pulmonary emboli, last discharged from the hospital on 04/21/2022 to a nursing facility on nafcillin. He is continued on nafcillin but now returns to the hospital for p leuritic type chest pain noted to have a large left-sided pleural effusion. Has had thoracentesis performed. Pleural fluid gram stain and cultures Have remained negative. Cytology on the pleural fluid does not show any malignancy. Patient likely had complicated left-sided pleural effusion in face of septic pulmonary emboli, MSSAbacteremia and endocarditis. I have reviewed chest x-ray images myself. On repeat chest x-ray that I have ordered yesterday, pleural effusion is improved now only with trace effusion. Continue nafcillin as originally planned. From ID perspective patient can [facility] back to the [facility]. A new prescription is left for nafcillin 12 g IV continuous infusion over 24 hours with end date of May 30, 2022. Please obtain CBC, differential, hepatic panel, renal panel every Tuesday and send results to fax number [phone] Westfall Please call Dr. Westfall's office for a follow-up appointment in 2-4 weeks, Phone number [phone]. Digitally Signed by SOLOMON MILLS MD on 05/09/2022 12:00 PM [id number] Note Subjective: Patient seen for chest pain, left pleural effusion 27-year-old male with multiple medical problems including microcytic anemia, history of IV drug abuse, smoking, HCV, recent discharged from [facility] on 04[facility]/2022 after he was treated for sepsis and subacute bacterial endocarditis and MSSA bacteremia, patient was discharged with 6 weeks of IV nafcillin to nursing facility, patient returns to the hospital for chest pain, was found to have left pleural effusion, and thoracocentesis was done, the fluid analysis was sent for microbiology and the cultures remains negative so far. Infectious disease team evaluated the patient during the hospital stay, they recommended to continue with IV antibiotics which is currently in the form of continuous infusion, patient was feeling better, repeated chest x-ray is showing decreased in the amount of the left pleural effusion, and patient's blood test has been stable. Infectious disease team will give further recommendations once the pleural fluid culture is finalized. Patient was examined and evaluated by me today he was awake alert and oriented, denying any chest pain, denying any abdominal pain no nausea or vomiting, no recliners or dizziness, patient is tolerating diet fairly well, bowel movements are within normal limits. Vitals Signs(Last 24 hrs)__Last Charted Minimum Maximum Temp36.7(MAY 09 08:06)36.7(MAY 09 08:06)36.6(MAY 08:) Heart RateH 106(MAY 09 08:06)H 106(MAY 09 08:06)H 106(MAY 09 08:06) Resp Rate16(MAY 08:20)16(MAY 08:25)16(MAY 08:25) LLC556(MAY 09 08:06)122(MAY 08:20)128(MAY 09 08:06) DBP84(MAY 09 08:06)82(MAY 08 17:25)84(MAY 09 08:06) Physical examination: HEENT, is atraumatic normocephalic, pupils are equal, no pallor Neck supple no JVD Lungs breath sounds in lower lung sandoval, left more than right, no wheezes, no rhonchi, no accessory muscle use Heart S1-S2 regular Abdomen soft nontender nondistended bowel sounds are present all 4 quadrants Lower extremities show no edema, no cyanosis, pulses palpable +2 bilaterally Skin showed no rash Neurological examination patient is awake alert and oriented 3, cranial nerves are grossly intact, no focal neurological defect could be appreciated Assessment and plan: 1. Moderate left pleural effusion status post thoracocentesis where 350 mL were removed 2. Atypical chest pain. 3. Subacute bacterial endocarditis with MSSA bacteremia. 4. Chronic anemia. 5. Tobacco use. 6. History of IV drug abuse. 7. Hep C. Plan: 1. Continue with IV antibiotics continuous infusion of the nafcillin, follow the culture of the pleural fluid 2. Follow the recommendations from infectious disease team 3. Continue to monitor patient clinically as well as his labs. Patient understood his plan of care all his questions were answered all his concerns were addressed. Again today I offered to call his mother, he declined stating that he will update her by himself Labs: Basic Metabolic Profile Glucose Level: 92 mg/dL (05/09/22 05:31:00) Sodium Level: 138 mEq/L (05/09/22 05:31:00) Potassium Level: 4.4 mEq/L (05/09/22 05:31:00) Chloride: 106 mEq/L (05/09/22 05:31:00) CO2: 28 mEq/L (05/09/22 05:31:00) BUN/Creatinine Ratio: 15.9 ratio (05/09/22 05:31:00) Complete Blood Count WBC: 6.5 10^3/mcL (05/09/22 05:31:00) RBC: 3.83 10^6/mcL Low (05/09/22 05:31:00) Hgb: 10.5 G/dL Low (05/09/22 05:31:00) Hct: 32.7 % Low (05/09/22 05:31:00) MCV: 85.2 fL (05/09/22 05:31:00) MCH: 27.3 pg (05/09/22 05:31:00) MCHC: 32 G/dL (05/09/22 05:31:00) RDW: 20 % High (05/09/22 05:31:00) Platelet: 335 10^3/mcL (05/09/22 05:31:00) MPV: 7.7 fL (05/09/22 05:31:00) Medications (10) Active Scheduled: (1) metoprolol tartrate 25 mg tablet 25 mg 1 tab(s), Oral, qHS Continuous: (1) NS (0.9% nacl) 500 mL + nafcillin 12 gram(s) 500 mL, Intravenous, 20.83 mL/hr PRN: (8) acetaminophen 325 mg Tablet 650 mg 2 tab(s), Oral, q4h acetaminophen 325 mg Tablet 650 mg 2 tab(s), Oral, q4h albuterol - ipratropium 2.5 mg-0.5 mg/3 mL Inhal Milagro UD 3 mL, Inhalation, q4hRT guaifenesin 100 mg/5 mL 120 mL liquid 200 mg 10 mL, Oral, q4h melatonin 3 mg tablet 3 mg 1 tab(s), Oral, qHS ondansetron 2 mg/ 1 mL 2 mL INJ 4 mg 2 mL, IV Push, q4h polyethylene glycol 3350 - UD packet 17 gram(s) 15 mL, Oral, qDay tramadol 50 mg Tablet 50 mg 1 tab(s), Oral, q6h Signature: Ludivina Andrade MD Digitally Signed by LUDIVINA ANDRADE MD on 05/09/2022 09:48 AM [id number] Note ORIGINAL EXAMINATION: TWO XRAY VIEWS OF THE CHEST05/08/2022 1:39 pm COMPARISON: May 05, 2022, 04/13/2022 CT chest HISTORY: ORDERING SYSTEM PROVIDED HISTORY: Reason for Exam: Follow-up on left-sided pleural effusion FINDINGS: Cardiac silhouette is stable. Redemonstration of multifocal cavitary lesions, some of which appear improved compared with prior study. Residual atelectasis is demonstrated in the left lung base. There is trace residual effusion. No pneumothorax. Right upper extremity PICC is unchanged in position. IMPRESSION: Mild interval decrease of left basilar atelectasis with trace residual pleural effusion. Slight interval improvement of multifocal nodular opacities. Interpreted by: Yazmin Kumar DO Preliminary Report By: Yazmin Kumar DO Electronically signed By Yazmin Kumar DO Dictated Date: 05/08/2022 1:43:06 PM Prelim Date: 05/08/2022 1:46:10 PM Sign Date: 05/08/2022 1:46:10 PM Ordering Provider: [facility]01-21-2023 Note ORIGINAL EXAMINATION: TWO XRAY VIEWS OF THE CHEST05/08/2022 1:39 pm COMPARISON: May 05, 2022, 04/13/2022 CT chest HISTORY: ORDERING SYSTEM PROVIDED HISTORY: Reason for Exam: Follow-up on left-sided pleural effusion FINDINGS: Cardiac silhouette is stable. Redemonstration of multifocal cavitary lesions, some of which appear improved compared with prior study. Residual atelectasis is demonstrated in the left lung base. There is trace residual effusion. No pneumothorax. Right upper extremity PICC is unchanged in position. IMPRESSION: Mild interval decrease of left basilar atelectasis with trace residual pleural effusion. Slight interval improvement of multifocal nodular opacities. Interpreted by: Yazmin Kumar DO Preliminary Report By: Yazmin Kumar DO Electronically signed By Yazmin Kumar DO Dictated Date: 05/08/2022 1:43:06 PM Prelim Date: 05/08/2022 1:46:10 PM Sign Date: 05/08/2022 1:46:10 PM Ordering Provider: [facility]01-21-2023 Infectious disease Progress note Date of Service 05/08/2022 Chief Complaint Left-sided pleural effusion Subjective Patient with T-max of 36.9, does not report any cough shortness of breath no oxygen requirements. Objective Vitals and Measurements T: 36.9 C (Oral) TMIN: 36.7 C (Oral) TMAX: 36.9 C (Oral) HR: 93 RR: 18 BP: 109/68 SpO2: 100% Intake and Output 7AM Yesterday to 7AM Today Intake and Output (Last 24 hours) Intake Output Total Summary Total Intake 0.00 Total Output 0.00 Fluid Balance 0.00 Physical Exam Patient is a young male laying in the bed comfortably alert and awake able to speak in full sentences HEENT atraumatic normocephalic neck supple patient is in no respiratory distress his lungs are clear to auscultation bilaterally. He has no lower extremity edema noted. Weight Dosing Weight: 55 kg (05/05/22) Dosing Weight: 55 kg (05/04/22) Medications Medications (10) Active Scheduled: (1) metoprolol tartrate 25 mg tablet 25 mg 1 tab(s), Oral, qHS Continuous: (1) NS (0.9% nacl) 500 mL + nafcillin 12 gram(s) 500 mL, Intravenous, 20.83 mL/hr PRN: (8) acetaminophen 325 mg Tablet 650 mg 2 tab(s), Oral, q4h acetaminophen 325 mg Tablet 650 mg 2 tab(s), Oral, q4h albuterol - ipratropium 2.5 mg-0.5 mg/3 mL Inhal Milagro UD 3 mL, Inhalation, q4hRT guaifenesin 100 mg/5 mL 120 mL liquid 200 mg 10 mL, Oral, q4h melatonin 3 mg tablet 3 mg 1 tab(s), Oral, qHS ondansetron 2 mg/ 1 mL 2 mL INJ 4 mg 2 mL, IV Push, q4h polyethylene glycol 3350 - UD packet 17 gram(s) 15 mL, Oral, qDay tramadol 50 mg Tablet 50 mg 1 tab(s), Oral, q6h Lab Results 05/08 04:52 Glucose Level: 131 H Sodium Level: 137 Potassium Level: 4.0 BUN: 10.0 Creatinine Lvl (s): 0.67 05/07 04:50 WBC: 5.3 Hgb: 10.0 L Hct: 30.2 L Platelet: 332 Neutrophil %: 50.9 Glucose Level: 122 H Sodium Level: 140 Potassium Level: 4.1 BUN: 13.0 Creatinine Lvl (s): 0.67 Imaging Results and Diagnostics XR Chest 1 View Result Date: May 05, 2022 Verified By: LIDIA BOYKIN MD CLINICAL STATEMENT: IMPRESSION: No pneumothorax. Interval decrease in left-sided pleural effusion followingthoracentesis. Other lung findings are probably unchanged. I have personally reviewed the images of this examination and agree with theresident's findings and interpretations. US Drainage Lung Left Result Date: May 05, 2022 Verified By: ALPHONSO AMBROCIO MD, Ph.D CLINICAL STATEMENT: IMPRESSION: Successful ultrasound guided thoracentesis This procedure was performed by Mildred PHELPS-C XR Chest 2 Views Result Date: May 04, 2022 Verified By: SHARIF NELSON MD CLINICAL STATEMENT: IMPRESSION: Interval development of a moderate left pleural effusion. Redemonstration of nodular opacities as seen on prior CTA chest. EKG No qualifying data available. Assessment/Plan 1. Pleural effusion 2. Chest pain Patient is a 27-year-old male with history of IV drug use, tricuspid valve endocarditis, MSSA bacteremia, chronic hepatitis C, septic pulmonary emboli, last discharged from the hospital on 04/21/2022 to a nursing facility on nafcillin. He is continued on nafcillin but now returns to the hospital for p leuritic type chest pain noted to have a large left-sided pleural effusion. Has had thoracentesis performed. Pleural fluid gram stain and cultures Have remained negative. Cytology on the pleural fluid does not show any malignancy. Patient likely had complicated left-sided pleural effusion in face of septic pulmonary emboli, MSSAbacteremia and endocarditis. We will recommend repeating chest x-ray today to ensure resolution of left-sided pleural effusion. If resolved, patient can be discharged back to the nursing facility to complete the remaining courseof nafcillin with anticipated end date of 05/30/2022 as originally planned. If however chest x-ray demonstrates persistent of pleural effusion, recommend evaluation by either pulmonology or CT surgery for chest tube drainage. ID service will continue to follow. Orders: XR Chest 2 Views (PA & Lateral) Digitally Signed by SOLOMON MILLS MD on 05/08/2022 11:45 AM [id number] Note Subjective: Patient seen for chest pain, left pleural effusion patient was examined and evaluated today, patient denies chest pain, no shortness of breath, no cough, no fever or chills, no abdominal pain, no nausea or vomiting, no headache, tolerating po well, bowel movement is normal, no issues overnight reported by the nursing staff Vitals Signs(Last 24 hrs)__Last Charted Minimum Maximum Temp36.9(MAY 08 05:42)36.9(MAY 08 05:42)36.8(MAY 07 14:54) Heart RateH 104(MAY 07 21:24)H 104(MAY 07 21:24)H 104(MAY 07:24) Resp Rate18(MAY 08 05:42)18(MAY 07 14:54)18(MAY 07 14:54) QZH065(MAY 08 05:42)109(MAY 08 05:42)132(MAY 07:42) DBP68(MAY 08 05:42)68(MAY 08 05:42)H 91(MAY 07:42) Physical examination: HEENT, is atraumatic normocephalic, pupils are equal, no pallor Neck supple no JVD Lungs breath sounds in lower lung sandoval, left more than right, no wheezes, no rhonchi, no accessory muscle use Heart S1-S2 regular Abdomen soft nontender nondistended bowel sounds are present all 4 quadrants Lower extremities show no edema, no cyanosis, pulses palpable +2 bilaterally Skin showed no rash Neurological examination patient is awake alert and oriented 3, cranial nerves are grossly intact, no focal neurological defect could be appreciated Assessment and plan: 1. Moderate left pleural effusion status post thoracocentesis where 350 mL were removed 2. Atypical chest pain. 3. Subacute bacterial endocarditis with MSSA bacteremia. 4. Chronic anemia. 5. Tobacco use. 6. History of IV drug abuse. 7. Hep C. Plan: 1. Continue with IV antibiotics continuous infusion of the nafcillin, follow the culture of the pleural fluid 2. Follow the recommendations from infectious disease team 3. Continue to monitor patient clinically as well as his labs. Patient understood his plan of care all his questions were answered all his concerns were addressed. I offered to call his mother, stating that he will update her by himself Labs: Basic Metabolic Profile Glucose Level: 131 mg/dL High (05/08/22 04:52:00) Sodium Level: 137 mEq/L (05/08/22 04:52:00) Potassium Level: 4 mEq/L (05/08/22 04:52:00) Chloride: 106 mEq/L (05/08/22 04:52:00) CO2: 29 mEq/L (05/08/22 04:52:00) BUN/Creatinine Ratio: 14.9 ratio (05/08/22 04:52:00) No qualifying data available.Medications (10) Active Scheduled: (1) metoprolol tartrate 25 mg tablet 25 mg 1 tab(s), Oral, qHS Continuous: (1) NS (0.9% nacl) 500 mL + nafcillin 12 gram(s) 500 mL, Intravenous, 20.83 mL/hr PRN: (8) acetaminophen 325 mg Tablet 650 mg 2 tab(s), Oral, q4h acetaminophen 325 mg Tablet 650 mg 2 tab(s), Oral, q4h albuterol - ipratropium 2.5 mg-0.5 mg/3 mL Inhal Milagro UD 3 mL, Inhalation, q4hRT guaifenesin 100 mg/5 mL 120 mL liquid 200 mg 10 mL, Oral, q4h melatonin 3 mg tablet 3 mg 1 tab(s), Oral, qHS ondansetron 2 mg/ 1 mL 2 mL INJ 4 mg 2 mL, IV Push, q4h polyethylene glycol 3350 - UD packet 17 gram(s) 15 mL, Oral, qDay tramadol 50 mg Tablet 50 mg 1 tab(s), Oral, q6h Signature: Ludivina Andrade MD Digitally Signed by LUDIVINA ANDRADE MD on 05/08/2022 09:39 AM [id number] Note Subjective: Patient seen for chest pain, left pleural effusion patient was examined and evaluated today, patient denies chest pain, no shortness of breath, no cough, no fever or chills, no abdominal pain, no nausea or vomiting, no headache, tolerating po well, bowel movement is normal, pt is feeling better today. Vitals Signs(Last 24 hrs)__Last Charted Minimum Maximum Temp36.8(MAY 07 06:27)36.8(MAY 07:27)37.1(MAY 06:54) Heart RateH 104(MAY 06 20:58)H 104(MAY 06 20:54)H 104(MAY 06:54) Resp Rate16(MAY 07 06:27)16(MAY 06 20:54)18(MAY 06 14:27) UFZ551(MAY 07:27)104(MAY 07 06:27)122(MAY 06 20:54) DBP70(MAY 07 06:27)70(MAY 07 06:27)82(MAY 06 20:54) Physical examination: HEENT, is atraumatic normocephalic, pupils are equal, no pallor Neck supple no JVD Lungs breath sounds in lower lung sandoval, left more than right, no wheezes, no rhonchi, no accessory muscle use Heart S1-S2 regular Abdomen soft nontender nondistended bowel sounds are present all 4 quadrants Lower extremities show no edema, no cyanosis, pulses palpable +2 bilaterally Skin showed no rash Neurological examination patient is awake alert and oriented 3, cranial nerves are grossly intact, no focal neurological defect could be appreciated Assessment and plan: 1. Moderate left pleural effusion status post thoracocentesis where 350 mL were removed 2. Atypical chest pain. 3. Subacute bacterial endocarditis with MSSA bacteremia. 4. Chronic anemia. 5. Tobacco use. 6. History of IV drug abuse. 7. Hep C. Plan: 1. Continue with IV antibiotics continuous infusion of the nafcillin, the input of infectious disease team was reviewed, discussed with the patient. 2. Follow analysis of the pleural fluid, continue to follow the pleural fluid culture as well as the blood culture. 3. Continue to monitor patient clinically as well as his labs. Patient understood his plan of care all his questions were answered all his concerns were addressed. Labs: Basic Metabolic Profile Glucose Level: 122 mg/dL High (05/07/22 04:50:00) Sodium Level: 140 mEq/L (05/07/22 04:50:00) Potassium Level: 4.1 mEq/L (05/07/22 04:50:00) Chloride: 107 mEq/L (05/07/22 04:50:00) CO2: 29 mEq/L (05/07/22 04:50:00) BUN/Creatinine Ratio: 19.4 ratio (05/07/22 04:50:00) Complete Blood Count WBC: 5.3 10^3/mcL (05/07/22 04:50:00) RBC: 3.57 10^6/mcL Low (05/07/22 04:50:00) Hgb: 10 G/dL Low (05/07/22 04:50:00) Hct: 30.2 % Low (05/07/22 04:50:00) MCV: 84.6 fL (05/07/22 04:50:00) MCH: 28 pg (05/07/22 04:50:00) MCHC: 33.1 G/dL (05/07/22 04:50:00) RDW: 19.7 % High (05/07/22 04:50:00) Platelet: 332 10^3/mcL (05/07/22 04:50:00) MPV: 7.2 fL (05/07/22 04:50:00) Medications (10) Active Scheduled: (1) metoprolol tartrate 25 mg tablet 25 mg 1 tab(s), Oral, qHS Continuous: (1) NS (0.9% nacl) 500 mL + nafcillin 12 gram(s) 500 mL, Intravenous, 20.83 mL/hr PRN: (8) acetaminophen 325 mg Tablet 650 mg 2 tab(s), Oral, q4h acetaminophen 325 mg Tablet 650 mg 2 tab(s), Oral, q4h albuterol - ipratropium 2.5 mg-0.5 mg/3 mL Inhal Milagro UD 3 mL, Inhalation, q4hRT guaifenesin 100 mg/5 mL 120 mL liquid 200 mg 10 mL, Oral, q4h melatonin 3 mg tablet 3 mg 1 tab(s), Oral, qHS ondansetron 2 mg/ 1 mL 2 mL INJ 4 mg 2 mL, IV Push, q4h polyethylene glycol 3350 - UD packet 17 gram(s) 15 mL, Oral, qDay tramadol 50 mg Tablet 50 mg 1 tab(s), Oral, q6h Signature: Ludivina Andrade MD Digitally Signed by LUDIVINA ANDRADE MD on 05/07/2022 12:03 PM [id number] Note Subjective: Patient seen for chest pain, left pleural effusion patient was examined and evaluated today, patient denies chest pain, no shortness of breath, no cough, no fever or chills, no abdominal pain, no nausea or vomiting, no headache, tolerating po well, bowel movement is normal, pt is feeling better today. Vitals Signs(Last 24 hrs)__Last Charted Minimum Maximum Temp36.7(MAY 06:)36.7(MAY 06:)37.1(MAY 05 16:) Heart Rate99(MAY 05:)99(MAY 05:)99(MAY 05:) Resp Rate18(MAY 06:)18(MAY 05 16:00)18(MAY 05 16:00) QUV325(MAY 06)117(MAY 06:)123(MAY 05:) DBP80(MAY 06)80(MAY 06:)83(MAY 06:) Physical examination: HEENT, is atraumatic normocephalic, pupils are equal, no pallor Neck supple no JVD Lungs breath sounds in lower lung sandoval, left more than right, no wheezes, no rhonchi, no accessory muscle use Heart S1-S2 regular Abdomen soft nontender nondistended bowel sounds are present all 4 quadrants Lower extremities show no edema, no cyanosis, pulses palpable +2 bilaterally Skin showed no rash Neurological examination patient is awake alert and oriented 3, cranial nerves are grossly intact, no focal neurological defect could be appreciated Assessment and plan: 1. Moderate left pleural effusion status post thoracocentesis where 350 mL were removed today. 2. Atypical chest pain. 3. Subacute bacterial endocarditis with MSSA bacteremia. 4. Chronic anemia. 5. Tobacco use. 6. History of IV drug abuse. 7. Hep C. Plan: 1. Continue with IV antibiotics continuous infusion of the nafcillin, the input of infectious disease team was reviewed, discussed with the patient. 2. Follow analysis of the pleural fluid, continue to follow the pleural fluid culture as well as the blood culture. 3. Continue to monitor patient clinically as well as his labs. Patient understood his plan of care all his questions were answered all his concerns were addressed. I did speak to the patient's mother over the phone, I updated her about the patient's condition and that the plan of care all her questions were answered. Labs: Basic Metabolic Profile Glucose Level: 97 mg/dL (05/06/22 05:46:00) Sodium Level: 138 mEq/L (05/06/22 05:46:00) Potassium Level: 4.2 mEq/L (05/06/22 05:46:00) Chloride: 106 mEq/L (05/06/22 05:46:00) CO2: 26 mEq/L (05/06/22 05:46:00) BUN/Creatinine Ratio: 15.4 ratio (05/06/22 05:46:00) Complete Blood Count WBC: 5 10^3/mcL (05/06/22 05:46:00) RBC: 3.56 10^6/mcL Low (05/06/22 05:46:00) Hgb: 9.9 G/dL Low (05/06/22 05:46:00) Hct: 30 % Low (05/06/22 05:46:00) MCV: 84.3 fL (05/06/22 05:46:00) MCH: 27.8 pg (05/06/22 05:46:00) MCHC: 33 G/dL (05/06/22 05:46:00) RDW: 20.2 % High (05/06/22 05:46:00) Platelet: 335 10^3/mcL (05/06/22 05:46:00) MPV: 7.5 fL (05/06/22 05:46:00) Medications (10) Active Scheduled: (1) metoprolol tartrate 25 mg tablet 25 mg 1 tab(s), Oral, qHS Continuous: (1) NS (0.9% nacl) 500 mL + nafcillin 12 gram(s) 500 mL, Intravenous, 20.83 mL/hr PRN: (8) acetaminophen 325 mg Tablet 650 mg 2 tab(s), Oral, q4h acetaminophen 325 mg Tablet 650 mg 2 tab(s), Oral, q4h albuterol - ipratropium 2.5 mg-0.5 mg/3 mL Inhal Milagro UD 3 mL, Inhalation, q4hRT guaifenesin 100 mg/5 mL 120 mL liquid 200 mg 10 mL, Oral, q4h melatonin 3 mg tablet 3 mg 1 tab(s), Oral, qHS ondansetron 2 mg/ 1 mL 2 mL INJ 4 mg 2 mL, IV Push, q4h polyethylene glycol 3350 - UD packet 17 gram(s) 15 mL, Oral, qDay tramadol 50 mg Tablet 50 mg 1 tab(s), Oral, q6h Signature: Ludivina Andrade MD Digitally Signed by LUDIVINA ANDRADE MD on 05/06/2022 03:25 PM [id number] Infectious disease Consult note Date of Service 05/06/2022 Reason for Consultation Pleural effusion Referring Physician Dr. Huggins History of Present Illness Patient is a 27-year-old male who is well-known to us from recent hospitalization, last discharged from the hospital on 04/21/2022 to a nursing facility given history of tricuspid valve endocarditis, MSSA bacteremia, history of IV drug use, chronic hepatitis C untreated, patient had a large vegetation of 0.7 x 1.1 cm which was seen on YESSENIA on the right atrial aspect of the anterior leaflet of the tricuspid valve. Patient also had multiple septic pulmonary emboli with cavitary lesions. Patient was discharged from the hospital on nafcillin to a nursing facility. Patient now presents to the hospital on 05/04/2022 with complaints of pleuritic type chest pain. Patient otherwise does not have any symptoms of fevers chills nausea vomiting or diarrhea. He is tolerating antibiotics well. PICC line is in place. Upon presentation chest x- ray showed moderate left-sided pleural effusion with demonstration of nodular opacities seen on the prior CT chest. Primary team obtain thoracentesis of the left lung with removal of 350 cc of serosanguineous fluid this is sent to the lab cultures and gram stain currently pending. Patient remains on nafcillin. ID consulted for further recommendations. 2 sets of blood cultures obtained on 05/04/2022 have been no growth at this time. Review of Systems 12 point review of systems is reviewed and is negative except for noted above. Physical Exam Vitals and Measurements T: 36.9 C (Oral) TMIN: 36.9 C (Oral) TMAX: 37.3 C (Oral) HR: 96 RR: 18 BP: 117/83 SpO2: 100% Weight Dosing Weight: 55 kg (05/05/22) Dosing Weight: 55 kg (05/04/22) General Appearance: Patient is laying in the bed not in any apparent distress alert awake oriented x3 HEENT: Atraumatic normocephalic, EOMI Neck: Neck supple oral mucosa moist Cardiac: first and second heart sounds audible subtle murmur noted Lungs: Decreased breath sounds noted at the left lung base Abdomen: Soft nontender nondistended bowel sounds positive Musculoskeletal: No tenderness noted over large joints Extremities: No lower extremity edema PICC line in place with dressing CDI in the right upper extremity. Neurological: Grossly non focal Skin: No generalized rash Lab Results 05/06 05:46 WBC: 5.0 Hgb: 9.9 L Hct: 30.0 L Platelet: 335 Neutrophil %: 55.2 Glucose Level: 97 Sodium Level: 138 Potassium Level: 4.2 BUN: 10.0 Creatinine Lvl (s): 0.65 05/05 04:57 WBC: 7.6 Hgb: 9.8 L Hct: 29.6 L Platelet: 380 Neutrophil %: 56.9 Glucose Level: 126 H Sodium Level: 138 Potassium Level: 3.4 L BUN: 9.0 Creatinine Lvl (s): 0.69 Imaging Results and Diagnostics XR Chest 1 View Result Date: May 05, 2022 Verified By: LIDIA BOYKIN MD CLINICAL STATEMENT: IMPRESSION: No pneumothorax. Interval decrease in left-sided pleural effusion followingthoracentesis. Other lung findings are probably unchanged. I have personally reviewed the images of this examination and agree with theresident's findings and interpretations. US Drainage Lung Left Result Date: May 05, 2022 Verified By: ALPHONSO AMBROCIO MD, Ph.D CLINICAL STATEMENT: IMPRESSION: Successful ultrasound guided thoracentesis This procedure was performed by Mildred Beck PA-C XR Chest 2 Views Result Date: May 04, 2022 Verified By: SHARIF NELSON MD CLINICAL STATEMENT: IMPRESSION: Interval development of a moderate left pleural effusion. Redemonstration of nodular opacities as seen on prior CTA chest. Assessment/Plan 1. Pleural effusion 2. Chest pain Patient is a 27-year-old male with history of IV drug use, tricuspid valve endocarditis, MSSA bacteremia, chronic hepatitis C, septic pulmonary emboli, last discharged from the hospital on 04/21/2022 to a nursing facility on nafcillin. He is continued on nafcillin but now returns to the hospital for p leuritic type chest pain noted to have a large left-sided pleural effusion. Has had thoracentesis performed. Pleural fluid gram stain and cultures are pending. Blood cultures are pending but no growth. Recommend continuation of nafcillin, he would need to continue the full 6-week course of IV antibiotics. He seems to have a complicated pleural effusion secondary to septic pulmonary emboli. Thoracentesis was attempted. Repeat chest x-ray after thoracentesis shows decreasing pleural effusion. Patient would have to be monitored to ensure resolution of left-sided pleural effusion which is likely infectious. ID service will continue to follow. Problem List/Past Medical History Ongoing Bacteremia Endocarditis of tricuspid valve IV drug abuse Historical No qualifying data Procedure/Surgical History Hernia Medications Inpatient DuoNeb, 3 mL, Inhalation, q4hRT, PRN guaiFENesin, 200 mg= 10 mL, Oral, q4h, PRN melatonin, 3 mg= 1 tab(s), Oral, qHS, PRN Metoprolol Tartrate 25 mg oral tablet, 25 mg= 1 tab(s), Oral, qHS Miralax Powder Packet, 17 gram(s)= 15 mL, Oral, qDay, PRN NS 500 mL + nafcillin 12 gram(s) Tylenol, 650 mg= 2 tab(s), Oral, q4h, PRN Tylenol, 650 mg= 2 tab(s), Oral, q4h, PRN Ultram, 50 mg= 1 tab(s), Oral, q6h, PRN Zofran, 4 mg= 2 mL, IV Push, q4h, PRN Home ceFAZolin 2 g/50 yP-lox-qwnktor dextrose intravenous solution, 2 gram(s), Intramuscular, TID Lopressor 25mg--USE metoprolol tartrate 25 mg oral tablet, 25 mg= 1 tab(s), Oral, qHS nafcillin 2 g injection, 2 gram(s), IV Piggyback, q4hr Allergies NKA Social History Smoking Status - 12/25/2015 Current every day smoker Substance Abuse Use: Current. Type: Heroin. Frequency: 1-2 times per week. Previous treatment: None. Started at age: 20 Years. IV drug use; Yes. Has drug use interfered with your work or home life? No. Ready to change: Yes. Concerns about substance abuse in household: No., 12/06/2019 Tobacco Tobacco Use: 10 or more cigarettes (1/2 pack or more)/day in last 30 days., 02/18/2019 Immunizations No qualifying data available. Digitally Signed by SOLOMON MILLS MD on 05/06/2022 11:54 AM [id number] Note Pathology report verified by [facility] Screened by: GL OR Electronically signed by [facility] Sign-Out Date: 05/06/2022 13:40 Performing Lab: [facility], [address] [place] [address] Pathology Dept [facility] 01-19-2023 Note Pathology report verified by [facility] Screened by: [place] Electronically signed by [facility] Sign-Out Date: 05/06/2022 13:40 Performing Lab: [facility], [address] [place] [address] Pathology Dept [facility] 01-19-2023 Note Pathology report verified by [facility] Screened by: [place] Electronically signed by [facility] Sign-Out Date: 05/06/2022 13:40 Performing Lab: [facility], [address] [place] [address] Pathology Dept [facility] 01-19-2023 Note Pathology report verified by [facility] Screened by: [place] Electronically signed by [facility] Sign-Out Date: 05/06/2022 13:40 Performing Lab: [address] Pathology Dept [facility] 01-18-2023 Note ORIGINAL PROCEDURE: ULTRASOUND GUIDED THORACENTESIS CLINICAL STATEMENT: Shortness of breath, pleuritic chest pain, pleural effusion LATERALITY: LEFT FLUID REMOVED: 350 cc FLUID COLOR: Serosanguinous DISPOSITION OF FLUID: Sent to the lab CATHETER/NEEDLE: 5 Fr centesis catheter needle The procedure, risks, limitations, and alternatives were discussed. All questions were answered. Written informed consent obtained. Accompanying paperwork was verified for accuracy. Directed history and physical exam performed prior to the procedure. Medication reconciliation was performed by nursing personnel. Procedure was performed using a cap, sterile gloves, a sterile sheet, sterile probe cover and sterile gel, hand hygiene and hospital-approved cutaneous antisepsis. Ultrasound survey demonstrates pleural effusion. 2% lidocaine was administered at the puncture site for local anesthesia. The centesis catheter needle was advanced into the effusion under real-time sonographic guidance. After removal of the needle, the catheter was attached to vacuum bottles and 350cc serosanguinous fluid was removed. The catheter was removed once no additional fluid could be removed and a dressing applied. Postprocedure images obtained. COMPLICATIONS: None EBL: None PATIENT CONDITION: Stable, unchanged. IMPRESSION: Successful ultrasound guided thoracentesis This procedure was performed by Mildred Beck PA-C Interpreted by: Alphonso Ambrocio MD Preliminary Report By: Mildred Beck PA-C Electronically signed By Alphonso Ambrocio MD Dictated Date: 05/05/2022 12:24:09 PM Prelim Date: 05/05/2022 12:26:11 PM Sign Date: 05/05/2022 3:10:24 PM Ordering Provider: SHARIF HERBERT [id number] Evaluation + Plan noteExtracted from: Title:Clinical Document Author:SHARIF HERBERT MD Date:05/05/22 [facility] Medicine Hospitalist History and Physical Date of Admission: Patient was seen and evaluated on 05/04/2022 Chief complaint: Chest pain History of present illness: History is taken from talking with emergency room physician as well as talking with the patient. Patient has a past medical history of tobacco abuse, IV drug abuse, hepatitis C, pneumonia, bacterial endocarditis, anemia. Patient was discharged from here on 04/21/2022 and during that admission the patient was diagnosed with endocarditis and started on IV antibiotics. Patient was seen by infectious disease. Patient was also seen by cardiology and cardiothoracic surgery. Patient had a PICC line placed and was discharged to the nursing facility to complete a 6-week course of nafcillin. Today at the nursing facility the patient started complaining of diffuse lower chest pain. Reports having ongoing shortness of breath that is unchanged. Denies a cough. Denies fevers, chills or night sweats. Since presenting to the emergency room the patient has been afebrile, hemodynamically stable, 97% room air. Labs and imaging of note: WBC 7.2 hemoglobin 10.1 which is around his baseline ESR greater than 130 BMP within normal limits LFTs within normal limits CRP 6.8 proBNP 66 High-sensitivity troponin less than 2.5 Chest x-ray showed moderate left pleural effusion. EKG showed sinus rhythm with no ST elevation or ST depression. In the emergency department the patient was given 40 mg IV Lasix. Past medical history: Bacteremia Endocarditis of tricuspid valve Hepatitis C IV drug abuse Overdose Tobacco use Hernia Family history: Hypertension Social history: Denies smoking cigarettes or alcohol consumption Medications: Home Medications (3) Active ceFAZolin 2 g/50 [id number]-[id number] dextrose intravenous solution 2 gram(s), Intramuscular, TID Lopressor 25mg--USE metoprolol tartrate 25 mg oral tablet 25 mg = 1 tab(s), Oral, qHS nafcillin 2 g injection 2 gram(s), IV Piggyback, q4hr Allergies: NKA Review of systems: See HPI for pertinent positives and negatives. All other review of systems have been reviewed and they are negative. Vitals Signs(Last 24 hrs)__Last Charted Minimum Maximum Temp37.2(MAY 04 11:27)37.2(MAY 04 11:27)37.2(MAY 04 11:27) Resp RateH 23(MAY 04 22:44)18(MAY 04 14:18)H 23(MAY 04 22:44) JUK181(MAY 04 22:44)119(MAY 04 14:18)134(MAY 04 20:17) DBP89(MAY 04 22:44)70(MAY 04 17:36)H 98(MAY 04 20:17) Physical examination: HEENT: No Pallor, No Icterus Cardiac: RRR, No murmur Lungs: Crackles in the bases no wheezing Abdomen: Soft Non tender Musculoskeletal: No joint pains or swelling Extremities: No edema, good pulses Neurological: Alert, no deficits Skin: No rash, no nodules Labs: WBC: 7.2 10^3/mcL (05/04/22 13:01:00) RBC: 3.68 10^6/mcL Low (05/04/22 13:01:00) Hgb: 10.1 G/dL Low (01/17/23 13:01:00) Hct: 31.2 % Low (05/04/22) MCV: 84.9 fL (05/04/22) MCH: 27.5 pg (05/04/22) MCHC: 32.5 G/dL (05/04/22) RDW: 21.4 % High (05/04/22) Platelet: 397 10^3/mcL (05/04/22) MPV: 6.8 fL (05/04/22) Monocyte Distribution Width: 19.52 (05/04/22) Neutrophil %: 64.3 % (05/04/22) Lymphocyte %: 21.3 % (05/04/22) Monocyte %: 8.5 % (05/04/22) Eosinophil %: 4.8 % (05/04/22) Basophil %: 1.1 % (05/04/22) Neutrophil, Absolute: 4.6 10^3/mcL (05/04/22) Lymphocyte, Absolute: 1.5 10^3/mcL (05/04/22) Monocyte, Absolute: 0.6 10^3/mcL (05/04/22) Eosinophil, Absolute: 0.3 10^3/mcL (05/04/22) Basophil, Absolute: 0.1 10^3/mcL (05/04/22) Erythrocyte Sed Rate: >130 High (05/04/22) Glucose Level: 81 mg/dL (05/04/22) Sodium Level: 139 mEq/L (05/04/22) Potassium Level: 3.9 mEq/L (05/04/22) Chloride: 105 mEq/L (05/04/22) CO2: 26 mEq/L (05/04/22) Electrolyte Balance: 8 mEq/L (05/04/22) BUN: 5 mg/dL Low (05/04/22 13::00) Creatinine Lvl (s): 0.53 mg/dL Low (05/04/22 13::00) BUN/Creatinine Ratio: 9.4 ratio Low (05/04/22 13::00) Calcium Lvl: 9.1 mg/dL (05/04/22 13::00) Total Protein: 8.8 G/dL High (05/04/22::00) Albumin Level: 2.7 G/dL Low (05/04/22::00) Globulin: 6.1 G/dL High (05/04/22 13::00) A/G Ratio: 0.4 ratio Low (05/04/22::) Bili Total: 0.3 mg/dL (05/04/22 13::) Alk Phos: 88 U/L (05/04/22::00) AST/SGOT: 21 U/L (05/04/22 13::00) ALT/SGPT: 9 U/L Low (05/04/22 13::00) GFR Non-: >60 (05/04/22::) GFR : >60 (05/04/22::) C-Reactive Protein: 6.8 mg/dL High (05/04/22 13::00) N-Terminal proBNP: 66 pg/mL (05/04/22 20:42:00) Troponin I High Sensitivity: <2.50 (05/04/22 13::) No qualifying data available. Assessment and plan: Patient presents from nursing facility on 05/04/2022 with chest pain. Atypical chest pain. His pain is located around the lower chest area and ribs. Most likely secondary to pleural effusion. Troponin is negative. We will get a repeat troponin. EKG did not show any concerning finding. Moderate left pleural effusion most likely secondary to infection from septic emboli. Patient does have significant risk for decompensation as he was here recently with sepsis and endocarditis. I will get a thoracentesis for diagnostic and therapeutic purposes. He did get a dose of IV Lasix. We will check repeat labs in the morning. Subacute bacterial endocarditis. Continue his IV antibiotics. He has a PICC line in place and is at the nursing facility receiving the antibiotics. Recent discharge he was to follow-up with infectious disease as well as cardiothoracic surgery. Chronic anemia. Stable Tobacco abuse. Patient declined nicotine patch History of IV drug abuse Hepatitis C. No acute issues Prophylaxis SCDs CODE STATUS full code [facility] 01-18-2023 Note Subjective: Patient seen for chest pain, left pleural effusion patient was examined and evaluated today, patient denies chest pain, no shortness of breath, no cough, no fever or chills, no abdominal pain, no nausea or vomiting, no headache, tolerating po well, bowel movement is normal, he feels weak tired and fatigue Vitals Signs(Last 24 hrs)__Last Charted Minimum Maximum Temp36.8(MAY 05 06:29)36.8(MAY 05:)37.2(MAY 04 11:27) Heart Qvir173(MAY 05 00:17)100(MAY 05 00:17)100(MAY 05:17) Resp Rate20(MAY 05 10:07)18(MAY 04 14:18)H 23(MAY 04 22:44) YHC822(MAY 05 10:07)105(MAY 05 06:29)136(MAY 05 00:17) DBP85(MAY 05 10:07)64(MAY 05 06:29)H 98(MAY 04 20:17) Physical examination: HEENT, is atraumatic normocephalic, pupils are equal, no pallor Neck supple no JVD Lungs breath sounds in lower lung sandoval, left more than right, no wheezes, no rhonchi, no accessory muscle use Heart S1-S2 regular Abdomen soft nontender nondistended bowel sounds are present all 4 quadrants Lower extremities show no edema, no cyanosis, pulses palpable +2 bilaterally Skin showed no rash Neurological examination patient is awake alert and oriented 3, cranial nerves are grossly intact, no focal neurological defect could be appreciated Assessment and plan: 1. Moderate left pleural effusion status post thoracocentesis where 350 mL were removed today. 2. Atypical chest pain. 3. Subacute bacterial endocarditis with MSSA bacteremia. 4. Chronic anemia. 5. Tobacco use. 6. History of IV drug abuse. 7. Hep C. Plan: 1. Continue with IV antibiotics continuous infusion of the nafcillin. 2. Follow analysis of the pleural fluid. 3. Infectious disease team was consulted for further evaluation of the left pleural effusion. 4. Continue to monitor patient clinically as well as his labs. Patient understood his plan of care all his questions were answered all his concerns were addressed. Labs: Basic Metabolic Profile Glucose Level: 126 mg/dL High (05/05/22 04:57:00) Glucose Level: 81 mg/dL (05/04/22 13:01:00) Sodium Level: 138 mEq/L (05/05/22 04:57:00) Sodium Level: 139 mEq/L (05/04/22 13:01:00) Potassium Level: 3.4 mEq/L Low (05/05/22 04:57:00) Potassium Level: 3.9 mEq/L (05/04/22 13:01:00) Chloride: 101 mEq/L (05/05/22 04:57:00) Chloride: 105 mEq/L (05/04/22 13:01:00) CO2: 30 mEq/L (05/05/22 04:57:00) CO2: 26 mEq/L (05/04/22 13:01:00) BUN/Creatinine Ratio: 13 ratio (05/05/22 04:57:00) BUN/Creatinine Ratio: 9.4 ratio Low (05/04/22 13:01:00) Complete Blood Count WBC: 7.6 10^3/mcL (05/05/22 04:57:00) WBC: 7.2 10^3/mcL (05/04/22 13:01:00) RBC: 3.51 10^6/mcL Low (05/05/22 04:57:00) RBC: 3.68 10^6/mcL Low (05/04/22 13:01:00) Hgb: 9.8 G/dL Low (05/05/22 04:57:00) Hgb: 10.1 G/dL Low (05/04/22 13:01:00) Hct: 29.6 % Low (05/05/22 04:57:00) Hct: 31.2 % Low (05/04/22 13:01:00) MCV: 84.4 fL (05/05/22 04:57:00) MCV: 84.9 fL (05/04/22 13:01:00) MCH: 27.9 pg (05/05/22 04:57:00) MCH: 27.5 pg (05/04/22 13:01:00) MCHC: 33 G/dL (05/05/22 04:57:00) MCHC: 32.5 G/dL (05/04/22 13:01:00) RDW: 20.7 % High (05/05/22 04:57:00) RDW: 21.4 % High (05/04/22 13:01:00) Platelet: 380 10^3/mcL (05/05/22 04:57:00) Platelet: 397 10^3/mcL (05/04/22 13:01:00) MPV: 7.1 fL (05/05/22 04:57:00) MPV: 6.8 fL (05/04/22 13:01:00) Medications (10) Active Scheduled: (1) metoprolol tartrate 25 mg tablet 25 mg 1 tab(s), Oral, qHS Continuous: (1) NS (0.9% nacl) 500 mL + nafcillin 12 gram(s) 500 mL, Intravenous, 20.83 mL/hr PRN: (8) acetaminophen 325 mg Tablet 650 mg 2 tab(s), Oral, q4h acetaminophen 325 mg Tablet 650 mg 2 tab(s), Oral, q4h albuterol - ipratropium 2.5 mg-0.5 mg/3 mL Inhal Milagro UD 3 mL, Inhalation, q4hRT guaifenesin 100 mg/5 mL 120 mL liquid 200 mg 10 mL, Oral, q4h melatonin 3 mg tablet 3 mg 1 tab(s), Oral, qHS ondansetron 2 mg/ 1 mL 2 mL INJ 4 mg 2 mL, IV Push, q4h polyethylene glycol 3350 - UD packet 17 gram(s) 15 mL, Oral, qDay tramadol 50 mg Tablet 50 mg 1 tab(s), Oral, q6h Signature: Ludivina Andrade MD Digitally Signed by LUDIVINA ANDRADE MD on 05/05/2022 11:10 AM [id number] Note ORIGINAL EXAMINATION: ONE XRAY VIEW OF THE CHEST05/05/2022 10:36 am COMPARISON: Chest x-ray 05/04/2022 CT chest 04/13/2022 HISTORY: ORDERING SYSTEM PROVIDED HISTORY: Reason for Exam: Post LEFT Thora FINDINGS: Right PICC line terminating at the cavoatrial junction. Additional tubular medical reimbursement specialist overlies the right upper chest, likely external to the patient. Cardiomediastinal contours are within normal limits. There are multiple cavitary lesions throughout the bilateral lungs which correlate to the prior CT exam. No pneumothorax. Small left pleural effusion. No right pleural effusion. No acute osseous abnormalities. IMPRESSION: No pneumothorax. Interval decrease in left-sided pleural effusion following thoracentesis. Other lung findings are probably unchanged. I have personally reviewed the images of this examination and agree with the resident's findings and interpretations. Interpreted by: Lidia Boykin MD Preliminary Report By: Adan Pendleton Electronically signed By Lidia Boykin MD Dictated Date: 05/05/2022 10:37:25 AM Prelim Date: 05/05/2022 10:57:05 AM Sign Date: 05/05/2022 10:57:05 AM Ordering Provider: MILDRED BECK [id number] Note ORIGINAL EXAMINATION: ONE XRAY VIEW OF THE CHEST05/05/2022 10:36 am COMPARISON: Chest x-ray 05/04/2022 CT chest 04/13/2022 HISTORY: ORDERING SYSTEM PROVIDED HISTORY: Reason for Exam: Post LEFT Thora FINDINGS: Right PICC line terminating at the cavoatrial junction. Additional tubular medical reimbursement specialist overlies the right upper chest, likely external to the patient. Cardiomediastinal contours are within normal limits. There are multiple cavitary lesions throughout the bilateral lungs which correlate to the prior CT exam. No pneumothorax. Small left pleural effusion. No right pleural effusion. No acute osseous abnormalities. IMPRESSION: No pneumothorax. Interval decrease in left-sided pleural effusion following thoracentesis. Other lung findings are probably unchanged. I have personally reviewed the images of this examination and agree with the resident's findings and interpretations. Interpreted by: Lidia Boykin MD Preliminary Report By: Adan Pendleton Electronically signed By Lidia Boykin MD Dictated Date: 05/05/2022 10:37:25 AM Prelim Date: 05/05/2022 10:57:05 AM Sign Date: 05/05/2022 10:57:05 AM Ordering Provider: MILDRED [facility]01[facility]18[facility]23 Note IR Brief Post Procedure Note Preprocedure Dx: Pleural Effusion Rib/trunk pain-swelling; Abnormal diagnostic test; PLEURAL EFFUSION Post Procedure Dx: Same Procedure: 1. Ultrasound Guided LEFT Thoracentesis Audio Specialist: Mildred Beck PA-C Harvest Worker: None Anesthesia: Local EBL: Minimal Complications: No immediate complications suspected Status: Stable Findings: 1. 350CC SEROSANGUINOUS fluid drained from LEFT pleural space. 2. Patient tolerated the procedure well with minimal discomfort. Plan: 1. CXR 2. Fluid sent to lab Full report to follow. Orders in Cerner. Mildred Beck PA-C Interventional Radiology Pager [phone] IR Dept [id number] Available on [employer] Digitally Signed by MILDRED BECK PA-C on 05/05/2022 10:18 AM [id number] Note ORIGINAL PROCEDURE: ULTRASOUND GUIDED THORACENTESIS CLINICAL STATEMENT: Shortness of breath, pleuritic chest pain, pleural effusion LATERALITY: LEFT FLUID REMOVED: 350 cc FLUID COLOR: Serosanguinous DISPOSITION OF FLUID: Sent to the lab CATHETER/NEEDLE: 5 Fr centesis catheter needle The procedure, risks, limitations, and alternatives were discussed. All questions were answered. Written informed consent obtained. Accompanying paperwork was verified for accuracy. Directed history and physical exam performed prior to the procedure. Medication reconciliation was performed by nursing personnel. Procedure was performed using a cap, sterile gloves, a sterile sheet, sterile probe cover and sterile gel, hand hygiene and hospital-approved cutaneous antisepsis. Ultrasound survey demonstrates pleural effusion. 2% lidocaine was administered at the puncture site for local anesthesia. The centesis catheter needle was advanced into the effusion under real-time sonographic guidance. After removal of the needle, the catheter was attached to vacuum bottles and 350cc serosanguinous fluid was removed. The catheter was removed once no additional fluid could be removed and a dressing applied. Postprocedure images obtained. COMPLICATIONS: None EBL: None PATIENT CONDITION: Stable, unchanged. IMPRESSION: Successful ultrasound guided thoracentesis This procedure was performed by Mildred Beck PA-C Interpreted by: Alphonso Ambrocio MD Preliminary Report By: Mildred Beck PA-C Electronically signed By Alphonso Ambrocio MD Dictated Date: 05/05/2022 12:24:09 PM Prelim Date: 05/05/2022 12:26:11 PM Sign Date: 05/05/2022 3:10:24 PM Ordering Provider: SHARIF [facility]01-18-2023 Note US Procedure Record Summary Primary Physician: MILDRED BECK PA-C Finalized Date/Time: 05/05/22 10:09:18 Pt. Name: SAM JIMENEZ Coby /Sex: 1995 Male Med Rec #: [id number] Physician: SHARIF HERBERT MD Financial #: [id number] Pt. Type: I Room/Bed: [facility]/ Admit/Disch: 05/04/22 11:26:54 - Institution: Allergies identified in patient's electronic medical record at time of printing on 05/05/22 Entry 1 Substance NKA Reaction Type Allergy Last Modified By: CANDELARIO Whyte 12/25/15 09:20:06 Case Attendance- US Entry 1 Entry 2 Case Attendee MILDRED BECK TECH Valerie A PA-C Role Performed Primary Surgeon Cable Engineer Outside Plant Details Time In 05/05/22 10:00:00 05/05/22 10:00:00 Time Out 05/05/22 10:04:00 05/05/22 10:04:00 Procedure/Preference US Drainage Lung Left US Drainage Lung Left Card (SN) (SN) Last Modified By: GABRIELE Zuluaga TECH Valerie A 05/05/22 10:05:17 05/05/22 10:05:17 Radiology Procedures- US Entry 1 Procedure/Preference US Drainage Lung Left Actual Procedure US DRAINAGE LUNG LEFT Card (SN) Primary Procedure Yes Primary Surgeon MILDRED BECK PA-C Anesthesia/Sedation Local Type Additional Procedure Times Start 05/05/22 10:00:00 Stop 05/05/22 10:04:00 Specialty Service SN Radiology Procedure EBL 0 mL Last Modified By: GABRIELE Zuluaga 05/05/22 10:06:39 Cultures and Specimens- US Entry 1 Kind Specimen Type Fluid Last Modified By: GABRIELE Zuluaga 05/05/22 10:02:41 General Case Data- US Entry 1 Case Information Room [facility] Receiving Case Level None Wound Class None Specialty SN Radiology Procedure ASA Class None Diagnosis Preop Diagnosis lt pl effusion Postop Same As Preop Yes Postop Diagnosis lt pl effusion Last Modified By: GABRIELE Zuluaga 05/05/22 10:03:37 Medication Administration- US Entry 1 Medication 2% Lidocaine Time Administered 05/05/22 10:01:00 Route of Admin Local Dose 8 VORB Administered by Yes Administered by: MILDRED BECK Physician? PA-C Last Modified By: GABRIELE Zuluaga 05/05/22 10:01:27 Case Times- US Entry 1 Patient In Procedure Patient In OR 05/05/22 10:00:00 Patient Out of OR 05/05/22 10:04:00 Procedure Start/Stop Procedure Start Time 05/05/22 10:00:00 Procedure Stop Time 05/05/22 10:04:00 Last Modified By: GABRIELE Zuluaga 05/05/22 10:04:34 Immediate Post Procedure Note- US Entry 1 Immediate Post Yes Procedure Note displayed for Physician to review Closure Technique Closure Technique Other than Primary Last Modified By: GABRIELE Zuluaga 05/05/22 10:02:52 Immediate Post Procedure Note- US Signed By: MILDRED BECK PA-C 05/05/22 10:07 Allergy Information- US Entry 1 Allergies Reviewed? Yes Allergies Reviewed Medical Record With Last Modified By: GABRIELE Zuluaga 05/05/22 09:59:59 Radiology Protocols/Time Out- US Entry 1 Preprocedure Clinician Verifies Correct patient ID When Clinically Confirmation of correct using name & date Indicated side(s) and site(s), or MRN, Accurate Correct diagnostic and procedure, complete radiology tests Informed Consent, H & P available, Required update immediately blood products, prior to procedure, if implants, devices applicable, Sync button and/or special on equipment available, Preop antibiotics sent with patient/available in OR OR/Procedure Room/Bedside Time 05/05/22 10:00:00 Clinician Verifies Correct patient identity including EMR & records using name and date or medical record number, Accurate procedure consent form, Correct patient position, Necessary equipment is available, Anticipated non-routine events with surgical team (case duration, estimated blood loss, patient specific concerns)., Levy patient factors for recovery and management identified with surgical team. When Applicable Confirmation correct Team Members MILDRED BECK side and site marked, Present for Time Out LENIN-CZan TECH Relevant images and Chloe A results are properly labeled and appropriately displayed, Confirm/obtain preop antibiotic order., Alcohol based prep dry, Double verification of sterility indicators complete Instrument Sterility Procedure US Drainage Lung Left (SN) Last Modified By: GABRIELE Zuluaga Chloe A 05/05/22 10:01:09 Skin Prep - US Entry 1 Procedure US Drainage Lung Left (SN) Skin Prep Prep Area Back Side Left By MILRDED BECK Prep Agents Chloraprep PA-C Hair Removal Method N/A Last Modified By: GABRIELE Zuluaga Chloe A 05/05/22 10:09:12 Patient Positioning- US Entry 1 Procedure US Drainage Lung Left Body Position Upright (SN) Feet Uncrossed? Yes Pressure Points Yes Checked Last Modified By: GABRIELE Zuluaga Chloe A 05/05/22 10:02:34 Radiology Procedure Plan - US Entry 1 Radiology - Nursing Care Plan Outcome Statement The patient receives Cont. appropriate medication(s), safely administered during the perioperative/invasive period., The patient is free from signs and symptoms of injury caused by extraneous objects (equipment, instrumentation, sponges, or sharps)., The patient is free from signs and symptoms of electrical injury., The patient is at or returning to normothermia at the conclusion of the immediate postoperative/invasive period., The patient is free from signs and symptoms of laser injury. Radiology - Action Plan Action Plan - Patient demonstrates Outcome Statement knowledge of the expected reseponses to the invasive procedure, Patient's value system, lifestyle, ethnicity, and culture are considered, respected, and incorporated in the perioperative plan of care., Patient is free from signs and symptoms of infection., Patient is free from signs and symptoms of injury related to positioning., Patient receives appropriate medication(s), safely administered during the perioperative period., Patient is free from signs and symptoms of injury caused by extraneous objects (equipment, instrumentation, sponges, or sharps)., Patient is free from signs and symptoms of electrical injury. Outcomes Met? Yes Hospital Recruiter GABRIELE Zuluaga Completing Procedure Plan Last Modified By: GABRIELE Zuluaga 05/05/22 10:03:21 Radiology Lines and Procedures- US Entry 1 Radiology Sedation Case Times Sedation Total Time 0 Radiology - Fluid/Drainage Fluid Amount mL: 350 Fluid Description serous carrera RAD - US Silver Star, Guidewires, Cath.... Catheters M-Drain Centesis Catheter 5 Fr x 7 cm Radiology Urinary Catheter Radiology Procedure Site Dressing Type Bandaids Last Modified By: GABRIELE Zuluaga 05/05/22 10:06:49 Transfer Post Procedure- US Entry 1 RAD - Transport to Recovery Patient Transported IV Via Patient Bed With Post-op Destination Patient Room Post Procedure Time Out Double Verification Yes Date/Time Verified 05/05/22 10:04:00 of ID band on patient Completed Verfied ID Band on MILDRED BECK by Zan CARRILLO TECH Valerie A Last Modified By: GABRIELE Zuluaga 05/05/22 10:04:59 Case Comments Finalized By: GABRIELE Zuluaga Document Signatures Signed By: GABRIELE Zuluaga 05/05/22 10:09 [id number] History and physical note [facility] Medicine Hospitalist History and Physical Date of Admission: Patient was seen and evaluated on 05/04/2022 Chief complaint: Chest pain History of present illness: History is taken from talking with emergency room physician as well as talking with the patient. Patient has a past medical history of tobacco abuse, IV drug abuse, hepatitis C, pneumonia, bacterial endocarditis, anemia. Patient was discharged from here on 04/21/2022 and during that admission the patient was diagnosed with endocarditis and started on IV antibiotics. Patient was seen by infectious disease. Patient was also seen by cardiology and cardiothoracic surgery. Patient had a PICC line placed and was dischargedto the nursing facility to complete a 6-week course of nafcillin. Today at the nursing facility the patient started complaining of diffuse lower chest pain. Reports having ongoing shortness of breath that is unchanged. Denies a cough. Denies fevers, chills or nightsweats. Since presenting to the emergency room the patient has been afebrile, hemodynamically stable, 97% room air. Labs and imaging of note: WBC 7.2 hemoglobin 10.1 which is around his baseline ESR greater than 130 BMP within normal limits LFTs within normal limits CRP 6.8 proBNP 66 High-sensitivity troponin less than 2.5 Chest x-ray showed moderate left pleural effusion. EKG showed sinus rhythm with no ST elevation or ST depression. In the emergency department the patient was given 40 mg IV Lasix. Past medical history: Bacteremia Endocarditis of tricuspid valve Hepatitis C IV drug abuse Overdose Tobacco use Hernia Family history: Hypertension Social history: Denies smoking cigarettes or alcohol consumption Medications: Home Medications (3) Active ceFAZolin 2 g/50 [id number] dextrose intravenous solution 2 gram(s), Intramuscular, TID Lopressor 25mg--USE metoprolol tartrate 25 mg oral tablet 25 mg = 1 tab(s), Oral, qHS nafcillin 2 g injection 2 gram(s), IV Piggyback, q4hr Allergies: NKA Review of systems: See HPI for pertinent positives and negatives. All other review of systems have been reviewed and they are negative. Vitals Signs(Last 24 hrs)__Last Charted Minimum Maximum Temp37.2(MAY 04 11:27)37.2(MAY 04 11:27)37.2(MAY 04 11:27) Resp RateH 23(MAY 04 22:44)18(MAY 04 14:18)H 23(MAY 04 22:44) KBW795(MAY 04 22:44)119(MAY 04 14:18)134(MAY 04 20:17) DBP89(MAY 04 22:44)70(MAY 04 17:36)H 98(MAY 04 20:17) Physical examination: HEENT: No Pallor, No Icterus Cardiac: RRR, No murmur Lungs: Crackles in the bases no wheezing Abdomen: Soft Non tender Musculoskeletal: No joint pains or swelling Extremities: No edema, good pulses Neurological: Alert, no deficits Skin: No rash, no nodules Labs: WBC: 7.2 10^3/mcL (05/04/22 13:01:00) RBC: 3.68 10^6/mcL Low (05/04/22 13:01:00) Hgb: 10.1 G/dL Low (05/04/22) Hct: 31.2 % Low (05/04/22) MCV: 84.9 fL (05/04/22) MCH: 27.5 pg (05/04/22) MCHC: 32.5 G/dL (05/04/22) RDW: 21.4 % High (05/04/22) Platelet: 397 10^3/mcL (05/04/22) MPV: 6.8 fL (05/04/22) Monocyte Distribution Width: 19.52 (05/04/22) Neutrophil %: 64.3 % (05/04/22) Lymphocyte %: 21.3 % (05/04/22) Monocyte %: 8.5 % (05/04/22) Eosinophil %: 4.8 % (05/04/22) Basophil %: 1.1 % (05/04/22) Neutrophil, Absolute: 4.6 10^3/mcL (05/04/22) Lymphocyte, Absolute: 1.5 10^3/mcL (05/04/22) Monocyte, Absolute: 0.6 10^3/mcL (05/04/22) Eosinophil, Absolute: 0.3 10^3/mcL (05/04/22) Basophil, Absolute: 0.1 10^3/mcL (05/04/22) Erythrocyte Sed Rate: >130 High (05/04/22) Glucose Level: 81 mg/dL (05/04/22) Sodium Level: 139 mEq/L (05/04/22) Potassium Level: 3.9 mEq/L (05/04/22) Chloride: 105 mEq/L (05/04/22) CO2: 26 mEq/L (01/17/23 13:01:00) Electrolyte Balance: 8 mEq/L (05/04/22 13:01:00) BUN: 5 mg/dL Low (05/04/22 13:01:00) Creatinine Lvl (s): 0.53 mg/dL Low (05/04/22 13::00) BUN/Creatinine Ratio: 9.4 ratio Low (05/04/22 13:01:00) Calcium Lvl: 9.1 mg/dL (05/04/22 13::00) Total Protein: 8.8 G/dL High (05/04/22 13::00) Albumin Level: 2.7 G/dL Low (05/04/22 13::00) Globulin: 6.1 G/dL High (05/04/22::) A/G Ratio: 0.4 ratio Low (05/04/22 13::) Bili Total: 0.3 mg/dL (05/04/22 13::00) Alk Phos: 88 U/L (05/04/22::) AST/SGOT: 21 U/L (05/04/22 13::00) ALT/SGPT: 9 U/L Low (05/04/22 13::00) GFR Non-: >60 (05/04/22::00) GFR : >60 (05/04/22 13::) C-Reactive Protein: 6.8 mg/dL High (05/04/22 13:01:00) N-Terminal proBNP: 66 pg/mL (05/04/22 20:42:00) Troponin I High Sensitivity: <2.50 (05/04/22 13::) No qualifying data available. Assessment and plan: Patient presents from nursing facility on 05/04/2022 with chest pain. Atypical chest pain. His pain is located around the lower chest area and ribs. Most likely secondary to pleural effusion. Troponin is negative. We will get a repeat troponin. EKG did not show any concerning finding. Moderate left pleural effusion most likely secondary to infection from septic emboli. Patient does have significant risk for decompensation as he was here recently with sepsis and endocarditis. I will get a thoracentesis for diagnostic and therapeutic purposes. He did get a dose of IV Lasix. We will check repeat labs in the morning. Subacute bacterial endocarditis. Continue his IV antibiotics. He has a PICC line in place and is atthe nursing facility receiving the antibiotics. Recent discharge he was to follow-up with infectious disease as well as cardiothoracic surgery. Chronic anemia. Stable Tobacco abuse. Patient declined nicotine patch History of IV drug abuse Hepatitis C. No acute issues Prophylaxis SCDs CODE STATUS full code Digitally Signed by SHARIF HERBERT MD on 05/05/2022 12:24 AM [id number] Hospital Discharge instructions Follow Up Care 05/04/2022 11:27:31 With:[facility], Address: When: Unknown With:TANYA WESTFALL BA, MD, Infectious Disease, Infectious Disease Group Address: [facility] [place] [address] [place] [address]- When: only if needed With:REBA CHIRINOS MD Address: [address] [place] [phone] When: Unknown Comments:Call for a follow up appointment within 1 week [facility] 01-17-2023 Note ORIGINAL EXAMINATION: TWO XRAY VIEWS OF THE CHEST 05/04/2022 12:03 pm COMPARISON: Prior CT chest dated 04/13/2022. Prior chest x-ray dated 12/06/2019. HISTORY: ORDERING SYSTEM PROVIDED HISTORY: Reason for Exam: pain FINDINGS: The cardiomediastinal silhouette demonstrates a normal appearance. Right-sided PICC line is seen with the tip seen at the caval atrial junction. Patchy opacities are seen of the lungs bilaterally consistent with previously seen numerous centrally cavitary nodules on prior CTA chest. There has been interval development of a moderate left-sided pleural effusion. No free air seen beneath the level of the diaphragm. The bony thorax appears acutely intact. IMPRESSION: Interval development of a moderate left pleural effusion. Redemonstration of nodular opacities as seen on prior CTA chest. Interpreted by: Sharif Nelson MD Preliminary Report By: Sharif Nelson MD Electronically signed By Sharif Nelson MD Dictated Date: 05/04/2022 12:17:51 PM Prelim Date: 05/04/2022 12:19:51 PM Sign Date: 05/04/2022 12:19:51 PM Ordering Provider: [facility]01-17-2023 Note ORIGINAL EXAMINATION: TWO XRAY VIEWS OF THE CHEST 05/04/2022 12:03 pm COMPARISON: Prior CT chest dated 04/13/2022. Prior chest x-ray dated 12/06/2019. HISTORY: ORDERING SYSTEM PROVIDED HISTORY: Reason for Exam: pain FINDINGS: The cardiomediastinal silhouette demonstrates a normal appearance. Right-sided PICC line is seen with the tip seen at the caval atrial junction. Patchy opacities are seen of the lungs bilaterally consistent with previously seen numerous centrally cavitary nodules on prior CTA chest. There has been interval development of a moderate left-sided pleural effusion. No free air seen beneath the level of the diaphragm. The bony thorax appears acutely intact. IMPRESSION: Interval development of a moderate left pleural effusion. Redemonstration of nodular opacities as seen on prior CTA chest. Interpreted by: Sharif Nelson MD Preliminary Report By: Sharif Nelson MD Electronically signed By Sharif Nelson MD Dictated Date: 05/04/2022 12:17:51 PM Prelim Date: 05/04/2022 12:19:51 PM Sign Date: 05/04/2022 12:19:51 PM Ordering Provider: [facility]01-04-2023 Discharge summary Date of Service 04/21/2022 Discharge Diagnosis 1. Sepsis present on admission. 2. Subacute bacterial endocarditis. 3. MSSA bacteremia. 4. Hypomagnesemia. 5. Microcytic anemia. 6. History of IV drug abuse. 7. Smoking. 8. HCV 1. Endocarditis of tricuspid valve (I07.9 - ICD-10-CM) 2. Bacteremia (R78.81 - ICD-10-CM) 3. Tobacco use (Z72.0 - ICD-10-CM) 4. Hepatitis C (B19.20 - ICD-10-CM) 5. 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 - ICD-10-CM) Tachycardia, unspecified (R00.0 - ICD-10-CM) Iron deficiency anemia, unspecified (D50.9 - ICD-10-CM) Chronic viral hepatitis C (B18.2 - ICD-10-CM) Additional Orders: Other status: Discharge,04/21/22 11:25:00 EST, Discharged to: [facility](Complete) Ordered: Transfer of Care Activity,Activity As Tolerated, 04/21/22 11:25:00 EST Ordered: Transfer of Care Code Status,Full Code, Constant Order Ordered: Transfer of Care Diet,Type of Diet: Regular Diet, 04/21/22 11:25:00 EST Ordered: Transfer of Care IV/PICC,Routine care per facility guidelines., 04/21/22 11:25:33 EST Ordered: Transfer of Care Orders Electronically Signed By,04/21/22 11:25:00 EST, LUDIVINA ANDRADE MD Ordered: Transfer of Care Physician Follow-up,Follow-up with: TANYA WESTFALL BA, MD, within: 2-3 weeks, 04/21/22 11:25:00 EST Ordered: Transfer of Care Prognosis,Fair, Patient Aware: Yes Ordered: Transfer of Care Rehab Potential,Rehab potential fair, 04/21/22 11:25:33 EST Ordered: nafcillin 2 g injection,Dose : 2 gram(s) =, IV Piggyback, q4hr, 0 Refill(s), 53.8 Discontinued: naproxen 250 mg oral tablet,Dose : 250 mg = 1 tab(s), Oral, qDay, PRN as needed for pain, 0 Refill(s) Hospital Course 27-year-old male with multiple medical problems listed above presented to the hospital with concerns of endocarditis, patient was started on the IV antibiotics empirically, blood culture showed MSSA,infectious disease team recommended echocardiogram which showed vegetation on the tricuspid valve, YESSENIA was done, and it showed 0.7 x 1.1 mobile vegetation on the right atrial aspect anterior left let, cardiology team evaluated the patient as well as cardiothoracic surgery team, and they recommendedlong-term IV antibiotics. Patient had a PICC line today, and since his work-up was completed, he will be discharged to [facility] today for completion of the IV antibiotics which was recommended byinfectious disease team to be for 6 weeks of nafcillin. Patient was examined and evaluated by me today he was awake alert and oriented, denying any chest pain shortness breath cough fever chills, denied any abdominal pain nausea or vomiting, no recliners or dizziness, patient is tolerating diet fairly well and he will be discharged home today. Allergies NKA Procedures YESSENIA, PICC line placement Consults Consult to Physician - Ordered -- 04/13/22 22:03:00 DAVID ALVAREZ BADIE BA MD, Routine, Concern for septic emboli Consult to Physician (Physician Consult) - Ordered -- 04/17/22 12:46:00 JIM ALVAREZ DAVID A MD, Routine, Tricuspid valve endocarditis with 1 cm vegetation Imaging Results and Diagnostics Please see Cerner Objective Vitals and Measurements T: 36.9 C (Oral) TMIN: 36.5 C (Oral) TMAX: 37.1 C (Oral) HR: 106 RR: 16 BP: 137/96 SpO2: 97% Weight Dosing Weight: 53.8 kg (04/13/22) Head: atraumatic normocephalic Neck: supple no JVD Lungs: clear to auscultation bilaterally, no wheezes no accessory muscle use. Heart: S1-S2 regular rate and rhythm, no murmurs Abdomen: soft nontender nondistended, bowel sounds are present all 4 quadrants Lower extremities: no cyanosis, no chronic skin changes, pulse palpable +1 bilaterally, no edema Skin: showed no rash Neurological: patient is awake alert and oriented 3, no focal neurological deficit Pending Labs and Studies As per ID Code Status Full code Admission Date 04/13/2022 Discharge Date 04/21/2022 Medications New Prescription nafcillin (nafcillin 2 g injection)2 gram(s) IV Piggyback every 4 hours for 6 week(s). Discontinued naproxen (naproxen 250 mg oral tablet)1 tab(s) by mouth once a day as needed as needed for pain. Follow Up Follow Up with [facility] care, report to [phone] When Within 1-2 days Follow Up with YAZMIN FERNANDEZ MD, Thoracic Service, Vascular Service When In 4 weeks Where: [address] [facility] [place] [address]- [phone] Follow Up with TANYA WESTFALL BA, MD, Infectious Disease, Infectious Disease Group When In 4 weeks Where: [facility] [place] [address] [place] [address]- Follow Up Appointments No qualifying data available. Follow Up Labs/Studies Discharge Labs No Follow-up Labs Discharge Studies No Follow-up Studies Discharge Diet Transfer of Care Diet - Ordered -- Type of Diet: Regular Diet, 04/21/22 11:25:00 EST Discharge Activity Transfer of Care Activity - Ordered -- Activity As Tolerated, 04/21/22 11:25:00 EST Condition on Discharge Stable Readmission Risk/Palliative Score No qualifying data available. Discharge Disposition Rehab Time Spent 35 minutes Digitally Signed by LUDIVINA ANDRADE MD on 04/21/2022 03:43 PM [id number] Discharge instructions Patient Education 04/21/2022 10:30:39 PICC Home Care Guide PICC Home Care Guide A peripherally inserted central catheter (PICC) is a form of IV access that allows medicines and IVfluids to be quickly distributed throughout the body. The PICC is a long, thin, flexible tube (catheter) that is inserted into a vein in the upper arm. The catheter ends in a large vein in the chest (superior vena cava, or SVC). After the PICC is inserted, a chest X-ray may be done to make sure that it is in the correct place. A PICC may be placed for different reasons, such as: To give medicines and liquid nutrition. To give IV fluids and blood products. If there is trouble placing a peripheral intravenous (PIV) catheter. If taken care of properly, a PICC can remain in place for several months. Having a PICC can also allow a person to go home from the hospital sooner. Medicine and PICC care can be managed at home by afamily member, caregiver, or home health care team. What are the risks? Generally, having a PICC is safe. However, problems may occur, including: A blood clot (thrombus) forming in or at the tip of the PICC. A blood clot forming in a vein (deep vein thrombosis) or traveling to the lung (pulmonary embolism). Inflammation of the vein (phlebitis) in which the PICC is placed. Infection. Central line associated blood stream infection (CLABSI) is a serious infection that often requires hospitalization. PICC movement (malposition). The PICC tip may move from its original position due to excessive physical activity, forceful coughing, sneezing, or vomiting. A break or cut in the PICC. It is important not to use scissors near the PICC. Nerve or tendon irritation or injury during PICC insertion. How to take care of your PICC Preventing problems You and any caregivers should wash your hands often with soap. Wash hands: ?Before touching the PICC line or the infusion device. ?Before changing a bandage (dressing). Flush the PICC as told by your health care provider. Let your health care provider know right away if the PICC is hard to flush or does not flush. Do not use force to flush the PICC. Do not use a syringe that is less than 10 mL to flush the PICC. Avoid blood pressure checks on the arm in which the PICC is placed. Never pull or tug on the PICC. Do not take the PICC out yourself. Only a trained clinical professional should remove the PICC. Use clean and sterile supplies only. Keep the supplies in a dry place. Do not reuse needles, syringes, or any other supplies. Doing that can lead to infection. Keep pets and children away from your PICC line. Check the PICC insertion site every day for signs of infection. Check for: ?Leakage. ?Redness, swelling, or pain. ?Fluid or blood. ?Warmth. ?Pus or a bad smell. PICC dressing care Keep your PICC bandage (dressing) clean and dry to prevent infection. Do not take baths, swim, or use a hot tub until your health care provider approves. Ask your healthcare provider if you can take showers. You may only be allowed to take sponge baths for bathing. When you are allowed to shower: ?Ask your health care provider to teach you how to wrap the PICC line. ?Cover the PICC line with clear plastic wrap and tape to keep it dry while showering. Follow instructions from your health care provider about how to take care of your insertion site and dressing. Make sure you: ?Wash your hands with soap and water before you change your bandage (dressing). If soap and water are not available, use hand seamer operator. ?Change your dressing as told by your health care provider. ?Leave stitches (sutures), skin glue, or adhesive strips in place. These skin closures may need to stay in place for 2 weeks or longer. If adhesive strip edges start to loosen and curl up, you may trim the loose edges. Do not remove adhesive strips completely unless your health care provider tells you to do that. Change your PICC dressing if it becomes loose or wet. General instructions Carry your PICC identification card or wear a medical alert bracelet at all times. Keep the tube clamped at all times, unless it is being used. Carry a smooth-edge clamp with you at all times to place on the tube if it breaks. Do not use scissors or sharp objects near the tube. You may bend your arm and move it freely. If your PICC is near or at the bend of your elbow, avoid activity with repeated motion at the elbow. Avoid lifting heavy objects as told by your health care provider. Keep all follow-up visits as told by your health care provider. This is important. Disposal of supplies Throw away any syringes in a disposal container that is meant for sharp items (sharps container). You can buy a sharps container from a pharmacy, or you can make one by using an empty hard plastic bottle with a cover. Place any used dressings or infusion bags into a plastic bag. Throw that bag in the trash. Contact a health care provider if: You have pain in your arm, ear, face, or teeth. You have a fever or chills. You have redness, swelling, or pain around the insertion site. You have fluid or blood coming from the insertion site. Your insertion site feels warm to the touch. You have pus or a bad smell coming from the insertion site. Your skin feels hard and raised around the insertion site. Get help right away if: Your PICC is accidentally pulled all the way out. If this happens, cover the insertion site with a bandage or gauze dressing. Do not throw the PICC away. Your health care provider will need to check it. Your PICC was tugged or pulled and has partially come out. Do not push the PICC back in. You cannot flush the PICC, it is hard to flush, or the PICC leaks around the insertion site when itis flushed. You hear a flushing sound when the PICC is flushed. You feel your heart racing or skipping beats. There is a hole or tear in the PICC. You have swelling in the arm in which the PICC was inserted. You have a red streak going up your arm from where the PICC was inserted. Summary A peripherally inserted central catheter (PICC) is a long, thin, flexible tube (catheter) that is inserted into a vein in the upper arm. The PICC is inserted using a sterile technique by a specially trained nurse or physician. Only a trained clinical professional should remove it. Keep your PICC identification card with you at all times. Avoid blood pressure checks on the arm in which the PICC is placed. If cared for properly, a PICC can remain in place for several months. Having a PICC can also allow a person to go home from the hospital sooner. This information is not intended to replace advice given to you by your health care provider. Make sure you discuss any questions you have with your health care provider. Document Released: 10/09/2003 Document Revised: 03/17/2018 Document Reviewed: 05/07/2017 [employer] Patient Education 2020 [employer]. Follow Up Care 04/13/2022 21:29:52 With:[facility] for [facility] care, report to [phone] Address:Unknown When:1-2 days With:YAZMIN FERNANDEZ MD, Thoracic Service, Vascular Service Address: [address] [facility] [address] [place] [address]- [phone] When:Within 4 Week(s) With:TANYA WESTFALL BA, MD, Infectious Disease, Infectious Disease Group Address: [facility] [place] [address] [place] [address]- When:Within 4 Week(s) [facility] 01-04-2023 Note Discharge Instructions Thank you for allowing [facility] to assist you with your healthcare needs. The following is importantdischarge information regarding your hospital visit. Your Care Team PHYSICIAN, NONE Your Diagnosis Endocarditis of tricuspid valve Bacteremia Tobacco use Hepatitis C IV drug abuse What to do next Follow Up Appointments Follow Up with [facility] care, report to [phone] When Within 1-2 days Follow Up with YAZMIN FERNANDEZ MD, Thoracic Service, Vascular Service When In 4 weeks Where: [address] [facility] [place] [address]- [phone] Follow Up with TANYA WESTFALL BA, MD, Infectious Disease, Infectious Disease Group When In 4 weeks Where: [facility] [place] [address] [place] [address]- The Following Activity and Diet Have Been Ordered for You Transfer of Care Activity - Ordered -- Activity As Tolerated, 04/21/22 11:25:00 EST Transfer of Care Diet - Ordered -- Type of Diet: Regular Diet, 04/21/22 11:25:00 EST The Following Equipment Has Been Ordered for You Discharge Home Equipment Transfer of Care IV/PICC - Ordered -- Routine care per facility guidelines., 04/21/22 11:25:33 EST The Following Treatments Have Been Ordered for You Discharge Labs No qualifying data available. Discharge Radiology No qualifying data available. Other Therapies No qualifying data available. Post Acute Orders Transfer of Care Admission Level of Care - Ordered -- Level of Care SNF, 04/21/22 11:29:30 EST Transfer of Care Code Status - Ordered -- Full Code, Constant Order Transfer of Care Communication Order - Ordered -- Expect less than 30 day stay., 04/21/22 11:29:30 EST Transfer of Care IV/PICC - Ordered -- Routine care per facility guidelines., 04/21/22 11:25:33 EST Transfer of Care Orders Electronically Signed By - Ordered -- 04/21/22 11:25:00 EST, LUDIVINA ANDRADE MD Transfer of Care Prognosis - Ordered -- Fair, Patient Aware: Yes Transfer of Care Rehab Potential - Ordered -- Rehab potential fair, 04/21/22 11:25:33 EST Someone Will Contact You Regarding These Home Health Referrals No home referrals have been ordered for you. No one will call you. Allergies NKA Medications Please ask your primary doctor or pharmacist before taking any other medication not listed, including over the counter drugs, herbal medications, vitamins and or supplements as they may interact withyour home medications. What How Much When Instructions Last Dose New nafcillin (nafcillin 2 g injection) 2 gram(s) IV Piggyback Every 4 hours Duration: 6 week(s) What How Much When Comments Stop Taking naproxen (naproxen 250 mg oral tablet) 1 tab(s) by mouth Once a day as needed for as needed for pain Please take this list to your next doctor s visit. Bring all medications you take, including over the counter medications, herbals and other supplements with you to your doctor s visit. Patients and families are reminded to discard old lists and to update any records with all medication providers or retail pharmacies. Education Materials PICC Home Care Guide A peripherally inserted central catheter (PICC) is a form of IV access that allows medicines and IVfluids to be quickly distributed throughout the body. The PICC is a long, thin, flexible tube (catheter) that is inserted into a vein in the upper arm. The catheter ends in a large vein in the chest (superior vena cava, or SVC). After the PICC is inserted, a chest X-ray may be done to make sure that it is in the correct place. A PICC may be placed for different reasons, such as: To give medicines and liquid nutrition. To give IV fluids and blood products. If there is trouble placing a peripheral intravenous (PIV) catheter. If taken care of properly, a PICC can remain in place for several months. Having a PICC can also allow a person to go home from the hospital sooner. Medicine and PICC care can be managed at home by afamily member, caregiver, or home health care team. What are the risks? Generally, having a PICC is safe. However, problems may occur, including: A blood clot (thrombus) forming in or at the tip of the PICC. A blood clot forming in a vein (deep vein thrombosis) or traveling to the lung (pulmonary embolism). Inflammation of the vein (phlebitis) in which the PICC is placed. Infection. Central line associated blood stream infection (CLABSI) is a serious infection that often requires hospitalization. PICC movement (malposition). The PICC tip may move from its original position due to excessive physical activity, forceful coughing, sneezing, or vomiting. A break or cut in the PICC. It is important not to use scissors near the PICC. Nerve or tendon irritation or injury during PICC insertion. How to take care of your PICC Preventing problems You and any caregivers should wash your hands often with soap. Wash hands: ? Before touching the PICC line or the infusion device. ? Before changing a bandage (dressing). Flush the PICC as told by your health care provider. Let your health care provider know right away if the PICC is hard to flush or does not flush. Do not use force to flush the PICC. Do not use a syringe that is less than 10 mL to flush the PICC. Avoid blood pressure checks on the arm in which the PICC is placed. Never pull or tug on the PICC. Do not take the PICC out yourself. Only a trained clinical professional should remove the PICC. Use clean and sterile supplies only. Keep the supplies in a dry place. Do not reuse needles, syringes, or any other supplies. Doing that can lead to infection. Keep pets and children away from your PICC line. Check the PICC insertion site every day for signs of infection. Check for: ? Leakage. ? Redness, swelling, or pain. ? Fluid or blood. ? Warmth. ? Pus or a bad smell. PICC dressing care Keep your PICC bandage (dressing) clean and dry to prevent infection. Do not take baths, swim, or use a hot tub until your health care provider approves. Ask your healthcare provider if you can take showers. You may only be allowed to take sponge baths for bathing. When you are allowed to shower: ? Ask your health care provider to teach you how to wrap the PICC line. ? Cover the PICC line with clear plastic wrap and tape to keep it dry while showering. Follow instructions from your health care provider about how to take care of your insertion site and dressing. Make sure you: ? Wash your hands with soap and water before you change your bandage (dressing). If soap and water are not available, use hand seamer operator. ? Change your dressing as told by your health care provider. ? Leave stitches (sutures), skin glue, or adhesive strips in place. These skin closures may need to stay in place for 2 weeks or longer. If adhesive strip edges start to loosen and curl up, you may trim the loose edges. Do not remove adhesive strips completely unless your health care provider tells you to do that. Change your PICC dressing if it becomes loose or wet. General instructions Carry your PICC identification card or wear a medical alert bracelet at all times. Keep the tube clamped at all times, unless it is being used. Carry a smooth-edge clamp with you at all times to place on the tube if it breaks. Do not use scissors or sharp objects near the tube. You may bend your arm and move it freely. If your PICC is near or at the bend of your elbow, avoid activity with repeated motion at the elbow. Avoid lifting heavy objects as told by your health care provider. Keep all follow-up visits as told by your health care provider. This is important. Disposal of supplies Throw away any syringes in a disposal container that is meant for sharp items (sharps container). You can buy a sharps container from a pharmacy, or you can make one by using an empty hard plastic bottle with a cover. Place any used dressings or infusion bags into a plastic bag. Throw that bag in the trash. Contact a health care provider if: You have pain in your arm, ear, face, or teeth. You have a fever or chills. You have redness, swelling, or pain around the insertion site. You have fluid or blood coming from the insertion site. Your insertion site feels warm to the touch. You have pus or a bad smell coming from the insertion site. Your skin feels hard and raised around the insertion site. Get help right away if: Your PICC is accidentally pulled all the way out. If this happens, cover the insertion site with a bandage or gauze dressing. Do not throw the PICC away. Your health care provider will need to check it. Your PICC was tugged or pulled and has partially come out. Do not push the PICC back in. You cannot flush the PICC, it is hard to flush, or the PICC leaks around the insertion site when itis flushed. You hear a flushing sound when the PICC is flushed. You feel your heart racing or skipping beats. There is a hole or tear in the PICC. You have swelling in the arm in which the PICC was inserted. You have a red streak going up your arm from where the PICC was inserted. Summary A peripherally inserted central catheter (PICC) is a long, thin, flexible tube (catheter) that is inserted into a vein in the upper arm. The PICC is inserted using a sterile technique by a specially trained nurse or physician. Only a trained clinical professional should remove it. Keep your PICC identification card with you at all times. Avoid blood pressure checks on the arm in which the PICC is placed. If cared for properly, a PICC can remain in place for several months. Having a PICC can also allow a person to go home from the hospital sooner. This information is not intended to replace advice given to you by your health care provider. Make sure you discuss any questions you have with your health care provider. Document Released: 10/09/2003 Document Revised: 03/17/2018 Document Reviewed: 05/07/2017 [employer] Patient Education 2020 [employer] Additional Information VACCINATE! IT SAVES LIVES! Members of the community who have not yet received the COVID-19 vaccine and would like to receive it can visit one of [facility] vaccine clinics. There are many vaccine clinic locations within the [facility]. For locations and available times, please visit [email or web address]/. It is important to note that some COVID mobile vaccine clinics are held outdoors and may be canceled in rainy or stormy conditions. To learn more about pediatric vaccinations (ages 5-11), we invite you to visit the [facility] webpage. [email or web address]/[email or web address] [email or web address].htmlTo learn more about the COVID-19 vaccine, we invite you to visit the [employer] website for a list of frequently asked questions. [email or web address]-[email or web address] _[email or web address]-Questions.pdf [facility] Patient Portal Access Instructions: Stay connected with your healthcare team and access your personal medical information anytime with the [facility] Patient Portal.If you would like a full copy of your medical records, please contact the [facility] Medical Records Department, Tuesday through Tuesday between 8a.m. and 4:30p.m. Please follow the directions below to access the portal: 1.Access the email account you provided upon registration to the [facility].2.Look for an invitation email from [facility].3.Open the email and access the invitation link: Accept Invitation to [facility]4.Fill in the required sandoval to create your account. Sign into www.[employer] with your username and password that you created in the above steps to stay up to date. You can then view a summary of results, a summary of your visits, and the ability to download your summaries to your computer or send the information securely to a physician. Remember that your healthcare information is confidential, so carefully consider who you will allow to register on the [facility] Patient Portal for access to your information. You can also access the [facility] Patient Portal on the [facility] kendrick. Simply click on Health Records under Datav[employer] and then click on the [facility] logo. HOW TO SAFELY DISPOSE OF PRESCRIPTION MEDICATIONS Please use one of the following methods to safely dispose of your unused medications. 1.Use a drug disposal kit: the drug disposal pouch allows you to safely discard your old and unuseddrugs. Ask your nurse to give you one when you are discharged.2.Visit a local take-back location: Many local pharmacies and police departments have programs that collect old and unwanted prescriptiondrugs. Call your local pharmacy or go to http://bit.e(ye)BRAIN/4B9Fo6t to find one close to you.3.Make use of household items: Use cat litter or old coffee grounds to dispose medications if other options arenot available. Mix your drugs with these household products, seal them in an airtight container andthrow it into the garbage. Call [facility]: [phone] to be sure your drugs can be disposed of in this way. Some medicines may require a different approach.4.Never flush your medications down the toilet. IF YOU HAVE BEEN PRESCRIBED AN OPIOID FOR PAIN If you have been prescribed an opioid (such as hydrocodone, oxycodone or morphine), it is critical to understand the possible side effects and risks of opioid pain medications. Even when taken as directed, opioids can have several side effects including: Tolerance, meaning you might need to take more of a medication for the same pain relief. Nausea, vomiting and/or constipation. Sleepiness, dizziness, dry mouth, confusion, depression or itching. Physical dependence, meaning you have withdrawal symptoms when a medication is stopped, can develop within a few days. KNOW YOUR RESPONSIBILITIES It is important to know exactly how much and how often to take the opioid pain medications you are prescribed. Never take opioids in higher amounts or more often than prescribed. Do not combine opioids with alcohol or other drugs that cause drowsiness, such as benzodiazepines, also known as benzos, including diazepam and alprazolam, muscle relaxants or sleep aids. Never sell or share prescription opioids. This is illegal. Store opioids in a secure place and out of reach of others (including children, family, friends and visitors). The last page of this document has been signed and retained as a CHART COPY. Signatures Patient Education Materials PICC Home Care Guide Medication Leaflets My discharge plan and instructions have been reviewed and explained to me and I,SAM JIMENEZ understand my current condition and have read and understand these discharge instructions. I have received a written copy of the plan/instructions. If I have questions, I am aware that I should contact my doctor. Patient/Leave Specialist Signature: Date/Time: Relationship to Patient: Witness Name/Signature: Date/Time: [id number] Note VASCULAR ACCESS TEAM POST PROCEDURE NOTE PROCEDURE: Peripherally Inserted Central Catheter (PICC) INDICATION: _Long Term Antibiotics DETAILS: Consult for PICC placement received. Chart reviewed. Informed consent was obtained and verified prior to the procedure. A pre-procedure Time Out was performed confirming correct patient and procedure. A 5 Fr. Double Lumen PICC was inserted at bedside under sterile technique. Vascular access was obtained with ultrasound guidance. PICC flushes easily with good blood return. Patient tolerated placement of PICC well. PICC education provided. ANESTHESIA: Local subcutaneous injection using _2 mL 1% Lidocaine ACCESS VESSEL: _Right _Brachial CATHETER LENGTH: _40cm INTERNAL LENGTH: _37cm EXTERNAL LENGTH: _3cm ARM CIRC: _24cm LOT #: _[id number] COMPLICATIONS: None INSERTED BY: Anup Linda PLAN: _Picc line inserted using ECG technology with MAX- P wave achieved. _Picc line okay for use. Digitally Signed by Anup Linda RN on 04/21/2022 11:13 AM [id number] Note Date of Service 04/21/2022 YESSENIA with positive vegetation discussed with Dr. Fernandez this morning. There are still no plans for surgical intervention at this time. Please refer to Dr. Fernandez's consultation note from 04/18/2022 for further information. Digitally Signed by ALVARO CARRILLO on 04/21/2022 10:55 AM [id number] Infectious disease Progress note Date of Service 04/21/2022 YESSENIA reviewed and shows a 0.7 cm x 1.1 cm mobile vegetation on the right atrial aspect of the anterior leaflet of the tricuspid valve. There is a slightly smaller mobile vegetation of the right atrium aspect of the posterior leaflet as well. CT surgery is on board and states no indication for surgery and recommending long course of IV antibiotics. Order for PICC line has been placed. Willcontinue nafcillin 2 g IV every 4 hours for a full 6-week course of therapy with end date of 05/30/2022. CBC, CMP every Tuesday x6. Fax results to Dr. Westfall at [phone]. Follow-up with infectiousdisease in 4 weeks. PICC care per protocol. May discontinue PICC after completion of IV antibiotics. Close outpatient follow-up with infectious disease and cardiothoracic surgery. Prescription left on chart. Please do not hesitate to contact us with any further questions or concerns. Digitally Signed by ASA GARCIA on 04/21/2022 07:42 AM [facility] [id number] Infectious disease Progress note Date of Service 04/21/2022 YESSENIA reviewed and shows a 0.7 cm x 1.1 cm mobile vegetation on the right atrial aspect of the anterior leaflet of the tricuspid valve. There is a slightly smaller mobile vegetation of the right atrium aspect of the posterior leaflet as well. CT surgery is on board and states no indication for surgery and recommending long course of IV antibiotics. Order for PICC line has been placed. Willcontinue nafcillin 2 g IV every 4 hours for a full 6-week course of therapy with end date of 05/30/2022. CBC, CMP every Tuesday x6. Fax results to Dr. Westfall at [phone]. Follow-up with infectiousdisease in 4 weeks. PICC care per protocol. May discontinue PICC after completion of IV antibiotics. Close outpatient follow-up with infectious disease and cardiothoracic surgery. Prescription left on chart. Please do not hesitate to contact us with any further questions or concerns. Digitally Signed by ASA GARCIA on 04/21/2022 07:42 AM [facility] [id number] Note Date of Service 04/20/21 Chief Complaint Sepsis, SBE Subjective 27-year-old -B[place] male who has past history of IV drug abuse, hepatitis C and tobacco dependence. Patient presented to the [facility] on 04/13/2022 after being transferred from [place] due to concern for infective endocarditis. Since being at [facility] echocardiogram has confirmed vegetation of the tricuspid valve, initial blood cultures grew MSSA organism, repeat blood culture continues to grow gram-positive cocci in cluster. Patient is being followed by infectious disease and has been on culture directed antibiotics. he had YESSENIA today which showed There is a large, 0.7 cm (W) x 1.1 cm (L), mobile vegetation on the right atrial aspect of the anterior leaflet. There is a slightly smaller mobile vegetation of the RA aspect of the posterior leaflet as well. ID, Cardiology, CT surgery on consulted, he is to be placed to SNF for iv Abx. Objective Vitals and Measurements T: 36.5 C (Oral) TMIN: 36.5 C (Oral) TMAX: 37.2 C (Axillary) HR: 122 RR: 18 BP: 123/79 SpO2: 100% Intake and Output 7AM Yesterday to 7AM Today Intake and Output (Last 24 hours) Intake Output Total Summary Total Intake 0.00 Total Output 0.00 Fluid Balance 0.00 Physical Exam Gen: Appears comfortable, not in distress. HEENT: No pallor, no icterus, neck supple. Lungs: CTA, good air entry, no wheezing or crackles CVS: S1-S2 noted, regular rate and rhythm, no murmur noted Abd: Nontender, bowel sounds noted, no organomegaly Ext: Pulses symmetric, no edema Skin: No rash, no nodules Neuro: Alert, no focal deficits Weight Dosing Weight: 53.8 kg (04/13/22) Medications Medications (11) Active Scheduled: (3) heparin 5,000 units/mL (1 mL) vial 5,000 unit(s) 1 mL, Subcutaneous, q8h lidocaine 1% (MPF) 2 mL vial pf 30 mg 3 mL, Intradermal, prep pharm nafcillin 2 gram(s), IV Piggyback, q4hr Continuous: (0) PRN: (8) acetaminophen 325 mg Tablet 650 mg 2 tab(s), Oral, q4h albuterol - ipratropium 2.5 mg-0.5 mg/3 mL Inhal Milagro UD 3 mL, Inhalation, q4hRT benzocaine-dextromethorphan 7.5 mg-5 mg Orville 1 lozenge(s), Oral, q2h guaifenesin 100 mg/5 mL 120 mL liquid 200 mg 10 mL, Oral, q4h melatonin 3 mg tablet 3 mg 1 tab(s), Oral, qHS naproxen 250 mg tablet 250 mg 1 tab(s), Oral, qDay ondansetron 2 mg/ 1 mL 2 mL INJ 4 mg 2 mL, IV Push, q4h polyethylene glycol 3350 - UD packet 17 gram(s) 15 mL, Oral, qDay Lab Results No 36 Hour Lab Data EKG No qualifying data available. Assessment/Plan Sepsis on admission based on SIRS criteria, with tachycardia, tachypnea, leukocytosis, source of infection is due to SBE and bacteremia. Continue current antibiotics per ID. Subacute bacterial endocarditis, YESSENIA confirmed vegetation on Tricuspid valve, continue iv Nafcillinper ID. MSSA bacteremia, continue Nafcillin per ID. Hypomagnesemia, replaced or resolved. Microcytic anemia due to SBE. History of IV drug use, Tobacco abuse, hx of HCV, stable. sq Heparin for DVT prophylaxis. Digitally Signed by CHRISSIE KASPER MD on 04/21/2022 01:06 AM [id number] Cardiology Progress note Date of Service 04/20/22 Chief Complaint Bacteremia Subjective Patient seen and examined this AM. Patient denies any acute events overnight. Patient denies any chest pain, shortness of breath. Objective Vitals and Measurements T: 37.2 C (Axillary) TMIN: 36.7 C (Oral) TMAX: 37.5 C (Oral) HR: 96 RR: 18 BP: 128/86 SpO2: 100% Intake and Output 7AM Yesterday to 7AM Today Intake and Output (Last 24 hours) Intake Oral Intake 120.00 Output Urine Voided 0.00 Stool Count 0.00 Total Summary Total Intake 120.00 Total Output 0.00 Fluid Balance 120.00 Physical Exam General Appearance: Young, -Bahamian male, no acute distress Head: NCAT Cardiac: RRR. 2/6 systolic murmur heard best at tricuspid valve position. Lungs: CTAB Abdomen: NT, ND. BS + Extremities: DP intact. No LE edema Skin: No rashes or lesions Psychiatric: A&O X3. Answers questions appropriately Weight Dosing Weight: 53.8 kg (04/13/22) Medications Medications (10) Active Scheduled: (3) heparin 5,000 units/mL (1 mL) vial 5,000 unit(s) 1 mL, Subcutaneous, q8h lidocaine 1% (MPF) 2 mL vial pf 30 mg 3 mL, Intradermal, prep pharm nafcillin 2 gram(s), IV Piggyback, q4hr Continuous: (0) PRN: (7) acetaminophen 325 mg Tablet 650 mg 2 tab(s), Oral, q4h albuterol - ipratropium 2.5 mg-0.5 mg/3 mL Inhal Milagro UD 3 mL, Inhalation, q4hRT guaifenesin 100 mg/5 mL 120 mL liquid 200 mg 10 mL, Oral, q4h melatonin 3 mg tablet 3 mg 1 tab(s), Oral, qHS naproxen 250 mg tablet 250 mg 1 tab(s), Oral, qDay ondansetron 2 mg/ 1 mL 2 mL INJ 4 mg 2 mL, IV Push, q4h polyethylene glycol 3350 - UD packet 17 gram(s) 15 mL, Oral, qDay Lab Results 04/19 05:06 WBC: 13.9 H Hgb: 8.7 L Hct: 26.8 L Platelet: 339 Neutrophil %: 72.4 Glucose Level: 84 Sodium Level: 140 Potassium Level: 4.6 BUN: 7.0 L Creatinine Lvl (s): 0.66 Imaging Results and Diagnostics CT Abdomen/Pelvis w/Contrast Result Date: April 18, 2022 Verified By: YAZMIN KUMAR DO CLINICAL STATEMENT: IMPRESSION: 1. Question mild areas of hypoenhancement within the right kidney, which maybe within wide range of normal. If there is concern for pyelonephritis,correlate with urinalysis.2. Borderline splenomegaly.3. Interval development of small left pleural effusion with underlyingatelectasis.4. Red emonstration of cavitary and non cavitary lung nodules. EKG No qualifying data available. Assessment/Plan 1. Tricuspid valve endocarditis 2. MSSA bacteremia 3. Sinus tachycardia 4. IV drug use 5. Hep C Patient is a 27-year-old male with a past medical history of IV drug abuse, hepatitis C presented to the hospital for tricuspid valve endocarditis found to have MSSA bacteremia. Surface echocardiogram shows a 1 cm vegetation on the tricuspid valve. CT surgery has been consulted and has no plans forsurgical intervention at this time. Patient continues to have fevers and positive blood cultures. Infectious disease has requested a YESSENIA to further evaluate tricuspid valve endocarditis. Patient willbe scheduled to undergo YESSENIA on 04/20. For remainder of acute/chronic medical conditions, see primary service notes for further managementdetails. Case discussed with attending. See attending addendum for additional details. General cardiology will follow peripherally at this time. Please do not hesitate to call with any questions or concerns. Thank you for this kind consultation. Digitally Signed by BENEDICT JEROME DO on 04/20/2022 12:17 PM [id number] Infectious disease Progress note Date of Service 04/20/2022 Chief Complaint Bacteremia, endocarditis Subjective Patient denies issues. No fever, chills, nausea, vomiting, abdominal pain, back pain, or urinary complaints. He remains afebrile. Leukocytosis and trend. Objective Vitals and Measurements T: 36.9 C (Oral) TMIN: 36.8 C (Axillary) TMAX: 37.5 C (Oral) HR: 91 RR: 18 BP: 113/70 SpO2: 99% Intake and Output 7AM Yesterday to 7AM Today Intake and Output (Last 24 hours) Intake Oral Intake 120.00 Output Urine Voided 0.00 Stool Count 0.00 Total Summary Total Intake 120.00 Total Output 0.00 Fluid Balance 120.00 Physical Exam CONSTITUTIONAL: Awake, alert, nontoxic in appearance, no acute distress. SKIN: [place], warm, dry. HEAD: Normocephalic, atraumatic. ENT: Pupils equal and reactive, EOMS intact. No icterus. Oral mucosa pink and moist. NECK: Supple, trachea midline. No lymphadenopathy. HEART: Regular rate and rhythm, normal S1-S2. No murmur appreciated. LUNGS: Symmetric with respiration, even unlabored. Clear to auscultation. ABDOMEN: soft, nontender, with active bowel sounds in all 4 quadrants. EXTREMITIES: No edema, calves supple, non-tender. Distal pulses palpable. NEUROLOGICAL: No focal deficits, motor sensory is intact. PSYCHIATRIC: Alert oriented 4 with appropriate mood and affect. Weight Dosing Weight: 53.8 kg (04/13/22) Medications Medications (10) Active Scheduled: (3) heparin 5,000 units/mL (1 mL) vial 5,000 unit(s) 1 mL, Subcutaneous, q8h lidocaine 1% (MPF) 2 mL vial pf 30 mg 3 mL, Intradermal, prep pharm nafcillin 2 gram(s), IV Piggyback, q4hr Continuous: (0) PRN: (7) acetaminophen 325 mg Tablet 650 mg 2 tab(s), Oral, q4h albuterol - ipratropium 2.5 mg-0.5 mg/3 mL Inhal Milagro UD 3 mL, Inhalation, q4hRT guaifenesin 100 mg/5 mL 120 mL liquid 200 mg 10 mL, Oral, q4h melatonin 3 mg tablet 3 mg 1 tab(s), Oral, qHS naproxen 250 mg tablet 250 mg 1 tab(s), Oral, qDay ondansetron 2 mg/ 1 mL 2 mL INJ 4 mg 2 mL, IV Push, q4h polyethylene glycol 3350 - UD packet 17 gram(s) 15 mL, Oral, qDay Lab Results 04/19 05:06 WBC: 13.9 H Hgb: 8.7 L Hct: 26.8 L Platelet: 339 Neutrophil %: 72.4 Glucose Level: 84 Sodium Level: 140 Potassium Level: 4.6 BUN: 7.0 L Creatinine Lvl (s): 0.66 Imaging Results and Diagnostics CT Abdomen/Pelvis w/Contrast Result Date: April 18, 2022 Verified By: YAZMIN KUMAR DO CLINICAL STATEMENT: IMPRESSION: 1. Question mild areas of hypoenhancement within the right kidney, which maybe within wide range of normal. If there is concern for pyelonephritis,correlate with urinalysis.2. Borderline splenomegaly.3. Interval development of small left pleural effusion with underlyingatelectasis.4. Red emonstration of cavitary and non cavitary lung nodules. Assessment/Plan 1. Multiple cavitary lung nodules concerning for septic emboli 2. MSSA bacteremia 3. Endocarditis of the tricuspid valve. 4. History of IV drug use. 5. History of hepatitis C. 27-year-old male with history of IV drug use, hepatitis C, pneumonia that presented to [facility] emergency department with complaints of shortness of breath, bilateral chest pain for several weeks. Upon arrival to the emergency department he presented with sepsis-like features with tachycardia with heart rate of 120, leukocytosis with a white count of 18,200. Transaminitis. CT of the chestwas negative for pulmonary embolism however demonstrated interval development of multiple nodules predominantly cavitary suggestive of septic emboli. The patient was initiated on broad-spectrum antibiotics and was transferred to [facility] for ID consultation. Flu/COVID/RSV PCR negative. Atypical work-up unremarkable. Urinalysis unremarkable. Repeat blood culture show no growth to date. HIV, RPR nonreactive. Acute hepatitis panel positive for hepatitis C. CT of the abdomen pelvis with contrast demonstrates some mild area of hypoenhancement within the right kidney, borderline splenomegaly, interval development of small left pleural effusion with underlying atelectasis, and recurrence of cavitary lung nodules. Transthoracic echocardiogram demonstrates vegetation to the tricuspid valve. RECOMMENDATIONS: Patient has a history of IV drug use now presents with MSSA bacteremia and vegetation noted on transthoracic echocardiogram of the tricuspid valve. YESSENIA is planned for 3 PM today. Repeat blood culture showed no growth. Patient has remained afebrile, leukocytosis on a downward trend.Order for PICC line has been placed. If YESSENIA shows no new vegetation or large vegetation patient will tentatively be discharged with PICC line, and 6 weeks of IV nafcillin 2 g every 4 hours with end date of 05/30/2022 for tricuspid valve endocarditis and MSSA bacteremia. Will await YESSENIA results for final disposition recommendations and prescription. Patient will need to follow-up with either gastroenterology or infectious disease on outpatient basis for definitive treatment for hepatitis C. Plan of care was discussed the patient, questions answered, and he is amenable to the plan. Case was discussed with my collaborating physician Dr. Solomon Mills. This dictation was performed using voice recognition software may include grammatical and/or spelling errors. Time Spent 25 minutes Digitally Signed by ASA GARCIA on 04/20/2022 11:23 AM [id number] Cardiology Progress note Date of Service 04/20/22 Chief Complaint Bacteremia Subjective Patient seen and examined this AM. Patient denies any acute events overnight. Patient denies any chest pain, shortness of breath. Objective Vitals and Measurements T: 37.2 C (Axillary) TMIN: 36.7 C (Oral) TMAX: 37.5 C (Oral) HR: 96 RR: 18 BP: 128/86 SpO2: 100% Intake and Output 7AM Yesterday to 7AM Today Intake and Output (Last 24 hours) Intake Oral Intake 120.00 Output Urine Voided 0.00 Stool Count 0.00 Total Summary Total Intake 120.00 Total Output 0.00 Fluid Balance 120.00 Physical Exam General Appearance: Young, -[place] male, no acute distress Head: NCAT Cardiac: RRR. 2/6 systolic murmur heard best at tricuspid valve position. Lungs: CTAB Abdomen: NT, ND. BS + Extremities: DP intact. No LE edema Skin: No rashes or lesions Psychiatric: A&O X3. Answers questions appropriately Weight Dosing Weight: 53.8 kg (04/13/22) Medications Medications (10) Active Scheduled: (3) heparin 5,000 units/mL (1 mL) vial 5,000 unit(s) 1 mL, Subcutaneous, q8h lidocaine 1% (MPF) 2 mL vial pf 30 mg 3 mL, Intradermal, prep pharm nafcillin 2 gram(s), IV Piggyback, q4hr Continuous: (0) PRN: (7) acetaminophen 325 mg Tablet 650 mg 2 tab(s), Oral, q4h albuterol - ipratropium 2.5 mg-0.5 mg/3 mL Inhal Milagro UD 3 mL, Inhalation, q4hRT guaifenesin 100 mg/5 mL 120 mL liquid 200 mg 10 mL, Oral, q4h melatonin 3 mg tablet 3 mg 1 tab(s), Oral, qHS naproxen 250 mg tablet 250 mg 1 tab(s), Oral, qDay ondansetron 2 mg/ 1 mL 2 mL INJ 4 mg 2 mL, IV Push, q4h polyethylene glycol 3350 - UD packet 17 gram(s) 15 mL, Oral, qDay Lab Results 04/19 05:06 WBC: 13.9 H Hgb: 8.7 L Hct: 26.8 L Platelet: 339 Neutrophil %: 72.4 Glucose Level: 84 Sodium Level: 140 Potassium Level: 4.6 BUN: 7.0 L Creatinine Lvl (s): 0.66 Imaging Results and Diagnostics CT Abdomen/Pelvis w/Contrast Result Date: April 18, 2022 Verified By: YAZMIN KUMAR DO CLINICAL STATEMENT: IMPRESSION: 1. Question mild areas of hypoenhancement within the right kidney, which maybe within wide range of normal. If there is concern for pyelonephritis,correlate with urinalysis.2. Borderline splenomegaly.3. Interval development of small left pleural effusion with underlyingatelectasis.4. Red emonstration of cavitary and non cavitary lung nodules. EKG No qualifying data available. Assessment/Plan 1. Tricuspid valve endocarditis 2. MSSA bacteremia 3. Sinus tachycardia 4. IV drug use 5. Hep C Patient is a 27-year-old male with a past medical history of IV drug abuse, hepatitis C presented to the hospital for tricuspid valve endocarditis found to have MSSA bacteremia. Surface echocardiogram shows a 1 cm vegetation on the tricuspid valve. CT surgery has been consulted and has no plans forsurgical intervention at this time. Patient continues to have fevers and positive blood cultures. Infectious disease has requested a YESSENIA to further evaluate tricuspid valve endocarditis. Patient willbe scheduled to undergo YESSENIA on 04/20. For remainder of acute/chronic medical conditions, see primary service notes for further managementdetails. Case discussed with attending. See attending addendum for additional details. General cardiology will follow peripherally at this time. Please do not hesitate to call with any questions or concerns. Thank you for this kind consultation. Digitally Signed by BENEDICT JEROME DO on 04/20/2022 12:17 PM [facility] [id number] Note Date of Service 04/19/22 Chief Complaint SBE Subjective Patient was seen and examined, no fever no chills, no chest pain or shortness of breath, no acute event overnight Objective Vitals and Measurements T: 36.8 C (Oral) TMIN: 36.7 C (Oral) TMAX: 37.2 C (Oral) HR: 97(Monitored) RR: 18 BP: 107/74 SpO2: 100% Intake and Output 7AM Yesterday to 7AM Today Intake and Output (Last 24 hours) Intake Oral Intake 120.00 Output Urine Voided 0.00 Stool Count 0.00 Total Summary Total Intake 120.00 Total Output 0.00 Fluid Balance 120.00 Physical Exam Gen: Appears comfortable, not in distress. HEENT: No pallor, no icterus, neck supple. Lungs: CTA, good air entry, no wheezing or crackles CVS: S1-S2 noted, regular rate and rhythm, no murmur noted Abd: Nontender, bowel sounds noted, no organomegaly Ext: Pulses symmetric, no edema Skin: No rash, no nodules Neuro: Alert, no focal deficits Weight Dosing Weight: 53.8 kg (04/13/22) Medications Medications (10) Active Scheduled: (3) heparin 5,000 units/mL (1 mL) vial 5,000 unit(s) 1 mL, Subcutaneous, q8h lidocaine 1% (MPF) 2 mL vial pf 30 mg 3 mL, Intradermal, prep pharm nafcillin 2 gram(s), IV Piggyback, q4hr Continuous: (0) PRN: (7) acetaminophen 325 mg Tablet 650 mg 2 tab(s), Oral, q4h albuterol - ipratropium 2.5 mg-0.5 mg/3 mL Inhal Milagro UD 3 mL, Inhalation, q4hRT guaifenesin 100 mg/5 mL 120 mL liquid 200 mg 10 mL, Oral, q4h melatonin 3 mg tablet 3 mg 1 tab(s), Oral, qHS naproxen 250 mg tablet 250 mg 1 tab(s), Oral, qDay ondansetron 2 mg/ 1 mL 2 mL INJ 4 mg 2 mL, IV Push, q4h polyethylene glycol 3350 - UD packet 17 gram(s) 15 mL, Oral, qDay Lab Results 04/19 05:06 WBC: 13.9 H Hgb: 8.7 L Hct: 26.8 L Platelet: 339 Neutrophil %: 72.4 Glucose Level: 84 Sodium Level: 140 Potassium Level: 4.6 BUN: 7.0 L Creatinine Lvl (s): 0.66 EKG No qualifying data available. Assessment/Plan Sepsis on admission based on SIRS criteria, with tachycardia, tachypnea, leukocytosis, source of infection is due to SBE and bacteremia. Continue current antibiotics per ID. Subacute bacterial endocarditis, continue iv Nafcillin per ID. MSSA bacteremia, continue Nafcillin per ID. Hypomagnesemia, replaced or resolved. Microcytic anemia due to SBE. History of IV drug use, Tobacco abuse, hx of HCV, stable. sq Heparin for DVT prophylaxis. Digitally Signed by CHRISSIE KASPER MD on 04/19/2022 09:42 PM [facility] [id number] Cardiology Progress note Date of Service 04/19/2021 Subjective Patient was seen and examined at bedside Objective Vitals and Measurements T: 36.8 C (Oral) TMIN: 36.7 C (Oral) TMAX: 37.2 C (Oral) HR: 108(Monitored) RR: 16 BP: 119/80 SpO2:100% Intake and Output 7AM Yesterday to 7AM Today Intake and Output (Last 24 hours) Intake Oral Intake 120.00 Output Urine Voided 0.00 Stool Count 0.00 Total Summary Total Intake 120.00 Total Output 0.00 Fluid Balance 120.00 Physical Exam GENERAL: Well nourished ;no acute distress. PSYCHIATRIC: Alert and oriented x 3, cooperative, mood normal, affect normal. CARDIAC: Regular rate, regular rhythm, no murmurs noted. RESPIRATORY: Regular rate and depth; no distress; RIGHT lung clear, LEFT lung clear; Breath sounds normal. ABDOMEN: Soft, nontender. Normal bowel sounds. MUSCULOSKELETAL: Gait normal. Weight Dosing Weight: 53.8 kg (04/13/22) Medications Medications (10) Active Scheduled: (3) heparin 5,000 units/mL (1 mL) vial 5,000 unit(s) 1 mL, Subcutaneous, q8h lidocaine 1% (MPF) 2 mL vial pf 30 mg 3 mL, Intradermal, prep pharm nafcillin 2 gram(s), IV Piggyback, q4hr Continuous: (0) PRN: (7) acetaminophen 325 mg Tablet 650 mg 2 tab(s), Oral, q4h albuterol - ipratropium 2.5 mg-0.5 mg/3 mL Inhal Milagro UD 3 mL, Inhalation, q4hRT guaifenesin 100 mg/5 mL 120 mL liquid 200 mg 10 mL, Oral, q4h melatonin 3 mg tablet 3 mg 1 tab(s), Oral, qHS naproxen 250 mg tablet 250 mg 1 tab(s), Oral, qDay ondansetron 2 mg/ 1 mL 2 mL INJ 4 mg 2 mL, IV Push, q4h polyethylene glycol 3350 - UD packet 17 gram(s) 15 mL, Oral, qDay Lab Results 04/19 05:06 WBC: 13.9 H Hgb: 8.7 L Hct: 26.8 L Platelet: 339 Neutrophil %: 72.4 Glucose Level: 84 Sodium Level: 140 Potassium Level: 4.6 BUN: 7.0 L Creatinine Lvl (s): 0.66 EKG No qualifying data available. Assessment/Plan 1. Tricuspid valve endocarditis 2. MSSA bacteremia 3. Sinus tachycardia 4. IV drug use 5. Hep C Cardiology consulted for tricuspid valve endocarditis. On review of echocardiogram, patient has vegetation that is 1 cm in widest length. In addition BNP is elevated and concerning for subclinical heart failure. CT surgery has been consulted with no plans for surgical intervention. Patient continues to have fevers and positive blood cultures. We will plan to undergo YESSENIA on Tuesday.. Sinus tachycardia secondary to underlying endocarditis and infection. Would continue to treat underlying cause. No need for beta-blockers. Digitally Signed by AUDREY PINEDA MD on 04/19/2022 05:34 PM [facility] [id number] Infectious disease Progress note Date of Service 04/19/2022 Chief Complaint Bacteremia, endocarditis. Subjective Patient denies complaints overnight. No further fever, chills, nausea, vomiting, abdominal pain, back pain, CVA tenderness, or urinary complaints. Patient has been afebrile for almost 24 hours. Remains mildly tachycardic with heart rate of 107 otherwise hemodynamically stable and maintaining adequate O2 saturations on room air. He does endorse intermittent chest pain and shortness of breath when h e lies on his side. This does improve when he lays on his back. No other exacerbating or alleviating factors identified. Objective Vitals and Measurements T: 36.7 C (Oral) TMIN: 36.7 C (Oral) TMAX: 37.2 C (Oral) HR: 107 RR: 17 BP: 124/71 SpO2: 100% Intake and Output 7AM Yesterday to 7AM Today Intake and Output (Last 24 hours) Intake Output Total Summary Total Intake 0.00 Total Output 0.00 Fluid Balance 0.00 Physical Exam CONSTITUTIONAL: Awake, alert, nontoxic in appearance, no acute distress. SKIN: [place], warm, dry. HEAD: Normocephalic, atraumatic. ENT: Pupils equal and reactive, EOMS intact. No icterus. Oral mucosa pink and moist. NECK: Supple, trachea midline. No lymphadenopathy. No cervical tenderness. HEART: Regular rate and rhythm, normal S1-S2. No murmur appreciated. LUNGS: Symmetric with respiration, even unlabored. Clear to auscultation. ABDOMEN: soft, nontender, with active bowel sounds in all 4 quadrants. No appreciable hepatosplenomegaly, abdominal mass, or bruit. BACK: No paraspinous or CVA tenderness. EXTREMITIES: No edema, calves supple, non-tender. Distal pulses palpable. NEUROLOGICAL: No focal deficits, motor sensory is intact. PSYCHIATRIC: Alert oriented 4 with appropriate mood and affect. Weight Dosing Weight: 53.8 kg (04/13/22) Medications Medications (10) Active Scheduled: (3) heparin 5,000 units/mL (1 mL) vial 5,000 unit(s) 1 mL, Subcutaneous, q8h lidocaine 1% (MPF) 2 mL vial pf 30 mg 3 mL, Intradermal, prep pharm nafcillin 2 gram(s), IV Piggyback, q4hr Continuous: (0) PRN: (7) acetaminophen 325 mg Tablet 650 mg 2 tab(s), Oral, q4h albuterol - ipratropium 2.5 mg-0.5 mg/3 mL Inhal Milagro UD 3 mL, Inhalation, q4hRT guaifenesin 100 mg/5 mL 120 mL liquid 200 mg 10 mL, Oral, q4h melatonin 3 mg tablet 3 mg 1 tab(s), Oral, qHS naproxen 250 mg tablet 250 mg 1 tab(s), Oral, qDay ondansetron 2 mg/ 1 mL 2 mL INJ 4 mg 2 mL, IV Push, q4h polyethylene glycol 3350 - UD packet 17 gram(s) 15 mL, Oral, qDay Lab Results 04/19 05:06 WBC: 13.9 H Hgb: 8.7 L Hct: 26.8 L Platelet: 339 Neutrophil %: 72.4 Glucose Level: 84 Sodium Level: 140 Potassium Level: 4.6 BUN: 7.0 L Creatinine Lvl (s): 0.66 04/18 04:50 WBC: 16.9 H Hgb: 8.1 L Hct: 24.8 L Platelet: 309 Neutrophil %: 76.8 H Glucose Level: 92 Sodium Level: 134 L Potassium Level: 4.0 BUN: 6.0 L Creatinine Lvl (s): 0.62 Imaging Results and Diagnostics CT Abdomen/Pelvis w/Contrast Result Date: April 18, 2022 Verified By: YAZMIN KUMAR DO CLINICAL STATEMENT: IMPRESSION: 1. Question mild areas of hypoenhancement within the right kidney, which maybe within wide range of normal. If there is concern for pyelonephritis,correlate with urinalysis.2. Borderline splenomegaly.3. Interval development of small left pleural effusion with underlyingatelectasis.4. Red emonstration of cavitary and non cavitary lung nodules. Assessment/Plan 1. Multiple cavitary lung nodules concerning for septic emboli 2. MSSA bacteremia 3. Endocarditis of the tricuspid valve. 4. History of IV drug use. 5. History of hepatitis C. 27-year-old male with history of IV drug use, hepatitis C, pneumonia that presented to [facility] emergency department with complaints of shortness of breath, bilateral chest pain for several weeks. Upon arrival to the emergency department he presented with sepsis-like features with tachycardia with heart rate of 120, leukocytosis with a white count of 18,200. Transaminitis. CT of the chestwas negative for pulmonary embolism however demonstrated interval development of multiple nodules predominantly cavitary suggestive of septic emboli. The patient was initiated on broad-spectrum antibiotics and was transferred to [facility] for ID consultation. Flu/COVID/RSV PCR negative. Atypical work-up unremarkable. Urinalysis unremarkable. Repeat blood culture show no growth to date. HIV, RPR nonreactive. Acute hepatitis panel positive for hepatitis C. CT of the abdomen pelvis with contrast demonstrates some mild area of hypoenhancement within the right kidney, borderline splenomegaly, interval development of small left pleural effusion with underlying atelectasis, and recurrence of cavitary 9 cavitary lung nodules. Transthoracic echocardiogram demonstrates vegetation to the tricuspid valve. RECOMMENDATIONS: Yesterday antibiotics were further broadened due to persistent fevers and leukocytosis and he was placed on saline and gentamicin. This morning his white count is on a downward trendat 13,900. And he is remained afebrile for almost 24 hours. She denies urinary complaints, no back or neck pain. He has no wounds or other joint pain. No abdominal pain. We will discontinue IV gentamicin and continue nafcillin 2 g IV every 4 hours for MSSA bacteremia. Tentative plan is for YESSENIA tomorrow (04/20/2022). We will follow YESSENIA results but patient will likely require a PICC line for 6 weeks of IV antibiotics and SNF placement for antibiotic therapy given his history of IV drug use. This was discussed with the patient and he is amendable. Will follow YESSENIA results for further recommendations . Patient will need to follow-up with either gastroenterology or infectious disease on outpatient basis for definitive treatment for hepatitis C. Plan of care was discussed the patient, questions answered, and he is amenable to the plan. Case was discussed with my collaborating physician Dr. Solomon Mills. This dictation was performed using voice recognition software may include grammatical and/or spelling errors. Time Spent 26 minutes. Digitally Signed by ASA GARCIA on 04/19/2022 01:13 PM [facility] [id number] Note ORIGINAL EXAMINATION: CT OF THE ABDOMEN AND PELVIS WITH CONTRAST04/18/2022 6:56 pm TECHNIQUE: CT of the abdomen and pelvis was performed with the administration of intravenous contrast. Multiplanar reformatted images are provided for review. Automated exposure control, iterative reconstruction, and/or weight based adjustment of the mA/kV was utilized to reduce the radiation dose to as low as reasonably achievable. COMPARISON: April 13, 2022 CT chest, February 18, 2019 CT abdomen pelvis HISTORY: ORDERING SYSTEM PROVIDED HISTORY: Reason for Exam: PT STATES WAS FEVERED BUT NOT ANYMORE,STATES NO ABD PAIN OR N/V/D/C, STATES HERE FOR HEART ISSUE male with fever and septic emboli FINDINGS: Images through the lower thorax demonstrate multiple cavitary and non cavitary pulmonary nodules, similar to prior study. There has been interval development of small left pleural effusion with underlying consolidation. The liver is unremarkable in size, contour, and attenuation. There is no intra or extrahepatic biliary duct dilation. No focal mass identified. The pancreas, and bilateral adrenal glands are unremarkable. The spleen is at the upper limit of normal in size. The gallbladder is contracted. The kidneys enhance predominantly symmetrically. Slight areas of hypoenhancement within the right lateral kidney are noted, and may be within wide range of normal. There is no hydronephrosis. The visualized esophagus, stomach, and duodenum are unremarkable. The small bowel exhibits no acute abnormalities. The colon is of normal course and caliber. No evidence of appendicitis. There is no free intraperitoneal air or fluid. The visualized aorta and inferior vena cava are unremarkable. No pathologically enlarged lymph nodes are identified. The urinary bladder is without wall thickening or focal mass. Prostate is within normal limits. No suspicious osteolytic or osteoblastic lesions are identified. Mild straightening of the thoracolumbar spine. No endplate destruction or erosive change. IMPRESSION: 1. Question mild areas of hypoenhancement within the right kidney, which may be within wide range of normal. If there is concern for pyelonephritis, correlate with urinalysis. 2. Borderline splenomegaly. 3. Interval development of small left pleural effusion with underlying atelectasis. 4. Redemonstration of cavitary and non cavitary lung nodules. Interpreted by: Yazmin Kumar DO Preliminary Report By: Yazmin Kumar DO Electronically signed By Yazmin Kumar DO Dictated Date: 04/18/2022 7:17:22 PM Prelim Date: 04/18/2022 7:24:18 PM Sign Date: 04/18/2022 7:24:18 PM Ordering Provider: TANYA WESTFALL [facility] [id number] Note ORIGINAL EXAMINATION: CT OF THE ABDOMEN AND PELVIS WITH CONTRAST04/18/2022 6:56 pm TECHNIQUE: CT of the abdomen and pelvis was performed with the administration of intravenous contrast. Multiplanar reformatted images are provided for review. Automated exposure control, iterative reconstruction, and/or weight based adjustment of the mA/kV was utilized to reduce the radiation dose to as low as reasonably achievable. COMPARISON: April 13, 2022 CT chest, February 18, 2019 CT abdomen pelvis HISTORY: ORDERING SYSTEM PROVIDED HISTORY: Reason for Exam: PT STATES WAS FEVERED BUT NOT ANYMORE,STATES NO ABD PAIN OR N/V/D/C, STATES HERE FOR HEART ISSUE male with fever and septic emboli FINDINGS: Images through the lower thorax demonstrate multiple cavitary and non cavitary pulmonary nodules, similar to prior study. There has been interval development of small left pleural effusion with underlying consolidation. The liver is unremarkable in size, contour, and attenuation. There is no intra or extrahepatic biliary duct dilation. No focal mass identified. The pancreas, and bilateral adrenal glands are unremarkable. The spleen is at the upper limit of normal in size. The gallbladder is contracted. The kidneys enhance predominantly symmetrically. Slight areas of hypoenhancement within the right lateral kidney are noted, and may be within wide range of normal. There is no hydronephrosis. The visualized esophagus, stomach, and duodenum are unremarkable. The small bowel exhibits no acute abnormalities. The colon is of normal course and caliber. No evidence of appendicitis. There is no free intraperitoneal air or fluid. The visualized aorta and inferior vena cava are unremarkable. No pathologically enlarged lymph nodes are identified. The urinary bladder is without wall thickening or focal mass. Prostate is within normal limits. No suspicious osteolytic or osteoblastic lesions are identified. Mild straightening of the thoracolumbar spine. No endplate destruction or erosive change. IMPRESSION: 1. Question mild areas of hypoenhancement within the right kidney, which may be within wide range of normal. If there is concern for pyelonephritis, correlate with urinalysis. 2. Borderline splenomegaly. 3. Interval development of small left pleural effusion with underlying atelectasis. 4. Redemonstration of cavitary and non cavitary lung nodules. Interpreted by: Yazmin Kumar DO Preliminary Report By: Yazmin Kumar DO Electronically signed By Yazmin Kumar DO Dictated Date: 04/18/2022 7:17:22 PM Prelim Date: 04/18/2022 7:24:18 PM Sign Date: 04/18/2022 7:24:18 PM Ordering Provider: TANYA HERNANDEZ [facility]01-01-2023 Cardiology Progress note Subjective Doing okay. Still having intermittent fevers and chills. Objective Vitals and Measurements T: 37.0 C (Oral) TMIN: 37.0 C (Oral) TMAX: 38.6 C (Oral) HR: 115(Apical) RR: 16 BP: 125/86 SpO2: 98% Intake and Output 7AM Yesterday to 7AM Today Intake and Output (Last 24 hours) Intake Output Emesis Count 0.00 Total Summary Total Intake 0.00 Total Output 0.00 Fluid Balance 0.00 Physical Exam GENERAL: Well nourished; no acute distress. PSYCHIATRIC: Alert and oriented x 3, cooperative, mood normal, affect normal. HEAD: Normocephalic, nontraumatic head. EYES: Pupils equal, round, and reactive to light; conjunctiva clear bilaterally. Lids within normallimits. NECK: Supple, no posterior midline tenderness. Normal range of motion. No thyromegaly noted. CARDIAC: Regular rate, regular rhythm, no murmurs noted. RESPIRATORY: Regular rate and depth; no distress, RIGHT lung clear, LEFT lung clear. Breath sounds normal. ABDOMEN: Soft, nontender. Normal bowel sounds. EXTREMITIES: No trace lower extremity pitting edema. No lymphedema. Dorsalis Pedis pulse +2/4 bilaterally. Posterior Tibialis pulse +2/4 bilaterally. NEURO: Moves all extremities DERM: Warm and dry. Normal turgor. No observed exanthem. No significant dandruff. Weight Dosing Weight: 53.8 kg (04/13/22) Medications Medications (11) Active Scheduled: (4) gentamicin 270 mg 6.75 mL, IV Piggyback, q24h heparin 5,000 units/mL (1 mL) vial 5,000 unit(s) 1 mL, Subcutaneous, q8h lidocaine 1% (MPF) 2 mL vial pf 30 mg 3 mL, Intradermal, prep pharm nafcillin 2 gram(s), IV Piggyback, q4hr Continuous: (0) PRN: (7) acetaminophen 325 mg Tablet 650 mg 2 tab(s), Oral, q4h albuterol - ipratropium 2.5 mg-0.5 mg/3 mL Inhal Milagro UD 3 mL, Inhalation, q4hRT guaifenesin 100 mg/5 mL 120 mL liquid 200 mg 10 mL, Oral, q4h melatonin 3 mg tablet 3 mg 1 tab(s), Oral, qHS naproxen 250 mg tablet 250 mg 1 tab(s), Oral, qDay ondansetron 2 mg/ 1 mL 2 mL INJ 4 mg 2 mL, IV Push, q4h polyethylene glycol 3350 - UD packet 17 gram(s) 15 mL, Oral, qDay Lab Results 04/18 04:50 WBC: 16.9 H Hgb: 8.1 L Hct: 24.8 L Platelet: 309 Neutrophil %: 76.8 H Glucose Level: 92 Sodium Level: 134 L Potassium Level: 4.0 BUN: 6.0 L Creatinine Lvl (s): 0.62 04/17 05:05 Glucose Level: 109 Sodium Level: 134 L Potassium Level: 3.8 BUN: 6.0 L Creatinine Lvl (s): 0.62 EKG EKG - Completed -- 04/17/22 11:46:00 EST Electrocardiogram (EKG) - InProcess -- 04/16/22 18:12:00 EST Electrocardiogram (EKG) - Ordered -- 04/18/22 1:34:00 EST Assessment/Plan 1. Tricuspid valve endocarditis 2. MSSA bacteremia 3. Sinus tachycardia 4. IV drug use 5. Hep C Cardiology consulted for tricuspid valve endocarditis. On review of echocardiogram, patient has vegetation that is 1 cm in widest length. In addition BNP is elevated and concerning for subclinical heart failure. CT surgery has been consulted with no plans for surgical intervention. Patient continues to have fevers and positive blood cultures. We will plan to undergo YESSENIA on Tuesday. Sinus tachycardia secondary to underlying endocarditis and infection. Would continue to treat underlying cause. No need for beta-blockers. Thank you for the consult. Cardiology will continue to follow. Digitally Signed by STACEY SANDHU MD on 04/18/2022 01:33 PM [id number] Note Date of Service 04/18/2022 Chief Complaint Infective endocarditis Subjective 27-year-old -[place] male who has past history of IV drug abuse, hepatitis C and tobacco dependence. Patient presented to the [facility] on 04/13/2022 after being transferred from [place] due to concern for infective endocarditis. Since being at [facility] echocardiogram has confirmed vegetation of the tricuspid valve, initial blood cultures grew MSSA organism, repeat blood culture continues to grow gram-positive cocci in cluster. Patient is being followed by infectious disease and has been on culture directed antibiotics. The patient continues to have temperature spikes, has been persistently tachycardic and for that reason cardiology was consulted yesterday. They believe that he is in subclinical heart failure and consulted cardiothoracic surgery for evaluation for surgical intervention. Awaiting note from cardiothoracic surgery attending. Overnight the patient had some chest pain which she stated that was alleviated appropriately with Tylenol. When I saw him this morning he was comfortable and had no acute complaints. Objective Vitals and Measurements T: 37.2 C (Oral) TMIN: 36.9 C (Oral) TMAX: 38.6 C (Oral) HR: 114(Apical) RR: 18 BP: 125/85 SpO2: 100% Intake and Output 7AM Yesterday to 7AM Today Intake and Output (Last 24 hours) Intake Output Stool Count 0.00 Emesis Count 0.00 Total Summary Total Intake 0.00 Total Output 0.00 Fluid Balance 0.00 Physical Exam GENERAL: Pt is comfortable in bed. Appears in no acute distress. HEENT: Mucous membranes pink and moist NEURO: Alert and oriented X 3 CVS: S1 & S2 audible, tachycardic CHEST : No accesory muscle use, equal air entry bilaterally, no adventitious breath sounds GI: Normoactive BS, abdomen soft and non tender EXTREMITIES: No LE edema Weight Dosing Weight: 53.8 kg (04/13/22) Medications Medications (10) Active Scheduled: (3) ceFAZolin syringe 2 gram(s) 20 mL, IV Push (INT), q8h heparin 5,000 units/mL (1 mL) vial 5,000 unit(s) 1 mL, Subcutaneous, q8h lidocaine 1% (MPF) 2 mL vial pf 30 mg 3 mL, Intradermal, prep pharm Continuous: (0) PRN: (7) acetaminophen 325 mg Tablet 650 mg 2 tab(s), Oral, q4h albuterol - ipratropium 2.5 mg-0.5 mg/3 mL Inhal Milagro UD 3 mL, Inhalation, q4hRT guaifenesin 100 mg/5 mL 120 mL liquid 200 mg 10 mL, Oral, q4h melatonin 3 mg tablet 3 mg 1 tab(s), Oral, qHS naproxen 250 mg tablet 250 mg 1 tab(s), Oral, qDay ondansetron 2 mg/ 1 mL 2 mL INJ 4 mg 2 mL, IV Push, q4h polyethylene glycol 3350 - UD packet 17 gram(s) 15 mL, Oral, qDay Lab Results 04/18 04:50 WBC: 16.9 H Hgb: 8.1 L Hct: 24.8 L Platelet: 309 Neutrophil %: 76.8 H Glucose Level: 92 Sodium Level: 134 L Potassium Level: 4.0 BUN: 6.0 L Creatinine Lvl (s): 0.62 04/17 05:05 Glucose Level: 109 Sodium Level: 134 L Potassium Level: 3.8 BUN: 6.0 L Creatinine Lvl (s): 0.62 EKG EKG - Completed -- 04/17/22 11:46:00 EST Electrocardiogram (EKG) - InProcess -- 04/16/22 18:12:00 EST Electrocardiogram (EKG) - Ordered -- 04/18/22 1:34:00 EST Assessment/Plan 1. Sepsis 2. Infective endocarditis 3. MSSA bacteremia 4. Sinus tachycardia 5. QTC prolongation 6. Hypomagnesemia 7. Microcytic anemia 8. Leukocytosis 9. History of IV drug use Plan: Of concern the patient continues to be febrile, his white cell count is going up and repeat blood culture yesterday was again growing gram-positive cocci in cluster. This is despite him being on culture directed antibiotic therapy. Cardiothoracic surgery consulted, awaiting their final input. I spoke to the patient this morning about the possible need for surgical intervention if he continues to be persistently bacteremic and continue to have temperature spikes. For now continue with current antibiotic therapy, greatly appreciate infectious disease input with regards to the management of this patient. QTC corrected, magnesium level this morning 1.9. Hemoglobin stable Digitally Signed by LAN CRAFT MD on 04/18/2022 08:40 AM [id number] Cardiology Progress note Subjective Doing okay. Still having intermittent fevers and chills. Objective Vitals and Measurements T: 37.0 C (Oral) TMIN: 37.0 C (Oral) TMAX: 38.6 C (Oral) HR: 115(Apical) RR: 16 BP: 125/86 SpO2: 98% Intake and Output 7AM Yesterday to 7AM Today Intake and Output (Last 24 hours) Intake Output Emesis Count 0.00 Total Summary Total Intake 0.00 Total Output 0.00 Fluid Balance 0.00 Physical Exam GENERAL: Well nourished; no acute distress. PSYCHIATRIC: Alert and oriented x 3, cooperative, mood normal, affect normal. HEAD: Normocephalic, nontraumatic head. EYES: Pupils equal, round, and reactive to light; conjunctiva clear bilaterally. Lids within normallimits. NECK: Supple, no posterior midline tenderness. Normal range of motion. No thyromegaly noted. CARDIAC: Regular rate, regular rhythm, no murmurs noted. RESPIRATORY: Regular rate and depth; no distress, RIGHT lung clear, LEFT lung clear. Breath sounds normal. ABDOMEN: Soft, nontender. Normal bowel sounds. EXTREMITIES: No trace lower extremity pitting edema. No lymphedema. Dorsalis Pedis pulse +2/4 bilaterally. Posterior Tibialis pulse +2/4 bilaterally. NEURO: Moves all extremities DERM: Warm and dry. Normal turgor. No observed exanthem. No significant dandruff. Weight Dosing Weight: 53.8 kg (04/13/22) Medications Medications (11) Active Scheduled: (4) gentamicin 270 mg 6.75 mL, IV Piggyback, q24h heparin 5,000 units/mL (1 mL) vial 5,000 unit(s) 1 mL, Subcutaneous, q8h lidocaine 1% (MPF) 2 mL vial pf 30 mg 3 mL, Intradermal, prep pharm nafcillin 2 gram(s), IV Piggyback, q4hr Continuous: (0) PRN: (7) acetaminophen 325 mg Tablet 650 mg 2 tab(s), Oral, q4h albuterol - ipratropium 2.5 mg-0.5 mg/3 mL Inhal Milagro UD 3 mL, Inhalation, q4hRT guaifenesin 100 mg/5 mL 120 mL liquid 200 mg 10 mL, Oral, q4h melatonin 3 mg tablet 3 mg 1 tab(s), Oral, qHS naproxen 250 mg tablet 250 mg 1 tab(s), Oral, qDay ondansetron 2 mg/ 1 mL 2 mL INJ 4 mg 2 mL, IV Push, q4h polyethylene glycol 3350 - UD packet 17 gram(s) 15 mL, Oral, qDay Lab Results 04/18 04:50 WBC: 16.9 H Hgb: 8.1 L Hct: 24.8 L Platelet: 309 Neutrophil %: 76.8 H Glucose Level: 92 Sodium Level: 134 L Potassium Level: 4.0 BUN: 6.0 L Creatinine Lvl (s): 0.62 04/17 05:05 Glucose Level: 109 Sodium Level: 134 L Potassium Level: 3.8 BUN: 6.0 L Creatinine Lvl (s): 0.62 EKG EKG - Completed -- 04/17/22 11:46:00 EST Electrocardiogram (EKG) - InProcess -- 04/16/22 18:12:00 EST Electrocardiogram (EKG) - Ordered -- 04/18/22 1:34:00 EST Assessment/Plan 1. Tricuspid valve endocarditis 2. MSSA bacteremia 3. Sinus tachycardia 4. IV drug use 5. Hep C Cardiology consulted for tricuspid valve endocarditis. On review of echocardiogram, patient has vegetation that is 1 cm in widest length. In addition BNP is elevated and concerning for subclinical heart failure. CT surgery has been consulted with no plans for surgical intervention. Patient continues to have fevers and positive blood cultures. We will plan to undergo YESSENIA on Tuesday. Sinus tachycardia secondary to underlying endocarditis and infection. Would continue to treat underlying cause. No need for beta-blockers. Thank you for the consult. Cardiology will continue to follow. Digitally Signed by STACEY SANDHU MD on 04/18/2022 01:33 PM [id number] Infectious disease Progress note Discussed with cardiology, patient continues to have fevers at times, we will plan on a YESSENIA and will adjust antimicrobial therapy to IV nafcillin and gentamicin for a short course pending repeat blood cultures will be covering this week Digitally Signed by TANYA WESTFALL BA, MD on 04/18/2022 01:24 PM [id number] Infectious disease Progress note Discussed with cardiology, patient continues to have fevers at times, we will plan on a YESSENIA and will adjust antimicrobial therapy to IV nafcillin and gentamicin for a short course pending repeat blood cultures will be covering this week Digitally Signed by TANYA WESTFALL BA, MD on 04/18/2022 01:24 PM [id number] Infectious disease Progress note Date of Service 04/16/2022 Objective Vitals and Measurements T: 36.4 C (Oral) TMIN: 36.4 C (Oral) TMAX: 37.9 C (Oral) HR: 123(Monitored) RR: 18 BP: 122/86 SpO2:99% Physical Exam Chart reviewed, patient examined. Patient is arousable, alert and oriented x3, resting in bed. Patient is minimally conversive this morning, preferring to give yes or no answers. No c/o NVD. Really no complaints this AM, requesting to go back to sleep. Respirations easy and nonlabored at rest, 99% on RA. Patient has been febrile in the last 24 hours. Mycoplasma negative RPR nonreactive Hepatitis A/B nonreactive Hepatitis C reactive 04/15/2022 HIV 1/2 nonreactive SARS COVID negative Flu A/B negative RSV negative BC ID PCR- Staphylococcus & Staphylococcus Aureus detected 04/13/2022 FOCUSED ASSESSMENT: CVS: Regular S1S2, sinus tachycardia on monitor LUNGS: Clear diminished bilaterally, denies SOB, easy respirations ABDOMEN: Nondistended, rounded, soft, nontender, + bowel sounds, passing gas, denies constipation SKIN: No rashes noted, BUE track mejia NURSING EDUCATION CONSULTANT INCISIONS/DRESSINGS: None EXTREMITIES: Generalized fatigue-requesting to go back to sleep LINES/TUBES/DRAINS: RAC IV dressing dry & intact, no drainage or erythema at site CURRENT ANTIBIOTICS: Vanco 1.5g Q12h 04/13 - 04/15 Zosyn 3.375g IV Q8h 04/14 - 04/15 Cefazolin 2g IV Q8h 04/16 - present CULTURE RESULTS/LOY: 04/13 Blood Cultures 05/20 -P Staphylococcus aureus Staphylococcus aureus #2 04/13 Legionella Urine -F Presumptive negative for L. pneumophila Serogroup 1 antigen in urine 04/13 SPAG Urine -F Presumptive negative for pneumococcal pneumonia 04/14 Blood Cultures 2/ no growth to date -P Weight Dosing Weight: 53.8 kg (04/13/22) Medications Medications (11) Active Scheduled: (1) ceFAZolin syringe 2 gram(s) 20 mL, IV Push (INT), q8h Continuous: (1) NS (0.9% nacl) 1,000 mL 1,000 mL, Intravenous, 100 mL/hr PRN: (9) acetaminophen 325 mg Tablet 650 mg 2 tab(s), Oral, q4h albuterol - ipratropium 2.5 mg-0.5 mg/3 mL Inhal Milagro UD 3 mL, Inhalation, q4hRT guaifenesin 100 mg/5 mL 120 mL liquid 200 mg 10 mL, Oral, q4h melatonin 3 mg tablet 3 mg 1 tab(s), Oral, qHS ondansetron 2 mg/ 1 mL 2 mL INJ 4 mg 2 mL, IV Push, q4h oxycodone 5 mg tablet (immediate release) 5 mg 1 tab(s), Oral, q4h polyethylene glycol 3350 - UD packet 17 gram(s) 15 mL, Oral, qDay prochlorperazine 10 mg/2 mL vial 5 mg 1 mL, IV Push, q6h tramadol 50 mg Tablet 50 mg 1 tab(s), Oral, q4h Lab Results 04/16 04:17 WBC: 14.6 H Hgb: 8.2 L Hct: 24.7 L Platelet: 227 Neutrophil %: 74.4 Glucose Level: 93 Sodium Level: 136 Potassium Level: 3.8 BUN: 6.0 L Creatinine Lvl (s): 0.69 04/15 04:49 WBC: 15.5 H Hgb: 8.2 L Hct: 24.8 L Platelet: 187 Neutrophil %: 79.2 H Glucose Level: 98 Sodium Level: 138 Potassium Level: 3.6 BUN: 6.0 L Creatinine Lvl (s): 0.59 L Imaging Results and Diagnostics No new results at this time Problem List SIRS criteria-on admission MSSA bacteremia Sepsis Leukocytosis and fevers Multiple cavitary lung nodules suggestive of septic emboli History of hepatitis C History of IV drug use Digitally Signed by Parvin Burns RN on 04/16/2022 12:01 PM [id number] Cardiothoracic surgery Consult note Date of Service I saw this very unfortunate 27-year-old on April 18, 2022. I agree with the nurse practitioners evaluation. 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 He has only mild tricuspid valve regurgitation at this point. His other valves appear to be okay. On physical exam, he is in no distress. His vital signs are stable. His head is normocephalic and atraumatic. His heart is a regular rate and rhythm and I cannot hear a murmur. His lungs are clear to auscultation but he he was not terribly cooperative in taking deep breaths. His abdomen is benign without tonia s tenderness or guarding. He has no peripheral clubbing cyanosis nor edema. He has a grossly normalmotor neurologic exam. He is alert and orient x3. In assessment, there is no indication for surgeryat this point and he is being treated appropriately with antibiotics. The larger problem is recidivism with intravenous drug abuse, and he is unlikely to do well in the future unless he is cooperative with an aggressive rehabilitation program. I have very frankly emphasized this to the patient, andemphasized that he will absolutely need to complete his entire antibiotic course, and that continued intravenous or subcutaneous drug injection is very likely to lead to his early demise. Digitally Signed by YAZMIN FERNANDEZ MD on 04/18/2022 10:34 AM [facility] [id number] Cardiology Consult note Reason for Consultation Tricuspid valve endocarditis History of Present Illness 27-year-old male with known history of IV drug use, tobacco use disorder, hep C Initially presented with chest pain and shortness of breath. Found to have tricuspid valve endocarditis with positive blood cultures for MSSA. Patient has been followed by ID with plans for long-term antibiotics. Patient did have an echocardiogram that mention tricuspid valve endocarditis. Measured close to 1 cm in diameter at longest length. Has not undergone YESSENIA. Labs reviewed. Patient still with persistent leukocytosis, stable anemia, electrolytes within normal limits, normal troponin as well as elevated BNP to 429 on admission. Currently patient is doing okay. Breathing improved. Denies additional chest pain or pressure. Telemetry reviewed. Patient is in sinus tachycardia with heart rates primarily in the 110s. Review of Systems Constitutional: Positive for fever, negative for fatigue, positive for chills, negative for weight changes HEENT: Negative for reported sleep apnea, negative for swollen neck glands Cardiovascular: Positive for chest pain, negative for palpitations, negative for lightheadedness/syncope, negative for orthopnea, negative for lower extremity swelling Respiratory: Negative for shortness of breath at rest, negative for shortness of breath with activity, for cough, negative for wheezing Gastrointestinal: Negative for abdominal pain, negative for nausea, negative for melena, negative for hematochezia Genitourinary: Negative for dysuria, negative for urgency, negative for urinary frequency Musculoskeletal: Negative for back pain, negative for abnormal joint pains, negative for unusual muscle pains Skin: Negative for rashes, negative for ulcers Neurological: Negative for facial droop, negative for focal numbness, negative for weakness Psychiatric: Negative for anxiety, negative for depression Endocrine: Negative for hot flashes, negative for excessive thirst Hematologic/Lymphatic: No easy bruising, no unusual bleeding Physical Exam Vitals and Measurements T: 37.5 C (Oral) TMIN: 36.5 C (Oral) TMAX: 37.5 C (Oral) HR: 121(Apical) RR: 18 BP: 135/95 SpO2: 100% Weight Dosing Weight: 53.8 kg (04/13/22) GENERAL: Well nourished; no acute distress. PSYCHIATRIC: Alert and oriented x 3, cooperative, mood normal, affect normal. HEAD: Normocephalic, nontraumatic head. EYES: Pupils equal, round, and reactive to light; conjunctiva clear bilaterally. Lids within normallimits. NECK: Supple, no posterior midline tenderness. Normal range of motion. No thyromegaly noted. CARDIAC: Regular rate, regular rhythm, systolic ejection murmur noted. RESPIRATORY: Regular rate and depth; no distress, RIGHT lung clear, LEFT lung clear. Breath sounds normal. ABDOMEN: Soft, nontender. Normal bowel sounds. EXTREMITIES: No trace lower extremity pitting edema. No lymphedema. Dorsalis Pedis pulse +2/4 bilaterally. Posterior Tibialis pulse +2/4 bilaterally. NEURO: Moves all extremities DERM: Warm and dry. Normal turgor. No observed exanthem. No significant dandruff. Lab Results 04/17 05:05 Glucose Level: 109 Sodium Level: 134 L Potassium Level: 3.8 BUN: 6.0 L Creatinine Lvl (s): 0.62 04/16 04:17 WBC: 14.6 H Hgb: 8.2 L Hct: 24.7 L Platelet: 227 Neutrophil %: 74.4 Glucose Level: 93 Sodium Level: 136 Potassium Level: 3.8 BUN: 6.0 L Creatinine Lvl (s): 0.69 Assessment/Plan Orders: N-Terminal proBNP 1. Tricuspid valve endocarditis 2. MSSA bacteremia 3. Sinus tachycardia 4. IV drug use 5. Hep C Cardiology consulted for tricuspid valve endocarditis. On review of echocardiogram, patient has vegetation that is 1 cm in widest length. In addition BNP is elevated and concerning for subclinical heart failure. Case discussed with infectious disease. Size of vegetation may not be amenable to treatment with antibiotics and require transfer to hospital for his surgery versus tricuspid valve suction via percutaneous procedure. We will consult cardiothoracic surgery. If no plans for surgery at [place], would likely recommend transfer to hospital in [place] ( versus [facility]). No acute indication for YESSENIA at this time. Earliest this would occur would be on Tuesday. Patient can be transferred prior to YESSENIA. We will await CT surgery recommendations and discuss with ID for definitive plan tomorrow. Sinus tachycardia secondary to underlying endocarditis and infection. Would continue to treat underlying cause. No need for beta-blockers Problem List/Past Medical History Ongoing No qualifying data Historical No qualifying data Procedure/Surgical History Hernia Medications Inpatient ceFAZolin, 2 gram(s)= 20 mL, IV Push (INT), q8h DuoNeb, 3 mL, Inhalation, q4hRT, PRN guaiFENesin, 200 mg= 10 mL, Oral, q4h, PRN heparin 5000 units/mL injection, 5000 unit(s)= 1 mL, Subcutaneous, q8h lidocaine 1% preservative-free injectable solution, 30 mg= 3 mL, Intradermal, prep pharm magnesium sulfate for IV bolus, 4 gram(s)= 100 mL, IV Piggyback, Once melatonin, 3 mg= 1 tab(s), Oral, qHS, PRN Miralax Powder Packet, 17 gram(s)= 15 mL, Oral, qDay, PRN naproxen 250 mg oral tablet, 250 mg= 1 tab(s), Oral, qDay, PRN Tylenol, 650 mg= 2 tab(s), Oral, q4h, PRN Zofran, 4 mg= 2 mL, IV Push, q4h, PRN Home naproxen 250 mg oral tablet, 250 mg= 1 tab(s), Oral, qDay, PRN Allergies NKA Social History Smoking Status - 12/25/2015 Current every day smoker Substance Abuse Use: Current. Type: Heroin. Frequency: 1-2 times per week. Previous treatment: None. Started at age: 20 Years. IV drug use; Yes. Has drug use interfered with your work or home life? No. Ready to change: Yes. Concerns about substance abuse in household: No., 12/06/2019 Tobacco Tobacco Use: 10 or more cigarettes (1/2 pack or more)/day in last 30 days., 02/18/2019 Immunizations No qualifying data available. Digitally Signed by STACEY SANDHU MD on 04/17/2022 12:53 PM [facility] [id number] Note Date of Service 04/18/2022 Chief Complaint Infective endocarditis Subjective 27-year-old -[place] male who has past history of IV drug abuse, hepatitis C and tobacco dependence. Patient presented to the [facility] on 04/13/2022 after being transferred from [place] due to concern for infective endocarditis. Since being at [facility] echocardiogram has confirmed vegetation of the tricuspid valve, initial blood cultures grew MSSA organism, repeat blood culture continues to grow gram-positive cocci in cluster. Patient is being followed by infectious disease and has been on culture directed antibiotics. The patient continues to have temperature spikes, has been persistently tachycardic and for that reason cardiology was consulted yesterday. They believe that he is in subclinical heart failure and consulted cardiothoracic surgery for evaluation for surgical intervention. Awaiting note from cardiothoracic surgery attending. Overnight the patient had some chest pain which she stated that was alleviated appropriately with Tylenol. When I saw him this morning he was comfortable and had no acute complaints. Objective Vitals and Measurements T: 37.2 C (Oral) TMIN: 36.9 C (Oral) TMAX: 38.6 C (Oral) HR: 114(Apical) RR: 18 BP: 125/85 SpO2: 100% Intake and Output 7AM Yesterday to 7AM Today Intake and Output (Last 24 hours) Intake Output Stool Count 0.00 Emesis Count 0.00 Total Summary Total Intake 0.00 Total Output 0.00 Fluid Balance 0.00 Physical Exam GENERAL: Pt is comfortable in bed. Appears in no acute distress. HEENT: Mucous membranes pink and moist NEURO: Alert and oriented X 3 CVS: S1 & S2 audible, tachycardic CHEST : No accesory muscle use, equal air entry bilaterally, no adventitious breath sounds GI: Normoactive BS, abdomen soft and non tender EXTREMITIES: No LE edema Weight Dosing Weight: 53.8 kg (04/13/22) Medications Medications (10) Active Scheduled: (3) ceFAZolin syringe 2 gram(s) 20 mL, IV Push (INT), q8h heparin 5,000 units/mL (1 mL) vial 5,000 unit(s) 1 mL, Subcutaneous, q8h lidocaine 1% (MPF) 2 mL vial pf 30 mg 3 mL, Intradermal, prep pharm Continuous: (0) PRN: (7) acetaminophen 325 mg Tablet 650 mg 2 tab(s), Oral, q4h albuterol - ipratropium 2.5 mg-0.5 mg/3 mL Inhal Milagro UD 3 mL, Inhalation, q4hRT guaifenesin 100 mg/5 mL 120 mL liquid 200 mg 10 mL, Oral, q4h melatonin 3 mg tablet 3 mg 1 tab(s), Oral, qHS naproxen 250 mg tablet 250 mg 1 tab(s), Oral, qDay ondansetron 2 mg/ 1 mL 2 mL INJ 4 mg 2 mL, IV Push, q4h polyethylene glycol 3350 - UD packet 17 gram(s) 15 mL, Oral, qDay Lab Results 04/18 04:50 WBC: 16.9 H Hgb: 8.1 L Hct: 24.8 L Platelet: 309 Neutrophil %: 76.8 H Glucose Level: 92 Sodium Level: 134 L Potassium Level: 4.0 BUN: 6.0 L Creatinine Lvl (s): 0.62 04/17 05:05 Glucose Level: 109 Sodium Level: 134 L Potassium Level: 3.8 BUN: 6.0 L Creatinine Lvl (s): 0.62 EKG EKG - Completed -- 04/17/22 11:46:00 EST Electrocardiogram (EKG) - InProcess -- 04/16/22 18:12:00 EST Electrocardiogram (EKG) - Ordered -- 04/18/22 1:34:00 EST Assessment/Plan 1. Sepsis 2. Infective endocarditis 3. MSSA bacteremia 4. Sinus tachycardia 5. QTC prolongation 6. Hypomagnesemia 7. Microcytic anemia 8. Leukocytosis 9. History of IV drug use Plan: Of concern the patient continues to be febrile, his white cell count is going up and repeat blood culture yesterday was again growing gram-positive cocci in cluster. This is despite him being on culture directed antibiotic therapy. Cardiothoracic surgery consulted, awaiting their final input. I spoke to the patient this morning about the possible need for surgical intervention if he continues to be persistently bacteremic and continue to have temperature spikes. For now continue with current antibiotic therapy, greatly appreciate infectious disease input with regards to the management of this patient. QTC corrected, magnesium level this morning 1.9. Hemoglobin stable Digitally Signed by LAN CRAFT MD on 04/18/2022 08:40 AM [id number] Cardiothoracic surgery Consult note Date of Service 04/17/22 Reason for Consultation TV endocarditis Referring Physician Dr. Jerome History of Present Illness This is a split shared visit with Dr. Fernandez. This is a 27-year-old male with past medical history of tobacco use, IV drug abuse (reports last use 3 months ago), hep C, and recent pneumonia in November 2021. He has been experiencing diffuse bilateral chest pain and shortness of breath over the past several weeks with a nonproductive cough. Denies any fever, chills, nausea vomiting, or peripheral edema. He originally presented to [facility] emergency room on 04/13/2022 where he was noted to have leukocytosis with a WBC of 18.2, elevated LFTs. COVID-19 negative. CTA of the chest was negative for pulmonary emboli however did reveal multiple cavitary nodules diffusely throughout the lungs with the largest in the right middle lobe measuring 3.6 cm. He was transferred to [facility] for further evaluation. Blood cultures from 1227 positive for Staph aureus. Seen by infectious disease and started on cefazolin. Echocardiogram on 04/14/2022 showing an EF of 50 to 55%, mild tricuspid valve regurgitation with tricuspid valve vegetation. Repeat blood Gram stain on 04/14/2022 showing gram-positive cocci in cluster. Seen and evaluated by cardiology who has measured to the tricuspid valve vegetation and reports this being close to 1 cmin diameter at its longest length. Patient has not had a YESSENIA completed. Cardiothoracic surgery has been consulted for tricuspid valve endocarditis. Review of Systems Constitutional: Denies fever, chills, weight loss, weight gain HEENT: Denies dysphagia, hearing loss, headaches, use of glasses, has all teeth, has not seen a dentist Respiratory: See HPI CV: See HPI Vascular: Denies claudication, varicose veins, nonhealing ulcers GI: Denies nausea, vomiting, constipation, diarrhea : Denies dysuria, hematuria Neuro: Denies weakness, seizures, numbness or tingling Endo: Denies heat/cold intolerance, hair loss, polyuria Hemo-/oncology: Denies bleeding, bruising, lymphadenopathy Mr./Skeletal: Denies arthralgia, back pain, leg cramps Psych: Positive anxiousness; denies suicidal ideations Physical Exam Vitals and Measurements T: 36.9 C (Oral) TMIN: 36.5 C (Oral) TMAX: 37.5 C (Oral) HR: 128(Apical) RR: 18 BP: 131/88 SpO2: 98% Weight Dosing Weight: 53.8 kg (04/13/22) Additional: Alert, oriented x4, appropriate HEENT: Normocephalic, atraumatic, PERRLA +3 mm sluggish bilaterally, neck supple, negative JVD, no carotid bruit, dentition good Lungs: Unlabored respirations, lung sounds clear bilaterally, SPO2 98 to 100% on room air Heart: Sinus tachycardia, S1-S2, no murmur or rub, heart rate ranging 10 3-1 28 Abdomen: Flat, nontender, bowel sounds present Extremities: Well perfused, pedal pulses +2 bilaterally, no lower leg edema Integumentary: Well-healed right forearm procedure site; well-healed left forearm previous cut mejia; well-healed left antecubital track marking, no rashes Neuro: Cranial nerves II through VIII intact Lab Results 04/17 05:05 Glucose Level: 109 Sodium Level: 134 L Potassium Level: 3.8 BUN: 6.0 L Creatinine Lvl (s): 0.62 04/16 04:17 WBC: 14.6 H Hgb: 8.2 L Hct: 24.7 L Platelet: 227 Neutrophil %: 74.4 Glucose Level: 93 Sodium Level: 136 Potassium Level: 3.8 BUN: 6.0 L Creatinine Lvl (s): 0.69 Imaging Results and Diagnostics Summary: 1. Left ventricle: The cavity size is normal. Wall thickness is normal. Systolic function is normal. The estimated ejection fraction is 50-55%. Mild hypokinesis of the anteroseptal and anterior myocardium. 2. Right ventricle: The RV systolic pressure by Doppler is 27 mm Hg. 3. Tricuspid valve: There is a vegetation. There is mild regurgitation. [1] EKG EC04/17/22: SINUS TACHYCARDIA...rate> 99 NORMAL ECG Electronic Signature: KIKA GALARZA MD 04/17/2022 13:31:41 Assessment/Plan 1. Endocarditis of tricuspid valve Surgical evaluation pending by Dr. Fernandez. 2. Bacteremia 3. Tobacco use 4. Hepatitis C 5. IV drug abuse Approximately 40 minutes spent obtaining past medical history from EMR, conducting urzz-gn-ddnd visit with patient and family at bedside, and dictating details of today's consultation. Problem List/Past Medical History Ongoing Bacteremia Endocarditis of tricuspid valve IV drug abuse Tobacco use Hepatitis C Procedure/Surgical History Umbilical Hernia Right forearm abscess Medications Inpatient ceFAZolin, 2 gram(s)= 20 mL, IV Push (INT), q8h DuoNeb, 3 mL, Inhalation, q4hRT, PRN guaiFENesin, 200 mg= 10 mL, Oral, q4h, PRN heparin 5000 units/mL injection, 5000 unit(s)= 1 mL, Subcutaneous, q8h lidocaine 1% preservative-free injectable solution, 30 mg= 3 mL, Intradermal, prep pharm melatonin, 3 mg= 1 tab(s), Oral, qHS, PRN Miralax Powder Packet, 17 gram(s)= 15 mL, Oral, qDay, PRN naproxen 250 mg oral tablet, 250 mg= 1 tab(s), Oral, qDay, PRN Tylenol, 650 mg= 2 tab(s), Oral, q4h, PRN Zofran, 4 mg= 2 mL, IV Push, q4h, PRN Home naproxen 250 mg oral tablet, 250 mg= 1 tab(s), Oral, qDay, PRN Allergies NKA Social History Tobacco use: Current everyday user Alcohol use: Patient denies Illicit drug use: Current heroin use, last used 3 months ago Occupation: Works at [employer] Living arrangements: Lives at home with mom Family History Father: Alive, unknown health history Mother: Alive, leaky valve 5 siblings all living and healthy Immunizations No qualifying data available. [1] Echocardiogram, Adult - CV; Wen Shoemaker Furn[employer] 04/14/2022 13:42 EST Digitally Signed by MAYLIN FIELDS on 04/17/2022 02:30 PM [id number] Cardiology Consult note Reason for Consultation Tricuspid valve endocarditis History of Present Illness 27-year-old male with known history of IV drug use, tobacco use disorder, hep C Initially presented with chest pain and shortness of breath. Found to have tricuspid valve endocarditis with positive blood cultures for MSSA. Patient has been followed by ID with plans for long-term antibiotics. Patient did have an echocardiogram that mention tricuspid valve endocarditis. Measured close to 1 cm in diameter at longest length. Has not undergone YESSENIA. Labs reviewed. Patient still with persistent leukocytosis, stable anemia, electrolytes within normal limits, normal troponin as well as elevated BNP to 429 on admission. Currently patient is doing okay. Breathing improved. Denies additional chest pain or pressure. Telemetry reviewed. Patient is in sinus tachycardia with heart rates primarily in the 110s. Review of Systems Constitutional: Positive for fever, negative for fatigue, positive for chills, negative for weight changes HEENT: Negative for reported sleep apnea, negative for swollen neck glands Cardiovascular: Positive for chest pain, negative for palpitations, negative for lightheadedness/syncope, negative for orthopnea, negative for lower extremity swelling Respiratory: Negative for shortness of breath at rest, negative for shortness of breath with activity, for cough, negative for wheezing Gastrointestinal: Negative for abdominal pain, negative for nausea, negative for melena, negative for hematochezia Genitourinary: Negative for dysuria, negative for urgency, negative for urinary frequency Musculoskeletal: Negative for back pain, negative for abnormal joint pains, negative for unusual muscle pains Skin: Negative for rashes, negative for ulcers Neurological: Negative for facial droop, negative for focal numbness, negative for weakness Psychiatric: Negative for anxiety, negative for depression Endocrine: Negative for hot flashes, negative for excessive thirst Hematologic/Lymphatic: No easy bruising, no unusual bleeding Physical Exam Vitals and Measurements T: 37.5 C (Oral) TMIN: 36.5 C (Oral) TMAX: 37.5 C (Oral) HR: 121(Apical) RR: 18 BP: 135/95 SpO2: 100% Weight Dosing Weight: 53.8 kg (04/13/22) GENERAL: Well nourished; no acute distress. PSYCHIATRIC: Alert and oriented x 3, cooperative, mood normal, affect normal. HEAD: Normocephalic, nontraumatic head. EYES: Pupils equal, round, and reactive to light; conjunctiva clear bilaterally. Lids within normallimits. NECK: Supple, no posterior midline tenderness. Normal range of motion. No thyromegaly noted. CARDIAC: Regular rate, regular rhythm, systolic ejection murmur noted. RESPIRATORY: Regular rate and depth; no distress, RIGHT lung clear, LEFT lung clear. Breath sounds normal. ABDOMEN: Soft, nontender. Normal bowel sounds. EXTREMITIES: No trace lower extremity pitting edema. No lymphedema. Dorsalis Pedis pulse +2/4 bilaterally. Posterior Tibialis pulse +2/4 bilaterally. NEURO: Moves all extremities DERM: Warm and dry. Normal turgor. No observed exanthem. No significant dandruff. Lab Results 04/17 05:05 Glucose Level: 109 Sodium Level: 134 L Potassium Level: 3.8 BUN: 6.0 L Creatinine Lvl (s): 0.62 04/16 04:17 WBC: 14.6 H Hgb: 8.2 L Hct: 24.7 L Platelet: 227 Neutrophil %: 74.4 Glucose Level: 93 Sodium Level: 136 Potassium Level: 3.8 BUN: 6.0 L Creatinine Lvl (s): 0.69 Assessment/Plan Orders: N-Terminal proBNP 1. Tricuspid valve endocarditis 2. MSSA bacteremia 3. Sinus tachycardia 4. IV drug use 5. Hep C Cardiology consulted for tricuspid valve endocarditis. On review of echocardiogram, patient has vegetation that is 1 cm in widest length. In addition BNP is elevated and concerning for subclinical heart failure. Case discussed with infectious disease. Size of vegetation may not be amenable to treatment with antibiotics and require transfer to hospital for his surgery versus tricuspid valve suction via percutaneous procedure. We will consult cardiothoracic surgery. If no plans for surgery at [facility], would likely recommend transfer to [facility] ( versus [facility]). No acute indication for YESSENIA at this time. Earliest this would occur would be on Tuesday. Patient can be transferred prior to YESSENIA. We will await CT surgery recommendations and discuss with ID for definitive plan tomorrow. Sinus tachycardia secondary to underlying endocarditis and infection. Would continue to treat underlying cause. No need for beta-blockers Problem List/Past Medical History Ongoing No qualifying data Historical No qualifying data Procedure/Surgical History Hernia Medications Inpatient ceFAZolin, 2 gram(s)= 20 mL, IV Push (INT), q8h DuoNeb, 3 mL, Inhalation, q4hRT, PRN guaiFENesin, 200 mg= 10 mL, Oral, q4h, PRN heparin 5000 units/mL injection, 5000 unit(s)= 1 mL, Subcutaneous, q8h lidocaine 1% preservative-free injectable solution, 30 mg= 3 mL, Intradermal, prep pharm magnesium sulfate for IV bolus, 4 gram(s)= 100 mL, IV Piggyback, Once melatonin, 3 mg= 1 tab(s), Oral, qHS, PRN Miralax Powder Packet, 17 gram(s)= 15 mL, Oral, qDay, PRN naproxen 250 mg oral tablet, 250 mg= 1 tab(s), Oral, qDay, PRN Tylenol, 650 mg= 2 tab(s), Oral, q4h, PRN Zofran, 4 mg= 2 mL, IV Push, q4h, PRN Home naproxen 250 mg oral tablet, 250 mg= 1 tab(s), Oral, qDay, PRN Allergies NKA Social History Smoking Status - 12/25/2015 Current every day smoker Substance Abuse Use: Current. Type: Heroin. Frequency: 1-2 times per week. Previous treatment: None. Started at age: 20 Years. IV drug use; Yes. Has drug use interfered with your work or home life? No. Ready to change: Yes. Concerns about substance abuse in household: No., 12/06/2019 Tobacco Tobacco Use: 10 or more cigarettes (1/2 pack or more)/day in last 30 days., 02/18/2019 Immunizations No qualifying data available. Digitally Signed by STACEY SANDHU MD on 04/17/2022 12:53 PM [facility] [id number] Note Date of Service 04/17/2022 Chief Complaint Infective endocarditis Subjective No acute issues reported by nursing staff overnight. Patient states that he feels well. Tolerating oral intake, no nausea vomiting Review of telemetry shows that he continues to be persistently tachycardic Objective Vitals and Measurements T: 37.5 C (Oral) TMIN: 36.5 C (Oral) TMAX: 37.5 C (Oral) HR: 121(Apical) RR: 18 BP: 135/95 SpO2: 100% Intake and Output 7AM Yesterday to 7AM Today Intake and Output (Last 24 hours) Intake Output Urine Voided 175.00 Stool Count 0.00 Emesis Count 0.00 Total Summary Total Intake 0.00 Total Output 175.00 Fluid Balance -175.00 Physical Exam GENERAL: Pt is comfortable in bed. Appears in no acute distress. HEENT: Mucous membranes pink and moist NEURO: Alert and oriented X 3 CVS: S1 & S2 audible, tachycardic CHEST : No accesory muscle use, equal air entry bilaterally, no adventitious breath sounds GI: Normoactive BS, abdomen soft and non tender EXTREMITIES: No LE edema Weight Dosing Weight: 53.8 kg (04/13/22) Medications Medications (13) Active Scheduled: (4) ceFAZolin syringe 2 gram(s) 20 mL, IV Push (INT), q8h heparin 5,000 units/mL (1 mL) vial 5,000 unit(s) 1 mL, Subcutaneous, q8h lidocaine 1% (MPF) 2 mL vial pf 30 mg 3 mL, Intradermal, prep pharm magnesium sulfate 4 gram(s) 100 mL, IV Piggyback, Once Continuous: (0) PRN: (9) acetaminophen 325 mg Tablet 650 mg 2 tab(s), Oral, q4h albuterol - ipratropium 2.5 mg-0.5 mg/3 mL Inhal Milagro UD 3 mL, Inhalation, q4hRT guaifenesin 100 mg/5 mL 120 mL liquid 200 mg 10 mL, Oral, q4h melatonin 3 mg tablet 3 mg 1 tab(s), Oral, qHS ondansetron 2 mg/ 1 mL 2 mL INJ 4 mg 2 mL, IV Push, q4h oxycodone 5 mg tablet (immediate release) 5 mg 1 tab(s), Oral, q4h polyethylene glycol 3350 - UD packet 17 gram(s) 15 mL, Oral, qDay prochlorperazine 10 mg/2 mL vial 5 mg 1 mL, IV Push, q6h tramadol 50 mg Tablet 50 mg 1 tab(s), Oral, q4h Lab Results 04/17 05:05 Glucose Level: 109 Sodium Level: 134 L Potassium Level: 3.8 BUN: 6.0 L Creatinine Lvl (s): 0.62 04/16 04:17 WBC: 14.6 H Hgb: 8.2 L Hct: 24.7 L Platelet: 227 Neutrophil %: 74.4 Glucose Level: 93 Sodium Level: 136 Potassium Level: 3.8 BUN: 6.0 L Creatinine Lvl (s): 0.69 EKG Electrocardiogram (EKG) - Ordered -- 04/16/22 18:12:00 EST Electrocardiogram (EKG) - Ordered -- 04/17/22 11:46:00 EST Assessment/Plan 1. Sepsis 2. Infective endocarditis 3. MSSA bacteremia 4. Sinus tachycardia 5. QTC prolongation 6. Hypomagnesemia 7. Microcytic anemia 8. Leukocytosis 9. History of IV drug use Plan: Patient repeat blood cultures showing gram-positive cocci in clusters. Sensitivity on initial bloodculture came back for MSSA organism. He is currently on cefazolin, will need to repeat blood cultures. Hold off on PICC line until his repeat cultures are negative. Had temperature of 37.5 C today. Still tachycardic, magnesium 1.5 mg yesterday. Repeat EKG ordered yesterday, still pending. Also has QTC prolongation. Will avoid QTC prolonging medications. Give 4 g of IV magnesium sulfate. Ask cardiology to see. At discharge will go to a SNF for IV antibiotics. However, patient is not yet ready for discharge as we will need to ensure that his blood cultures are clearing prior to being discharged from hospital. Digitally Signed by LAN CRAFT MD on 04/17/2022 12:01 PM [facility] [id number] Note Date of Service 04/16/2022 Chief Complaint Endocarditis Subjective No acute issues reported by nursing staff overnight When I saw the patient today he stated that he was feeling okay, he is a bit anxious about going toa [facility] but does agree to do so. Tolerating oral intake, no nausea or vomiting. Objective Vitals and Measurements T: 37.1 C (Oral) TMIN: 36.4 C (Oral) TMAX: 37.9 C (Oral) HR: 122(Monitored) RR: 18 BP: 130/90 SpO2: 100% Intake and Output 7AM Yesterday to 7AM Today Intake and Output (Last 24 hours) Intake Output Urine Voided 225.00 Stool Count 0.00 Urine Count 2.00 Emesis Count 0.00 Total Summary Total Intake 0.00 Total Output 225.00 Fluid Balance -225.00 Physical Exam GENERAL: Pt is comfortable in bed. Appears in no acute distress. HEENT: Mucous membranes pink and moist NEURO: Alert and oriented X 3 CVS: S1 & S2 audible, tachycardic CHEST : No accesory muscle use, equal air entry bilaterally, no adventitious breath sounds GI: Normoactive BS, abdomen soft and non tender EXTREMITIES: No LE edema Weight Dosing Weight: 53.8 kg (04/13/22) Medications Medications (11) Active Scheduled: (2) ceFAZolin syringe 2 gram(s) 20 mL, IV Push (INT), q8h lidocaine 1% (MPF) 2 mL vial pf 30 mg 3 mL, Intradermal, prep pharm Continuous: (0) PRN: (9) acetaminophen 325 mg Tablet 650 mg 2 tab(s), Oral, q4h albuterol - ipratropium 2.5 mg-0.5 mg/3 mL Inhal Milagro UD 3 mL, Inhalation, q4hRT guaifenesin 100 mg/5 mL 120 mL liquid 200 mg 10 mL, Oral, q4h melatonin 3 mg tablet 3 mg 1 tab(s), Oral, qHS ondansetron 2 mg/ 1 mL 2 mL INJ 4 mg 2 mL, IV Push, q4h oxycodone 5 mg tablet (immediate release) 5 mg 1 tab(s), Oral, q4h polyethylene glycol 3350 - UD packet 17 gram(s) 15 mL, Oral, qDay prochlorperazine 10 mg/2 mL vial 5 mg 1 mL, IV Push, q6h tramadol 50 mg Tablet 50 mg 1 tab(s), Oral, q4h Lab Results 04/16 04:17 WBC: 14.6 H Hgb: 8.2 L Hct: 24.7 L Platelet: 227 Neutrophil %: 74.4 Glucose Level: 93 Sodium Level: 136 Potassium Level: 3.8 BUN: 6.0 L Creatinine Lvl (s): 0.69 EKG No qualifying data available. Assessment/Plan 1. Sepsis 2. Infective endocarditis 3. MSSA bacteremia 4. Sinus tachycardia 5. Leukocytosis 6. Microcytic anemia 7. History of IV drug use Plan: Patient has agreed to go to a [facility], PICC line has been ordered and he will be on 6 weeks ofIV antibiotic therapy for infective endocarditis [tricuspid valve]. Once placement is ready miracle can be discharged from hospital Vital signs are stable except that he continues to be tachycardic, he got another bolus of fluids today. Still tachycardic, will give one-time dose of oral Lopressor 25 mg. Repeat blood cultures have shown no growth, MSSA is growing according to PCR Hemoglobin stable Add heparin for DVT prophylaxis Digitally Signed by LAN CRAFT MD on 04/16/2022 06:15 PM [facility] [id number] Infectious disease Progress note Date of Service 04/16/2022 Objective Vitals and Measurements T: 36.4 C (Oral) TMIN: 36.4 C (Oral) TMAX: 37.9 C (Oral) HR: 123(Monitored) RR: 18 BP: 122/86 SpO2:99% Physical Exam Chart reviewed, patient examined. Patient is arousable, alert and oriented x3, resting in bed. Patient is minimally conversive this morning, preferring to give yes or no answers. No c/o NVD. Really no complaints this AM, requesting to go back to sleep. Respirations easy and nonlabored at rest, 99% on RA. Patient has been febrile in the last 24 hours. Mycoplasma negative RPR nonreactive Hepatitis A/B nonreactive Hepatitis C reactive 04/15/2022 HIV 1/2 nonreactive SARS COVID negative Flu A/B negative RSV negative BC ID PCR- Staphylococcus & Staphylococcus Aureus detected 04/13/2022 FOCUSED ASSESSMENT: CVS: Regular S1S2, sinus tachycardia on monitor LUNGS: Clear diminished bilaterally, denies SOB, easy respirations ABDOMEN: Nondistended, rounded, soft, nontender, + bowel sounds, passing gas, denies constipation SKIN: No rashes noted, BUE track mejia NURSING EDUCATION CONSULTANT INCISIONS/DRESSINGS: None EXTREMITIES: Generalized fatigue-requesting to go back to sleep LINES/TUBES/DRAINS: RAC IV dressing dry & intact, no drainage or erythema at site CURRENT ANTIBIOTICS: Vanco 1.5g Q12h 04/13 - 04/15 Zosyn 3.375g IV Q8h 04/14 - 04/15 Cefazolin 2g IV Q8h 04/16 - present CULTURE RESULTS/LOY: 04/13 Blood Cultures / -P Staphylococcus aureus Staphylococcus aureus #2 04/13 Legionella Urine -F Presumptive negative for L. pneumophila Serogroup 1 antigen in urine 04/13 SPAG Urine -F Presumptive negative for pneumococcal pneumonia 04/14 Blood Cultures 05/20 no growth to date -P Weight Dosing Weight: 53.8 kg (04/13/22) Medications Medications (11) Active Scheduled: (1) ceFAZolin syringe 2 gram(s) 20 mL, IV Push (INT), q8h Continuous: (1) NS (0.9% nacl) 1,000 mL 1,000 mL, Intravenous, 100 mL/hr PRN: (9) acetaminophen 325 mg Tablet 650 mg 2 tab(s), Oral, q4h albuterol - ipratropium 2.5 mg-0.5 mg/3 mL Inhal Milagro UD 3 mL, Inhalation, q4hRT guaifenesin 100 mg/5 mL 120 mL liquid 200 mg 10 mL, Oral, q4h melatonin 3 mg tablet 3 mg 1 tab(s), Oral, qHS ondansetron 2 mg/ 1 mL 2 mL INJ 4 mg 2 mL, IV Push, q4h oxycodone 5 mg tablet (immediate release) 5 mg 1 tab(s), Oral, q4h polyethylene glycol 3350 - UD packet 17 gram(s) 15 mL, Oral, qDay prochlorperazine 10 mg/2 mL vial 5 mg 1 mL, IV Push, q6h tramadol 50 mg Tablet 50 mg 1 tab(s), Oral, q4h Lab Results 04/16 04:17 WBC: 14.6 H Hgb: 8.2 L Hct: 24.7 L Platelet: 227 Neutrophil %: 74.4 Glucose Level: 93 Sodium Level: 136 Potassium Level: 3.8 BUN: 6.0 L Creatinine Lvl (s): 0.69 04/15 04:49 WBC: 15.5 H Hgb: 8.2 L Hct: 24.8 L Platelet: 187 Neutrophil %: 79.2 H Glucose Level: 98 Sodium Level: 138 Potassium Level: 3.6 BUN: 6.0 L Creatinine Lvl (s): 0.59 L Imaging Results and Diagnostics No new results at this time Problem List SIRS criteria-on admission MSSA bacteremia Sepsis Leukocytosis and fevers Multiple cavitary lung nodules suggestive of septic emboli History of hepatitis C History of IV drug use Digitally Signed by Parvin Burns RN on 04/16/2022 12:01 PM [id number] Infectious disease Progress note Date of Service 04/16/2022 Objective Vitals and Measurements T: 36.4 C (Oral) TMIN: 36.4 C (Oral) TMAX: 37.9 C (Oral) HR: 123(Monitored) RR: 18 BP: 122/86 SpO2:99% Physical Exam Chart reviewed, patient examined. Patient is arousable, alert and oriented x3, resting in bed. Patient is minimally conversive this morning, preferring to give yes or no answers. No c/o NVD. Really no complaints this AM, requesting to go back to sleep. Respirations easy and nonlabored at rest, 99% on RA. Patient has been febrile in the last 24 hours. Mycoplasma negative RPR nonreactive Hepatitis A/B nonreactive Hepatitis C reactive 04/15/2022 HIV 1/2 nonreactive SARS COVID negative Flu A/B negative RSV negative BC ID PCR- Staphylococcus & Staphylococcus Aureus detected 04/13/2022 FOCUSED ASSESSMENT: CVS: Regular S1S2, sinus tachycardia on monitor LUNGS: Clear diminished bilaterally, denies SOB, easy respirations ABDOMEN: Nondistended, rounded, soft, nontender, + bowel sounds, passing gas, denies constipation SKIN: No rashes noted, BUE track mejia NURSING EDUCATION CONSULTANT INCISIONS/DRESSINGS: None EXTREMITIES: Generalized fatigue-requesting to go back to sleep LINES/TUBES/DRAINS: RAC IV dressing dry & intact, no drainage or erythema at site CURRENT ANTIBIOTICS: Vanco 1.5g Q12h 04/13 - 04/15 Zosyn 3.375g IV Q8h 04/14 - 04/15 Cefazolin 2g IV Q8h 04/16 - present CULTURE RESULTS/LOY: 04/13 Blood Cultures 05/20 -P Staphylococcus aureus Staphylococcus aureus #2 04/13 Legionella Urine -F Presumptive negative for L. pneumophila Serogroup 1 antigen in urine 04/13 SPAG Urine -F Presumptive negative for pneumococcal pneumonia 04/14 Blood Cultures 05/20 no growth to date -P Weight Dosing Weight: 53.8 kg (04/13/22) Medications Medications (11) Active Scheduled: (1) ceFAZolin syringe 2 gram(s) 20 mL, IV Push (INT), q8h Continuous: (1) NS (0.9% nacl) 1,000 mL 1,000 mL, Intravenous, 100 mL/hr PRN: (9) acetaminophen 325 mg Tablet 650 mg 2 tab(s), Oral, q4h albuterol - ipratropium 2.5 mg-0.5 mg/3 mL Inhal Milagro UD 3 mL, Inhalation, q4hRT guaifenesin 100 mg/5 mL 120 mL liquid 200 mg 10 mL, Oral, q4h melatonin 3 mg tablet 3 mg 1 tab(s), Oral, qHS ondansetron 2 mg/ 1 mL 2 mL INJ 4 mg 2 mL, IV Push, q4h oxycodone 5 mg tablet (immediate release) 5 mg 1 tab(s), Oral, q4h polyethylene glycol 3350 - UD packet 17 gram(s) 15 mL, Oral, qDay prochlorperazine 10 mg/2 mL vial 5 mg 1 mL, IV Push, q6h tramadol 50 mg Tablet 50 mg 1 tab(s), Oral, q4h Lab Results 04/16 04:17 WBC: 14.6 H Hgb: 8.2 L Hct: 24.7 L Platelet: 227 Neutrophil %: 74.4 Glucose Level: 93 Sodium Level: 136 Potassium Level: 3.8 BUN: 6.0 L Creatinine Lvl (s): 0.69 04/15 04:49 WBC: 15.5 H Hgb: 8.2 L Hct: 24.8 L Platelet: 187 Neutrophil %: 79.2 H Glucose Level: 98 Sodium Level: 138 Potassium Level: 3.6 BUN: 6.0 L Creatinine Lvl (s): 0.59 L Imaging Results and Diagnostics No new results at this time Problem List SIRS criteria-on admission MSSA bacteremia Sepsis Leukocytosis and fevers Multiple cavitary lung nodules suggestive of septic emboli History of hepatitis C History of IV drug use Digitally Signed by Parvin Burns RN on 04/16/2022 12:01 PM [id number] Note Date of Service 04/15/2022 Chief Complaint Chest pain Subjective Overnight the patient became tachycardic, he was not having any symptoms but his tachycardia did respond to IV fluid boluses. This morning when I saw him he denies any chest pain or shortness of breath. He had right shoulder pain before coming to hospital but states that this pain has resolved. Tolerating oral intake, no nausea or vomiting Objective Vitals and Measurements T: 37.2 C (Oral) TMIN: 36.7 C (Oral) TMAX: 37.8 C (Oral) HR: 102 RR: 18 BP: 127/79 SpO2: 98% Intake and Output 7AM Yesterday to 7AM Today Intake and Output (Last 24 hours) Intake Administration Information 686.67 Oral Intake 200.00 Output Urine Voided 400.00 Stool Count 0.00 Emesis Count 0.00 Total Summary Total Intake 886.67 Total Output 400.00 Fluid Balance 486.67 Physical Exam GENERAL: Pt is comfortable in bed. Appears in no acute distress. HEENT: Mucous membranes pink and moist NEURO: Alert and oriented X 3 CVS: S1 & S2 audible, Regular Rate and Rhythm CHEST : No accesory muscle use, equal air entry bilaterally, no adventitious breath sounds GI: Normoactive BS, abdomen soft and non tender EXTREMITIES: No LE edema Weight Dosing Weight: 53.8 kg (04/13/22) Medications Medications (14) Active Scheduled: (4) iron sucrose 300 mg 15 mL, IV Piggyback, qDay piperacillin-tazobactam PMX 3.375 gram(s) 50 mL, IV Piggyback, q8h vancomycin PMX 1,500 mg 300 mL, IV Piggyback, q12h vancomycin trough level 1 EA, Miscellaneous, q12hr Continuous: (1) NS (0.9% nacl) 1,000 mL 1,000 mL, Intravenous, 100 mL/hr PRN: (9) acetaminophen 325 mg Tablet 650 mg 2 tab(s), Oral, q4h albuterol - ipratropium 2.5 mg-0.5 mg/3 mL Inhal Milagro UD 3 mL, Inhalation, q4hRT guaifenesin 100 mg/5 mL 120 mL liquid 200 mg 10 mL, Oral, q4h melatonin 3 mg tablet 3 mg 1 tab(s), Oral, qHS ondansetron 2 mg/ 1 mL 2 mL INJ 4 mg 2 mL, IV Push, q4h oxycodone 5 mg tablet (immediate release) 5 mg 1 tab(s), Oral, q4h polyethylene glycol 3350 - UD packet 17 gram(s) 15 mL, Oral, qDay prochlorperazine 10 mg/2 mL vial 5 mg 1 mL, IV Push, q6h tramadol 50 mg Tablet 50 mg 1 tab(s), Oral, q4h Lab Results 04/15 04:49 WBC: 15.5 H Hgb: 8.2 L Hct: 24.8 L Platelet: 187 Neutrophil %: 79.2 H Glucose Level: 98 Sodium Level: 138 Potassium Level: 3.6 BUN: 6.0 L Creatinine Lvl (s): 0.59 L 04/14 05:08 WBC: 17.7 H Hgb: 8.4 L Hct: 25.0 L Platelet: 147 L Neutrophil %: 84.5 H Protime: 18.2 H PT International Ratio: 1.5 Glucose Level: 100 Sodium Level: 138 Potassium Level: 4.1 BUN: 13.0 Creatinine Lvl (s): 0.69 EKG EKG - Completed -- 04/13/22 23:43:00 EST Electrocardiogram (EKG) - InProcess -- 04/14/22 17:11:00 EST Assessment/Plan 1. Sepsis 2. Infective endocarditis 3. Leukocytosis 4. Positive bacteremia 5. Microcytic anemia 6. History of IV drug use 7. History of hepatitis C Plan: Patient has radiological evidence of endocarditis of his tricuspid valve. Echocardiogram showed mild tricuspid regurgitation, clinically the patient is not having any symptoms of valvulopathy. Yesterday he was tachycardic and responded to IV fluid boluses, patient is likely in the early stages of sepsis from infective endocarditis. We will continue with antibiotic coverage as per infectious disease, currently on vancomycin and Zosyn. Patient will need at least 6 weeks of antibiotic coverage. He does have a history of IV drug use so it will be complicated with how we will give him outpatient antibiotics without the risk of him using a PICC line for illicit purposes. Repeat blood cultures were drawn yesterday, so far they have shown no growth, will continue to monitor cultures. On sensitivity report is back then antibiotic therapy can be adjusted accordingly Venofer x3 doses for iron deficiency anemia Will need outpatient management of hepatitis C Add heparin for DVT prophylaxis Digitally Signed by LAN CRAFT MD on 04/15/2022 08:15 AM [id number] Infectious disease Progress note Date of Service 04/15/2022 Objective Vitals and Measurements T: 37.1 C (Oral) TMIN: 36.8 C (Oral) TMAX: 37.8 C (Oral) HR: 117(Monitored) RR: 18 BP: 120/78 SpO2:98% Physical Exam Chart reviewed, patient examined. Patient is alert and oriented x3, resting in bed watching TV withblankets pulled over his head. No c/o NVD. Reports occasional blood in sputum and bloody nose. Really no complaints this AM. Respirations easy and nonlabored at rest, 98% on RA. Patient has been febrile in the last 24 hours. Mycoplasma negative Hepatitis A/B nonreactive Hepatitis C reactive 04/15/2022 HIV 1/2 nonreactive SARS COVID negative Flu A/B negative RSV negative BC ID PCR- Staphylococcus & Staphylococcus Aureus detected 04/13/2022 RPR pending FOCUSED ASSESSMENT: CVS: Regular S1S2, NSR on monitor LUNGS: Clear diminished bilaterally, denies SOB, occasionally blood in sputum ABDOMEN: Nondistended, rounded, soft, nontender, + bowel sounds, passing gas, denies constipation SKIN: No rashes noted, BUE track mejia NURSING EDUCATION CONSULTANT INCISIONS/DRESSINGS: None EXTREMITIES: Generalized fatigue LINES/TUBES/DRAINS: RAC IV dressing dry & intact, no drainage or erythema at site CURRENT ANTIBIOTICS: Vanco 1.5g Q12h 04/13 - present Zosyn 3.375g IV Q8h 04/14 - present CULTURE RESULTS/LOY: 04/13 Blood Cultures 2/ -P Gram Positive Cocci in clusters 04/13 Legionella Urine -F Presumptive negative for L. pneumophila Serogroup 1 antigen in urine 04/14 Blood Cultures / no growth to date -P Weight Dosing Weight: 53.8 kg (04/13/22) Medications Medications (14) Active Scheduled: (4) iron sucrose 300 mg 15 mL, IV Piggyback, qDay piperacillin-tazobactam PMX 3.375 gram(s) 50 mL, IV Piggyback, q8h vancomycin PMX 1,500 mg 300 mL, IV Piggyback, q12h vancomycin trough level 1 EA, Miscellaneous, q12hr Continuous: (1) NS (0.9% nacl) 1,000 mL 1,000 mL, Intravenous, 100 mL/hr PRN: (9) acetaminophen 325 mg Tablet 650 mg 2 tab(s), Oral, q4h albuterol - ipratropium 2.5 mg-0.5 mg/3 mL Inhal Milagro UD 3 mL, Inhalation, q4hRT guaifenesin 100 mg/5 mL 120 mL liquid 200 mg 10 mL, Oral, q4h melatonin 3 mg tablet 3 mg 1 tab(s), Oral, qHS ondansetron 2 mg/ 1 mL 2 mL INJ 4 mg 2 mL, IV Push, q4h oxycodone 5 mg tablet (immediate release) 5 mg 1 tab(s), Oral, q4h polyethylene glycol 3350 - UD packet 17 gram(s) 15 mL, Oral, qDay prochlorperazine 10 mg/2 mL vial 5 mg 1 mL, IV Push, q6h tramadol 50 mg Tablet 50 mg 1 tab(s), Oral, q4h Lab Results 04/15 04:49 WBC: 15.5 H Hgb: 8.2 L Hct: 24.8 L Platelet: 187 Neutrophil %: 79.2 H Glucose Level: 98 Sodium Level: 138 Potassium Level: 3.6 BUN: 6.0 L Creatinine Lvl (s): 0.59 L 04/14 05:08 WBC: 17.7 H Hgb: 8.4 L Hct: 25.0 L Platelet: 147 L Neutrophil %: 84.5 H Protime: 18.2 H PT International Ratio: 1.5 Glucose Level: 100 Sodium Level: 138 Potassium Level: 4.1 BUN: 13.0 Creatinine Lvl (s): 0.69 Imaging Results and Diagnostics 04/14 Echo Summary: 1. Left ventricle: The cavity size is normal. Wall thickness is normal. Systolic function is normal. The estimated ejection fraction is 50-55%. Mild hypokinesis of the anteroseptal and anterior myocardium. 2. Right ventricle: The RV systolic pressure by Doppler is 27 mm Hg. 3. Tricuspid valve: There is a vegetation. There is mild regurgitation. Problem List SIRS criteria-on admission Sepsis Leukocytosis and fevers Multiple cavitary lung nodules suggestive of septic emboli History of hepatitis C History of IV drug use Digitally Signed by Parvin Burns RN on 04/15/2022 11:53 AM [id number] Infectious disease Progress note Date of Service 04/15/2022 Objective Vitals and Measurements T: 37.1 C (Oral) TMIN: 36.8 C (Oral) TMAX: 37.8 C (Oral) HR: 117(Monitored) RR: 18 BP: 120/78 SpO2:98% Physical Exam Chart reviewed, patient examined. Patient is alert and oriented x3, resting in bed watching TV withblankets pulled over his head. No c/o NVD. Reports occasional blood in sputum and bloody nose. Really no complaints this AM. Respirations easy and nonlabored at rest, 98% on RA. Patient has been febrile in the last 24 hours. Mycoplasma negative Hepatitis A/B nonreactive Hepatitis C reactive 04/15/2022 HIV 1/2 nonreactive SARS COVID negative Flu A/B negative RSV negative BC ID PCR- Staphylococcus & Staphylococcus Aureus detected 04/13/2022 RPR pending FOCUSED ASSESSMENT: CVS: Regular S1S2, NSR on monitor LUNGS: Clear diminished bilaterally, denies SOB, occasionally blood in sputum ABDOMEN: Nondistended, rounded, soft, nontender, + bowel sounds, passing gas, denies constipation SKIN: No rashes noted, BUE track mejia EMILY INCISIONS/DRESSINGS: None EXTREMITIES: Generalized fatigue LINES/TUBES/DRAINS: RAC IV dressing dry & intact, no drainage or erythema at site CURRENT ANTIBIOTICS: Vanco 1.5g Q12h 04/13 - present Zosyn 3.375g IV Q8h 04/14 - present CULTURE RESULTS/LOY: 04/13 Blood Cultures 2/ -P Gram Positive Cocci in clusters 04/13 Legionella Urine -F Presumptive negative for L. pneumophila Serogroup 1 antigen in urine 04/14 Blood Cultures 05/20 no growth to date -P Weight Dosing Weight: 53.8 kg (04/13/22) Medications Medications (14) Active Scheduled: (4) iron sucrose 300 mg 15 mL, IV Piggyback, qDay piperacillin-tazobactam PMX 3.375 gram(s) 50 mL, IV Piggyback, q8h vancomycin PMX 1,500 mg 300 mL, IV Piggyback, q12h vancomycin trough level 1 EA, Miscellaneous, q12hr Continuous: (1) NS (0.9% nacl) 1,000 mL 1,000 mL, Intravenous, 100 mL/hr PRN: (9) acetaminophen 325 mg Tablet 650 mg 2 tab(s), Oral, q4h albuterol - ipratropium 2.5 mg-0.5 mg/3 mL Inhal Milagro UD 3 mL, Inhalation, q4hRT guaifenesin 100 mg/5 mL 120 mL liquid 200 mg 10 mL, Oral, q4h melatonin 3 mg tablet 3 mg 1 tab(s), Oral, qHS ondansetron 2 mg/ 1 mL 2 mL INJ 4 mg 2 mL, IV Push, q4h oxycodone 5 mg tablet (immediate release) 5 mg 1 tab(s), Oral, q4h polyethylene glycol 3350 - UD packet 17 gram(s) 15 mL, Oral, qDay prochlorperazine 10 mg/2 mL vial 5 mg 1 mL, IV Push, q6h tramadol 50 mg Tablet 50 mg 1 tab(s), Oral, q4h Lab Results 04/15 04:49 WBC: 15.5 H Hgb: 8.2 L Hct: 24.8 L Platelet: 187 Neutrophil %: 79.2 H Glucose Level: 98 Sodium Level: 138 Potassium Level: 3.6 BUN: 6.0 L Creatinine Lvl (s): 0.59 L 04/14 05:08 WBC: 17.7 H Hgb: 8.4 L Hct: 25.0 L Platelet: 147 L Neutrophil %: 84.5 H Protime: 18.2 H PT International Ratio: 1.5 Glucose Level: 100 Sodium Level: 138 Potassium Level: 4.1 BUN: 13.0 Creatinine Lvl (s): 0.69 Imaging Results and Diagnostics 04/14 Echo Summary: 1. Left ventricle: The cavity size is normal. Wall thickness is normal. Systolic function is normal. The estimated ejection fraction is 50-55%. Mild hypokinesis of the anteroseptal and anterior myocardium. 2. Right ventricle: The RV systolic pressure by Doppler is 27 mm Hg. 3. Tricuspid valve: There is a vegetation. There is mild regurgitation. Problem List SIRS criteria-on admission Sepsis Leukocytosis and fevers Multiple cavitary lung nodules suggestive of septic emboli History of hepatitis C History of IV drug use Digitally Signed by Parvin Burns RN on 04/15/2022 11:53 AM [id number] Note Date of Service 04/15/2022 Chief Complaint Chest pain Subjective Overnight the patient became tachycardic, he was not having any symptoms but his tachycardia did respond to IV fluid boluses. This morning when I saw him he denies any chest pain or shortness of breath. He had right shoulder pain before coming to hospital but states that this pain has resolved. Tolerating oral intake, no nausea or vomiting Objective Vitals and Measurements T: 37.2 C (Oral) TMIN: 36.7 C (Oral) TMAX: 37.8 C (Oral) HR: 102 RR: 18 BP: 127/79 SpO2: 98% Intake and Output 7AM Yesterday to 7AM Today Intake and Output (Last 24 hours) Intake Administration Information 686.67 Oral Intake 200.00 Output Urine Voided 400.00 Stool Count 0.00 Emesis Count 0.00 Total Summary Total Intake 886.67 Total Output 400.00 Fluid Balance 486.67 Physical Exam GENERAL: Pt is comfortable in bed. Appears in no acute distress. HEENT: Mucous membranes pink and moist NEURO: Alert and oriented X 3 CVS: S1 & S2 audible, Regular Rate and Rhythm CHEST : No accesory muscle use, equal air entry bilaterally, no adventitious breath sounds GI: Normoactive BS, abdomen soft and non tender EXTREMITIES: No LE edema Weight Dosing Weight: 53.8 kg (04/13/22) Medications Medications (14) Active Scheduled: (4) iron sucrose 300 mg 15 mL, IV Piggyback, qDay piperacillin-tazobactam PMX 3.375 gram(s) 50 mL, IV Piggyback, q8h vancomycin PMX 1,500 mg 300 mL, IV Piggyback, q12h vancomycin trough level 1 EA, Miscellaneous, q12hr Continuous: (1) NS (0.9% nacl) 1,000 mL 1,000 mL, Intravenous, 100 mL/hr PRN: (9) acetaminophen 325 mg Tablet 650 mg 2 tab(s), Oral, q4h albuterol - ipratropium 2.5 mg-0.5 mg/3 mL Inhal Milagro UD 3 mL, Inhalation, q4hRT guaifenesin 100 mg/5 mL 120 mL liquid 200 mg 10 mL, Oral, q4h melatonin 3 mg tablet 3 mg 1 tab(s), Oral, qHS ondansetron 2 mg/ 1 mL 2 mL INJ 4 mg 2 mL, IV Push, q4h oxycodone 5 mg tablet (immediate release) 5 mg 1 tab(s), Oral, q4h polyethylene glycol 3350 - UD packet 17 gram(s) 15 mL, Oral, qDay prochlorperazine 10 mg/2 mL vial 5 mg 1 mL, IV Push, q6h tramadol 50 mg Tablet 50 mg 1 tab(s), Oral, q4h Lab Results 04/15 04:49 WBC: 15.5 H Hgb: 8.2 L Hct: 24.8 L Platelet: 187 Neutrophil %: 79.2 H Glucose Level: 98 Sodium Level: 138 Potassium Level: 3.6 BUN: 6.0 L Creatinine Lvl (s): 0.59 L 04/14 05:08 WBC: 17.7 H Hgb: 8.4 L Hct: 25.0 L Platelet: 147 L Neutrophil %: 84.5 H Protime: 18.2 H PT International Ratio: 1.5 Glucose Level: 100 Sodium Level: 138 Potassium Level: 4.1 BUN: 13.0 Creatinine Lvl (s): 0.69 EKG EKG - Completed -- 04/13/22 23:43:00 EST Electrocardiogram (EKG) - InProcess -- 04/14/22 17:11:00 EST Assessment/Plan 1. Sepsis 2. Infective endocarditis 3. Leukocytosis 4. Positive bacteremia 5. Microcytic anemia 6. History of IV drug use 7. History of hepatitis C Plan: Patient has radiological evidence of endocarditis of his tricuspid valve. Echocardiogram showed mild tricuspid regurgitation, clinically the patient is not having any symptoms of valvulopathy. Yesterday he was tachycardic and responded to IV fluid boluses, patient is likely in the early stages of sepsis from infective endocarditis. We will continue with antibiotic coverage as per infectious disease, currently on vancomycin and Zosyn. Patient will need at least 6 weeks of antibiotic coverage. Leah have a history of IV drug use so it will be complicated with how we will give him outpatient antibiotics without the risk of him using a PICC line for illicit purposes. Repeat blood cultures were drawn yesterday, so far they have shown no growth, will continue to monitor cultures. On sensitivity report is back then antibiotic therapy can be adjusted accordingly Venofer x3 doses for iron deficiency anemia Will need outpatient management of hepatitis C Add heparin for DVT prophylaxis Digitally Signed by LAN CRAFT MD on 04/15/2022 08:15 AM [place] [id number] Note Date of Service 04/14/2022 Chief Complaint Chest pain Subjective No acute events reported by nursing staff overnight. Patient states that he is feeling well, denies any chest pain today. States that at home he was having fevers, chest pain and hemoptysis. Since being in the hospital he states that he has been feeling better, tolerating oral intake, no nausea or vomiting. Objective Vitals and Measurements T: 36.5 C (Oral) TMIN: 36.5 C (Oral) TMAX: 39.4 C (Oral) HR: 104(Monitored) RR: 16 BP: 115/78 SpO2:100% HT: 175.3 cm WT: 53.8 kg BMI: 17.51 Intake and Output 7AM Yesterday to 7AM Today Intake and Output (Last 24 hours) Intake Oral Intake 120.00 Output Urine Voided 700.00 Stool Count 0.00 Total Summary Total Intake 120.00 Total Output 700.00 Fluid Balance -580.00 Physical Exam GENERAL: Thin adult male laying in bed in no acute cardiopulmonary distress HEENT: Mucous membranes pink and moist NEURO: Alert and oriented X 3 CVS: S1 & S2 audible, Regular Rate and Rhythm CHEST : No accesory muscle use, equal air entry bilaterally, no adventitious breath sounds GI: Normoactive BS, abdomen soft and non tender EXTREMITIES: No LE edema SKIN: No splinter hemorrhage identified, no skin lesions identified. Weight Dosing Weight: 53.8 kg (04/13/22) Medications Medications (11) Active Scheduled: (2) piperacillin-tazobactam PMX 3.375 gram(s) 50 mL, IV Piggyback, q8h vancomycin PMX 1,000 mg 200 mL, IV Piggyback, q8h Continuous: (0) PRN: (9) acetaminophen 325 mg Tablet 650 mg 2 tab(s), Oral, q4h albuterol - ipratropium 2.5 mg-0.5 mg/3 mL Inhal Milagro UD 3 mL, Inhalation, q4hRT guaifenesin 100 mg/5 mL 120 mL liquid 200 mg 10 mL, Oral, q4h melatonin 3 mg tablet 3 mg 1 tab(s), Oral, qHS ondansetron 2 mg/ 1 mL 2 mL INJ 4 mg 2 mL, IV Push, q4h oxycodone 5 mg tablet (immediate release) 5 mg 1 tab(s), Oral, q4h polyethylene glycol 3350 - UD packet 17 gram(s) 15 mL, Oral, qDay prochlorperazine 10 mg/2 mL vial 5 mg 1 mL, IV Push, q6h tramadol 50 mg Tablet 50 mg 1 tab(s), Oral, q4h Lab Results 04/14 05:08 WBC: 17.7 H Hgb: 8.4 L Hct: 25.0 L Platelet: 147 L Neutrophil %: 84.5 H Protime: 18.2 H PT International Ratio: 1.5 Glucose Level: 100 Sodium Level: 138 Potassium Level: 4.1 BUN: 13.0 Creatinine Lvl (s): 0.69 EKG Electrocardiogram (EKG) - InProcess -- 04/13/22 23:43:00 EST Assessment/Plan 1. infectious endocarditis 2. Sepsis 3. Microcytic anemia 4. Leukocytosis 5. Transaminitis 6. History of IV drug use 7. DVT prophylaxis Plan: Patient has history of IV drug use, resents to hospital because of chest pain and CTA of chest shows that he has multiple cavitary lesion. There is a concern for infectious endocarditis, started on vancomycin and Zosyn by admitting team. Echocardiogram has been ordered and ID has been consulted. Wewill leave antibiotics management up to infectious disease. Patient fulfills SIRS criteria for sepsis, sepsis likely secondary to infectious endocarditis. He got IV fluids as per sepsis protocol in the ER and was started on broad-spectrum antibiotics. Continue to monitor blood cultures He has leukocytosis which is likely secondary to an underlining infectious process, also having temperature spikes today. His blood pressure remains within normal parameters. Transaminitis stable, likely secondary to underlying history of hepatitis C [place] referral for iron deficiency anemia x3 doses. Heparin for DVT prophylaxis Digitally Signed by LAN CRAFT MD on 04/14/2022 10:46 AM Digitally Signed by LAN CRAFT MD on 04/14/2022 06:43 PM [id number] Infectious disease Consult note Date of Service 04/14/2022 Reason for Consultation Concern of septic emboli on CT of the chest History of IV drug use Referring Physician Dr. Craft History of Present Illness This is a 27-year-old male with past medical history of tobacco abuse, IV drug use, hepatitis C pneumonia who presented to the [facility] emergency department with complaints of shortness of breath and bilateral chest pain for several weeks. On presentation to the emergency department, the patient was noted to be tachycardic up to 120. CBC revealed leukocytosis of 18,200 and CMP revealed transaminase elevation.X-ray of the right shoulder did not show any concerning finding. CT angiography of the chest with contrast is negative for pulmonary embolism however there is interval development of multiple nodules predominantly cavitary suggestive of septic emboli or inflammatory process. Patient was given IV vancomycin and Zosyn and was transferred to [facility]. ID consultation was placed for the above. Review of Systems Occasional shortness of breath is improving and weakness, no fever and 10 point review of systems negative Physical Exam Vitals and Measurements T: 36.7 C (Oral) TMIN: 36.5 C (Oral) TMAX: 39.4 C (Oral) HR: 113(Apical) RR: 16 BP: 100/57 SpO2: 98% HT: 175.3 cm WT: 53.8 kg BMI: 17.51 Weight Dosing Weight: 53.8 kg (04/13/22) General Appearance: Awake, alert, and oriented HEENT: Normocephaly. PERRL Neck: Normal without lymphadenopathy Cardiac: Heart regular rhythm Lungs: Clear, track mejia in his upper extremities without active findings of infection and no acute deficits Abdomen: Soft, non-tender, non-distended Extremities:Warm without clubbing, cyanosis or edema. Neurological: No deficits Skin: Warm, dry, intact. No rashes Psychiatric: No abnormal behaviors Lab Results 04/14 05:08 WBC: 17.7 H Hgb: 8.4 L Hct: 25.0 L Platelet: 147 L Neutrophil %: 84.5 H Protime: 18.2 H PT International Ratio: 1.5 Glucose Level: 100 Sodium Level: 138 Potassium Level: 4.1 BUN: 13.0 Creatinine Lvl (s): 0.69 Assessment/Plan SIRS criteria-on admission Sepsis Leukocytosis and fevers Multiple cavitary lung nodules suggestive of septic emboli History of hepatitis C History of IV drug use This is a 27-year-old male with past medical history of tobacco abuse, IV drug use, hepatitis C pneumonia who presented to the [facility] emergency department with complaints of shortness of breath and bilateral chest pain for several weeks. On presentation to the emergency department, the patient was noted to be tachycardic up to 120. CBC revealed leukocytosis of 18,200 and CMP revealed transaminase elevation.X-ray of the right shoulder did not show any concerning finding. CT angiography of the chest with contrast is negative for pulmonary embolism however there is interval development of multiple nodules predominantly cavitary suggestive of septic emboli or inflammatory process. Patient was given IV vancomycin and Zosyn and was transferred to [facility]. ID consultation was placed for the above. History of hepatitis C: If untreated and patient would like to proceed with treatment, he will needto follow-up with GI outpatient Over the past 24 hours, the patient has noted to be febrile with 24-hour T-max 39.4. Leukocytosis has slightly improved at 17,700 and LFTs are trending down. Patient is currently saturating at 98% onroom air Flu, COVID, RSV PCR is negative Atypical work-up is pending Blood culture showed no growth to date Obtain HIV, RPR and acute hepatitis panel. Await echocardiogram ordered by team Given the concern of multiple cavitary nodules concerning for septic emboli on CT of the chest, thepatient would benefit with CT imaging of the abdomen pelvic area as well as CT of the head to rule out further septic embolic process given his history of IV drug use We will continue current antimicrobial therapy and follow clinical course and micro data Clinically patient is improving Thank you for this consultation, will follow I was present for Aurora Fox LPN , and personally directed, all components of the patient's complete evaluation and management documented by the scribe today. I have personally examined the patient and reviewed all diagnostic data. I have reviewed all of this documentation by the scribe. It documents the history obtained, examination performed, diagnostic testing results compiled by him/her,and discharge information. Thank you for this consultation, will follow I was present for Aurora Fox LPN , and personally directed, all components of the patient's complete evaluation and management documented by the scribe today. I have personally examined the patient and reviewed all diagnostic data. I have reviewed all of this documentation by the scribe. It documents the history obtained, examination performed, diagnostic testing results compiled by him/her,and discharge information. Problem List/Past Medical History Ongoing No qualifying data Historical No qualifying data Procedure/Surgical History Hernia Medications Inpatient DuoNeb, 3 mL, Inhalation, q4hRT, PRN guaiFENesin, 200 mg= 10 mL, Oral, q4h, PRN melatonin, 3 mg= 1 tab(s), Oral, qHS, PRN Miralax Powder Packet, 17 gram(s)= 15 mL, Oral, qDay, PRN oxyCODONE 5 mg oral tablet ( IMMEDIATE release ), 5 mg= 1 tab(s), Oral, q4h, PRN prochlorperazine, 5 mg= 1 mL, IV Push, q6h, PRN Tylenol, 650 mg= 2 tab(s), Oral, q4h, PRN Ultram, 50 mg= 1 tab(s), Oral, q4h, PRN vancomycin IVPB, 1000 mg= 200 mL, 15 mg/kg, IV Piggyback, q8h Venofer Zofran, 4 mg= 2 mL, IV Push, q4h, PRN Zosyn, 3.375 gram(s)= 50 mL, IV Piggyback, q8h Home naproxen 250 mg oral tablet, 250 mg= 1 tab(s), Oral, qDay, PRN Allergies NKA Social History Smoking Status - 12/25/2015 Current every day smoker Substance Abuse Use: Current. Type: Heroin. Frequency: 1-2 times per week. Previous treatment: None. Started at age: 20 Years. IV drug use; Yes. Has drug use interfered with your work or home life? No. Ready to change: Yes. Concerns about substance abuse in household: No., 12/06/2019 Tobacco Tobacco Use: 10 or more cigarettes (1/2 pack or more)/day in last 30 days., 02/18/2019 Immunizations No qualifying data available. Digitally Signed by Aurora Fox on 04/14/2022 12:11 PM Digitally Signed by TANYA WESTFALL BA, MD on 04/14/2022 02:39 PM [id number] Note Date of Service 04/14/2022 Chief Complaint Chest pain Subjective No acute events reported by nursing staff overnight. Patient states that he is feeling well, denies any chest pain today. States that at home he was having fevers, chest pain and hemoptysis. Since being in the hospital he states that he has been feeling better, tolerating oral intake, no nausea or vomiting. Objective Vitals and Measurements T: 36.5 C (Oral) TMIN: 36.5 C (Oral) TMAX: 39.4 C (Oral) HR: 104(Monitored) RR: 16 BP: 115/78 SpO2:100% HT: 175.3 cm WT: 53.8 kg BMI: 17.51 Intake and Output 7AM Yesterday to 7AM Today Intake and Output (Last 24 hours) Intake Oral Intake 120.00 Output Urine Voided 700.00 Stool Count 0.00 Total Summary Total Intake 120.00 Total Output 700.00 Fluid Balance -580.00 Physical Exam GENERAL: Thin adult male laying in bed in no acute cardiopulmonary distress HEENT: Mucous membranes pink and moist NEURO: Alert and oriented X 3 CVS: S1 & S2 audible, Regular Rate and Rhythm CHEST : No accesory muscle use, equal air entry bilaterally, no adventitious breath sounds GI: Normoactive BS, abdomen soft and non tender EXTREMITIES: No LE edema SKIN: No splinter hemorrhage identified, no skin lesions identified. Weight Dosing Weight: 53.8 kg (04/13/22) Medications Medications (11) Active Scheduled: (2) piperacillin-tazobactam PMX 3.375 gram(s) 50 mL, IV Piggyback, q8h vancomycin PMX 1,000 mg 200 mL, IV Piggyback, q8h Continuous: (0) PRN: (9) acetaminophen 325 mg Tablet 650 mg 2 tab(s), Oral, q4h albuterol - ipratropium 2.5 mg-0.5 mg/3 mL Inhal Milagro UD 3 mL, Inhalation, q4hRT guaifenesin 100 mg/5 mL 120 mL liquid 200 mg 10 mL, Oral, q4h melatonin 3 mg tablet 3 mg 1 tab(s), Oral, qHS ondansetron 2 mg/ 1 mL 2 mL INJ 4 mg 2 mL, IV Push, q4h oxycodone 5 mg tablet (immediate release) 5 mg 1 tab(s), Oral, q4h polyethylene glycol 3350 - UD packet 17 gram(s) 15 mL, Oral, qDay prochlorperazine 10 mg/2 mL vial 5 mg 1 mL, IV Push, q6h tramadol 50 mg Tablet 50 mg 1 tab(s), Oral, q4h Lab Results 04/14 05:08 WBC: 17.7 H Hgb: 8.4 L Hct: 25.0 L Platelet: 147 L Neutrophil %: 84.5 H Protime: 18.2 H PT International Ratio: 1.5 Glucose Level: 100 Sodium Level: 138 Potassium Level: 4.1 BUN: 13.0 Creatinine Lvl (s): 0.69 EKG Electrocardiogram (EKG) - InProcess -- 04/13/22 23:43:00 EST Assessment/Plan 1. infectious endocarditis 2. Sepsis 3. Microcytic anemia 4. Leukocytosis 5. Transaminitis 6. History of IV drug use 7. DVT prophylaxis Plan: Patient has history of IV drug use, resents to hospital because of chest pain and CTA of chest shows that he has multiple cavitary lesion. There is a concern for infectious endocarditis, started on vancomycin and Zosyn by admitting team. Echocardiogram has been ordered and ID has been consulted. Wewill leave antibiotics management up to infectious disease. Patient fulfills SIRS criteria for sepsis, sepsis likely secondary to infectious endocarditis. He got IV fluids as per sepsis protocol in the ER and was started on broad-spectrum antibiotics. Continue to monitor blood cultures He has leukocytosis which is likely secondary to an underlining infectious process, also having temperature spikes today. His blood pressure remains within normal parameters. Transaminitis stable, likely secondary to underlying history of hepatitis C [facility] referral for iron deficiency anemia x3 doses. Heparin for DVT prophylaxis Digitally Signed by LAN CRAFT MD on 04/14/2022 10:46 AM Digitally Signed by LAN CRAFT MD on 04/14/2022 06:43 PM [id number] History and physical note [facility] Hospitalist History and Physical Date of Admission: 04/13/2022 Chief complaint: Shortness of breath History of present illness: History is taken from talking with the patient as well as reviewing medical records. Patient was accepted as a transfer from [place] emergency department by my colleague. Patient has a past medical history of tobacco abuse, IV drug abuse, hepatitis C, pneumonia. Patient was last discharged from here on 12/07/2019 and during that admission the patient was here for pneumonia with hemoptysis. Patient reports that he has been having ongoing diffuse bilateral chest pain and shortness of breath for several weeks. He states that he overall is has just not been feeling well. He denies fevers, chills or night sweats. Has a nonproductive cough. Denies sick contacts or recent travel. Patient reports a history of IV drug abuse and states that he last used around 3 months ago. Since presenting to the emergency room the patient has been afebrile, tachycardic up to 120, blood pressure 114/62, 99% room air. Labs and imaging of note: WBC 18.2 hemoglobin 8.5 and in 2019 was 14.0. Urinalysis not concerning for infection Sodium 132 otherwise no concerning finding on BMP Total bilirubin 0.9 alkaline phosphatase 180 AST 91 ALT 112 Lactic acid 0.7 proBNP 4 and 29 High sensitive troponin less than 4.0 Alcohol level less than 3 Drug screen negative X-ray of the right shoulder did not show any concerning finding CT angiography of the chest with contrast is negative for pulmonary embolism. Interval development of multiple nodules predominantly cavitary suggestive of septic emboli or inflammatory process. EKG shows sinus tachycardia with a heart rate at [address] elevation or ST depression. Prior to transfer they did order blood cultures and the patient was given vancomycin and Zosyn. Past medical history: Hepatitis C Overdose Tobacco use Hernia Family history: Hypertension Social history: Smokes a half a pack of cigarettes a day. Denies alcohol use. Medications: Home Medications (1) Active naproxen 250 mg oral tablet 250 mg = 1 tab(s), PRN, Oral, qDay Allergies: NKA Review of systems: See HPI for pertinent positives and negatives. All other review of systems have been reviewed and they are negative. Vitals Signs(Last 24 hrs)__Last Charted Minimum Maximum Temp37.1(APR 13 21:41)37.1(APR 13 21:41)37.1(APR 13 21:41) Resp Rate16(APR 13 21:41)16(APR 13 21:41)16(APR 13 21:41) QCQ815(APR 13:41)114(APR 13 21:41)114(APR 13 21:41) DBP62(APR 13 21:41)62(APR 13 21:41)62(APR 13 21:41) Physical examination: HEENT: No Pallor, No Icterus Cardiac: Tachycardia, No murmur Lungs: Crackles in the bases no wheezing Abdomen: Soft Non tender Musculoskeletal: No joint pains or swelling Extremities: No edema, good pulses Neurological: Alert, no deficits Skin: No rash, no nodules Labs: As mentioned in the HPI Assessment and plan: Patient was accepted as a transfer from [place] emergency room by my colleague on 04/13/2022 due to concern for septic emboli. Concern for endocarditis with CT of the chest concerning for septic emboli. Patient has a history of IV drug abuse therefore is at risk for endocarditis. Blood cultures in process. We will order an echocardiogram. We will continue the patient on vancomycin and Zosyn. We will consult infectious disease. Anemia. Most likely iron deficiency and chronic. We will check iron studies. No concern at the moment for active bleeding. Hyponatremia. Will monitor we will check repeat labs. Elevated LFTs. Patient does have a history of hepatitis C. We will monitor. Tobacco abuse. Patient declined nicotine patch IV drug abuse. Patient reports that he last used IV drugs around 3 months ago. Chronic hepatitis C Prophylaxis SCDs CODE STATUS full code Digitally Signed by SHARIF HERBERT MD on 04/13/2022 10:17 PM [id number] Evaluation + Plan noteExtracted from: Title:Clinical Document Author:SHARIF HERBERT MD Date:04/13/22 [facility] Medicine Hospitalist History and Physical Date of Admission: 04/13/2022 Chief complaint: Shortness of breath History of present illness: History is taken from talking with the patient as well as reviewing medical records. Patient was accepted as a transfer from [place] emergency department by my colleague. Patient has a past medical history of tobacco abuse, IV drug abuse, hepatitis C, pneumonia. Patient was last discharged from here on 12/07/2019 and during that admission the patient was here for pneumonia with hemoptysis. Patient reports that he has been having ongoing diffuse bilateral chest pain and shortness of breath for several weeks. He states that he overall is has just not been feeling well. He denies fevers, chills or night sweats. Has a nonproductive cough. Denies sick contacts or recent travel. Patient reports a history of IV drug abuse and states that he last used around 3 months ago. Since presenting to the emergency room the patient has been afebrile, tachycardic up to 120, blood pressure 114/62, 99% room air. Labs and imaging of note: WBC 18.2 hemoglobin 8.5 and in 2019 was 14.0. Urinalysis not concerning for infection Sodium 132 otherwise no concerning finding on BMP Total bilirubin 0.9 alkaline phosphatase 180 AST 91 ALT 112 Lactic acid 0.7 proBNP 4 and 29 High sensitive troponin less than 4.0 Alcohol level less than 3 Drug screen negative X-ray of the right shoulder did not show any concerning finding CT angiography of the chest with contrast is negative for pulmonary embolism. Interval development of multiple nodules predominantly cavitary suggestive of septic emboli or inflammatory process. EKG shows sinus tachycardia with a heart rate at [address] elevation or ST depression. Prior to transfer they did order blood cultures and the patient was given vancomycin and Zosyn. Past medical history: Hepatitis C Overdose Tobacco use Hernia Family history: Hypertension Social history: Smokes a half a pack of cigarettes a day. Denies alcohol use. Medications: Home Medications (1) Active naproxen 250 mg oral tablet 250 mg = 1 tab(s), PRN, Oral, qDay Allergies: NKA Review of systems: See HPI for pertinent positives and negatives. All other review of systems have been reviewed and they are negative. Vitals Signs(Last 24 hrs)__Last Charted Minimum Maximum Temp37.1(APR 13 21:41)37.1(APR 13 21:41)37.1(APR 13 21:41) Resp Rate16(APR 13 21:41)16(APR 13 21:41)16(APR 13 21:41) FBH920(APR 13:41)114(APR 13 21:41)114(APR 13 21:41) DBP62(APR 13 21:41)62(APR 13 21:41)62(APR 13 21:41) Physical examination: HEENT: No Pallor, No Icterus Cardiac: Tachycardia, No murmur Lungs: Crackles in the bases no wheezing Abdomen: Soft Non tender Musculoskeletal: No joint pains or swelling Extremities: No edema, good pulses Neurological: Alert, no deficits Skin: No rash, no nodules Labs: As mentioned in the HPI Assessment and plan: Patient was accepted as a transfer from [place] emergency room by my colleague on 04/13/2022 due to concern for septic emboli. Concern for endocarditis with CT of the chest concerning for septic emboli. Patient has a history of IV drug abuse therefore is at risk for endocarditis. Blood cultures in process. We will order an echocardiogram. We will continue the patient on vancomycin and Zosyn. We will consult infectious disease. Anemia. Most likely iron deficiency and chronic. We will check iron studies. No concern at the moment for active bleeding. Hyponatremia. Will monitor we will check repeat labs. Elevated LFTs. Patient does have a history of hepatitis C. We will monitor. Tobacco abuse. Patient declined nicotine patch IV drug abuse. Patient reports that he last used IV drugs around 3 months ago. Chronic hepatitis C Prophylaxis SCDs CODE STATUS full code [facility] 12-20-2022 Hospital Discharge instructions Patient Education 04/06/2022 09:22:02 Self-Care for Strains and Sprains Self-Care for Strains and Sprains Most minor strains and sprains can be treated with self-care. Recovering from a strain or sprain may take 6 to 8 weeks. Your self-care goal is to reduce pain and immobilize the injury to speed healing. A sprain injures ligaments (tissue that connects bones to bones). A strain injures muscles or tendons (tissue that connects muscles to bones). Support the injured area Wrapping the injured area provides support for short, necessary activities. Be careful not to wrap the area too tightly. This could cut off the blood supply. Support a wrist, elbow, or shoulder with a sling. Wrap an ankle or knee with an elastic bandage. Tape a finger or toe to the one next to it. Use cold and heat Cold reduces swelling. Both cold and heat reduce pain. Heat should not be used in the initial treatment of the injury. When using cold or heat, always place a thin towel between the pack and your skin. Apply ice or a cold pack 10 to 15 minutes every hour you re awake for the first 2 days. After the swelling goes down, use cold or heat to control pain. Don t use heat late in the day, since it can cause swelling when you re not active. Rest and elevate Rest and elevation help your injury heal faster. Raise the injured area above your heart level. Keep the injured area from moving. Limit the use of the joint or limb. Use medicine Aspirin reduces pain and swelling. (Note: Don t give aspirin to a child 18 or younger unless prescribed by the doctor.) Non-steroidal anti-inflammatory medicines, such as ibuprofen, may reduce pain and swelling, as well. Ask your healthcare provider for advice. When to call your healthcare provider Call your healthcare provider if: The injured joint won t move, or bones make a grating sound when they move You can t put weight on the injured area, even after 24 hours The injured body part is cold, blue, tingling, or numb The joint or limb appears bent or crooked. Pain increases or doesn t improve in 4 days When pressing along the injured area, you notice a spot that is especially painful [id number] [employer]. [address] [place] [address]. All rights reserved. This information is not intended as a substitute for professional medical care. Always follow yourhealthcare professional's instructions. Follow Up Care 04/06/2022 09:04:39 With:Call Physician Referral Address:Unknown When:2-4 days Comments:Schedule an appropriate for follow-up if your symptoms are not improving and to establish a primarycare doctor.Use ice/cold compresses to the painful area.Use naproxen as prescribed for pain and swelling and cyclobenzaprine for muscle pain and spasm as needed.Lifting restrictions with right arm asdetailed in ongoing instructions.Return to the ED if your symptoms worsen. [facility] 12-20-2022 Note Discharge Instructions Thank you for allowing [facility] to assist you with your healthcare needs. The following is importantdischarge information regarding your hospital visit. Diagnosis from Today's Visit Shoulder pain-swelling What to Do Next Instructions from Your Care Team Discharge Return to Work, School, or Sports (Return to Work, School, or Sports) - Ordered -- 04/06/22, 04/09/22, Return to Work - WITH Restrictions, 04/10/22, May return to: work, Lifting: Occasionally, 11-20 lbs, Lifting restrictions limited to right arm, 04/06/22 9:26:00 EST Post Acute Orders No qualifying data available. You Need to Schedule the Following Appointments Follow Up with Call Physician Referral When Within 2-4 days Why: Schedule an appropriate for follow-up if your symptoms are not improving and to establish a primarycare doctor. Use ice/cold compresses to the painful area. Use naproxen as prescribed for pain and swelling and cyclobenzaprine for muscle pain and spasm as needed. Lifting restrictions with right arm as detailed in ongoing instructions. Return to the ED if your symptoms worsen. Allergies NKA Medications Please ask your primary doctor or pharmacist before taking any other medication not listed, including over the counter drugs, herbal medications, vitamins and or supplements as they may interact withyour home medications. What How Much When Instructions Last Dose New cyclobenzaprine (cyclobenzaprine 10 mg oral tablet) 1 tab(s) by mouth Three (3) times a day as needed for As needed for muscle pain and spasm Duration: 7 Days Printed Prescription New naproxen (naproxen 500 mg oral tablet) 1 tab(s) by mouth Two (2) times a day as needed for As needed for pain Duration: 7 Days Printed Prescription Please take this list to your next doctor s visit. Bring all medications you take, including over the counter medications, herbals and other supplements with you to your doctor s visit. Patients and families are reminded to discard old lists and to update any records with all medication providers or retail pharmacies. Medication Leaflets naproxen (na PROX en) Aleve, Anaprox-DS, Midol Extended Relief, Naprelan 500, Naprosyn What is the most important information I should know about naproxen? Naproxen can increase your risk of fatal heart attack or stroke. Do not use this medicine just before or after heart bypass surgery (coronary artery bypass graft, or CABG). Naproxen may also cause stomach or intestinal bleeding, which can be fatal. What is naproxen? Naproxen is a nonsteroidal anti-inflammatory drug (NSAID). Naproxen is used to treat pain or inflammation caused by conditions such as arthritis, ankylosing spondylitis, tendinitis, bursitis, gout, or menstrual cramps. The delayed-release or extended-release tablets are slower-acting forms of naproxen that are used only for treating chronic conditions such as arthritis or ankylosing spondylitis. These forms of naproxen will not work fast enough to treat acute pain. Naproxen may also be used for purposes not listed in this medication guide. What should I discuss with my healthcare provider before taking naproxen? Naproxen can increase your risk of fatal heart attack or stroke, even if you don't have any risk factors. Do not use this medicine just before or after heart bypass surgery (coronary artery bypass graft, or CABG). Naproxen may also cause stomach or intestinal bleeding, which can be fatal. These conditions can occur without warning while you are using naproxen, especially in older adults. You should not use naproxen if you are allergic to it, or if you have ever had an asthma attack or severe allergic reaction after taking aspirin or an NSAID. Ask a doctor before giving naproxen to a child younger than 12 years old. Ask a doctor or pharmacist if this medicine is safe to use if you have: heart disease, high blood pressure, high cholesterol, diabetes, or if you smoke; a heart attack, stroke, or blood clot; stomach ulcers or bleeding; asthma; liver or kidney disease; fluid retention; or if you take aspirin to prevent heart attack or stroke. If you are , you should not take naproxen unless your doctor tells you to. Taking an NSAID during the last 20 weeks of can cause serious heart or kidney problems in the unborn baby and possible complications with your . It may not be safe to breastfeed while using this medicine. Ask your doctor about any risk. How should I take naproxen? Use exactly as directed on the label, or as prescribed by your doctor. Use the lowest dose that is effective in treating your condition. Shake the oral suspension (liquid) before you measure a dose. Measure a dose with the supplied measuring device (not a kitchen spoon). Take this medicine with food or milk if it upsets your stomach. Always follow directions on the medicine label about giving this medicine to a child. Naproxen doses are based on weight in children. Your child's dose needs may change if the child gains or loses weight. If you use naproxen long-term, you may need frequent medical tests. This medicine can affect the results of certain medical tests. Tell any doctor who treats you that you are using naproxen. Store at room temperature away from moisture, heat, and light. Keep the bottle tightly closed when not in use. What happens if I miss a dose? Since naproxen is used when needed, you may not be on a dosing schedule. Skip any missed dose if it's almost time for your next dose. Do not use two doses at one time. What happens if I overdose? Seek emergency medical attention or call the Poison Help line at . What should I avoid while taking naproxen? Avoid drinking alcohol. It may increase your risk of stomach bleeding. Avoid taking aspirin or other NSAIDs unless your doctor tells you to. Ask a doctor or pharmacist before using other medicines for pain, fever, swelling, or cold/flu symptoms. They may contain ingredients similar to naproxen (such as aspirin, ibuprofen, or ketoprofen). Ask your doctor before using an antacid, and use only the type your doctor recommends. Some antacids can make it harder for your body to absorb naproxen. What are the possible side effects of naproxen? Get emergency medical help if you have signs of an allergic reaction (runny or stuffy nose, wheezing or trouble breathing, hives, swelling in your face or throat) or a severe skin reaction (fever, sore throat, burning eyes, skin pain, red or purple skin rash with blistering and peeling). Stop using naproxen and seek medical treatment if you have a serious drug reaction that can affect many parts of your body. Symptoms may include skin rash, fever, swollen glands, muscle aches, severeweakness, unusual bruising, or yellowing of your skin or eyes. Get emergency medical help if you have signs of a heart attack or stroke: chest pain spreading to your jaw or shoulder, sudden numbness or weakness on one side of the body, slurred speech, leg swelling, feeling short of breath. Stop using naproxen and call your doctor at once if you have: shortness of breath (even with mild exertion); swelling or rapid weight gain; the first sign of any skin rash or blister, no matter how mild; signs of stomach bleeding--bloody or tarry stools, coughing up blood or vomit that looks like coffee grounds; liver problems--nausea, upper stomach pain, loss of appetite, dark urine, angelito- colored stools, jaundice (yellowing of the skin or eyes); kidney problems--little or no urination, painful urination, swelling in your feet or ankles; or low red blood cells (anemia)--pale skin, unusual tiredness, feeling light-headed or short of breath, cold hands and feet. Common side effects may include: headache; indigestion, heartburn, stomach pain; or flu symptoms; This is not a complete list of side effects and others may occur. Call your doctor for medical advice about side effects. You may report side effects to FDA at 9-739-YNT-1774. What other drugs will affect naproxen? Ask your doctor before using naproxen if you take an antidepressant. Taking certain antidepressantswith an NSAID may cause you to bruise or bleed easily. Ask a doctor or pharmacist before using naproxen with any other medications, especially: other NSAIDs or salicylates (diflunisal, salsalate); antacids and sucralfate; cholestyramine; cyclosporine; digoxin; lithium; methotrexate; pemetrexed; probenecid; warfarin (Coumadin, Jantoven) or similar blood thinners; a diuretic or 'water pill'; or heart or blood pressure medication. This list is not complete. Other drugs may affect naproxen, including prescription and iouo-equ-uamltmm medicines, vitamins, and herbal products. Not all possible drug interactions are listed here. Where can I get more information? Your pharmacist can provide more information about naproxen. Remember, keep this and all other medicines out of the reach of children, never share your medicines with others, and use this medication only for the indication prescribed. Every effort has been made to ensure that the information provided by [employer]. ('[employer]') is accurate, up-to-date, and complete, but no guarantee is made to that effect. Drug information contained herein may be time sensitive. [employer] information has been compiled for use by healthcare practitioners and consumers in the [place] and therefore [employer] does not warrant that uses outside of the [place] are appropriate, unless specifically indicated otherwise. [employer] drug information does not endorse drugs, diagnose patients or recommend therapy. [employer] drug information isan informational resource designed to assist licensed healthcare practitioners in caring for their p atients and/or to serve consumers viewing this service as a supplement to, and not a substitute for, the expertise, skill, knowledge and judgment of healthcare practitioners. The absence of a warningfor a given drug or drug combination in no way should be construed to indicate that the drug or drug combination is safe, effective or appropriate for any given patient. [facility] does not assume any responsibility for any aspect of healthcare administered with the aid of information [facility] provides. The information contained herein is not intended to cover all possible uses, directions, precautions, warnings, drug interactions, allergic reactions, or adverse effects. If you have questions about the drugs you are taking, check with your doctor, nurse or pharmacist. Copyright 2856-9767 [facility] [place]. Version: .. Revision Date: 08/25/2021. cyclobenzaprine ([facility] [place]) Aylin Jacinto Pac with Cyclobenzaprine, Fexmid What is the most important information I should know about cyclobenzaprine? You should not use cyclobenzaprine if you have a thyroid disorder, heart block, congestive heart failure, a heart rhythm disorder, or you have recently had a heart attack. Do not use cyclobenzaprine if you have taken an MAO inhibitor in the past 14 days, such as isocarboxazid, linezolid, phenelzine, rasagiline, selegiline, or tranylcypromine. What is cyclobenzaprine? Cyclobenzaprine is a muscle relaxant. It works by blocking nerve impulses (or pain sensations) thatare sent to your brain. Cyclobenzaprine is used together with rest and physical therapy to relieve muscle spasms caused by painful conditions such as an injury. Cyclobenzaprine may also be used for purposes not listed in this medication guide. What should I discuss with my healthcare provider before taking cyclobenzaprine? You should not use cyclobenzaprine if you are allergic to it, or if you have: a thyroid disorder; heart block, heart rhythm disorder, congestive heart failure; or if you have recently had a heart attack. Cyclobenzaprine is not approved for use by anyone younger than 15 years old. Do not use cyclobenzaprine if you have taken an MAO inhibitor in the past 14 days. A dangerous druginteraction could occur. MAO inhibitors include isocarboxazid, linezolid, phenelzine, rasagiline, selegiline, and tranylcypromine. Some medicines can interact with cyclobenzaprine and cause a serious condition called serotonin syndrome. Be sure your doctor knows if you also take stimulant medicine, opioid medicine, herbal products, or medicine for depression, mental illness, Parkinson's disease, migraine headaches, serious infections, or prevention of nausea and vomiting. Ask your doctor before making any changes in how or when you take your medications. Tell your doctor if you have ever had: liver disease; glaucoma; enlarged prostate; or problems with urination. It is not known whether this medicine will harm an unborn baby. Tell your doctor if you are or plan to become . It may not be safe to breast-feed while using this medicine. Ask your doctor about any risk. Older adults may be more sensitive to the effects of this medicine. How should I take cyclobenzaprine? Follow all directions on your prescription label and read all medication guides or instruction sheets. Your doctor may occasionally change your dose. Use the medicine exactly as directed. Cyclobenzaprine is usually taken once daily for only 2 or 3 weeks. Follow your doctor's dosing instructions very carefully. Swallow the capsule whole and do not crush, chew, break, or open it. Take the medicine at the same time each day. Call your doctor if your symptoms do not improve after 3 weeks, or if they get worse. Store at room temperature away from moisture, heat, and light. What happens if I miss a dose? Take the medicine as soon as you can, but skip the missed dose if it is almost time for your next dose. Do not take two doses at one time. What happens if I overdose? Seek emergency medical attention or call the Poison Help line at . An overdose of cyclobenzaprine can be fatal. Overdose symptoms may include severe drowsiness, vomiting, fast heartbeats, tremors, agitation, or hallucinations. What should I avoid while taking cyclobenzaprine? Avoid driving or hazardous activity until you know how this medicine will affect you. Your reactions could be impaired. Avoid drinking alcohol. Dangerous side effects could occur. What are the possible side effects of cyclobenzaprine? Get emergency medical help if you have signs of an allergic reaction: hives; difficult breathing; swelling of your face, lips, tongue, or throat. Stop using cyclobenzaprine and call your doctor at once if you have: fast or irregular heartbeats; chest pain or pressure, pain spreading to your jaw or shoulder; or sudden numbness or weakness (especially on one side of the body), slurred speech, balance problems. Seek medical attention right away if you have symptoms of serotonin syndrome, such as: agitation, hallucinations, fever, sweating, shivering, fast heart rate, muscle stiffness, twitching, loss of coordination, nausea, vomiting, or diarrhea. Serious side effects may be more likely in older adults. Common side effects may include: drowsiness, tiredness; headache, dizziness; dry mouth; or upset stomach, nausea, constipation. This is not a complete list of side effects and others may occur. Call your doctor for medical advice about side effects. You may report side effects to FDA at 4-004-NJG-3011. What other drugs will affect cyclobenzaprine? Using cyclobenzaprine with other drugs that make you drowsy can worsen this effect. Ask your doctorbefore using opioid medication, a sleeping pill, a muscle relaxer, or medicine for anxiety or seizures. Tell your doctor about all your other medicines, especially: bupropion (Zyban, for smoking cessation); meperidine; tramadol; verapamil; cold or allergy medicine that contains an antihistamine (Benadryl and others); medicine to treat Parkinson's disease; medicine to treat excess stomach acid, stomach ulcer, motion sickness, or irritable bowel syndrome; medicine to treat overactive bladder; or bronchodilator asthma medication. This list is not complete. Other drugs may affect cyclobenzaprine, including prescription and hahq-krx-lnwvxbu medicines, vitamins, and herbal products. Not all possible drug interactions are listed here. Where can I get more information? Your pharmacist can provide more information about cyclobenzaprine. Remember, keep this and all other medicines out of the reach of children, never share your medicines with others, and use this medication only for the indication prescribed. Every effort has been made to ensure that the information provided by [employer]. ('[employer]') is accurate, up-to-date, and complete, but no guarantee is made to that effect. Drug information contained herein may be time sensitive. [employer] information has been compiled for use by healthcare practitioners and consumers in the [place] and therefore [employer] does not warrant that uses outside of the [place] are appropriate, unless specifically indicated otherwise. [employer] drug information does not endorse drugs, diagnose patients or recommend therapy. [employer] drug information isan informational resource designed to assist licensed healthcare practitioners in caring for their p atients and/or to serve consumers viewing this service as a supplement to, and not a substitute for, the expertise, skill, knowledge and judgment of healthcare practitioners. The absence of a warningfor a given drug or drug combination in no way should be construed to indicate that the drug or drug combination is safe, effective or appropriate for any given patient. [employer] does not assume any responsibility for any aspect of healthcare administered with the aid of information [employer] provides. The information contained herein is not intended to cover all possible uses, directions, precautions, warnings, drug interactions, allergic reactions, or adverse effects. If you have questions about the drugs you are taking, check with your doctor, nurse or pharmacist. Copyright 4402-0803 [employer]. Version: 5.01. Revision Date: 01/11/2018. Education Materials Self-Care for Strains and Sprains Most minor strains and sprains can be treated with self-care. Recovering from a strain or sprain may take 6 to 8 weeks. Your self-care goal is to reduce pain and immobilize the injury to speed healing. A sprain injures ligaments (tissue that connects bones to bones). A strain injures muscles or tendons (tissue that connects muscles to bones). Support the injured area Wrapping the injured area provides support for short, necessary activities. Be careful not to wrap the area too tightly. This could cut off the blood supply. Support a wrist, elbow, or shoulder with a sling. Wrap an ankle or knee with an elastic bandage. Tape a finger or toe to the one next to it. Use cold and heat Cold reduces swelling. Both cold and heat reduce pain. Heat should not be used in the initial treatment of the injury. When using cold or heat, always place a thin towel between the pack and your skin. Apply ice or a cold pack 10 to 15 minutes every hour you re awake for the first 2 days. After the swelling goes down, use cold or heat to control pain. Don t use heat late in the day, since it can cause swelling when you re not active. Rest and elevate Rest and elevation help your injury heal faster. Raise the injured area above your heart level. Keep the injured area from moving. Limit the use of the joint or limb. Use medicine Aspirin reduces pain and swelling. (Note: Don t give aspirin to a child 18 or younger unless prescribed by the doctor.) Non-steroidal anti-inflammatory medicines, such as ibuprofen, may reduce pain and swelling, as well. Ask your healthcare provider for advice. When to call your healthcare provider Call your healthcare provider if: The injured joint won t move, or bones make a grating sound when they move You can t put weight on the injured area, even after 24 hours The injured body part is cold, blue, tingling, or numb The joint or limb appears bent or crooked. Pain increases or doesn t improve in 4 days When pressing along the injured area, you notice a spot that is especially painful [id number] [employer]. [address] [place] [address]. All rights reserved. This information is not intended as a substitute for professional medical care. Always follow yourhealthcare professional's instructions. Additional Information VACCINATE! IT SAVES LIVES! Members of the community who have not yet received the COVID-19 vaccine and would like to receive it can visit one of [facility] vaccine clinics. There are many vaccine clinic locations within the [facility]. For locations and available times, please visit [email or web address]. It is important to note that some COVID mobile vaccine clinics are held outdoors and may be canceled in rainy orstormy conditions. To learn more about pediatric vaccinations (ages 5-11), we invite you to visit the [facility] webpage. [email or web address] learn more about the COVID-19 vaccine, we invite you to visit the [facility] website for a list of frequently asked questions. [email or web address] [facility] Patient Portal Access Instructions: Stay connected with your healthcare team and access your personal medical information anytime with the [facility] [employer] Patient Portal. If you would like a full copy of your medical records please contact the [facility] Medical Records Department Tuesday through Yevgeniy between 8a.m. and 4:30p.m. Please follow the directions below to access the portal: 1.Access the email account you provided upon registration to the [facility].2.Look for an invitation email from [facility].3.Open the email and access the invitation link: Accept Invitation to [facility]4.Fill in the required sandoval to create your account. Sign into [email or web address] with your username and password that you created in the above steps to stay up to date. You can then view a summary of results, a summary of your visits, and the ability to download your summaries to your computer or send the information securely to a physician. Remember that your healthcare information is confidential, so carefully consider who you will allow to register on the [facility] [employer] Patient Portal for access to your information. You can also access the [facility] Patient Portal on the [employer]. Simply click on Health Records under [employer] and then click on the [facility] logo. HOW TO SAFELY DISPOSE OF PRESCRIPTION MEDICATIONS Please use one of the following methods to safely dispose of your unused medications. 1.Use a drug disposal kit: the drug disposal pouch allows you to safely discard your old and unuseddrugs. Ask your nurse to give you one when you are discharged.2.Visit a local take-back location: Many local pharmacies and police departments have programs that collect old and unwanted prescriptiondrugs. Call your local pharmacy or go to http://bit.ly/8F3Uj9p to find one close to you.3.Make use of household items: Use cat litter or old coffee grounds to dispose medications if other options arenot available. Mix your drugs with these household products, seal them in an airtight container andthrow it into the garbage. Call [facility]: [phone] to be sure your drugs can be disposed of in this way. Some medicines may require a different approach.4.Never flush your medications down the toilet. IF YOU HAVE BEEN PRESCRIBED AN OPIOIDS FOR PAIN If you have been prescribed an opioid (such as hydrocodone, oxycodone or morphine), it is critical to understand the possible side effects and risks of opioid pain medications. Even when taken as directed, opioids can have several side effects including: Tolerance, meaning you might need to take more of a medication for the same pain relief. Nausea, vomiting and/or constipation. Sleepiness, dizziness, dry mouth, confusion, depression or itching. Physical dependence, meaning you have withdrawal symptoms when a medication is stopped ? this can develop within a few days. KNOW YOUR RESPONSIBILITIES It is important to know exactly how much and how often to take the opioid pain medications you are prescribed. Never take opioids in higher amounts or more often than prescribed. Do not combine opioids with alcohol or other drugs that cause drowsiness, such as benzodiazepines, also known as benzos,including diazepam and alprazolam, muscle relaxants or sleep aids. Never sell or share prescriptionopioids. This is illegal. Store opioids in a secure place and out of reach of others (including children, family, friends and visitors). The last page(s) of this document has been signed and retained as a CHART COPY Signatures Patient Education Materials Self-Care for Strains and Sprains Medication Leaflets naproxen, cyclobenzaprine My discharge plan and instructions have been reviewed and explained to me and I,SAM JIMENEZ understand my current condition and have read and understand these discharge instructions. I have received a written copy of the plan/instructions. If I have questions, I am aware that I should contact my doctor. Patient/Leave Specialist Signature: Date/Time: Relationship to Patient: Witness Name/Signature: Date/Time: [facility]07-30-2022 Hospital Discharge instructions Patient Education 11/14/2021 02:40:42 Overdose, Accidental (Adult) Accidental Ingestion: Nontoxic (Adult) You have been evaluated and treated for accidentally taking too much of a medicine or swallowing a chemical product. There is no sign of toxic effect at this time. It's not likely that any new symptoms will appear. But, to be safe, watch for symptoms during the next 24 hours (see below). The symptoms will depend on what was swallowed. Home care If liquid charcoal was given to neutralize what was swallowed, Your stool may be black for 1 to 2 days. Usually, a laxative is given with charcoal. This speeds the removal of any toxins from the intestines. This may cause diarrhea for up to 24 hours. If you have been given charcoal but no laxative, you may become constipated. If this occurs, you may take an stsn-hco-gpyxgfb laxative. Prevention Keep medicines, pesticides, and other household chemicals in their original containers. Clearly benedict all harmful products if a different bottle is used. Keep all substances in a safe place. In the future, if you or someone you know takes something possibly harmful, and you are not sure what to do, call the [place] [employer] [facility]. The phone number is [phone].The phone line is staffed 24 hours a day. If you call, you will be connected to the poison control center closest to you. Follow-up care Follow up with your healthcare provider, or as advised. Call 911 Call 911 if any of these occur. Trouble breathing or swallowing, wheezing Severe confusion Extreme drowsiness or trouble awakening Fainting or loss of consciousness Rapid heart rate Very slow heart rate Very low or very high blood pressure Vomiting blood, or large amounts of blood in stool Seizure When to seek medical advice Call your healthcare provider right away if any of these occur. Shakiness Fast breathing (over 25 breaths per minute) or slow breathing (less than 8 breaths per minute) Shortness of breath Fever of 100.4 F (38 C) or higher, or as directed by your healthcare provider Vomiting or diarrhea for more than 24 hours Abdominal pain Dizziness or weakness [id number] [employer]. [address] [place] [address], [place] [address]. All rights reserved. This information is not intended as a substitute for professional medical care. Always follow yourhealthcare professional's instructions. 11/14/2021 02:40:42 Overdose, Accidental (Adult) Accidental Ingestion: Nontoxic (Adult) You have been evaluated and treated for accidentally taking too much of a medicine or swallowing a chemical product. There is no sign of toxic effect at this time. It's not likely that any new symptoms will appear. But, to be safe, watch for symptoms during the next 24 hours (see below). The symptoms will depend on what was swallowed. Home care If liquid charcoal was given to neutralize what was swallowed, Your stool may be black for 1 to 2 days. Usually, a laxative is given with charcoal. This speeds the removal of any toxins from the intestines. This may cause diarrhea for up to 24 hours. If you have been given charcoal but no laxative, you may become constipated. If this occurs, you may take an fxnj-gvz-aphvelk laxative. Prevention Keep medicines, pesticides, and other household chemicals in their original containers. Clearly benedict all harmful products if a different bottle is used. Keep all substances in a safe place. In the future, if you or someone you know takes something possibly harmful, and you are not sure what to do, call the [place] [facility]. The phone number is [phone].The phone line is staffed 24 hours a day. If you call, you will be connected to the poison control center closest to you. Follow-up care Follow up with your healthcare provider, or as advised. Call 911 Call 911 if any of these occur. Trouble breathing or swallowing, wheezing Severe confusion Extreme drowsiness or trouble awakening Fainting or loss of consciousness Rapid heart rate Very slow heart rate Very low or very high blood pressure Vomiting blood, or large amounts of blood in stool Seizure When to seek medical advice Call your healthcare provider right away if any of these occur. Shakiness Fast breathing (over 25 breaths per minute) or slow breathing (less than 8 breaths per minute) Shortness of breath Fever of 100.4 F (38 C) or higher, or as directed by your healthcare provider Vomiting or diarrhea for more than 24 hours Abdominal pain Dizziness or weakness [id number] [employer] [place] [address]. All rights reserved. This information is not intended as a substitute for professional medical care. Always follow yourhealthcare professional's instructions. Follow Up Care 11/13/2021 23:43:09 With:[facility] [phone] Address:Unknown When:2-4 days [facility] 07-30-2022 Note Discharge Instructions Thank you for allowing [facility] to assist you with your healthcare needs. The following is importantdischarge information regarding your hospital visit. Diagnosis from Today's Visit Accidental overdose of opiate Opiate overdose What to Do Next Instructions from Your Care Team No qualifying data available. Post Acute Orders No qualifying data available. You Need to Schedule the Following Appointments Follow Up with [facility] [phone] When Within 2-4 days Allergies NKA Medications Please ask your primary doctor or pharmacist before taking any other medication not listed, including over the counter drugs, herbal medications, vitamins and or supplements as they may interact withyour home medications. Please take this list to your next doctor s visit. Bring all medications you take, including over the counter medications, herbals and other supplements with you to your doctor s visit. Patients and families are reminded to discard old lists and to update any records with all medication providers or retail pharmacies. Education Materials Accidental Ingestion: Nontoxic (Adult) You have been evaluated and treated for accidentally taking too much of a medicine or swallowing a chemical product. There is no sign of toxic effect at this time. It's not likely that any new symptoms will appear. But, to be safe, watch for symptoms during the next 24 hours (see below). The symptoms will depend on what was swallowed. Home care If liquid charcoal was given to neutralize what was swallowed, Your stool may be black for 1 to 2 days. Usually, a laxative is given with charcoal. This speeds the removal of any toxins from the intestines. This may cause diarrhea for up to 24 hours. If you have been given charcoal but no laxative, you may become constipated. If this occurs, you may take an erit-llj-jsmocpw laxative. Prevention Keep medicines, pesticides, and other household chemicals in their original containers. Clearly benedict all harmful products if a different bottle is used. Keep all substances in a safe place. In the future, if you or someone you know takes something possibly harmful, and you are not sure what to do, call the [place] [employer] Poison Control Centers. The phone number is [phone].The phone line is staffed 24 hours a day. If you call, you will be connected to the poison control center closest to you. Follow-up care Follow up with your healthcare provider, or as advised. Call 911 Call 911 if any of these occur. Trouble breathing or swallowing, wheezing Severe confusion Extreme drowsiness or trouble awakening Fainting or loss of consciousness Rapid heart rate Very slow heart rate Very low or very high blood pressure Vomiting blood, or large amounts of blood in stool Seizure When to seek medical advice Call your healthcare provider right away if any of these occur. Shakiness Fast breathing (over 25 breaths per minute) or slow breathing (less than 8 breaths per minute) Shortness of breath Fever of 100.4 F (38 C) or higher, or as directed by your healthcare provider Vomiting or diarrhea for more than 24 hours Abdominal pain Dizziness or weakness [phone] [employer] [place] [address]. All rights reserved. This information is not intended as a substitute for professional medical care. Always follow yourhealthcare professional's instructions. Accidental Ingestion: Nontoxic (Adult) You have been evaluated and treated for accidentally taking too much of a medicine or swallowing a chemical product. There is no sign of toxic effect at this time. It's not likely that any new symptoms will appear. But, to be safe, watch for symptoms during the next 24 hours (see below). The symptoms will depend on what was swallowed. Home care If liquid charcoal was given to neutralize what was swallowed, Your stool may be black for 1 to 2 days. Usually, a laxative is given with charcoal. This speeds the removal of any toxins from the intestines. This may cause diarrhea for up to 24 hours. If you have been given charcoal but no laxative, you may become constipated. If this occurs, you may take an vczq-emf-uruostq laxative. Prevention Keep medicines, pesticides, and other household chemicals in their original containers. Clearly benedict all harmful products if a different bottle is used. Keep all substances in a safe place. In the future, if you or someone you know takes something possibly harmful, and you are not sure what to do, call the [place] Poison Control Centers. The phone number is [phone].The phone line is staffed 24 hours a day. If you call, you will be connected to the poison control center closest to you. Follow-up care Follow up with your healthcare provider, or as advised. Call 911 Call 911 if any of these occur. Trouble breathing or swallowing, wheezing Severe confusion Extreme drowsiness or trouble awakening Fainting or loss of consciousness Rapid heart rate Very slow heart rate Very low or very high blood pressure Vomiting blood, or large amounts of blood in stool Seizure When to seek medical advice Call your healthcare provider right away if any of these occur. Shakiness Fast breathing (over 25 breaths per minute) or slow breathing (less than 8 breaths per minute) Shortness of breath Fever of 100.4 F (38 C) or higher, or as directed by your healthcare provider Vomiting or diarrhea for more than 24 hours Abdominal pain Dizziness or weakness [phone] [employer]. [address] [place] [address]. All rights reserved. This information is not intended as a substitute for professional medical care. Always follow yourhealthcare professional's instructions. Additional Information VACCINATE! IT SAVES LIVES! Members of the community who have not yet received the COVID-19 vaccine and would like to receive it can visit one of [facility] vaccine clinics. There are many vaccine clinic locations within the [facility]. For locations and available times, please visit [email or web address]. It is important to note that some COVID mobile vaccine clinics are held outdoors and may be canceled in rainy orstormy conditions. To learn more about pediatric vaccinations (ages 5-11), we invite you to visit the [facility] webpage. [email or web address] [email or web address] learn more about the COVID-19 vaccine, we invite you to visit the [facility] website for a list of frequently asked questions. [email or web address] _[email or web address].pdf [facility] Patient Portal Access Instructions: Stay connected with your healthcare team and access your personal medical information anytime with the [facility] [employer] Patient Portal. If you would like a full copy of your medical records please contact the [facility] Medical Records Department Tuesday through Tuesday between 8a.m. and 4:30p.m. Please follow the directions below to access the portal: 1.Access the email account you provided upon registration to the [facility].2.Look for an invitation email from [facility].3.Open the email and access the invitation link: Accept Invitation to [employer]4.Fill in the required sandoval to create your account. Sign into www.[employer] with your username and password that you created in the above steps to stay up to date. You can then view a summary of results, a summary of your visits, and the ability to download your summaries to your computer or send the information securely to a physician. Remember that your healthcare information is confidential, so carefully consider who you will allow to register on the [employer] Patient Portal for access to your information. You can also access the [employer] Patient Portal on the [employer]. Simply click on Health Records under [employer] and then click on the [employer] logo. HOW TO SAFELY DISPOSE OF PRESCRIPTION MEDICATIONS Please use one of the following methods to safely dispose of your unused medications. 1.Use a drug disposal kit: the drug disposal pouch allows you to safely discard your old and unuseddrugs. Ask your nurse to give you one when you are discharged.2.Visit a local take-back location: Many local pharmacies and police departments have programs that collect old and unwanted prescriptiondrugs. Call your local pharmacy or go to http://Givit.e(ye)BRAIN/2P6Ol4j to find one close to you.3.Make use of household items: Use cat litter or old coffee grounds to dispose medications if other options arenot available. Mix your drugs with these household products, seal them in an airtight container andthrow it into the garbage. Call [facility]: [phone] to be sure your drugs can be disposed of in this way. Some medicines may require a different approach.4.Never flush your medications down the toilet. IF YOU HAVE BEEN PRESCRIBED AN OPIOIDS FOR PAIN If you have been prescribed an opioid (such as hydrocodone, oxycodone or morphine), it is critical to understand the possible side effects and risks of opioid pain medications. Even when taken as directed, opioids can have several side effects including: Tolerance, meaning you might need to take more of a medication for the same pain relief. Nausea, vomiting and/or constipation. Sleepiness, dizziness, dry mouth, confusion, depression or itching. Physical dependence, meaning you have withdrawal symptoms when a medication is stopped ? this can develop within a few days. KNOW YOUR RESPONSIBILITIES It is important to know exactly how much and how often to take the opioid pain medications you are prescribed. Never take opioids in higher amounts or more often than prescribed. Do not combine opioids with alcohol or other drugs that cause drowsiness, such as benzodiazepines, also known as benzos,including diazepam and alprazolam, muscle relaxants or sleep aids. Never sell or share prescriptionopioids. This is illegal. Store opioids in a secure place and out of reach of others (including children, family, friends and visitors). The last page(s) of this document has been signed and retained as a CHART COPY Signatures Patient Education Materials Overdose, Accidental (Adult) Overdose, Accidental (Adult) Medication Leaflets My discharge plan and instructions have been reviewed and explained to me and I,SAM JIMENEZ understand my current condition and have read and understand these discharge instructions. I have received a written copy of the plan/instructions. If I have questions, I am aware that I should contact my doctor. Patient/Leave Specialist Signature: Date/Time: Relationship to Patient: Witness Name/Signature: [facility] No data available for this section [facility] Evaluation + Plan note Future Appointments Appointment Date:12/05/2024 02:00:00 PM Scheduled Provider:KIKA MESSINA MD Location:[facility] Appointment Type:CTS OV Post Op Follow Up Appointment Date:01/07/2025 01:15:00 PM Scheduled Provider: Location:[facility] Appointment Type:CV Office Procedure PPM Appointment Date:04/08/2025 05:30:00 PM Scheduled Provider: Location:[facility] Appointment Type:CV Remote Procedure [facility] Evaluation noteNo assessment information available [facility] Work Phone: Evaluation note* 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 Chronic hepatitis C with hepatic coma (HCC)- Primary Chronic hepatitis C with hepatic coma [facility] Surgery follow-up Follow-up examination, following unspecified surgery [facility] Diagnosis Chronic hepatitis C without hepatic coma (HCC)- Primary Chronic hepatitis C without mention of hepatic coma [facility] Diagnosis Acute and subacute endocarditis, unspecified documented in this encounter [facility] Work Phone: Hospital Discharge instructions Additional Instructions Your x-ray does confirm there is a needle in your hand. However the needle was in the soft tissue it is not in your blood vessel or in your joint and therefore there is no risk for to travel anywhere and cause harm. Take the antibiotic as directed to prevent infection and follow-up with orthopedics to discuss possible outpatient surgery for foreign body removal if needed. Return to the ER should [facility] Work Phone: Hospital Discharge instructions No data available for this section [facility] Hospital Discharge instructions Patient Education 05/07/2023 23:59:54 Substance Use Disorder Substance Use Disorder Substance use disorder occurs when a person's repeated use of drugs or alcohol interferes with his or her ability to be productive. This disorder can cause problems with mental and physical health. It can affect your ability to have healthy relationships, and it can keep you from being able to meetyour responsibilities at work, home, or school. It can also lead to addiction, which is a conditionin which the person cannot stop using the substance consistently for a period of time. Addiction changes the way the brain works. Because of these changes, addiction is a chronic condition. Substance use disorder can be mild, moderate, or severe. The most commonly abused substances include: Alcohol. Tobacco. Marijuana. Stimulants, such as cocaine and methamphetamine. Hallucinogens, such as LSD and PCP. Opioids, such as some prescription pain medicines and heroin. What are the causes? This condition may develop due to many complex social, psychological, or physical reasons, such as: Stress. Abuse. Peer pressure. Anxiety or depression. What increases the risk? This condition is more likely to develop in people who: Use substances to cope with stress. Have been abused. Have a mental health disorder, such as depression. Have a family history of substance use disorder. What are the signs or symptoms? Symptoms of this condition include: Using the substance for longer periods of time or at a higher dosage than what is normal or intended. Having a lasting desire to use the substance. Being unable to slow down or stop the use of the substance. Spending an abnormal amount of time getting the substance, using the substance, or recovering from using the substance. Using the substance in a way that interferes with work, school, social activities, and personal relationships. Using the substance even after having negative consequences, such as: ?Health problems. ?Legal or financial troubles. ?Job loss. ?Relationship problems. Needing more and more of the substance to get the same effect (developing tolerance). Experiencing unpleasant symptoms if you do not use the substance (withdrawal). Using the substance to avoid withdrawal symptoms. How is this diagnosed? This condition may be diagnosed based on: A physical exam. Your history of substance use. Your symptoms. This includes: ?How substance use affects your life. ?Changes in personality, behaviors, and mood. ?Having at least two symptoms of substance use disorder within a 12-month period. ?Health issues related to substance use, such as liver damage, shortness of breath, fatigue, cough,or heart problems. Blood or urine tests to screen for alcohol and drugs. How is this treated? This condition may be treated by: Stopping substance use safely. This may require taking medicines and being closely monitored for several days. Taking part in group and individual counseling from mental health providers who help people with substance use disorder. Staying at a live-in (residential) treatment center for several days or weeks. Attending daily counseling sessions at a treatment center. Taking medicine as told by your health care provider: ?To ease symptoms and prevent complications during withdrawal. ?To treat other mental health issues, such as depression or anxiety. ?To block cravings by causing the same effects as the substance. ?To block the effects of the substance or replace good sensations with unpleasant ones. Participating in a support group to share your experience with others who are going through the same thing. These groups are an important part of long-term recovery for many people. Recovery can be a long process. Many people who undergo treatment start using the substance again after stopping (relapse). If you relapse, that does not mean that treatment will not work. Follow these instructions at home: Take dyto-bue-qhxmcws and prescription medicines only as told by your health care provider. Do not use any drugs or alcohol. Avoid temptations or triggers that you associate with your use of the substance. Learn and practice techniques for managing stress. Have a plan for vulnerable moments. Get phone numbers of people who are willing to help and who arecommitted to your recovery. Attend support groups on a regular basis. These groups include 12-step programs like Alcoholics Anonymous and Narcotics Anonymous. Keep all follow-up visits as told by your health care providers. This is important. This includes continuing to work with therapists and support groups. Contact a health care provider if: You cannot take your medicines as told. Your symptoms get worse. You have trouble resisting the urge to use drugs or alcohol. Get help right away if you: Relapse. Think that you may have taken too much of a drug. The hotline of the National Poison Control Centeris . Have signs of an overdose. Symptoms include: ?Chest pain. ?Confusion. ?Sleepiness or difficulty staying awake. ?Slowed breathing. ?Nausea or vomiting. ?A seizure. Have serious thoughts about hurting yourself or someone else. Drug overdose is an emergency. Do not wait to see if the symptoms will go away. Get medical help right away. Call your local emergency services (342 in the [place] Do not drive yourself to the hospital. If you ever feel like you may hurt yourself or others, or have thoughts about taking your own life,get help right away. You can go to your nearest emergency department or call: Your local emergency services (644 in the [place] A suicide crisis helpline, such as the National Suicide Prevention Lifeline at . Thisis open 24 hours a day. Summary Substance use disorder occurs when a person's repeated use of drugs or alcohol interferes with his or her ability to be productive. Taking part in group and individual counseling from mental health providers is a common treatment for people with substance use disorder. Recovery can be a long process. Many people who undergo treatment start using the substance again after stopping (relapse). A relapse does not mean that treatment will not work. Attend support groups such as Alcoholics Anonymous and Narcotics Anonymous. These groups are an important part of long-term recovery for many people. This information is not intended to replace advice given to you by your health care provider. Make sure you discuss any questions you have with your health care provider. Document Released: 11/24/2005 Document Revised: 07/26/2019 Document Reviewed: 05/16/2018 [email or web address] Patient Education 2020 [employer]. Follow Up Care 04/28/2023 10:48:20 With:REBA CHIRINOS MD Address: [address] [place] [id number]- When:1-2 days Comments:Please call the office to schedule a follow-up appointment [facility] Progress note No data available for this section [facility] Reason for referral (narrative)* Outpatient Procedure (Routine) - Authorized Specialty Diagnoses / Procedures Referred By Contac t Referred To Contact [facility] Diagnoses Infective endocarditis of tricuspid valve Procedures ECHO ECHO TTHRC R-T 2D W/WOM-MODE COMPL SPEC&[place] [address] [place] [id number] [address] Referral ID Status Reason Start Date Expiration Date Visits Requested Visits Authorized [id number] Authorized Auto-Generat ed Referral 06/03/2023 06/02/2024 1 1 * Outpatient Procedure (Routine) - Authorized Specialty Diagnoses / Procedures Referred By Contbenito t Referred To Contact [facility] Diagnoses Infective endocarditis of tricuspid valve Procedures ECG COMPLETE ECG ROUTINE ECG W/LEAST 12 LDS W/I&R Richy Lim MD [address] [place] [address] [place] [phone] Referral ID Status Reason Start Date Expiration Date Visits Requested Visits Authorized [id number] Authorized Auto-Generat ed Referral 06/03/2023 06/02/2024 1 1 [facility] Chief Complaint and Reason for Visit Chief Complaint NEEDLE BROKE OFF IN HAND Family History No Family History Records Found Relationship Condition Age at Onset Recorded Date/T cristy Unknown Family History?- Unknown February 262019 2:04am Family History?- Unknown February 262019 2:04am Advance Directives No Advanced Directives Records Found Advance Directive Response Recorded Date/ Time Living Will No July 13, 2022 5:08am Power of Locomotive Firer No July 13 5:08am Latest Code Status on File Code Status Date Activated Date Inactivated Comments Full Code 05/30/2023 1:58 PM 06/01/2023 6:12 PM Question Answer Comments Full Code Order Discussed With: Patient Code Status History Code Status Date Activated Date Inactivated Comments Full Code 05/08/2023 5:07 PM 05/30/2023 1:37 PM Question Answer Comments Full Code Order Discussed With: Patient Latest Code Status on File Code Status Date Activated Date Inactivated Comments Full Code 05/30/2023 1:58 PM 06/01/2023 6:12 PM Question Answer Comments Full Code Order Discussed With: Patient Code Status History Code Status Date Activated Date Inactivated Comments Full Code 05/08/2023 5:07 PM 05/30/2023 1:37 PM Question Answer Comments Full Code Order Discussed With: Patient Date Activated Date Inactivated Comments 05/30/2023 1:58 PM 06/01/2023 6:12 PM Question Answer Comments Full Code Order Discussed With: Patient Date Activated Date Inactivated Comments 05/08/2023 5:07 PM 05/30/2023 1:37 PM Question Answer Comments Full Code Order Discussed With: Patient Summary Purpose Reason for Referral Specialty Diagnoses / Procedures Referred By Leilani ponce Referred To Contact Radiology Diagnoses Acute and subacute endocarditis, unspecified Procedures IR CVC removal OR RMVL MARTIN CVC W/O SUBQ [employer] Melissa Cope, FEED IN WORKER-MIGRATION AGENT [address] [place] [address] Referral ID Status Reason Start Date Expiration Date Visits Requested Visits Authorized [id number] Authorized Perform Procedure 07/04/2023 07/03/2024 1 1 Additional Source Comments Care Team (unrecognized sect ion and content) Care Team Personnel Name: PHYSICIAN, NONE Position: Physician Member Role: Primary Care Physician Care Team Related Persons Name: NONE, O Care Team Personnel Name: PHYSICIAN, NONE Position: Physician Member Role: Primary Care Physician Name: Anurag Saha RN Position: AO RN Member Role: ED RN Name: NEGRITA THOMAS MD Position: ED Physician Member Role: ED Physician Address: Address: [address] Care Team Related Persons Name: NONE, O Care Team Personnel Name: PHYSICIAN, NONE Position: Physician Member Role: Primary Care Physician Care Team Related Persons Name: NONE, O Name: MARILY JIMENEZ Address: Home [address] [place] [phone] Address: Temporary [address] [place] [address] [phone] Care Team Personnel Name: REBA CHIRINOS MD Member Role: Primary Care Physician Address: Address: [address] [place] [address] Name: JOSEPHINE CORTES PA-C Position: ED Physician Harvest Worker Member Role: ED PA Address: Address: [address] [place] [address] Name: KELSEY JACKSON DO Position: ED Physician Member Role: ED Physician Address: Address: [address] [place] [address] Care Team Related Persons Name: MARILY JIMENEZ Address: Home [address] [place] [phone] Address: Temporary [address] [place] [address] [phone] Care Teams (unrecognized sec tion and content) Team Status: Active Member Role Status Dates No Primary Care Physician Primary Care Provider Active Team Status: Inactive Member Role Status Dates No Primary Care Physician Primary Care Provider Active Dr. Glen Toscano , DO Emergency Provider Active Hospital Recruiter Relationship Specialty Start Date End Date Richy Lim MD [address] [place] [address] Primary Staff Physician Cardiology 08/10/23 Hospital Recruiter Relationship Specialty Start Date End Date Richy Lim MD [address] [place] [address] Primary Staff Physician Cardiology 08/10/23 Hospital Recruiter Relationship Specialty Start Date End Date Richy Lim MD [address] [place] [address] Primary Staff Physician Cardiology 08/10/23 Goals (unrecognized section and content) Goals may be documented in a n alternate section (unrecognized sect ion and content) No Status Records FoundNo Status Records FoundNo Status Records FoundNo Status Records FoundNo Status Records FoundNo Status Records Found INFORMATION SOURCE (unrecogn ized section and content) DATE CREATED AUTHOR 05/11/2023 [facility] ([place]) DATE CREATED AUTHOR AUTHOR'S ORGANIZ ATION 09/08/2023 [facility] DATE CREATED AUTHOR AUTHOR'S ORGANIZ ATION 10/15/2023 [facility] DATE CREATED AUTHOR AUTHOR'S ORGANIZ ATION 07/03/2024 [facility] DATE CREATED AUTHOR AUTHOR'S ORGANIZ ATION 09/30/2024 [facility] DATE CREATED AUTHOR AUTHOR'S ORGANIZ ATION 11/11/2024 [facility] Source Comments (unrecognize d section and content) In the event this informatio n is protected by the Federal Confidentiality of Alcohol and Drug Abuse Patient Records regulations: The Federal rules restrict any use of the information to criminally investigate or prosecute any alcohol or drug abuse patient.[facility] the event this information is protected by the Federal Confidentiality of Alcohol and Drug Abuse Patient Records regulations: The Federal rules restrict any use of the information to criminally investigate or prosecute any alcohol or drug abuse patient.[facility] the event this information is protected by the Federal Confidentiality of Alcohol and Drug Abuse Patient Records regulations: The Federal rules restrict any use of the information to criminally investigate or prosecute any alcohol or drug abuse patient.[facility] the event this information is protected by the Federal Confidentiality of Alcohol and Drug Abuse Patient Records regulations: The Federal rules restrict any use of the information to criminally investigate or prosecute any alcohol or drug abuse patient.[facility] the event this information is protected by the Federal Confidentiality of Alcohol and Drug Abuse Patient Records regulations: The Federal rules restrict any use of the information to criminally investigate or prosecute any alcohol or drug abuse patient.[facility] the event this information is protected by the Federal Confidentiality of Alcohol and Drug Abuse Patient Records regulations: The Federal rules restrict any use of the information to criminally investigate or prosecute any alcohol or drug abuse patient.[facility] the event this information is protected by the Federal Confidentiality of Alcohol and Drug Abuse Patient Records regulations: The Federal rules restrict any use of the information to criminally investigate or prosecute any alcohol or drug abuse patient.[facility] the event this information is protected by the Federal Confidentiality of Alcohol and Drug Abuse Patient Records regulations: The Federal rules restrict any use of the information to criminally investigate or prosecute any alcohol or drug abuse patient.[facility] the event this information is protected by the Federal Confidentiality of Alcohol and Drug Abuse Patient Records regulations: The Federal rules restrict any use of the information to criminally investigate or prosecute any alcohol or drug abuse patient.[facility] the event this information is protected by the Federal Confidentiality of Alcohol and Drug Abuse Patient Records regulations: The Federal rules restrict any use of the information to criminally investigate or prosecute any alcohol or drug abuse patient.[facility] the event this information is protected by the Federal Confidentiality of Alcohol and Drug Abuse Patient Records regulations: The Federal rules restrict any use of the information to criminally investigate or prosecute any alcohol or drug abuse patient.[facility] the event this information is protected by the Federal Confidentiality of Alcohol and Drug Abuse Patient Records regulations: The Federal rules restrict any use of the information to criminally investigate or prosecute any alcohol or drug abuse patient.[facility] the event this information is protected by the Federal Confidentiality of Alcohol and Drug Abuse Patient Records regulations: The Federal rules restrict any use of the information to criminally investigate or prosecute any alcohol or drug abuse patient.[facility] the event this information is protected by the Federal Confidentiality of Alcohol and Drug Abuse Patient Records regulations: The Federal rules restrict any use of the information to criminally investigate or prosecute any alcohol or drug abuse patient.[facility] the event this information is protected by the Federal Confidentiality of Alcohol and Drug Abuse Patient Records regulations: The Federal rules restrict any use of the information to criminally investigate or prosecute any alcohol or drug abuse patient.[facility] the event this information is protected by the Federal Confidentiality of Alcohol and Drug Abuse Patient Records regulations: The Federal rules restrict any use of the information to criminally investigate or prosecute any alcohol or drug abuse patient.[facility] the event this information is protected by the Federal Confidentiality of Alcohol and Drug Abuse Patient Records regulations: The Federal rules restrict any use of the information to criminally investigate or prosecute any alcohol or drug abuse patient.[facility] the event this information is protected by the Federal Confidentiality of Alcohol and Drug Abuse Patient Records regulations: The Federal rules restrict any use of the information to criminally investigate or prosecute any alcohol or drug abuse patient.[facility] the event this information is protected by the Federal Confidentiality of Alcohol and Drug Abuse Patient Records regulations: The Federal rules restrict any use of the information to criminally investigate or prosecute any alcohol or drug abuse patient.[facility] Reason for Visit (unrecogniz ed section and content) Reason Comments CoPat Start Reason Comments [facility]Pat Agency Reason Onset Date Comments Opened In Error 06/14/2023 Reason Onset Date Comments [facility] Intake 06/14/2023 Reason Comments Radio Main J1 Reason Comments Outside Lab Results Reason Comments CoPat Management Reason Comments Release Of Medical Records Reason Comments New Patient Reason Onset Date Comments [facility] follow up 06/25/2023 Reason Onset Date Comments SPP Hepatology - Medication Refill 07/05/2023 Mavy[facility] final fill Specialty Diagnoses / Procedures Referred By Contac t Referred To Contact Radiology Diagnoses Acute and subacute endocarditis, unspecified Procedures IR CVC removal OR [facility]VL MARTIN CVC W/O SUBQ [employer] Melissa Cope, FEED IN WORKER-MIGRATION AGENT [address] [place] [address] Referral ID Status Reason Start Date Expiration Date Visits Requested Visits Authorized [id number] Authorized Perform Procedure 07/04/2023 07/03/2024 1 1 Reason Onset Date Comments [facility] follow up 09/10/2023 Reason Onset Date Comments [facility] follow up 09/17/2023 Reason Comments CoPat Stop Appointment Cancelled Reason Onset Date Comments [facility] follow up 06/23/2024 FOR RECORDS PERTAINING TO PATIENTS WHO ARE OR HAVE BEEN ENROLLED IN A CHEMICAL DEPENDENCY/SUBSTANCEABUSE PROGRAM, SOME INFORMATION MAY BE OMITTED. This clinical summary was aggregated from multiple sources. Caution should be exercised in using it in the provision of clinical care. This summary normalizes information from multiple sources, and as a consequence, information in this document may materially change the coding, format and clinical context of patient data. In addition, data may be omitted in some cases. CLINICAL DECISIONS SHOULD BE BASED ON THE PRIMARY CLINICAL RECORDS. [employer] provides no warranty or guarantee of the accuracy or completeness of information in this document.
[2024-11-11 02:15] VITALS: O2SAT 96
[2024-11-11 02:22] LABS: Hematocrit 27.8 % (40-54); Hemoglobin 8.9 g/dL (13.0-16.5); Immature Granulocytes Count 0.070 X10^3/uL (0.0-0.0); Mean Corp Hgb Conc 32.0 g/dL (32-36); Mean Corpuscular Volume 90.8 fL (80-94); Mean Platelet Vol. 10.1 fl (6.2-12.0); NRBC Flagged by Analyzer 0 % (0-5); POSITIVE DIFFERENTIAL YES; POSITIVE MORPHOLOGY YES; Platelet Count 323 K/mm3 (150-450); RBC Distribution Width CV 16.7 % (11.6-14.6); RBC Distribution Width SD 55.8 fl (35.1-43.9); Red Blood Count 3.06 M/mm3 (4.6-6.2); White Blood Count 17.4 K/mm3 (4.4-11.0)
[2024-11-11 02:25] VITALS: PULSE 70; RESP 26; O2SAT 96
[2024-11-11 02:41] LABS: Differential Indicated SCAN CRITERIA MET
[2024-11-11 02:45] LABS: Prothrombin Time (Protime)PT. 14.4 SECONDS (11.7-14.9)
[2024-11-11 02:46] LABS: Partial Thromboplast Time 27.2 Seconds (24.1-36.2)
[2024-11-11 02:55] VITALS: PULSE 70; RESP 27; O2SAT 93
[2024-11-11 03:02] VITALS: BP 128/68; PULSE 70; RESP 22; O2SAT 98
--- NOTE | 2024-11-11 03:02 | EX.ED.DYSGE1 ---
HPI History of Present Illness Chief Complaint: GI Bleed Informant: patient Narrative Narrative: Was called to the room by nursing upon his arrival. Presents by private vehicle sudden hemoptysis prior to arrival. He is status post valve repair and pacemaker placement at [facility] last month. He had endocarditis in 2021. Previous history of IV drug use. No blood thinners. He states when he was in the hospital he had mild hemoptysis and was told that was normal. He denies any chest pains. Denies recent illness. Also came in hypoxic and taken right back to the room. He does smoke. After workup initiated per nursing mother called me and reported he had lung abscesses that required surgery at [facility]. Prior similar symptoms: Yes [facility] Medical History Endocarditis Home Medications ?Medication ?Instructions ?Recorded ?Last Taken ?Type aspirin 81 mg tablet,delayed 81 mg PO DAILY 11/11/24 Unknown History release (Adult Aspirin Regimen) benzonatate 100 mg capsule 200 mg PO TID 11/11/24 Unknown History cephalexin 500 mg capsule 500 mg PO TID 11/11/24 Unknown History midodrine 5 mg tablet 5 mg PO TID 11/11/24 Unknown History Allergy/AdvReac Type Severity Reaction Status Date / Time No Known Allergies Allergy Verified 10/11/23 22:46 Surgical History Heart valve replaced Social History Smoking Status: Current every day smoker tobacco type: cigarettes ROS ROS ED Constitutional Constitutional ED: Denies chills, fever(s) or sweats ENT ENT ED: Denies sore throat Cardiovascular Cardiovascular: Denies chest pain, leg edema, palpitations or racing heartbeat Respiratory/Chest Respiratory/Chest: Reports cough, dyspnea and other Details: Hemoptysis ; Denies dyspnea on exertion Gastrointestinal Gastrointestinal: Denies abdominal pain, diarrhea, nausea or vomiting Genitourinary Genitourinary ED: Denies dysuria, hematuria or urinary frequency Musculoskeletal Musculoskeletal: Denies back pain, extremity pain or neck pain Integumentary Denies rash or wounds Neurologic Neurologic: Denies headache(s), paresthesias or weakness EXAM Physical Exam Const Vital Signs: 11/11/24 01:56 07/27/25 02:15 11/11/24 02:25 Temperature 97 F L Temperature Source Temporal Pulse Rate 70 70 Respiratory Rate 24 H 26 H Blood Pressure 153/69 H Blood Pressure Mean 97 Pulse Ox 70 96 96 Oxygen Delivery Method Nasal Cannula Room Air Oxygen Flow Rate (L/min) 4 11/11/24 02:55 11/11/24 03:02 Temperature Temperature Source Pulse Rate 70 70 Respiratory Rate 27 H 22 H Blood Pressure 128/68 H Blood Pressure Mean 88 Pulse Ox 93 98 Oxygen Delivery Method Room Air Room Air Oxygen Flow Rate (L/min) Positive well nourished and well developed Constitutional Narrative: Vent mask with his initial hypoxia, there was blood around his mouth occasional coughing with hemoptysis. General Appearance ED: well developed and NAD HEENT Reports moist mucous membranes normocephalic and atraumatic Eyes General Eye ED: Yes normal appearance of both eyes Neck full ROM Chest Wall Chest Narrative: Midline chest scar, left upper chest pacemaker device with wound healing appropriately. Chest: Negative for tenderness Resp normal respiratory effort and normal air movement Resp Narrative: Symmetric breath sounds. Effort and Inspection: symmetric chest movement; Negative for respiratory distress Cardio regular rate, regular rhythm and no murmurs Peripheral Pulses: pulses 2+ throughout GI normal to inspection, nondistended, normoactive bowel sounds and non-tender Palpation: Negative for guarding or rebound tenderness present Extremity normal to inspection General Extremety ED: Negative for edema or tenderness General Extremity: Negative for edema Neuro oriented x3 and no sensory deficits noted Sensorium / Orientation: awake and alert Skin Skin Narrative: See above MDM MDM MDM Narrative Medical decision making narrative: Interventions / MDM: Differential diagnosis: Hemoptysis, history of reported lung abscesses, status post valve repair, status post pacemaker Diagnosis considered but do not suspect: N/A My EKG interpretation: Paced rhythm rate of 70 no acute findings. Imaging independently reviewed and interpreted by myself: CT angiogram chest: No PE. Right cavitary lesion, pulmonary artery aneurysms. External documents reviewed: N/A Test considered but not ordered:N/A ED course: Patient continued on oxygen, sudden hemoptysis with recent surgery. He was hypoxic, continued Ventimask at this time. Recent surge of mopped assist, CT angiogram chest ordered along with labs. EKG with a paced rhythm. 0315: Reevaluation patient removed his oxygen and he is 97% room air. He confirms that after his valve repair and pacemaker placement he developed hemoptysis had a bronchoscopy finding the abscesses. He is on antibiotics for total of 90 days he states he approximately 80 days left. He is followed by infectious disease and cardiothoracic surgery. 0355: CT scan negative for PE. However airspace disease noted could be hemorrhage. There are 2 cavitary changes in the right lung. 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 Followed closely by Mary with cardiothoracic. We do not have cardiothoracic or pulmonary here. Discussed with patient plans of transfer. He states he has not coughed up blood since he came in and has happened before. I discussed the risks is his hypoxia leading to cardiac arrest. He understands this. Edition his hemoglobin is 8.9 1 year ago was 15, he has had a recent hospitalization for 6 weeks with blood loss. He does not want to be transferred or admitted. He is alert and oriented capable of making decisions. He understands the risk. He will sign out against medical advice. Re-evaluation: Alert and oriented x 3, off oxygen no respiratory distress. Disposition discussed with patient/family/significant other: Patient Case discussed with consulting clinician: N/A This note was generated with [employer] dictation software. It may contain incorrect words, spelling, and punctuation that were not noted in checking the note before signing. Lab Data Attestation: I reviewed the patient's lab results. Labs: Laboratory Results - last 24 hr 11/11/24 02:05 WBC 17.4 H RBC 3.06 L Hgb 8.9 L Hct 27.8 L MCV 90.8 MCH 29.1 MCHC 32.0 RDW Std Deviation 55.8 H RDW Coeff of [place] 16.7 H Plt Count 323 MPV 10.1 Immature Gran % (Auto) 0.400 Neut % (Auto) 50.0 Lymph % (Auto) 41.9 H [place] % (Auto) 6.0 Eos % (Auto) 1.3 Baso % (Auto) 0.4 Absolute Neuts (auto) 8.7 H Absolute Lymphs (auto) 7.28 H Nucleated RBC % 0 Differential Comment SCANNED Platelet Estimate ADEQUATE Anisocytosis 1+ Acanthocytes (Spur) 1+ PT 14.4 INR 1.1 APTT 27.2 Sodium 138 Potassium 3.3 Chloride 103 Carbon Dioxide 18.6 L Anion Gap 17 H BUN 22 H Creatinine 1.00 Estim Creat Clear Calc 89.42 Est GFR (MDRD) Non-Af 105 BUN/Creatinine Ratio 21.7 H Glucose 144 H Calcium 10.0 Radiography Diagnostic Testing: Clinical Impression(s) from Imaging Studies Chest CTA 11/11/24 02:05 IMPRESSION: Multiple, bilateral, [id number]-right pulmonary artery aneurysms, 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 Bilateral areas of airspace disease, some of which may represent airspace hemorrhage. There are cavitary changes in 2 right lung regions of rounded airspace disease. No pulmonary thromboembolism. No dissection. 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 Operator, Discussing w/Consultants, Performing Direct Patient Care at Bedside and - (30 minutes) Discharge Plan Triage Chief Complaint: GI Bleed ED Provider: Corey Rosas Dx/Rx/DC Orders Clinical Impression: Hemoptysis, Hx of abscess of lung, Status post aortic valve repair, Pacemaker, Hypoxia, Anemia Instructions: Anemia, ED Hemoptysis Prescriptions: No Action aspirin [Adult Aspirin Regimen] 81 mg tablet,delayed release (DR/EC) 81 mg PO DAILY midodrine 5 mg tablet 5 mg PO TID benzonatate 100 mg capsule 200 mg PO TID cephalexin 500 mg capsule 500 mg PO TID Primary Care Provider: Care Physician,No Primary Referrals: Care Physician,No Primary [Primary Care Provider] - Activity Restrictions/Additional Instructions: Your CT scan negative for pulmonary embolism. Areas of hemorrhage and cavitary lesion. You have reported history of lung abscesses with your valve repair and pacemaker. You are anemic hemoglobin 8.9. You were hypoxic on arrival. Recommendations for you to be transferred over to [facility] with your specialist. You declined this. You are signing AGAINST MEDICAL ADVICE. If you change your mind, return to the ED here for reevaluation or go to [facility] to be evaluated. Print Language: Icelandic Disposition Disposition: Against Medical Advice Discharge Date/Time: 11/11/24 04:08
[2024-11-11 03:06] LABS: Anion Gap 17 (5-15); BUN 22 mg/dL (4-19); BUN/Creat Ratio 21.7 RATIO (10-20); Calcium,Total 10.0 mg/dL (7.6-11.0); Carbon Dioxide 18.6 mmol/L (21.0-32.0); Chloride 103 mmol/L (98-108); Estimated Creatinine Clearance 89.42 ml/min (50-250); Glucose 144 mg/dL (70-99); Potassium 3.3 mmol/L (3.3-5.1)
[2024-11-11 03:37] LABS: Acanthocytes 1+; Anisocytosis 1+; Differential Comment SCANNED
== END 2024-11-11 04:08 | disposition left against medical advice (07) ==
PROVIDERS: Emergency Provider Emergency Medicine; Visit Provider Emergency Medicine
DX: R04.2 Hemoptysis (principal); D64.9 Anemia, unspecified; R09.02 Hypoxemia; Z95.2 Presence of prosthetic heart valve; Z87.09 Personal history of other diseases of the respiratory system; Z95.0 Presence of cardiac pacemaker; F17.210 Nicotine dependence, cigarettes, uncomplicated
CPT/HCPCS: 71275; 80048; 85025; 85610; 85730; 93005; 99284; Q9967; A4216